=== PATIENT | female | born 1950 | race Caucasian/White ===

== ENCOUNTER 2017-03-27 18:02 | Inpatient (IN) | payer MEDICARE, MEDICAID ==
[~2017-03-27] VITALS: Ht 167.6 cm; Wt 123.9 kg
[2017-03-27] VITALS (7 sets, daily range): BP systolic 123–165; BP diastolic 65–103
[~2017-03-27 18:02] MED LIST: AC500T PO; ALPR.25T PO; AMLO10TA82 PO; AMLO5TAB2 PO; AMOX-355 PO; ASP81CT PO; ATR20T PO; AZTH250C PO; BACL10TA PO; BSC10SU PR; BTH10T PO; BUDE10.2 IH; CALC-250 PO; CHOL10003 PO; CINN500C2 PO; CITA10TA12 PO; CITA40TA19 PO; CLOP75TA PO; CRAN500T2 PO; HYDR-3812 PO; HYDR118S10 PO; INSU100I29 SQ; INSU100V16 SQ; LIRA0.6P SQ; LISI40TA PO; LUBI24CA7 PO; MAGN-47 PO; MELA1TAB10 PO; METF500T PO; METO-395 PO; NA P133E35 PR; NEBI20TA2 PO; NFNEB10T PO; NIAC500T29 PO; OMEG-109 PO; OMEG1CAP58 PO; ONDN4T PO; PANT40SU PO; PANT40TA3 PO; POLY17PO23 GT; SAXA2.5T PO; VALE530C PO; VITA150T PO; ZINC56CR2 TP; ZLP10T PO; [UNRECOGNIZED DRUG - CODE] PO; [UNRECOGNIZED DRUG - CODE] PO; [UNRECOGNIZED DRUG - OTHER] PO
[2017-03-27] MEDS ORDERED: RT-ALBUTEROL/IPRATROPIUM 3 ML (DUONEB) VIAL ONE (18:29)
[2017-03-27] MEDS ORDERED: ONDANSETRON 4 MG/2 ML (SDV) Z0FRAN IVP ONE (18:30)
[2017-03-27 18:34] LABS: BASOPHILS # (AUTO) 0.1 10^3/uL (0.0-0.1); BASOPHILS % (AUTO) 1 % (0-10); EOSINOPHILS # (AUTO) 0.3 10^3/uL (0.0-0.3); EOSINOPHILS % (AUTO) 2 % (0-10); LYMPHOCYTES # (AUTO) 6.7 X 10^3 (1.0-4.0); LYMPHOCYTES % (AUTO) 35 % (12-44); MEAN CORPUSCULAR HEMOGLOBIN 23 PG (25-34); MEAN CORPUSCULAR HGB CONC 31 G/DL (32-36); MEAN CORPUSCULAR VOLUME 76 FL (80-99); MEAN PLATELET VOLUME 9.5 FL (7.4-10.4); MONOCYTES # (AUTO) 1.6 X 10^3 (0.0-1.0); MONOCYTES % (AUTO) 9 % (0-12); NEUTROPHILS # (AUTO) 10.2 X 10^3 (1.8-7.8); NEUTROPHILS % (AUTO) 54 % (42-75); PLATELET COUNT 313 10^3/uL (130-400)
[2017-03-27 18:45] LABS: ABG HCO3 20 MMOL/L (23-27); ABG OXYGEN SATURATION 99 % (94-100); ABG PCO2 53 MMHG (35-45); ABG PO2 195 MMHG (79-93); ABG TCO2 21.5 MMOL/L (21.0-31.0)
[2017-03-27] MEDS ORDERED: RT-ALBUTEROL/IPRATROPIUM 3 ML (DUONEB) VIAL INH ONE (18:45)
[2017-03-27 18:46] LABS: ALANINE AMINOTRANSFERASE 155 U/L (0-55); ALBUMIN 3.8 GM/DL (3.2-4.5); ANION GAP 17 MMOL/L (5-14); ASPARTATE AMINO TRANSFERASE 218 U/L (5-34); BILIRUBIN,TOTAL 0.4 MG/DL (0.1-1.0); BLOOD UREA NITROGEN 18 MG/DL (7-18); BUN/CREATININE RATIO 11; CARBON DIOXIDE 16 MMOL/L (21-32); CHLORIDE 99 MMOL/L (98-107); CREATININE SERUM 1.58 MG/DL (0.60-1.30); GFR ESTIMATED 33; GLUCOSE 327 MG/DL (70-105); MAGNESIUM 2.1 MG/DL (1.8-2.4); POTASSIUM 4.5 MMOL/L (3.6-5.0); SODIUM 132 MMOL/L (135-145); TOTAL PROTEIN 8.3 GM/DL (6.4-8.2)
--- NOTE | 2017-03-27 18:46 | Diagnostic Imaging Report ---
EXAM: Chest 1 view, AP/PA only. INDICATION: CODE BLUE. COMPARISON: Chest radiograph from 04/09/2016. FINDINGS: Low lung volumes. Cardiomegaly. Normal central pulmonary vascularity. Mild atelectasis or infiltrate in the medial right lung base. No definite pleural effusion. No pneumothorax. No acute osseous findings. IMPRESSION: 1. Cardiomegaly, similar to the prior exam. Normal pulmonary vascularity. 2. Mild atelectasis or infiltrate in the medial right lung base. Dictated by: Dictated on workstation # [id number]
[2017-03-27 18:47] LABS: BAND NEUTROPHILS 0 %; BASOPHILS % (MANUAL) 0 %; EOSINOPHILS % (MANUAL) 1 %; LYMPHOCYTES % (MANUAL) 52 %; NEUTROPHILS % (MANUAL) 47 %
[2017-03-27 18:47] LABS: ALLENS TEST YES-POS; PATIENT TEMP 98
[2017-03-27 18:52] LABS: TROPONIN I < 0.30 NG/ML (<0.30)
[2017-03-27] MEDS ORDERED: NS IV 1000 ML 1,000 ML IV ONE (19:07)
[2017-03-27 19:57] LABS: ABG BASE EXCESS -2.9 MMOL/L (-2.5-2.5); ABG HCO3 22 MMOL/L (23-27); ABG OXYGEN SATURATION 99 % (94-100); ABG PCO2 44 MMHG (35-45); ABG PO2 121 MMHG (79-93); ABG TCO2 23.6 MMOL/L (21.0-31.0)
[2017-03-27 19:59] LABS: ABG PH 7.33 (7.37-7.43); ALLENS TEST YES-POS
[2017-03-27 20:07] LABS: BILIRUBIN,URINE NEGATIVE (NEGATIVE); KETONES,URINE NEGATIVE (NEGATIVE); LEUKOCYTE ESTERASE ,URINE NEGATIVE (NEGATIVE); NITRITE,URINE NEGATIVE (NEGATIVE); PH,URINE 5 (5-9); PROTEIN,URINE 3+ (NEGATIVE); UROBILINOGEN,URINE NORMAL (NORMAL)
--- NOTE | 2017-03-27 20:14 | ED General ---
General Chief Complaint: Unresponsive Stated Complaint: CODE BLUE Nursing Triage Note: PT BROUGHT TO ED FROM [facility] WITH C/O CHOKING AND UNRESPONSIVE WHILE EATING. UPON ARRIVAL TO ED, PT IS RESPONSIVE TO PAINFUL STIMULI AND IS BREATHING WITH ASSISTANCE PER BVM. Nursing Sepsis Screen: No Definite Risk Source of Information: Patient Exam Limitations: No Limitations History of Present Illness Time Seen by Provider: 18:03 Initial Comments This 66-year-old woman presents to the emergency room via EMS after having an [facility]responsive episode at the [facility]. She was at the supper table when she suddenly became unresponsive. When EMS arrived the patient had a pulse but was not breathing. BVM assistance with ventilation was started as they did not yet know patient's CODE STATUS. Patient was later found to have a DO NOT RESUSCITATE order. Upon arrival she was still requiring BVM ventilation and was minimally responsive. Patient gradually became more alert and eventually was able to talk. Initial cause of her unresponsive episode was uncertain. Fingerstick blood sugar was elevated. Allergies and Home Medications Allergies Coded Allergies: sulfamethoxazole (Verified Allergy, Unknown, 04/09/16) trimethoprim (Verified Allergy, Unknown, 04/09/16) Home Medications Acetaminophen 500 Mg Tablet, 1,000 MG PO Q6H PRN for headache/fever, (Reported) take 2 (500mg) tabs Amlodipine Besylate 5 Mg Tablet, 5 MG PO DAILY, (Reported) Amoxicillin/Potassium Clav 1 Each Tablet, 1 TAB PO BID for 7 Days, Ref 1 Prescribed by: SULMA HICKMAN on 04/16/16 1141 Atorvastatin 20 Mg Tablet, 20 MG PO HS, (Reported) Bethanechol Chloride 10 Mg Tablet, 10 MG PO BID, (Reported) Bisacodyl 10 Mg Supp, 10 MG [place] DAILY PRN for CONSTIPATION, (Reported) PRN Budesonide/Formoterol Fumarate 10.2 Gm Hfa.aer.ad, 2 PUFF IH BID, (Reported) Cholecalciferol 5,000 Unit Capsule, 5,000 UNIT PO HS, (Reported) Cinnamon Bark 500 Mg Capsule, 500 MG PO DAILY, (Reported) Citalopram Hydrobromide 10 Mg Tablet, 10 MG PO DAILY, (Reported) Cranberry Extract 500 Mg Tablet, 1,000 MG PO DAILY, (Reported) take 2 (500mg) tabs Hydrocodone/Acetaminophen 1 Each Tablet, 1-2 TAB PO Q4H PRN for PAIN, #40 Ref 0 Prescribed by: SULMA HICKMAN on 04/16/16 1141 Insulin Aspart 100 Unit/1 Ml Susp, 0 SQ TIDAC, (Reported) sliding scale A Insulin Detemir 100 Unit/1 Ml Insuln.pen, 65 UNIT SQ HS, (Reported) Liraglutide 0.6 Mg/0.1 Ml Pen.injctr, 1.8 MG SQ DAILY, (Reported) Magnesium Hydroxide 400 Mg/5 Ml Oral.susp, 400 MG PO DAILY PRN for CONSTIPATION, (Reported) PRN Melatonin/Pyridoxine 1 Each Tablet, 3 MG PO HS, (Reported) Methylsulfonylmethane 1,000 Mg Tablet, 2,000 MG PO HS, (Reported) take 2 (1,000mg) tab Metoprolol Succinate 100 Mg Tab.er.24h, 100 MG PO DAILY, (Reported) Multivits W-Fe,Other Min/Lut 1 Each Tablet, 1 EACH PO TID, (Reported) Niacin 500 Mg Tablet.er, 500 MG PO HS, (Reported) Shiro-3 Fatty Acids/Fish Oil 1 Each Capsule, 1,200 MG PO DAILY, (Reported) Pantoprazole Sodium 40 Mg Tablet.dr, 40 MG PO DAILY, (Reported) Saxagliptin HCl 2.5 Mg Tablet, 2.5 MG PO DAILY, (Reported) Valerian Root 450 Mg Capsule, 450 MG PO DAILY PRN for ANXIETY, (Reported) Vitamin B Complex & Vit C No.4 150 Mg Tablet, 150 MG PO DAILY, (Reported) Zinc Oxide 60 Gm Cream..g., 2 GM TP PRN PRN for RASH, (Reported) apply to buttocks for gaulding/redness [comfortone] , 3 TAB PO HS, (Reported) Constitutional: see HPI EENTM: no symptoms reported Respiratory: see HPI Cardiovascular: see HPI Gastrointestinal: no symptoms reported Genitourinary: no symptoms reported Musculoskeletal: no symptoms reported Skin: no symptoms reported Psychiatric/Neurological: See HPI, Other (left-sided paralysis from prior stroke) Hematologic/Lymphatic: No Symptoms Reported Immunological/Allergic: no symptoms reported Past Shkztxr-Hmfhxc-Fxfhta Hx Patient Social History Alcohol Use: Denies Use Recreational Drug Use: No Smoking Status: Former Smoker 2nd Hand Smoke Exposure: No Recent Foreign Travel: No Contact w/Someone Who Travel: No Recent Infectious Disease Expo: No Recent Hopitalizations: No Surgeries HX Surgeries: Yes (NASAL SX, RT TKR, FOOT SX) Respiratory Hx Respiratory Disorders: Yes Respiratory Disorders: Sleep Apnea, COPD Cardiovascular Hx Cardiac Disorders: Yes Cardiac Disorders: Coronary Artery Disease (nonobstructive disease per prior catheter), High Cholesterol Neurological Hx Neurological Disorders: Yes Neurological Disorders: Stroke (with left-sided paralysis) 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 System : No Hx 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 Disorders: No Genitourinary Hx Genitourinary Disorders: No (HX OF KIDNEY FAILURE IN 2012) Genitourinary Disorders: Kidney Stones Gastrointestinal Hx Gastrointestinal Disorders: Yes Gastrointestinal Disorders: Hemorrhoids Musculoskeletal Hx Musculoskeletal Disorders: Yes (LT SIDE WEAKNESS FROM STROKE) Endocrine Hx Endocrine Disorders: Yes Endocrine Disorders: Diabetes, Insulin dep HEENT HX ENT Disorders: No (FULL SET OF DENTURES) Cancer Hx Cancer: No Psychosocial Hx Psychiatric Problems: No Integumentary HX Skin/Integumentary Disorder: No Blood Transfusions Hx Blood Disorders: No Physical Exam Vital Signs Vital Sign - Last 12Hours 03/27/17 03/27/17 18:02 18:44 Temp 98.0 Pulse 90 Resp 22 B/P (MAP) 154/92 Pulse Ox 94 O2 Delivery Ambu Bag O2 Flow Rate 10.00 Capillary Refill : Less Than 3 Seconds General Appearance: No Apparent Distress, WD/WN HEENT: PERRL/EOMI, Normal ENT Inspection, Pharynx Normal, Other (difficulty with speech, dysarthria) Neck: Normal Inspection Respiratory: Lungs Clear, Normal Breath Sounds, No Accessory Muscle Use, No Respiratory Distress Cardiovascular: Regular Rate, Rhythm, No Edema, No Murmur Gastrointestinal: Normal Bowel Sounds, Non Tender, Soft Extremity: Normal Inspection, No Pedal Edema Neurologic/Psychiatric: Alert, Oriented x3, is/it 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 manager II-XII Norm as Tested Skin: Normal Color, Warm/Dry Focused Exam Lactic Acid Level Progress/Results/Core Measures Results/Orders Lab Results Laboratory Tests Test 03/27/17 18:04 03/27/17 18:08 03/27/17 18:20 03/27/17 19:47 Range/Units White Blood Count 19.0 H 4.3-11.0 10^3/uL Red Blood Count 4.90 4.35-5.85 10^6/uL Hemoglobin 11.4 L 11.5-16.0 G/DL Hematocrit 37 35-52 % Mean Corpuscular Volume 76 L 80-99 FL Mean Corpuscular Hemoglobin 23 L 25-34 PG Mean Corpuscular Hemoglobin Concent 31 L 32-36 G/DL Red Cell Distribution Width 16.0 H 10.0-14.5 % Platelet Count 313 130-400 10^3/uL Mean Platelet Volume 9.5 7.4-10.4 FL Neutrophils (%) (Auto) 54 42-75 % Lymphocytes (%) (Auto) 35 12-44 % Monocytes (%) (Auto) 9 0-12 % Eosinophils (%) (Auto) 2 0-10 % Basophils (%) (Auto) 1 0-10 % Neutrophils # (Auto) 10.2 H 1.8-7.8 X 10^3 Lymphocytes # (Auto) 6.7 H 1.0-4.0 X 10^3 Monocytes # (Auto) 1.6 H 0.0-1.0 X 10^3 Eosinophils # (Auto) 0.3 0.0-0.3 10^3/uL Basophils # (Auto) 0.1 0.0-0.1 10^3/uL Neutrophils % (Manual) 47 % Lymphocytes % (Manual) 52 % Monocytes % (Manual) 0 % Eosinophils % (Manual) 1 % Basophils % (Manual) 0 % Band Neutrophils 0 % Blood Morphology Comment NORMAL Sodium Level 132 L 135-145 MMOL/L Potassium Level 4.5 3.6-5.0 MMOL/L Chloride Level 99 98-107 MMOL/L Carbon Dioxide Level 16 L 21-32 MMOL/L Anion Gap 17 H 5-14 MMOL/L Blood Urea Nitrogen 18 7-18 MG/DL Creatinine 1.58 H 0.60-1.30 MG/DL Estimat Glomerular Filtration Rate 33 BUN/Creatinine Ratio 11 Glucose Level 327 H 70-105 MG/DL Calcium Level 9.0 8.5-10.1 MG/DL Magnesium Level 2.1 1.8-2.4 MG/DL Total Bilirubin 0.4 0.1-1.0 MG/DL Aspartate Amino Transf (AST/SGOT) 218 H 5-34 U/L Alanine Aminotransferase (ALT/SGPT) 155 H 0-55 U/L Alkaline Phosphatase 159 H 40-136 U/L Troponin I < 0.30 <0.30 NG/ML Total Protein 8.3 H 6.4-8.2 GM/DL Albumin 3.8 3.2-4.5 GM/DL Glucometer 326 H 70-110 MG/DL Blood Gas Puncture Site right radial RT RAD Blood Gas Patient Temperature 98 98.0 Arterial Blood pH 7.20 *L 7.33 *L 7.37-7.43 Arterial Blood Partial Pressure CO2 53 H 44 35-45 MMHG Arterial Blood Partial Pressure O2 195 H 121 H 79-93 MMHG Arterial Blood HCO3 20 L 22 L 23-27 MMOL/L Arterial Blood Total CO2 21.5 23.6 21.0-31.0 MMOL/L Arterial Blood Oxygen Saturation 99 99 94-100 % Arterial Blood Base Excess -7.0 L -2.9 L -2.5-2.5 MMOL/L Jai Test YES-POS YES-POS Blood Gas Ventilator Setting NO NO Blood Gas Inspired Oxygen 100% 60% Test 03/27/17 20:00 03/27/17 20:25 03/27/17 22:17 03/27/17 23:18 Range/Units Urine Color YELLOW Urine Clarity SLIGHTLY CLOUDY Urine pH 5 5-9 Urine Specific [place] 1.020 1.016-1.022 Urine Protein 3+ H NEGATIVE Urine Glucose (UA) 3+ H NEGATIVE Urine Ketones NEGATIVE NEGATIVE Urine Nitrite NEGATIVE NEGATIVE Urine Bilirubin NEGATIVE NEGATIVE Urine Urobilinogen NORMAL NORMAL MG/DL Urine Leukocyte Esterase NEGATIVE NEGATIVE Urine RBC (Auto) 2+ H NEGATIVE Urine RBC 5-10 H /HPF Urine WBC 0-2 /HPF Urine Crystals PRESENT H /LPF Urine Amorphous Sediment FEW ELISHA URATES H /LPF Urine Bacteria TRACE /HPF Urine Casts NONE /LPF Urine Mucus NEGATIVE /LPF Urine Culture Indicated NO Lactic Acid Level 1.96 0.50-2.00 MMOL/L Glucometer 271 H 262 H 70-110 MG/DL My Orders Orders - SAMINA HOWARD MD Ondansetron Injection (Zofran Injectio (03/27/17 18:30) Cbc With Automated Diff (03/27/17 18:27) Comprehensive Metabolic Panel (03/27/17 18:27) Magnesium (03/27/17 18:27) Troponin I (03/27/17 18:27) Ua Culture If Indicated (03/27/17 18:) Accucheck Stat ONCE (03/27/17 18:) Saline Lock/Iv-Start (03/27/17 18:27) Ekg Tracing (03/27/17 18:27) O2 (03/27/17 18:27) Monitor-Rhythm Ecg Trace Only (03/27/17 18:27) Chest 1 View, Ap/Pa Only (03/27/17 18:27) Manual Differential (03/27/17 18:04) Albuterol/Ipra Inhalation Soln (Duoneb I (03/27/17 18:29) Arterial Blood Gas (03/27/17 18:39) Albuterol/Ipra Inhalation Soln (Duoneb I (03/27/17 18:45) Aguiar Cath Insertion (03/27/17 18:52) Ns Iv 1000 Ml (Sodium Chloride 0.9%) (03/27/17 19:07) Arterial Blood Gas (03/27/17 19:33) Arterial Blood Gas (03/27/17 19:48) Blood Culture (03/27/17 20:14) Lactic Acid Analyzer (03/27/17 20:14) Piperacillin Sodium/Tazobactam (Zosyn Vi (03/27/17 20:45) Ketorolac Injection (Toradol Injection) (03/27/17 20:45) Medications Given in ED Current Medications Medications Dose Ordered Sig/Helen Route Start Time Stop Time Status Last Admin Dose Admin Albuterol/ Ipratropium 3 ml ONCE ONCE INH 03/27/17 18:45 03/27/17 20:48 DC 03/27/17 18:43 3 ML Ketorolac Tromethamine 15 mg ONCE ONCE IVP 03/27/17 20:45 03/27/17 20:46 DC 03/27/17 21:08 15 MG Piperacillin Sod/ Tazobactam Sod 4.5 gm/Sodium Chloride 100 ml @ 200 mls/hr ONCE ONCE IV 03/27/17 20:45 03/27/17 21:14 DC 03/27/17 21:07 200 MLS/HR Sodium Chloride 1,000 ml @ 0 mls/hr Q0M ONCE IV 03/27/17 19:07 03/27/17 19:08 DC 03/27/17 19:12 0 MLS/HR Vital Signs/I&O Vital Sign - Last 12Hours 03/27/17 03/27/17 03/27/17 03/27/17 18:02 18:02 18:44 18:49 Temp 98.0 Pulse 90 93 Resp 23 B/P (MAP) 154/92 Pulse Ox 94 66 100 100 O2 Delivery Ambu Bag Room Air Non Rebreather O2 Flow Rate 10.00 03/27/17 03/27/17 03/27/17 03/27/17 18:55 21:02 21:03 21:08 Temp 98.7 98.7 Pulse 87 84 83 Resp 22 20 20 Pulse Ox 60 60 100 O2 Delivery NIV Bilevel 03/27/17 03/27/17 03/27/17 03/27/17 21:19 21:23 21:23 21:38 Temp 98.1 Pulse 85 85 85 Resp 16 B/P (MAP) 147/89 132/76 Pulse Ox 95 92 93 O2 Delivery Nasal Cannula Nasal Cannula Nasal Cannula O2 Flow Rate 4.00 3.50 3.50 03/27/17 03/27/17 03/27/17 03/27/17 21:45 22:00 22:00 22:08 Pulse 86 86 Resp 16 B/P (MAP) 145/65 151/68 Pulse Ox 93 95 93 93 O2 Delivery Nasal Cannula Nasal Cannula Nasal Cannula Nasal Cannula O2 Flow Rate 3.50 3.50 3.50 3.50 03/27/17 03/27/17 03/27/17 03/27/17 22:30 22:50 23:00 23:30 Pulse 87 87 95 Resp 22 B/P (MAP) 123/103 150/83 165/75 Pulse Ox 93 95 97 94 O2 Delivery Nasal Cannula Nasal Cannula Nasal Cannula Nasal Cannula O2 Flow Rate 3.50 4.00 3.50 3.50 03/28/17 03/28/17 03/28/17 03/28/17 00:00 00:00 00:30 01:00 Pulse 96 99 101 Resp 22 23 19 B/P (MAP) 170/90 149/78 150/76 Pulse Ox 95 95 95 95 O2 Delivery Nasal Cannula Nasal Cannula Nasal Cannula Nasal Cannula O2 Flow Rate 3.50 3.50 3.50 3.50 03/28/17 03/28/17 03/28/17 01:00 02:00 02:06 Pulse 88 98 Resp 21 B/P (MAP) 147/72 Pulse Ox 94 94 O2 Delivery Nasal Cannula Nasal Cannula O2 Flow Rate 3.50 3.00 Blood Pressure Mean: 112 Point of Care Testing Finger Stick Blood Glucose: 326 ECG Initial ECG Impression Date: Mar 27, 2017 Initial ECG Impression Time: 18:23 Initial ECG Rate: 87 Initial ECG Rhythm: Normal Sinus Initial ECG Intervals: Normal Initial ECG Impression: Normal Comment Normal sinus rhythm with no ST elevation or depression. No abnormal intervals or axis deviation. Diagnostic Imaging Diagonstic Imaging: Xray Plain Films/CT/US/NM/MRI: chest Comments Chest x-ray viewed by me and report reviewed. See report below: NAME: MIRIAM R[facility]RIGUES [facility] REC#: [id number] PT STATUS: REG ER : 1950 PHYSICIAN: SAMINA HOWARD MD ADMIT DATE: 03/27/17/ER Draft Date of Exam:03/27/17 CHEST 1 VIEW, AP/PA ONLY EXAM: Chest 1 view, AP/PA only. INDICATION: CODE BLUE. COMPARISON: Chest radiograph from 04/09/2016. FINDINGS: Low lung volumes. Cardiomegaly. Normal central pulmonary vascularity. Mild atelectasis or infiltrate in the medial right lung base. No definite pleural effusion. No pneumothorax. No acute osseous findings. IMPRESSION: 1. Cardiomegaly, similar to the prior exam. Normal pulmonary vascularity. 2. Mild atelectasis or infiltrate in the medial right lung base. Dictated on workstation # [id number] Dict: 03/27/17 1843 Trans: 03/27/17 1846 [facility] [id number] Interpreted by: DELICIA PUENTES MD Critical Care Note Critical Care Start Time: 18:03 Stop Time: 21:03 Progress Patient gradually became more alert and was eventually alert and oriented 3. She was eventually able to state that she did choke at the time of the episode. Patient received a liter of IV fluids. Blood cultures and lactic acid are being drawn due to leukocytosis. A dose of Zosyn will be administered as aspiration cannot be ruled out. Patient seems to believe she choked at the [facility] and family reports Heimlich maneuver and chest compressions were performed either by [facility] staff for law-enforcement/fire on scene. A DuoNeb treatment was administered and patient was placed on BiPAP. Patient was trialed off of BiPAP but eventually desaturated. BiPAP was continued. Repeat ABG showed improvement in blood gases. I had a lengthy conversation about her DO NOT RESUSCITATE order with the patient and DURABLE POWER OF INFORMATION SECURITY RISK ANALYST which is her son. Patient wishes to retract the DO NOT RESUSCITATE. Departure Communication Time/Spoke to Admitting Phy: 20:53 Communication Case reviewed with Dr. Mendiola. She requested admission to the ICU with continuation of Zosyn and scheduled nebulizer treatments. She also requested inhaled budesonide. Systemic steroids will be avoided for the time being due to diabetes. BiPAP will be continued with adjustment to response. Blood sugars will be monitored and sliding scale insulin ordered. Patient is requesting something for pain due to chest wall pain from the compressions. A 15 mg dose of Toradol will be given initially for initial therapy. Narcotics will be avoided to hopefully prevent respiratory suppression. Diet will be kept nothing by mouth except for ice chips. Patient has retracted her DO NOT RESUSCITATE and wishes to be full code. Bridging orders have been written per this discussion. Impression Impression: Primary Impression: Respiratory arrest Additional Impressions: Unresponsive episode Elevated transaminase level Acute renal failure Qualified Codes: N17.9 - Acute kidney failure, unspecified Leukocytosis Qualified Codes: D72.829 - Elevated white blood cell count, unspecified Aspiration into airway Qualified Codes: T17.908A - Unspecified foreign body in respiratory tract, part unspecified causing other injury, initial encounter Chest wall pain Disposition: ADMITTED INPATIENT Condition: Improved Departure-Patient Inst. Referrals: MARIAN BRANDT MD (PCP/Family) Primary Care Physician SAMINA HOWARD MD Mar 27, 2017 20:14
[2017-03-27 20:16] LABS: WBC,URINE 0-2 /HPF
[2017-03-27] MEDS ORDERED: KETOROLAC 30 MG/ML VIAL IVP ONE (20:45)
[2017-03-27] MEDS ORDERED: PIPERACILLIN SODIUM/TAZOBACTAM 4.5 GM in NS (IVPB) 100 ML IV ONE (20:45)
[2017-03-27] MEDS ORDERED: RT-ALBUTEROL/IPRATROPIUM 3 ML (DUONEB) VIAL INH PRN ×2 (22:00→23:59)
[2017-03-27] MEDS ORDERED: NS IV 1000 ML 1,000 ML IV SCH (22:00)
[2017-03-27] MEDS ORDERED: inSUlin (REGULAR) HUMAN 1 UNIT/0.01 ML (CHARGE PER UNIT) SC SCH (22:00)
[2017-03-27] MEDS ORDERED: PANTOPRAZOLE 40 MG/10 ML (PROTONIX) VIAL IV ONE (22:00)
[2017-03-27] MEDS: RT-ALBUTEROL/IPRATROPIUM 3 ML (DUONEB) VIAL INH SCH (22:08)
[2017-03-27] MEDS ORDERED: PANTOPRAZOLE 40 MG/10 ML (PROTONIX) VIAL ONE (22:08)
[2017-03-27] MEDS ORDERED: ONDANSETRON 4 MG/2 ML (SDV) Z0FRAN IV PRN (22:15)
[2017-03-27] MEDS ORDERED: PIPERACILLIN/TAZOBACTAM 4.5 GM/NS100 ML IVPB IV ONE ×2 (22:15)
[2017-03-27] MEDS: PANTOPRAZOLE 40 MG/10 ML (PROTONIX) VIAL IV SCH (22:20)
[2017-03-27] MEDS: NS IV 1000 ML 1,000 ML IV SCH (22:22)
[2017-03-27] MEDS ORDERED: RT-BUDESONIDE NEBS 0.5 MG/2ML (PULMICORT) AMP ONE (22:42)
[2017-03-28] VITALS (23 sets, daily range): BP systolic 100–170; BP diastolic 42–92
[2017-03-28] MEDS: KETOROLAC 15 MG/ML VIAL IVP PRN ×4 (00:18→22:06)
[2017-03-28] MEDS: inSUlin (REGULAR) HUMAN 1 UNIT/0.01 ML (CHARGE PER UNIT) SC SCH ×3 (01:02→08:18)
[2017-03-28] MEDS: RT-ALBUTEROL/IPRATROPIUM 3 ML (DUONEB) VIAL INH SCH ×6 (02:06→22:13)
[2017-03-28 03:55] LABS: BASOPHILS % (AUTO) 0 % (0-10); EOSINOPHILS % (AUTO) 0 % (0-10); LYMPHOCYTES # (AUTO) 1.3 X 10^3 (1.0-4.0); LYMPHOCYTES % (AUTO) 11 % (12-44); MEAN CORPUSCULAR HEMOGLOBIN 23 PG (25-34); MEAN CORPUSCULAR HGB CONC 31 G/DL (32-36); MEAN CORPUSCULAR VOLUME 75 FL (80-99); MEAN PLATELET VOLUME 9.9 FL (7.4-10.4); MONOCYTES # (AUTO) 0.9 X 10^3 (0.0-1.0); MONOCYTES % (AUTO) 7 % (0-12); NEUTROPHILS # (AUTO) 10.2 X 10^3 (1.8-7.8); NEUTROPHILS % (AUTO) 82 % (42-75); PLATELET COUNT 207 10^3/uL (130-400); RED BLOOD COUNT 3.96 10^6/uL (4.35-5.85); RED CELL DISTRIBUTION WIDTH 15.8 % (10.0-14.5); WHITE BLOOD COUNT 12.4 10^3/uL (4.3-11.0)
[2017-03-28 04:21] LABS: ALBUMIN 3.1 GM/DL (3.2-4.5); BILIRUBIN,TOTAL 0.4 MG/DL (0.1-1.0); CALCIUM 8.3 MG/DL (8.5-10.1); CREATININE SERUM 1.46 MG/DL (0.60-1.30); MAGNESIUM 1.6 MG/DL (1.8-2.4); PHOSPHORUS 3.3 MG/DL (2.3-4.7); POTASSIUM 4.3 MMOL/L (3.6-5.0); TOTAL PROTEIN 6.4 GM/DL (6.4-8.2)
[2017-03-28] MEDS: PIPERACILLIN/TAZOBACTAM 4.5 GM/NS100 ML IVPB IV SCH ×6 (04:29→22:06)
[2017-03-28] MEDS ORDERED: inSUlin (REGULAR) HUMAN 1 UNIT/0.01 ML (CHARGE PER UNIT) SC SCH (06:00)
[2017-03-28] MEDS: KCL 20 MEQ TAB (K-DUR) PO SCH (06:07)
[2017-03-28] MEDS: POTASSIUM CL 10MEQ/50ML IVPB 50 ML IV SCH (06:07)
[2017-03-28] MEDS: MAGNESIUM 1 GM/100 ML IVPB 100 ML IV SCH ×3 (06:47→07:51)
[2017-03-28] MEDS: NS IV 1000 ML 1,000 ML IV SCH ×2 (06:48→14:43)
[2017-03-28] MEDS: RT-BUDESONIDE NEBS 0.5 MG/2ML (PULMICORT) AMP INH SCH ×4 (07:02→19:54)
[2017-03-28] MEDS: PANTOPRAZOLE 40 MG/10 ML (PROTONIX) VIAL IV SCH (08:18)
[2017-03-28] MEDS ORDERED: PANTOPRAZOLE 40 MG/10 ML (PROTONIX) VIAL IV SCH (09:00)
--- NOTE | 2017-03-28 09:17 | Diagnostic Imaging Report ---
INDICATION: Respiratory distress and leukocytosis. COMPARISON: Comparison made with prior examination 03/27/2017. FINDINGS: There is cardiomegaly. There is some venous congestion. There is patchy right basilar infiltrate. There is no pleural effusion or pneumothorax. Mediastinum is unremarkable. IMPRESSION: 1. Patchy right base infiltrate suspect for pneumonia. 2. Cardiomegaly and mild central pulmonary venous congestion. Dictated by: Dictated on workstation # [id number]
[2017-03-28] MEDS ORDERED: ASPI-999 PO (09:29)
[2017-03-28] MEDS ORDERED: HYDR28OI2 TP ×2 (09:29)
[2017-03-28] MEDS ORDERED: CLOP75TA69 PO (09:29)
[2017-03-28] MEDS ORDERED: [UNRECOGNIZED DRUG - OTHER] PO (09:29)
[2017-03-28] MEDS ORDERED: CINN500C2 PO (09:29)
[2017-03-28] MEDS ORDERED: PETR5OIN3 TP (09:29)
[2017-03-28] MEDS ORDERED: Valerian PO (09:29)
[2017-03-28] MEDS ORDERED: HYDR-700 PO (09:29)
[2017-03-28] MEDS ORDERED: SODI104S3 NSEACH (09:29)
[2017-03-28] MEDS ORDERED: [UNRECOGNIZED DRUG - OTHER] TOP (09:29)
[2017-03-28] MEDS ORDERED: [UNRECOGNIZED DRUG - OTHER] PR (09:29)
[2017-03-28] MEDS ORDERED: PANT20TA2 PO (09:29)
[2017-03-28] MEDS ORDERED: BISACODYL 10 MG SUPP (DULCOLAX) PR PRN (09:45)
[2017-03-28] MEDS ORDERED: SALINE NASAL SPRAY (OCEAN) 45 ML BTL PRN (09:45)
[2017-03-28] MEDS ORDERED: ENOXAPARIN 30 MG/0.3 ML (LOVENOX) SYR SC SCH ×2 (09:45→10:00)
[2017-03-28] MEDS: PANTOPRAZOLE 20 MG TABLET (PROTONIX) PO SCH (09:49)
--- NOTE | 2017-03-28 09:58 | History & Physical-Hospitalist ---
HPI History of Present Illness: HPI/Chief Complaint this is a 66-year-old white female with a past medical history of a right sided shanice infarct in 2011. She had been in near her usual state of health when eating a hamburger she choked on it requiring CPR and resuscitative measures. The patient doesn't remember certain segments of this but does remember choking on the hamburger. She denies having had trouble swallowing since her stroke but thinks she just may have bitten off too big of a piece of hamburger. She was transported to the emergency room by ambulance and is a resident of [facility]. At the time of my interview this morning the patient is alert and oriented and taking ice chips easily. She does not appear to be in respiratory distress but does complain of chest pain with deep inspiration. Source: patient, old records Exam Limitations: no limitations Date Seen 03/28/17 Time Seen by Provider: 08:15 Attending Physician Angie Cabrera MD PCP Vikash Hudson MD Referring Physician Date of Admission Mar 27, 2017 at 20:53 Home Medications & Allergies Home Medications Reviewed patient Home Medication Reconciliation Form Allergies Allergies Coded Allergies sulfamethoxazole (Verified Allergy, Unknown, 04/09/16) trimethoprim (Verified Allergy, Unknown, 04/09/16) Past Rfzxbeg-Vkzmdx-Ksokun Hx Patient Social History Marrital Status: Employed/Student: retired Alcohol Use: Denies Use Recreational Drug Use: No Smoking Status: Former Smoker Type Used: Cigarettes 2nd Hand Smoke Exposure: No Physical Abuse Screen: No Sexual Abuse: No Recent Foreign Travel: No Contact w/other who traveled: No Recent Hopitalizations: No Recent Infectious Disease Expo: No Seasonal Allergies Seasonal Allergies: No Surgeries HX Surgeries: Yes (NASAL SX, RT TKR, FOOT SX) Surgeries: Joint Replacement (right knee) Respiratory Hx Respiratory Disorders: Yes Respiratory Disorders: COPD Cardiovascular Hx Cardiovascular Disorders: Yes Cardiac Disorders: Coronary Artery Disease (nonobstructive disease per prior catheter), High Cholesterol Neurological Hx Neurological Disorders: Yes Neurological Disorders: Stroke (with left-sided paralysis) 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 System : No Hx 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 Disorders: No Genitourinary Hx Genitourinary Disorders: No (HX OF KIDNEY FAILURE IN 2013) Genitourinary Disorders: Kidney Stones, Renal Failure Gastrointestinal Hx Gastrointestinal Disorders: Yes Gastrointestinal Disorders: Hemorrhoids, Ulcer Musculoskeletal Hx Musculoskeletal Disorders: Yes (LT SIDE WEAKNESS FROM STROKE) Endocrine Hx Endocrine Disorders: Yes Endocrine Disorders: Diabetes, Insulin dep HEENT HX ENT Disorders: No (FULL SET OF DENTURES) Loss of Vision: Denies Hearing Impairment: Denies Cancer Hx Cancer: No Psychosocial Hx Psychiatric Problems: No Integumentary HX Skin/Integumentary Disorder: No Blood Transfusions Hx Blood Disorders: No Adverse Reaction to a Blood Tr: No (No bllod transfusions d/t JW) Family Medical History Significant Family History: CVA, Diabetes Family Hx: Completed stroke 19 FATHER G8 BROTHER Diabetes mellitus G8 BROTHER Hypertension 19 FATHER 19 MOTHER Review of Systems Constitutional: see HPI EENTM: no symptoms reported Respiratory: cough, other (pleuritic chest pain) Cardiovascular: no symptoms reported Gastrointestinal: no symptoms reported Genitourinary: no symptoms reported Musculoskeletal: other (left flaccid paralysis) Skin: no symptoms reported Psychiatric/Neurological: No Symptoms Reported Physical Exam Physical Exam Vital Signs Vital Sign - Last 12Hours 03/27/17 03/27/17 18:02 18:44 Temp 98.0 Pulse 90 Resp 22 B/P (MAP) 154/92 Pulse Ox 94 O2 Delivery Ambu Bag O2 Flow Rate 10.00 Capillary Refill : Less Than 3 Seconds General Appearance: No Apparent Distress, WD/WN, Obese Eyes: Bilateral Eye Normal Inspection HEENT: Normal ENT Inspection, Other (dentures upper and lower) Neck: Limited Range of Motion Respiratory: Crackles, Rhonci Cardiovascular: Regular Rate, Rhythm, No Gallop, No Murmur Gastrointestinal: Normal Bowel Sounds, Non Tender, Soft Rectal: Deferred Back: Normal Inspection Extremity: No Calf Tenderness, Pedal Edema, Other (flaccid left upper extremity and lower extremity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: Alert, Oriented x3, Normal Mood/Affect, Motor Weakness Skin: Normal Color, Warm/Dry Lymphatic: No Adenopathy Results Results/Procedures Lab Laboratory Tests 03/27/17 18:04 03/28/17 03:38 Assessment/Plan Admission Diagnosis 1. Aspiration with resultant respiratory arrest troponin was negative and doubt cardiac etiology although the patient did receive CPR chest x-ray shows right lung infiltrate. 2. Previous right sided shanice infarct with left-sided hemiparesis 3. type II diabetes on insulin [id number] 4. Elevated liver function tests most likely secondary to passive congestion although it cannot be ruled out that she has nonalcoholic steatosis 5. Renal insufficiency with a creatinine clearance of 33 that it's calculated. 6. Hypertension 7. Hyperlipidemia At this point will treat with IV antibiotics and pulmonary toilet. This was discussed with surgery and there is at this time no indication to proceed with bronchoscopy. We'll proceed with a dysphagia screen and advance diet as tolerated. Clinical Quality Measures DVT/VTE Risk/Contraindication: Risk Factor Score Per Nursin RFS Level Per Nursing on Admit: 4+=Very High ANGIE CABRERA MD Mar 28, 2017 09:58
[2017-03-28] MEDS ORDERED: ENOXAPARIN 40 MG/0.4 ML (LOVENOX) SYR SC SCH (10:00)
[2017-03-28] MEDS: ASPIRIN 81 MG CHEW (CHILDREN'S ASA) PO SCH (10:50)
[2017-03-28] MEDS: meTOprolol SUCCINATE 100 MG (TOPROL XL) TAB PO SCH (10:50)
[2017-03-28] MEDS: amLODIPine 5 MG (NORVASC) TAB PO SCH (10:50)
[2017-03-28] MEDS: CLOPIDOGREL 75 MG (PLAVIX) TABLET PO SCH (10:50)
[2017-03-28] MEDS: inSUlin DETERMIR 1 UNIT/0.01 ML (LEVEMIR) CHARGE PER UNIT SQ SCH ×2 (10:51→22:06)
[2017-03-28] MEDS: BETHANECHOL 10 MG (URECHOLINE) TAB PO SCH ×2 (10:51→22:05)
[2017-03-28] MEDS: inSUlin ASPART (NovoLOG) 1 UNIT/0.01 ML (CHARGE PER UNIT) SQ SCH ×3 (11:26→22:06)
[2017-03-28] MEDS ORDERED: RT-ADVAIR HFA 115/21 MCG PER PUFF IH SCH ×2 (11:41→21:00)
[2017-03-28] MEDS: ACETAMINOPHEN 500 MG TAB (TYLENOL) PO PRN (14:14)
[2017-03-28] MEDS: ATORVASTATIN 20 MG (LIPITOR) TABLET PO SCH (22:05)
[2017-03-28] MEDS ORDERED: MELATONIN 3 MG TABLET PO ONE (23:45)
[2017-03-29] VITALS (13 sets, daily range): BP systolic 132–164; BP diastolic 67–104
[2017-03-29] MEDS: RT-ALBUTEROL/IPRATROPIUM 3 ML (DUONEB) VIAL INH SCH ×6 (02:11→22:21)
[2017-03-29] MEDS: RT-BUDESONIDE NEBS 0.5 MG/2ML (PULMICORT) AMP INH SCH ×4 (02:11→22:21)
[2017-03-29 04:16] LABS: BASOPHILS # (AUTO) 0.1 10^3/uL (0.0-0.1); BASOPHILS % (AUTO) 1 % (0-10); EOSINOPHILS # (AUTO) 0.2 10^3/uL (0.0-0.3); EOSINOPHILS % (AUTO) 3 % (0-10); LYMPHOCYTES # (AUTO) 1.9 X 10^3 (1.0-4.0); LYMPHOCYTES % (AUTO) 25 % (12-44); MEAN CORPUSCULAR HEMOGLOBIN 23 PG (25-34); MEAN CORPUSCULAR HGB CONC 30 G/DL (32-36); MEAN CORPUSCULAR VOLUME 76 FL (80-99); MEAN PLATELET VOLUME 9.9 FL (7.4-10.4); MONOCYTES # (AUTO) 0.8 X 10^3 (0.0-1.0); MONOCYTES % (AUTO) 10 % (0-12); NEUTROPHILS # (AUTO) 4.6 X 10^3 (1.8-7.8); NEUTROPHILS % (AUTO) 61 % (42-75); PLATELET COUNT 174 10^3/uL (130-400); RED BLOOD COUNT 3.67 10^6/uL (4.35-5.85); RED CELL DISTRIBUTION WIDTH 16.2 % (10.0-14.5); WHITE BLOOD COUNT 7.6 10^3/uL (4.3-11.0)
[2017-03-29 04:31] LABS: CALCIUM 8.2 MG/DL (8.5-10.1); CREATININE SERUM 1.47 MG/DL (0.60-1.30); MAGNESIUM 2.1 MG/DL (1.8-2.4); PHOSPHORUS 3.6 MG/DL (2.3-4.7)
[2017-03-29] MEDS: KETOROLAC 15 MG/ML VIAL IVP PRN (04:38)
[2017-03-29] MEDS: PIPERACILLIN/TAZOBACTAM 4.5 GM/NS100 ML IVPB IV SCH ×6 (04:39→20:19)
[2017-03-29] MEDS: POTASSIUM CL 10MEQ/50ML IVPB 50 ML IV SCH (04:41)
[2017-03-29] MEDS: MAGNESIUM 1 GM/100 ML IVPB 100 ML IV SCH (04:41)
[2017-03-29] MEDS: KCL 20 MEQ TAB (K-DUR) PO SCH (04:41)
--- NOTE | 2017-03-29 06:21 | Pulmonary Consultation ---
History of Present Illness History of Present Illness Date of Consultation 03/29/17 06:17 Time Seen by Provider: 06:17 Date of Admission History of Present Illness 66yo With hx of right sided shanice infarct 2011 presented from [facility] after choking on a hamburger. Pt is s/p CODE BLUE requiring ACLS with chest compressions. No prior hx like this. She complains of pleuritic CP and improving SOB. Allergies and Home Medications Allergies Coded Allergies: sulfamethoxazole (Verified Allergy, Unknown, 04/09/16) trimethoprim (Verified Allergy, Unknown, 04/09/16) Home Medications Acetaminophen 500 Mg Tablet, 1,000 MG PO Q6H PRN for headache/fever, (Reported) take 2 (500mg) tabs Amlodipine Besylate 5 Mg Tablet, 5 MG PO DAILY, (Reported) Aspirin 81 Mg Tab.chew, 81 MG PO DAILY, (Reported) Atorvastatin 20 Mg Tablet, 20 MG PO HS, (Reported) Bethanechol Chloride 10 Mg Tablet, 10 MG PO BID, (Reported) Bisacodyl 10 Mg Supp, 10 MG OH DAILY PRN for CONSTIPATION, (Reported) Budesonide/Formoterol Fumarate 10.2 Gm Hfa.aer.ad, 2 PUFF IH BID, (Reported) Cholecalciferol 5,000 Unit Capsule, 5,000 UNIT PO HS, (Reported) Cinnamon Bark 500 Mg Capsule, 1,000 MG PO DAILY, (Reported) Citalopram Hydrobromide 10 Mg Tablet, 10 MG PO DAILY, (Reported) Clopidogrel Bisulfate 75 Mg Tablet, 75 MG PO DAILY, (Reported) Cranberry Extract 500 Mg Tablet, 1,000 MG PO DAILY, (Reported) take 2 (500mg) tabs Hydrocortisone Acetate 28 Gm Oint...g., 1 GM TP Q8H PRN for Gaulding/Redness, ( Reported) Apply to buttocks topically every 8 Hours prn for gaulding/redness Hydrocortisone Acetate 28 Gm Oint...g., 1 GM TP DAILY PRN for RASH, (Reported) Apply to rash to buttocks topically one time a day for rash/itching Hydroxyzine HCl 25 Mg Tablet, 25 MG PO Q8H PRN for ITCHING, (Reported) Insulin Aspart 100 Unit/1 Ml Susp, 0 SQ ACHS, (Reported) sliding scale 60-150 give 0 Units 151-200 give 0 Units 201-250 give 3 Units 251-300 give 5 Units 301-350 give 7 Units 351-400 give 9 Units above 400 call the physician Insulin Detemir 100 Unit/1 Ml Insuln.pen, 40 UNIT SQ BID, (Reported) Liraglutide 0.6 Mg/0.1 Ml Pen.injctr, 1.8 MG SQ DAILY, (Reported) Magnesium Hydroxide 400 Mg/5 Ml Oral.susp, 400 MG PO DAILY PRN for CONSTIPATION, (Reported) Melatonin/Pyridoxine 1 Each Tablet, 3 MG PO HS, (Reported) Methylsulfonylmethane 1,000 Mg Tablet, 2,000 MG PO HS, (Reported) take 2 (1,000mg) tab Metoprolol Succinate 100 Mg Tab.er.24h, 100 MG PO DAILY, (Reported) Multivits W-Fe,Other Min/Lut 1 Each Tablet, 1 EACH PO TID, (Reported) Niacin 500 Mg Tablet.er, 500 MG PO HS, (Reported) [place]-3 Fatty Acids/Fish Oil 1 Each Capsule, 1,200 MG PO DAILY, (Reported) Pantoprazole Sodium 20 Mg Tablet.dr, 20 MG PO DAILY, (Reported) Petrolatum,White 5 Gm Oint.pack, 1 GM TP BID, (Reported) Apply to buttocks topically every shift for skin condition Saxagliptin HCl 2.5 Mg Tablet, 2.5 MG PO DAILY, (Reported) Sodium Chloride 104 Ml [place], 2 SPRAYS NSEACH Q4H PRN for Nasal Moisture, ( Reported) Vitamin B Complex & Vit C No.4 150 Mg Tablet, 150 MG PO DAILY, (Reported) Zinc Oxide 60 Gm Cream..g., 2 GM TP PRN PRN for RASH, (Reported) apply to buttocks for gaulding/redness [Good Sense] , 1 APPLIC OH Q12H PRN for constipation, (Reported) GoodSense Hemorrhoidal ointment 0.25-14-79.9% insert 1 application rectally every 12 hours prn for constipation with bleeding use BID after each bleeding BM until healed. [Valerian] , 530 MG PO DAILY PRN PRN for ANXIETY, (Reported) [comforTone] , 3 TAB PO HS, (Reported) [digize oil] , 1 DROP TOP UD, (Reported) Apply topically to skin as needed for supplement related functional disorders of the stomach as needed for upset stomach, there is no dosage for this oil, may be used topically or dabbed inside the mouth on check, may keep at the bedside and self administer for digestive difficulties Past Wbmtsue-Eobwks-Zrsaxc Hx Patient Social History Alcohol Use: Denies Use Recreational Drug Use: No Smoking Status: Former Smoker Type Used: Cigarettes 2nd Hand Smoke Exposure: No Recent Foreign Travel: No Contact w/Someone Who Travel: No Recent Infectious Disease Expo: No Recent Hopitalizations: No Physical Abuse Screen: No Sexual Abuse: No Seasonal Allergies Seasonal Allergies: No Surgeries HX Surgeries: Yes (NASAL SX, RT TKR, FOOT SX) Surgeries: Joint Replacement (right knee) Respiratory Hx Respiratory Disorders: Yes Respiratory Disorders: Sleep Apnea, COPD Cardiovascular Hx Cardiac Disorders: Yes Cardiac Disorders: Coronary Artery Disease (nonobstructive disease per prior catheter), High Cholesterol Neurological Hx Neurological Disorders: Yes Neurological Disorders: Stroke (with left-sided paralysis) 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 System : No Hx 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 Disorders: No Genitourinary Hx Genitourinary Disorders: No (HX OF KIDNEY FAILURE IN 2012) Genitourinary Disorders: Kidney Stones, Renal Failure Gastrointestinal Hx Gastrointestinal Disorders: Yes Gastrointestinal Disorders: Hemorrhoids, Ulcer Musculoskeletal Hx Musculoskeletal Disorders: Yes (LT SIDE WEAKNESS FROM STROKE) Endocrine Hx Endocrine Disorders: Yes Endocrine Disorders: Diabetes, Insulin dep HEENT HX ENT Disorders: No (FULL SET OF DENTURES) Loss of Vision: Denies Hearing Impairment: Denies Cancer Hx Cancer: No Psychosocial Hx Psychiatric Problems: No Integumentary HX Skin/Integumentary Disorder: No Blood Transfusions Hx Blood Disorders: No Adverse Reaction to a Blood Tr: No (No bllod transfusions d/t JW) Family Medical History Significant Family History: CVA, Diabetes Family Medial History: Completed stroke 19 FATHER G8 BROTHER Diabetes mellitus G8 BROTHER Hypertension 19 FATHER 19 MOTHER Review of Systems Time Seen by Provider: 07:15 Constitutional: Malaise, Weakness, No: Chills, Fever, Other, Sweats Eyes: No: Conjunctivae inflammation, Eyelid inflammation, Other, Pain, Redness , Vision change ENT: No: Ear discharge, Ear pain, Mouth pain, Mouth swelling, Nose congestion, Nose discharge, Nose pain, Other, Throat pain, Throat swelling Respiratory: Cough, SOB with excertion, Shortness of breath, Sputum Cardiovascular: Chest Pain, Orthopnea, Palpitations Gastrointestinal: No: Abdominal Pain, Constipation, Diarrhea, Hematochezia, Melena, Nausea, Other, Vomiting Neurological: Change in speech, Confusion, Incoordination, Weakness Exam Exam Vital Signs Date Time Temp Pulse Resp B/P (MAP) Pulse Ox O2 Delivery O2 Flow Rate FiO2 03/29/17 06:00 72 19 141/79 91 Nasal Cannula 2.00 03/29/17 05:00 72 20 136/67 92 Nasal Cannula 2.00 03/29/17 04:00 73 18 132/74 93 Nasal Cannula 2.00 03/29/17 04:00 Nasal Cannula 2.00 03/29/17 03:00 70 20 132/75 94 Nasal Cannula 2.00 03/29/17 02:17 98 Nasal Cannula 2.00 03/29/17 02:11 94 Nasal Cannula 2.00 03/29/17 02:00 75 17 134/78 93 Nasal Cannula 2.00 03/29/17 01:00 72 03/29/17 01:00 74 19 136/75 93 Nasal Cannula 2.00 03/29/17 00:00 Nasal Cannula 2.00 03/29/17 00:00 98.6 03/29/17 00:00 77 21 144/70 93 Nasal Cannula 2.00 03/28/17 23:00 79 17 159/85 94 Nasal Cannula 2.00 03/28/17 22:18 86 32 97 Nasal Cannula 2.00 03/28/17 22:13 95 Nasal Cannula 3.00 03/28/17 22:00 78 22 163/87 95 Nasal Cannula 3.00 03/28/17 21:00 85 22 153/73 94 Nasal Cannula 3.00 03/28/17 20:08 98 Nasal Cannula 3.00 03/28/17 20:00 75 20 142/75 98 Nasal Cannula 3.00 03/28/17 20:00 98 Nasal Cannula 3.00 03/28/17 20:00 Nasal Cannula 3.00 03/28/17 19:55 94 Nasal Cannula 3.00 03/28/17 19:00 82 03/28/17 19:00 80 22 133/71 95 Nasal Cannula 3.00 03/28/17 18:00 82 18 112/87 94 Nasal Cannula 3.00 03/28/17 16:04 97.6 76 12 133/42 95 Nasal Cannula 3.00 03/28/17 16:00 Nasal Cannula 3.00 03/28/17 15:00 79 22 160/67 96 Nasal Cannula 3.00 03/28/17 14:37 95 Nasal Cannula 3.00 03/28/17 14:00 79 11 134/85 95 Nasal Cannula 3.00 03/28/17 13:00 81 03/28/17 13:00 81 17 100/77 96 Nasal Cannula 3.50 03/28/17 12:00 81 13 149/78 95 Nasal Cannula 3.50 03/28/17 11:30 97.8 Nasal Cannula 3.50 03/28/17 11:30 Nasal Cannula 3.50 03/28/17 11:00 82 8 153/84 95 Nasal Cannula 3.50 03/28/17 10:28 95 Nasal Cannula 3.00 03/28/17 10:00 85 23 159/90 95 Nasal Cannula 3.50 03/28/17 09:00 91 18 163/92 95 Nasal Cannula 3.50 03/28/17 08:00 87 23 135/89 96 Nasal Cannula 3.50 03/28/17 07:54 97.7 Nasal Cannula 3.50 03/28/17 07:54 Nasal Cannula 3.50 03/28/17 07:02 98 Nasal Cannula 3.00 03/28/17 07:00 88 12 122/63 98 Nasal Cannula 3.50 03/28/17 07:00 88 03/28/17 06:55 95 Nasal Cannula 3.00 I & O 03/29/17 07:00 Intake Total 4130 ml Output Total 2500 ml Balance 1630 ml General Appearance: No Apparent Distress, WD/WN, Obese HEENT: Normal ENT Inspection, Other (dentures upper and lower) Neck: Limited Range of Motion Respiratory: Crackles, Rhonci Cardiovascular: Regular Rate, Rhythm, No Gallop, No Murmur Capillary Refill: Less Than 3 Seconds Extremity: No Calf Tenderness, Pedal Edema, Other (flaccid left upper extremity and lower extremity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: Alert, Oriented x3, Normal Mood/Affect, Motor Weakness Skin: Normal Color, Warm/Dry Lymphatic: No Adenopathy Results Lab Laboratory Tests 03/27/17 18:04 03/28/17 03:38 03/29/17 03:34 Assessment/Plan Assessment/Plan aspiration s/p CODE Blue/respiratory arrest -Continue zosyn Hypoxia with dyspnea and atelectasis -Monitor CXR -Check BNP Anemia -Monitor -Check occult stool DM II BRAYDEN PT is doing better will transfer to 4th floor with tele. 255 Clinical Quality Measures DVT/VTE Risk/Contraindication: Risk Factor Score Per Nursin RFS Level Per Nursing on Admit: 4+=Very High AMNA WRIGHT DO Mar 29, 2017 06:21
[2017-03-29] MEDS: NS IV 1000 ML 1,000 ML IV SCH ×2 (06:31→23:08)
--- NOTE | 2017-03-29 08:39 | Diagnostic Imaging Report ---
INDICATION: Hypertensive encephalopathy and cerebral infarct. TECHNIQUE: A frontal chest was obtained at 4:35 AM. COMPARISON: 03/28/2017. FINDINGS: There is cardiomegaly. There is mild central vascular prominence. There is no focal consolidation, pneumothorax, or pleural fluid. IMPRESSION: Cardiomegaly and mild central vascular prominence. No focal consolidation, pneumothorax, or pleural fluid. Dictated by: Dictated on workstation # [id number]
[2017-03-29] MEDS: PANTOPRAZOLE 40 MG/10 ML (PROTONIX) VIAL IV SCH (10:10)
[2017-03-29] MEDS: inSUlin ASPART (NovoLOG) 1 UNIT/0.01 ML (CHARGE PER UNIT) SQ SCH ×3 (10:10→22:00)
[2017-03-29] MEDS: inSUlin DETERMIR 1 UNIT/0.01 ML (LEVEMIR) CHARGE PER UNIT SQ SCH ×2 (10:10→22:00)
[2017-03-29] MEDS: BETHANECHOL 10 MG (URECHOLINE) TAB PO SCH ×2 (10:11→20:20)
[2017-03-29] MEDS: ASPIRIN 81 MG CHEW (CHILDREN'S ASA) PO SCH (10:11)
[2017-03-29] MEDS: PANTOPRAZOLE 20 MG TABLET (PROTONIX) PO SCH (10:11)
[2017-03-29] MEDS: meTOprolol SUCCINATE 100 MG (TOPROL XL) TAB PO SCH (10:11)
[2017-03-29] MEDS: CLOPIDOGREL 75 MG (PLAVIX) TABLET PO SCH (10:11)
[2017-03-29] MEDS: amLODIPine 5 MG (NORVASC) TAB PO SCH (10:11)
[2017-03-29] MEDS: ACETAMINOPHEN 500 MG TAB (TYLENOL) PO PRN ×2 (11:27→17:06)
--- NOTE | 2017-03-29 17:21 | Progress Note-Hospitalist ---
Standard Progress Note Progress Notes/Assess & Plan Date Seen 03/29/17 Time Seen by Provider: 15:05 Diagnosis 1. Aspiration with resultant respiratory arrest troponin was negative and doubt cardiac etiology although the patient did receive CPR chest x-ray shows right lung infiltrate. 2. Previous right sided shanice infarct with left-sided hemiparesis 3. type II diabetes on insulin [id number] 4. Elevated liver function tests most likely secondary to passive congestion although it cannot be ruled out that she has nonalcoholic steatosis 5. Renal insufficiency with a creatinine clearance of 33 that it's calculated. 6. Hypertension 7. Hyperlipidemia At this point will treat with IV antibiotics and pulmonary toilet. This was discussed with surgery and there is at this time no indication to proceed with bronchoscopy. We'll proceed with a dysphagia screen and advance diet as tolerated. Assess & Plan/Chief Complaint The patient is a 66-year-old white female who resides at [facility]. Immediately prior to her admission she apparently choked on a bolus of hamburger and bone. She subsequently suffered a cardiac arrest and was resuscitated and brought to the emergency room. This despite the fact that she was a filed DO NOT RESUSCITATE. She was placed in the ICU and the has rebounded nicely. She was transferred to the floor today and is feeling very much in her usual state of affairs. Chest x-ray shows no evidence of pneumonia. She is afebrile. White blood count is normal range. Physical exam: We have had a rather obese white female who is alert and JOLLY. There is a mild speech abnormality. Lungs are clear to auscultation. CV is regular without murmur. Impression: Apparent respiratory arrest prior to presentation in the emergency room. This is stated to have been triggered by choking on a hamburger. 2.previous shanice stroke with left-sided residua. Plan: Consider discharge and return to [facility] tomorrow Labs Laboratory Tests 03/27/17 18:04 03/28/17 03:38 03/29/17 03:34 SHARLENE POSEY MD Mar 29, 2017 17:21
[2017-03-29] MEDS: ATORVASTATIN 20 MG (LIPITOR) TABLET PO SCH (20:20)
[2017-03-30 00:40] VITALS: BP 164/86
[2017-03-30] MEDS: ACETAMINOPHEN 500 MG TAB (TYLENOL) PO PRN (02:05)
[2017-03-30] MEDS: RT-ALBUTEROL/IPRATROPIUM 3 ML (DUONEB) VIAL INH SCH ×4 (02:48→10:54)
[2017-03-30 03:26] VITALS: BP 160/79
[2017-03-30] MEDS: PIPERACILLIN/TAZOBACTAM 4.5 GM/NS100 ML IVPB IV SCH ×4 (04:15→12:03)
[2017-03-30] MEDS: RT-BUDESONIDE NEBS 0.5 MG/2ML (PULMICORT) AMP INH SCH ×2 (04:38→06:32)
[2017-03-30 04:53] LABS: BASOPHILS # (AUTO) 0.1 10^3/uL (0.0-0.1); BASOPHILS % (AUTO) 1 % (0-10); EOSINOPHILS # (AUTO) 0.3 10^3/uL (0.0-0.3); EOSINOPHILS % (AUTO) 3 % (0-10); LYMPHOCYTES # (AUTO) 1.5 X 10^3 (1.0-4.0); LYMPHOCYTES % (AUTO) 15 % (12-44); MEAN CORPUSCULAR HEMOGLOBIN 23 PG (25-34); MEAN CORPUSCULAR HGB CONC 30 G/DL (32-36); MEAN CORPUSCULAR VOLUME 76 FL (80-99); MEAN PLATELET VOLUME 9.8 FL (7.4-10.4); MONOCYTES # (AUTO) 0.9 X 10^3 (0.0-1.0); MONOCYTES % (AUTO) 9 % (0-12); NEUTROPHILS # (AUTO) 7.4 X 10^3 (1.8-7.8); NEUTROPHILS % (AUTO) 73 % (42-75); PLATELET COUNT 196 10^3/uL (130-400); RED BLOOD COUNT 3.87 10^6/uL (4.35-5.85); WHITE BLOOD COUNT 10.1 10^3/uL (4.3-11.0)
[2017-03-30 05:13] LABS: CALCIUM 8.8 MG/DL (8.5-10.1); CREATININE SERUM 1.36 MG/DL (0.60-1.30); POTASSIUM 4.6 MMOL/L (3.6-5.0)
[2017-03-30] MEDS: inSUlin ASPART (NovoLOG) 1 UNIT/0.01 ML (CHARGE PER UNIT) SQ SCH ×2 (06:09→12:04)
[2017-03-30 08:00] VITALS: BP 167/82
[2017-03-30] MEDS: meTOprolol SUCCINATE 100 MG (TOPROL XL) TAB PO SCH (08:52)
[2017-03-30] MEDS: CLOPIDOGREL 75 MG (PLAVIX) TABLET PO SCH (08:52)
[2017-03-30] MEDS: amLODIPine 5 MG (NORVASC) TAB PO SCH (08:52)
[2017-03-30] MEDS: ASPIRIN 81 MG CHEW (CHILDREN'S ASA) PO SCH (08:52)
[2017-03-30] MEDS: inSUlin DETERMIR 1 UNIT/0.01 ML (LEVEMIR) CHARGE PER UNIT SQ SCH (08:53)
[2017-03-30] MEDS: PANTOPRAZOLE 20 MG TABLET (PROTONIX) PO SCH (08:56)
[2017-03-30] MEDS: BETHANECHOL 10 MG (URECHOLINE) TAB PO SCH (08:56)
--- NOTE | 2017-03-30 09:37 | Pulmonary Progress Note ---
Subjective Time Seen by Provider: 09:15 Subjective/Events-last exam No complications noted. Exam Exam Vital Signs Date Time Temp Pulse Resp B/P (MAP) Pulse Ox O2 Delivery O2 Flow Rate FiO2 03/30/17 08:00 97 Nasal Cannula 2.00 03/30/17 06:39 97 Nasal Cannula 2.00 03/30/17 06:33 92 Nasal Cannula 2.00 03/30/17 03:26 98.7 73 22 160/79 94 Nasal Cannula 2.00 03/30/17 02:48 92 Nasal Cannula 2.00 03/30/17 01:00 72 03/30/17 00:40 99.2 71 20 164/86 95 Nasal Cannula 2.00 03/29/17 22:29 92 Nasal Cannula 2.00 03/29/17 22:24 92 Nasal Cannula 2.00 03/29/17 20:20 99.4 79 20 145/75 94 Nasal Cannula 2.00 03/29/17 20:00 Nasal Cannula 2.00 03/29/17 19:02 93 Nasal Cannula 2.00 03/29/17 19:00 72 03/29/17 16:00 98.6 85 18 133/75 95 Nasal Cannula 2.00 03/29/17 14:29 100 Nasal Cannula 2.00 03/29/17 14:29 92 Nasal Cannula 2.00 03/29/17 13:21 77 03/29/17 12:00 98.4 84 16 155/78 94 Nasal Cannula 2.00 03/29/17 10:25 94 Nasal Cannula 2.00 03/29/17 10:00 81 24 93 Nasal Cannula 2.00 I & O 03/30/17 07:00 Intake Total 1740 ml Output Total 400 ml Balance 1340 ml General Appearance: No Apparent Distress, WD/WN, Obese HEENT: Normal ENT Inspection, Other (dentures upper and lower) Neck: Limited Range of Motion Respiratory: Crackles, Rhonci Cardiovascular: Regular Rate, Rhythm, No Gallop, No Murmur Capillary Refill: Less Than 3 Seconds Extremity: No Calf Tenderness, Pedal Edema, Other (flaccid left upper extremity and lower extremity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: Alert, Oriented x3, Normal Mood/Affect, Motor Weakness Skin: Normal Color, Warm/Dry Lymphatic: No Adenopathy Results Lab Laboratory Tests 03/29/17 03:34 03/30/17 04:33 Assessment/Plan Assessment/Plan aspiration s/p CODE Blue/respiratory arrest -Continue zosyn Hypoxia with dyspnea and atelectasis -Monitor CXR -Check BNP Anemia -Monitor -Check occult stool DM II BRAYDEN PT is doing better will transfer to 4th floor with tele. Clinical Quality Measures DVT/VTE Risk/Contraindication: Risk Factor Score Per Nursin RFS Level Per Nursing on Admit: 4+=Very High AMNA WRIGHT DO Mar 30, 2017 09:37
[2017-03-30] MEDS ORDERED: FUROSEMIDE 40 MG/4 ML INJ (LASIX) IVP NR (09:49)
--- NOTE | 2017-03-30 10:11 | Diagnostic Imaging Report ---
INDICATION: Respiratory arrest, aspiration, leukocytosis. TECHNIQUE: Single-view chest 4:30 AM. CORRELATION STUDY: 03/29/2017. FINDINGS: Heart size remains enlarged. The presence of pulmonary vascular congestion which appears changed from prior study. Likely minimal areas of atelectasis about the lung bases, possibility of superimposed infiltrate particularly in the right lower lobe not excluded. IMPRESSION: 1. Cardiac enlargement with vasculature slightly increased from prior study. 2. Areas of atelectasis versus less likely infiltrate, lung bases right greater than left. Dictated by: Dictated on workstation # [id number]
--- NOTE | 2017-03-30 10:36 | Progress Note-Hospitalist ---
Standard Progress Note Progress Notes/Assess & Plan Date Seen 03/30/17 Time Seen by Provider: 10:31 Diagnosis 1. Aspiration with resultant respiratory arrest troponin was negative and doubt cardiac etiology although the patient did receive CPR chest x-ray shows right lung infiltrate. 2. Previous right sided shanice infarct with left-sided hemiparesis 3. type II diabetes on insulin [id number] 4. Elevated liver function tests most likely secondary to passive congestion although it cannot be ruled out that she has nonalcoholic steatosis 5. Renal insufficiency with a creatinine clearance of 33 that it's calculated. 6. Hypertension 7. Hyperlipidemia At this point will treat with IV antibiotics and pulmonary toilet. This was discussed with surgery and there is at this time no indication to proceed with bronchoscopy. We'll proceed with a dysphagia screen and advance diet as tolerated. Assess & Plan/Chief Complaint The patient is alert and cheerful today. She is afebrile and vital signs are stable. She is ready and eager for plan transfer back to [facility]. Physical exam: The patient is alert and oriented. Lungs show distant breath sounds without rhonchi or rales. CV is regular without murmur. Abdomen is obese without tenderness. Extremities show the lower legs to be tanned with white feet, a product of sitting on the patio with [id number] on Impression: Respiratory arrest secondary to apparent aspiration of food bolus. 2.previous CVA with left-sided hemiparesis Plan: Return to [facility]. See discharge sequence for details Labs Laboratory Tests 03/29/17 03:34 03/30/17 04:33 SHARLENE POSEY MD Mar 30, 2017 10:36
--- NOTE | 2017-03-30 10:54 | Discharge Inst-Skilled Nursing ---
Discharge Inst-Skilled NF Chief Complaint this is a 66-year-old white female with a past medical history of a right sided shanice infarct in 2011. She had been in near her usual state of health when eating a hamburger she choked on it requiring CPR and resuscitative measures. The patient doesn't remember certain segments of this but does remember choking on the hamburger. She denies having had trouble swallowing since her stroke but thinks she just may have bitten off too big of a piece of hamburger. She was transported to the emergency room by ambulance and is a resident of [facility]. At the time of my interview this morning the patient is alert and oriented and taking ice chips easily. She does not appear to be in respiratory distress but does complain of chest pain with deep inspiration. Patient Instructions Patient Problems: Transient respiratory failure after apparent aspiration of food bolus 2.previous CVA with left-sided residua 3.diabetes mellitus type II insulin requiring Goal: Sikhism to previous state Consult/Follow Up/Orders Skilled NF Admit to: [facility] Certification (SNF) I certify that SNF services are required to be given on an inpatient basis because of the above named patient's need for nursing home care on a continuing basis for the conditions(s) for which he/she was receiving inpatient hospital services prior to his/her transfer to the SNF[facility] Order: Nursing Services, Time Lock Expert-Evaluate & Treat, Physical Therapy-Evaluate & Treat, Speech Language-Evaluate & Treat Discharge Diet: ADA Diet Daily Activity as Tolerated: Yes New & Resume Previous Orders Sharlene Posey Mar 30, 2017 10:50 Pneu Vac Indicated: Yes SHARLENE POSEY MD Mar 30, 2017 10:54
--- OUTSIDE RECORDS SUMMARY | 2017-04-04 04:04 | XMS REPORT | Continuity of Care Document ---
Author Author [facility] Organization [facility] Address Unknown Phone Unavailable Allergies Active Description Code Type Severity Reaction Onset Reported/Identified Relationship to Patient Clinical Status Yes NKANo Known Allergies NKA Miscellaneous Allergy Unknown N/ A 06/16/2008 Yes sulfamethoxazole [id number] Drug Allergy Unknown N/A 04/09/2016 Yes trimethoprim [id number] Drug Allergy Unknown N/A 04/09/2016 Medications Problems Date Dx Coded Attending Type Code Diagnosis Diagnosed By 01/11/2011 Ot 078.3 CAT-SCRATCH DISEASE 01/11/2011 Ot 891.0 OPEN WND KNEE/LEG/ANKLE 01/11/2011 Ot E000.8 OTHER EXTERNAL CAUSE STATUS 01/11/2011 Ot E849.0 ACCIDENT IN HOME 01/11/2011 Ot E906.3 ANIMAL BITE NEC 01/11/2011 Ot V06.1 [id number], COMBINED [ 11/03/2011 Ot 041.11 METHICILLIN SUSCEPTIBLE STAPHYLOCOCCUS A 11/03/2011 Ot 250.02 DIAB LATRELL WO COMPL, TYPE II OR UNSPEC TY 11/03/2011 Ot 272.4 HYPERLIPIDEMIA NEC/NOS 11/03/2011 Ot 342.90 UNSPEC HEMIPLEGIA HEMIPARESIS UNSPEC S 11/03/2011 Ot 401.9 HYPERTENSION NOS 11/03/2011 Ot 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 11/03/2011 Ot 564.00 UNSPEC CONSTIPATION 11/03/2011 Ot 599.0 URIN TRACT INFECTION NOS 11/03/2011 Ot 784.42 DYSPHONIA 11/03/2011 Ot V12.54 PERSONAL HX OF TIA, CEREBRAL INFARCTION 11/03/2011 Ot V58.69 OTH MED,LT,CURRENT USE 12/14/2011 Ot 250.00 DIAB LATRELL WO COMPL, TYPE II OR UNSPEC TY 12/14/2011 Ot 272.1 PURE HYPERGLYCERIDEMIA 12/14/2011 Ot 272.4 HYPERLIPIDEMIA NEC/NOS 12/14/2011 Ot 276.1 HYPOSMOLALITY 12/14/2011 Ot 278.00 OBESITY, NOS 12/14/2011 Ot 300.4 DYSTHYMIC DISORDER 12/14/2011 Ot 401.9 HYPERTENSION NOS 12/14/2011 Ot 433.10 CAROTID ARTERY OCCLUSION W O CEREBRAL IN 12/14/2011 Ot 438.20 LATE EFF-CEREBR DIS,HEMIPLEGIA AFFECTING 12/14/2011 Ot 438.82 OTH LATE EFF-CEREB DIS, DYSPHAGIA 12/14/2011 Ot 518.0 PULMONARY COLLAPSE 12/14/2011 Ot 584.9 ACUTE RENAL FAILURE, UNSPECIFIED 12/14/2011 Ot 596.54 NEUROGENIC BLADDER, NOT OTHERWISE SPECIF 12/14/2011 Ot 599.0 URIN TRACT INFECTION NOS 12/14/2011 Ot 787.21 DYSPHAGIA, ORAL PHASE 12/14/2011 Ot 788.20 RETENTION OF URINE NOS 12/14/2011 Ot V57.1 PHYSICAL THERAPY NEC 12/14/2011 Ot V57.21 ENCOUNTER FOR OCCUPATIONAL THERAPY 12/14/2011 Ot V57.3 CARE INVOLVING SPEECH-LANGUAGE THERAPY 12/14/2011 Ot V58.67 LONG-TERM (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 12/14/2011 Ot V85.39 BODY MASS INDEX 39.0-39.9, ADULT 02/04/2012 Ot 250.00 DIAB LATRELL WO COMPL, TYPE II OR UNSPEC TY 02/04/2012 Ot 272.4 HYPERLIPIDEMIA NEC/NOS 02/04/2012 Ot 278.01 MORBID OBESITY 02/04/2012 Ot 401.9 HYPERTENSION NOS 02/04/2012 Ot 794.30 ABN CARDIOVASC STUDY NOS 02/04/2012 Ot V12.54 PERSONAL HX OF TIA, CEREBRAL INFARCTION 02/04/2012 Ot V58.63 LONG-TERM(CURRENT)USE OF ANTIPLATELET/AN 02/04/2012 Ot V58.66 LONG-TERM (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 ASPIRIN 02/04/2012 Ot V58.67 LONG-TERM (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 02/04/2012 Ot V58.69 OTH MED,LT,CURRENT USE 02/04/2012 Ot V85.38 BODY MASS INDEX 38.0-38.9, ADULT 10/02/2014 MARIAN BRANDT MD Ot 599.0 10/03/2014 SWATHI RAMIREZ Ot 397.0 10/03/2014 SWATHI RAMIREZ Ot 401.9 10/03/2014 SWATHI RAMIREZ Ot 424.0 10/03/2014 KYLE PA, SWATHI Victor Ot 429.9 10/03/2014 KYLE PA, SWATHI Victor Ot V12.54 12/24/2014 Ot 401.9 12/24/2014 Ot 434.91 12/24/2014 Ot 786.09 12/24/2014 KYLE PA, SWATHI K Ot 397.0 12/24/2014 KYLE PA, SWATHI K Ot 401.9 12/24/2014 KYLE PA, SWATHI K Ot 424.0 12/24/2014 KYLE PA, SWATHI K Ot 429.9 12/24/2014 KYLE PA, SWATHI Victor Ot V12.54 12/24/2014 KARLY CHOWDHURY, MARIAN Victor Ot 599.0 12/24/2014 Ot 401.9 12/24/2014 Ot 434.91 12/24/2014 Ot 786.09 12/24/2014 KYLE PA, SWATHI Victor Ot 397.0 12/24/2014 KYLE PA, SWATHI Victor Ot 401.9 12/24/2014 KYLE PA, SWATHI Victor Ot 424.0 12/24/2014 KYLE PA, SWATHI Victor Ot 429.9 12/24/2014 KYLE PA, SWATHI Victor Ot V12.54 12/24/2014 KARLY CHOWDHURY, MARIAN Victor Ot 599.0 12/24/2014 KARLY CHOWDHURY, MARIAN Victor Ot 599.0 12/24/2014 KARLY CHOWDHURY, MARIAN Victor Ot 599.0 01/11/2015 KARLY CHOWDHURY, MARIAN Victor Ot 599.0 03/13/2016 Ot 401.9 HYPERTENSION NOS 03/13/2016 Ot 434.91 CEREBRAL ART OCCLUSION NOS W CEREBRAL IN 03/13/2016 Ot 786.09 RESPIRATORY ABNORM NEC 03/13/2016 KYLE FISHMAN, SWATHI Victor Ot 397.0 TRICUSPID VALVE DISEASE 03/13/2016 KYLE FISHMAN, SWATHI K Ot 401.9 HYPERTENSION NOS 03/13/2016 KYLE FISHMAN, SWATHI Victor Ot 424.0 MITRAL VALVE DISORDER 03/13/2016 KYLE FISHMAN, SWATHI Victor Ot 429.9 HEART DISEASE NOS 03/13/2016 SWATHI RAMIREZ Ot V12.54 PERSONAL HX OF TIA, CEREBRAL INFARCTION 03/13/2016 MARIAN BRANDT MD Ot 599.0 URIN TRACT INFECTION NOS 03/13/2016 LEONIDAS, MARKO J HUNTING SALES ASSOCIATE Ot R22.0 LOCALIZED SWELLING, MASS AND LUMP, HEAD 03/13/2016 Ot 401.9 HYPERTENSION NOS 03/13/2016 Ot 434.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 ART OCCLUSION NOS W CEREBRAL IN 03/13/2016 Ot 786.09 RESPIRATORY ABNORM NEC 03/13/2016 SWATHI RAMIREZ Ot 397.0 TRICUSPID VALVE DISEASE 03/13/2016 SWATHI RAMIREZ Ot 401.9 HYPERTENSION NOS 03/13/2016 SWATHI RAMIREZ Ot 424.0 MITRAL VALVE DISORDER 03/13/2016 SWATHI RAMIREZ Ot 429.9 HEART DISEASE NOS 03/13/2016 SWATHI RAMIREZ Ot V12.54 PERSONAL HX OF TIA, CEREBRAL INFARCTION 03/13/2016 MARIAN BRANDT MD Ot 599.0 URIN TRACT INFECTION NOS 03/13/2016 LEONIDAS, MARKO J HUNTING SALES ASSOCIATE Ot R22.0 LOCALIZED SWELLING, MASS AND LUMP, HEAD 03/18/2016 LEONIDAS, MARKO J HUNTING SALES ASSOCIATE Ot R22.0 LOCALIZED SWELLING, MASS AND LUMP, HEAD 04/06/2016 LEONIDAS, MARKO J HUNTING SALES ASSOCIATE Ot R22.0 LOCALIZED SWELLING, MASS AND LUMP, HEAD 04/09/2016 ESTEPHANIE STANFORD MD Ot J32.9 CHRONIC SINUSITIS, UNSPECIFIED 04/09/2016 ESTEPHANIE STANFORD MD Ot J33.9 NASAL POLYP, UNSPECIFIED 04/09/2016 ESTEPHANIE STANFORD MD Ot Z01.818 ENCOUNTER FOR OTHER PREPROCEDURAL EXAMIN 04/09/2016 ESTEPHANIE STANFORD MD Ot Z11.2 ENCOUNTER FOR SCREENING FOR OTHER BACTER 04/10/2016 ESTEPHANIE STANFORD MD Ot J32.9 CHRONIC SINUSITIS, UNSPECIFIED 04/10/2016 ESTEPHANIE STANFORD MD Ot J33.9 NASAL POLYP, UNSPECIFIED 04/10/2016 ESTEPHANIE STANFORD MD Ot Z01.818 ENCOUNTER FOR OTHER PREPROCEDURAL EXAMIN 04/10/2016 ESTEPHANIE STANFORD MD Ot Z11.2 ENCOUNTER FOR SCREENING FOR OTHER BACTER 04/10/2016 MARKO LAUREN HUNTING SALES ASSOCIATE Ot R22.0 LOCALIZED SWELLING, MASS AND LUMP, HEAD 04/16/2016 ESTEPHANIE STANFORD MD Ot E11.9 TYPE 2 DIABETES MELLITUS WITHOUT COMPLIC 04/16/2016 ESTEPHANIE STANFORD MD Ot J32.0 CHRONIC MAXILLARY SINUSITIS 04/16/2016 ESTEPHANIE STANFORD MD Ot J32.1 CHRONIC FRONTAL SINUSITIS 04/16/2016 ESTEPHANIE STANFORD MD Ot J32.2 CHRONIC ETHMOIDAL SINUSITIS 04/16/2016 ESTEPHANIE STANFORD MD Ot 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 CLERK (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 03/29/2017 BOBBI CABRERA MD Ot D64.9 ANEMIA, UNSPECIFIED 03/29/2017 BOBBI CABRERA MD Ot D72.829 ELEVATED WHITE BLOOD CELL COUNT, UNSPECI 03/29/2017 BOBBI CABRERA MD Ot E11.9 TYPE 2 DIABETES MELLITUS WITHOUT COMPLIC 03/29/2017 BOBBI CABRERA MD Ot E66.9 OBESITY, UNSPECIFIED 03/29/2017 BOBBI CABRERA MD Ot E78.00 PURE HYPERCHOLESTEROLEMIA, UNSPECIFIED 03/29/2017 BOBBI CABRERA MD Ot G47.30 SLEEP APNEA, UNSPECIFIED 03/29/2017 BOBBI CABRERA MD Ot I10 ESSENTIAL (PRIMARY) HYPERTENSION 03/29/2017 BOBBI CABRERA MD, Ot I25.10 ATHSCL HEART DISEASE OF [place] CORONARY 03/29/2017 BOBBI CABRERA MD Ot I69.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 03/29/2017 BOBBI CABRERA MD Ot J44.9 CHRONIC OBSTRUCTIVE PULMONARY DISEASE , U 03/29/2017 BOBBI CABRERA MD Ot J98.11 ATELECTASIS 03/29/2017 BOBBI CABRERA MD Ot N28.9 DISORDER OF KIDNEY AND URETER, UNSPECIFI 03/29/2017 BOBBI CABRERA MD Ot R07.89 OTHER CHEST PAIN 03/29/2017 BOBBI CABRERA MD Ot R09.2 RESPIRATORY ARREST 03/29/2017 BOBBI CABRERA MD Ot R47.1 DYSARTHRIA AND ANARTHRIA 03/29/2017 BOBBI CABRERA MD, Ot T17.920A FOOD IN RESP TRACT, PART UNSP CAUSING 03/29/2017 BOBBI CABRERA MD Ot Z68.42 BODY MASS INDEX (BMI) 45.0-49.9, ADULT 03/29/2017 BOBBI CABRERA MD Ot 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 HOTEL CLERK (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 03/29/2017 BOBBI CABRERA MD Ot Z87.11 PERSONAL HISTORY OF PEPTIC ULCER DISEASE 03/29/2017 BOBBI CABRERA MD, Ot Z87.19 PERSONAL HISTORY OF OTHER DISEASES OF TH 03/29/2017 BOBBI CABRERA MD, Ot Z87.891 PERSONAL HISTORY OF NICOTINE DEPENDENCE 03/29/2017 BOBBI CABRERA MD, Ot Z96.651 PRESENCE OF RIGHT ARTIFICIAL KNEE JOINT 03/30/2017 BOBBI CABRERA MD, Ot D64.9 ANEMIA, UNSPECIFIED 03/30/2017 BOBBI ACBRERA MD, Ot D72.829 ELEVATED WHITE BLOOD CELL COUNT, UNSPECI 03/30/2017 BOBBI CABRERA MD Ot E11.9 TYPE 2 DIABETES MELLITUS WITHOUT COMPLIC 03/30/2017 BOBBI CABRERA MD Ot E66.9 OBESITY, UNSPECIFIED 03/30/2017 BOBBI CABRERA MD Ot E78.00 PURE HYPERCHOLESTEROLEMIA, UNSPECIFIED 03/30/2017 BOBBI CABRERA MD Ot G47.30 SLEEP APNEA, UNSPECIFIED 03/30/2017 BOBBI CABRERA MD Ot I10 ESSENTIAL (PRIMARY) HYPERTENSION 03/30/2017 BOBBI CABRERA MD, Ot I25.10 ATHSCL HEART DISEASE OF [place] CORONARY 03/30/2017 BOBBI CABRERA MD Ot I69.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 03/30/2017 BOBBI CABRERA MD Ot J44.9 CHRONIC OBSTRUCTIVE PULMONARY DISEASE , U 03/30/2017 BOBBI CABRERA MD Ot J98.11 ATELECTASIS 03/30/2017 BOBBI CABRERA MD Ot N28.9 DISORDER OF KIDNEY AND URETER, UNSPECIFI 03/30/2017 BOBBI CABRERA MD Ot R07.89 OTHER CHEST PAIN 03/30/2017 BOBBI CABRERA MD Ot R09.2 RESPIRATORY ARREST 03/30/2017 BOBBI CABRERA MD, Ot R47.1 DYSARTHRIA AND ANARTHRIA 03/30/2017 BOBBI CABRERA MD Ot T17.920A FOOD IN RESP TRACT, PART UNSP CAUSING 03/30/2017 BOBBI CABRERA MD Ot Z68.42 BODY MASS INDEX (BMI) 45.0-49.9, ADULT 03/30/2017 BOBBI CABRERA MD Ot Z79.4 CORRECTION (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 03/30/2017 BOBBI CABRERA MD, Ot Z87.11 PERSONAL HISTORY OF PEPTIC ULCER DISEASE 03/30/2017 BOBBI CABRERA MD, Ot Z87.19 PERSONAL HISTORY OF OTHER DISEASES OF TH 03/30/2017 BOBBI CABRERA MD, Ot Z87.891 PERSONAL HISTORY OF NICOTINE DEPENDENCE 03/30/2017 BOBBI CABRERA MD Ot Z96.651 PRESENCE OF RIGHT ARTIFICIAL KNEE JOINT 03/30/2017 BOBBI CABRERA MD Ot D64.9 ANEMIA, UNSPECIFIED 03/30/2017 BOBBI CABRERA MD Ot D72.829 ELEVATED WHITE BLOOD CELL COUNT, UNSPECI 03/30/2017 BOBBI CABRERA MD Ot E11.9 TYPE 2 DIABETES MELLITUS WITHOUT COMPLIC 03/30/2017 BOBBI CABRERA MD Ot E66.9 OBESITY, UNSPECIFIED 03/30/2017 BOBBI CABRERA MD Ot E78.00 PURE HYPERCHOLESTEROLEMIA, UNSPECIFIED 03/30/2017 BOBBI CABRERA MD Ot G47.30 SLEEP APNEA, UNSPECIFIED 03/30/2017 BOBBI CABRERA MD Ot I10 ESSENTIAL (PRIMARY) HYPERTENSION 03/30/2017 BOBBI CABRERA MD Ot I25.10 ATHSCL HEART DISEASE OF [place] CORONARY 03/30/2017 BOBBI CABRERA MD Ot I69.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 03/30/2017 BOBBI CABRERA MD Ot J44.9 CHRONIC OBSTRUCTIVE PULMONARY DISEASE , U 03/30/2017 BOBBI CABRERA MD Ot J98.11 ATELECTASIS 03/30/2017 BOBBI CABRERA MD Ot N28.9 DISORDER OF KIDNEY AND URETER, UNSPECIFI 03/30/2017 BOBBI CABRERA MD Ot R07.89 OTHER CHEST PAIN 03/30/2017 BOBBI CABRERA MD Ot R09.2 RESPIRATORY ARREST 03/30/2017 BOBBI CABRERA MD Ot R47.1 DYSARTHRIA AND ANARTHRIA 03/30/2017 BOBBI CABRERA MD Ot R79.89 OTHER SPECIFIED ABNORMAL FINDINGS OF BLO 03/30/2017 BOBBI CABRERA MD Ot T17.920A FOOD IN RESP TRACT, PART UNSP CAUSING 03/30/2017 BOBBI CABRERA MD Ot Y92.[address] IN [facility] PLACE 03/30/2017 BOBBI CABRERA MD Ot Z66 DO NOT RESUSCITATE 03/30/2017 BOBBI CABRERA MD Ot Z68.42 BODY MASS INDEX (BMI) 45.0-49.9, ADULT 03/30/2017 BOBBI CABRERA MD Ot Z79.4 HOTEL CLERK (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 03/30/2017 OBBBI CABRERA MD Ot Z87.11 PERSONAL HISTORY OF PEPTIC ULCER DISEASE 03/30/2017 BOBBI CABRERA MD Ot Z87.19 PERSONAL HISTORY OF OTHER DISEASES OF TH 03/30/2017 BOBBI CABRERA MD Ot Z87.891 PERSONAL HISTORY OF NICOTINE DEPENDENCE 03/30/2017 BOBBI CABRERA MD Ot Z96.651 PRESENCE OF RIGHT ARTIFICIAL KNEE JOINT Procedures Results Test Result Range Methicillin resistant Staphylococcus aureus (MRSA) screening culture - 13:35 Methicillin resistant Staphylococcus aureus (MRSA) screening culture NEG NRG Capillary blood glucose measurement by glucometer (mass/volume) - 04/16/16 07: 55 Capillary blood glucose measurement by glucometer (mass/volume) 213 mg/dL 70-110 Bacteria identification in isolate by anaerobe culture - 04/16/16 09:40 QUANTITY OF GROWTH Scant Growth NRG Bacteria identification in isolate by anaerobe culture [id number] NRG Gram stain microscopy - 04/16/16 09:40 GRAM STAIN RESULT FEW WBC'S, NO BACTERIA OBSERVED NRG Bacteria identification in wound by culture - 04/16/16 09:40 Bacteria identification in wound by culture [id number] NRG FREE TEXT EXTERNAL SENSITIVITY REPORTED 04/18/16 11:20 NRG QUANTITY OF GROWTH Scant Growth NRG Bacterial susceptibility panel - 04/16/16 09:40 Gentamicin susceptibility test by minimum inhibitory concentration <= NRG Tobramycin susceptibility test by minimum inhibitory concentration <= NRG Piperacillin/tazobactam susceptibility test by minimum inhibitory concentration 16 NRG Ciprofloxacin susceptibility test by minimum inhibitory concentration <= NRG Meropenem susceptibility test by minimum inhibitory concentration 1 NRG Cefepime susceptibility test by minimum inhibitory concentration <= NRG Bacterial susceptibility panel - 04/16/16 09:40 Oxacillin susceptibility test by minimum inhibitory concentration <= NRG Gentamicin susceptibility test by minimum inhibitory concentration <= NRG Clindamycin susceptibility test by minimum inhibitory concentration R NRG Erythromycin susceptibility test by minimum inhibitory concentration R NRG Trimethoprim/sulfamethoxazole susceptibility test by minimum inhibitoryconcentration <= NRG Vancomycin susceptibility test by minimum inhibitory concentration <= NRG Levofloxacin susceptibility test by minimum inhibitory concentration 4 NRG Rifampin susceptibility test by minimum inhibitory concentration <= NRG Tetracycline susceptibility test by minimum inhibitory concentration >= NRG Ciprofloxacin susceptibility test by minimum inhibitory concentration R NRG Capillary blood glucose measurement by glucometer (mass/volume) - 04/16/16 10: 24 Capillary blood glucose measurement by glucometer (mass/volume) 179 mg/dL 70-110 Complete blood count (CBC) with automated white blood cell (WBC) differential - 03/27/17 18:04 Blood leukocytes automated count (number/volume) 19.0 10*3/ uL 4.3-11.0 Blood erythrocytes automated count (number/volume) 4.90 10*6 /uL 4.35-5.85 Venous blood hemoglobin measurement (mass/volume) 11.4 g/dL 11.5-16.0 Blood hematocrit (volume fraction) 37 % 35-52 Automated erythrocyte mean corpuscular volume 76 [foz_us] 80-99 Automated erythrocyte mean corpuscular hemoglobin (mass per erythrocyte) 23 pg 25-34 Automated erythrocyte mean corpuscular hemoglobin concentration measurement ( mass/volume) 31 g/dL 32-36 Automated erythrocyte distribution width ratio 16.0 % 10.0-14.5 Automated blood platelet count (count/volume) 313 10*3/uL 130-400 Automated blood platelet mean volume measurement 9.5 [foz_us ] 7.4-10.4 Automated blood neutrophils/100 leukocytes 54 % 42-75 Automated blood lymphocytes/100 leukocytes 35 % 12-44 Blood monocytes/100 leukocytes 9 % 0-12 Automated blood eosinophils/100 leukocytes 2 % 0-10 Automated blood basophils/100 leukocytes 1 % 0-10 Blood neutrophils automated count (number/volume) 10.2 10*3 1.8-7.8 Blood lymphocytes automated count (number/volume) 6.7 10*3 1.0-4.0 Blood monocytes automated count (number/volume) 1.6 10*3 0.0-1.0 Automated eosinophil count 0.3 10*3/uL 0.0-0.3 Automated blood basophil count (count/volume) 0.1 10*3/uL 0.0-0.1 Comprehensive metabolic panel - 03/27/17 18:04 Serum or plasma sodium measurement (moles/volume) 132 mmol/ L 135-145 Serum or plasma potassium measurement (moles/volume) 4.5 mmol/L 3.6-5.0 Serum or plasma chloride measurement (moles/volume) 99 mmol/ L 98-107 Carbon dioxide 16 mmol/L 21-32 Serum or plasma anion gap determination (moles/volume) 17 mmol/L 5-14 Serum or plasma urea nitrogen measurement (mass/volume) 18 mg/dL 7-18 Serum or plasma creatinine measurement (mass/volume) 1.58 mg /dL 0.60-1.30 Serum or plasma urea nitrogen/creatinine mass ratio 11 NRG Serum or plasma creatinine measurement with calculation of estimated glomerular filtration rate 33 NRG Serum or plasma glucose measurement (mass/volume) 327 mg/dL 70-105 Serum or plasma calcium measurement (mass/volume) 9.0 mg/dL 8.5-10.1 Serum or plasma total bilirubin measurement (mass/volume) 0.4 mg/dL 0.1-1.0 Serum or plasma alkaline phosphatase measurement (enzymatic activity/volume) 159 U/L 40-136 Serum or plasma aspartate aminotransferase measurement (enzymatic activity/ volume) 218 U/L 5-34 Serum or plasma alanine aminotransferase measurement (enzymatic activity/volume ) 155 U/L 0-55 Serum or plasma protein measurement (mass/volume) 8.3 g/dL 6.4-8.2 Serum or plasma albumin measurement (mass/volume) 3.8 g/dL 3.2-4.5 Magnesium - 03/27/17 18:04 Magnesium 2.1 mg/dL 1.8-2.4 Blood manual differential performed detection - 03/27/17 18:04 Blood monocytes/100 leukocytes 0 % NRG Manual blood segmented neutrophils/100 leukocytes 47 % NRG Blood band neutrophils/100 leukocytes 0 % NRG Manual blood lymphocytes/100 leukocytes 52 % NRG Manual eosinophils/100 leukocytes in nose 1 % NRG Manual blood basophils/100 leukocytes 0 % NRG Blood erythrocyte morphology finding identification NORMAL NRG Serum or plasma troponin i.cardiac measurement (mass/volume) - 03/27/17 18:04 Serum or plasma troponin i.cardiac measurement (mass/volume) < ng/mL <0.30 Capillary blood glucose measurement by glucometer (mass/volume) - 03/27/17 18: 08 Capillary blood glucose measurement by glucometer (mass/volume) 326 mg/dL 70-110 Arterial blood gas measurement - 03/27/17 18:20 Blood pCO2 53 mm[Hg] 35-45 Blood pO2 195 mm[Hg] 79-93 Arterial blood bicarbonate measurement (moles/volume) 20 mmol/L 23-27 Arterial blood base excess by calculation -7.0 mmol/L -2.5-2.5 Arterial blood oxygen saturation measurement 99 % 94-100 * Inhaled oxygen flow rate 100% NRG Arterial blood pH measurement with patient temperature correction 7.20 7.37-7.43 Arterial blood carbon dioxide, total measurement (moles/volume) 21.5 mmol/L 21.0-31.0 Body site right radial NRG Assessment of wrist artery patency prior to arterial puncture YES-POS NRG Setting of ventilation mode NO NRG Measurement of body temperature 98 NRG Arterial blood gas measurement - 03/27/17 19:47 Blood pCO2 44 mm[Hg] 35-45 Blood pO2 121 mm[Hg] 79-93 Arterial blood bicarbonate measurement (moles/volume) 22 mmol/L 23-27 Arterial blood base excess by calculation -2.9 mmol/L -2.5-2.5 Arterial blood oxygen saturation measurement 99 % 94-100 * Inhaled oxygen flow rate 60% NRG Arterial blood pH measurement with patient temperature correction 7.33 7.37-7.43 Arterial blood carbon dioxide, total measurement (moles/volume) 23.6 mmol/L 21.0-31.0 Body site RT RAD NRG Assessment of wrist artery patency prior to arterial puncture YES-POS NRG Setting of ventilation mode NO NRG Measurement of body temperature 98.0 NRG Complete urinalysis with reflex to culture - 03/27/17 20:00 Urine color determination YELLOW NRG Urine clarity determination SLIGHTLY CLOUDY NRG Urine pH measurement by test strip 5 5- 9 Specific gravity of urine by test strip 1.020 1.016-1.022 Urine protein assay by test strip, semi-quantitative 3+ NEGATIVE Urine glucose detection by automated test strip 3+ NEGATIVE Erythrocytes detection in urine sediment by light microscopy 2+ NEGATIVE Urine ketones detection by automated test strip NEGATIVE NEGATIVE Urine nitrite detection by test strip NEGATIVE NEGATIVE Urine total bilirubin detection by test strip NEGATIVE NEGATIVE Urine urobilinogen measurement by automated test strip (mass/volume) NORMAL NORMAL Urine leukocyte esterase detection by dipstick NEGATIVE NEGATIVE Automated urine sediment erythrocyte count by microscopy (number/high power field) [HPF] NRG Automated urine sediment leukocyte count by microscopy (number/high power field ) [HPF] NRG Bacteria detection in urine sediment by light microscopy TRACE NRG Crystals detection in urine sediment by light microscopy PRESENT NRG Casts detection in urine sediment by light microscopy NONE NRG Mucus detection in urine sediment by light microscopy NEGATIVE NRG Complete urinalysis with reflex to culture NO NRG Amorphous sediment detection in urine sediment by light microscopy FEW ELISHA URATES NRG Blood lactic acid measurement (moles/volume) - 03/27/17 20:25 Blood lactic acid measurement (moles/volume) 1.96 mmol/L 0.50-2.00 Bacterial blood culture - 03/27/17 20:25 QUANTITY OF GROWTH . NRG Bacterial blood culture SEE COMMEN NRG Bacterial blood culture - 03/27/17 20:40 Bacterial blood culture NG NRG Methicillin resistant Staphylococcus aureus (MRSA) screening culture - 21:35 Methicillin resistant Staphylococcus aureus (MRSA) screening culture NEG NRG Capillary blood glucose measurement by glucometer (mass/volume) - 03/27/17 22: 17 Capillary blood glucose measurement by glucometer (mass/volume) 271 mg/dL 70-110 Capillary blood glucose measurement by glucometer (mass/volume) - 03/27/17 23: 18 Capillary blood glucose measurement by glucometer (mass/volume) 262 mg/dL 70-110 Capillary blood glucose measurement by glucometer (mass/volume) - 03/28/17 00: 18 Capillary blood glucose measurement by glucometer (mass/volume) 265 mg/dL 70-110 Complete blood count (CBC) with automated white blood cell (WBC) differential - 03/28/17 03:38 Blood leukocytes automated count (number/volume) 12.4 10*3/ uL 4.3-11.0 Blood erythrocytes automated count (number/volume) 3.96 10*6 /uL 4.35-5.85 Venous blood hemoglobin measurement (mass/volume) 9.2 g/dL 11.5-16.0 Blood hematocrit (volume fraction) 30 % 35-52 Automated erythrocyte mean corpuscular volume 75 [foz_us] 80-99 Automated erythrocyte mean corpuscular hemoglobin (mass per erythrocyte) 23 pg 25-34 Automated erythrocyte mean corpuscular hemoglobin concentration measurement ( mass/volume) 31 g/dL 32-36 Automated erythrocyte distribution width ratio 15.8 % 10.0-14.5 Automated blood platelet count (count/volume) 207 10*3/uL 130-400 Automated blood platelet mean volume measurement 9.9 [foz_us ] 7.4-10.4 Automated blood neutrophils/100 leukocytes 82 % 42-75 Automated blood lymphocytes/100 leukocytes 11 % 12-44 Blood monocytes/100 leukocytes 7 % 0-12 Automated blood eosinophils/100 leukocytes 0 % 0-10 Automated blood basophils/100 leukocytes 0 % 0-10 Blood neutrophils automated count (number/volume) 10.2 10*3 1.8-7.8 Blood lymphocytes automated count (number/volume) 1.3 10*3 1.0-4.0 Blood monocytes automated count (number/volume) 0.9 10*3 0.0-1.0 Automated eosinophil count 0.0 10*3/uL 0.0-0.3 Automated blood basophil count (count/volume) 0.0 10*3/uL 0.0-0.1 Comprehensive metabolic panel - 03/28/17 03:38 Serum or plasma sodium measurement (moles/volume) 135 mmol/ L 135-145 Serum or plasma potassium measurement (moles/volume) 4.3 mmol/L 3.6-5.0 Serum or plasma chloride measurement (moles/volume) 105 mmol /L 98-107 Carbon dioxide 20 mmol/L 21-32 Serum or plasma anion gap determination (moles/volume) 10 mmol/L 5-14 Serum or plasma urea nitrogen measurement (mass/volume) 21 mg/dL 7-18 Serum or plasma creatinine measurement (mass/volume) 1.46 mg /dL 0.60-1.30 Serum or plasma urea nitrogen/creatinine mass ratio 14 NRG Serum or plasma creatinine measurement with calculation of estimated glomerular filtration rate 36 NRG Serum or plasma glucose measurement (mass/volume) 219 mg/dL 70-105 Serum or plasma calcium measurement (mass/volume) 8.3 mg/dL 8.5-10.1 Serum or plasma total bilirubin measurement (mass/volume) 0.4 mg/dL 0.1-1.0 Serum or plasma alkaline phosphatase measurement (enzymatic activity/volume) 104 U/L 40-136 Serum or plasma aspartate aminotransferase measurement (enzymatic activity/ volume) 141 U/L 5-34 Serum or plasma alanine aminotransferase measurement (enzymatic activity/volume ) 135 U/L 0-55 Serum or plasma protein measurement (mass/volume) 6.4 g/dL 6.4-8.2 Serum or plasma albumin measurement (mass/volume) 3.1 g/dL 3.2-4.5 Serum or plasma phosphate measurement (mass/volume) - 03/28/17 03:38 Serum or plasma phosphate measurement (mass/volume) 3.3 mg/ dL 2.3-4.7 Magnesium - 03/28/17 03:38 Magnesium 1.6 mg/dL 1.8-2.4 Capillary blood glucose measurement by glucometer (mass/volume) - 03/28/17 07: 56 Capillary blood glucose measurement by glucometer (mass/volume) 225 mg/dL 70-110 Capillary blood glucose measurement by glucometer (mass/volume) - 03/28/17 11: 15 Capillary blood glucose measurement by glucometer (mass/volume) 175 mg/dL 70-110 Capillary blood glucose measurement by glucometer (mass/volume) - 03/28/17 16: 03 Capillary blood glucose measurement by glucometer (mass/volume) 128 mg/dL 70-110 Capillary blood glucose measurement by glucometer (mass/volume) - 03/28/17 21: 05 Capillary blood glucose measurement by glucometer (mass/volume) 227 mg/dL 70-110 Complete blood count (CBC) with automated white blood cell (WBC) differential - 03/29/17 03:34 Blood leukocytes automated count (number/volume) 7.6 10*3/ uL 4.3-11.0 Blood erythrocytes automated count (number/volume) 3.67 10*6 /uL 4.35-5.85 Venous blood hemoglobin measurement (mass/volume) 8.5 g/dL 11.5-16.0 Blood hematocrit (volume fraction) 28 % 35-52 Automated erythrocyte mean corpuscular volume 76 [foz_us] 80-99 Automated erythrocyte mean corpuscular hemoglobin (mass per erythrocyte) 23 pg 25-34 Automated erythrocyte mean corpuscular hemoglobin concentration measurement ( mass/volume) 30 g/dL 32-36 Automated erythrocyte distribution width ratio 16.2 % 10.0-14.5 Automated blood platelet count (count/volume) 174 10*3/uL 130-400 Automated blood platelet mean volume measurement 9.9 [foz_us ] 7.4-10.4 Automated blood neutrophils/100 leukocytes 61 % 42-75 Automated blood lymphocytes/100 leukocytes 25 % 12-44 Blood monocytes/100 leukocytes 10 % 0-12 Automated blood eosinophils/100 leukocytes 3 % 0-10 Automated blood basophils/100 leukocytes 1 % 0-10 Blood neutrophils automated count (number/volume) 4.6 10*3 1.8-7.8 Blood lymphocytes automated count (number/volume) 1.9 10*3 1.0-4.0 Blood monocytes automated count (number/volume) 0.8 10*3 0.0-1.0 Automated eosinophil count 0.2 10*3/uL 0.0-0.3 Automated blood basophil count (count/volume) 0.1 10*3/uL 0.0-0.1 Whole blood basic metabolic panel - 03/29/17 03:34 Serum or plasma sodium measurement (moles/volume) 137 mmol/ L 135-145 Serum or plasma potassium measurement (moles/volume) 4.0 mmol/L 3.6-5.0 Serum or plasma chloride measurement (moles/volume) 108 mmol /L 98-107 Carbon dioxide 19 mmol/L 21-32 Serum or plasma anion gap determination (moles/volume) 10 mmol/L 5-14 Serum or plasma urea nitrogen measurement (mass/volume) 18 mg/dL 7-18 Serum or plasma creatinine measurement (mass/volume) 1.47 mg /dL 0.60-1.30 Serum or plasma urea nitrogen/creatinine mass ratio 12 NRG Serum or plasma creatinine measurement with calculation of estimated glomerular filtration rate 35 NRG Serum or plasma glucose measurement (mass/volume) 174 mg/dL 70-105 Serum or plasma calcium measurement (mass/volume) 8.2 mg/dL 8.5-10.1 Serum or plasma phosphate measurement (mass/volume) - 03/29/17 03:34 Serum or plasma phosphate measurement (mass/volume) 3.6 mg/ dL 2.3-4.7 Magnesium - 03/29/17 03:34 Magnesium 2.1 mg/dL 1.8-2.4 Serum or plasma lithium measurement (moles/volume) - 03/29/17 03:34 BNP level 145.5 pg/mL <100.0 Capillary blood glucose measurement by glucometer (mass/volume) - 03/29/17 15: 59 Capillary blood glucose measurement by glucometer (mass/volume) 215 mg/dL 70-110 Capillary blood glucose measurement by glucometer (mass/volume) - 03/29/17 20: 36 Capillary blood glucose measurement by glucometer (mass/volume) 194 mg/dL 70-110 Complete blood count (CBC) with automated white blood cell (WBC) differential - 03/30/17 04:33 Blood leukocytes automated count (number/volume) 10.1 10*3/ uL 4.3-11.0 Blood erythrocytes automated count (number/volume) 3.87 10*6 /uL 4.35-5.85 Venous blood hemoglobin measurement (mass/volume) 8.9 g/dL 11.5-16.0 Blood hematocrit (volume fraction) 29 % 35-52 Automated erythrocyte mean corpuscular volume 76 [foz_us] 80-99 Automated erythrocyte mean corpuscular hemoglobin (mass per erythrocyte) 23 pg 25-34 Automated erythrocyte mean corpuscular hemoglobin concentration measurement ( mass/volume) 30 g/dL 32-36 Automated erythrocyte distribution width ratio 16.0 % 10.0-14.5 Automated blood platelet count (count/volume) 196 10*3/uL 130-400 Automated blood platelet mean volume measurement 9.8 [foz_us ] 7.4-10.4 Automated blood neutrophils/100 leukocytes 73 % 42-75 Automated blood lymphocytes/100 leukocytes 15 % 12-44 Blood monocytes/100 leukocytes 9 % 0-12 Automated blood eosinophils/100 leukocytes 3 % 0-10 Automated blood basophils/100 leukocytes 1 % 0-10 Blood neutrophils automated count (number/volume) 7.4 10*3 1.8-7.8 Blood lymphocytes automated count (number/volume) 1.5 10*3 1.0-4.0 Blood monocytes automated count (number/volume) 0.9 10*3 0.0-1.0 Automated eosinophil count 0.3 10*3/uL 0.0-0.3 Automated blood basophil count (count/volume) 0.1 10*3/uL 0.0-0.1 Whole blood basic metabolic panel - 03/30/17 04:33 Serum or plasma sodium measurement (moles/volume) 136 mmol/ L 135-145 Serum or plasma potassium measurement (moles/volume) 4.6 mmol/L 3.6-5.0 Serum or plasma chloride measurement (moles/volume) 107 mmol /L 98-107 Carbon dioxide 21 mmol/L 21-32 Serum or plasma anion gap determination (moles/volume) 8 mmol/L 5-14 Serum or plasma urea nitrogen measurement (mass/volume) 17 mg/dL 7-18 Serum or plasma creatinine measurement (mass/volume) 1.36 mg /dL 0.60-1.30 Serum or plasma urea nitrogen/creatinine mass ratio 13 NRG Serum or plasma creatinine measurement with calculation of estimated glomerular filtration rate 39 NRG Serum or plasma glucose measurement (mass/volume) 184 mg/dL 70-105 Serum or plasma calcium measurement (mass/volume) 8.8 mg/dL 8.5-10.1 Capillary blood glucose measurement by glucometer (mass/volume) - 03/30/17 11: 26 Capillary blood glucose measurement by glucometer (mass/volume) 245 mg/dL 70-110 Encounters ACCT No. Visit Date/Time Discharge Status Pt. Type Provider Facility Loc./Unit Complaint [id number] 03/27/2017 20:53:00 2016 13:20:00 DIS Outpatient DEBORAH CHOWDHURY, BOBBI Chaparro [facility] 4TH RESPIRATORY ARREST, ASPIRATION, LEUKOCYTOSIS, ARF [id number] 04/16/2016 07:40:00 2015 12:50:00 DIS Outpatient ESTEPHANIE STANFORD MD [facility] SINUSITIS [id number] 04/09/2016 13:09:00 2015 14:00:00 DIS Outpatient ESTEPHANIE STANFORD MD [facility] PREOP SINUSITIS [id number] 09/10/2014 18:28:00 2013 23:59:59 CLS Outpatient MARIAN BRANDT MD [facility] MSL [id number] 11/06/2013 09:46:00 2013 23:59:59 CLS Outpatient SWATHI RAMIREZ [facility] CARD [id number] 03/13/2016 10:23:00 ACT Outpatient MARKO LAUREN [facility] RAD [id number] 12/24/2014 12:50:00 Document Registration [id number] 12/24/2014 12:50:00 Document Registration [id number] 11/03/2011 10:50:00 Document Registration [id number] 10/27/2011 10:30:00 Document Registration [id number] 01/11/2011 10:52:00 Document Registration
--- OUTSIDE RECORDS SUMMARY | 2017-04-04 05:03 | XMS REPORT | Continuity of Care Document ---
Author Author [facility] Organization [facility] Address Unknown Phone Unavailable Allergies Active Description Code Type Severity Reaction Onset Reported/Identified Relationship to Patient Clinical Status Yes NKANo Known Allergies NKA Miscellaneous Allergy Unknown N/ A 06/16/2008 Yes sulfamethoxazole [id number] Drug Allergy Unknown N/A 04/09/2016 Yes trimethoprim [id number] Drug Allergy Unknown N/A 04/09/2016 Medications Problems Date Dx Coded Attending Type Code Diagnosis Diagnosed By 01/11/2011 Ot 078.3 CAT-SCRATCH DISEASE 01/11/2011 Ot 891.0 OPEN WND KNEE/LEG/ANKLE 01/11/2011 Ot E000.8 OTHER EXTERNAL CAUSE STATUS 01/11/2011 Ot E849.0 ACCIDENT IN HOME 01/11/2011 Ot E906.3 ANIMAL BITE NEC 01/11/2011 Ot V06.1 [id number], COMBINED [ 11/03/2011 Ot 041.11 METHICILLIN SUSCEPTIBLE [...] RAMIREZ Ot 424.0 10/03/2014 KYLE PA, SWATHI Victro Ot 429.9 10/03/2014 KYLE PA, SWATHI Victor [...] Ot 397.0 TRICUSPID VALVE DISEASE 03/13/2016 KYLE FIHSMAN, SWATHI K Ot 401.9 HYPERTENSION NOS 03/13/2016 KYLE FISHMAN, SWATHI Victor Ot 424.0 MITRAL VALVE DISORDER 03/13/2016 KYLE FISHMAN, SWATHI Victor Ot 429.9 HEART DISEASE NOS 03/13/2016 SWATHI RAMIREZ Ot V12.54 PERSONAL HX OF TIA, CEREBRAL INFARCTION 03/13/2016 MARIAN BRANDT MD Ot 599.0 URIN TRACT INFECTION NOS 03/13/2016 LEONIDAS, MARKO J [employer] Ot R22.0 LOCALIZED SWELLING, MASS AND LUMP, [...] TRACT INFECTION NOS 03/13/2016 LEONIDAS, MARKO J [employer] Ot R22.0 LOCALIZED SWELLING, MASS AND LUMP, HEAD 03/18/2016 LEONIDAS, MARKO J [employer] Ot R22.0 LOCALIZED SWELLING, MASS AND LUMP, HEAD 04/06/2016 LEONIDAS, MARKO J [employer] Ot R22.0 LOCALIZED SWELLING, MASS AND LUMP, [...] SCREENING FOR OTHER BACTER 04/10/2016 MARKO LAUREN [employer] Ot R22.0 LOCALIZED SWELLING, MASS AND LUMP, HEAD 04/16/2016 ESTEPHANIE STANFORD MD Ot E11.9 TYPE 2 DIABETES MELLITUS WITHOUT COMPLIC 04/16/2016 ESTEPHANIE STANFORD MD Ot J32.0 CHRONIC MAXILLARY SINUSITIS 04/16/2016 ESTEPHANIE STANFORD MD Ot J32.1 CHRONIC FRONTAL SINUSITIS 04/16/2016 ESTEPHANIE STANFORD MD Ot J32.2 CHRONIC ETHMOIDAL SINUSITIS 04/16/2016 ESTEPHANIE STANFORD MD Ot Z79.4 ECHOCARDIOGRAPHER (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 03/29/2017 BOBBI CABRERA [...] MD, Ot I25.10 ATHSCL HEART DISEASE OF [place] CORONARY 03/29/2017 BOBBI CABRERA MD Ot I69.354 [...] ADULT 03/29/2017 BOBBI CABRERA MD Ot Z79.4 ECHOCARDIOGRAPHER (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 03/29/2017 BOBBI CABRERA MD Ot Z87.11 PERSONAL HISTORY OF PEPTIC ULCER DISEASE 03/29/2017 BOBBI CABRERA MD, Ot Z87.19 PERSONAL HISTORY OF OTHER DISEASES OF TH 03/29/2017 BOBBI CABRERA MD, Ot Z87.891 PERSONAL HISTORY OF NICOTINE DEPENDENCE 03/29/2017 BOBBI CABRERA MD, Ot Z96.651 PRESENCE OF RIGHT ARTIFICIAL KNEE JOINT 03/30/2017 BOBBI CABRERA MD, Ot D64.9 ANEMIA, UNSPECIFIED 03/30/2017 BOBBI CABRERA MD, Ot D72.829 ELEVATED WHITE BLOOD CELL [...] MD, Ot I25.10 ATHSCL HEART DISEASE OF [place] CORONARY 03/30/2017 BOBBI CABRERA MD Ot I69.354 [...] ADULT 03/30/2017 BOBBI CABRERA MD Ot Z79.4 DETENTION (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 03/30/2017 BOBBI CABRERA [...] MD Ot I25.10 ATHSCL HEART DISEASE OF [place] CORONARY 03/30/2017 BOBBI CABRERA MD Ot I69.354 [...] CABRERA MD Ot Y92.[address] IN HALFWAY PLACE 03/30/2017 BOBBI CABRERA MD Ot Z66 DO NOT RESUSCITATE 03/30/2017 BOBBI CABRERA MD Ot Z68.42 BODY MASS INDEX (BMI) 45.0-49.9, ADULT 03/30/2017 BOBBI CABRERA MD Ot Z79.4 ECHOCARDIOGRAPHER (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 03/30/2017 BOBBI CABRERA MD Ot Z87.11 PERSONAL HISTORY [...] Bacteria identification in isolate by anaerobe culture [id number] NRG Gram stain microscopy - 04/16/16 09:40 GRAM STAIN RESULT FEW WBC'S, NO BACTERIA OBSERVED NRG Bacteria identification in wound by culture - 04/16/16 09:40 Bacteria identification in wound by culture [id number] NRG FREE TEXT EXTERNAL SENSITIVITY REPORTED 04/18/16 [...] Status Pt. Type Provider Facility Loc./Unit Complaint [id number] 03/27/2017 20:53:00 2016 13:20:00 DIS Outpatient DEBORAH CHOWDHURY, BOBBI Chaparro [facility] 4TH RESPIRATORY ARREST, ASPIRATION, LEUKOCYTOSIS, ARF [id number] 04/16/2016 07:40:00 2015 12:50:00 DIS Outpatient ESTEPHANIE STANFORD MD [facility] SINUSITIS [id number] 04/09/2016 13:09:00 2015 14:00:00 DIS Outpatient ESTEPHANIE STANFORD MD [facility] PREOP SINUSITIS [id number] 09/10/2014 18:28:00 2013 23:59:59 CLS Outpatient MARIAN BRANDT MD [facility] MSL [id number] 11/06/2013 09:46:00 2013 23:59:59 CLS Outpatient SWATHI RAMIREZ [facility] CARD [id number] 03/13/2016 10:23:00 ACT Outpatient MARKO LAUREN [facility] RAD [id number] 12/24/2014 12:50:00 Document Registration [id number] 12/24/2014 12:50:00 Document Registration [id number] 11/03/2011 10:50:00 Document Registration [id number] 10/27/2011 10:30:00 Document Registration [id number] 01/11/2011 10:52:00 Document Registration
== END 2017-03-30 13:20 | DRG 205 ==
LOC: EDUNIT# 18:02 → ER 18:03 → ICU 20:53 → 4TH 03-29 11:09
PROVIDERS: ADMIT Internal Medicine; ATTEND Internal Medicine
DX: T17.920A Food in respiratory tract, part unspecified causing asphyxiation, initial encounter (principal); R09.2 Respiratory arrest; J98.11 Atelectasis; I69.354 Hemiplegia and hemiparesis following cerebral infarction affecting left non-dominant side; E66.9 Obesity, unspecified; Z68.42 Body mass index [BMI] 45.0-49.9, adult; N28.9 Disorder of kidney and ureter, unspecified; D72.829 Elevated white blood cell count, unspecified; Z66 Do not resuscitate; R07.89 Other chest pain; R47.1 Dysarthria and anarthria; J44.9 Chronic obstructive pulmonary disease, unspecified; G47.30 Sleep apnea, unspecified; I10 Essential (primary) hypertension; I25.10 Atherosclerotic heart disease of native coronary artery without angina pectoris; E78.00 Pure hypercholesterolemia, unspecified; E11.9 Type 2 diabetes mellitus without complications; D64.9 Anemia, unspecified; R79.89 Other specified abnormal findings of blood chemistry; Z79.4 Long term (current) use of insulin; Z87.891 Personal history of nicotine dependence; Z96.651 Presence of right artificial knee joint; Z87.11 Personal history of peptic ulcer disease; Z87.19 Personal history of other diseases of the digestive system; Y92.128 Other place in nursing home as the place of occurrence of the external cause
CPT/HCPCS: 36415; 51702; 71010; 80048; 80053; 81000; 82805; 82962; 83605; 83735; 83880; 84100; 84484; 85007; 85025; 85027; 87040; 87077; 87081; 93005; 93041; 94640; 94660; 94664; 94760; 96361; 96374; 96375

== ENCOUNTER 2017-08-28 21:30 | Inpatient (IN) | payer MEDICARE, MEDICAID ==
[~2017-08-28] VITALS: Ht 165.1 cm; Wt 121.9 kg
[~2017-08-28 21:30] MED LIST changes: +ASPI-999 PO; +CLOP75TA69 PO; +HYDR-700 PO; +HYDR28OI2 TP; +PANT20TA2 PO; +PETR5OIN3 TP; +SODI104S3 NSEACH; +Valerian PO; +[UNRECOGNIZED DRUG - OTHER] PO; +[UNRECOGNIZED DRUG - OTHER] PR; +[UNRECOGNIZED DRUG - OTHER] TOP
[2017-08-28] MEDS ORDERED: NS IV 1000 ML 1,000 ML IV ONE (22:31)
[2017-08-28] MEDS ORDERED: ONDANSETRON 4 MG/2 ML (SDV) Z0FRAN IVP ONE (22:45)
[2017-08-28] MEDS ORDERED: IBUPROFEN 800 MG (MOTRIN) TAB PO ONE (22:45)
[2017-08-28 23:06] LABS: BASOPHILS % (AUTO) 0 % (0-10); EOSINOPHILS % (AUTO) 0 % (0-10); LYMPHOCYTES # (AUTO) 1.1 X 10^3 (1.0-4.0); LYMPHOCYTES % (AUTO) 6 % (12-44); MEAN CORPUSCULAR HEMOGLOBIN 24 PG (25-34); MEAN CORPUSCULAR HGB CONC 32 G/DL (32-36); MEAN CORPUSCULAR VOLUME 75 FL (80-99); MEAN PLATELET VOLUME 9.5 FL (7.4-10.4); MONOCYTES # (AUTO) 0.8 X 10^3 (0.0-1.0); MONOCYTES % (AUTO) 4 % (0-12); NEUTROPHILS # (AUTO) 16.9 X 10^3 (1.8-7.8); NEUTROPHILS % (AUTO) 90 % (42-75); PLATELET COUNT 255 10^3/uL (130-400); RED BLOOD COUNT 4.46 10^6/uL (4.35-5.85); RED CELL DISTRIBUTION WIDTH 15.1 % (10.0-14.5); WHITE BLOOD COUNT 18.8 10^3/uL (4.3-11.0)
[2017-08-28 23:16] LABS: INR 1.2 (0.8-1.4)
[2017-08-28 23:23] LABS: BAND NEUTROPHILS 11 %; BASOPHILS % (MANUAL) 0 %; EOSINOPHILS % (MANUAL) 0 %; LYMPHOCYTES % (MANUAL) 8 %; NEUTROPHILS % (MANUAL) 79 %
[2017-08-28 23:30] LABS: ALANINE AMINOTRANSFERASE 36 U/L (0-55); ALBUMIN 3.6 GM/DL (3.2-4.5); AMYLASE 34 U/L (25-125); ANION GAP 13 MMOL/L (5-14); ASPARTATE AMINO TRANSFERASE 46 U/L (5-34); BILIRUBIN,TOTAL 0.6 MG/DL (0.1-1.0); BLOOD UREA NITROGEN 17 MG/DL (7-18); BUN/CREATININE RATIO 11; CALCIUM 9.1 MG/DL (8.5-10.1); CARBON DIOXIDE 20 MMOL/L (21-32); CHLORIDE 98 MMOL/L (98-107); CREATININE SERUM 1.59 MG/DL (0.60-1.30); GFR ESTIMATED 32; GLUCOSE 202 MG/DL (70-105); LIPASE 23 U/L (8-78); MAGNESIUM 1.8 MG/DL (1.8-2.4); POTASSIUM 4.8 MMOL/L (3.6-5.0); SODIUM 131 MMOL/L (135-145); TOTAL PROTEIN 8.4 GM/DL (6.4-8.2)
[2017-08-28 23:36] LABS: TROPONIN I < 0.30 NG/ML (<0.30)
[2017-08-29] VITALS (9 sets, daily range): BP systolic 92–138; BP diastolic 52–70
[2017-08-29 00:40] LABS: BILIRUBIN,URINE NEGATIVE (NEGATIVE); KETONES,URINE NEGATIVE (NEGATIVE); LEUKOCYTE ESTERASE ,URINE 2+ (NEGATIVE); NITRITE,URINE NEGATIVE (NEGATIVE); PH,URINE 6 (5-9); PROTEIN,URINE 4+ (NEGATIVE); UROBILINOGEN,URINE NORMAL (NORMAL)
[2017-08-29 00:52] LABS: SQUAMOUS EPITHELIAL CELL,UR 0-2 /HPF
[2017-08-29] MEDS ORDERED: NS (IVPB) 250 ML ONE (01:17)
[2017-08-29] MEDS ORDERED: VANCOMYCIN 1000 MG/VIAL ONE (01:17)
[2017-08-29] MEDS ORDERED: VANCOMYCIN INJECTION 1,000 MG in NS (IVPB) 250 ML IV ONE (01:30)
[2017-08-29] MEDS ORDERED: 1/2 NS IV SOLUTION 1,000 ML IV ONE (02:37)
[2017-08-29] MEDS ORDERED: VANCOMYCIN 750 MG/NS 250 ML IVPB IV ONE ×2 (03:00)
[2017-08-29] MEDS: 1/2 NS IV SOLUTION 1,000 ML IV SCH ×3 (03:51→20:32)
--- NOTE | 2017-08-29 04:53 | ED General ---
General Chief Complaint: Fever-Adult/Adol Stated Complaint: SEPSIS; L LEG CELLULITIS; UTI; BRONCHITIS Nursing Triage Note: PT TO ED 6 PER W/C FROM [facility] FOR C/O SOB, FEVER, LEG PAIN ONSET 203 PER [facility] PAPER REPORT. PT AWAKE, ALERT, ANSWERS ALL QUESTION S APPROPRIATELY. NO DISTRESS NOTED AT THIS TIME. 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 PT ALSO HAD C/O FEVER OF 103, AND SHORTNESS OF BREATH, WITH MILD COUGH TO NURSE NO CHEST PAIN O2 SATS 89% ON ROOM AIR AT HALFWAY. PT DOES NOT NEED/WEAR HOME O2 TYLENOL WAS GIVEN AT HALFWAY AT 2115 FOR FEVER PCP: DR. YAO Allergies and Home Medications Allergies Coded Allergies: sulfamethoxazole (Verified Allergy, Unknown, 04/09/16) trimethoprim (Verified Allergy, Unknown, 04/09/16) Home Medications Acetaminophen 500 Mg Tablet, 1,000 MG PO Q6H PRN for headache/fever, (Reported) take 2 (500mg) tabs Amlodipine Besylate 5 Mg Tablet, 5 MG PO DAILY, (Reported) Aspirin 81 Mg Tab.chew, 81 MG PO DAILY, (Reported) Atorvastatin 20 Mg Tablet, 20 MG PO HS, (Reported) Bethanechol Chloride 10 Mg Tablet, 10 MG PO BID, (Reported) Bisacodyl 10 Mg Supp, 10 MG MT DAILY PRN for CONSTIPATION, (Reported) Budesonide/Formoterol Fumarate 10.2 Gm Hfa.aer.ad, 2 PUFF IH BID, (Reported) Cholecalciferol 5,000 Unit Capsule, 5,000 UNIT PO HS, (Reported) Cinnamon Bark 500 Mg Capsule, 1,000 MG PO DAILY, (Reported) Citalopram Hydrobromide 10 Mg Tablet, 10 MG PO DAILY, (Reported) Clopidogrel Bisulfate 75 Mg Tablet, 75 MG PO DAILY, (Reported) Cranberry Extract 500 Mg Tablet, 500 MG PO DAILY, (Reported) Hydrocortisone Acetate 28 Gm Oint...g., 1 GM TP Q8H PRN for Gaulding/Redness, ( Reported) Apply to buttocks topically every 8 Hours prn for gaulding/redness Hydrocortisone Acetate 28 Gm Oint...g., 1 GM TP DAILY PRN for RASH, (Reported) Apply to rash to buttocks topically one time a day for rash/itching Hydroxyzine HCl 25 Mg Tablet, 25 MG PO Q8H PRN for ITCHING, (Reported) Insulin Aspart 100 Unit/1 Ml Susp, SQ SLIDING/SCALE, (Reported) SLIDING SCALES / BEFORE MEALS AND AT BEDTIME 60-150 give 0 Units 151-200 give 0 Units 201-250 give 3 Units 251-300 give 5 Units 301-350 give 7 Units 351- 400 give 9 Units above 400 call the physician Insulin Detemir 100 Unit/1 Ml Insuln.pen, 40 UNIT SQ BID, (Reported) Liraglutide 0.6 Mg/0.1 Ml Pen.injctr, 1.8 MG SQ DAILY, (Reported) Magnesium Hydroxide 400 Mg/5 Ml Oral.susp, 1,600 MG PO DAILY PRN for CONSTIPATION, (Reported) TAKES 30 ML OF A (400MG/5ML) SUSPENSION Melatonin/Pyridoxine 1 Each Tablet, 3 MG PO HS, (Reported) Methylsulfonylmethane 1,000 Mg Tablet, 2,000 MG PO HS, (Reported) take 2 (1,000mg) tab Metoprolol Succinate 100 Mg Tab.er.24h, 100 MG PO DAILY, (Reported) Multivits W-Fe,Other Min/Lut 1 Each Tablet, 1 TAB PO TID, (Reported) Niacin 500 Mg Tablet.er, 500 MG PO HS, (Reported) [place]-3 Fatty Acids/Fish Oil 1 Each Capsule, 1,200 MG PO DAILY, (Reported) Pantoprazole Sodium 20 Mg Tablet.dr, 20 MG PO DAILY, (Reported) Petrolatum,White 5 Gm Oint.pack, 1 GM TP BID, (Reported) Apply to buttocks topically every shift for skin condition Saxagliptin HCl 2.5 Mg Tablet, 2.5 MG PO DAILY, (Reported) Sodium Chloride 104 Ml [place], 2 SPRAYS NSEACH Q4H PRN for Nasal Moisture, ( Reported) Vitamin B Complex & Vit C No.4 150 Mg Tablet, 150 MG PO DAILY, (Reported) Zinc Oxide 60 Gm Cream..g., 2 GM TP PRN PRN for RASH, (Reported) apply to buttocks for gaulding/redness [Good Sense] , 1 APPLIC MT Q12H PRN for constipation, (Reported) GoodSense Hemorrhoidal ointment 0.25-14-79.9% insert 1 application rectally every 12 hours prn for constipation with bleeding use BID after each bleeding BM until healed. [Valerian] , 530 MG PO DAILY PRN PRN for ANXIETY, (Reported) [comforTone] , 3 TAB PO HS, (Reported) [digize oil] , 1 DROP TOP UD, (Reported) Apply topically to skin as needed for supplement related functional disorders of the stomach as needed for upset stomach, there is no dosage for this oil, may be used topically or dabbed inside the mouth on check, may keep at the bedside and self administer for digestive difficulties Constitutional: see HPI, fever, malaise Respiratory: see HPI, short of breath Cardiovascular: No chest pain, edema, No palpitations Gastrointestinal: No abdominal pain, nausea, vomiting Genitourinary: no symptoms reported Musculoskeletal: see HPI Skin: see HPI Psychiatric/Neurological: See HPI, Pre-Existing Deficit Hematologic/Lymphatic: No Symptoms Reported Immunological/Allergic: no symptoms reported Past Tvelbio-Pzgdzw-Ieyogc Hx Patient Social History Alcohol Use: Denies Use Recreational Drug Use: No Smoking Status: Former Smoker Type Used: Cigarettes Former Smoker, Quit: Sep 13, 1999 2nd Hand Smoke Exposure: No Recent Foreign Travel: No Contact w/Someone Who Travel: No Recent Infectious Disease Expo: No Recent Hopitalizations: No Physical Abuse: No Sexual Abuse: No Mistreated: No Fear: No Seasonal Allergies Seasonal Allergies: Yes Surgeries History of Surgeries: Yes (NASAL SX--NASAL POLYPS; RT TKR; FOOT SX; CARDIAC CATH 2011--NO INTERVENTION) Surgeries: Cardiac, Joint Replacement, Nose, Orthopedic Respiratory History of Respiratory Disorde: Yes (03/2017-REPSIRATORY ARREST DUE TO ASPIRATION WITH ASPIRATION PNEUMONIA) Respiratory Disorders: Pneumonia, Sleep Apnea, COPD Currently Using CPAP: No Currently Using BIPAP: No Cardiovascular History of Cardiac Disorders: Yes (CHRONIC LEFT LEG EDEMA POST CVA; CARDIAC CATH 2011--NO INTERVENTION/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% ) Cardiac Disorders: Chronic Edema/Swelling, Coronary Artery Disease, High Cholesterol Neurological History of Neurological Disord: Yes (CVA WITH LEFT SIDE FLACCID PARALYSIS, DYSPHAGIA AND DYSPHASIA) Neurological Disorders: Stroke 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 System Hx 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 Disorders: No Genitourinary History of Genitourinary Disor: Yes (OVERACTIVE BLADDER) Genitourinary Disorders: Kidney Stones, Renal Failure Gastrointestinal History of Gastrointestinal Di: Yes (DYSPHAGIA) Gastrointestinal Disorders: Gastroesophageal Reflux, Chronic Constipation, Hemorrhoids, Ulcer Musculoskeletal History of Musculoskeletal Dis: Yes (LT SIDE WEAKNESS FROM STROKE; GAIT DISTURBANCE; CHRONIC GENERALIZED PAIN AND GENERALIZED WEAKNESS ) Endocrine History of Endocrine Disorders: Yes Endocrine Disorders: Diabetes, Insulin dep HEENT History of HEENT Disorders: Yes (Nasal SX; DYSPHAGIA; CHRONIC RHINITIS) Loss of Vision: Denies Hearing Impairment: Denies Cancer History of Cancer: No Psychosocial History of Psychiatric Problem: Yes Behavioral Health Disorders: Sleep Difficulties, Anxiety, Depression Suicide Risk Score: 0 Integumentary History of Skin or Integumenta: Yes (CANDIDIASIS) Blood Transfusions History of Blood Disorders: No Adverse Reaction to a Blood Tr: No (No bllod transfusions d/t TAYE) Family Medical History Significant Family History: CVA, Diabetes Family Medial History: Completed stroke 19 FATHER G8 BROTHER Diabetes mellitus G8 BROTHER Hypertension 19 FATHER 19 MOTHER Physical Exam Vital Signs Vital Sign - Last 12Hours 08/28/17 08/29/17 22:21 01:44 Temp 102.6 Pulse 95 Resp 20 B/P (MAP) 146/53 (84) Pulse Ox 92 O2 Delivery Room Air O2 Flow Rate 2.00 Capillary Refill : Less Than 3 Seconds General Appearance: Obese (MORBIDLY), Other (MILDLY DYSPNEIC, SOMEWHAT LETHARGIC. ) HEENT: PERRL/EOMI, Other (ORAL MUCOSA SLIGHTLY DRY) Neck: Full Range of Motion Respiratory: No Accessory Muscle Use, Accessory Muscle Use, Decreased Breath Sounds, Rales (FAINT RALES BILATERALLY), Other (MILDLY DYSPNEIC/TACHYPNEICA) Cardiovascular: No Murmur, Tachycardia (MILD) Gastrointestinal: Non Tender, Soft Extremity: Normal Capillary Refill, Other (1+ SWELLING AND FAINT ERYTHEMA TO RIGHT LOWER LEG. 4+ EDEMA TO LEFT LEG, WITH SIGNFICANT ERYTHEMA/INDURATION, WARMTH AND TENDERNESS TO ENTIRE LEFT LOWER LEG, WITH ERYTHEMA/WARMTH/ TENDERNESS EXTENDING ALL THE WAY UP LEFT LATERAL THIGHT TO TH LEFT HIP. DOES NOT APPEAR TO EXTEND TO ABDOMEN. UNABLE TO VISUALIZE BUTTOCK AREA DUE TO OBESITY. DISTAL VASCULAR INTACT. LEFT ARM AND LEG WITH FLACCID PARALYSIS AND DECREASED SENSATION. RIGHT ARM AND LEG WITH MOTOR/SENSORY/VASCULAR INTACT. 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: Alert, Oriented x3, Other (FLACCID PARALYIS ON LEFT) Skin: Normal Color, Warm/Dry, Other (LEGS NOTED ABOVE) Focused Exam Evaluation Lactate Level Laboratory Tests 08/28/17 22:50: Lactic Acid Level 2.50*H 08/29/17 00:59: Lactic Acid Level 0.45L Progress/Results/Core Measures Suspected Sepsis Recent Fever Within 48 Hours: No Infection Criteria Present: Documented Infection New/Unexplained Altered Menta: No Sepsis Screen: Severe Sepsis Risk Sepsis Diagnosis: SIRS Temperature:100.2 Pulse: 99 Respiratory Rate: 16 Laboratory Tests 08/28/17 22:50: White Blood Count 18.8H 08/29/17 05:25: White Blood Count 16.6H Blood Pressure 106 /65 Mean: 79 Laboratory Tests 08/28/17 22:50: Lactic Acid Level 2.50*H 08/29/17 00:59: Lactic Acid Level 0.45L Laboratory Tests 08/28/17 22:50: Creatinine 1.59H, INR Comment 1.2, Platelet Count 255, Total Bilirubin 0.6 08/29/17 05:25: Creatinine 1.95H, Platelet Count 213, Total Bilirubin 0.7 Results/Orders Lab Results Laboratory Tests Test 08/28/17 00:34 08/28/17 22:50 08/29/17 00:59 08/29/17 04:19 Range/Units Urine Color YELLOW Urine Clarity SLIGHTLY CLOUDY Urine pH 6 5-9 Urine Specific [place] 1.015 L 1.016-1.022 Urine Protein 4+ NEGATIVE Urine Glucose (UA) 2+ H NEGATIVE Urine Ketones NEGATIVE NEGATIVE Urine Nitrite NEGATIVE NEGATIVE Urine Bilirubin NEGATIVE NEGATIVE Urine Urobilinogen NORMAL NORMAL MG/DL Urine Leukocyte Esterase 2+ H NEGATIVE Urine RBC (Auto) 2+ H NEGATIVE Urine RBC 5-10 H /HPF Urine WBC 10-25 H /HPF Urine Squamous Epithelial Cells 0-2 /HPF Urine Crystals NONE /LPF Urine Bacteria LARGE H /HPF Urine Casts NONE /LPF Urine Mucus NEGATIVE /LPF Urine Culture Indicated YES White Blood Count 18.8 H 4.3-11.0 10^3/uL Red Blood Count 4.46 4.35-5.85 10^6/uL Hemoglobin 10.6 L 11.5-16.0 G/DL Hematocrit 34 L 35-52 % Mean Corpuscular Volume 75 L 80-99 FL Mean Corpuscular Hemoglobin 24 L 25-34 PG Mean Corpuscular Hemoglobin Concent 32 32-36 G/DL Red Cell Distribution Width 15.1 H 10.0-14.5 % Platelet Count 255 130-400 10^3/uL Mean Platelet Volume 9.5 7.4-10.4 FL Neutrophils (%) (Auto) 90 H 42-75 % Lymphocytes (%) (Auto) 6 L 12-44 % Monocytes (%) (Auto) 4 0-12 % Eosinophils (%) (Auto) 0 0-10 % Basophils (%) (Auto) 0 0-10 % Neutrophils # (Auto) 16.9 H 1.8-7.8 X 10^3 Lymphocytes # (Auto) 1.1 1.0-4.0 X 10^3 Monocytes # (Auto) 0.8 0.0-1.0 X 10^3 Eosinophils # (Auto) 0.0 0.0-0.3 10^3/uL Basophils # (Auto) 0.0 0.0-0.1 10^3/uL Neutrophils % (Manual) 79 % Lymphocytes % (Manual) 8 % Monocytes % (Manual) 2 % Eosinophils % (Manual) 0 % Basophils % (Manual) 0 % Band Neutrophils 11 % Blood Morphology Comment NORMAL Prothrombin Time 15.0 H 12.2-14.7 SEC INR Comment 1.2 0.8-1.4 Activated Partial Thromboplast Time 29 24-35 SEC Sodium Level 131 L 135-145 MMOL/L Potassium Level 4.8 3.6-5.0 MMOL/L Chloride Level 98 98-107 MMOL/L Carbon Dioxide Level 20 L 21-32 MMOL/L Anion Gap 13 5-14 MMOL/L Blood Urea Nitrogen 17 7-18 MG/DL Creatinine 1.59 H 0.60-1.30 MG/DL Estimat Glomerular Filtration Rate 32 BUN/Creatinine Ratio 11 Glucose Level 202 H 70-105 MG/DL Lactic Acid Level 2.50 *H 0.45 L 0.50-2.00 MMOL/L Calcium Level 9.1 8.5-10.1 MG/DL Magnesium Level 1.8 1.8-2.4 MG/DL Total Bilirubin 0.6 0.1-1.0 MG/DL Aspartate Amino Transf (AST/SGOT) 46 H 5-34 U/L Alanine Aminotransferase (ALT/SGPT) 36 0-55 U/L Alkaline Phosphatase 103 40-136 U/L Troponin I < 0.30 <0.30 NG/ML B-Type Natriuretic Peptide 115.6 H <100.0 PG/ML Total Protein 8.4 H 6.4-8.2 GM/DL Albumin 3.6 3.2-4.5 GM/DL Amylase Level 34 25-125 U/L Lipase 23 8-78 U/L Glucometer 231 H 70-110 MG/DL Test 08/29/17 05:25 Range/Units White Blood Count 16.6 H 4.3-11.0 10^3/uL Red Blood Count 3.64 L 4.35-5.85 10^6/uL Hemoglobin 8.7 L 11.5-16.0 G/DL Hematocrit 28 L 35-52 % Mean Corpuscular Volume 76 L 80-99 FL Mean Corpuscular Hemoglobin 24 L 25-34 PG Mean Corpuscular Hemoglobin Concent 31 L 32-36 G/DL Red Cell Distribution Width 14.8 H 10.0-14.5 % Platelet Count 213 130-400 10^3/uL Mean Platelet Volume 9.4 7.4-10.4 FL Neutrophils (%) (Auto) 89 H 42-75 % Lymphocytes (%) (Auto) 6 L 12-44 % Monocytes (%) (Auto) 5 0-12 % Eosinophils (%) (Auto) 0 0-10 % Basophils (%) (Auto) 0 0-10 % Neutrophils # (Auto) 14.8 H 1.8-7.8 X 10^3 Lymphocytes # (Auto) 1.1 1.0-4.0 X 10^3 Monocytes # (Auto) 0.8 0.0-1.0 X 10^3 Eosinophils # (Auto) 0.0 0.0-0.3 10^3/uL Basophils # (Auto) 0.0 0.0-0.1 10^3/uL Sodium Level 131 L 135-145 MMOL/L Potassium Level 4.2 3.6-5.0 MMOL/L Chloride Level 100 98-107 MMOL/L Carbon Dioxide Level 21 21-32 MMOL/L Anion Gap 10 5-14 MMOL/L Blood Urea Nitrogen 20 H 7-18 MG/DL Creatinine 1.95 H 0.60-1.30 MG/DL Estimat Glomerular Filtration Rate 26 BUN/Creatinine Ratio 10 Glucose Level 244 H 70-105 MG/DL Calcium Level 7.9 L 8.5-10.1 MG/DL Total Bilirubin 0.7 0.1-1.0 MG/DL Aspartate Amino Transf (AST/SGOT) 18 5-34 U/L Alanine Aminotransferase (ALT/SGPT) 24 0-55 U/L Alkaline Phosphatase 73 40-136 U/L Total Protein 6.1 L 6.4-8.2 GM/DL Albumin 2.8 L 3.2-4.5 GM/DL Micro Results Microbiology 08/28/17 Influenza Types A,B Antigen ([place]) - Final, Complete My Orders Orders - NOELLE CLARK DO Saline Lock/Iv-Start (08/28/17 22:31) O2 (08/28/17 22:31) Monitor-Rhythm Ecg Trace Only (08/28/17 22:31) Amylase (08/28/17 22:31) BNP (08/28/17 22:31) Cbc With Automated Diff (08/28/17 22:31) Comprehensive Metabolic Panel (08/28/17 22:31) Lactic Acid Analyzer (08/28/17 22:31) Lipase (08/28/17 22:31) Magnesium (08/28/17 22:31) Protime With Inr (08/28/17 22:31) Partial Thromboplastin Time (08/28/17 22:31) Troponin I (08/28/17 22:31) Ua Culture If Indicated (08/28/17 22:31) Blood Culture (08/28/17 22:31) Influenza A And B Antigens (08/28/17 22:31) Ibuprofen Tablet (Motrin Tablet) (08/28/17 22:45) Saline Lock/Iv-Start (08/28/17 22:31) Ns Iv 1000 Ml (Sodium Chloride 0.9%) (08/28/17 22:31) Ondansetron Injection (Zofran Injectio (08/28/17 22:45) Chest 1 View, Ap/Pa Only (08/28/17 22:43) Manual Differential (08/28/17 22:50) Catheter(Urinary) Insert & Ass 03,15 (08/28/17 23:43) Us Venous Lower Ext Lt (08/29/17 ) Urine Culture (08/28/17 00:34) Vancomycin Injection (Vancomycin Injecti (08/29/17 01:30) Ns (Ivpb) (Sodium Chloride 0.9%) (08/29/17 01:17) Vancomycin Injection (Vancomycin Injecti (08/29/17 01:17) Medications Given in ED Current Medications Medications Dose Ordered Sig/Helen Route Start Time Stop Time Status Last Admin Dose Admin Ibuprofen 800 mg ONCE ONCE PO 08/28/17 22:45 08/28/17 22:46 DC 08/28/17 23:38 800 MG Ondansetron HCl 4 mg ONCE ONCE IVP 08/28/17 22:45 08/28/17 22:46 DC 08/28/17 23:38 4 MG Sodium Chloride 1,000 ml @ 0 mls/hr Q0M ONCE IV 08/28/17 22:31 08/28/17 22:35 DC 08/28/17 23:38 1,000 MLS/HR Vital Signs/I&O Vital Sign - Last 12Hours 08/28/17 08/29/17 08/29/17 08/29/17 22:21 01:44 01:50 02:00 Temp 102.6 99.4 100.2 Pulse 95 86 99 Resp 20 20 18 B/P (MAP) 146/53 (84) 92/52 (65) Pulse Ox 92 96 91 O2 Delivery Room Air Nasal Cannula Nasal Cannula Room Air O2 Flow Rate 2.00 2.00 08/29/17 08/29/17 08/29/17 02:41 04:32 05:32 Temp 99.3 97.6 Pulse 99 94 87 Resp 16 B/P (MAP) 106/65 (79) 101/64 (76) 97/63 (74) Pulse Ox 95 95 95 O2 Delivery Room Air Nasal Cannula Nasal Cannula O2 Flow Rate 2.00 2.00 Intake and Output 08/29/17 00:00 Intake Total 1000 ml Balance 1000 ml Capillary Refill : Less Than 3 Seconds Blood Pressure Mean: 79 Progress Note : Progress Note NO DETERIORATION IN PT'S CONDITION DURING ER STAY VITALS STABLE, O2 SATS IN MID 90'S ON O2 AT 2L/NC Diagnostic Imaging Comments CXR--QUESTIONABLE PATCHY INFILTRATES ON RIGHT ?, PENDING RADIOLOGIST REVIEW ULTRASOUND LEFT LEG--NO DVT, CALF VEINS NOT VISUALIZED DUE TO EDEMA--PER [facility] VIA FAX @ 2552 Reviewed: Reviewed by Me Departure Communication (Admissions) Progress Notes 0100--SPOKE WITH DR. FREEDMAN, TOUR CONDUCTOR FOR [facility] [place]. ACCEPTS PT FOR ADMIT Impression Impression: Primary Impression: Sepsis Additional Impressions: Cellulitis of left leg UTI (urinary tract infection) Dehydration Renal insufficiency Electrolyte imbalance POSSIBLE PNEUMONIA WITH HYPOXIA S/P CVA WITH LEFT SIDE PARALYSIS CHRONIC LEFT LEG EDEMA Disposition: ADMITTED INPATIENT Condition: Stable Admissions Decision to Admit Reason: Admit from ER (General) Decision to Admit/Date: Aug 29, 2017 Time/Decision to Admit Time: 01:00 Departure-Patient Inst. Referrals: HERMINIA YAO MD (PCP/Family) Primary Care Physician NOELLE CLARK DO Aug 29, 2017 04:52
[2017-08-29 05:51] LABS: BASOPHILS % (AUTO) 0 % (0-10); EOSINOPHILS % (AUTO) 0 % (0-10); LYMPHOCYTES # (AUTO) 1.1 X 10^3 (1.0-4.0); LYMPHOCYTES % (AUTO) 6 % (12-44); MEAN CORPUSCULAR HEMOGLOBIN 24 PG (25-34); MEAN CORPUSCULAR HGB CONC 31 G/DL (32-36); MEAN CORPUSCULAR VOLUME 76 FL (80-99); MEAN PLATELET VOLUME 9.4 FL (7.4-10.4); MONOCYTES # (AUTO) 0.8 X 10^3 (0.0-1.0); MONOCYTES % (AUTO) 5 % (0-12); NEUTROPHILS # (AUTO) 14.8 X 10^3 (1.8-7.8); NEUTROPHILS % (AUTO) 89 % (42-75); PLATELET COUNT 213 10^3/uL (130-400); RED BLOOD COUNT 3.64 10^6/uL (4.35-5.85); RED CELL DISTRIBUTION WIDTH 14.8 % (10.0-14.5); WHITE BLOOD COUNT 16.6 10^3/uL (4.3-11.0)
[2017-08-29 06:09] LABS: ALBUMIN 2.8 GM/DL (3.2-4.5); BILIRUBIN,TOTAL 0.7 MG/DL (0.1-1.0); CALCIUM 7.9 MG/DL (8.5-10.1); CREATININE SERUM 1.95 MG/DL (0.60-1.30); POTASSIUM 4.2 MMOL/L (3.6-5.0); TOTAL PROTEIN 6.1 GM/DL (6.4-8.2)
--- NOTE | 2017-08-29 06:30 | History & Physicial (CHS) ---
HPI History of Present Illness: 66-year-old female presents to [facility] emergency department during the edge plugger of August 29, 2017 from the senior living after apparently noticing fever as well as redness on her lower extremity. Apparently she does also have pain to the left lower extremity as well. She is a resident of senior living and I was informed of a temperature while patient was at the senior living of it being 103. She was also noted to have oxygen saturations of 89 percent on room air at the senior living. She did receive Tylenol at the senior living. She does also admit to a mild cough. Source: patient, other (FCI) Exam Limitations: clinical condition Date seen by provider: Aug 29, 2017 Time Seen by Provider: 08:00 Attending Physician Roberto Ramírez MD PCP Roberto Ramírez MD Consult Date of Admission Aug 29, 2017 at 01:00 Home Medications Home Medications Reviewed patient Home Medication Reconciliation Form Allergies Coded Allergies: sulfamethoxazole (Verified Allergy, Unknown, 04/09/16) trimethoprim (Verified Allergy, Unknown, 04/09/16) NHP-Zxjreq-Rjyqde Hx Patient Social History Alcohol Use: Denies Use Recreational Drug Use: No Smoking Status: Former Smoker Type Used: Cigarettes 2nd Hand Smoke Exposure: No Recent Foreign Travel: No Contact w/other who traveled: No Recent Hopitalizations: No Recent Infectious Disease Expo: No Physical Abuse Screen: No Sexual Abuse: No Family Medical History Significant Family History: CVA, Diabetes Family History: Completed stroke 19 FATHER G8 BROTHER Diabetes mellitus G8 BROTHER Hypertension 19 FATHER 19 MOTHER Review of Systems (CHC) Constitutional: see HPI Reviewed Test Results Reviewed Test Results Lab Laboratory Tests Test 08/28/17 22:50 08/29/17 00:59 08/29/17 04:19 08/29/17 05:25 Range/Units White Blood Count 18.8 H 16.6 H 4.3-11.0 10^3/uL Red Blood Count 4.46 3.64 L 4.35-5.85 10^6/uL Hemoglobin 10.6 L 8.7 L 11.5-16.0 G/DL Hematocrit 34 L 28 L 35-52 % Mean Corpuscular Volume 75 L 76 L 80-99 FL Mean Corpuscular Hemoglobin 24 L 24 L 25-34 PG Mean Corpuscular Hemoglobin Concent 32 31 L 32-36 G/DL Red Cell Distribution Width 15.1 H 14.8 H 10.0-14.5 % Platelet Count 255 213 130-400 10^3/uL Mean Platelet Volume 9.5 9.4 7.4-10.4 FL Neutrophils (%) (Auto) 90 H 89 H 42-75 % Lymphocytes (%) (Auto) 6 L 6 L 12-44 % Monocytes (%) (Auto) 4 5 0-12 % Eosinophils (%) (Auto) 0 0 0-10 % Basophils (%) (Auto) 0 0 0-10 % Neutrophils # (Auto) 16.9 H 14.8 H 1.8-7.8 X 10^3 Lymphocytes # (Auto) 1.1 1.1 1.0-4.0 X 10^3 Monocytes # (Auto) 0.8 0.8 0.0-1.0 X 10^3 Eosinophils # (Auto) 0.0 0.0 0.0-0.3 10^3/uL Basophils # (Auto) 0.0 0.0 0.0-0.1 10^3/uL Neutrophils % (Manual) 79 % Lymphocytes % (Manual) 8 % Monocytes % (Manual) 2 % Eosinophils % (Manual) 0 % Basophils % (Manual) 0 % Band Neutrophils 11 % Blood Morphology Comment NORMAL Prothrombin Time 15.0 H 12.2-14.7 SEC INR Comment 1.2 0.8-1.4 Activated Partial Thromboplast Time 29 24-35 SEC Sodium Level 131 L 131 L 135-145 MMOL/L Potassium Level 4.8 4.2 3.6-5.0 MMOL/L Chloride Level 98 100 98-107 MMOL/L Carbon Dioxide Level 20 L 21 21-32 MMOL/L Anion Gap 13 10 5-14 MMOL/L Blood Urea Nitrogen 17 20 H 7-18 MG/DL Creatinine 1.59 H 1.95 H 0.60-1.30 MG/DL Estimat Glomerular Filtration Rate 32 26 BUN/Creatinine Ratio 11 10 Glucose Level 202 H 244 H 70-105 MG/DL Lactic Acid Level 2.50 *H 0.45 L 0.50-2.00 MMOL/L Calcium Level 9.1 7.9 L 8.5-10.1 MG/DL Magnesium Level 1.8 1.8-2.4 MG/DL Total Bilirubin 0.6 0.7 0.1-1.0 MG/DL Aspartate Amino Transf (AST/SGOT) 46 H 18 5-34 U/L Alanine Aminotransferase (ALT/SGPT) 36 24 0-55 U/L Alkaline Phosphatase 103 73 40-136 U/L Troponin I < 0.30 <0.30 NG/ML B-Type Natriuretic Peptide 115.6 H <100.0 PG/ML Total Protein 8.4 H 6.1 L 6.4-8.2 GM/DL Albumin 3.6 2.8 L 3.2-4.5 GM/DL Amylase Level 34 25-125 U/L Lipase 23 8-78 U/L Glucometer 231 H 70-110 MG/DL Physical Exam-(CHC) Physical Exam Vital Signs VS - Last 72 Hours, by Label 08/28/17 08/29/17 08/29/17 08/29/17 22:21 01:44 01:50 02:00 Temp 102.6 99.4 100.2 Pulse 95 86 99 Resp 20 20 18 B/P (MAP) 146/53 (84) 92/52 (65) Pulse Ox 92 96 91 O2 Delivery Room Air Nasal Cannula Nasal Cannula Room Air O2 Flow Rate 2.00 2.00 08/29/17 08/29/17 08/29/17 08/29/17 02:41 04:32 05:32 07:08 Temp 99.3 97.6 Pulse 99 94 87 Resp 16 B/P (MAP) 106/65 (79) 101/64 (76) 97/63 (74) Pulse Ox 95 95 95 O2 Delivery Room Air Nasal Cannula Nasal Cannula Nasal Cannula O2 Flow Rate 2.00 2.00 2.00 08/29/17 08:00 Temp 97.5 Pulse 92 B/P (MAP) 108/70 (83) Pulse Ox 92 O2 Delivery Nasal Cannula O2 Flow Rate 2.00 Capillary Refill : Less Than 3 Seconds General Appearance: no apparent distress Eyes: Bilateral Eye Normal Inspection HEENT: normal ENT inspection, pharynx normal Neck: supple Respiratory: lungs clear Cardiovascular: regular rate, rhythm Gastrointestinal: soft Extremities: inflammation (Noted of the left lower extremity and obvious discrepancy in size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: oriented x 3 Skin: normal color Clinical Quality Measures DVT/VTE Risk/Contraindication: Risk Factor Score Per Nursin RFS Level Per Nursing on Admit: 4+=Very High Assessment/Plan Assessment/Plan Admission Dx 1. Sepsis as evident by lactic acid, fever, tachycardia 2. Left leg cellulitis 3. Urinary tract infection 4. Dehydration 5. Renal insufficiency 6. Hypoxia due to bronchitis or early pneumonia 7. Status post CVA with left-sided paralysis 8. Chronic left leg edema Plan 1. Sepsis as evident by lactic acid, fever, tachycardia -Patient admitted for IV vancomycin -Follow CBC and recheck lactic acid 2. Left leg cellulitis -Vancomycin 3. Urinary tract infection -Vancomycin 4. Dehydration -IV fluid rehydration at 120 mL per hour 5. Renal insufficiency -Recheck creatinine in the morning 6. Hypoxia due to bronchitis or early pneumonia -Pending official radiology evaluation 7. Status post CVA with left-sided paralysis 8. Chronic left leg edema SHIRA FREEDMAN MD Aug 29, 2017 06:29
[2017-08-29] MEDS: inSUlin (REGULAR) HUMAN 1 UNIT/0.01 ML (CHARGE PER UNIT) SC SCH ×4 (06:32→20:36)
--- NOTE | 2017-08-29 07:07 | Diagnostic Imaging Report ---
PROCEDURE: US left lower extremity venous. TECHNIQUE: Multiple real-time grayscale images were obtained over the left lower extremity in various projections. Additional duplex Doppler and color Doppler images were also obtained. INDICATION: Left lower extremity swelling and redness. Findings: The left common femoral, femoral and popliteal veins are patent by color doppler imaging and without DVT. Visualized proximal aspects of the greater saphenous and deep femoral veins are also patent. All of the evaluated deep venous structures demonstrate normal compressibility and waveform augmentation where applicable. The calf veins are not visualized due to lower leg swelling. Impression: No left lower extremity deep venous thrombosis (DVT). Findings are in agreement with the preliminary report. Dictated by: Dictated on workstation # [id number]
--- NOTE | 2017-08-29 07:25 | Diagnostic Imaging Report ---
CHEST 1 VIEW, AP/PA ONLY INDICATION: Shortness of air and fever. COMPARISON: 03/30/17. FINDINGS: Examination is limited by portable technique and patient's body habitus. Hazy opacities over the right lung base are similar to prior examination. No definitive pleural effusion or pneumothorax. Stable cardiomegaly without atherosclerotic aorta. IMPRESSION: 1. Limited examination due to portable technique and patient body habitus. 2. Right basilar ill-defined opacities could be due to summation artifact as they have not significantly changed since prior exam. However, an infectious process could have this same appearance. If it will alter patient management, PA and lateral chest radiographs would be much better to assess the lungs. Dictated by: Dictated on workstation # [id number]
[2017-08-29] MEDS ORDERED: INFLUENZA TRIvalent 2017-2018 0.5 ML/45 MCG SYR IM ONE (08:30)
--- NOTE | 2017-08-29 09:36 | Diagnostic Imaging Report ---
INDICATION: Pneumonia, left-sided paralysis. TECHNIQUE: Two view chest 9:25 AM CORRELATION STUDY: 08/28/2017 FINDINGS: Heart size remains enlarged and mediastinum is prominent. Vasculature overall within normal limits. Density in the right lung base do appear to be somewhat more prominent, may reflect underlying atelectasis or developing infiltrate. Somewhat accentuated kyphotic curvature. IMPRESSION: 1. Suspect increasing atelectasis or infiltrate at the right lung base. Dictated by: Dictated on workstation # [id number]
[2017-08-29] MEDS ORDERED: ATOR20TA66 PO (12:02)
[2017-08-29] MEDS ORDERED: INSU100I14 SQ (12:02)
[2017-08-29] MEDS ORDERED: MELA1TAB27 PO (12:02)
[2017-08-29] MEDS ORDERED: BETH10TA PO (12:02)
[2017-08-29] MEDS ORDERED: ACET-93 PO (12:02)
[2017-08-29] MEDS ORDERED: GLUC1CAP37 PO (12:02)
[2017-08-29] MEDS ORDERED: BISA10SU6 RC (12:02)
[2017-08-29] MEDS ORDERED: CITA10TA7 PO (12:02)
[2017-08-29] MEDS ORDERED: MAGN400O7 PO (12:02)
[2017-08-29] MEDS ORDERED: PHEN57OI3 RC (12:02)
[2017-08-29] MEDS ORDERED: CLOP75TA28 PO (12:02)
[2017-08-29] MEDS ORDERED: BLOOD SUGAR PO (12:02)
[2017-08-29] MEDS ORDERED: PANT20TA3 PO (12:02)
[2017-08-29] MEDS ORDERED: CRAN1TAB5 PO (12:02)
[2017-08-29] MEDS ORDERED: VALE500C PO (12:02)
[2017-08-29] MEDS ORDERED: COD28PAS TP ×2 (12:02)
[2017-08-29] MEDS: ACETAMINOPHEN 500 MG TAB (TYLENOL) PO PRN (15:37)
[2017-08-29] MEDS ORDERED: BISACODYL 10 MG SUPP (DULCOLAX) RC PRN (16:45)
[2017-08-29] MEDS ORDERED: ACETAMINOPHEN 500 MG TAB (TYLENOL) PO PRN (16:45)
[2017-08-29] MEDS ORDERED: MILK OF MAGNESIA 400 MG/5 ML 30 ML UDC PO PRN (16:45)
[2017-08-29] MEDS ORDERED: SALINE NASAL SPRAY (OCEAN) 45 ML BTL NS PRN (16:45)
[2017-08-29] MEDS: ATORVASTATIN 20 MG (LIPITOR) TABLET PO SCH (20:32)
[2017-08-29] MEDS: MELATONIN 3 MG TABLET PO SCH (20:32)
[2017-08-29] MEDS: ASPIRIN 81 MG CHEW (CHILDREN'S ASA) PO SCH (20:32)
[2017-08-29] MEDS: BETHANECHOL 10 MG (URECHOLINE) TAB PO SCH (20:32)
[2017-08-29] MEDS: VITAMIN D3 5,000 UNITS (CHOLECALCIFEROL ) CAPSULE PO SCH (20:32)
[2017-08-29] MEDS: inSUlin DETERMIR 1 UNIT/0.01 ML (LEVEMIR) CHARGE PER UNIT SQ SCH (20:36)
[2017-08-29] MEDS ORDERED: RT-SYMBICORT 160/4.5 MCG INHALER PER PUFF IH SCH (21:00)
[2017-08-29] MEDS ORDERED: INSULIN DETEMIR 40 UNIT SQ SCH (21:00)
[2017-08-29] MEDS: RT-ADVAIR HFA 115/21 MCG PER PUFF IH SCH (21:27)
[2017-08-29] MEDS ORDERED: meTOprolol SUCCINATE 100 MG (TOPROL XL) TAB PO ONE (23:23)
[2017-08-29] MEDS: meTOprolol SUCCINATE 100 MG (TOPROL XL) TAB PO SCH (23:26)
[2017-08-30] MEDS: VANCOMYCIN 1250 MG/NS 250 ML IVPB IV SCH ×2 (02:36)
[2017-08-30] MEDS: ACETAMINOPHEN 500 MG TAB (TYLENOL) PO PRN ×2 (03:42→10:27)
[2017-08-30 04:02] VITALS: BP 128/58
[2017-08-30] MEDS: 1/2 NS IV SOLUTION 1,000 ML IV SCH (05:28)
[2017-08-30 05:54] LABS: BASOPHILS % (AUTO) 0 % (0-10); EOSINOPHILS # (AUTO) 0.1 10^3/uL (0.0-0.3); EOSINOPHILS % (AUTO) 0 % (0-10); LYMPHOCYTES # (AUTO) 1.2 X 10^3 (1.0-4.0); LYMPHOCYTES % (AUTO) 8 % (12-44); MEAN CORPUSCULAR HEMOGLOBIN 23 PG (25-34); MEAN CORPUSCULAR HGB CONC 31 G/DL (32-36); MEAN CORPUSCULAR VOLUME 76 FL (80-99); MEAN PLATELET VOLUME 9.6 FL (7.4-10.4); MONOCYTES # (AUTO) 0.5 X 10^3 (0.0-1.0); MONOCYTES % (AUTO) 3 % (0-12); NEUTROPHILS # (AUTO) 13.4 X 10^3 (1.8-7.8); NEUTROPHILS % (AUTO) 89 % (42-75); PLATELET COUNT 189 10^3/uL (130-400); RED BLOOD COUNT 3.43 10^6/uL (4.35-5.85); RED CELL DISTRIBUTION WIDTH 14.9 % (10.0-14.5); WHITE BLOOD COUNT 15.2 10^3/uL (4.3-11.0)
[2017-08-30 06:16] LABS: ALBUMIN 2.7 GM/DL (3.2-4.5); BILIRUBIN,TOTAL 0.6 MG/DL (0.1-1.0); CALCIUM 7.8 MG/DL (8.5-10.1); CREATININE SERUM 1.36 MG/DL (0.60-1.30); POTASSIUM 3.9 MMOL/L (3.6-5.0); TOTAL PROTEIN 6.2 GM/DL (6.4-8.2)
[2017-08-30] MEDS: PANTOPRAZOLE 20 MG TABLET (PROTONIX) PO SCH (06:40)
[2017-08-30] MEDS: MULTIVIT W/MINERALS TAB (THERAGRAN M) PO SCH (06:40)
[2017-08-30] MEDS: inSUlin (REGULAR) HUMAN 1 UNIT/0.01 ML (CHARGE PER UNIT) SC SCH ×4 (06:40→21:07)
[2017-08-30] MEDS: RT-ADVAIR HFA 115/21 MCG PER PUFF IH SCH ×2 (07:35→20:03)
[2017-08-30 08:00] VITALS: BP 119/60
[2017-08-30] MEDS: meTOprolol SUCCINATE 100 MG (TOPROL XL) TAB PO SCH (08:59)
[2017-08-30] MEDS: CLOPIDOGREL 75 MG (PLAVIX) TABLET PO SCH (08:59)
[2017-08-30] MEDS: amLODIPine 5 MG (NORVASC) TAB PO SCH (08:59)
[2017-08-30] MEDS: inSUlin DETERMIR 1 UNIT/0.01 ML (LEVEMIR) CHARGE PER UNIT SQ SCH ×2 (09:00→21:09)
[2017-08-30] MEDS ORDERED: NS IV 1000 ML 1,000 ML IV SCH (09:00)
[2017-08-30] MEDS: BETHANECHOL 10 MG (URECHOLINE) TAB PO SCH ×2 (09:00→20:21)
[2017-08-30] MEDS: cefTRIAXone INJECTION 1,000 MG in NS (IVPB) 50 ML IV SCH (09:14)
--- NOTE | 2017-08-30 09:56 | Progress Note-Hospitalist ---
Progress Note Progress Notes/Assess & Plan Date Seen 08/30/17 Time Seen by Provider: 09:30 Diagonsis/Assessment & Plan Pt doing about the same. Left sided HP precludes any real activity Uses wheelchair at [place] Added Rocephin for UTI after reviewing UCx Left leg cellulitis is much improved Max fever 101.6 AF presently, pleasant, flat affect, tracks slowly RRR, CTAB minimal breath sounds in bases due to lack of excursion Left leg improved erythema and edema Laboratory Tests 08/30/17 05:43 Assessment: Acute left lower leg cellulitis w/fever and sepsis Remote CVA w/left sided HP HTN Acute on chronic RI Anemia likely of renal disease Acute UTI Hyponatremia Plan: IVF but change to NS and fluid restriction ordered Add Rocephin Continue meds Check labs in am OOB in chair ALEJANDRA RUSH DO Aug 30, 2017 09:56
[2017-08-30 12:00] VITALS: BP 124/60
[2017-08-30] MEDS: NS IV 1000 ML 1,000 ML IV SCH ×2 (13:03→20:21)
[2017-08-30 16:00] VITALS: BP 124/78
[2017-08-30 19:43] VITALS: BP 140/81
[2017-08-30] MEDS: VITAMIN D3 5,000 UNITS (CHOLECALCIFEROL ) CAPSULE PO SCH (20:21)
[2017-08-30] MEDS: ASPIRIN 81 MG CHEW (CHILDREN'S ASA) PO SCH (20:21)
[2017-08-30] MEDS: MELATONIN 3 MG TABLET PO SCH (20:21)
[2017-08-30] MEDS: ATORVASTATIN 20 MG (LIPITOR) TABLET PO SCH (20:21)
[2017-08-31] VITALS: BP 148/65
[2017-08-31] MEDS: ACETAMINOPHEN 500 MG TAB (TYLENOL) PO PRN (00:08)
[2017-08-31] MEDS ORDERED: TROUGH ORDER-PHARMACY XX NR (02:00)
[2017-08-31] MEDS: VANCOMYCIN 1250 MG/NS 250 ML IVPB IV SCH ×4 (02:56→02:59)
[2017-08-31 04:00] VITALS: BP 122/59
[2017-08-31 05:37] LABS: ALBUMIN 2.5 GM/DL (3.2-4.5); BILIRUBIN,TOTAL 0.2 MG/DL (0.1-1.0); CREATININE SERUM 1.25 MG/DL (0.60-1.30)
[2017-08-31] MEDS: PANTOPRAZOLE 20 MG TABLET (PROTONIX) PO SCH (05:46)
[2017-08-31] MEDS: MULTIVIT W/MINERALS TAB (THERAGRAN M) PO SCH (05:46)
[2017-08-31] MEDS: inSUlin (REGULAR) HUMAN 1 UNIT/0.01 ML (CHARGE PER UNIT) SC SCH ×2 (05:47→11:31)
[2017-08-31 05:59] LABS: BASOPHILS % (AUTO) 0 % (0-10); EOSINOPHILS # (AUTO) 0.2 10^3/uL (0.0-0.3); EOSINOPHILS % (AUTO) 1 % (0-10); LYMPHOCYTES # (AUTO) 1.3 X 10^3 (1.0-4.0); LYMPHOCYTES % (AUTO) 10 % (12-44); MEAN CORPUSCULAR HEMOGLOBIN 24 PG (25-34); MEAN CORPUSCULAR HGB CONC 32 G/DL (32-36); MEAN CORPUSCULAR VOLUME 75 FL (80-99); MEAN PLATELET VOLUME 9.9 FL (7.4-10.4); MONOCYTES # (AUTO) 0.9 X 10^3 (0.0-1.0); MONOCYTES % (AUTO) 6 % (0-12); NEUTROPHILS # (AUTO) 11.4 X 10^3 (1.8-7.8); NEUTROPHILS % (AUTO) 83 % (42-75); PLATELET COUNT 208 10^3/uL (130-400); RED BLOOD COUNT 3.38 10^6/uL (4.35-5.85); RED CELL DISTRIBUTION WIDTH 14.9 % (10.0-14.5); WHITE BLOOD COUNT 13.8 10^3/uL (4.3-11.0)
[2017-08-31] MEDS: RT-ADVAIR HFA 115/21 MCG PER PUFF IH SCH (06:40)
[2017-08-31 08:00] VITALS: BP 132/63
[2017-08-31] MEDS: cefTRIAXone INJECTION 1,000 MG in NS (IVPB) 50 ML IV SCH (08:07)
[2017-08-31] MEDS: NS IV 1000 ML 1,000 ML IV SCH (08:07)
[2017-08-31] MEDS: CLOPIDOGREL 75 MG (PLAVIX) TABLET PO SCH (08:09)
[2017-08-31] MEDS: BETHANECHOL 10 MG (URECHOLINE) TAB PO SCH (08:09)
[2017-08-31] MEDS: meTOprolol SUCCINATE 100 MG (TOPROL XL) TAB PO SCH (08:09)
[2017-08-31] MEDS: amLODIPine 5 MG (NORVASC) TAB PO SCH (08:09)
[2017-08-31] MEDS: inSUlin DETERMIR 1 UNIT/0.01 ML (LEVEMIR) CHARGE PER UNIT SQ SCH (08:10)
[2017-08-31] MEDS ORDERED: IRON SUCROSE INJECTION 200 MG in NS (IVPB) 100 ML IV NR (09:21)
[2017-08-31] MEDS ORDERED: IRON150C3 PO (09:37)
[2017-08-31] MEDS ORDERED: CEPH-507 PO (09:37)
--- NOTE | 2017-08-31 09:38 | Discharge Summary-Hospitalist ---
Diagnosis/Chief Complaint Date of Admission Aug 29, 2017 at 01:00 Date of Discharge Discharge Date: Aug 31, 2017 Discharge Diagnosis Pt improved and ready for catheter DC and to go back to [place] Left sided HP precludes any real activity so can't skill her Uses wheelchair at [place] Left leg cellulitis is much improved Very difficult to motivate AF presently, pleasant, flat affect improved RRR, CTAB minimal breath sounds in bases due to lack of excursion Left leg much improved erythema and edema Laboratory Tests 08/31/17 05:05 08/31/17 05:41 Assessment: Acute left lower leg cellulitis w/fever and sepsis now much improved and DC back to CT Remote CVA w/left sided HP HTN Acute on chronic RI Anemia likely of renal disease Acute UTI placed on Keflex at DC Hyponatremia improved DC Discharge Summary Discharge Physical Examination Allergies: Coded Allergies: sulfamethoxazole (Verified Allergy, Unknown, 04/09/16) trimethoprim (Verified Allergy, Unknown, 04/09/16) Vitals & I&Os Vital Signs Date Time Temp Pulse Resp B/P (MAP) Pulse Ox O2 Delivery O2 Flow Rate FiO2 08/31/17 08:00 100.2 102 22 132/63 (86) 90 Room Air 08/30/17 20:30 2.00 Hospital Course Hospital course: Patient had an uneventful hospital course due to the fact of her chronic debility from left-sided paralysis due to remote stroke it was difficult to improve upon any of her chronic morbidities but the left leg cellulitis was much improved at time of discharge UTI was fully treated per sensitivity profile and IV iron was given for severe low iron level and placed on Ferrex at discharge. Very difficult to motivate this patient and long-term prognosis remains guarded and poor considering the paralysis on the left side and now recurrent infections placing her at risk for continued decline. Labs (last 24 hrs) Laboratory Tests 08/30/17 10:55: Glucometer 202H 08/30/17 12:07: Iron Level <10L 08/30/17 15:40: Glucometer 173H 08/30/17 20:43: Glucometer 316H 08/31/17 02:10: Vancomycin Level Trough 10.7 08/31/17 05:05: Sodium Level 134L, Potassium Level 4.0, Chloride Level 106, Carbon Dioxide Level 20L, Anion Gap 8, Blood Urea Nitrogen 17, Creatinine 1.25, Estimat Glomerular Filtration Rate 43, BUN/Creatinine Ratio 14, Glucose Level 135H, Calcium Level 8.0L, Total Bilirubin 0.2, Aspartate Amino Transf (AST/SGOT) 26, Alanine Aminotransferase (ALT/SGPT) 20, Alkaline Phosphatase 94, Total Protein 6.0L, Albumin 2.5L 08/31/17 05:41: White Blood Count 13.8H, Red Blood Count 3.38L, Hemoglobin 8.1L, Hematocrit 26L , Mean Corpuscular Volume 75L, Mean Corpuscular Hemoglobin 24L, Mean Corpuscular Hemoglobin Concent 32, Red Cell Distribution Width 14.9H, Platelet Count 208, Mean Platelet Volume 9.9, Neutrophils (%) (Auto) 83H, Lymphocytes (% ) (Auto) 10L, Monocytes (%) (Auto) 6, Eosinophils (%) (Auto) 1, Basophils (%) ( Auto) 0, Neutrophils # (Auto) 11.4H, Lymphocytes # (Auto) 1.3, Monocytes # (Auto ) 0.9, Eosinophils # (Auto) 0.2, Basophils # (Auto) 0.0 Microbiology 08/28/17 Blood Culture - Preliminary, Resulted No growth 08/28/17 Influenza Types A,B Antigen ([place]) - Final, Complete 08/28/17 Urine Culture - Final, Complete Escherichia Coli See Comments Pending Labs Laboratory Tests 08/31/17 02:10: Vancomycin Level Trough 10.7 08/31/17 05:05: Sodium Level 134, Potassium Level 4.0, Chloride Level 106, Carbon Dioxide Level 20, Anion Gap 8, Blood Urea Nitrogen 17, Creatinine 1.25, Estimat Glomerular Filtration Rate 43, BUN/Creatinine Ratio 14, Glucose Level 135, Calcium Level 8.0, Total Bilirubin 0.2, Aspartate Amino Transf (AST/SGOT) 26, Alanine Aminotransferase (ALT/SGPT) 20, Alkaline Phosphatase 94, Total Protein 6.0, Albumin 2.5 08/31/17 05:41: White Blood Count 13.8, Red Blood Count 3.38, Hemoglobin 8.1, Hematocrit 26, Mean Corpuscular Volume 75, Mean Corpuscular Hemoglobin 24, Mean Corpuscular Hemoglobin Concent 32, Red Cell Distribution Width 14.9, Platelet Count 208, Mean Platelet Volume 9.9, Neutrophils (%) (Auto) 83, Lymphocytes (%) (Auto) 10, Monocytes (%) (Auto) 6, Eosinophils (%) (Auto) 1, Basophils (%) (Auto) 0, Neutrophils # (Auto) 11.4, Lymphocytes # (Auto) 1.3, Monocytes # (Auto) 0.9, Eosinophils # (Auto) 0.2, Basophils # (Auto) 0.0 Discharge Home Medications: Active Scripts Active Ferrex 150 (Iron Polysaccharide Complex) 150 Mg Capsule 150 Mg PO DAILY Keflex (Cephalexin) 500 Mg Capsule 500 Mg PO QID Reported Bethanechol Chloride 10 Mg Tablet 10 Mg PO BID Pantoprazole Sodium 20 Mg Tablet.dr 20 Mg PO DAILY Clopidogrel (Clopidogrel Bisulfate) 75 Mg Tablet 75 Mg PO DAILY Novolog Flexpen (Insulin Aspart) 300 Units/3 Ml Solution SQ SLIDING/SCALE 60-150 0 UNITS 151-200 4 UNITS 201-250 6 UNITS 251-300 8 UNITS 301-350 10 UNITS 351-400 12 UNITS ABOVE 400 CALL PHYSICIAN Atorvastatin Calcium 20 Mg Tablet 20 Mg PO HS Glucosamine & Chondroitin Cap (Glucosa Angulo 2Kcl/Chondroitin Angulo) 1 Each Capsule 2 Cap PO DAILY Desitin Diaper Rash 40% Paste (Cod Liver Oil/Zinc Oxide) 28 Gm Paste..g. TP EVERY SHIFT Desitin Diaper Rash 40% Paste (Cod Liver Oil/Zinc Oxide) 28 Gm Paste..g. TP EVERY HOUR PRN Citalopram HBr (Citalopram Hydrobromide) 10 Mg Tablet 10 Mg PO DAILY [Blood Sugar 360] 1 Cap PO PRN PRN Valerian Root 500 Mg Capsule 500 Mg PO DAILY PRN Hemorrhoidal Ointment (Phenylephrine/Shk Lv/Mo/Pet,Wh) 57 Gm Oint...g. 1 Applic RC Q12H PRN Melatonin 3 mg Tablet (Melatonin/Pyridoxine HCl (B6)) 1 Each Tablet 3 Mg PO HS Cranberry Tablet (Cranberry Conc/C/Bacill Coag) 1 Each Tablet 1 Tab PO DAILY Milk of Magnesia (Magnesium Hydroxide) 400 Mg/5 Ml Oral.susp 30 Ml PO DAILY PRN Bisacodyl 10 Mg Supp.rect 10 Mg RC DAILY PRN Acetaminophen 500 Mg Tablet 1,000 Mg PO Q6H PRN MAY ALSO BE GIVEN FOR HEADACHE / ELEVATED TEMPERATURE Vaseline White Petroleum (Petrolatum,White) 5 Gm Oint.pack TP BID Apply to buttocks topically every shift for skin condition [place] (Sodium Chloride) 104 Ml [place] 2 Sprays NSEACH Q4H PRN Hydroxyzine HCl 25 Mg Tablet 25 Mg PO Q8H PRN Hydrocortisone (Hydrocortisone Acetate) 28 Gm Oint...g. 1 Gm TP DAILY PRN Apply to rash to buttocks topically one time a day for rash/itching Hydrocortisone (Hydrocortisone Acetate) 28 Gm Oint...g. 1 Gm TP Q8H PRN Apply to buttocks topically every 8 Hours prn for gaulding/redness [digize oil] 1 Drop TOP UD Apply topically to skin as needed for supplement related functional disorders of the stomach as needed for upset stomach, there is no dosage for this oil, may be used topically or dabbed inside the mouth on check, may keep at the bedside and self administer for digestive difficulties [comforTone] 3 Tab PO HS Cinnamon (Cinnamon Bark) 500 Mg Capsule 1,000 Mg PO DAILY TAKES 2 (500 MG) CAPSULES Aspirin 81 Mg Tab.chew 81 Mg PO HS GIVE 30 MINUTES PRIOR TO ADMINISTRATION OF ENDUR-ACIN (NIASPAN) ER 500MG Victoza 2-Checo (Liraglutide) 0.6 Mg/0.1 Ml Pen.injctr 1.8 Mg SQ DAILY Symbicort 160-4.5 Mcg Inhaler (Budesonide/Formoterol Fumarate) 10.2 Gm Hfa.aer.ad 2 Puff IH BID Super B Complex (Vitamin B Complex & Vit C No.4) 150 Mg Tablet 150 Mg PO DAILY Onglyza (Saxagliptin HCl) 2.5 Mg Tablet 2.5 Mg PO DAILY Levemir Flextouch (Insulin Detemir) 100 Unit/1 Ml Insuln.pen 40 Unit SQ BID Essential Balance Tablet (Multivits W-Fe,Other Min/Lut) 1 Each Tablet 1 Tab PO TID Endur-Acin (Niacin) 500 Mg Tablet.er 500 Mg PO HS Fish Oil 1,200 mg Softgel ([place]-3 Fatty Acids/Fish Oil) 1 Each Capsule 1,200 Mg PO DAILY Metoprolol Succinate 100 Mg Tab.er.24h 100 Mg PO DAILY Vitamin D (Cholecalciferol) 5,000 Unit Capsule 5,000 Unit PO HS Amlodipine Besylate 5 Mg Tablet 5 Mg PO DAILY Instructions to patient/family Please see electronic discharge instructions given to patient. Clinical Quality Measures DVT/VTE Risk/Contraindication: Risk Factor Score Per Nursin RFS Level Per Nursing on Admit: 4+=Very High ALEJANDRA RUSH DO Aug 31, 2017 09:38
[2017-08-31 12:00] VITALS: BP 132/63
== END 2017-08-31 12:00 | DRG 872 ==
LOC: EDUNIT# 21:30 → ER 21:32 → 4TH 08-29 01:00
PROVIDERS: ADMIT Family Medicine; ATTEND Internal Medicine
DX: A41.9 Sepsis, unspecified organism (principal); L03.116 Cellulitis of left lower limb; N39.0 Urinary tract infection, site not specified; I69.354 Hemiplegia and hemiparesis following cerebral infarction affecting left non-dominant side; E87.1 Hypo-osmolality and hyponatremia; E86.0 Dehydration; R09.02 Hypoxemia; R60.0 Localized edema; D63.1 Anemia in chronic kidney disease; N18.9 Chronic kidney disease, unspecified; E11.9 Type 2 diabetes mellitus without complications; I25.10 Atherosclerotic heart disease of native coronary artery without angina pectoris; E78.00 Pure hypercholesterolemia, unspecified; J44.9 Chronic obstructive pulmonary disease, unspecified; F41.9 Anxiety disorder, unspecified; Z88.2 Allergy status to sulfonamides; Z79.4 Long term (current) use of insulin; Z87.891 Personal history of nicotine dependence; Z96.651 Presence of right artificial knee joint
CPT/HCPCS: 36415; 51702; 71010; 71020; 80053; 80202; 81000; 82150; 82962; 83540; 83605; 83690; 83735; 83880; 84484; 85007; 85025; 85027; 85610; 85730; 87040; 87088; 87186; 87804; 94640; 94760; 96361; 96365; 96375

== ENCOUNTER → 2017-09-03 | Outpatient (CLI) | payer MEDICARE, MEDICAID ==
[~2017-09-03] VITALS: Ht 165.1 cm; Wt 121.9 kg
[~2017-09-03] MED LIST changes: +ACET-93 PO; +ATOR20TA66 PO; +BETH10TA PO; +BISA10SU6 RC; +BLOOD SUGAR PO; +CEPH-507 PO; +CITA10TA7 PO; +CLOP75TA28 PO; +COD28PAS TP; +CRAN1TAB5 PO; +GLUC1CAP37 PO; +INSU100I14 SQ; +IRON150C3 PO; +MAGN400O7 PO; +MELA1TAB27 PO; +PANT20TA3 PO; +PHEN57OI3 RC; +VALE500C PO
[2017-09-03 14:32] VITALS: BP 148/82
== END ==
LOC: SDC 13:34
PROVIDERS: ATTEND Internal Medicine
DX: Z45.2 Encounter for adjustment and management of vascular access device (principal)
CPT/HCPCS: 76937

== ENCOUNTER → 2017-09-10 | Outpatient (CLI) | payer MEDICARE, MEDICAID ==
[~2017-09-10] MED LIST changes: +ACHD5005 PO; -HYDR-3812 PO
== END ==
LOC: SDC 09:12
PROVIDERS: ATTEND Nurse Practitioner Community Health
DX: L03.116 Cellulitis of left lower limb (principal)

== ENCOUNTER 2017-10-12 23:28 | Inpatient (IN) | payer MEDICARE, MEDICAID ==
[~2017-10-12] VITALS: Ht 165.1 cm; Wt 113.5 kg
[~2017-10-12 23:28] MED LIST changes: +SODI104S3 NS; -SODI104S3 NSEACH
--- OUTSIDE RECORDS SUMMARY | 2017-10-12 23:38 | XMS REPORT | Continuity of Care Document ---
Author Author [facility] Organization [facility] Address Unknown Phone Unavailable Allergies Active Description Code Type Severity Reaction Onset Reported/Identified Relationship to Patient Clinical Status Yes NKANo Known Allergies NKA Miscellaneous Allergy Unknown N/A 06/16/2008 Yes sulfamethoxazole [id number] Drug Allergy Unknown N/A 04/09/2016 Yes trimethoprim [id number] Drug Allergy Unknown N/A 04/09/2016 Medications There is no data. Problems Date Dx Coded Attending Type Code Diagnosis Diagnosed By 01/11/2011 Ot 078.3 CAT-SCRATCH DISEASE 01/11/2011 Ot 891.0 OPEN WND KNEE /LEG/ANKLE 01/11/2011 Ot E000.8 OTHER EXTERNAL CAUSE STATUS 01/11/2011 Ot E849.0 ACCIDENT IN HOME 01/11/2011 Ot E906.3 ANIMAL BITE NEC 01/11/2011 Ot V06.1 DIPHTHERIA- TETANUS-PERTUSSIS, COMBINED [ 11/03/2011 Ot 041.11 METHICILLIN SUSCEPTIBLE [...] TIA, CEREBRAL INFARCTION 11/03/2011 Ot V58.69 OTH MED,LT, CURRENT USE 12/14/2011 Ot 250.00 DIAB LATRELL WO COMPL, TYPE II OR UNSPEC TY 12/14/2011 Ot 272.1 PURE HYPERGLYCERIDEMIA 12/14/2011 Ot 272.4 HYPERLIPIDEMIA NEC/NOS 12/14/2011 Ot 276.1 HYPOSMOLALITY 12/14/2011 Ot 278.00 OBESITY, NOS 12/14/2011 Ot 300.4 DYSTHYMIC DISORDER 12/14/2011 Ot 401.9 HYPERTENSION NOS 12/14/2011 Ot 433.10 CAROTID ARTERY OCCLUSION W O CEREBRAL IN 12/14/2011 Ot 438.20 LATE EFF- CEREBR DIS,HEMIPLEGIA AFFECTING 12/14/2011 Ot 438.82 OTH LATE EFF -CEREB DIS, DYSPHAGIA 12/14/2011 Ot 518.0 PULMONARY COLLAPSE [...] INVOLVING SPEECH-LANGUAGE THERAPY 12/14/2011 Ot V58.67 LONG-TERM ( 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 12/14/2011 Ot V85.39 BODY MASS INDEX 39.0-39.9, ADULT 02/04/2012 Ot 250.00 DIAB LATRELL WO COMPL, TYPE II OR UNSPEC TY 02/04/2012 Ot 272.4 HYPERLIPIDEMIA NEC/NOS 02/04/2012 Ot 278.01 MORBID OBESITY 02/04/2012 Ot 401.9 HYPERTENSION NOS 02/04/2012 Ot 794.30 ABN CARDIOVASC STUDY NOS 02/04/2012 Ot V12.54 PERSONAL HX OF TIA, CEREBRAL INFARCTION 02/04/2012 Ot V58.63 LONG-TERM( CURRENT)USE OF ANTIPLATELET/AN 02/04/2012 Ot V58.66 LONG-TERM ( 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 ASPIRIN 02/04/2012 Ot V58.67 LONG-TERM ( 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 02/04/2012 Ot V58.69 OTH MED,LT, CURRENT USE 02/04/2012 Ot V85.38 BODY MASS INDEX 38.0-38.9, ADULT 10/02/2014 MARIAN BRANDT MD Ot 599.0 10/03/2014 SWATHI RAMIREZ Ot 397.0 10/03/2014 SWATHI RAMIREZ Ot 401.9 10/03/2014 SERJIO RAMIREZDITH K Ot 424.0 10/03/2014 KYLE PA, SWATHI K Ot 429.9 10/03/2014 KYLE PA, SWATHI K Ot V12.54 12/24/2014 Ot 401.9 12/24/2014 Ot 434.91 12/24/2014 Ot 786.09 12/24/2014 KYLE PA, SWATHI K Ot 397.0 12/24/2014 KYLE PA, SWATHI K Ot 401.9 12/24/2014 KYLE PA, SWATHI K Ot 424.0 12/24/2014 KYLE PA, SWATHI K Ot 429.9 12/24/2014 KYLE PA, SWATHI K Ot V12.54 12/24/2014 KARLY CHOWDHURY, MARIAN Victor Ot 599.0 12/24/2014 Ot 401.9 12/24/2014 Ot 434.91 12/24/2014 Ot 786.09 12/24/2014 KYLE PA, SWATHI K Ot 397.0 12/24/2014 KYLE PA, SWATHI K Ot 401.9 12/24/2014 KYLE PA, SWATHI K Ot 424.0 12/24/2014 KYLE PA, SWATHI K Ot 429.9 12/24/2014 KYLE PA, SWATHI K Ot V12.54 12/24/2014 KARLY CHOWDHURY, MARIAN Victor Ot 599.0 12/24/2014 KARLY CHOWDHURY, MARIAN Victor Ot 599.0 12/24/2014 KARLY CHOWDHURY, MARIAN Victor Ot 599.0 01/11/2015 KARLY CHOWDHURY, MARIAN Victor Ot 599.0 03/13/2016 Ot 401.9 HYPERTENSION NOS 03/13/2016 Ot 434.91 CEREBRAL ART OCCLUSION NOS W CEREBRAL IN 03/13/2016 Ot 786.09 RESPIRATORY ABNORM NEC 03/13/2016 KYLE PA, SWATHI K Ot 397.0 TRICUSPID VALVE DISEASE 03/13/2016 KYLE PA, SWATHI K Ot 401.9 HYPERTENSION NOS 03/13/2016 KYLE PA, SWATHI K Ot 424.0 MITRAL VALVE DISORDER 03/13/2016 KYLE PA, SWATHI K Ot 429.9 HEART DISEASE NOS 03/13/2016 SWATHI RAMIREZ Ot V12.54 PERSONAL HX OF TIA, CEREBRAL INFARCTION 03/13/2016 MARIAN BRANDT MD Ot 599.0 URIN TRACT INFECTION NOS 03/13/2016 LEONIDAS, MARKO J ELECTROMEDICAL SERVICE ENGINEER Ot R22.0 LOCALIZED SWELLING, MASS AND LUMP, [...] TRACT INFECTION NOS 03/13/2016 LEONIDAS, MARKO J ELECTROMEDICAL SERVICE ENGINEER Ot R22.0 LOCALIZED SWELLING, MASS AND LUMP, HEAD 03/18/2016 LEONIDAS, MARKO J ELECTROMEDICAL SERVICE ENGINEER Ot R22.0 LOCALIZED SWELLING, MASS AND LUMP, HEAD 04/06/2016 LEONIDAS, MARKO J ELECTROMEDICAL SERVICE ENGINEER Ot R22.0 LOCALIZED SWELLING, MASS AND LUMP, [...] SCREENING FOR OTHER BACTER 04/10/2016 MARKO LAUREN Willi ELECTROMEDICAL SERVICE ENGINEER Ot R22.0 LOCALIZED SWELLING, MASS AND LUMP, HEAD 04/16/2016 ESTEPHANIE STANFORD MD Ot E11.9 TYPE 2 DIABETES MELLITUS WITHOUT COMPLIC 04/16/2016 ESTEPHANIE STANFORD MD, Ot J32.0 CHRONIC MAXILLARY SINUSITIS 04/16/2016 ESTEPHANIE STANFORD MD, Ot J32.1 CHRONIC FRONTAL SINUSITIS 04/16/2016 ESTEPHANIE STANFORD MD Ot J32.2 CHRONIC ETHMOIDAL SINUSITIS 04/16/2016 ESTEPHANIE STANFORD MD, Ot Z79.4 [facility] (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 03/29/2017 BOBBI CABRERA [...] I10 ESSENTIAL (PRIMARY) HYPERTENSION 03/29/2017 BOBBI CABRERA MD Ot I25.10 ATHSCL HEART DISEASE OF [place] CORONARY 03/29/2017 BOBBI CABRERA MD Ot I69.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 03/29/2017 BOBBI CABRERA MD Ot J44.9 CHRONIC OBSTRUCTIVE PULMONARY DISEASE, U 03/29/2017 BOBBI CABRERA MD Ot J98.11 [...] ADULT 03/29/2017 BOBBI CABRERA MD Ot 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 03/29/2017 BOBBI CABRERA MD, Ot Z87.11 PERSONAL HISTORY OF PEPTIC ULCER DISEASE 03/29/2017 BOBBI CABRERA MD, Ot Z87.19 PERSONAL HISTORY OF OTHER DISEASES OF TH 03/29/2017 BOBBI CABRERA MD, Ot Z87.891 PERSONAL HISTORY OF NICOTINE DEPENDENCE 03/29/2017 BOBBI CABRERA MD Ot Z96.651 PRESENCE OF [...] MD Ot I25.10 ATHSCL HEART DISEASE OF [place] CORONARY 03/30/2017 BOBBI CABRERA MD Ot I69.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 03/30/2017 BOBBI CABRERA MD Ot J44.9 CHRONIC OBSTRUCTIVE PULMONARY DISEASE, U 03/30/2017 BOBBI CABRERA MD, Ot J98.11 ATELECTASIS 03/30/2017 BOBBI CABRERA MD [...] ADULT 03/30/2017 BOBBI CABRERA MD Ot 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 03/30/2017 BOBBI CABRERA [...] MD Ot I25.10 ATHSCL HEART DISEASE OF [place] CORONARY 03/30/2017 BOBBI CABRERA MD Ot I69.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 03/30/2017 BOBBI CABRERA MD Ot J44.9 CHRONIC OBSTRUCTIVE PULMONARY DISEASE, U 03/30/2017 BOBBI CABRERA MD Ot J98.11 ATELECTASIS 03/30/2017 BOBBI CABRERA MD Ot N28.9 DISORDER OF KIDNEY AND URETER, UNSPECIFI 03/30/2017 BOBBI CABRERA MD Ot R07.89 OTHER CHEST PAIN 03/30/2017 BOBBI CABREAR MD, Ot R09.2 RESPIRATORY ARREST 03/30/2017 BOBBI CABRERA MD, Ot R47.1 DYSARTHRIA AND ANARTHRIA 03/30/2017 BOBBI CABRERA MD, Ot R79.89 OTHER SPECIFIED ABNORMAL FINDINGS OF BLO 03/30/2017 BOBBI CABRERA MD, Ot T17.920A FOOD IN RESP TRACT, PART UNSP CAUSING 03/30/2017 BOBBI CABRERA MD Ot Y92.[address] IN SKILLED NURSING PLACE 03/30/2017 BOBBI CABRERA MD Ot Z66 DO NOT RESUSCITATE 03/30/2017 BOBBI CABRERA MD, Ot Z68.42 BODY MASS INDEX (BMI) 45.0-49.9, ADULT 03/30/2017 BOBBI CABRERA MD, Ot Z79.4 [facility] (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 03/30/2017 BOBBI CABRERA MD, Ot Z87.11 PERSONAL HISTORY OF PEPTIC ULCER DISEASE 03/30/2017 BOBBI CABRERA MD Ot Z87.19 PERSONAL HISTORY OF OTHER DISEASES OF TH 03/30/2017 BOBBI CABRERA MD Ot Z87.891 PERSONAL HISTORY OF NICOTINE DEPENDENCE 03/30/2017 BOBBI CABRERA MD Ot Z96.651 PRESENCE OF RIGHT ARTIFICIAL KNEE JOINT 08/31/2017 HERMINIA YAO MD Ot A41.9 SEPSIS, UNSPECIFIED ORGANISM 08/31/2017 HERMINIA YAO MD, Ot D63.1 ANEMIA IN CHRONIC KIDNEY DISEASE 08/31/2017 HERMINIA YAO MD Ot E11.9 TYPE 2 DIABETES MELLITUS WITHOUT COMPLIC 08/31/2017 HERMINIA YAO MD Ot E78.00 PURE HYPERCHOLESTEROLEMIA, UNSPECIFIED 08/31/2017 HERMINIA YAO MD Ot E86.0 DEHYDRATION 08/31/2017 HERMINIA YAO MD, Ot E87.1 HYPO-OSMOLALITY AND HYPONATREMIA 08/31/2017 HERMINIA YAO MD, Ot F41.9 ANXIETY DISORDER, UNSPECIFIED 08/31/2017 HERMINIA YAO MD, Ot I25.10 ATHSCL HEART DISEASE OF [place] CORONARY 08/31/2017 HERMINIA YAO MD, Ot I69.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 08/31/2017 HERMINIA YAO MD, Ot J18.9 PNEUMONIA, UNSPECIFIED ORGANISM 08/31/2017 HERMINIA YAO MD, Ot J40 BRONCHITIS, NOT SPECIFIED ACUTE OR CH 08/31/2017 HERMINIA YAO MD, Ot J44.9 CHRONIC OBSTRUCTIVE PULMONARY DISEASE, U 08/31/2017 HERMINIA YAO MD, Ot L03.116 CELLULITIS OF LEFT LOWER LIMB 08/31/2017 HERMINIA YAO MD, Ot N18.9 CHRONIC KIDNEY DISEASE, UNSPECIFIED 08/31/2017 HERMINIA YAO MD, Ot N39.0 URINARY TRACT INFECTION, SITE NOT SPECIF 08/31/2017 HERMINIA YAO MD Ot R09.02 HYPOXEMIA 08/31/2017 HERMINIA YAO MD, Ot R60.0 LOCALIZED EDEMA 08/31/2017 HERMINIA YAO MD Ot Z79.4 [facility] (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 08/31/2017 HERMINIA YAO MD, Ot Z87.891 PERSONAL HISTORY OF NICOTINE DEPENDENCE 08/31/2017 HERMINIA YAO MD, Ot Z88.2 ALLERGY STATUS TO SULFONAMIDES STATUS 08/31/2017 HERMINIA YAO MD, Ot Z96.651 PRESENCE OF RIGHT ARTIFICIAL KNEE JOINT 09/10/2017 SWATHI RAMIREZ Ot 397.0 TRICUSPID VALVE DISEASE 09/10/2017 SWATHI RAMIREZ Ot 401.9 HYPERTENSION NOS 09/10/2017 SWATHI RAMIREZ Ot 424.0 MITRAL VALVE DISORDER 09/10/2017 SWATHI RAMIREZ Ot 429.9 HEART DISEASE NOS 09/10/2017 SWATHI RAMIREZ Ot V12.54 PERSONAL HX OF TIA, CEREBRAL INFARCTION 09/10/2017 MARIAN BRANDT MD Ot 599.0 URIN TRACT INFECTION NOS 09/10/2017 MARKO LAUREN Ot R22.0 LOCALIZED SWELLING, MASS AND LUMP, HEAD 09/10/2017 HERMINIA YAO MD, Ot Z45.2 ENCOUNTER FOR ADJUSTMENT AND MANAGEMENT 09/10/2017 HERMINIA YAO MD Ot Z45.2 ENCOUNTER FOR ADJUSTMENT AND MANAGEMENT 09/20/2017 HERMINIA YAO MD Ot Z45.2 ENCOUNTER FOR ADJUSTMENT AND MANAGEMENT 09/20/2017 HERMINIA YAO MD Ot Z45.2 ENCOUNTER FOR ADJUSTMENT AND MANAGEMENT 09/28/2017 HERMINIA YAO MD Ot Z45.2 ENCOUNTER FOR ADJUSTMENT AND MANAGEMENT 09/30/2017 HERMINIA YAO MD Ot Z45.2 ENCOUNTER FOR ADJUSTMENT AND MANAGEMENT Procedures There is no data. Results Test Result Range Methicillin resistant Staphylococcus [...] Bacteria identification in isolate by anaerobe culture [id number] NRG Gram stain microscopy - 04/16/16 09:40 GRAM STAIN RESULT FEW WBC'S, NO BACTERIA OBSERVED NRG Bacteria identification in wound by culture - 04/16/16 09:40 Bacteria identification in wound by culture [id number] NRG FREE TEXT EXTERNAL SENSITIVITY REPORTED 04/18/16 11:20 NRG QUANTITY OF GROWTH Scant Growth NRG Bacterial susceptibility panel - 04/16/16 09:40 Gentamicin susceptibility test by minimum inhibitory concentration < = NRG Tobramycin susceptibility test by minimum inhibitory concentration < = NRG Piperacillin/tazobactam susceptibility test by minimum inhibitory concentration 16 NRG Ciprofloxacin susceptibility test by minimum inhibitory concentration <= NRG Meropenem susceptibility test by minimum inhibitory concentration 1 NRG Cefepime susceptibility test by minimum inhibitory concentration <= NRG Bacterial susceptibility panel - 04/16/16 09:40 Oxacillin susceptibility test by minimum inhibitory concentration < = NRG Gentamicin susceptibility test by minimum inhibitory concentration < = NRG Clindamycin susceptibility test by minimum inhibitory concentration R NRG Erythromycin susceptibility test by minimum inhibitory concentration R NRG Trimethoprim/sulfamethoxazole susceptibility test by minimum inhibitoryconcentration <= NRG Vancomycin susceptibility test by minimum inhibitory concentration < = NRG Levofloxacin susceptibility test by minimum inhibitory [...] 18:04 Blood leukocytes automated count (number/volume) 19.0 10*3/uL 4.3-11.0 Blood erythrocytes automated count (number/volume) 4.90 10*6/uL 4.35-5.85 Venous blood hemoglobin measurement (mass/volume) 11.4 [...] Automated blood platelet mean volume measurement 9.5 [foz_us] 7.4-10.4 Automated blood neutrophils/100 leukocytes 54 % [...] Serum or plasma sodium measurement (moles/volume) 132 mmol/L 135-145 Serum or plasma potassium measurement (moles/volume) 4.5 mmol/L 3.6-5.0 Serum or plasma chloride measurement (moles/volume) 99 mmol/L 98-107 Carbon dioxide 16 mmol/L 21-32 Serum or plasma anion gap determination (moles/volume) 17 mmol/L 5-14 Serum or plasma urea nitrogen measurement (mass/volume) 18 mg/dL 7-18 Serum or plasma creatinine measurement (mass/volume) 1.58 mg/dL 0.60-1.30 Serum or plasma urea nitrogen/creatinine mass [...] or plasma troponin i.cardiac measurement (mass/volume) < ng/ mL <0.30 Capillary blood glucose measurement by glucometer (mass/volume) - 03/27/17 18: 08 Capillary blood glucose measurement by glucometer (mass/volume) 326 mg/dL 70-110 Arterial blood gas measurement - 03/27/17 18:20 Blood pCO2 53 mm[Hg] 35-45 Blood pO2 195 mm[Hg] 79-93 Arterial blood bicarbonate measurement (moles/volume) 20 mmol/L 23-27 Arterial blood base excess by calculation -7.0 mmol/L - 2.5-2.5 Arterial blood oxygen saturation measurement 99 % 94-100 * Inhaled oxygen flow rate 100% NRG Arterial blood pH measurement with patient temperature correction 7.20 7.37-7.43 Arterial blood carbon dioxide, total measurement (moles/volume) 21.5 mmol/L 21.0-31.0 Body site right radial NRG Assessment of wrist artery patency prior to arterial puncture YES- POS NRG Setting of ventilation mode NO NRG Measurement of body temperature 98 NRG Arterial blood gas measurement - 03/27/17 19:47 Blood pCO2 44 mm[Hg] 35-45 Blood pO2 121 mm[Hg] 79-93 Arterial blood bicarbonate measurement (moles/volume) 22 mmol/L 23-27 Arterial blood base excess by calculation -2.9 mmol/L - 2.5-2.5 Arterial blood oxygen saturation measurement 99 % 94-100 * Inhaled oxygen flow rate 60% NRG Arterial blood pH measurement with patient temperature correction 7.33 7.37-7.43 Arterial blood carbon dioxide, total measurement (moles/volume) 23.6 mmol/L 21.0-31.0 Body site RT RAD NRG Assessment of wrist artery patency prior to arterial puncture YES- POS NRG Setting of ventilation mode NO NRG Measurement of body temperature 98.0 NRG Complete urinalysis with reflex to culture - 03/27/17 20:00 Urine color determination YELLOW NRG Urine clarity determination SLIGHTLY CLOUDY NRG Urine pH measurement by test strip 5 5-9 Specific gravity of urine by test strip 1.020 1.016- 1.022 Urine protein assay by test strip, semi-quantitative [...] 03:38 Blood leukocytes automated count (number/volume) 12.4 10*3/uL 4.3-11.0 Blood erythrocytes automated count (number/volume) 3.96 10*6/uL 4.35-5.85 Venous blood hemoglobin measurement (mass/volume) 9.2 [...] Automated blood platelet mean volume measurement 9.9 [foz_us] 7.4-10.4 Automated blood neutrophils/100 leukocytes 82 % [...] Serum or plasma sodium measurement (moles/volume) 135 mmol/L 135-145 Serum or plasma potassium measurement (moles/volume) 4.3 mmol/L 3.6-5.0 Serum or plasma chloride measurement (moles/volume) 105 mmol/L 98-107 Carbon dioxide 20 mmol/L 21-32 Serum or plasma anion gap determination (moles/volume) 10 mmol/L 5-14 Serum or plasma urea nitrogen measurement (mass/volume) 21 mg/dL 7-18 Serum or plasma creatinine measurement (mass/volume) 1.46 mg/dL 0.60-1.30 Serum or plasma urea nitrogen/creatinine mass [...] Serum or plasma phosphate measurement (mass/volume) 3.3 mg/dL 2.3-4.7 Magnesium - 03/28/17 03:38 Magnesium 1.6 [...] 03:34 Blood leukocytes automated count (number/volume) 7.6 10*3/uL 4.3-11.0 Blood erythrocytes automated count (number/volume) 3.67 10*6/uL 4.35-5.85 Venous blood hemoglobin measurement (mass/volume) 8.5 [...] Automated blood platelet mean volume measurement 9.9 [foz_us] 7.4-10.4 Automated blood neutrophils/100 leukocytes 61 % [...] Serum or plasma sodium measurement (moles/volume) 137 mmol/L 135-145 Serum or plasma potassium measurement (moles/volume) 4.0 mmol/L 3.6-5.0 Serum or plasma chloride measurement (moles/volume) 108 mmol/L 98-107 Carbon dioxide 19 mmol/L 21-32 Serum or plasma anion gap determination (moles/volume) 10 mmol/L 5-14 Serum or plasma urea nitrogen measurement (mass/volume) 18 mg/dL 7-18 Serum or plasma creatinine measurement (mass/volume) 1.47 mg/dL 0.60-1.30 Serum or plasma urea nitrogen/creatinine mass ratio 12 NRG Serum or plasma creatinine measurement with calculation of estimated glomerular filtration rate 35 NRG Serum or plasma glucose measurement (mass/volume) 174 mg/dL 70-105 Serum or plasma calcium measurement (mass/volume) 8.2 mg/dL 8.5-10.1 Serum or plasma phosphate measurement (mass/volume) - 03/29/17 03:34 Serum or plasma phosphate measurement (mass/volume) 3.6 mg/dL 2.3-4.7 Magnesium - 03/29/17 03:34 Magnesium 2.1 [...] 04:33 Blood leukocytes automated count (number/volume) 10.1 10*3/uL 4.3-11.0 Blood erythrocytes automated count (number/volume) 3.87 10*6/uL 4.35-5.85 Venous blood hemoglobin measurement (mass/volume) 8.9 [...] Automated blood platelet mean volume measurement 9.8 [foz_us] 7.4-10.4 Automated blood neutrophils/100 leukocytes 73 % [...] Serum or plasma sodium measurement (moles/volume) 136 mmol/L 135-145 Serum or plasma potassium measurement (moles/volume) 4.6 mmol/L 3.6-5.0 Serum or plasma chloride measurement (moles/volume) 107 mmol/L 98-107 Carbon dioxide 21 mmol/L 21-32 Serum or plasma anion gap determination (moles/volume) 8 mmol/L 5-14 Serum or plasma urea nitrogen measurement (mass/volume) 17 mg/dL 7-18 Serum or plasma creatinine measurement (mass/volume) 1.36 mg/dL 0.60-1.30 Serum or plasma urea nitrogen/creatinine mass ratio 13 NRG Serum or plasma creatinine measurement with calculation of estimated glomerular filtration rate 39 NRG Serum or plasma glucose measurement (mass/volume) 184 mg/dL 70-105 Serum or plasma calcium measurement (mass/volume) 8.8 mg/dL 8.5-10.1 Capillary blood glucose measurement by glucometer (mass/volume) - 03/30/17 11: 26 Capillary blood glucose measurement by glucometer (mass/volume) 245 mg/dL 70-110 Complete urinalysis with reflex to culture - 08/28/17 00:34 Urine color determination YELLOW NRG Urine clarity determination SLIGHTLY CLOUDY NRG Urine pH measurement by test strip 6 5-9 Specific gravity of urine by test strip 1.015 1.016- 1.022 Urine protein assay by test strip, semi-quantitative 4+ NEGATIVE Urine glucose detection by automated test strip 2+ NEGATIVE Erythrocytes detection in urine sediment by light microscopy 2+ NEGATIVE Urine ketones detection by automated test strip NEGATIVE NEGATIVE Urine nitrite detection by test strip NEGATIVE NEGATIVE Urine total bilirubin detection by test strip NEGATIVE NEGATIVE Urine urobilinogen measurement by automated test strip (mass/volume) NORMAL NORMAL Urine leukocyte esterase detection by dipstick 2+ NEGATIVE Automated urine sediment erythrocyte count by microscopy (number/high power field) [HPF] NRG Automated urine sediment leukocyte count by microscopy (number/high power field ) [HPF] NRG Bacteria detection in urine sediment by light microscopy LARGE NRG Squamous epithelial cells detection in urine sediment by light microscopy 0-2 NRG Crystals detection in urine sediment by light microscopy NONE NRG Casts detection in urine sediment by light microscopy NONE NRG Mucus detection in urine sediment by light microscopy NEGATIVE NRG Complete urinalysis with reflex to culture YES NRG Bacterial urine culture - 08/28/17 00:34 Bacterial urine culture SEE COMMEN NRG COLONY COUNT . NRG FTX;REPORTABLE SENSITIVITY REPORTED 08/30 06:45 NRG Bacterial susceptibility panel - 08/28/17 00:34 Gentamicin susceptibility test by minimum inhibitory concentration < = NRG Trimethoprim/sulfamethoxazole susceptibility test by minimum inhibitoryconcentration S NRG Ampicillin susceptibility test by minimum inhibitory concentration > = NRG Tobramycin susceptibility test by minimum inhibitory concentration < = NRG Cefazolin susceptibility test by minimum inhibitory concentration < = NRG Ceftriaxone susceptibility test by minimum inhibitory concentration <= NRG Ampicillin/sulbactam susceptibility test by minimum inhibitory concentration I NRG Piperacillin/tazobactam susceptibility test by minimum inhibitory concentration S NRG Ciprofloxacin susceptibility test by minimum inhibitory concentration >= NRG Meropenem susceptibility test by minimum inhibitory concentration < = NRG Nitrofurantoin susceptibility test by minimum inhibitory concentration <= NRG Aztreonam susceptibility test by minimum inhibitory concentration < = NRG Extended spectrum beta lactamase (ESBL) producing bacteria susceptibility test by minimum inhibitory concentration - NRG Serum or plasma lactate measurement (moles/volume) - 08/28/17 00:59 Serum or plasma lactate measurement (moles/volume) 0.50 -2.00 Influenza virus A and B antigen detection - 08/28/17 22:48 FLU RESULT NEGATIVE FOR INFLUENZA A AND B ANTIGENS BY IA NRG Complete blood count (CBC) with automated white blood cell (WBC) differential - 08/28/17 22:50 Blood leukocytes automated count (number/volume) 18.8 10*3/uL 4.3-11.0 Blood erythrocytes automated count (number/volume) 4.46 10*6/uL 4.35-5.85 Venous blood hemoglobin measurement (mass/volume) 10.6 g/dL 11.5-16.0 Blood hematocrit (volume fraction) 34 % 35-52 Automated erythrocyte mean corpuscular volume 75 [foz_us] 80-99 Automated erythrocyte mean corpuscular hemoglobin (mass per erythrocyte) 24 pg 25-34 Automated erythrocyte mean corpuscular hemoglobin concentration measurement ( mass/volume) 32 g/dL 32-36 Automated erythrocyte distribution width ratio 15.1 % 10.0-14.5 Automated blood platelet count (count/volume) 255 10*3/uL 130-400 Automated blood platelet mean volume measurement 9.5 [foz_us] 7.4-10.4 Automated blood neutrophils/100 leukocytes 90 % 42-75 Automated blood lymphocytes/100 leukocytes 6 % 12-44 Blood monocytes/100 leukocytes 4 % 0-12 Automated blood eosinophils/100 leukocytes 0 % 0-10 Automated blood basophils/100 leukocytes 0 % 0-10 Blood neutrophils automated count (number/volume) 16.9 10*3 1.8-7.8 Blood lymphocytes automated count (number/volume) 1.1 10*3 1.0-4.0 Blood monocytes automated count (number/volume) 0.8 10*3 0.0-1.0 Automated eosinophil count 0.0 10*3/uL 0.0-0.3 Automated blood basophil count (count/volume) 0.0 10*3/uL 0.0-0.1 Blood manual differential performed detection - 08/28/17 22:50 Blood monocytes/100 leukocytes 2 % NRG Manual blood segmented neutrophils/100 leukocytes 79 % NRG Blood band neutrophils/100 leukocytes 11 % NRG Manual blood lymphocytes/100 leukocytes 8 % NRG Manual eosinophils/100 leukocytes in nose 0 % NRG Manual blood basophils/100 leukocytes 0 % NRG Blood erythrocyte morphology finding identification NORMAL NRG PT panel in platelet poor plasma by coagulation assay - 08/28/17 22:50 Prothrombin time (PT) in platelet poor plasma by coagulation assay 15.0 s 12.2-14.7 INR in platelet poor plasma or blood by coagulation assay 1.2 0.8-1.4 Activated partial thromboplastin time (aPTT) in platelet poor plasma bycoagulation assay - 08/28/17 22:50 Activated partial thromboplastin time (aPTT) in platelet poor plasma bycoagulation assay 29 s 24-35 Blood lactic acid measurement (moles/volume) - 08/28/17 22:50 Blood lactic acid measurement (moles/volume) 2.50 mmol/L 0.50-2.00 Comprehensive metabolic panel - 08/28/17 22:50 Serum or plasma sodium measurement (moles/volume) 131 mmol/L 135-145 Serum or plasma potassium measurement (moles/volume) 4.8 mmol/L 3.6-5.0 Serum or plasma chloride measurement (moles/volume) 98 mmol/L 98-107 Carbon dioxide 20 mmol/L 21-32 Serum or plasma anion gap determination (moles/volume) 13 mmol/L 5-14 Serum or plasma urea nitrogen measurement (mass/volume) 17 mg/dL 7-18 Serum or plasma creatinine measurement (mass/volume) 1.59 mg/dL 0.60-1.30 Serum or plasma urea nitrogen/creatinine mass ratio 11 NRG Serum or plasma creatinine measurement with calculation of estimated glomerular filtration rate 32 NRG Serum or plasma glucose measurement (mass/volume) 202 mg/dL 70-105 Serum or plasma calcium measurement (mass/volume) 9.1 mg/dL 8.5-10.1 Serum or plasma total bilirubin measurement (mass/volume) 0.6 mg/dL 0.1-1.0 Serum or plasma alkaline phosphatase measurement (enzymatic activity/volume) 103 U/L 40-136 Serum or plasma aspartate aminotransferase measurement (enzymatic activity/ volume) 46 U/L 5-34 Serum or plasma alanine aminotransferase measurement (enzymatic activity/volume ) 36 U/L 0-55 Serum or plasma protein measurement (mass/volume) 8.4 g/dL 6.4-8.2 Serum or plasma albumin measurement (mass/volume) 3.6 g/dL 3.2-4.5 Magnesium - 08/28/17 22:50 Magnesium 1.8 mg/dL 1.8-2.4 Serum or plasma troponin i.cardiac measurement (mass/volume) - 08/28/17 22:50 Serum or plasma troponin i.cardiac measurement (mass/volume) < ng/ mL <0.30 Serum or plasma amylase measurement (enzymatic activity/volume) - 08/28/17 22: 50 Serum or plasma amylase measurement (enzymatic activity/volume) 34 U /L 25-125 Serum or plasma lithium measurement (moles/volume) - 08/28/17 22:50 BNP level 115.6 pg/mL <100.0 Lipase - 08/28/17 22:50 Lipase 23 U/L 8-78 Bacterial blood culture - 08/28/17 22:50 Bacterial blood culture NG NRG Bacterial blood culture - 08/28/17 22:56 Bacterial blood culture NG NRG Serum or plasma lactate measurement (moles/volume) - 08/29/17 00:59 Serum or plasma lactate measurement (moles/volume) 0.45 mmol/L 0.50-2.00 Capillary blood glucose measurement by glucometer (mass/volume) - 08/29/17 04: 19 Capillary blood glucose measurement by glucometer (mass/volume) 231 mg/dL 70-110 Complete blood count (CBC) with automated white blood cell (WBC) differential - 08/29/17 05:25 Blood leukocytes automated count (number/volume) 16.6 10*3/uL 4.3-11.0 Blood erythrocytes automated count (number/volume) 3.64 10*6/uL 4.35-5.85 Venous blood hemoglobin measurement (mass/volume) 8.7 g/dL 11.5-16.0 Blood hematocrit (volume fraction) 28 % 35-52 Automated erythrocyte mean corpuscular volume 76 [foz_us] 80-99 Automated erythrocyte mean corpuscular hemoglobin (mass per erythrocyte) 24 pg 25-34 Automated erythrocyte mean corpuscular hemoglobin concentration measurement ( mass/volume) 31 g/dL 32-36 Automated erythrocyte distribution width ratio 14.8 % 10.0-14.5 Automated blood platelet count (count/volume) 213 10*3/uL 130-400 Automated blood platelet mean volume measurement 9.4 [foz_us] 7.4-10.4 Automated blood neutrophils/100 leukocytes 89 % 42-75 Automated blood lymphocytes/100 leukocytes 6 % 12-44 Blood monocytes/100 leukocytes 5 % 0-12 Automated blood eosinophils/100 leukocytes 0 % 0-10 Automated blood basophils/100 leukocytes 0 % 0-10 Blood neutrophils automated count (number/volume) 14.8 10*3 1.8-7.8 Blood lymphocytes automated count (number/volume) 1.1 10*3 1.0-4.0 Blood monocytes automated count (number/volume) 0.8 10*3 0.0-1.0 Automated eosinophil count 0.0 10*3/uL 0.0-0.3 Automated blood basophil count (count/volume) 0.0 10*3/uL 0.0-0.1 Comprehensive metabolic panel - 08/29/17 05:25 Serum or plasma sodium measurement (moles/volume) 131 mmol/L 135-145 Serum or plasma potassium measurement (moles/volume) 4.2 mmol/L 3.6-5.0 Serum or plasma chloride measurement (moles/volume) 100 mmol/L 98-107 Carbon dioxide 21 mmol/L 21-32 Serum or plasma anion gap determination (moles/volume) 10 mmol/L 5-14 Serum or plasma urea nitrogen measurement (mass/volume) 20 mg/dL 7-18 Serum or plasma creatinine measurement (mass/volume) 1.95 mg/dL 0.60-1.30 Serum or plasma urea nitrogen/creatinine mass ratio 10 NRG Serum or plasma creatinine measurement with calculation of estimated glomerular filtration rate 26 NRG Serum or plasma glucose measurement (mass/volume) 244 mg/dL 70-105 Serum or plasma calcium measurement (mass/volume) 7.9 mg/dL 8.5-10.1 Serum or plasma total bilirubin measurement (mass/volume) 0.7 mg/dL 0.1-1.0 Serum or plasma alkaline phosphatase measurement (enzymatic activity/volume) 73 U/L 40-136 Serum or plasma aspartate aminotransferase measurement (enzymatic activity/ volume) 18 U/L 5-34 Serum or plasma alanine aminotransferase measurement (enzymatic activity/volume ) 24 U/L 0-55 Serum or plasma protein measurement (mass/volume) 6.1 g/dL 6.4-8.2 Serum or plasma albumin measurement (mass/volume) 2.8 g/dL 3.2-4.5 Capillary blood glucose measurement by glucometer (mass/volume) - 08/29/17 11: 15 Capillary blood glucose measurement by glucometer (mass/volume) 187 mg/dL 70-110 Capillary blood glucose measurement by glucometer (mass/volume) - 08/29/17 15: 48 Capillary blood glucose measurement by glucometer (mass/volume) 300 mg/dL 70-110 Capillary blood glucose measurement by glucometer (mass/volume) - 08/29/17 20: 30 Capillary blood glucose measurement by glucometer (mass/volume) 253 mg/dL 70-110 Complete blood count (CBC) with automated white blood cell (WBC) differential - 08/30/17 05:43 Blood leukocytes automated count (number/volume) 15.2 10*3/uL 4.3-11.0 Blood erythrocytes automated count (number/volume) 3.43 10*6/uL 4.35-5.85 Venous blood hemoglobin measurement (mass/volume) 8.0 g/dL 11.5-16.0 Blood hematocrit (volume fraction) 26 % 35-52 Automated erythrocyte mean corpuscular volume 76 [foz_us] 80-99 Automated erythrocyte mean corpuscular hemoglobin (mass per erythrocyte) 23 pg 25-34 Automated erythrocyte mean corpuscular hemoglobin concentration measurement ( mass/volume) 31 g/dL 32-36 Automated erythrocyte distribution width ratio 14.9 % 10.0-14.5 Automated blood platelet count (count/volume) 189 10*3/uL 130-400 Automated blood platelet mean volume measurement 9.6 [foz_us] 7.4-10.4 Automated blood neutrophils/100 leukocytes 89 % 42-75 Automated blood lymphocytes/100 leukocytes 8 % 12-44 Blood monocytes/100 leukocytes 3 % 0-12 Automated blood eosinophils/100 leukocytes 0 % 0-10 Automated blood basophils/100 leukocytes 0 % 0-10 Blood neutrophils automated count (number/volume) 13.4 10*3 1.8-7.8 Blood lymphocytes automated count (number/volume) 1.2 10*3 1.0-4.0 Blood monocytes automated count (number/volume) 0.5 10*3 0.0-1.0 Automated eosinophil count 0.1 10*3/uL 0.0-0.3 Automated blood basophil count (count/volume) 0.0 10*3/uL 0.0-0.1 Comprehensive metabolic panel - 08/30/17 05:43 Serum or plasma sodium measurement (moles/volume) 130 mmol/L 135-145 Serum or plasma potassium measurement (moles/volume) 3.9 mmol/L 3.6-5.0 Serum or plasma chloride measurement (moles/volume) 102 mmol/L 98-107 Carbon dioxide 21 mmol/L 21-32 Serum or plasma anion gap determination (moles/volume) 7 mmol/L 5-14 Serum or plasma urea nitrogen measurement (mass/volume) 18 mg/dL 7-18 Serum or plasma creatinine measurement (mass/volume) 1.36 mg/dL 0.60-1.30 Serum or plasma urea nitrogen/creatinine mass ratio 13 NRG Serum or plasma creatinine measurement with calculation of estimated glomerular filtration rate 39 NRG Serum or plasma glucose measurement (mass/volume) 226 mg/dL 70-105 Serum or plasma calcium measurement (mass/volume) 7.8 mg/dL 8.5-10.1 Serum or plasma total bilirubin measurement (mass/volume) 0.6 mg/dL 0.1-1.0 Serum or plasma alkaline phosphatase measurement (enzymatic activity/volume) 75 U/L 40-136 Serum or plasma aspartate aminotransferase measurement (enzymatic activity/ volume) 18 U/L 5-34 Serum or plasma alanine aminotransferase measurement (enzymatic activity/volume ) 22 U/L 0-55 Serum or plasma protein measurement (mass/volume) 6.2 g/dL 6.4-8.2 Serum or plasma albumin measurement (mass/volume) 2.7 g/dL 3.2-4.5 Capillary blood glucose measurement by glucometer (mass/volume) - 08/30/17 10: 55 Capillary blood glucose measurement by glucometer (mass/volume) 202 mg/dL 70-110 IRON TEST - 08/30/17 12:07 Serum or plasma iron measurement (mass/volume) < % 35- 180 Capillary blood glucose measurement by glucometer (mass/volume) - 08/30/17 15: 40 Capillary blood glucose measurement by glucometer (mass/volume) 173 mg/dL 70-110 Capillary blood glucose measurement by glucometer (mass/volume) - 08/30/17 20: 43 Capillary blood glucose measurement by glucometer (mass/volume) 316 mg/dL 70-110 Vancomycin trough - 08/31/17 02:10 Vancomycin trough 10.7 ug/mL 10.0-20.0 Comprehensive metabolic panel - 08/31/17 05:05 Serum or plasma sodium measurement (moles/volume) 134 mmol/L 135-145 Serum or plasma potassium measurement (moles/volume) 4.0 mmol/L 3.6-5.0 Serum or plasma chloride measurement (moles/volume) 106 mmol/L 98-107 Carbon dioxide 20 mmol/L 21-32 Serum or plasma anion gap determination (moles/volume) 8 mmol/L 5-14 Serum or plasma urea nitrogen measurement (mass/volume) 17 mg/dL 7-18 Serum or plasma creatinine measurement (mass/volume) 1.25 mg/dL 0.60-1.30 Serum or plasma urea nitrogen/creatinine mass ratio 14 NRG Serum or plasma creatinine measurement with calculation of estimated glomerular filtration rate 43 NRG Serum or plasma glucose measurement (mass/volume) 135 mg/dL 70-105 Serum or plasma calcium measurement (mass/volume) 8.0 mg/dL 8.5-10.1 Serum or plasma total bilirubin measurement (mass/volume) 0.2 mg/dL 0.1-1.0 Serum or plasma alkaline phosphatase measurement (enzymatic activity/volume) 94 U/L 40-136 Serum or plasma aspartate aminotransferase measurement (enzymatic activity/ volume) 26 U/L 5-34 Serum or plasma alanine aminotransferase measurement (enzymatic activity/volume ) 20 U/L 0-55 Serum or plasma protein measurement (mass/volume) 6.0 g/dL 6.4-8.2 Serum or plasma albumin measurement (mass/volume) 2.5 g/dL 3.2-4.5 Complete blood count (CBC) with automated white blood cell (WBC) differential - 08/31/17 05:41 Blood leukocytes automated count (number/volume) 13.8 10*3/uL 4.3-11.0 Blood erythrocytes automated count (number/volume) 3.38 10*6/uL 4.35-5.85 Venous blood hemoglobin measurement (mass/volume) 8.1 g/dL 11.5-16.0 Blood hematocrit (volume fraction) 26 % 35-52 Automated erythrocyte mean corpuscular volume 75 [foz_us] 80-99 Automated erythrocyte mean corpuscular hemoglobin (mass per erythrocyte) 24 pg 25-34 Automated erythrocyte mean corpuscular hemoglobin concentration measurement ( mass/volume) 32 g/dL 32-36 Automated erythrocyte distribution width ratio 14.9 % 10.0-14.5 Automated blood platelet count (count/volume) 208 10*3/uL 130-400 Automated blood platelet mean volume measurement 9.9 [foz_us] 7.4-10.4 Automated blood neutrophils/100 leukocytes 83 % 42-75 Automated blood lymphocytes/100 leukocytes 10 % 12-44 Blood monocytes/100 leukocytes 6 % 0-12 Automated blood eosinophils/100 leukocytes 1 % 0-10 Automated blood basophils/100 leukocytes 0 % 0-10 Blood neutrophils automated count (number/volume) 11.4 10*3 1.8-7.8 Blood lymphocytes automated count (number/volume) 1.3 10*3 1.0-4.0 Blood monocytes automated count (number/volume) 0.9 10*3 0.0-1.0 Automated eosinophil count 0.2 10*3/uL 0.0-0.3 Automated blood basophil count (count/volume) 0.0 10*3/uL 0.0-0.1 Capillary blood glucose measurement by glucometer (mass/volume) - 08/31/17 11: 27 Capillary blood glucose measurement by glucometer (mass/volume) 300 mg/dL 70-110 Encounters ACCT No. Visit Date/Time Discharge Status Pt. Type Provider Facility Loc./Unit Complaint [id number] 09/10/2017 09:12:00 09/10/2017 23:59:59 CLS Outpatient JOSH THAYER [facility] CELLULITIS [id number] 09/03/2017 13:34:00 09/03/2017 23:59:59 CLS Outpatient HERMINIA YAO MD [facility] SEE ORDER [id number] 08/29/2017 01:00:00 08/31/2017 12:00:00 DIS Inpatient NAJMA CHOWDHURY, HERMINIA Vigil [facility] 4TH SEPSIS; L LEG CELLULITIS ; UTI; BRONCHITIS [id number] 03/27/2017 20:53:00 03/30/2017 13:20:00 DIS Inpatient DEBORAH CHOWDHURY, BOBBI Chaparro [facility] 4TH RESPIRATORY ARREST, ASPIRATION, LEUKOCYTOSIS, ARF [id number] 04/16/2016 07:40:00 04/16/2016 12:50:00 DIS Outpatient ESTEPHANIE STANFORD MD [facility] SINUSITIS [id number] 04/09/2016 13:09:00 04/09/2016 14:00:00 DIS Outpatient ESTEPHANIE STANFORD MD [facility] PREOP SINUSITIS [id number] 03/13/2016 10:23:00 03/13/2016 23:59:59 CLS Outpatient MARKO LAUREN [employer]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
[2017-10-13] MEDS ORDERED: VANCOMYCIN INJECTION 1,000 MG in NS (IVPB) 250 ML IV ONE ×2
[2017-10-13 00:20] LABS: BASOPHILS % (AUTO) 0 % (0-10); EOSINOPHILS # (AUTO) 0.1 10^3/uL (0.0-0.3); EOSINOPHILS % (AUTO) 1 % (0-10); HEMATOCRIT 35 % (35-52); HEMOGLOBIN 11.3 G/DL (11.5-16.0); LYMPHOCYTES # (AUTO) 1.7 X 10^3 (1.0-4.0); LYMPHOCYTES % (AUTO) 12 % (12-44); MEAN CORPUSCULAR HEMOGLOBIN 26 PG (25-34); MEAN CORPUSCULAR HGB CONC 33 G/DL (32-36); MEAN CORPUSCULAR VOLUME 79 FL (80-99); MEAN PLATELET VOLUME 9.4 FL (7.4-10.4); MONOCYTES # (AUTO) 1.2 X 10^3 (0.0-1.0); MONOCYTES % (AUTO) 9 % (0-12); NEUTROPHILS # (AUTO) 10.9 X 10^3 (1.8-7.8); NEUTROPHILS % (AUTO) 78 % (42-75); PLATELET COUNT 208 10^3/uL (130-400); RED BLOOD COUNT 4.37 10^6/uL (4.35-5.85); RED CELL DISTRIBUTION WIDTH 18.2 % (10.0-14.5)
--- NOTE | 2017-10-13 00:35 | ED Lower Extremity ---
General Chief Complaint: Skin/Wound Problems Stated Complaint: RT FOOT CELLULITIS Nursing Triage Note: RIGHT LOWER LEG WARMTH/REDNESS Nursing Sepsis Screen: No Definite Risk Source: patient, old records History of Present Illness Date Seen by Provider: Oct 12, 2017 Time Seen by Provider: 23:50 Initial Comments PT ARRIVES IN WHEELCHAIR, VIA POV WITH PROGRAM AIDE FROM [facility] PT C/O RIGHT LOWER LEG REDNESS AND WARMTH SINCE EARLY THIS MORNING--WORSE SINCE 1900 TONIGHT, AND IS BECOMING PAINFUL HAD FEVER OF 101 TONIGHT--TEMPERATURE WAS NOT CHECKED EARLIER IN THE DAY PT WAS ADMITTED 08/29/17-08/31/17 FOR CELLULITIS OF LEFT LEG. PT STATES SHE HAS NOT BEEN ON ANTIBIOTICS FOR OVER A MONTH. STATES SHE STILL HAS REDNESS AND WARMTH TO LEFT LOWER LEG HAS NOT SEEN DR YAO SINCE 3RD WEEK OF AUGUST, BUT [employer] PAVING SUPERINTENDENT CAME TO [facility] TODAY TO LOOK AT HER RIGHT LEG, AND NO TREATMENT WAS STARTED. PT HAS HAD PRIOR CVA WITH LEFT SIDED PARALYSIS AND HAS CHRONIC LEFT LEG EDEMA AND HAS HAD CELLULITIS IN THIS LEG BEFORE. PT IS WHEELCHAIR BOUND. PT HAS PERIPHERAL NEUROPATHY, BUT STATES SHE STILL HAS SOME FEELING IN HER FEET. PCP: DR. YAO AT [facility] Allergies and Home Medications Allergies Coded Allergies: sulfamethoxazole (Verified Allergy, Unknown, 04/09/16) trimethoprim (Verified Allergy, Unknown, 04/09/16) Home Medications Acetaminophen 500 Mg Tablet, 1,000 MG PO Q6H PRN for PAIN-MILD, (Reported) MAY ALSO BE GIVEN FOR HEADACHE / ELEVATED TEMPERATURE Amlodipine Besylate 5 Mg Tablet, 5 MG PO DAILY, (Reported) Aspirin 81 Mg Tab.chew, 81 MG PO HS, (Reported) GIVE 30 MINUTES PRIOR TO ADMINISTRATION OF ENDUR-ACIN (NIASPAN) ER 500MG Atorvastatin Calcium 20 Mg Tablet, 20 MG PO HS, (Reported) Bethanechol Chloride 10 Mg Tablet, 10 MG PO BID, (Reported) Bisacodyl 10 Mg Supp.rect, 10 MG RC DAILY PRN for CONSTIPATION-4TH LINE, ( Reported) Budesonide/Formoterol Fumarate 10.2 Gm Hfa.aer.ad, 2 PUFF IH BID, (Reported) Cephalexin 500 Mg Capsule, 500 MG PO QID, #28 Prescribed by: ALEJANDRA RUSH on 08/31/17 0937 Cholecalciferol 5,000 Unit Capsule, 5,000 UNIT PO HS, (Reported) Cinnamon Bark 500 Mg Capsule, 1,000 MG PO DAILY, (Reported) TAKES 2 (500 MG) CAPSULES Citalopram Hydrobromide 10 Mg Tablet, 10 MG PO DAILY, (Reported) Clopidogrel Bisulfate 75 Mg Tablet, 75 MG PO DAILY, (Reported) Cod Liver Oil/Zinc Oxide 28 Gm Paste..g., TP EVERY HOUR PRN for GAULDING/REDNESS , (Reported) Cod Liver Oil/Zinc Oxide 28 Gm Paste..g., TP EVERY SHIFT, (Reported) Cranberry Conc/C/Bacill Coag 1 Each Tablet, 1 TAB PO DAILY, (Reported) Glucosa Angulo 2Kcl/Chondroitin Angulo 1 Each Capsule, 2 CAP PO DAILY, (Reported) Hydrocortisone Acetate 28 Gm Oint...g., 1 GM TP Q8H PRN for Gaulding/Redness, ( Reported) Apply to buttocks topically every 8 Hours prn for gaulding/redness Hydrocortisone Acetate 28 Gm Oint...g., 1 GM TP DAILY PRN for RASH, (Reported) Apply to rash to buttocks topically one time a day for rash/itching Hydroxyzine HCl 25 Mg Tablet, 25 MG PO Q8H PRN for ITCHING, (Reported) Insulin Aspart 300 Units/3 Ml Solution, SQ SLIDING/SCALE, (Reported) 60-150 0 UNITS 151-200 4 UNITS 201-250 6 UNITS 251-300 8 UNITS 301-350 10 UNITS 351-400 12 UNITS ABOVE 400 CALL PHYSICIAN Insulin Detemir 100 Unit/1 Ml Insuln.pen, 40 UNIT SQ BID, (Reported) Iron Polysaccharide Complex 150 Mg Capsule, 150 MG PO DAILY, #30 Prescribed by: ALEJANDRA RUSH on 08/31/17 0937 Liraglutide 0.6 Mg/0.1 Ml Pen.injctr, 1.8 MG SQ DAILY, (Reported) Magnesium Hydroxide 400 Mg/5 Ml Oral.susp, 30 ML PO DAILY PRN for CONSTIPATION- 7TH LINE, (Reported) Melatonin/Pyridoxine HCl (B6) 1 Each Tablet, 3 MG PO HS, (Reported) Metoprolol Succinate 100 Mg Tab.er.24h, 100 MG PO DAILY, (Reported) Multivits W-Fe,Other Min/Lut 1 Each Tablet, 1 TAB PO TID, (Reported) Niacin 500 Mg Tablet.er, 500 MG PO HS, (Reported) [place]-3 Fatty Acids/Fish Oil 1 Each Capsule, 1,200 MG PO DAILY, (Reported) Pantoprazole Sodium 20 Mg Tablet.dr, 20 MG PO DAILY, (Reported) Petrolatum,White 5 Gm Oint.pack, TP BID, (Reported) Apply to buttocks topically every shift for skin condition Phenylephrine/Shk Lv/Mo/Pet,Wh 57 Gm Oint...g., 1 APPLIC RC Q12H PRN for HEMORRHOIDS, (Reported) Saxagliptin HCl 2.5 Mg Tablet, 2.5 MG PO DAILY, (Reported) Sodium Chloride 104 Ml [place], 2 SPRAYS NSEACH Q4H PRN for Nasal Moisture, ( Reported) Valerian Root 500 Mg Capsule, 500 MG PO DAILY PRN for ANXIETY, (Reported) Vitamin B Complex & Vit C No.4 150 Mg Tablet, 150 MG PO DAILY, (Reported) [Blood Sugar 360] , 1 CAP PO PRN PRN for BLOOD SUGAR MAINTENANCE, (Reported) [comforTone] , 3 TAB PO HS, (Reported) [digize oil] , 1 DROP TOP UD, (Reported) Apply topically to skin as needed for supplement related functional disorders of the stomach as needed for upset stomach, there is no dosage for this oil, may be used topically or dabbed inside the mouth on check, may keep at the bedside and self administer for digestive difficulties Constitutional: see HPI, fever Respiratory: no symptoms reported Cardiovascular: no symptoms reported Gastrointestinal: no symptoms reported Genitourinary: no symptoms reported Musculoskeletal: see HPI Skin: see HPI Psychiatric/Neurological: See HPI, Pre-Existing Deficit Past Johqgzu-Mpmcam-Tfpqpl Hx Patient Social History Alcohol Use: Denies Use Recreational Drug Use: No Smoking Status: Former Smoker Type Used: Cigarettes Former Smoker, Quit: Sep 13, 1999 2nd Hand Smoke Exposure: No Recent Foreign Travel: No Contact w/Someone Who Travel: No Recent Infectious Disease Expo: No Recent Hopitalizations: No Immunizations Up To Date Tetanus Booster (TDap): Unknown Seasonal Allergies Seasonal Allergies: Yes Surgeries History of Surgeries: Yes (NASAL SURGERY-NASAL POLYPS; RIGHT TKR; FOOT SX; CARDIAC CATH 2011--NO INTERVENTION) Surgeries: Cardiac, Joint Replacement, Nose, Orthopedic Respiratory History of Respiratory Disorde: Yes (03/2017-REPSIRATORY ARREST DUE TO ASPIRATION WITH ASPIRATION PNEUMONIA) Respiratory Disorders: Pneumonia, Sleep Apnea, COPD Currently Using CPAP: No Currently Using BIPAP: No Cardiovascular History of Cardiac Disorders: Yes (CHRONIC LEFT LEG EDEMA POST CVA WITH LEFT SIDE PARALYSIS; CARDIAC CATH 2011--NO INTERVENTION. 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 Genitourinary History of Genitourinary Disor: Yes (OVERACTIVE BLADDER) Genitourinary Disorders: Kidney Stones, Renal Failure Gastrointestinal History of Gastrointestinal Di: Yes (DYSPHAGIA) Gastrointestinal Disorders: Gastroesophageal Reflux, Chronic Constipation, Hemorrhoids, Ulcer Musculoskeletal History of Musculoskeletal Dis: Yes (LT SIDE WEAKNESS FROM STROKE; GAIT DISTURBANCE-WHEELCHAIR BOUND; CHRONIC GENERALIZED PAIN AND WEAKNESS) Endocrine History of Endocrine Disorders: Yes Endocrine Disorders: Diabetes, Insulin dep HEENT History of HEENT Disorders: Yes (Nasal SX; DYSPHAGIA; CHRONIC RHINITIS) HEENT Disorders: Dysphagia Loss of Vision: Denies Hearing Impairment: Denies Cancer History of Cancer: No Psychosocial History of Psychiatric Problem: Yes Behavioral Health Disorders: Sleep Difficulties, Anxiety, Depression Integumentary History of Skin or Integumenta: Yes (CANDIDIASIS) Blood Transfusions History of Blood Disorders: No Adverse Reaction to a Blood Tr: No (No bllod transfusions d/t TAYE) Family Medical History Significant Family History: CVA, Diabetes Family Medial History: Completed stroke 19 FATHER G8 BROTHER Diabetes mellitus G8 BROTHER Hypertension 19 FATHER 19 MOTHER Physical Exam Vital Signs Vital Sign - Last 12Hours 10/12/17 23:39 Temp 98.8 Pulse 94 Resp 18 B/P (MAP) 129/60 (83) Pulse Ox 94 O2 Delivery Room Air Capillary Refill : Less Than 3 Seconds General Appearance: no apparent distress, obese Cardiovascular: regular rate, rhythm, no murmur Respiratory: normal breath sounds, no respiratory distress, no accessory muscle use Legs: bilateral leg other (RIGHT LOWER LEG WITH 2+ EDEMA, ERYTHEMA, WARMTH AND TENDERNESS FROM PROXIMAL 1/3 OF LOWER LEG DOWN TO ANKLE. LEFT LEG WITH 3-4+ EDEMA. CHRONIC VENOUS STASIS CHAGES, BUT ALSO DIFFUSE DARK ERYTHEMA, WARMTH AND SLIGHT TENDERNESS FROM KNEE DOWN TO AND INCLUDING ALL TOES. HAS MULTIPLE SCABBED SUPERFICAL SCRATCHES TO ANTERIOR ASPECT OF LOWER LEFT LEG, OTHERWISE NO OBVIOUS WOUNDS. DISTAL PULSES +3/4 BILATERALLY. LEFT LEG IS FLACCID FROM PRIOR CVA. RIGHT LEG WITH MOTOR/SENSORY INTACT. 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4-10.4 FL Neutrophils (%) (Auto) 78 H 42-75 % Lymphocytes (%) (Auto) 12 12-44 % Monocytes (%) (Auto) 9 0-12 % Eosinophils (%) (Auto) 1 0-10 % Basophils (%) (Auto) 0 0-10 % Neutrophils # (Auto) 10.9 H 1.8-7.8 X 10^3 Lymphocytes # (Auto) 1.7 1.0-4.0 X 10^3 Monocytes # (Auto) 1.2 H 0.0-1.0 X 10^3 Eosinophils # (Auto) 0.1 0.0-0.3 10^3/uL Basophils # (Auto) 0.0 0.0-0.1 10^3/uL Sodium Level 134 L 135-145 MMOL/L Potassium Level 4.1 3.6-5.0 MMOL/L Chloride Level 103 98-107 MMOL/L Carbon Dioxide Level 21 21-32 MMOL/L Anion Gap 10 5-14 MMOL/L Blood Urea Nitrogen 19 H 7-18 MG/DL Creatinine 1.29 0.60-1.30 MG/DL Estimat Glomerular Filtration Rate 41 BUN/Creatinine Ratio 15 Glucose Level 214 H 70-105 MG/DL Lactic Acid Level 1.42 0.50-2.00 MMOL/L Calcium Level 8.9 8.5-10.1 MG/DL Total Bilirubin 0.9 0.1-1.0 MG/DL Aspartate Amino Transf (AST/SGOT) 16 5-34 U/L Alanine Aminotransferase (ALT/SGPT) 21 0-55 U/L Alkaline Phosphatase 110 40-136 U/L Total Protein 7.5 6.4-8.2 GM/DL Albumin 3.5 3.2-4.5 GM/DL My Orders Orders - NOELLE CLARK DO Saline Lock/Iv-Start (10/12/17 23:50) Cbc With Automated Diff (10/12/17 23:50) Comprehensive Metabolic Panel (10/12/17 23:50) Lactic Acid Analyzer (10/12/17 23:50) Ua Culture If Indicated (10/12/17 23:50) Blood Culture (10/12/17 23:50) Vancomycin Injection (Vancomycin Injecti (10/13/17 00:00) Medications Given in ED Current Medications Medications Dose Ordered Sig/Helen Route Start Time Stop Time Status Last Admin Dose Admin Vancomycin HCl 1000 mg/Sodium Chloride 250 ml @ 250 mls/hr ONCE ONCE IV 10/13/17 00:00 10/13/17 00:59 DC 10/13/17 00:19 250 MLS/HR Vital Signs/I&O Vital Sign - Last 12Hours 10/12/17 23:39 Temp 98.8 Pulse 94 Resp 18 B/P (MAP) 129/60 (83) Pulse Ox 94 O2 Delivery Room Air Blood Pressure Mean: 83 Progress Note : Progress Note NO DETERIORATION IN PT'S CONDITION DURING ER STAY Departure Communication (Admissions) Time/Spoke to Admitting Phy: 00:[address] WARD. ACCEPTS PT FOR ADMIT. ADVISES VANCOMYCIN + ROCEPHIN Impression Impression: Primary Impression: LEFT LOWER LEG AND FOOT CELLULITIS Additional Impressions: RIGHT LOWER LEG CELLULITIS WITHOUT FOOT IDDM (insulin dependent diabetes mellitus) S/P CVA WITH LEFT SIDED PARALYSIS Morbid obesity Disposition: ADMITTED INPATIENT Condition: Stable Admissions Decision to Admit Reason: Admit from ER (General) Decision to Admit/Date: Oct 13, 2017 Time/Decision to Admit Time: 00:40 Departure-Patient Inst. Referrals: HERMINIA YAO MD (PCP/Family) Primary Care Physician NOELLE CLARK DO Oct 13, 2017 00:35
[2017-10-13 00:43] LABS: ALBUMIN 3.5 GM/DL (3.2-4.5); BILIRUBIN,TOTAL 0.9 MG/DL (0.1-1.0); CALCIUM 8.9 MG/DL (8.5-10.1); CREATININE SERUM 1.29 MG/DL (0.60-1.30); POTASSIUM 4.1 MMOL/L (3.6-5.0); TOTAL PROTEIN 7.5 GM/DL (6.4-8.2)
--- OUTSIDE RECORDS SUMMARY | 2017-10-13 01:04 | XMS REPORT | Continuity of Care Document ---
Author Author [facility] Organization [facility] Address Unknown Phone Unavailable Allergies Active Description Code Type Severity Reaction Onset Reported/Identified Relationship to Patient Clinical Status Yes NKANo Known Allergies NKA Miscellaneous Allergy Unknown N/A 06/16/2008 Yes sulfamethoxazole [id number] Drug Allergy Unknown N/A 04/09/2016 Yes trimethoprim [id number] Drug Allergy Unknown N/A 04/09/2016 Medications There [...] TRACT INFECTION NOS 03/13/2016 LEONIDAS, MARKO J CHECKER Ot R22.0 LOCALIZED SWELLING, MASS AND LUMP, [...] TRACT INFECTION NOS 03/13/2016 LEONIDAS, MARKO J CHECKER Ot R22.0 LOCALIZED SWELLING, MASS AND LUMP, HEAD 03/18/2016 LEONIDAS, MARKO J CHECKER Ot R22.0 LOCALIZED SWELLING, MASS AND LUMP, HEAD 04/06/2016 LEONIDAS, MARKO J CHECKER Ot R22.0 LOCALIZED SWELLING, MASS AND LUMP, [...] FOR OTHER BACTER 04/10/2016 MARKO LAUREN Willi CHECKER Ot R22.0 LOCALIZED SWELLING, MASS AND LUMP, HEAD 04/16/2016 ESTEPHANIE STANFORD MD Ot E11.9 TYPE 2 DIABETES MELLITUS WITHOUT COMPLIC 04/16/2016 ESTEPHANIE STANFORD MD, Ot J32.0 CHRONIC MAXILLARY SINUSITIS 04/16/2016 ESTEPHANIE STANFORD MD, Ot J32.1 CHRONIC FRONTAL SINUSITIS 04/16/2016 ESTEPHANIE STANFORD MD Ot J32.2 CHRONIC ETHMOIDAL SINUSITIS 04/16/2016 ESTEPHANIE STANFORD MD, Ot Z79.4 SNF (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 03/29/2017 BOBBI CABRERA [...] MD Ot I25.10 ATHSCL HEART DISEASE OF [place] CORONARY 03/29/2017 BOBBI CABRERA MD Ot I69.354 [...] ADULT 03/29/2017 BOBBI CABRERA MD Ot 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 03/29/2017 BOBBI CABRERA MD, Ot Z87.11 PERSONAL HISTORY OF PEPTIC ULCER DISEASE 03/29/2017 BOBBI CABRERA MD, Ot Z87.19 PERSONAL HISTORY OF OTHER DISEASES OF TH 03/29/2017 BBOBI CABRERA MD, Ot Z87.891 PERSONAL HISTORY OF [...] MD Ot I25.10 ATHSCL HEART DISEASE OF [place] CORONARY 03/30/2017 BOBBI CABRERA MD Ot I69.354 [...] ADULT 03/30/2017 BOBBI CABRERA MD Ot 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 03/30/2017 BOBBI CABRERA [...] MD Ot I25.10 ATHSCL HEART DISEASE OF [place] CORONARY 03/30/2017 BOBBI CABRERA MD Ot I69.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 03/30/2017 BOBBI CABRERA MD Ot J44.9 CHRONIC OBSTRUCTIVE PULMONARY DISEASE, U 03/30/2017 BOBBI CABRERA MD Ot J98.11 ATELECTASIS 03/30/2017 BOBBI CABRERA MD Ot N28.9 DISORDER OF KIDNEY AND URETER, UNSPECIFI 03/30/2017 BOBBI CABRERA MD Ot R07.89 OTHER CHEST PAIN 03/30/2017 BOBBI CABRERA MD, Ot R09.2 RESPIRATORY ARREST 03/30/2017 BOBBI CABRERA MD, Ot R47.1 DYSARTHRIA AND ANARTHRIA 03/30/2017 BOBBI CABRERA MD, Ot R79.89 OTHER SPECIFIED ABNORMAL FINDINGS OF BLO 03/30/2017 BOBBI CABRERA MD, Ot T17.920A FOOD IN RESP TRACT, PART UNSP CAUSING 03/30/2017 BOBBI CABRERA MD Ot Y92.[address] IN LONG TERM PLACE 03/30/2017 BOBBI CABRERA MD Ot Z66 DO NOT RESUSCITATE 03/30/2017 BOBBI CABRERA MD, Ot Z68.42 BODY MASS INDEX (BMI) 45.0-49.9, ADULT 03/30/2017 BOBBI CABRERA MD, Ot Z79.4 SNF (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 03/30/2017 BOBBI CABRERA [...] TYPE 2 DIABETES MELLITUS WITHOUT COMPLIC 08/31/2017 HREMINIA YAO MD Ot E78.00 PURE HYPERCHOLESTEROLEMIA, UNSPECIFIED 08/31/2017 HERMINIA YAO MD Ot E86.0 DEHYDRATION 08/31/2017 HERMINIA YAO MD, Ot E87.1 HYPO-OSMOLALITY AND HYPONATREMIA 08/31/2017 HERMINIA YAO MD, Ot F41.9 ANXIETY DISORDER, UNSPECIFIED 08/31/2017 HERMINIA YAO MD, Ot I25.10 ATHSCL HEART DISEASE OF [place] CORONARY 08/31/2017 HERMINIA YAO MD, Ot I69.354 [...] EDEMA 08/31/2017 HERMINIA YAO MD Ot Z79.4 SNF (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 08/31/2017 HERMINIA YAO [...] Bacteria identification in isolate by anaerobe culture [id number] NRG Gram stain microscopy - 04/16/16 09:40 GRAM STAIN RESULT FEW WBC'S, NO BACTERIA OBSERVED NRG Bacteria identification in wound by culture - 04/16/16 09:40 Bacteria identification in wound by culture [id number] NRG FREE TEXT EXTERNAL SENSITIVITY REPORTED 04/18/16 [...] measurement by glucometer (mass/volume) 300 mg/dL 70-110 Complete blood count (CBC) with automated white blood cell (WBC) differential - 10/13/17 00:10 Blood leukocytes automated count (number/volume) 14.0 10*3/uL 4.3-11.0 Blood erythrocytes automated count (number/volume) 4.37 10*6/uL 4.35-5.85 Venous blood hemoglobin measurement (mass/volume) 11.3 g/dL 11.5-16.0 Blood hematocrit (volume fraction) 35 % 35-52 Automated erythrocyte mean corpuscular volume 79 [foz_us] 80-99 Automated erythrocyte mean corpuscular hemoglobin (mass per erythrocyte) 26 pg 25-34 Automated erythrocyte mean corpuscular hemoglobin concentration measurement ( mass/volume) 33 g/dL 32-36 Automated erythrocyte distribution width ratio 18.2 % 10.0-14.5 Automated blood platelet count (count/volume) 208 10*3/uL 130-400 Automated blood platelet mean volume measurement 9.4 [foz_us] 7.4-10.4 Automated blood neutrophils/100 leukocytes 78 % 42-75 Automated blood lymphocytes/100 leukocytes 12 % 12-44 Blood monocytes/100 leukocytes 9 % 0-12 Automated blood eosinophils/100 leukocytes 1 % 0-10 Automated blood basophils/100 leukocytes 0 % 0-10 Blood neutrophils automated count (number/volume) 10.9 10*3 1.8-7.8 Blood lymphocytes automated count (number/volume) 1.7 10*3 1.0-4.0 Blood monocytes automated count (number/volume) 1.2 10*3 0.0-1.0 Automated eosinophil count 0.1 10*3/uL 0.0-0.3 Automated blood basophil count (count/volume) 0.0 10*3/uL 0.0-0.1 Blood lactic acid measurement (moles/volume) - 10/13/17 00:10 Blood lactic acid measurement (moles/volume) 1.42 mmol/L 0.50-2.00 Comprehensive metabolic panel - 10/13/17 00:10 Serum or plasma sodium measurement (moles/volume) 134 mmol/L 135-145 Serum or plasma potassium measurement (moles/volume) 4.1 mmol/L 3.6-5.0 Serum or plasma chloride measurement (moles/volume) 103 mmol/L 98-107 Carbon dioxide 21 mmol/L 21-32 Serum or plasma anion gap determination (moles/volume) 10 mmol/L 5-14 Serum or plasma urea nitrogen measurement (mass/volume) 19 mg/dL 7-18 Serum or plasma creatinine measurement (mass/volume) 1.29 mg/dL 0.60-1.30 Serum or plasma urea nitrogen/creatinine mass ratio 15 NRG Serum or plasma creatinine measurement with calculation of estimated glomerular filtration rate 41 NRG Serum or plasma glucose measurement (mass/volume) 214 mg/dL 70-105 Serum or plasma calcium measurement (mass/volume) 8.9 mg/dL 8.5-10.1 Serum or plasma total bilirubin measurement (mass/volume) 0.9 mg/dL 0.1-1.0 Serum or plasma alkaline phosphatase measurement (enzymatic activity/volume) 110 U/L 40-136 Serum or plasma aspartate aminotransferase measurement (enzymatic activity/ volume) 16 U/L 5-34 Serum or plasma alanine aminotransferase measurement (enzymatic activity/volume ) 21 U/L 0-55 Serum or plasma protein measurement (mass/volume) 7.5 g/dL 6.4-8.2 Serum or plasma albumin measurement (mass/volume) 3.5 g/dL 3.2-4.5 Encounters ACCT No. Visit Date/Time Discharge Status Pt. Type Provider Facility Loc./Unit Complaint [id number] 09/10/2017 09:12:00 09/10/2017 23:59:59 CLS Outpatient JOSH THAYER [facility] CELLULITIS [id number] 09/03/2017 13:34:00 09/03/2017 23:59:59 CLS Outpatient HERMINIA YAO MD [facility] SEE ORDER [id number] 08/29/2017 01:00:00 08/31/2017 12:00:00 DIS Inpatient HERMINIA YAO MD [facility] 4TH SEPSIS; L LEG CELLULITIS ; UTI; BRONCHITIS [id number] 03/27/2017 20:53:00 03/30/2017 13:20:00 DIS Inpatient DEBORAH CHOWDHURY, BOBBI Chaparro [facility] 4TH RESPIRATORY ARREST, ASPIRATION, LEUKOCYTOSIS, ARF [id number] 04/16/2016 07:40:00 04/16/2016 12:50:00 DIS Outpatient ESTEPHANIE STANFORD MD [facility] SINUSITIS [id number] 04/09/2016 13:09:00 04/09/2016 14:00:00 DIS Outpatient ESTEPHANIE STANFORD MD [facility] PREOP SINUSITIS [id number] 03/13/2016 10:23:00 03/13/2016 23:59:59 CLS Outpatient MARKO LAUREN CHECKER [facility] RAD RT NASAL MASS [id number] 09/10/2014 18:28:00 09/10/2014 23:59:59 CLS Outpatient KARLY CHOWDHURY, MARIAN Victor [facility] MSL UTI [id number] 11/06/2013 09:46:00 11/06/2013 23:59:59 CLS Outpatient SWATHI RAMIREZ [facility] CARD IDDM, HYPERLIPIDEMIA,HTN [id number] 10/13/2017 00:28:00 Document Registration [id number] 12/24/2014 12:50:00 Document Registration [id number] 12/24/2014 12:50:00 Document Registration [id number] 11/03/2011 10:50:00 Document Registration [id number] 10/27/2011 10:30:00 Document Registration [id number] 01/11/2011 10:52:00 Document Registration
[2017-10-13 01:16] VITALS: BP 119/55
[2017-10-13] MEDS ORDERED: ACETAMINOPHEN 500 MG TAB (TYLENOL) PO PRN (01:45)
[2017-10-13] MEDS: cefTRIAXone 1,000 MG/NS 50 ML IVPB IV SCH ×2 (02:07)
[2017-10-13 02:21] LABS: BILIRUBIN,URINE NEGATIVE (NEGATIVE); CLARITY,URINE CLEAR; COLOR,URINE YELLOW; GLUCOSE, URINE (UA) 3+ (NEGATIVE); KETONES,URINE NEGATIVE (NEGATIVE); LEUKOCYTE ESTERASE ,URINE NEGATIVE (NEGATIVE); NITRITE,URINE POSITIVE (NEGATIVE); PH,URINE 5 (5-9); PROTEIN,URINE 2+ (NEGATIVE); UROBILINOGEN,URINE NORMAL (NORMAL)
[2017-10-13 02:43] LABS: BACTERIA,URINE NEGATIVE /HPF; SQUAMOUS EPITHELIAL CELL,UR RARE /HPF
[2017-10-13 03:58] VITALS: BP_SYST 125; BP_SYST 130; BP_DIAS 71; BP_DIAS 77
[2017-10-13] MEDS: inSUlin (REGULAR) HUMAN 1 UNIT/0.01 ML (CHARGE PER UNIT) SC SCH ×4 (05:17→21:20)
[2017-10-13 05:46] LABS: BASOPHILS % (AUTO) 0 % (0-10); EOSINOPHILS # (AUTO) 0.1 10^3/uL (0.0-0.3); EOSINOPHILS % (AUTO) 1 % (0-10); HEMATOCRIT 32 % (35-52); LYMPHOCYTES # (AUTO) 1.8 X 10^3 (1.0-4.0); LYMPHOCYTES % (AUTO) 16 % (12-44); MEAN CORPUSCULAR HEMOGLOBIN 25 PG (25-34); MEAN CORPUSCULAR HGB CONC 32 G/DL (32-36); MEAN CORPUSCULAR VOLUME 80 FL (80-99); MEAN PLATELET VOLUME 9.9 FL (7.4-10.4); MONOCYTES # (AUTO) 1.1 X 10^3 (0.0-1.0); MONOCYTES % (AUTO) 10 % (0-12); NEUTROPHILS % (AUTO) 72 % (42-75); PLATELET COUNT 177 10^3/uL (130-400); RED BLOOD COUNT 3.96 10^6/uL (4.35-5.85); RED CELL DISTRIBUTION WIDTH 18.2 % (10.0-14.5)
[2017-10-13 06:10] LABS: ALBUMIN 3.2 GM/DL (3.2-4.5); BILIRUBIN,TOTAL 0.4 MG/DL (0.1-1.0); CALCIUM 8.4 MG/DL (8.5-10.1); CREATININE SERUM 1.23 MG/DL (0.60-1.30); POTASSIUM 3.9 MMOL/L (3.6-5.0); TOTAL PROTEIN 6.7 GM/DL (6.4-8.2)
[2017-10-13] MEDS ORDERED: INFLUENZA TRIvalent 2017-2018 0.5 ML/45 MCG SYR IM ONE (07:00)
[2017-10-13] MEDS ORDERED: CATHETER FLUSH 10 ML SYR IV PRN (07:00)
[2017-10-13 08:00] VITALS: BP 157/87
[2017-10-13] MEDS ORDERED: AMIN887L16 PO (10:23)
[2017-10-13] MEDS ORDERED: MELA3TAB PO (10:23)
[2017-10-13] MEDS ORDERED: CRAN500T2 PO (10:23)
[2017-10-13] MEDS ORDERED: ZINC56.7 TP ×2 (10:23)
[2017-10-13] MEDS ORDERED: HYDR-757 PO (10:23)
[2017-10-13] MEDS ORDERED: FLUT16SP22 NS (10:23)
[2017-10-13] MEDS ORDERED: [UNRECOGNIZED DRUG - OTHER] PO (10:23)
[2017-10-13] MEDS ORDERED: VITA1TAB33 PO (10:23)
[2017-10-13] MEDS ORDERED: HYDR28.428 TP ×2 (10:23)
[2017-10-13] MEDS ORDERED: RANI150T90 PO (10:23)
[2017-10-13] MEDS ORDERED: [UNRECOGNIZED DRUG - OTHER] RC (10:23)
[2017-10-13] MEDS ORDERED: MENT396L TP (10:23)
[2017-10-13] MEDS ORDERED: [UNRECOGNIZED DRUG - OTHER] TOP (10:23)
[2017-10-13] MEDS ORDERED: FERR-84 PO (10:23)
[2017-10-13] MEDS ORDERED: GLUC1TAB20 PO (10:23)
[2017-10-13] MEDS: CATHETER FLUSH 10 ML SYR IV SCH ×2 (11:41→22:30)
[2017-10-13] MEDS: ENOXAPARIN 40 MG/0.4 ML (LOVENOX) SYR SC SCH (11:41)
[2017-10-13 12:00] VITALS: BP 157/87
[2017-10-13] MEDS ORDERED: VANCOMYCIN INJECTION 1,500 MG in NS IV 500 ML 500 ML IV SCH (12:00)
--- NOTE | 2017-10-13 13:54 | History & Physicial (CHS) ---
HPI History of Present Illness: 67 yo female resident at [facility] brought to ER with worsening redness, blistering, pain in her right lower leg and fever. Found to have leukocytosis in addition to fever documented at nursing facility. She denies any other symptoms of illness and did not feel poorly when she had the fever. She does continue to have marked tenderness in her right leg. She has had cellulitis in her left leg previously. Date seen by provider: Oct 13, 2017 Time Seen by Provider: 11:05 Attending Physician Eusebio Potter MD PCP Roberto Ramírez MD Consult Date of Admission Oct 13, 2017 at 12:30 am Home Medications Home Medications Reviewed patient Home Medication Reconciliation Form Allergies Coded Allergies: sulfamethoxazole (Verified Allergy, Unknown, 10/13/17) trimethoprim (Verified Allergy, Unknown, 10/13/17) [id number]-[id number]-Bonllu Hx Patient Social History Alcohol Use: Denies Use Recreational Drug Use: No Smoking Status: Former Smoker (13 pack years, [id number]) Former smoker/When Quit: Sep 13, 1999 Type Used: Cigarettes 2nd Hand Smoke Exposure: No Recent Foreign Travel: No Contact w/other who traveled: No Recent Hopitalizations: No Recent Infectious Disease Expo: No Physical Abuse Screen: No Sexual Abuse: No Immunizations Up To Date Tetanus Booster (TDap): Unknown Past Medical History PMHx: HTN HLD DMII PSurgHx: Right knee replacement Right eye surgery Family Medical History Significant Family History: CVA, Diabetes Review of Systems (CHC) Constitutional: fever, No malaise EENTM: No nose congestion, No nose pain, No throat pain Respiratory: No cough, No short of breath Cardiovascular: No chest pain Gastrointestinal: No abdominal pain, No constipation, No diarrhea, No nausea, No vomiting Genitourinary: no symptoms reported Musculoskeletal: No joint pain, No muscle pain Skin: see HPI Psychiatric/Neurological: No Symptoms Reported Reviewed Test Results Reviewed Test Results Lab Laboratory Tests Test 10/13/17 00:10 10/13/17 02:00 10/13/17 04:59 10/13/17 05:14 Range/Units White Blood Count 14.0 H 11.0 4.3-11.0 10^3/uL Red Blood Count 4.37 3.96 L 4.35-5.85 10^6/uL Hemoglobin 11.3 L 10.0 L 11.5-16.0 G/DL Hematocrit 35 32 L 35-52 % Mean Corpuscular Volume 79 L 80 80-99 FL Mean Corpuscular Hemoglobin 26 25 25-34 PG Mean Corpuscular Hemoglobin Concent 33 32 32-36 G/DL Red Cell Distribution Width 18.2 H 18.2 H 10.0-14.5 % Platelet Count 208 177 130-400 10^3/uL Mean Platelet Volume 9.4 9.9 7.4-10.4 FL Neutrophils (%) (Auto) 78 H 72 42-75 % Lymphocytes (%) (Auto) 12 16 12-44 % Monocytes (%) (Auto) 9 10 0-12 % Eosinophils (%) (Auto) 1 1 0-10 % Basophils (%) (Auto) 0 0 0-10 % Neutrophils # (Auto) 10.9 H 8.0 H 1.8-7.8 X 10^3 Lymphocytes # (Auto) 1.7 1.8 1.0-4.0 X 10^3 Monocytes # (Auto) 1.2 H 1.1 H 0.0-1.0 X 10^3 Eosinophils # (Auto) 0.1 0.1 0.0-0.3 10^3/uL Basophils # (Auto) 0.0 0.0 0.0-0.1 10^3/uL Sodium Level 134 L 137 135-145 MMOL/L Potassium Level 4.1 3.9 3.6-5.0 MMOL/L Chloride Level 103 105 98-107 MMOL/L Carbon Dioxide Level 21 22 21-32 MMOL/L Anion Gap 10 10 5-14 MMOL/L Blood Urea Nitrogen 19 H 19 H 7-18 MG/DL Creatinine 1.29 1.23 0.60-1.30 MG/DL Estimat Glomerular Filtration Rate 41 43 BUN/Creatinine Ratio 15 15 Glucose Level 214 H 200 H 70-105 MG/DL Lactic Acid Level 1.42 0.50-2.00 MMOL/L Calcium Level 8.9 8.4 L 8.5-10.1 MG/DL Total Bilirubin 0.9 0.4 0.1-1.0 MG/DL Aspartate Amino Transf (AST/SGOT) 16 14 5-34 U/L Alanine Aminotransferase (ALT/SGPT) 21 19 0-55 U/L Alkaline Phosphatase 110 97 40-136 U/L Total Protein 7.5 6.7 6.4-8.2 GM/DL Albumin 3.5 3.2 3.2-4.5 GM/DL Urine Color YELLOW Urine Clarity CLEAR Urine pH 5 5-9 Urine Specific [place] 1.020 1.016-1.022 Urine Protein 2+ H NEGATIVE Urine Glucose (UA) 3+ H NEGATIVE Urine Ketones NEGATIVE NEGATIVE Urine Nitrite POSITIVE H NEGATIVE Urine Bilirubin NEGATIVE NEGATIVE Urine Urobilinogen NORMAL NORMAL MG/DL Urine Leukocyte Esterase NEGATIVE NEGATIVE Urine RBC (Auto) 1+ H NEGATIVE Urine RBC NONE /HPF Urine WBC NONE /HPF Urine Squamous Epithelial Cells RARE /HPF Urine Crystals NONE /LPF Urine Bacteria NEGATIVE /HPF Urine Casts NONE /LPF Urine Mucus NEGATIVE /LPF Urine Culture Indicated YES Glucometer 199 H 70-110 MG/DL Test 10/13/17 11:33 Range/Units Glucometer 242 H 70-110 MG/DL Physical Exam-(CHC) Physical Exam Vital Signs VS - Last 72 Hours, by Label 10/12/17 10/13/17 10/13/17 10/13/17 23:39 00:48 01:16 01:20 Temp 98.8 97.8 98.5 Pulse 94 97 87 Resp 18 B/P (MAP) 129/60 (83) 119/55 (76) Pulse Ox 94 96 92 92 O2 Delivery Room Air Room Air Room Air Room Air 10/13/17 10/13/17 10/13/17 10/13/17 03:58 08:00 09:00 12:00 Temp 97.9 98.5 98.5 Pulse 84 111 111 Resp 18 B/P (MAP) 130/77 (94) 157/87 (110) 157/87 (110) Pulse Ox 91 90 O2 Delivery Room Air Room Air Room Air Room Air Capillary Refill : Less Than 3 SecondsLess Than 3 Seconds General Appearance: WD/WN, no apparent distress Respiratory: lungs clear, normal breath sounds, no respiratory distress Cardiovascular: regular rate, rhythm, no murmur Gastrointestinal: normal bowel sounds, non tender, soft Extremities: other (right lower leg with erythema and edema, warm and tender to touch, left lower leg with erythema more chronic appearing in nature and non- tender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: alert, normal mood/affect Clinical Quality Measures DVT/VTE Risk/Contraindication: Risk Factor Score Per Nursin RFS Level Per Nursing on Admit: 4+=Very High Assessment/Plan Assessment/Plan (1) Cellulitis of leg without foot, right Status: Acute Assessment & Plan: With sepsis on admission- febrile and leukocytosis, WBC improved this am and no fever since admission. No signs of severe sepsis Started on ceftriaxone and vancomycin, monitor for continued improvement (2) Urinary tract infection Status: Acute Assessment & Plan: On ceftriaxone, awaiting culture Qualifiers: Qualified Codes: N30.00 - Acute cystitis without hematuria (3) IDDM (insulin dependent diabetes mellitus) Status: Chronic Assessment & Plan: Resume home medications, diabetic diet, sliding scale insulin (4) At risk for deep venous thrombosis Status: Acute Assessment & Plan: Enoxaparin EUSEBIO POTTER MD Oct 13, 2017 1:54 pm
[2017-10-13] MEDS ORDERED: MILK OF MAGNESIA 400 MG/5 ML 30 ML UDC PO PRN (14:00)
[2017-10-13] MEDS ORDERED: BISACODYL 10 MG SUPP (DULCOLAX) RC PRN (14:00)
[2017-10-13] MEDS ORDERED: HYDROcodone/APAP 5 MG/325 MG (LORTAB) TAB PO PRN (14:30)
[2017-10-13 15:30] VITALS: BP 182/79
[2017-10-13] MEDS: BETHANECHOL 10 MG (URECHOLINE) TAB PO SCH (17:03)
[2017-10-13] MEDS: RT-ADVAIR HFA 115/21 MCG PER PUFF IH SCH (19:57)
[2017-10-13 20:53] VITALS: BP 158/70
[2017-10-13] MEDS ORDERED: ASPIRIN 81 MG CHEW (CHILDREN'S ASA) PO SCH (21:00)
[2017-10-13] MEDS ORDERED: MELATONIN 3 MG TABLET PO SCH (21:00)
[2017-10-13] MEDS ORDERED: ATORVASTATIN 20 MG (LIPITOR) TABLET PO SCH (21:00)
[2017-10-13] MEDS: FAMOTIDINE 20 MG (PEPCID) TABLET PO SCH (21:19)
[2017-10-13] MEDS: ZINC OXIDE 20% OINT 30 GM TUBE TP SCH (21:20)
[2017-10-13] MEDS: inSUlin DETERMIR 1 UNIT/0.01 ML (LEVEMIR) CHARGE PER UNIT SQ SCH (21:21)
[2017-10-14 00:20] VITALS: BP 128/62
[2017-10-14] MEDS ORDERED: VANCOMYCIN 1250 MG/NS 250 ML IVPB IV SCH ×2 (01:45)
[2017-10-14] MEDS: cefTRIAXone 1,000 MG/NS 50 ML IVPB IV SCH ×2 (02:13)
[2017-10-14 03:50] VITALS: BP 144/82
[2017-10-14] MEDS: inSUlin (REGULAR) HUMAN 1 UNIT/0.01 ML (CHARGE PER UNIT) SC SCH ×2 (06:14→11:02)
[2017-10-14] MEDS: BETHANECHOL 10 MG (URECHOLINE) TAB PO SCH (06:18)
[2017-10-14 06:21] LABS: HEMOGLOBIN 10.3 G/DL (11.5-16.0); RED BLOOD COUNT 4.01 10^6/uL (4.35-5.85); RED CELL DISTRIBUTION WIDTH 18.3 % (10.0-14.5); WHITE BLOOD COUNT 7.8 10^3/uL (4.3-11.0)
[2017-10-14] MEDS: CATHETER FLUSH 10 ML SYR IV SCH ×2 (06:22→13:15)
[2017-10-14 06:52] LABS: CALCIUM 8.8 MG/DL (8.5-10.1); CREATININE SERUM 1.05 MG/DL (0.60-1.30); POTASSIUM 3.8 MMOL/L (3.6-5.0)
[2017-10-14] MEDS ORDERED: FERROUS SULF 325 MG (IRON) TAB PO SCH (07:00)
[2017-10-14] MEDS: RT-ADVAIR HFA 115/21 MCG PER PUFF IH SCH (08:19)
[2017-10-14 08:39] VITALS: BP 148/65
[2017-10-14] MEDS ORDERED: meTOprolol SUCCINATE 100 MG (TOPROL XL) TAB PO SCH (09:00)
[2017-10-14] MEDS ORDERED: FLUTICASONE NASAL SPRAY (FLONASE) 16 GM BTL NS SCH (09:00)
[2017-10-14] MEDS ORDERED: amLODIPine 5 MG (NORVASC) TAB PO SCH (09:00)
[2017-10-14] MEDS ORDERED: CLOPIDOGREL 75 MG (PLAVIX) TABLET PO SCH (09:00)
[2017-10-14] MEDS ORDERED: NON-FORMULARY MEDICATION 1 EA EA (Liraglutide (Victoza 2-Pak) 1.8 MG) SQ SCH (09:00)
[2017-10-14] MEDS ORDERED: LINAGLIPTIN (TRADJENTA) 5 MG TABLET PO SCH (09:00)
[2017-10-14] MEDS: inSUlin DETERMIR 1 UNIT/0.01 ML (LEVEMIR) CHARGE PER UNIT SQ SCH (10:02)
[2017-10-14] MEDS: FAMOTIDINE 20 MG (PEPCID) TABLET PO SCH (10:02)
[2017-10-14] MEDS: ZINC OXIDE 20% OINT 30 GM TUBE TP SCH (10:57)
[2017-10-14] MEDS ORDERED: TROUGH ORDER-PHARMACY XX NR (11:00)
[2017-10-14] MEDS: ENOXAPARIN 40 MG/0.4 ML (LOVENOX) SYR SC SCH (11:02)
[2017-10-14] MEDS ORDERED: CEPH500T PO (11:13)
--- NOTE | 2017-10-14 11:15 | Discharge Instructions ---
Discharge [facility], [facility] Discharge Medications New, Converted or Re-Newed RX: Transmitted to Pharmacy New Medications: Cephalexin (Cephalexin) 500 Mg Tablet 500 MG PO BID for 10 Days, #20 TAB 0 Refills Continued Medications: Acetaminophen (Acetaminophen) 500 Mg Tablet 1000 MG PO Q6H PRN for MILD PAIN/FEVER, TAB Amino Acids/Protein Hydrolys (Pro-Stat Sugar Free Liquid) 887 Ml Liquid 30 ML PO BID, EA Amlodipine Besylate (Amlodipine Besylate) 5 Mg Tablet 5 MG PO DAILY, TAB HOLD IF SYSTOLIC <110 Aspirin (Aspirin) 81 Mg Tab.chew 81 MG PO HS, TAB GIVE 30 MINUTES PRIOR TO ADMINISTRATION OF ENDUR-ACIN (NIASPAN) ER 500MG Atorvastatin Calcium (Atorvastatin Calcium) 20 Mg Tablet 20 MG PO HS, TAB B Complex with Vitamin C (Super B Complex-Vitamin C) 1 Each Tablet 1 TAB PO DAILY, TAB Bethanechol Chloride (Bethanechol Chloride) 10 Mg Tablet 10 MG PO BID, TAB Bisacodyl (Bisacodyl) 10 Mg Supp.rect 10 MG RC DAILY PRN for CONSTIPATION-4TH LINE, SUPP.RECT Budesonide/Formoterol Fumarate (Symbicort 160-4.5 Mcg Inhaler) 10.2 Gm Hfa.aer.ad 2 PUFF IH BID, INHALER Cholecalciferol (Vitamin D) 5,000 Unit Capsule 5000 UNIT PO HS, CAP Cinnamon Bark (Cinnamon) 500 Mg Capsule 1000 MG PO DAILY, CAP TAKES 2 (500 MG) CAPSULES Citalopram Hydrobromide (Citalopram HBr) 10 Mg Tablet 10 MG PO DAILY, TAB Clopidogrel Bisulfate (Clopidogrel) 75 Mg Tablet 75 MG PO DAILY, TAB Cranberry Extract (Cranberry) 500 Mg Tablet 1000 MG PO DAILY, TAB Ferrous Sulfate (Iron) 325 Mg Tablet 325 MG PO DAILY, TAB Fluticasone Propionate (Fluticasone Propionate) 16 Gm [place].susp 2 SPRAYS NS DAILY, EA Gluc Angulo/Chondro Angulo A/Vit C/Mn (Glucosamine Chondroitin Tab) 1 Each Tablet 2 TAB PO DAILY, TAB Hydrocodone/Acetaminophen ([place] 5-325 Tablet) 1 Each Tablet 1 TAB PO Q6H PRN for PAIN-MODERATE, TAB Hydrocortisone Acetate (Hydrocortisone Acetate) 28.4 Gm Cream..g. TP Q8H PRN for GAULDING/REDNESS, TUBE APPLY 1% CREAM TO BUTTOCK Hydrocortisone Acetate (Hydrocortisone Acetate) 28.4 Gm Cream..g. TP DAILY, TUBE APPLY 1% CREAM TO RASH TO BUTTOCKS FOR RASH/ITCHING Hydroxyzine HCl (Hydroxyzine HCl) 25 Mg Tablet 25 MG PO Q8H PRN for ITCHING, TAB Insulin Aspart (Novolog Flexpen) 300 Units/3 Ml Solution SQ ACHS for SLIDING SCALE, EA 60-150 0 UNITS 151-200 4 UNITS 201-250 6 UNITS 251-300 8 UNITS 301-350 10 UNITS 351-400 12 UNITS ABOVE 400 CALL PHYSICIAN Insulin Detemir (Levemir Flextouch) 100 Unit/1 Ml Insuln.pen 40 UNIT SQ BID, EA Liraglutide (Victoza 2-Checo) 0.6 Mg/0.1 Ml Pen.injctr 1.8 MG SQ DAILY, EA Magnesium Hydroxide (Milk of Magnesia) 400 Mg/5 Ml Oral.susp 30 ML PO DAILY PRN for CONSTIPATION-7TH LINE, ML Melatonin (Melatonin) 3 Mg Tablet 3 MG PO HS, TAB Menthol/Dimeth/Aloe Vera/Vit E (Gold Goyal Body Lotion) 396 Gm Lotion TP HS, ML APPLY TO LEFT LOWER LEG Metoprolol Succinate (Metoprolol Succinate) 100 Mg Tab.er.24h 100 MG PO DAILY, TAB HOLD FOR SYSTOLIC BP <100 AND HEART RATE <60 Multivits W-Fe,Other Min/Lut (Essential Balance Tablet) 1 Each Tablet 1 TAB PO TID, TAB Niacin (Endur-Acin) 500 Mg Tablet.er 500 MG PO HS, TAB [place]-3 Fatty Acids/Fish Oil (Fish Oil 1,200 mg Softgel) 1 Each Capsule 1200 MG PO DAILY, CAP Petrolatum,White (Vaseline White Petroleum) 5 Gm Oint.pack TP BID, TUBE Apply to buttocks topically every shift for skin condition Ranitidine HCl (Acid Dog Sitter (RANITIDINE)) 150 Mg Tablet 150 MG PO BID, TAB Saxagliptin HCl (Onglyza) 2.5 Mg Tablet 2.5 MG PO DAILY, TAB Sodium Chloride ([place]) 104 Ml [place] 2 SPRAYS NS Q4H PRN for DRY NOSE, SPRAY Valerian Root (Valerian Root) 500 Mg Capsule 530 MG PO DAILY PRN for ANXIETY, CAP Zinc Oxide (Zinc Oxide) 56.7 Gm Oint...g. TP BID, TUBE APPLY TO BUTTOCK Zinc Oxide (Zinc Oxide) 56.7 Gm Oint...g. TP Q1H PRN for GAULDING/REDNESS, TUBE APPLY TO BUTTOCK [Blood Sugar 360] () 1 CAP PO UD PRN for BLOOD SUGAR MAINTENANCE, CAP [Comfortone Cap] () 3 CAP PO HS [digize oil] () TOP UD PRN for DIGESTIVE DIFFICULTIES, EA MAY BE USED TOPICALLY OR DABBED INSIDE MOUTH ON CHEEK, KEEP AT BEDSIDE AND SELF ADMINISTER FOR DIGESTIVE DIFFICULTIES. [Goodsense Hemorrhoid] () RC Q12H PRN for BLEEDING BM [Prenalone Cream] () TOP Q12H PRN for DRY SKIN Patient Instructions Goal/Follow Up Appt: Judy Mcguire APRN will see you at [facility] on Wednesday. Return to The Hospital For: Fever, worsening pain and swelling or redness in leg Activity & Diet Discharge Diet: ADA Diet Activity as Tolerated: Yes Orders-Post D/C & Referrals Pneu Vac Indicated: Yes Copy Copies To 1: ALESHIA Koch BETHANY N MD Oct 14, 2017 11:15 am
--- NOTE | 2017-10-14 11:16 | Discharge Summary ---
Diagnosis/Chief Complaint Date of Admission Oct 13, 2017 at 12:30 am Date of Discharge Oct 14, 2017 Admission Diagnosis Admission Diagnosis (1) Cellulitis of leg without foot, right (2) Urinary tract infection (3) IDDM (insulin dependent diabetes mellitus) Discharge Diagnosis (1) Cellulitis of leg without foot, right Status: Acute Assessment & Plan: With sepsis on admission- febrile and leukocytosis, WBC improved this am and no fever since admission. No signs of severe sepsis Started on ceftriaxone and vancomycin, monitor for continued improvement 2/ much improved, resolution of leukocytosis, given UTI will treat with cephalexin, but may need addition of doxycycline or clindamycin if worsening to cover for MRSA (could not use Bactrim to cover both due to allergy) (2) Urinary tract infection Status: Acute Assessment & Plan: On ceftriaxone, awaiting culture Qualifiers: Qualified Codes: N30.00 - Acute cystitis without hematuria 2/ E coli resistant to amp and cipro, sensitive to amp/sulb (3) IDDM (insulin dependent diabetes mellitus) Status: Chronic Assessment & Plan: Resume home medications, diabetic diet, sliding scale insulin Chief Complaint/HPI Chief Complaint/HPI 67 yo female resident at [facility] brought to ER with worsening redness, blistering, pain in her right lower leg and fever. Found to have leukocytosis in addition to fever documented at nursing facility. She denies any other symptoms of illness and did not feel poorly when she had the fever. She does continue to have marked tenderness in her right leg. She has had cellulitis in her left leg previously. Discharge Summary-Simple/Stand Consultations Discharge Physical Examination Allergies: Coded Allergies: sulfamethoxazole (Verified Allergy, Unknown, 10/13/17) trimethoprim (Verified Allergy, Unknown, 10/13/17) Vitals & I&Os Vital Sign - Last 12Hours Date Time Temp Pulse Resp B/P (MAP) Pulse Ox O2 Delivery O2 Flow Rate FiO2 10/14/17 09:00 Room Air 10/14/17 08:39 97.9 89 22 148/65 (92) 95 Intake and Output 10/14/17 00:00 Intake Total 1645 ml Output Total 600 ml Balance 1045 ml General Appearance: Alert, No Acute Distress Respiratory: Clear to Auscultation, Normal Air Movement Cardiovascular: Regular Rate, No Murmurs, Other (pedal pulse 2+ bilaterally) Skin: Other (right lower leg with slight erythema and decreased edema from previous day) Psych/Mental Status: Mood NL Hospital Course See final discharge diagnosis. Labs Laboratory Tests Test 10/13/17 00:10 10/13/17 02:00 10/13/17 04:59 10/13/17 05:14 Range/Units White Blood Count 14.0 H 11.0 4.3-11.0 10^3/uL Red Blood Count 4.37 3.96 L 4.35-5.85 10^6/uL Hemoglobin 11.3 L 10.0 L 11.5-16.0 G/DL Hematocrit 35 32 L 35-52 % Mean Corpuscular Volume 79 L 80 80-99 FL Mean Corpuscular Hemoglobin 26 25 25-34 PG Mean Corpuscular Hemoglobin Concent 33 32 32-36 G/DL Red Cell Distribution Width 18.2 H 18.2 H 10.0-14.5 % Platelet Count 208 177 130-400 10^3/uL Mean Platelet Volume 9.4 9.9 7.4-10.4 FL Neutrophils (%) (Auto) 78 H 72 42-75 % Lymphocytes (%) (Auto) 12 16 12-44 % Monocytes (%) (Auto) 9 10 0-12 % Eosinophils (%) (Auto) 1 1 0-10 % Basophils (%) (Auto) 0 0 0-10 % Neutrophils # (Auto) 10.9 H 8.0 H 1.8-7.8 X 10^3 Lymphocytes # (Auto) 1.7 1.8 1.0-4.0 X 10^3 Monocytes # (Auto) 1.2 H 1.1 H 0.0-1.0 X 10^3 Eosinophils # (Auto) 0.1 0.1 0.0-0.3 10^3/uL Basophils # (Auto) 0.0 0.0 0.0-0.1 10^3/uL Sodium Level 134 L 137 135-145 MMOL/L Potassium Level 4.1 3.9 3.6-5.0 MMOL/L Chloride Level 103 105 98-107 MMOL/L Carbon Dioxide Level 21 22 21-32 MMOL/L Anion Gap 10 10 5-14 MMOL/L Blood Urea Nitrogen 19 H 19 H 7-18 MG/DL Creatinine 1.29 1.23 0.60-1.30 MG/DL Estimat Glomerular Filtration Rate 41 43 BUN/Creatinine Ratio 15 15 Glucose Level 214 H 200 H 70-105 MG/DL Lactic Acid Level 1.42 0.50-2.00 MMOL/L Calcium Level 8.9 8.4 L 8.5-10.1 MG/DL Total Bilirubin 0.9 0.4 0.1-1.0 MG/DL Aspartate Amino Transf (AST/SGOT) 16 14 5-34 U/L Alanine Aminotransferase (ALT/SGPT) 21 19 0-55 U/L Alkaline Phosphatase 110 97 40-136 U/L Total Protein 7.5 6.7 6.4-8.2 GM/DL Albumin 3.5 3.2 3.2-4.5 GM/DL Urine Color YELLOW Urine Clarity CLEAR Urine pH 5 5-9 Urine Specific [place] 1.020 1.016-1.022 Urine Protein 2+ H NEGATIVE Urine Glucose (UA) 3+ H NEGATIVE Urine Ketones NEGATIVE NEGATIVE Urine Nitrite POSITIVE H NEGATIVE Urine Bilirubin NEGATIVE NEGATIVE Urine Urobilinogen NORMAL NORMAL MG/DL Urine Leukocyte Esterase NEGATIVE NEGATIVE Urine RBC (Auto) 1+ H NEGATIVE Urine RBC NONE /HPF Urine WBC NONE /HPF Urine Squamous Epithelial Cells RARE /HPF Urine Crystals NONE /LPF Urine Bacteria NEGATIVE /HPF Urine Casts NONE /LPF Urine Mucus NEGATIVE /LPF Urine Culture Indicated YES Glucometer 199 H 70-110 MG/DL Test 10/13/17 11:33 10/13/17 16:58 10/13/17 20:59 10/14/17 05:35 Range/Units Glucometer 242 H 192 H 246 H 187 H 70-110 MG/DL Test 10/14/17 05:45 10/14/17 10:44 10/14/17 11:14 Range/Units White Blood Count 7.8 4.3-11.0 10^3/uL Red Blood Count 4.01 L 4.35-5.85 10^6/uL Hemoglobin 10.3 L 11.5-16.0 G/DL Hematocrit 32 L 35-52 % Mean Corpuscular Volume 80 80-99 FL Mean Corpuscular Hemoglobin 26 25-34 PG Mean Corpuscular Hemoglobin Concent 32 32-36 G/DL Red Cell Distribution Width 18.3 H 10.0-14.5 % Platelet Count 178 130-400 10^3/uL Mean Platelet Volume 10.0 7.4-10.4 FL Sodium Level 137 135-145 MMOL/L Potassium Level 3.8 3.6-5.0 MMOL/L Chloride Level 106 98-107 MMOL/L Carbon Dioxide Level 20 L 21-32 MMOL/L Anion Gap 11 5-14 MMOL/L Blood Urea Nitrogen 12 7-18 MG/DL Creatinine 1.05 0.60-1.30 MG/DL Estimat Glomerular Filtration Rate 52 BUN/Creatinine Ratio 11 Glucose Level 170 H 70-105 MG/DL Calcium Level 8.8 8.5-10.1 MG/DL Glucometer 302 H 70-110 MG/DL Vancomycin Level Trough 9.2 L 10.0-20.0 UG/ML Discharge Instructions to patient/family Please see electronic discharge instructions given to patient. Discharge Medications Reviewed and agree with Discharge Medication list on patient's Discharge Instruction sheet Clinical Quality Measures DVT/VTE Risk/Contraindication: Risk Factor Score Per Nursin RFS Level Per Nursing on Admit: 4+=Very High Copy Copies To 1: ALESHIA Koch BETHANY N MD Oct 14, 2017 11:16 am
[2017-10-14 12:00] VITALS: BP 140/63
[2017-10-14] MEDS ORDERED: VANCOMYCIN INJECTION 1,000 MG in NS (IVPB) 250 ML IV SCH (12:30)
== END 2017-10-14 14:35 | DRG 872 ==
LOC: EDUNIT# 23:28 → ER 23:30 → 4TH 10-13 00:30
PROVIDERS: ADMIT Family Medicine; ATTEND Family Medicine
DX: A41.9 Sepsis, unspecified organism (principal); L03.115 Cellulitis of right lower limb; N30.00 Acute cystitis without hematuria; B96.20 Unspecified Escherichia coli [E. coli] as the cause of diseases classified elsewhere; I69.354 Hemiplegia and hemiparesis following cerebral infarction affecting left non-dominant side; I69.391 Dysphagia following cerebral infarction; Z68.41 Body mass index [BMI] 40.0-44.9, adult; E11.42 Type 2 diabetes mellitus with diabetic polyneuropathy; J44.9 Chronic obstructive pulmonary disease, unspecified; I25.10 Atherosclerotic heart disease of native coronary artery without angina pectoris; G47.30 Sleep apnea, unspecified; E66.01 Morbid (severe) obesity due to excess calories; E78.00 Pure hypercholesterolemia, unspecified; K21.9 Gastro-esophageal reflux disease without esophagitis; N32.81 Overactive bladder; F41.9 Anxiety disorder, unspecified; F32.9 Major depressive disorder, single episode, unspecified; R26.89 Other abnormalities of gait and mobility; I87.8 Other specified disorders of veins; J30.2 Other seasonal allergic rhinitis; G89.29 Other chronic pain; R53.1 Weakness; K59.09 Other constipation; K64.9 Unspecified hemorrhoids; Z99.3 Dependence on wheelchair; Z79.4 Long term (current) use of insulin; Z87.891 Personal history of nicotine dependence; Z96.651 Presence of right artificial knee joint; Z87.11 Personal history of peptic ulcer disease; Z87.01 Personal history of pneumonia (recurrent)
CPT/HCPCS: 36415; 80048; 80053; 80202; 81000; 82962; 83605; 85025; 85027; 87040; 87077; 87088; 87186; 94640; 94760; 96365

== ENCOUNTER 2018-09-14 05:41 | Outpatient (CLI) | payer MEDICARE, MEDICAID ==
[~2018-09-14] VITALS: Ht 165.1 cm; Wt 111.1 kg
[~2018-09-14 05:41] MED LIST changes: +AMIN887L16 PO; -AMLO5TAB2 PO; +AMLO5TAB7 PO; +CEPH500T PO; +FERR-84 PO; +FLUT16SP22 NS; +GLUC1TAB20 PO; +HYDR-4226 PO; +HYDR28.428 TP; +MELA3TAB PO; +MENT396L TP; +RANI150T90 PO; +VITA1TAB33 PO; +ZINC56.7 TP; +[UNRECOGNIZED DRUG - OTHER] PO; +[UNRECOGNIZED DRUG - OTHER] RC; +[UNRECOGNIZED DRUG - OTHER] TOP
[2018-09-15] MEDS ORDERED: DOCU-143 PO (09:28)
[2018-09-15] MEDS ORDERED: MICO14CR TP (09:28)
[2018-09-15] MEDS ORDERED: [UNRECOGNIZED DRUG - CODE] PO (09:28)
[2018-09-15] MEDS ORDERED: GABA-488 PO (09:28)
[2018-09-15] MEDS ORDERED: DULA1.5P2 SQ (09:28)
[2018-09-15] MEDS ORDERED: OMEG1CAP57 PO (09:28)
[2018-09-15] MEDS ORDERED: INSU100V16 SQ (09:28)
[2018-09-15] MEDS ORDERED: MAGN30OR PO (09:28)
== END 2018-09-14 09:37 | disposition home or self-care (01) ==
LOC: PREOP 05:41
PROVIDERS: ATTEND Surgery
DX: Z01.818 Encounter for other preprocedural examination (principal)

== ENCOUNTER 2018-10-11 07:07 | Day surgery (SDC) | payer MEDICARE, MEDICAID ==
--- OUTSIDE RECORDS SUMMARY | 2018-09-20 10:57 | XMS REPORT ---
Author Author JOSH THAYER Organization [facility] Address [address] [place] [address] Care Team Providers Care Crossing Gateman Name Role Phone JOSH THAYER Unavailable PROBLEMS Type Condition ICD9-CM Code [id number] Code Onset Dates Condition Status SNOMED Code Problem Type 2 diabetes mellitus with unspecified complications E11.8 Active 94745093 Problem penitentiary current use of insulin Z79.4 Active 583093026 Problem Type 2 diabetes mellitus with hyperglycemia E11.65 Active 44536435 Problem Gastroesophageal reflux disease without esophagitis K21.9 Active 117965006 Problem Lymphedema of left lower extremity I89.0 Active 55462832646969700 Problem Left hemiplegia G81.94 Active 136603778 Problem Cellulitis of left lower extremity L03.116 Active 890174067 Problem Stage III chronic kidney disease N18.3 Active 602177485 ALLERGIES No Information ENCOUNTERS Encounter Location Date Diagnosis [place] [address] [place] [address] [phone]- [phone] Jul, [place] [address] [place] [address] [phone]- [phone] Jul, [facility] [address] [place] [address] [phone]- 2630 Jul, [facility] [address] [place] [id number] Jul, Welcome to Medicare preventive visit Z00.00 ; Type 2 diabetes mellitus with unspecified complications E11.8 ; Stage III chronic kidney disease N18.3 ; Left hemiplegia G81.94 and Gastroesophageal reflux disease without esophagitis K21.9 [facility] [address] [place] [address] 36114- [phone] Jun, Type 2 diabetes mellitus with unspecified complications E11.8 [facility] [address] [address] 16 Jun, 2018 Type 2 diabetes mellitus with hyperglycemia E11.65 and penitentiary current use of insulin Z79.4 [place] [address] [place] [id number] [place] [address] [phone]- [phone] Jun, Type 2 diabetes mellitus with hyperglycemia E11.65 and 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 [facility] [address] [place] [id number] Jun, Type 2 diabetes mellitus with unspecified complications E11.8 and History of cellulitis Z87.2 [facility] [address] [place] [id number] Mar, Lymphedema of left lower extremity I89.0 and Left hemiplegia G81.94 [place] [address] [place] [id number] [place] [address] 96083- 0916 Mar, [place] [address] [place] [id number] [place] [address] 28024- 3276 Feb, [place] [address] [place] [id number] [place] [address] [phone]- [phone] Feb, [place] [address] [place] [id number] [place] [address] 86874- [phone] Feb, [facility] [address] [place] [id number] Feb, Acute non-recurrent maxillary sinusitis J01.00 and Gastroesophageal reflux disease without esophagitis K21.9 [place] [address] [place] [id number] [place] [address] [phone] Feb, [place] [address] [place] [id number] [place] [address] [phone]- [phone] Feb, [facility] [address] [place] [id number] January, Cellulitis of right lower limb L03.115 and Cellulitis of left lower leg L03.116 [place] [address] [place] [id number] [place] [address] [phone]- [phone] January, [place] [address] [place] [address] 2546 January, [facility] [address] [place] [id number] January, Acute superficial gastritis without hemorrhage K29.00 [facility] [address] [place] [id number] [place] [address] 92457- 3326 Dec, [facility] [address] [place] [id number] Nov, Acute superficial gastritis without hemorrhage K29.00 and Acute left-sided low back pain without sciatica M54.5 [facility] [address] [place] [id number] Nov, Chronic pruritus L29.9 ; Scratching T14.8XXA and Left hemiplegia G81.94 [facility] [address] [place] [id number] [place] [address] 16149- 0186 Oct, Scratching T14.8XXA [facility] [address] [place] [id number] [place] [address] 86697- 6086 Oct, Scratching T14.8XXA [facility] [address] [place] [id number] [place] [phone] Oct, [facility] [address] [place] [id number] [place] [address] [phone] Sep, [facility] [address] [place] [address] [phone]- [phone] Sep, [facility] [address] [place] [id number] Sep, Cellulitis of left lower extremity L03.116 [facility] [address] [place] [address] 83944 2546 Sep, [facility] [address] [place] [id number] [place] [address] 30085- [phone] Sep, [facility] [address] [place] [id number] Aug, Cellulitis of left lower extremity L03.116 [facility] [address] [place] [id number] Aug, Cellulitis of left lower extremity L03.116 and Lymphedema of left lower extremity I89.0 [facility] [address] [id number] [id number] Aug, [facility] [address] [place] [address] [phone]- [phone] Aug, Cellulitis of left lower extremity L03.116 ; Wheezing R06.2 and Sinus congestion R09.81 [facility] [address] [place] [id number] [place] [phone] Aug, [facility] [address] [place] [id number] [place] [address] [phone]- [phone] Aug, [place] [address] [place] [address] 41715- [phone] Aug, [place] [address] [place] [address] [phone]- [phone] Aug, [employer] [address] [place] [id number] Aug, Establishing care with new doctor, encounter for Z76.89 ; Type 2 diabetes mellitus with unspecified complications E11.8 ; penitentiary current use of insulin Z79.4 ; Left hemiplegia G81.94 ; Status post CVA Z86.73 ; Stage III chronic kidney disease N18.3 and Lymphedema of left lower extremity I89.0 IMMUNIZATIONS No Known Immunizations SOCIAL HISTORY Never Assessed REASON FOR VISIT abdominal pain PLAN OF CARE Activity Details Follow Up prn Reason: VITAL SIGNS MEDICATIONS Medication Instructions Dosage Frequency Start Date End Date Duration Status Ferrous Sulfate 325 (65 Fe) MG Orally Once a day 1 tablet 24h Active Plavix 75 MG Orally Once a day 1 tablet 24h Active Tylenol Extra Strength 500 MG Orally every 6 hrs 2 tablets as needed 6h Active Norvasc 5 MG Orally Once a day 1 tablet 24h Active Cholecalciferol 5000 UNIT Orally Once a day 1 capsule 24h Active Celexa 10 MG Orally Once a day 1 tablet 24h Active Urecholine 10 mg Orally 2 times a day 1 tablet after meals 12h Active HydrOXYzine HCl 25 MG Orally every 8 hrs 1 tablet as needed 8h Active GoodSense Hemorrhoidal 0.25-14-74.9 % Active Mobic 7.5 MG Orally twice a day 1 tablet 12h Nov, 6 Dec, 2017 10 days Active Essential Balance - Orally 3 times a day 1 tablet 8h Active Hydrocortisone 1 % Rectal Once a day 1 application to affected area 24h Active Fluticasone Propionate 50 MCG/ACT Nasally Once a day 2 sprays in each nostril 24h Active Cwobunicqqi-Llxdklifa-Oqh C-Mn - Active Cinnamon 500 mg Orally Once a day 2 tablets 24h Active Symbicort 160-4.5 MCG/ACT Inhalation Twice a day 2 puffs 12h Active Dulcolax 10 MG Rectal Once a day 1 suppository as needed 24h Active Lipitor 20 MG Orally Once a day 1 tablet 24h Active Magnesium Hydroxide 400 MG/5ML Orally daily 30 ml as needed 24h Active Levemir 100 UNIT/ML Subcutaneous 2 times a day 40 units 12h Active Hydrocodone-Acetaminophen 5-325 MG Orally every 6 hrs 1 tablet as needed 6h Aug, Active Omeprazole 20 mg Orally twice a day 1 capsule 12h Nov, 30 day(s ) Active Onglyza 2.5 MG Orally Once a day 1 tablet 24h Active Cranberry 1000 MG Orally Once a day 1 tablet with meals 24h Active [place] 3 1200 MG Orally Once a day 1 capsule 24h Active Aspirin Adult Low Dose 81 MG Orally Once a day 1 tablet 24h Active Metoprolol Succinate ER 100 MG Orally Once a day 1 tablet 24h Active [place] Nasal Counselor 0.65 % Nasally every 2 hrs 2 sprays in each nostril as needed Active Victoza 18 MG/3ML Subcutaneous Once a day 1.8mg 24h Active Valerian 530 MG Orally Once a day 1 capsule before bedtime as needed 24h Active Melatonin 3 MG Orally Once a day 1 tablet at bedtime 24h Active Neurontin 300 MG Orally 2 times a day 1 capsule at bdtime for 7 days then 1 tab 12h Oct, Active Amino Acids-Protein Hydrolys - Orally 2 times a day 30ml 12h Active NovoLog 100 UNIT/ML Subcutaneous 4 times a day sliding scale 6h Active Gold Goyal Ultimate Healing - Active Super B Complex/Vitamin C - Orally Once a day 1 tablet 24h Active Desitin 13 % Externally every shift 1 application to affected area Active Blood Sugar 360 - Orally as needed 1 capsule Active Endur-Acin 500 MG Orally Once a day 1 tablet with food 24h Active RESULTS No Results PROCEDURES Procedure Date Ordered Result Body Site Minor complication (15 mins) December 07, 2017 INSTRUCTIONS MEDICATIONS ADMINISTERED No Known Medications MEDICAL (GENERAL) HISTORY Type Description Date Medical History CVA with Left hemiplegia 2011 Medical History Acute renal failure due to Bactrim. Not to take Bactrim again Surgical History Foot surgery Surgical History right knee surgery 2004 Surgical History nasal polyps 2014 Hospitalization History cellulitis-left leg 08/2017 Hospitalization History right leg cellulitis 10/13/17
--- OUTSIDE RECORDS SUMMARY | 2018-09-20 10:57 | XMS REPORT ---
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 Active 397874639 Problem Type 2 diabetes mellitus with hyperglycemia E11.65 Active 80014668 Problem Gastroesophageal reflux disease without esophagitis K21.9 Active 216477060 Problem Lymphedema of left lower extremity I89.0 Active 45870757536650197 Problem Left hemiplegia G81.94 Active 485459614 Problem Cellulitis of left lower extremity L03.116 Active 823370894 Problem Stage III chronic kidney disease N18.3 Active 856010752 ALLERGIES No Information ENCOUNTERS Encounter Location Date Diagnosis [place] [address] [place] [address] 10646- [phone] Jul, [facility] [address] [place] [address] 85113- [phone] Jul, [facility] [address] [place] [id number] [place] [address] 80634- 3043 Jul, [employer] [address] [place] [id number] Jul, Welcome to Medicare preventive visit Z00.00 ; Type 2 diabetes mellitus with unspecified complications E11.8 ; Stage III chronic kidney disease N18.3 ; Left hemiplegia G81.94 and Gastroesophageal reflux disease without esophagitis K21.9 [facility] [address] [place] [address] [phone]- [phone] Jun, Type 2 diabetes mellitus with unspecified complications E11.8 [facility] [address] [place] [id number] [place] [address] [phone]- 7576 16 Jun, 2018 Type 2 diabetes mellitus with hyperglycemia E11.65 and 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 [facility] [address] [place] [id number] [place] [address] 59363- 8836 16 Jun, 2018 Type 2 diabetes mellitus with hyperglycemia E11.65 and custodial current use of insulin Z79.4 [facility] [address] [place] [id number] Jun, Type 2 diabetes mellitus with unspecified complications E11.8 and History of cellulitis Z87.2 [facility] [address] [place] [id number] Mar, Lymphedema of left lower extremity I89.0 and Left hemiplegia G81.94 [place] [address] [place] [id number] [place] [address] [phone]- [phone] Mar, [place] [address] [place] [id number] [place] [address] [phone]- [phone] Feb, [place] [address] [place] [id number] [place] [address] [phone] Feb, [place] [address] [place] [id number] [place] [address] [phone]- [phone] Feb, [facility] [place] [id number] Feb, Acute non-recurrent maxillary sinusitis J01.00 and Gastroesophageal reflux disease without esophagitis K21.9 [place] [address] [place] [id number] [place] [address] 51444- 5116 Feb, [place] [address] [place] [id number] [place] [address] [phone]- [phone] Feb, [facility] [address] [place] [id number] January, Cellulitis of right lower limb L03.115 and Cellulitis of left lower leg L03.116 [place] [address] [place] [id number] [place] [address] 29359- 5716 January, [place] [address] [address] 2546 January, [facility] [address] [place] [id number] January, Acute superficial gastritis without hemorrhage K29.00 [facility] [address] [place] [id number] [place] [address] 19070 2546 Dec, [facility] [address] [place] [id number] Nov, Acute superficial gastritis without hemorrhage K29.00 and Acute left-sided low back pain without sciatica M54.5 [facility] [address] [place] [id number] Nov, Chronic pruritus L29.9 ; Scratching T14.8XXA and Left hemiplegia G81.94 [facility] [address] [place] [id number] [place] [address] 06906 2546 Oct, Scratching T14.8XXA [facility] [address] [place] [id number] [place] [address] 10630 2546 Oct, Scratching T14.8XXA [facility] [address] [place] [id number] [place] [address] [id number] Oct, [facility] [address] [place] [id number] [place] [address] [id number] Sep, [facility] [address] [place] [address] 15697 2546 Sep, [facility] [address] [place] [id number] Sep, Cellulitis of left lower extremity L03.116 [facility] [address] [place] [id number] [place] [address] 63439 2546 Sep, [facility] [address] [place] [id number] [place] [address] 64839 2546 Sep, [facility] [address] [place] [id number] Aug, Cellulitis of left lower extremity L03.116 [facility] [address] [place] [id number] Aug, Cellulitis of left lower extremity L03.116 and Lymphedema of left lower extremity I89.0 [facility] [address] [id number] [id number] Aug, [facility] [address] [place] [id number] [address] Aug, Cellulitis of left lower extremity L03.116 ; Wheezing R06.2 and Sinus congestion R09.81 [facility] [address] [id number] [id number] Aug, [facility] [address] [facility] [id number] [phone] [phone] Aug, [facility] [address] [place] [id number] [address] 6108 Aug, [facility] [address] [place] [id number] [phone] 8527 Aug, [facility] [address] [place] [id number] Aug, Establishing care with new doctor, encounter for Z76.89 ; Type 2 diabetes mellitus with unspecified complications E11.8 ; 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 VISIT IPPE/AWV Jul 14, 2018 INIT PREV PE LTD DUR 12 MOS MCR Jul 14, 2018 INSTRUCTIONS MEDICATIONS ADMINISTERED No Known Medications MEDICAL [...]
--- OUTSIDE RECORDS SUMMARY | 2018-09-20 10:57 | XMS REPORT ---
Author Author JOSH THAYER Organization [facility] Address [address] [place] [address] Care Team Providers Care Forest Ecologist Name Role Phone JOSH THAYER Unavailable PROBLEMS Type Condition ICD9-CM Code SFQ05-GN Code Onset Dates Condition Status SNOMED Code Problem Type 2 diabetes mellitus with unspecified complications E11.8 Active 72327412 Problem [facility] current use of insulin Z79.4 Active 221912644 Problem Type 2 diabetes mellitus with hyperglycemia E11.65 Active 59233429 Problem Gastroesophageal reflux disease without esophagitis K21.9 Active 322280727 Problem Lymphedema of left lower extremity I89.0 Active 89408781111296076 Problem Left hemiplegia G81.94 Active 354489146 Problem Cellulitis of left lower extremity L03.116 Active 346875173 Problem Stage III chronic kidney disease N18.3 Active 157859029 ALLERGIES No Information ENCOUNTERS Encounter Location Date Diagnosis [place] [id number] [place] [address] 98804- 3350 Jul, [place] [id number] [place] [address] 02247- 6846 Jul, [facility] [id number] [place] [address] 38798- 7040 Jul, [facility] [address] [place] [id number] Jul, Welcome to Medicare preventive visit Z00.00 ; Type 2 diabetes mellitus with unspecified complications E11.8 ; Stage III chronic kidney disease N18.3 ; Left hemiplegia G81.94 and Gastroesophageal reflux disease without esophagitis K21.9 [facility] [address] [place] [address] 95106- 3699 Jun, Type 2 diabetes mellitus with unspecified complications E11.8 [facility] [address] [address]- [address]76 16 Jun, 2018 Type 2 diabetes mellitus with hyperglycemia E11.65 and [facility] current use of insulin Z79.4 [place] [address] [place] [id number] [place] [address] 55989- 6966 Jun, Type 2 diabetes mellitus with hyperglycemia E11.65 and 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.4 [facility] [address] [place] [id number] Jun, Type 2 diabetes mellitus with unspecified complications E11.8 and History of cellulitis Z87.2 [facility] [address] [place] [id number] Mar, Lymphedema of left lower extremity I89.0 and Left hemiplegia G81.94 [place] [address] [place] [id number] [place] [address] 56266- 8396 Mar, [place] [address] [place] [address] [id number] [place] [address] 05075- 0766 Feb, [place] [address] [place] [address] [id number] [place] [address] 04822- 7641 Feb, [place] [address] [place] [address] [id number] [place] [address] 59062- 9773 Feb, [facility] [employer] [facility] [address] [place] [id number] Feb, Acute non-recurrent maxillary sinusitis J01.00 and Gastroesophageal reflux disease without esophagitis K21.9 [place] [address] [place] [id number] [place] [address] [phone] Feb, [place] [address] [place] [address] [id number] [place] [address] 22683- 2297 Feb, [facility] [address] [place] [id number] January, Cellulitis of right lower limb L03.115 and Cellulitis of left lower leg L03.116 [place] [address] [place] [id number] [place] [address] 36846- 0586 January, [place] [address] [place] [address] 2546 January, [facility] [address] [place] [id number] January, Acute superficial gastritis without hemorrhage K29.00 [facility] [id number] [place] [address] 77607- 2396 Dec, [facility] [address] [place] [id number] Nov, Acute superficial gastritis without hemorrhage K29.00 and Acute left-sided low back pain without sciatica M54.5 [facility] [address] [place] [id number] Nov, Chronic pruritus L29.9 ; Scratching T14.8XXA and Left hemiplegia G81.94 [facility] [id number] [place] [address] 71135- 2776 Oct, Scratching T14.8XXA [facility] [id number] [place] [address] 00332- 6446 Oct, Scratching T14.8XXA [facility] [id number] [place] [address] [phone] Oct, [facility] [id number] [place] [address] [phone] Sep, [facility] [address] [place] [address] 08535- 2036 Sep, [facility] [address] [place] [id number] Sep, Cellulitis of left lower extremity L03.116 [facility] [address] [place] [address] 74033 2546 Sep, [facility] [id number] [place] [address] 71009- 5216 Sep, [facility] [address] [place] [id number] Aug, Cellulitis of left lower extremity L03.116 [facility] [address] [place] [id number] Aug, Cellulitis of left lower extremity L03.116 and Lymphedema of left lower extremity I89.0 [facility] [address] [id number] [id number] Aug, [facility] [address] [id number] [address]- 3406 Aug, Cellulitis of left lower extremity L03.116 ; Wheezing R06.2 and Sinus congestion R09.81 [facility] [address] [id number] [id number] Aug, [facility] [id number] [id number] 5598 Aug, [facility] [address] [place] [address] [phone]- 3153 Aug, [facility] [address] [place] [id number] [id number]- 3541 Aug, [facility] [address] [place] [id number] Aug, Establishing care with new doctor, encounter for Z76.89 ; Type 2 diabetes mellitus with unspecified complications E11.8 ; 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
--- OUTSIDE RECORDS SUMMARY | 2018-09-20 10:58 | XMS REPORT ---
Author Author JOSH THAYER [facility] Address [address] [place] [address] Care Team Providers Care Nurse Practical Name Role Phone JOSH THAYER Unavailable PROBLEMS Type Condition ICD9-CM Code ROI61-DB Code Onset Dates Condition Status SNOMED Code Problem assisted current use of insulin Z79.4 Active 137131952 Problem Gastroesophageal reflux disease without esophagitis K21.9 Active 181896880 Problem Cellulitis of left lower extremity L03.116 Active 789963503 Problem Left hemiplegia G81.94 Active 749358141 Problem Type 2 diabetes mellitus with unspecified complications E11.8 Active 71972307 Problem Stage III chronic kidney disease N18.3 Active 676359586 Problem Lymphedema of left lower extremity I89.0 Active [id number] ALLERGIES No Information ENCOUNTERS Encounter Location Date Diagnosis [employer] [address] [place] [id number] Mar, Lymphedema of left lower extremity I89.0 and Left hemiplegia G81.94 [place] [address] [place] [id number] [place] [address] 63866- 7372 Mar, [place] [address] [place] [id number] [place] [address] 96568- 6678 Feb, [place] [address] [place] [id number] [place] [address] 46373- 2955 Feb, [place] [address] [place] [id number] [place] [address] 47572- 6595 Feb, [facility] [address] [place] [address] [id number] Feb, Acute non-recurrent maxillary sinusitis J01.00 and Gastroesophageal reflux disease without esophagitis K21.9 [facility] [place] [address] 65868- 1030 Feb, [facility] [place] [id number] [address] 2546 Feb, [facility] [address] [place] [id number] January, Cellulitis of right lower limb L03.115 and Cellulitis of left lower leg L03.116 [facility] [place] [address] [place] [address] 51996- 2546 January, [facility] [place] [address] [place] [id number] [place] [address] 24492- 2546 January, [facility] [address] [place] [id number] January, Acute superficial gastritis without hemorrhage K29.00 [place] [address] [place] [address] 07318 2546 Dec, [facility] [address] [place] [id number] Nov, Acute superficial gastritis without hemorrhage K29.00 and Acute left-sided low back pain without sciatica M54.5 [facility] [address] [place] [id number] Nov, Chronic pruritus L29.9 ; Scratching T14.8XXA and Left hemiplegia G81.94 [place] [address] [place] [address] 47488 2546 Oct, Scratching T14.8XXA [place] [address] [place] [address] 55756 2546 Oct, Scratching T14.8XXA [facility] [address] [place] [id number] [place] [address] [phone] Oct, [facility] [address] [place] [address] [id number] [place] [address] [id number] Sep, [facility] [place] [address] [place] [address] 95818- 2546 Sep, [facility] [address] [place] [id number] Sep, Cellulitis of left lower extremity L03.116 [facility] [place] [address], [place] [address]- 8056 Sep, [facility] [place] [address] [place] [id number] [place] [address] 06021- 5016 Sep, [facility] [address] [place] [id number] Aug, Cellulitis of left lower extremity L03.116 [employer] [facility] [place] [id number] Aug, Cellulitis of left lower extremity L03.116 and Lymphedema of left lower extremity I89.0 [place] [address] [place] [id number] [place] [address] [id number] Aug, [place] [address] [place] [id number] [place] [address] [phone]- 7536 Aug, Cellulitis of left lower extremity L03.116 ; Wheezing R06.2 and Sinus congestion R09.81 [facility] [address] [place] [id number] [place] [address] [id number] Aug, [place] [address] [place] [id number] [place] [address] 83001- 8562 Aug, [place] [address] [place] [id number] [place] [address] 75696- 6721 Aug, [place] [address] [place] [address] [phone]- 8997 Aug, [employer] [facility] [place] [id number] Aug, Establishing care with new doctor, encounter for Z76.89 ; Type 2 diabetes mellitus with unspecified complications E11.8 ; assisted current use of insulin Z79.4 ; Left hemiplegia G81.94 ; Status post CVA Z86.73 ; Stage III chronic kidney disease N18.3 and Lymphedema of left lower extremity I89.0 IMMUNIZATIONS No Known Immunizations SOCIAL HISTORY Never Assessed REASON FOR VISIT Routine visit PLAN OF CARE Activity Details Follow Up prn Reason: VITAL SIGNS MEDICATIONS Medication Instructions Dosage Frequency Start Date End Date Duration Status Cholecalciferol 5000 UNIT Orally Once a day at bedtime 1 capsule Active NovoLog 100 UNIT/ML Subcutaneous 4 times a day sliding scale 6h Active Super B Complex/Vitamin C - Orally Once a day 1 tablet 24h Active Levemir 100 UNIT/ML Subcutaneous 2 times a day 40 units 12h Active Guaifenesin-DM 100-10 MG/5ML Orally every 4 hrs 10 ml as needed 4h 13 Feb, 2018 Active Onglyza 2.5 MG Orally Once a day 1 tablet 24h Active Endur-Acin 500 mg Orally Once a day at bedtime 1 tablet with food Active Fluticasone Propionate 50 MCG/ACT Nasally Once a day 2 sprays in each nostril 24h Active Neurontin 300 MG Orally Twice a day 1 capsule at bdtime for 7 days then 1 tab 12h Oct, Active Rxofkupivcu-Qjrjquelg-Okb C-Mn - Active Essential Balance - Orally 3 times a day 1 tablet 8h Active Celexa 10 MG Orally Once a day 1 tablet 24h Active Cranberry 1000 MG Orally Once a day 1 tablet with meals 24h Active Aspirin Adult Low Dose 81 MG Orally Once a day 1 tablet 24h Active Symbicort 160-4.5 MCG/ACT Inhalation Twice a day 2 puffs 12h Active Accu-Chek Active - In Vitro before meals test blood sugars Active Metoprolol Succinate ER 100 MG Orally Once a day 1 tablet 24h Active Melatonin 3 MG Orally Once a day at bedtime 1 tablet at bedtime Active GoodSense Hemorrhoidal 0.25-14-74.9 % Active Ferrous Sulfate 325 (65 Fe) MG Orally Once a day 1 tablet 24h Active Valerian 530 MG Orally Once a day 1 capsule before bedtime as needed 24h Active [place] 3 1200 MG Orally Once a day 1 capsule 24h Active Blood Sugar 360 - Orally as needed 1 capsule Active Norvasc 5 MG Orally Once a day 1 tablet 24h Active Magnesium Hydroxide 400 MG/5ML Orally daily 30 ml as needed 24h Active Plavix 75 MG Orally Once a day 1 tablet 24h Active Victoza 18 MG/3ML Subcutaneous Once a day 1.8 mg 24h Active Tylenol Extra Strength 500 MG Orally every 6 hrs 2 tablets as needed 6h Active Lipitor 20 MG Orally Once a day 1 tablet 24h Active Urecholine 10 mg Orally 2 times a day 1 tablet after meals 12h Active [place] Nasal Gove 0.65 % Nasally every 4 hrs 2 sprays in each nostril as needed 4h Active Cinnamon 500 mg Orally Once a day 2 tablets 24h Active Hydrocodone-Acetaminophen 5-325 MG Orally every 6 hrs 1 tablet as needed 6h January, Active Trulicity 0.75 MG/0.5ML Subcutaneous weekly on wednesday 0.75 mg Active Omeprazole 20 MG Orally Once a day 1 capsule 24h Active Dulcolax 10 MG Rectal Once a day 1 suppository as needed 24h Active RESULTS No Results PROCEDURES Procedure Date Ordered Result Body Site Minor complication (15 mins) April 12, 2018 INSTRUCTIONS MEDICATIONS ADMINISTERED No Known Medications [...]
--- OUTSIDE RECORDS SUMMARY | 2018-09-20 10:58 | XMS REPORT ---
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 Active 556699625 Problem Gastroesophageal reflux disease without esophagitis K21.9 Active 367730970 Problem Cellulitis of left lower extremity L03.116 Active 513640222 Problem Left hemiplegia G81.94 Active 625796189 Problem Type 2 diabetes mellitus with unspecified complications E11.8 Active 71246021 Problem Stage III chronic kidney disease N18.3 Active 404511225 Problem Lymphedema of left lower extremity I89.0 Active 37782481671191210 ALLERGIES No Information ENCOUNTERS Encounter Location Date Diagnosis [employer] [address] [place] [address] [id number] Mar, Lymphedema of left lower extremity I89.0 and Left hemiplegia G81.94 [facility] [address] [place] [address] 51287- 5120 Mar, [facility] [address] [place] [address] 00278- 6346 Feb, [facility] [address] [place] [id number] [place] [address] 23496- 1183 Feb, [place] [address] [place] [address] [id number] [place] [address] 44418- 2351 Feb, [facility] [address] [place] [id number] Feb, Acute non-recurrent maxillary sinusitis J01.00 and Gastroesophageal reflux disease without esophagitis K21.9 [facility] [id number] [place] [address] 85155- 4912 Feb, [facility] [address] [place] [address] 72758 2546 Feb, [facility] [address] [place] [id number] January, Cellulitis of right lower limb L03.115 and Cellulitis of left lower leg L03.116 [place] [address] [place] [address] [id number] [place] [address] 83155 2546 January, [facility] [address] [place] [id number] [place] [address] 66873 2546 January, [facility] [address] [place] [id number] January, Acute superficial gastritis without hemorrhage K29.00 [place] [address] [place] [id number] [place] [address] 16051 2546 Dec, [facility] [address] [place] [id number] Nov, Acute superficial gastritis without hemorrhage K29.00 and Acute left-sided low back pain without sciatica M54.5 [facility] [address] [place] [id number] Nov, Chronic pruritus L29.9 ; Scratching T14.8XXA and Left hemiplegia G81.94 [place] [address] [place] [id number] [place] [address] 62707 2546 Oct, Scratching T14.8XXA [place] [address] [place] [id number] [place] [address] 59315- 4096 Oct, Scratching T14.8XXA [facility] [id number] [place] [address] [id number] Oct, [place] [address] [place] [address] [id number] [place] [address] [id number] Sep, [facility] [address] [place] [id number] [place] [address] 01558- 2546 Sep, [facility] [address] [place] [id number] Sep, Cellulitis of left lower extremity L03.116 [facility] [address] [address]- 5376 Sep, [facility] [address] [place] [address] 25193- 8716 Sep, [facility] [address] [place] [id number] Aug, Cellulitis of left lower extremity L03.116 [facility] [address] [place] [id number] Aug, Cellulitis of left lower extremity L03.116 and Lymphedema of left lower extremity I89.0 [facility] [id number] [place] [address] [id number] Aug, [place] [address] [place] [id number] [place] [address] [phone]- 9026 Aug, Cellulitis of left lower extremity L03.116 ; Wheezing R06.2 and Sinus congestion R09.81 [facility] [id number] [place] [address] [id number] Aug, [facility] [address] [place] [address] 99976- 0048 Aug, [place] [address] [place] [id number] [place] [address] 75775- 0075 Aug, [facility] [address] [place] [address] [phone] Aug, [employer] [employer] [facility] [place] [id number] Aug, Establishing care with new doctor, encounter for Z76.89 ; Type 2 diabetes mellitus with unspecified complications E11.8 ; 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
--- OUTSIDE RECORDS SUMMARY | 2018-09-20 10:58 | XMS REPORT ---
Author Author JOSH THAYER [facility] Address [address] [place] [address] Care Team Providers Care Communication Electronic Technician Name Role Phone JOSH THAYER Unavailable PROBLEMS Type Condition ICD9-CM Code [id number] Code Onset Dates Condition Status SNOMED Code Problem MCC current use of insulin Z79.4 Active 791903929 Problem Gastroesophageal reflux disease without esophagitis K21.9 Active 897039571 Problem Cellulitis of left lower extremity L03.116 Active 010948707 Problem Left hemiplegia G81.94 Active 672619367 Problem Type 2 diabetes mellitus with unspecified complications E11.8 Active 60996684 Problem Stage III chronic kidney disease N18.3 Active 904078436 Problem Lymphedema of left lower extremity I89.0 Active [id number] ALLERGIES No Information ENCOUNTERS Encounter Location Date Diagnosis [employer] [address] [place] [address] [id number] Mar, Lymphedema of left lower extremity I89.0 and Left hemiplegia G81.94 [place] [id number] [place] [address] 91130- 8963 Mar, [place] [facility] [id number] [place] [address] 30420- 1663 Feb, [place] [id number] [place] [address] 33280- 0689 Feb, [place] [id number] [place] [address] 90585- 5080 Feb, [facility] [address] [place] [address] [phone] Feb, Acute non-recurrent maxillary sinusitis J01.00 and Gastroesophageal reflux disease without esophagitis K21.9 [facility] [address] [address]- [address] Feb, [facility] [id number] [address] 2546 Feb, [facility] [address] [place] [id number] January, Cellulitis of right lower limb L03.115 and Cellulitis of left lower leg L03.116 [facility] [address] [place] [address] 10018- 2546 January, [facility] [id number] [place] [address] 30489- 2546 January, [facility] [address] [place] [id number] January, Acute superficial gastritis without hemorrhage K29.00 [place] [address] [place] [address] 76552 2546 Dec, [facility] [address] [place] [id number] Nov, Acute superficial gastritis without hemorrhage K29.00 and Acute left-sided low back pain without sciatica M54.5 [facility] [address] [place] [id number] Nov, Chronic pruritus L29.9 ; Scratching T14.8XXA and Left hemiplegia G81.94 [place] [address] [place] [address] 81498 2546 Oct, Scratching T14.8XXA [place] [address] [place] [address] 48145 2546 Oct, Scratching T14.8XXA [facility] [id number] [place] [address] [phone] Oct, [facility] [id number] [place] [address] [id number] Sep, [facility] [address] [place] [address] 41781- 2546 Sep, [facility] [address] [place] [id number] Sep, Cellulitis of left lower extremity L03.116 [facility] [address] [address] 0956 Sep, [facility] [id number] [place] [address] 62229- 8266 Sep, [facility] [address] [place] [id number] Aug, Cellulitis of left lower extremity L03.116 [facility] [place] [phone] Aug, Cellulitis of left lower extremity L03.116 and Lymphedema of left lower extremity I89.0 [place] [id number] [place] [address] [id number] Aug, [place] [id number] [place] [address] [phone]- 6496 Aug, Cellulitis of left lower extremity L03.116 ; Wheezing R06.2 and Sinus congestion R09.81 [facility] [id number] [place] [address] [id number] Aug, [place] [id number] [place] [address] 41076- 8770 Aug, [place] [id number] [place] [address] [phone] Aug, [place] [address] [place] [address] [phone] Aug, [facility] [place] [phone] Aug, Establishing care with new doctor, encounter for Z76.89 ; Type 2 diabetes mellitus with unspecified complications E11.8 ; MCC current use of insulin Z79.4 ; Left hemiplegia G81.94 ; Status post CVA Z86.73 ; Stage III chronic kidney disease N18.3 and Lymphedema of left lower extremity I89.0 IMMUNIZATIONS No Known Immunizations SOCIAL HISTORY Never Assessed REASON FOR VISIT [facility] PLAN OF CARE Activity Details Follow Up prn Reason: VITAL SIGNS MEDICATIONS Medication Instructions Dosage Frequency Start Date End Date Duration Status Lipitor 20 MG Orally Once a day 1 tablet 24h Unknown Victoza 18 MG/3ML Subcutaneous Once a day 1.8mg 24h Unknown Amino Acids-Protein Hydrolys - Orally 2 times a day 30ml 12h Unknown Plavix 75 MG Orally Once a day 1 tablet 24h Unknown Fluticasone Propionate 50 MCG/ACT Nasally Once a day 2 sprays in each nostril 24h Unknown Endur-Acin 500 MG Orally Once a day 1 tablet with food 24h Unknown Aspirin Adult Low Dose 81 MG Orally Once a day 1 tablet 24h Unknown [place] 3 1200 MG Orally Once a day 1 capsule 24h Unknown NovoLog 100 UNIT/ML Subcutaneous 4 times a day sliding scale 6h Unknown Cranberry 1000 MG Orally Once a day 1 tablet with meals 24h Unknown Melatonin 3 MG Orally Once a day 1 tablet at bedtime 24h Unknown [place] Nasal [place] 0.65 % Nasally every 2 hrs 2 sprays in each nostril as needed Unknown Magnesium Hydroxide 400 MG/5ML Orally daily 30 ml as needed 24h Unknown Metoprolol Succinate ER 100 MG Orally Once a day 1 tablet 24h Unknown Hydrocortisone 1 % Rectal Once a day 1 application to affected area 24h Unknown Blood Sugar 360 - Orally as needed 1 capsule Unknown GoodSense Hemorrhoidal 0.25-14-74.9 % Unknown Symbicort 160-4.5 MCG/ACT Inhalation Twice a day 2 puffs 12h Unknown Super B Complex/Vitamin C - Orally Once a day 1 tablet 24h Unknown Norvasc 5 MG Orally Once a day 1 tablet 24h Unknown Onglyza 2.5 MG Orally Once a day 1 tablet 24h Unknown Desitin 13 % Externally every shift 1 application to affected area Unknown Hydrocodone-Acetaminophen 5-325 MG Orally every 6 hrs 1 tablet as needed 6h January, Unknown HydrOXYzine HCl 25 MG Orally every 8 hrs 1 tablet as needed 8h Unknown Neurontin 300 MG Orally 2 times a day 1 capsule at bdtime for 7 days then 1 tab 12h 20 Oct, 2017 Unknown Tylenol Extra Strength 500 MG Orally every 6 hrs 2 tablets as needed 6h Unknown Valerian 530 MG Orally Once a day 1 capsule before bedtime as needed 24h Unknown Cholecalciferol 5000 UNIT Orally Once a day 1 capsule 24h Unknown Celexa 10 MG Orally Once a day 1 tablet 24h Unknown Urecholine 10 mg Orally 2 times a day 1 tablet after meals 12h Unknown Dulcolax 10 MG Rectal Once a day 1 suppository as needed 24h Unknown Ferrous Sulfate 325 (65 Fe) MG Orally Once a day 1 tablet 24h Unknown Levaquin 500 mg Orally Once a day 1 tablet 24h 12 Feb, 2018 Feb, 10 day(s) Active Levemir 100 UNIT/ML Subcutaneous 2 times a day 40 units 12h Unknown Cinnamon 500 mg Orally Once a day 2 tablets 24h Unknown [employer] - Unknown Essential Balance - Orally 3 times a day 1 tablet 8h Unknown Ttapuflkewf-Okjwossny-Xlq C-Mn - Unknown RESULTS No Results PROCEDURES Procedure Date Ordered Result Body Site Minor complication (15 mins) February 22, 2018 INSTRUCTIONS MEDICATIONS ADMINISTERED No Known Medications [...]
--- OUTSIDE RECORDS SUMMARY | 2018-09-20 10:58 | XMS REPORT ---
Author Author JOSH THAYER [facility] Address [address] [place] [address] Care Team Providers Care Blasting Contract Miner Name Role Phone JOSH THAYER Unavailable PROBLEMS Type Condition ICD9-CM Code [id number] Code Onset Dates Condition Status SNOMED Code Problem care home current use of insulin Z79.4 Active 547278812 Problem Gastroesophageal reflux disease without esophagitis K21.9 Active 521769296 Problem Cellulitis of left lower extremity L03.116 Active 058717127 Problem Left hemiplegia G81.94 Active 208606401 Problem Type 2 diabetes mellitus with unspecified complications E11.8 Active 08997158 Problem Stage III chronic kidney disease N18.3 Active 166860398 Problem Lymphedema of left lower extremity I89.0 Active 29263511546391993 ALLERGIES No Information ENCOUNTERS Encounter Location Date Diagnosis [employer] [address] [place] [address] [phone] Mar, Lymphedema of left lower extremity I89.0 and Left hemiplegia G81.94 [place] [id number] [place] [address] 15707- 9761 Mar, [place] [id number] [place] [address] 20127- 5222 Feb, [place] [id number] [place] [address] 85042- 9382 Feb, [place] [id number] [place] [address] 48151- 5059 Feb, [facility] [address] [place] [address] [phone] Feb, Acute non-recurrent maxillary sinusitis J01.00 and Gastroesophageal reflux disease without esophagitis K21.9 [facility] [address] 51668- 2607 Feb, [facility] [id number] [address] 2546 Feb, [facility] [address] [place] [id number] January, Cellulitis of right lower limb L03.115 and Cellulitis of left lower leg L03.116 [facility] [address] [place] [address] 61291- 2546 January, [facility] [id number] [place] [address] 71118- 2546 January, [facility] [address] [place] [id number] January, Acute superficial gastritis without hemorrhage K29.00 [place] [address] [place] [address] 07147 2546 Dec, [facility] [address] [place] [id number] Nov, Acute superficial gastritis without hemorrhage K29.00 and Acute left-sided low back pain without sciatica M54.5 [facility] [address] [place] [id number] Nov, Chronic pruritus L29.9 ; Scratching T14.8XXA and Left hemiplegia G81.94 [place] [address] [place] [address] 86869 2546 Oct, Scratching T14.8XXA [place] [address] [place] [address] 12191 2546 Oct, Scratching T14.8XXA [facility] [id number] [place] [address] [phone] Oct, [facility] [id number] [place] [address] [id number] Sep, [facility] [address] [place] [address] 85525- 2546 Sep, [facility] [address] [place] [id number] Sep, Cellulitis of left lower extremity L03.116 [facility] [address] [address]- 6006 Sep, [place] [id number] [place] [address] 05095- 6766 Sep, [facility] [address] [place] [id number] Aug, Cellulitis of left lower extremity L03.116 [facility] [place] [id number] Aug, Cellulitis of left lower extremity L03.116 and Lymphedema of left lower extremity I89.0 [place] [id number] [place] [address] [phone] Aug, [place] [id number] [place] [address] [phone] 7266 Aug, Cellulitis of left lower extremity L03.116 ; Wheezing R06.2 and Sinus congestion R09.81 [place] [id number] [place] [address] [phone] Aug, [place] [id number] [place] [address] 83254- 9058 Aug, [place] [id number] [place] [address] [phone] Aug, [place] [address] [place] [address] [phone]- [phone] Aug, [facility] [place] [phone] Aug, Establishing care with new doctor, encounter for Z76.89 ; Type 2 diabetes mellitus with unspecified complications E11.8 ; care home current use of insulin Z79.4 ; Left hemiplegia G81.94 ; Status post CVA Z86.73 ; Stage III chronic kidney disease N18.3 and Lymphedema of left lower extremity I89.0 IMMUNIZATIONS No Known Immunizations SOCIAL HISTORY Never Assessed REASON FOR VISIT Medication List Updated PLAN OF CARE VITAL SIGNS MEDICATIONS Medication Instructions Dosage Frequency Start Date End Date Duration Status Cranberry 1000 MG Orally Once a day 1 tablet with meals 24h Active Metoprolol Succinate ER 100 MG Orally Once a day 1 tablet 24h Active Tylenol Extra Strength 500 MG Orally every 6 hrs 2 tablets as needed 6h Active Levemir 100 UNIT/ML Subcutaneous 2 times a day 40 units 12h Active Guaifenesin-DM 100-10 MG/5ML Orally every 4 hrs 10 ml as needed 4h 13 Feb, 2018 Active Levaquin 500 mg Orally Once a day 1 tablet 24h Feb, Feb, 10 day(s) Active Plavix 75 MG Orally Once a day 1 tablet 24h Active Ofxplaiezbk-Wdbwqltoi-Cnk C-Mn - Active Fluticasone Propionate 50 MCG/ACT Nasally Once a day 2 sprays in each nostril 24h Active Urecholine 10 mg Orally 2 times a day 1 tablet after meals 12h Active Endur-Acin 500 mg Orally Once a day at bedtime 1 tablet with food Active Essential Balance - Orally 3 times a day 1 tablet 8h Active Cinnamon 500 mg Orally Once a day 2 tablets 24h Active Cholecalciferol 5000 UNIT Orally Once a day at bedtime 1 capsule Active Accu-Chek Active - In Vitro before meals test blood sugars Active Symbicort 160-4.5 MCG/ACT Inhalation Twice a day 2 puffs 12h Active Blood Sugar 360 - Orally as needed 1 capsule Active [place] 3 1200 MG Orally Once a day 1 capsule 24h Active Melatonin 3 MG Orally Once a day at bedtime 1 tablet at bedtime Active GoodSense Hemorrhoidal 0.25-14-74.9 % Active Ferrous Sulfate 325 (65 Fe) MG Orally Once a day 1 tablet 24h Active Valerian 530 MG Orally Once a day 1 capsule before bedtime as needed 24h Active NovoLog 100 UNIT/ML Subcutaneous 4 times a day sliding scale 6h Active Aspirin Adult Low Dose 81 MG Orally Once a day 1 tablet 24h Active Norvasc 5 MG Orally Once a day 1 tablet 24h Active Lipitor 20 MG Orally Once a day 1 tablet 24h Active Onglyza 2.5 MG Orally Once a day 1 tablet 24h Active Neurontin 300 MG Orally Twice a day 1 capsule at bdtime for 7 days then 1 tab 12h Oct, Active Super B Complex/Vitamin C - Orally Once a day 1 tablet 24h Active Magnesium Hydroxide 400 MG/5ML Orally daily 30 ml as needed 24h Active Victoza 18 MG/3ML Subcutaneous Once a day 1.8 mg 24h Active [place] Nasal [place] 0.65 % Nasally every 4 hrs 2 sprays in each nostril as needed 4h Active Celexa 10 MG Orally Once a day 1 tablet 24h Active Hydrocodone-Acetaminophen 5-325 MG Orally every 6 hrs 1 tablet as needed 6h January, Active Omeprazole 20 MG Orally Once a day 1 capsule 24h Active Trulicity 0.75 MG/0.5ML Subcutaneous weekly on wednesday 0.75 mg Active Dulcolax 10 MG Rectal Once a day 1 suppository as needed 24h Active RESULTS No Results PROCEDURES No Known procedures [...]
--- OUTSIDE RECORDS SUMMARY | 2018-09-20 10:58 | XMS REPORT ---
Author Author JOSH THAYER [facility] Address [address] [place] [address] Care Team Providers Care Liability Analyst Name Role Phone JOSH THAYER Unavailable PROBLEMS Type Condition ICD9-CM Code [id number] Code Onset Dates Condition Status SNOMED Code Problem Type 2 diabetes mellitus with unspecified complications E11.8 Active 45491547 Problem intermission coordinator current use of insulin Z79.4 Active 375364962 Problem Type 2 diabetes mellitus with hyperglycemia E11.65 Active 03808425 Problem Gastroesophageal reflux disease without esophagitis K21.9 Active 695129554 Problem Lymphedema of left lower extremity I89.0 Active 08453751814990220 Problem Left hemiplegia G81.94 Active 200202201 Problem Cellulitis of left lower extremity L03.116 Active 453117367 Problem Stage III chronic kidney disease N18.3 Active 925279894 ALLERGIES No Information ENCOUNTERS Encounter Location Date Diagnosis [place] [id number] [place] [address] 77733- [phone] Jul, [employer] [address] [place] [phone] Jul, Welcome to Medicare preventive visit Z00.00 ; Type 2 diabetes mellitus with unspecified complications E11.8 ; Stage III chronic kidney disease N18.3 ; Left hemiplegia G81.94 and Gastroesophageal reflux disease without esophagitis K21.9 [place] [id number], [place] [address] Jun, Type 2 diabetes mellitus with unspecified complications E11.8 [place] [id number], [place] [address]- 2776 Jun, Type 2 diabetes mellitus with hyperglycemia E11.65 and intermission coordinator current use of insulin Z79.4 [place] [id number] [place] [address] 50086- [phone] 16 Jun, 2018 Type 2 diabetes mellitus with hyperglycemia E11.65 and intermission coordinator current use of insulin Z79.4 [facility] [address] [place] [id number] Jun, Type 2 diabetes mellitus with unspecified complications E11.8 and History of cellulitis Z87.2 [facility] [address] [place] [id number] Mar, Lymphedema of left lower extremity I89.0 and Left hemiplegia G81.94 [facility] [id number] [place] [address] 86417- 8396 Mar, [facility] [id number] [place] [address] 84242- 5236 Feb, [place] [id number] [place] [address] 34313- 4506 Feb, [place] [id number] [place] [address] 53735- 1716 Feb, [facility] [address] [place] [id number] Feb, Acute non-recurrent maxillary sinusitis J01.00 and Gastroesophageal reflux disease without esophagitis K21.9 [place] [id number] [place] [address] 99543- 6406 Feb, [facility] [id number] [place] [address] 08743 2546 Feb, [facility] [address] [place], [place] [id number] January, Cellulitis of right lower limb L03.115 and Cellulitis of left lower leg L03.116 [facility] [id number] [place] [address] 62526 2546 January, [place] [address] [address] 2546 January, [facility] [address] [place] [id number] January, Acute superficial gastritis without hemorrhage K29.00 [place] [address] [place] [address] 2546 Dec, [facility] [address] [place] [id number] Nov, Acute superficial gastritis without hemorrhage K29.00 and Acute left-sided low back pain without sciatica M54.5 [facility] [address] [place], [place] [id number] Nov, Chronic pruritus L29.9 ; Scratching T14.8XXA and Left hemiplegia G81.94 [facility] [id number] [place] [address] 444616- 6312 Oct, Scratching T14.8XXA [facility] [address] 02005- 0536 Oct, Scratching T14.8XXA [facility] [id number] [place] [address] [phone] Oct, [facility] [address] [id number] Sep, [facility] [address] [place] [address] 19443- 0189 Sep, [facility] [address] [place] [id number] Sep, Cellulitis of left lower extremity L03.116 [facility] [address] [place] [address] 24826 2546 Sep, [facility] [id number] [place] [address] 35195 2546 Sep, [facility] [address] [place] [id number] Aug, Cellulitis of left lower extremity L03.116 [facility] [address] [place] [id number] Aug, Cellulitis of left lower extremity L03.116 and Lymphedema of left lower extremity I89.0 [facility] [id number] [place] [address] [id number] Aug, [facility] [address] [place] [address]- 4586 Aug, Cellulitis of left lower extremity L03.116 ; Wheezing R06.2 and Sinus congestion R09.81 [facility] [address] [id number] [id number] Aug, [facility] [address] [facility] [id number] [address] 8739 Aug, [facility] [id number], [place] [address]- 3609 Aug, [facility] [address] [facility] [id number] [address] Aug, [facility] [facility] [place] [phone] Aug, Establishing care with new doctor, encounter for Z76.89 ; Type 2 diabetes mellitus with unspecified complications E11.8 ; correction current use of insulin Z79.4 ; Left hemiplegia G81.94 ; Status post CVA Z86.73 ; Stage III chronic kidney disease N18.3 and Lymphedema of left lower extremity I89.0 IMMUNIZATIONS No Known Immunizations SOCIAL HISTORY Never Assessed REASON FOR VISIT 1 mo f/u DM Ed PLAN OF CARE VITAL SIGNS MEDICATIONS Unknown [...]
--- OUTSIDE RECORDS SUMMARY | 2018-09-20 10:58 | XMS REPORT ---
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.4 Active 264863795 Problem Type 2 diabetes mellitus with hyperglycemia E11.65 Active 85277343 Problem Gastroesophageal reflux disease without esophagitis K21.9 Active 014344304 Problem Lymphedema of left lower extremity I89.0 Active 32297598456587796 Problem Left hemiplegia G81.94 Active 581022215 Problem Cellulitis of left lower extremity L03.116 Active 221589532 Problem Stage III chronic kidney disease N18.3 Active 651082025 ALLERGIES No Information ENCOUNTERS Encounter Location Date Diagnosis [place] [id number] [place] [address] 07890- 6459 Jul, [place] [address] [place] [address] 16537- 8426 Jul, [employer] [address] [place] [id number] Jul, Welcome to Medicare preventive visit Z00.00 ; Type 2 diabetes mellitus with unspecified complications E11.8 ; Stage III chronic kidney disease N18.3 ; Left hemiplegia G81.94 and Gastroesophageal reflux disease without esophagitis K21.9 [place] [id number] [place] [address] 51360- 0162 Jun, Type 2 diabetes mellitus with unspecified complications E11.8 [place] [id number] [place] [address] 03915- 8410 Jun, Type 2 diabetes mellitus with hyperglycemia E11.65 and terminal operator current use of insulin Z79.4 [facility] [id number] [place] [address] 95328- 6086 16 Jun, 2018 Type 2 diabetes mellitus with hyperglycemia E11.65 and senior care current use of insulin Z79.4 [facility] [employer] [address] [place] [id number] Jun, Type 2 diabetes mellitus with unspecified complications E11.8 and History of cellulitis Z87.2 [facility] [address] [place] [id number] Mar, Lymphedema of left lower extremity I89.0 and Left hemiplegia G81.94 [place] [id number] [place] [address] 15740- 8046 Mar, [place] [id number] [place] [address] 28653- 4726 Feb, [place] [id number] [place] [address] 15233- 9256 Feb, [place] [id number] [place] [address] 71035- 9846 Feb, [facility] [address] [place] [id number] Feb, Acute non-recurrent maxillary sinusitis J01.00 and Gastroesophageal reflux disease without esophagitis K21.9 [place] [id number] [place] [address] 34082- 5396 Feb, [place] [id number] [place] [address] 43034 2546 Feb, [facility] [employer] [address] [place] [id number] January, Cellulitis of right lower limb L03.115 and Cellulitis of left lower leg L03.116 [place] [id number] [place] [address] 19633 2546 January, [place] [id number] [place] [address] 67760 2546 January, [facility] [address] [place] [id number] January, Acute superficial gastritis without hemorrhage K29.00 [facility] [address] [place] [address] 11134 2546 Dec, [facility] [employer] [address] [place] [id number] Nov, Acute superficial gastritis without hemorrhage K29.00 and Acute left-sided low back pain without sciatica M54.5 [facility] [address] [place] [id number] Nov, Chronic pruritus L29.9 ; Scratching T14.8XXA and Left hemiplegia G81.94 [facility] [id number] [place] [address] 45376 2546 Oct, Scratching T14.8XXA [facility] [id number] [place] [address] 96282 2546 Oct, Scratching T14.8XXA [facility] [id number] [place] [address] [phone] Oct, [facility] [id number] [place] [address] [phone] Sep, [facility] [address] [place] [address] 61876 2546 Sep, [facility] [employer] [address] [place] [id number] Sep, Cellulitis of left lower extremity L03.116 [facility] [address] [place] [address] 08920 2546 Sep, [facility] [id number] [place] [address] 54884- 2546 Sep, [facility] [address] [place] [id number] Aug, Cellulitis of left lower extremity L03.116 [facility] [address] [place] [id number] Aug, Cellulitis of left lower extremity L03.116 and Lymphedema of left lower extremity I89.0 [facility] [address] [id number] Aug, [facility] [address] [facility] [id number] [phone]30 Aug, Cellulitis of left lower extremity L03.116 ; Wheezing R06.2 and Sinus congestion R09.81 [facility] [address] [id number] [id number] Aug, [facility] [address] [place] [id number] [address]- 8175 Aug, [facility] [address] [facility] [id number] [address]- 3151 Aug, [facility] [id number] [address] 0291 Aug, [employer] [facility] [place] [id number] Aug, Establishing care with new doctor, encounter for Z76.89 ; Type 2 diabetes mellitus with unspecified complications E11.8 ; senior care current use of insulin Z79.4 ; Left hemiplegia G81.94 ; Status post CVA Z86.73 ; Stage III chronic kidney disease N18.3 and Lymphedema of left lower extremity I89.0 IMMUNIZATIONS No Known Immunizations SOCIAL HISTORY Never Assessed REASON FOR VISIT constipation PLAN OF CARE VITAL SIGNS MEDICATIONS Unknown [...]
--- OUTSIDE RECORDS SUMMARY | 2018-09-20 10:58 | XMS REPORT ---
Author Author JOSH THAYER Organization [facility] Address [address] [place] [address] Care Team Providers Care Beam Press Operator Name Role Phone JOSH THAYER Unavailable PROBLEMS Type Condition ICD9-CM Code FWL15-KL Code Onset Dates Condition Status SNOMED Code Problem Type 2 diabetes mellitus with unspecified complications E11.8 Active 07768404 Problem terminal carman current use of insulin Z79.4 Active 636327473 Problem Type 2 diabetes mellitus with hyperglycemia E11.65 Active 82503440 Problem Gastroesophageal reflux disease without esophagitis K21.9 Active 839048566 Problem Lymphedema of left lower extremity I89.0 Active 08942914989639863 Problem Left hemiplegia G81.94 Active 182910707 Problem Cellulitis of left lower extremity L03.116 Active 229331267 Problem Stage III chronic kidney disease N18.3 Active 954780844 ALLERGIES No Information ENCOUNTERS Encounter Location Date Diagnosis [place] [address] 62229- 8842 Jun, Type 2 diabetes mellitus with unspecified complications E11.8 [place] [id number] [place] [address] 75304- 3715 Jun, Type 2 diabetes mellitus with hyperglycemia E11.65 and shelter current use of insulin Z79.4 [facility] [id number] [place] [address] 78060- 2064 Jun, Type 2 diabetes mellitus with hyperglycemia E11.65 and shelter current use of insulin Z79.[address] [facility] [address] [place] [address] [phone] Jun, Type 2 diabetes mellitus with unspecified complications E11.8 and History of cellulitis Z87.2 [employer] [address] [place] [address] [id number] Mar, Lymphedema of left lower extremity I89.0 and Left hemiplegia G81.94 [facility] [address] [place] [address] 86453- 2464 Mar, [facility] [id number] [place] [address] 11686- 9791 Feb, [facility] [address] [id number] [place] [address] 67084- 0348 Feb, [place] [address] 20657- 9489 Feb, [facility] [address] [place] [id number] Feb, Acute non-recurrent maxillary sinusitis J01.00 and Gastroesophageal reflux disease without esophagitis K21.9 [place] [id number] [place] [address] 78275- 0884 Feb, [place] [address] 08111- 6888 Feb, [facility] [address] [place] [id number] January, Cellulitis of right lower limb L03.115 and Cellulitis of left lower leg L03.116 [place] [id number] [place] [address] 08184- 0725 January, [place] [id number] [place] [address] 17620- 6579 January, [facility] [address] [place] [id number] January, Acute superficial gastritis without hemorrhage K29.00 [place] [address] [id number] [place] [address] 57920 2546 Dec, [facility] [address] [place] [id number] Nov, Acute superficial gastritis without hemorrhage K29.00 and Acute left-sided low back pain without sciatica M54.5 [facility] [employer] [address] [place] [id number] Nov, Chronic pruritus L29.9 ; Scratching T14.8XXA and Left hemiplegia G81.94 [facility] [address] [address] 3696 Oct, Scratching T14.8XXA [facility] [address] [place] [address] 82726 2546 Oct, Scratching T14.8XXA [facility] [id number] [place] [address] [phone] Oct, [facility] [id number] [place] [address] [phone] Sep, [place] [address] [id number] [place] [address] 68512- 6246 Sep, [employer] [address] [place] [id number] Sep, Cellulitis of left lower extremity L03.116 [place] [address] [id number] [place] [address] 35414 2546 Sep, [facility] [address] [place] [address] 67079 2546 Sep, [employer] [address] [place] [id number] Aug, Cellulitis of left lower extremity L03.116 [employer] [facility] [place] [id number] Aug, Cellulitis of left lower extremity L03.116 and Lymphedema of left lower extremity I89.0 [place] [id number] [place] [address] [id number] Aug, [place] [address] [place] [address] 84435- 7716 Aug, Cellulitis of left lower extremity L03.116 ; Wheezing R06.2 and Sinus congestion R09.81 [facility] [id number] [place] [address] [phone] Aug, [place] [address] [place] [address] 71314- 1836 Aug, [place] [address] [facility] [id number] [address]- 7367 Aug, [facility] [address] [facility] [id number] [address]- 7159 Aug, [employer] [address] [place] [id number] Aug, Establishing care with new doctor, encounter for Z76.89 ; Type 2 diabetes mellitus with unspecified complications E11.8 ; shelter current use of insulin Z79.4 ; Left hemiplegia G81.94 ; Status post CVA Z86.73 ; Stage III chronic kidney disease N18.3 and Lymphedema of left lower extremity I89.0 IMMUNIZATIONS No Known Immunizations SOCIAL HISTORY Never Assessed REASON FOR VISIT medication changes PLAN OF CARE VITAL SIGNS MEDICATIONS Medication Instructions Dosage Frequency Start Date End Date Duration Status NovoLog 100 UNIT/ML Subcutaneous before meals 15u 30 days Active RESULTS No Results PROCEDURES No Known [...]
--- OUTSIDE RECORDS SUMMARY | 2018-09-20 10:59 | XMS REPORT ---
Author Author JOSH THAYER [facility] Address [address] [place] [address] Care Team Providers Care Machine Operator Packaging Name Role Phone JOSH THAYER Unavailable PROBLEMS Type Condition ICD9-CM Code FEP14-KX Code Onset Dates Condition Status SNOMED Code Problem group home current use of insulin Z79.4 Active 143108027 Problem Gastroesophageal reflux disease without esophagitis K21.9 Active 785833191 Problem Cellulitis of left lower extremity L03.116 Active 880025415 Problem Left hemiplegia G81.94 Active 087259541 Problem Type 2 diabetes mellitus with unspecified complications E11.8 Active 82365008 Problem Stage III chronic kidney disease N18.3 Active 863947864 Problem Lymphedema of left lower extremity I89.0 Active 29514226825832886 ALLERGIES No Information ENCOUNTERS Encounter Location Date Diagnosis [employer] [address] [place] [id number] Mar, Lymphedema of left lower extremity I89.0 and Left hemiplegia G81.94 [place] [address] [place] [address] [id number] [place] [address] 50940- 8771 Mar, [place] [address] [address] [id number] [place] [address] 54569- 5813 Feb, [place] [address] [place] [id number] [place] [address] 02108- 7054 Feb, [place] [address] [place] [address] [id number] [place] [address] 14671- 6530 Feb, [employer] [facility] [address] [place] [address] [id number] Feb, Acute non-recurrent maxillary sinusitis J01.00 and Gastroesophageal reflux disease without esophagitis K21.9 [facility] [address] 83213- 1807 Feb, [facility] [address] [place] [id number] [address] 2546 Feb, [facility] [address] [place] [id number] January, Cellulitis of right lower limb L03.115 and Cellulitis of left lower leg L03.116 [facility] [address] [place] [address] 19302- 2546 January, [facility] [address] [place] [address] [id number] [place] [address] 25027- 2546 January, [facility] [address] [place] [id number] January, Acute superficial gastritis without hemorrhage K29.00 [place] [address] [place] [address] 37605 2546 Dec, [facility] [address] [place] [id number] Nov, Acute superficial gastritis without hemorrhage K29.00 and Acute left-sided low back pain without sciatica M54.5 [facility] [address] [place] [id number] Nov, Chronic pruritus L29.9 ; Scratching T14.8XXA and Left hemiplegia G81.94 [place] [address] [place] [address] 80834 2546 Oct, Scratching T14.8XXA [place] [address] [place] [address] 23967 2546 Oct, Scratching T14.8XXA [facility] [id number] [place] [address] [id number] Oct, [facility] [address] [id number] [place] [address] [phone] Sep, [facility] [address] [place] [address] 18549- 2546 Sep, [facility] [address] [place] [id number] Sep, Cellulitis of left lower extremity L03.116 [facility] [address] [address]- 2086 Sep, [facility] [id number] [place] [address] 76585- 3856 Sep, [facility] [address] [place] [id number] Aug, Cellulitis of left lower extremity L03.116 [facility] [place] [id number] Aug, Cellulitis of left lower extremity L03.116 and Lymphedema of left lower extremity I89.0 [place] [id number] [place] [address] [id number] Aug, [place] [address] [place] [address] [id number] [place] [address] [phone] 5786 Aug, Cellulitis of left lower extremity L03.116 ; Wheezing R06.2 and Sinus congestion R09.81 [facility] [address] [id number] [place] [address] [phone] Aug, [place] [address] [place] [address] [id number] [place] [address] 20244- 3320 Aug, [place] [address] [place] [id number] [place] [address] [phone]- 6415 Aug, [place] [address] [place] [address] [phone]- 7730 Aug, [facility] [address] [place] [phone] Aug, Establishing care with new doctor, encounter for Z76.89 ; Type 2 diabetes mellitus with unspecified complications E11.8 ; group home current use of insulin Z79.4 ; Left hemiplegia G81.94 ; Status post CVA Z86.73 ; Stage III chronic kidney disease N18.3 and Lymphedema of left lower extremity I89.0 IMMUNIZATIONS No Known Immunizations SOCIAL HISTORY Never Assessed REASON FOR VISIT abdomninal pain PLAN OF CARE Activity Details Follow Up prn Reason: VITAL SIGNS MEDICATIONS No Known Medications RESULTS No Results PROCEDURES Procedure Date Ordered Result Body Site Minor complication (15 mins) January 18, 2018 INSTRUCTIONS MEDICATIONS ADMINISTERED No Known Medications [...]
--- OUTSIDE RECORDS SUMMARY | 2018-09-20 10:59 | XMS REPORT ---
Author Author JOSH THAYER [facility] Address [address] [place] [address] Care Team Providers Care Cna Pct Name Role Phone JOSH THAYER Unavailable PROBLEMS Type Condition ICD9-CM Code [id number] Code Onset Dates Condition Status SNOMED Code Problem prison current use of insulin Z79.4 Active 335378650 Problem Gastroesophageal reflux disease without esophagitis K21.9 Active 842458219 Problem Cellulitis of left lower extremity L03.116 Active 176976207 Problem Left hemiplegia G81.94 Active 413222028 Problem Type 2 diabetes mellitus with unspecified complications E11.8 Active 11741089 Problem Stage III chronic kidney disease N18.3 Active 125067117 Problem Lymphedema of left lower extremity I89.0 Active [id number] ALLERGIES No Information ENCOUNTERS Encounter Location Date Diagnosis [employer] [address] [place] [address] [id number] Mar, Lymphedema of left lower extremity I89.0 and Left hemiplegia G81.94 [place] [id number] [place] [address] 26766- 0283 Mar, [place] [id number] [place] [address] 01994- 9491 Feb, [place] [id number] [place] [address] 71433- 5947 Feb, [place] [id number] [place] [address] 59309- 1846 Feb, [facility] [address] [place] [address] [id number] Feb, Acute non-recurrent maxillary sinusitis J01.00 and Gastroesophageal reflux disease without esophagitis K21.9 [facility] [address] [address]- [address] Feb, [facility] [id number] [address] 2546 Feb, [facility] [address] [place] [id number] January, Cellulitis of right lower limb L03.115 and Cellulitis of left lower leg L03.116 [facility] [address] [place] [address] 90290- 2546 January, [facility] [id number] [place] [address] 77194- 2546 January, [facility] [address] [place] [id number] January, Acute superficial gastritis without hemorrhage K29.00 [place] [address] [place] [address] 19631 2546 Dec, [facility] [address] [place] [id number] Nov, Acute superficial gastritis without hemorrhage K29.00 and Acute left-sided low back pain without sciatica M54.5 [facility] [address] [place] [id number] Nov, Chronic pruritus L29.9 ; Scratching T14.8XXA and Left hemiplegia G81.94 [place] [address] [place] [address] 05722 2546 Oct, Scratching T14.8XXA [place] [address] [place] [address] 08998 2546 Oct, Scratching T14.8XXA [facility] [id number] [place] [address] [phone] Oct, [facility] [id number] [place] [address] [phone] Sep, [facility] [address] [place] [address] 17857- 2546 Sep, [facility] [address] [place] [id number] Sep, Cellulitis of left lower extremity L03.116 [facility] [address] [address]- 8382 Sep, [facility] [id number] [place] [address] 12477- 4696 Sep, [facility] [address] [place] [id number] Aug, Cellulitis of left lower extremity L03.116 [facility] [place] [phone] Aug, Cellulitis of left lower extremity L03.116 and Lymphedema of left lower extremity I89.0 [place] [id number] [place] [address] [phone] Aug, [place] [id number] [place] [address] [phone]- 3226 Aug, Cellulitis of left lower extremity L03.116 ; Wheezing R06.2 and Sinus congestion R09.81 [facility] [id number] [place] [address] [phone] Aug, [place] [id number] [place] [address] 40944- 1816 Aug, [place] [id number] [place] [address] 13966- 6485 Aug, [place] [address] [place] [address] [phone]- [phone] Aug, [facility] [place] [phone] Aug, Establishing care with new doctor, encounter for Z76.89 ; Type 2 diabetes mellitus with unspecified complications E11.8 ; prison current use of insulin Z79.4 ; Left hemiplegia G81.94 ; Status post CVA Z86.73 ; Stage III chronic kidney disease N18.3 and Lymphedema of left lower extremity I89.0 IMMUNIZATIONS No Known Immunizations SOCIAL HISTORY Never Assessed REASON FOR VISIT Cellulitis follow up PLAN OF CARE Activity Details Follow Up prn Reason: VITAL SIGNS MEDICATIONS Medication Instructions Dosage Frequency Start Date End Date Duration Status Super B Complex/Vitamin C - Orally Once a day 1 tablet 24h Active Celexa 10 MG Orally Once a day 1 tablet 24h Active Endur-Acin 500 MG Orally Once a day 1 tablet with food 24h Active Hydrocodone-Acetaminophen 5-325 MG Orally every 6 hrs 1 tablet as needed 6h January, Active Magnesium Hydroxide 400 MG/5ML Orally daily 30 ml as needed 24h Active Lipitor 20 MG Orally Once a day 1 tablet 24h Active Essential Balance - Orally 3 times a day 1 tablet 8h Active Urecholine 10 mg Orally 2 times a day 1 tablet after meals 12h Active Neurontin 300 MG Orally 2 times a day 1 capsule at bdtime for 7 days then 1 tab 12h Oct, Active Gold Goyal Ultimate Healing - Active Tylenol Extra Strength 500 MG Orally every 6 hrs 2 tablets as needed 6h Active Valerian 530 MG Orally Once a day 1 capsule before bedtime as needed 24h Active Plavix 75 MG Orally Once a day 1 tablet 24h Active Centenary 3 1200 MG Orally Once a day 1 capsule 24h Active NovoLog 100 UNIT/ML Subcutaneous 4 times a day sliding scale 6h Active Desitin 13 % Externally every shift 1 application to affected area Active Melatonin 3 MG Orally Once a day 1 tablet at bedtime 24h Active Blood Sugar 360 - Orally as needed 1 capsule Active Aspirin Adult Low Dose 81 MG Orally Once a day 1 tablet 24h Active Omeprazole 20 mg Orally twice a day 1 capsule 12h Nov, 30 day(s ) Active Victoza 18 MG/3ML Subcutaneous Once a day 1.8mg 24h Active Pbylqrcuqlp-Zlbjpqarm-Tos C-Mn - Active Cinnamon 500 mg Orally Once a day 2 tablets 24h Active Norvasc 5 MG Orally Once a day 1 tablet 24h Active Cranberry 1000 MG Orally Once a day 1 tablet with meals 24h Active Levemir 100 UNIT/ML Subcutaneous 2 times a day 40 units 12h Active Amino Acids-Protein Hydrolys - Orally 2 times a day 30ml 12h Active Ferrous Sulfate 325 (65 Fe) MG Orally Once a day 1 tablet 24h Active GoodSense Hemorrhoidal 0.25-14-74.9 % Active Dulcolax 10 MG Rectal Once a day 1 suppository as needed 24h Active Augmentin 875-125 MG Orally every 12 hrs 1 tablet 12h January, Feb, 07 days Active Fluticasone Propionate 50 MCG/ACT Nasally Once a day 2 sprays in each nostril 24h Active HydrOXYzine HCl 25 MG Orally every 8 hrs 1 tablet as needed 8h Active Cholecalciferol 5000 UNIT Orally Once a day 1 capsule 24h Active Symbicort 160-4.5 MCG/ACT Inhalation Twice a day 2 puffs 12h Active Hydrocortisone 1 % Rectal Once a day 1 application to affected area 24h Active Metoprolol Succinate ER 100 MG Orally Once a day 1 tablet 24h Active Clarion Nasal [place] 0.65 % Nasally every 2 hrs 2 sprays in each nostril as needed Active Onglyza 2.5 MG Orally Once a day 1 tablet 24h Active RESULTS No Results PROCEDURES Procedure Date Ordered Result Body Site Minor complication (15 mins) February 08, 2018 INSTRUCTIONS MEDICATIONS ADMINISTERED No Known Medications [...]
--- OUTSIDE RECORDS SUMMARY | 2018-09-20 10:59 | XMS REPORT ---
Author Author JOSH THAYER [facility] Address [address] [place] [address] Care Team Providers Care Bowl Attendant Name Role Phone JOSH THAYER Unavailable PROBLEMS Type Condition ICD9-CM Code [id number] Code Onset Dates Condition Status SNOMED Code Problem [facility] current use of insulin Z79.4 Active 833544020 Problem Gastroesophageal reflux disease without esophagitis K21.9 Active 313645856 Problem Cellulitis of left lower extremity L03.116 Active 030655248 Problem Left hemiplegia G81.94 Active 179442594 Problem Type 2 diabetes mellitus with unspecified complications E11.8 Active 41203740 Problem Stage III chronic kidney disease N18.3 Active 117922295 Problem Lymphedema of left lower extremity I89.0 Active 13824463185362721 ALLERGIES No Information ENCOUNTERS Encounter Location Date Diagnosis [employer] [address] [place] [address] [id number] Mar, Lymphedema of left lower extremity I89.0 and Left hemiplegia G81.94 [place] [id number] [place] [address] 67669- 8416 Mar, [place] [id number] [place] [address] 08476- 5478 Feb, [place] [id number] [place] [address] 20236- 8445 Feb, [place] [id number] [place] [address] 52876- 4696 Feb, [employer] [address] [place] [address] [id number] Feb, Acute non-recurrent maxillary sinusitis J01.00 and Gastroesophageal reflux disease without esophagitis K21.9 [facility] [address] 03941- 9731 Feb, [facility] [id number] [address] 2546 Feb, [facility] [address] [place] [id number] January, Cellulitis of right lower limb L03.115 and Cellulitis of left lower leg L03.116 [facility] [address] [place] [address] 32304- 2546 January, [facility] [id number] [place] [address] 72599- 2546 January, [facility] [address] [place] [id number] January, Acute superficial gastritis without hemorrhage K29.00 [place] [address] [place] [address] 66082 2546 Dec, [facility] [address] [place] [id number] Nov, Acute superficial gastritis without hemorrhage K29.00 and Acute left-sided low back pain without sciatica M54.5 [facility] [address] [place] [id number] Nov, Chronic pruritus L29.9 ; Scratching T14.8XXA and Left hemiplegia G81.94 [place] [address] [place] [address] 21500 2546 Oct, Scratching T14.8XXA [place] [address] [place] [address] 88326 2546 Oct, Scratching T14.8XXA [facility] [id number] [place] [address] [phone] Oct, [facility] [id number] [place] [address] [id number] Sep, [facility] [address] [place] [address] 44034- 2546 Sep, [facility] [address] [place] [id number] Sep, Cellulitis of left lower extremity L03.116 [facility] [address], [place] [address]- 2666 Sep, [facility] [id number] [place] [address] 10762- 9426 Sep, [facility] [address] [place] [id number] Aug, Cellulitis of left lower extremity L03.116 [facility] [place] [id number] Aug, Cellulitis of left lower extremity L03.116 and Lymphedema of left lower extremity I89.0 [place] [id number] [place] [address] [phone] Aug, [place] [id number] [place] [address] 60050- 0426 Aug, Cellulitis of left lower extremity L03.116 ; Wheezing R06.2 and Sinus congestion R09.81 [facility] [id number] [place] [address] [id number] Aug, [place] [address] [place] [address] 89956- 3404 Aug, [place] [id number] [place] [address] [phone] Aug, [place] [address] [place] [address] 70032- 7946 Aug, [facility] [place] [id number] Aug, Establishing care with new doctor, encounter for Z76.89 ; Type 2 diabetes mellitus with unspecified complications E11.8 ; [facility] current use of insulin Z79.4 ; Left hemiplegia G81.94 ; Status post CVA Z86.73 ; Stage III chronic kidney disease N18.3 and Lymphedema of left lower extremity I89.0 IMMUNIZATIONS No Known Immunizations SOCIAL HISTORY Never Assessed REASON FOR VISIT Requests return call PLAN OF CARE VITAL SIGNS MEDICATIONS Medication Instructions Dosage Frequency Start Date End Date Duration Status Augmentin 875-125 MG Orally every 12 hrs 1 tablet 12h January, Feb, 07 days Active RESULTS No Results PROCEDURES No [...]
--- OUTSIDE RECORDS SUMMARY | 2018-09-20 10:59 | XMS REPORT ---
Author Author JOSH THAYER [facility] Address [address] [place] [address] Care Team Providers Care Rn Transition Name Role Phone JOSH THAYER Unavailable PROBLEMS Type Condition ICD9-CM Code [id number] Code Onset Dates Condition Status SNOMED Code Problem senior care current use of insulin Z79.4 Active 342246457 Problem Gastroesophageal reflux disease without esophagitis K21.9 Active 889228596 Problem Cellulitis of left lower extremity L03.116 Active 476220416 Problem Left hemiplegia G81.94 Active 569379985 Problem Type 2 diabetes mellitus with unspecified complications E11.8 Active 14654096 Problem Stage III chronic kidney disease N18.3 Active 337756292 Problem Lymphedema of left lower extremity I89.0 Active 83531757042401585 ALLERGIES No Information ENCOUNTERS Encounter Location Date Diagnosis [employer] [address] [place] [address] [id number] Mar, Lymphedema of left lower extremity I89.0 and Left hemiplegia G81.94 [place] [id number] [place] [address] 33612- 8471 Mar, [place] [id number] [place] [address] 76006- 1454 Feb, [place] [id number] [place] [address] 48753- 2992 Feb, [place] [id number] [place] [address] 22268- 5512 Feb, [facility] [address] [place] [address] [id number] Feb, Acute non-recurrent maxillary sinusitis J01.00 and Gastroesophageal reflux disease without esophagitis K21.9 [facility] [address] 49165- 7563 Feb, [facility] [address] [id number], [place] [address] 2546 Feb, [facility] [address] [place] [id number] January, Cellulitis of right lower limb L03.115 and Cellulitis of left lower leg L03.116 [facility] [address] [place] [address] 65296- 2546 January, [facility] [id number] [place] [address] 82040- 2546 January, [facility] [address] [place] [id number] January, Acute superficial gastritis without hemorrhage K29.00 [place] [address] [place] [address] 47129 2546 Dec, [facility] [address] [place] [id number] Nov, Acute superficial gastritis without hemorrhage K29.00 and Acute left-sided low back pain without sciatica M54.5 [facility] [address] [place] [id number] Nov, Chronic pruritus L29.9 ; Scratching T14.8XXA and Left hemiplegia G81.94 [place] [address] [place] [address] 33808 2546 Oct, Scratching T14.8XXA [place] [address] [place] [address] 19375 2546 Oct, Scratching T14.8XXA [facility] [id number] [place] [address] [id number] Oct, [facility] [id number] [place] [address] [id number] Sep, [facility] [address] [place] [address] 21140- 2546 Sep, [facility] [address] [place] [id number] Sep, Cellulitis of left lower extremity L03.116 [facility] [address], [place] [address]- 6506 Sep, [facility] [id number] [place] [address] 08225- 0196 Sep, [facility] [address] [place] [id number] Aug, Cellulitis of left lower extremity L03.116 [facility] [address] [place] [id number] Aug, Cellulitis of left lower extremity L03.116 and Lymphedema of left lower extremity I89.0 [place] [id number] [place] [address] [id number] Aug, [place] [id number] [place] [address] [phone] 3416 Aug, Cellulitis of left lower extremity L03.116 ; Wheezing R06.2 and Sinus congestion R09.81 [facility] [id number] [place] [address] [id number] Aug, [place] [address] [place] [address] 36604- 4934 Aug, [place] [id number] [place] [address] 22009- 8670 Aug, [place] [address] [place] [address] 10992- 0244 Aug, [facility] [address] [place] [id number] Aug, Establishing care with new doctor, encounter for Z76.89 ; Type 2 diabetes mellitus with unspecified complications E11.8 ; senior care current use of insulin Z79.4 ; Left hemiplegia G81.94 ; Status post CVA Z86.73 ; Stage III chronic kidney disease N18.3 and Lymphedema of left lower extremity I89.0 IMMUNIZATIONS No Known Immunizations SOCIAL HISTORY Never Assessed REASON FOR VISIT sinus trouble PLAN OF CARE VITAL SIGNS MEDICATIONS No [...]
--- OUTSIDE RECORDS SUMMARY | 2018-09-20 10:59 | XMS REPORT ---
Author Author JOSH THAYER [facility] Address [address] [place] [address] Care Team Providers Care Health Program Manager Name Role Phone JOSH THAYER Unavailable PROBLEMS Type Condition ICD9-CM Code FUN85-AN Code Onset Dates Condition Status SNOMED Code Problem custodial current use of insulin Z79.4 Active 992904502 Problem Gastroesophageal reflux disease without esophagitis K21.9 Active 989451308 Problem Cellulitis of left lower extremity L03.116 Active 953288373 Problem Left hemiplegia G81.94 Active 890486441 Problem Type 2 diabetes mellitus with unspecified complications E11.8 Active 74219338 Problem Stage III chronic kidney disease N18.3 Active 315689282 Problem Lymphedema of left lower extremity I89.0 Active [id number] ALLERGIES No Information ENCOUNTERS Encounter Location Date Diagnosis [employer] [facility] [address] [place] [address] [id number] Mar, Lymphedema of left lower extremity I89.0 and Left hemiplegia G81.94 [place] [id number] [place] [address] 28008- 8397 Mar, [place] [id number] [place] [address] 35573- 8099 Feb, [place] [id number] [place] [address] 48089- 1960 Feb, [place] [id number] [place] [address] 58994- 8127 Feb, [facility] [address] [place] [address] [id number] Feb, Acute non-recurrent maxillary sinusitis J01.00 and Gastroesophageal reflux disease without esophagitis K21.9 [facility] [address] 63078- 3191 Feb, [facility] [id number], [place] [address] 2546 Feb, [facility] [address] [place] [id number] January, Cellulitis of right lower limb L03.115 and Cellulitis of left lower leg L03.116 [facility] [address] [place] [address] 52978- 2546 January, [facility] [place] [id number] [place] [address] 96967- 2546 January, [facility] [address] [place] [id number] January, Acute superficial gastritis without hemorrhage K29.00 [place] [address] [place] [address] 79770 2546 Dec, [facility] [address] [place] [id number] Nov, Acute superficial gastritis without hemorrhage K29.00 and Acute left-sided low back pain without sciatica M54.5 [facility] [address] [place] [id number] Nov, Chronic pruritus L29.9 ; Scratching T14.8XXA and Left hemiplegia G81.94 [place] [address] [place] [address] 97008 2546 Oct, Scratching T14.8XXA [place] [address] [place] [address] 34735 2546 Oct, Scratching T14.8XXA [facility] [id number] [place] [address] [phone] Oct, [facility] [id number] [place] [address] [id number] Sep, [facility] [address] [place] [address] 06461- 2546 Sep, [facility] [address] [place] [id number] Sep, Cellulitis of left lower extremity L03.116 [facility] [place] [address], [place] [address]- 4538 Sep, [facility] [place] [id number] [place] [address] 52825- 5566 Sep, [employer] [facility] [address] [place] [id number] Aug, Cellulitis of left lower extremity L03.116 [facility] [address] [place] [id number] Aug, Cellulitis of left lower extremity L03.116 and Lymphedema of left lower extremity I89.0 [place] [id number] [place] [address] [id number] Aug, [place] [id number] [place] [address] [phone]- 2596 Aug, Cellulitis of left lower extremity L03.116 ; Wheezing R06.2 and Sinus congestion R09.81 [facility] [id number] [place] [address] [id number] Aug, [place] [address] [place] [address] 96891- 7211 Aug, [place] [id number] [place] [address] 18953- 7702 Aug, [place] [address] [place] [address] 80851- 7524 Aug, [employer] [address] [place] [id number] Aug, Establishing care with new doctor, encounter for Z76.89 ; Type 2 diabetes mellitus with unspecified complications E11.8 ; custodial current use of insulin Z79.4 ; Left hemiplegia G81.94 ; Status post CVA Z86.73 ; Stage III chronic kidney disease N18.3 and Lymphedema of left lower extremity I89.0 IMMUNIZATIONS No Known Immunizations SOCIAL HISTORY Never Assessed REASON FOR VISIT Requests return call PLAN OF CARE VITAL SIGNS MEDICATIONS No [...]
--- OUTSIDE RECORDS SUMMARY | 2018-09-20 10:59 | XMS REPORT ---
Author Author JOSH THAYER [facility] Address [address] [place] [address] Care Team Providers Care State Comptroller Name Role Phone JOSH THAYER Unavailable PROBLEMS Type Condition ICD9-CM Code UWP58-[id number] Code Onset Dates Condition Status SNOMED Code Problem MCC current use of insulin Z79.4 Active 630998946 Problem Gastroesophageal reflux disease without esophagitis K21.9 Active 753296115 Problem Cellulitis of left lower extremity L03.116 Active 981493431 Problem Left hemiplegia G81.94 Active 638793147 Problem Type 2 diabetes mellitus with unspecified complications E11.8 Active 95229214 Problem Stage III chronic kidney disease N18.3 Active 728832123 Problem Lymphedema of left lower extremity I89.0 Active [id number] ALLERGIES No Information ENCOUNTERS Encounter Location Date Diagnosis [employer] [address] [place] [address] [phone] Mar, Lymphedema of left lower extremity I89.0 and Left hemiplegia G81.94 [place] [id number] [place] [address] 63810- 6763 Mar, [place] [address] [id number] [place] [address] 01306- 6582 Feb, [place] [address] [id number] [place] [address] 13437- 9010 Feb, [place] [id number] [place] [address] 94356- 2226 Feb, [employer] [address] [place] [address] [phone] Feb, Acute non-recurrent maxillary sinusitis J01.00 and Gastroesophageal reflux disease without esophagitis K21.9 [facility] [address] [address]- [address] Feb, [facility] [id number] [address] 2546 Feb, [facility] [employer] [address] [place] [id number] January, Cellulitis of right lower limb L03.115 and Cellulitis of left lower leg L03.116 [facility] [address] [place] [address] 42090- 2546 January, [facility] [id number] [place] [address] 88749- 2546 January, [facility] [employer] [address] [place] [id number] January, Acute superficial gastritis without hemorrhage K29.00 [place] [address] [place] [address] 35110 2546 Dec, [facility] [address] [place] [id number] Nov, Acute superficial gastritis without hemorrhage K29.00 and Acute left-sided low back pain without sciatica M54.5 [facility] [employer] [address] [place] [phone] Nov, Chronic pruritus L29.9 ; Scratching T14.8XXA and Left hemiplegia G81.94 [place] [address] [place] [address] 72051 2546 Oct, Scratching T14.8XXA [place] [address] [place] [address] 64813 2546 Oct, Scratching T14.8XXA [facility] [id number] [place] [address] [phone] Oct, [facility] [place] [id number] [place] [address] [phone] Sep, [facility] [address] [place] [address] 36107- 2546 Sep, [facility] [employer] [address] [place] [id number] Sep, Cellulitis of left lower extremity L03.116 [facility] [address] [address] Sep, [facility] [id number] [place] [address] 13400- 1436 Sep, [employer] [address] [place] [id number] Aug, Cellulitis of left lower extremity L03.116 [employer] [address] [place] [id number] Aug, Cellulitis of left lower extremity L03.116 and Lymphedema of left lower extremity I89.0 [place] [id number] [place] [address] [phone] Aug, [place] [id number] [place] [address] [phone]- 3966 Aug, Cellulitis of left lower extremity L03.116 ; Wheezing R06.2 and Sinus congestion R09.81 [facility] [place] [id number] [place] [address] [phone] Aug, [place] [id number] [place] [address] 63566- 6527 Aug, [place] [id number] [place] [address] 13518- 8081 Aug, [place] [address] [place] [address] [phone] Aug, [employer] [address] [place] [id number] Aug, Establishing care with new doctor, encounter [...] Frequency Start Date End Date Duration Status Guaifenesin-DM 100-10 MG/5ML Orally every 4 hrs 10 ml as needed 4h 13 Feb, 2018 Active RESULTS No Results PROCEDURES No Known [...]
--- OUTSIDE RECORDS SUMMARY | 2018-09-20 10:59 | XMS REPORT ---
Author Author HERMINIA YAO [facility] Address [address] [place] [address] Care Team Providers Care Kiln Mechanic Name Role Phone HERMINIA YAO Unavailable PROBLEMS Type Condition ICD9-CM Code WOM50-TE Code Onset Dates Condition Status SNOMED Code Problem alf current use of insulin Z79.4 Active 910253383 Problem Gastroesophageal reflux disease without esophagitis K21.9 Active 233970609 Problem Cellulitis of left lower extremity L03.116 Active 641606308 Problem Left hemiplegia G81.94 Active 871045396 Problem Type 2 diabetes mellitus with unspecified complications E11.8 Active 30206448 Problem Stage III chronic kidney disease N18.3 Active 673643668 Problem Lymphedema of left lower extremity I89.0 Active 87864067744701527 ALLERGIES No Information ENCOUNTERS Encounter Location Date Diagnosis [employer] [address] [place] [address] [phone] Mar, Lymphedema of left lower extremity I89.0 and Left hemiplegia G81.94 [place] [address] [place] [address] 06791- 0293 Mar, [facility] [address] [place] [address] 71394- 5155 Feb, [facility] [id number] [place] [address] 03407- 6732 13 Feb, 2018 [place] [id number] [place] [address] 37040- 1438 Feb, [employer] [address] [place] [id number] Feb, Acute non-recurrent maxillary sinusitis J01.00 and Gastroesophageal reflux disease without esophagitis K21.9 [facility] [id number] [place] [address] 47811- 9812 Feb, [facility] [address] [place] [address] 19599 2546 Feb, [employer] [address] [place] [id number] January, Cellulitis of right lower limb L03.115 and Cellulitis of left lower leg L03.116 [place] [address] [place] [address] 69000 2546 January, [facility] [id number] [place] [address] 90189 2546 January, [employer] [address] [place] [id number] January, Acute superficial gastritis without hemorrhage K29.00 [place] [address] [place] [address] 80804 2546 Dec, [employer] [address] [place] [id number] Nov, Acute superficial gastritis without hemorrhage K29.00 and Acute left-sided low back pain without sciatica M54.5 [facility] [address] [place] [id number] Nov, Chronic pruritus L29.9 ; Scratching T14.8XXA and Left hemiplegia G81.94 [place] [address] [place] [address] 19578 2546 Oct, Scratching T14.8XXA [place] [address] [place] [address] 47046- 0576 Oct, Scratching T14.8XXA [facility] [id number] [place] [address] [phone] Oct, [place] [id number] [place] [address] [id number] Sep, [facility] [id number] [place] [address] 71617- 2546 Sep, [employer] [address] [place] [id number] Sep, Cellulitis of left lower extremity L03.116 [facility] [address], [place] [address]- 3896 Sep, [facility] [address] [place] [address] 64956- 2886 Sep, [employer] [address] [place] [phone] Aug, Cellulitis of left lower extremity L03.116 [employer] [facility] [place] [phone] Aug, Cellulitis of left lower extremity L03.116 and Lymphedema of left lower extremity I89.0 [facility] [id number] [place] [address] [id number] Aug, [place] [address] [place] [address] 28872- 5856 Aug, Cellulitis of left lower extremity L03.116 ; Wheezing R06.2 and Sinus congestion R09.81 [facility] [id number] [place] [address] [phone] Aug, [place] [address] [place] [address] [phone] Aug, [place] [id number] [place] [address] [phone] Aug, [place] [address] [place] [address] 09941- 3826 Aug, [employer] 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
--- OUTSIDE RECORDS SUMMARY | 2018-09-20 11:00 | XMS REPORT ---
Author Author JOSH THAYER Organization [facility] Address [address] [place] [address] Care Team Providers Care Stack Clerk Name Role Phone JOSH THAYER Unavailable PROBLEMS Type Condition ICD9-CM Code UXB76-HP Code Onset Dates Condition Status SNOMED Code Problem jail current use of insulin Z79.4 Active 871705979 Problem Gastroesophageal reflux disease without esophagitis K21.9 Active 524802783 Problem Cellulitis of left lower extremity L03.116 Active 271411926 Problem Left hemiplegia G81.94 Active 007886919 Problem Type 2 diabetes mellitus with unspecified complications E11.8 Active 71275397 Problem Stage III chronic kidney disease N18.3 Active 110777560 Problem Lymphedema of left lower extremity I89.0 Active 86392767754451251 ALLERGIES Substance Reaction Event Type Date Status Bactrim DS renal failure Drug Allergy Aug, Active ENCOUNTERS Encounter Location Date Diagnosis [place] [address] 95182- 7541 Feb, [place] [address] [id number] [place] [address] 14416- 0130 Feb, [place] [address] 45135- 1455 Feb, [employer] [address] [place] [id number] Feb, Acute non-recurrent maxillary sinusitis J01.00 and Gastroesophageal reflux disease without esophagitis K21.9 [place] [address] 55563- 6778 Feb, [place] [address] 44043- 6695 Feb, [employer] [address] [place] [id number] January, Cellulitis of right lower limb L03.115 and Cellulitis of left lower leg L03.116 [facility] [address] [place] [address] 35021- 2876 January, [facility] [address] [place] [address] 73327- 3346 January, [facility] [employer] [address] [place] [id number] January, Acute superficial gastritis without hemorrhage K29.00 [facility] [address] [place] [address] 67804- 9926 Dec, [employer] [address] [place] [id number] Nov, Acute superficial gastritis without hemorrhage K29.00 and Acute left-sided low back pain without sciatica M54.5 [facility] [address] [place] [id number] Nov, Chronic pruritus L29.9 ; Scratching T14.8XXA and Left hemiplegia G81.94 [facility] [address] [id number] [place] [address] 18960- 8756 Oct, Scratching T14.8XXA [facility] [id number] [place] [address] 29807- 7646 Oct, Scratching T14.8XXA [facility] [id number] [place] [address] [phone] Oct, [facility] [id number] [place] [address] [id number] Sep, [facility] [address] [place] [address] 53974 2546 Sep, [employer] [address] [place] [id number] Sep, Cellulitis of left lower extremity L03.116 [facility] [address] [place] [address] 62920 2546 Sep, [facility] [address] [id number] [place] [address] 69561 2546 Sep, [facility] [address] [place] [id number] Aug, Cellulitis of left lower extremity L03.116 [employer] [address] [place] [id number] Aug, Cellulitis of left lower extremity L03.116 and Lymphedema of left lower extremity I89.0 [facility] [id number] [place] [address] [phone] Aug, [facility] [id number] [place] [address] 00868 2546 Aug, Cellulitis of left lower extremity L03.116 ; Wheezing R06.2 and Sinus congestion R09.81 [facility] [id number] [place] [address] [id number] Aug, [place] [id number] [place] [address] 03559- 4926 Aug, [place] [address] [place] [address] [id number] [place] [address] 52136 2546 Aug, [place] [id number] [place] [address] 20267- 9521 Aug, [employer] [facility] [place] [phone] Aug, Establishing care with new doctor, encounter for Z76.89 ; Type 2 diabetes mellitus with unspecified complications E11.8 ; 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 ; Left hemiplegia G81.94 ; Status post CVA Z86.73 ; Stage III chronic kidney disease N18.3 and Lymphedema of left lower extremity I89.0 IMMUNIZATIONS No Known Immunizations SOCIAL HISTORY Never Assessed REASON FOR VISIT New patient PLAN OF CARE Activity Details Follow Up prn Reason: VITAL SIGNS MEDICATIONS Medication Instructions Dosage Frequency Start Date End Date Duration Status Metoprolol Succinate ER 100 MG Orally Once a day 1 tablet 24h Active Cranberry 1000 MG Orally Once a day 1 tablet with meals 24h Active GoodSense Hemorrhoidal 0.25-14-74.9 % Active Victoza 18 MG/3ML Subcutaneous Once a day 1.8mg 24h Active Dulcolax 10 MG Rectal Once a day 1 suppository as needed 24h Active Symbicort 160-4.5 MCG/ACT Inhalation Twice a day 2 puffs 12h Active Plavix 75 MG Orally Once a day 1 tablet 24h Active Hydrocortisone 1 % Rectal Once a day 1 application to affected area 24h Active Super B Complex Active Onglyza 2.5 MG Orally Once a day 1 tablet 24h Active Norvasc 5 MG Orally Once a day 1 tablet 24h Active NovoLog 100 UNIT/ML Subcutaneous 4 times a day sliding scale 6h Active Melatonin 3 MG Orally Once a day 1 tablet at bedtime 24h Active Desitin 13 % Externally every shift 1 application to affected area Active Blood Sugar 360 - Orally as needed 1 capsule Active Valerian 530 MG Orally Once a day 1 capsule before bedtime as needed 24h Active Aspirin Adult Low Dose 81 MG Orally Once a day 1 tablet 24h Active Protonix 20 MG Orally Once a day 1 tablet 24h Active Levemir 100 UNIT/ML Subcutaneous 2 times a day 40 units 12h Active Cholecalciferol 5000 UNIT Orally Once a day 1 capsule 24h Active Methylsulfonylmethane 1000 MG Orally Once a day 2 tablets 24h Active Cinnamon 500 mg Orally Once a day 2 tablets 24h Active Tylenol Extra Strength 500 MG Orally every 6 hrs 2 tablets as needed 6h Active Endur-Acin 500 MG Orally Once a day 1 tablet with food 24h Active Lipitor 20 MG Orally Once a day 1 tablet 24h Active Essential Balance - Orally 3 times a day 1 tablet 8h Active Urecholine 10 mg Orally 2 times a day 1 tablet after meals 12h Active Magnesium Hydroxide 400 MG/5ML Orally daily 30 ml as needed 24h Active Celexa 10 MG Orally Once a day 1 tablet 24h Active Boundary Nasal Jessup 0.65 % Nasally every 2 hrs 2 sprays in each nostril as needed Active HydrOXYzine HCl 25 MG Orally every 8 hrs 1 tablet as needed 8h Active Abernathy 3 1200 MG Orally Once a day 1 capsule 24h Active RESULTS No Results PROCEDURES Procedure Date Ordered Result Body Site [facility] VISIT ESTABLISHED PATIENT Aug 19, 2017 INSTRUCTIONS MEDICATIONS ADMINISTERED No Known Medications [...]
--- OUTSIDE RECORDS SUMMARY | 2018-09-20 11:00 | XMS REPORT ---
Author Author JOSH THAYER Organization [facility] Address [address] [place] [address] Care Team Providers Care Forestry Patrolman Name Role Phone JOSH THAYER Unavailable PROBLEMS Type Condition ICD9-CM Code IXK57-TZ Code Onset Dates Condition Status SNOMED Code Problem senior care current use of insulin Z79.4 Active 229766638 Problem Gastroesophageal reflux disease without esophagitis K21.9 Active 819926167 Problem Cellulitis of left lower extremity L03.116 Active 899707550 Problem Left hemiplegia G81.94 Active 002592093 Problem Type 2 diabetes mellitus with unspecified complications E11.8 Active 86395743 Problem Stage III chronic kidney disease N18.3 Active 699648932 Problem Lymphedema of left lower extremity I89.0 Active 35698137227878760 ALLERGIES No Information ENCOUNTERS Encounter Location Date Diagnosis [place] [id number] [place] [address] 66109- 0805 Feb, [place] [address] 84457- 8316 Feb, [place] [id number] [place] [address] 76588- 3940 Feb, [employer] [address] [place] [id number] Feb, Acute non-recurrent maxillary sinusitis J01.00 and Gastroesophageal reflux disease without esophagitis K21.9 [place] [address] 03974- 1582 Feb, [place] [address] 41193- 8048 Feb, [employer] [address] [place] [id number] January, Cellulitis of right lower limb L03.115 and Cellulitis of left lower leg L03.116 [facility] [address] [place] [address] 67031- 1871 January, [facility] [id number] [place] [address] 49594- 6186 January, [facility] [address] [place] [id number] January, Acute superficial gastritis without hemorrhage K29.00 [facility] [id number] [place] [address] 72242- 9257 Dec, [facility] [employer] [address] [place] [id number] Nov, Acute superficial gastritis without hemorrhage K29.00 and Acute left-sided low back pain without sciatica M54.5 [facility] [address] [place] [id number] Nov, Chronic pruritus L29.9 ; Scratching T14.8XXA and Left hemiplegia G81.94 [facility] [id number] [place] [address] 22851- 5746 Oct, Scratching T14.8XXA [facility] [id number] [place] [address] 01461- 2805 Oct, Scratching T14.8XXA [facility] [id number] [place] [address] [id number] Oct, [facility] [id number] [place] [address] [id number] Sep, [facility] [address] [place] [address] 68505- 7316 Sep, [facility] [employer] [address] [place] [id number] Sep, Cellulitis of left lower extremity L03.116 [facility] [address] [place] [address] 41326- 4566 Sep, [facility] [address] [place] [address] 61999- 2161 Sep, [facility] [employer] [address] [place] [id number] Aug, Cellulitis of left lower extremity L03.116 [employer] [address] [place] [id number] Aug, Cellulitis of left lower extremity L03.116 and Lymphedema of left lower extremity I89.0 [facility] [id number] [place] [address] [id number] Aug, [facility] [id number] [place] [address] 30966- 8486 Aug, Cellulitis of left lower extremity L03.116 ; Wheezing R06.2 and Sinus congestion R09.81 [facility] [address] [id number] Aug, [facility] [address] [place] [address] 01034- 0456 Aug, [facility] [id number] [place] [address] 54454- 7436 Aug, [facility] [address] [place] [address] 02854- 6286 Aug, [employer] 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 ; Left hemiplegia G81.94 ; Status post CVA Z86.73 ; Stage III chronic kidney disease N18.3 and Lymphedema of left lower extremity I89.0 IMMUNIZATIONS No Known Immunizations SOCIAL HISTORY Never Assessed REASON FOR VISIT Routine visit PLAN OF CARE Activity Details Follow Up prn Reason: VITAL SIGNS MEDICATIONS Medication Instructions Dosage Frequency Start Date End Date Duration Status Neurontin 300 MG Orally 2 times a day 1 capsule at bdtime for 7 days then 1 tab 12h Oct, Active RESULTS No Results PROCEDURES Procedure Date Ordered Result Body Site Minor complication (15 mins) November 23, 2017 INSTRUCTIONS MEDICATIONS ADMINISTERED No Known Medications [...]
--- OUTSIDE RECORDS SUMMARY | 2018-09-20 11:00 | XMS REPORT ---
Author Author JOSH THAYER Organization [facility] Address [address] [place] [address] Care Team Providers Care Design Engineer Products Name Role Phone JOSH THAYER Unavailable PROBLEMS Type Condition ICD9-CM Code [id number] Code Onset Dates Condition Status SNOMED Code Problem senior living current use of insulin Z79.4 Active 162766423 Problem Gastroesophageal reflux disease without esophagitis K21.9 Active 318189555 Problem Cellulitis of left lower extremity L03.116 Active 004076212 Problem Left hemiplegia G81.94 Active 819750500 Problem Type 2 diabetes mellitus with unspecified complications E11.8 Active 73919113 Problem Stage III chronic kidney disease N18.3 Active 102496470 Problem Lymphedema of left lower extremity I89.0 Active [id number] ALLERGIES No Information ENCOUNTERS Encounter Location Date Diagnosis [place] [id number] [place] [address] 98644- 3871 Feb, [place] [address] 57586- 8389 Feb, [place] [id number] [place] [address] 77199- 7586 Feb, [facility] [address] [place] [id number] Feb, Acute non-recurrent maxillary sinusitis J01.00 and Gastroesophageal reflux disease without esophagitis K21.9 [place] [address] 82485- 3828 Feb, [place] [address] 87545- 7583 Feb, [employer] [facility] [address] [place] [id number] January, Cellulitis of right lower limb L03.115 and Cellulitis of left lower leg L03.116 [facility] [address] [place] [address] 87353- 7444 January, [facility] [id number] [place] [address] 47110- 4876 January, [facility] [address] [place] [id number] January, Acute superficial gastritis without hemorrhage K29.00 [facility] [id number] [place] [address] 73435- 2108 Dec, [facility] [address] [place] [id number] Nov, Acute superficial gastritis without hemorrhage K29.00 and Acute left-sided low back pain without sciatica M54.5 [facility] [address] [place] [id number] Nov, Chronic pruritus L29.9 ; Scratching T14.8XXA and Left hemiplegia G81.94 [facility] [id number] [place] [address] 46850- 4686 Oct, Scratching T14.8XXA [facility] [id number] [place] [address] 27127- 8693 Oct, Scratching T14.8XXA [facility] [id number] [place] [address] [phone] Oct, [facility] [id number] [place] [address] [id number] Sep, [facility] [address] [place] [address] 54288- 1906 Sep, [facility] [address] [place] [id number] Sep, Cellulitis of left lower extremity L03.116 [facility] [address] [place] [address] 03474- 6436 Sep, [facility] [address] [place] [address] 09494- 3323 Sep, [facility] [address] [place] [id number] Aug, Cellulitis of left lower extremity L03.116 [facility] [address] [place] [id number] Aug, Cellulitis of left lower extremity L03.116 and Lymphedema of left lower extremity I89.0 [facility] [id number] [place] [address] [id number] Aug, [facility] [id number] [place] [address] 34036- 8136 Aug, Cellulitis of left lower extremity L03.116 ; Wheezing R06.2 and Sinus congestion R09.81 [facility] [id number] [place] [address] [id number] Aug, [facility] [address] [place] [address] 89349- 2332 Aug, [place] [id number] [place] [address] 44246- 1606 Aug, [facility] [id number] [place] [address] 53291- 7357 Aug, [facility] [place] [id number] Aug, Establishing care with new doctor, encounter for Z76.89 ; Type 2 diabetes mellitus with unspecified complications E11.8 ; 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 ; Left hemiplegia G81.94 ; Status post CVA Z86.73 ; Stage III chronic kidney disease N18.3 and Lymphedema of left lower extremity I89.0 IMMUNIZATIONS No Known Immunizations SOCIAL HISTORY Never Assessed REASON FOR VISIT Antibiotic follow up PLAN OF CARE Activity Details Follow Up 2 - 3 Days Reason: VITAL SIGNS MEDICATIONS Medication Instructions Dosage Frequency Start Date End Date Duration Status Cranberry 1000 MG Orally Once a day 1 tablet with meals 24h Active NovoLog 100 UNIT/ML Subcutaneous 4 times a day sliding scale 6h Active Super B Complex Active Lipitor 20 MG Orally Once a day 1 tablet 24h Active Protonix 20 MG Orally Once a day 1 tablet 24h Active Levemir 100 UNIT/ML Subcutaneous 2 times a day 40 units 12h Active Essential Balance - Orally 3 times a day 1 tablet 8h Active Hydrocodone-Acetaminophen 5-325 MG Orally every 6 hrs 1-2 tablet as needed 6h 19 Aug, 2017 Active GoodSense Hemorrhoidal 0.25-14-74.9 % Active Hydrocortisone 1 % Rectal Once a day 1 application to affected area 24h Active Desitin 13 % Externally every shift 1 application to affected area Active Dulcolax 10 MG Rectal Once a day 1 suppository as needed 24h Active Blood Sugar 360 - Orally as needed 1 capsule Active Tylenol Extra Strength 500 MG Orally every 6 hrs 2 tablets as needed 6h Active Celexa 10 MG Orally Once a day 1 tablet 24h Active Norvasc 5 MG Orally Once a day 1 tablet 24h Active Methylsulfonylmethane 1000 MG Orally Once a day 2 tablets 24h Active Metoprolol Succinate ER 100 MG Orally Once a day 1 tablet 24h Active HydrOXYzine HCl 25 MG Orally every 8 hrs 1 tablet as needed 8h Active Valerian 530 MG Orally Once a day 1 capsule before bedtime as needed 24h Active [place] 3 1200 MG Orally Once a day 1 capsule 24h Active Aspirin Adult Low Dose 81 MG Orally Once a day 1 tablet 24h Active Kennan Nasal [place] 0.65 % Nasally every 2 hrs 2 sprays in each nostril as needed Active Melatonin 3 MG Orally Once a day 1 tablet at bedtime 24h Active Plavix 75 MG Orally Once a day 1 tablet 24h Active Urecholine 10 mg Orally 2 times a day 1 tablet after meals 12h Active Symbicort 160-4.5 MCG/ACT Inhalation Twice a day 2 puffs 12h Active Magnesium Hydroxide 400 MG/5ML Orally daily 30 ml as needed 24h Active Ferrex 150 150 MG Orally Once a day 1 capsule 24h Active Onglyza 2.5 MG Orally Once a day 1 tablet 24h Active Cinnamon 500 mg Orally Once a day 2 tablets 24h Active Victoza 18 MG/3ML Subcutaneous Once a day 1.8mg 24h Active Cholecalciferol 5000 UNIT Orally Once a day 1 capsule 24h Active Endur-Acin 500 MG Orally Once a day 1 tablet with food 24h Active RESULTS No Results PROCEDURES Procedure Date Ordered Result Body Site Minor complication (15 mins) Sep 07, 2017 INSTRUCTIONS MEDICATIONS ADMINISTERED No Known [...]
--- OUTSIDE RECORDS SUMMARY | 2018-09-20 11:00 | XMS REPORT ---
Author Author JOSH THAYER [facility] Address [address] [place] [address] Care Team Providers Care Children'S Lunchroom Supervisor Name Role Phone JOSH THAYER Unavailable PROBLEMS Type Condition ICD9-CM Code [id number] Code Onset Dates Condition Status SNOMED Code Problem shelter current use of insulin Z79.4 Active 618302100 Problem Gastroesophageal reflux disease without esophagitis K21.9 Active 917255454 Problem Cellulitis of left lower extremity L03.116 Active 793789123 Problem Left hemiplegia G81.94 Active 498466183 Problem Type 2 diabetes mellitus with unspecified complications E11.8 Active 78049550 Problem Stage III chronic kidney disease N18.3 Active 945145136 Problem Lymphedema of left lower extremity I89.0 Active [id number] ALLERGIES No Information ENCOUNTERS Encounter Location Date Diagnosis [facility] [address] [place] [id number] Mar, Lymphedema of left lower extremity I89.0 and Left hemiplegia G81.94 [place] [id number] [place] [address] 47887- 9329 Mar, [place] [id number] [place] [address] 89723- 8284 Feb, [place] [id number] [place] [address] 87418- 1265 Feb, [place] [id number] [place] [address] 98307- 6581 Feb, [facility] [address] [place] [address] [id number] Feb, Acute non-recurrent maxillary sinusitis J01.00 and Gastroesophageal reflux disease without esophagitis K21.9 [facility] [address] 6[address]40- 8112 Feb, [facility] [id number] [address] 2546 Feb, [facility] [address] [place] [id number] January, Cellulitis of right lower limb L03.115 and Cellulitis of left lower leg L03.116 [facility] [address] [place] [address] 85340- 2546 January, [facility] [id number] [place] [address] 61447- 2546 January, [facility] [address] [place] [id number] January, Acute superficial gastritis without hemorrhage K29.00 [place] [address] [place] [address] 91815 2546 Dec, [facility] [address] [place] [id number] Nov, Acute superficial gastritis without hemorrhage K29.00 and Acute left-sided low back pain without sciatica M54.5 [facility] [address] [place] [id number] Nov, Chronic pruritus L29.9 ; Scratching T14.8XXA and Left hemiplegia G81.94 [place] [address] [place] [address] 06192 2546 Oct, Scratching T14.8XXA [place] [address] [place] [address] 47506 2546 Oct, [address] T14.8[address] [facility] [id number] [place] [id number] Oct, [facility] [id number] [place] [address] [id number] Sep, [facility] [address] [place] [address] 60877- 2546 Sep, [facility] [address] [place] [id number] Sep, Cellulitis of left lower extremity L03.116 [facility] [address] [address]- 4046 Sep, [facility] [id number] [place] [address] 16361- 9676 Sep, [facility] [address] [place] [id number] Aug, Cellulitis of left lower extremity L03.116 [facility] [place] [id number] Aug, Cellulitis of left lower extremity L03.116 and Lymphedema of left lower extremity I89.0 [place] [id number] [place] [address] [id number] Aug, [place] [id number] [place] [address] [phone]- 1136 Aug, Cellulitis of left lower extremity L03.116 ; Wheezing R06.[address] [facility] [id number] [place] [address] [id number] Aug, [place] [address] [place] [address] 73196- 2334 Aug, [place] [id number] [place] [address] [phone]- 3755 Aug, [place] [address] [place] [address] [phone]- 9567 Aug, [facility] [place] [id number] Aug, Establishing care with new doctor, encounter for Z76.89 ; Type 2 diabetes mellitus with unspecified complications E11.8 ; shelter current use of insulin Z79.4 ; Left hemiplegia G81.94 ; Status post CVA Z86.73 ; Stage III chronic kidney disease N18.3 and Lymphedema of left lower extremity I89.0 IMMUNIZATIONS No Known Immunizations SOCIAL HISTORY Never Assessed REASON FOR VISIT Controlled Med Refill PLAN OF CARE VITAL SIGNS MEDICATIONS Medication Instructions Dosage Frequency Start Date End Date Duration Status Hydrocodone-Acetaminophen 5-325 MG Orally every 6 hrs 1 tablet as needed 6h January, Active RESULTS No Results PROCEDURES No Known [...]
--- OUTSIDE RECORDS SUMMARY | 2018-09-20 11:00 | XMS REPORT ---
Author Author JOSH THAYER [facility] Address [address] [place] [address] Care Team Providers Care Vending Machine Assembler Name Role Phone JOSH THAYER Unavailable PROBLEMS Type Condition ICD9-CM Code [id number] Code Onset Dates Condition Status SNOMED Code Problem snf current use of insulin Z79.4 Active 901381993 Problem Gastroesophageal reflux disease without esophagitis K21.9 Active 649791395 Problem Cellulitis of left lower extremity L03.116 Active 600433799 Problem Left hemiplegia G81.94 Active 850547289 Problem Type 2 diabetes mellitus with unspecified complications E11.8 Active 77869188 Problem Stage III chronic kidney disease N18.3 Active 824034863 Problem Lymphedema of left lower extremity I89.0 Active 19245444752922630 ALLERGIES No Information ENCOUNTERS Encounter Location Date Diagnosis [facility] [address] [place] [id number] Mar, Lymphedema of left lower extremity I89.0 and Left hemiplegia G81.94 [place] [id number] [place] [address] 36475- 7773 Mar, [place] [id number] [place] [address] 25476- 8448 Feb, [place] [id number] [place] [address] 78677- 7881 Feb, [place] [id number] [place] [address] 29502- 9267 Feb, [facility] [address] [place] [address] [phone] Feb, Acute non-recurrent maxillary sinusitis J01.00 and Gastroesophageal reflux disease without esophagitis K21.9 [facility] [address] 81690- 3457 Feb, [facility] [id number], [place] [address] 2546 Feb, [facility] [address] [place] [id number] January, Cellulitis of right lower limb L03.115 and Cellulitis of left lower leg L03.116 [facility] [address] [place] [address] 68848- 2546 January, [facility] [id number] [place] [address] 80852- 2546 January, [facility] [address] [place] [id number] January, Acute superficial gastritis without hemorrhage K29.00 [place] [address] [place] [address] 17991 2546 Dec, [facility] [address] [place] [id number] Nov, Acute superficial gastritis without hemorrhage K29.00 and Acute left-sided low back pain without sciatica M54.5 [facility] [address] [place] [id number] Nov, Chronic pruritus L29.9 ; Scratching T14.8XXA and Left hemiplegia G81.94 [place] [address] [place] [address] 34390 2546 Oct, Scratching T14.8XXA [place] [address] [place] [address] 88056 2546 Oct, Scratching T14.8XXA [facility] [id number] [place] [address] [id number] Oct, [facility] [id number] [place] [address] [id number] Sep, [facility] [address] [place] [address] 98145- 2546 Sep, [facility] [address] [place] [id number] Sep, Cellulitis of left lower extremity L03.116 [facility] [address], [place] [address]- 9676 Sep, [facility] [id number] [place] [address] 67104- 9666 Sep, [facility] [address] [place] [id number] Aug, Cellulitis of left lower extremity L03.116 [facility] [place] [id number] Aug, Cellulitis of left lower extremity L03.116 and Lymphedema of left lower extremity I89.0 [place] [id number] [place] [address] [id number] Aug, [place] [id number] [place] [address] [phone]- 9826 Aug, Cellulitis of left lower extremity L03.116 ; Wheezing R06.2 and Sinus congestion R09.81 [facility] [id number] [place] [address] [id number] Aug, [place] [address] [place] [address] 14971- 6071 Aug, [place] [id number] [place] [address] 66404- 2227 Aug, [place] [address] [place] [address] [phone]- [phone] Aug, [facility] [address] [place] [id number] Aug, Establishing care with new doctor, encounter for Z76.89 ; Type 2 diabetes mellitus with unspecified complications E11.8 ; snf current use of insulin Z79.4 ; Left hemiplegia G81.94 ; Status post CVA Z86.73 ; Stage III chronic kidney disease N18.3 and Lymphedema of left lower extremity I89.0 IMMUNIZATIONS No Known Immunizations SOCIAL HISTORY Never Assessed REASON FOR VISIT Omeprazole PLAN OF CARE VITAL SIGNS MEDICATIONS No [...]
--- OUTSIDE RECORDS SUMMARY | 2018-09-20 11:00 | XMS REPORT ---
Author Author JOSH THAYER Organization [facility] Address [address] [place] [address] Care Team Providers Care Sales Support Engineer Name Role Phone JOSH THAYER Unavailable PROBLEMS Type Condition ICD9-CM Code [id number] Code Onset Dates Condition Status SNOMED Code Problem detention current use of insulin Z79.4 Active 557130332 Problem Gastroesophageal reflux disease without esophagitis K21.9 Active 397794864 Problem Cellulitis of left lower extremity L03.116 Active 223498975 Problem Left hemiplegia G81.94 Active 661738626 Problem Type 2 diabetes mellitus with unspecified complications E11.8 Active 31464825 Problem Stage III chronic kidney disease N18.3 Active 163411971 Problem Lymphedema of left lower extremity I89.0 Active 88410619992413812 ALLERGIES No Information ENCOUNTERS Encounter Location Date Diagnosis [place] [id number] [place] [address] [phone]- [phone] Feb, [place] [address] 7[address]56- 6706 Feb, [place] [id number] [place] [address] 78247- 2314 Feb, [employer] [address] [place] [id number] Feb, Acute non-recurrent maxillary sinusitis J01.00 and Gastroesophageal reflux disease without esophagitis K21.9 [place] [address] 92589- 9471 Feb, [place] [address] 25884- 3273 Feb, [employer] [address] [place] [id number] January, Cellulitis of right lower limb L03.115 and Cellulitis of left lower leg L03.116 [facility] [address] [place] [address] 85101- 0706 January, [facility] [id number] [place] [address] 31667- [phone] January, [employer] [address] [place], [place] [id number] January, Acute superficial gastritis without hemorrhage K29.00 [facility] [id number] [place] [address] 53201- 1066 Dec, [employer] [address] [place] [id number] Nov, Acute superficial gastritis without hemorrhage K29.00 and Acute left-sided low back pain without sciatica M54.5 [employer] [address] [place] [id number] Nov, Chronic pruritus L29.9 ; Scratching T14.8XXA and Left hemiplegia G81.94 [facility] [id number] [place] [address] 74071- 2246 Oct, Scratching T14.8XXA [facility] [id number] [place] [address] 03679- 6583 Oct, Scratching T14.8XXA [facility] [id number] [place] [phone] Oct, [facility] [id number] [place] [address] [phone] Sep, [facility] [address] [place] [address] 49544- 5106 Sep, [employer] [address] [place] [id number] Sep, Cellulitis of left lower extremity L03.116 [facility] [address] [place] [address] 26574- 5346 Sep, [facility] [address] [place] [address] 17127- [phone] Sep, [employer] [address] [place] [id number] Aug, Cellulitis of left lower extremity L03.116 [employer] [address] [place] [id number] Aug, Cellulitis of left lower extremity L03.116 and Lymphedema of left lower extremity I89.0 [facility] [id number] [place] [address] [phone] Aug, [place] [id number] [place] [address] 81062- 8326 Aug, Cellulitis of left lower extremity L03.116 ; Wheezing R06.2 and Sinus congestion R09.81 [facility] [id number] [place] [address] [phone] Aug, [facility] [address] [place] [address] 80868- [phone] Aug, [place] [id number] [place] [address] 79751- [phone] Aug, [place] [address] [place] [address] [phone]- [phone] Aug, [employer] [facility] [place] [phone] Aug, Establishing care with new doctor, encounter for Z76.89 ; Type 2 diabetes mellitus with unspecified complications E11.8 ; 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 ; Left hemiplegia G81.94 ; Status post CVA Z86.73 ; Stage III chronic kidney disease N18.3 and Lymphedema of left lower extremity I89.0 IMMUNIZATIONS No Known Immunizations SOCIAL HISTORY Never Assessed REASON FOR VISIT Cellulitis f/u PLAN OF CARE Activity Details Follow Up prn Reason: VITAL SIGNS MEDICATIONS Medication Instructions Dosage Frequency Start Date End Date Duration Status Cholecalciferol 5000 UNIT Orally Once a day 1 capsule 24h Active NovoLog 100 UNIT/ML Subcutaneous 4 times a day sliding scale 6h Active Protonix 20 MG Orally Once a day 1 tablet 24h Active Magnesium Hydroxide 400 MG/5ML Orally daily 30 ml as needed 24h Active Plavix 75 MG Orally Once a day 1 tablet 24h Active Essential Balance - Orally 3 times a day 1 tablet 8h Active Endur-Acin 500 MG Orally Once a day 1 tablet with food 24h Active Victoza 18 MG/3ML Subcutaneous Once a day 1.8mg 24h Active HydrOXYzine HCl 25 MG Orally every 8 hrs 1 tablet as needed 8h Active GoodSense Hemorrhoidal 0.25-14-74.9 % Active Cinnamon 500 mg Orally Once a day 2 tablets 24h Active Desitin 13 % Externally every shift 1 application to affected area Active Aspirin Adult Low Dose 81 MG Orally Once a day 1 tablet 24h Active Symbicort 160-4.5 MCG/ACT Inhalation Twice a day 2 puffs 12h Active Celexa 10 MG Orally Once a day 1 tablet 24h Active Metoprolol Succinate ER 100 MG Orally Once a day 1 tablet 24h Active Methylsulfonylmethane 1000 MG Orally Once a day 2 tablets 24h Active Lipitor 20 MG Orally Once a day 1 tablet 24h Active Hydrocortisone 1 % Rectal Once a day 1 application to affected area 24h Active Tylenol Extra Strength 500 MG Orally every 6 hrs 2 tablets as needed 6h Active Rye 3 1200 MG Orally Once a day 1 capsule 24h Active Ferrous Gluconate 240 (27 Fe) MG Orally Once a day 1 tab 24h Aug, Active Norvasc 5 MG Orally Once a day 1 tablet 24h Active Levemir 100 UNIT/ML Subcutaneous 2 times a day 40 units 12h Active Onglyza 2.5 MG Orally Once a day 1 tablet 24h Active Hydrocodone-Acetaminophen 5-325 MG Orally every 6 hrs 1-2 tablet as needed 6h Aug, Active Super B Complex Active Melatonin 3 MG Orally Once a day 1 tablet at bedtime 24h Active Urecholine 10 mg Orally 2 times a day 1 tablet after meals 12h Active Aline Nasal [place] 0.65 % Nasally every 2 hrs 2 sprays in each nostril as needed Active Dulcolax 10 MG Rectal Once a day 1 suppository as needed 24h Active Valerian 530 MG Orally Once a day 1 capsule before bedtime as needed 24h Active Blood Sugar 360 - Orally as needed 1 capsule Active Cranberry 1000 MG Orally Once a day 1 tablet with meals 24h Active RESULTS No Results PROCEDURES Procedure Date Ordered Result Body Site Stable Visit (10 minutes) Sep 21, 2017 INSTRUCTIONS MEDICATIONS ADMINISTERED No Known Medications [...]
--- OUTSIDE RECORDS SUMMARY | 2018-09-20 11:01 | XMS REPORT ---
Author Author JOSH THAYER Organization [facility] Address [address] [place] [address] Care Team Providers Care Media Intern Name Role Phone JOSH THAYER Unavailable PROBLEMS Type Condition ICD9-CM Code ANM44-JA Code Onset Dates Condition Status SNOMED Code Problem Cellulitis of left lower extremity L03.116 Active 092339920 Problem Stage III chronic kidney disease N18.3 Active 592184570 Problem Type 2 diabetes mellitus with unspecified complications E11.8 Active 64361269 Problem intermediate current use of insulin Z79.4 Active 434300455 Problem Lymphedema of left lower extremity I89.0 Active 73999521140770025 Problem Left hemiplegia G81.94 Active 441426939 ALLERGIES No Information ENCOUNTERS Encounter Location Date Diagnosis [place] [id number] [place] [address] [phone]- [phone] Feb, [place] [id number] [place] [address] [phone] 1556 Feb, [employer] [facility] [address] [place] [id number] January, Cellulitis of right lower limb L03.115 and Cellulitis of left lower leg L03.116 [facility] [address] [place] [address] 07708- [phone] January, [place] [address] [place] [address] [phone] January, [employer] [address] [place] [id number] January, Acute superficial gastritis without hemorrhage K29.00 [place] [address] [place] [address] 83188- 8135 Dec, [employer] [address] [place] [id number] Nov, Acute superficial gastritis without hemorrhage K29.00 and Acute left-sided low back pain without sciatica M54.5 [facility] [employer] [address] [place] [phone] Nov, Chronic pruritus L29.9 ; Scratching T14.8XXA and Left hemiplegia G81.94 [facility] [address] [place] [address] 93302- 3613 Oct, Scratching T14.8XXA [facility] [id number] [place] [address] [phone] Oct, Scratching T14.8XXA [facility] [address] [id number] Oct, [facility] [id number] [place] [address] [phone] Sep, [facility] [id number] [place] [address] [phone] Sep, [facility] [employer] [address] [place] [id number] Sep, Cellulitis of left lower extremity L03.116 [facility] [id number] [place] [address] 42549- 6456 Sep, [facility] [id number] [place] [address] 99864- 0760 Sep, [facility] [employer] [address] [place] [id number] Aug, Cellulitis of left lower extremity L03.116 [facility] [employer] [address] [place] [id number] Aug, Cellulitis of left lower extremity L03.116 and Lymphedema of left lower extremity I89.0 [facility] [id number] [place] [phone] Aug, [facility] [id number] [place] [address] 53600- 8096 Aug, Cellulitis of left lower extremity L03.116 ; Wheezing R06.2 and Sinus congestion R09.81 [facility] [address] [id number] [id number] Aug, [facility] [address] [facility] [id number] [phone] [phone] Aug, [facility] [address] [facility] [id number] [phone]268 Aug, [facility] [address] [facility] [id number] [phone] Aug, [employer] 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
--- OUTSIDE RECORDS SUMMARY | 2018-09-20 11:01 | XMS REPORT ---
Author Author JOSH THAYER Organization [facility] Address [address] [place] [address] Care Team Providers Care Stock Driver Name Role Phone JOSH THAYER Unavailable PROBLEMS Type Condition ICD9-CM Code PVM28-TY Code Onset Dates Condition Status SNOMED Code Problem detention current use of insulin Z79.4 Active 524737783 Problem Gastroesophageal reflux disease without esophagitis K21.9 Active 194709550 Problem Cellulitis of left lower extremity L03.116 Active 741356527 Problem Left hemiplegia G81.94 Active 596545045 Problem Type 2 diabetes mellitus with unspecified complications E11.8 Active 24340371 Problem Stage III chronic kidney disease N18.3 Active 665794098 Problem Lymphedema of left lower extremity I89.0 Active [id number] ALLERGIES No Information ENCOUNTERS Encounter Location Date Diagnosis [place] [id number] [place] [address] 28814- 2819 Feb, [employer] [address] [place] [address] [phone] Feb, Acute non-recurrent maxillary sinusitis J01.00 and Gastroesophageal reflux disease without esophagitis K21.9 [place] [address] [place] [address] 23237- 3699 Feb, [place] [address] [place] [address] 72191- 1349 Feb, [employer] [address] [place] [id number] January, Cellulitis of right lower limb L03.115 and Cellulitis of left lower leg L03.116 [place] [id number] [place] [address] 05895- 5630 January, [place] [id number] [place] [address] 74866- 2546 January, [facility] [employer] [address] [place] [id number] January, Acute superficial gastritis without hemorrhage K29.00 [facility] [id number] [place] [address] 39022 2546 Dec, [employer] [address] [place] [id number] Nov, Acute superficial gastritis without hemorrhage K29.00 and Acute left-sided low back pain without sciatica M54.5 [facility] [employer] [address] [place] [id number] Nov, Chronic pruritus L29.9 ; Scratching T14.8XXA and Left hemiplegia G81.94 [facility] [id number] [place] [address] 15811 2546 Oct, Scratching T14.8XXA [facility] [id number] [place] [address] 38597 2546 Oct, [address] T14.8XX[address] [facility] [id number] [place] [address] [phone] Oct, [facility] [address] [phone] Sep, [facility] [address] [place] [address] 99793 2546 Sep, [facility] [employer] [address] [place] [id number] Sep, Cellulitis of left lower extremity L03.116 [facility] [address] [place] [address] 71428 2546 Sep, [facility] [id number] [place] [address] 30398 2546 Sep, [facility] [employer] [address] [place] [id number] Aug, Cellulitis of left lower extremity L03.116 [facility] [address] [place] [id number] Aug, Cellulitis of left lower extremity L03.116 and Lymphedema of left lower extremity I89.0 [facility] [id number] [id number] Aug, [facility] [address] [place] [address] [phone] Aug, Cellulitis of left lower extremity L03.116 ; Wheezing R06.[address] 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 ; Left hemiplegia G81.94 ; Status post CVA Z86.73 ; Stage III chronic kidney disease N18.3 and Lymphedema of left lower extremity I89.0 IMMUNIZATIONS No Known Immunizations SOCIAL HISTORY Never Assessed REASON FOR VISIT Hospital admit/DC PLAN OF CARE VITAL SIGNS MEDICATIONS Medication Instructions Dosage Frequency Start Date End Date Duration Status Roy 3 1200 MG Orally Once a day 1 capsule 24h Active Aspirin Adult Low Dose 81 MG Orally Once a day 1 tablet 24h Active Cinnamon 500 mg Orally Once a day 2 tablets 24h Active Hydrocodone-Acetaminophen 5-325 MG Orally every 6 hrs 1-2 tablet as needed 6h Aug, Active Cranberry 1000 MG Orally Once a day 1 tablet with meals 24h Active Symbicort 160-4.5 MCG/ACT Inhalation Twice a day 2 puffs 12h Active Super B Complex Active GoodSense Hemorrhoidal 0.25-14-74.9 % Active Protonix 20 MG Orally Once a day 1 tablet 24h Active Tylenol Extra Strength 500 MG Orally every 6 hrs 2 tablets as needed 6h Active Norvasc 5 MG Orally Once a day 1 tablet 24h Active [place] Nasal [place] 0.65 % Nasally every 2 hrs 2 sprays in each nostril as needed Active Lipitor 20 MG Orally Once a day 1 tablet 24h Active Desitin 13 % Externally every shift 1 application to affected area Active Methylsulfonylmethane 1000 MG Orally Once a day 2 tablets 24h Active Blood Sugar 360 - Orally as needed 1 capsule Active Urecholine 10 mg Orally 2 times a day 1 tablet after meals 12h Active Keflex 500 mg Orally 4 times a day 1 capsule 6h Aug, Aug, Active Plavix 75 MG Orally Once a day 1 tablet 24h Active Hydrocortisone 1 % Rectal Once a day 1 application to affected area 24h Active Celexa 10 MG Orally Once a day 1 tablet 24h Active Metoprolol Succinate ER 100 MG Orally Once a day 1 tablet 24h Active Cholecalciferol 5000 UNIT Orally Once a day 1 capsule 24h Active Victoza 18 MG/3ML Subcutaneous Once a day 1.8mg 24h Active Endur-Acin 500 MG Orally Once a day 1 tablet with food 24h Active HydrOXYzine HCl 25 MG Orally every 8 hrs 1 tablet as needed 8h Active Dulcolax 10 MG Rectal Once a day 1 suppository as needed 24h Active Valerian 530 MG Orally Once a day 1 capsule before bedtime as needed 24h Active Levemir 100 UNIT/ML Subcutaneous 2 times a day 40 units 12h Active Ferrex 150 150 MG Orally Once a day 1 capsule 24h Active NovoLog 100 UNIT/ML Subcutaneous 4 times a day sliding scale 6h Active Essential Balance - Orally 3 times a day 1 tablet 8h Active Melatonin 3 MG Orally Once a day 1 tablet at bedtime 24h Active Magnesium Hydroxide 400 MG/5ML Orally daily 30 ml as needed 24h Active Onglyza 2.5 MG Orally Once a day 1 tablet 24h Active RESULTS No Results PROCEDURES No [...]
--- OUTSIDE RECORDS SUMMARY | 2018-09-20 11:01 | XMS REPORT ---
Author Author JOSH THAYER Organization [facility] Address [address] [place] [address] Care Team Providers Care Navigating Officer Name Role Phone JOSH THAYER Unavailable PROBLEMS Type Condition ICD9-CM Code MQF69-ID Code Onset Dates Condition Status SNOMED Code Problem correction current use of insulin Z79.4 Active 036639655 Problem Gastroesophageal reflux disease without esophagitis K21.9 Active 067470225 Problem Cellulitis of left lower extremity L03.116 Active 135468652 Problem Left hemiplegia G81.94 Active 974231527 Problem Type 2 diabetes mellitus with unspecified complications E11.8 Active 81714549 Problem Stage III chronic kidney disease N18.3 Active 914422158 Problem Lymphedema of left lower extremity I89.0 Active [id number] ALLERGIES No Information ENCOUNTERS Encounter Location Date Diagnosis [place] [id number] [place] [address] 71962- 1511 Feb, [place] [address] 76843- 4389 Feb, [place] [id number] [place] [address] 36812- 8628 Feb, [employer] [address] [place] [id number] Feb, Acute non-recurrent maxillary sinusitis J01.00 and Gastroesophageal reflux disease without esophagitis K21.9 [place] [address] 69544- 2197 Feb, [place] [address] 99981- 8470 Feb, [employer] [address] [place] [id number] January, Cellulitis of right lower limb L03.115 and Cellulitis of left lower leg L03.116 [facility] [address] [place] [address] 53292- 2269 January, [facility] [id number] [place] [address] 39818- 2676 January, [employer] [address] [place] [id number] January, Acute superficial gastritis without hemorrhage K29.00 [facility] [id number] [place] [address] 57301- 6122 Dec, [employer] [facility] [address] [place] [id number] Nov, Acute superficial gastritis without hemorrhage K29.00 and Acute left-sided low back pain without sciatica M54.5 [facility] [address] [place] [id number] Nov, Chronic pruritus L29.9 ; Scratching T14.8XXA and Left hemiplegia G81.94 [facility] [id number] [place] [address] 39256- 4156 Oct, Scratching T14.8XXA [facility] [id number] [place] [address] 48869- 8140 Oct, Scratching T14.8XXA [facility] [id number] [place] [id number] Oct, [facility] [id number] [place] [id number] Sep, [facility] [address] [place] [address] 57803- 8896 Sep, [employer] [address] [place] [id number] Sep, Cellulitis of left lower extremity L03.116 [facility] [address] [place] [address] 80983- 3426 Sep, [facility] [address] [place] [address] 60743- 6836 Sep, [employer] [address] [place] [id number] Aug, Cellulitis of left lower extremity L03.116 [employer] [address] [place] [id number] Aug, Cellulitis of left lower extremity L03.116 and Lymphedema of left lower extremity I89.0 [facility] [id number] [place] [id number] Aug, [facility] [id number] [place] [address] 48453- 4786 Aug, Cellulitis of left lower extremity L03.116 ; Wheezing R06.2 and Sinus congestion R09.81 [facility] [id number] [place] [address] [phone], [facility] [address] [place] [address] 30124- 5367 Aug, [facility] [id number] [place] [address] 55254- 7446 Aug, 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 ; Left hemiplegia G81.94 ; Status post CVA Z86.73 ; Stage III chronic kidney disease N18.3 and Lymphedema of left lower extremity I89.0 IMMUNIZATIONS No Known Immunizations SOCIAL HISTORY Never Assessed REASON FOR VISIT cellulitis of leg PLAN OF CARE Activity Details Follow Up prn Reason: VITAL SIGNS MEDICATIONS Medication Instructions Dosage Frequency Start Date End Date Duration Status HydrOXYzine HCl 25 MG Orally every 8 hrs 1 tablet as needed 8h Active Symbicort 160-4.5 MCG/ACT Inhalation Twice a day 2 puffs 12h Active Valerian 530 MG Orally Once a day 1 capsule before bedtime as needed 24h Active NovoLog 100 UNIT/ML Subcutaneous 4 times a day sliding scale 6h Active Victoza 18 MG/3ML Subcutaneous Once a day 1.8mg 24h Active Magnesium Hydroxide 400 MG/5ML Orally daily 30 ml as needed 24h Active Metoprolol Succinate ER 100 MG Orally Once a day 1 tablet 24h Active Blood Sugar 360 - Orally as needed 1 capsule Active Lipitor 20 MG Orally Once a day 1 tablet 24h Active Norvasc 5 MG Orally Once a day 1 tablet 24h Active Levemir 100 UNIT/ML Subcutaneous 2 times a day 40 units 12h Active GoodSense Hemorrhoidal 0.25-14-74.9 % Active Endur-Acin 500 MG Orally Once a day 1 tablet with food 24h Active Hydrocodone-Acetaminophen 5-325 MG Orally every 6 hrs 1-2 tablet as needed 6h Aug, Active Cranberry 1000 MG Orally Once a day 1 tablet with meals 24h Active Plavix 75 MG Orally Once a day 1 tablet 24h Active Onglyza 2.5 MG Orally Once a day 1 tablet 24h Active Melatonin 3 MG Orally Once a day 1 tablet at bedtime 24h Active Methylsulfonylmethane 1000 MG Orally Once a day 2 tablets 24h Active Cholecalciferol 5000 UNIT Orally Once a day 1 capsule 24h Active Protonix 20 MG Orally Once a day 1 tablet 24h Active Dulcolax 10 MG Rectal Once a day 1 suppository as needed 24h Active Tylenol Extra Strength 500 MG Orally every 6 hrs 2 tablets as needed 6h Active Lassen Nasal [place] 0.65 % Nasally every 2 hrs 2 sprays in each nostril as needed Active Super B Complex Active Cinnamon 500 mg Orally Once a day 2 tablets 24h Active Ferrous Gluconate 240 (27 Fe) MG Orally Once a day 1 tab 24h Aug, Active Bimble 3 1200 MG Orally Once a day 1 capsule 24h Active Aspirin Adult Low Dose 81 MG Orally Once a day 1 tablet 24h Active Urecholine 10 mg Orally 2 times a day 1 tablet after meals 12h Active Hydrocortisone 1 % Rectal Once a day 1 application to affected area 24h Active Celexa 10 MG Orally Once a day 1 tablet 24h Active Desitin 13 % Externally every shift 1 application to affected area Active Essential Balance - Orally 3 times a day 1 tablet 8h Active RESULTS No Results PROCEDURES Procedure Date Ordered Result Body Site Stable Visit (10 minutes) Sep 09, 2017 INSTRUCTIONS MEDICATIONS ADMINISTERED No Known Medications [...]
--- OUTSIDE RECORDS SUMMARY | 2018-09-20 11:01 | XMS REPORT ---
Author Author JOSH THAYER Organization [facility] Address [address] [place] [address] Care Team Providers Care Ic Designer Custom Name Role Phone JOSH THAYER Unavailable PROBLEMS Type Condition ICD9-CM Code TFX03-HU Code Onset Dates Condition Status SNOMED Code Problem [facility] current use of insulin Z79.4 Active 822904037 Problem Gastroesophageal reflux disease without esophagitis K21.9 Active 972244215 Problem Cellulitis of left lower extremity L03.116 Active 595791858 Problem Left hemiplegia G81.94 Active 622017368 Problem Type 2 diabetes mellitus with unspecified complications E11.8 Active 76068400 Problem Stage III chronic kidney disease N18.3 Active 959639413 Problem Lymphedema of left lower extremity I89.0 Active [id number] ALLERGIES No Information ENCOUNTERS Encounter Location Date Diagnosis [place] [id number] [place] [address] 64297- 7834 Feb, [place] [address] 52090- 2324 Feb, [place] [id number] [place] [address] 04773- 8641 Feb, [email or web address] [address] [place] [id number] Feb, Acute non-recurrent maxillary sinusitis J01.00 and Gastroesophageal reflux disease without esophagitis K21.9 [place] [address] 61264- 0329 Feb, [place] [address] 51395- 0536 Feb, [email or web address] [address] [place] [id number] January, Cellulitis of right lower limb L03.115 and Cellulitis of left lower leg L03.116 [facility] [address] [place] [address] 63899- 6384 January, [facility] [id number] [place] [address] 78803- 9926 January, [facility] [address] [place] [id number] January, Acute superficial gastritis without hemorrhage K29.00 [facility] [id number] [place] [address] 30283- 8373 Dec, [facility] [address] [place] [id number] Nov, Acute superficial gastritis without hemorrhage K29.00 and Acute left-sided low back pain without sciatica M54.5 [facility] [address] [place] [id number] Nov, Chronic pruritus L29.9 ; Scratching T14.8XXA and Left hemiplegia G81.94 [facility] [id number] [place] [address] 23216- 5846 Oct, Scratching T14.8XXA [facility] [id number] [place] [address] 66340- 2933 Oct, Scratching T14.8XXA [facility] [id number] [place] [address] [id number] Oct, [facility] [id number] [place] [address] [phone] Sep, [facility] [address] [place] [address] 54735- 8006 Sep, [facility] [address] [place] [id number] Sep, Cellulitis of left lower extremity L03.116 [facility] [address] [place] [address] 44794- 6976 Sep, [facility] [address] [place] [address] 84489- 9528 Sep, [facility] [address] [place] [id number] Aug, Cellulitis of left lower extremity L03.116 [employer] [address] [place] [id number] Aug, Cellulitis of left lower extremity L03.116 and Lymphedema of left lower extremity I89.0 [facility] [id number] [place] [address] [id number] Aug, [facility] [id number] [place] [address] 55642- 1666 Aug, Cellulitis of left lower extremity L03.116 ; Wheezing R06.2 and Sinus congestion R09.81 [facility] [id number] [place] [address] [id number] Aug, [facility] [address] [place] [address] 07792- 4256 Aug, [facility] [id number] [place] [address] 95886- 4396 Aug, [facility] [address] [place] [address] 51137- 7686 Aug, [facility] [place] [id number] Aug, Establishing care with new doctor, encounter for Z76.89 ; Type 2 diabetes mellitus with unspecified complications E11.8 ; 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
--- OUTSIDE RECORDS SUMMARY | 2018-09-20 11:01 | XMS REPORT ---
Author Author HERMINIA YAO Organization [facility] Address [address] [place] [address] Care Team Providers Care Rolling Machine Operator Automatic Name Role Phone HERMINIA YAO Unavailable PROBLEMS Type Condition ICD9-CM Code NCC37-WL Code Onset Dates Condition Status SNOMED Code Problem Cellulitis of left lower extremity L03.116 Active 975853028 Problem Stage III chronic kidney disease N18.3 Active 031403089 Problem Type 2 diabetes mellitus with unspecified complications E11.8 Active 43786589 Problem [facility] current use of insulin Z79.4 Active 288332748 Problem Lymphedema of left lower extremity I89.0 Active 87643744255846712 Problem Left hemiplegia G81.94 Active 054463153 ALLERGIES No Information ENCOUNTERS Encounter Location Date Diagnosis [place] [id number] [place] [address] 49365- 7970 Feb, [place] [id number] [place] [address] 71641- 2549 Feb, [facility] [address] [place] [id number] January, Cellulitis of right lower limb L03.115 and Cellulitis of left lower leg L03.116 [place] [address] [place] [address] 07103- 9649 January, [place] [address] [place] [address] 20990- 2542 January, [facility] [address] [place] [id number] January, Acute superficial gastritis without hemorrhage K29.00 [place] [address] [place] [address] 26283 2540 Dec, [facility] [address] [place] [id number] Nov, Acute superficial gastritis without hemorrhage K29.00 and Acute left-sided low back pain without sciatica M54.5 [facility] [address] [place] [id number] Nov, Chronic pruritus L29.9 ; Scratching T14.8XXA and Left hemiplegia G81.94 [facility] [id number] [place] [address] 58400- 6194 Oct, Scratching T14.8XXA [facility] [id number] [place] [address] 10619- 5648 Oct, Scratching T14.8XXA [facility] [address] [id number] Oct, [facility] [address] [id number] Sep, [facility] [address] [id number]- 2420 Sep, [facility] [address] [place] [id number] Sep, Cellulitis of left lower extremity L03.116 [facility] [id number] [place] [address] 77601- 3655 Sep, [facility] [id number] [place] [address] [phone]- 6089 Sep, [facility] [address] [place] [id number] Aug, Cellulitis of left lower extremity L03.116 [facility] [address] [place] [id number] Aug, Cellulitis of left lower extremity L03.116 and Lymphedema of left lower extremity I89.0 [facility] [id number] [place] [address] [id number] Aug, [facility] [id number] [place] [address] 27756 2546 Aug, Cellulitis of left lower extremity L03.116 ; Wheezing R06.2 and Sinus congestion R09.81 [facility] [address] [id number] [id number] Aug, [facility] [address] [facility] [id number] [address]- 6497 Aug, [facility] [address] [facility] [id number] [address]- 6046 Aug, [facility] [address] [facility] [id number] [address]- 2632 Aug, [facility] [place] [id number] Aug, Establishing care with new doctor, encounter for Z76.89 ; Type 2 diabetes mellitus with unspecified complications E11.8 ; 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
--- OUTSIDE RECORDS SUMMARY | 2018-09-20 11:01 | XMS REPORT ---
Author Author JOSH THAYER Organization [facility] Address [address] [place] [address] Care Team Providers Care Video Production Engineer Name Role Phone JOSH THAYER Unavailable PROBLEMS Type Condition ICD9-CM Code OBS63-CN Code Onset Dates Condition Status SNOMED Code Problem snf current use of insulin Z79.4 Active 159033464 Problem Gastroesophageal reflux disease without esophagitis K21.9 Active 747270514 Problem Cellulitis of left lower extremity L03.116 Active 628089884 Problem Left hemiplegia G81.94 Active 492669246 Problem Type 2 diabetes mellitus with unspecified complications E11.8 Active 39505158 Problem Stage III chronic kidney disease N18.3 Active 248672002 Problem Lymphedema of left lower extremity I89.0 Active 07932031276861389 ALLERGIES No Information ENCOUNTERS Encounter Location Date Diagnosis [place] [id number] [place] [address] 82749- 3933 Feb, [place] [address] 46892- 5132 Feb, [place] [id number] [place] [address] 41593- 0572 Feb, [employer] [facility] [address] [place] [id number] Feb, Acute non-recurrent maxillary sinusitis J01.00 and Gastroesophageal reflux disease without esophagitis K21.9 [place] [address] 51560- 8395 Feb, [place] [address] 27657- 7696 Feb, [employer] [facility] [address] [place] [id number] January, Cellulitis of right lower limb L03.115 and Cellulitis of left lower leg L03.116 [facility] [address] [place] [address] 90824- 7675 January, [facility] [id number] [place] [address] 42561- 6566 January, [facility] [address] [place] [id number] January, Acute superficial gastritis without hemorrhage K29.00 [facility] [id number] [place] [address] 70082- 7249 Dec, [facility] [address] [place] [id number] Nov, Acute superficial gastritis without hemorrhage K29.00 and Acute left-sided low back pain without sciatica M54.5 [facility] [address] [place] [id number] Nov, Chronic pruritus L29.9 ; Scratching T14.8XXA and Left hemiplegia G81.94 [facility] [id number] [place] [address] 22397- 5746 Oct, Scratching T14.8XXA [facility] [id number] [place] [address] 56957- 6211 Oct, Scratching T14.8XXA [facility] [id number] [place] [address] [id number] Oct, [facility] [id number] [place] [address] [id number] Sep, [facility] [address] [place] [address] 45626- 3286 Sep, [facility] [address] [place] [id number] Sep, Cellulitis of left lower extremity L03.116 [facility] [address] [place] [address] 41411- 6016 Sep, [facility] [address] [place] [address] 97649- 2798 Sep, [facility] [address] [place] [id number] Aug, Cellulitis of left lower extremity L03.116 [employer] [address] [place] [id number] Aug, Cellulitis of left lower extremity L03.116 and Lymphedema of left lower extremity I89.0 [facility] [address] [id number] [id number] Aug, [facility] [address] [place] [address] 49802- 9906 Aug, Cellulitis of left lower extremity L03.116 ; Wheezing R06.2 and Sinus congestion R09.81 [facility] [id number] [place] [address] [id number] Aug, [facility] [address] [address]- 4786 Aug, [facility] [address] [place] [address] 69137- 6526 Aug, [facility] [id number] [place] [address] 05580- 5956 Aug, [facility] [facility] [place] [id number] Aug, Establishing care with new doctor, encounter for Z76.89 ; Type 2 diabetes mellitus with unspecified complications E11.8 ; 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
--- OUTSIDE RECORDS SUMMARY | 2018-09-20 11:01 | XMS REPORT ---
Author Author JOSH THAYER Organization [facility] [place] Address [address] [place] [address] Care Team Providers Care Cut Tobacco Bulker Name Role Phone JOSH THAYER Unavailable PROBLEMS Type Condition ICD9-CM Code [id number] Code Onset Dates Condition Status SNOMED Code Problem MCC current use of insulin Z79.4 Active 663666568 Problem Gastroesophageal reflux disease without esophagitis K21.9 Active 001774871 Problem Cellulitis of left lower extremity L03.116 Active 529060735 Problem Left hemiplegia G81.94 Active 305747600 Problem Type 2 diabetes mellitus with unspecified complications E11.8 Active 07721290 Problem Stage III chronic kidney disease N18.3 Active 977407790 Problem Lymphedema of left lower extremity I89.0 Active [id number] ALLERGIES No Information ENCOUNTERS Encounter Location Date Diagnosis [place] [address] [id number] [place] [address] 36546- 8016 Feb, [place] [address] 20740- 8093 Feb, [place] [id number] [place] [address] 35263- 3388 Feb, [employer] [address] [place] [id number] Feb, Acute non-recurrent maxillary sinusitis J01.00 and Gastroesophageal reflux disease without esophagitis K21.9 [place] [address] 39049- 8469 Feb, [place] [address] 76400- 2760 Feb, [employer] [address] [place] [id number] January, Cellulitis of right lower limb L03.115 and Cellulitis of left lower leg L03.116 [facility] [place] [address] [place] [address] 71247- 5872 January, [facility] [place] [id number] [place] [address] 93309- 3496 January, [facility] [address] [place] [id number] January, Acute superficial gastritis without hemorrhage K29.00 [facility] [place] [id number] [place] [address] 33539- 7541 Dec, [facility] [address] [place] [id number] Nov, Acute superficial gastritis without hemorrhage K29.00 and Acute left-sided low back pain without sciatica M54.5 [facility] [address] [place] [id number] Nov, Chronic pruritus L29.9 ; Scratching T14.8XXA and Left hemiplegia G81.94 [facility] [place] [id number] [place] [address] 40390- 8746 Oct, Scratching T14.8XXA [facility] [place] [id number] [place] [address] 56014- 9777 Oct, Scratching T14.8XXA [facility] [id number] [place] [address] [id number] Oct, [facility] [id number] [place] [address] [id number] Sep, [facility] [place] [address] [place] [address] 41630- 4346 Sep, [facility] [address] [place] [id number] Sep, Cellulitis of left lower extremity L03.116 [facility] [place] [address] [place] [address] 01714- 2606 Sep, [facility] [place] [address] [place] [address] 78036- 3052 Sep, [facility] [address] [place] [id number] Aug, Cellulitis of left lower extremity L03.116 [employer] [address] [place] [id number] Aug, Cellulitis of left lower extremity L03.116 and Lymphedema of left lower extremity I89.0 [facility] [id number] [place] [address] [id number] Aug, [facility] [place] [id number] [place] [address] 31455- 1546 Aug, Cellulitis of left lower extremity L03.116 ; Wheezing R06.2 and Sinus congestion R09.81 [facility] [id number] [place] [address] [id number] Aug, [facility] [place] [address] [place] [address] 51254- 4806 Aug, [facility] [place] [id number] [place] [address] 38041- 6476 Aug, [facility] [place] [address] [place] [address] 77089- 0676 Aug, [facility] [place] [id number] Aug, Establishing care with new doctor, encounter for Z76.89 ; Type 2 diabetes mellitus with unspecified complications E11.8 ; 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
--- OUTSIDE RECORDS SUMMARY | 2018-09-20 11:02 | XMS REPORT ---
Author Author HERMINIA YAO Organization [facility] Address [address] [place] [address] Care Team Providers Care Social Worker Delinquency Prevention Name Role Phone HERMINIA YAO Unavailable PROBLEMS Type Condition ICD9-CM Code [id number] Code Onset Dates Condition Status SNOMED Code Problem [facility] current use of insulin Z79.4 Active 675052678 Problem Gastroesophageal reflux disease without esophagitis K21.9 Active 194699887 Problem Cellulitis of left lower extremity L03.116 Active 483906538 Problem Left hemiplegia G81.94 Active 262603390 Problem Type 2 diabetes mellitus with unspecified complications E11.8 Active 08460480 Problem Stage III chronic kidney disease N18.3 Active 958578190 Problem Lymphedema of left lower extremity I89.0 Active [id number] ALLERGIES No Information ENCOUNTERS Encounter Location Date Diagnosis [place] [address] 46566- 3987 14 Feb, 2018 [place] [address] 64170- 8432 13 Feb, 2018 [place] [address] [id number] [place] [address] 00521- 6282 Feb, [facility] [place] [id number] Feb, Acute non-recurrent maxillary sinusitis J01.00 and Gastroesophageal reflux disease without esophagitis K21.9 [place] [id number] [place] [address] 75775- 6155 Feb, [place] [address] 56146- 8824 Feb, [facility] [address] [place] [id number] January, Cellulitis of right lower limb L03.115 and Cellulitis of left lower leg L03.116 [facility] [address] [place] [address] [phone] January, [facility] [id number] [place] [address] [phone]- 8776 January, [facility] [address] [place] [id number] January, Acute superficial gastritis without hemorrhage K29.00 [facility] [id number] [place] [address] 83753- 9013 Dec, [facility] [address] [place] [id number] Nov, Acute superficial gastritis without hemorrhage K29.00 and Acute left-sided low back pain without sciatica M54.5 [facility] [address] [place] [id number] Nov, Chronic pruritus L29.9 ; Scratching T14.8XXA and Left hemiplegia G81.94 [place] [id number] [place] [address] 05687- 3286 Oct, Scratching T14.8XXA [place] [id number] [place] [address] 66420- 9896 Oct, Scratching T14.8XXA [facility] [address] [id number] [place] [address] [phone] Oct, [facility] [id number] [place] [address] [phone] Sep, [facility] [address] [place] [address] 34463 2546 Sep, [facility] [address] [place] [id number] Sep, Cellulitis of left lower extremity L03.116 [facility] [id number] [place] [address] 74456 2546 Sep, [facility] [address] [place] [address] 10262- 0225 Sep, [facility] [address] [place] [id number] Aug, Cellulitis of left lower extremity L03.116 [facility] [address] [place] [id number] Aug, Cellulitis of left lower extremity L03.116 and Lymphedema of left lower extremity I89.0 [facility] [id number] [id number] Aug, [facility] [address] [place] [address] 76258- 3676 Aug, Cellulitis of left lower extremity L03.116 ; Wheezing R06.2 and Sinus congestion R09.81 [facility] [id number] [place] [address] [id number] Aug, [facility] [address] [place] [address] 10683- 7438 Aug, [facility] [address] [place] [address] 80521- 9502 Aug, [facility] [address] [place] [address] 46948- 2223 Aug, [facility] [address] [place] [id number] Aug, Establishing care with new doctor, encounter for Z76.89 ; Type 2 diabetes mellitus with unspecified complications E11.8 ; [employer]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
--- OUTSIDE RECORDS SUMMARY | 2018-09-20 11:02 | XMS REPORT ---
Author Author HERMINIA YAO Organization [facility] Address [address] [place] [address] Care Team Providers Care Machine Bander And Cellophaner Helper Name Role Phone HERMINIA YAO Unavailable PROBLEMS Type Condition ICD9-CM Code [id number] Code Onset Dates Condition Status SNOMED Code Problem Cellulitis of left lower extremity L03.116 Active 346160885 Problem Stage III chronic kidney disease N18.3 Active 921047769 Problem Type 2 diabetes mellitus with unspecified complications E11.8 Active 04152478 Problem half-way current use of insulin Z79.4 Active 631979645 Problem Lymphedema of left lower extremity I89.0 Active 66837659543826756 Problem Left hemiplegia G81.94 Active 077871198 ALLERGIES No Information ENCOUNTERS Encounter Location Date Diagnosis [place] [address] [place] [address] 82729- 3915 Feb, [place] [id number] [place] [address] 51782- 5887 Feb, [facility] [address] [place] [id number] January, Cellulitis of right lower limb L03.115 and Cellulitis of left lower leg L03.116 [place] [address] [place] [address] 25309- 9640 January, [place] [address] [place] [address] 74350- 8277 January, [facility] [address] [place] [id number] January, Acute superficial gastritis without hemorrhage K29.00 [place] [address] [place] [address] 73717 2541 Dec, [facility] [address] [place] [id number] Nov, Acute superficial gastritis without hemorrhage K29.00 and Acute left-sided low back pain without sciatica M54.5 [facility] [address] [place] [id number] Nov, Chronic pruritus L29.9 ; Scratching T14.8XXA and Left hemiplegia G81.94 [facility] [id number] [place] [address] 26620- 4787 Oct, Scratching T14.8XXA [facility] [id number] [place] [address] 31242- 6419 Oct, Scratching T14.8XXA [facility] [address] [id number] Oct, [facility] [address] [id number] Sep, [facility] [address] 00042286- 0337 Sep, [facility] [address] [place] [id number] Sep, Cellulitis of left lower extremity L03.116 [facility] [id number] [place] [address] 30039- 8399 Sep, [facility] [id number] [place] [address] [phone]- 7745 Sep, [facility] [address] [place] [id number] Aug, Cellulitis of left lower extremity L03.116 [facility] [address] [place] [id number] Aug, Cellulitis of left lower extremity L03.116 and Lymphedema of left lower extremity I89.0 [facility] [id number] [place] [address] [id number] Aug, [facility] [id number] [place] [address] 75977 2546 Aug, Cellulitis of left lower extremity L03.116 ; Wheezing R06.2 and Sinus congestion R09.81 [facility] [address] [id number] [id number] Aug, [facility] [address] [facility] [id number] [address]- 7174 Aug, [facility] [address] [facility] [id number] [place] [address]- 6129 Aug, [facility] [address] [facility] [id number] [place] [phone]- 0486 Aug, [facility] [place] [id number] Aug, Establishing care with new doctor, encounter for Z76.89 ; Type 2 diabetes mellitus with unspecified complications E11.8 ; 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
--- OUTSIDE RECORDS SUMMARY | 2018-09-20 11:02 | XMS REPORT ---
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 Active 136084703 Problem Gastroesophageal reflux disease without esophagitis K21.9 Active 655223989 Problem Cellulitis of left lower extremity L03.116 Active 869651937 Problem Left hemiplegia G81.94 Active 300563614 Problem Type 2 diabetes mellitus with unspecified complications E11.8 Active 09036411 Problem Stage III chronic kidney disease N18.3 Active 165475014 Problem Lymphedema of left lower extremity I89.0 Active 74220784081049239 ALLERGIES No Information ENCOUNTERS Encounter Location Date Diagnosis [place] [id number] [place] [address] 59219- 5423 Feb, [place] [address] 54999- 2190 Feb, [place] [id number] [place] [address] 64245- 1119 Feb, [employer] [facility] [address] [place] [id number] Feb, Acute non-recurrent maxillary sinusitis J01.00 and Gastroesophageal reflux disease without esophagitis K21.9 [place] [address] 69720- 7437 Feb, [place] [address] 28821- 2848 Feb, [employer] [facility] [address] [place] [id number] January, Cellulitis of right lower limb L03.115 and Cellulitis of left lower leg L03.116 [facility] [address] [place] [address] 06341- 5845 January, [facility] [id number] [place] [address] 27623- 4776 January, [facility] [address] [place] [id number] January, Acute superficial gastritis without hemorrhage K29.00 [facility] [id number] [place] [address] 86045- 4808 Dec, [facility] [address] [place] [id number] Nov, Acute superficial gastritis without hemorrhage K29.00 and Acute left-sided low back pain without sciatica M54.5 [facility] [address] [place] [id number] Nov, Chronic pruritus L29.9 ; Scratching T14.8XXA and Left hemiplegia G81.94 [facility] [address] [id number] [place] [address] 54443- 5656 Oct, Scratching T14.8XXA [facility] [id number] [place] [address] 91168- 9855 Oct, Scratching T14.8XXA [facility] [id number] [place] [address] [id number] Oct, [facility] [id number] [place] [address] [phone] Sep, [facility] [address] [place] [address] 06083- 1196 Sep, [facility] [address] [place] [id number] Sep, Cellulitis of left lower extremity L03.116 [facility] [address] [place] [address] 19276- 6286 Sep, [facility] [address] [place] [address] 52539- 0100 Sep, [facility] [address] [place] [id number] Aug, Cellulitis of left lower extremity L03.116 [employer] [address] [place] [id number] Aug, Cellulitis of left lower extremity L03.116 and Lymphedema of left lower extremity I89.0 [facility] [address] [place] [address] [id number] [id number] Aug, [facility] [address] [place] [address] 48135- 1396 Aug, Cellulitis of left lower extremity L03.116 ; Wheezing R06.2 and Sinus congestion R09.81 [facility] [id number] [place] [address] [id number] Aug, [facility] [address] [address]- 0326 Aug, [facility] [address] [place] [address] 35234- 9286 Aug, [facility] [address] [place] [id number] [place] [address] 09831- 2196 Aug, [facility] [place] [id number] Aug, Establishing care with new doctor, encounter for Z76.89 ; Type 2 diabetes mellitus with unspecified complications E11.8 ; 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
--- OUTSIDE RECORDS SUMMARY | 2018-09-20 11:02 | XMS REPORT ---
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.4 Active 683506835 Problem Gastroesophageal reflux disease without esophagitis K21.9 Active 704153988 Problem Cellulitis of left lower extremity L03.116 Active 075629084 Problem Left hemiplegia G81.94 Active 223476308 Problem Type 2 diabetes mellitus with unspecified complications E11.8 Active 77960412 Problem Stage III chronic kidney disease N18.3 Active 335424334 Problem Lymphedema of left lower extremity I89.0 Active 65096165257977639 ALLERGIES Substance Reaction Event Type Date Status Bactrim DS renal failure Drug Allergy Aug, Active ENCOUNTERS Encounter Location Date Diagnosis [place] [address] [place] [address] 45176- 2869 Feb, [facility] [address] [place] [id number] Feb, Acute non-recurrent maxillary sinusitis J01.00 and Gastroesophageal reflux disease without esophagitis K21.9 [place] [address] [place] [address] 60633- 3890 Feb, [place] [address] [place] [id number] [place] [address] 26187- 0680 Feb, [facility] [address] [place] [id number] January, Cellulitis of right lower limb L03.115 and Cellulitis of left lower leg L03.116 [place] [address] [place] [address] 68994- 0995 January, [place] [id number] [address] January, [facility] [address] [place] [id number] January, Acute superficial gastritis without hemorrhage K29.00 [facility] [address] [place] [address] 92911 2546 Dec, [facility] [address] [place] [id number] Nov, Acute superficial gastritis without hemorrhage K29.00 and Acute left-sided low back pain without sciatica M54.5 [facility] [address] [place] [id number] Nov, Chronic pruritus L29.9 ; Scratching T14.8XXA and Left hemiplegia G81.94 [facility] [address] [place] [address] 02734 2546 Oct, Scratching T14.8XXA [facility] [address] [place] [id number] [place] [address] 51056 2546 Oct, Scratching T14.8XXA [facility] [address] [id number] [place] [address] [id number] Oct, [facility] [address] [place] [id number] [place] [address] [id number] Sep, [facility] [address] [place] [id number] [address] 2546 Sep, [facility] [address] [place] [id number] Sep, Cellulitis of left lower extremity L03.116 [facility] [address] [place] [address] [id number] [address] 2546 Sep, [facility] [address] [place] [address] 13641- 2546 Sep, [facility] [address] [place] [id number] Aug, Cellulitis of left lower extremity L03.116 [facility] [address] [place] [id number] Aug, Cellulitis of left lower extremity L03.116 and Lymphedema of left lower extremity I89.0 [facility] [address] [id number] [id number] Aug, [facility] [address] [place] [address] [id number]- [phone] Aug, Cellulitis of left lower extremity L03.116 ; Wheezing R06.2 and Sinus congestion R09.81 [facility] [id number] [place] [address] [id number] Aug, [facility] [address] [place] [id number] [place] [address] 76816- 6552 Aug, [facility] [address] [place] [address] [id number]- [phone] Aug, [facility] [address] [place] [address] 42604- 0874 Aug, [facility] [address] [place] [id number] Aug, Establishing care with new doctor, encounter for Z76.89 ; Type 2 diabetes mellitus with unspecified complications E11.8 ; 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 PLAN OF CARE Activity Details Follow Up Judy will see next week Reason: VITAL SIGNS Temperature 99.3 degrees Fahrenheit 2017-09-02 Heart Rate 100 bpm 2017-09-02 Respiratory Rate 20 2017-09-02 Blood pressure systolic 144 mmHg 2017-09-02 Blood pressure diastolic 60 mmHg 2017-09-02 MEDICATIONS Medication Instructions Dosage Frequency Start Date End Date Duration Status Endur-Acin 500 MG Orally Once a day 1 tablet with food 24h Active Protonix 20 MG Orally Once a day 1 tablet 24h Active Hydrocodone-Acetaminophen 5-325 MG Orally every 6 hrs 1-2 tablet as needed 6h Aug, Active NovoLog 100 UNIT/ML Subcutaneous 4 times a day sliding scale 6h Active Tylenol Extra Strength 500 MG Orally every 6 hrs 2 tablets as needed 6h Active Methylsulfonylmethane 1000 MG Orally Once a day 2 tablets 24h Active Lipitor 20 MG Orally Once a day 1 tablet 24h Active Keflex 500 mg Orally 4 times a day 1 capsule 6h Aug, Aug, Active Levemir 100 UNIT/ML Subcutaneous 2 times a day 40 units 12h Active Melatonin 3 MG Orally Once a day 1 tablet at bedtime 24h Active GoodSense Hemorrhoidal 0.25-14-74.9 % Active HydrOXYzine HCl 25 MG Orally every 8 hrs 1 tablet as needed 8h Active Cinnamon 500 mg Orally Once a day 2 tablets 24h Active Valerian 530 MG Orally Once a day 1 capsule before bedtime as needed 24h Active Cranberry 1000 MG Orally Once a day 1 tablet with meals 24h Active Plavix 75 MG Orally Once a day 1 tablet 24h Active Metoprolol Succinate ER 100 MG Orally Once a day 1 tablet 24h Active [place] 3 1200 MG Orally Once a day 1 capsule 24h Active Magnesium Hydroxide 400 MG/5ML Orally daily 30 ml as needed 24h Active Blood Sugar 360 - Orally as needed 1 capsule Active Super B Complex Active Cholecalciferol 5000 UNIT Orally Once a day 1 capsule 24h Active Onglyza 2.5 MG Orally Once a day 1 tablet 24h Active Harper Nasal [place] 0.65 % Nasally every 2 hrs 2 sprays in each nostril as needed Active Urecholine 10 mg Orally 2 times a day 1 tablet after meals 12h Active Celexa 10 MG Orally Once a day 1 tablet 24h Active Victoza 18 MG/3ML Subcutaneous Once a day 1.8mg 24h Active Norvasc 5 MG Orally Once a day 1 tablet 24h Active Aspirin Adult Low Dose 81 MG Orally Once a day 1 tablet 24h Active Symbicort 160-4.5 MCG/ACT Inhalation Twice a day 2 puffs 12h Active Essential Balance - Orally 3 times a day 1 tablet 8h Active Ferrex 150 150 MG Orally Once a day 1 capsule 24h Active Desitin 13 % Externally every shift 1 application to affected area Active Dulcolax 10 MG Rectal Once a day 1 suppository as needed 24h Active Hydrocortisone 1 % Rectal Once a day 1 application to affected area 24h Active RESULTS No Results PROCEDURES Procedure Date Ordered Result Body Site [facility] VISIT ESTABLISHED PATIENT Sep 02, 2017 INSTRUCTIONS MEDICATIONS ADMINISTERED No Known Medications [...]
--- OUTSIDE RECORDS SUMMARY | 2018-09-20 11:02 | XMS REPORT ---
Author Author HERMINIA YAO Organization [facility] Address [address] [place] [address] Care Team Providers Care Slice Cutting Machine Operator Name Role Phone HERMINIA YAO Unavailable PROBLEMS Type Condition ICD9-CM Code XSV72-AZ Code Onset Dates Condition Status SNOMED Code Problem half-way current use of insulin Z79.4 Active 586421633 Problem Gastroesophageal reflux disease without esophagitis K21.9 Active 445679545 Problem Cellulitis of left lower extremity L03.116 Active 611214007 Problem Left hemiplegia G81.94 Active 771686784 Problem Type 2 diabetes mellitus with unspecified complications E11.8 Active 35281020 Problem Stage III chronic kidney disease N18.3 Active 702986692 Problem Lymphedema of left lower extremity I89.0 Active 25636619290169300 ALLERGIES No Information ENCOUNTERS Encounter Location Date Diagnosis [place] [address] [address]- [address] 14 Feb, 2018 [place] [address] 97676- 0143 13 Feb, 2018 [place] [address] [place] [id number] [place] [address] 94772- 9063 Feb, [facility] [place] [id number] Feb, Acute non-recurrent maxillary sinusitis J01.00 and Gastroesophageal reflux disease without esophagitis K21.9 [place] [address] [place] [id number] [place] [address] 17660- 8710 Feb, [place] [address] 85114- 6172 Feb, [facility] [address] [place] [id number] January, Cellulitis of right lower limb L03.115 and Cellulitis of left lower leg L03.116 [facility] [address] [place] [address] [phone] January, [facility] [address] [place] [id number] [place] [address] [phone]- 3466 January, [facility] [address] [place] [id number] January, Acute superficial gastritis without hemorrhage K29.00 [facility] [address] [place] [id number] [place] [address] 60007- 9704 Dec, [facility] [address] [place] [id number] Nov, Acute superficial gastritis without hemorrhage K29.00 and Acute left-sided low back pain without sciatica M54.5 [facility] [address] [place] [id number] Nov, Chronic pruritus L29.9 ; Scratching T14.8XXA and Left hemiplegia G81.94 [place] [address] [place] [id number] [place] [address] 65303- 6276 Oct, Scratching T14.8XXA [place] [address] [place] [id number] [place] [address] 78236- 1116 Oct, Scratching T14.8XXA [facility] [address] [place] [id number] [place] [address] [id number] Oct, [facility] [address] [place] [id number] [place] [address] [id number] Sep, [facility] [address] [place] [address] 43264 2546 Sep, [facility] [address] [place] [id number] Sep, Cellulitis of left lower extremity L03.116 [facility] [address] [place] [id number] [place] [address] 61592 2546 Sep, [facility] [address] [place] [address] 32085- 6455 Sep, [facility] [address] [place] [id number] Aug, Cellulitis of left lower extremity L03.116 [facility] [address] [place] [id number] Aug, Cellulitis of left lower extremity L03.116 and Lymphedema of left lower extremity I89.0 [facility] [id number] [id number] Aug, [facility] [address] [place] [address] 01262- 1926 Aug, Cellulitis of left lower extremity L03.116 ; Wheezing R06.2 and Sinus congestion R09.81 [facility] [address] [place] [id number] [place] [address] [id number] Aug, [facility] [address] [place] [address] 83742- 3787 Aug, [facility] [address] [place] [address] 79361- 4192 Aug, [facility] [address] [place] [address] 65464- 8033 Aug, [facility] [address] [place] [phone] Aug, Establishing care with new doctor, encounter [...]
--- OUTSIDE RECORDS SUMMARY | 2018-09-20 11:02 | XMS REPORT ---
Author Author JOSH THAYER [facility] Address [address] [place] [address] Care Team Providers Care Meat Processor Name Role Phone JOSH THAYER Unavailable PROBLEMS Type Condition ICD9-CM Code OAY10-RT Code Onset Dates Condition Status SNOMED Code Problem USP current use of insulin Z79.4 Active 237510753 Problem Gastroesophageal reflux disease without esophagitis K21.9 Active 973953423 Problem Cellulitis of left lower extremity L03.116 Active 797090290 Problem Left hemiplegia G81.94 Active 888355833 Problem Type 2 diabetes mellitus with unspecified complications E11.8 Active 48395275 Problem Stage III chronic kidney disease N18.3 Active 189264789 Problem Lymphedema of left lower extremity I89.0 Active 66671687207943245 ALLERGIES No Information ENCOUNTERS Encounter Location Date Diagnosis [place] [address] [place] [id number] [place] [address] 91980- 0165 Feb, [place] [address] 39984- 1710 Feb, [facility] [address] [place] [address] [id number] Feb, Acute non-recurrent maxillary sinusitis J01.00 and Gastroesophageal reflux disease without esophagitis K21.9 [place] [address] [place] [id number] [place] [address] 05915- 9996 Feb, [address] [address]- 5196 Feb, [facility] [address] [place] [address] [id number] January, Cellulitis of right lower limb L03.115 and Cellulitis of left lower leg L03.116 [place] [address] 09772- 2546 January, [facility] [address] [place] [address] 64773 2546 January, [facility] [address] [place] [id number] January, Acute superficial gastritis without hemorrhage K29.00 [facility] [address] [place] [address] 96449 2546 Dec, [facility] [address] [place] [id number] Nov, Acute superficial gastritis without hemorrhage K29.00 and Acute left-sided low back pain without sciatica M54.5 [facility] [address] [place] [id number] Nov, Chronic pruritus L29.9 ; Scratching T14.8XXA and Left hemiplegia G81.94 [facility] [address] [place] [id number] [place] [address] 89627 2546 Oct, Scratching T14.8XXA [facility] [address] [place] [id number] [place] [address] 20656 2546 Oct, Scratching T14.8XXA [facility] [address] [place] [id number] [place] [address] [id number] Oct, [facility] [address] [place] [id number] [place] [address] [id number] Sep, [facility] [address] [place] [address] 38509 2546 Sep, [facility] [address] [place] [id number] Sep, Cellulitis of left lower extremity L03.116 [facility] [address] [place] [address] 96061 2546 Sep, [facility] [address] [place] [address] 52530- 2546 Sep, [facility] [address] [place] [id number] Aug, Cellulitis of left lower extremity L03.116 [facility] [address] [place] [id number] Aug, Cellulitis of left lower extremity L03.116 and Lymphedema of left lower extremity I89.0 [facility] [id number] [id number] Aug, [facility] [address] [id number], [place] [address]16 Aug, Cellulitis of left lower extremity L03.116 ; Wheezing R06.2 and Sinus congestion R09.81 [facility] [address] [id number] [id number] Aug, [facility] [address] [place] [address] 73433- 3356 Aug, [facility] [address] [id number] [address] Aug, [facility] [address] [place] [id number] [address]- 5376 Aug, [facility] [address] [place] [id number] Aug, Establishing care with new doctor, encounter for Z76.89 ; Type 2 diabetes mellitus with unspecified complications E11.8 ; USP current use of insulin Z79.4 ; Left hemiplegia G81.94 ; Status post CVA Z86.73 ; Stage III chronic kidney disease N18.3 and Lymphedema of left lower extremity I89.0 IMMUNIZATIONS No Known Immunizations SOCIAL HISTORY Never Assessed REASON FOR VISIT Medication question PLAN OF CARE VITAL SIGNS MEDICATIONS Unknown [...]
[~2018-10-11] VITALS: Ht 165.1 cm; Wt 111.1 kg
[~2018-10-11 07:07] MED LIST changes: -AMLO5TAB7 PO; +AMLO5TAB9 PO; +DOCU-143 PO; +DULA1.5P2 SQ; +GABA-488 PO; +MAGN30OR PO; +MICO14CR TP; +OMEG1CAP57 PO; +[UNRECOGNIZED DRUG - CODE] PO
[2018-10-11] MEDS ORDERED: LACTATED RINGERS 1,000 ML IV ONE (07:18)
[2018-10-11 07:20] VITALS: BP 168/76
[2018-10-11] MEDS ORDERED: HURRICAINE EXT TUBE (BENZOCAINE) XX PRN (07:30)
[2018-10-11] MEDS ORDERED: LACTATED RINGERS 1,000 ML IV PRN (07:30)
[2018-10-11] MEDS ORDERED: proPOfol 200 MG/20 ML (DIPRIVAN) VIAL IV ONE ×2 (07:47→08:26)
[2018-10-11] MEDS ORDERED: LIDOCAINE PF 2% 5 ML (XYLOCAINE) VIAL ONE (07:48)
[2018-10-11] MEDS ORDERED: ceFAZolin 2 GM IV Premixed 50 ML ONE (07:50)
[2018-10-11] MEDS ORDERED: meTOprolol 5 MG/5 ML (LOPRESSOR) VIAL ONE (08:00)
[2018-10-11] MEDS ORDERED: ceFAZolin 2 GM IV Premixed 50 ML IV ONE (08:00)
[2018-10-11] MEDS ORDERED: GLYCOPYRROLATE 0.2 MG/ML (ROBINUL) 2 ML VIAL ONE (08:38)
[2018-10-11] MEDS ORDERED: OMEP20TA7 PO (09:04)
--- NOTE | 2018-10-11 09:08 | Progress Note-Post Operative ---
Post-Operative Progess Note Surgeon (s)/Admitting Office Escort (s) Surgeon LOU HARDIN DO Admitting Office Escort: na Pre-Operative Diagnosis gerd, screening colon Post-Operative Diagnosis hiatal hernia, gastritis, gastric polyps, colon polyps. Procedure & Operative Findings Date of Procedure 10/11/18 Procedure Performed/Findings egd c biopsies, colonoscopy with hot bx polypectomy x 6 Anesthesia Type per champion of sustainable design Estimated Blood Loss Estimated blood loss (mL): scant Specimens/Packing Specimens Removed antrum, body, ge, colon polyps x 6 LOU HARDNI DO Oct 11, 2018 09:08
--- NOTE | 2018-10-11 09:12 | Discharge Inst-Simple/Standard ---
Discharge Inst-Standard Discharge Medications New, Converted or Re-Newed RX: Transmitted to Pharmacy Patient Instructions/Follow Up Plan of Care/Instructions/FU: Sharon 2-3 weeks. Restart plavix and aspirin in 5 days. Activity as Tolerated: Yes Discharge Diet: Regular Diet LOU HARDIN DO Oct 11, 2018 09:12
[2018-10-11 09:30] VITALS: BP 174/81
[2018-10-11 09:55] VITALS: BP 146/80
[2018-10-11 09:58] VITALS: BP 146/80
--- NOTE | 2018-10-11 10:41 | OPERATIVE REPORT ---
DATE OF SERVICE: 10/11/2018 PREOPERATIVE DIAGNOSES: Gastroesophageal reflux disease and screening colonoscopy. POSTOPERATIVE DIAGNOSES: Hiatal hernia, gastritis, gastric polyps and colon polyps. PROCEDURES PERFORMED: EGD with biopsies, colonoscopy with hot biopsy polypectomy x 6. SURGEON: Lou Herrera DO. ANESTHESIA: Per FREIGHT SEPARATOR. ESTIMATED BLOOD LOSS: Scant. COMPLICATIONS: None. INDICATIONS: The patient is a 68-year-old female with reflux symptoms and needing screening colonoscopy. She has never had one. She understands risks and benefits of the procedure and wished to proceed with procedure. Consent was signed in the chart. PROCEDURE: The patient was taken to the endoscopy suite and placed in the left lateral recumbent position. Timeout was performed. Scope was inserted in the mouth, down the esophagus, stomach and into the duodenum without difficulty. There were no polyps, masses or ulcerations within the duodenum. Scope was slowly retracted back into the stomach, which was insufflated. Gastritis appearance was present. There were also some gastric polyps present. Biopsy of the antrum and body were obtained. Scope was retroflexed noting a small hiatal hernia and no other pathology noted. Scope was returned to its normal position, slowly withdrawn to the distal esophagus. Some slight erythematous changes were present in the distal esophagus, which biopsy of GE junction was obtained. The scope was then slowly retracted back noting no other pathology. Scope was slowly retracted until completely removed, noting no other pathology. Digital rectal exam was performed noting some hemorrhoidal disease. No palpable polyps, masses or ulcerations on rectal exam. Scope was inserted in the rectum and advanced all the way to the cecum with minimal difficulty. Prep was adequate. Scope was then slowly retracted back. There were no polyps, masses or ulcerations within the cecum. In the ascending colon, there were three polyps present, which hot biopsy polypectomy was performed on these 3 polyps. Scope was continued to be slowly retracted back through the transverse colon where another polyp was present, which hot biopsy polypectomy was performed. In the descending colon, there was another polyp present, which hot biopsy polypectomy was performed and the scope was continued to be slowly retracted back through the sigmoid, which had minimal diverticulosis. Also a polyp, which hot biopsy polypectomy was performed. No other pathology. Once in the rectum, the scope was retroflexed noting no other pathology. Scope was returned to its normal position, slowly withdrawn until completely removed. The patient tolerated the procedure well without any complications. She was taken to the recovery room in stable condition. RECOMMENDATIONS: The patient will follow up in the office in 2 weeks to discuss pathology. She will be started on omeprazole. We will see how her symptoms are doing at that time. Due to the number of polyps, I would recommend repeat colonoscopy in one year. If she has any issues before that, she should be seen at that time. I will hold her Plavix and aspirin for five more days. Job ID: [id number] DocumentID: [id number] Dictated Date: 10/11/2018 09:10:59 Carpet Binder Date: 10/11/2018 10:40:33 Dictated By: LOU HERRERA DO
== END 2018-10-11 10:00 ==
LOC: ENDO 07:07
PROVIDERS: ATTEND Surgery
DX: Z12.11 Encounter for screening for malignant neoplasm of colon (principal); D12.2 Benign neoplasm of ascending colon; D12.3 Benign neoplasm of transverse colon; D12.4 Benign neoplasm of descending colon; D12.5 Benign neoplasm of sigmoid colon; K21.9 Gastro-esophageal reflux disease without esophagitis; K44.9 Diaphragmatic hernia without obstruction or gangrene; K29.50 Unspecified chronic gastritis without bleeding; K31.7 Polyp of stomach and duodenum; E11.9 Type 2 diabetes mellitus without complications; I25.10 Atherosclerotic heart disease of native coronary artery without angina pectoris; J44.9 Chronic obstructive pulmonary disease, unspecified; G47.33 Obstructive sleep apnea (adult) (pediatric); I69.354 Hemiplegia and hemiparesis following cerebral infarction affecting left non-dominant side; I69.391 Dysphagia following cerebral infarction; I69.321 Dysphasia following cerebral infarction; E66.01 Morbid (severe) obesity due to excess calories; Z68.41 Body mass index [BMI] 40.0-44.9, adult; Z79.02 Long term (current) use of antithrombotics/antiplatelets; Z79.4 Long term (current) use of insulin; Z79.82 Long term (current) use of aspirin; Z79.899 Other long term (current) drug therapy
CPT/HCPCS: 82962

== ENCOUNTER 2019-02-19 08:03 | Emergency (ER) | payer MEDICARE, MEDICAID ==
[~2019-02-19] VITALS: Ht 167.6 cm; Wt 127.0 kg
[~2019-02-19 08:03] MED LIST changes: +OMEP20TA7 PO
[2019-02-19] MEDS ORDERED: ASPIRIN 81 MG CHEW (CHILDREN'S ASA) PO ONE (08:15)
[2019-02-19] MEDS ORDERED: RT-ALBUTEROL/IPRATROPIUM 3 ML (DUONEB) VIAL INH ONE (08:15)
[2019-02-19 08:46] LABS: BASOPHILS % (AUTO) 0 % (0-10); EOSINOPHILS # (AUTO) 0.1 10^3/uL (0.0-0.3); EOSINOPHILS % (AUTO) 1 % (0-10); HEMATOCRIT 41 % (35-52); HEMOGLOBIN 13.4 G/DL (11.5-16.0); LYMPHOCYTES # (AUTO) 1.3 X 10^3 (1.0-4.0); LYMPHOCYTES % (AUTO) 11 % (12-44); MEAN CORPUSCULAR HEMOGLOBIN 27 PG (25-34); MEAN CORPUSCULAR HGB CONC 33 G/DL (32-36); MEAN CORPUSCULAR VOLUME 84 FL (80-99); MEAN PLATELET VOLUME 10.4 FL (7.4-10.4); MONOCYTES % (AUTO) 9 % (0-12); NEUTROPHILS # (AUTO) 9.4 X 10^3 (1.8-7.8); NEUTROPHILS % (AUTO) 80 % (42-75); PLATELET COUNT 202 10^3/uL (130-400); RED CELL DISTRIBUTION WIDTH 14.7 % (10.0-14.5); WHITE BLOOD COUNT 11.7 10^3/uL (4.3-11.0)
[2019-02-19 08:53] LABS: PROTHROMBIN TIME PATIENT 13.8 SEC (12.2-14.7)
--- NOTE | 2019-02-19 08:58 | ED Chest Pain ---
General Chief Complaint: Respiratory Problems Stated Complaint: CHEST PAIN Nursing Triage Note: PT TO RM 6 BY WHEELCHAIR FROM [facility] WITH COMPLAINT OF SOA, CP, AND BACK PAIN. PT STATES SYMPTOMS STARTED LAST NIGHT. STATES THE NH PUT ON 2L NC DUE TO O2 SATS IN THE 80s. Nursing Sepsis Screen: No Definite Risk Source: patient, [facility] records Exam Limitations: no limitations History of Present Illness Date Seen by Provider: Feb 19, 2019 Time Seen by Provider: 08:10 Initial Comments This 68-year-old female resident of [facility] presents to the emergency room with complaints of chest pain with inspiration and shortness of breath that started around 20:00 last night. The chest pain has since resolved but she has some pain in her "lymph nodes" on the lateral aspects of the neck with inspiration. She reports last night her ears hurt as well. She has had some cough and reports a temperature of 100.6 at the [facility]. Review of chart notes a cardiac angiography showing no obstructive disease in 2011. Patient denies any history of COPD or other respiratory problems, but she is tight and wheezy on exam. Patient's chart notes a history of COPD. She complains of some pain in the back at this time that appears positional. 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 Allergies and Home Medications Allergies Coded Allergies: sulfamethoxazole (Verified Allergy, Unknown, 10/13/17) trimethoprim (Verified Allergy, Unknown, 10/13/17) Home Medications Acetaminophen 500 Mg Tablet, 1,000 MG PO Q6H PRN for MILD PAIN/FEVER, (Reported) Albuterol Sulfate 2.5 Mg/3 Ml Vial.neb, 2.5 MG INH Q4H PRN for WHEEZING Prescribed by: SAMINA CARABALLO on 02/19/19 1404 Amlodipine Besylate 5 Mg Tablet, 5 MG PO DAILY, (Reported) HOLD IF SYSTOLIC <110 Apixaban 5 Mg Tablet, 5 MG PO BID TAKE 2 TABLETS BID X 7 DAYS, THEN 1 TABLET BID Prescribed by: SAMINA CARABALLO on 02/19/19 1404 Aspirin 81 Mg Tab.chew, 81 MG PO HS, (Reported) GIVE 30 MINUTES PRIOR TO ADMINISTRATION OF ENDUR-ACIN (NIASPAN) ER 500MG Atorvastatin Calcium 20 Mg Tablet, 20 MG PO HS, (Reported) B Complex with Vitamin C 1 Each Tablet, 1 TAB PO DAILY, (Reported) Bethanechol Chloride 10 Mg Tablet, 10 MG PO BID, (Reported) Bisacodyl 10 Mg Supp.rect, 10 MG RC DAILY PRN for CONSTIPATION-4TH LINE, (Reported) Budesonide/Formoterol Fumarate 10.2 Gm Hfa.aer.ad, 2 PUFF IH BID, (Reported) Cholecalciferol 5,000 Unit Capsule, 5,000 UNIT PO HS, (Reported) Cinnamon Bark 500 Mg Capsule, 1,000 MG PO DAILY, (Reported) TAKES 2 (500 MG) CAPSULES Citalopram Hydrobromide 10 Mg Tablet, 10 MG PO DAILY, (Reported) Clopidogrel Bisulfate 75 Mg Tablet, 75 MG PO DAILY, (Reported) Cranberry Extract 500 Mg Tablet, 1,000 MG PO DAILY, (Reported) Docusate Sodium 100 Mg Capsule, 100 MG PO BID, (Reported) Dulaglutide 1.5 Mg/0.5 Ml Pen.injctr, 1.5 MG SQ WEEK, (Reported) Ferrous Sulfate 325 Mg Tablet, 325 MG PO DAILY, (Reported) Fluticasone Propionate 16 Gm [place].susp, 2 SPRAYS NS DAILY, (Reported) Gabapentin 300 Mg Capsule, 300 MG PO BID, (Reported) Gluc Angulo/Chondro Angulo A/Vit C/Mn 1 Each Tablet, 2 TAB PO DAILY, (Reported) Guaifenesin/Dextromethorphan 473 Ml Syrup, 10 ML PO Q4H PRN for COUGH, (Reported) Hydrocodone/Acetaminophen 1 Each Tablet, 1 TAB PO Q6H PRN for PAIN-MODERATE, (Reported) Insulin Aspart 100 Unit/1 Ml Susp, 15 UNIT SQ AC, (Reported) Insulin Detemir 100 Unit/1 Ml Insuln.pen, 45 UNIT SQ BID, (Reported) Magnesium Hydroxide/Al Hydrox 30 Ml Oral.susp, 30 ML PO DAILY PRN for CONSTIP ATION-1ST LINE, (Reported) Melatonin 3 Mg Tablet, 3 MG PO HS, (Reported) Metoprolol Succinate 100 Mg Tab.er.24h, 100 MG PO DAILY, (Reported) HOLD FOR SYSTOLIC BP <100 AND HEART RATE <60 Miconazole Nitrate 14 Gm Cream..g., 1 GM TP BID, (Reported) APPLY UNDER RIGHT BREAST Multivits W-Fe,Other Min/Lut 1 Each Tablet, 1 TAB PO TID, (Reported) Niacin 500 Mg Tablet.er, 500 MG PO HS, (Reported) [place]-3 Fatty Acids/Fish Oil 1 Each Capsule, 1,000 MG PO DAILY, (Reported) Omeprazole 20 Mg Tablet.dr, 20 MG PO DAILY Prescribed by: LOU HARDIN on 10/11/18 0904 Saxagliptin HCl 2.5 Mg Tablet, 2.5 MG PO DAILY, (Reported) Sodium Chloride 104 Ml [place], 2 SPRAYS NS Q4H PRN for DRY NOSE, (Reported) Valerian Root 500 Mg Capsule, 530 MG PO DAILY PRN for ANXIETY, (Reported) Zinc Oxide 56.7 Gm Oint...g., TP Q1H PRN for GAULDING/REDNESS, (Reported) APPLY TO BUTTOCK [Blood Sugar 360] , 1 CAP PO UD PRN for BLOOD SUGAR MAINTENANCE, (Reported) [Goodsense Hemorrhoid] , RC Q12H PRN for BLEEDING BM, (Reported) [digize oil] , TOP UD PRN for DIGESTIVE DIFFICULTIES, (Reported) MAY BE USED TOPICALLY OR DABBED INSIDE MOUTH ON CHEEK, KEEP AT BEDSIDE AND SELF ADMINISTER FOR DIGESTIVE DIFFICULTIES. Patient Home Medication List Home Medication List Reviewed: Yes Review of Systems Review of Systems Constitutional: see HPI EENTM: See HPI Respiratory: See HPI Cardiovascular: No Symptoms Reported Gastrointestinal: No Symptoms Reported Genitourinary: No Symptoms Reported Musculoskeletal: no symptoms reported Skin: no symptoms reported Psychiatric/Neurological: No Symptoms Reported Endocrine: No Symptoms Reported Hematologic/Lymphatic: No Symptoms Reported Past Ohaaqpz-Pgeoul-Akbsod Hx Past Med/Social Hx: Reviewed and Corrections made Patient Social History Alcohol Use: Denies Use Recreational Drug Use: No Smoking Status: Former Smoker Type Used: Cigarettes Former Smoker, Quit: Sep 13, 1999 2nd Hand Smoke Exposure: No Recent Foreign Travel: No Contact w/Someone Who Travel: No Recent Infectious Disease Expo: No Recent Hopitalizations: No Immunizations Up To Date Tetanus Booster (TDap): Unknown Seasonal Allergies Seasonal Allergies: Yes Past Medical History Surgeries: Yes Cardiac (coronary angiography 2011 showing no obstructive disease), Joint Replacement, Nose, Orthopedic Respiratory: Yes (03/2017-REPSIRATORY ARREST DUE TO ASPIRATION WITH ASPIRATION PNEUMONIA) Pneumonia, Sleep Apnea, COPD Currently Using CPAP: No Currently Using BIPAP: No Cardiac: Yes Chronic Edema/Swelling, Coronary Artery Disease, High Cholesterol Neurological: Yes (CVA WITH LEFT SIDE FLACCID PARALYSIS, DYSPHAGIA AND DYSPHASIA) Stroke 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 Disorders: No 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 Genitourinary: Yes (OVERACTIVE BLADDER) Kidney Stones, Renal Failure Gastrointestinal: Yes (DYSPHAGIA) Gastroesophageal Reflux, Chronic Constipation, Hemorrhoids, Ulcer Musculoskeletal: Yes Arthritis Endocrine: Yes Diabetes, Insulin dep HEENT: Yes (Nasal SX; DYSPHAGIA; CHRONIC RHINITIS) Dysphagia Loss of Vision: Denies Hearing Impairment: Denies Cancer: No Psychosocial: Yes Sleep Difficulties, Anxiety, Depression Integumentary: No Blood Disorders: No Adverse Reaction/Blood Tranf: No (No bllod transfusions d/t JW) Family Medical History Completed stroke 19 FATHER G8 BROTHER Diabetes mellitus G8 BROTHER Hypertension 19 FATHER 19 MOTHER CVA, Diabetes Physical Exam Vital Signs Vital Signs - First Documented 02/19/19 08:04 Temp 99.9 Pulse 86 Resp 17 B/P (MAP) 155/91 (112) Pulse Ox 92 O2 Delivery Room Air O2 Flow Rate 2.00 Capillary Refill : Less Than 3 Seconds Height, Weight, BMI Height: 5'6.00" Weight: 280lbs. 0.0oz. 127.943360co; 40.8 BMI Method:Stated General Appearance: No Apparent Distress, WD/WN HEENT: PERRL/EOMI, TMs Normal, Normal ENT Inspection, Pharynx Normal Neck: Normal Inspection Respiratory: Lungs Clear, No Respiratory Distress, Accessory Muscle Use; No Crackles, No Wheezing; Other (Increased work of breathing without distress) Cardiovascular: Regular Rate, Rhythm, No Edema, No Murmur Gastrointestinal: Normal Bowel Sounds, Non Tender Extremity: Other (Chronic edema, erythema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: Alert, Oriented x3, Normal Mood/Affect, multisensor intelligence officer II-XII Norm as Tested, Motor Weakness (Or loss of the left extremities from prior stroke) Skin: Normal Color, Warm/Dry, Erythema (Chronic on the lower extremities) Focused Exam Lactate Level 02/19/19 08:20: Lactic Acid Level 1.66 Lactic Acid Level Laboratory Tests Test 02/19/19 08:20 Lactic Acid Level 1.66 MMOL/L (0.50-2.00) Progress/Results/Core Measures Results/Orders Lab Results Laboratory Tests Test 02/19/19 08:20 Range/Units White Blood Count 11.7 H 4.3-11.0 10^3/uL Red Blood Count 4.89 4.35-5.85 10^6/uL Hemoglobin 13.4 11.5-16.0 G/DL Hematocrit 41 35-52 % Mean Corpuscular Volume 84 80-99 FL Mean Corpuscular Hemoglobin 27 25-34 PG Mean Corpuscular Hemoglobin Concent 33 32-36 G/DL Red Cell Distribution Width 14.7 H 10.0-14.5 % Platelet Count 202 130-400 10^3/uL Mean Platelet Volume 10.4 7.4-10.4 FL Neutrophils (%) (Auto) 80 H 42-75 % Lymphocytes (%) (Auto) 11 L 12-44 % Monocytes (%) (Auto) 9 0-12 % Eosinophils (%) (Auto) 1 0-10 % Basophils (%) (Auto) 0 0-10 % Neutrophils # (Auto) 9.4 H 1.8-7.8 X 10^3 Lymphocytes # (Auto) 1.3 1.0-4.0 X 10^3 Monocytes # (Auto) 1.0 0.0-1.0 X 10^3 Eosinophils # (Auto) 0.1 0.0-0.3 10^3/uL Basophils # (Auto) 0.0 0.0-0.1 10^3/uL Prothrombin Time 13.8 12.2-14.7 SEC INR Comment 1.0 0.8-1.4 Activated Partial Thromboplast Time 28 24-35 SEC D-Dimer 1.04 H 0.00-0.49 UG/ML Sodium Level 136 135-145 MMOL/L Potassium Level 4.7 3.6-5.0 MMOL/L Chloride Level 105 98-107 MMOL/L Carbon Dioxide Level 18 L 21-32 MMOL/L Anion Gap 13 5-14 MMOL/L Blood Urea Nitrogen 15 7-18 MG/DL Creatinine 1.53 H 0.60-1.30 MG/DL Estimat Glomerular Filtration Rate 34 BUN/Creatinine Ratio 10 Glucose Level 152 H 70-105 MG/DL Lactic Acid Level 1.66 0.50-2.00 MMOL/L Calcium Level 9.7 8.5-10.1 MG/DL Corrected Calcium 9.9 8.5-10.1 MG/DL Magnesium Level 1.8 1.8-2.4 MG/DL Total Bilirubin 0.6 0.1-1.0 MG/DL Aspartate Amino Transf (AST/SGOT) 20 5-34 U/L Alanine Aminotransferase (ALT/SGPT) 18 0-55 U/L Alkaline Phosphatase 96 40-136 U/L Myoglobin 67.0 10.0-92.0 NG/ML Troponin I < 0.028 <0.028 NG/ML C-Reactive Protein High Sensitivity 4.77 H 0.00-0.50 MG/DL B-Type Natriuretic Peptide 322.2 H <100.0 PG/ML Total Protein 7.8 6.4-8.2 GM/DL Albumin 3.8 3.2-4.5 GM/DL My Orders Orders - SAMINA HOWARD MD Cbc With Automated Diff (02/19/19 08:15) Magnesium (02/19/19 08:15) Chest 1 View, Ap/Pa Only (02/19/19 08:15) Ekg Tracing (02/19/19 08:15) Cardiac Profile 1 (02/19/19 08:15) Comprehensive Metabolic Panel (02/19/19 08:15) Myoglobin Serum (02/19/19 08:15) Protime With Inr (02/19/19 08:15) Partial Thromboplastin Time (02/19/19 08:15) O2 (02/19/19 08:15) Monitor-Rhythm Ecg Trace Only (02/19/19 08:15) Ed Iv/Invasive Line Start (02/19/19 08:15) BNP (02/19/19 08:15) Albuterol/Ipra Inhalation Soln (Duoneb I (02/19/19 08:15) Svn Small Volume Nebulizer (02/19/19 08:15) Hs C Reactive Protein (02/19/19 08:15) Blood Culture (02/19/19 08:15) Sputum Culture (02/19/19 08:15) Urinalysis (02/19/19 08:15) Urine Culture (02/19/19 08:15) Vital Signs Adult Sepsis Patie Q15M (02/19/19 08:15) Remove Rings In Anticipation O (02/19/19 08:15) Lactic Acid Analyzer (02/19/19 08:15) Aspirin Chewable Tablet (Baby Aspirin Ch (02/19/19 08:15) Fibrin Degradation Products (02/19/19 09:46) Echo W Doppler/Color Flow (02/19/19 10:46) Us Venous Lower Ext [place] (02/19/19 10:46) Apixaban Tablet (Eliquis Tablet) (02/19/19 14:00) Medications Given in ED Current Medications Medications Dose Ordered Sig/Helen Route Start Time Stop Time Status Last Admin Dose Admin Albuterol/ Ipratropium 3 ml ONCE ONCE INH 02/19/19 08:15 02/19/19 08:17 DC 02/19/19 08:20 3 ML Apixaban 10 mg ONCE ONCE PO 02/19/19 14:00 02/19/19 14:01 DC 02/19/19 14:25 10 MG Aspirin 324 mg ONCE ONCE PO 02/19/19 08:15 02/19/19 08:17 DC 02/19/19 08:37 324 MG Vital Signs/I&O 02/19/19 02/19/19 02/19/19 02/19/19 08:04 08:04 08:20 16:28 Temp 99.9 97.0 Pulse 86 86 Resp 17 17 B/P (MAP) 155/91 (112) 144/88 (106) Pulse Ox 92 94 98 94 O2 Delivery Room Air Nasal Cannula Room Air Room Air O2 Flow Rate 2.00 Blood Pressure Mean: 112 Progress Progress Note : Progress Note Patient received a DuoNeb treatment because of increased work of breathing. Septic workup was pursued. Chest x-ray did not reveal any pneumonia. CRP was not significantly elevated. BNP was mildly elevated. D-dimer was obtained and was elevated. Patient's creatinine elevation did not make her a good candidate for CT angiogram. I discussed the case with Dr. Calderon who suggested echocardiogram and lower extremity Dopplers. Lower extremity Doppler demonstrated a partial nonocclusive thrombus of the left leg. Patient remained stable on room air oxygen. Because of DVT and possible pulmonary embolus, patient was started on Eliquis. She will discontinue Plavix while on Eliquis. Echocardiogram demonstrated pulmonary hypertension without failure or right heart strain. Patient was afebrile while in the emergency room. Initial ECG Impression Date: Feb 19, 2019 Initial ECG Impression Time: 08:20 Initial ECG Rate: 85 Initial ECG Rhythm: Normal Sinus Comment Sinus rhythm with no ST elevation or depression. No abnormal intervals or axis deviation. Diagnostic Imaging Diagonstic Imaging: Xray Plain Films/CT/US/NM/MRI: chest Comments Chest x-ray viewed by me and report reviewed. See report below: NAME: MIRIAM RODRIGUES [facility] REC#: [id number] PT STATUS: REG ER : 1950 PHYSICIAN: SAMINA HOWARD MD ADMIT DATE: 02/19/19/ER Signed Date of Exam: 02/19/19 CHEST 1 VIEW, AP/PA ONLY INDICATION: Shortness of breath. Comparison is made with prior examination from 08/29/2017. FINDINGS: There is cardiomegaly. There is some minimal venous congestion. There is no pleural effusion, pneumothorax or pneumonia. Mediastinum is unremarkable. IMPRESSION: Cardiomegaly and minimal central pulmonary venous congestion. Dictated by: Dictated on workstation # [id number] Dict: 02/19/19901 Trans: 02/19/19939 Interpreted by: NAY AARON MD Electronically signed by: NAY AARON MD 02/19/19939 Diagonstic Imaging: Ultrasound Plain Films/CT/US/NM/MRI: leg Comments Venous Doppler of the lower extremities discussed with the medical records technician and report reviewed. See report below: NAME: MIRIAM RODRIGUES [facility] REC#: [id number] PT STATUS: REG ER : 1950 PHYSICIAN: SAMINA HOWARD MD ADMIT DATE: 02/19/19/ER Draft Date of Exam:02/19/19 US VENOUS LOWER EXT [place] PROCEDURE: US Venous Lower Ext [place]. TECHNIQUE: Multiple real-time grayscale images were obtained over the lower extremities in various projections, bilaterally. Additional duplex Doppler and color Doppler images were also obtained. INDICATION: Pain and swelling. FINDINGS: There is some questionable non-occlusive thrombus in the left popliteal vein. The remaining lower extremity venous system is widely patent. All of the remaining veins demonstrate normal response to compression, augmentation, and Valsalva. There are no abnormal fluid collections or masses. IMPRESSION: Findings suspect for some focal non-occlusive deep venous thrombosis in the left popliteal vein. The remainder of the lower extremity venous system is patent. Dictated on workstation # [id number] Dict: 02/19/19 1242 Trans: 02/19/19 1246 [id number] Interpreted by: NAY AARON MD Departure Impression Primary Impression: Left leg DVT Qualified Codes: I82.432 - Acute embolism and thrombosis of left popliteal vein Additional Impressions: Atypical chest pain COPD exacerbation Disposition: HOME, SELF-CARE Condition: Improved Departure-Patient Inst. Decision time for Depature: 14:00 Referrals: HERMINIA YAO MD (PCP/Family) Primary Care Physician Patient Instructions: Deep Vein Thrombosis (Blood Clots in the Legs) Add. Discharge Instructions: STOP Plavix (clopidogrel). Continue aspirin. START Eliquis. Follow-up with Dr. Calderon as soon as possible. Call Wednesday for appoin tment. Follow-up with primary care provider soon as possible. Call Wednesday for appointment. Use albuterol nebulizer treatments as directed for shortness of breath or wheezing. Return to care if symptoms worsen. Stop Eliquis and notify physician or seek care immediately if any bleeding occurs. All discharge instructions reviewed with patient and/or family. Voiced understa nding. Scripts Apixaban (Eliquis) 5 Mg Tablet 5 MG PO BID for 30 Days, #72 TAB TAKE 2 TABLETS BID X 7 DAYS, THEN 1 TABLET BID Prov: SAMINA HOWARD MD 02/19/19 Albuterol Sulfate (Albuterol Sulfate) 2.5 Mg/3 Ml Vial.neb 2.5 MG INH Q4H PRN for WHEEZING, #50 EA 1 Refill Prov: SAMINA HOWARD MD 02/19/19 Copy Copies To 1: HERMINIA YAO MD, JOSHUA T MD Feb 19, 2019 08:58
[2019-02-19 09:00] LABS: ALKALINE PHOSPHATASE 96 U/L (40-136); BILIRUBIN,TOTAL 0.6 MG/DL (0.1-1.0); BUN/CREATININE RATIO 10; CALCIUM 9.7 MG/DL (8.5-10.1); CARBON DIOXIDE 18 MMOL/L (21-32); CHLORIDE 105 MMOL/L (98-107); CREATININE SERUM 1.53 MG/DL (0.60-1.30); GFR ESTIMATED 34; GLUCOSE 152 MG/DL (70-105); MAGNESIUM 1.8 MG/DL (1.8-2.4); POTASSIUM 4.7 MMOL/L (3.6-5.0); SODIUM 136 MMOL/L (135-145)
[2019-02-19 09:01] LABS: ALANINE AMINOTRANSFERASE 18 U/L (0-55); ALBUMIN 3.8 GM/DL (3.2-4.5); TOTAL PROTEIN 7.8 GM/DL (6.4-8.2)
--- NOTE | 2019-02-19 09:22 | Diagnostic Imaging Report ---
INDICATION: Shortness of breath. Comparison is made with prior examination from 08/29/2017. FINDINGS: There is cardiomegaly. There is some minimal venous congestion. There is no pleural effusion, pneumothorax or pneumonia. Mediastinum is unremarkable. IMPRESSION: Cardiomegaly and minimal central pulmonary venous congestion. Dictated by: Dictated on workstation # [id number]
--- NOTE | 2019-02-19 12:46 | Diagnostic Imaging Report ---
PROCEDURE: US Venous Lower Ext [place]. TECHNIQUE: Multiple real-time grayscale images were obtained over the lower extremities in various projections, bilaterally. Additional duplex Doppler and color Doppler images were also obtained. INDICATION: Pain and swelling. FINDINGS: There is some questionable non-occlusive thrombus in the left popliteal vein. The remaining lower extremity venous system is widely patent. All of the remaining veins demonstrate normal response to compression, augmentation, and Valsalva. There are no abnormal fluid collections or masses. IMPRESSION: Findings suspect for some focal non-occlusive deep venous thrombosis in the left popliteal vein. The remainder of the lower extremity venous system is patent. Dictated by: Dictated on workstation # [id number]
[2019-02-19] MEDS ORDERED: APIXABAN 5 MG (ELIQUIS) TABLET PO ONE (14:00)
[2019-02-19] MEDS ORDERED: ALBU2.5V4 INH (14:04)
[2019-02-19] MEDS ORDERED: APIX5TAB PO (14:04)
[2019-02-19 16:28] VITALS: BP 144/88
== END 2019-02-19 14:26 | disposition home or self-care (01) ==
LOC: EDUNIT# 08:03 → ER 08:04
DX: I82.402 Acute embolism and thrombosis of unspecified deep veins of left lower extremity (principal); R07.89 Other chest pain; J44.1 Chronic obstructive pulmonary disease with (acute) exacerbation; G47.30 Sleep apnea, unspecified; I25.10 Atherosclerotic heart disease of native coronary artery without angina pectoris; E78.00 Pure hypercholesterolemia, unspecified; K21.9 Gastro-esophageal reflux disease without esophagitis; F41.9 Anxiety disorder, unspecified; F32.9 Major depressive disorder, single episode, unspecified; Z87.19 Personal history of other diseases of the digestive system; Z87.448 Personal history of other diseases of urinary system; Z87.442 Personal history of urinary calculi; Z88.2 Allergy status to sulfonamides; Z82.49 Family history of ischemic heart disease and other diseases of the circulatory system; Z88.8 Allergy status to other drugs, medicaments and biological substances; Z86.73 Personal history of transient ischemic attack (TIA), and cerebral infarction without residual deficits; Z79.01 Long term (current) use of anticoagulants; Z79.82 Long term (current) use of aspirin; Z79.02 Long term (current) use of antithrombotics/antiplatelets; Z79.51 Long term (current) use of inhaled steroids; Z79.4 Long term (current) use of insulin; Z87.891 Personal history of nicotine dependence; Z87.09 Personal history of other diseases of the respiratory system; Z87.01 Personal history of pneumonia (recurrent)
CPT/HCPCS: 36415; 71045; 80053; 83605; 83735; 83874; 83880; 84484; 85025; 85379; 85610; 85730; 86141; 87040; 93005; 93041; 93306; 93970; 94640

== ENCOUNTER 2019-04-19 10:14 | Inpatient (IN) | payer MEDICARE, MEDICAID ==
[2019-04-19] VITALS (9 sets, daily range): BP systolic 92–196; BP diastolic 48–86
[~2019-04-19] VITALS: Ht 167.6 cm; Wt 117.0 kg
[~2019-04-19 10:14] MED LIST changes: +ALBU2.5V4 INH; +APIX5TAB PO; -BISA10SU6 RC; +BISA10SU8 RC
[2019-04-19] MEDS ORDERED: RT-ALBUTEROL/IPRATROPIUM 3 ML (DUONEB) VIAL ONE (10:32)
[2019-04-19] MEDS ORDERED: NS IV 1000 ML 1,000 ML IV SCH ×2 (10:34→14:30)
--- NOTE | 2019-04-19 10:38 | ED General ---
General Chief Complaint: General Problems/Pain Stated Complaint: GENERAL WEAKNESS Source of Information: Patient, Group Home Records Exam Limitations: Physical Impairments History of Present Illness Date Seen by Provider: Apr 19, 2019 Time Seen by Provider: 10:36 Initial Comments This 68-year-old female presents with a history of fever and generalized weakness from the half-way. The patient has had recent cellulitis of lower extremities. Her temperature was reported to be 105 when she was transferred to the emergency department. Allergies and Home Medications Allergies Coded Allergies: sulfamethoxazole (Verified Allergy, Unknown, 10/13/17) trimethoprim (Verified Allergy, Unknown, 10/13/17) Home Medications Acetaminophen 500 Mg Tablet, 1,000 MG PO Q6H PRN for MILD PAIN/FEVER, (Reported) Albuterol Sulfate 2.5 Mg/3 Ml Vial.neb, 2.5 MG INH Q4H PRN for WHEEZING Prescribed by: SAMINA CARABALLO on 02/19/19 1404 Amlodipine Besylate 5 Mg Tablet, 5 MG PO DAILY, (Reported) HOLD IF SYSTOLIC <110 Apixaban 5 Mg Tablet, 5 MG PO BID TAKE 2 TABLETS BID X 7 DAYS, THEN 1 TABLET BID Prescribed by: SAMINA CARABALLO on 02/19/19 1404 Aspirin 81 Mg Tab.chew, 81 MG PO HS, (Reported) GIVE 30 MINUTES PRIOR TO ADMINISTRATION OF ENDUR-ACIN (NIASPAN) ER 500MG Atorvastatin Calcium 20 Mg Tablet, 20 MG PO HS, (Reported) B Complex with Vitamin C 1 Each Tablet, 1 TAB PO DAILY, (Reported) Bethanechol Chloride 10 Mg Tablet, 10 MG PO BID, (Reported) Bisacodyl 10 Mg Supp.rect, 10 MG RC DAILY PRN for CONSTIPATION-4TH LINE, (Reported) Budesonide/Formoterol Fumarate 10.2 Gm Hfa.aer.ad, 2 PUFF IH BID, (Reported) Cholecalciferol 5,000 Unit Capsule, 5,000 UNIT PO HS, (Reported) Cinnamon Bark 500 Mg Capsule, 1,000 MG PO DAILY, (Reported) TAKES 2 (500 MG) CAPSULES Citalopram Hydrobromide 10 Mg Tablet, 10 MG PO DAILY, (Reported) Clopidogrel Bisulfate 75 Mg Tablet, 75 MG PO DAILY, (Reported) Cranberry Extract 500 Mg Tablet, 1,000 MG PO DAILY, (Reported) Docusate Sodium 100 Mg Capsule, 100 MG PO BID, (Reported) Dulaglutide 1.5 Mg/0.5 Ml Pen.injctr, 1.5 MG SQ WEEK, (Reported) Ferrous Sulfate 325 Mg Tablet, 325 MG PO DAILY, (Reported) Fluticasone Propionate 16 Gm [place].susp, 2 SPRAYS NS DAILY, (Reported) Gabapentin 300 Mg Capsule, 300 MG PO BID, (Reported) Gluc Angulo/Chondro Angulo A/Vit C/Mn 1 Each Tablet, 2 TAB PO DAILY, (Reported) Guaifenesin/Dextromethorphan 473 Ml Syrup, 10 ML PO Q4H PRN for COUGH, (Reported) Hydrocodone/Acetaminophen 1 Each Tablet, 1 TAB PO Q6H PRN for PAIN-MODERATE, (Reported) Insulin Aspart 100 Unit/1 Ml Susp, 15 UNIT SQ AC, (Reported) Insulin Detemir 100 Unit/1 Ml Insuln.pen, 45 UNIT SQ BID, (Reported) Magnesium Hydroxide/Al Hydrox 30 Ml Oral.susp, 30 ML PO DAILY PRN for CONSTIPATION-1ST LINE, (Reported) Melatonin 3 Mg Tablet, 3 MG PO HS, (Reported) Metoprolol Succinate 100 Mg Tab.er.24h, 100 MG PO DAILY, (Reported) HOLD FOR SYSTOLIC BP <100 AND HEART RATE <60 Miconazole Nitrate 14 Gm Cream..g., 1 GM TP BID, (Reported) APPLY UNDER RIGHT BREAST Multivits W-Fe,Other Min/Lut 1 Each Tablet, 1 TAB PO TID, (Reported) Niacin 500 Mg Tablet.er, 500 MG PO HS, (Reported) [place]-3 Fatty Acids/Fish Oil 1 Each Capsule, 1,000 MG PO DAILY, (Reported) Omeprazole 20 Mg Tablet.dr, 20 MG PO DAILY Prescribed by: LOU HARDIN on 10/11/18 0904 Saxagliptin HCl 2.5 Mg Tablet, 2.5 MG PO DAILY, (Reported) Sodium Chloride 104 Ml [place], 2 SPRAYS NS Q4H PRN for DRY NOSE, (Reported) Valerian Root 500 Mg Capsule, 530 MG PO DAILY PRN for ANXIETY, (Reported) Zinc Oxide 56.7 Gm Oint...g., TP Q1H PRN for GAULDING/REDNESS, (Reported) APPLY TO BUTTOCK [Blood Sugar 360] , 1 CAP PO UD PRN for BLOOD SUGAR MAINTENANCE, (Reported) [Goodsense Hemorrhoid] , RC Q12H PRN for BLEEDING BM, (Reported) [digize oil] , TOP UD PRN for DIGESTIVE DIFFICULTIES, (Reported) MAY BE USED TOPICALLY OR DABBED INSIDE MOUTH ON CHEEK, KEEP AT BEDSIDE AND SELF ADMINISTER FOR DIGESTIVE DIFFICULTIES. Patient Home Medication List Home Medication List Reviewed: Yes Review of Systems Review of Systems Constitutional: fever EENTM: no symptoms reported Respiratory: dyspnea on exertion, short of breath Cardiovascular: No chest pain Gastrointestinal: no symptoms reported Genitourinary: no symptoms reported Musculoskeletal: no symptoms reported Skin: no symptoms reported Psychiatric/Neurological: No Symptoms Reported Hematologic/Lymphatic: No Symptoms Reported Immunological/Allergic: no symptoms reported Past Ttjwvaa-Salsxi-Hwrtyg Hx Past Med/Social Hx: Reviewed Nursing Past Med/Soc Hx Patient Social History Type Used: Cigarettes Former Smoker, Quit: Sep 13, 1999 2nd Hand Smoke Exposure: No Recent Foreign Travel: No Contact w/Someone Who Travel: No Recent Hopitalizations: No Immunizations Up To Date Tetanus Booster (TDap): Unknown Seasonal Allergies Seasonal Allergies: Yes Past Medical History Surgeries: Yes Cardiac, Joint Replacement, Nose, Orthopedic Respiratory: Yes (03/2017-REPSIRATORY ARREST DUE TO ASPIRATION WITH ASPIRATION PNEUMONIA) Pneumonia, Sleep Apnea, COPD Currently Using CPAP: No Currently Using BIPAP: No Cardiac: Yes Chronic Edema/Swelling, Coronary Artery Disease, High Cholesterol Neurological: Yes (CVA WITH LEFT SIDE FLACCID PARALYSIS, DYSPHAGIA AND DYSP HASIA) Stroke 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 Disorders: 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 Genitourinary: Yes (OVERACTIVE BLADDER) Kidney Stones, Renal Failure Gastrointestinal: Yes (DYSPHAGIA) Gastroesophageal Reflux, Chronic Constipation, Hemorrhoids, Ulcer Musculoskeletal: Yes Arthritis Endocrine: Yes Diabetes, Insulin dep HEENT: Yes (Nasal SX; DYSPHAGIA; CHRONIC RHINITIS) Dysphagia Loss of Vision: Denies Hearing Impairment: Denies Cancer: No Psychosocial: Yes Sleep Difficulties, Anxiety, Depression Integumentary: No Blood Disorders: No Adverse Reaction/Blood Tranf: No (No bllod transfusions d/t TAYE) Family Medical History Completed stroke 19 FATHER G8 BROTHER Diabetes mellitus G8 BROTHER Hypertension 19 FATHER 19 MOTHER CVA, Diabetes Physical Exam-Suspected Sepsis Physical Exam Vital Signs Vital Signs - First Documented 04/19/19 04/19/19 10:26 10:31 Temp 105.0 Pulse 123 Resp 22 B/P (MAP) 196/82 (120) Pulse Ox 94 O2 Delivery Nasal Cannula O2 Flow Rate 15.00 FiO2 60 Capillary Refill : Height, Weight, BMI Height: 5'6.00" Weight: 280lbs. 0.0oz. 127.349971dz; 40.8 BMI Method:Stated General Appearance: Moderate Distress, Obese Eyes: Bilateral Eye Normal Inspection HEENT: Normal ENT Inspection Neck: Normal Inspection Respiratory: Decreased Breath Sounds Cardiovascular: Tachycardia Gastrointestinal: Normal Bowel Sounds, Soft Extremity: Pedal Edema Neurologic/Psychiatric: No Motor/Sensory Deficits Skin: normal color, warm/dry Focused Exam Lactate Level 04/19/19 10:35: Lactic Acid Level 1.52 Lactic Acid Level Laboratory Tests Test 04/19/19 10:35 Lactic Acid Level 1.52 MMOL/L (0.50-2.00) Progress/Results/Core Measures Suspected Sepsis SIRS Temperature: Pulse: Respiratory Rate: Laboratory Tests 04/19/19 10:35: White Blood Count 15.9H Blood Pressure / Mean: 04/19/19 10:35: Lactic Acid Level 1.52 Laboratory Tests 04/19/19 10:35: Creatinine 1.82H, INR Comment 1.5H, Platelet Count 291, Total Bilirubin 0.5 Results/Orders Lab Results Laboratory Tests Test 04/19/19 10:35 04/19/19 11:45 Range/Units White Blood Count 15.9 H 4.3-11.0 10^3/uL Red Blood Count 3.48 L 4.35-5.85 10^6/uL Hemoglobin 9.2 L 11.5-16.0 G/DL Hematocrit 29 L 35-52 % Mean Corpuscular Volume 84 80-99 FL Mean Corpuscular Hemoglobin 26 25-34 PG Mean Corpuscular Hemoglobin Concent 32 32-36 G/DL Red Cell Distribution Width 15.7 H 10.0-14.5 % Platelet Count 291 130-400 10^3/uL Mean Platelet Volume 9.2 7.4-10.4 FL Neutrophils (%) (Auto) 89 H 42-75 % Lymphocytes (%) (Auto) 7 L 12-44 % Monocytes (%) (Auto) 5 0-12 % Eosinophils (%) (Auto) 0 0-10 % Basophils (%) (Auto) 0 0-10 % Neutrophils # (Auto) 14.1 H 1.8-7.8 X 10^3 Lymphocytes # (Auto) 1.0 1.0-4.0 X 10^3 Monocytes # (Auto) 0.8 0.0-1.0 X 10^3 Eosinophils # (Auto) 0.0 0.0-0.3 10^3/uL Basophils # (Auto) 0.0 0.0-0.1 10^3/uL Neutrophils % (Manual) 82 % Lymphocytes % (Manual) 9 % Monocytes % (Manual) 2 % Eosinophils % (Manual) 0 % Basophils % (Manual) 0 % Band Neutrophils 7 % Polychromasia SLIGHT Anisocytosis SLIGHT Prothrombin Time 18.8 H 12.2-14.7 SEC INR Comment 1.5 H 0.8-1.4 Activated Partial Thromboplast Time 37 H 24-35 SEC Sodium Level 133 L 135-145 MMOL/L Potassium Level 4.4 3.6-5.0 MMOL/L Chloride Level 100 98-107 MMOL/L Carbon Dioxide Level 22 21-32 MMOL/L Anion Gap 11 5-14 MMOL/L Blood Urea Nitrogen 18 7-18 MG/DL Creatinine 1.82 H 0.60-1.30 MG/DL Estimat Glomerular Filtration Rate 28 BUN/Creatinine Ratio 10 Glucose Level 170 H 70-105 MG/DL Lactic Acid Level 1.52 0.50-2.00 MMOL/L Calcium Level 9.6 8.5-10.1 MG/DL Corrected Calcium 9.9 8.5-10.1 MG/DL Total Bilirubin 0.5 0.1-1.0 MG/DL Aspartate Amino Transf (AST/SGOT) 21 5-34 U/L Alanine Aminotransferase (ALT/SGPT) 13 0-55 U/L Alkaline Phosphatase 131 40-136 U/L Total Protein 7.8 6.4-8.2 GM/DL Albumin 3.6 3.2-4.5 GM/DL Urine Color YELLOW Urine Clarity CLEAR Urine pH 7 5-9 Urine Specific [place] 1.010 L 1.016-1.022 Urine Protein 3+ H NEGATIVE Urine Glucose (UA) 4+ H NEGATIVE Urine Ketones NEGATIVE NEGATIVE Urine Nitrite NEGATIVE NEGATIVE Urine Bilirubin NEGATIVE NEGATIVE Urine Urobilinogen NORMAL NORMAL MG/DL Urine Leukocyte Esterase 3+ H NEGATIVE Urine RBC (Auto) 2+ H NEGATIVE Urine RBC 0-2 /HPF Urine WBC >100 H /HPF Urine Crystals NONE /LPF Urine Bacteria TRACE /HPF Urine Casts NONE /LPF Urine Mucus NEGATIVE /LPF Urine Culture Indicated YES My Orders Orders - ABDULLAHI ANNE MD Cbc With Automated Diff (04/19/19 10:34) Comprehensive Metabolic Panel (04/19/19 10:34) Blood Culture (04/19/19 10:34) Sputum Culture (04/19/19 10:34) Urinalysis (04/19/19 10:34) Urine Culture (04/19/19 10:34) Protime With Inr (04/19/19 10:34) Partial Thromboplastin Time (04/19/19 10:34) Chest 1 View, Ap/Pa Only (04/19/19 10:34) Acetaminophen Tablet (Tylenol Tablet) (04/19/19 10:45) Ed Iv/Invasive Line Start (04/19/19 10:34) Ed Iv/Invasive Line Start (04/19/19 10:34) Vital Signs Adult Sepsis Patie Q15M (04/19/19 10:34) Ondansetron Injection (Zofran Injectio (04/19/19 10:45) O2 (04/19/19 10:34) Remove Rings In Anticipation O (04/19/19 10:34) Lactic Acid Analyzer (04/19/19 10:34) Ns Iv 1000 Ml (Sodium Chloride 0.9%) (04/19/19 10:34) Piperacillin Sodium/Tazobactam (Zosyn Vi (04/19/19 10:45) Albuterol/Ipra Inhalation Soln (Duoneb I (04/19/19 10:32) Manual Differential (04/19/19 10:35) Catheter(Uri) To Dependent Janie (04/19/19 11:34) Medications Given in ED Current Medications Medications Dose Ordered Sig/Helen Route Start Time Stop Time Status Last Admin Dose Admin Acetaminophen 1,000 mg ONCE PRN PO 04/19/19 10:45 04/19/19 11:08 DC 04/19/19 11:04 1,000 MG Ondansetron HCl 4 mg PRN PRN IV 04/19/19 10:45 04/19/19 11:08 DC 04/19/19 11:04 4 MG Piperacillin Sod/ Tazobactam Sod 4.5 gm/Sodium Chloride 100 ml @ 200 mls/hr ONCE ONCE IV 04/19/19 10:45 04/19/19 11:14 DC 04/19/19 11:07 200 MLS/HR Vital Signs/I&O 04/19/19 04/19/19 04/19/19 04/19/19 10:26 10:31 10:31 10:39 Temp 105.0 105.0 Pulse 123 123 Resp 22 22 B/P (MAP) 196/82 (120) 196/82 (120) Pulse Ox 94 98 98 O2 Delivery Nasal Cannula NIV Bilevel NIV Bilevel O2 Flow Rate 15.00 15.00 2.00 15.00 FiO2 60 04/19/19 04/19/19 04/19/19 10:47 11:04 11:29 Temp 105.0 104.3 Pulse 111 80 Resp 41 22 B/P (MAP) 137/78 Pulse Ox 99 98 O2 Delivery NIV/Bilevel O2 Flow Rate 60.00 15.00 Capillary Refill : Progress Note : Time: 12:50 Progress Note The patient's laboratory evaluation demonstrated no evidence of an acute infiltrate on her 1 view chest x-ray. There was a leukocytosis. There was evidence supportive of urinary tract infection. I placed a call to Dr. Singh for her assistance in further care and treatment of the patient. The patient received Zosyn 4.5 g IV. 120 p.m. The patient's respiratory distress was significantly improved with BiPAP. Elocon sedation was undertaken with Dr. Singh. Patient was admitted to the ICU. I placed a consult to Dr. Patel for his assistance in the patient's BiPAP. Patient was doing well at time of transfer to the ICU. She received 4.5 g of Zosyn IV Departure Communication (Admissions) Time/Spoke to Admitting Phy: 13:22 Dr. Singh Time/Spoke to Consulting Phy: 13:22 Dr. Patel Impression Primary Impression: Respiratory failure Qualified Codes: J96.00 - Acute respiratory failure, unspecified whether with hypoxia or hypercapnia Additional Impressions: Acute sepsis UTI (urinary tract infection) Qualified Codes: N30.00 - Acute cystitis without hematuria Disposition: ADMITTED INPATIENT Condition: Improved Admissions Decision to Admit Reason: Admit from ER (General) Decision to Admit/Date: Apr 19, 2019 Time/Decision to Admit Time: 13:23 Departure-Patient Inst. Referrals: HERMINIA YAO MD (PCP/Family) Primary Care Physician ABDULLAHI ANNE MD Apr 19, 2019 10:38
[2019-04-19] MEDS ORDERED: ACETAMINOPHEN 500 MG TAB (TYLENOL) PO PRN (10:45)
[2019-04-19] MEDS ORDERED: PIPERACILLIN SODIUM/TAZOBACTAM 4.5 GM in NS (IVPB) 100 ML IV ONE (10:45)
[2019-04-19] MEDS ORDERED: ONDANSETRON 4 MG/2 ML (SDV) Z0FRAN IV PRN (10:45)
[2019-04-19 10:47] LABS: BASOPHILS % (AUTO) 0 % (0-10); EOSINOPHILS % (AUTO) 0 % (0-10); HEMATOCRIT 29 % (35-52); HEMOGLOBIN 9.2 G/DL (11.5-16.0); LYMPHOCYTES % (AUTO) 7 % (12-44); MEAN CORPUSCULAR HEMOGLOBIN 26 PG (25-34); MEAN CORPUSCULAR HGB CONC 32 G/DL (32-36); MEAN CORPUSCULAR VOLUME 84 FL (80-99); MEAN PLATELET VOLUME 9.2 FL (7.4-10.4); MONOCYTES # (AUTO) 0.8 X 10^3 (0.0-1.0); MONOCYTES % (AUTO) 5 % (0-12); NEUTROPHILS # (AUTO) 14.1 X 10^3 (1.8-7.8); NEUTROPHILS % (AUTO) 89 % (42-75); PLATELET COUNT 291 10^3/uL (130-400); RED CELL DISTRIBUTION WIDTH 15.7 % (10.0-14.5); WHITE BLOOD COUNT 15.9 10^3/uL (4.3-11.0)
[2019-04-19 11:16] LABS: INR 1.5 (0.8-1.4); PROTHROMBIN TIME PATIENT 18.8 SEC (12.2-14.7)
[2019-04-19 11:21] LABS: BAND NEUTROPHILS 7 %; BASOPHILS % (MANUAL) 0 %; EOSINOPHILS % (MANUAL) 0 %; LYMPHOCYTES % (MANUAL) 9 %; MONOCYTES % (MANUAL) 2 %; NEUTROPHILS % (MANUAL) 82 %
[2019-04-19 11:25] LABS: ANISOCYTOSIS SLIGHT; POLYCHROMASIA SLIGHT
[2019-04-19 11:27] LABS: ALBUMIN 3.6 GM/DL (3.2-4.5); BILIRUBIN,TOTAL 0.5 MG/DL (0.1-1.0); CALCIUM 9.6 MG/DL (8.5-10.1); CREATININE SERUM 1.82 MG/DL (0.60-1.30); POTASSIUM 4.4 MMOL/L (3.6-5.0); TOTAL PROTEIN 7.8 GM/DL (6.4-8.2)
--- NOTE | 2019-04-19 11:33 | NUR ---
re-checked temp at this time - 104.3
[2019-04-19 12:06] LABS: BILIRUBIN,URINE NEGATIVE (NEGATIVE); CLARITY,URINE CLEAR; COLOR,URINE YELLOW; GLUCOSE, URINE (UA) 4+ (NEGATIVE); KETONES,URINE NEGATIVE (NEGATIVE); LEUKOCYTE ESTERASE ,URINE 3+ (NEGATIVE); NITRITE,URINE NEGATIVE (NEGATIVE); PH,URINE 7 (5-9); PROTEIN,URINE 3+ (NEGATIVE); UROBILINOGEN,URINE NORMAL (NORMAL)
[2019-04-19 12:17] LABS: BACTERIA,URINE TRACE /HPF; RBC,URINE 0-2 /HPF; WBC,URINE >100 /HPF
--- NOTE | 2019-04-19 12:46 | Diagnostic Imaging Report ---
Indication: Shortness of breath and wheezing. Time of exam 12:27 PM Correlation is made with prior study from 02/19/2019. The heart is enlarged but stable. Lungs appear to be clear. No infiltrate or failure is seen. No effusion or pneumothorax is identified. Impression: Stable chest. No acute features detected. Dictated by: Dictated on workstation # [id number]
[2019-04-19] MEDS ORDERED: NS IV 1000 ML 1,000 ML ONE (14:03)
[2019-04-19] MEDS ORDERED: ONDANSETRON 4 MG/2 ML (SDV) Z0FRAN IVP PRN (15:15)
--- NOTE | 2019-04-19 15:18 | Pulmonary Consultation ---
History of Present Illness History of Present Illness Date of Consultation 04/19/19 15:13 Time Seen by Provider: 15:13 Date of Admission History of Present Illness 68yo presented to ED secondary to worsening fever, weakness. She was found to have acute respiratory failure and fever of 105 in the ED. She was placed on IV ABX and admitted to ICU. Allergies and Home Medications Allergies Coded Allergies: sulfamethoxazole (Verified Allergy, Unknown, 10/13/17) trimethoprim (Verified Allergy, Unknown, 10/13/17) Home Medications Acetaminophen 500 Mg Tablet, 1,000 MG PO Q6H PRN for MILD PAIN/FEVER, (Reported) Albuterol Sulfate 2.5 Mg/3 Ml Vial.neb, 2.5 MG INH Q4H PRN for WHEEZING Prescribed by: SAMINA CARABALLO on 02/19/19 1404 Amlodipine Besylate 5 Mg Tablet, 5 MG PO DAILY, (Reported) HOLD IF SYSTOLIC <110 Apixaban 5 Mg Tablet, 5 MG PO BID TAKE 2 TABLETS BID X 7 DAYS, THEN 1 TABLET BID Prescribed by: SAMINA CARABALLO on 02/19/19 1404 Aspirin 81 Mg Tab.chew, 81 MG PO HS, (Reported) GIVE 30 MINUTES PRIOR TO ADMINISTRATION OF ENDUR-ACIN (NIASPAN) ER 500MG Atorvastatin Calcium 20 Mg Tablet, 20 MG PO HS, (Reported) B Complex with Vitamin C 1 Each Tablet, 1 TAB PO DAILY, (Reported) Bethanechol Chloride 10 Mg Tablet, 10 MG PO BID, (Reported) Bisacodyl 10 Mg Supp.rect, 10 MG RC DAILY PRN for CONSTIPATION-4TH LINE, (Reported) Budesonide/Formoterol Fumarate 10.2 Gm Hfa.aer.ad, 2 PUFF IH BID, (Reported) Cholecalciferol 5,000 Unit Capsule, 5,000 UNIT PO HS, (Reported) Cinnamon Bark 500 Mg Capsule, 1,000 MG PO DAILY, (Reported) TAKES 2 (500 MG) CAPSULES Citalopram Hydrobromide 10 Mg Tablet, 10 MG PO DAILY, (Reported) Clopidogrel Bisulfate 75 Mg Tablet, 75 MG PO DAILY, (Reported) Cranberry Extract 500 Mg Tablet, 1,000 MG PO DAILY, (Reported) Docusate Sodium 100 Mg Capsule, 100 MG PO BID, (Reported) Dulaglutide 1.5 Mg/0.5 Ml Pen.injctr, 1.5 MG SQ WEEK, (Reported) Ferrous Sulfate 325 Mg Tablet, 325 MG PO DAILY, (Reported) Fluticasone Propionate 16 Gm [place].susp, 2 SPRAYS NS DAILY, (Reported) Gabapentin 300 Mg Capsule, 300 MG PO BID, (Reported) Gluc Angulo/Chondro Angulo A/Vit C/Mn 1 Each Tablet, 2 TAB PO DAILY, (Reported) Guaifenesin/Dextromethorphan 473 Ml Syrup, 10 ML PO Q4H PRN for COUGH, (Reported) Hydrocodone/Acetaminophen 1 Each Tablet, 1 TAB PO Q6H PRN for PAIN-MODERATE, (Reported) Insulin Aspart 100 Unit/1 Ml Susp, 15 UNIT SQ AC, (Reported) Insulin Detemir 100 Unit/1 Ml Insuln.pen, 45 UNIT SQ BID, (Reported) Magnesium Hydroxide/Al Hydrox 30 Ml Oral.susp, 30 ML PO DAILY PRN for CONSTIPATION-1ST LINE, (Reported) Melatonin 3 Mg Tablet, 3 MG PO HS, (Reported) Metoprolol Succinate 100 Mg Tab.er.24h, 100 MG PO DAILY, (Reported) HOLD FOR SYSTOLIC BP <100 AND HEART RATE <60 Miconazole Nitrate 14 Gm Cream..g., 1 GM TP BID, (Reported) APPLY UNDER RIGHT BREAST Multivits W-Fe,Other Min/Lut 1 Each Tablet, 1 TAB PO TID, (Reported) Niacin 500 Mg Tablet.er, 500 MG PO HS, (Reported) [place]-3 Fatty Acids/Fish Oil 1 Each Capsule, 1,000 MG PO DAILY, (Reported) Omeprazole 20 Mg Tablet.dr, 20 MG PO DAILY Prescribed by: LOU HARDIN on 10/11/18 0904 Saxagliptin HCl 2.5 Mg Tablet, 2.5 MG PO DAILY, (Reported) Sodium Chloride 104 Ml [place], 2 SPRAYS NS Q4H PRN for DRY NOSE, (Reported) Valerian Root 500 Mg Capsule, 530 MG PO DAILY PRN for ANXIETY, (Reported) Zinc Oxide 56.7 Gm Oint...g., TP Q1H PRN for GAULDING/REDNESS, (Reported) APPLY TO BUTTOCK [Blood Sugar 360] , 1 CAP PO UD PRN for BLOOD SUGAR MAINTENANCE, (Reported) [Goodsense Hemorrhoid] , RC Q12H PRN for BLEEDING BM, (Reported) [digize oil] , TOP UD PRN for DIGESTIVE DIFFICULTIES, (Reported) MAY BE USED TOPICALLY OR DABBED INSIDE MOUTH ON CHEEK, KEEP AT BEDSIDE AND SELF ADMINISTER FOR DIGESTIVE DIFFICULTIES. Past Fieldtp-Tjertm-Nrjexp Hx Past Med/Social Hx: Reviewed Nursing Past Med/Soc Hx Patient Social History Alcohol Use: Denies Use Recreational Drug Use: No Smoking Status: Never a Smoker Type Used: Cigarettes Former Smoker, Quit: Sep 13, 1999 2nd Hand Smoke Exposure: No Recent Foreign Travel: No Contact w/Someone Who Travel: No Recent Infectious Disease Expo: No Recent Hopitalizations: No Physical Abuse: No Sexual Abuse: No Mistreated: No Fear: No Immunizations Up To Date Tetanus Booster (TDap): Unknown Seasonal Allergies Seasonal Allergies: Yes Past Medical History Surgeries: Yes Cardiac, Joint Replacement, Nose, Orthopedic Respiratory: Yes (03/2017-REPSIRATORY ARREST DUE TO ASPIRATION WITH ASPIRATION PNEUMONIA) Pneumonia, Sleep Apnea, COPD Currently Using CPAP: No Currently Using BIPAP: No Cardiac: Yes Chronic Edema/Swelling, Coronary Artery Disease, High Cholesterol Neurological: Yes (CVA WITH LEFT SIDE FLACCID PARALYSIS, DYSPHAGIA AND DYSPHASIA) Stroke 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 Disorders: No 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 History: Menopausal Genitourinary: Yes (OVERACTIVE BLADDER) Kidney Stones, Renal Failure Gastrointestinal: Yes (DYSPHAGIA) Gastroesophageal Reflux, Chronic Constipation, Hemorrhoids, Ulcer Musculoskeletal: Yes Arthritis Endocrine: Yes Diabetes, Insulin dep HEENT: Yes (Nasal SX; DYSPHAGIA; CHRONIC RHINITIS) Dysphagia Loss of Vision: Denies Hearing Impairment: Denies Cancer: No Psychosocial: Yes Sleep Difficulties, Anxiety, Depression Integumentary: No Blood Disorders: No Adverse Reaction/Blood Tranf: No (No bllod transfusions d/t JW) Family Medical History Completed stroke 19 FATHER G8 BROTHER Diabetes mellitus G8 BROTHER Hypertension 19 FATHER 19 MOTHER CVA, Diabetes Review of Systems Time Seen by Provider: 15:30 Constitutional: Fever, Chills, Sweats, Weakness, Malaise, Other Eyes: No: Pain, Vision change, Conjunctivae inflammation, Eyelid inflammation, Other, Redness ENT: Nose congestion; No: Ear pain, Ear discharge, Nose pain, Nose discharge, Mouth pain, Mouth swelling, Throat pain, Throat swelling, Other Respiratory: Cough, Dry, Shortness of breath, SOB with excertion Sepsis Event Evaluation Height, Weight, BMI Height: 5'9.00" Weight: 265lbs. 0.0oz. 120.435084gg; 40.8 BMI Method:Stated Exam Exam Vital Signs Date Time Temp Pulse Resp B/P (MAP) Pulse Ox O2 Delivery O2 Flow Rate FiO2 04/19/19 14:40 103.6 80 22 113/60 (77) 98 NIV Bilevel 15.00 04/19/19 11:29 104.3 80 22 137/78 98 NIV/Bilevel 15.00 04/19/19 11:04 105.0 04/19/19 10:47 111 41 99 60.00 04/19/19 10:39 2.00 04/19/19 10:31 105.0 123 22 196/82 (120) 98 NIV Bilevel 15.00 15.00 04/19/19 10:31 98 NIV Bilevel 15.00 60 04/19/19 10:26 105.0 123 22 196/82 (120) 94 Nasal Cannula Height & Weight Height: 5'9.00" Weight: 265lbs. 0.0oz. 120.031390hc; 40.8 BMI Method:Stated General Appearance: Moderate Distress, Obese HEENT: Normal ENT Inspection Neck: Normal Inspection Respiratory: Decreased Breath Sounds Cardiovascular: Tachycardia Capillary Refill: Less Than 3 Seconds Extremity: Pedal Edema Neurologic/Psychiatric: No Motor/Sensory Deficits Results Lab Laboratory Tests 04/19/19 10:35 Assessment/Plan Assessment/Plan Acute respiratory failure -Currently on BiPAP Pneumonia -Zosyn. vanco -repeat labs -Hawkins culture -MRSA nasal swab Anemia -Monitor Acute sepsis with UTI morbid obesity AMNA WRIGHT DO Apr 19, 2019 15:18
[2019-04-19] MEDS ORDERED: PHARMACY TO DOSE IV SCH (15:30)
[2019-04-19] MEDS ORDERED: RT-ALBUTEROL/IPRATROPIUM 3 ML (DUONEB) VIAL INH SCH (15:30)
[2019-04-19] MEDS ORDERED: PIPERACILLIN/TAZOBACTAM (BULK) 4.5 GM in NS (IVPB) 100 ML IV SCH (15:30)
[2019-04-19] MEDS ORDERED: IBUPROFEN TABLET 200 MG TAB PO PRN (15:30)
[2019-04-19 15:58] LABS: BASOPHILS % (AUTO) 0 % (0-10); EOSINOPHILS % (AUTO) 0 % (0-10); HEMATOCRIT 28 % (35-52); HEMOGLOBIN 8.7 G/DL (11.5-16.0); LYMPHOCYTES # (AUTO) 0.8 X 10^3 (1.0-4.0); LYMPHOCYTES % (AUTO) 4 % (12-44); MEAN CORPUSCULAR HEMOGLOBIN 26 PG (25-34); MEAN CORPUSCULAR HGB CONC 31 G/DL (32-36); MEAN CORPUSCULAR VOLUME 86 FL (80-99); MEAN PLATELET VOLUME 9.2 FL (7.4-10.4); MONOCYTES # (AUTO) 1.3 X 10^3 (0.0-1.0); MONOCYTES % (AUTO) 7 % (0-12); NEUTROPHILS # (AUTO) 17.5 X 10^3 (1.8-7.8); NEUTROPHILS % (AUTO) 89 % (42-75); PLATELET COUNT 234 10^3/uL (130-400); RED CELL DISTRIBUTION WIDTH 15.9 % (10.0-14.5); WHITE BLOOD COUNT 19.7 10^3/uL (4.3-11.0)
[2019-04-19] MEDS ORDERED: RT-ALBUTEROL/IPRATROPIUM 3 ML (DUONEB) VIAL INH PRN (16:00)
[2019-04-19] MEDS ORDERED: VANCOMYCIN 2000 MG/NS 500 ML IVPB IV NR ×2 (16:04)
[2019-04-19 16:09] LABS: CALCIUM 8.6 MG/DL (8.5-10.1); CREATININE SERUM 1.81 MG/DL (0.60-1.30); MAGNESIUM 1.5 MG/DL (1.8-2.4); PHOSPHORUS 3.4 MG/DL (2.3-4.7); POTASSIUM 4.5 MMOL/L (3.6-5.0)
[2019-04-19 16:53] LABS: ABG BASE EXCESS -2.8 MMOL/L (-2.5-2.5); ABG OXYGEN SATURATION 93 % (94-100); ABG PCO2 36 MMHG (35-45); ABG PH 7.39 (7.37-7.43); ABG PO2 70 MMHG (79-93); ABG TCO2 22.2 MMOL/L (21.0-31.0)
[2019-04-19 16:55] LABS: ALLENS TEST POSITIVE; INSPIRED O2 2 L; PATIENT TEMP 100.4; VENTILATOR NO
[2019-04-19] MEDS: LACTATED RINGERS 1,000 ML IV SCH ×2 (16:58→23:45)
--- NOTE | 2019-04-19 17:47 | NUR ---
Transferred to [facility] per cart, STEFANY Flowers at bedside.
--- NOTE | 2019-04-19 17:50 | NUR ---
PATIENT TO FLOOR AT THIS TIME FROM ICU 11 ACCOMPANIED BY PACKAGE REINSPECTOR AND STAFF, DR. PICHARDO ALSO HERE AT THIS TIME FOR WOUND CONSULT. THIS RN WILL CONT TO MONITOR THIS PATIENT THROUGHOUT THE REMAINDER OF THIS SHIFT.
[2019-04-19] MEDS: ENOXAPARIN 40 MG/0.4 ML (LOVENOX) SYR SC SCH (18:10)
[2019-04-19] MEDS: PIPERACILLIN/TAZO 4.5 GM/NS 100 ML IV SCH ×2 (18:12)
[2019-04-19] MEDS: RT-ALBUTEROL/IPRATROPIUM 3 ML (DUONEB) VIAL INH SCH (22:00)
[2019-04-20 01:08] VITALS: BP 103/56
[2019-04-20] MEDS: PIPERACILLIN/TAZO 4.5 GM/NS 100 ML IV SCH ×6 (01:08→16:46)
[2019-04-20] MEDS: RT-ALBUTEROL/IPRATROPIUM 3 ML (DUONEB) VIAL INH SCH ×6 (02:45→21:58)
[2019-04-20 03:12] LABS: BASOPHILS % (AUTO) 0 % (0-10); EOSINOPHILS % (AUTO) 0 % (0-10); HEMATOCRIT 23 % (35-52); HEMOGLOBIN 7.1 G/DL (11.5-16.0); LYMPHOCYTES # (AUTO) 1.5 X 10^3 (1.0-4.0); LYMPHOCYTES % (AUTO) 12 % (12-44); MEAN CORPUSCULAR HEMOGLOBIN 26 PG (25-34); MEAN CORPUSCULAR HGB CONC 31 G/DL (32-36); MEAN CORPUSCULAR VOLUME 86 FL (80-99); MEAN PLATELET VOLUME 8.7 FL (7.4-10.4); MONOCYTES # (AUTO) 0.9 X 10^3 (0.0-1.0); MONOCYTES % (AUTO) 7 % (0-12); NEUTROPHILS % (AUTO) 81 % (42-75); PLATELET COUNT 200 10^3/uL (130-400); RED CELL DISTRIBUTION WIDTH 15.7 % (10.0-14.5); WHITE BLOOD COUNT 12.4 10^3/uL (4.3-11.0)
[2019-04-20 03:31] LABS: ALBUMIN 2.7 GM/DL (3.2-4.5); BILIRUBIN,TOTAL 0.6 MG/DL (0.1-1.0); CALCIUM 8.1 MG/DL (8.5-10.1); CREATININE SERUM 1.94 MG/DL (0.60-1.30); MAGNESIUM 1.5 MG/DL (1.8-2.4); PHOSPHORUS 4.7 MG/DL (2.3-4.7); POTASSIUM 3.8 MMOL/L (3.6-5.0); TOTAL PROTEIN 5.9 GM/DL (6.4-8.2)
[2019-04-20 03:49] LABS: BILIRUBIN,URINE NEGATIVE (NEGATIVE); COLOR,URINE YELLOW; GLUCOSE, URINE (UA) 3+ (NEGATIVE); KETONES,URINE NEGATIVE (NEGATIVE); LEUKOCYTE ESTERASE ,URINE 3+ (NEGATIVE); NITRITE,URINE NEGATIVE (NEGATIVE); PH,URINE 5 (5-9); PROTEIN,URINE 2+ (NEGATIVE); UROBILINOGEN,URINE NORMAL (NORMAL)
[2019-04-20 03:57] LABS: BACTERIA,URINE FEW /HPF; CLARITY,URINE SL CLOUDY; SQUAMOUS EPITHELIAL CELL,UR RARE /HPF; WBC,URINE 25-50 /HPF; YEAST,URINE MODERATE /HPF
[2019-04-20 04:03] VITALS: BP 126/77
[2019-04-20] MEDS: ENOXAPARIN 40 MG/0.4 ML (LOVENOX) SYR SC SCH ×2 (04:49→17:37)
[2019-04-20] MEDS: ACETAMINOPHEN 325 MG TABLET PO PRN ×3 (04:50→20:08)
[2019-04-20] MEDS: LACTATED RINGERS 1,000 ML IV SCH ×3 (04:52→16:52)
--- NOTE | 2019-04-20 06:22 | Diagnostic Imaging Report ---
INDICATION: Shortness of breath. Portable chest 4:35 AM FINDINGS: Heart size and pulmonary vascularity are upper limits of normal. Lungs are clear. There are no effusions or pneumothoraces. IMPRESSION: No acute abnormalities in the chest. Dictated by: Dictated on workstation # [id number]
[2019-04-20 08:24] VITALS: BP 121/70
--- NOTE | 2019-04-20 08:55 | Pulmonary Progress Note ---
Subjective Time Seen by a Provider: 08:54 Subjective/Events-last exam No complications noted. Sepsis Event Evaluation Height, Weight, BMI Height: 5'6.00" Weight: 275lbs. 5.0oz. 124.499352ze; 43.6 BMI Method:Stated Focused Exam Lactate Level 04/19/19 10:35: Lactic Acid Level 1.52 04/19/19 15:48: Lactic Acid Level 1.86 Exam Exam Vital Signs Date Time Temp Pulse Resp B/P (MAP) Pulse Ox O2 Delivery O2 Flow Rate FiO2 04/20/19 08:24 83 121/70 (87) 04/20/19 07:00 80 04/20/19 06:24 97 Nasal Cannula 4.00 04/20/19 04:03 98.0 80 24 126/77 (93) 92 Nasal Cannula 4.00 04/20/19 02:44 92 Nasal Cannula 4.00 04/20/19 01:08 77 103/56 (72) 04/20/19 01:00 77 04/19/19 23:34 97.6 86 26 92/58 (69) 92 Nasal Cannula 4.00 04/19/19 22:00 86 Nasal Cannula 4.00 04/19/19 20:46 99.2 04/19/19 20:16 102.6 04/19/19 20:05 102.6 109 31 143/61 (88) 93 Nasal Cannula 4.00 04/19/19 20:00 Nasal Cannula 2.00 04/19/19 19:11 116 04/19/19 18:52 86 Nasal Cannula 4.00 04/19/19 18:07 102.0 111 30 119/48 (71) 93 Nasal Cannula 2.00 04/19/19 17:00 108 31 168/77 (107) 93 NIV Bilevel 21.00 04/19/19 16:00 95 Nasal Cannula 2.00 60 04/19/19 16:00 104 28 140/86 (104) 97 NIV Bilevel 21.00 04/19/19 15:46 101 04/19/19 15:25 95 Nasal Cannula 2.00 04/19/19 15:14 NIV Bilevel 21 04/19/19 15:00 NIV Bilevel 21.00 04/19/19 15:00 95 123/83 (96) 95 NIV Bilevel 21.00 04/19/19 14:45 96 15 133/63 (86) 93 NIV Bilevel 40.00 04/19/19 14:40 103.6 80 22 113/60 (77) 98 NIV Bilevel 15.00 04/19/19 14:30 94 27 99 40.00 04/19/19 11:29 104.3 80 22 137/78 98 NIV/Bilevel 15.00 04/19/19 11:04 105.0 04/19/19 10:47 111 41 99 60.00 04/19/19 10:39 2.00 04/19/19 10:31 105.0 123 22 196/82 (120) 98 NIV Bilevel 15.00 15.00 04/19/19 10:31 98 NIV Bilevel 15.00 60 04/19/19 10:26 105.0 123 22 196/82 (120) 94 Nasal Cannula I & O 04/20/19 07:00 Intake Total 4560 ml Output Total 1625 ml Balance 2935 ml Height & Weight Height: 5'6.00" Weight: 275lbs. 5.0oz. 124.068455ja; 43.6 BMI Method:Stated General Appearance: No Apparent Distress, Obese HEENT: Normal ENT Inspection Neck: Normal Inspection Respiratory: Decreased Breath Sounds Cardiovascular: Regular Rate, Rhythm, No JVD, No Murmur, Tachycardia Capillary Refill: Less Than 3 Seconds Gastrointestinal: normal bowel sounds, non tender, soft Extremity: Normal Capillary Refill, Pedal Edema Neurologic/Psychiatric: No Motor/Sensory Deficits Skin: Normal Color, Warm/Dry Lymphatic: No Adenopathy Results Lab Laboratory Tests 04/19/19 10:35 04/19/19 15:48 04/20/19 03:05 Assessment/Plan Assessment/Plan Acute respiratory failure -Currently on BiPAP -Decrease IVF to 75cc/hr Pneumonia -Zosyn. vanco -repeat labs -Hawkins culture -MRSA nasal swab Anemia -Monitor Acute sepsis with UTI morbid obesity AMNA WRIGHT DO Apr 20, 2019 08:54
[2019-04-20] MEDS ORDERED: PANTOPRAZOLE 40 MG (PROTONIX) VIAL IV SCH (09:00)
[2019-04-20 09:41] LABS: RETICULOCYTE % 2.13 % (0.50-2.40)
--- NOTE | 2019-04-20 10:32 | Wound Care Assessment ---
Wound Care Assessment Date Seen by Provider: Apr 20, 2019 Time Seen by Provider: 10:15 Chief Complaint Swelling and redness of R calf. HPI The patient is a 68 year old female with a 5 day history of swelling and progressive redness of R calf. No open wound. Multiple co-morbidities. Improved with elevation and IV antibiotics. Will follow. Past Medical History: Admits Diabetes Type II, Admits Heart Disease (COPD, ANKIT,Obesity, Chronic renal failure.) Smoking Status: Never a Smoker Recreational Drug Use: No Alcohol Use: Denies Use Review of Systems General: No Chills Pulmonary: Dyspnea Cardiovascular: No: Chest Pain Exam Vital Signs Date Time Temp Pulse Resp B/P (MAP) Pulse Ox O2 Delivery O2 Flow Rate FiO2 04/20/19 08:24 83 121/70 (87) 04/20/19 06:24 97 Nasal Cannula 4.00 04/20/19 04:03 98.0 24 04/19/19 16:00 60 Capillary Refill : Less Than 3 Seconds General Appearance: mild distress HEENT: normal ENT inspection Respiratory: no respiratory distress Extremities: other (Erythema and edema, improved from yesterday evening(unable to document visit due to consult not being entered appropriately)) Results Laboratory Tests 04/19/19 10:35: White Blood Count 15.9H, Red Blood Count 3.48L, Hemoglobin 9.2L, Hematocrit 29L, Mean Corpuscular Volume 84, Mean Corpuscular Hemoglobin 26, Mean Corpuscular Hemoglobin Concent 32, Red Cell Distribution Width 15.7H, Platelet Count 291, Mean Platelet Volume 9.2, Neutrophils (%) (Auto) 89H, Lymphocytes (%) (Auto) 7L, Monocytes (%) (Auto) 5, Eosinophils (%) (Auto) 0, Basophils (%) (Auto) 0, Neutrophils # (Auto) 14.1H, Lymphocytes # (Auto) 1.0, Monocytes # (Auto) 0.8, Eosinophils # (Auto) 0.0, Basophils # (Auto) 0.0, Neutrophils % (Manual) 82, Lymphocytes % (Manual) 9, Monocytes % (Manual) 2, Eosinophils % (Manual) 0, Basophils % (Manual) 0, Band Neutrophils 7, Polychromasia SLIGHT, Anisocytosis SLIGHT, Prothrombin Time 18.8H, INR Comment 1.5H, Activated Partial Thromboplast Time 37H, Sodium Level 133L, Potassium Level 4.4, Chloride Level 100, Carbon Dioxide Level 22, Anion Gap 11, Blood Urea Nitrogen 18, Creatinine 1.82H, Estimat Glomerular Filtration Rate 28, BUN/Creatinine Ratio 10, Glucose Level 170H, Lactic Acid Level 1.52, Calcium Level 9.6, Corrected Calcium 9.9, Total Bilirubin 0.5, Aspartate Amino Transf (AST/SGOT) 21, Alanine Aminotransferase (ALT/SGPT) 13, Alkaline Phosphatase 131, Total Protein 7.8, Albumin 3.6 04/19/19 11:45: Urine Color YELLOW, Urine Clarity CLEAR, Urine pH 7, Urine Specific [place] 1.010L, Urine Protein 3+H, Urine Glucose (UA) 4+H, Urine Ketones NEGATIVE, Urine Nitrite NEGATIVE, Urine Bilirubin NEGATIVE, Urine Urobilinogen NORMAL, Urine Leukocyte Esterase 3+H, Urine RBC (Auto) 2+H, Urine RBC 0-2, Urine WBC >100H, Urine Crystals NONE, Urine Bacteria TRACE, Urine Casts NONE, Urine Mucus NEGATIVE, Urine Culture Indicated YES 04/19/19 15:48: White Blood Count 19.7H, Red Blood Count 3.31L, Hemoglobin 8.7L, Hematocrit 28L, Mean Corpuscular Volume 86, Mean Corpuscular Hemoglobin 26, Mean Corpuscular Hemoglobin Concent 31L, Red Cell Distribution Width 15.9H, Platelet Count 234, Mean Platelet Volume 9.2, Neutrophils (%) (Auto) 89H, Lymphocytes (%) (Auto) 4L, Monocytes (%) (Auto) 7, Eosinophils (%) (Auto) 0, Basophils (%) (Auto) 0, Neutrophils # (Auto) 17.5H, Lymphocytes # (Auto) 0.8L, Monocytes # (Auto) 1.3H, Eosinophils # (Auto) 0.0, Basophils # (Auto) 0.0, Sodium Level 136, Potassium Level 4.5, Chloride Level 103, Carbon Dioxide Level 23, Anion Gap 10, Blood Urea Nitrogen 18, Creatinine 1.81H, Estimat Glomerular Filtration Rate 28, BUN/Creatinine Ratio 10, Glucose Level 109H, Lactic Acid Level 1.86, Calcium Level 8.6, Phosphorus Level 3.4, Magnesium Level 1.5L 04/19/19 16:43: Blood Gas Puncture Site RIGHT RADIAL, Blood Gas Patient Temperature 100.4, Arterial Blood pH 7.39, Arterial Blood Partial Pressure CO2 36, Arterial Blood Partial Pressure O2 70L, Arterial Blood HCO3 21L, Arterial Blood Total CO2 22.2, Arterial Blood Oxygen Saturation 93L, Arterial Blood Base Excess -2.8L, Jai Test POSITIVE, Blood Gas Ventilator Setting NO, Blood Gas Inspired Oxygen 2 L 04/20/19 01:14: Glucometer 158H 04/20/19 03:05: White Blood Count 12.4H, Red Blood Count 2.71L, Hemoglobin 7.1L, Hematocrit 23L, Mean Corpuscular Volume 86, Mean Corpuscular Hemoglobin 26, Mean Corpuscular Hemoglobin Concent 31L, Red Cell Distribution Width 15.7H, Platelet Count 200, Mean Platelet Volume 8.7, Neutrophils (%) (Auto) 81H, Lymphocytes (%) (Auto) 12, Monocytes (%) (Auto) 7, Eosinophils (%) (Auto) 0, Basophils (%) (Auto) 0, Neutrophils # (Auto) 10.0H, Lymphocytes # (Auto) 1.5, Monocytes # (Auto) 0.9, Eosinophils # (Auto) 0.0, Basophils # (Auto) 0.0, Absolute Reticulocyte Count 58, Percent Reticulocyte Count 2.13, Sodium Level 135, Potassium Level 3.8, Chloride Level 104, Carbon Dioxide Level 19L, Anion Gap 12, Blood Urea Nitrogen 18, Creatinine 1.94H, Estimat Glomerular Filtration Rate 26, BUN/Creatinine Ratio 9, Glucose Level 132H, Calcium Level 8.1L, Corrected Calcium 9.1, Phosphorus Level 4.7, Magnesium Level 1.5L, Total Bilirubin 0.6, Aspartate Amino Transf (AST/SGOT) 19, Alanine Aminotransferase (ALT/SGPT) 14, Alkaline Phosphatase 83, Total Protein 5.9L, Albumin 2.7L 04/20/19 03:45: Urine Color YELLOW, Urine Clarity SL CLOUDY, Urine pH 5, Urine Specific [place] 1.015L, Urine Protein 2+H, Urine Glucose (UA) 3+H, Urine Ketones NEGATIVE, Urine Nitrite NEGATIVE, Urine Bilirubin NEGATIVE, Urine Urobilinogen NORMAL, Urine Leukocyte Esterase 3+H, Urine RBC (Auto) 2+H, Urine RBC NONE, Urine WBC 25-50H, Urine Squamous Epithelial Cells RARE, Urine Crystals NONE, Urine Bacteria FEWH, Urine Casts PRESENT, Urine Granular Casts 2-5H, Urine Mucus SMALLH, Urine Yeast MODERATEH, Urine Culture Indicated YES Assessment/Plan/Dx 1. Cellulitis of R calf. 2. Lymphedema. 3. Functional paraplegia. Plan: The patient is improving with antibiotics. She is encouraged to elevate. Will follow. ESTEPHANIE PICHARDO MD Apr 20, 2019 10:31
[2019-04-20] MEDS ORDERED: PANT40TA3 PO (11:51)
[2019-04-20] MEDS ORDERED: BTH10T PO (11:51)
[2019-04-20] MEDS ORDERED: APIX5TAB PO (11:51)
[2019-04-20] MEDS ORDERED: MICO10PO TOP (11:51)
[2019-04-20] MEDS ORDERED: ASPI-983 PO (11:51)
[2019-04-20] MEDS ORDERED: OMEG-141 PO (11:51)
[2019-04-20] MEDS ORDERED: EMPA10TA PO (11:51)
[2019-04-20 12:00] VITALS: BP 142/75
[2019-04-20] MEDS ORDERED: ALBU2.5V4 NEB (12:02)
[2019-04-20] MEDS ORDERED: MAGN400O7 PO (12:13)
[2019-04-20] MEDS ORDERED: PHEN57OI RC (12:13)
--- NOTE | 2019-04-20 13:18 | History & Physical ---
SAMINA MCCLAIN MED STUDENT 04/20/19 1318: HPI History of Present Illness: The patient is a morbidly obese, 68 y/o woman who presented to the [facility] with a chief complaint of high fever. She is a resident at a residential care facility and she states that she has been having mild intermittent fevers for the past four days. When her fever spiked yesterday morning her caretakers called for EMS. She has been treated with several rounds of oral antibiotics for cellulitis which she reports has not been effective and has not reduced the inflammation and pain in her right leg. The patient reports minimal pain currently but pain at 7/10 with movement of the right lower extremity. The patient has a history of CVA with left sided flaccid paralysis. The right leg is swollen and erythematous with a large red plaque on the lateral upper thigh. The rest of the review of systems was negative and the patient has no other complaints at this time. Source: patient Time Seen by Provider: 08:45 Attending Physician Lary Whitmore MD PCP Roberto Ramírez MD Consult Date of Admission Apr 19, 2019 at 13:38 Home Medications Home Medications Reviewed patient Home Medication Reconciliation performed by pharmacy medication reconciliations gis mapping technician and/or nursing. Patients Allergies have been reviewed. Allergies Coded Allergies: sulfamethoxazole (Verified Allergy, Unknown, 10/13/17) trimethoprim (Verified Allergy, Unknown, 10/13/17) MJD-Sjujcn-Kacerg Hx Patient Social History Alcohol Use: Denies Use Recreational Drug Use: No Smoking Status: Never a Smoker Former smoker/When Quit: Sep 13, 1999 Type Used: Cigarettes 2nd Hand Smoke Exposure: No Recent Foreign Travel: No Contact w/other who traveled: No Recent Hopitalizations: No Recent Infectious Disease Expo: No Immunizations Up To Date Tetanus Booster (TDap): Unknown Past Medical History PMHx: HTN HLD DMII PSurgHx: Right knee replacement Right eye surgery Family Medical History Significant Family History: CVA, Diabetes Family History: Completed stroke 19 FATHER G8 BROTHER Diabetes mellitus G8 BROTHER Hypertension 19 FATHER 19 MOTHER Review of Systems ([facility]C) Constitutional: no symptoms reported EENTM: no symptoms reported Respiratory: no symptoms reported Cardiovascular: no symptoms reported Gastrointestinal: constipation Genitourinary: no symptoms reported Skin: change in color (swelling and redness of right leg), other Physical Exam-([facility]) Physical Exam Vital Signs VS - Last 72 Hours, by Label 04/19/19 04/19/19 04/19/19 04/19/19 10:26 10:31 10:31 10:39 Temp 105.0 105.0 Pulse 123 123 Resp 22 22 B/P (MAP) 196/82 (120) 196/82 (120) Pulse Ox 94 98 98 O2 Delivery Nasal Cannula NIV Bilevel NIV Bilevel O2 Flow Rate 15.00 15.00 2.00 15.00 FiO2 60 04/19/19 04/19/19 04/19/19 04/19/19 10:47 11:04 11:29 14:30 Temp 105.0 104.3 Pulse 111 80 94 Resp 41 22 27 B/P (MAP) 137/78 Pulse Ox 99 98 99 O2 Delivery NIV/Bilevel O2 Flow Rate 60.00 15.00 40.00 04/19/19 04/19/19 04/19/19 04/19/19 14:40 14:45 15:00 15:00 Temp 103.6 Pulse 80 96 95 Resp 22 15 B/P (MAP) 113/60 (77) 133/63 (86) 123/83 (96) Pulse Ox 98 93 95 O2 Delivery NIV Bilevel NIV Bilevel NIV Bilevel NIV Bilevel O2 Flow Rate 15.00 40.00 21.00 21.00 04/19/19 04/19/19 04/19/19 04/19/19 15:14 15:25 15:46 16:00 Pulse 101 104 Resp 28 B/P (MAP) 140/86 (104) Pulse Ox 95 97 O2 Delivery NIV Bilevel Nasal Cannula NIV Bilevel O2 Flow Rate 2.00 21.00 FiO2 21 04/19/19 04/19/19 04/19/19 04/19/19 16:00 17:00 18:07 18:52 Temp 102.0 Pulse 108 111 Resp 31 30 B/P (MAP) 168/77 (107) 119/48 (71) Pulse Ox 95 93 93 86 O2 Delivery Nasal Cannula NIV Bilevel Nasal Cannula Nasal Cannula O2 Flow Rate 2.00 21.00 2.00 4.00 FiO2 60 04/19/19 04/19/19 04/19/19 04/19/19 19:11 20:00 20:05 20:16 Temp 102.6 102.6 Pulse 116 109 Resp 31 B/P (MAP) 143/61 (88) Pulse Ox 93 O2 Delivery Nasal Cannula Nasal Cannula O2 Flow Rate 2.00 4.00 04/19/19 04/19/19 04/19/19 04/20/19 20:46 22:00 23:34 01:00 Temp 99.2 97.6 Pulse 86 77 Resp 26 B/P (MAP) 92/58 (69) Pulse Ox 86 92 O2 Delivery Nasal Cannula Nasal Cannula O2 Flow Rate 4.00 4.00 04/20/19 04/20/19 04/20/19 04/20/19 01:08 02:44 04:03 06:24 Temp 98.0 Pulse 77 80 Resp 24 B/P (MAP) 103/56 (72) 126/77 (93) Pulse Ox 92 92 97 O2 Delivery Nasal Cannula Nasal Cannula Nasal Cannula O2 Flow Rate 4.00 4.00 4.00 04/20/19 04/20/19 04/20/19 04/20/19 07:00 08:00 08:24 10:31 Pulse 80 83 B/P (MAP) 121/70 (87) Pulse Ox 90 O2 Delivery Nasal Cannula Nasal Cannula O2 Flow Rate 2.00 2.00 Capillary Refill : Less Than 3 Seconds General Appearance: WD/WN, no apparent distress, obese HEENT: PERRL/EOMI Respiratory: chest non-tender, lungs clear, normal breath sounds, no respiratory distress Cardiovascular: regular rate, rhythm, no murmur Gastrointestinal: normal bowel sounds, non tender, soft Extremities: inflammation, pedal edema, swelling Neurologic/Psychiatric: alert, normal mood/affect, oriented x 3 Skin: warm/dry Assessment/Plan Assessment/Plan Admission Status: Inpatient Order (span 2 midnights) Reason for Inpatient Admission: Cellulitis Assessment & Plan 1) Sepsis -empiric IV antibiotics -blood culture 2) Cellulitis -empiric IV antibiotics -wound care consultation 3) UTI -empiric IV antibiotics -urine culture 4) Diabetes Melitis -IV insulin 5) Morbid obesity - Clinical Quality Measures DVT/VTE Risk/Contraindication: Risk Factor Score Per Nursin RFS Level Per Nursing on Admit: 4+=Very High Copy Copies To 1: Judy ABRAMS APRN GAULT, HOLLY R MD 8/8/19 1925: HPI History of Present Illness: Agree with Above HPI by Antonio Mcclain, MS4, In addition Right redness and pain that started about 2 weeks ago that has been getting worse. Started on the thigh and now had redness and pain down into her leg and foot. Denies any fever or chills until yesterday. Source: patient Exam Limitations: no limitations Date seen by provider: Apr 20, 2019 Home Medications Allergies Coded Allergies: sulfamethoxazole (Verified Allergy, Unknown, 10/13/17) trimethoprim (Verified Allergy, Unknown, 10/13/17) OSX-Rqwlji-Ytlxzd Hx Patient Social History Living Status: Lives at [place] Past Medical History IDDM Anemia HTN Depression Chronic Atrial Fibrillation 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 Family Medical History Family History: Completed stroke 19 FATHER G8 BROTHER Diabetes mellitus G8 BROTHER Hypertension 19 FATHER 19 MOTHER Review of Systems (CHC) Constitutional: chills, malaise EENTM: no symptoms reported; No mouth pain, No nose pain Respiratory: no symptoms reported; No cough, No dyspnea on exertion, No short of breath Cardiovascular: no symptoms reported; No chest pain, No palpitations Gastrointestinal: constipation Genitourinary: frequency, hematuria : No Musculoskeletal: back pain Skin: change in color (swelling and redness of right leg), other Psychiatric/Neurological: Paresthesia, Weakness Reviewed Test Results Reviewed Test Results Lab Laboratory Tests Test 04/20/19 01:14 04/20/19 03:05 04/20/19 03:45 04/20/19 13:04 Range/Units Glucometer 158 H 70-110 MG/DL White Blood Count 12.4 H 4.3-11.0 10^3/uL Red Blood Count 2.71 L 4.35-5.85 10^6/uL Hemoglobin 7.1 L 11.5-16.0 G/DL Hematocrit 23 L 35-52 % Mean Corpuscular Volume 86 80-99 FL Mean Corpuscular Hemoglobin 26 25-34 PG Mean Corpuscular Hemoglobin Concent 31 L 32-36 G/DL Red Cell Distribution Width 15.7 H 10.0-14.5 % Platelet Count 200 130-400 10^3/uL Mean Platelet Volume 8.7 7.4-10.4 FL Neutrophils (%) (Auto) 81 H 42-75 % Lymphocytes (%) (Auto) 12 12-44 % Monocytes (%) (Auto) 7 0-12 % Eosinophils (%) (Auto) 0 0-10 % Basophils (%) (Auto) 0 0-10 % Neutrophils # (Auto) 10.0 H 1.8-7.8 X 10^3 Lymphocytes # (Auto) 1.5 1.0-4.0 X 10^3 Monocytes # (Auto) 0.9 0.0-1.0 X 10^3 Eosinophils # (Auto) 0.0 0.0-0.3 10^3/uL Basophils # (Auto) 0.0 0.0-0.1 10^3/uL Absolute Reticulocyte Count 58 24-90 10e9/L Percent Reticulocyte Count 2.13 0.50-2.40 % Sodium Level 135 135-145 MMOL/L Potassium Level 3.8 3.6-5.0 MMOL/L Chloride Level 104 98-107 MMOL/L Carbon Dioxide Level 19 L 21-32 MMOL/L Anion Gap 12 5-14 MMOL/L Blood Urea Nitrogen 18 7-18 MG/DL Creatinine 1.94 H 0.60-1.30 MG/DL Estimat Glomerular Filtration Rate 26 BUN/Creatinine Ratio 9 Glucose Level 132 H 70-105 MG/DL Calcium Level 8.1 L 8.5-10.1 MG/DL Corrected Calcium 9.1 8.5-10.1 MG/DL Phosphorus Level 4.7 2.3-4.7 MG/DL Magnesium Level 1.5 L 1.8-2.4 MG/DL Total Bilirubin 0.6 0.1-1.0 MG/DL Aspartate Amino Transf (AST/SGOT) 19 5-34 U/L Alanine Aminotransferase (ALT/SGPT) 14 0-55 U/L Alkaline Phosphatase 83 40-136 U/L Total Protein 5.9 L 6.4-8.2 GM/DL Albumin 2.7 L 3.2-4.5 GM/DL Urine Color YELLOW Urine Clarity SL CLOUDY Urine pH 5 5-9 Urine Specific [place] 1.015 L 1.016-1.022 Urine Protein 2+ H NEGATIVE Urine Glucose (UA) 3+ H NEGATIVE Urine Ketones NEGATIVE NEGATIVE Urine Nitrite NEGATIVE NEGATIVE Urine Bilirubin NEGATIVE NEGATIVE Urine Urobilinogen NORMAL NORMAL MG/DL Urine Leukocyte Esterase 3+ H NEGATIVE Urine RBC (Auto) 2+ H NEGATIVE Urine RBC NONE /HPF Urine WBC 25-50 H /HPF Urine Squamous Epithelial Cells RARE /HPF Urine Crystals NONE /LPF Urine Bacteria FEW H /HPF Urine Casts PRESENT /LPF Urine Granular Casts 2-5 H /LPF Urine Mucus SMALL H /LPF Urine Yeast MODERATE H /HPF Urine Culture Indicated YES Iron Level <10 L 35-180 ug/dL Total Iron Binding Capacity See Est TIBC H 280-380 ug/dL Total Iron Binding Capacity (Send O 215 L 280-380 ug/dL Unsaturated Iron Binding Capacity 205 55-450 ug/dL Transferrin Saturation 5 L 15-50 % Transferrin % Saturation See Est %Sat H 15-50 % Physical Exam-([facility]) Physical Exam General Appearance: WD/WN, no apparent distress, obese, other (Bed Bound) HEENT: PERRL/EOMI Neck: non-tender, full range of motion, supple Respiratory: chest non-tender, lungs clear, normal breath sounds, no respiratory distress Cardiovascular: normal peripheral pulses, regular rate, rhythm, no murmur Gastrointestinal: normal bowel sounds, non tender, soft Back: no CVA tenderness, no vertebral tenderness Extremities: inflammation, pedal edema, swelling Neurologic/Psychiatric: filler shredder machine II-XII nml as tested, alert, normal mood/affect, oriented x 3 Skin: rash (Upper Thigh with clear vesicles and erythema) Lymphatic: no adenopathy Assessment/Plan Assessment/Plan Admission Status: Inpatient Order (span 2 midnights) Reason for Inpatient Admission: Requiring IV antibiotics (1) Sepsis Status: Acute Assessment & Plan: - IVF hydration completed, VS stable, Antibiotics started to cover cellulitis and UTI, cultures pending Qualifiers: Qualified Codes: A41.9 - Sepsis, unspecified organism (2) Cellulitis of leg without foot, right Status: Acute Assessment & Plan: - Vesicular rash DDX includes shingles vs lymphedema, covering with antibiotics at this time, elevation (3) Urinary tract infection Status: Acute Assessment & Plan: - Rocephin D1 Qualifiers: Qualified Codes: N30.01 - Acute cystitis with hematuria (4) Insulin dependent diabetes mellitus with complications Status: Chronic Assessment & Plan: - Decrease levemir due to decreased appetite, A1c pending (5) Normocytic anemia Status: Chronic Assessment & Plan: - Iron studies pending, will start venofer (6) Depression Status: Chronic Assessment & Plan: - Continue home meds Qualifiers: Qualified Codes: F32.9 - Major depressive disorder, single episode, unspecified (7) ANKIT (obstructive sleep apnea) Status: Chronic Assessment & Plan: - Noncompliant with CPAP, states that she can not sleep, continue oxygen at night (8) History of CVA (cerebrovascular accident) (9) Bedbound Status: Chronic (10) BMI 40.0-44.9, adult Status: Chronic (11) DVT prophylaxis Status: Acute Assessment & Plan: - Will continue SAMINA Erazo STUDENT Apr 20, 2019 13:18 LARY WHITMORE MD Apr 20, 2019 19:25
[2019-04-20] MEDS ORDERED: ATOR40TA70 PO (13:33)
--- NOTE | 2019-04-20 13:44 | NUR ---
UPDATED MED REC WITH MAR FROM [facility]
--- NOTE | 2019-04-20 14:07 | NUR ---
CM/SS. Patient has established placement with [facility] and will return there when medically stable. Veterinary X Ray Operator confirmed she has not been under Medicare skilled status there for an extended period of time. Return skilled status if appropriate to care plan.
--- NOTE | 2019-04-20 14:15 | NUR ---
Pastoral care visit.
--- NOTE | 2019-04-20 15:40 | NUR ---
this RN notified dr Singh of patient temp of 102 and HR of 120-144. orders received to restart metoprolol, give 500 bolus, and give Motrin PRN
[2019-04-20] MEDS ORDERED: IBUPROFEN 600 MG (MOTRIN) TAB PO PRN (15:45)
[2019-04-20] MEDS ORDERED: NS IV 500 ML 500 ML IV ONE (15:45)
[2019-04-20 16:00] VITALS: BP 162/72
[2019-04-20] MEDS ORDERED: VANCOMYCIN 1500 MG/NS 500 ML IVPB IV SCH ×2 (16:00)
[2019-04-20] MEDS ORDERED: meTOprolol SUCCINATE 100 MG (TOPROL XL) TAB PO ONE (16:15)
[2019-04-20 19:20] VITALS: BP 126/60
[2019-04-20] MEDS: APIXABAN 5 MG (ELIQUIS) TABLET PO SCH (20:09)
[2019-04-20] MEDS: ASPIRIN E.C. 81 MG (ECOTRIN) TAB PO SCH (20:09)
[2019-04-20] MEDS: GABAPENTIN 300 MG (NEURONTIN) CAP PO SCH (20:09)
[2019-04-20] MEDS: IRON SUCROSE 200 MG/10 ML (VENOFER) VIAL IV SCH (20:09)
[2019-04-20] MEDS: RT-ADVAIR HFA 115/21 MCG PER PUFF IH SCH (20:10)
[2019-04-21] VITALS: BP 102/66
[2019-04-21] MEDS: PIPERACILLIN/TAZO 4.5 GM/NS 100 ML IV SCH ×6 (00:19→16:27)
[2019-04-21 03:55] VITALS: BP 100/54
[2019-04-21] MEDS: RT-ALBUTEROL/IPRATROPIUM 3 ML (DUONEB) VIAL INH SCH ×6 (04:44→20:31)
[2019-04-21 05:32] LABS: BASOPHILS % (AUTO) 0 % (0-10); EOSINOPHILS # (AUTO) 0.2 10^3/uL (0.0-0.3); EOSINOPHILS % (AUTO) 1 % (0-10); HEMATOCRIT 25 % (35-52); HEMOGLOBIN 7.6 G/DL (11.5-16.0); LYMPHOCYTES # (AUTO) 0.7 X 10^3 (1.0-4.0); LYMPHOCYTES % (AUTO) 5 % (12-44); MEAN CORPUSCULAR HEMOGLOBIN 26 PG (25-34); MEAN CORPUSCULAR HGB CONC 30 G/DL (32-36); MEAN CORPUSCULAR VOLUME 87 FL (80-99); MEAN PLATELET VOLUME 9.5 FL (7.4-10.4); MONOCYTES # (AUTO) 0.8 X 10^3 (0.0-1.0); MONOCYTES % (AUTO) 6 % (0-12); NEUTROPHILS # (AUTO) 11.4 X 10^3 (1.8-7.8); NEUTROPHILS % (AUTO) 87 % (42-75); PLATELET COUNT 253 10^3/uL (130-400); RED CELL DISTRIBUTION WIDTH 16.3 % (10.0-14.5); WHITE BLOOD COUNT 13.1 10^3/uL (4.3-11.0)
[2019-04-21 05:52] LABS: CALCIUM 8.9 MG/DL (8.5-10.1); CREATININE SERUM 2.01 MG/DL (0.60-1.30); MAGNESIUM 1.7 MG/DL (1.8-2.4); PHOSPHORUS 4.1 MG/DL (2.3-4.7); POTASSIUM 3.9 MMOL/L (3.6-5.0)
--- NOTE | 2019-04-21 06:04 | Pulmonary Progress Note ---
Subjective Time Seen by a Provider: 06:06 Subjective/Events-last exam No complications noted. Sepsis Event Evaluation Height, Weight, BMI Height: 5'6.00" Weight: 279lbs. 6.0oz. 126.608282ml; 43.6 BMI Method:Stated Focused Exam Lactate Level 04/19/19 10:35: Lactic Acid Level 1.52 04/19/19 15:48: Lactic Acid Level 1.86 Exam Exam Vital Signs Date Time Temp Pulse Resp B/P (MAP) Pulse Ox O2 Delivery O2 Flow Rate FiO2 04/21/19 03:55 97.5 79 24 100/54 (69) 94 Nasal Cannula 3.00 04/21/19 01:00 71 04/21/19 00:00 97.2 78 20 102/66 (78) 95 Nasal Cannula 3.00 04/20/19 21:58 92 Nasal Cannula 2.00 04/20/19 20:31 Nasal Cannula 2.00 04/20/19 19:20 98.8 95 16 126/60 (82) 94 Nasal Cannula 4.00 04/20/19 19:00 110 04/20/19 18:30 Nasal Cannula 2.00 04/20/19 18:30 99.2 04/20/19 16:01 100.2 04/20/19 16:00 101.2 139 24 162/72 (102) 90 Nasal Cannula 2.00 04/20/19 16:00 102.2 04/20/19 15:41 102.0 04/20/19 15:19 100.0 04/20/19 13:00 99 04/20/19 12:00 98.4 94 20 142/75 (97) 90 Room Air 4.00 04/20/19 10:31 90 Nasal Cannula 2.00 04/20/19 08:24 83 121/70 (87) 04/20/19 08:00 Nasal Cannula 2.00 04/20/19 07:00 80 04/20/19 06:24 97 Nasal Cannula 4.00 I & O 04/21/19 07:00 Intake Total 3567 ml Output Total 2250 ml Balance 1317 ml Height & Weight Height: 5'6.00" Weight: 279lbs. 6.0oz. 126.109325qj; 43.6 BMI Method:Stated General Appearance: No Apparent Distress, Obese HEENT: Normal ENT Inspection Neck: Normal Inspection Respiratory: Decreased Breath Sounds Cardiovascular: Regular Rate, Rhythm, No JVD, No Murmur, Tachycardia Capillary Refill: Less Than 3 Seconds Gastrointestinal: normal bowel sounds, non tender, soft Extremity: Normal Capillary Refill, Pedal Edema Neurologic/Psychiatric: No Motor/Sensory Deficits Skin: Normal Color, Warm/Dry Lymphatic: No Adenopathy Results Lab Laboratory Tests 04/19/19 10:35 04/19/19 15:48 04/20/19 03:05 04/21/19 04:55 Assessment/Plan Assessment/Plan Acute respiratory failure -Currently on BiPAP - IVF 75cc/hr Pneumonia -Zosyn. D/C vanco -Hawkins culture -MRSA nasal swab - is negative Acute renal failure -Worsening Cr -D/C NSAIDS -Will give a liter bolus over 4hrs Anemia -Monitor Acute sepsis with UTI morbid obesity AMNA WRIGHT DO Apr 21, 2019 06:04
[2019-04-21] MEDS ORDERED: NS IV 1000 ML 1,000 ML IV SCH (06:15)
[2019-04-21] MEDS ORDERED: NS IV 1000 ML 1,000 ML ONE (06:23)
[2019-04-21] MEDS: LACTATED RINGERS 1,000 ML IV SCH (06:28)
[2019-04-21] MEDS: MAGNESIUM 1 GM/100 ML IVPB 100 ML IV SCH ×2 (06:37→08:32)
[2019-04-21] MEDS: RT-ADVAIR HFA 115/21 MCG PER PUFF IH SCH ×2 (06:41→20:31)
[2019-04-21 08:00] VITALS: BP 134/60
--- NOTE | 2019-04-21 08:03 | Diagnostic Imaging Report ---
Indication: Dyspnea. Comparison: 04/20/2019. Findings: Unchanged enlargement of cardiac silhouette. Central vascular redistribution and indistinctness is unchanged. No appreciable pleural effusion or pneumothorax. Impression: Unchanged cardiomegaly without features of pulmonary edema. Dictated by: Dictated on workstation # [id number]
--- NOTE | 2019-04-21 08:23 | Wound Care Assessment ---
Wound Care Assessment Date Seen by Provider: Apr 21, 2019 Time Seen by Provider: 08:15 Chief Complaint Swelling and redness of R calf. HPI The patient is a 68 year old female with a 5 day history of swelling and progressive redness of R calf. No open wound. Multiple co-morbidities. Improved with elevation and IV antibiotics. Will follow. 04/21/19 Interval Note: The patient has no complaint referable to R leg. The leg shows more edema, but reduced erythema. The patient was in bed with her legs dependent. She is counselled that to the degree that she is able to elevate, her legs will improve. No open wounds. Arterial studies ordered. Past Medical History: Admits Diabetes Type II, Admits Heart Disease Smoking Status: Never a Smoker Recreational Drug Use: No Alcohol Use: Denies Use Exam Vital Signs Date Time Temp Pulse Resp B/P (MAP) Pulse Ox O2 Delivery O2 Flow Rate FiO2 04/21/19 07:00 77 04/21/19 06:43 93 Nasal Cannula 3.00 04/21/19 03:55 97.5 24 100/54 (69) 04/19/19 16:00 60 Capillary Refill : Less Than 3 Seconds General Appearance: no apparent distress HEENT: normal ENT inspection Respiratory: no respiratory distress Extremities: other (Worse R calf edema.) Results Laboratory Tests 04/20/19 13:04: Iron Level <10L, Total Iron Binding Capacity See Est TIBCH, Total Iron Binding Capacity (Send O 215L, Unsaturated Iron Binding Capacity 205, Transferrin Saturation 5L, Transferrin % Saturation See Est %SatH, Ferritin 195.5H 04/21/19 04:55: White Blood Count 13.1H, Red Blood Count 2.90L, Hemoglobin 7.6L, Hematocrit 25L, Mean Corpuscular Volume 87, Mean Corpuscular Hemoglobin 26, Mean Corpuscular Hemoglobin Concent 30L, Red Cell Distribution Width 16.3H, Platelet Count 253, Mean Platelet Volume 9.5, Neutrophils (%) (Auto) 87H, Lymphocytes (%) (Auto) 5L, Monocytes (%) (Auto) 6, Eosinophils (%) (Auto) 1, Basophils (%) (Auto) 0, Neutrophils # (Auto) 11.4H, Lymphocytes # (Auto) 0.7L, Monocytes # (Auto) 0.8, Eosinophils # (Auto) 0.2, Basophils # (Auto) 0.0, Sodium Level 138, Potassium Level 3.9, Chloride Level 105, Carbon Dioxide Level 22, Anion Gap 11, Blood Urea Nitrogen 21H, Creatinine 2.01H, Estimat Glomerular Filtration Rate 25, BUN/Creatinine Ratio 10, Glucose Level 101, Calcium Level 8.9, Phosphorus Level 4.1, Magnesium Level 1.7L Microbiology 04/19/19 Blood Culture - Preliminary, Resulted Positive; See Report 04/19/19 MRSA Screen - Final, Complete MRSA not isolated 04/19/19 Urine Culture - Final, Complete NO GROWTH Microbiology 04/19/19 Blood Culture - Preliminary, Resulted Positive; See Report 04/19/19 Blood Culture - Preliminary, Resulted No growth 04/19/19 MRSA Screen - Final, Complete MRSA not isolated 04/19/19 Urine Culture - Final, Complete NO GROWTH Assessment/Plan/Dx 1. Cellulitis of R calf, improved. 2. Lymphedema. 3. Functional paraplegia. Plan: The patient has improved with antibiotics. Elevation will be an ongoing problem, both due to respiratory status and compliance. Will check arterial status. ESTEPHANIE PICHARDO MD Apr 21, 2019 08:23
[2019-04-21] MEDS: GABAPENTIN 300 MG (NEURONTIN) CAP PO SCH ×2 (08:32→20:23)
[2019-04-21] MEDS: meTOprolol SUCCINATE 100 MG (TOPROL XL) TAB PO SCH (08:32)
[2019-04-21] MEDS: APIXABAN 5 MG (ELIQUIS) TABLET PO SCH ×2 (08:32→20:23)
[2019-04-21] MEDS: ASPIRIN E.C. 81 MG (ECOTRIN) TAB PO SCH ×2 (08:33→20:23)
[2019-04-21] MEDS ORDERED: amLODIPine 5 MG (NORVASC) TAB PO SCH (09:00)
--- NOTE | 2019-04-21 11:36 | Progress Note ---
Subjective Subjective/Events-last exam States that her right leg is still painful. Tolerating PO diet. Bed bound patient Review of Systems Pulmonary: No Dyspnea, No Cough Cardiovascular: No: Chest Pain, Palpitations Gastrointestinal: No: Nausea, Vomiting, Abdominal Pain Neurological: Weakness LE pain Focused Exam Lactate Level 04/19/19 10:35: Lactic Acid Level 1.52 04/19/19 15:48: Lactic Acid Level 1.86 Objective Exam Last Set of Vital Signs Vital Signs Date Time Temp Pulse Resp B/P (MAP) Pulse Ox O2 Delivery O2 Flow Rate FiO2 04/21/19 10:45 90 Nasal Cannula 3.00 04/21/19 08:00 97.5 89 32 134/60 (84) 04/19/19 16:00 60 Capillary Refill : Less Than 3 Seconds I&O Intake and Output 04/21/19 00:00 Intake Total 4517 ml Output Total 2550 ml Balance 1967 ml Intake Oral 1262 ml IV Total 3255 ml Output Urine Total 2550 ml General: Alert, Oriented X3, Cooperative, No Acute Distress Lungs: Clear to Auscultation, Normal Air Movement Heart: Regular Rate, No Murmurs Abdomen: Normal Bowel Sounds, Soft, No Tenderness, No Masses Extremities: Other (3+ pitting edema R>L) Neuro: Normal Speech Results/Procedures Lab Laboratory Tests 04/20/19 13:04: Iron Level <10L, Total Iron Binding Capacity See Est TIBCH, Total Iron Binding Capacity (Send O 215L, Unsaturated Iron Binding Capacity 205, Transferrin Saturation 5L, Transferrin % Saturation See Est %SatH, Ferritin 195.5H 04/21/19 04:55: White Blood Count 13.1H, Red Blood Count 2.90L, Hemoglobin 7.6L, Hematocrit 25L, Mean Corpuscular Volume 87, Mean Corpuscular Hemoglobin 26, Mean Corpuscular Hemoglobin Concent 30L, Red Cell Distribution Width 16.3H, Platelet Count 253, Mean Platelet Volume 9.5, Neutrophils (%) (Auto) 87H, Lymphocytes (%) (Auto) 5L, Monocytes (%) (Auto) 6, Eosinophils (%) (Auto) 1, Basophils (%) (Auto) 0, Neutrophils # (Auto) 11.4H, Lymphocytes # (Auto) 0.7L, Monocytes # (Auto) 0.8, Eosinophils # (Auto) 0.2, Basophils # (Auto) 0.0, Sodium Level 138, Potassium Level 3.9, Chloride Level 105, Carbon Dioxide Level 22, Anion Gap 11, Blood Urea Nitrogen 21H, Creatinine 2.01H, Estimat Glomerular Filtration Rate 25, BUN/Creatinine Ratio 10, Glucose Level 101, Calcium Level 8.9, Phosphorus Level 4.1, Magnesium Level 1.7L Microbiology 04/19/19 Blood Culture - Preliminary, Resulted Positive; See Report 04/19/19 MRSA Screen - Final, Complete MRSA not isolated 04/20/19 Urine Culture - Final, Complete YEAST Assessment/Plan Assessment/Plan Assessment & Plan 1) Sepsis -empiric IV antibiotics -blood culture 2) Cellulitis -empiric IV antibiotics -wound care consultation 3) UTI -empiric IV antibiotics -urine culture 4) Diabetes Melitis -IV insulin 5) Morbid obesity - (1) Sepsis Status: Acute Assessment & Plan: - IVF hydration completed, VS stable, Antibiotics started to cover cellulitis and UTI, cultures pending 04/21: Urine culture with Yeast, will add diflucan, 1 blood culture +, Continue Rocephin Qualifiers: Qualified Codes: A41.9 - Sepsis, unspecified organism (2) Cellulitis of leg without foot, right Status: Acute Assessment & Plan: - Vesicular rash DDX includes shingles vs lymphedema, covering with antibiotics at this time, elevation (3) Urinary tract infection Status: Acute Assessment & Plan: - Rocephin D1 Qualifiers: Qualified Codes: N30.01 - Acute cystitis with hematuria (4) Insulin dependent diabetes mellitus with complications Status: Chronic Assessment & Plan: - Decrease levemir due to decreased appetite, A1c pending (5) Normocytic anemia Status: Chronic Assessment & Plan: - Iron studies pending, will start venofer 04/21: Iron Deficiency, Continue IV replacement (6) Depression Status: Chronic Assessment & Plan: - Continue home meds Qualifiers: Qualified Codes: F32.9 - Major depressive disorder, single episode, unspecified (7) ANKIT (obstructive sleep apnea) Status: Chronic Assessment & Plan: - Noncompliant with CPAP, states that she can not sleep, continue oxygen at night (8) History of CVA (cerebrovascular accident) (9) Bedbound Status: Chronic (10) BMI 40.0-44.9, adult Status: Chronic (11) DVT prophylaxis Status: Acute Assessment & Plan: - Will continue Eliquis Clinical Quality Measures DVT/VTE Risk/Contraindication: Risk Factor Score Per Nursin RFS Level Per Nursing on Admit: 4+=Very High LARY WHITMORE MD Apr 21, 2019 11:36
[2019-04-21 12:00] VITALS: BP 130/58
[2019-04-21] MEDS: fluCOnazole (DIFLUCAN) 100 MG TAB PO SCH (12:26)
[2019-04-21] MEDS: PANTOPRAZOLE 40 MG (PROTONIX) TAB PO SCH (14:09)
[2019-04-21] MEDS ORDERED: TROUGH ORDER-PHARMACY XX NR (15:00)
[2019-04-21 16:00] VITALS: BP 124/63
--- NOTE | 2019-04-21 16:10 | Diagnostic Imaging Report ---
INDICATION: Peripheral arterial disease. FINDINGS: Segmental pressures were performed. Ankle brachial indices are abnormally low bilaterally measuring 0.75 on the right and 0.6 on the left. IMPRESSION: Ankle brachial indices are abnormally low bilaterally. Dictated by: Dictated on workstation # [id number]
[2019-04-21] MEDS: ACETAMINOPHEN 500 MG TAB (TYLENOL) PO PRN (16:26)
--- NOTE | 2019-04-21 17:50 | Diagnostic Imaging Report ---
PROCEDURE: US Bilateral lower extremity arterial. TECHNIQUE: Multiple real-time grayscale images are obtained through both lower extremity arterial systems with color Doppler imaging and color Doppler spectral analysis. INDICATION: Leg pain FINDINGS: In the right leg, the patient has triphasic wave patterns from the groin to the knee. There is monophasic wave pattern in the posterior tibial and biphasic in the dorsalis pedis with velocities within normal limits. There focal narrowing of the origin of the profunda femoris. In the left leg, the patient has triphasic waveforms or biphasic waveforms throughout the entire leg. There is normal velocity transition down the leg. IMPRESSION: Moderate narrowing of the profunda femoris on the right. There is no occlusion or hemodynamically significant stenosis seen in either leg otherwise. Dictated by: Dictated on workstation # [id number]
[2019-04-21] MEDS: ATORVASTATIN 40 MG (LIPITOR) TABLET PO SCH (18:04)
[2019-04-21 20:00] VITALS: BP 114/72
[2019-04-22] VITALS (20 sets, daily range): BP systolic 109–140; BP diastolic 63–106
[2019-04-22] MEDS: PIPERACILLIN/TAZO 4.5 GM/NS 100 ML IV SCH ×6 (01:17→17:13)
[2019-04-22] MEDS: RT-ALBUTEROL/IPRATROPIUM 3 ML (DUONEB) VIAL INH SCH ×6 (02:06→22:50)
[2019-04-22] MEDS: meTOprolol SUCCINATE 100 MG (TOPROL XL) TAB PO SCH (04:59)
--- NOTE | 2019-04-22 05:01 | NUR ---
THIS NURSE WAS CONTACTED BY [facility] THAT PATIENT HEART RATE WAS INCREASING TO 140s-160s WITH MULTIPLE PVCS. VS 141/65-98.8-94 2L/NC. EKG OBTAINED. DR CABRERA NOTIFIED. ORDER RECEIVED TO CONSULT CARDIOLOGY AND GIVE AM DOSE OF METOPROLOL XL 100MG NOW. WILL CONTINUE TO MONITOR.
[2019-04-22 05:50] LABS: BASOPHILS % (AUTO) 0 % (0-10); EOSINOPHILS # (AUTO) 0.1 10^3/uL (0.0-0.3); EOSINOPHILS % (AUTO) 1 % (0-10); HEMATOCRIT 23 % (35-52); HEMOGLOBIN 7.1 G/DL (11.5-16.0); LYMPHOCYTES # (AUTO) 1.1 X 10^3 (1.0-4.0); LYMPHOCYTES % (AUTO) 11 % (12-44); MEAN CORPUSCULAR HEMOGLOBIN 26 PG (25-34); MEAN CORPUSCULAR HGB CONC 30 G/DL (32-36); MEAN CORPUSCULAR VOLUME 86 FL (80-99); MEAN PLATELET VOLUME 9.5 FL (7.4-10.4); MONOCYTES # (AUTO) 0.7 X 10^3 (0.0-1.0); MONOCYTES % (AUTO) 7 % (0-12); NEUTROPHILS # (AUTO) 7.7 X 10^3 (1.8-7.8); NEUTROPHILS % (AUTO) 80 % (42-75); PLATELET COUNT 247 10^3/uL (130-400); WHITE BLOOD COUNT 9.6 10^3/uL (4.3-11.0)
[2019-04-22 06:20] LABS: CALCIUM 8.9 MG/DL (8.5-10.1); CREATININE SERUM 2.19 MG/DL (0.60-1.30); MAGNESIUM 2.1 MG/DL (1.8-2.4); PHOSPHORUS 3.1 MG/DL (2.3-4.7); POTASSIUM 3.9 MMOL/L (3.6-5.0)
--- NOTE | 2019-04-22 06:33 | NUR ---
DR ALCALA CONSULTED. UPDATED ON PATIENT CONDITION AND RELAYED THAT PATIENT HEART RATE HAS BEEN SUSTAINED IN 140s SINCE APPROXIMATELY 0500. ORDER RECEIVED TO SEND TO ICU AND START ON VI DONNELLY.
[2019-04-22] MEDS ORDERED: NS (IVPB) 100 ML ONE (06:45)
[2019-04-22] MEDS ORDERED: DILTIAZEM 125 MG/25 ML IV (CARDIZEM) IV ONE (06:45)
[2019-04-22] MEDS: DILTIAZEM IV FOR DRIP 125 MG in NS (IVPB) 100 ML IV SCH ×3 (07:00→22:52)
[2019-04-22] MEDS: RT-ADVAIR HFA 115/21 MCG PER PUFF IH SCH ×2 (07:03→19:18)
--- NOTE | 2019-04-22 07:50 | Pulmonary Progress Note ---
Subjective Time Seen by a Provider: 07:49 Subjective/Events-last exam Complains of SOB no productive cough. Sepsis Event Evaluation Height, Weight, BMI Height: 5'6.00" Weight: 291lbs. 0.0oz. 131.972414bf; 43.6 BMI Method:Stated Focused Exam Lactate Level 04/19/19 10:35: Lactic Acid Level 1.52 04/19/19 15:48: Lactic Acid Level 1.86 Exam Exam Vital Signs Date Time Temp Pulse Resp B/P (MAP) Pulse Ox O2 Delivery O2 Flow Rate FiO2 04/22/19 07:01 93 Nasal Cannula 3.00 04/22/19 07:00 99.2 146 22 125/101 (109) 92 Nasal Cannula 3.00 04/22/19 07:00 129 04/22/19 07:00 99.2 129 22 125/101 93 Nasal Cannula 3.00 04/22/19 04:37 99.8 96 22 140/64 (89) 92 Nasal Cannula 3.00 04/22/19 02:06 94 Nasal Cannula 3.00 04/22/19 01:00 93 04/22/19 00:00 100.4 90 24 139/63 (88) 90 Nasal Cannula 3.00 04/21/19 20:45 Nasal Cannula 2.00 04/21/19 20:40 94 Nasal Cannula 3.00 04/21/19 20:31 93 Nasal Cannula 3.00 04/21/19 20:00 100.5 90 20 114/72 (86) 94 Nasal Cannula 3.00 04/21/19 19:00 90 04/21/19 16:57 100.8 04/21/19 16:26 101.0 04/21/19 16:00 101.0 96 20 124/63 (83) 95 Nasal Cannula 3.00 04/21/19 13:00 89 04/21/19 12:00 98.5 86 24 130/58 (82) 97 Nasal Cannula 3.00 04/21/19 10:45 90 Nasal Cannula 3.00 04/21/19 08:00 97.5 89 32 134/60 (84) 92 Nasal Cannula 3.00 04/21/19 08:00 Nasal Cannula 3.00 I & O 04/22/19 07:00 Intake Total 3720 ml Output Total 1150 ml Balance 2570 ml Height & Weight Height: 5'6.00" Weight: 291lbs. 0.0oz. 131.039468ch; 43.6 BMI Method:Stated General Appearance: No Apparent Distress, Obese HEENT: Normal ENT Inspection Neck: Normal Inspection Respiratory: Decreased Breath Sounds Cardiovascular: Regular Rate, Rhythm, No JVD, No Murmur, Tachycardia Capillary Refill: Less Than 3 Seconds Gastrointestinal: normal bowel sounds, non tender, soft Extremity: Normal Capillary Refill, Pedal Edema Neurologic/Psychiatric: No Motor/Sensory Deficits Skin: Normal Color, Warm/Dry Lymphatic: No Adenopathy Results Lab Laboratory Tests 04/21/19 04:55 04/22/19 05:10 Assessment/Plan Assessment/Plan Acute respiratory failure -Currently on BiPAP - IVF - increase to 125cc/hr secondary to renal function Anemia -Transfuse 1 unit of PRBC Pneumonia -Zosyn. -Hawkins culture -MRSA nasal swab - is negative Acute renal failure -Worsening Cr -D/C NSAIDS Anemia -Monitor Acute sepsis with UTI -Zosyn and diflucan morbid obesity AMNA WRIGHT DO Apr 22, 2019 07:50
--- NOTE | 2019-04-22 08:13 | Diagnostic Imaging Report ---
Portable chest. Compared to prior study from the previous day. INDICATION: Shortness of breath. FINDINGS: Lung volumes are diminished. There is enlargement of the cardiac silhouette with continued central pulmonary vascular prominence. There is no dense alveolar consolidation. Small effusions are not excluded. There is no pneumothorax. IMPRESSION: 1. Low lung volumes with cardiomegaly and prominent pulmonary vascularity. There are possible small effusions. Overall findings not significantly changed and again suggest ongoing congestive failure and pulmonary edema. Dictated by: Dictated on workstation # [id number]
[2019-04-22] MEDS ORDERED: DILTIAZEM 25 MG/5 ML INJ (CARDIZEM) VIAL ONE (08:17)
[2019-04-22] MEDS ORDERED: DILTIAZEM 25 MG/5 ML INJ (CARDIZEM) VIAL IVP ONE (08:30)
--- NOTE | 2019-04-22 08:30 | Consultation-Cardiology ---
HPI-Cardiology Cardiology Consultation Date of Consultation 04/22/19 Date of Admission Time Seen by Provider: 08:25 Indication: tachycardia HPI 68 years old lady with history of CVA, left hemiparesis. [facility] for fever and sepsis and respiratory failure. Has been treated aggressively. Became tachycardic early this morning, had heart rate between 130 and 150, appear to be regular, atrial waves were not well visualized on her EKG, she has been anemic, having shortness of breath, having cellulitis. Receiving antibiotic. On evaluation patient is short of breath at this time, having mild wheezing. No chest pain. No palpitation. Home Medications & Allergies Allergies: Coded Allergies: sulfamethoxazole (Verified Allergy, Unknown, 10/13/17) trimethoprim (Verified Allergy, Unknown, 10/13/17) Home Medication List Reviewed: Yes UDL-Buqjsz-Uarpop Hx Patient Social History Living Status: [place] Employed/Student: retired Alcohol Use: Denies Use Recreational Drug Use: No Smoking Status: Never a Smoker Former smoker/When Quit: Sep 13, 1999 Type Used: Cigarettes 2nd Hand Smoke Exposure: No Recent Foreign Travel: No Recent Infectious Disease Expo: No Recent Hopitalizations: No Immunizations Up To Date Tetanus Booster (TDap): Unknown Past Medical History discussed below Family Medical History Significant Family History: CVA, Diabetes Family History: Completed stroke 19 FATHER G8 BROTHER Diabetes mellitus G8 BROTHER Hypertension 19 FATHER 19 MOTHER Review of Systems-General Review of Systems Constitutional: chills, fever, malaise, weakness EENTM: no symptoms reported; No mouth pain, No nose pain Respiratory: no symptoms reported; No cough, No dyspnea on exertion; orthopnea, short of breath, wheezing Cardiovascular: no symptoms reported; No chest pain; edema, palpitations Gastrointestinal: see HPI, constipation Genitourinary: frequency, hematuria : No Musculoskeletal: back pain, joint swelling, muscle weakness Skin: change in color (swelling and redness of right leg), other (cellulitis on the right calf) Psychiatric/Neurological: See HPI, Paresthesia, Weakness Reviewed Test Results Reviewed Test Results Lab Laboratory Tests Test 04/21/19 20:32 04/22/19 05:10 Range/Units Glucometer 166 H 70-110 MG/DL White Blood Count 9.6 4.3-11.0 10^3/uL Red Blood Count 2.73 L 4.35-5.85 10^6/uL Hemoglobin 7.1 L 11.5-16.0 G/DL Hematocrit 23 L 35-52 % Mean Corpuscular Volume 86 80-99 FL Mean Corpuscular Hemoglobin 26 25-34 PG Mean Corpuscular Hemoglobin Concent 30 L 32-36 G/DL Red Cell Distribution Width 16.0 H 10.0-14.5 % Platelet Count 247 130-400 10^3/uL Mean Platelet Volume 9.5 7.4-10.4 FL Neutrophils (%) (Auto) 80 H 42-75 % Lymphocytes (%) (Auto) 11 L 12-44 % Monocytes (%) (Auto) 7 0-12 % Eosinophils (%) (Auto) 1 0-10 % Basophils (%) (Auto) 0 0-10 % Neutrophils # (Auto) 7.7 1.8-7.8 X 10^3 Lymphocytes # (Auto) 1.1 1.0-4.0 X 10^3 Monocytes # (Auto) 0.7 0.0-1.0 X 10^3 Eosinophils # (Auto) 0.1 0.0-0.3 10^3/uL Basophils # (Auto) 0.0 0.0-0.1 10^3/uL Sodium Level 136 135-145 MMOL/L Potassium Level 3.9 3.6-5.0 MMOL/L Chloride Level 105 98-107 MMOL/L Carbon Dioxide Level 19 L 21-32 MMOL/L Anion Gap 12 5-14 MMOL/L Blood Urea Nitrogen 21 H 7-18 MG/DL Creatinine 2.19 H 0.60-1.30 MG/DL Estimat Glomerular Filtration Rate 22 BUN/Creatinine Ratio 10 Glucose Level 109 H 70-105 MG/DL Calcium Level 8.9 8.5-10.1 MG/DL Phosphorus Level 3.1 2.3-4.7 MG/DL Magnesium Level 2.1 1.8-2.4 MG/DL Physical Exam Physical Exam Vital Signs Vital Signs - First Documented 04/19/19 04/19/19 10:26 10:31 Temp 105.0 Pulse 123 Resp 22 B/P (MAP) 196/82 (120) Pulse Ox 94 O2 Delivery Nasal Cannula O2 Flow Rate 15.00 FiO2 60 Capillary Refill : Less Than 3 Seconds Height, Weight, BMI Height: 5'6.00" Weight: 291lbs. 0.0oz. 131.075595xh; 43.6 BMI Method:Stated General Appearance: Moderate Distress, Obese Eyes: Bilateral Eye Normal Inspection HEENT: TMs Normal, Normal ENT Inspection Neck: Normal Inspection Respiratory: Decreased Breath Sounds, Rhonci, Wheezing Cardiovascular: No JVD, No Murmur, Irregularly Irregular, Tachycardia Gastrointestinal: Normal Bowel Sounds, Soft Extremity: Normal Capillary Refill, Pedal Edema Neurologic/Psychiatric: Alert, Oriented x3, Abnormal Gait, Other (left hemiplegia) Skin: Other (cellulitis on the right calf with blister) Lymphatic: No Adenopathy A/P-Cardiology Admission Diagnosis Acute atrial fibrillation/flutter Acute respiratory failure Sepsis Hypertension Assessment/Plan New onset atrial fibrillation/flutter, rapid ventricular response, patient was started on Cardizem drip, I will continue to titrate the drip until achieving adequate heart rate and blood pressure control, continue on metoprolol and monitor. Chronic anticoagulation for history of DVT, maintained on Eliquis 5 mg twice daily. Sepsis, probably secondary to cellulitis, there is a blister on the right leg with extensive cellulitis, does not appear to be ischemic in nature, had abnormal TIANNA, arterial ultrasound did not show significant obstructive disease. I will continue monitoring for now. Acute respiratory failure, history of COPD, obesity hypoventilation syndrome. Has been managed by Dr. Patel. I will start on Lasix and monitor Anemia, slow drop in H&H, receiving one unit of packed RBCs today. Continue to monitor H&H. History of Deep venous thrombosis, noted on February 19, 2019 after emergency room visit for chest pain and shortness of breath, continue on Eliquis History of CVA, left-sided paralysis, continue on aspirin with Eliquis. Continue to monitor History of renal failure, chronic kidney disease stage 3-4, seen Dr. Branham in the past.. Continue to monitor Nonobstructive coronary artery disease per cardiac catheterization January 2012, continue to monitor Echocardiogram done on February 19, 2019 showing normal left ventricular size and systolic function, ejection fraction 55-65 percent, left atrial dilatation, PA pressure of 20 mmHg. Continue to monitor Hypertension-controlled. Continue monitor blood pressure/heart rate Hyperlipidemia, continue to monitor lipids Mild bilateral carotid artery stenosis. No recent carotid ultrasound, I will evaluate carotid ultrasound Obesity Depression Clinical Quality Measures DVT/VTE Risk/Contraindication: Risk Factor Score Per Nursin RFS Level Per Nursing on Admit: 4+=Very High FARAZ ALCALA MD Apr 22, 2019 08:30
[2019-04-22] MEDS: IRON SUCROSE 200 MG/10 ML (VENOFER) VIAL IV SCH (08:35)
[2019-04-22] MEDS: fluCOnazole (DIFLUCAN) 100 MG TAB PO SCH (08:36)
[2019-04-22] MEDS: APIXABAN 5 MG (ELIQUIS) TABLET PO SCH ×2 (08:36→20:25)
[2019-04-22] MEDS: ASPIRIN E.C. 81 MG (ECOTRIN) TAB PO SCH ×2 (08:36→20:25)
[2019-04-22] MEDS: GABAPENTIN 300 MG (NEURONTIN) CAP PO SCH ×2 (08:36→20:25)
[2019-04-22] MEDS: FUROSEMIDE 40 MG/4 ML INJ (LASIX) IVP SCH ×2 (08:43→17:13)
[2019-04-22] MEDS: LACTATED RINGERS 1,000 ML IV SCH (08:51)
--- NOTE | 2019-04-22 09:50 | Progress Note - Hospitalist ---
Subjective HPI/CC On Admission Date Seen by Provider: Apr 22, 2019 Time Seen by Provider: 08:45 Subjective/Events-last exam patient was transferred overnight from fourth floor secondary to tachycardia and increased respiratory distress. The patient at the time of my interv is concerned that her breathing is becoming worse. And indeed she has audible wheezing. Her case was discussed with Dr. Plaza and Dr. Galindo. Echocardiogram has been ordered. The patient has significant anemia but is a [employer] and declines blood transfusion. Creatinine is increasing slowly. Review of Systems Pulmonary: Dyspnea Neurological: Weakness Focused Exam Lactate Level 04/19/19 10:35: Lactic Acid Level 1.52 04/19/19 15:48: Lactic Acid Level 1.86 Objective Exam Vital Signs Vital Signs Date Time Temp Pulse Resp B/P (MAP) Pulse Ox O2 Delivery O2 Flow Rate FiO2 04/22/19 09:00 138 19 110/71 (84) 92 Nasal Cannula 3.00 04/22/19 08:20 97.6 04/19/19 16:00 60 Capillary Refill : Less Than 3 Seconds General Appearance: Chronically ill, Obese Neck: Limited Range of Motion Respiratory: Crackles, Decreased Breath Sounds, Wheezing Cardiovascular: Irregularly Irregular, Tachycardia Gastrointestinal: Non Tender, Soft Extremity: Pedal Edema Neurologic/Psychiatric: Alert, Normal Mood/Affect Results/Procedures Lab Laboratory Tests 04/22/19 05:10 Patient resulted labs reviewed. Assessment/Plan Assessment and Plan Assess & Plan/Chief Complaint 1. Congestive heart failure secondary to A. fib with RVR, echocardiogram pending-on Cardizem 2. Acute respiratory insufficiency secondary to number 1 3. Acute on chronic renal failure possibly secondary to intravascular volume depletion versus from diabetes 4. Iron deficient anemia on replacement-will Hemoccult stools as well as the patient is on a a blood thinner 5. History of previous CVA with left sided hemiparesis 6. type II diabetes on insulin 7. Sepsis on Zosyn-resolving Clinical Quality Measures DVT/VTE Risk/Contraindication: Risk Factor Score Per Nursin RFS Level Per Nursing on Admit: 4+=Very High BOBBI CABRERA MD Apr 22, 2019 09:50
[2019-04-22] MEDS: NS IV 1000 ML 1,000 ML IV SCH (12:26)
[2019-04-22] MEDS: PANTOPRAZOLE 40 MG (PROTONIX) TAB PO SCH (14:25)
[2019-04-22] MEDS: ATORVASTATIN 40 MG (LIPITOR) TABLET PO SCH (17:57)
[2019-04-23] VITALS (24 sets, daily range): BP systolic 104–157; BP diastolic 67–95
[2019-04-23] MEDS: PIPERACILLIN/TAZO 4.5 GM/NS 100 ML IV SCH ×6 (00:47→16:43)
[2019-04-23] MEDS: RT-ALBUTEROL/IPRATROPIUM 3 ML (DUONEB) VIAL INH SCH ×5 (02:45→22:59)
[2019-04-23 04:11] LABS: BASOPHILS % (AUTO) 0 % (0-10); EOSINOPHILS # (AUTO) 0.2 10^3/uL (0.0-0.3); EOSINOPHILS % (AUTO) 2 % (0-10); HEMATOCRIT 26 % (35-52); HEMOGLOBIN 7.7 G/DL (11.5-16.0); LYMPHOCYTES # (AUTO) 1.1 X 10^3 (1.0-4.0); LYMPHOCYTES % (AUTO) 10 % (12-44); MEAN CORPUSCULAR HEMOGLOBIN 26 PG (25-34); MEAN CORPUSCULAR HGB CONC 30 G/DL (32-36); MEAN CORPUSCULAR VOLUME 86 FL (80-99); MEAN PLATELET VOLUME 9.6 FL (7.4-10.4); MONOCYTES # (AUTO) 0.9 X 10^3 (0.0-1.0); MONOCYTES % (AUTO) 8 % (0-12); NEUTROPHILS # (AUTO) 8.2 X 10^3 (1.8-7.8); NEUTROPHILS % (AUTO) 79 % (42-75); PLATELET COUNT 285 10^3/uL (130-400); RED CELL DISTRIBUTION WIDTH 16.5 % (10.0-14.5); WHITE BLOOD COUNT 10.4 10^3/uL (4.3-11.0)
[2019-04-23 04:31] LABS: CALCIUM 8.9 MG/DL (8.5-10.1); CREATININE SERUM 2.58 MG/DL (0.60-1.30); PHOSPHORUS 4.3 MG/DL (2.3-4.7)
[2019-04-23] MEDS: POTASSIUM CL 10MEQ/50ML IVPB 50 ML IV SCH (05:37)
[2019-04-23] MEDS: KCL 20 MEQ TAB (K-DUR) PO SCH (05:38)
[2019-04-23] MEDS: MAGNESIUM 1 GM/100 ML IVPB 100 ML IV SCH (05:38)
--- NOTE | 2019-04-23 06:43 | Pulmonary Progress Note ---
Subjective Time Seen by a Provider: 06:48 Subjective/Events-last exam Currently using NC. Denies SOB however does have accessory muscle use. Sepsis Event Evaluation Height, Weight, BMI Height: 5'6.00" Weight: 291lbs. 0.0oz. 131.085261ai; 43.6 BMI Method:Stated Exam Exam Vital Signs Date Time Temp Pulse Resp B/P (MAP) Pulse Ox O2 Delivery O2 Flow Rate FiO2 04/23/19 06:00 101 23 144/78 (100) 96 NIV Bilevel 35.00 04/23/19 05:00 117 20 143/85 (104) 94 NIV Bilevel 35.00 04/23/19 04:00 Nasal Cannula 3.00 04/23/19 04:00 98.0 107 23 119/84 (96) 92 NIV Bilevel 35.00 04/23/19 03:00 114 22 115/70 (85) 94 NIV Bilevel 35.00 04/23/19 02:45 92 Nasal Cannula 3.00 04/23/19 02:00 122 20 124/69 (87) 93 NIV Bilevel 35.00 04/23/19 01:00 99 20 134/85 (101) 92 NIV Bilevel 35.00 04/23/19 01:00 120 04/23/19 00:00 95 23 104/75 (85) 91 NIV Bilevel 35.00 04/23/19 00:00 Nasal Cannula 3.00 04/22/19 23:00 112 22 124/79 (94) 99 NIV Bilevel 35.00 04/22/19 22:52 Nasal Cannula 3.00 04/22/19 22:50 92 Nasal Cannula 3.00 04/22/19 22:00 126 21 120/106 (111) 94 NIV Bilevel 35.00 04/22/19 21:00 117 27 122/74 (90) 91 NIV Bilevel 35.00 04/22/19 20:00 117 24 126/83 (97) 93 NIV Bilevel 35.00 04/22/19 20:00 96.6 04/22/19 20:00 Nasal Cannula 3.00 04/22/19 19:18 93 Nasal Cannula 3.00 04/22/19 19:00 106 24 125/69 (87) 93 NIV Bilevel 35.00 04/22/19 19:00 115 04/22/19 18:00 120 25 120/102 (108) 93 NIV Bilevel 35.00 04/22/19 17:18 96.8 04/22/19 17:00 110 22 127/86 (100) 96 NIV Bilevel 35.00 04/22/19 16:19 NIV Bilevel 35.00 04/22/19 16:17 112 22 95 35.00 04/22/19 16:00 Nasal Cannula 3.00 04/22/19 16:00 122 22 133/90 (104) 89 Nasal Cannula 3.00 04/22/19 15:00 112 21 109/90 (96) 89 Nasal Cannula 3.00 04/22/19 14:25 111/66 04/22/19 14:17 92 Nasal Cannula 3.00 04/22/19 14:00 115 21 115/92 (100) 93 Nasal Cannula 3.00 04/22/19 13:00 101 22 135/74 (94) 92 Nasal Cannula 3.00 04/22/19 12:38 92 04/22/19 12:20 97.4 04/22/19 12:00 116 23 124/77 (93) 92 Nasal Cannula 3.00 04/22/19 12:00 Nasal Cannula 3.00 04/22/19 11:00 128 22 121/81 (94) 92 Nasal Cannula 3.00 04/22/19 10:30 92 Nasal Cannula 3.00 04/22/19 10:00 105 23 112/65 (81) 93 Nasal Cannula 3.00 04/22/19 09:00 138 19 110/71 (84) 92 Nasal Cannula 3.00 04/22/19 08:20 97.6 04/22/19 08:00 Nasal Cannula 3.00 04/22/19 08:00 120 20 126/80 (95) 93 Nasal Cannula 3.00 04/22/19 07:01 93 Nasal Cannula 3.00 04/22/19 07:00 99.2 146 22 125/101 (109) 92 Nasal Cannula 3.00 04/22/19 07:00 129 04/22/19 07:00 99.2 129 22 125/101 93 Nasal Cannula 3.00 I & O 04/23/19 07:00 Intake Total 1845 ml Output Total 3025 ml Balance -1180 ml Height & Weight Height: 5'6.00" Weight: 291lbs. 0.0oz. 131.664002yj; 43.6 BMI Method:Stated General Appearance: Chronically ill, Mild Distress, Obese HEENT: TMs Normal, Normal ENT Inspection Neck: Limited Range of Motion Respiratory: Crackles, Decreased Breath Sounds, Wheezing Cardiovascular: Irregularly Irregular, Tachycardia Capillary Refill: Less Than 3 Seconds Gastrointestinal: normal bowel sounds, non tender, soft Extremity: Pedal Edema Neurologic/Psychiatric: Alert, Normal Mood/Affect Skin: Other (cellulitis on the right calf with blister) Lymphatic: No Adenopathy Results Lab Laboratory Tests 04/22/19 05:10 04/23/19 03:35 Assessment/Plan Assessment/Plan Acute respiratory failure -BiPAP PRN -Oxygen Anemia -Monitor Pneumonia -Zosyn. -Hawkins culture -MRSA nasal swab - is negative Acute renal failure -Worsening Cr -D/C NSAIDS Anemia -Monitor Acute sepsis with UTI -Zosyn and diflucan morbid obesity Critical Care: Critically Ill Patient AMNA WRIGHT DO Apr 23, 2019 06:42
[2019-04-23] MEDS: DILTIAZEM IV FOR DRIP 125 MG in NS (IVPB) 100 ML IV SCH ×2 (07:14→15:35)
[2019-04-23] MEDS: FUROSEMIDE 40 MG/4 ML INJ (LASIX) IVP SCH (07:14)
[2019-04-23] MEDS: RT-ADVAIR HFA 115/21 MCG PER PUFF IH SCH ×2 (07:20→20:09)
[2019-04-23] MEDS: GABAPENTIN 300 MG (NEURONTIN) CAP PO SCH ×2 (08:27→20:30)
[2019-04-23] MEDS: meTOprolol SUCCINATE 100 MG (TOPROL XL) TAB PO SCH (08:28)
[2019-04-23] MEDS: fluCOnazole (DIFLUCAN) 100 MG TAB PO SCH (08:28)
[2019-04-23] MEDS: APIXABAN 5 MG (ELIQUIS) TABLET PO SCH ×2 (08:28→20:30)
[2019-04-23] MEDS: ASPIRIN E.C. 81 MG (ECOTRIN) TAB PO SCH ×2 (08:28→20:30)
--- NOTE | 2019-04-23 09:36 | Progress Note - Hospitalist ---
Subjective HPI/CC On Admission Date Seen by Provider: Apr 23, 2019 Time Seen by Provider: 09:10 Subjective/Events-last exam patient has no complaints other than decreased appetite and her tong Heart rate is currently running 130 to 140s. Chest x-ray has poor penetration but seems to have a little bit more failure- BNP is in the 300s. She's been on Lasix twice a day. she complains of her right leg pain painful but denies having any shortness of breath. Her case is discussed with Dr. Sandy. Review of Systems Musculoskeletal: leg pain Neurological: Weakness Objective Exam Vital Signs Vital Signs Date Time Temp Pulse Resp B/P (MAP) Pulse Ox O2 Delivery O2 Flow Rate FiO2 04/23/19 09:00 118 21 110/67 (81) 94 Nasal Cannula 3.00 04/23/19 08:05 97.7 04/19/19 16:00 60 Capillary Refill : Less Than 3 Seconds General Appearance: Chronically ill HEENT: Normal ENT Inspection Neck: Limited Range of Motion Respiratory: Lungs Clear, Normal Breath Sounds, No Respiratory Distress Cardiovascular: Irregularly Irregular, Tachycardia Gastrointestinal: Normal Bowel Sounds, Non Tender, Soft, Distended Extremity: Calf Tenderness, Inflammation, Pedal Edema, Other ( large blister on the medial side of the malleolus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: Alert, Oriented x3, Normal Mood/Affect Skin: Pallor Lymphatic: No Adenopathy Results/Procedures Lab Laboratory Tests 04/23/19 03:35 Patient resulted labs reviewed. Imaging: Reviewed Imaging Films Assessment/Plan Assessment and Plan Assess & Plan/Chief Complaint 1. Congestive heart failure secondary to A. fib with RVR, echocardiogram pending-on Cardizem drip with poor rate control- discussed with Dr. Galindo 2. Acute respiratory insufficiency secondary to number 1 3. Acute on chronic renal failure possibly secondary to intravascular volume depletion versus from diabetes- worsening creatinine, will try and decrease Lasix 4. Iron deficient anemia on replacement-will Hemoccult stools as well as the patient is on a a blood thinner 5. History of previous CVA with left sided hemiparesis 6. type II diabetes on insulin 7. Sepsis on Zosyn-resolving 8. cellulitis right lower leg with blister formation will need wound care consult 9. possible oral thrush on Diflucan Critical Care Critically Ill Patient Clinical Quality Measures DVT/VTE Risk/Contraindication: Risk Factor Score Per Nursin RFS Level Per Nursing on Admit: 4+=Very High BOBBI CABRERA MD Apr 23, 2019 09:36
--- NOTE | 2019-04-23 09:43 | Cardiology Progress Note ---
Subjective Date Seen by Provider: Apr 23, 2019 Time Seen by Provider: 09:41 Subjective/Events-last exam patient is laying down in bed, having more shortness of breath, more tachycardic today. Review of Systems General: No Chills, No Night Sweats; Fatigue, Malaise; No Appetite, No Other HEENT: No Head Aches, No Visual Changes, No Eye Pain, No Ear Pain, No Dysphasia, No Sinus Congestion, No Post Nasal Drip, No Sore Throat, No Other Pulmonary: Dyspnea; No Cough, No Pleuritic Chest Pain, No Other Cardiovascular: Palpitations, Edema; No: Chest Pain, Orthopnea, Paroxysmal Noc. Dyspnea, Lt Headedness, Other Objective-Cardiology Exam Last Set of Vital Signs Vital Signs 04/19/19 04/23/19 04/23/19 16:00 08:05 09:00 Temp 97.7 Pulse 118 Resp 21 B/P (MAP) 110/67 (81) Pulse Ox 94 O2 Delivery Nasal Cannula O2 Flow Rate 3.00 FiO2 60 Capillary Refill : Less Than 3 Seconds I&O Intake and Output 04/23/19 00:00 Intake Total 2705 ml Output Total 3025 ml Balance -320 ml Intake Oral 1640 ml IV Total 1065 ml Output Urine Total 3025 ml # Bowel Movements 2 General: Alert, Oriented X3, Cooperative, Mild Distress HEENT: Atraumatic, PERRLA Neck: Supple Lungs: Clear to Auscultation, Normal Air Movement, Other (bilateral rhonchi) Heart: Normal S1, Normal S2, No Murmurs, Other (atrial fibrillation was rapid ventricular response) Abdomen: Normal Bowel Sounds, Soft, No Tenderness, No Masses Extremities: Other (3+ pitting edema R>L) Skin: Other (cellulitis on the right leg with blister) Neuro: Normal Speech, Sensation Intact Results Lab Laboratory Tests 04/23/19 03:35 A/P-Cardiology Admission Diagnosis Acute atrial fibrillation/flutter Acute respiratory failure Sepsis Hypertension Assessment/Plan New onset atrial fibrillation/flutter, rapid ventricular response, still tachycardic on 20 mg/h Cardizem drip, I will add digoxin, maintained on oral anticoagulation, planning to do LIZETH with electrical cardioversion in the morning, keep nothing by mouth after midnight Chronic anticoagulation for history of DVT, maintained on Eliquis 5 mg twice daily. Sepsis, probably secondary to cellulitis, there is a blister on the right leg with extensive cellulitis, does not appear to be ischemic in nature, had abnormal TIANNA, arterial ultrasound did not show significant obstructive disease. I will continue monitoring for now. Acute respiratory failure, history of COPD, obesity hypoventilation syndrome. Has been managed by Dr. Patel, continue on Lasix and monitor Anemia, slow drop in H&H, was given another unit of packed RBCs, monitor H&H History of Deep venous thrombosis, noted on February 19, 2019 after emergency room visit for chest pain and shortness of breath, continue on Eliquis History of CVA, left-sided paralysis, continue on aspirin with Eliquis. Continue to monitor History of renal failure, chronic kidney disease stage 3-4, seen Dr. Branham in the past.. Continue to monitor Nonobstructive coronary artery disease per cardiac catheterization January 2012, continue to monitor Echocardiogram done on February 19, 2019 showing normal left ventricular size and systolic function, ejection fraction 55-65 percent, left atrial dilatation, PA pressure of 20 mmHg. Continue to monitor Hypertension-controlled. Continue monitor blood pressure/heart rate Hyperlipidemia, continue to monitor lipids Mild bilateral carotid artery stenosis. No recent carotid ultrasound, I will evaluate carotid ultrasound Obesity Depression Clinical Quality Measures DVT/VTE Risk/Contraindication: Risk Factor Score Per Nursin RFS Level Per Nursing on Admit: 4+=Very High FARAZ ALCALA MD Apr 23, 2019 09:43
[2019-04-23] MEDS ORDERED: DIGOXIN 0.25 MG/ML (LANOXIN) 2 ML AMP IV ONE (09:45)
--- NOTE | 2019-04-23 09:56 | Diagnostic Imaging Report ---
EXAMINATION: Portable erect AP chest 344h. INDICATION: Dyspnea This exam is less than optimal as the patient is rotated. Allowing for this technical factor the cardiomegaly that was noted on the prior exam of 04/22/2019 is again evident and not significantly changed. The right heart border is somewhat indistinct and there could be an element mild pneumonia/atelectasis in this area. The lungs are otherwise generally clear. The mediastinum is prominent but no different than on the prior exam. The osseous structures are intact. IMPRESSION: 1. The slightly indistinct appearance to the right heart border does raise the question of mild pneumonia/atelectasis in this area. Clinical followup is recommended. 2. The overall appearance of the chest is otherwise stable. Dictated by: Dictated on workstation # [id number]
[2019-04-23] MEDS: NS IV 1000 ML 1,000 ML IV SCH (11:25)
--- NOTE | 2019-04-23 12:47 | CONSULTATION REPORT ---
DATE OF SERVICE: 04/23/2019 The patient is admitted to ICU Bed 1. PHYSICIAN REQUESTING CONSULTATION: Amy Calderon MD IMPRESSION: 1. A 68-year-old female admitted with right lower extremity cellulitis. 2. Found to have anemia of chronic disease. 3. Acute on chronic renal disease, stage III to IV. 4. Atrial fibrillation with rapid ventricular response noted during current admission. 5. Oral thrush as well as UTI due to yeast. 6. Previous history of CVA and left hemiplegia. 7. Chronic anticoagulation with Eliquis since the last few months and prior to that with Plavix. RECOMMENDATIONS: 1. As the patient is Mandaen and refuses blood products, I would recommend starting her on erythropoietin therapy to maintain hemoglobin at an acceptable level. 2. Agree with current course of parenteral iron therapy as the patient is being started on MARTÍNEZ therapy. 3. Agree with holding diuretics as her renal function is worsening. 4. Consider holding or decreasing anticoagulation if there is evidence of bleeding. 5. We will follow the patient with you. BRIEF HISTORY: The patient is a 68-year-old female, who is a resident of a longterm following a CVA and left hemiplegia in 2011. She was admitted to the hospital with right lower extremity cellulitis and noted to have significant anemia. Iron studies were consistent with anemia of chronic disease and she has chronic kidney disease stage III with acute renal failure during the current hospitalization. The patient also developed atrial fibrillation with rapid ventricular response during this current hospitalization. A hematology consultation was requested for the management of anemia. PAST MEDICAL HISTORY: Significant for diabetes mellitus type 2 diagnosed seven to eight years ago and has been on treatment. She has hypertension for at least the past 10 years. She denied any coronary artery disease or myocardial infraction in the past. She has had chronic kidney disease for the last several years. PRIOR SURGERIES: Include right knee replacement, left knee arthroscopic surgery and right eye surgery in the distant past. SOCIAL HISTORY: The patient is a Mandaen. She is living at a local longterm since 2011 following a CVA with residual left hemiplegia. She is and has four children, three sons and a daughter. Three of her children live in [place]. One son lives in [place], [place]. 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 No history of tobacco, alcohol or other recreational drug use. FAMILY HISTORY: Significant for her father, who had a CVA while in his 70s and at mid 80s. Her brother had diabetes mellitus and suffered from a CVA while in his 70s. Another brother has diabetes mellitus. No malignancies or hematologic problems in the family that the patient knows of. PHYSICAL EXAMINATION: GENERAL: Today, showed an elderly female, morbidly obese, awake and answering questions appropriately in mild respiratory distress. HEENT: Normocephalic, extraocular muscles intact, conjunctivae pale, oral mucosa slightly dry with few whitish lesions suspicious for yeast. NECK: Supple, with no JVD. No cervical, supraclavicular or axillary lymphadenopathy palpable. CHEST: Symmetrical. LUNGS: Had slightly diminished breath sounds bilaterally without wheezes or rales. CARDIOVASCULAR: Irregularly irregular, tachycardic with no murmurs. ABDOMEN: Obese, soft, nontender with no hepatosplenomegaly or other masses palpable. EXTREMITIES: Showed erythema with an ulcer in the lower extremity. NEUROLOGIC: Significant for left hemiplegia. LABORATORY DATA: CBC done today showed white count of 10.4, hemoglobin 7.7, MCV 86, RDW of 16.5, platelet count 285,000 with neutrophil count 8.2, lymphocyte count 1.1 and monocyte count 0.9. Hemoglobin at the time of admission on 04/19/2019 was 9.2 with MCV of 84. Chemistry panel done today showed relatively normal electrolytes except CO2 level of 17. BUN was 22 and creatinine 2.58 with GFR of 18 mL per minute. At the time of admission, the BUN was 18 with creatinine of 1.82 and GFR of 28 mL per minute. Liver function studies were within normal limits. Serum iron studies done on 04/20/2019 showed serum iron low at 10, TIBC low at 215 and serum ferritin above normal at 195.5 with a pattern consistent with anemia of chronic disease. Urinalysis showed 3+ leukocyte esterase, 25 to 50 WBCs per high power field, few bacteria and moderate yeast. Urine culture from 04/19/2019 and 04/20/2019 is growing 60,000 to 70,000 colonies of yeast. Thank you for allowing me to participate in this patient's care. I will follow the patient with you and make appropriate recommendations. Job ID: [id number] DocumentID: [id number] Dictated Date: 04/23/2019 12:23:29 [employer] Date: 04/23/2019 12:46:11 Dictated By: POLO SAVAGE MD MTDD
[2019-04-23] MEDS: PANTOPRAZOLE 40 MG (PROTONIX) TAB PO SCH (14:07)
[2019-04-23] MEDS: DARBEPOETIN 25 MCG/ML (ARANESP) 1 ML HOSPITAL SC SCH (14:08)
--- NOTE | 2019-04-23 15:37 | Wound Care Assessment ---
Wound Care Assessment Date Seen by Provider: Apr 23, 2019 Time Seen by Provider: 15:15 Chief Complaint Swelling and redness of R calf. HPI The patient is a 68 year old female with a 5 day history of swelling and progressive redness of R calf. No open wound. Multiple co-morbidities. Improved with elevation and IV antibiotics. Will follow. 04/21/19 Interval Note: The patient has no complaint referable to R leg. The leg shows more edema, but reduced erythema. The patient was in bed with her legs dependent. She is counselled that to the degree that she is able to elevate, her legs will improve. No open wounds. Arterial studies ordered. 04/23/10 Interval Note: the patient has been transferred to ICU for atrial fibrillation with RVR. She has worsening CHF and edema, with blister formation of the R calf and thigh. Segmental pressures not available, but the patient is not a candidate for compression, even if her arterial perfusion were to be shown to be good. No specific dressing orders. Will not unroof the blisters at this time. Will follow. Past Medical History: Admits Diabetes Type II, Admits Heart Disease Smoking Status: Never a Smoker Recreational Drug Use: No Alcohol Use: Denies Use Review of Systems Pulmonary: Dyspnea Cardiovascular: Palpitations, Edema; No: Chest Pain Musculoskeletal: leg pain Exam Vital Signs Date Time Temp Pulse Resp B/P (MAP) Pulse Ox O2 Delivery O2 Flow Rate FiO2 04/23/19 14:00 84 24 134/77 (96) 94 Nasal Cannula 3.00 04/23/19 12:00 97.5 04/19/19 16:00 60 Capillary Refill : Less Than 3 Seconds General Appearance: mild distress Respiratory: respiratory distress (Mild) Extremities: other (Worsened edema and erythema, R calf. Blisters in R lateral thigh, that were erythematous 72 hours ago.) Results Laboratory Tests 04/23/19 03:35: White Blood Count 10.4, Red Blood Count 2.97L, Hemoglobin 7.7L, Hematocrit 26L, Mean Corpuscular Volume 86, Mean Corpuscular Hemoglobin 26, Mean Corpuscular Hemoglobin Concent 30L, Red Cell Distribution Width 16.5H, Platelet Count 285, Mean Platelet Volume 9.6, Neutrophils (%) (Auto) 79H, Lymphocytes (%) (Auto) 10L , Monocytes (%) (Auto) 8, Eosinophils (%) (Auto) 2, Basophils (%) (Auto) 0, Neutrophils # (Auto) 8.2H, Lymphocytes # (Auto) 1.1, Monocytes # (Auto) 0.9, Eosinophils # (Auto) 0.2, Basophils # (Auto) 0.0, Sodium Level 139, Potassium Level 4.0, Chloride Level 107, Carbon Dioxide Level 17L, Anion Gap 15H, Blood Urea Nitrogen 22H, Creatinine 2.58H, Estimat Glomerular Filtration Rate 18, BUN/Creatinine Ratio 9, Glucose Level 116H, Calcium Level 8.9, Phosphorus Level 4.3, Magnesium Level 2.0 Microbiology 04/19/19 Blood Culture - Final, Complete Staphylococcus epidermidis Bacillus sp not B. anthracis 04/19/19 MRSA Screen - Final, Complete MRSA not isolated 04/20/19 Urine Culture - Final, Complete YEAST Assessment/Plan/Dx 1. Cellulitis of R calf. 2. Lymphedema, worse due to CHF. 3. Functional paraplegia. Plan: The patient has worsening edema and congestive failure. Suspect blisters will open and be at risk of secondary infection. Elevation remains problematical due to respiratory status. Will follow. ESTEPHANIE PICHARDO MD Apr 23, 2019 15:37
[2019-04-23] MEDS ORDERED: DIGOXIN 0.125 MG (LANOXIN) TAB PO ONE (16:00)
[2019-04-23] MEDS: ATORVASTATIN 40 MG (LIPITOR) TABLET PO SCH (17:48)
--- NOTE | 2019-04-23 19:09 | NUR ---
OB STOOL RESULTS CALLED TO DR CABRERA.
[2019-04-23] MEDS: SUCRALFATE 1 GM (CARAFATE) TAB PO SCH (20:30)
[2019-04-23] MEDS ORDERED: inSUlin ASPART (NovoLOG) 1 UNIT/0.01 ML (CHARGE PER UNIT) SQ SCH (21:00)
--- NOTE | 2019-04-23 22:33 | NUR ---
Pt refusing BiPAP, she did wear from 2099 to 2232. Educated pt on the importance of wearing the BiPAP for her respiratory status, Pt tachypneic with abdominal breathing. Pt states, "I understand I need it but I do not want to wear it tonight".
--- NOTE | 2019-04-23 23:15 | NUR ---
RT Coker came and educated patient on importance of wearing BiPAP. Pt agreed to wear BiPAP at this time.
[2019-04-24] VITALS (24 sets, daily range): BP systolic 98–153; BP diastolic 47–85
[2019-04-24] MEDS: PIPERACILLIN/TAZO 4.5 GM/NS 100 ML IV SCH ×6 (01:51→16:15)
[2019-04-24] MEDS ORDERED: NS (IVPB) 100 ML ONE (02:18)
[2019-04-24] MEDS ORDERED: DILTIAZEM 125 MG/25 ML IV (CARDIZEM) IV ONE (02:18)
[2019-04-24] MEDS: RT-ALBUTEROL/IPRATROPIUM 3 ML (DUONEB) VIAL INH SCH ×6 (02:49→22:41)
[2019-04-24] MEDS: DILTIAZEM IV FOR DRIP 125 MG in NS (IVPB) 100 ML IV SCH (03:20)
[2019-04-24 03:27] LABS: ABG BASE EXCESS -1.2 MMOL/L (-2.5-2.5); ABG OXYGEN SATURATION 98 % (94-100); ABG PCO2 42 MMHG (35-45); ABG PH 7.36 (7.37-7.43); ABG PO2 87 MMHG (79-93); ABG TCO2 24.9 MMOL/L (21.0-31.0)
[2019-04-24 03:30] LABS: ALLENS TEST YES-POS; INSPIRED O2 35%; VENTILATOR NO
[2019-04-24 03:31] LABS: PATIENT TEMP 96.9
--- NOTE | 2019-04-24 04:00 | NUR ---
NOTIFIED EICU OF HR SUSTAINING IN 140-150'S. NEW ORDERS RECEIVED AT THIS TIME.
[2019-04-24 04:22] LABS: ABSOLUTE RETIC # 77 10e9/L (24-90); BASOPHILS % (AUTO) 0 % (0-10); EOSINOPHILS # (AUTO) 0.2 10^3/uL (0.0-0.3); EOSINOPHILS % (AUTO) 2 % (0-10); HEMATOCRIT 25 % (35-52); HEMOGLOBIN 7.3 G/DL (11.5-16.0); LYMPHOCYTES # (AUTO) 1.3 X 10^3 (1.0-4.0); LYMPHOCYTES % (AUTO) 13 % (12-44); MEAN CORPUSCULAR HEMOGLOBIN 26 PG (25-34); MEAN CORPUSCULAR HGB CONC 30 G/DL (32-36); MEAN CORPUSCULAR VOLUME 87 FL (80-99); MEAN PLATELET VOLUME 9.6 FL (7.4-10.4); MONOCYTES # (AUTO) 0.8 X 10^3 (0.0-1.0); MONOCYTES % (AUTO) 8 % (0-12); NEUTROPHILS % (AUTO) 78 % (42-75); PLATELET COUNT 283 10^3/uL (130-400); RED CELL DISTRIBUTION WIDTH 16.2 % (10.0-14.5); RETICULOCYTE % 2.73 % (0.50-2.40); WHITE BLOOD COUNT 10.3 10^3/uL (4.3-11.0)
[2019-04-24 04:33] LABS: ALBUMIN 2.7 GM/DL (3.2-4.5); BILIRUBIN,TOTAL 0.2 MG/DL (0.1-1.0); CALCIUM 8.6 MG/DL (8.5-10.1); CREATININE SERUM 2.38 MG/DL (0.60-1.30); MAGNESIUM 1.6 MG/DL (1.8-2.4); PHOSPHORUS 3.5 MG/DL (2.3-4.7); POTASSIUM 3.9 MMOL/L (3.6-5.0); TOTAL PROTEIN 6.3 GM/DL (6.4-8.2)
[2019-04-24] MEDS ORDERED: meTOprolol 5 MG/5 ML (LOPRESSOR) VIAL ONE (04:34)
[2019-04-24] MEDS ORDERED: NS IV 500 ML 500 ML ONE (04:34)
--- NOTE | 2019-04-24 04:45 | NUR ---
PT WANTING BIPAP OFF, EDUCATED PATIENT ON IMPORTANCE OF WEARING BIPAP DUE TO RESPIRATORY STATUS AND AFIB WITH RVR. JEANE RT ALSO AT BEDSIDE AND EDUCATED PATIENT ON IMPORTANCE OF BIPAP.
--- NOTE | 2019-04-24 04:59 | NUR ---
CALLED EICU TO NOTIFY OF AM LAB RESULTS- MAGNESIUM 1.6, CANNOT REPLACE PER PROTOCOL DUE TO ELEVATED CREATININE.
[2019-04-24] MEDS ORDERED: NS IV 500 ML 500 ML IV SCH (05:00)
[2019-04-24] MEDS: KCL 20 MEQ TAB (K-DUR) PO SCH (05:22)
[2019-04-24] MEDS: SUCRALFATE 1 GM (CARAFATE) TAB PO SCH ×4 (05:22→21:38)
[2019-04-24] MEDS: MAGNESIUM 1 GM/100 ML IVPB 100 ML IV SCH ×3 (05:23→08:45)
[2019-04-24] MEDS: POTASSIUM CL 10MEQ/50ML IVPB 50 ML IV SCH (05:23)
[2019-04-24] MEDS ORDERED: meTOprolol 5 MG/5 ML (LOPRESSOR) VIAL IV ONE (06:00)
[2019-04-24] MEDS ORDERED: MIDAZOLAM 5 MG/5 ML (VERSED) VIAL ONE (07:28)
[2019-04-24] MEDS ORDERED: proPOfol 200 MG/20 ML (DIPRIVAN) VIAL IV ONE (07:29)
[2019-04-24] MEDS ORDERED: LIDOCAINE 2% VISCOUS 15 ML UDC ONE (07:30)
--- NOTE | 2019-04-24 07:38 | Pulmonary Progress Note ---
Subjective Time Seen by a Provider: 07:33 Subjective/Events-last exam Currently on BiPAP. Complains of SOB. Sepsis Event Evaluation Height, Weight, BMI Height: 5'6.00" Weight: 280lbs. 3.0oz. 127.579658wt; 43.6 BMI Method:Stated Exam Exam Vital Signs Date Time Temp Pulse Resp B/P (MAP) Pulse Ox O2 Delivery O2 Flow Rate FiO2 04/24/19 07:09 96 Vapotherm 30.00 40 04/24/19 06:00 101 21 114/60 (78) 96 NIV Bilevel 35.00 04/24/19 05:00 141 24 120/47 (71) 98 NIV Bilevel 35.00 04/24/19 04:50 146 24 97 35.00 04/24/19 04:48 98.0 04/24/19 04:00 96.9 04/24/19 04:00 NIV Bilevel 35 04/24/19 04:00 124 22 104/53 (70) 97 NIV Bilevel 35.00 04/24/19 03:20 137/69 04/24/19 03:00 106 21 141/63 (89) 98 NIV Bilevel 35.00 04/24/19 02:49 96 21 98 35.00 04/24/19 02:00 98 20 143/85 (104) 97 NIV Bilevel 35.00 04/24/19 01:00 112 04/24/19 01:00 112 19 143/80 (101) 98 NIV Bilevel 35.00 04/24/19 00:00 97.0 04/24/19 00:00 NIV Bilevel 35 04/24/19 00:00 96 24 130/72 (91) 98 NIV Bilevel 35.00 04/23/19 23:15 NIV Bilevel 35.00 04/23/19 23:00 96 23 152/73 (99) 95 Nasal Cannula 3.00 04/23/19 22:59 90 26 95 35.00 04/23/19 22:32 Nasal Cannula 3.00 04/23/19 22:00 93 21 147/69 (95) 98 Nasal Cannula 3.00 04/23/19 21:00 94 23 149/72 (97) 98 Nasal Cannula 3.00 04/23/19 21:00 NIV Bilevel 35.00 04/23/19 20:30 98.0 04/23/19 20:17 95 Nasal Cannula 3.00 04/23/19 20:09 96 Nasal Cannula 3.00 04/23/19 20:09 92 24 94 35.00 04/23/19 20:00 98.0 93 26 141/77 (98) 95 Nasal Cannula 3.00 04/23/19 20:00 Nasal Cannula 3.00 04/23/19 19:00 100 04/23/19 19:00 103 25 157/95 (115) 95 Nasal Cannula 3.00 04/23/19 18:00 96 26 126/82 (97) 94 Nasal Cannula 3.00 04/23/19 17:00 92 23 147/85 (105) 94 Nasal Cannula 3.00 04/23/19 16:00 96 28 139/84 (102) 93 Nasal Cannula 3.00 04/23/19 16:00 Nasal Cannula 3.00 04/23/19 15:35 154/68 04/23/19 15:00 99 24 149/69 (95) 94 Nasal Cannula 3.00 04/23/19 14:00 84 24 134/77 (96) 94 Nasal Cannula 3.00 04/23/19 13:00 82 23 141/79 (99) 94 Nasal Cannula 3.00 04/23/19 12:40 90 04/23/19 12:00 97.5 102 21 141/83 (102) 95 Nasal Cannula 3.00 04/23/19 12:00 Nasal Cannula 3.00 04/23/19 11:00 102 21 133/68 (89) 95 Nasal Cannula 3.00 04/23/19 10:21 95 Nasal Cannula 3.00 04/23/19 10:00 107 22 116/92 (100) 95 Nasal Cannula 3.00 04/23/19 09:00 118 21 110/67 (81) 94 Nasal Cannula 3.00 04/23/19 08:05 97.7 Nasal Cannula 3.00 04/23/19 08:00 Nasal Cannula 3.00 04/23/19 08:00 130 18 147/78 (101) 95 NIV Bilevel 35.00 I & O 04/24/19 07:00 Intake Total 2180 ml Output Total 2925 ml Balance -745 ml Height & Weight Height: 5'6.00" Weight: 280lbs. 3.0oz. 127.658697pw; 43.6 BMI Method:Stated General Appearance: No Apparent Distress, Obese HEENT: Normal ENT Inspection Neck: Normal Inspection Respiratory: Accessory Muscle Use, Decreased Breath Sounds Cardiovascular: Regular Rate, Rhythm, No JVD, No Murmur, Tachycardia Capillary Refill: Less Than 3 Seconds Gastrointestinal: normal bowel sounds, non tender, soft Extremity: Normal Capillary Refill, Pedal Edema Neurologic/Psychiatric: Alert, No Motor/Sensory Deficits Skin: Normal Color, Warm/Dry Lymphatic: No Adenopathy Results Lab Laboratory Tests 04/23/19 03:35 04/24/19 03:25 Assessment/Plan Assessment/Plan Acute respiratory failure -BiPAP QHS and PRN -Will trial on Vapotherm during the day -Oxygen -SVNs Afib/flutter -Cardiology following -Plan is for LIZETH and cardioversion today Anemia -Monitor Pneumonia -Zosyn. -Hawkins culture -MRSA nasal swab - is negative Cellulitis with sepsis -Wound care is following Acute renal failure -Worsening Cr -D/C NSAIDS Anemia -Monitor Acute sepsis with UTI -Zosyn and diflucan morbid obesity Hx of DVT -Chronic anticoagulation HX of CVA with residule left sided paralysis AMNA WRIGHT DO Apr 24, 2019 07:38
--- NOTE | 2019-04-24 08:10 | NUR ---
TIMELINE NOTE: 0810-pt is set up on monitors and dr. calderon notified. 0815-Anesthesia at bedside along with LIZETH tech. 0820-Total of 1mg Versed and 80 mg of Diprivan given during total procedure time by lexy Zavala. 4 of Versed and 120mg of Diprivan wasted by this RN with STEFANY Eden. 0825-LIZETH performed 0830- pt shocked x 1 with [address] Calderon order. Pt converted, EKG obtained. 0835-Vitals stable, pt sleeping. Will continue to monitor 0900-Pt awaking some, able to talk, vitals stable. 0915-pt able to take small sips 0930- pt able to drink normal size drinks, oral meds given 0959-cardizem drip turned off. Pt awake, vitals stable
--- NOTE | 2019-04-24 08:19 | Cardiac Procedure Note-CS/ASA ---
Pre-Procedure Note Pre-Op Procedure Note H&P Reviewed The H&P was reviewed, patient examined and no changes noted. Date H&P Reviewed: Apr 24, 2019 Time H&P Reviewed: 08:18 Conscious Sedation Pre-Proced Time 08:18 ASA Score 3 For ASA 3 and 4: Consider anesthesia and medical clearance. Also, for patients with a history of failed moderate sedation consider anesthesia. Airway Lungs Heart ASA score ASA 1: a normal healthy patient ASA 2: a patient with a mild systemic disease (mid diabetes, controlled hypertension, obesity x ASA 3: a patient with a severe systemic disease that limits activity (angina, COPD, prior Myocardial infarction) ASA 4: a patient with an incapacitating disease that is a constant threat to life (CHF, renal failure) ASA 5: a moribund patient not expected to survive 24 hrs. (ruptured aneurysm) ASA 6: a declared brain- patient whose organs are being harvested. For emergent operations, add the letter E after the classification Mallampati Classification Grade 3 Sedation Plan Analgesia, Amnesia, Plan communicated to team members, Discussed options with patient/fam, Discussed risks with patient/fam The patient is an appropriate candidate to undergo the planned procedure, sedation, and anesthesia. The patient immediately re-assessed prior to indication. FARAZ ALCALA MD Apr 24, 2019 08:19
--- NOTE | 2019-04-24 08:43 | Cardioversion ---
Cardioversion PROCEDURE PHYSICIAN: Faraz Calderon DATE OF PROCEDURE: 04/24/19 DIRECT EXTERNAL ELECTRICAL CARDIOVERSION: Indications: Atrial Fibrillation with rapid ventricular rate Preoperative diagnoses: Atrial Fibrillation with rapid ventricular rate Postoperative diagnosis: Sinus rhythm, Successful Electrical Cardioversion Anesthesia: By Anesthesia services Complications: None Specimen: None Contrast: 0 Flouroscopy: none Procedure Details: The patient was brought the quality lab assoc after informed consent was taken, all the risks and complications were explained including the risk of stroke. Electrical cardioversion was carried out with anesthesia support with propofol. 200 joules of synchronized shock was delivered through external patches which promptly restored sinus rhythm. The patient tolerated the procedure well. Conclusions: Successful LIZETH with electrical cardioversion with no complication Final Diagnosis: Paroxysmal atrial fibrillation Coronary artery disease Acute respiratory failure Hypertension FARAZ CALDERON MD Apr 24, 2019 08:43
--- NOTE | 2019-04-24 08:50 | Cardiology Progress Note ---
Subjective Date Seen by Provider: Apr 24, 2019 Time Seen by Provider: 08:44 Subjective/Events-last exam patient is laying down in bed, awake, converted to sinus rhythm after LIZETH and cardioversion Review of Systems General: No Chills, No Night Sweats, No Fatigue, No Malaise, No Appetite, No Other HEENT: No Head Aches, No Visual Changes, No Eye Pain, No Ear Pain, No D ysphasia, No Sinus Congestion, No Post Nasal Drip, No Sore Throat, No Other Pulmonary: No Dyspnea, No Cough, No Pleuritic Chest Pain, No Other Cardiovascular: No: Chest Pain, Palpitations, Orthopnea, Paroxysmal Noc. Dyspnea, Edema, Lt Headedness, Other Objective-Cardiology Exam Last Set of Vital Signs Vital Signs 04/24/19 04/24/19 04/24/19 04:48 07:09 08:00 Temp 98.0 Pulse 96 Resp 23 B/P (MAP) 124/72 (89) Pulse Ox 95 O2 Delivery Vapotherm O2 Flow Rate 40.00 30.00 FiO2 40 Capillary Refill : Less Than 3 Seconds I&O Intake and Output 04/24/19 00:00 Intake Total 2180 ml Output Total 2900 ml Balance -720 ml Intake Oral 1230 ml IV Total 950 ml Output Urine Total 2900 ml # Bowel Movements 2 General: Alert, Oriented X3, Cooperative, Mild Distress HEENT: Atraumatic, PERRLA Neck: Supple Lungs: Clear to Auscultation, Normal Air Movement, Other (bilateral rhonchi) Heart: Normal S1, Normal S2, No Murmurs, Other (atrial fibrillation was rapid ventricular response) Abdomen: Normal Bowel Sounds, Soft, No Tenderness, No Masses Extremities: Other (3+ pitting edema R>L) Skin: Other (cellulitis on the right leg with blister) Neuro: Normal Speech, Sensation Intact Results Lab Laboratory Tests 04/24/19 03:25 A/P-Cardiology Admission Diagnosis Acute atrial fibrillation/flutter Acute respiratory failure Sepsis Hypertension Assessment/Plan New onset atrial fibrillation/flutter, rapid ventricular response, underwent LIZETH and cardioversion, currently in sinus rhythm, I will change Cardizem to oral and continue on digoxin and monitor Chronic anticoagulation for history of DVT, maintained on Eliquis 5 mg twice daily. Sepsis, probably secondary to cellulitis, there is a blister on the right leg with extensive cellulitis, does not appear to be ischemic in nature, had abnormal TIANNA, arterial ultrasound did not show significant obstructive disease. I will continue monitoring for now. Acute respiratory failure, history of COPD, obesity hypoventilation syndrome. Has been managed by Dr. Patel, continue on Lasix and monitor Anemia, slow drop in H&H, was given another unit of packed RBCs, monitor H&H History of Deep venous thrombosis, noted on February 19, 2019 after emergency room visit for chest pain and shortness of breath, continue on Eliquis History of CVA, left-sided paralysis, continue on aspirin with Eliquis. Continue to monitor History of renal failure, chronic kidney disease stage 3-4, seen Dr. Branham in the past.. Continue to monitor Nonobstructive coronary artery disease per cardiac catheterization January 2012, continue to monitor Echocardiogram done on February 19, 2019 showing normal left ventricular size and systolic function, ejection fraction 55-65 percent, left atrial dilatation, PA pressure of 20 mmHg. Continue to monitor Hypertension-controlled. Continue monitor blood pressure/heart rate Hyperlipidemia, continue to monitor lipids Mild bilateral carotid artery stenosis. No recent carotid ultrasound, I will evaluate carotid ultrasound Obesity Depression Clinical Quality Measures DVT/VTE Risk/Contraindication: Risk Factor Score Per Nursin RFS Level Per Nursing on Admit: 4+=Very High FARAZ ALCALA MD Apr 24, 2019 08:50
--- NOTE | 2019-04-24 08:56 | Diagnostic Imaging Report ---
INDICATION: Dyspnea. Comparison made with prior examination from 04/23/19. FINDINGS: There is cardiomegaly. There is venous congestion. There is patchy right basilar infiltrate. There is no pleural effusion or pneumothorax. The mediastinum is unremarkable. IMPRESSION: Patchy right base infiltrate. Cardiomegaly with central pulmonary venous congestion. Dictated by: Dictated on workstation # [id number]
[2019-04-24] MEDS: meTOprolol SUCCINATE 100 MG (TOPROL XL) TAB PO SCH (09:18)
[2019-04-24] MEDS: IRON SUCROSE 200 MG/10 ML (VENOFER) VIAL IV SCH (09:18)
[2019-04-24] MEDS: APIXABAN 5 MG (ELIQUIS) TABLET PO SCH ×2 (09:18→21:38)
[2019-04-24] MEDS: FUROSEMIDE 40 MG/4 ML INJ (LASIX) IVP SCH ×2 (09:18→16:15)
[2019-04-24] MEDS: DILTIAZEM 180 MG (CARDIZEM CD) CAP PO SCH (09:19)
[2019-04-24] MEDS: DIGOXIN 0.25 MG (LANOXIN) TAB PO SCH (09:19)
[2019-04-24] MEDS: GABAPENTIN 300 MG (NEURONTIN) CAP PO SCH ×2 (09:19→21:38)
[2019-04-24] MEDS: fluCOnazole (DIFLUCAN) 100 MG TAB PO SCH (09:43)
[2019-04-24] MEDS: NS IV 1000 ML 1,000 ML IV SCH (09:45)
--- NOTE | 2019-04-24 10:30 | Anesthesia-Procedure Note ---
Procedures/Interventions Procedure Start/Stop/Diagnosis Date of Procedure: Apr 24, 2019 Start Time: 08:15 Referring Physician: Yumiko Preprocedural Diagnosis: AFIB Brief History Called to ICU to provide sedation for LIZETH/Cardioversion. Monitors on and fu nctional. Pt currently on high flow NC/vapotherm at 30% FiO2. Report recieved from ICU nursing staff. Pt awake, eyes open but somewhat lethargic and unable to answer questions promptly. Dr. Calderon at bedside to perform procedure. RT Jerrica at bedside for respiratory support, if needed. Sedation completed with no event and vital signs remained stable throughout. See nurses notes for values. Pt remains spontaneously breathing with regular respiratory rate. FiO2 increased to 60% prophylactically to avoid desaturation and will be titrated back down as tolerated by RT. Stop Time: 08:30 LIZETH/Cardioversion Anesthesia Type: mac ASA Class: 3 Medications Versed 1 mg given. Propofol titrated to effect to a total of 80mg IV. Monitors and Equipment: BP Cuff - Right, Continuous EKG, End Tidal CO2, IV, Pulse Oximeter NEISHA HARKINS CRNA Apr 24, 2019 10:30
--- NOTE | 2019-04-24 10:55 | Anesthesia-General Post-Op ---
MAC Patient Condition Mental Status/LOC: Same as Preop Cardiovascular: Satisfactory Nausea/Vomiting: Absent Respiratory: Satisfactory Pain: Controlled Complications: Absent Post Op Complications Complications None Follow Up Care/Instructions Patient Instructions None needed. Anesthesiology Discharge Order Discharge Order Patient is doing well, no complaints, stable vital signs, no apparent adverse anesthesia problems. No complications reported per nursing. NEISHA HARKINS CRNA Apr 24, 2019 10:55
[2019-04-24] MEDS: RT-ADVAIR HFA 115/21 MCG PER PUFF IH SCH ×2 (10:56→18:28)
--- NOTE | 2019-04-24 11:20 | Progress Note - Hospitalist ---
NOEMY TARIQ, 04/24/19 1119: Subjective HPI/CC On Admission Date Seen by Provider: Apr 24, 2019 Time Seen by Provider: 07:45 Subjective/Events-last exam Cardioversion at 8am and was asked to come back On rounds with Dr. Rush saw bullous pemphigoid RLE Zosyn 4.5g Q8H IV Fluconazole 100mg PO ABG: pH 7.36 BUN/Cr 22/2.38 Mg 1.6 ALK 147 CXR: maybe pneumonia or atelectasis from scan 04/23 Objective Exam Vital Signs Vital Signs Date Time Temp Pulse Resp B/P (MAP) Pulse Ox O2 Delivery O2 Flow Rate FiO2 04/24/19 10:58 95 Vapotherm 30.00 40 04/24/19 10:00 82 25 127/51 (76) 04/24/19 04:48 98.0 Capillary Refill : Less Than 3 Seconds Results/Procedures Lab Laboratory Tests 04/24/19 03:25 Patient resulted labs reviewed. Imaging: Reviewed Imaging Films Assessment/Plan Assessment and Plan Assess & Plan/Chief Complaint Assessment: 1. Congestive heart failure secondary to A. fib with RVR 2. Acute respiratory insufficiency secondary to number 1 3. Acute on chronic renal failure possibly secondary to intravascular volume depletion versus from diabetes 4. Iron deficient anemia on replacement 5. History of previous CVA with left sided hemiparesis 6. Type II diabetes on insulin 7. Sepsis on Zosyn-resolving 8. Cellulitis right lower leg with blister formation will need wound care consult 9. Possible oral thrush on Diflucan 10. Bullous pemphigoid RLE Plan 1. Cardioversion and continuing care with Dr. Calderon 2. Continue antibiotic 3. Wound care if needed Diagnosis/Problems Diagnosis/Problems (1) UTI (urinary tract infection) Status: Acute Qualifiers: Qualified Codes: N30.00 - Acute cystitis without hematuria (2) Acute sepsis Status: Acute (3) History of CVA (cerebrovascular accident) Status: Chronic (4) Cellulitis of leg without foot, right Status: Acute (5) Urinary tract infection Status: Acute Qualifiers: Qualified Codes: N30.01 - Acute cystitis with hematuria (6) Depression Status: Chronic Qualifiers: Qualified Codes: F32.9 - Major depressive disorder, single episode, unspecified (7) Normocytic anemia Status: Chronic (8) Sepsis Status: Acute Qualifiers: Qualified Codes: A41.9 - Sepsis, unspecified organism (9) ANKIT (obstructive sleep apnea) Status: Chronic (10) BMI 40.0-44.9, adult Status: Chronic (11) DVT prophylaxis Status: Acute (12) Insulin dependent diabetes mellitus with complications Status: Chronic (13) Respiratory failure Status: Acute Qualifiers: Qualified Codes: J96.00 - Acute respiratory failure, unspecified whether with hypoxia or hypercapnia (14) REFLUX (15) Encounter for screening colonoscopy (16) At risk for deep venous thrombosis Status: Acute (17) Bedbound Status: Chronic Clinical Quality Measures DVT/VTE Risk/Contraindication: Risk Factor Score Per Nursin RFS Level Per Nursing on Admit: 4+=Very High FADUMO RUSH DO 04/24/192044: Subjective Subjective/Events-last exam Pt remains a full code She is a halfway pt Noncompliant with BiPAP Bullous pemphigoid of her right leg which is acute on chronic and Dr. Hidalgo will be consulted May transfer to 4th floor She is a [employer] her Hgb remains low at 7.4 but declines blood products Zosyn and Diflucan maintained ABG is okay Chest x-ray shows atelectasis Creatinine remains abnormal at 2.38 Cardio version was successful today Eliquis maintained for the last three months Left plural effusion noted Vapotherm at 30 liters but refused BiPAP again this morning Review of Systems General: Fatigue Pulmonary: Dyspnea Neurological: Confusion Objective Exam General Appearance: No Apparent Distress, WD/WN, Chronically ill, Obese Respiratory: Chest Non Tender, Lungs Clear, No Accessory Muscle Use, No Respiratory Distress, Decreased Breath Sounds Cardiovascular: Regular Rate, Rhythm, No Edema, No Gallop, No JVD, No Murmur, Normal Peripheral Pulses Neurologic/Psychiatric: Alert, Disoriented Assessment/Plan Assessment and Plan Assess & Plan/Chief Complaint Monitor closely due to acute on chronic resp failure High risk for further decompensation Diagnosis/Problems Diagnosis/Problems (1) UTI (urinary tract infection) Status: Acute Qualifiers: Qualified Codes: N30.00 - Acute cystitis without hematuria (2) Acute sepsis Status: Acute (3) History of CVA (cerebrovascular accident) Status: Chronic (4) Cellulitis of leg without foot, right Status: Acute (5) Urinary tract infection Status: Acute Qualifiers: Qualified Codes: N30.01 - Acute cystitis with hematuria (6) Depression Status: Chronic Qualifiers: Qualified Codes: F32.9 - Major depressive disorder, single episode, unspecified (7) Normocytic anemia Status: Chronic (8) Sepsis Status: Acute Qualifiers: Qualified Codes: A41.9 - Sepsis, unspecified organism (9) ANKIT (obstructive sleep apnea) Status: Chronic (10) BMI 40.0-44.9, adult Status: Chronic (11) DVT prophylaxis Status: Acute (12) Insulin dependent diabetes mellitus with complications Status: Chronic (13) Respiratory failure Status: Acute Qualifiers: Qualified Codes: J96.00 - Acute respiratory failure, unspecified whether with hypoxia or hypercapnia (14) REFLUX (15) Encounter for screening colonoscopy (16) At risk for deep venous thrombosis Status: Acute (17) Bedbound Status: Chronic Supervisory-Addendum Brief Verification & Attestation Time: Verification & Attestat.: 09:00 Participated in pt care: history, MDM, physical Personally performed: exam, history, MDM, supervision of care Care discussed with: Medical Student Procedures: n/a Results interpretation: Verified all documentation Verification and Attestation of Medical Student E/M Service A medical student performed and documented this service in my presence. I reviewed and verified all information documented by the medical student and made modifications to such information, when appropriate. I personally performed the physical exam and medical decision making. Fadumo Rush, Apr 24, 2019,20:45 NOEMY TARIQ, Apr 24, 2019 11:19 FADUMO RUSH DO Apr 24, 2019 20:45
[2019-04-24] MEDS: DARBEPOETIN 25 MCG/ML (ARANESP) 1 ML HOSPITAL SC SCH (11:26)
--- NOTE | 2019-04-24 16:12 | Progress Note ---
Standard Progress Note Progress Notes/Assess & Plan Date Seen by a Provider: Apr 24, 2019 Time Seen by a Provider: 16:08 Progress/Assessment & Plan 68-year-old female with right lower extremity cellulitis and on IV antibiotics. Developed atrial fibrillation with rapid ventricular response and on chronic anticoagulation. Has acute on chronic renal failure and anemia of chronic disease. Fecal occult blood test positive indicating some GI blood loss. Status post cardioversion today morning and in sinus rhythm now. Patient was started on Aranesp 20 g daily because of anemia of chronic disease secondary to chronic kidney disease stage IV. Renal function stable with GFR 20 mL per minute. Hemoglobin 7.3 with the reticulocyte count 87,000 today. 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 Continue parenteral iron therapy and Aranesp. Consider discontinuing anticoagulation if bleeding worsens. Will follow patient with you. POLO SAVAGE Apr 24, 2019 16:12
[2019-04-24] MEDS: PANTOPRAZOLE 40 MG (PROTONIX) TAB PO SCH (16:15)
--- NOTE | 2019-04-24 17:20 | Wound Care Assessment ---
Wound Care Assessment Date Seen by Provider: Apr 24, 2019 Time Seen by Provider: 17:00 Chief Complaint Swelling and redness of R calf. HPI The patient is a 68 year old female with a 5 day history of swelling and progressive redness of R calf. No open wound. Multiple co-morbidities. Improved with elevation and IV antibiotics. Will follow. 04/21/19 Interval Note: The patient has no complaint referable to R leg. The leg shows more edema, but reduced erythema. The patient was in bed with her legs dependent. She is counselled that to the degree that she is able to elevate, her legs will improve. No open wounds. Arterial studies ordered. 04/23/10 Interval Note: the patient has been transferred to ICU for atrial fibrillation with RVR. She has worsening CHF and edema, with blister formation of the R calf and thigh. Segmental pressures not available, but the patient is not a candidate for compression, even if her arterial perfusion were to be shown to be good. No specific dressing orders. Will not unroof the blisters at this time. Will follow. 04/24/19 Interval Note: Less trouble with breathing this afternoon. The leg is less taut. No erythema. Arterial studies consistent with significant atherosclerotic disease. If circumstances will allow, I would hold off evaluation/intervention in regards to arterial status of R leg until clinical outcome from current problems is more clear. Will follow. Past Medical History: Admits Diabetes Type II, Admits Heart Disease Smoking Status: Never a Smoker Recreational Drug Use: No Alcohol Use: Denies Use Review of Systems HEENT: No Head Aches Pulmonary: Dyspnea Cardiovascular: No: Chest Pain Exam Vital Signs Date Time Temp Pulse Resp B/P (MAP) Pulse Ox O2 Delivery O2 Flow Rate FiO2 04/24/19 16:00 83 24 134/57 (82) 92 Vapotherm 30.00 30.00 04/24/19 15:12 30 04/24/19 04:48 98.0 Capillary Refill : Less Than 3 Seconds General Appearance: no apparent distress HEENT: normal ENT inspection Cardiovascular: other (Tense lower extremity edema.) Results Laboratory Tests 04/23/19 18:30: Stool Occult Blood Immunoassay POSITIVEH 04/23/19 20:37: Glucometer 186H 04/24/19 03:16: Blood Gas Puncture Site RIGHT RADIAL, Blood Gas Patient Temperature 96.9, Arter ial Blood pH 7.36L, Arterial Blood Partial Pressure CO2 42, Arterial Blood Partial Pressure O2 87, Arterial Blood HCO3 24, Arterial Blood Total CO2 24.9, Arterial Blood Oxygen Saturation 98, Arterial Blood Base Excess -1.2, Jai Test YES-POS, Blood Gas Ventilator Setting NO, Blood Gas Inspired Oxygen 35% 04/24/19 03:25: White Blood Count 10.3, Red Blood Count 2.83L, Hemoglobin 7.3L, Hematocrit 25L, Mean Corpuscular Volume 87, Mean Corpuscular Hemoglobin 26, Mean Corpuscular Hemoglobin Concent 30L, Red Cell Distribution Width 16.2H, Platelet Count 283, Mean Platelet Volume 9.6, Neutrophils (%) (Auto) 78H, Lymphocytes (%) (Auto) 13, Monocytes (%) (Auto) 8, Eosinophils (%) (Auto) 2, Basophils (%) (Auto) 0, Neutrophils # (Auto) 8.0H, Lymphocytes # (Auto) 1.3, Monocytes # (Auto) 0.8, Eosinophils # (Auto) 0.2, Basophils # (Auto) 0.0, Absolute Reticulocyte Count 77, Percent Reticulocyte Count 2.73H, Sodium Level 140, Potassium Level 3.9, Chloride Level 109H, Carbon Dioxide Level 19L, Anion Gap 12, Blood Urea Nitrogen 22H, Creatinine 2.38H, Estimat Glomerular Filtration Rate 20, BUN/Creatinine Ratio 9, Glucose Level 120H, Calcium Level 8.6, Corrected Calcium 9.6, Phosphorus Level 3.5, Magnesium Level 1.6L, Total Bilirubin 0.2, Aspartate Amino Transf (AST/SGOT) 14, Alanine Aminotransferase (ALT/SGPT) 12, Alkaline P hosphatase 147H, Total Protein 6.3L, Albumin 2.7L, Digoxin Level 0.79L 04/24/19 11:19: Glucometer 150H 04/24/19 16:27: Glucometer 115H Microbiology 04/19/19 Blood Culture - Final, Complete Staphylococcus epidermidis Bacillus sp not B. anthracis 04/19/19 MRSA Screen - Final, Complete MRSA not isolated 04/20/19 Urine Culture - Final, Complete YEAST Assessment/Plan/Dx 1. Cellulitis of R calf. 2. Lymphedema, worse due to CHF. 3. Functional paraplegia. Plan: The patient has persistent edema and congestive failure. Suspect blisters will open and be at risk of secondary infection. Elevation remains difficult due to respiratory status. Will follow. ESTEPHANIE PICHARDO MD Apr 24, 2019 17:20
[2019-04-24] MEDS: inSUlin ASPART (NovoLOG) 1 UNIT/0.01 ML (CHARGE PER UNIT) SQ SCH (21:39)
[2019-04-24] MEDS: ATORVASTATIN 40 MG (LIPITOR) TABLET PO SCH (21:39)
[2019-04-25] VITALS (13 sets, daily range): BP systolic 127–181; BP diastolic 54–74
[2019-04-25] MEDS: PIPERACILLIN/TAZO 4.5 GM/NS 100 ML IV SCH ×6 (01:27→16:26)
[2019-04-25] MEDS: RT-ALBUTEROL/IPRATROPIUM 3 ML (DUONEB) VIAL INH SCH ×6 (02:32→22:26)
[2019-04-25 03:50] LABS: BASOPHILS % (AUTO) 0 % (0-10); EOSINOPHILS # (AUTO) 0.1 10^3/uL (0.0-0.3); EOSINOPHILS % (AUTO) 1 % (0-10); HEMATOCRIT 26 % (35-52); HEMOGLOBIN 7.4 G/DL (11.5-16.0); LYMPHOCYTES % (AUTO) 9 % (12-44); MEAN CORPUSCULAR HEMOGLOBIN 26 PG (25-34); MEAN CORPUSCULAR HGB CONC 29 G/DL (32-36); MEAN CORPUSCULAR VOLUME 88 FL (80-99); MEAN PLATELET VOLUME 9.4 FL (7.4-10.4); MONOCYTES # (AUTO) 0.9 X 10^3 (0.0-1.0); MONOCYTES % (AUTO) 8 % (0-12); NEUTROPHILS # (AUTO) 9.1 X 10^3 (1.8-7.8); NEUTROPHILS % (AUTO) 81 % (42-75); PLATELET COUNT 346 10^3/uL (130-400); RED CELL DISTRIBUTION WIDTH 17.2 % (10.0-14.5); WHITE BLOOD COUNT 11.2 10^3/uL (4.3-11.0)
[2019-04-25 04:08] LABS: CALCIUM 8.7 MG/DL (8.5-10.1); CREATININE SERUM 2.27 MG/DL (0.60-1.30); MAGNESIUM 1.8 MG/DL (1.8-2.4); POTASSIUM 3.8 MMOL/L (3.6-5.0)
[2019-04-25] MEDS: POTASSIUM CL 10MEQ/50ML IVPB 50 ML IV SCH (04:17)
[2019-04-25] MEDS: KCL 20 MEQ TAB (K-DUR) PO SCH (04:17)
[2019-04-25] MEDS: MAGNESIUM 1 GM/100 ML IVPB 100 ML IV SCH (04:17)
[2019-04-25] MEDS: RT-ADVAIR HFA 115/21 MCG PER PUFF IH SCH (06:00)
[2019-04-25] MEDS: inSUlin ASPART (NovoLOG) 1 UNIT/0.01 ML (CHARGE PER UNIT) SQ SCH ×4 (06:28→21:04)
[2019-04-25] MEDS: FUROSEMIDE 40 MG/4 ML INJ (LASIX) IVP SCH ×2 (06:28→16:26)
[2019-04-25] MEDS: SUCRALFATE 1 GM (CARAFATE) TAB PO SCH ×4 (06:28→19:53)
[2019-04-25] MEDS ORDERED: KCL 20 MEQ TAB (K-DUR) PO NR (06:45)
[2019-04-25] MEDS: DILTIAZEM 180 MG (CARDIZEM CD) CAP PO SCH (08:05)
[2019-04-25] MEDS: meTOprolol SUCCINATE 100 MG (TOPROL XL) TAB PO SCH (08:05)
[2019-04-25] MEDS: DIGOXIN 0.25 MG (LANOXIN) TAB PO SCH (08:05)
[2019-04-25] MEDS: fluCOnazole (DIFLUCAN) 100 MG TAB PO SCH (08:05)
[2019-04-25] MEDS: APIXABAN 5 MG (ELIQUIS) TABLET PO SCH ×2 (08:05→19:53)
[2019-04-25] MEDS: GABAPENTIN 300 MG (NEURONTIN) CAP PO SCH ×2 (08:05→19:53)
--- NOTE | 2019-04-25 09:08 | NUR ---
PATIENT TRANSFERRED TO ROOM 415 AT THIS TIME. PERSONAL BELONGINGS SENT WITH PATIENT. REPORT GIVEN TO RAJESH MCCALL TO ASSUME CARE OF PATIENT
--- NOTE | 2019-04-25 09:10 | NUR ---
TRANSFERRED FROM ICU TO ROOM 415. ALERT AND COOPERATIVE. SKIN PALE. RESP. SL. LABORED. O2 ON AT 3 L PER MIN PER N/C. LARGE BLISTER TO RIGHT LOWER LEG NOT OPENED, BUT FILLED WITH LARGE AMT. FLUID. RIGHT INNER UPPER LEG WITH ABRASION LIKE AREA NOTED. ALLEVYN APPLIED TO RIGHT OUTER LEG WOUND AND ALLEVYN APPLIED TO RIGHT BUTTOCKS AREA WOUND. BLEEDING NOTED FROM PRESSURE AREA TO RIGHT BUTTOCKS/COCCYX AREA. IV INFUSING WELL PER LEFT UPPER ARM/CHEST AREA. LEFT EXT. BEVERLY. FLACCID. SWELLING NOTED IN BOTH LOWER LEGS WITH DISCOLORATION.
--- NOTE | 2019-04-25 09:58 | Diagnostic Imaging Report ---
EXAMINATION: Portable AP chest at 0342 hours. INDICATION: Dyspnea. FINDINGS: This exam is less than optimal as the patient is rotated. When compared to the prior exam of 04/24/2019, there does not appear to have been any significant change. The heart is enlarged and there is still a vague area of increased density involving the right lung. Most likely, this is due to pneumonia/atelectasis and fluid. The left retrocardiac region is not well penetrated. The left upper lung is clear. The central pulmonary vascularity does not seem to be engorged but there may be an element of mild pulmonary congestion present. The mediastinum is not widened. The osseous structures are intact. IMPRESSION: Stable chest. There has been no adverse change since the prior exam. A followup study would be recommended for continued evaluation. Dictated by: Dictated on workstation # [id number]
--- NOTE | 2019-04-25 10:00 | NUR ---
DR. RUSH NOTIFIED OF LARGE AMT. FOUL SMELLING YELLOW MUCUS-LIKE SUBSTANCE COMING FROM VAGINAL AREA. NEW ORDER NOTED. 500 CC TAP WATER DOUCHE PER VAGINA. KILO. WELL. HAD MOD. AMT. BROWN FORMED BM IN BEDPAN.
--- NOTE | 2019-04-25 11:17 | Progress Note - Hospitalist ---
NOEMY TARIQ, 04/25/19 1117: Subjective HPI/CC On Admission Date Seen by Provider: Apr 25, 2019 Time Seen by Provider: 07:20 Subjective/Events-last exam Pt felt cardioversion procedure went well yesterday Denies n/v, SOB, chest pain No BM since before procedure Denies pain Is not ambulating Vitals stable Cr 2.27 WBC 11.2 CXR demonstrates cardiomegaly with pulmonary venous congestion Zosyn DC 04/26/19 Fluconazole DC 04/28/[address] Ramírez Expiratory wheezing bilaterally Cardiovascular: RRR Objective Exam Vital Signs Vital Signs Date Time Temp Pulse Resp B/P (MAP) Pulse Ox O2 Delivery O2 Flow Rate FiO2 04/25/19 08:28 97.6 04/25/19 08:00 92 24 148/65 (92) 100 Vapotherm 30.00 30.00 04/25/19 07:53 30 Capillary Refill : Less Than 3 Seconds Results/Procedures Lab Laboratory Tests 04/25/19 03:01 Patient resulted labs reviewed. Imaging: Reviewed Imaging Films Assessment/Plan Assessment and Plan Assess & Plan/Chief Complaint Assessment: 1. Congestive heart failure secondary to A. fib with RVR 2. Acute respiratory insufficiency secondary to number 1 3. Acute on chronic renal failure possibly secondary to intravascular volume depletion versus from diabetes 4. Iron deficient anemia on replacement 5. History of previous CVA with left sided hemiparesis 6. Type II diabetes on insulin 7. Sepsis on Zosyn-resolving 8. Cellulitis right lower leg with blister formation will need wound care co nsult 9. Possible oral thrush on Diflucan 10. Bullous pemphigoid RLE Plan 1. Cardioversion and continuing care with Dr. Calderon 2. Continue antibiotic 3. Wound care if needed 4. Order PT/OT treatments to get pt moving Diagnosis/Problems Diagnosis/Problems (1) UTI (urinary tract infection) Status: Acute Qualifiers: Qualified Codes: N30.00 - Acute cystitis without hematuria (2) Acute sepsis Status: Acute (3) History of CVA (cerebrovascular accident) Status: Chronic (4) Cellulitis of leg without foot, right Status: Acute (5) Urinary tract infection Status: Acute Qualifiers: Qualified Codes: N30.01 - Acute cystitis with hematuria (6) Depression Status: Chronic Qualifiers: Qualified Codes: F32.9 - Major depressive disorder, single episode, unspecified (7) Normocytic anemia Status: Chronic (8) Sepsis Status: Acute Qualifiers: Qualified Codes: A41.9 - Sepsis, unspecified organism (9) ANKIT (obstructive sleep apnea) Status: Chronic (10) BMI 40.0-44.9, adult Status: Chronic (11) DVT prophylaxis Status: Acute (12) Insulin dependent diabetes mellitus with complications Status: Chronic (13) Respiratory failure Status: Acute Qualifiers: Qualified Codes: J96.00 - Acute respiratory failure, unspecified whether with hypoxia or hypercapnia (14) REFLUX (15) Encounter for screening colonoscopy (16) At risk for deep venous thrombosis Status: Acute (17) Bedbound Status: Chronic Clinical Quality Measures DVT/VTE Risk/Contraindication: Risk Factor Score Per Nursin RFS Level Per Nursing on Admit: 4+=Very High FADUMO RUSH DO 04/25/192031: Subjective Subjective/Events-last exam Pt transferred to [facility] from ICU. Chest X-ray reveals cardiomegaly with congestion. Cardioversion maintain normal sinus rhythm. No BM so will initiate a treatment. No pain is reported. Home meds will be evaluated and restarted. Will order PT and OT. Creatinine remains at 2.27. Vaginal douche will be initiated due to vaginal secretions. Pt maintained on Diflucan. Review of Systems General: Fatigue Pulmonary: Dyspnea Objective Exam General Appearance: No Apparent Distress, WD/WN, Chronically ill, Obese Respiratory: No Accessory Muscle Use, No Respiratory Distress, Crackles, Decreased Breath Sounds, Wheezing Cardiovascular: No Edema, No Gallop, No JVD, No Murmur, Normal Peripheral Pulses, Tachycardia Neurologic/Psychiatric: Alert, Oriented x3, No Motor/Sensory Deficits, Normal Mood/Affect Assessment/Plan Assessment and Plan Assess & Plan/Chief Complaint Thrush treatment Monitor closely Prognosis poor skilled nursing Diagnosis/Problems Diagnosis/Problems (1) Respiratory failure Status: Acute Qualifiers: Qualified Codes: J96.00 - Acute respiratory failure, unspecified whether with hypoxia or hypercapnia (2) ANKIT (obstructive sleep apnea) Status: Chronic (3) BMI 40.0-44.9, adult Status: Chronic (4) Insulin dependent diabetes mellitus with complications Status: Chronic (5) Bedbound Status: Chronic (6) History of CVA (cerebrovascular accident) Status: Chronic (7) REFLUX Supervisory-Addendum Brief Verification & Attestation Time: Verification & Attestat.: 09:00 Participated in pt care: history, MDM, physical Personally performed: exam, history, MDM, supervision of care Care discussed with: Medical Student Procedures: n/a Results interpretation: Verified all documentation Verification and Attestation of Medical Student E/M Service A medical student performed and documented this service in my presence. I reviewed and verified all information documented by the medical student and made modifications to such information, when appropriate. I personally performed the physical exam and medical decision making. Fadumo Rush, Apr 25, 2019,20:32 NOEMY TARIQ, Apr 25, 2019 11:17 FADUMO RUSH DO Apr 25, 2019 20:32
--- NOTE | 2019-04-25 11:20 | Physician Query Clarification ---
PQ-Link Manifestation-Etiology Admission/Discharge Admission Date: Apr 19, 2019 at 13:38 Discharge Date: The medical record reflects the following clinical scenario: History/Risk Factors: Sepsis Acute Respiratory Failure Pneumonia COPD Clinical Findings: T105.0, Pulse 123, Resp 22, WBC 13.1. Acute Respiratory Failure and fever of 105.[address] Patel consult. Treatment: IV Zosyn and BiPAP Question: Can you specify if the Acute Respiratory Failure is due to/associated with Sepsis? Please document a response in the Progress Note or Discharge Summary. 1. Yes - [Manifestation] is due to/associated with [etiology]. 2. No - [Manifestation] is not due to/associated with [etiology]. 3. Other, with explanation of the clinical findings. 4. Clinically undetermined, no explanation for the clinical findings. PHYSICIAN RESPONSE Manifestation due to/assoic: Other,explanation/clinical finding Explanation of clincal finding Likely 2/2 to fluid given for sepsis given patient's ANKIT and morbid obesity Please remember a lack of response to the above will prompt a phone page by CDI/Coding staff. In responding to this query, please exercise your independent professional judgment. The purpose of this communication is to more accurately reflect the complexity of your patients condition. The fact that a question is asked does not imply that any particular answer is desired or expected. Thank you for your timely response to this clarification. Requestors name: Chayito Glasgow [facility] Phone # ext [phone] or [phone] THIS PHYSICIAN QUERY FORM IS A PERMANENT PART OF THE MEDICAL RECORD CHAYITO GLASGOW Apr 25, 2019 11:20 LARY WHITMORE MD May 03, 2019 20:28
--- NOTE | 2019-04-25 11:28 | Physician Query Clarification ---
PQ-Further Specificity Admission/Discharge Admission Date: Apr 19, 2019 at 13:38 Discharge Date: The medical record reflects the following clinical scenario: History/Risk Factors: Sepsis Cellulitis of right calf UTI Clinical Findings: Blood culture- positive for Staphylococcus Epidermidis and Bacillus. Urine Culture- positive for yeast. Treatment: IV Zosyn and Diflucan. Question: Can you further specify (organism responsible for patient's sepsis) per the clinical indicators above? Please document a response in the Progress Notes or Discharge Summary. 1. Staphylococcus Epidermidis sepsis due to cellulitis right calf. 2. Yeast sepsis due to yeast UTI. 3. Other, with explanation of the clinical findings. 4. Clinically undetermined, no explanation for the clinical findings. PHYSICIAN RESPONSE Can you specify per above: Clinically undetermined (Blood culture is a contaminate) Please remember a lack of response to the above will prompt a phone page by CDI/Coding staff. In responding to this query, please exercise your independent professional judgment. The purpose of this communication is to more accurately reflect the complexity of your patients condition. The fact that a question is asked does not imply that any particular answer is desired or expected. Thank you for your timely response to this clarification. Requestors name: Chayito Glasgow [facility] Phone # ext [phone] or [phone] THIS PHYSICIAN QUERY FORM IS A PERMANENT PART OF THE MEDICAL RECORD CHAYITO GLASGOW Apr 25, 2019 11:28 LARY WHITMORE MD May 03, 2019 20:27
--- NOTE | 2019-04-25 11:47 | Physical Therapy Evaluation ---
PT Evaluation-General Medical Diagnosis Admission Date Apr 19, 2019 at 13:38 Medical Diagnosis: urosepsis/respiratory failure Onset Date: Apr 19, 2019 Therapy Diagnosis Therapy Diagnosis: weakness/debility Height/Weight Height (Feet): 5 Height (Inches): 6.00 Weight (Pounds): 282 Weight (Ounces): 0.0 Precautions Precautions/Isolations: Fall Prevention, Standard Precautions Referral Physician: Chelsea Reason for Referral: Evaluation/Treatment Medical History Pertinent Medical History: Atrial Fib, CAD, COPD, CVA (left side flaccid) Additional Medical History aspiration pneumonia/morbid obesity Current History ER secondary to fever and weakness Reviewed History: Yes Social History Home: Intermediate Prior/Core FIM Prior Level of Function Therapy Code Descriptions/Definitions Functional [place] Measure: 0=Not Assessed/NA 4=Minimal Assistance 1=Total Assistance 5=Supervision or Setup 2=Maximal Assistance 6=Modified [place] 3=Moderate Assistance 7=Complete [place] Therapy Quality Codes: 6 Independent with activity with or without an assistive device 5 Patient requires set up or clean up by helper. Patient completes activity by themselves 4 Supervision or touching assist (CGA). [place] provide cues , steadying assist 3 The helper provides less than half the effort to complete the activity 2 The helper provides more than half the effort to complete the activity 1 Dependent. The helper does all the effort to complete an activity 7 Patient refused to complete or attempt activity 9 The patient did not perform the activity before the current illness or injury 88 Not attempted due to Medical conditions or safety concerns Functional Abilities and Goals: Independent: Patient completed the activities by him/herself, with or without an assistive device, with no assistance from a helper. Needed Some Help: Patient needed partial assistance from another person to complete activities. Dependent: A helper completed the activities for the patient. Unknown: Not Applicable: Bed Mobility: 2 Transfers (B,C,W/C) (FIM): 2 (patient and staff utiliza a pole at [place] with sit to stand and SPT) Indoor Mobility (Ambulation): Not [place] Stairs: Not [place] Prior Devices Use: Manual wheelchair, Other-see list below Prior Device Use: pole at [place] for transfers PT Evaluation-Current Subjective Patient agrees to PT. Pain Numeric Pain Scale: 0-No Pain Location: No Pain Reported Objective Patient Orientation: Normal For Age Problem Solving: Poor Attachments: Oxygen (HF), IV ROM/Strength ROM Lower Extremities right LE WFL/left LE rigid with increase tone with PROM and noted clonus left foot Strength Lower Extremities right LE 2+/5 grossly/left LE flaccid Integumentary/Posture Integumentary refer to nursing notes Bowel Incontinence: Yes Bladder Incontinence: Yes Posture unable to assess due to patient inability to sit EOB Neuromuscular (Tone, Coordination, Reflexes) severely diminished coordination, tone and reflexes left LE due to old CVA and weakness Transfers Therapy Code Descriptions/Definitions Functional [place] Measure: 0=Not Assessed/NA 4=Minimal Assistance 1=Total Assistance 5=Supervision or Setup 2=Maximal Assistance 6=Modified [place] 3=Moderate Assistance 7=Complete [place] Transfers (B, C, W/C) (FIM): 1 Scootin Rollin Supine to/from Sit: 1 attempted to perform supine to sit EOB, however, patient unable to attain with severely diminished core strength to attain sitting EOB. Dependent assist x 2 and placement of the bed in Trendelenburg for reposition in bed due to weakness and morbid obesity. Gait Mode of Locomotion: Wheelchair Anticipated Mode of Locomotion: Wheelchair Assessment/Needs 68 y.o. female, will be seen short term by skilled PT to address functional bed mobility to EOB and strength. Patient is morbidly obese and has minimal to no core strength to assist with mobility. Left side is flaccid. Rehab Potential: Poor PT Department Store Salesperson Goals [facility]ci Goals PT [facility] Goals Time Frame: May 06, 2019 Transfers (B,C,W/C) (FIM): 2 PT Plan Problem List Problem List: Activity Tolerance, Functional Strength, Safety, Balance, Transfer, Bed Mobility, ROM Treatment/Plan Treatment Plan: Continue Plan of Care Treatment Plan: Bed Mobility, Education, Functional Activity Vick, Functional Strength, Safety, Therapeutic Exercise, Transfers Treatment Duration: May 06, 2019 Frequency: 5 times per week Estimated Hrs Per Day: .25 hour per day Patient and/or Family Agrees t: Yes Discharge Recommendations Therapy D/C Recommendations: Intermediate Placement, Nursing Home (TCU/NH) Time/GCodes Time In: 1105 Time Out: 1124 Total Billed Treatment Time: 19 Total Billed Treatment 1 visit EVModC 19 min MICHAEL ADAN PT Apr 25, 2019 11:47
--- NOTE | 2019-04-25 11:55 | Occupational Therapy Eval ---
OT Evaluation-General/PLF Medical Diagnosis Admission Date Apr 19, 2019 at 13:38 Medical Diagnosis: urosepsis/respiratory failure Onset Date: Apr 19, 2019 Therapy Diagnosis Therapy Diagnosis: impaired ADLs and mobility Height/Weight Height (Feet): 5 Height (Inches): 6.00 Weight (Pounds): 282 Weight (Ounces): 0.0 Precautions Precautions/Isolations: Fall Prevention, Standard Precautions Safety Interventions: None Referral Physician: Chelsea Medical History Pertinent Medical History: Atrial Fib, CAD, COPD, CVA (left side flaccid) Additional Medical History per H&P: "The patient is a morbidly obese, 68 y/o woman who presented to the [facility] with a chief complaint of high fever. She is a resident at a halfway care facility and she states that she has been having mild intermittent fevers for the past four days. When her fever spiked yesterday morning her caretakers called for EMS. She has been treated with several rounds of oral antibiotics for cellulitis which she reports has not been effective and has not reduced the inflammation and pain in her right leg. The patient reports minimal pain currently but pain at 7/10 with movement of the right lower extremity. The patient has a history of CVA with left sided flaccid paralysis. The right leg is swollen and erythematous with a large red plaque on the lateral upper thigh. The rest of the review of systems was negative and the patient has no other complaints at this time." Reviewed History: Yes Social History Home: Senior Living Entry Into Home: Ramp ADL-Prior Level of Function Therapy Code Descriptions/Definitions Functional [place] Measure: 0=Not Assessed/NA 4=Minimal Assistance 1=Total Assistance 5=Supervision or Setup 2=Maximal Assistance 6=Modified [place] 3=Moderate Assistance 7=Complete [place] Therapy Quality Codes: 6 Independent with activity with or without an assistive device 5 Patient requires set up or clean up by helper. Patient completes activity by themselves 4 Supervision or touching assist (CGA). [place] provide cues , steadying assist 3 The helper provides less than half the effort to complete the activity 2 The helper provides more than half the effort to complete the activity 1 Dependent. The helper does all the effort to complete an activity 7 Patient refused to complete or attempt activity 9 The patient did not perform the activity before the current illness or injury 88 Not attempted due to Medical conditions or safety concerns Functional Abilities and Goals: Independent: Patient completed the activities by him/herself, with or without an assistive device, with no assistance from a helper. Needed Some Help: Patient needed partial assistance from another person to complete activities. Dependent: A helper completed the activities for the patient. Unknown: Not Applicable: ADL PLOF Comments pt stated she was dep with dressing, bathing, toileting, set up for grooming, an d eating. pty stated she perform stand pivot transfers using bar. pt stated she used w/c MOD I Self Care: Dependent Functional Cognition: Independent DME/Equipment: Shower Drive Self: No OT Current Status Subjective pt laying in be dupon OT arrival.pt agreed to OT eval session. pt reports no pain. Appearance right leg red, with blisters Mental Status/Objective Patient Orientation: Normal For Age Attachments: Aguiar Catheter, IV, Oxygen Current Glasses/Contacts: Yes Hearing Aids: No Dentures/Partials: Yes Hand Dominance: Right Upper Extremity ROM left UE flaccid. noted slight tone in elbow. rught UE WNL Upper Extremity Coordination L UE deficits Right UE WNL Upper Extremity Sensation L UE light touch intact Right UE WNL Upper Extremity Strength rUE 3+/5 MMT LUE 0 Edema: ruth UE. ADL-Treatment Therapy Code Descriptions/Definitions Functional [place] Measure: 0=Not Assessed/NA 4=Minimal Assistance 1=Total Assistance 5=Supervision or Setup 2=Maximal Assistance 6=Modified [place] 3=Moderate Assistance 7=Complete [place] Therapy Quality Codes: 6 Independent with activity with or without an assistive device 5 Patient requires set up or clean up by helper. Patient completes activity by themselves 4 Supervision or touching assist (CGA). [place] provide cues , steadying assist 3 The helper provides less than half the effort to complete the activity 2 The helper provides more than half the effort to complete the activity 1 Dependent. The helper does all the effort to complete an activity 7 Patient refused to complete or attempt activity 9 The patient did not perform the activity before the current illness or injury 88 Not attempted due to Medical conditions or safety concerns Eating (FIM): 5 (set up ) Grooming (FIM): 3 (required assist with Lef hand ) Transfers (B, C, W/C) (FIM): 1 pt currently dep for dressing, bed mobility. pt unsafe to perform functional transfers would recommend Griselda at this time. pt education on supine to sit to left side of bed. pt required TA . full sit not complete Education OT Patient Education: Progress toward Goal/Update tx plan, Purpose of tx/functional activities Teaching Recipient: Patient Teaching Methods: Demonstration, Discussion Response to Teaching: Verbalize Understanding, Return Demonstration OT Short Term Goals Short Term Goals Grooming(FIM): 4 1=Demonstrate adherence to instructed precautions during ADL tasks. 2=Patient will verbalize/demonstrate understanding of assistive devices/modifications for ADL. 3=Patient will improve strength/tolerance for activity to enable patient to perform ADL's. OT Singeing Torch Operator Goals Fpc Goals Grooming(FIM): 5 Additional Goals: 1-Demonstrate ADL Tasks, 2-Verbalize Understanding, 3- ImproveStrength/Vick 1=Demonstrate adherence to instructed precautions during ADL tasks. 2=Patient will verbalize/demonstrate understanding of assistive d evices/modifications for ADL. 3=Patient will improve strength/tolerance for activity to enable patient to perform ADL's. OT Education/Plan Problem List/Assessment Assessment: Decreased Activ Tolerance, Decreased Safety Aware, Decreased UE Strength, Dependent Transfers, Edema, Impaired Bed Mobility, Impaired Cognition, Impaired Coordination, Impaired Funct Balance, Impaired I ADL's, Impaired Self- Care Skills, Restricted Funct UE ROM Discharge Recommendations Plan/Recommendations: Continue POC Therapy D/C Recommendations: 24 hr Supervision, Longterm (TCU/NH) Treatment Plan/Plan of Care Treatment,Training & Education: Yes Patient would benefit from OT for education, treatment and training to promote independence in ADL's, mobility, safety and/or upper extremity function for ADL's. Plan of Care: ADL Retraining, Functional Mobility, Group Exercise/Act as Ind, UE Funct Exercise/Act Treatment Duration: May 02, 2019 Frequency: 5 times per week Estimated Hrs Per Day: .25 hour per day Agreement: Yes Rehab Potential: Guarded Time/GCodes Start Time: 11:45 Stop Time: 12:05 Billed Treatment Time EVM 20 minutes MATTHEW COLON OT Apr 25, 2019 11:55
[2019-04-25] MEDS: NYSTATIN ORAL SUSP 5 ML UDC PO SCH ×2 (12:20→16:25)
[2019-04-25] MEDS: POLYETHYLENE GLYCOL 17 GM (MIRALAX) PACK PO SCH ×2 (12:27→19:53)
[2019-04-25] MEDS: SENNA W/DOCUSATE (SENOKOT S) TABLET PO SCH ×2 (12:27→19:53)
[2019-04-25] MEDS: DARBEPOETIN 25 MCG/ML (ARANESP) 1 ML HOSPITAL SC SCH (12:32)
--- NOTE | 2019-04-25 13:24 | NUR ---
HAD LARGE AMT. SEMI-FORMED BROWN BM IN BEDPAN.
--- NOTE | 2019-04-25 16:05 | Progress Note ---
Standard Progress Note Progress Notes/Assess & Plan Date Seen by a Provider: Apr 25, 2019 Time Seen by a Provider: 16:00 Progress/Assessment & Plan 68-year-old female with right lower extremity cellulitis and on IV antibiotics. Developed atrial fibrillation with rapid ventricular response and on chronic anticoagulation. Has acute on chronic renal failure and anemia of chronic disease. Fecal occult blood test positive indicating some GI blood loss. Status post cardioversion and in sinus rhythm now. Patient was started on Aranesp 20 g daily because of anemia of chronic disease secondary to chronic ki dney disease stage IV. She is tolerating this well. Laboratory Tests 04/25/19 03:01 Hemoglobin stable today. Continue to monitor. Chronic kidney disease stage IV. Stable and continue to monitor. A. fib with RVR, status post cardioversion and in sinus rhythm now. On anticoagulation with Eliquis. DC at the earliest safe opportunity. Continue Aranesp for ACD due to chronic kidney disease stage IV. Patient is [employer] and refuses blood or blood products. Will follow patient with you. POLO SAVAGE Apr 25, 2019 16:04
--- NOTE | 2019-04-25 16:13 | Cardiology Progress Note ---
Subjective Date Seen by Provider: Apr 25, 2019 Time Seen by Provider: 16:11 Subjective/Events-last exam Patient is laying down in bed, still having significant dyspnea. Heart rate is regular. Rate is controlled Review of Systems General: No Chills, No Night Sweats; Fatigue, Malaise; No Appetite, No Other HEENT: No Head Aches, No Visual Changes, No Eye Pain, No Ear Pain, No Dysphasia, No Sinus Congestion, No Post Nasal Drip, No Sore Throat, No Other Pulmonary: Dyspnea; No Cough, No Pleuritic Chest Pain, No Other Cardiovascular: Orthopnea, Edema; No: Chest Pain, Palpitations, Paroxysmal Noc. Dyspnea, Lt Headedness, Other Objective-Cardiology Exam Last Set of Vital Signs Vital Signs 04/25/19 04/25/19 04/25/19 04/25/19 07:53 12:00 13:00 14:00 Temp 98.0 Pulse 79 Resp 18 B/P (MAP) 136/61 (86) Pulse Ox 93 O2 Delivery Nasal Cannula O2 Flow Rate 4.00 FiO2 30 Capillary Refill : Less Than 3 Seconds I&O Intake and Output 04/25/19 00:00 Intake Total 1710 ml Output Total 5350 ml Balance -3640 ml Intake Oral 845 ml IV Total 865 ml Output Urine Total 5350 ml General: Alert, Oriented X3, Cooperative, Mild Distress HEENT: Atraumatic, PERRLA Neck: Supple Lungs: Normal Air Movement, Other (bilateral rhonchi) Heart: Regular Rate, Normal S1, Normal S2, No Murmurs Abdomen: Normal Bowel Sounds, Soft, No Tenderness, No Masses Extremities: Other (3+ pitting edema R>L) Skin: Other (cellulitis on the right leg with blister) Neuro: Normal Speech, Sensation Intact Results Lab Laboratory Tests 04/25/19 03:01 A/P-Cardiology Admission Diagnosis Acute atrial fibrillation/flutter Acute respiratory failure Sepsis Hypertension Assessment/Plan Paroxysmal atrial fibrillation, underwent LIZETH with cardioversion on May 02, 2019, currently in sinus rhythm, rate is controlled. Continue current medication and continue to monitor Chronic anticoagulation for history of DVT, maintained on Eliquis 5 mg twice daily. Sepsis, probably secondary to cellulitis, there is a blister on the right leg with extensive cellulitis, does not appear to be ischemic in nature, had abnormal TIANNA, arterial ultrasound did not show significant obstructive disease. Dr. Field was consulted. Acute respiratory failure, history of COPD, obesity hypoventilation syndrome. H as been managed by Dr. Patel, continue on Lasix and monitor Anemia, slow drop in H&H, patient refused blood transfusion, started on Arinesp, managed by Dr. Almazan History of Deep venous thrombosis, noted on February 19, 2019 after emergency room visit for chest pain and shortness of breath, continue on Eliquis History of CVA, left-sided paralysis, continue on aspirin with Eliquis. Continue to monitor History of renal failure, chronic kidney disease stage 3-4, seen Dr. Branham in the past.. Continue to monitor Nonobstructive coronary artery disease per cardiac catheterization January 2012, continue to monitor Echocardiogram done on February 19, 2019 showing normal left ventricular size and systolic function, ejection fraction 55-65 percent, left atrial dilatation, PA pressure of 20 mmHg. Continue to monitor Hypertension-controlled. Continue monitor blood pressure/heart rate Hyperlipidemia, continue to monitor lipids Mild bilateral carotid artery stenosis. No recent carotid ultrasound, I will evaluate carotid ultrasound Obesity Depression Clinical Quality Measures DVT/VTE Risk/Contraindication: Risk Factor Score Per Nursin RFS Level Per Nursing on Admit: 4+=Very High FARAZ ALCALA MD Apr 25, 2019 16:13
[2019-04-25] MEDS: NS IV 1000 ML 1,000 ML IV SCH (16:28)
[2019-04-25] MEDS: PANTOPRAZOLE 40 MG (PROTONIX) TAB PO SCH (16:32)
--- NOTE | 2019-04-25 16:43 | Pulmonary Progress Note ---
Subjective Time Seen by a Provider: 09:50 Subjective/Events-last exam Still complains of SOB. Sepsis Event Evaluation Height, Weight, BMI Height: 5'6.00" Weight: 282lbs. 0.0oz. 127.069507xg; 43.6 BMI Method:Stated Exam Exam Vital Signs Date Time Temp Pulse Resp B/P (MAP) Pulse Ox O2 Delivery O2 Flow Rate FiO2 04/25/19 14:00 93 Nasal Cannula 4.00 04/25/19 13:00 79 04/25/19 12:00 98.0 82 18 136/61 (86) 93 Nasal Cannula 3.00 04/25/19 08:28 97.6 04/25/19 08:00 92 24 148/65 (92) 100 Vapotherm 30.00 30.00 04/25/19 07:53 100 Vapotherm 30.00 30 04/25/19 07:50 97.8 04/25/19 07:00 89 04/25/19 07:00 97 26 150/71 (97) 87 Vapotherm 30.00 30.00 04/25/19 06:00 90 24 145/67 (93) 93 Vapotherm 30.00 30.00 04/25/19 05:00 90 23 140/65 (90) 92 Vapotherm 30.00 30.00 04/25/19 04:00 Vapotherm 30.00 30 04/25/19 04:00 92 25 146/65 (92) 94 Vapotherm 30.00 30.00 04/25/19 03:33 98.2 04/25/19 03:00 93 27 132/64 (86) 95 Vapotherm 30.00 30.00 04/25/19 02:33 94 Vapotherm 30.00 30 04/25/19 02:00 90 26 127/69 (88) 95 Vapotherm 30.00 30.00 04/25/19 01:00 86 04/25/19 01:00 86 23 136/62 (86) 94 Vapotherm 30.00 30.00 04/25/19 00:00 86 24 139/54 (82) 94 Vapotherm 30.00 30.00 04/25/19 00:00 Vapotherm 30.00 30 04/25/19 00:00 98.5 04/24/19 23:00 89 26 153/52 (85) 95 Vapotherm 30.00 30.00 04/24/19 22:42 94 Vapotherm 30.00 30 04/24/19 22:00 90 27 141/59 (86) 94 Vapotherm 30.00 30.00 04/24/19 21:00 93 26 144/62 (89) 92 Vapotherm 30.00 30.00 04/24/19 20:00 Vapotherm 30.00 30 04/24/19 20:00 86 27 140/66 (90) 92 Vapotherm 30.00 30.00 04/24/19 19:30 99.4 04/24/19 19:00 96 26 135/68 (90) 92 Vapotherm 30.00 30.00 04/24/19 19:00 96 04/24/19 18:30 94 Vapotherm 30.00 30 04/24/19 18:29 94 Vapotherm 30.00 30 04/24/19 18:00 84 23 143/54 (83) 92 Vapotherm 30.00 30.00 04/24/19 17:00 85 23 143/65 (91) 91 Vapotherm 30.00 30.00 I & O 04/25/19 07:00 Intake Total 1235 ml Output Total 5800 ml Balance -4565 ml Height & Weight Height: 5'6.00" Weight: 282lbs. 0.0oz. 127.872916kx; 43.6 BMI Method:Stated General Appearance: WD/WN, Chronically ill, Mild Distress, Obese HEENT: Normal ENT Inspection Neck: Normal Inspection Respiratory: Chest Non Tender, Lungs Clear, No Accessory Muscle Use, No Respiratory Distress, Decreased Breath Sounds Cardiovascular: Regular Rate, Rhythm, No Edema, No Gallop, No JVD, No Murmur, Normal Peripheral Pulses Capillary Refill: Less Than 3 Seconds Gastrointestinal: normal bowel sounds, non tender, soft Extremity: Normal Capillary Refill, Pedal Edema Neurologic/Psychiatric: Alert, Disoriented Skin: Normal Color, Warm/Dry Lymphatic: No Adenopathy Results Lab Laboratory Tests 04/24/19 03:25 04/25/19 03:01 Assessment/Plan Assessment/Plan Acute respiratory failure - improving -BiPAP QHS and PRN - Vapotherm -Oxygen -SVNs Afib/flutter -Cardiology following Anemia -Monitor Pneumonia -Zosyn. -Hawkins culture -MRSA nasal swab - is negative Cellulitis with sepsis -Wound care is following Acute renal failure -Worsening Cr -D/C NSAIDS Anemia -Monitor Acute sepsis with UTI -Zosyn and diflucan morbid obesity Hx of DVT -Chronic anticoagulation HX of CVA with residule left sided paralysis AMNA WRIGHT DO Apr 25, 2019 16:43
--- NOTE | 2019-04-25 17:52 | Wound Care Assessment ---
Wound Care Assessment Date Seen by Provider: Apr 25, 2019 Time Seen by Provider: 17:45 Chief Complaint Swelling and redness of R calf. HPI The patient is a 68 year old female with a 5 day history of swelling and progressive redness of R calf. No open wound. Multiple co-morbidities. Improved with elevation and IV antibiotics. Will follow. 04/21/19 Interval Note: The patient has no complaint referable to R leg. The leg shows more edema, but reduced erythema. The patient was in bed with her legs dependent. She is counselled that to the degree that she is able to elevate, her legs will improve. No open wounds. Arterial studies ordered. 04/23/10 Interval Note: the patient has been transferred to ICU for atrial fibrillation with RVR. She has worsening CHF and edema, with blister formation of the R calf and thigh. Segmental pressures not available, but the patient is not a candidate for compression, even if her arterial perfusion were to be shown to be good. No specific dressing orders. Will not unroof the blisters at this time. Will follow. 04/24/19 Interval Note: Less trouble with breathing this afternoon. The leg is less taut. No erythema. Arterial studies consistent with significant atherosclerotic disease. If circumstances will allow, I would hold off evaluation/intervention in regards to arterial status of R leg until clinical outcome from current problems is more clear. Will follow. 04/25/19 Interval Note: Called to see in regards to rupture of R lower medial calf blister. This is unroofed and noted to be filled with thickened spongy fluid which is removed. Intact skin underlies. Xeroform dressings ordered. Past Medical History: Admits Diabetes Type II, Admits Heart Disease Smoking Status: Never a Smoker Recreational Drug Use: No Alcohol Use: Denies Use Review of Systems Pulmonary: Dyspnea Cardiovascular: No: Chest Pain Musculoskeletal: leg pain Exam Vital Signs Date Time Temp Pulse Resp B/P (MAP) Pulse Ox O2 Delivery O2 Flow Rate FiO2 04/25/19 16:00 98.2 87 22 142/70 (94) 97 High Flow N/C 3.00 04/25/19 07:53 30 Capillary Refill : Less Than 3 Seconds General Appearance: no apparent distress Respiratory: no respiratory distress Extremities: other (R calf remains edematous and inflamed.) Results Laboratory Tests 04/24/19 21:21: Glucometer 244H 04/25/19 03:01: White Blood Count 11.2H, Red Blood Count 2.89L, Hemoglobin 7.4L, Hematocrit 26L, Mean Corpuscular Volume 88, Mean Corpuscular Hemoglobin 26, Mean Corpuscular Hemoglobin Concent 29L, Red Cell Distribution Width 17.2H, Platelet Count 346, Mean Platelet Volume 9.4, Neutrophils (%) (Auto) 81H, Lymphocytes (%) (Auto) 9L, Monocytes (%) (Auto) 8, Eosinophils (%) (Auto) 1, Basophils (%) (Auto) 0, Neutrophils # (Auto) 9.1H, Lymphocytes # (Auto) 1.0, Monocytes # (Auto) 0.9, Eosinophils # (Auto) 0.1, Basophils # (Auto) 0.0, Sodium Level 143, Potassium Level 3.8, Chloride Level 109H, Carbon Dioxide Level 20L, Anion Gap 14, Blood Urea Nitrogen 20H, Creatinine 2.27H, Estimat Glomerular Filtration Rate 21, BUN/Creatinine Ratio 9, Glucose Level 126H, Calcium Level 8.7, Phosphorus Level 3.0, Magnesium Level 1.8 04/25/19 11:19: Glucometer 188H 04/25/19 16:43: Glucometer 117H Microbiology 04/19/19 Blood Culture - Final, Complete Staphylococcus epidermidis Bacillus sp not B. anthracis 04/19/19 MRSA Screen - Final, Complete MRSA not isolated 04/20/19 Urine Culture - Final, Complete YEAST Assessment/Plan/Dx 1. Cellulitis of R calf. 2. Lymphedema, worse due to CHF. 3. Functional paraplegia. 4. Morbid obesity. Plan: The patient seems to be about the same as far as the edema and inflammation of the R calf. The ruptured blister was removed. Elevation remains problematical due to respiratory status. Will follow. ESTEPHANIE PICHARDO MD Apr 25, 2019 17:52
[2019-04-25] MEDS: ATORVASTATIN 40 MG (LIPITOR) TABLET PO SCH (19:53)
[2019-04-26] MEDS: PIPERACILLIN/TAZO 4.5 GM/NS 100 ML IV SCH ×4 (00:32→09:18)
[2019-04-26] MEDS: RT-ALBUTEROL/IPRATROPIUM 3 ML (DUONEB) VIAL INH SCH ×6 (02:30→21:32)
[2019-04-26 04:34] VITALS: BP 144/75
[2019-04-26 05:45] LABS: BASOPHILS % (AUTO) 0 % (0-10); EOSINOPHILS # (AUTO) 0.2 10^3/uL (0.0-0.3); EOSINOPHILS % (AUTO) 2 % (0-10); HEMATOCRIT 25 % (35-52); HEMOGLOBIN 7.3 G/DL (11.5-16.0); LYMPHOCYTES # (AUTO) 1.1 X 10^3 (1.0-4.0); LYMPHOCYTES % (AUTO) 10 % (12-44); MEAN CORPUSCULAR HEMOGLOBIN 26 PG (25-34); MEAN CORPUSCULAR HGB CONC 29 G/DL (32-36); MEAN CORPUSCULAR VOLUME 89 FL (80-99); MONOCYTES # (AUTO) 0.8 X 10^3 (0.0-1.0); MONOCYTES % (AUTO) 8 % (0-12); NEUTROPHILS # (AUTO) 8.8 X 10^3 (1.8-7.8); NEUTROPHILS % (AUTO) 80 % (42-75); PLATELET COUNT 355 10^3/uL (130-400); RED CELL DISTRIBUTION WIDTH 17.1 % (10.0-14.5)
[2019-04-26 06:13] LABS: CALCIUM 8.6 MG/DL (8.5-10.1); CREATININE SERUM 2.16 MG/DL (0.60-1.30); MAGNESIUM 1.8 MG/DL (1.6-2.4); PHOSPHORUS 3.3 MG/DL (2.3-4.7); POTASSIUM 3.8 MMOL/L (3.6-5.0)
[2019-04-26] MEDS: RT-ADVAIR HFA 115/21 MCG PER PUFF IH SCH ×2 (06:14→18:54)
[2019-04-26] MEDS: NYSTATIN ORAL SUSP 5 ML UDC PO SCH ×4 (06:23→18:49)
--- NOTE | 2019-04-26 06:23 | NUR ---
PT IN BED ON 3 L AND WAS GIVEN A DUONEB SVN BT VIA MASK AT THIS TIME
[2019-04-26] MEDS: SUCRALFATE 1 GM (CARAFATE) TAB PO SCH ×4 (06:24→21:35)
[2019-04-26] MEDS: FUROSEMIDE 40 MG/4 ML INJ (LASIX) IVP SCH ×2 (06:24→16:18)
[2019-04-26] MEDS: inSUlin ASPART (NovoLOG) 1 UNIT/0.01 ML (CHARGE PER UNIT) SQ SCH ×4 (06:28→21:38)
[2019-04-26 08:00] VITALS: BP 128/72
--- NOTE | 2019-04-26 08:54 | Diagnostic Imaging Report ---
INDICATION: Dyspnea. TIME OF EXAMINATION: 4:10 AM. COMPARISON: 04/25/2019. FINDINGS: The heart is enlarged but stable. There has been some improved aeration to the right base since yesterday. There continues to be some mild central congestion but no overt failure. No effusion or pneumothorax is seen. IMPRESSION: Cardiomegaly and central congestion. There has been improved aeration when compared with yesterday's exam. Dictated by: Dictated on workstation # [id number]
[2019-04-26] MEDS: IRON SUCROSE 200 MG/10 ML (VENOFER) VIAL IV SCH (09:19)
[2019-04-26] MEDS: SENNA W/DOCUSATE (SENOKOT S) TABLET PO SCH ×2 (09:23→21:35)
[2019-04-26] MEDS: meTOprolol SUCCINATE 100 MG (TOPROL XL) TAB PO SCH (09:23)
[2019-04-26] MEDS: DIGOXIN 0.25 MG (LANOXIN) TAB PO SCH (09:23)
[2019-04-26] MEDS: GABAPENTIN 300 MG (NEURONTIN) CAP PO SCH ×2 (09:23→21:35)
[2019-04-26] MEDS: DILTIAZEM 180 MG (CARDIZEM CD) CAP PO SCH (09:23)
[2019-04-26] MEDS: APIXABAN 5 MG (ELIQUIS) TABLET PO SCH ×2 (09:23→21:35)
[2019-04-26] MEDS: fluCOnazole (DIFLUCAN) 100 MG TAB PO SCH (09:23)
[2019-04-26] MEDS: POLYETHYLENE GLYCOL 17 GM (MIRALAX) PACK PO SCH ×2 (09:25→21:37)
--- NOTE | 2019-04-26 09:34 | Cardiology Progress Note ---
Subjective Date Seen by Provider: Apr 26, 2019 Time Seen by Provider: 09:00 Subjective/Events-last exam Patient sitting up in bed, complaining of some mouth pain, denies any chest pain or dyspnea. Review of Systems General: No Chills, No Night Sweats; Fatigue, Malaise; No Appetite, No Other HEENT: No Head Aches, No Visual Changes, No Eye Pain, No Ear Pain, No Dyspha angel, No Sinus Congestion, No Post Nasal Drip, No Sore Throat, No Other Pulmonary: Dyspnea; No Cough, No Pleuritic Chest Pain, No Other Cardiovascular: Edema; No: Chest Pain, Palpitations, Orthopnea, Paroxysmal Noc. Dyspnea, Lt Headedness, Other Objective-Cardiology Exam Last Set of Vital Signs Vital Signs 04/26/19 04/26/19 08:00 10:11 Temp 98.4 Pulse 93 Resp 18 B/P (MAP) 128/72 (90) Pulse Ox 92 O2 Delivery Nasal Cannula O2 Flow Rate 3.00 FiO2 30 Capillary Refill : Less Than 3 Seconds I&O Intake and Output 04/25/19 23:59 Intake Total 1730 ml Output Total 4950 ml Balance -3220 ml Intake Oral 1610 ml IV Total 120 ml Output Urine Total 4950 ml # Bowel Movements 3 General: Alert, Oriented X3, Cooperative, Mild Distress HEENT: Atraumatic, PERRLA Neck: Supple Lungs: Normal Air Movement, Other (bilateral rhonchi) Heart: Regular Rate, Normal S1, Normal S2, No Murmurs Abdomen: Normal Bowel Sounds, Soft, No Tenderness, No Masses Extremities: Other (2+ pitting edema R>L) Skin: Other (cellulitis on the right leg with blister) Neuro: Normal Speech, Sensation Intact Results Lab Laboratory Tests 04/26/19 05:15 A/P-Cardiology Admission Diagnosis Acute atrial fibrillation/flutter Acute respiratory failure Sepsis Hypertension Assessment/Plan Paroxysmal atrial fibrillation, underwent LIZETH with cardioversion on May 02, 2019, currently in sinus rhythm, rate is controlled. Continue current medication and continue to monitor Chronic anticoagulation for history of DVT, maintained on Eliquis 5 mg twice daily. Sepsis, probably secondary to cellulitis, there is a blister on the right leg with extensive cellulitis, does not appear to be ischemic in nature, had abnormal TIANNA, arterial ultrasound did not show significant obstructive disease. Dr. Field was consulted. Acute respiratory failure, history of COPD, obesity hypoventilation syndrome. Improving. Has been managed by Dr. Patel, continue on Lasix and monitor Anemia, slow drop in H&H, patient refused blood transfusion, started on Arinesp, managed by Dr. Almazan History of Deep venous thrombosis, noted on February 19, 2019 after emergency room visit for chest pain and shortness of breath, continue on Eliquis History of CVA, left-sided paralysis, continue on aspirin with Eliquis. Continue to monitor History of renal failure, chronic kidney disease stage 3-4, seen Dr. Branham in the past.. Continue to monitor Nonobstructive coronary artery disease per cardiac catheterization January 2012, continue to monitor Echocardiogram done on February 19, 2019 showing normal left ventricular size and systolic function, ejection fraction 55-65 percent, left atrial dilatation, PA pressure of 20 mmHg. Continue to monitor Hypertension-controlled. Continue monitor blood pressure/heart rate Hyperlipidemia, continue to monitor lipids Obesity Depression Clinical Quality Measures DVT/VTE Risk/Contraindication: Risk Factor Score Per Nursin RFS Level Per Nursing on Admit: 4+=Very High Supervisory-Addendum Brief Supervisory Addendum Participated in pt care: history, MDM, physical Personally performed: exam, history, MDM Care discussed with: SRAVANTHI Notes: patient was seen and evaluated with Gris, she is feeling better. Sitting up, receiving therapy. He'll in sinus rhythm on examination heart is regular, had bilateral rhonchi. Receiving antibiotics. I will continue with current treatment, monitor H&H, monitor blood pressure. Continue with physical therapy GRIS WRIGHT Apr 26, 2019 09:34 FARAZ ALCALA MD Apr 26, 2019 10:56
--- NOTE | 2019-04-26 09:56 | Pulmonary Progress Note ---
Subjective Time Seen by a Provider: 09:56 Sepsis Event Evaluation Height, Weight, BMI Height: 5'6.00" Weight: 263lbs. 0.0oz. 119.633095bs; 43.6 BMI Method:Stated Exam Exam Vital Signs Date Time Temp Pulse Resp B/P (MAP) Pulse Ox O2 Delivery O2 Flow Rate FiO2 04/26/19 07:00 90 04/26/19 06:24 93 Nasal Cannula 3.00 04/26/19 06:14 91 Nasal Cannula 3.00 04/26/19 04:34 99.3 94 20 144/75 (98) 93 High Flow N/C 3.00 04/26/19 02:30 90 Nasal Cannula 3.00 04/26/19 01:00 86 04/25/19 23:33 99.4 94 20 181/74 (109) 94 High Flow N/C 3.00 04/25/19 22:26 90 Nasal Cannula 3.00 04/25/19 20:10 92 Nasal Cannula 4.00 04/25/19 20:00 92 Nasal Cannula 3.00 60 04/25/19 19:47 98.8 94 22 151/71 (97) 95 High Flow N/C 3.00 04/25/19 19:00 91 04/25/19 16:00 98.2 87 22 142/70 (94) 97 High Flow N/C 3.00 04/25/19 14:00 93 Nasal Cannula 4.00 04/25/19 13:00 79 04/25/19 12:00 98.0 82 18 136/61 (86) 93 Nasal Cannula 3.00 I & O 04/26/19 06:59 Intake Total 1560 ml Output Total 5150 ml Balance -3590 ml Height & Weight Height: 5'6.00" Weight: 263lbs. 0.0oz. 119.191565sw; 43.6 BMI Method:Stated General Appearance: No Apparent Distress, WD/WN, Chronically ill, Obese HEENT: Normal ENT Inspection Neck: Normal Inspection Respiratory: Chest Non Tender, Lungs Clear, No Accessory Muscle Use, No Respiratory Distress, Decreased Breath Sounds Cardiovascular: Regular Rate, Rhythm, No Edema, No Gallop, No JVD, No Murmur, Normal Peripheral Pulses Capillary Refill: Less Than 3 Seconds Gastrointestinal: normal bowel sounds, non tender, soft Extremity: Normal Capillary Refill, Pedal Edema Neurologic/Psychiatric: Alert, Disoriented Skin: Normal Color, Warm/Dry Lymphatic: No Adenopathy Results Lab Laboratory Tests 04/25/19 03:01 04/26/19 05:15 Assessment/Plan Assessment/Plan Acute respiratory failure - improving -BiPAP QHS and PRN - Pt is now on 3 liter NC -Oxygen -SVNs Pneumonia -Zosyn started 04/19 -Hawkins culture -MRSA nasal swab - is negative Afib/flutter -Cardiology following Anemia -Monitor Cellulitis with sepsis -Wound care is following Acute renal failure -Worsening Cr -D/C NSAIDS Anemia -Monitor Acute sepsis with UTI -Zosyn and diflucan morbid obesity Hx of DVT -Chronic anticoagulation HX of CVA with residual left sided paralysis AMNA WRIGHT DO Apr 26, 2019 09:56
[2019-04-26] MEDS: NS IV 1000 ML 1,000 ML IV SCH (10:39)
--- NOTE | 2019-04-26 11:08 | Occupational Ther Daily Note ---
OT Current Status-Daily Note Subjective pt laying in bed upon OT/ PT arrival. pt c/o no pain. session with focus on bed mobility, ADLs and seated balance Mental Status/Objective Therapy Code Descriptions/Definitions Functional [place] Measure: 0=Not Assessed/NA 4=Minimal Assistance 1=Total Assistance 5=Supervision or Setup 2=Maximal Assistance 6=Modified [place] 3=Moderate Assistance 7=Complete [place] ADL-Treatment Grooming (FIM): 4 (pt required MAX A - TA to maintain static seated balance EOB while washing face) Transfers (B, C, W/C) (FIM): 1 (X2 person asssit. supine to sit only. ) PT/ OT co treatment secondary of complexity of pt deficits requiring skilled of both disciplines that a regional rehabilitation director could not complete. OT with focus on ADL task, sequencing, UE positioning, and cuing while PT focus on gross movement, LE positioning, and seated balance. pt perform supine to sit with TA X 2 person assist. pt sat EOB for approx 10 minutes ranging from MAX A to TA to maintain seated balance. pt perform grooming while seated along with LE ex. pt required TA to perform sit to supine. pt laying in bed. noted decrease activity tolerance and SOB with task. post OT Session, call light, phone, and tray within reach, all needs met. NSG aware of pt position. would recommend Griselda lift for functional transfers. Education OT Patient Education: Progress toward Goal/Update tx plan, Purpose of tx/functional activities, Safety issues, Transfer techniques Teaching Recipient: Patient Teaching Methods: Demonstration, Discussion Response to Teaching: Verbalize Understanding, Return Demonstration OT Short Term Goals Short Term Goals Grooming(FIM): 4 1=Demonstrate adherence to instructed precautions during ADL tasks. 2=Patient will verbalize/demonstrate understanding of assistive devices/modifications for ADL. 3=Patient will improve strength/tolerance for activity to enable patient to perform ADL's. OT Steel Plate Printer Goals Residential Goals Grooming(FIM): 5 Additional Goals: 1-Demonstrate ADL Tasks, 2-Verbalize Understanding, 3- ImproveStrength/Vick 1=Demonstrate adherence to instructed precautions during ADL tasks. 2=Patient will verbalize/demonstrate understanding of assistive devices/modifications for ADL. 3=Patient will improve strength/tolerance for activity to enable patient to perform ADL's. OT Education/Plan Problem List/Assessment Assessment: Decreased Activ Tolerance, Decreased Safety Aware, Decreased UE Strength, Dependent Transfers, Edema, Impaired Bed Mobility, Impaired Cognition, Impaired Coordination, Impaired Funct Balance, Impaired I ADL's, Impaired Self- Care Skills, Restricted Funct UE ROM Discharge Recommendations Plan/Recommendations: Continue POC Therapy D/C Recommendations: 24 hr Supervision, Prison (TCU/[facility]) Treatment Plan/Plan of Care Treatment,Training & Education: Yes Patient would benefit from OT for education, treatment and training to promote independence in ADL's, mobility, safety and/or upper extremity function for ADL's. Plan of Care: ADL Retraining, Functional Mobility, Group Exercise/Act as Ind, UE Funct Exercise/Act Treatment Duration: May 02, 2019 Frequency: 5 times per week Estimated Hrs Per Day: .25 hour per day Agreement: Yes Rehab Potential: Guarded Time/GCodes Start Time: 10:35 Stop Time: 11:00 Billed Treatment Time co treatment with PT 25 minutes FA 25 minutes, 2 units MATTHEW COLON OT Apr 26, 2019 11:08
--- NOTE | 2019-04-26 11:18 | Physical Therapy Daily Note ---
PT Daily Note-Current Subjective Patient in bed pre tx, agrees to PT, has mouth pain, will be co-treating with OT due to poor patient mobility, strength, endurance, balance, trunk control, the need to coordinate UE and LE during activity. Appearance Patient in bed post tx with nurse call, phone, tray, all needs met. Mental Status Patient Orientation: Person, Place, Situation Attachments: Oxygen, Aguiar Catheter, IV Transfers Therapy Code Descriptions/Definitions Functional [place] Measure: 0=Not Assessed/NA 4=Minimal Assistance 1=Total Assistance 5=Supervision or Setup 2=Maximal Assistance 6=Modified [place] 3=Moderate Assistance 7=Complete [place] Therapy Quality Codes: 6 Independent with activity with or without an assistive device 5 Patient requires set up or clean up by helper. Patient completes activity by themselves 4 Supervision or touching assist (CGA). [place] provide cues , steadying assist 3 The helper provides less than half the effort to complete the activity 2 The helper provides more than half the effort to complete the activity 1 Dependent. The helper does all the effort to complete an activity 7 Patient refused to complete or attempt activity 9 The patient did not perform the activity before the current illness or injury 88 Not attempted due to Medical conditions or safety concerns Transfers (B, C, W/C) (FIM): 1 Scootin Rollin Supine to/from Sit: 1 Dependent with assist of 2 therapists, she sat at the edge of the bed for about 10', performed LE exercise. Patient needs max assist most of the time to maintain sitting balance but occasionally is able to assist for a short time and it is only about min assist. Exercises Seated Therapy Exercises: Ankle pumps, Long arc quads Seated Reps: 15 Treatments bed mobility, supine <-> sit, LE exercise Assessment Current Status: Poor Progress dependent for bed mobility and transfers PT Occupational Health Technician Goals Occupational Health Technician Goals PT Longterm Goals Time Frame: May 06, 2019 Transfers (B,C,W/C) (FIM): 2 PT Plan Problem List Problem List: Activity Tolerance, Functional Strength, Safety, Balance, Gait, Transfer, Bed Mobility, ROM Treatment/Plan Treatment Plan: Continue Plan of Care Treatment Plan: Bed Mobility, Education, Functional Activity Vick, Functional Strength, Safety, Therapeutic Exercise, Transfers Treatment Duration: May 06, 2019 Frequency: 5 times per week Estimated Hrs Per Day: .25 hour per day Patient and/or Family Agrees t: Yes Safety Risks/Education Patient Education: Correct Positioning, Safety Issues Teaching Recipient: Patient Teaching Methods: Demonstration, Discussion Response to Teaching: Reinforcement Needed Time/GCodes Time In: 1035 Time Out: 1100 Total Billed Treatment Time: 25 Total Billed Treatment 1 visit FA 25' Co-treated for the whole '. PT worked on bed mobility and supine <-> sit, LE exercise, sitting balance, OT worked on bed mobility, supine <-> sit, UE positioning and assist with sitting balance. PARK OCASIO PT Apr 26, 2019 11:18
--- NOTE | 2019-04-26 11:21 | Progress Note - Hospitalist ---
NOEMY TARIQ, 04/26/19 1121: Subjective HPI/CC On Admission Date Seen by Provider: Apr 26, 2019 Time Seen by Provider: 08:20 Subjective/Events-last exam Pt is alert and responsive to questions Bowels are moving fine Not ambulating at all and is on bedrest Failed PT/OT activities 04/25 Pain right leg /10 On apixaban so decreased suspicion for DVT Swelling bilateral lower extremities but not more than unusual Ruptured blister right lower extremity with wound care Vitals stable Hg 7.3 Cr 2.16 Clear bilaterally on auscultation RRR, no murmurs Discharge to [facility] planned for 04/27 Objective Exam Vital Signs Vital Signs Date Time Temp Pulse Resp B/P (MAP) Pulse Ox O2 Delivery O2 Flow Rate FiO2 04/26/19 12:31 90 04/26/19 10:11 92 Nasal Cannula 3.00 04/26/19 08:00 30 04/26/19 08:00 98.4 18 128/72 (90) Capillary Refill : Less Than 3 Seconds General Appearance: Chronically ill, Mild Distress Respiratory: Lungs Clear Cardiovascular: Regular Rate, Rhythm Extremity: Pedal Edema, Swelling Neurologic/Psychiatric: Alert, Oriented x3 Results/Procedures Lab Laboratory Tests 04/26/19 05:15 Patient resulted labs reviewed. Imaging: Reviewed Imaging Films Assessment/Plan Assessment and Plan Assess & Plan/Chief Complaint Assessment: 1. Congestive heart failure secondary to A. fib with RVR 2. Acute respiratory insufficiency secondary to number 1 3. Acute on chronic renal failure possibly secondary to intravascular volume depletion versus from diabetes 4. Iron deficient anemia on replacement 5. History of previous CVA with left sided hemiparesis 6. Type II diabetes on insulin 7. Sepsis on Zosyn-resolving 8. Cellulitis right lower leg with blister formation will need wound care consult 9. Possible oral thrush on Diflucan Plan 1. Cardioversion and continuing care with Dr. Calderon 2. Continue antibiotic 3. Wound care for ruptured blister 4. Order PT/OT treatments to get pt moving 5. Return to [facility] 04/27 Diagnosis/Problems Diagnosis/Problems (1) UTI (urinary tract infection) Status: Acute Qualifiers: Qualified Codes: N30.00 - Acute cystitis without hematuria (2) Acute sepsis Status: Acute (3) History of CVA (cerebrovascular accident) Status: Chronic (4) Cellulitis of leg without foot, right Status: Acute (5) Urinary tract infection Status: Acute Qualifiers: Qualified Codes: N30.01 - Acute cystitis with hematuria (6) Depression Status: Chronic Qualifiers: Qualified Codes: F32.9 - Major depressive disorder, single episode, unspecified (7) Normocytic anemia Status: Chronic (8) Sepsis Status: Acute Qualifiers: Qualified Codes: A41.9 - Sepsis, unspecified organism (9) ANKIT (obstructive sleep apnea) Status: Chronic (10) BMI 40.0-44.9, adult Status: Chronic (11) DVT prophylaxis Status: Acute (12) Insulin dependent diabetes mellitus with complications Status: Chronic (13) Respiratory failure Status: Acute Qualifiers: Qualified Codes: J96.00 - Acute respiratory failure, unspecified whether with hypoxia or hypercapnia (14) REFLUX (15) Encounter for screening colonoscopy (16) At risk for deep venous thrombosis Status: Acute (17) Bedbound Status: Chronic Clinical Quality Measures DVT/VTE Risk/Contraindication: Risk Factor Score Per Nursin RFS Level Per Nursing on Admit: 4+=Very High FADUMO RUSH DO 04/26/192030: Subjective Subjective/Events-last exam Pt would like some pain medication for the right leg. Bollus pemphigoid blister spontaneously burst, no erythema. Likely will go back to the senior living tomorrow. Does not wear home oxygen usually. Hgb 7.3. Creatinine 2.1 today. Bowels are moving. PT and OT working with Pt but she is bed-ridden. Improved SOB. Spoke with Dr. Patel. Review of Systems General: Fatigue Pulmonary: Dyspnea Musculoskeletal: leg pain Objective Exam General Appearance: No Apparent Distress, WD/WN, Chronically ill, Obese Respiratory: Chest Non Tender, Lungs Clear, No Accessory Muscle Use, No Respiratory Distress, Decreased Breath Sounds Cardiovascular: Regular Rate, Rhythm Extremity: Pedal Edema Neurologic/Psychiatric: Alert, Oriented x3 Assessment/Plan Assessment and Plan Assess & Plan/Chief Complaint Poor manager long term care prognosis [facility] at [facility] Diagnosis/Problems Diagnosis/Problems (1) Respiratory failure Status: Acute Qualifiers: Qualified Codes: J96.00 - Acute respiratory failure, unspecified whether with hypoxia or hypercapnia (2) Normocytic anemia Status: Chronic (3) ANKIT (obstructive sleep apnea) Status: Chronic (4) BMI 40.0-44.9, adult Status: Chronic (5) Insulin dependent diabetes mellitus with complications Status: Chronic (6) Bedbound Status: Chronic (7) REFLUX (8) History of CVA (cerebrovascular accident) Status: Chronic Supervisory-Addendum Brief Verification & Attestation Participated in pt care: history, MDM, physical Personally performed: exam, history, MDM, supervision of care Care discussed with: Medical Student Procedures: n/a Results interpretation: Verified all documentation Verification and Attestation of Medical Student E/M Service A medical student performed and documented this service in my presence. I reviewed and verified all information documented by the medical student and made modifications to such information, when appropriate. I personally performed the physical exam and medical decision making. Fadumo Rush, Apr 26, 2019,20:30 NOEMY TARIQ, Apr 26, 2019 11:21 FADUMO RUSH DO Apr 26, 2019 20:31
[2019-04-26 12:00] VITALS: BP 126/67
[2019-04-26] MEDS: DARBEPOETIN 25 MCG/ML (ARANESP) 1 ML HOSPITAL SC SCH (13:03)
--- NOTE | 2019-04-26 13:41 | NUR ---
CM/SS. Physician plans patient's discharge tomorrow, return to [facility] skilled services. Updated SS/Maricruz of plan.
[2019-04-26 15:45] VITALS: BP 149/75
--- NOTE | 2019-04-26 16:08 | Progress Note ---
Standard Progress Note Progress Notes/Assess & Plan Date Seen by a Provider: Apr 26, 2019 Time Seen by a Provider: 16:00 Progress/Assessment & Plan 68-year-old female with right lower extremity cellulitis and on IV antibiotics. Developed atrial fibrillation with rapid ventricular response and on chronic anticoagulation. Has acute on chronic renal failure and anemia of chronic disease. Fecal occult blood test positive indicating some GI blood loss. Status post cardioversion and in sinus rhythm now. Patient was started on Aranesp 20 g daily because of anemia of chronic disease secondary to chronic kidney disease stage IV. She is a Bahai and refuses blood products. She is fatigued and denied any new problems. Hemoglobin stable at 7.3 today and GFR 23. Continue Aranesp. Stop anticoagulation when okay with cardiology as soon as possible. Continue management of right lower extremity cellulitis as per wound care. If patient is being discharged, she needs to continue all Aranesp at least weekly on an outpatient basis with the weekly lab work monitored. POLO SAVAGE Apr 26, 2019 16:08
[2019-04-26] MEDS: PANTOPRAZOLE 40 MG (PROTONIX) TAB PO SCH (16:17)
[2019-04-26 20:00] VITALS: BP 150/76
[2019-04-26] MEDS: ATORVASTATIN 40 MG (LIPITOR) TABLET PO SCH (21:35)
[2019-04-27] VITALS: BP 162/77
[2019-04-27] MEDS: NYSTATIN ORAL SUSP 5 ML UDC PO SCH ×4 (00:17→16:42)
[2019-04-27] MEDS: RT-ALBUTEROL/IPRATROPIUM 3 ML (DUONEB) VIAL INH SCH ×5 (01:28→22:04)
[2019-04-27 04:36] VITALS: BP 131/71
--- NOTE | 2019-04-27 05:08 | NUR ---
ICU CALLED AND INFORMED PT CONVERTED TO AFIB. HR 110-130'S. EKG DONE. PT IN AFIB CONFIRMED BY EKG. DR ALCALA NOTIFIED AND NEW ORDER RECEIVED.
[2019-04-27] MEDS ORDERED: meTOprolol 5 MG/5 ML (LOPRESSOR) VIAL IV ONE (05:15)
[2019-04-27 05:16] LABS: BASOPHILS % (AUTO) 0 % (0-10); EOSINOPHILS # (AUTO) 0.3 10^3/uL (0.0-0.3); EOSINOPHILS % (AUTO) 3 % (0-10); HEMATOCRIT 27 % (35-52); HEMOGLOBIN 7.9 G/DL (11.5-16.0); LYMPHOCYTES # (AUTO) 1.3 X 10^3 (1.0-4.0); LYMPHOCYTES % (AUTO) 11 % (12-44); MEAN CORPUSCULAR HEMOGLOBIN 26 PG (25-34); MEAN CORPUSCULAR HGB CONC 29 G/DL (32-36); MEAN CORPUSCULAR VOLUME 88 FL (80-99); MEAN PLATELET VOLUME 9.3 FL (7.4-10.4); MONOCYTES # (AUTO) 0.8 X 10^3 (0.0-1.0); MONOCYTES % (AUTO) 7 % (0-12); NEUTROPHILS % (AUTO) 79 % (42-75); PLATELET COUNT 412 10^3/uL (130-400); RED CELL DISTRIBUTION WIDTH 17.4 % (10.0-14.5); WHITE BLOOD COUNT 11.4 10^3/uL (4.3-11.0)
[2019-04-27 05:46] LABS: CALCIUM 8.9 MG/DL (8.5-10.1); CREATININE SERUM 2.04 MG/DL (0.60-1.30); MAGNESIUM 1.7 MG/DL (1.6-2.4); PHOSPHORUS 3.8 MG/DL (2.3-4.7); POTASSIUM 3.7 MMOL/L (3.6-5.0)
[2019-04-27] MEDS: inSUlin ASPART (NovoLOG) 1 UNIT/0.01 ML (CHARGE PER UNIT) SQ SCH ×4 (06:08→21:40)
[2019-04-27] MEDS: FUROSEMIDE 40 MG/4 ML INJ (LASIX) IVP SCH ×2 (06:08→16:41)
[2019-04-27] MEDS: SUCRALFATE 1 GM (CARAFATE) TAB PO SCH ×4 (06:08→20:38)
--- NOTE | 2019-04-27 07:00 | Diagnostic Imaging Report ---
INDICATION: Shortness of breath Portable chest 3:34 AM There is cardiomegaly. Pulmonary vascularity is normal. Lungs are clear. IMPRESSION: Cardiomegaly without evidence of pulmonary venous hypertension Dictated by: Dictated on workstation # [id number]
--- NOTE | 2019-04-27 07:13 | Cardiology Progress Note ---
Subjective Date Seen by Provider: Apr 27, 2019 Time Seen by Provider: 07:11 Subjective/Events-last exam patient is laying down in bed, still having shortness of breath, went back to atrial fibrillation early this morning. Review of Systems General: No Chills, No Night Sweats; Fatigue, Malaise; No Appetite, No Other HEENT: No Head Aches, No Visual Changes, No Eye Pain, No Ear Pain, No Dysphasia, No Sinus Congestion, No Post Nasal Drip, No Sore Throat, No Other Pulmonary: Dyspnea; No Cough, No Pleuritic Chest Pain, No Other Cardiovascular: Edema; No: Chest Pain, Palpitations, Orthopnea, Paroxysmal Noc. Dyspnea, Lt Headedness, Other Objective-Cardiology Exam Last Set of Vital Signs Vital Signs 04/26/19 04/27/19 08:00 06:22 Pulse Ox 91 O2 Delivery High Flow N/C O2 Flow Rate 3.00 FiO2 30 Capillary Refill : Less Than 3 Seconds I&O Intake and Output 04/27/19 00:00 Intake Total 1620 ml Output Total 3650 ml Balance -2030 ml Intake Oral 1620 ml Output Urine Total 3650 ml # Bowel Movements 2 General: Alert, Oriented X3, Cooperative, Mild Distress HEENT: Atraumatic, PERRLA Neck: Supple Lungs: Normal Air Movement, Other (bilateral rhonchi) Heart: Normal S1, Normal S2, No Murmurs, Other (atrial fibrillation was rapid ventricular response) Abdomen: Normal Bowel Sounds, Soft, No Tenderness, No Masses Extremities: Other (2+ pitting edema R>L) Skin: Other (cellulitis on the right leg with blister) Neuro: Normal Speech, Sensation Intact Results Lab Laboratory Tests 04/27/19 04:21 A/P-Cardiology Admission Diagnosis Acute atrial fibrillation/flutter Acute respiratory failure Sepsis Hypertension Assessment/Plan Paroxysmal atrial fibrillation, underwent LIZETH with cardioversion on April 24, 2019, went back to atrial fibrillation was rapid ventricular response this morning, I will start on Multaq and Cardizem and monitor heart rate, planning for cardioversion tomorrow morning if she did not convert on her own. Chronic anticoagulation for history of DVT, maintained on Eliquis 5 mg twice daily. Sepsis, probably secondary to cellulitis, there is a blister on the right leg with extensive cellulitis, does not appear to be ischemic in nature, had abnormal TIANNA, arterial ultrasound did not show significant obstructive disease. Dr. Field was consulted. Status post respiratory failure, history of COPD, obesity hypoventilation syndrome. Improving. Has been managed by Dr. Patel, continue on Lasix and monitor Anemia, slow drop in H&H, patient refused blood transfusion, started on Arinesp, managed by Dr. Almazan History of Deep venous thrombosis, noted on February 19, 2019 after emergency room visit for chest pain and shortness of breath, continue on Eliquis History of CVA, left-sided paralysis, continue on aspirin with Eliquis. Continue to monitor History of renal failure, chronic kidney disease stage 3-4, seen Dr. Branham in the past.. Continue to monitor Nonobstructive coronary artery disease per cardiac catheterization January 2012, continue to monitor Echocardiogram done on February 19, 2019 showing normal left ventricular size and systolic function, ejection fraction 55-65 percent, left atrial dilatation, PA pressure of 20 mmHg. Continue to monitor Hypertension-controlled. Continue monitor blood pressure/heart rate Hyperlipidemia, continue to monitor lipids Obesity Depression Clinical Quality Measures DVT/VTE Risk/Contraindication: Risk Factor Score Per Nursin RFS Level Per Nursing on Admit: 4+=Very High FARAZ ALCALA MD Apr 27, 2019 07:13
[2019-04-27 07:36] VITALS: BP 137/65
[2019-04-27] MEDS: APIXABAN 5 MG (ELIQUIS) TABLET PO SCH ×2 (07:58→20:38)
[2019-04-27] MEDS: DILTIAZEM 30 MG (CARDIZEM) TAB PO SCH ×3 (07:58→18:56)
[2019-04-27] MEDS: fluCOnazole (DIFLUCAN) 100 MG TAB PO SCH (07:58)
[2019-04-27] MEDS: DILTIAZEM 180 MG (CARDIZEM CD) CAP PO SCH (07:58)
[2019-04-27] MEDS: GABAPENTIN 300 MG (NEURONTIN) CAP PO SCH ×2 (07:59→20:38)
[2019-04-27] MEDS: meTOprolol SUCCINATE 100 MG (TOPROL XL) TAB PO SCH (07:59)
[2019-04-27] MEDS: SENNA W/DOCUSATE (SENOKOT S) TABLET PO SCH ×2 (07:59→21:09)
[2019-04-27] MEDS: DRONEDARONE TABLET 400 MG TABLET PO SCH ×2 (07:59→20:38)
[2019-04-27] MEDS: POLYETHYLENE GLYCOL 17 GM (MIRALAX) PACK PO SCH ×2 (08:00→21:08)
[2019-04-27] MEDS: DIGOXIN 0.25 MG (LANOXIN) TAB PO SCH (08:01)
[2019-04-27] MEDS: NS IV 1000 ML 1,000 ML IV SCH (08:07)
--- NOTE | 2019-04-27 10:17 | NUR ---
CM/SS, updated [facility] that patient will not discharge today, continuing intermittent review of patient status for medical stability.
--- NOTE | 2019-04-27 10:26 | Progress Note - Hospitalist ---
JESSYJohnNOEMY JOLLEY, 04/27/19 1026: Subjective HPI/CC On Admission Date Seen by Provider: Apr 27, 2019 Time Seen by Provider: 07:25 Subjective/Events-last exam Short answers and not very interactive BM yesterday Denies pain Denies n/v Reverted to a fib early 04/27 Heart: tachycardic on exam Lungs: clear on auscultation bilaterally Vitals are stable Started on Dronedarone 400mg BID and Diltiazem 30mg Q6H Will cardiovert 04/28 if meds do not work Hg stable 7.9 Glucometer 125 No home O2 eval done yesterday Objective Exam Vital Signs Vital Signs Date Time Temp Pulse Resp B/P (MAP) Pulse Ox O2 Delivery O2 Flow Rate FiO2 04/27/19 10:00 92 High Flow N/C 3.00 04/27/19 07:36 98.5 110 18 137/65 (89) 04/26/19 08:00 30 Capillary Refill : Less Than 3 Seconds General Appearance: No Apparent Distress Respiratory: Lungs Clear Cardiovascular: Tachycardia Results/Procedures Lab Laboratory Tests 04/27/19 04:21 Patient resulted labs reviewed. Imaging: Reviewed Imaging Films Assessment/Plan Assessment and Plan Assess & Plan/Chief Complaint Assessment: 1. Congestive heart failure secondary to A. fib with RVR 2. Acute respiratory insufficiency secondary to number 1 3. Acute on chronic renal failure possibly secondary to intravascular volume depletion versus from diabetes 4. Iron deficient anemia on replacement 5. History of previous CVA with left sided hemiparesis 6. Type II diabetes on insulin 7. Sepsis on Zosyn-resolving 8. Cellulitis right lower leg with blister formation will need wound care consult 9. Possible oral thrush on Diflucan Plan 1. Repeat cardioversion and continuing care with Dr. Calderon 2. Continue antibiotic 3. Wound care for ruptured blister 4. Order PT/OT treatments to get pt moving 5. Discharge to [facility] once heart rhythm is stable Diagnosis/Problems Diagnosis/Problems (1) UTI (urinary tract infection) Status: Acute Qualifiers: Qualified Codes: N30.00 - Acute cystitis without hematuria (2) Acute sepsis Status: Acute (3) History of CVA (cerebrovascular accident) Status: Chronic (4) Cellulitis of leg without foot, right Status: Acute (5) Urinary tract infection Status: Acute Qualifiers: Qualified Codes: N30.01 - Acute cystitis with hematuria (6) Depression Status: Chronic Qualifiers: Qualified Codes: F32.9 - Major depressive disorder, single episode, unspe cified (7) Normocytic anemia Status: Chronic (8) Sepsis Status: Acute Qualifiers: Qualified Codes: A41.9 - Sepsis, unspecified organism (9) ANKIT (obstructive sleep apnea) Status: Chronic (10) BMI 40.0-44.9, adult Status: Chronic (11) DVT prophylaxis Status: Acute (12) Insulin dependent diabetes mellitus with complications Status: Chronic (13) Respiratory failure Status: Acute Qualifiers: Qualified Codes: J96.00 - Acute respiratory failure, unspecified whether with hypoxia or hypercapnia (14) REFLUX (15) Encounter for screening colonoscopy (16) At risk for deep venous thrombosis Status: Acute (17) Bedbound Status: Chronic Clinical Quality Measures DVT/VTE Risk/Contraindication: Risk Factor Score Per Nursin RFS Level Per Nursing on Admit: 4+=Very High FADUMO RUSH DO 04/27/192058: Subjective Subjective/Events-last exam Pt was to be discharge today but will require another cardioversion due to atrial fibrillation with rapid ventricular response Creatinine has improved at 2.[address] Young hematology consult due to jehovah witness status and refuses blood products hemoglobin stable in the 7 range Bowels are moving Review of Systems General: Fatigue Objective Exam General Appearance: No Apparent Distress, WD/WN, Chronically ill, Obese Respiratory: Chest Non Tender, Lungs Clear, No Accessory Muscle Use, No Respiratory Distress, Decreased Breath Sounds Cardiovascular: Irregularly Irregular, Tachycardia Neurologic/Psychiatric: Alert, Oriented x3, No Motor/Sensory Deficits, Normal Mood/Affect Assessment/Plan Assessment and Plan Assess & Plan/Chief Complaint Cardioversion Monitor labs Prognosis guarded Bedridden state 7 years Diagnosis/Problems Diagnosis/Problems (1) Atrial fibrillation with rapid ventricular response (2) Refusal of blood transfusions as patient is [place] (3) ANKIT (obstructive sleep apnea) Status: Chronic (4) Insulin dependent diabetes mellitus with complications Status: Chronic (5) Bedbound Status: Chronic (6) History of CVA (cerebrovascular accident) Status: Chronic (7) Normocytic anemia Status: Chronic Supervisory-Addendum Brief Verification & Attestation Participated in pt care: history, MDM, physical Personally performed: exam, history, MDM, supervision of care Care discussed with: Medical Student Procedures: n/a Results interpretation: Verified all documentation Verification and Attestation of Medical Student E/M Service A medical student performed and documented this service in my presence. I reviewed and verified all information documented by the medical student and made modifications to such information, when appropriate. I personally performed the physical exam and medical decision making. Fadumo Rush, Apr 27, 2019,20:58 NOEMY TARIQ, Apr 27, 2019 10:26 FADUMO RUSH DO Apr 27, 2019 20:59
[2019-04-27 11:23] VITALS: BP 138/91
--- NOTE | 2019-04-27 11:27 | Pulmonary Progress Note ---
Sepsis Event Evaluation Height, Weight, BMI Height: 5'6.00" Weight: 270lbs. 0.9oz. 122.373040yq; 43.6 BMI Method:Stated Exam Exam Vital Signs Date Time Temp Pulse Resp B/P (MAP) Pulse Ox O2 Delivery O2 Flow Rate FiO2 04/27/19 10:00 92 High Flow N/C 3.00 04/27/19 08:45 Nasal Cannula 3.00 04/27/19 07:36 98.5 110 18 137/65 (89) 92 High Flow N/C 3.00 04/27/19 07:00 123 04/27/19 06:22 91 High Flow N/C 3.00 04/27/19 04:36 98.9 86 18 131/71 (91) 95 High Flow N/C 3.00 04/27/19 04:36 131 04/27/19 01:28 92 High Flow N/C 3.00 04/27/19 01:00 85 04/27/19 00:00 99.4 88 20 162/77 (105) 95 High Flow N/C 3.00 04/26/19 21:32 90 High Flow N/C 3.00 04/26/19 20:00 Nasal Cannula 3.00 04/26/19 20:00 99.0 81 22 150/76 (100) 95 High Flow N/C 3.00 04/26/19 19:00 79 04/26/19 18:54 Nasal Cannula 3.00 04/26/19 18:54 90 Nasal Cannula 2.00 04/26/19 15:45 98.8 80 20 149/75 (99) 93 High Flow N/C 3.00 04/26/19 14:29 94 Nasal Cannula 3.00 04/26/19 12:31 90 04/26/19 12:00 98.7 89 18 126/67 (86) 95 High Flow N/C 3.00 I & O 04/27/19 07:00 Intake Total 1620 ml Output Total 3450 ml Balance -1830 ml Height & Weight Height: 5'6.00" Weight: 270lbs. 0.9oz. 122.141629ea; 43.6 BMI Method:Stated General Appearance: No Apparent Distress HEENT: Normal ENT Inspection Neck: Normal Inspection Respiratory: Lungs Clear Cardiovascular: Tachycardia Capillary Refill: Less Than 3 Seconds Gastrointestinal: normal bowel sounds, non tender, soft Extremity: Pedal Edema Neurologic/Psychiatric: Alert, Oriented x3 Skin: Normal Color, Warm/Dry Lymphatic: No Adenopathy Results Lab Laboratory Tests 04/26/19 05:15 04/27/19 04:21 Assessment/Plan Assessment/Plan Acute respiratory failure - improving -BiPAP QHS and PRN - Pt is now on 3 liter NC -Oxygen -SVNs Pneumonia -Zosyn started 04/19 -Hawkins culture -MRSA nasal swab - is negative Afib/flutter -Cardiology following Anemia -Monitor Cellulitis with sepsis -Wound care is following Acute renal failure -Worsening Cr -D/C NSAIDS Anemia -Monitor Acute sepsis with UTI -Zosyn and diflucan morbid obesity Hx of DVT -Chronic anticoagulation HX of CVA with residual left sided paralysis AMNA WRIGHT DO Apr 27, 2019 11:27
--- NOTE | 2019-04-27 11:27 | Physical Therapy Daily Note ---
PT Daily Note-Current Subjective Patient agrees to exercises. Mental Status Patient Orientation: Person, Time, Situation Attachments: Oxygen, IV Transfers Therapy Code Descriptions/Definitions Functional [place] Measure: 0=Not Assessed/NA 4=Minimal Assistance 1=Total Assistance 5=Supervision or Setup 2=Maximal Assistance 6=Modified [place] 3=Moderate Assistance 7=Complete [place] Therapy Quality Codes: 6 Independent with activity with or without an assistive device 5 Patient requires set up or clean up by helper. Patient completes activity by themselves 4 Supervision or touching assist (CGA). [place] provide cues , steadying assist 3 The helper provides less than half the effort to complete the activity 2 The helper provides more than half the effort to complete the activity 1 Dependent. The helper does all the effort to complete an activity 7 Patient refused to complete or attempt activity 9 The patient did not perform the activity before the current illness or injury 88 Not attempted due to Medical conditions or safety concerns Exercises Supine Ex: Ankle pumps, Heel Slides, Straight leg raise, Hip abd/add Supine Reps: 12 (2 sets right LE AROM; left LE PROM) Assessment Patient is in A-fib per report. Patient had increase SOA with minimal activity. OT in for treatment. PT Ammunition Components Inspector Goals Chcf Goals PT Ammunition Components Inspector Goals Time Frame: May 06, 2019 Transfers (B,C,W/C) (FIM): 2 PT Plan Treatment/Plan Treatment Plan: Continue Plan of Care Treatment Plan: Bed Mobility, Education, Functional Activity Vick, Functional Strength, Safety, Therapeutic Exercise, Transfers Treatment Duration: May 06, 2019 Frequency: 5 times per week Estimated Hrs Per Day: .25 hour per day Patient and/or Family Agrees t: Yes Time/GCodes Time In: 1111 Time Out: 1120 Total Billed Treatment Time: 9 Total Billed Treatment 1 visit EX 9 min MICHAEL ADAN PT Apr 27, 2019 11:27
--- NOTE | 2019-04-27 11:50 | Occupational Ther Daily Note ---
OT Current Status-Daily Note Subjective Pt alert, lying in bed. Pt agrees to therapy. Pt in Afib, discussed with nrsg, nrsg okay with bed exercises. Mental Status/Objective Patient Orientation: Person, Place, Time, Situation Therapy Code Descriptions/Definitions Functional [place] Measure: 0=Not Assessed/NA 4=Minimal Assistance 1=Total Assistance 5=Supervision or Setup 2=Maximal Assistance 6=Modified [place] 3=Moderate Assistance 7=Complete [place] ADL-Treatment Pt was able to cut meat with spoon and scoop then bring to mouth. Pt only has use of R UE due to previous CVA leaving L UE flaccid. Pt c/o mouth pain and was not going to eat anymore just drink, but asked if she could have a chocolate milk shake, CARRASCO reported to nrsg. PROM to L UE completed, tone noted throughout arm. After therapy, pt lying in bed with call light/phone in reach. All needs met in room. Eating (FIM): 5 OT Short Term Goals Short Term Goals Grooming(FIM): 4 1=Demonstrate adherence to instructed precautions during ADL tasks. 2=Patient will verbalize/demonstrate understanding of assistive devices/modifications for ADL. 3=Patient will improve strength/tolerance for activity to enable patient to perform ADL's. OT Fdc Goals Cryptologic Technician Goals Grooming(FIM): 5 Additional Goals: 1-Demonstrate ADL Tasks, 2-Verbalize Understanding, 3-ImproveStrength/Vick 1=Demonstrate adherence to instructed precautions during ADL tasks. 2=Patient will verbalize/demonstrate understanding of assistive devices/modifications for ADL. 3=Patient will improve strength/tolerance for activity to enable patient to perform ADL's. OT Education/Plan Problem List/Assessment Assessment: Impaired Self-Care Skills, Restricted Funct UE ROM Discharge Recommendations Plan/Recommendations: Continue POC Treatment Plan/Plan of Care Patient would benefit from OT for education, treatment and training to promote independence in ADL's, mobility, safety and/or upper extremity function for ADL's. Plan of Care: ADL Retraining, Functional Mobility, Group Exercise/Act as Ind, UE Funct Exercise/Act Treatment Duration: May 02, 2019 Frequency: 5 times per week Estimated Hrs Per Day: .25 hour per day Agreement: Yes Rehab Potential: Guarded Time/GCodes Start Time: 11:30 Stop Time: 11:40 Total Time Billed (hr/min): 10 Billed Treatment Time 1 visit-FA 1 (10 min) JARROD OLIVARES Apr 27, 2019 11:50
[2019-04-27] MEDS: DARBEPOETIN 25 MCG/ML (ARANESP) 1 ML HOSPITAL SC SCH (13:20)
[2019-04-27 16:15] VITALS: BP 120/55
[2019-04-27] MEDS: PANTOPRAZOLE 40 MG (PROTONIX) TAB PO SCH (16:43)
[2019-04-27 19:42] VITALS: BP 140/72
[2019-04-27] MEDS: ACETAMINOPHEN 500 MG TAB (TYLENOL) PO PRN (20:38)
[2019-04-27] MEDS: ATORVASTATIN 40 MG (LIPITOR) TABLET PO SCH (20:38)
[2019-04-27] MEDS: RT-ADVAIR HFA 115/21 MCG PER PUFF IH SCH (22:04)
[2019-04-28] VITALS (8 sets, daily range): BP systolic 119–166; BP diastolic 65–87
[2019-04-28] MEDS: NYSTATIN ORAL SUSP 5 ML UDC PO SCH ×4 (00:52→16:27)
[2019-04-28] MEDS: DILTIAZEM 30 MG (CARDIZEM) TAB PO SCH ×4 (00:52→17:53)
[2019-04-28] MEDS: RT-ALBUTEROL/IPRATROPIUM 3 ML (DUONEB) VIAL INH SCH ×6 (02:22→21:45)
[2019-04-28] MEDS: SUCRALFATE 1 GM (CARAFATE) TAB PO SCH ×4 (06:42→21:06)
[2019-04-28] MEDS: FUROSEMIDE 40 MG/4 ML INJ (LASIX) IVP SCH ×2 (06:53→16:27)
[2019-04-28] MEDS: inSUlin ASPART (NovoLOG) 1 UNIT/0.01 ML (CHARGE PER UNIT) SQ SCH ×4 (06:55→21:00)
[2019-04-28] MEDS: RT-ADVAIR HFA 115/21 MCG PER PUFF IH SCH ×2 (08:04→19:13)
--- NOTE | 2019-04-28 09:21 | Cardiology Progress Note ---
Subjective Date Seen by Provider: Apr 28, 2019 Time Seen by Provider: 09:16 Subjective/Events-last exam Patient is laying down in bed, feeling better, no new complaint. Heart rate is better controlled Review of Systems General: No Chills, No Night Sweats, No Fatigue; Malaise; No Appetite, No Other HEENT: No Head Aches, No Visual Changes, No Eye Pain, No Ear Pain, No Dysphasia, No Sinus Congestion, No Post Nasal Drip, No Sore Throat, No Other Pulmonary: Dyspnea; No Cough, No Pleuritic Chest Pain, No Other Cardiovascular: No: Chest Pain, Palpitations, Orthopnea, Paroxysmal Noc. Dyspnea, Edema, Lt Headedness, Other Objective-Cardiology Exam Last Set of Vital Signs Vital Signs 04/26/19 04/28/19 04/28/19 08:00 07:30 08:03 Temp 96.9 Pulse 91 Resp 16 B/P (MAP) 135/75 (95) Pulse Ox 91 O2 Delivery Nasal Cannula O2 Flow Rate 3.00 FiO2 30 Capillary Refill : Less Than 3 Seconds I&O Intake and Output 04/28/19 00:00 Intake Total 1340 ml Output Total 3325 ml Balance -1985 ml Intake Oral 1100 ml IV Total 240 ml Output Urine Total 3325 ml # Bowel Movements 4 General: Alert, Oriented X3, Cooperative, Mild Distress HEENT: Atraumatic, PERRLA Neck: Supple Lungs: Normal Air Movement, Other (bilateral rhonchi) Heart: Normal S1, Normal S2, No Murmurs, Other (atrial fibrillation) Abdomen: Normal Bowel Sounds, Soft, No Tenderness, No Masses Extremities: Other (2+ pitting edema R>L) Skin: Other (cellulitis on the right leg with blister) Neuro: Normal Speech, Sensation Intact Results Lab Laboratory Tests Test 04/27/19 11:25 04/27/19 15:47 04/27/19 20:56 04/28/19 06:51 Range/Units Glucometer 191 H 189 H 199 H 150 H 70-110 MG/DL A/P-Cardiology Admission Diagnosis Acute atrial fibrillation/flutter Acute respiratory failure Sepsis Hypertension Assessment/Plan Paroxysmal atrial fibrillation, underwent LIZETH with cardioversion on April 24, 2019, went back to atrial fibrillation was rapid ventricular response this morning, started on Multaq and Cardizem and monitor heart rate, planning for cardioversion today Chronic anticoagulation for history of DVT, maintained on Eliquis 5 mg twice daily. Sepsis, probably secondary to cellulitis, there is a blister on the right leg with extensive cellulitis, does not appear to be ischemic in nature, had abnormal TIANNA, arterial ultrasound did not show significant obstructive disease. Dr. Field was consulted. Status post respiratory failure, history of COPD, obesity hypoventilation syndrome. Improving. Has been managed by Dr. Patel, continue on Lasix and monitor Anemia, slow drop in H&H, patient refused blood transfusion, started on Arinesp, managed by Dr. Almazan History of Deep venous thrombosis, noted on February 19, 2019 after emergency room visit for chest pain and shortness of breath, continue on Eliquis History of CVA, left-sided paralysis, continue on aspirin with Eliquis. Continue to monitor History of renal failure, chronic kidney disease stage 3-4, seen Dr. Branham in the past.. Continue to monitor Nonobstructive coronary artery disease per cardiac catheterization January 2012, continue to monitor Echocardiogram done on February 19, 2019 showing normal left ventricular size and systolic function, ejection fraction 55-65 percent, left atrial dilatation, PA pressure of 20 mmHg. Continue to monitor Hypertension-controlled. Continue monitor blood pressure/heart rate Hyperlipidemia, continue to monitor lipids Obesity Depression Clinical Quality Measures DVT/VTE Risk/Contraindication: Risk Factor Score Per Nursin RFS Level Per Nursing on Admit: 4+=Very High FARAZ ALCALA MD Apr 28, 2019 09:21
--- NOTE | 2019-04-28 09:22 | Cardiac Procedure Note-CS/ASA ---
Pre-Procedure Note Pre-Op Procedure Note H&P Reviewed The H&P was reviewed, patient examined and no changes noted. Date H&P Reviewed: Apr 28, 2019 Time H&P Reviewed: 09:22 Conscious Sedation Pre-Proced Time 09:22 ASA Score 3 For ASA 3 and 4: Consider anesthesia and medical clearance. Also, for patients with a history of failed moderate sedation consider anesthesia. Airway Lungs Heart ASA score ASA 1: a normal healthy patient ASA 2: a patient with a mild systemic disease (mid diabetes, controlled hypertension, obesity x ASA 3: a patient with a severe systemic disease that limits activity (angina, COPD, prior Myocardial infarction) ASA 4: a patient with an incapacitating disease that is a constant threat to life (CHF, renal failure) ASA 5: a moribund patient not expected to survive 24 hrs. (ruptured aneurysm) ASA 6: a declared brain- patient whose organs are being harvested. For emergent operations, add the letter E after the classification Mallampati Classification Grade 3 Sedation Plan Analgesia, Amnesia, Plan communicated to team members, Discussed options with patient/fam, Discussed risks with patient/fam The patient is an appropriate candidate to undergo the planned procedure, sedation, and anesthesia. The patient immediately re-assessed prior to indication. FARAZ ALCALA MD Apr 28, 2019 09:22
[2019-04-28] MEDS: meTOprolol SUCCINATE 100 MG (TOPROL XL) TAB PO SCH (09:30)
[2019-04-28] MEDS: DRONEDARONE TABLET 400 MG TABLET PO SCH ×2 (09:30→21:06)
[2019-04-28] MEDS: DILTIAZEM 180 MG (CARDIZEM CD) CAP PO SCH (09:30)
[2019-04-28] MEDS: APIXABAN 5 MG (ELIQUIS) TABLET PO SCH ×2 (09:30→21:07)
[2019-04-28] MEDS: POLYETHYLENE GLYCOL 17 GM (MIRALAX) PACK PO SCH ×2 (09:34→21:00)
[2019-04-28] MEDS: SENNA W/DOCUSATE (SENOKOT S) TABLET PO SCH ×2 (09:34→21:00)
[2019-04-28] MEDS ORDERED: proPOfol 200 MG/20 ML (DIPRIVAN) VIAL IV ONE (09:41)
--- NOTE | 2019-04-28 09:46 | Pulmonary Progress Note ---
Sepsis Event Evaluation Height, Weight, BMI Height: 5'6.00" Weight: 270lbs. 4.0oz. 122.964943xt; 43.6 BMI Method:Stated Exam Exam Vital Signs Date Time Temp Pulse Resp B/P (MAP) Pulse Ox O2 Delivery O2 Flow Rate FiO2 04/28/19 08:03 91 Nasal Cannula 3.00 04/28/19 07:30 96.9 91 16 135/75 (95) 95 High Flow N/C 3.00 04/28/19 07:00 91 04/28/19 04:00 96.8 61 20 119/65 (83) 90 High Flow N/C 3.00 04/28/19 02:22 94 High Flow N/C 3.00 04/28/19 01:00 100 04/28/19 00:30 97.2 61 20 141/70 (93) 92 High Flow N/C 3.00 04/27/19 22:15 92 Nasal Cannula 3.00 04/27/19 22:04 91 High Flow N/C 3.00 04/27/19 20:00 Nasal Cannula 3.00 04/27/19 19:42 99.1 82 18 140/72 (94) 94 High Flow N/C 3.00 04/27/19 19:00 70 04/27/19 16:15 98.4 79 18 120/55 (76) 92 High Flow N/C 3.00 04/27/19 15:52 90 High Flow N/C 3.00 04/27/19 12:49 111 04/27/19 11:23 98.7 93 18 138/91 (107) 94 High Flow N/C 3.00 04/27/19 10:00 92 High Flow N/C 3.00 I & O 04/28/19 07:00 Intake Total 1490 ml Output Total 2700 ml Balance -1210 ml Height & Weight Height: 5'6.00" Weight: 270lbs. 4.0oz. 122.174859kw; 43.6 BMI Method:Stated General Appearance: No Apparent Distress, WD/WN, Chronically ill, Obese HEENT: Normal ENT Inspection Neck: Normal Inspection Respiratory: Chest Non Tender, Lungs Clear, No Accessory Muscle Use, No Respiratory Distress, Decreased Breath Sounds Cardiovascular: Irregularly Irregular, Tachycardia Capillary Refill: Less Than 3 Seconds Gastrointestinal: normal bowel sounds, non tender, soft Extremity: Pedal Edema Neurologic/Psychiatric: Alert, Oriented x3, No Motor/Sensory Deficits, Normal Mood/Affect Skin: Normal Color, Warm/Dry Lymphatic: No Adenopathy Results Lab Laboratory Tests 04/27/19 04:21 Assessment/Plan Assessment/Plan Acute respiratory failure - improving -BiPAP QHS and PRN - Pt is now on 3 liter NC -Oxygen -SVNs Pneumonia -Zosyn started 04/19 -Hawkins culture -MRSA nasal swab - is negative Afib/flutter -Cardiology following Anemia -Monitor Cellulitis with sepsis -Wound care is following Acute renal failure -Worsening Cr -D/C NSAIDS Anemia -Monitor Acute sepsis with UTI -Zosyn and diflucan morbid obesity Hx of DVT -Chronic anticoagulation HX of CVA with residual left sided paralysis AMNA WRIGHT DO Apr 28, 2019 09:46
--- NOTE | 2019-04-28 10:17 | NUR ---
Pt awake and alert post cardioversion. Pt v/s remain stable and neuro checks are intact. Pt has previous stoke with left sided defecates noted. Pt denied any pain at this time. Will continue to monitor patient
--- NOTE | 2019-04-28 10:23 | Cardioversion ---
Cardioversion PROCEDURE PHYSICIAN: Faraz Calderon DATE OF PROCEDURE: 04/28/19 DIRECT EXTERNAL ELECTRICAL CARDIOVERSION: Indications: Atrial Fibrillation with rapid ventricular rate Preoperative diagnoses: Atrial Fibrillation with rapid ventricular rate Postoperative diagnosis: Sinus rhythm, Successful Electrical Cardioversion History: 68-year-old lady with paroxysmal atrial fibrillation, underwent cardioversion earlier this week, went back to atrial fibrillation, she was loaded with Multaq and brought for repeat cardioversion. Anesthesia: By Anesthesia services Complications: None Specimen: None Contrast: 0 Flouroscopy: none Procedure Details: The patient was brought the microbiology lab technician after informed consent was taken, all the risks and complications were explained including the risk of stroke. Electrical cardioversion was carried out with anesthesia support with propofol. 200 joules of synchronized shock was delivered through external patches which promptly restored sinus rhythm. The patient tolerated the procedure well. Conclusions: Successful cardioversion with no complication terminating atrial fibrillation FARAZ CALDERON MD Apr 28, 2019 10:23
--- NOTE | 2019-04-28 10:46 | Progress Note - Hospitalist ---
NOEMY TARIQ, 04/28/19 1046: Subjective HPI/CC On Admission Date Seen by Provider: Apr 28, 2019 Time Seen by Provider: 07:20 Subjective/Events-last exam Pt had 3 BM this morning in her bed Denies pain except for R leg Wound care is examining leg Cardioversion 04/28 in the morning with Dr. Calderon Vitals: temp 96.8, 91% on 3L, 91 HR Labs: WBC 11.4 Heart: RRR Lungs: expiratory wheezing Objective Exam Vital Signs Vital Signs Date Time Temp Pulse Resp B/P (MAP) Pulse Ox O2 Delivery O2 Flow Rate FiO2 04/28/19 10:31 87 18 166/79 (108) 97 Nasal Cannula 3.00 04/28/19 07:30 96.9 04/26/19 08:00 30 Capillary Refill : Less Than 3 Seconds Respiratory: Wheezing Cardiovascular: Regular Rate, Rhythm Results/Procedures Lab Patient resulted labs reviewed. Imaging: Reviewed Imaging Films Assessment/Plan Assessment and Plan Assess & Plan/Chief Complaint Assessment: 1. Congestive heart failure secondary to A. fib with RVR 2. Acute respiratory insufficiency secondary to number 1 3. Acute on chronic renal failure possibly secondary to intravascular volume depletion versus from diabetes 4. Iron deficient anemia on replacement 5. History of previous CVA with left sided hemiparesis 6. Type II diabetes on insulin 7. Sepsis on Zosyn-resolving 8. Cellulitis right lower leg with blister formation will need wound care consult 9. Possible oral thrush on Diflucan Plan 1. Repeat cardioversion and continuing care with Dr. Calderon 2. Continue antibiotic 3. Wound care for ruptured blister 4. Order PT/OT treatments to get pt moving 5. Discharge to [facility] once heart rhythm is stable Diagnosis/Problems Diagnosis/Problems (1) UTI (urinary tract infection) Status: Acute Qualifiers: Qualified Codes: N30.00 - Acute cystitis without hematuria (2) Acute sepsis Status: Acute (3) History of CVA (cerebrovascular accident) Status: Chronic (4) Cellulitis of leg without foot, right Status: Acute (5) Urinary tract infection Status: Acute Qualifiers: Qualified Codes: N30.01 - Acute cystitis with hematuria (6) Depression Status: Chronic Qualifiers: Qualified Codes: F32.9 - Major depressive disorder, single episode, unspecified (7) Normocytic anemia Status: Chronic (8) Sepsis Status: Acute Qualifiers: Qualified Codes: A41.9 - Sepsis, unspecified organism (9) ANKIT (obstructive sleep apnea) Status: Chronic (10) BMI 40.0-44.9, adult Status: Chronic (11) DVT prophylaxis Status: Acute (12) Insulin dependent diabetes mellitus with complications Status: Chronic (13) Respiratory failure Status: Acute Qualifiers: Qualified Codes: J96.00 - Acute respiratory failure, unspecified whether with hypoxia or hypercapnia (14) REFLUX (15) Encounter for screening colonoscopy (16) At risk for deep venous thrombosis Status: Acute (17) Bedbound Status: Chronic Clinical Quality Measures DVT/VTE Risk/Contraindication: Risk Factor Score Per Nursin RFS Level Per Nursing on Admit: 4+=Very High FADUMO RUSH DO 04/28/192046: Subjective Subjective/Events-last exam Had incontinent bowel today so holding bowel regimen Cardioversion will be performed in the [employer] today Right leg with bullous pemphigoid wound but no erythema We will monitor closely and change antiarrhythmics and monitor through the weekend before discharge back to the care home on Wednesday Review of Systems General: Fatigue Musculoskeletal: leg pain Objective Exam General Appearance: No Apparent Distress, WD/WN, Chronically ill Respiratory: Chest Non Tender, Lungs Clear, Normal Breath Sounds, No Accessory Muscle Use, No Respiratory Distress Cardiovascular: No Gallop, No JVD, No Murmur, Normal Peripheral Pulses, Irregularly Irregular, Tachycardia Extremity: Pedal Edema Neurologic/Psychiatric: Alert, Oriented x3, No Motor/Sensory Deficits, Normal Mood/Affect Assessment/Plan Assessment and Plan Assess & Plan/Chief Complaint Cardioversion planned for today Keep until Wednesday then discharged back to the care home Poor prognosis long-term given morbid obesity Diagnosis/Problems Diagnosis/Problems (1) Atrial fibrillation with rapid ventricular response Status: Acute (2) Bedbound Status: Chronic (3) Insulin dependent diabetes mellitus with complications Status: Chronic (4) BMI 40.0-44.9, adult Status: Chronic (5) ANKIT (obstructive sleep apnea) Status: Chronic (6) Depression Status: Chronic Qualifiers: Qualified Codes: F32.9 - Major depressive disorder, single episode, unspecified (7) Respiratory failure Status: Acute Qualifiers: Qualified Codes: J96.00 - Acute respiratory failure, unspecified whether with hypoxia or hypercapnia Supervisory-Addendum Brief Verification & Attestation Participated in pt care: history, MDM, physical Personally performed: exam, history, MDM, supervision of care Care discussed with: Medical Student Procedures: n/a Results interpretation: Verified all documentation Verification and Attestation of Medical Student E/M Service A medical student performed and documented this service in my presence. I reviewed and verified all information documented by the medical student and made modifications to such information, when appropriate. I personally performed the physical exam and medical decision making. Fadumo Rush, Apr 28, 2019,20:47 NOEMY TARIQ, Apr 28, 2019 10:46 FADUMO RUSH DO Apr 28, 2019 20:47
--- NOTE | 2019-04-28 10:58 | Anesthesia-Procedure Note ---
Procedures/Interventions Procedure Start/Stop/Diagnosis Date of Procedure: Apr 28, 2019 Start Time: 10:05 Referring Physician: Sharon Stop Time: 10:10 LIZETH/Cardioversion Anesthesia Type: MAC ASA Class: 3 Monitors and Equipment: BP Cuff - Right, Continuous EKG, End Tidal CO2, IV, Pulse Oximeter READING,EULALIA Medina CRNA Apr 28, 2019 10:58
[2019-04-28] MEDS: fluCOnazole (DIFLUCAN) 100 MG TAB PO SCH (11:23)
[2019-04-28] MEDS: GABAPENTIN 300 MG (NEURONTIN) CAP PO SCH ×2 (11:24→21:06)
[2019-04-28] MEDS: IRON SUCROSE 200 MG/10 ML (VENOFER) VIAL IV SCH (11:25)
[2019-04-28] MEDS: DIGOXIN 0.25 MG (LANOXIN) TAB PO SCH (11:29)
[2019-04-28] MEDS: NS IV 1000 ML 1,000 ML IV SCH (11:30)
--- NOTE | 2019-04-28 11:57 | Occupational Ther Daily Note ---
OT Current Status-Daily Note Subjective Pt alert, lying in bed. Nrsg in room. Pt agrees to therapy. Pt c/o mouth pain. Mental Status/Objective Patient Orientation: Person, Place, Time, Situation Therapy Code Descriptions/Definitions Functional [place] Measure: 0=Not Assessed/NA 4=Minimal Assistance 1=Total Assistance 5=Supervision or Setup 2=Maximal Assistance 6=Modified [place] 3=Moderate Assistance 7=Complete [place] Attachments: Aguiar Catheter, IV ADL-Treatment Pt declined grooming today. Completing all tasks with R hand. After giving pt dentures, pt able to place dentures in mouth. Pt requested to have her cherries and grapes. After set up, pt was able to use spoon to eat and fingers to bring cherries and grapes to mouth. Pt required assist x2 for bed mobility. After therapy, pt lying in bed with call light/phone in reach. Nrsg in room. All needs met in room. Eating (FIM): 5 OT Short Term Goals Short Term Goals Grooming(FIM): 4 1=Demonstrate adherence to instructed precautions during ADL tasks. 2=Patient will verbalize/demonstrate understanding of assistive devices/modifications for ADL. 3=Patient will improve strength/tolerance for activity to enable patient to perform ADL's. OT Alf Goals Dovetailer Goals Grooming(FIM): 5 Additional Goals: 1-Demonstrate ADL Tasks, 2-Verbalize Understanding, 3- ImproveStrength/Vick 1=Demonstrate adherence to instructed precautions during ADL tasks. 2=Patient will verbalize/demonstrate understanding of assistive devices/modifications for ADL. 3=Patient will improve strength/tolerance for activity to enable patient to perform ADL's. OT Education/Plan Problem List/Assessment Assessment: Decreased Activ Tolerance, Decreased UE Strength, Impaired Bed Mobility, Impaired Self-Care Skills, Restricted Funct UE ROM Discharge Recommendations Plan/Recommendations: Continue POC Treatment Plan/Plan of Care Patient would benefit from OT for education, treatment and training to promote independence in ADL's, mobility, safety and/or upper extremity function for ADL's. Plan of Care: ADL Retraining, Functional Mobility, Group Exercise/Act as Ind, UE Funct Exercise/Act Treatment Duration: May 02, 2019 Frequency: 5 times per week Estimated Hrs Per Day: .25 hour per day Agreement: Yes Rehab Potential: Guarded Time/GCodes Start Time: 11:30 Stop Time: 11:40 Total Time Billed (hr/min): 10 Billed Treatment Time 1 visit-FA 1 (10 min) JARROD OLIVARES Apr 28, 2019 11:57
[2019-04-28] MEDS: DARBEPOETIN 25 MCG/ML (ARANESP) 1 ML HOSPITAL SC SCH (13:57)
[2019-04-28] MEDS: ACETAMINOPHEN 500 MG TAB (TYLENOL) PO PRN (14:00)
--- NOTE | 2019-04-28 14:30 | Physical Therapy Daily Note ---
PT Daily Note-Current Subjective Patient agrees to PT. Mental Status Patient Orientation: Normal For Age Attachments: Oxygen, Aguiar Catheter Transfers Therapy Code Descriptions/Definitions Functional [place] Measure: 0=Not Assessed/NA 4=Minimal Assistance 1=Total Assistance 5=Supervision or Setup 2=Maximal Assistance 6=Modified [place] 3=Moderate Assistance 7=Complete [place] Therapy Quality Codes: 6 Independent with activity with or without an assistive device 5 Patient requires set up or clean up by helper. Patient completes activity by themselves 4 Supervision or touching assist (CGA). Rake provide cues , steadying assist 3 The helper provides less than half the effort to complete the activity 2 The helper provides more than half the effort to complete the activity 1 Dependent. The helper does all the effort to complete an activity 7 Patient refused to complete or attempt activity 9 The patient did not perform the activity before the current illness or injury 88 Not attempted due to Medical conditions or safety concerns Exercises Supine Ex: Ankle pumps, Quad Set, Heel Slides, Straight leg raise, Hip abd/add Supine Reps: 15 (AAROM right LE/PROM left LE) Assessment Patient has increase SOA with exercises. PT to continue with POC. PT Residential Goals Staff Assistant Goals PT Residential Goals Time Frame: May 06, 2019 Transfers (B,C,W/C) (FIM): 2 PT Plan Treatment/Plan Treatment Plan: Continue Plan of Care Treatment Plan: Bed Mobility, Education, Functional Activity Vick, Functional Strength, Safety, Therapeutic Exercise, Transfers Treatment Duration: May 06, 2019 Frequency: 5 times per week Estimated Hrs Per Day: .25 hour per day Patient and/or Family Agrees t: Yes Time/GCodes Time In: 1340 Time Out: 1350 Total Billed Treatment Time: 10 Total Billed Treatment 1 visit EX 10 min MICHAEL ADAN PT Apr 28, 2019 14:30
[2019-04-28] MEDS: PANTOPRAZOLE 40 MG (PROTONIX) TAB PO SCH (16:27)
[2019-04-28] MEDS: ATORVASTATIN 40 MG (LIPITOR) TABLET PO SCH (21:06)
[2019-04-29] VITALS: BP 102/65
[2019-04-29] MEDS: DILTIAZEM 30 MG (CARDIZEM) TAB PO SCH ×4 (00:38→17:21)
[2019-04-29] MEDS: NYSTATIN ORAL SUSP 5 ML UDC PO SCH ×4 (00:38→17:21)
[2019-04-29] MEDS: NS IV 1000 ML 1,000 ML IV SCH (01:02)
[2019-04-29] MEDS: RT-ALBUTEROL/IPRATROPIUM 3 ML (DUONEB) VIAL INH SCH ×6 (02:40→22:38)
[2019-04-29] MEDS: ACETAMINOPHEN 500 MG TAB (TYLENOL) PO PRN (03:43)
[2019-04-29 04:00] VITALS: BP 142/77
[2019-04-29] MEDS: inSUlin ASPART (NovoLOG) 1 UNIT/0.01 ML (CHARGE PER UNIT) SQ SCH ×4 (05:52→21:39)
[2019-04-29 06:18] LABS: BASOPHILS % (AUTO) 0 % (0-10); EOSINOPHILS # (AUTO) 0.2 10^3/uL (0.0-0.3); EOSINOPHILS % (AUTO) 2 % (0-10); HEMATOCRIT 26 % (35-52); HEMOGLOBIN 7.6 G/DL (11.5-16.0); LYMPHOCYTES # (AUTO) 1.1 X 10^3 (1.0-4.0); LYMPHOCYTES % (AUTO) 10 % (12-44); MEAN CORPUSCULAR HEMOGLOBIN 26 PG (25-34); MEAN CORPUSCULAR HGB CONC 30 G/DL (32-36); MEAN CORPUSCULAR VOLUME 89 FL (80-99); MEAN PLATELET VOLUME 8.8 FL (7.4-10.4); MONOCYTES # (AUTO) 0.7 X 10^3 (0.0-1.0); MONOCYTES % (AUTO) 6 % (0-12); NEUTROPHILS # (AUTO) 9.2 X 10^3 (1.8-7.8); NEUTROPHILS % (AUTO) 82 % (42-75); PLATELET COUNT 394 10^3/uL (130-400); RED CELL DISTRIBUTION WIDTH 17.6 % (10.0-14.5); WHITE BLOOD COUNT 11.2 10^3/uL (4.3-11.0)
[2019-04-29] MEDS: SUCRALFATE 1 GM (CARAFATE) TAB PO SCH ×4 (06:35→20:29)
[2019-04-29] MEDS: FUROSEMIDE 40 MG/4 ML INJ (LASIX) IVP SCH ×2 (06:35→16:58)
[2019-04-29 06:40] LABS: ALBUMIN 2.9 GM/DL (3.2-4.5); BILIRUBIN,TOTAL 0.4 MG/DL (0.1-1.0); CREATININE SERUM 2.21 MG/DL (0.60-1.30); POTASSIUM 3.7 MMOL/L (3.6-5.0); TOTAL PROTEIN 6.9 GM/DL (6.4-8.2)
--- NOTE | 2019-04-29 07:20 | NUR ---
ICU called and said that patient converted to SR at 0715
[2019-04-29] MEDS: RT-ADVAIR HFA 115/21 MCG PER PUFF IH SCH ×2 (07:27→19:01)
--- NOTE | 2019-04-29 07:36 | NUR ---
Patient is on O2 at 3 L; she is doing good and has no complaints at this time
[2019-04-29 08:00] VITALS: BP 136/71
[2019-04-29] MEDS: DRONEDARONE TABLET 400 MG TABLET PO SCH ×2 (08:03→20:29)
[2019-04-29] MEDS: DILTIAZEM 180 MG (CARDIZEM CD) CAP PO SCH ×2 (08:03→11:12)
[2019-04-29] MEDS: meTOprolol SUCCINATE 100 MG (TOPROL XL) TAB PO SCH (08:03)
[2019-04-29] MEDS: APIXABAN 5 MG (ELIQUIS) TABLET PO SCH ×2 (08:03→20:29)
[2019-04-29] MEDS: GABAPENTIN 300 MG (NEURONTIN) CAP PO SCH ×2 (08:03→20:29)
[2019-04-29] MEDS: SENNA W/DOCUSATE (SENOKOT S) TABLET PO SCH ×2 (08:05→20:29)
[2019-04-29] MEDS: POLYETHYLENE GLYCOL 17 GM (MIRALAX) PACK PO SCH ×2 (08:06→20:30)
[2019-04-29] MEDS: DIGOXIN 0.25 MG (LANOXIN) TAB PO SCH (08:09)
--- NOTE | 2019-04-29 09:31 | Pulmonary Progress Note ---
Subjective Time Seen by a Provider: 09:31 Subjective/Events-last exam No complications noted. Sepsis Event Evaluation Height, Weight, BMI Height: 5'6.00" Weight: 261lbs. 0.0oz. 118.651372iu; 43.6 BMI Method:Stated Exam Exam Vital Signs Date Time Temp Pulse Resp B/P (MAP) Pulse Ox O2 Delivery O2 Flow Rate FiO2 04/29/19 07:46 66 04/29/19 07:36 Nasal Cannula 3.00 04/29/19 07:27 93 Nasal Cannula 3.00 04/29/19 04:00 97.9 71 24 142/77 (98) 94 High Flow N/C 3.00 04/29/19 02:40 90 Nasal Cannula 3.00 04/29/19 01:00 71 04/29/19 00:00 98.2 71 24 102/65 (77) 95 High Flow N/C 3.00 04/28/19 21:45 92 Nasal Cannula 3.00 04/28/19 20:00 98.0 72 18 143/77 (99) 96 High Flow N/C 3.00 04/28/19 20:00 Nasal Cannula 3.00 04/28/19 19:18 94 Nasal Cannula 3.00 04/28/19 19:13 93 Nasal Cannula 3.00 04/28/19 19:00 70 04/28/19 16:00 98.4 77 18 137/69 (91) 97 High Flow N/C 3.00 04/28/19 14:54 92 Nasal Cannula 3.00 04/28/19 13:00 80 04/28/19 12:00 98.2 82 16 131/72 (91) 94 Nasal Cannula 3.00 04/28/19 11:04 93 Nasal Cannula 3.00 04/28/19 10:31 87 18 166/79 (108) 97 Nasal Cannula 3.00 04/28/19 10:13 88 18 144/87 (106) 98 Nasal Cannula 04/28/19 10:07 98 Room Air I & O 04/29/19 07:00 Intake Total 2010 ml Output Total 2475 ml Balance -465 ml Height & Weight Height: 5'6.00" Weight: 261lbs. 0.0oz. 118.076851kc; 43.6 BMI Method:Stated General Appearance: No Apparent Distress, WD/WN, Chronically ill HEENT: Normal ENT Inspection Neck: Normal Inspection Respiratory: Chest Non Tender, Lungs Clear, Normal Breath Sounds, No Accessory Muscle Use, No Respiratory Distress Cardiovascular: No Gallop, No JVD, No Murmur, Normal Peripheral Pulses Capillary Refill: Less Than 3 Seconds Gastrointestinal: normal bowel sounds, non tender, soft Extremity: Pedal Edema Neurologic/Psychiatric: Alert, Oriented x3, No Motor/Sensory Deficits, Normal Mood/Affect Skin: Normal Color, Warm/Dry Lymphatic: No Adenopathy Results Lab Laboratory Tests 04/29/19 05:52 Assessment/Plan Assessment/Plan Acute respiratory failure - improving - Pt is now on 3 liter NC -Oxygen -SVNs Pneumonia -Hawkins culture -MRSA nasal swab - is negative Afib/flutter -Cardiology following Anemia -Monitor Cellulitis with sepsis -Wound care is following Acute renal failure -Worsening Cr -D/C NSAIDS Anemia -Monitor morbid obesity Hx of DVT -Chronic anticoagulation HX of CVA with residual left sided paralysis AMNA WRIGHT DO Apr 29, 2019 09:31
--- NOTE | 2019-04-29 11:29 | Progress Note ---
Standard Progress Note Progress Notes/Assess & Plan Date Seen by a Provider: Apr 29, 2019 Time Seen by a Provider: 11:24 Progress/Assessment & Plan 68-year-old female Bahai admitted with right lower extremity cellulitis and acute on chronic renal failure. She developed atrial fibril lation with rapid ventricular response during her admission and has recurred after cardioversion. Hematology was consulted for management of anemia, mostly from chronic disease and renal failure. Fecal occult blood test positive indicating some GI blood loss. Patient had cardioversion yesterday and is in sinus rhythm this morning. Patient was started on Aranesp 20 g daily for anemia of chronic disease and stage IV renal failure. She is also on iron infusions. Patient does not feel any better this morning than yesterday. She has burning pain in right her foot and lower leg. Hemoglobin stable at 7.6 with no overt signs of active or acute blood loss. Continue Aranesp. Stop anticoagulation when okay with cardiology as soon as possible. After patient is discharged, arrange for Aranesp at least weekly on an outpatient basis with the weekly labs. No new recommendations today. I am covering for Dr. Young this weekend. DIANA MAYORGA MD Apr 29, 2019 11:29
--- NOTE | 2019-04-29 11:30 | Progress Note - Hospitalist ---
Subjective HPI/CC On Admission Date Seen by Provider: Apr 29, 2019 Time Seen by Provider: 11:30 Subjective/Events-last exam Hgb 7.6 today Creat 2.2 Patient appears much better and edema much improved Dr Hidalgo at the bedside and the right lower leg bullous pemphigoid wound looks good without erythema of concerning drainage Checked meds and labs AF still recurs at times per Tely but rate controlled No BM today but had loose stools and incontinence yesterday Conferred with Dr Hidalgo Review of Systems General: Fatigue Cardiovascular: Edema Objective Exam Vital Signs Vital Signs Date Time Temp Pulse Resp B/P (MAP) Pulse Ox O2 Delivery O2 Flow Rate FiO2 04/29/19 14:26 92 Nasal Cannula 3.00 04/29/19 13:10 70 04/29/19 12:00 97.8 20 161/76 (104) 04/26/19 08:00 30 Capillary Refill : Less Than 3 Seconds General Appearance: No Apparent Distress, WD/WN, Chronically ill, Obese Respiratory: Chest Non Tender, Lungs Clear, Normal Breath Sounds, No Accessory Muscle Use, No Respiratory Distress Cardiovascular: Regular Rate, Rhythm, No Edema, No Gallop, No JVD, No Murmur, Normal Peripheral Pulses Extremity: Pedal Edema (much improved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: Alert, Oriented x3, No Motor/Sensory Deficits, Normal Mood/Affect Results/Procedures Lab Laboratory Tests 04/29/19 05:52 Patient resulted labs reviewed. Imaging: Reviewed Imaging Films Assessment/Plan Assessment and Plan Assess & Plan/Chief Complaint Assessment: AF w/RVR s/p cardioversion x 2 Morbid obesity CRI JW so refuses blood transfusions DM Right lower leg wound bullous pemphigoid Plan: Cardioversion yesterday for the second time Keep until Wednesday [facility] Poor prognosis long-term given morbid obesity Critical Care Critically Ill Patient Diagnosis/Problems Diagnosis/Problems (1) Atrial fibrillation with rapid ventricular response Status: Acute (2) Bedbound Status: Chronic (3) Insulin dependent diabetes mellitus with complications Status: Chronic (4) BMI 40.0-44.9, adult Status: Chronic (5) ANKIT (obstructive sleep apnea) Status: Chronic (6) Depression Status: Chronic Qualifiers: Depression Type: major depressive disorder Major depression recurrence: unspecified whether recurrent Active/Remission status: remission status unspecified Qualified Codes: F32.9 - Major depressive disorder, single episode, unspecified (7) Respiratory failure Status: Acute Qualifiers: Chronicity: acute Respiratory failure complication: unspecified whether with hypoxia or hypercapnia Qualified Codes: J96.00 - Acute respiratory failure, unspecified whether with hypoxia or hypercapnia (8) Bullous pemphigoid Status: Chronic (9) Ulcer of right leg Status: Acute Clinical Quality Measures DVT/VTE Risk/Contraindication: Risk Factor Score Per Nursin RFS Level Per Nursing on Admit: 4+=Very High ALEJANDRA RUSH DO Apr 29, 2019 11:30
[2019-04-29 12:00] VITALS: BP 161/76
--- NOTE | 2019-04-29 12:28 | Wound Care Assessment ---
Wound Care Assessment Date Seen by Provider: Apr 29, 2019 Time Seen by Provider: 12:00 Chief Complaint Swelling and redness of R calf. HPI The patient is a 68 year old female with a 5 day history of swelling and progressive redness of R calf. No open wound. Multiple co-morbidities. Improved with elevation and IV antibiotics. Will follow. 04/21/19 Interval Note: The patient has no complaint referable to R leg. The leg shows more edema, but reduced erythema. The patient was in bed with her legs dependent. She is counselled that to the degree that she is able to elevate, her legs will improve. No open wounds. Arterial studies ordered. 04/23/10 Interval Note: the patient has been transferred to ICU for atrial fibrillation with RVR. She has worsening CHF and edema, with blister formation of the R calf and thigh. Segmental pressures not available, but the patient is not a candidate for compression, even if her arterial perfusion were to be shown to be good. No specific dressing orders. Will not unroof the blisters at this time. Will follow. 04/24/19 Interval Note: Less trouble with breathing this afternoon. The leg is less taut. No erythema. Arterial studies consistent with significant atherosclerotic disease. If circumstances will allow, I would hold off evaluation/intervention in regards to arterial status of R leg until clinical outcome from current problems is more clear. Will follow. 04/25/19 Interval Note: Called to see in regards to rupture of R lower medial calf blister. This is unroofed and noted to be filled with thickened spongy fluid which is removed. Intact skin underlies. Xeroform dressings ordered. 04/29/19 Interval Note: R calf much smaller post cardioversion. Clean partial thickness ulcer of R medial calf. There remains some residual erythema, though slight. Past Medical History: Admits Diabetes Type II, Admits Heart Disease Smoking Status: Never a Smoker Recreational Drug Use: No Alcohol Use: Denies Use Review of Systems General: No Chills Pulmonary: No Dyspnea Cardiovascular: No: Chest Pain Exam Vital Signs Date Time Temp Pulse Resp B/P (MAP) Pulse Ox O2 Delivery O2 Flow Rate FiO2 04/29/19 10:53 92 Nasal Cannula 3.00 04/29/19 08:00 97.4 72 20 136/71 (92) 04/26/19 08:00 30 Capillary Refill : Less Than 3 Seconds General Appearance: no apparent distress HEENT: normal ENT inspection Neck: normal inspection Cardiovascular: regular rate, rhythm Respiratory: lungs clear Gastrointestinal: normal bowel sounds, non tender Extremities: swelling (Much reduced with wrinkling of skin. Partial thickness ulcer 4.5 x 3.5 cm of R medial calf, healing blister.) Results Laboratory Tests 04/28/19 16:09: Glucometer 212H 04/28/19 21:02: Glucometer 132H 04/29/19 05:44: Glucometer 135H 04/29/19 05:52: White Blood Count 11.2H, Red Blood Count 2.89L, Hemoglobin 7.6L, Hematocrit 26L, Mean Corpuscular Volume 89, Mean Corpuscular Hemoglobin 26, Mean Corpuscular Hemoglobin Concent 30L, Red Cell Distribution Width 17.6H, Platelet Count 394, Mean Platelet Volume 8.8, Neutrophils (%) (Auto) 82H, Lymphocytes (%) (Auto) 10L , Monocytes (%) (Auto) 6, Eosinophils (%) (Auto) 2, Basophils (%) (Auto) 0, Neutrophils # (Auto) 9.2H, Lymphocytes # (Auto) 1.1, Monocytes # (Auto) 0.7, Eosinophils # (Auto) 0.2, Basophils # (Auto) 0.0, Sodium Level 141, Potassium Level 3.7, Chloride Level 102, Carbon Dioxide Level 27, Anion Gap 12, Blood Urea Nitrogen 22H, Creatinine 2.21H, Estimat Glomerular Filtration Rate 22, BUN/Creatinine Ratio 10, Glucose Level 121H, Calcium Level 9.0, Corrected Calcium 9.9, Total Bilirubin 0.4, Aspartate Amino Transf (AST/SGOT) 15, Alanine Aminotransferase (ALT/SGPT) 14, Alkaline Phosphatase 143H, Total Protein 6.9, Albumin 2.9L 04/29/19 11:04: Glucometer 204H Microbiology 04/19/19 Blood Culture - Final, Complete Staphylococcus epidermidis Bacillus sp not B. anthracis 04/19/19 MRSA Screen - Final, Complete MRSA not isolated 04/20/19 Urine Culture - Final, Complete YEAST Assessment/Plan/Dx 1. Cellulitis of R calf., improved. 2. Lymphedema, better post cardioversion. 3. Functional paraplegia. Plan: The patient has reduced edema. Elevation seems less difficult, due to respiratory status. Will follow. ESTEPHANIE PICHARDO MD Apr 29, 2019 12:28
[2019-04-29] MEDS: DARBEPOETIN 25 MCG/ML (ARANESP) 1 ML HOSPITAL SC SCH (12:45)
--- NOTE | 2019-04-29 13:15 | NUR ---
Dr. Hidalgo in to see patient, changed dressing to R) lower leg medial aspect with xeroform, 4x4s and secured with Kerlex and tape
--- NOTE | 2019-04-29 13:39 | Cardiology Progress Note ---
Cardiology SOAP Progress Note Subjective: No cardiac complaints. Continues to be in sinus rhythm. Objective: I&O/Vital Signs 04/29/19 04/29/19 04/29/19 04/29/19 02:40 04:00 07:27 07:36 Temp 97.9 Pulse 71 Resp 24 B/P (MAP) 142/77 (98) Pulse Ox 90 94 93 O2 Delivery Nasal Cannula High Flow N/C Nasal Cannula Nasal Cannula O2 Flow Rate 3.00 3.00 3.00 3.00 04/29/19 04/29/19 04/29/19 04/29/19 07:46 08:00 08:00 10:53 Temp 97.4 Pulse 66 72 Resp 20 B/P (MAP) 136/71 (92) Pulse Ox 97 92 O2 Delivery High Flow N/C Nasal Cannula Nasal Cannula O2 Flow Rate 3.00 3.00 3.00 04/29/19 13:10 Pulse 70 04/29/19 00:00 Intake Total 1760 ml Output Total 2150 ml Balance -390 ml Weight (Pounds): 261 Weight (Ounces): 0.0 Weight (Calculated Kilograms): 118.052231 Constitutional: AAO x 3 Respiratory: No accessory muscle use, No respiratory distress, No chest tender, No chest expansion is symmetric; chest is bilaterally symmetric; No lungs clear to percussion; lungs clear to auscultation; No crackles, No rhonchi, No rales, No stridor, No wheezing, No pleural rub, No other Cardiovascular: regular rate-rhythm; No irregularly irregular, No extra beats, No parasternal heave is noted, No JVD, No edema, No bradycardia, No tachycardia, No point of maximal impulse, No cardiac thrills are palpable; S1 and S2; No gallop/S3, No gallop/S4, No diastolic murmur, No systolic murmur, No friction rub, No click, No other Gastrointestional: No tender, No soft, No round, No distended, No pulsatile m ass, No organomegaly, No guarding, No rebound, No tenderness, No hernia, No mass, No audible bowel sounds, No abnormal bowel sounds, No abdominal bruits, No spleenomegaly, No other Extremities: No normal range of motion, No non-tender, No normal inspection, No pedal edema, No calf tenderness, No normal capillary refill, No pelvis stable, No calf tenderness, No inflammation, No pedal edema, No slow capillary refill, No swelling, No other, No abrasion, No clubbing, No cyanosis, No ecchymosis, No laceration, No no lower extremity edema bilateral, No significant edema, No tenderness, No wound Neurologic/Psychiatric: no motor/sensory deficits, alert, normal mood/affect, oriented x 3 Skin: normal color, warm/dry; No cyanosis, No cool, No diaphoresis, No damp, No ecchymosis, No jaundice, No mottled, No pallor, No rash, No tattoos/piercings, No ulcerations, No rash on exposed areas, No ulcerations on exposed areas, No other Results/Procedures: Labs Laboratory Tests 04/28/19 16:09: Glucometer 212H 04/28/19 21:02: Glucometer 132H 04/29/19 05:44: Glucometer 135H 04/29/19 05:52: White Blood Count 11.2H, Red Blood Count 2.89L, Hemoglobin 7.6L, Hematocrit 26L, Mean Corpuscular Volume 89, Mean Corpuscular Hemoglobin 26, Mean Corpuscular Hemoglobin Concent 30L, Red Cell Distribution Width 17.6H, Platelet Count 394, Mean Platelet Volume 8.8, Neutrophils (%) (Auto) 82H, Lymphocytes (%) (Auto) 10L , Monocytes (%) (Auto) 6, Eosinophils (%) (Auto) 2, Basophils (%) (Auto) 0, Neutrophils # (Auto) 9.2H, Lymphocytes # (Auto) 1.1, Monocytes # (Auto) 0.7, Eosinophils # (Auto) 0.2, Basophils # (Auto) 0.0, Sodium Level 141, Potassium Level 3.7, Chloride Level 102, Carbon Dioxide Level 27, Anion Gap 12, Blood Urea Nitrogen 22H, Creatinine 2.21H, Estimat Glomerular Filtration Rate 22, BUN/Creatinine Ratio 10, Glucose Level 121H, Calcium Level 9.0, Corrected Calcium 9.9, Total Bilirubin 0.4, Aspartate Amino Transf (AST/SGOT) 15, Alanine Aminotransferase (ALT/SGPT) 14, Alkaline Phosphatase 143H, Total Protein 6.9, Albumin 2.9L 04/29/19 11:04: Glucometer 204H Microbiology 04/19/19 Blood Culture - Final, Complete Staphylococcus epidermidis Bacillus sp not B. anthracis 04/19/19 MRSA Screen - Final, Complete MRSA not isolated 04/20/19 Urine Culture - Final, Complete YEAST A/P: Assessment/Dx: Acute atrial fibrillation/flutter Acute respiratory failure Sepsis Hypertension Plan: Paroxysmal atrial fibrillation, underwent LIZETH with cardioversion on April 24, 019, went back to atrial fibrillation was rapid ventricular response this morning, started on Multaq and Cardizem and monitor heart rate, successful cardioversion yesterday. Chronic anticoagulation for history of DVT, maintained on Eliquis 5 mg twice daily. Sepsis, probably secondary to cellulitis, there is a blister on the right leg with extensive cellulitis, does not appear to be ischemic in nature, had abnormal TIANNA, arterial ultrasound did not show significant obstructive disease. Dr. Field was consulted. Status post respiratory failure, history of COPD, obesity hypoventilation syndrome. Improving. Has been managed by Dr. Patel, continue on Lasix and monitor Anemia, slow drop in H&H, patient refused blood transfusion, started on Arinesp, managed by Dr. Almazan History of Deep venous thrombosis, noted on February 19, 2019 after emergency room visit for chest pain and shortness of breath, continue on Eliquis History of CVA, left-sided paralysis, continue on aspirin with Eliquis. Continue to monitor History of renal failure, chronic kidney disease stage 3-4, seen Dr. Branham in the past.. Continue to monitor Nonobstructive coronary artery disease per cardiac catheterization January 2012, continue to monitor Echocardiogram done on February 19, 2019 showing normal left ventricular size and systolic function, ejection fraction 55-65 percent, left atrial dilatation, PA pressure of 20 mmHg. Continue to monitor Hypertension-controlled. Continue monitor blood pressure/heart rate Hyperlipidemia, continue to monitor lipids Obesity Depression Thank you for your consultation. Please call me if you have any questions. Mag Chen MD, FACP, FACC, FSCAI, FHRS, CCDS Interventional Cardiology Cardiac Electrophysiology Vascular Medicine and Endovascular Interventions Shankar CHEN MD Apr 29, 2019 1:39 pm
[2019-04-29 15:50] VITALS: BP 145/78
[2019-04-29] MEDS: PANTOPRAZOLE 40 MG (PROTONIX) TAB PO SCH (16:06)
[2019-04-29 19:47] VITALS: BP 141/70
[2019-04-29] MEDS: ATORVASTATIN 40 MG (LIPITOR) TABLET PO SCH (20:29)
[2019-04-30] MEDS: NYSTATIN ORAL SUSP 5 ML UDC PO SCH ×4 (01:07→17:04)
[2019-04-30] MEDS: DILTIAZEM 30 MG (CARDIZEM) TAB PO SCH ×4 (01:07→17:05)
[2019-04-30 01:12] VITALS: BP_SYST 132; BP_DIAS 59; BP_DIAS 69
[2019-04-30] MEDS: RT-ALBUTEROL/IPRATROPIUM 3 ML (DUONEB) VIAL INH SCH ×6 (02:12→22:07)
[2019-04-30 04:00] VITALS: BP 129/61
[2019-04-30 05:47] LABS: BASOPHILS % (AUTO) 0 % (0-10); EOSINOPHILS # (AUTO) 0.2 10^3/uL (0.0-0.3); EOSINOPHILS % (AUTO) 1 % (0-10); HEMATOCRIT 25 % (35-52); HEMOGLOBIN 7.3 G/DL (11.5-16.0); LYMPHOCYTES # (AUTO) 1.1 X 10^3 (1.0-4.0); LYMPHOCYTES % (AUTO) 8 % (12-44); MEAN CORPUSCULAR HEMOGLOBIN 26 PG (25-34); MEAN CORPUSCULAR HGB CONC 29 G/DL (32-36); MEAN CORPUSCULAR VOLUME 90 FL (80-99); MEAN PLATELET VOLUME 9.1 FL (7.4-10.4); MONOCYTES # (AUTO) 0.8 X 10^3 (0.0-1.0); MONOCYTES % (AUTO) 6 % (0-12); NEUTROPHILS # (AUTO) 10.8 X 10^3 (1.8-7.8); NEUTROPHILS % (AUTO) 84 % (42-75); PLATELET COUNT 363 10^3/uL (130-400); RED CELL DISTRIBUTION WIDTH 17.6 % (10.0-14.5); WHITE BLOOD COUNT 12.9 10^3/uL (4.3-11.0)
[2019-04-30] MEDS: inSUlin ASPART (NovoLOG) 1 UNIT/0.01 ML (CHARGE PER UNIT) SQ SCH ×4 (05:50→23:23)
[2019-04-30 06:14] LABS: ALBUMIN 2.9 GM/DL (3.2-4.5); BILIRUBIN,TOTAL 0.5 MG/DL (0.1-1.0); CALCIUM 8.9 MG/DL (8.5-10.1); CREATININE SERUM 2.19 MG/DL (0.60-1.30); POTASSIUM 4.1 MMOL/L (3.6-5.0); TOTAL PROTEIN 6.9 GM/DL (6.4-8.2)
--- NOTE | 2019-04-30 06:39 | Pulmonary Progress Note ---
Sepsis Event Evaluation Height, Weight, BMI Height: 5'6.00" Weight: 261lbs. 0.0oz. 118.432062so; 43.6 BMI Method:Stated Exam Exam Vital Signs Date Time Temp Pulse Resp B/P (MAP) Pulse Ox O2 Delivery O2 Flow Rate FiO2 04/30/19 02:13 91 Nasal Cannula 3.00 04/30/19 01:12 68 20 132/69 (90) 96 04/30/19 01:00 64 04/30/19 00:00 97.4 04/29/19 22:43 91 Nasal Cannula 3.00 04/29/19 20:00 High Flow N/C 3.00 04/29/19 19:47 99.2 69 20 141/70 (93) 92 High Flow N/C 3.00 04/29/19 19:04 Nasal Cannula 3.00 04/29/19 19:03 90 Nasal Cannula 3.00 04/29/19 19:00 69 04/29/19 15:50 98.5 70 22 145/78 (100) 95 High Flow N/C 3.00 04/29/19 14:26 92 Nasal Cannula 3.00 04/29/19 13:10 70 04/29/19 12:00 97.8 72 20 161/76 (104) 95 High Flow N/C 3.00 04/29/19 10:53 92 Nasal Cannula 3.00 04/29/19 08:00 Nasal Cannula 3.00 04/29/19 08:00 97.4 72 20 136/71 (92) 97 High Flow N/C 3.00 04/29/19 07:46 66 04/29/19 07:36 Nasal Cannula 3.00 04/29/19 07:27 93 Nasal Cannula 3.00 I & O 04/30/19 07:00 Intake Total 1560 ml Output Total 1750 ml Balance -190 ml Height & Weight Height: 5'6.00" Weight: 261lbs. 0.0oz. 118.717295aj; 43.6 BMI Method:Stated General Appearance: No Apparent Distress, WD/WN, Chronically ill, Obese HEENT: Normal ENT Inspection Neck: Normal Inspection Respiratory: Chest Non Tender, Lungs Clear, Normal Breath Sounds, No Accessory Muscle Use, No Respiratory Distress Cardiovascular: Regular Rate, Rhythm, No Edema, No Gallop, No JVD, No Murmur, Normal Peripheral Pulses Capillary Refill: Less Than 3 Seconds Gastrointestinal: normal bowel sounds, non tender, soft Extremity: Pedal Edema (much improved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: Alert, Oriented x3, No Motor/Sensory Deficits, Normal Mood/Affect Skin: Normal Color, Warm/Dry Lymphatic: No Adenopathy Results Lab Laboratory Tests 04/29/19 05:52 04/30/19 05:20 Assessment/Plan Assessment/Plan Acute respiratory failure - improving - Pt is now on 3 liter NC -Oxygen -SVNs Pneumonia -Hawkins culture -MRSA nasal swab - is negative Afib/flutter -Cardiology following Anemia -Monitor Cellulitis with sepsis -Wound care is following Acute renal failure -Worsening Cr -D/C NSAIDS Anemia -Monitor morbid obesity Hx of DVT -Chronic anticoagulation HX of CVA with residual left sided paralysis AMNA WRIGHT DO Apr 30, 2019 06:39
[2019-04-30] MEDS: NS IV 1000 ML 1,000 ML IV SCH (06:49)
[2019-04-30] MEDS: SUCRALFATE 1 GM (CARAFATE) TAB PO SCH ×4 (06:49→20:22)
[2019-04-30] MEDS: FUROSEMIDE 40 MG/4 ML INJ (LASIX) IVP SCH ×2 (06:49→17:05)
[2019-04-30 08:00] VITALS: BP 142/69
[2019-04-30] MEDS: RT-ADVAIR HFA 115/21 MCG PER PUFF IH SCH ×2 (08:24→18:53)
[2019-04-30] MEDS: APIXABAN 5 MG (ELIQUIS) TABLET PO SCH ×2 (09:41→20:22)
[2019-04-30] MEDS: DRONEDARONE TABLET 400 MG TABLET PO SCH ×2 (09:41→20:22)
[2019-04-30] MEDS: meTOprolol SUCCINATE 100 MG (TOPROL XL) TAB PO SCH (09:41)
[2019-04-30] MEDS: IRON SUCROSE 200 MG/10 ML (VENOFER) VIAL IV SCH (09:41)
[2019-04-30] MEDS: DIGOXIN 0.25 MG (LANOXIN) TAB PO SCH (09:41)
[2019-04-30] MEDS: GABAPENTIN 300 MG (NEURONTIN) CAP PO SCH ×2 (09:41→20:22)
[2019-04-30] MEDS: SENNA W/DOCUSATE (SENOKOT S) TABLET PO SCH ×2 (09:42→20:21)
[2019-04-30] MEDS: POLYETHYLENE GLYCOL 17 GM (MIRALAX) PACK PO SCH ×2 (09:42→21:00)
[2019-04-30] MEDS: DARBEPOETIN 25 MCG/ML (ARANESP) 1 ML HOSPITAL SC SCH (10:59)
[2019-04-30 12:00] VITALS: BP 144/70
--- NOTE | 2019-04-30 12:03 | Progress Note - Hospitalist ---
Subjective HPI/CC On Admission Date Seen by Provider: Apr 30, 2019 Time Seen by Provider: 11:30 Subjective/Events-last exam Patient doing pretty well today No major events overnight Maintain on telemetry to monitor for atrial fibrillation recurrence Seems to be rate controlled Appreciate cardiology Right leg is improving with the wound care per Dr. Hidalgo Check meds and labs Creatinine noted Review of Systems General: Fatigue Musculoskeletal: leg pain Objective Exam Vital Signs Vital Signs Date Time Temp Pulse Resp B/P (MAP) Pulse Ox O2 Delivery O2 Flow Rate FiO2 04/30/19 15:15 90 Nasal Cannula 3.00 04/30/19 13:00 71 04/30/19 12:00 98.0 22 144/70 (94) 04/26/19 08:00 30 Capillary Refill : Less Than 3 Seconds General Appearance: No Apparent Distress, WD/WN, Chronically ill Respiratory: Chest Non Tender, Lungs Clear, Normal Breath Sounds, No Accessory Muscle Use, No Respiratory Distress Cardiovascular: Regular Rate, Rhythm, No Edema, No Gallop, No JVD, No Murmur, Normal Peripheral Pulses Neurologic/Psychiatric: Alert, Oriented x3, No Motor/Sensory Deficits, Normal Mood/Affect Results/Procedures Lab Laboratory Tests 04/30/19 05:20 Patient resulted labs reviewed. Imaging: Reviewed Imaging Films Assessment/Plan Assessment and Plan Assess & Plan/Chief Complaint Assessment: AF w/RVR s/p cardioversion x 2 Morbid obesity CRI JW so refuses blood transfusions DM Right lower leg wound bullous pemphigoid Plan: Cardioversion yesterday for the second time Keep until Wednesday then [facility] back [facility] Poor prognosis long-term given morbid obesity Critical Care Critically Ill Patient Diagnosis/Problems Diagnosis/Problems (1) Atrial fibrillation with rapid ventricular response Status: Acute (2) Bedbound Status: Chronic (3) Insulin dependent diabetes mellitus with complications Status: Chronic (4) BMI 40.0-44.9, adult Status: Chronic (5) ANKIT (obstructive sleep apnea) Status: Chronic (6) Depression Status: Chronic Qualifiers: Depression Type: major depressive disorder Major depression recurrence: unspecified whether recurrent Active/Remission status: remission status unspecified Qualified Codes: F32.9 - Major depressive disorder, single episode, unspecified (7) Respiratory failure Status: Acute Qualifiers: Chronicity: acute Respiratory failure complication: unspecified whether with hypoxia or hypercapnia Qualified Codes: J96.00 - Acute respiratory failure, unspecified whether with hypoxia or hypercapnia (8) Bullous pemphigoid Status: Chronic (9) Ulcer of right leg Status: Acute Clinical Quality Measures DVT/VTE Risk/Contraindication: Risk Factor Score Per Nursin RFS Level Per Nursing on Admit: 4+=Very High ALEJANDRA RUSH DO Apr 30, 2019 12:02
--- NOTE | 2019-04-30 12:38 | Cardiology Progress Note ---
Cardiology SOAP Progress Note Subjective: in sinus rhythm. Objective: I&O/Vital Signs 04/30/19 04/30/19 04/30/19 04/30/19 02:13 04:00 07:00 08:00 Temp 98.3 Pulse 71 71 Resp 20 B/P (MAP) 129/61 (83) Pulse Ox 91 95 O2 Delivery Nasal Cannula High Flow N/C High Flow N/C O2 Flow Rate 3.00 3.00 3.00 04/30/19 04/30/19 04/30/19 04/30/19 08:00 08:23 10:47 12:00 Temp 98.4 98.0 Pulse 72 75 Resp 22 22 B/P (MAP) 142/69 (93) 144/70 (94) Pulse Ox 93 93 90 96 O2 Delivery High Flow N/C Nasal Cannula Nasal Cannula High Flow N/C O2 Flow Rate 3.00 3.00 3.00 3.00 04/30/19 00:00 Intake Total 1560 ml Output Total 1750 ml Balance -190 ml Weight (Pounds): 261 Weight (Ounces): 2.0 Weight (Calculated Kilograms): 118.337200 Constitutional: AAO x 3 Respiratory: No accessory muscle use, No respiratory distress, No chest tender, No chest expansion is symmetric; chest is bilaterally symmetric; No lungs clear to percussion; lungs clear to auscultation; No crackles, No rhonchi, No rales, No stridor, No wheezing, No pleural rub, No other Cardiovascular: regular rate-rhythm; No irregularly irregular, No extra beats, No parasternal heave is noted, No JVD, No edema, No bradycardia, No tachycardia, No point of maximal impulse, No cardiac thrills are palpable; S1 and S2; No gallop/S3, No gallop/S4, No diastolic murmur, No systolic murmur, No friction rub, No click, No other Gastrointestional: No tender, No soft, No round, No distended, No pulsatile mass, No organomegaly, No guarding, No rebound, No tenderness, No hernia, No mass, No audible bowel sounds, No abnormal bowel sounds, No abdominal bruits, No spleenomegaly, No other Extremities: No normal range of motion, No non-tender, No normal inspection, No pedal edema, No calf tenderness, No normal capillary refill, No pelvis stable, No calf tenderness, No inflammation, No pedal edema, No slow capillary refill, No swelling, No other, No abrasion, No clubbing, No cyanosis, No ecchymosis, No laceration, No no lower extremity edema bilateral, No significant edema, No tenderness, No wound Neurologic/Psychiatric: no motor/sensory deficits, alert, normal mood/affect, oriented x 3 Skin: normal color, warm/dry; No cyanosis, No cool, No diaphoresis, No damp, No ecchymosis, No jaundice, No mottled, No pallor, No rash, No tattoos/piercings, No ulcerations, No rash on exposed areas, No ulcerations on exposed areas, No other Results/Procedures: Labs Laboratory Tests 04/29/19 15:49: Glucometer 149H 04/29/19 20:57: Glucometer 274H 04/30/19 05:20: White Blood Count 12.9H, Red Blood Count 2.78L, Hemoglobin 7.3L, Hematocrit 25L, Mean Corpuscular Volume 90, Mean Corpuscular Hemoglobin 26, Mean Corpuscular Hemoglobin Concent 29L, Red Cell Distribution Width 17.6H, Platelet Count 363, Mean Platelet Volume 9.1, Neutrophils (%) (Auto) 84H, Lymphocytes (%) (Auto) 8L, Monocytes (%) (Auto) 6, Eosinophils (%) (Auto) 1, Basophils (%) (Auto) 0, Neutrophils # (Auto) 10.8H, Lymphocytes # (Auto) 1.1, Monocytes # (Auto) 0.8, Eosinophils # (Auto) 0.2, Basophils # (Auto) 0.0, Sodium Level 138, Potassium Level 4.1, Chloride Level 100, Carbon Dioxide Level 27, Anion Gap 11, Blood Urea Nitrogen 25H, Creatinine 2.19H, Estimat Glomerular Filtration Rate 22, BUN/Creatinine Ratio 11, Glucose Level 144H, Calcium Level 8.9, Corrected Calcium 9.8, Total Bilirubin 0.5, Aspartate Amino Transf (AST/SGOT) 28, Alanine Aminotransferase (ALT/SGPT) 21, Alkaline Phosphatase 189H, Total Protein 6.9, Albumin 2.9L 04/30/19 05:42: Glucometer 169H 04/30/19 10:49: Glucometer 230H Microbiology 04/19/19 Blood Culture - Final, Complete Staphylococcus epidermidis Bacillus sp not B. anthracis 04/19/19 MRSA Screen - Final, Complete MRSA not isolated 04/20/19 Urine Culture - Final, Complete YEAST A/P: Assessment/Dx: Acute atrial fibrillation/flutter Acute respiratory failure Sepsis Hypertension Plan: Paroxysmal atrial fibrillation, underwent LIZETH with cardioversion on April 24, 2019, went back to atrial fibrillation was rapid ventricular response, started on Multaq and Cardizem and monitor heart rate, successful cardioversion 04/28/[address] Calderon. Continues to be in sinus rhythm. Chronic anticoagulation for history of DVT, maintained on Eliquis 5 mg twice daily. Sepsis, probably secondary to cellulitis, there is a blister on the right leg with extensive cellulitis, does not appear to be ischemic in nature, had abn ormal TIANNA, arterial ultrasound did not show significant obstructive disease. Dr. Field was consulted. Status post respiratory failure, history of COPD, obesity hypoventilation syndrome. Improving. Has been managed by Dr. Patel, continue on Lasix and mo nitor Anemia, slow drop in H&H, patient refused blood transfusion, started on Arinesp, managed by Dr. Almazan History of Deep venous thrombosis, noted on February 19, 2019 after emergency room visit for chest pain and shortness of breath, continue on Eliquis History of CVA, left-sided paralysis, continue on aspirin with Eliquis. Continue to monitor History of renal failure, chronic kidney disease stage 3-4, seen Dr. Branham in the past.. Continue to monitor Nonobstructive coronary artery disease per cardiac catheterization January 2012, continue to monitor Echocardiogram done on February 19, 2019 showing normal left ventricular size and sy stolic function, ejection fraction 55-65 percent, left atrial dilatation, PA pressure of 20 mmHg. Continue to monitor Hypertension-controlled. Continue monitor blood pressure/heart rate Hyperlipidemia, continue to monitor lipids Obesity Depression Thank you for your consultation. Please call me if you have any questions. Mag Chen MD, FACP, FACC, FSCAI, FHRS, CCDS Interventional Cardiology Cardiac Electrophysiology Vascular Medicine and Endovascular Interventions Shankar CHEN MD Apr 30, 2019 12:38
[2019-04-30 16:01] VITALS: BP 130/77
[2019-04-30] MEDS: PANTOPRAZOLE 40 MG (PROTONIX) TAB PO SCH (17:05)
[2019-04-30] MEDS: ATORVASTATIN 40 MG (LIPITOR) TABLET PO SCH (20:21)
[2019-04-30 21:00] VITALS: BP 131/81
[2019-05-01] VITALS (7 sets, daily range): BP systolic 127–146; BP diastolic 58–78
[2019-05-01] MEDS: NYSTATIN ORAL SUSP 5 ML UDC PO SCH ×4 (00:13→16:34)
[2019-05-01] MEDS: DILTIAZEM 30 MG (CARDIZEM) TAB PO SCH ×2 (00:13→05:25)
[2019-05-01] MEDS: RT-ALBUTEROL/IPRATROPIUM 3 ML (DUONEB) VIAL INH SCH ×6 (02:30→21:41)
[2019-05-01] MEDS: SUCRALFATE 1 GM (CARAFATE) TAB PO SCH ×4 (05:28→21:13)
[2019-05-01 05:31] LABS: BASOPHILS % (AUTO) 0 % (0-10); EOSINOPHILS # (AUTO) 0.1 10^3/uL (0.0-0.3); EOSINOPHILS % (AUTO) 1 % (0-10); HEMATOCRIT 26 % (35-52); HEMOGLOBIN 7.5 G/DL (11.5-16.0); LYMPHOCYTES % (AUTO) 8 % (12-44); MEAN CORPUSCULAR HEMOGLOBIN 26 PG (25-34); MEAN CORPUSCULAR HGB CONC 29 G/DL (32-36); MEAN CORPUSCULAR VOLUME 90 FL (80-99); MONOCYTES # (AUTO) 0.8 X 10^3 (0.0-1.0); MONOCYTES % (AUTO) 6 % (0-12); NEUTROPHILS # (AUTO) 10.4 X 10^3 (1.8-7.8); NEUTROPHILS % (AUTO) 84 % (42-75); PLATELET COUNT 374 10^3/uL (130-400); RED CELL DISTRIBUTION WIDTH 18.5 % (10.0-14.5); WHITE BLOOD COUNT 12.3 10^3/uL (4.3-11.0)
[2019-05-01 06:02] LABS: BILIRUBIN,TOTAL 0.5 MG/DL (0.1-1.0); CALCIUM 8.9 MG/DL (8.5-10.1); CREATININE SERUM 2.17 MG/DL (0.60-1.30); POTASSIUM 4.1 MMOL/L (3.6-5.0); TOTAL PROTEIN 7.1 GM/DL (6.4-8.2)
[2019-05-01] MEDS: inSUlin ASPART (NovoLOG) 1 UNIT/0.01 ML (CHARGE PER UNIT) SQ SCH ×4 (06:28→21:14)
[2019-05-01] MEDS: FUROSEMIDE 40 MG/4 ML INJ (LASIX) IVP SCH ×2 (06:28→16:34)
[2019-05-01] MEDS: RT-ADVAIR HFA 115/21 MCG PER PUFF IH SCH ×2 (07:00→20:32)
[2019-05-01] MEDS: DILTIAZEM 180 MG (CARDIZEM CD) CAP PO SCH (09:00)
[2019-05-01] MEDS: GABAPENTIN 300 MG (NEURONTIN) CAP PO SCH ×2 (09:00→21:17)
[2019-05-01] MEDS: meTOprolol SUCCINATE 100 MG (TOPROL XL) TAB PO SCH (09:00)
[2019-05-01] MEDS: DRONEDARONE TABLET 400 MG TABLET PO SCH ×2 (09:00→21:13)
[2019-05-01] MEDS: NS IV 1000 ML 1,000 ML IV SCH (09:00)
[2019-05-01] MEDS: APIXABAN 5 MG (ELIQUIS) TABLET PO SCH ×2 (09:00→21:13)
[2019-05-01] MEDS: SENNA W/DOCUSATE (SENOKOT S) TABLET PO SCH ×2 (09:01→21:22)
[2019-05-01] MEDS: POLYETHYLENE GLYCOL 17 GM (MIRALAX) PACK PO SCH ×2 (09:01→21:22)
[2019-05-01] MEDS: DIGOXIN 0.25 MG (LANOXIN) TAB PO SCH (09:03)
--- NOTE | 2019-05-01 09:10 | Cardiology Progress Note ---
Subjective Date Seen by Provider: May 01, 2019 Time Seen by Provider: 09:08 Subjective/Events-last exam Patient is laying down in bed, still having some shortness of breath. No chest pain. Review of Systems General: No Chills, No Night Sweats, No Fatigue, No Malaise, No Appetite, No Other HEENT: No Head Aches, No Visual Changes, No Eye Pain, No Ear Pain, No Dysphas ia, No Sinus Congestion, No Post Nasal Drip, No Sore Throat, No Other Pulmonary: Dyspnea; No Cough, No Pleuritic Chest Pain, No Other Cardiovascular: Edema; No: Chest Pain, Palpitations, Orthopnea, Paroxysmal Noc. Dyspnea, Lt Headedness, Other Objective-Cardiology Exam Last Set of Vital Signs Vital Signs 04/30/19 05/01/19 05/01/19 05/01/19 20:00 05:23 07:00 07:01 Temp 98.2 Pulse 73 Resp 18 B/P (MAP) 138/78 (98) Pulse Ox 90 O2 Delivery High Flow N/C O2 Flow Rate 3.00 FiO2 60 Capillary Refill : Less Than 3 SecondsLess Than 3 Seconds I&O Intake and Output 05/01/19 00:00 Intake Total 1630 ml Output Total 2150 ml Balance -520 ml Intake Oral 1630 ml Output Urine Total 2150 ml # Bowel Movements 4 General: Alert, Oriented X3, Cooperative, Mild Distress HEENT: Atraumatic, PERRLA Neck: Supple Lungs: Clear to Auscultation, Normal Air Movement Heart: Regular Rate, Normal S1, Normal S2, No Murmurs Abdomen: Normal Bowel Sounds, Soft, No Tenderness, No Masses Extremities: Other (2+ pitting edema R>L) Skin: Other (cellulitis on the right leg with blister) Neuro: Normal Speech, Sensation Intact Results Lab Laboratory Tests 05/01/19 05:18 A/P-Cardiology Admission Diagnosis Acute atrial fibrillation/flutter Acute respiratory failure Sepsis Hypertension Assessment/Plan Paroxysmal atrial fibrillation, underwent LIZETH with cardioversion on April 24, 2019, went back to atrial fibrillation was rapid ventricular response this morning, on Multaq and Cardizem, continue to monitor Chronic anticoagulation for history of DVT, maintained on Eliquis 5 mg twice daily. Sepsis, probably secondary to cellulitis, there is a blister on the right leg with extensive cellulitis, does not appear to be ischemic in nature, had abnormal TIANNA, arterial ultrasound did not show significant obstructive disease. Dr. Field was consulted. Status post respiratory failure, history of COPD, obesity hypoventilation syndrome. Improving. Has been managed by Dr. Patel, continue on Lasix and monitor Anemia, slow drop in H&H, patient refused blood transfusion, started on Arinesp, managed by Dr. Almazan History of Deep venous thrombosis, noted on February 19, 2019 after emergency room visit for chest pain and shortness of breath, continue on Eliquis History of CVA, left-sided paralysis, continue on aspirin with Eliquis. Continue to monitor History of renal failure, chronic kidney disease stage 3-4, seen Dr. Branham in the past.. Continue to monitor Nonobstructive coronary artery disease per cardiac catheterization January 2012, continue to monitor Echocardiogram done on February 19, 2019 showing normal left ventricular size and systolic function, ejection fraction 55-65 percent, left atrial dilatation, PA pressure of 20 mmHg. Continue to monitor Hypertension-controlled. Continue monitor blood pressure/heart rate Hyperlipidemia, continue to monitor lipids Obesity Depression Clinical Quality Measures DVT/VTE Risk/Contraindication: Risk Factor Score Per Nursin RFS Level Per Nursing on Admit: 4+=Very High FARAZ ALCALA MD May 01, 2019 09:10
--- NOTE | 2019-05-01 09:37 | Physical Therapy Daily Note ---
PT Daily Note-Current Subjective Patient agrees to PT. She states she wants to go home. Pain Numeric Pain Scale: 0-No Pain Location: No Pain Reported Mental Status Patient Orientation: Normal For Age Attachments: Oxygen, Aguiar Catheter Transfers Therapy Code Descriptions/Definitions Functional [place] Measure: 0=Not Assessed/NA 4=Minimal Assistance 1=Total Assistance 5=Supervision or Setup 2=Maximal Assistance 6=Modified [place] 3=Moderate Assistance 7=Complete [place] Therapy Quality Codes: 6 Independent with activity with or without an assistive device 5 Patient requires set up or clean up by helper. Patient completes activity by themselves 4 Supervision or touching assist (CGA). Alden provide cues , steadying assist 3 The helper provides less than half the effort to complete the activity 2 The helper provides more than half the effort to complete the activity 1 Dependent. The helper does all the effort to complete an activity 7 Patient refused to complete or attempt activity 9 The patient did not perform the activity before the current illness or injury 88 Not attempted due to Medical conditions or safety concerns Exercises Supine Ex: Ankle pumps, Quad Set, Heel Slides, Straight leg raise, Hip abd/add Supine Reps: 10 (2 sets (AROM right LE/PROM left LE)) Assessment Patient tolerated treatment and is repositioned with pillows under bilateral LE to relieve heel pressure. PT Foundry Manager Goals Prison Goals PT Prison Goals Time Frame: May 06, 2019 Transfers (B,C,W/C) (FIM): 2 PT Plan Treatment/Plan Treatment Plan: Continue Plan of Care Treatment Plan: Bed Mobility, Education, Functional Activity Vick, Functional Strength, Safety, Therapeutic Exercise, Transfers Treatment Duration: May 06, 2019 Frequency: 5 times per week Estimated Hrs Per Day: .25 hour per day Patient and/or Family Agrees t: Yes Time/GCodes Time In: 905 Time Out: 915 Total Billed Treatment Time: 10 Total Billed Treatment 1 visit EX 10 min MICHAEL ADAN PT May 01, 2019 09:37
[2019-05-01] MEDS: DARBEPOETIN 25 MCG/ML (ARANESP) 1 ML HOSPITAL SC SCH (12:59)
--- NOTE | 2019-05-01 13:32 | NUR ---
PATIENT WAS PLACED ON ROOM AIR FOE 30 MIN. SAT DROPPED TO 82% PATIENT WAS UNABLE TO EXERCISE SO WAS PLACED BACK ON 3L/M CANNULA Addendum: 05/01/19 at 1333 by MAX BARNETT RT Amended: Links added.
--- NOTE | 2019-05-01 14:37 | Occupational Ther Daily Note ---
OT Current Status-Daily Note Subjective Pt alert, lying in bed. Pt is anxious about going home, but does not want to go home with oxygen. No c/o pain at this time. Mental Status/Objective Patient Orientation: Person, Place, Time, Situation Therapy Code Descriptions/Definitions Functional [place] Measure: 0=Not Assessed/NA 4=Minimal Assistance 1=Total Assistance 5=Supervision or Setup 2=Maximal Assistance 6=Modified [place] 3=Moderate Assistance 7=Complete [place] Other Treatment UE medium resistance theraband exercises for R UE due to L UE flaccid from previous CVA. Pt able to complete 3 exercises with R UE, SOA noted throughout exercises. Theraband given to pt. After therapy, pt lying in bed with call light/phone in reach. All needs met in room. Education OT Patient Education: Exercise program Teaching Recipient: Patient Teaching Methods: Demonstration, Discussion Response to Teaching: Verbalize Understanding, Return Demonstration, Reinforcement Needed OT Short Term Goals Short Term Goals Grooming(FIM): 4 1=Demonstrate adherence to instructed precautions during ADL tasks. 2=Patient will verbalize/demonstrate understanding of assistive devices/modifications for ADL. 3=Patient will improve strength/tolerance for activity to enable patient to perform ADL's. OT Carousel Attendant Goals Chcf Goals Grooming(FIM): 5 Additional Goals: 1-Demonstrate ADL Tasks, 2-Verbalize Understanding, 3- ImproveStrength/Vick 1=Demonstrate adherence to instructed precautions during ADL tasks. 2=Patient will verbalize/demonstrate understanding of assistive devices/modifications for ADL. 3=Patient will improve strength/tolerance for activity to enable patient to perform ADL's. OT Education/Plan Problem List/Assessment Assessment: Decreased Activ Tolerance, Decreased UE Strength, Restricted Funct UE ROM Discharge Recommendations Plan/Recommendations: Continue POC Treatment Plan/Plan of Care Patient would benefit from OT for education, treatment and training to promote independence in ADL's, mobility, safety and/or upper extremity function for ADL's. Plan of Care: ADL Retraining, Functional Mobility, Group Exercise/Act as Ind, UE Funct Exercise/Act Treatment Duration: May 02, 2019 Frequency: 5 times per week Estimated Hrs Per Day: .25 hour per day Agreement: Yes Rehab Potential: Guarded Time/GCodes Start Time: 14:25 Stop Time: 14:35 Total Time Billed (hr/min): 10 Billed Treatment Time 1 visit-EX 1 (10 min) JARROD OLIVARES May 01, 2019 14:37
[2019-05-01] MEDS ORDERED: DILT180C90 PO (14:48)
[2019-05-01] MEDS ORDERED: DARB25VI SC (14:48)
[2019-05-01] MEDS ORDERED: DIGO250T15 PO (14:48)
[2019-05-01] MEDS ORDERED: FURO40TA4 PO (14:48)
[2019-05-01] MEDS ORDERED: SUCR1TAB PO (14:48)
[2019-05-01] MEDS ORDERED: DRON400T2 PO (14:48)
--- NOTE | 2019-05-01 14:51 | Pulmonary Progress Note ---
Sepsis Event Evaluation Height, Weight, BMI Height: 5'6.00" Weight: 260lbs. 0.0oz. 117.241141ux; 43.6 BMI Method:Stated Exam Exam Vital Signs Date Time Temp Pulse Resp B/P (MAP) Pulse Ox O2 Delivery O2 Flow Rate FiO2 05/01/19 14:44 90 High Flow N/C 3.00 05/01/19 13:29 90 3.00 05/01/19 12:28 80 05/01/19 12:00 97.9 75 22 135/61 (85) 94 High Flow N/C 3.00 05/01/19 11:26 90 High Flow N/C 3.00 05/01/19 08:00 High Flow N/C 3.00 05/01/19 08:00 98.1 92 22 146/58 (87) 93 High Flow N/C 3.00 05/01/19 07:01 90 High Flow N/C 3.00 05/01/19 07:00 73 05/01/19 05:23 98.2 77 18 138/78 (98) 93 05/01/19 04:00 98.2 05/01/19 02:29 High Flow N/C 3.00 05/01/19 01:00 72 05/01/19 00:00 98.2 72 20 128/78 (95) High Flow N/C 3.00 04/30/19 22:07 90 High Flow N/C 3.00 04/30/19 21:00 98.1 72 20 131/81 (98) 95 High Flow N/C 3.00 04/30/19 20:00 90 High Flow N/C 3.00 60 04/30/19 19:01 93 High Flow N/C 3.00 04/30/19 19:00 68 04/30/19 18:53 93 High Flow N/C 3.00 04/30/19 16:01 99.0 71 22 130/77 (94) 93 High Flow N/C 3.00 04/30/19 15:15 90 Nasal Cannula 3.00 I & O 05/01/19 07:00 Intake Total 1330 ml Output Total 2550 ml Balance -1220 ml Height & Weight Height: 5'6.00" Weight: 260lbs. 0.0oz. 117.684416sn; 43.6 BMI Method:Stated General Appearance: No Apparent Distress, WD/WN, Chronically ill HEENT: Normal ENT Inspection Neck: Normal Inspection Respiratory: Chest Non Tender, Lungs Clear, Normal Breath Sounds, No Accessory Muscle Use, No Respiratory Distress Cardiovascular: Regular Rate, Rhythm, No Edema, No Gallop, No JVD, No Murmur, Normal Peripheral Pulses Capillary Refill: Less Than 3 Seconds Gastrointestinal: normal bowel sounds, non tender Extremity: Pedal Edema (much improved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: Alert, Oriented x3, No Motor/Sensory Deficits, Normal Mood/Affect Skin: Normal Color, Warm/Dry Lymphatic: No Adenopathy Results Lab Laboratory Tests 04/30/19 05:20 05/01/19 05:18 Assessment/Plan Assessment/Plan Acute respiratory failure - improving - Pt is now on 3 liter NC -Oxygen -SVNs Pneumonia -Hawkins culture -MRSA nasal swab - is negative Afib/flutter -Cardiology following Anemia -Monitor Cellulitis with sepsis -Wound care is following Acute renal failure Anemia -Monitor morbid obesity Hx of DVT -Chronic anticoagulation HX of CVA with residual left sided paralysis AMNA WRIGHT DO May 01, 2019 14:51
--- NOTE | 2019-05-01 15:03 | Discharge Inst-Skilled Nursing ---
Discharge Inst-Skilled NF Patient Instructions Patient Problems: Atrial fibrillation Congestive heart failure Hypoxia Cellulitis/Leg wound Anemia Chronic kidney disease Diabetes mellitus type II Consult/Follow Up/Orders Follow up appt.: Follow up with Cardiology as directed. Skilled NF Admit to: [facility] Certifications SNF I certify that SNF services are required to be given on an inpatient basis because of the above named patient's need for senior care care on a continuing basis for the conditions(s) for which he/she was receiving inpatient hospital services prior to his/her transfer to the SNF. Assisted Facility Order: Nursing Services, Train Inspector-Evaluate & Treat, Physical Therapy-Evaluate & Treat, Speech Language-Evaluate & Treat, Wound Care-Eval/Treat Oxygen Delivery Method: High Flow N/C Discharge Diet: ADA Diet Daily Activity as Tolerated: Yes New & Resume Previous Orders Other Instructions Weekly CBC with Aranesp injection, results to Hematology. Discharge Medications New, Converted or Re-Newed RX: Transmitted to Pharmacy New Medications: Furosemide (Furosemide) 40 Mg Tablet 40 MG PO DAILY, #30 TAB 0 Refills Darbepoetin He in Polysorbat (Aranesp) 25 Mcg/1 Ml Vial 20 MCG SC WEEK, #4 VIAL 0 Refills Digoxin (Digox) 250 Mcg Tablet 0.25 MG PO DAILY, #30 TAB 0 Refills Diltiazem HCl (Diltiazem 24Hr Cd) 180 Mg Cap.er.24h 180 MG PO DAILY, #30 CAP 0 Refills Dronedarone HCl (Multaq) 400 Mg Tablet 400 MG PO BID, #60 TAB 0 Refills Sucralfate (Sucralfate) 1 Gm Tablet 1 GM PO ACHS, #120 TAB 0 Refills Continued Medications: Acetaminophen (Acetaminophen) 500 Mg Tablet 1000 MG PO Q6H PRN for PAIN-MILD OR TEMPATURE, TAB Albuterol Sulfate (Albuterol Sulfate) 2.5 Mg/3 Ml Vial.neb 2.5 MG NEB Q4H PRN for WHEEZING, EA Apixaban (Eliquis) 5 Mg Tablet 5 MG PO BID, TAB Aspirin (Aspirin EC) 81 Mg Tablet.dr 81 MG PO BID, TAB Atorvastatin Calcium (Atorvastatin Calcium) 40 Mg Tablet 40 MG PO 1800, TAB B Complex with Vitamin C (Super B Complex-Vitamin C) 1 Each Tablet 1 TAB PO DAILY, TAB Bethanechol Chloride (Urecholine) 10 Mg Tablet 10 MG PO BID, TAB Bisacodyl (Bisacodyl) 10 Mg Supp.rect 10 MG RC DAILY PRN for CONSTIPATION-4TH LINE, SUPP.RECT [Blood Sugar 360] () 1 CAP PO UD PRN for BLOOD SUGAR MAINTENANCE, CAP Budesonide/Formoterol Fumarate (Symbicort 160-4.5 Mcg Inhaler) 10.2 Gm Hfa.aer.ad 2 PUFF IH BID, INHALER Cholecalciferol (Vitamin D) 5,000 Unit Capsule 5000 UNIT PO HS, CAP Cinnamon Bark (Cinnamon) 500 Mg Capsule 1000 MG PO DAILY, CAP TAKES 2 (500 MG) CAPSULES Citalopram Hydrobromide (Citalopram HBr) 10 Mg Tablet 10 MG PO DAILY, TAB Cranberry Extract (Cranberry) 500 Mg Tablet 1000 MG PO DAILY, TAB [digize oil] () TOP UD PRN for DIGESTIVE DIFFICULTIES, EA MAY BE USED TOPICALLY OR DABBED INSIDE MOUTH ON CHEEK, KEEP AT BEDSIDE AND SELF ADMINISTER FOR DIGESTIVE DIFFICULTIES. Docusate Sodium (Colace) 100 Mg Capsule 100 MG PO BID, CAP Dulaglutide (Trulicity) 1.5 Mg/0.5 Ml Pen.injctr 1.5 MG SQ We, EA Empagliflozin (Jardiance) 10 Mg Tablet 10 MG PO DAILY, TAB Ferrous Sulfate (Iron) 325 Mg Tablet 325 MG PO DAILY, TAB Fluticasone Propionate (Fluticasone Propionate) 16 Gm Farson.susp 2 SPRAYS NS DAILY, EA Gabapentin (Gabapentin) 300 Mg Capsule 300 MG PO BID, CAP Gluc Angulo/Chondro Angulo A/Vit C/Mn (Glucosamine Chondroitin Tab) 1 Each Tablet 2 TAB PO DAILY, TAB Guaifenesin/Dextromethorphan (Lorraine-Tussin Dm Syrup) 473 Ml Syrup 10 ML PO Q4H PRN for COUGH, ML Insulin Detemir (Levemir Flextouch) 100 Unit/1 Ml Insuln.pen 45 UNIT SQ BID, EA Magnesium Hydroxide (Milk of Magnesia) 400 Mg/5 Ml Oral.susp 30 ML PO DAILY PRN for CONSTIPATION-7TH LINE, ML Melatonin (Melatonin) 3 Mg Tablet 3 MG PO HS, TAB Metoprolol Succinate (Metoprolol Succinate) 100 Mg Tab.er.24h 100 MG PO DAILY, TAB HOLD FOR SYSTOLIC BP <100 AND HEART RATE <60 Miconazole Nitrate (Miconazole Nitrate) 10 Gm Powder TOP BID, EA APPLY TO GROIN AND UNDER BREASTS Multivits W-Fe,Other Min/Lut (Essential Balance Tablet) 1 Each Tablet 1 TAB PO TID, TAB Mark-3/Dha/Epa/Fish Oil (Mark 3 500 Softgel) 1 Each Capsule 2 CAP PO DAILY, CAP Pantoprazole Sodium (Pantoprazole Sodium) 40 Mg Tablet.dr 40 MG PO 1400, TAB Phenyleph/Mineral Oil/Petrolat (Gs Hemorrhoidal Ointment) 57 Gm Oint.appl RC Q12H PRN for HEMORRHOIDS, TUBE Sodium Chloride (Elmore) 104 Ml Farson 2 SPRAYS NS Q4H PRN for DRY NOSE, SPRAY Valerian Root (Valerian Root) 500 Mg Capsule 530 MG PO DAILY PRN for ANXIETY, CAP Discontinued Medications: Amlodipine Besylate (Amlodipine Besylate) 5 Mg Tablet 5 MG PO DAILY, TAB HOLD IF SYSTOLIC <110 Eusebio Potter May 01, 2019 14:51 EUSEBIO POTTER MD May 01, 2019 14:56
--- NOTE | 2019-05-01 16:19 | NUR ---
CM/SS. Final discharge planning for patient to return [facility]. Aranesp was recommended by Dr Min for patient sub-q injection once weekly. Explored with SNF who reported cost to be $816 for 4 doses which they indicated they could not provide. Explored Epogen, Procrit, and Retacrit with P RN/Marybeth Azar and Synthetic Resin Operator who then indicated they could provide Epogen or Retacrit as part of patient skilled care plan. Updated PCP that Drs. Stpaleton and Hector are on for Dr. Min for consult as needed. [facility] could not accept patient today due to late p.m. discharge relative to Rx ordering and preparation for patient. PCP and Unit RN aware. Faxed tentative discharge orders, new home O2 RT study, and wound care notes to [facility] as a courtesy, followup tomorrow with final orders.
[2019-05-01] MEDS: PANTOPRAZOLE 40 MG (PROTONIX) TAB PO SCH (16:34)
[2019-05-01] MEDS: ATORVASTATIN 40 MG (LIPITOR) TABLET PO SCH (21:13)
--- NOTE | 2019-05-01 21:34 | Progress Note ---
Subjective Subjective/Events-last exam Afebrile, hoping to go home. Objective Exam Last Set of Vital Signs Vital Signs Date Time Temp Pulse Resp B/P (MAP) Pulse Ox O2 Delivery O2 Flow Rate FiO2 05/01/19 20:02 98.4 74 22 127/75 (92) 94 High Flow N/C 3.00 04/30/19 20:00 60 Capillary Refill : Less Than 3 SecondsLess Than 3 Seconds I&O Intake and Output 05/01/19 00:00 Intake Total 1630 ml Output Total 2150 ml Balance -520 ml Intake Oral 1630 ml Output Urine Total 2150 ml # Bowel Movements 4 General: Alert, No Acute Distress Lungs: Clear to Auscultation, Normal Air Movement Heart: Regular Rate, No Murmurs Extremities: Other (right lower leg with mild erythema with no swelling remaining, dressing in place) Neuro: Normal Speech Psych/Mental Status: Mental Status NL Results/Procedures Lab Laboratory Tests 04/30/19 21:34: Glucometer 166H 05/01/19 05:18: White Blood Count 12.3H, Red Blood Count 2.88L, Hemoglobin 7.5L, Hematocrit 26L, Mean Corpuscular Volume 90, Mean Corpuscular Hemoglobin 26, Mean Corpuscular Hemoglobin Concent 29L, Red Cell Distribution Width 18.5H, Platelet Count 374, Mean Platelet Volume 9.0, Neutrophils (%) (Auto) 84H, Lymphocytes (%) (Auto) 8L, Monocytes (%) (Auto) 6, Eosinophils (%) (Auto) 1, Basophils (%) (Auto) 0, Neutrophils # (Auto) 10.4H, Lymphocytes # (Auto) 1.0, Monocytes # (Auto) 0.8, Eosinophils # (Auto) 0.1, Basophils # (Auto) 0.0, Sodium Level 139, Potassium Level 4.1, Chloride Level 101, Carbon Dioxide Level 27, Anion Gap 11, Blood Urea Nitrogen 24H, Creatinine 2.17H, Estimat Glomerular Filtration Rate 22, BUN/Creatinine Ratio 11, Glucose Level 138H, Calcium Level 8.9, Corrected Calcium 9.7, Total Bilirubin 0.5, Aspartate Amino Transf (AST/SGOT) 37H, Alanine Aminotransferase (ALT/SGPT) 29, Alkaline Phosphatase 243H, Total Protein 7.1, Albumin 3.0L 05/01/19 11:26: Glucometer 283H 05/01/19 16:25: Glucometer 184H 05/01/19 20:39: Glucometer 184H Microbiology 04/19/19 Blood Culture - Final, Complete Staphylococcus epidermidis Bacillus sp not B. anthracis 04/19/19 MRSA Screen - Final, Complete MRSA not isolated 04/20/19 Urine Culture - Final, Complete YEAST Assessment/Plan Assessment/Plan (1) Cellulitis of leg without foot, right Status: Acute Assessment & Plan: -Markedly improved, swelling down. Xeroform dressings to ulceration after blister unroofed per Dr. Hidalgo. Arterial US wtih moderate narrowing of right profunda femoris. (2) Insulin dependent diabetes mellitus with complications Status: Chronic (3) Normocytic anemia Status: Chronic Assessment & Plan: - Iron studies pending, will start venofer 04/21: Iron Deficiency, Continue IV replacement 05/01- persistent anemia, does not want transfusions, was started on Aranesp per Hematology. (4) Paroxysmal atrial fibrillation Status: Acute Assessment & Plan: s/p cardioversion x 2. Management per Cardiology. On Multaq, Cardizem, digoxin. Was already on Eliquis due to history of DVT. (5) Depression Status: Chronic Assessment & Plan: - Continue home meds Qualifiers: Qualified Codes: F32.9 - Major depressive disorder, single episode, unspec ified (6) ANKIT (obstructive sleep apnea) Status: Chronic Assessment & Plan: - Noncompliant with CPAP, states that she can not sleep, continue oxygen at night (7) History of CVA (cerebrovascular accident) Status: Chronic (8) Bedbound Status: Chronic (9) BMI 40.0-44.9, adult Status: Chronic (10) Chronic kidney disease Status: Chronic (11) DVT prophylaxis Status: Acute Assessment & Plan: - Will continue Eliquis Clinical Quality Measures DVT/VTE Risk/Contraindication: Risk Factor Score Per Nursin RFS Level Per Nursing on Admit: 4+=Very High EUSEBIO WARD MD May 01, 2019 21:34
[2019-05-02] MEDS: NYSTATIN ORAL SUSP 5 ML UDC PO SCH ×2 (00:12→05:25)
[2019-05-02] MEDS: RT-ALBUTEROL/IPRATROPIUM 3 ML (DUONEB) VIAL INH SCH ×3 (02:40→11:05)
[2019-05-02 04:00] VITALS: BP 120/73
[2019-05-02] MEDS: SUCRALFATE 1 GM (CARAFATE) TAB PO SCH ×2 (05:25→11:41)
[2019-05-02] MEDS: FUROSEMIDE 40 MG/4 ML INJ (LASIX) IVP SCH (05:26)
[2019-05-02] MEDS: inSUlin ASPART (NovoLOG) 1 UNIT/0.01 ML (CHARGE PER UNIT) SQ SCH ×2 (05:26→11:41)
[2019-05-02 06:14] LABS: BASOPHILS # (AUTO) 0.1 10^3/uL (0.0-0.1); BASOPHILS % (AUTO) 0 % (0-10); EOSINOPHILS # (AUTO) 0.1 10^3/uL (0.0-0.3); EOSINOPHILS % (AUTO) 1 % (0-10); HEMATOCRIT 25 % (35-52); HEMOGLOBIN 7.2 G/DL (11.5-16.0); LYMPHOCYTES # (AUTO) 1.1 X 10^3 (1.0-4.0); LYMPHOCYTES % (AUTO) 9 % (12-44); MEAN CORPUSCULAR HEMOGLOBIN 26 PG (25-34); MEAN CORPUSCULAR HGB CONC 29 G/DL (32-36); MEAN CORPUSCULAR VOLUME 91 FL (80-99); MEAN PLATELET VOLUME 9.3 FL (7.4-10.4); MONOCYTES % (AUTO) 8 % (0-12); NEUTROPHILS # (AUTO) 10.1 X 10^3 (1.8-7.8); NEUTROPHILS % (AUTO) 82 % (42-75); PLATELET COUNT 382 10^3/uL (130-400); RED CELL DISTRIBUTION WIDTH 18.1 % (10.0-14.5); WHITE BLOOD COUNT 12.3 10^3/uL (4.3-11.0)
[2019-05-02 06:42] LABS: BILIRUBIN,TOTAL 0.5 MG/DL (0.1-1.0); CALCIUM 9.1 MG/DL (8.5-10.1); CREATININE SERUM 2.46 MG/DL (0.60-1.30); POTASSIUM 4.2 MMOL/L (3.6-5.0); TOTAL PROTEIN 7.3 GM/DL (6.4-8.2)
[2019-05-02] MEDS: RT-ADVAIR HFA 115/21 MCG PER PUFF IH SCH (07:08)
[2019-05-02 08:00] VITALS: BP 140/65
--- NOTE | 2019-05-02 08:13 | Cardiology Progress Note ---
Subjective Date Seen by Provider: May 02, 2019 Time Seen by Provider: 08:11 Subjective/Events-last exam Patient is in bed, still having some dyspnea, no chest pain Review of Systems General: No Chills, No Night Sweats, No Fatigue; Malaise; No Appetite, No Other HEENT: No Head Aches, No Visual Changes, No Eye Pain, No Ear Pain, No Dysphasia, No Sinus Congestion, No Post Nasal Drip, No Sore Throat, No Other Pulmonary: Dyspnea; No Cough, No Pleuritic Chest Pain, No Other Cardiovascular: No: Chest Pain, Palpitations, Orthopnea, Paroxysmal Noc. Dyspnea, Edema, Lt Headedness, Other Objective-Cardiology Exam Last Set of Vital Signs Vital Signs 04/30/19 05/02/19 05/02/19 05/02/19 20:00 04:00 07:00 07:06 Temp 98.0 Pulse 78 Resp 20 B/P (MAP) 120/73 (89) Pulse Ox 90 O2 Delivery Nasal Cannula O2 Flow Rate 3.00 FiO2 60 Capillary Refill : Less Than 3 SecondsLess Than 3 Seconds I&O Intake and Output 05/02/19 00:00 Intake Total 1800 ml Output Total 2150 ml Balance -350 ml Intake Oral 1800 ml Output Urine Total 2150 ml # Bowel Movements 3 General: Alert, Oriented X3, Cooperative, No Acute Distress HEENT: Atraumatic, PERRLA Neck: Supple Lungs: Clear to Auscultation, Normal Air Movement Heart: Regular Rate, Normal S1, Normal S2, No Murmurs Abdomen: Normal Bowel Sounds, Soft, No Tenderness, No Masses Extremities: No Clubbing, Other (right lower leg with mild erythema with no swelling remaining, dressing in place) Skin: Other (cellulitis on the right leg with blister) Neuro: Normal Speech Psych/Mental Status: Mental Status NL Results Lab Laboratory Tests 05/02/19 05:51 A/P-Cardiology Admission Diagnosis Acute atrial fibrillation/flutter Acute respiratory failure Sepsis Hypertension Assessment/Plan Paroxysmal atrial fibrillation, underwent LIZETH with cardioversion on April 24, 2019, went back to atrial fibrillation was rapid ventricular response this morning, on Multaq and Cardizem, continue to monitor Chronic anticoagulation for history of DVT, maintained on Eliquis 5 mg twice daily. Sepsis, probably secondary to cellulitis, there is a blister on the right leg with extensive cellulitis, does not appear to be ischemic in nature, had abnormal TIANNA, arterial ultrasound did not show significant obstructive disease. Dr. Field was consulted. Status post respiratory failure, history of COPD, obesity hypoventilation syndrome. Improving. Has been managed by Dr. Patel, continue on Lasix and monitor Anemia, slow drop in H&H, patient refused blood transfusion, started on Arinesp, managed by Dr. Almazan History of Deep venous thrombosis, noted on February 19, 2019 after emergency room visit for chest pain and shortness of breath, continue on Eliquis History of CVA, left-sided paralysis, continue on aspirin with Eliquis. Continue to monitor History of renal failure, chronic kidney disease stage 3-4, seen Dr. Branham in the past.. Continue to monitor Nonobstructive coronary artery disease per cardiac catheterization January 2012, continue to monitor Echocardiogram done on February 19, 2019 showing normal left ventricular size and systolic function, ejection fraction 55-65 percent, left atrial dilatation, PA pressure of 20 mmHg. Continue to monitor Hypertension, good control, continue to monitor Hyperlipidemia, continue to monitor lipids Obesity Depression Clinical Quality Measures DVT/VTE Risk/Contraindication: Risk Factor Score Per Nursin RFS Level Per Nursing on Admit: 4+=Very High FARAZ ALCALA MD May 02, 2019 08:13
[2019-05-02] MEDS: APIXABAN 5 MG (ELIQUIS) TABLET PO SCH (09:20)
[2019-05-02] MEDS: DIGOXIN 0.25 MG (LANOXIN) TAB PO SCH (09:20)
[2019-05-02] MEDS: GABAPENTIN 300 MG (NEURONTIN) CAP PO SCH (09:20)
[2019-05-02] MEDS: meTOprolol SUCCINATE 100 MG (TOPROL XL) TAB PO SCH (09:20)
[2019-05-02] MEDS: DILTIAZEM 180 MG (CARDIZEM CD) CAP PO SCH (09:20)
[2019-05-02] MEDS: DRONEDARONE TABLET 400 MG TABLET PO SCH (09:20)
[2019-05-02] MEDS: POLYETHYLENE GLYCOL 17 GM (MIRALAX) PACK PO SCH (10:22)
[2019-05-02] MEDS: SENNA W/DOCUSATE (SENOKOT S) TABLET PO SCH (10:22)
[2019-05-02] MEDS ORDERED: [UNRECOGNIZED DRUG - CODE] IJ (10:26)
[2019-05-02] MEDS: NS IV 1000 ML 1,000 ML IV SCH (10:36)
[2019-05-02 11:43] VITALS: BP 143/61
--- NOTE | 2019-05-02 15:35 | NUR ---
CM/SS. Patient was returned to established placement with [facility] Medicare skilled status via their transport this p.m. Facility brought wheelchair, O2, and clothing as requested. Faxed orders to SNF, prepared packet to accompany patient. Unit RN fully updated about arrangements.
--- NOTE | 2019-05-02 21:02 | Discharge Summary ---
Diagnosis/Chief Complaint Date of Admission Apr 19, 2019 at 13:38 Date of Discharge May 02, 2019 at 13:25 Admission Diagnosis Admission Diagnosis (1) Sepsis (2) Cellulitis of leg without foot, right (3) Urinary tract infection (4) Insulin dependent diabetes mellitus with complications (5) Normocytic anemia (6) Depression (7) ANKIT (obstructive sleep apnea) (8) History of CVA (cerebrovascular accident) (9) Bedbound (10) BMI 40.0-44.9, adult Discharge Diagnosis See problem list Problems/Diagnosis: (1) Cellulitis of leg without foot, right Assessment & Plan: -Markedly improved, swelling down. Xeroform dressings to ulceration after blister unroofed per Dr. Hidalgo. Arterial US with moderate narrowing of right profunda femoris. Completed 7 days of zosyn. Status: Acute (2) Insulin dependent diabetes mellitus with complications Status: Chronic (3) Normocytic anemia Assessment & Plan: - Iron studies pending, will start venofer 04/21: Iron Deficiency, Continue IV replacement 05/02- persistent anemia, does not want transfusions, was started on Aranesp per Hematology. Discharged on Retacrit per payer needs. Weekly CBC ordered to be sent to Hematology. Status: Chronic (4) Paroxysmal atrial fibrillation Assessment & Plan: s/p cardioversion x 2. Management per Cardiology. On Multaq, Cardizem, digoxin. Was already on Eliquis due to history of DVT. Status: Acute (5) Depression Assessment & Plan: - Continue home meds Qualifiers: Qualified Codes: F32.9 - Major depressive disorder, single episode, unspecified Status: Chronic (6) ANKIT (obstructive sleep apnea) Assessment & Plan: - Noncompliant with CPAP, states that she can not sleep, continue oxygen at night Status: Chronic (7) History of CVA (cerebrovascular accident) Status: Chronic (8) Bedbound Status: Chronic (9) BMI 40.0-44.9, adult Status: Chronic (10) Chronic kidney disease Status: Chronic Chief Complaint/HPI Chief Complaint/HPI Right redness and pain that started about 2 weeks ago that has been getting worse. Started on the thigh and now had redness and pain down into her leg and foot. Denies any fever or chills until yesterday. Discharge Summary-Simple/Stand Consultations Discharge Physical Examination Allergies: Coded Allergies: sulfamethoxazole (Verified Allergy, Unknown, 10/13/17) trimethoprim (Verified Allergy, Unknown, 10/13/17) Vitals & I&Os Vital Sign - Last 12Hours Date Time Temp Pulse Resp B/P (MAP) Pulse Ox O2 Delivery O2 Flow Rate FiO2 05/02/19 12:35 05/02/19 12:26 77 05/02/19 11:43 97.6 19 93 Nasal Cannula 3.00 04/30/19 20:00 60 Intake and Output 05/02/19 00:00 Intake Total 1400 ml Output Total 1250 ml Balance 150 ml General Appearance: Alert, No Acute Distress Respiratory: Clear to Auscultation, Normal Air Movement Hospital Course See final discharge diagnosis. Discharge Instructions to patient/family Please see electronic discharge instructions given to patient. Discharge Medications Reviewed and agree with Discharge Medication list on patient's Discharge Instruction sheet Clinical Quality Measures DVT/VTE Risk/Contraindication: Risk Factor Score Per Nursin RFS Level Per Nursing on Admit: 4+=Very High EUSEBIO WARD MD May 02, 2019 21:02
== END 2019-05-02 13:25 | DRG 871 ==
LOC: EDUNIT# 10:14 → ER 10:16 → ICU 13:38 → 4TH 17:47 → ICU 04-22 06:50 → 4TH 04-25 09:08
PROVIDERS: ADMIT Family Medicine; ATTEND Family Medicine
PROC: 5A2204Z Restoration of Cardiac Rhythm, Single (ICD-10-PCS; principal; 2019-04-24)
DX: A41.9 Sepsis, unspecified organism (principal); L03.115 Cellulitis of right lower limb; N30.01 Acute cystitis with hematuria; J96.00 Acute respiratory failure, unspecified whether with hypoxia or hypercapnia; J18.9 Pneumonia, unspecified organism; J44.0 Chronic obstructive pulmonary disease with (acute) lower respiratory infection; Z68.41 Body mass index [BMI] 40.0-44.9, adult; I69.354 Hemiplegia and hemiparesis following cerebral infarction affecting left non-dominant side; N17.9 Acute kidney failure, unspecified; I48.0 Paroxysmal atrial fibrillation; I50.9 Heart failure, unspecified; I13.0 Hypertensive heart and chronic kidney disease with heart failure and stage 1 through stage 4 chronic kidney disease, or unspecified chronic kidney disease; N18.4 Chronic kidney disease, stage 4 (severe); B37.41 Candidal cystitis and urethritis; B37.0 Candidal stomatitis; L12.0 Bullous pemphigoid; L97.219 Non-pressure chronic ulcer of right calf with unspecified severity; D63.1 Anemia in chronic kidney disease; I69.391 Dysphagia following cerebral infarction; I69.321 Dysphasia following cerebral infarction; E66.01 Morbid (severe) obesity due to excess calories; D50.9 Iron deficiency anemia, unspecified; I25.10 Atherosclerotic heart disease of native coronary artery without angina pectoris; E11.9 Type 2 diabetes mellitus without complications; E78.00 Pure hypercholesterolemia, unspecified; K21.9 Gastro-esophageal reflux disease without esophagitis; F44.4 Conversion disorder with motor symptom or deficit; F41.9 Anxiety disorder, unspecified; F32.9 Major depressive disorder, single episode, unspecified; I89.0 Lymphedema, not elsewhere classified
CPT/HCPCS: 36415; 36600; 71045; 80048; 80053; 80162; 81000; 82274; 82728; 82805; 82962; 83540; 83605; 83735; 83880; 84100; 85007; 85025; 85027; 85045; 85610; 85730; 86850; 86900; 86901; 87040; 87077; 87081; 87088; 92960; 93005; 93306; 93312; 93320; 93325; 93922; 93925; 94640; 94660; 94760; 94761; 96361; 96365; 96375

== ENCOUNTER 2019-05-04 04:42 | Emergency (ER) | payer MEDICARE, MEDICAID ==
[~2019-05-04] VITALS: Ht 167.6 cm; Wt 117.0 kg
[~2019-05-04 04:42] MED LIST changes: +ALBU2.5V4 NEB; +ASPI-983 PO; +ATOR40TA70 PO; +DARB25VI SC; +DIGO250T15 PO; +DILT180C90 PO; +DRON400T2 PO; +EMPA10TA PO; +FURO40TA4 PO; +MICO10PO TOP; +OMEG-141 PO; +PHEN57OI RC; +RT-ALBUTEROL/IPRATROPIUM 3 ML (DUONEB) VIAL ONE; +SUCR1TAB PO; +[UNRECOGNIZED DRUG - CODE] IJ
[2019-05-04] MEDS ORDERED: ETOMIDATE IV SOLN 20 MG/10 ML VIAL IV ONE (04:45)
[2019-05-04] MEDS ORDERED: MIDAZOLAM 5 MG/5 ML (VERSED) VIAL INJ ONE (04:45)
[2019-05-04] MEDS ORDERED: ROCURONIUM 10 MG/ML 5 ML SYRINGE IV ONE (04:45)
[2019-05-04] MEDS ORDERED: NS IV 500 ML 500 ML IV ONE (04:50)
[2019-05-04] MEDS ORDERED: NS IV 1000 ML 1,000 ML IV SCH ×2 (04:50→07:37)
--- NOTE | 2019-05-04 04:58 | ED Respiratory ---
General Chief Complaint: Respiratory Problems Stated Complaint: SOA Source: patient Exam Limitations: no limitations (JUDITH TOBAR) History of Present Illness Date Seen by Provider: May 04, 2019 Time Seen by Provider: 04:45 Initial Comments Patient presents to ER by private conveyance with a complaint of shortness of breath. She is on 2 L by nasal cannula at baseline and the prison increased her to 4 liters and her oxygen sats did not get above 84%. She said she felt like she was going to because she was very short of breath. No cough or fever. She was recently in the hospital has a history of atrial fibrillation on Eliquis, digoxin and diltiazem. She is not having any chest pain but she is having nausea. She is having no increase swelling in her hands or feet. She has orthopnea. (JUDITH TOBAR) Allergies and Home Medications Allergies Coded Allergies: sulfamethoxazole (Verified Allergy, Unknown, 10/13/17) trimethoprim (Verified Allergy, Unknown, 10/13/17) Home Medications Acetaminophen 500 Mg Tablet, 1,000 MG PO Q6H PRN for PAIN-MILD OR TEMPATURE, (Reported) Albuterol Sulfate 2.5 Mg/3 Ml Vial.neb, 2.5 MG NEB Q4H PRN for WHEEZING, (Reported) Apixaban 5 Mg Tablet, 5 MG PO BID, (Reported) Aspirin 81 Mg Tablet.dr, 81 MG PO BID, (Reported) Atorvastatin Calcium 40 Mg Tablet, 40 MG PO 1800, (Reported) B Complex with Vitamin C 1 Each Tablet, 1 TAB PO DAILY, (Reported) Bethanechol Chloride 10 Mg Tablet, 10 MG PO BID, (Reported) Bisacodyl 10 Mg Supp.rect, 10 MG RC DAILY PRN for CONSTIPATION-4TH LINE, (Reported) Budesonide/Formoterol Fumarate 10.2 Gm Hfa.aer.ad, 2 PUFF IH BID, (Reported) Cholecalciferol 5,000 Unit Capsule, 5,000 UNIT PO HS, (Reported) Cinnamon Bark 500 Mg Capsule, 1,000 MG PO DAILY, (Reported) TAKES 2 (500 MG) CAPSULES Citalopram Hydrobromide 10 Mg Tablet, 10 MG PO DAILY, (Reported) Cranberry Extract 500 Mg Tablet, 1,000 MG PO DAILY, (Reported) Digoxin 250 Mcg Tablet, 0.25 MG PO DAILY Prescribed by: EUSEBIO WARD on 05/01/19 1448 Diltiazem HCl 180 Mg Cap.er.24h, 180 MG PO DAILY Prescribed by: EUSEBIO WARD on 05/01/19 144 Docusate Sodium 100 Mg Capsule, 100 MG PO BID, (Reported) Dronedarone HCl 400 Mg Tablet, 400 MG PO BID Prescribed by: EUSEBIO WARD on 05/01/19 1448 Dulaglutide 1.5 Mg/0.5 Ml Pen.injctr, 1.5 MG SQ We, (Reported) Empagliflozin 10 Mg Tablet, 10 MG PO DAILY, (Reported) Epoetin He-Epbx 2,000 Unit/1 Ml Vial, 2,000 UNIT IJ three times per week Prescribed by: EUSEBIO WARD on 05/02/19 1026 Ferrous Sulfate 325 Mg Tablet, 325 MG PO DAILY, (Reported) Fluticasone Propionate 16 Gm Swatara.susp, 2 SPRAYS NS DAILY, (Reported) Furosemide 40 Mg Tablet, 40 MG PO DAILY Prescribed by: EUSEBIO WARD on 05/01/19 144 Gabapentin 300 Mg Capsule, 300 MG PO BID, (Reported) Gluc Angulo/Chondro Angulo A/Vit C/Mn 1 Each Tablet, 2 TAB PO DAILY, (Reported) Guaifenesin/Dextromethorphan 473 Ml Syrup, 10 ML PO Q4H PRN for COUGH, (Reported) Insulin Detemir 100 Unit/1 Ml Insuln.pen, 45 UNIT SQ BID, (Reported) Magnesium Hydroxide 400 Mg/5 Ml Oral.susp, 30 ML PO DAILY PRN for CONSTIPATION- 7TH LINE, (Reported) Melatonin 3 Mg Tablet, 3 MG PO HS, (Reported) Metoprolol Succinate 100 Mg Tab.er.24h, 100 MG PO DAILY, (Reported) HOLD FOR SYSTOLIC BP <100 AND HEART RATE <60 Miconazole Nitrate 10 Gm Powder, TOP BID, (Reported) APPLY TO GROIN AND UNDER BREASTS Multivits W-Fe,Other Min/Lut 1 Each Tablet, 1 TAB PO TID, (Reported) [place]-3/Dha/Epa/Fish Oil 1 Each Capsule, 2 CAP PO DAILY, (Reported) Pantoprazole Sodium 40 Mg Tablet.dr, 40 MG PO 1400, (Reported) Phenyleph/Mineral Oil/Petrolat 57 Gm Oint.appl, RC Q12H PRN for HEMORRHOIDS, (Reported) Sodium Chloride 104 Ml Swatara, 2 SPRAYS NS Q4H PRN for DRY NOSE, (Reported) Sucralfate 1 Gm Tablet, 1 GM PO ACHS Prescribed by: EUSEBIO WARD on 05/01/19 1448 Valerian Root 500 Mg Capsule, 530 MG PO DAILY PRN for ANXIETY, (Reported) [Blood Sugar 360] , 1 CAP PO UD PRN for BLOOD SUGAR MAINTENANCE, (Reported) [digize oil] , TOP UD PRN for DIGESTIVE DIFFICULTIES, (Reported) MAY BE USED TOPICALLY OR DABBED INSIDE MOUTH ON CHEEK, KEEP AT BEDSIDE AND SE LF ADMINISTER FOR DIGESTIVE DIFFICULTIES. Patient Home Medication List Home Medication List Reviewed: Yes (JUDITH TOBAR) Review of Systems Review of Systems Constitutional: No chills, No fever; malaise EENTM: No ear discharge, No ear pain Respiratory: No cough; orthopnea, short of breath; No wheezing Cardiovascular: No chest pain; edema; No Hx of Intervention, No palpitations, No syncope, No vascular heart diseas Gastrointestinal: No abdominal pain, No constipation, No diarrhea Genitourinary: No discharge, No dysuria Musculoskeletal: No back pain, No joint pain (JUDITH TOBAR) Past Ztrisbk-Vkhsum-Ughqkm Hx Patient Social History Alcohol Use: Denies Use Recreational Drug Use: No Smoking Status: Former Smoker Type Used: Cigarettes Former Smoker, Quit: Sep 13, 1999 2nd Hand Smoke Exposure: No Recent Foreign Travel: No Contact w/Someone Who Travel: No Recent Hopitalizations: No (JUDITH TOBAR) Immunizations Up To Date Tetanus Booster (TDap): Unknown (JUDITH TOBAR) Seasonal Allergies Seasonal Allergies: Yes (JUDITH TOBAR) Past Medical History Surgeries: Yes Cardiac, Joint Replacement, Nose, Orthopedic Respiratory: Yes (03/2017-REPSIRATORY ARREST DUE TO ASPIRATION WITH ASPIRATION PNEUMONIA) Pneumonia, Sleep Apnea, COPD Currently Using CPAP: No Currently Using BIPAP: No Cardiac: Yes Chronic Edema/Swelling, Coronary Artery Disease, High Cholesterol Neurological: Yes (CVA WITH LEFT SIDE FLACCID PARALYSIS, DYSPHAGIA AND DYSPHASIA) Stroke 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 Disorders: No [employer] History: Menopausal Genitourinary: Yes (OVERACTIVE BLADDER) Kidney Stones, Renal Failure Gastrointestinal: Yes (DYSPHAGIA) Gastroesophageal Reflux, Chronic Constipation, Hemorrhoids, Ulcer Musculoskeletal: Yes Arthritis Endocrine: Yes Diabetes, Insulin dep HEENT: Yes (Nasal SX; DYSPHAGIA; CHRONIC RHINITIS) Dysphagia Loss of Vision: Denies Hearing Impairment: Denies Cancer: No Psychosocial: Yes Sleep Difficulties, Anxiety, Depression Integumentary: No Blood Disorders: No Adverse Reaction/Blood Tranf: No (No bllod transfusions d/t JW) (JUDITH TOBAR) Family Medical History Completed stroke 19 FATHER G8 BROTHER Diabetes mellitus G8 BROTHER Hypertension 19 FATHER 19 MOTHER CVA, Diabetes (JUDITH TOBAR) Physical Exam Vital Signs - First Documented 05/04/19 05/04/19 05/04/19 04:42 04:44 05:25 Temp 97.0 Pulse 71 Resp 22 B/P (MAP) 150/79 (102) Pulse Ox 76 O2 Delivery Room Air O2 Flow Rate 8.00 FiO2 40 (SAMINA HOWARD MD) Capillary Refill : (JUDITH TOBAR) Height: 5'6.00" Weight: 258lbs. 0.0oz. [id number]; 43.6 BMI Method:Stated General Appearance: moderate distress, obese Eyes: Bilateral Eye Normal Inspection, Bilateral Eye PERRL, Bilateral Eye EOMI HEENT: normal ENT inspection, pharynx normal Respiratory: lungs clear, respiratory distress (moderate), decreased breath sounds, accessory muscle use (moderate) Cardiovascular: normal peripheral pulses, regular rate, rhythm, other (chronic bipedal edema) Gastrointestinal: non tender, soft Extremities: other (right lower extremity tender to palpation, wrapped both legs with woody edema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: alert, normal mood/affect, oriented x 3 Skin: normal color, warm/dry (JUDITH TOBAR) Focused Exam Lactate Level 05/04/19 05:00: Lactic Acid Level 1.46 (SAMINA HOWARD MD) Lactic Acid Level Laboratory Tests Test 05/04/19 05:00 Lactic Acid Level 1.46 MMOL/L (0.50-2.00) (SAMINA HOWARD MD) Procedures/Interventions Lumen: triple Central Line Procedure: betadine prep (chlorhexidine prep), sterile drapes applied, sterile dressing applied Position: internal jugular (R) Anesthesia: Lidocaine Volume Anesthetic (ccs): 2 Complications: none Post Position: sutured, good blood return, position confirmed w/ CXR Because of the anatomy we had to go high in her neck to access the internal jugular that would not overlie the carotid. Wanted to avoid puncturing the carotid since she is on Eliquis. Unfortunately he had pierced the belly of the sternocleidomastoid muscle and put it in spasm which is causing some swelling on the right side of her neck. It is not causing tracheal deviation. No evidence of blood pooled up behind the SCM on bedside ultrasound. (JUDITH TOBAR) Reason for Intubation: respiratory failure and hypoxemia Date of ETT Placement: May 04, 2019 Time of ETT Placement: 06:11 Intubation Method: orotracheal Tube Size: 8.0 Medications: Etomidate, Rocuronium Positive End Tide CO2: Yes Breath Sounds after Intubation: bilateral-equal Intubation Complications: no complications Post Intubation Xray: Yes 2-3 cm above the christi good position. No pneumothorax The potassium was 5.3 so we elected not to use succinylcholine. Rocuronium weight-based was used. 0.6 mg/kg. Etomidate 30 mg for sedation. Position the patient had a busy at the bedside alternate size ET tube and a mirta vision kaleidoscope. Unfortunately mirta vision did not cooperate so we used a 3 Mac and got very good view of the full vocal cords. Patient was hyperoxygenated prior to intubation and was at 100% S02. Sats got down to 98% at the lowest. 23 at the lips. We had color change on capnography paper as well as end-tidal CO2 was 37 and the tube fogged the patient had good chest rise equally and good symmetric equal breath sounds as well as no gas sounds over the epigastric region. (JUDITH TOBAR) Progress/Results/Core Measures Suspected Sepsis SIRS Temperature: Pulse: Respiratory Rate: Laboratory Tests 05/04/19 04:55: White Blood Count 13.2H Blood Pressure / Mean: 05/04/19 05:00: Lactic Acid Level 1.46 Laboratory Tests 05/04/19 04:55: Creatinine 2.71H, INR Comment 1.9H, Platelet Count 448H, Total Bilirubin 0.5 (JUDITH TOBAR) Results/Orders Lab Results Laboratory Tests Test 05/04/19 04:51 05/04/19 04:52 05/04/19 04:55 05/04/19 05:00 Range/Units Glucometer 208 H 70-110 MG/DL Blood Gas Puncture Site NA Blood Gas Patient Temperature 97.0 Arterial Blood pH 7.41 7.37-7.43 Arterial Blood Partial Pressure CO2 43 35-45 MMHG Arterial Blood Partial Pressure O2 62 L 79-93 MMHG Arterial Blood HCO3 27 23-27 MMOL/L Arterial Blood Total CO2 28.3 21.0-31.0 MMOL/L Arterial Blood Oxygen Saturation 93 L 94-100 % Arterial Blood Base Excess 2.4 -2.5-2.5 MMOL/L Jai Test NA Blood Gas Ventilator Setting NO Blood Gas Inspired Oxygen 8L White Blood Count 13.2 H 4.3-11.0 10^3/uL Red Blood Count 3.26 L 4.35-5.85 10^6/uL Hemoglobin 8.7 #L 11.5-16.0 G/DL Hematocrit 29 L 35-52 % Mean Corpuscular Volume 90 80-99 FL Mean Corpuscular Hemoglobin 27 25-34 PG Mean Corpuscular Hemoglobin Concent 30 L 32-36 G/DL Red Cell Distribution Width 18.7 H 10.0-14.5 % Platelet Count 448 H 130-400 10^3/uL Mean Platelet Volume 9.5 7.4-10.4 FL Neutrophils (%) (Auto) 82 H 42-75 % Lymphocytes (%) (Auto) 9 L 12-44 % Monocytes (%) (Auto) 7 0-12 % Eosinophils (%) (Auto) 1 0-10 % Basophils (%) (Auto) 1 0-10 % Neutrophils # (Auto) 10.9 H 1.8-7.8 X 10^3 Lymphocytes # (Auto) 1.2 1.0-4.0 X 10^3 Monocytes # (Auto) 1.0 0.0-1.0 X 10^3 Eosinophils # (Auto) 0.1 0.0-0.3 10^3/uL Basophils # (Auto) 0.1 0.0-0.1 10^3/uL Prothrombin Time 22.4 H 12.2-14.7 SEC INR Comment 1.9 H 0.8-1.4 Activated Partial Thromboplast Time 25 24-35 SEC Sodium Level 135 135-145 MMOL/L Potassium Level 5.3 H 3.6-5.0 MMOL/L Chloride Level 96 L 98-107 MMOL/L Carbon Dioxide Level 23 21-32 MMOL/L Anion Gap 16 H 5-14 MMOL/L Blood Urea Nitrogen 37 H 7-18 MG/DL Creatinine 2.71 H 0.60-1.30 MG/DL Estimat Glomerular Filtration Rate 17 BUN/Creatinine Ratio 14 Glucose Level 200 H 70-105 MG/DL Calcium Level 9.8 8.5-10.1 MG/DL Corrected Calcium 10.2 H 8.5-10.1 MG/DL Total Bilirubin 0.5 0.1-1.0 MG/DL Aspartate Amino Transf (AST/SGOT) 36 H 5-34 U/L Alanine Aminotransferase (ALT/SGPT) 54 0-55 U/L Alkaline Phosphatase 339 H 40-136 U/L Troponin I < 0.028 <0.028 NG/ML C-Reactive Protein High Sensitivity 11.93 H 0.00-0.50 MG/DL B-Type Natriuretic Peptide 295.9 H <100.0 PG/ML Total Protein 8.5 H 6.4-8.2 GM/DL Albumin 3.5 3.2-4.5 GM/DL Digoxin Level 3.90 *H 0.80-2.00 NG/ML Lactic Acid Level 1.46 0.50-2.00 MMOL/L Test 05/04/19 05:29 05/04/19 06:43 05/04/19 07:40 Range/Units Urine Color YELLOW Urine Clarity VERY CLOUDY H Urine pH 5 5-9 Urine Specific Thayer 1.020 1.016-1.022 Urine Protein 3+ H NEGATIVE Urine Glucose (UA) 4+ H NEGATIVE Urine Ketones NEGATIVE NEGATIVE Urine Nitrite NEGATIVE NEGATIVE Urine Bilirubin NEGATIVE NEGATIVE Urine Urobilinogen NORMAL NORMAL MG/DL Urine Leukocyte Esterase 3+ H NEGATIVE Urine RBC (Auto) 3+ H NEGATIVE Urine RBC 0-2 /HPF Urine WBC 25-50 H /HPF Urine Squamous Epithelial Cells NONE /HPF Urine Crystals NONE /LPF Urine Bacteria MODERATE H /HPF Urine Casts NONE /LPF Urine Mucus NEGATIVE /LPF Urine Yeast MODERATE H /HPF Urine Culture Indicated CULTURE PENDING Blood Gas Puncture Site RIGHT RADIAL RIGHT RADIAL Blood Gas Patient Temperature 97 97 Arterial Blood pH 7.45 H 7.42 7.37-7.43 Arterial Blood Partial Pressure CO2 34 L 34 L 35-45 MMHG Arterial Blood Partial Pressure O2 235 H 93 79-93 MMHG Arterial Blood HCO3 24 22 L 23-27 MMOL/L Arterial Blood Total CO2 25.1 22.5 21.0-31.0 MMOL/L Arterial Blood Oxygen Saturation 100 99 94-100 % Arterial Blood Base Excess 0.4 -2.5 -2.5-2.5 MMOL/L Jai Test POSITIVE POSITIVE Blood Gas Ventilator Setting YES YES Blood Gas Inspired Oxygen 100% 50% (SAMINA HOWARD MD) My Orders Orders - SAMINA HOWARD MD Chest 1 View, Ap/Pa Only (05/04/19 07:04) Norepinephrine (Levophed) (05/04/19 07:30) (SAMINA HOWARD MD) Medications Given in ED Current Medications Medications Dose Ordered Sig/Helen Route Start Time Stop Time Status Last Admin Dose Admin Aspirin 324 mg ONCE ONCE PO 05/04/19 05:00 05/04/19 05:01 DC 05/04/19 05:50 324 MG Cefepime HCl 1000 mg/Sterile Water 10 ml @ 200 mls/hr ONCE ONCE IV 05/04/19 05:00 05/04/19 05:02 DC 05/04/19 05:47 200 MLS/HR Ondansetron HCl 4 mg PRN PRN IV 05/04/19 05:00 05/04/19 05:53 DC 05/04/19 05:52 4 MG Sodium Chloride 500 ml @ 0 mls/hr Q0M ONCE IV 05/04/19 04:50 05/04/19 04:55 DC 05/04/19 06:59 0 MLS/HR Vancomycin HCl 1000 mg/Sodium Chloride 250 ml @ 250 mls/hr ONCE ONCE IV 05/04/19 05:00 05/04/19 05:59 DC 05/04/19 05:53 250 MLS/HR (SAMINA HOWARD MD) Vital Signs/I&O 05/04/19 05/04/19 05/04/19 05/04/19 04:42 04:44 05:12 05:25 Temp 97.0 97.0 Pulse 71 71 Resp 22 22 B/P (MAP) 150/79 (102) 150/79 (102) Pulse Ox 76 92 76 93 O2 Delivery Room Air OxyMask Vapotherm O2 Flow Rate 8.00 30.00 FiO2 40 05/04/19 05/04/19 05/04/19 05/04/19 05:31 06:22 07:52 08:27 Temp 97.0 Pulse 63 Pulse Ox 93 97 O2 Delivery Vapotherm Vapotherm O2 Flow Rate 30.00 FiO2 40 50 100 (SAIMNA HOWARD MD) Vital Signs/I&O Capillary Refill : (JUDITH TOBAR) Progress Note #1: Time: 05:23 Progress Note The patient on 8 L oxygen mask which keeps her in the 96-98% range on pulse oximetry. Gave her a DuoNeb and obtain an ABG. The DuoNeb she says does not make any difference. She demonstrates hypoxemia with normal CO2 of 43. We'll try Vapotherm to improve her oxygenation. With her history of COPD we'll keep her oxygen sats somewhere in the 90-94% range. Consider atypical angina however the patient has no history of coronary disease she has plenty of risk factors. Blood sugar elevated on Accu-Chek. Adjusted body weight of 82 kg we'll give her 1500 cc which is just about 20 cc/kg to a septic workup obtain a troponin, EKG and continue her workup. Pneumonia versus COPD exacerbation versus other? With a negative troponin or heart score would be [address] Calderon 04/24/2019: EF 60%. No clot. A. fib on Cardizem and Multaq. Dig level. Eliquis should protect her from a pulmonary embolism. History of renal failure stage III/[address] Miles in the past. Progress Note #2: Time: 06:01 Progress Note Patient felt like she is doing a little better on the Vapotherm and she does have not as much increased worker breathing now however her oxygen demands continue to march up. She's at 80% to maintain low 90s. Discussed intubation with the patient and she still wants to be full code and she is okay with intubation and I believe it's indicated at this time. She has evidence of a UTI and possibly could be harboring a pneumonia as well. Progress Note #3: Time: 07:36 Progress Note Family has been updated and allowed to return to the room to be with the patient. Questions were answered. (JUDITH TOBAR) Progress Note : Time: 09:41 Progress Note Patient has remained stable on the ventilator. Blood pressures have stabilized on levo fed which has been titrated as needed. Sedation has been maintained on propofol. She received a total of 2500 mL in IV fluids. She received cefepime and vancomycin for initial antibiotic therapy. Patient is now being transferred via [facility]. (SAMINA HOWARD MD) ECG Initial ECG Impression Date: May 04, 2019 Initial ECG Impression Time: 05:08 Initial ECG Rate: 82 Initial ECG Rhythm: Normal Sinus Initial ECG Intervals: Normal Initial ECG Impression: Normal, Nonspecific Changes Initial ECG Comparisson: Unchanged Comment Sinus rhythm with no clinically significant ST elevation or depression. (JUDITH TOBAR) Diagnostic Imaging Diagonstic Imaging: Xray Plain Films/CT/US/NM/MRI: chest (1v) Comments Left pleural effusion, stable. Possible infiltrate could be hidden. Reviewed: Reviewed by Me Diagonstic Imaging: Xray Plain Films/CT/US/NM/MRI: chest (1v) Comments Repeat chest x-ray demonstrates ET tube to be about 2-3 cm above the christi in good position. No pneumothorax. There is a central line on the right side overlying the internal jugular that does not cross the midline and terminates just above the right atrium in the superior vena cava. Reviewed: Reviewed by Me (JUDITH TOBAR) Comments NAME: MIRIAM RODRIGUES MED REC#: [id number] PT STATUS: DEP ER : 1950 PHYSICIAN: JUDITH TOBAR MD ADMIT DATE: 05/04/19/ER Signed Date of Exam: 05/04/19 CHEST 1 VIEW, AP/PA ONLY INDICATION: Shortness of breath, 2 days post hospital discharge. TECHNIQUE: Single view chest 5:13 AM. CORRELATION STUDY: 04/27/2019 FINDINGS: Rather pronounced cardiac enlargement is again demonstrated. The vasculature overall near-normal at followup. Left lung base and diaphragm are largely obscured by the cardiac enlargement. Definitive infiltrates not suggested. Trace effusions not excluded. IMPRESSION: 1. Rather pronounced cardiac enlargement, generally stable. Vasculature appears near normal on followup. Dictated by: Dictated on workstation # [id number] Dict: 08/22/19 0600 Trans: 05/04/19942 Interpreted by: THERESA VALLES DO Electronically signed by: THERESA VALLES DO 05/04/19942 Comments NAME: MIRIAM RODRIGUES [facility] REC#: [id number] PT STATUS: REG ER : 1950 PHYSICIAN: SAMINA HOWARD MD ADMIT DATE: 05/04/19/ER Signed Date of Exam: 05/04/19 CHEST 1 VIEW, AP/PA ONLY INDICATION: Central line placement Portable chest 7:09 AM There is an ET tube projecting over the trachea. Right IJ central line tip projects over the SVC. There is cardiomegaly. There is a small left pleural effusion. Vascularity is normal. Lungs appear clear. IMPRESSION: Cardiomegaly and a left pleural effusion. There's interval placement of a ET tube and central line compared to earlier in the day. Dictated by: Dictated on workstation # [id number] Dict: 05/04/19720 Trans: 05/04/19800 Interpreted by: JORY DOYLE MD Electronically signed by: JORY DOYLE MD 05/04/19800 (SAMINA HOWARD MD) Critical Care Note Critical Care Start Time: 05:50 Stop Time: 07:15 Total Time (minutes) 85 min Progress Discussed with the patient the plan that she was failing Vapotherm as evidenced by ABG and her increasing O2 demand's. She was at 70 FiO2 and 40 L/m. We discussed doing a central line as well as intubation because she had poor IV access. Blood pressure was okay. The patient consented verbally. We then brought the family and allow them to visit with the patient and explained the plan and they consented as well. Patient was properly explained her risks, benefits and alternatives and then positioned and given etomidate 30 mg followed by rocuronium selected because of her elevated potassium at 0.6 mg/kg. After the patient's fasciculations her over the were bagging her with a bag valve mask and got her oxygen sats from the upper 80s although it 100%. She was intubated on first attempt and had good indications that she was in the proper place. We then attempted multiple times but an OG down by nursing and the physician using Mirta Vision as well as Danita forceps, bougie, ice water. We were unsuccessful getting an OG in place. It would go about shelter down her esophagus and then start coiling. Central line was placed per the procedure note. Unfortunately it seems like her sternomastoid belly was pierced causing spasm on the right side but there does not appear to be a collection of blood. We had to choose a higher entry point because of the anatomy where her internal jugular overlays the carotid. Patient was given 5 of Versed and propofol was started to Keep her comfortable. Unfortunately this also caused her blood pressure come down some. We dropped her PEEP to 5 again and increased her tidal volume from 550 to 600. Respiratory rate of 18. Another ABG demonstrated her PaO2 to be above 200 so we continued to titrate her oxygen down aggressively. A small dose of Levophed was added to keep her blood pressure up. She had already received most of the 1500 cc of initial 20 cc/kg bolus. Another liter was added to bring her up to 30 cc/kg. Her adjusted ideal body weight is 82 kg. Patient's mean arterial pressure is staying around 65-70. (JUDITH TOBAR) Departure Impression Primary Impression: Pneumonia Qualified Codes: J18.9 - Pneumonia, unspecified organism Additional Impressions: Acute respiratory failure with hypoxemia Chronic kidney disease, stage 4 (severe) Catheter-associated urinary tract infection Qualified Codes: T83.511A - Infection and inflammatory reaction due to indwelling urethral catheter, initial encounter; N39.0 - Urinary tract infection, site not specified Disposition: 02 XFER T-TRM HOSP Condition: Critical Transfer Transfer Facility: [place], [place] (JUDITH TOBAR) Time Spoke to Accepting Phy: 07:00 Transfer Progress Notes Transfer was accepted by Dr. Huerta at [facility] in [place]. Method of Transfer: EMS (SAMINA HOWARD MD) Departure-Patient Inst. Referrals: HERMINIA YAO MD (PCP/Family) Primary Care Physician Copy Copies To 1: KAEL BARAJAS TITUS J May 04, 2019 04:58 SAMINA HOWARD MD May 04, 2019 07:13
[2019-05-04 04:59] LABS: ABG BASE EXCESS 2.4 MMOL/L (-2.5-2.5); ABG OXYGEN SATURATION 93 % (94-100); ABG PCO2 43 MMHG (35-45); ABG PH 7.41 (7.37-7.43); ABG PO2 62 MMHG (79-93); ABG TCO2 28.3 MMOL/L (21.0-31.0)
[2019-05-04 05:00] LABS: INSPIRED O2 8L; VENTILATOR NO
[2019-05-04] MEDS ORDERED: CEFEPIME INJECTION 1,000 MG in WATER (STERILE) FOR INJECTION 10 ML IV ONE (05:00)
[2019-05-04] MEDS ORDERED: VANCOMYCIN INJECTION 1,000 MG in NS (IVPB) 250 ML IV ONE (05:00)
[2019-05-04] MEDS ORDERED: ASPIRIN 81 MG CHEW (CHILDREN'S ASA) PO ONE (05:00)
[2019-05-04] MEDS ORDERED: ONDANSETRON 4 MG/2 ML (SDV) Z0FRAN IV PRN (05:00)
[2019-05-04 05:05] LABS: BASOPHILS # (AUTO) 0.1 10^3/uL (0.0-0.1); BASOPHILS % (AUTO) 1 % (0-10); EOSINOPHILS # (AUTO) 0.1 10^3/uL (0.0-0.3); EOSINOPHILS % (AUTO) 1 % (0-10); HEMATOCRIT 29 % (35-52); HEMOGLOBIN 8.7 G/DL (11.5-16.0); LYMPHOCYTES # (AUTO) 1.2 X 10^3 (1.0-4.0); LYMPHOCYTES % (AUTO) 9 % (12-44); MEAN CORPUSCULAR HEMOGLOBIN 27 PG (25-34); MEAN CORPUSCULAR HGB CONC 30 G/DL (32-36); MEAN CORPUSCULAR VOLUME 90 FL (80-99); MEAN PLATELET VOLUME 9.5 FL (7.4-10.4); MONOCYTES % (AUTO) 7 % (0-12); NEUTROPHILS # (AUTO) 10.9 X 10^3 (1.8-7.8); NEUTROPHILS % (AUTO) 82 % (42-75); PLATELET COUNT 448 10^3/uL (130-400); RED CELL DISTRIBUTION WIDTH 18.7 % (10.0-14.5); WHITE BLOOD COUNT 13.2 10^3/uL (4.3-11.0)
[2019-05-04 05:12] VITALS: BP 150/79
[2019-05-04 05:23] LABS: INR 1.9 (0.8-1.4); PROTHROMBIN TIME PATIENT 22.4 SEC (12.2-14.7)
[2019-05-04 05:38] LABS: ALANINE AMINOTRANSFERASE 54 U/L (0-55); ALBUMIN 3.5 GM/DL (3.2-4.5); ALKALINE PHOSPHATASE 339 U/L (40-136); BILIRUBIN,TOTAL 0.5 MG/DL (0.1-1.0); BUN/CREATININE RATIO 14; CALCIUM 9.8 MG/DL (8.5-10.1); CARBON DIOXIDE 23 MMOL/L (21-32); CHLORIDE 96 MMOL/L (98-107); CREATININE SERUM 2.71 MG/DL (0.60-1.30); GFR ESTIMATED 17; GLUCOSE 200 MG/DL (70-105); POTASSIUM 5.3 MMOL/L (3.6-5.0); SODIUM 135 MMOL/L (135-145); TOTAL PROTEIN 8.5 GM/DL (6.4-8.2)
[2019-05-04 05:43] LABS: BILIRUBIN,URINE NEGATIVE (NEGATIVE); CLARITY,URINE VERY CLOUDY; COLOR,URINE YELLOW; GLUCOSE, URINE (UA) 4+ (NEGATIVE); KETONES,URINE NEGATIVE (NEGATIVE); LEUKOCYTE ESTERASE ,URINE 3+ (NEGATIVE); NITRITE,URINE NEGATIVE (NEGATIVE); PH,URINE 5 (5-9); PROTEIN,URINE 3+ (NEGATIVE); UROBILINOGEN,URINE NORMAL (NORMAL)
[2019-05-04 05:46] LABS: BACTERIA,URINE MODERATE /HPF; RBC,URINE 0-2 /HPF; WBC,URINE 25-50 /HPF; YEAST,URINE MODERATE /HPF
--- NOTE | 2019-05-04 05:52 | NUR ---
Dr. Schroeder consulting with pt at this time for verbal consent to intubate. Pt verbalizes consent of procedure and voices no other questions/concerns at this time. Family present during this time.
--- NOTE | 2019-05-04 06:06 | NUR ---
0606- 20mg etomidate 0607- 10mg etomidate 0607- 70mg Rocuronium 0611- intubation - 23" at lips 0612- + color change and equal lung sounds bilat 0622- profolol started at 40mcg/hr 0626- 5 mg Versed
--- NOTE | 2019-05-04 06:11 | Diagnostic Imaging Report ---
INDICATION: Shortness of breath, 2 days post hospital discharge. TECHNIQUE: Single view chest 5:13 AM. CORRELATION STUDY: 04/27/2019 FINDINGS: Rather pronounced cardiac enlargement is again demonstrated. The vasculature overall near-normal at followup. Left lung base and diaphragm are largely obscured by the cardiac enlargement. Definitive infiltrates not suggested. Trace effusions not excluded. IMPRESSION: 1. Rather pronounced cardiac enlargement, generally stable. Vasculature appears near normal on followup. Dictated by: Dictated on workstation # [id number]
[2019-05-04] MEDS ORDERED: PROPOFOL DRIP (ICU) 100 ML IV ONE (06:15)
[2019-05-04] MEDS ORDERED: PROPOFOL DRIP (ICU) 100 ML IV SCH (06:30)
[2019-05-04 06:46] LABS: ABG BASE EXCESS 0.4 MMOL/L (-2.5-2.5); ABG OXYGEN SATURATION 100 % (94-100); ABG PCO2 34 MMHG (35-45); ABG PH 7.45 (7.37-7.43); ABG PO2 235 MMHG (79-93); ABG TCO2 25.1 MMOL/L (21.0-31.0)
[2019-05-04 06:49] LABS: ALLENS TEST POSITIVE; INSPIRED O2 100%; PATIENT TEMP 97; VENTILATOR YES
--- NOTE | 2019-05-04 06:49 | NUR ---
STEFANY Montez updating family at this time
--- NOTE | 2019-05-04 07:05 | NUR ---
Report given to STEFANY Weber to assume care at this time.
--- NOTE | 2019-05-04 07:09 | NUR ---
Vancomycin restarted at 0709
--- NOTE | 2019-05-04 07:23 | Diagnostic Imaging Report ---
INDICATION: Central line placement Portable chest 7:09 AM There is an ET tube projecting over the trachea. Right IJ central line tip projects over the SVC. There is cardiomegaly. There is a small left pleural effusion. Vascularity is normal. Lungs appear clear. IMPRESSION: Cardiomegaly and a left pleural effusion. There's interval placement of a ET tube and central line compared to earlier in the day. Dictated by: Dictated on workstation # [id number]
[2019-05-04] MEDS ORDERED: NOREPINEPHRINE 4 MG in NS (IVPB) 250 ML IV SCH (07:30)
[2019-05-04 07:46] LABS: ABG BASE EXCESS -2.5 MMOL/L (-2.5-2.5); ABG OXYGEN SATURATION 99 % (94-100); ABG PCO2 34 MMHG (35-45); ABG PH 7.42 (7.37-7.43); ABG PO2 93 MMHG (79-93); ABG TCO2 22.5 MMOL/L (21.0-31.0)
[2019-05-04 07:47] LABS: ALLENS TEST POSITIVE; INSPIRED O2 50%; PATIENT TEMP 97; VENTILATOR YES
--- NOTE | 2019-05-04 07:59 | NUR ---
Spoke with Meliton at dispatch re transfer to [place]. Meliton requested this nurse to call dispatch when room number is availbale.
--- NOTE | 2019-05-04 08:14 | NUR ---
This nurse called [facility] to check on bed status. Raúl to call back within 10 minutes.
--- NOTE | 2019-05-04 08:17 | NUR ---
Called dispatch at this time for transport to [place].
[2019-05-04 09:43] VITALS: BP 97/68
== END 2019-05-04 09:46 | disposition short-term general hospital (02) ==
LOC: EDUNIT# 04:42 → ER 04:44
DX: J18.9 Pneumonia, unspecified organism (principal); J96.01 Acute respiratory failure with hypoxia; N18.4 Chronic kidney disease, stage 4 (severe); T83.511A Infection and inflammatory reaction due to indwelling urethral catheter, initial encounter; N39.0 Urinary tract infection, site not specified; I48.91 Unspecified atrial fibrillation; J44.9 Chronic obstructive pulmonary disease, unspecified; G47.30 Sleep apnea, unspecified; K21.9 Gastro-esophageal reflux disease without esophagitis; E11.22 Type 2 diabetes mellitus with diabetic chronic kidney disease; F41.9 Anxiety disorder, unspecified; F32.9 Major depressive disorder, single episode, unspecified; Z86.73 Personal history of transient ischemic attack (TIA), and cerebral infarction without residual deficits; Z99.81 Dependence on supplemental oxygen; Z79.01 Long term (current) use of anticoagulants; Z88.2 Allergy status to sulfonamides; Z88.1 Allergy status to other antibiotic agents; Z79.82 Long term (current) use of aspirin; Z79.4 Long term (current) use of insulin; Z87.891 Personal history of nicotine dependence; Z82.49 Family history of ischemic heart disease and other diseases of the circulatory system
CPT/HCPCS: 31500; 36415; 36600; 71045; 80053; 80162; 81000; 82805; 82962; 83605; 83880; 84484; 85025; 85610; 85730; 86141; 87040; 87088; 87106; 93005; 94640

== ENCOUNTER 2019-05-31 13:07 | Inpatient (IN) | payer MEDICARE, MEDICAID ==
[~2019-05-31] VITALS: Ht 157.4 cm; Wt 118.5 kg
[~2019-05-31 13:07] MED LIST changes: -RT-ALBUTEROL/IPRATROPIUM 3 ML (DUONEB) VIAL ONE
[2019-05-31] MEDS ORDERED: LACTATED RINGERS 1,000 ML IV ONE (13:36)
[2019-05-31] MEDS ORDERED: ACETAMINOPHEN 500 MG TAB (TYLENOL) PO PRN (13:45)
[2019-05-31 13:52] LABS: BASOPHILS % (AUTO) 0 % (0-10); EOSINOPHILS % (AUTO) 0 % (0-10); HEMATOCRIT 37 % (35-52); HEMOGLOBIN 11.4 G/DL (11.5-16.0); LYMPHOCYTES # (AUTO) 0.6 X 10^3 (1.0-4.0); LYMPHOCYTES % (AUTO) 4 % (12-44); MEAN CORPUSCULAR HEMOGLOBIN 27 PG (25-34); MEAN CORPUSCULAR HGB CONC 31 G/DL (32-36); MEAN CORPUSCULAR VOLUME 87 FL (80-99); MEAN PLATELET VOLUME 9.7 FL (7.4-10.4); MONOCYTES # (AUTO) 0.7 X 10^3 (0.0-1.0); MONOCYTES % (AUTO) 4 % (0-12); NEUTROPHILS # (AUTO) 14.2 X 10^3 (1.8-7.8); NEUTROPHILS % (AUTO) 92 % (42-75); PLATELET COUNT 225 10^3/uL (130-400); RED CELL DISTRIBUTION WIDTH 17.8 % (10.0-14.5); WHITE BLOOD COUNT 15.4 10^3/uL (4.3-11.0)
[2019-05-31 13:59] LABS: BILIRUBIN,URINE NEGATIVE (NEGATIVE); CLARITY,URINE CLEAR; COLOR,URINE YELLOW; GLUCOSE, URINE (UA) 4+ (NEGATIVE); KETONES,URINE NEGATIVE (NEGATIVE); LEUKOCYTE ESTERASE ,URINE 1+ (NEGATIVE); NITRITE,URINE NEGATIVE (NEGATIVE); PH,URINE 5 (5-9); PROTEIN,URINE 2+ (NEGATIVE); UROBILINOGEN,URINE NORMAL (NORMAL)
[2019-05-31 14:05] LABS: INR 1.6 (0.8-1.4); PROTHROMBIN TIME PATIENT 19.8 SEC (12.2-14.7)
[2019-05-31 14:12] LABS: ALANINE AMINOTRANSFERASE 18 U/L (0-55); ALBUMIN 3.3 GM/DL (3.2-4.5); ALKALINE PHOSPHATASE 138 U/L (40-136); BILIRUBIN,TOTAL 0.6 MG/DL (0.1-1.0); BUN/CREATININE RATIO 11; CALCIUM 8.5 MG/DL (8.5-10.1); CARBON DIOXIDE 24 MMOL/L (21-32); CHLORIDE 103 MMOL/L (98-107); GFR ESTIMATED 26; GLUCOSE 203 MG/DL (70-105); POTASSIUM 4.2 MMOL/L (3.6-5.0); SODIUM 135 MMOL/L (135-145); TOTAL PROTEIN 7.1 GM/DL (6.4-8.2)
[2019-05-31 14:17] LABS: ANISOCYTOSIS MODERATE; BAND NEUTROPHILS 3 %; LYMPHOCYTES % (MANUAL) 2 %; MONOCYTES % (MANUAL) 8 %; NEUTROPHILS % (MANUAL) 87 %
--- NOTE | 2019-05-31 14:17 | ED General ---
General Chief Complaint: Fever-Adult/Adol Stated Complaint: COLD,SHIVERS,NAUSEA,ELEVATED TEMP Nursing Triage Note: ARRIVED VIA WC TO ROOM 06. FEVER FOR SEVERAL DAYS AND LOW PULSEOX AT SKILLED NURSING. PT INC OF URINE UPON ARRIVAL. Nursing Sepsis Screen: Possible Severe Sepsis Risk Source of Information: Patient Exam Limitations: No Limitations History of Present Illness Date Seen by Provider: May 31, 2019 Time Seen by Provider: 13:28 Initial Comments Here from [facility] with report of altered mental status and fever. They also report that her oxygen saturation was low today. Patient is incontinent of urine and this is not usual for her. She is febrile. She is confused about person, place and people she knows. This seems to be intermittent. She does seem to be somewhat dyspneic. Denies any significant pain, vomiting but does admit to weakness. Timing/Duration: 2-3 Days, Getting Worse Severity: Moderate Modifying Factors: improves with Rest Associated Systoms: No Chest Pain, No Cough; Fever/Chills; No Nausea/Vomiting, No Shortness of Air; Weakness Allergies and Home Medications Allergies Coded Allergies: sulfamethoxazole (Verified Allergy, Unknown, 10/13/17) trimethoprim (Verified Allergy, Unknown, 10/13/17) Home Medications Acetaminophen 500 Mg Tablet, 1,000 MG PO Q6H PRN for PAIN-MILD OR TEMPATURE, (Reported) Albuterol Sulfate 2.5 Mg/3 Ml Vial.neb, 2.5 MG NEB Q4H PRN for WHEEZING, (Reported) Apixaban 5 Mg Tablet, 5 MG PO BID, (Reported) Aspirin 81 Mg Tablet.dr, 81 MG PO BID, (Reported) Atorvastatin Calcium 40 Mg Tablet, 40 MG PO 1800, (Reported) B Complex with Vitamin C 1 Each Tablet, 1 TAB PO DAILY, (Reported) Bethanechol Chloride 10 Mg Tablet, 10 MG PO BID, (Reported) Bisacodyl 10 Mg Supp.rect, 10 MG RC DAILY PRN for CONSTIPATION-4TH LINE, (Reported) Budesonide/Formoterol Fumarate 10.2 Gm Hfa.aer.ad, 2 PUFF IH BID, (Reported) Cholecalciferol 5,000 Unit Capsule, 5,000 UNIT PO HS, (Reported) Cinnamon Bark 500 Mg Capsule, 1,000 MG PO DAILY, (Reported) TAKES 2 (500 MG) CAPSULES Citalopram Hydrobromide 10 Mg Tablet, 10 MG PO DAILY, (Reported) Cranberry Extract 500 Mg Tablet, 1,000 MG PO DAILY, (Reported) Digoxin 250 Mcg Tablet, 0.25 MG PO DAILY Prescribed by: EUSEBIO WARD on 05/01/19 144 Diltiazem HCl 180 Mg Cap.er.24h, 180 MG PO DAILY Prescribed by: EUSEBIO WARD on 05/01/19 144 Docusate Sodium 100 Mg Capsule, 100 MG PO BID, (Reported) Dronedarone HCl 400 Mg Tablet, 400 MG PO BID Prescribed by: EUSEBIO WARD on 05/01/19 144 Dulaglutide 1.5 Mg/0.5 Ml Pen.injctr, 1.5 MG SQ We, (Reported) Empagliflozin 10 Mg Tablet, 10 MG PO DAILY, (Reported) Epoetin He-Epbx 2,000 Unit/1 Ml Vial, 2,000 UNIT IJ three times per week Prescribed by: EUSEBIO WARD on 05/02/19 102 Ferrous Sulfate 325 Mg Tablet, 325 MG PO DAILY, (Reported) Fluticasone Propionate 16 Gm [place].susp, 2 SPRAYS NS DAILY, (Reported) Furosemide 40 Mg Tablet, 40 MG PO DAILY Prescribed by: EUSEBIO WARD on 05/01/19 144 Gabapentin 300 Mg Capsule, 300 MG PO BID, (Reported) Gluc Angulo/Chondro Angulo A/Vit C/Mn 1 Each Tablet, 2 TAB PO DAILY, (Reported) Guaifenesin/Dextromethorphan 473 Ml Syrup, 10 ML PO Q4H PRN for COUGH, (Reported) Insulin Detemir 100 Unit/1 Ml Insuln.pen, 45 UNIT SQ BID, (Reported) Magnesium Hydroxide 400 Mg/5 Ml Oral.susp, 30 ML PO DAILY PRN for CONSTIPATION- 7TH LINE, (Reported) Melatonin 3 Mg Tablet, 3 MG PO HS, (Reported) Metoprolol Succinate 100 Mg Tab.er.24h, 100 MG PO DAILY, (Reported) HOLD FOR SYSTOLIC BP <100 AND HEART RATE <60 Miconazole Nitrate 10 Gm Powder, TOP BID, (Reported) APPLY TO GROIN AND UNDER BREASTS Multivits W-Fe,Other Min/Lut 1 Each Tablet, 1 TAB PO TID, (Reported) [place]-3/Dha/Epa/Fish Oil 1 Each Capsule, 2 CAP PO DAILY, (Reported) Pantoprazole Sodium 40 Mg Tablet.dr, 40 MG PO 1400, (Reported) Phenyleph/Mineral Oil/Petrolat 57 Gm Oint.appl, RC Q12H PRN for HEMORRHOIDS, (Reported) Sodium Chloride 104 Ml [place], 2 SPRAYS NS Q4H PRN for DRY NOSE, (Reported) Sucralfate 1 Gm Tablet, 1 GM PO ACHS Prescribed by: EUSEBIO WARD on 05/01/19 1448 Valerian Root 500 Mg Capsule, 530 MG PO DAILY PRN for ANXIETY, (Reported) [Blood Sugar 360] , 1 CAP PO UD PRN for BLOOD SUGAR MAINTENANCE, (Reported) [digize oil] , TOP UD PRN for DIGESTIVE DIFFICULTIES, (Reported) MAY BE USED TOPICALLY OR DABBED INSIDE MOUTH ON CHEEK, KEEP AT BEDSIDE AND SELF ADMINISTER FOR DIGESTIVE DIFFICULTIES. Patient Home Medication List Home Medication List Reviewed: Yes Review of Systems Review of Systems Constitutional: see HPI, chills, fever, weakness EENTM: no symptoms reported Respiratory: short of breath; No wheezing Cardiovascular: No chest pain; edema Gastrointestinal: No abdominal pain, No nausea, No vomiting Genitourinary: incontinence; No pain Musculoskeletal: No back pain; muscle weakness Skin: change in color (groin and bilateral lower extremities) Psychiatric/Neurological: See HPI All Other Systems Reviewed Negative Unless Noted: Yes Past Loxafqr-Jtatzb-Qewfee Hx Past Med/Social Hx: Reviewed Nursing Past Med/Soc Hx Patient Social History Alcohol Use: Denies Use Recreational Drug Use: No Smoking Status: Former Smoker Type Used: Cigarettes Former Smoker, Quit: Sep 13, 1999 2nd Hand Smoke Exposure: No Recent Foreign Travel: No Contact w/Someone Who Travel: No Recent Infectious Disease Expo: No Recent Hopitalizations: No Immunizations Up To Date Tetanus Booster (TDap): Unknown Seasonal Allergies Seasonal Allergies: Yes Past Medical History Surgeries: Yes Cardiac, Joint Replacement, Nose, Orthopedic Respiratory: Yes (03/2017-REPSIRATORY ARREST DUE TO ASPIRATION WITH ASPIRATION PNEUMONIA) Pneumonia, Sleep Apnea, COPD Currently Using CPAP: No Currently Using BIPAP: No Cardiac: Yes Chronic Edema/Swelling, Coronary Artery Disease, High Cholesterol Neurological: Yes (CVA WITH LEFT SIDE FLACCID PARALYSIS, DYSPHAGIA AND DYSPHASIA) Stroke 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 Disorders: No 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 Genitourinary: Yes (OVERACTIVE BLADDER) Kidney Stones, Renal Failure Gastrointestinal: Yes (DYSPHAGIA) Gastroesophageal Reflux, Chronic Constipation, Hemorrhoids, Ulcer Musculoskeletal: Yes Arthritis Endocrine: Yes Diabetes, Insulin dep HEENT: Yes (Nasal SX; DYSPHAGIA; CHRONIC RHINITIS) Dysphagia Loss of Vision: Denies Hearing Impairment: Denies Cancer: No Psychosocial: Yes Sleep Difficulties, Anxiety, Depression Integumentary: No Blood Disorders: No Adverse Reaction/Blood Tranf: No (No bllod transfusions d/t JW) Family Medical History Reviewed Nursing Family Hx Completed stroke 19 FATHER G8 BROTHER Diabetes mellitus G8 BROTHER Hypertension 19 FATHER 19 MOTHER CVA, Diabetes Physical Exam-Suspected Sepsis Physical Exam Vital Signs Vital Signs - First Documented 05/31/19 13:15 Temp 40.0 Pulse 89 Resp 22 B/P (MAP) 135/74 (94) Pulse Ox 93 O2 Delivery Nasal Cannula O2 Flow Rate 2.00 Capillary Refill : Less Than 3 Seconds Blood Pressure Mean: 94 Height, Weight, BMI Height: 5'6.00" Weight: 258lbs. 0.0oz. 117.358795yh; 39.00 BMI Method:Estimated General Appearance: No Apparent Distress, WD/WN HEENT: PERRL/EOMI, Pharynx Normal Neck: Non Tender, Supple Respiratory: Lungs Clear, Normal Breath Sounds Cardiovascular: Regular Rate, Rhythm, No Murmur Gastrointestinal: Non Tender, Soft Back: Normal Inspection, No CVA Tenderness, No Vertebral Tenderness Extremity: Normal Capillary Refill, Normal Range of Motion, Non Tender Neurologic/Psychiatric: Alert, Disoriented Skin: normal color, warm/dry Focused Exam Lactate Level 05/31/19 13:40: Lactic Acid Level 2.22*H 05/31/19 16:00: Lactic Acid Level 1.74 Lactic Acid Level Laboratory Tests Test 05/31/19 13:40 05/31/19 16:00 Lactic Acid Level 2.22 MMOL/L (0.50-2.00) *H 1.74 MMOL/L (0.50-2.00) Procedures/Interventions Date of ETT Placement: May 04, 2019 Time of ETT Placement: 06 Progress/Results/Core Measures Suspected Sepsis Recent Fever Within 48 Hours: Yes Infection Criteria Present: Suspected New Infection New/Unexplained Altered Menta: Yes Sepsis Screen: Possible Severe Sepsis Risk SIRS Temperature: Pulse: 89 Respiratory Rate: 22 Laboratory Tests 9/18/19 13:40: White Blood Count 15.4H Blood Pressure 135 /74 Mean: 94 05/31/19 13:40: Lactic Acid Level 2.22*H 05/31/19 16:00: Lactic Acid Level 1.74 Laboratory Tests 05/31/19 13:40: Creatinine 1.90H, INR Comment 1.6H, Platelet Count 225, Total Bilirubin 0.6 Results/Orders Lab Results Laboratory Tests Test 05/31/19 13:40 05/31/19 13:51 05/31/19 16:00 Range/Units White Blood Count 15.4 H 4.3-11.0 10^3/uL Red Blood Count 4.28 L 4.35-5.85 10^6/uL Hemoglobin 11.4 L 11.5-16.0 G/DL Hematocrit 37 35-52 % Mean Corpuscular Volume 87 80-99 FL Mean Corpuscular Hemoglobin 27 25-34 PG Mean Corpuscular Hemoglobin Concent 31 L 32-36 G/DL Red Cell Distribution Width 17.8 H 10.0-14.5 % Platelet Count 225 130-400 10^3/uL Mean Platelet Volume 9.7 7.4-10.4 FL Neutrophils (%) (Auto) 92 H 42-75 % Lymphocytes (%) (Auto) 4 L 12-44 % Monocytes (%) (Auto) 4 0-12 % Eosinophils (%) (Auto) 0 0-10 % Basophils (%) (Auto) 0 0-10 % Neutrophils # (Auto) 14.2 H 1.8-7.8 X 10^3 Lymphocytes # (Auto) 0.6 L 1.0-4.0 X 10^3 Monocytes # (Auto) 0.7 0.0-1.0 X 10^3 Eosinophils # (Auto) 0.0 0.0-0.3 10^3/uL Basophils # (Auto) 0.0 0.0-0.1 10^3/uL Neutrophils % (Manual) 87 % Lymphocytes % (Manual) 2 % Monocytes % (Manual) 8 % Band Neutrophils 3 % Anisocytosis MODERATE Prothrombin Time 19.8 H 12.2-14.7 SEC INR Comment 1.6 H 0.8-1.4 Activated Partial Thromboplast Time 38 H 24-35 SEC Sodium Level 135 135-145 MMOL/L Potassium Level 4.2 3.6-5.0 MMOL/L Chloride Level 103 98-107 MMOL/L Carbon Dioxide Level 24 21-32 MMOL/L Anion Gap 8 5-14 MMOL/L Blood Urea Nitrogen 20 H 7-18 MG/DL Creatinine 1.90 H 0.60-1.30 MG/DL Estimat Glomerular Filtration Rate 26 BUN/Creatinine Ratio 11 Glucose Level 203 H 70-105 MG/DL Lactic Acid Level 2.22 *H 1.74 0.50-2.00 MMOL/L Calcium Level 8.5 8.5-10.1 MG/DL Corrected Calcium 9.1 8.5-10.1 MG/DL Total Bilirubin 0.6 0.1-1.0 MG/DL Aspartate Amino Transf (AST/SGOT) 25 5-34 U/L Alanine Aminotransferase (ALT/SGPT) 18 0-55 U/L Alkaline Phosphatase 138 H 40-136 U/L Troponin I < 0.028 <0.028 NG/ML Total Protein 7.1 6.4-8.2 GM/DL Albumin 3.3 3.2-4.5 GM/DL Digoxin Level 2.80 *H 0.80-2.00 NG/ML Urine Color YELLOW Urine Clarity CLEAR Urine pH 5 5-9 Urine Specific [place] 1.020 1.016-1.022 Urine Protein 2+ H NEGATIVE Urine Glucose (UA) 4+ H NEGATIVE Urine Ketones NEGATIVE NEGATIVE Urine Nitrite NEGATIVE NEGATIVE Urine Bilirubin NEGATIVE NEGATIVE Urine Urobilinogen NORMAL NORMAL MG/DL Urine Leukocyte Esterase 1+ H NEGATIVE Urine RBC (Auto) 1+ H NEGATIVE Urine RBC 0-2 /HPF Urine WBC 0-2 /HPF Urine Crystals PRESENT H /LPF Urine Amorphous Sediment MOD ELISHA URATES H /LPF Urine Bacteria TRACE /HPF Urine Casts NONE /LPF Urine Mucus NEGATIVE /LPF Urine Culture Indicated NO Micro Results Microbiology 05/31/19 Influenza Types A,B Antigen ([place]) - Final, Complete My Orders Orders - JORY PLASENCIA MD Cbc With Automated Diff (05/31/19 13:36) Comprehensive Metabolic Panel (05/31/19 13:36) Blood Culture (05/31/19 13:36) Sputum Culture (05/31/19 13:36) Urinalysis (05/31/19 13:36) Urine Culture (05/31/19 13:36) Protime With Inr (05/31/19 13:36) Partial Thromboplastin Time (05/31/19 13:36) Chest 1 View, Ap/Pa Only (05/31/19 13:36) Acetaminophen Tablet (Tylenol Tablet) (05/31/19 13:45) Ed Iv/Invasive Line Start (05/31/19 13:36) Ed Iv/Invasive Line Start (05/31/19 13:36) Troponin I (05/31/19 13:36) Vital Signs Adult Sepsis Patie Q15M (05/31/19 13:36) O2 (05/31/19 13:36) Remove Rings In Anticipation O (05/31/19 13:36) Lactic Acid Analyzer (05/31/19 13:36) Influenza A And B Antigens (05/31/19 13:36) Lactated Ringers (Lr 1000 Ml Iv Solution (05/31/19 13:36) Digoxin (05/31/19 13:36) Manual Differential (05/31/19 13:40) Ekg Tracing (05/31/19 14:29) Fentanyl Injection (Sublimaze Injection (05/31/19 15:26) Albuterol/Ipra Inhalation Soln (Duoneb I (05/31/19 15:30) Svn Small Volume Nebulizer (05/31/19 15:26) Piperacillin Sodium/Tazobactam (Zosyn Vi (05/31/19 16:00) Medications Given in ED Current Medications Medications Dose Ordered Sig/Helen Route Start Time Stop Time Status Last Admin Dose Admin Acetaminophen 1,000 mg ONCE PRN PO 05/31/19 13:45 05/31/19 13:56 DC 05/31/19 13:55 1,000 MG Albuterol/ Ipratropium 3 ml ONCE ONCE INH 05/31/19 15:30 05/31/19 15:31 DC 05/31/19 15:35 3 ML Lactated Ringer's 1,000 ml @ 0 mls/hr Q0M ONCE IV 05/31/19 13:36 05/31/19 13:38 DC 05/31/19 13:55 1,000 MLS/HR Vital Signs/I&O 05/31/19 05/31/19 13:15 15:36 Temp 40.0 Pulse 89 Resp 22 B/P (MAP) 135/74 (94) Pulse Ox 93 90 O2 Delivery Nasal Cannula Nasal Cannula O2 Flow Rate 2.00 3.00 Capillary Refill : Less Than 3 Seconds Blood Pressure Mean: 94 Progress Note : Progress Note Seen and evaluated. The assisted from wheelchair to bed which required four- person lift. IV, labs, blood cultures, lactic acid, chest x-ray and urine studies ordered. LR 1 L bolus ordered. Monitor patient. Duo neb ordered. Fentanyl 50 g IV ordered. Monitor patient. 1555: Zosyn 4.5 g IV. Patient does have left lower lobe pneumonia. I did discuss the case with Dr. Tran and she accepts patient for admission, inpatient status. Request consult with Dr. Patel. 1605: Consult Dr. Patel placed. I did discuss the case with Dr. Calderon at 1513 and he is not concerned about digoxin at this point but requests that we hold that which was ordered. We will recheck digoxin in the morning. ECG Initial ECG Impression Date: May 31, 2019 Initial ECG Impression Time: 16:14 Initial ECG Rate: 83 Initial ECG Rhythm: Normal Sinus Initial ECG Comparisson: Unchanged Comment Sinus rhythm with a dance of ST segment consistent with digoxin effect. More pronounced than previous of 05/04/19 although does have similar appearance. No evidence of ST elevation MO. Interpreted by me. Diagnostic Imaging Diagonstic Imaging: Xray Plain Films/CT/US/NM/MRI: chest Comments NAME: MIRIAM RODRIGUES MED REC#: [id number] PT STATUS: REG ER : 1950 PHYSICIAN: JORY PLASENCIA MD ADMIT DATE: 05/31/19/ER Signed Date of Exam: 05/31/19 CHEST 1 VIEW, AP/PA ONLY INDICATION: Fever. TIME OF EXAM: 02:09 p.m. Correlation is made with prior chest from 05/04/2019. FINDINGS: The heart is enlarged. There is central congestion but no overt failure. There is some mild infiltrate or atelectasis in the left base, partially obscuring the left hemidiaphragm. No significant effusion or pneumothorax is seen. IMPRESSION: Cardiomegaly and central congestion with mild left basilar infiltrate or atelectasis. Dictated by: Dictated on workstation # [id number] Dict: 05/31/19 1420 Trans: 05/31/19 1546 Interpreted by: SALLY FUENTES MD Electronically signed by: SALLY FUENTES MD 05/31/19 1546 Departure Communication (Admissions) Time/Spoke to Admitting Phy: 15:55 Time/Spoke to Consulting Phy: 16:05 Impression Primary Impression: Left lower lobe pneumonia Qualified Codes: J18.1 - Lobar pneumonia, unspecified organism Additional Impression: Elevated digoxin level Disposition: ADMITTED INPATIENT Condition: Stable Admissions Decision to Admit Reason: Admit from ER (General) Decision to Admit/Date: May 31, 2019 Time/Decision to Admit Time: 15:55 Departure-Patient Inst. Referrals: HERMINIA YAO MD (PCP/Family) Primary Care Physician JORY PLASENCIA MD May 31, 2019 14:17
[2019-05-31 14:21] LABS: RBC,URINE 0-2 /HPF; WBC,URINE 0-2 /HPF
[2019-05-31 14:22] LABS: AMORPHOUS SEDIMENT,UR MOD AMOR URATES /LPF; BACTERIA,URINE TRACE /HPF
--- NOTE | 2019-05-31 14:26 | Diagnostic Imaging Report ---
INDICATION: Fever. TIME OF EXAM: 02:09 p.m. Correlation is made with prior chest from 05/04/2019. FINDINGS: The heart is enlarged. There is central congestion but no overt failure. There is some mild infiltrate or atelectasis in the left base, partially obscuring the left hemidiaphragm. No significant effusion or pneumothorax is seen. IMPRESSION: Cardiomegaly and central congestion with mild left basilar infiltrate or atelectasis. Dictated by: Dictated on workstation # [id number]
[2019-05-31] MEDS ORDERED: fentaNYL INJECTION 100 MCG/2 ML AMP IVP STA (15:26)
[2019-05-31] MEDS ORDERED: RT-ALBUTEROL/IPRATROPIUM 3 ML (DUONEB) VIAL INH ONE (15:30)
[2019-05-31] MEDS ORDERED: PIPERACILLIN SODIUM/TAZOBACTAM 4.5 GM in NS (IVPB) 100 ML IV ONE (16:00)
[2019-05-31] MEDS ORDERED: RT-ALBUTEROL SULF 2.5 MG/3 ML PRE-MIX VIAL INH STA (16:46)
--- NOTE | 2019-05-31 16:58 | NUR ---
REPORT TAKEN FROM STEFANY CAR AT THIS TIME. THIS RN WILL ASSUME CARE OF THIS PATIENT WHEN SHE ARRIVES BACK TO THIS FLOOR.
[2019-05-31] MEDS ORDERED: CATHETER FLUSH 10 ML SYR IV PRN (17:30)
--- NOTE | 2019-05-31 17:32 | NUR ---
PATIENT TEMPERATURE NOW DOWN TO 101.6. THIS RN WILL CONT TO MONITOR THIS PATIENT .
[2019-05-31] MEDS: NS IV 1000 ML 1,000 ML IV SCH (18:09)
[2019-05-31 18:44] VITALS: BP 110/66
[2019-05-31 20:00] VITALS: BP 119/67
[2019-05-31] MEDS ORDERED: RT-ALBUTEROL/IPRATROPIUM 3 ML (DUONEB) VIAL INH PRN (20:00)
--- NOTE | 2019-05-31 20:53 | History & Physical-Hospitalist ---
History of Present Illness HPI/Chief Complaint Chief complaint: Fever of 104 with presumed pneumonia History of present illness: This is a 68-year-old white female clinic patient of [facility] who resides at [facility] for the past 7 years who is had multiple hospital stays in the last several months most recently a couple weeks ago who presented to the ER with 104.4 fever influenza was negative but appears to have bilateral basilar pneumonia. She was also found to have decubitus ulcers that are new since the last time seen at the hospital per nursing staff 2 weeks ago. At this current time patient is stable but very fatigued and hurts everywhere. Labs were reviewed along with imaging. Source: patient, RN/MD, old records Exam Limitations: no limitations Date Seen 05/31/19 Time Seen by a Provider: 17:00 Attending Physician Fadumo Tran David F MD Referring Physician Date of Admission May 31, 2019 at 16:07 Home Medications & Allergies Home Medications Reviewed patient Home Medication Reconciliation performed by pharmacy medication reconciliations general technician and/or nursing. Patients Allergies have been reviewed. Allergies Allergies Coded Allergies sulfamethoxazole (Verified Allergy, Unknown, 10/13/17) trimethoprim (Verified Allergy, Unknown, 10/13/17) Past Ttsejbf-Tfpxeg-Lxtgyd Hx Past Med/Social Hx: Reviewed Nursing Past Med/Soc Hx, Reviewed and Corrections made Patient Social History Marrital Status: single Employed/Student: retired Alcohol Use: Denies Use Recreational Drug Use: No Smoking Status: Former Smoker Former Smoker, Quit: Sep 13, 1999 Type Used: Cigarettes 2nd Hand Smoke Exposure: No Recent Foreign Travel: No Contact w/other who traveled: No Recent Hopitalizations: No Recent Infectious Disease Expo: No Immunizations Up To Date Tetanus Booster (TDap): Unknown Seasonal Allergies Seasonal Allergies: Yes Past Medical History Surgeries: Cardiac, Joint Replacement, Nose, Orthopedic Respiratory: COPD Currently Using CPAP: No Currently Using BIPAP: No Cardiac: Chronic Edema/Swelling, Coronary Artery Disease, High Cholesterol Neurological: Stroke : No 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: No Menopausal Genitourinary: Kidney Stones, Renal Failure Gastrointestinal: Gastroesophageal Reflux, Chronic Constipation, Hemorrhoids, Ulcer Musculoskeletal: Arthritis Endocrine: Diabetes, Insulin dep HEENT: Dysphagia Loss of Vision: Denies Hearing Impairment: Denies Psychosocial: Sleep Difficulties, Anxiety, Depression History of Blood Disorders: No Adverse Reaction to Blood Shoemaker: No (No bllod transfusions d/t JW) Family History Reviewed Nursing Family Hx Completed stroke 19 FATHER G8 BROTHER Diabetes mellitus G8 BROTHER Hypertension 19 FATHER 19 MOTHER CVA, Diabetes Review of Systems Constitutional: see HPI, fever, weakness EENTM: no symptoms reported Respiratory: cough Cardiovascular: no symptoms reported Gastrointestinal: no symptoms reported Genitourinary: no symptoms reported Musculoskeletal: no symptoms reported Skin: see HPI Psychiatric/Neurological: No Symptoms Reported Physical Exam Physical Exam Vital Signs Vital Signs - First Documented 05/31/19 13:15 Temp 40.0 Pulse 89 Resp 22 B/P (MAP) 135/74 (94) Pulse Ox 93 O2 Delivery Nasal Cannula O2 Flow Rate 2.00 Capillary Refill : Less Than 3 SecondsLess Than 3 Seconds Height, Weight, BMI Height: 5'6.00" Weight: 118lbs. 0.5oz. 53.307967uk; 47.83 BMI Method:Estimated General Appearance: WD/WN, Chronically ill, Mild Distress, Obese Eyes: Right Eye Normal Inspection, Right Eye PERRL HEENT: PERRL/EOMI, Normal ENT Inspection, Pharynx Normal, Moist Mucous Membranes Neck: Full Range of Motion, Normal Inspection, Non Tender Respiratory: Chest Non Tender, Lungs Clear, Normal Breath Sounds, No Accessory Muscle Use, No Respiratory Distress, Decreased Breath Sounds (bases) Cardiovascular: Regular Rate, Rhythm, No Edema, No Gallop, No JVD, No Murmur, Normal Peripheral Pulses Gastrointestinal: Normal Bowel Sounds, No Organomegaly, No Pulsatile Mass, Non Tender, Soft Back: Normal Inspection, No CVA Tenderness, No Vertebral Tenderness Extremity: Normal Capillary Refill, Normal Inspection, Normal Range of Motion, Non Tender, No Calf Tenderness, No Pedal Edema Neurologic/Psychiatric: Alert, Oriented x3, No Motor/Sensory Deficits, Normal 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 Assessment/Plan Admission Diagnosis Assessment: Fever Sepsis Pneumonia Decubitus ulcers senior living resident Frail status Plan: Antibiotics IV fluids Antipyretics Home meds Admission Status: Inpatient Order (span 2 midnights) Reason for Inpatient Admission: High fever and pneumonia in NH patient will require 3 days Diagnosis/Problems Diagnosis/Problems (1) Left lower lobe pneumonia Status: Acute Qualifiers: Pneumonia type: due to unspecified organism Qualified Codes: J18.1 - Lobar pneumonia, unspecified organism (2) Sepsis Status: Acute Qualifiers: Sepsis type: sepsis due to unspecified organism Sepsis acute organ dysfunction status: unspecified Qualified Codes: A41.9 - Sepsis, unspecified organism (3) Renal insufficiency Status: Chronic (4) Morbid obesity Status: Chronic (5) Leukocytosis Status: Acute Qualifiers: Leukocytosis type: leukemoid reaction Qualified Codes: D72.823 - Leukemoid reaction (6) IDDM (insulin dependent diabetes mellitus) Status: Chronic (7) Dehydration Status: Acute (8) Chronic kidney disease, stage 4 (severe) Status: Chronic Clinical Quality Measures DVT/VTE Risk/Contraindication: Risk Factor Score Per Nursin RFS Level Per Nursing on Admit: 4+=Very High FADUMO TRAN DO May 31, 2019 20:53
[2019-05-31] MEDS: ENOXAPARIN 40 MG/0.4 ML (LOVENOX) SYR SQ SCH (21:25)
[2019-05-31] MEDS: inSUlin ASPART (NovoLOG) 1 UNIT/0.01 ML (CHARGE PER UNIT) SC SCH (21:26)
--- NOTE | 2019-05-31 21:40 | NUR ---
PTS TEMP IS CURRENTLY 100.8. SPOKE WITH DR. RUSH AND INFORMED HER OF PTS CONDITION. TELEPHONE ORDERS RECEIVED FOR TYLENOL 650MG PO Q6HRS PRN, FENTANYL 25MCG IV Q4HRS PRN, ZOFRAN 8MG IV Q6HRS PRN.
[2019-05-31] MEDS ORDERED: fentaNYL INJECTION 100 MCG/2 ML AMP IVP PRN (22:00)
[2019-05-31] MEDS ORDERED: ACETAMINOPHEN 325 MG TABLET PO PRN (22:00)
[2019-05-31] MEDS ORDERED: ONDANSETRON 4 MG/2 ML (SDV) Z0FRAN IVP PRN (22:00)
[2019-05-31] MEDS: PIPERACILLIN/TAZO 4.5 GM/NS 100 ML IV SCH ×2 (22:35)
[2019-05-31 23:50] VITALS: BP 125/60
[2019-06-01 04:41] VITALS: BP 142/66
[2019-06-01 06:26] LABS: BASOPHILS % (AUTO) 0 % (0-10); EOSINOPHILS % (AUTO) 0 % (0-10); HEMATOCRIT 30 % (35-52); HEMOGLOBIN 9.3 G/DL (11.5-16.0); LYMPHOCYTES # (AUTO) 0.8 X 10^3 (1.0-4.0); LYMPHOCYTES % (AUTO) 8 % (12-44); MEAN CORPUSCULAR HEMOGLOBIN 27 PG (25-34); MEAN CORPUSCULAR HGB CONC 31 G/DL (32-36); MEAN CORPUSCULAR VOLUME 88 FL (80-99); MEAN PLATELET VOLUME 10.4 FL (7.4-10.4); MONOCYTES # (AUTO) 0.7 X 10^3 (0.0-1.0); MONOCYTES % (AUTO) 7 % (0-12); NEUTROPHILS # (AUTO) 8.9 X 10^3 (1.8-7.8); NEUTROPHILS % (AUTO) 85 % (42-75); PLATELET COUNT 165 10^3/uL (130-400); RED CELL DISTRIBUTION WIDTH 17.3 % (10.0-14.5); WHITE BLOOD COUNT 10.5 10^3/uL (4.3-11.0)
[2019-06-01] MEDS: NS IV 1000 ML 1,000 ML IV SCH ×2 (06:26→20:37)
[2019-06-01] MEDS: PIPERACILLIN/TAZO 4.5 GM/NS 100 ML IV SCH ×6 (06:26→23:47)
[2019-06-01] MEDS: inSUlin ASPART (NovoLOG) 1 UNIT/0.01 ML (CHARGE PER UNIT) SC SCH ×4 (06:27→20:01)
[2019-06-01 06:59] LABS: ALBUMIN 2.7 GM/DL (3.2-4.5); BILIRUBIN,TOTAL 0.7 MG/DL (0.1-1.0); CALCIUM 7.9 MG/DL (8.5-10.1); CREATININE SERUM 1.95 MG/DL (0.60-1.30); POTASSIUM 3.6 MMOL/L (3.6-5.0); TOTAL PROTEIN 5.5 GM/DL (6.4-8.2)
--- NOTE | 2019-06-01 07:06 | Pulmonary Consultation ---
History of Present Illness History of Present Illness Date of Consultation 06/01/19 07:01 Time Seen by Provider: 07:01 Date of Admission History of Present Illness 68yo from [facility] admitted from ED secondary to fever 104.4 and found to have LLL PNA. Pt was also found to have a decubitus ulcer. Pt has hx of multiple hospitalizations. She has had similar episodes. I am consulted for pulmonary management. Allergies and Home Medications Allergies Coded Allergies: sulfamethoxazole (Verified Allergy, Unknown, 10/13/17) trimethoprim (Verified Allergy, Unknown, 10/13/17) Home Medications Acetaminophen 500 Mg Tablet, 1,000 MG PO Q6H PRN for PAIN-MILD OR TEMPATURE, (Reported) Albuterol Sulfate 2.5 Mg/3 Ml Vial.neb, 2.5 MG NEB Q4H PRN for WHEEZING, (Reported) Apixaban 5 Mg Tablet, 5 MG PO BID, (Reported) Aspirin 81 Mg Tablet.dr, 81 MG PO BID, (Reported) Atorvastatin Calcium 40 Mg Tablet, 40 MG PO 1800, (Reported) B Complex with Vitamin C 1 Each Tablet, 1 TAB PO DAILY, (Reported) Bethanechol Chloride 10 Mg Tablet, 10 MG PO BID, (Reported) Bisacodyl 10 Mg Supp.rect, 10 MG RC DAILY PRN for CONSTIPATION-4TH LINE, (Reported) Budesonide/Formoterol Fumarate 10.2 Gm Hfa.aer.ad, 2 PUFF IH BID, (Reported) Cholecalciferol 5,000 Unit Capsule, 5,000 UNIT PO HS, (Reported) Cinnamon Bark 500 Mg Capsule, 1,000 MG PO DAILY, (Reported) TAKES 2 (500 MG) CAPSULES Citalopram Hydrobromide 10 Mg Tablet, 10 MG PO DAILY, (Reported) Cranberry Extract 500 Mg Tablet, 1,000 MG PO DAILY, (Reported) Digoxin 250 Mcg Tablet, 0.25 MG PO DAILY Prescribed by: EUSEBIO WARD on 05/01/19 144 Diltiazem HCl 180 Mg Cap.er.24h, 180 MG PO DAILY Prescribed by: EUSEBIO WARD on 05/01/19 144 Docusate Sodium 100 Mg Capsule, 100 MG PO BID, (Reported) Dronedarone HCl 400 Mg Tablet, 400 MG PO BID Prescribed by: EUSEBIO WARD on 05/01/19 1448 Dulaglutide 1.5 Mg/0.5 Ml Pen.injctr, 1.5 MG SQ We, (Reported) Empagliflozin 10 Mg Tablet, 10 MG PO DAILY, (Reported) Epoetin He-Epbx 2,000 Unit/1 Ml Vial, 2,000 UNIT IJ three times per week Prescribed by: EUSEBIO WARD on 05/02/19 1026 Ferrous Sulfate 325 Mg Tablet, 325 MG PO DAILY, (Reported) Fluticasone Propionate 16 Gm [place].susp, 2 SPRAYS NS DAILY, (Reported) Furosemide 40 Mg Tablet, 40 MG PO DAILY Prescribed by: EUSEBIO WARD on 05/01/19 1448 Gabapentin 300 Mg Capsule, 300 MG PO BID, (Reported) Gluc Angulo/Chondro Angulo A/Vit C/Mn 1 Each Tablet, 2 TAB PO DAILY, (Reported) Guaifenesin/Dextromethorphan 473 Ml Syrup, 10 ML PO Q4H PRN for COUGH, (R eported) Insulin Detemir 100 Unit/1 Ml Insuln.pen, 45 UNIT SQ BID, (Reported) Magnesium Hydroxide 400 Mg/5 Ml Oral.susp, 30 ML PO DAILY PRN for CONSTIPATION- 7TH LINE, (Reported) Melatonin 3 Mg Tablet, 3 MG PO HS, (Reported) Metoprolol Succinate 100 Mg Tab.er.24h, 100 MG PO DAILY, (Reported) HOLD FOR SYSTOLIC BP <100 AND HEART RATE <60 Miconazole Nitrate 10 Gm Powder, TOP BID, (Reported) APPLY TO GROIN AND UNDER BREASTS Multivits W-Fe,Other Min/Lut 1 Each Tablet, 1 TAB PO TID, (Reported) [place]-3/Dha/Epa/Fish Oil 1 Each Capsule, 2 CAP PO DAILY, (Reported) Pantoprazole Sodium 40 Mg Tablet.dr, 40 MG PO 1400, (Reported) Phenyleph/Mineral Oil/Petrolat 57 Gm Oint.appl, RC Q12H PRN for HEMORRHOIDS, (Reported) Sodium Chloride 104 Ml [place], 2 SPRAYS NS Q4H PRN for DRY NOSE, (Reported) Sucralfate 1 Gm Tablet, 1 GM PO ACHS Prescribed by: EUSEBIO WARD on 05/01/19 1448 Valerian Root 500 Mg Capsule, 530 MG PO DAILY PRN for ANXIETY, (Reported) [Blood Sugar 360] , 1 CAP PO UD PRN for BLOOD SUGAR MAINTENANCE, (Reported) [digize oil] , TOP UD PRN for DIGESTIVE DIFFICULTIES, (Reported) MAY BE USED TOPICALLY OR DABBED INSIDE MOUTH ON CHEEK, KEEP AT BEDSIDE AND SELF ADMINISTER FOR DIGESTIVE DIFFICULTIES. Past Mgewggb-Ungngr-Tygheh Hx Past Med/Social Hx: Reviewed Nursing Past Med/Soc Hx, Reviewed and Corrections made Patient Social History Alcohol Use: Denies Use Recreational Drug Use: No Smoking Status: Former Smoker Type Used: Cigarettes Former Smoker, Quit: Sep 13, 1999 2nd Hand Smoke Exposure: No Recent Foreign Travel: No Contact w/Someone Who Travel: No Recent Infectious Disease Expo: No Recent Hopitalizations: No Physical Abuse: No Sexual Abuse: No Mistreated: No Fear: No Immunizations Up To Date Tetanus Booster (TDap): Unknown Seasonal Allergies Seasonal Allergies: Yes Past Medical History Surgeries: Yes Cardiac, Joint Replacement, Nose, Orthopedic Respiratory: Yes (03/2017-REPSIRATORY ARREST DUE TO ASPIRATION WITH ASPIRATION PNEUMONIA) Pneumonia, Sleep Apnea, COPD Currently Using CPAP: No Currently Using BIPAP: No Cardiac: Yes Chronic Edema/Swelling, Coronary Artery Disease, High Cholesterol Neurological: Yes (CVA WITH LEFT SIDE FLACCID PARALYSIS, DYSPHAGIA AND DYSPHASIA) Stroke : No 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 Genitourinary: Yes (OVERACTIVE BLADDER) Kidney Stones, Renal Failure Gastrointestinal: Yes (DYSPHAGIA) Gastroesophageal Reflux, Chronic Constipation, Hemorrhoids, Ulcer Musculoskeletal: Yes Arthritis Endocrine: Yes Diabetes, Insulin dep HEENT: Yes (Nasal SX; DYSPHAGIA; CHRONIC RHINITIS) Dysphagia Loss of Vision: Denies Hearing Impairment: Denies Cancer: No Psychosocial: Yes Sleep Difficulties, Anxiety, Depression Integumentary: No Blood Disorders: No Adverse Reaction/Blood Tranf: No (No bllod transfusions d/t JW) Family Medical History Reviewed Nursing Family Hx Completed stroke 19 FATHER G8 BROTHER Diabetes mellitus G8 BROTHER Hypertension 19 FATHER 19 MOTHER CVA, Diabetes Review of Systems Time Seen by Provider: 07:06 Constitutional: Fever, Chills, Sweats, Weakness, Malaise, Other Eyes: No: Pain, Vision change, Conjunctivae inflammation, Eyelid inflammation, Other, Redness ENT: Nose congestion; No: Ear pain, Ear discharge, Nose pain, Nose discharge, Mouth pain, Mouth swelling, Throat pain, Throat swelling, Other Respiratory: Cough, Shortness of breath, SOB with excertion, Wheezing; No: Wheezing, Hemoptysis Genitourinary: No Dysuria, No Frequency, No Incontinence, No Hematuria, No Retention, No Other Skin: No: Rash, Lesions, Jaundice, Bruising, Other Neurological: Weakness; No: Numbness, Incoordination, Change in speech, Confusion, Seizures, Other Sepsis Event Evaluation Height, Weight, BMI Height: 5'6.00" Weight: 118lbs. 0.5oz. 53.975258uw; 47.83 BMI Method:Estimated Exam Exam Vital Signs Date Time Temp Pulse Resp B/P (MAP) Pulse Ox O2 Delivery O2 Flow Rate FiO2 06/01/19 04:41 37.4 76 20 142/66 (91) 95 Nasal Cannula 2.00 06/01/19 01:00 74 05/31/19 23:50 38.5 76 20 125/60 (81) 94 Nasal Cannula 2.00 05/31/19 20:00 Nasal Cannula 4.00 05/31/19 20:00 38.2 83 22 119/67 (84) 94 Nasal Cannula 2.00 05/31/19 19:48 91 4.00 05/31/19 19:43 91 05/31/19 18:50 74 05/31/19 18:44 38.7 80 24 110/66 94 Nasal Cannula 2.00 05/31/19 17:44 93 Nasal Cannula 2.00 05/31/19 17:38 38.7 81 16 Nasal Cannula 2.00 05/31/19 17:03 82 20 102/54 93 Nasal Cannula 2.00 05/31/19 16:58 92 Nasal Cannula 3.00 05/31/19 15:36 90 Nasal Cannula 3.00 05/31/19 13:15 40.0 89 22 135/74 (94) 93 Nasal Cannula 2.00 I & O 06/01/19 07:00 Intake Total 3760 ml Output Total 1075 ml Balance 2685 ml Height & Weight Height: 5'6.00" Weight: 118lbs. 0.5oz. 53.724709kq; 47.83 BMI Method:Estimated General Appearance: WD/WN, Chronically ill, Mild Distress, Obese HEENT: PERRL/EOMI, Normal ENT Inspection, Pharynx Normal, Moist Mucous Membranes Neck: Full Range of Motion, Normal Inspection, Non Tender Respiratory: Chest Non Tender, Lungs Clear, Normal Breath Sounds, No Accessory Muscle Use, No Respiratory Distress, Decreased Breath Sounds (bases) Cardiovascular: Regular Rate, Rhythm, No Edema, No Gallop, No JVD, No Murmur, Normal Peripheral Pulses Capillary Refill: Less Than 3 Seconds Extremity: Normal Capillary Refill, Normal Inspection, Normal Range of Motion, Non Tender, No Calf Tenderness, No Pedal Edema Neurologic/Psychiatric: Alert, Oriented x3, No Motor/Sensory Deficits, Normal 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
[2019-06-01 07:52] LABS: CALCIUM 7.8 MG/DL (8.5-10.1); CREATININE SERUM 1.9 MG/DL (0.60-1.30); POTASSIUM 3.6 MMOL/L (3.6-5.0)
[2019-06-01 08:00] VITALS: BP 124/57
[2019-06-01] MEDS: RT-ALBUTEROL/IPRATROPIUM 3 ML (DUONEB) VIAL INH SCH ×4 (08:07→20:31)
--- NOTE | 2019-06-01 08:46 | NUR ---
CALLED [employer] TO REQUEST THEM TO FAX A COPY OF THE MAR, THEY STATE THEY SENT ONE WITH HER YESTERDAY HOWEVER IT IS NOT ON HER CHART. THEY ARE FAXING IT SOON THEY CAN. Addendum: 06/01/19 at 1110 by JORGE ASH [facility] CALLED DOWN TO ED, THEY REPORT THEY SENT THE LIST UP WITH THE PATIENT LAST NIGHT. IT IS NOT ON THE CHART OR SCANNED IN AT THIS TIME. I CALLED BACK TO [employer], SHE FORGOT TO SEND ME THIS MAR BUT IS SENDING IT NOW.
--- NOTE | 2019-06-01 08:49 | Consultation-Cardiology ---
HPI-Cardiology Cardiology Consultation Date of Consultation 06/01/19 Date of Admission Time Seen by Provider: 08:10 Indication: PAF HPI Patient is a 68 y/o female with history of PAF, HTN, DVT, COPD, multiple admissions over the past several months. Brought in from [facility] with complaints of AMS and increased shortness of breath over the past week. Had fever of 104 on admission. Workup done in ER revealed pneumonia. Currently on IV antibiotics. Appears alert this morning. Continues to complain of dyspnea. Denies any chest pain or palpitations. Denies dizziness or lightheadedness. Home Medications & Allergies Allergies: Coded Allergies: sulfamethoxazole (Verified Allergy, Unknown, 10/13/17) trimethoprim (Verified Allergy, Unknown, 10/13/17) Home Medication List Reviewed: Yes [id number] Hx Patient Social History Marital Status: single Employed/Student: retired Alcohol Use: Denies Use Recreational Drug Use: No Smoking Status: Former Smoker Former smoker/When Quit: Sep 13, 1999 Type Used: Cigarettes 2nd Hand Smoke Exposure: No Recent Foreign Travel: No Recent Infectious Disease Expo: No Recent Hopitalizations: No Immunizations Up To Date Tetanus Booster (TDap): Unknown Past Medical History Discussed below Family Medical History Significant Family History: CVA, Diabetes Family History: Completed stroke 19 FATHER G8 BROTHER Diabetes mellitus G8 BROTHER Hypertension 19 FATHER 19 MOTHER Review of Systems-General Review of Systems Constitutional: see HPI, fever, weakness EENTM: no symptoms reported Respiratory: cough Cardiovascular: no symptoms reported Gastrointestinal: no symptoms reported Genitourinary: no symptoms reported Musculoskeletal: no symptoms reported Skin: see HPI Psychiatric/Neurological: No Symptoms Reported All Other Systems Reviewed Negative Unless Noted: Yes Reviewed Test Results Reviewed Test Results Lab Laboratory Tests Test 05/31/19 13:40 05/31/19 13:51 05/31/19 16:00 05/31/19 18:06 Range/Units White Blood Count 15.4 H 4.3-11.0 10^3/uL Red Blood Count 4.28 L 4.35-5.85 10^6/uL Hemoglobin 11.4 L 11.5-16.0 G/DL Hematocrit 37 35-52 % Mean Corpuscular Volume 87 80-99 FL Mean Corpuscular Hemoglobin 27 25-34 PG Mean Corpuscular Hemoglobin Concent 31 L 32-36 G/DL Red Cell Distribution Width 17.8 H 10.0-14.5 % Platelet Count 225 130-400 10^3/uL Mean Platelet Volume 9.7 7.4-10.4 FL Neutrophils (%) (Auto) 92 H 42-75 % Lymphocytes (%) (Auto) 4 L 12-44 % Monocytes (%) (Auto) 4 0-12 % Eosinophils (%) (Auto) 0 0-10 % Basophils (%) (Auto) 0 0-10 % Neutrophils # (Auto) 14.2 H 1.8-7.8 X 10^3 Lymphocytes # (Auto) 0.6 L 1.0-4.0 X 10^3 Monocytes # (Auto) 0.7 0.0-1.0 X 10^3 Eosinophils # (Auto) 0.0 0.0-0.3 10^3/uL Basophils # (Auto) 0.0 0.0-0.1 10^3/uL Neutrophils % (Manual) 87 % Lymphocytes % (Manual) 2 % Monocytes % (Manual) 8 % Band Neutrophils 3 % Anisocytosis MODERATE Prothrombin Time 19.8 H 12.2-14.7 SEC INR Comment 1.6 H 0.8-1.4 Activated Partial Thromboplast Time 38 H 24-35 SEC Sodium Level 135 135-145 MMOL/L Potassium Level 4.2 3.6-5.0 MMOL/L Chloride Level 103 98-107 MMOL/L Carbon Dioxide Level 24 21-32 MMOL/L Anion Gap 8 5-14 MMOL/L Blood Urea Nitrogen 20 H 7-18 MG/DL Creatinine 1.90 H 0.60-1.30 MG/DL Estimat Glomerular Filtration Rate 26 BUN/Creatinine Ratio 11 Glucose Level 203 H 70-105 MG/DL Lactic Acid Level 2.22 *H 1.74 0.50-2.00 MMOL/L Calcium Level 8.5 8.5-10.1 MG/DL Corrected Calcium 9.1 8.5-10.1 MG/DL Total Bilirubin 0.6 0.1-1.0 MG/DL Aspartate Amino Transf (AST/SGOT) 25 5-34 U/L Alanine Aminotransferase (ALT/SGPT) 18 0-55 U/L Alkaline Phosphatase 138 H 40-136 U/L Troponin I < 0.028 <0.028 NG/ML Total Protein 7.1 6.4-8.2 GM/DL Albumin 3.3 3.2-4.5 GM/DL Digoxin Level 2.80 *H 0.80-2.00 NG/ML Urine Color YELLOW Urine Clarity CLEAR Urine pH 5 5-9 Urine Specific [place] 1.020 1.016-1.022 Urine Protein 2+ H NEGATIVE Urine Glucose (UA) 4+ H NEGATIVE Urine Ketones NEGATIVE NEGATIVE Urine Nitrite NEGATIVE NEGATIVE Urine Bilirubin NEGATIVE NEGATIVE Urine Urobilinogen NORMAL NORMAL MG/DL Urine Leukocyte Esterase 1+ H NEGATIVE Urine RBC (Auto) 1+ H NEGATIVE Urine RBC 0-2 /HPF Urine WBC 0-2 /HPF Urine Crystals PRESENT H /LPF Urine Amorphous Sediment MOD ELISHA URATES H /LPF Urine Bacteria TRACE /HPF Urine Casts NONE /LPF Urine Mucus NEGATIVE /LPF Urine Culture Indicated NO Glucometer 138 H 70-110 MG/DL Test 05/31/19 19:40 06/01/19 05:32 06/01/19 06:04 06/01/19 07:25 Range/Units Glucometer 191 H 148 H 70-110 MG/DL White Blood Count 10.5 4.3-11.0 10^3/uL Red Blood Count 3.45 L 4.35-5.85 10^6/uL Hemoglobin 9.3 L 11.5-16.0 G/DL Hematocrit 30 L 35-52 % Mean Corpuscular Volume 88 80-99 FL Mean Corpuscular Hemoglobin 27 25-34 PG Mean Corpuscular Hemoglobin Concent 31 L 32-36 G/DL Red Cell Distribution Width 17.3 H 10.0-14.5 % Platelet Count 165 130-400 10^3/uL Mean Platelet Volume 10.4 7.4-10.4 FL Neutrophils (%) (Auto) 85 H 42-75 % Lymphocytes (%) (Auto) 8 L 12-44 % Monocytes (%) (Auto) 7 0-12 % Eosinophils (%) (Auto) 0 0-10 % Basophils (%) (Auto) 0 0-10 % Neutrophils # (Auto) 8.9 H 1.8-7.8 X 10^3 Lymphocytes # (Auto) 0.8 L 1.0-4.0 X 10^3 Monocytes # (Auto) 0.7 0.0-1.0 X 10^3 Eosinophils # (Auto) 0.0 0.0-0.3 10^3/uL Basophils # (Auto) 0.0 0.0-0.1 10^3/uL Sodium Level 137 136 135-145 MMOL/L Potassium Level 3.6 3.6 3.6-5.0 MMOL/L Chloride Level 104 103 98-107 MMOL/L Carbon Dioxide Level 23 24 21-32 MMOL/L Anion Gap 10 9 5-14 MMOL/L Blood Urea Nitrogen 21 H 21 H 7-18 MG/DL Creatinine 1.95 H 1.90 H 0.60-1.30 MG/DL Estimat Glomerular Filtration Rate 25 26 BUN/Creatinine Ratio 11 11 Glucose Level 140 H 130 H 70-105 MG/DL Calcium Level 7.9 L 7.8 L 8.5-10.1 MG/DL Corrected Calcium 8.9 8.5-10.1 MG/DL Total Bilirubin 0.7 0.1-1.0 MG/DL Aspartate Amino Transf (AST/SGOT) 29 5-34 U/L Alanine Aminotransferase (ALT/SGPT) 16 0-55 U/L Alkaline Phosphatase 92 40-136 U/L Total Protein 5.5 L 6.4-8.2 GM/DL Albumin 2.7 L 3.2-4.5 GM/DL Digoxin Level 2.55 *H 0.80-2.00 NG/ML Lactic Acid Level 0.77 0.50-2.00 MMOL/L B-Type Natriuretic Peptide 615.8 H <100.0 PG/ML Physical Exam Physical Exam Vital Signs Vital Signs - First Documented 05/31/19 13:15 Temp 40.0 Pulse 89 Resp 22 B/P (MAP) 135/74 (94) Pulse Ox 93 O2 Delivery Nasal Cannula O2 Flow Rate 2.00 Capillary Refill : Less Than 3 SecondsLess Than 3 Seconds Height, Weight, BMI Height: 5'6.00" Weight: 118lbs. 0.5oz. 53.051557eu; 47.83 BMI Method:Estimated General Appearance: WD/WN, Chronically ill, Mild Distress, Obese Eyes: Right Eye Normal Inspection, Right Eye PERRL HEENT: PERRL/EOMI, Normal ENT Inspection, Pharynx Normal, Moist Mucous Membranes Neck: Full Range of Motion, Normal Inspection, Non Tender Respiratory: Chest Non Tender, Lungs Clear, Normal Breath Sounds, No Accessory Muscle Use, No Respiratory Distress, Decreased Breath Sounds (bases) Cardiovascular: Regular Rate, Rhythm, No Edema, No Gallop, No JVD, No Murmur, Normal Peripheral Pulses Gastrointestinal: Normal Bowel Sounds, No Organomegaly, No Pulsatile Mass, Non Tender, Soft Back: Normal Inspection, No CVA Tenderness, No Vertebral Tenderness Extremity: Normal Capillary Refill, Normal Inspection, Normal Range of Motion, Non Tender, No Calf Tenderness, No Pedal Edema Neurologic/Psychiatric: Alert, Oriented x3, No Motor/Sensory Deficits, Normal Mood/Affect, 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 Patel and Dr. Tran. Paroxysmal atrial fibrillation, underwent LIZETH with cardioversion on April 24, 2019, went back to atrial fibrillation, currently on Multaq, digoxin, Cardizem, Toprol XL, Eliquis. Dig level elevated, I will discontinue digoxin at this time. Chronic anticoagulation for history of DVT, maintained on Eliquis 5 mg twice daily. History of recent RLE cellulitis and nonhealing wound, had abnormal TIANNA, arterial ultrasound did not show significant obstructive disease. Status post respiratory failure, history of COPD, obesity hypoventilation syndrome. Has been managed by Dr. Patel. History of Anemia,has refused blood transfusion in the past, managed by Dr. Almazan History of Deep venous thrombosis, noted on February 19, 2019 after emergency room visit for chest pain and shortness of breath, continue on Eliquis History of CVA, left-sided paralysis, continue on aspirin with Eliquis. Continue to monitor History of renal failure, chronic kidney disease stage 3-4, seen Dr. Branham in the past.. Continue to monitor renal function Nonobstructive coronary artery disease per cardiac catheterization January 2012, continue to monitor Echocardiogram done on February 19, 2019 showing normal left ventricular size and systolic function, ejection fraction 55-65 percent, left atrial dilatation, PA pressure of 20 mmHg. Continue to monitor Hypertension, restart home blood pressure medications and continue to monitor. Hyperlipidemia, continue to monitor lipids Obesity Depression DM Thank you for allowing us to participate in the management of Ms. Harris. This is Gris Omalley PA-C, as a scribe for Dr. Calderon. Patient was seen and evaluated with Gris, laying down in bed, complaining of generalized fatigue and loss of energy. Denied any chest pain. Discussed the management plan, continue on current medication, continue on Eliquis, monitor heart rate, currently in sinus rhythm. I will stop digoxin and continue all other medication. On examination lungs were clear to auscultation, heart is regular. Clinical Quality Measures DVT/VTE Risk/Contraindication: Risk Factor Score Per Nursin RFS Level Per Nursing on Admit: 4+=Very High GRIS WRIGHT Jun 01, 2019 08:49 FARAZ CALDERON MD Jun 01, 2019 09:54
--- NOTE | 2019-06-01 09:38 | NUR ---
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
[2019-06-01] MEDS: POTASSIUM CL 10MEQ/50ML IVPB 50 ML IV SCH ×3 (09:39→14:33)
[2019-06-01] MEDS: ENOXAPARIN 40 MG/0.4 ML (LOVENOX) SYR SQ SCH ×2 (09:39→20:01)
[2019-06-01 09:44] LABS: ABG BASE EXCESS -0.5 MMOL/L (-2.5-2.5); ABG OXYGEN SATURATION 99 % (94-100); ABG PCO2 39 MMHG (35-45); ABG PO2 122 MMHG (79-93); ABG TCO2 24.6 MMOL/L (21.0-31.0)
[2019-06-01 09:46] LABS: ALLENS TEST POS
[2019-06-01 09:47] LABS: INSPIRED O2 4 LITERS; VENTILATOR NO
[2019-06-01 09:48] LABS: PATIENT TEMP 37.6C
--- NOTE | 2019-06-01 11:31 | NUR ---
patient is getting moved to air mattress
[2019-06-01 12:00] VITALS: BP 120/56
--- NOTE | 2019-06-01 12:26 | Diagnostic Imaging Report ---
INDICATION: Shortness of breath. Comparison made with prior examination 05/31/2019. FINDINGS: There is cardiomegaly. There is venous congestion. There are bibasilar infiltrates. There is no pneumothorax. Mediastinum is unremarkable. IMPRESSION: Bibasilar infiltrates left greater than right with a left pleural effusion. Cardiomegaly and some central pulmonary venous congestion. Dictated by: Dictated on workstation # [id number]
--- NOTE | 2019-06-01 12:46 | Progress Note - Hospitalist ---
Subjective HPI/CC On Admission Date Seen by Provider: Jun 01, 2019 Time Seen by Provider: 09:00 Chief complaint: Fever of 104 with presumed pneumonia History of present illness: This is a 68-year-old white female clinic patient of [facility] who resides at [facility] for the past 7 years who is had multiple hospital stays in the last several months most recently a couple weeks ago who presented to the ER with 104.4 fever influenza was negative but appears to have bilateral basilar pneumonia. She was also found to have decubitus ulcers that are new since the last time seen at the hospital per nursing staff 2 weeks ago. At this current time patient is stable but very fatigued and hurts everywhere. Labs were reviewed along with imaging. Subjective/Events-last exam Dr. Patel was consulted, he feels like she is volume overloaded. Dr. Hidalgo will be consulted for decubitus ulcers. Stool will be hemocculted. Digoxin level from 2.8 to 2.5. Air mattress will be provided. Will restart most home medications if able. Creatinine down to 1.9. Review of Systems General: Fatigue Pulmonary: Cough Focused Exam Lactate Level 05/31/19 13:40: Lactic Acid Level 2.22*H 05/31/19 16:00: Lactic Acid Level 1.74 06/01/19 07:25: Lactic Acid Level 0.77 Objective Exam Vital Signs Vital Signs Date Time Temp Pulse Resp B/P (MAP) Pulse Ox O2 Delivery O2 Flow Rate FiO2 06/01/19 20:31 90 Nasal Cannula 3.00 06/01/19 20:00 37.2 77 20 113/65 (81) Capillary Refill : Less Than 3 SecondsLess Than 3 Seconds General Appearance: No Apparent Distress, WD/WN, Anxious, Chronically ill, Obese Respiratory: Chest Non Tender, Lungs Clear, Normal Breath Sounds, No Accessory Muscle Use, No Respiratory Distress, Crackles, Wheezing Cardiovascular: Regular Rate, Rhythm, No Edema, No Gallop, No JVD, No Murmur, Normal Peripheral Pulses Neurologic/Psychiatric: Alert, Oriented x3, No Motor/Sensory Deficits, 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 Assessment/Plan Assessment and Plan Assess & Plan/Chief Complaint Assessment: Sepsis PNA Fever Decubitus ulcers Debility NH patient Plan: Abx Nebs O2 Monitor closely Diagnosis/Problems Diagnosis/Problems (1) Left lower lobe pneumonia Status: Acute Qualifiers: Pneumonia type: due to unspecified organism Qualified Codes: J18.1 - Lobar pneumonia, unspecified organism (2) Sepsis Status: Acute Qualifiers: Sepsis type: sepsis due to unspecified organism Sepsis acute organ dysfunction status: unspecified Qualified Codes: A41.9 - Sepsis, unspecified organism (3) Renal insufficiency Status: Chronic (4) Morbid obesity Status: Chronic (5) Leukocytosis Status: Acute Qualifiers: Leukocytosis type: leukemoid reaction Qualified Codes: D72.823 - Leukemoid reaction (6) IDDM (insulin dependent diabetes mellitus) Status: Chronic (7) Dehydration Status: Acute (8) Chronic kidney disease, stage 4 (severe) Status: Chronic Clinical Quality Measures DVT/VTE Risk/Contraindication: Risk Factor Score Per Nursin RFS Level Per Nursing on Admit: 4+=Very High ALEJANDRA RUSH DO Jun 01, 2019 12:46
[2019-06-01] MEDS ORDERED: SUCR1TAB36 PO (13:15)
[2019-06-01] MEDS ORDERED: AMLO5TAB9 PO (13:15)
[2019-06-01] MEDS ORDERED: DRON400T2 PO (13:15)
[2019-06-01] MEDS ORDERED: LIDO1ADH54 TOP (13:15)
[2019-06-01] MEDS ORDERED: FURO40TA4 PO (13:15)
[2019-06-01] MEDS ORDERED: DIGO250T PO (13:15)
[2019-06-01] MEDS ORDERED: DILT180T9 PO (13:15)
[2019-06-01] MEDS ORDERED: INSU100I29 SQ (13:15)
--- NOTE | 2019-06-01 13:15 | NUR ---
REVIEWED MED REC WITH MAR FROM [facility]
--- NOTE | 2019-06-01 15:36 | NUR ---
RT decreased patients O2 from 4 L to 3 L NC due to patients ABG PO2 being 122
[2019-06-01 16:00] VITALS: BP 122/65
[2019-06-01 20:00] VITALS: BP 113/65
[2019-06-01] MEDS ORDERED: MENTHOL TOP PRN (21:15)
[2019-06-01] MEDS ORDERED: RT-ALBUTEROL SULF 2.5 MG/3 ML PRE-MIX VIAL IH PRN (21:15)
[2019-06-01] MEDS ORDERED: LIDOCAINE TOP PRN (21:15)
[2019-06-01] MEDS ORDERED: PREPARATION H OINTMENT 57 GR TUBE RC PRN (21:15)
[2019-06-01] MEDS ORDERED: NON-FORMULARY MEDICATION 1 EA EA (Acetaminophen 1,000 MG) PO PRN (21:15)
[2019-06-01] MEDS ORDERED: BISACODYL 10 MG SUPP (DULCOLAX) RC PRN (21:15)
[2019-06-02] VITALS: BP 130/70
[2019-06-02 04:03] VITALS: BP 136/63
[2019-06-02 05:00] LABS: BASOPHILS % (AUTO) 0 % (0-10); EOSINOPHILS # (AUTO) 0.1 10^3/uL (0.0-0.3); EOSINOPHILS % (AUTO) 1 % (0-10); HEMATOCRIT 31 % (35-52); HEMOGLOBIN 9.4 G/DL (11.5-16.0); LYMPHOCYTES # (AUTO) 0.9 X 10^3 (1.0-4.0); LYMPHOCYTES % (AUTO) 11 % (12-44); MEAN CORPUSCULAR HEMOGLOBIN 26 PG (25-34); MEAN CORPUSCULAR HGB CONC 30 G/DL (32-36); MEAN CORPUSCULAR VOLUME 87 FL (80-99); MEAN PLATELET VOLUME 9.7 FL (7.4-10.4); MONOCYTES # (AUTO) 0.8 X 10^3 (0.0-1.0); MONOCYTES % (AUTO) 10 % (0-12); NEUTROPHILS # (AUTO) 6.2 X 10^3 (1.8-7.8); NEUTROPHILS % (AUTO) 78 % (42-75); PLATELET COUNT 174 10^3/uL (130-400); RED CELL DISTRIBUTION WIDTH 17.6 % (10.0-14.5)
[2019-06-02 05:23] LABS: ALBUMIN 2.5 GM/DL (3.2-4.5); BILIRUBIN,TOTAL 0.5 MG/DL (0.1-1.0); CALCIUM 7.8 MG/DL (8.5-10.1); CREATININE SERUM 1.58 MG/DL (0.60-1.30); POTASSIUM 3.8 MMOL/L (3.6-5.0); TOTAL PROTEIN 5.5 GM/DL (6.4-8.2)
[2019-06-02] MEDS: inSUlin ASPART (NovoLOG) 1 UNIT/0.01 ML (CHARGE PER UNIT) SC SCH ×4 (05:28→21:00)
[2019-06-02] MEDS: RT-ALBUTEROL/IPRATROPIUM 3 ML (DUONEB) VIAL INH SCH ×4 (06:45→19:10)
[2019-06-02] MEDS ORDERED: SALINE NASAL SPRAY (OCEAN) 45 ML BTL PRN (07:15)
[2019-06-02] MEDS: PIPERACILLIN/TAZO 4.5 GM/NS 100 ML IV SCH ×6 (07:24→23:23)
[2019-06-02 08:00] VITALS: BP 124/65
--- NOTE | 2019-06-02 08:22 | Pulmonary Progress Note ---
ZOIE BLAS,MED STUDENT 06/02/19 0822: Subjective Date Seen by a Provider: Jun 02, 2019 Time Seen by a Provider: 08:16 Subjective/Events-last exam Patient says that she is feeling slightly better than yesterday. She was somewhat difficult to arouse and feel asleep during interview and had to be re- awoke once. ROS - admits to malaise and swelling - denies fever, chills, headache, nausea, vomiting, stomach pain, chest pain, cough Sepsis Event Evaluation Height, Weight, BMI Height: 5'6.00" Weight: 118lbs. 0.5oz. 53.609642jr; 47.83 BMI Method:Estimated Focused Exam Lactate Level 05/31/19 13:40: Lactic Acid Level 2.22*H 05/31/19 16:00: Lactic Acid Level 1.74 06/01/19 07:25: Lactic Acid Level 0.77 Exam Exam Vital Signs Date Time Temp Pulse Resp B/P (MAP) Pulse Ox O2 Delivery O2 Flow Rate FiO2 06/02/19 06:45 91 Nasal Cannula 3.00 06/02/19 04:03 36.8 84 20 136/63 (87) 95 Nasal Cannula 2.00 06/02/19 01:00 79 06/02/19 00:07 76 06/02/19 00:00 37.4 80 20 130/70 (90) 94 Nasal Cannula 3.00 06/01/19 20:31 90 Nasal Cannula 3.00 06/01/19 20:30 Nasal Cannula 2.00 06/01/19 20:00 37.2 77 20 113/65 (81) 94 Nasal Cannula 3.00 06/01/19 19:00 76 06/01/19 16:00 37.4 73 18 122/65 (84) 95 Nasal Cannula 3.00 06/01/19 15:25 94 Nasal Cannula 4.00 06/01/19 13:00 69 06/01/19 12:00 37.3 71 20 120/56 (77) 95 Nasal Cannula 2.00 I & O 06/02/19 07:00 Intake Total 1100 ml Output Total 1825 ml Balance -725 ml Height & Weight Height: 5'6.00" Weight: 118lbs. 0.5oz. 53.366328me; 47.83 BMI Method:Estimated General Appearance: No Apparent Distress, WD/WN, Anxious, Chronically ill, Obese HEENT: Moist Mucous Membranes Respiratory: Chest Non Tender, No Accessory Muscle Use, No Respiratory Distress, Crackles, Wheezing Cardiovascular: Regular Rate, Rhythm, No Gallop, No JVD, No Murmur, Normal Peripheral Pulses Capillary Refill: Less Than 3 Seconds Peripheral Pulses: 2+ Radial Pulses (R), 2+ Radial Pulses (L) Extremity: Normal Capillary Refill, Normal Inspection, Normal Range of Motion, Calf Tenderness, Pedal Edema Neurologic/Psychiatric: Alert, Oriented x3, No Motor/Sensory Deficits, Normal Mood/Affect, 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 Norm as Tested, Depressed Affect, Other (drowsy ) Skin: Normal Color, Warm/Dry Lymphatic: No Adenopathy Results Lab Laboratory Tests 05/31/19 13:40 06/01/19 05:32 06/01/19 07:25 06/02/19 04:40 Assessment/Plan Assessment/Plan LLL Pneumonia with sepsis -Zosyn started 05/31 -Hawkins cultures pending Metabolic lactic acidosis --> resolved -IVF normocytic Anemia -Monitor -Check occult stool --> was positive B/l lower extremity tenderness - b/l Doppler to check for DVT - possible cellulitis Digoxin toxicity - hold digoxin Dehydration -IVF Renal failure CHF Morbid obesity Depression Malaise consider ANKIT or obesity induce hypoventilation - Follow up as outpatient IDDM AMNA PATEL DO 06/02/19 1134: Subjective Time Seen by a Provider: 11:29 Subjective/Events-last exam SOB is improved. Exam Exam General Appearance: No Apparent Distress, WD/WN, Anxious, Chronically ill, Obese HEENT: Moist Mucous Membranes Respiratory: Chest Non Tender, No Accessory Muscle Use, No Respiratory Distress, Crackles, Wheezing Cardiovascular: Regular Rate, Rhythm, No Gallop, No JVD, No Murmur, Normal Peripheral Pulses Extremity: Normal Capillary Refill, Normal Inspection, Normal Range of Motion, Calf Tenderness, Pedal Edema Neurologic/Psychiatric: Alert, Oriented x3, No Motor/Sensory Deficits, Normal Mood/Affect, 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 Norm as Tested, Depressed Affect Skin: Normal Color, Warm/Dry Lymphatic: No Adenopathy Assessment/Plan Assessment/Plan LLL Pneumonia with sepsis -Zosyn started 05/31 -Hawkins cultures pending Pulmonary edema -Start lasix -Hep lock IVF Metabolic lactic acidosis --> resolved -IVF normocytic Anemia -Monitor -Check occult stool --> was positive B/l lower extremity tenderness - b/l Doppler to check for DVT - possible cellulitis Digoxin toxicity - hold digoxin Dehydration -IVF Renal failure CHF Morbid obesity Depression Malaise consider ANKIT or obesity induce hypoventilation - Follow up as outpatient IDDM Supervisory-Addendum Brief Verification & Attestation Participated in pt care: history Personally performed: exam, history Care discussed with: Medical Student Procedures: n/a Verification and Attestation of Medical Student E/M Service A medical student performed and documented this service in my presence. I reviewed and verified all information documented by the medical student and made modifications to such information, when appropriate. I personally performed the physical exam and medical decision making. Amna Patel, Jun 02, 2019,11:36 ZOIE BLAS,MED STUDENT Jun 02, 2019 08:22 AMNA PATEL DO Jun 02, 2019 11:34
[2019-06-02] MEDS ORDERED: NON-FORMULARY MEDICATION 1 EA EA (Empagliflozin (Jardiance) 10 MG) PO SCH (09:00)
[2019-06-02] MEDS ORDERED: NON-FORMULARY MEDICATION 1 EA EA (Cranberry Extract (Cranberry) 1,000 MG) PO SCH (09:00)
[2019-06-02] MEDS: SUCRALFATE 1 GM (CARAFATE) TAB PO SCH ×4 (09:13→23:22)
[2019-06-02] MEDS: APIXABAN 5 MG (ELIQUIS) TABLET PO SCH ×2 (09:13→23:22)
[2019-06-02] MEDS: meTOprolol SUCCINATE 100 MG (TOPROL XL) TAB PO SCH (09:14)
[2019-06-02] MEDS: BETHANECHOL 10 MG (URECHOLINE) TAB PO SCH ×2 (09:14→23:24)
[2019-06-02] MEDS: DILTIAZEM 180 MG (CARDIZEM CD) CAP PO SCH (09:14)
[2019-06-02] MEDS: amLODIPine 5 MG (NORVASC) TAB PO SCH (09:14)
[2019-06-02] MEDS: FERROUS SULF 325 MG (IRON) TAB PO SCH (09:14)
[2019-06-02] MEDS: GABAPENTIN 300 MG (NEURONTIN) CAP PO SCH ×2 (09:14→23:23)
[2019-06-02] MEDS: ENOXAPARIN 40 MG/0.4 ML (LOVENOX) SYR SQ SCH (09:15)
[2019-06-02] MEDS: ASPIRIN E.C. 81 MG (ECOTRIN) TAB PO SCH ×2 (09:15→23:23)
[2019-06-02] MEDS: FLUTICASONE NASAL SPRAY (FLONASE) 16 GM BTL NS SCH (09:16)
[2019-06-02] MEDS: DOCUSATE SODIUM 100 MG (COLACE) CAP PO SCH ×2 (09:17→23:22)
[2019-06-02] MEDS ORDERED: guaiFENesin/DM (ROBITUSSIN DM) 10 ML UDC PO PRN (10:00)
--- NOTE | 2019-06-02 11:33 | Progress Note - Hospitalist ---
Subjective HPI/CC On Admission Date Seen by Provider: Jun 02, 2019 Time Seen by Provider: 10:30 Chief complaint: Fever of 104 with presumed pneumonia History of present illness: This is a 68-year-old white female clinic patient of [facility] who resides at [facility] for the past 7 years who is had multiple hospital stays in the last several months most recently a couple weeks ago who presented to the ER with 104.4 fever influenza was negative but appears to have bilateral basilar pneumonia. She was also found to have decubitus ulcers that are new since the last time seen at the hospital per nursing staff 2 weeks ago. At this current time patient is stable but very fa tigued and hurts everywhere. Labs were reviewed along with imaging. Subjective/Events-last exam Patient having difficulties with decubitus ulcers Remains very complex Overall prognosis is extremely poor given her already long-standing debility requiring custodial placement just overall multiple comorbidities Denies any pain No shortness of breath Will Hep-Lock IV fluid and discontinue telemetry Review of Systems General: Fatigue Pulmonary: Cough Focused Exam Lactate Level 05/31/19 13:40: Lactic Acid Level 2.22*H 05/31/19 16:00: Lactic Acid Level 1.74 06/01/19 07:25: Lactic Acid Level 0.77 Objective Exam Vital Signs Vital Signs Date Time Temp Pulse Resp B/P (MAP) Pulse Ox O2 Delivery O2 Flow Rate FiO2 06/03/19 10:08 90 Nasal Cannula 3.00 06/03/19 08:00 36.8 69 20 122/67 (85) Capillary Refill : Less Than 3 SecondsLess Than 3 Seconds General Appearance: No Apparent Distress, WD/WN, Anxious, Chronically ill, Obe se Respiratory: No Accessory Muscle Use, Decreased Breath Sounds Cardiovascular: Regular Rate, Rhythm Neurologic/Psychiatric: Alert, Oriented x3, No Motor/Sensory Deficits, Normal Mood/Affect, 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 Assessment/Plan Assessment and Plan Assess & Plan/Chief Complaint Assessment: Sepsis PNA Fever Decubitus ulcers Debility NH patient Plan: Abx Hep-locked IV fluid Nebs O2 Monitor closely Diagnosis/Problems Diagnosis/Problems (1) Left lower lobe pneumonia Status: Acute Qualifiers: Pneumonia type: due to unspecified organism Qualified Codes: J18.1 - Lobar pneumonia, unspecified organism (2) Sepsis Status: Acute Qualifiers: Sepsis type: sepsis due to unspecified organism Sepsis acute organ dysfunction status: unspecified Qualified Codes: A41.9 - Sepsis, unspecified organism (3) Renal insufficiency Status: Chronic (4) Morbid obesity Status: Chronic (5) Leukocytosis Status: Acute Qualifiers: Leukocytosis type: leukemoid reaction Qualified Codes: D72.823 - Leukemoid reaction (6) IDDM (insulin dependent diabetes mellitus) Status: Chronic (7) Dehydration Status: Acute (8) Chronic kidney disease, stage 4 (severe) Status: Chronic Clinical Quality Measures DVT/VTE Risk/Contraindication: Risk Factor Score Per Nursin RFS Level Per Nursing on Admit: 4+=Very High ALEJANDRA RUSH DO Jun 02, 2019 11:33
[2019-06-02 12:00] VITALS: BP 124/67
--- NOTE | 2019-06-02 14:21 | Cardiology Progress Note ---
Subjective Date Seen by Provider: Jun 02, 2019 Time Seen by Provider: 14:16 Subjective/Events-last exam Patient is in bed, no new complaint Review of Systems General: No Chills, No Night Sweats, No Fatigue, No Malaise, No Appetite, No Other HEENT: No Head Aches, No Visual Changes, No Eye Pain, No Ear Pain, No Dysphasia, No Sinus Congestion, No Post Nasal Drip, No Sore Throat, No Other Pulmonary: No Dyspnea, No Cough, No Pleuritic Chest Pain, No Other Cardiovascular: No: Chest Pain, Palpitations, Orthopnea, Paroxysmal Noc. Dyspnea, Edema, Lt Headedness, Other Focused Exam Lactate Level 05/31/19 13:40: Lactic Acid Level 2.22*H 05/31/19 16:00: Lactic Acid Level 1.74 06/01/19 07:25: Lactic Acid Level 0.77 Objective-Cardiology Exam Last Set of Vital Signs Vital Signs 06/02/19 12:00 Temp 36.7 Pulse 78 Resp 20 B/P (MAP) 124/67 (86) Pulse Ox 95 O2 Delivery Nasal Cannula O2 Flow Rate 3.00 Capillary Refill : Less Than 3 SecondsLess Than 3 Seconds I&O Intake and Output 06/02/19 00:00 Intake Total 2420 ml Output Total 1725 ml Balance 695 ml Intake Oral 1100 ml IV Total 1320 ml Output Urine Total 1725 ml # Bowel Movements 3 General: Alert, Oriented X3, Cooperative HEENT: Atraumatic, PERRLA Neck: Supple, No JVD, No Thyromegaly Lungs: Clear to Auscultation, Normal Air Movement Heart: Regular Rate, Normal S1, Normal S2, No Murmurs Abdomen: Normal Bowel Sounds, Soft, No Tenderness, No Hepatosplenomegaly, No Masses Extremities: No Clubbing, No Cyanosis, No Edema, Normal Pulses, No Tenderness/Swelling Skin: No Rashes, No Breakdown, No Significant Lesion Neuro: Normal Gait, Normal Speech, Strength at 5/5 X4 Ext, Normal Tone, Sensation Intact Psych/Mental Status: Mental Status NL, Mood NL Results Lab Laboratory Tests 06/02/19 04:40 A/P-Cardiology Admission Diagnosis Pneumonia Paroxysmal atrial fibrillation Hypertension Hyperlipidemia Assessment/Plan Pneumonia- receiving antibiotics, management per Dr. Patel and Dr. Tran. Paroxysmal atrial fibrillation, underwent LIZETH with cardioversion on April 24, 2019, went back to atrial fibrillation, currently on Multaq, digoxin, Cardizem, Toprol XL, Eliquis. Dig level elevated, I will discontinue digoxin at this time. Chronic anticoagulation for history of DVT, maintained on Eliquis 5 mg twice daily. History of recent RLE cellulitis and nonhealing wound, had abnormal TIANNA, arterial ultrasound did not show significant obstructive disease. Acute respiratory failure, better at this time, bilateral pneumonia, ex acerbation of COPD, improving COPD/obesity hypoventilation syndrome, has been managed by Dr. Patel. History of Anemia,has refused blood transfusion in the past, managed by Dr. Almazan History of Deep venous thrombosis, noted on February 19, 2019 after emergency room visit for chest pain and shortness of breath, continue on Eliquis History of CVA, left-sided paralysis, continue on aspirin with Eliquis. Continue to monitor History of renal failure, chronic kidney disease stage 3-4, seen Dr. Branham in the past.. Continue to monitor renal function Nonobstructive coronary artery disease per cardiac catheterization January 2012, continue to monitor Echocardiogram done on February 19, 2019 showing normal left ventricular size and systolic function, ejection fraction 55-65 percent, left atrial dilatation, PA pressure of 20 mmHg. Continue to monitor Hypertension, restart home blood pressure medications and continue to monitor. Hyperlipidemia, continue to monitor lipids Obesity Depression DM Clinical Quality Measures DVT/VTE Risk/Contraindication: Risk Factor Score Per Nursin RFS Level Per Nursing on Admit: 4+=Very High FARAZ ALCALA MD Jun 02, 2019 14:21
--- NOTE | 2019-06-02 14:50 | NUR ---
Pastoral care visit.
[2019-06-02] MEDS: PANTOPRAZOLE 40 MG (PROTONIX) TAB PO SCH (15:08)
--- NOTE | 2019-06-02 15:34 | NUR ---
CM/SS. Patient has established placement with [facility] and will return there when medically stable. Patient was under Medicare skilled benefits prior to hospital admission.
[2019-06-02 16:00] VITALS: BP 116/69
[2019-06-02] MEDS: RT-ADVAIR HFA 115/21 MCG PER PUFF IH SCH ×2 (16:52→19:10)
[2019-06-02 19:47] VITALS: BP 133/69
[2019-06-02] MEDS: MELATONIN 3 MG TABLET PO SCH (23:23)
[2019-06-02] MEDS: VITAMIN D3 5,000 UNITS (CHOLECALCIFEROL ) CAPSULE PO SCH (23:24)
[2019-06-03] VITALS: BP 120/67
--- NOTE | 2019-06-03 01:56 | NUR ---
received report and assumed pt care from Dinora at [phone]
[2019-06-03 04:53] VITALS: BP 116/66
[2019-06-03] MEDS: inSUlin ASPART (NovoLOG) 1 UNIT/0.01 ML (CHARGE PER UNIT) SC SCH ×4 (05:11→20:44)
[2019-06-03] MEDS: PIPERACILLIN/TAZO 4.5 GM/NS 100 ML IV SCH ×6 (06:23→23:39)
[2019-06-03] MEDS: KCL 20 MEQ TAB (K-DUR) PO SCH (06:23)
[2019-06-03] MEDS: RT-ALBUTEROL/IPRATROPIUM 3 ML (DUONEB) VIAL INH SCH ×4 (06:56→18:51)
[2019-06-03] MEDS: RT-ADVAIR HFA 115/21 MCG PER PUFF IH SCH ×2 (06:57→18:51)
[2019-06-03 08:00] VITALS: BP 122/67
[2019-06-03] MEDS: DILTIAZEM 180 MG (CARDIZEM CD) CAP PO SCH (08:42)
[2019-06-03] MEDS: APIXABAN 5 MG (ELIQUIS) TABLET PO SCH ×2 (08:42→21:37)
[2019-06-03] MEDS: ASPIRIN E.C. 81 MG (ECOTRIN) TAB PO SCH ×2 (08:42→21:37)
[2019-06-03] MEDS: FUROSEMIDE 40 MG/4 ML INJ (LASIX) IVP SCH (08:42)
[2019-06-03] MEDS: FERROUS SULF 325 MG (IRON) TAB PO SCH (08:42)
[2019-06-03] MEDS: SUCRALFATE 1 GM (CARAFATE) TAB PO SCH ×4 (08:42→21:37)
[2019-06-03] MEDS: meTOprolol SUCCINATE 100 MG (TOPROL XL) TAB PO SCH (08:42)
[2019-06-03] MEDS: DOCUSATE SODIUM 100 MG (COLACE) CAP PO SCH ×2 (08:42→21:40)
[2019-06-03] MEDS: BETHANECHOL 10 MG (URECHOLINE) TAB PO SCH ×2 (08:42→21:36)
[2019-06-03] MEDS: amLODIPine 5 MG (NORVASC) TAB PO SCH (08:42)
[2019-06-03] MEDS: GABAPENTIN 300 MG (NEURONTIN) CAP PO SCH ×2 (08:42→21:36)
[2019-06-03] MEDS: FLUTICASONE NASAL SPRAY (FLONASE) 16 GM BTL NS SCH (08:43)
--- NOTE | 2019-06-03 08:47 | Pulmonary Progress Note ---
Subjective Time Seen by a Provider: 07:29 Subjective/Events-last exam PT is doing better. Sepsis Event Evaluation Height, Weight, BMI Height: 5'6.00" Weight: 118lbs. 0.5oz. 53.829779xi; 47.83 BMI Method:Estimated Focused Exam Lactate Level 05/31/19 13:40: Lactic Acid Level 2.22*H 05/31/19 16:00: Lactic Acid Level 1.74 06/01/19 07:25: Lactic Acid Level 0.77 Exam Exam Vital Signs Date Time Temp Pulse Resp B/P (MAP) Pulse Ox O2 Delivery O2 Flow Rate FiO2 06/03/19 07:00 Nasal Cannula 3.00 06/03/19 07:00 64 06/03/19 06:59 90 Nasal Cannula 3.00 06/03/19 04:53 36.8 66 20 116/66 (83) 94 Nasal Cannula 3.00 06/03/19 01:00 70 06/03/19 00:00 36.9 72 18 120/67 (84) 94 Nasal Cannula 3.00 06/02/19 20:00 94 Nasal Cannula 3.00 06/02/19 19:47 36.8 73 20 133/69 (90) 94 Nasal Cannula 3.00 06/02/19 19:10 90 Nasal Cannula 3.00 06/02/19 19:10 93 Nasal Cannula 3.00 06/02/19 19:00 71 06/02/19 16:00 37.3 71 20 116/69 (85) 94 Nasal Cannula 3.00 06/02/19 12:55 76 06/02/19 12:00 36.7 78 20 124/67 (86) 95 Nasal Cannula 3.00 06/02/19 10:32 Nasal Cannula 3.00 I & O 06/03/19 07:00 Intake Total 2670 ml Output Total 1400 ml Balance 1270 ml Height & Weight Height: 5'6.00" Weight: 118lbs. 0.5oz. 53.058444rw; 47.83 BMI Method:Estimated General Appearance: No Apparent Distress, WD/WN, Anxious, Chronically ill, Obese HEENT: Moist Mucous Membranes Respiratory: Chest Non Tender, No Accessory Muscle Use, No Respiratory Distress, Crackles, Wheezing Cardiovascular: Regular Rate, Rhythm, No Gallop, No JVD, No Murmur, Normal Peripheral Pulses Capillary Refill: Less Than 3 Seconds Peripheral Pulses: 2+ Radial Pulses (R), 2+ Radial Pulses (L) Extremity: Normal Capillary Refill, Normal Inspection, Normal Range of Motion, Calf Tenderness, Pedal Edema Neurologic/Psychiatric: Alert, Oriented x3, No Motor/Sensory Deficits, Normal Mood/Affect, 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 rising 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 II-XII Norm as Tested, Depressed Affect Skin: Normal Color, Warm/Dry Lymphatic: No Adenopathy Results Lab Laboratory Tests 06/02/19 04:40 Assessment/Plan Assessment/Plan LLL Pneumonia with sepsis -Zosyn started 05/31 -Hawkins cultures pending Pulmonary edema - lasix -Hep lock IVF Metabolic lactic acidosis --> resolved -IVF normocytic Anemia -Monitor -Check occult stool --> was positive B/l lower extremity tenderness - b/l Doppler to check for DVT - possible cellulitis Digoxin toxicity - hold digoxin Dehydration -IVF Renal failure CHF Morbid obesity Depression Malaise consider ANKIT or obesity induce hypoventilation - Follow up as outpatient IDDM AMNA WRIGHT DO Jun 03, 2019 08:46
--- NOTE | 2019-06-03 09:08 | Cardiology Progress Note ---
Subjective Date Seen by Provider: Jun 03, 2019 Time Seen by Provider: 09:07 Subjective/Events-last exam Patient is laying down in bed, feeling better, still having some shortness of breath Review of Systems General: No Chills, No Night Sweats, No Fatigue, No Malaise, No Appetite, No Other HEENT: No Head Aches, No Visual Changes, No Eye Pain, No Ear Pain, No Dysphasia, No Sinus Congestion, No Post Nasal Drip, No Sore Throat, No Other Pulmonary: Dyspnea, Cough; No Pleuritic Chest Pain, No Other Cardiovascular: Edema; No: Chest Pain, Palpitations, Orthopnea, Paroxysmal Noc. Dyspnea, Lt Headedness, Other Focused Exam Lactate Level 05/31/19 13:40: Lactic Acid Level 2.22*H 05/31/19 16:00: Lactic Acid Level 1.74 06/01/19 07:25: Lactic Acid Level 0.77 Objective-Cardiology Exam Last Set of Vital Signs Vital Signs 06/03/19 06/03/19 06/03/19 04:53 06:59 07:00 Temp 36.8 Pulse 64 Resp 20 B/P (MAP) 116/66 (83) Pulse Ox 90 O2 Delivery Nasal Cannula O2 Flow Rate 3.00 Capillary Refill : Less Than 3 SecondsLess Than 3 Seconds I&O Intake and Output 06/03/19 00:00 Intake Total 2640 ml Output Total 1600 ml Balance 1040 ml Intake Oral 1520 ml IV Total 1120 ml Output Urine Total 1600 ml # Bowel Movements 4 General: Alert, Oriented X3, Cooperative HEENT: Atraumatic, PERRLA Neck: Supple, No JVD, No Thyromegaly Lungs: Normal Air Movement, Other (Bilateral rhonchi) Heart: Regular Rate, Normal S1, Normal S2, No Murmurs Abdomen: Normal Bowel Sounds, Soft, No Tenderness, No Hepatosplenomegaly, No Masses Extremities: No Clubbing, No Cyanosis, Normal Pulses, No Tenderness/Swelling, Other (Peripheral edema) Skin: No Rashes, No Breakdown, No Significant Lesion Neuro: Normal Gait, Normal Speech, Normal Tone, Sensation Intact Psych/Mental Status: Mental Status NL, Mood NL Results Lab Laboratory Tests Test 06/02/19 11:33 06/02/19 14:59 06/02/19 20:46 9/21/19 05:04 Range/Units Glucometer 128 H 125 H 96 72 70-110 MG/DL A/P-Cardiology Admission Diagnosis Pneumonia Paroxysmal atrial fibrillation Hypertension Hyperlipidemia Assessment/Plan Pneumonia- receiving antibiotics, panculture has been negative, managed by primary care team Paroxysmal atrial fibrillation, underwent LIZETH with cardioversion on April 24, 2019, went back to atrial fibrillation, currently on Multaq, digoxin, Cardizem, Toprol XL, Eliquis. Dig level elevated, digoxin was discontinued. Continue to monitor heart rate Chronic anticoagulation for history of DVT, maintained on Eliquis 5 mg twice daily. History of recent RLE cellulitis and nonhealing wound, had abnormal TIANNA, arterial ultrasound did not show significant obstructive disease. Acute respiratory failure, better at this time, bilateral pneumonia, exacerbatio n of COPD, improving COPD/obesity hypoventilation syndrome, has been managed by Dr. Patel. History of Anemia,has refused blood transfusion in the past, managed by Dr. Almazan History of Deep venous thrombosis, noted on February 19, 2019 after emergency room visit for chest pain and shortness of breath, continue on Eliquis History of CVA, left-sided paralysis, continue on aspirin with Eliquis. Continue to monitor History of renal failure, chronic kidney disease stage 3-4, seen Dr. Branham in the past.. Continue to monitor renal function Nonobstructive coronary artery disease per cardiac catheterization January 2012, continue to monitor Echocardiogram done on February 19, 2019 showing normal left ventricular size and systolic function, ejection fraction 55-65 percent, left atrial dilatation, PA pressure of 20 mmHg. Continue to monitor Hypertension, restart home blood pressure medications and continue to monitor. Hyperlipidemia, continue to monitor lipids Obesity Depression DM Clinical Quality Measures DVT/VTE Risk/Contraindication: Risk Factor Score Per Nursin RFS Level Per Nursing on Admit: 4+=Very High FARAZ ALCALA MD Jun 03, 2019 09:08
--- NOTE | 2019-06-03 10:40 | Progress Note - Hospitalist ---
Subjective HPI/CC On Admission Date Seen by Provider: Jun 03, 2019 Time Seen by Provider: 09:45 Chief complaint: Fever of 104 with presumed pneumonia History of present illness: This is a 68-year-old white female clinic patient of [facility] who resides at [facility] for the past 7 years who is had multiple hospital stays in the last several months most recently a couple weeks ago who presented to the ER with 104.4 fever influenza was negative but appears to have bilateral basilar pneumonia. She was also found to have decubitus ulcers that are new since the last time seen at the hospital per nursing staff 2 weeks ago. At this current time patient is stable but very fa tigued and hurts everywhere. Labs were reviewed along with imaging. Subjective/Events-last exam Patient doing better Relative at the bedside We'll discontinue telemetry Patient feels like she is getting a little better Denies any pain Bowels are moving Decubitus ulcers managed Review of Systems General: Fatigue Pulmonary: Cough Focused Exam Lactate Level 05/31/19 13:40: Lactic Acid Level 2.22*H 05/31/19 16:00: Lactic Acid Level 1.74 06/01/19 07:25: Lactic Acid Level 0.77 Objective Exam Vital Signs Vital Signs Date Time Temp Pulse Resp B/P (MAP) Pulse Ox O2 Delivery O2 Flow Rate FiO2 06/03/19 10:08 90 Nasal Cannula 3.00 06/03/19 08:00 36.8 69 20 122/67 (85) Capillary Refill : Less Than 3 SecondsLess Than 3 Seconds General Appearance: No Apparent Distress, WD/WN, Anxious, Chronically ill, Obese Respiratory: No Accessory Muscle Use, No Respiratory Distress, Decreased Breath Sounds Cardiovascular: Regular Rate, Rhythm Neurologic/Psychiatric: Alert, Oriented x3, No Motor/Sensory Deficits, Normal Mood/Affect, vertica architect II-XII Norm as Tested Results/Procedures Lab Patient resulted labs reviewed. Assessment/Plan Assessment and Plan Assess & Plan/Chief Complaint Assessment: Sepsis PNA Fever Decubitus ulcers Debility NH patient Plan: Abx Nebs O2 Monitor closely Prognosis very poor Diagnosis/Problems Diagnosis/Problems (1) Left lower lobe pneumonia Status: Acute Qualifiers: Pneumonia type: due to unspecified organism Qualified Codes: J18.1 - Lobar pneumonia, unspecified organism (2) Sepsis Status: Acute Qualifiers: Sepsis type: sepsis due to unspecified organism Sepsis acute organ dysfunction status: unspecified Qualified Codes: A41.9 - Sepsis, unspecified organism (3) Renal insufficiency Status: Chronic (4) Morbid obesity Status: Chronic (5) Leukocytosis Status: Acute Qualifiers: Leukocytosis type: leukemoid reaction Qualified Codes: D72.823 - Leukemoid reaction (6) IDDM (insulin dependent diabetes mellitus) Status: Chronic (7) Dehydration Status: Acute (8) Chronic kidney disease, stage 4 (severe) Status: Chronic Clinical Quality Measures DVT/VTE Risk/Contraindication: Risk Factor Score Per Nursin RFS Level Per Nursing on Admit: 4+=Very High ALEJANDRA RUSH DO Jun 03, 2019 10:40
[2019-06-03] MEDS: PANTOPRAZOLE 40 MG (PROTONIX) TAB PO SCH (13:00)
--- NOTE | 2019-06-03 14:08 | NUR ---
Report received from Virginia MCCALL. Patient laying in bed at this time, call light within reach. Will assume care of patient at this time.
--- NOTE | 2019-06-03 14:09 | NUR ---
REPORT GIVEN TO STEFANY JUSTICE
[2019-06-03 14:18] VITALS: BP 122/67
[2019-06-03 16:00] VITALS: BP 116/67
[2019-06-03] MEDS: MELATONIN 3 MG TABLET PO SCH (21:36)
[2019-06-03] MEDS: VITAMIN D3 5,000 UNITS (CHOLECALCIFEROL ) CAPSULE PO SCH (21:37)
[2019-06-04 00:28] VITALS: BP 115/64
[2019-06-04 04:53] LABS: BASOPHILS % (AUTO) 0 % (0-10); EOSINOPHILS # (AUTO) 0.2 10^3/uL (0.0-0.3); EOSINOPHILS % (AUTO) 3 % (0-10); HEMATOCRIT 33 % (35-52); HEMOGLOBIN 9.8 G/DL (11.5-16.0); LYMPHOCYTES # (AUTO) 0.9 X 10^3 (1.0-4.0); LYMPHOCYTES % (AUTO) 16 % (12-44); MEAN CORPUSCULAR HGB CONC 30 G/DL (32-36); MEAN CORPUSCULAR VOLUME 89 FL (80-99); MEAN PLATELET VOLUME 9.6 FL (7.4-10.4); MONOCYTES # (AUTO) 0.5 X 10^3 (0.0-1.0); MONOCYTES % (AUTO) 10 % (0-12); NEUTROPHILS # (AUTO) 3.9 X 10^3 (1.8-7.8); NEUTROPHILS % (AUTO) 71 % (42-75); PLATELET COUNT 230 10^3/uL (130-400); RED CELL DISTRIBUTION WIDTH 17.9 % (10.0-14.5); WHITE BLOOD COUNT 5.5 10^3/uL (4.3-11.0)
[2019-06-04 05:01] LABS: MEAN CORPUSCULAR HEMOGLOBIN 26 PG (25-34)
[2019-06-04 05:22] LABS: ALBUMIN 2.5 GM/DL (3.2-4.5); BILIRUBIN,TOTAL 0.2 MG/DL (0.1-1.0); CALCIUM 7.9 MG/DL (8.5-10.1); CREATININE SERUM 1.5 MG/DL (0.60-1.30); POTASSIUM 3.5 MMOL/L (3.6-5.0); TOTAL PROTEIN 5.6 GM/DL (6.4-8.2)
[2019-06-04] MEDS: inSUlin ASPART (NovoLOG) 1 UNIT/0.01 ML (CHARGE PER UNIT) SC SCH ×4 (05:26→20:19)
[2019-06-04] MEDS: PIPERACILLIN/TAZO 4.5 GM/NS 100 ML IV SCH ×6 (06:25→23:16)
[2019-06-04] MEDS: KCL 20 MEQ TAB (K-DUR) PO SCH (06:25)
[2019-06-04] MEDS: RT-ALBUTEROL/IPRATROPIUM 3 ML (DUONEB) VIAL INH SCH ×4 (06:39→19:22)
[2019-06-04] MEDS: RT-ADVAIR HFA 115/21 MCG PER PUFF IH SCH ×2 (06:41→19:23)
--- NOTE | 2019-06-04 07:30 | Pulmonary Progress Note ---
Sepsis Event Evaluation Height, Weight, BMI Height: 5'6.00" Weight: 118lbs. 0.5oz. 53.936999lh; 47.83 BMI Method:Estimated Exam Exam Vital Signs Date Time Temp Pulse Resp B/P (MAP) Pulse Ox O2 Delivery O2 Flow Rate FiO2 06/04/19 06:39 93 Nasal Cannula 3.00 06/04/19 00:28 36.5 58 18 115/64 (81) 96 Nasal Cannula 3.00 06/03/19 20:00 Nasal Cannula 3.00 06/03/19 18:52 Nasal Cannula 06/03/19 16:00 36.4 60 20 116/67 (83) 94 Nasal Cannula 3.00 06/03/19 14:18 36.8 69 90 06/03/19 14:15 90 Nasal Cannula 3.00 06/03/19 10:08 90 Nasal Cannula 3.00 06/03/19 08:00 36.8 69 20 122/67 (85) 93 Nasal Cannula 3.00 06/03/19 08:00 Nasal Cannula 3.00 I & O 06/04/19 07:00 Intake Total 2080 ml Output Total 1825 ml Balance 255 ml Height & Weight Height: 5'6.00" Weight: 118lbs. 0.5oz. 53.091858vd; 47.83 BMI Method:Estimated General Appearance: No Apparent Distress, WD/WN, Anxious, Chronically ill, Obese HEENT: Moist Mucous Membranes Respiratory: Chest Non Tender, No Accessory Muscle Use, No Respiratory Distress, Crackles, Wheezing Cardiovascular: Regular Rate, Rhythm, No Gallop, No JVD, No Murmur, Normal Peripheral Pulses Capillary Refill: Less Than 3 Seconds Peripheral Pulses: 2+ Radial Pulses (R), 2+ Radial Pulses (L) Extremity: Normal Capillary Refill, Normal Inspection, Normal Range of Motion, Calf Tenderness, Pedal Edema Neurologic/Psychiatric: Alert, Oriented x3, No Motor/Sensory Deficits, Normal Mood/Affect, plan rep II-XII Norm as Tested, Depressed Affect Skin: Normal Color, Warm/Dry Lymphatic: No Adenopathy Results Lab Laboratory Tests 06/04/19 04:15 Assessment/Plan Assessment/Plan LLL Pneumonia with sepsis -Zosyn started 05/31 -Hawkins cultures pending Pulmonary edema - lasix -Hep lock IVF Metabolic lactic acidosis --> resolved -IVF normocytic Anemia -Monitor -Check occult stool --> was positive B/l lower extremity tenderness - possible cellulitis Digoxin toxicity - hold digoxin Dehydration -IVF Renal failure CHF Morbid obesity Depression Malaise consider ANKIT or obesity induce hypoventilation - Follow up as outpatient IDDM AMNA WRIGHT DO Jun 04, 2019 07:30
[2019-06-04 08:00] VITALS: BP 120/67
[2019-06-04] MEDS: GABAPENTIN 300 MG (NEURONTIN) CAP PO SCH ×2 (08:57→20:42)
[2019-06-04] MEDS: ASPIRIN E.C. 81 MG (ECOTRIN) TAB PO SCH ×2 (08:57→20:43)
[2019-06-04] MEDS: APIXABAN 5 MG (ELIQUIS) TABLET PO SCH ×2 (08:58→20:42)
[2019-06-04] MEDS: FUROSEMIDE 40 MG/4 ML INJ (LASIX) IVP SCH (08:58)
[2019-06-04] MEDS: FERROUS SULF 325 MG (IRON) TAB PO SCH (08:58)
[2019-06-04] MEDS: meTOprolol SUCCINATE 100 MG (TOPROL XL) TAB PO SCH (08:58)
[2019-06-04] MEDS: DILTIAZEM 180 MG (CARDIZEM CD) CAP PO SCH (08:58)
[2019-06-04] MEDS: SUCRALFATE 1 GM (CARAFATE) TAB PO SCH ×4 (08:58→20:43)
[2019-06-04] MEDS: DOCUSATE SODIUM 100 MG (COLACE) CAP PO SCH ×2 (08:58→20:43)
[2019-06-04] MEDS: BETHANECHOL 10 MG (URECHOLINE) TAB PO SCH ×2 (08:58→21:23)
[2019-06-04] MEDS: amLODIPine 5 MG (NORVASC) TAB PO SCH (08:58)
[2019-06-04] MEDS: FLUTICASONE NASAL SPRAY (FLONASE) 16 GM BTL NS SCH (08:58)
--- NOTE | 2019-06-04 10:25 | Cardiology Progress Note ---
Subjective Date Seen by Provider: Jun 04, 2019 Time Seen by Provider: 10:24 Subjective/Events-last exam Patient is laying down in bed. Denied any chest pain. Feeling better Review of Systems General: No Chills, No Night Sweats, No Fatigue, No Malaise, No Appetite, No Other HEENT: No Head Aches, No Visual Changes, No Eye Pain, No Ear Pain, No Dysphasia, No Sinus Congestion, No Post Nasal Drip, No Sore Throat, No Other Pulmonary: Dyspnea; No Cough, No Pleuritic Chest Pain, No Other Cardiovascular: Edema; No: Chest Pain, Palpitations, Orthopnea, Paroxysmal Noc. Dyspnea, Lt Headedness, Other Objective-Cardiology Exam Last Set of Vital Signs Vital Signs 06/04/19 08:00 Temp 36.5 Pulse 59 Resp 18 B/P (MAP) 120/67 (84) Pulse Ox 94 O2 Delivery Nasal Cannula O2 Flow Rate 3.00 Capillary Refill : Less Than 3 SecondsLess Than 3 Seconds I&O Intake and Output 06/04/19 00:00 Intake Total 1740 ml Output Total 1825 ml Balance -85 ml Intake Oral 1380 ml IV Total 360 ml Output Urine Total 1825 ml General: Alert, Oriented X3, Cooperative HEENT: Atraumatic, PERRLA Neck: Supple, No JVD, No Thyromegaly Lungs: Normal Air Movement, Other (Bilateral rhonchi) Heart: Regular Rate, Normal S1, Normal S2, No Murmurs Abdomen: Normal Bowel Sounds, Soft, No Tenderness, No Hepatosplenomegaly, No Masses Extremities: No Clubbing, No Cyanosis, Normal Pulses, No Tenderness/Swelling, Other (Peripheral edema) Skin: No Rashes, No Breakdown, No Significant Lesion Neuro: Normal Gait, Normal Speech, Normal Tone, Sensation Intact Psych/Mental Status: Mental Status NL, Mood NL Results Lab Laboratory Tests 06/04/19 04:15 A/P-Cardiology Admission Diagnosis Pneumonia Paroxysmal atrial fibrillation Hypertension Hyperlipidemia Assessment/Plan Pneumonia- receiving antibiotics, panculture has been negative, managed by primary care team Paroxysmal atrial fibrillation, underwent LIZETH with cardioversion on April 24, 2019, went back to atrial fibrillation, currently on Multaq, digoxin, Cardizem, Toprol XL, Eliquis. Dig level elevated, digoxin was discontinued. Continue to monitor heart rate Chronic anticoagulation for history of DVT, maintained on Eliquis 5 mg twice daily. History of recent RLE cellulitis and nonhealing wound, had abnormal TIANNA, a rterial ultrasound did not show significant obstructive disease. Acute respiratory failure, better at this time, bilateral pneumonia, exacerbation of COPD, improving COPD/obesity hypoventilation syndrome, has been managed by Dr. Patel. History of Anemia, has refused blood transfusion in the past, managed by Dr. Almazan History of Deep venous thrombosis, noted on February 19, 2019 after emergency room visit for chest pain and shortness of breath, continue on Eliquis History of CVA, left-sided paralysis, continue on aspirin with Eliquis. Continue to monitor History of renal failure, chronic kidney disease stage 3-4, seen Dr. Branham in the past.. Continue to monitor renal function Nonobstructive coronary artery disease per cardiac catheterization January 2012, continue to monitor Echocardiogram done on February 19, 2019 showing normal left ventricular size and systolic function, ejection fraction 55-65 percent, left atrial dilatation, PA pressure of 20 mmHg. Continue to monitor Hypertension, restart home blood pressure medications and continue to monitor. Hyperlipidemia, continue to monitor lipids Obesity Depression DM Clinical Quality Measures DVT/VTE Risk/Contraindication: Risk Factor Score Per Nursin RFS Level Per Nursing on Admit: 4+=Very High FARAZ ALCALA MD Jun 04, 2019 10:25
--- NOTE | 2019-06-04 11:03 | Progress Note - Hospitalist ---
Subjective HPI/CC On Admission Date Seen by Provider: Jun 04, 2019 Time Seen by Provider: 10:00 Chief complaint: Fever of 104 with presumed pneumonia History of present illness: This is a 68-year-old white female clinic patient of [facility] who resides at [facility] for the past 7 years who is had multiple hospital stays in the last several months most recently a couple weeks ago who presented to the ER with 104.4 fever influenza was negative but appears to have bilateral basilar pneumonia. She was also found to have decubitus ulcers that are new since the last time seen at the hospital per nursing staff 2 weeks ago. At this current time patient is stable but very fatigued and hurts everywhere. Labs were reviewed along with imaging. Subjective/Events-last exam Patient doing better Appears better and feels better Creatinine 1.5 Hemoglobin stable at 9.8 Does not use oxygen at the [facility] in [facility] so spoke to RT and they will do the O2 study in preparation for discharge tomorrow Wants to go back to the [facility] Very severe debility noted and her prognosis remains very poor since she is nearly bedridden now Aguiar catheter is still in place Physical therapy and Occupational Therapy will be ordered tomorrow in preparation of discharge back to the [facility] Review of Systems General: Fatigue Pulmonary: Dyspnea Objective Exam Vital Signs Vital Signs Date Time Temp Pulse Resp B/P (MAP) Pulse Ox O2 Delivery O2 Flow Rate FiO2 06/04/19 16:00 36.2 61 20 106/67 (80) 95 Nasal Cannula 3.00 Capillary Refill : Less Than 3 SecondsLess Than 3 Seconds General Appearance: No Apparent Distress, WD/WN, Chronically ill, Obese Respiratory: Chest Non Tender, Lungs Clear, Normal Breath Sounds, No Accessory Muscle Use, No Respiratory Distress, Decreased Breath Sounds Cardiovascular: Regular Rate, Rhythm, No Edema, No Gallop, No JVD, No Murmur, Normal Peripheral Pulses Neurologic/Psychiatric: Alert, Oriented x3, No Motor/Sensory Deficits, Normal Mood/Affect, balance weigher II-XII Norm as Tested, Motor Weakness (lower legs) Results/Procedures Lab Laboratory Tests 06/04/19 04:15 Patient resulted labs reviewed. Assessment/Plan Assessment and Plan Assess & Plan/Chief Complaint Assessment: Sepsis PNA Fever Decubitus ulcers Debility NH patient CRI Plan: Abx Nebs O2 for home study since [facility] tomorrow Monitor closely Prognosis very poor PT/OT Diagnosis/Problems Diagnosis/Problems (1) Left lower lobe pneumonia Status: Acute Qualifiers: Pneumonia type: due to unspecified organism Qualified Codes: J18.1 - Lobar pneumonia, unspecified organism (2) Sepsis Status: Acute Qualifiers: Sepsis type: sepsis due to unspecified organism Sepsis acute organ dysfunction status: unspecified Qualified Codes: A41.9 - Sepsis, unspecified organism (3) Renal insufficiency Status: Chronic (4) Morbid obesity Status: Chronic (5) Leukocytosis Status: Acute Qualifiers: Leukocytosis type: leukemoid reaction Qualified Codes: D72.823 - Leukemoid reaction (6) IDDM (insulin dependent diabetes mellitus) Status: Chronic (7) Dehydration Status: Acute (8) Chronic kidney disease, stage 4 (severe) Status: Chronic Clinical Quality Measures DVT/VTE Risk/Contraindication: Risk Factor Score Per Nursin RFS Level Per Nursing on Admit: 4+=Very High ALEJANDRA RUSH DO Jun 04, 2019 11:03
[2019-06-04] MEDS: PANTOPRAZOLE 40 MG (PROTONIX) TAB PO SCH (13:57)
--- NOTE | 2019-06-04 13:57 | NUR ---
SPO2 DROPPED TO 85% ON ROOM AIR @ REST. REPLACED O2 @ 3 LPM. SPO2 INCREASED TO 90%. Addendum: 06/04/19 at 1406 by CHERYL PICKARD RT Amended: Links added.
[2019-06-04 16:00] VITALS: BP 106/67
[2019-06-04] MEDS: VITAMIN D3 5,000 UNITS (CHOLECALCIFEROL ) CAPSULE PO SCH (20:42)
[2019-06-04] MEDS: MELATONIN 3 MG TABLET PO SCH (21:23)
[2019-06-04 23:58] VITALS: BP 131/61
[2019-06-05] MEDS: inSUlin ASPART (NovoLOG) 1 UNIT/0.01 ML (CHARGE PER UNIT) SC SCH ×2 (06:21→11:03)
[2019-06-05] MEDS: KCL 20 MEQ TAB (K-DUR) PO SCH (06:22)
[2019-06-05] MEDS: PIPERACILLIN/TAZO 4.5 GM/NS 100 ML IV SCH ×2 (06:22)
[2019-06-05 06:28] LABS: BASOPHILS # (AUTO) 0.1 10^3/uL (0.0-0.1); BASOPHILS % (AUTO) 1 % (0-10); EOSINOPHILS # (AUTO) 0.2 10^3/uL (0.0-0.3); EOSINOPHILS % (AUTO) 4 % (0-10); HEMATOCRIT 32 % (35-52); HEMOGLOBIN 9.4 G/DL (11.5-16.0); LYMPHOCYTES # (AUTO) 1.1 X 10^3 (1.0-4.0); LYMPHOCYTES % (AUTO) 18 % (12-44); MEAN CORPUSCULAR HEMOGLOBIN 26 PG (25-34); MEAN CORPUSCULAR HGB CONC 30 G/DL (32-36); MEAN CORPUSCULAR VOLUME 89 FL (80-99); MEAN PLATELET VOLUME 9.9 FL (7.4-10.4); MONOCYTES # (AUTO) 0.5 X 10^3 (0.0-1.0); MONOCYTES % (AUTO) 8 % (0-12); NEUTROPHILS % (AUTO) 69 % (42-75); PLATELET COUNT 222 10^3/uL (130-400); RED CELL DISTRIBUTION WIDTH 17.6 % (10.0-14.5); WHITE BLOOD COUNT 5.9 10^3/uL (4.3-11.0)
[2019-06-05 06:56] LABS: ALBUMIN 2.4 GM/DL (3.2-4.5); BILIRUBIN,TOTAL 0.2 MG/DL (0.1-1.0); CALCIUM 7.9 MG/DL (8.5-10.1); CREATININE SERUM 1.27 MG/DL (0.60-1.30); POTASSIUM 3.5 MMOL/L (3.6-5.0); TOTAL PROTEIN 5.4 GM/DL (6.4-8.2)
[2019-06-05] MEDS: RT-ALBUTEROL/IPRATROPIUM 3 ML (DUONEB) VIAL INH SCH (07:14)
[2019-06-05] MEDS: RT-ADVAIR HFA 115/21 MCG PER PUFF IH SCH (07:15)
--- NOTE | 2019-06-05 07:23 | Pulmonary Progress Note ---
Subjective Date Seen by a Provider: Jun 05, 2019 Time Seen by a Provider: 07:22 Subjective/Events-last exam Patient says that she is feeling better and feels like she can go home. Patient is comfortable at 3L and qualified for home oxygen. ROS admits: cough denies: fever, chills, nausea, vomiting, abdominal pain, chest pain, SOB, headache Sepsis Event Evaluation Height, Weight, BMI Height: 5'6.00" Weight: 118lbs. 0.5oz. 53.860658ce; 47.83 BMI Method:Estimated Exam Exam Vital Signs Date Time Temp Pulse Resp B/P (MAP) Pulse Ox O2 Delivery O2 Flow Rate FiO2 06/04/19 23:58 36.8 62 18 131/61 (84) 95 Nasal Cannula 3.00 06/04/19 20:00 Nasal Cannula 3.00 06/04/19 19:32 Nasal Cannula 3.00 06/04/19 19:23 94 Nasal Cannula 3.00 06/04/19 16:00 36.2 61 20 106/67 (80) 95 Nasal Cannula 3.00 06/04/19 14:01 90 Nasal Cannula 3.00 06/04/19 13:57 90 3.00 06/04/19 08:00 36.5 59 18 120/67 (84) 94 Nasal Cannula 3.00 06/04/19 07:59 Nasal Cannula 3.00 I & O 06/05/19 07:00 Intake Total 1960 ml Output Total 1850 ml Balance 110 ml Height & Weight Height: 5'6.00" Weight: 118lbs. 0.5oz. 53.631608md; 47.83 BMI Method:Estimated General Appearance: No Apparent Distress, WD/WN, Chronically ill, Obese HEENT: Moist Mucous Membranes Respiratory: Chest Non Tender, Lungs Clear, No Accessory Muscle Use, No Respiratory Distress, Decreased Breath Sounds Cardiovascular: Regular Rate, Rhythm, No Edema, No Gallop, No JVD, No Murmur, N ormal Peripheral Pulses Capillary Refill: Less Than 3 Seconds Peripheral Pulses: 2+ Radial Pulses (R), 2+ Radial Pulses (L) Extremity: Normal Capillary Refill, Normal Inspection, Normal Range of Motion, Calf Tenderness, Pedal Edema Neurologic/Psychiatric: Alert, Oriented x3, No Motor/Sensory Deficits, Normal Mood/Affect, Motor Weakness (lower legs) Skin: Normal Color, Warm/Dry Lymphatic: No Adenopathy Results Lab Laboratory Tests 06/04/19 04:15 06/05/19 05:53 Assessment/Plan Assessment/Plan LLL Pneumonia with sepsis -Zosyn started 05/31 -Hawkins cultures pending Pulmonary edema - lasix -Hep lock IVF Metabolic lactic acidosis --> resolved -IVF normocytic Anemia -Monitor -Check occult stool --> was positive B/l lower extremity tenderness - possible cellulitis Digoxin toxicity - hold digoxin Dehydration -IVF Renal failure CHF Morbid obesity Depression Malaise consider ANKIT or obesity induce hypoventilation - Follow up as outpatient IDDM ZOIE BLAS,MED STUDENT Jun 05, 2019 07:23
[2019-06-05 08:00] VITALS: BP 121/68
--- NOTE | 2019-06-05 08:43 | Cardiology Progress Note ---
Subjective Date Seen by Provider: Jun 05, 2019 Time Seen by Provider: 08:41 Subjective/Events-last exam Patient is sitting up in bed, denies any chest pain. Complaining of some dyspnea this morning. Objective-Cardiology Exam Last Set of Vital Signs Vital Signs 06/04/19 06/05/19 23:58 07:14 Temp 36.8 Pulse 62 Resp 18 B/P (MAP) 131/61 (84) Pulse Ox 92 O2 Delivery Nasal Cannula O2 Flow Rate 3.00 Capillary Refill : Less Than 3 SecondsLess Than 3 Seconds I&O Intake and Output 06/05/19 00:00 Intake Total 2270 ml Output Total 1800 ml Balance 470 ml Intake Oral 2270 ml Output Urine Total 1800 ml # Bowel Movements 2 General: Alert, Oriented X3, Cooperative HEENT: Atraumatic, PERRLA Neck: Supple, No JVD, No Thyromegaly Lungs: Normal Air Movement, Other (Bilateral rhonchi) Heart: Regular Rate, Normal S1, Normal S2, No Murmurs Abdomen: Normal Bowel Sounds, Soft, No Tenderness, No Hepatosplenomegaly, No Masses Extremities: No Clubbing, No Cyanosis, Normal Pulses, No Tenderness/Swelling, Other (Peripheral edema) Skin: No Rashes, No Breakdown, No Significant Lesion Neuro: Normal Gait, Normal Speech, Normal Tone, Sensation Intact Psych/Mental Status: Mental Status NL, Mood NL Results Lab Laboratory Tests 06/05/19 05:53 A/P-Cardiology Admission Diagnosis Pneumonia Paroxysmal atrial fibrillation Hypertension Hyperlipidemia Assessment/Plan Pneumonia- receiving antibiotics, panculture has been negative, managed by primary care team Paroxysmal atrial fibrillation, underwent LIZETH with cardioversion on April 24, 2019,currently on Cardizem, Toprol XL, Eliquis. Dig level elevated, digoxin was discontinued. Consider restarting Multaq. Chronic anticoagulation for history of DVT, maintained on Eliquis 5 mg twice daily. History of recent RLE cellulitis and nonhealing wound, had abnormal TIANNA, arterial ultrasound did not show significant obstructive disease. Acute respiratory failure, better at this time, bilateral pneumonia, exacerbation of COPD, improving COPD/obesity hypoventilation syndrome, has been managed by Dr. Patel. History of Anemia, has refused blood transfusion in the past, managed by Dr. Almazan History of Deep venous thrombosis, noted on February 19, 2019 after emergency room visit for chest pain and shortness of breath, continue on Eliquis History of CVA, left-sided paralysis, continue on aspirin with Eliquis. Continue to monitor History of renal failure, chronic kidney disease stage 3-4, seen Dr. Branham in the past.. Continue to monitor renal function Nonobstructive coronary artery disease per cardiac catheterization January 2012, continue to monitor Echocardiogram done on February 19, 2019 showing normal left ventricular size and systolic function, ejection fraction 55-65 percent, left atrial dilatation, PA pressure of 20 mmHg. Continue to monitor Hypertension, controlled, continue to monitor Hyperlipidemia, continue to monitor lipids Obesity Depression DM Clinical Quality Measures DVT/VTE Risk/Contraindication: Risk Factor Score Per Nursin RFS Level Per Nursing on Admit: 4+=Very High SWATHI WRIGHT Jun 05, 2019 08:43
[2019-06-05] MEDS: FLUTICASONE NASAL SPRAY (FLONASE) 16 GM BTL NS SCH (09:16)
[2019-06-05] MEDS: DOCUSATE SODIUM 100 MG (COLACE) CAP PO SCH (09:17)
[2019-06-05] MEDS: ASPIRIN E.C. 81 MG (ECOTRIN) TAB PO SCH (09:17)
[2019-06-05] MEDS: DILTIAZEM 180 MG (CARDIZEM CD) CAP PO SCH (09:17)
[2019-06-05] MEDS: FUROSEMIDE 40 MG/4 ML INJ (LASIX) IVP SCH (09:17)
[2019-06-05] MEDS: FERROUS SULF 325 MG (IRON) TAB PO SCH (09:17)
[2019-06-05] MEDS: amLODIPine 5 MG (NORVASC) TAB PO SCH (09:17)
[2019-06-05] MEDS: APIXABAN 5 MG (ELIQUIS) TABLET PO SCH (09:17)
[2019-06-05] MEDS: meTOprolol SUCCINATE 100 MG (TOPROL XL) TAB PO SCH (09:17)
[2019-06-05] MEDS: GABAPENTIN 300 MG (NEURONTIN) CAP PO SCH (09:17)
[2019-06-05] MEDS: SUCRALFATE 1 GM (CARAFATE) TAB PO SCH (09:17)
[2019-06-05] MEDS: BETHANECHOL 10 MG (URECHOLINE) TAB PO SCH (09:25)
--- NOTE | 2019-06-05 09:26 | Physical Therapy Evaluation ---
PT Evaluation-General Medical Diagnosis Admission Date Jun 04, 2019 at 23:32 Medical Diagnosis: pneumonia Onset Date: Jun 04, 2019 Therapy Diagnosis Therapy Diagnosis: debility/weakness Height/Weight Height (Feet): 5 Height (Inches): 6.00 Weight (Pounds): 118 Weight (Ounces): 0.5 Precautions Precautions/Isolations: Fall Prevention, Standard Precautions, Pressure Ulcer Referral Physician: Chelsea Reason for Referral: Evaluation/Treatment Medical History Pertinent Medical History: Atrial Fib, CAD, COPD, CVA, Renal Insufficiency Current History EMS secondary to AMS and decreased SAO2 Reviewed History: Yes Social History Home: Senior Living Prior/Core FIM Prior Level of Function Therapy Code Descriptions/Definitions Functional Arthur Measure: 0=Not Assessed/NA 4=Minimal Assistance 1=Total Assistance 5=Supervision or Setup 2=Maximal Assistance 6=Modified Arthur 3=Moderate Assistance 7=Complete Arthur Therapy Quality Codes: 6 Independent with activity with or without an assistive device 5 Patient requires set up or clean up by helper. Patient completes activity by themselves 4 Supervision or touching assist (CGA). [place] provide cues , steadying assist 3 The helper provides less than half the effort to complete the activity 2 The helper provides more than half the effort to complete the activity 1 Dependent. The helper does all the effort to complete an activity 7 Patient refused to complete or attempt activity 9 The patient did not perform the activity before the current illness or injury 88 Not attempted due to Medical conditions or safety concerns Functional Abilities and Goals: Independent: Patient completed the activities by him/herself, with or without an assistive device, with no assistance from a helper. Needed Some Help: Patient needed partial assistance from another person to complete activities. Dependent: A helper completed the activities for the patient. Unknown: Not Applicable: Bed Mobility: 1 Transfers (B,C,W/C) (FIM): 1 Indoor Mobility (Ambulation): Not [place]be Stairs: Not Applicalbe Prior Devices Use: Manual wheelchair patient reports they have had to utilize Griselda lift vs sit to stand due to patient reports she does not tolerate sit to stand lift use. PT Evaluation-Current Subjective Patient reluctantly agrees to PT. She states, "I just want to go back to the long-term." Pain Numeric Pain Scale: 0-No Pain Location: No Pain Reported Objective Patient Orientation: Person, Time, Situation Problem Solving: Poor Attachments: Oxygen, Aguiar Catheter ROM/Strength ROM Lower Extremities bilateral LE WFL Strength Lower Extremities 2/5 right LE grossly/1/5 left Le grossly Integumentary/Posture Integumentary refer to nursing notes Bladder Incontinence: Aguiar Cath Posture flexed cervical in seated position EOB due to core weakness Neuromuscular (Tone, Coordination, Reflexes) diminished coordination total body due to weakness and old CVA Sensory Vision: Functional Hearing: Functional Sensation Right Lower Extremit: Impaired Sensation Left Lower Extremity: Impaired Transfers Therapy Code Descriptions/Definitions Functional Arthur Measure: 0=Not Assessed/NA 4=Minimal Assistance 1=Total Assistance 5=Supervision or Setup 2=Maximal Assistance 6=Modified Arthur 3=Moderate Assistance 7=Complete Arthur Transfers (B, C, W/C) (FIM): 1 Scootin Rollin Supine to/from Sit: 1 dependent assist x 2 with all bed mobility. Patient sat EOB x 10 min CGA Balance Sitting Static: Fair Sitting Dynamic: Poor Assessment/Needs 68 y.o. female, will benefit from skilled PT to address functional strength and mobility to improve current LOF. Patient has had multiple hospital admits and has become progressively weaker and unable to perform or assist with performing bed mobility/transfers Rehab Potential: Poor PT Care Home Goals Care Home Goals PT [employer] Goals Time Frame: Jun 17, 2019 Transfers (B,C,W/C) (FIM): 2 PT Plan Problem List Problem List: Activity Tolerance, Functional Strength, Safety, Balance, Transfer, Bed Mobility, ROM Treatment/Plan Treatment Plan: Continue Plan of Care Treatment Plan: Bed Mobility, Education, Functional Activity Vick, Functional Strength, Safety, Therapeutic Exercise, Transfers Treatment Duration: Jun 17, 2019 Frequency: 6 times per week Estimated Hrs Per Day: .25 hour per day Patient and/or Family Agrees t: Yes Time/GCodes Time In: 815 Time Out: 833 Total Billed Treatment Time: 18 Total Billed Treatment 1 visit EVModC 18 min MICHAEL ADAN PT Jun 05, 2019 09:26
--- NOTE | 2019-06-05 09:32 | Cardiology Progress Note ---
Subjective Date Seen by Provider: Jun 05, 2019 Time Seen by Provider: 09:31 Subjective/Events-last exam Patient is laying down in bed. Denied any chest pain, feeling better Review of Systems General: No Chills, No Night Sweats, No Fatigue, No Malaise, No Appetite, No Other HEENT: No Head Aches, No Visual Changes, No Eye Pain, No Ear Pain, No Dysphasia, No Sinus Congestion, No Post Nasal Drip, No Sore Throat, No Other Pulmonary: Dyspnea; No Cough, No Pleuritic Chest Pain, No Other Cardiovascular: No: Chest Pain, Palpitations, Orthopnea, Paroxysmal Noc. Dyspnea, Edema, Lt Headedness, Other Objective-Cardiology Exam Last Set of Vital Signs Vital Signs 06/05/19 08:00 Temp 36.1 Pulse 65 Resp 18 B/P (MAP) 121/68 (85) Pulse Ox 96 O2 Delivery Nasal Cannula O2 Flow Rate 3.00 Capillary Refill : Less Than 3 SecondsLess Than 3 Seconds I&O Intake and Output 06/05/19 00:00 Intake Total 2270 ml Output Total 1800 ml Balance 470 ml Intake Oral 2270 ml Output Urine Total 1800 ml # Bowel Movements 2 General: Alert, Oriented X3, Cooperative HEENT: Atraumatic, PERRLA Neck: Supple, No JVD, No Thyromegaly Lungs: Normal Air Movement, Other (Bilateral rhonchi) Heart: Regular Rate, Normal S1, Normal S2, No Murmurs Abdomen: Normal Bowel Sounds, Soft, No Tenderness, No Hepatosplenomegaly, No Masses Extremities: No Clubbing, No Cyanosis, Normal Pulses, No Tenderness/Swelling, Other (Peripheral edema) Skin: No Rashes, No Breakdown, No Significant Lesion Neuro: Normal Gait, Normal Speech, Normal Tone, Sensation Intact Psych/Mental Status: Mental Status NL, Mood NL Results Lab Laboratory Tests 06/05/19 05:53 A/P-Cardiology Admission Diagnosis Pneumonia Paroxysmal atrial fibrillation Hypertension Hyperlipidemia Assessment/Plan Pneumonia, improving- receiving antibiotics, panculture has been negative, managed by primary care team Paroxysmal atrial fibrillation, underwent LIZETH with cardioversion on April 24, 2019,currently on Cardizem, Toprol XL, Eliquis. Dig level elevated, digoxin was discontinued. I will restart Multaq Chronic anticoagulation for history of DVT, maintained on Eliquis 5 mg twice daily. History of recent RLE cellulitis and nonhealing wound, had abnormal TIANNA, arterial ultrasound did not show significant obstructive disease. Acute respiratory failure, better at this time, bilateral pneumonia, exacerbati on of COPD, improving COPD/obesity hypoventilation syndrome, has been managed by Dr. Patel. History of Anemia, has refused blood transfusion in the past, managed by Dr. Almazan History of Deep venous thrombosis, noted on February 19, 2019 after emergency room visit for chest pain and shortness of breath, continue on Eliquis History of CVA, left-sided paralysis, continue on aspirin with Eliquis. Continue to monitor History of renal failure, chronic kidney disease stage 3-4, seen Dr. Branham in the past.. Continue to monitor renal function Nonobstructive coronary artery disease per cardiac catheterization January 2012, continue to monitor Echocardiogram done on February 19, 2019 showing normal left ventricular size and systolic function, ejection fraction 55-65 percent, left atrial dilatation, PA pressure of 20 mmHg. Continue to monitor Hypertension, controlled, continue to monitor Hyperlipidemia, continue to monitor lipids Obesity Depression DM Clinical Quality Measures DVT/VTE Risk/Contraindication: Risk Factor Score Per Nursin RFS Level Per Nursing on Admit: 4+=Very High FARAZ ALCALA MD Jun 05, 2019 09:32
--- NOTE | 2019-06-05 09:42 | NUR ---
prior to a.m. medications pulse was 65 and b/p was 121/68.
[2019-06-05] MEDS ORDERED: CEFD300C3 PO (09:46)
--- NOTE | 2019-06-05 09:50 | Discharge Summary ---
Discharge Summary Reconcile Patient Problems Problems Reviewed?: Yes Hospital Course Hospital Course Date of Admission: Jun 04, 2019 at 23:32 Admission Diagnosis : Family Physician/Provider: Roberto Ramírez MD Date of Discharge: 06/05/19 Discharge Diagnosis: Pneumonia, Decubitus ulcers, debility, AF, ARF Hospital Course: Hospital course: Patient had an uneventful hospital course although it was lengthy due to pneumonia hypoxia and new onset decubitus ulcers. Patient has had a long journey of debility while remaining at the senior living for the past 7 years resulting in severe debility and overall unable to modify most risk in order to improve her status. Cardiology and pulmonology were consulted IV fluid given for acute renal failure digoxin level that was toxic came down conservatively managed and overall patient remained stable but overall prognosis very poor. Cefdinir will be completed for an additional 2 days for pneumonia treatment. Aguiar catheter will be discontinued and her chronic tachypnea will be monitored only and patient will be on 3 L of oxygen continuously now indicating more and more of and organ failure. Labs and Pending Lab Test: Laboratory Tests 06/04/19 10:30: Glucometer 179H 06/04/19 15:12: Glucometer 152H 06/04/19 20:13: Glucometer 159H 06/05/19 05:29: Glucometer 96 06/05/19 05:53: White Blood Count 5.9, Red Blood Count 3.57L, Hemoglobin 9.4L, Hematocrit 32L, Mean Corpuscular Volume 89, Mean Corpuscular Hemoglobin 26, Mean Corpuscular Hemoglobin Concent 30L, Red Cell Distribution Width 17.6H, Platelet Count 222, Mean Platelet Volume 9.9, Neutrophils (%) (Auto) 69, Lymphocytes (%) (Auto) 18, Monocytes (%) (Auto) 8, Eosinophils (%) (Auto) 4, Basophils (%) (Auto) 1, Neutrophils # (Auto) 4.0, Lymphocytes # (Auto) 1.1, Monocytes # (Auto) 0.5, Eosinophils # (Auto) 0.2, Basophils # (Auto) 0.1, Sodium Level 144, Potassium Level 3.5L, Chloride Level 111H, Carbon Dioxide Level 24, Anion Gap 9, Blood Ur ea Nitrogen 11, Creatinine 1.27, Estimat Glomerular Filtration Rate 42, BUN/Creatinine Ratio 9, Glucose Level 85, Calcium Level 7.9L, Corrected Calcium 9.2, Total Bilirubin 0.2, Aspartate Amino Transf (AST/SGOT) 18, Alanine Aminotransferase (ALT/SGPT) 17, Alkaline Phosphatase 98, Total Protein 5.4L, Albumin 2.4L Microbiology 05/31/19 Blood Culture - Preliminary, Resulted No growth 05/31/19 Influenza Types A,B Antigen ([place]) - Final, Complete 05/31/19 Urine Culture - Final, Complete NO GROWTH Home Meds Active Reported Lenzapro 4%-4% Patch (Lidocaine/Menthol) 1 Each Adh..patch 1 Patch TOP Q12H PRN Levemir Flextouch (Insulin Detemir) 100 Unit/1 Ml Insuln.pen 50 Unit SQ DAILY Carafate (Sucralfate) 1 Gm Tablet 1 Gm PO QID Multaq (Dronedarone HCl) 400 Mg Tablet 400 Mg PO BID Amlodipine Besylate 5 Mg Tablet 5 Mg PO DAILY HOLD IF SBP<110 Furosemide 40 Mg Tablet 40 Mg PO DAILY Diltiazem ER (Diltiazem HCl) 180 Mg Tab.er.24h 180 Mg PO DAILY Digoxin 250 Mcg Tablet 250 Mcg PO DAILY Atorvastatin Calcium 40 Mg Tablet 40 Mg PO 1800 Gs Hemorrhoidal Ointment (Phenyleph/Mineral Oil/Petrolat) 57 Gm Oint.appl RC Q12H PRN Milk of Magnesia (Magnesium Hydroxide) 400 Mg/5 Ml Oral.susp 30 Ml PO DAILY PRN Albuterol Sulfate 2.5 Mg/3 Ml Vial.neb 2.5 Mg NEB Q4H PRN Eliquis (Apixaban) 5 Mg Tablet 5 Mg PO BID Miconazole Nitrate 10 Gm Powder TOP BID APPLY TO GROIN AND UNDER BREASTS Pantoprazole Sodium 40 Mg Tablet.dr 40 Mg PO 1400 Jardiance (Empagliflozin) 10 Mg Tablet 10 Mg PO DAILY [place] 3 500 Softgel ([place]-3/Dha/Epa/Fish Oil) 1 Each Capsule 2 Cap PO DAILY Urecholine (Bethanechol Chloride) 10 Mg Tablet 10 Mg PO BID Aspirin EC (Aspirin) 81 Mg Tablet. 81 Mg PO BID [place]-Tussin Dm Syrup (Guaifenesin/Dextromethorphan) 473 Ml Syrup 10 Ml PO Q4H PRN Trulicity (Dulaglutide) 1.5 Mg/0.5 Ml Pen.injctr 1.5 Mg SQ WE Gabapentin 300 Mg Capsule 300 Mg PO BID Colace (Docusate Sodium) 100 Mg Capsule 100 Mg PO BID Iron (Ferrous Sulfate) 325 Mg Tablet 325 Mg PO DAILY Fluticasone Propionate 16 Gm [place].susp 2 Sprays NS DAILY Glucosamine Chondroitin Tab (Gluc Angulo/Chondro Angulo A/Vit C/Mn) 1 Each Tablet 2 Tab PO DAILY Melatonin 3 Mg Tablet 3 Mg PO HS Cranberry (Cranberry Extract) 500 Mg Tablet 1,000 Mg PO DAILY Super B Complex-Vitamin C (B Complex with Vitamin C) 1 Each Tablet 1 Tab PO DA ISAC Citalopram HBr (Citalopram Hydrobromide) 10 Mg Tablet 10 Mg PO DAILY [Blood Sugar 360] 1 Cap PO UD PRN Valerian Root 500 Mg Capsule 530 Mg PO DAILY PRN Bisacodyl 10 Mg Supp.rect 10 Mg RC DAILY PRN Acetaminophen 500 Mg Tablet 1,000 Mg PO Q6H PRN [place] (Sodium Chloride) 104 Ml [place] 2 Sprays NS Q4H PRN [digize oil] TOP UD PRN MAY BE USED TOPICALLY OR DABBED INSIDE MOUTH ON CHEEK, KEEP AT BEDSIDE AND SELF ADMINISTER FOR DIGESTIVE DIFFICULTIES. Cinnamon (Cinnamon Bark) 500 Mg Capsule 1,000 Mg PO DAILY TAKES 2 (500 MG) CAPSULES Symbicort 160-4.5 Mcg Inhaler (Budesonide/Formoterol Fumarate) 10.2 Gm Hfa.aer.ad 2 Puff IH BID Levemir Flextouch (Insulin Detemir) 100 Unit/1 Ml Insuln.pen 30 Unit SQ HS Essential Balance Tablet (Multivits W-Fe,Other Min/Lut) 1 Each Tablet 1 Tab PO TID Metoprolol Succinate 100 Mg Tab.er.24h 100 Mg PO DAILY HOLD FOR SYSTOLIC BP <100 AND HEART RATE <60 Vitamin D (Cholecalciferol) 5,000 Unit Capsule 5,000 Unit PO HS Instructions to Patient/Family Assessment/Instructions [facility] service at [place] Follow Up Appt.: [facility] rounds Skilled NF Admit to: [facility] Certification (SNF) I certify that SNF services are required to be given on an inpatient basis because of the above named patient's need for custodial care on a continuing basis for the conditions(s) for which he/she was receiving inpatient hospital services prior to his/her transfer to the SNF. [facility] Facility Order: Nursing Services, Chemist Physical-Evaluate & Treat, Physical Therapy-Evaluate & Treat, Speech Language-Evaluate & Treat, Wound Care-Eval/Treat Oxygen Delivery Method: Nasal Cannula (3L/min) Oxygen Flow Rate L/min (Range): 3L/min Discharge Diet: No Restrictions Resuscitation Status: Full Code Fadumo Rush Jun 05, 2019 09:46 Pneu Vac Indicated: Yes Discharge Physical Exam General: Alert, Oriented X3, Cooperative Lungs: Clear to Auscultation Heart: Regular Rate, Other (chronic tachypnea) Psych/Mental Status: Mental Status NL, Mood NL FADUMO RUSH DO Jun 05, 2019 09:50
[2019-06-05] MEDS ORDERED: DRONEDARONE TABLET 400 MG TABLET PO SCH (10:18)
--- NOTE | 2019-06-05 10:39 | NUR ---
report called to STEFANY Durán at [facility] at this time.
--- NOTE | 2019-06-05 10:47 | NUR ---
CM/SS. Patient discharged back to established placement with [facility] under Medicare skilled status via their transport. NH understands to bring patient's wheelchair, clothing, O2. Daughter Shelbi here and aware of arrangements, updated along with patient and Unit RN. Faxed discharge instructions/orders to SNF, prepared packet to accompany patient.
[2019-06-05 11:49] VITALS: BP 121/68
[2019-06-07] MEDS ORDERED: NON-FORMULARY MEDICATION 1 EA EA (Dulaglutide (Trulicity) 1.5 MG) SQ SCH ×4 (21:15)
[2019-06-08] MEDS ORDERED: LIDOCAINE 1% INJ 20 ML 20 ML VIAL ONE (08:00)
== END 2019-06-05 11:50 | DRG 871 ==
LOC: EDUNIT# 13:07 → ER 13:09 → 4TH 16:07 → UNDOADMIN 16:07 → 4TH 06-04 22:00 → UNDOADMIN 06-04 23:32 → 4TH 06-04 23:32 → UNDODISIN 06-05 11:50
PROVIDERS: ADMIT Internal Medicine; ATTEND Internal Medicine
DX: A41.9 Sepsis, unspecified organism (principal); J18.1 Lobar pneumonia, unspecified organism; J96.01 Acute respiratory failure with hypoxia; J44.0 Chronic obstructive pulmonary disease with (acute) lower respiratory infection; J44.1 Chronic obstructive pulmonary disease with (acute) exacerbation; E87.2 Acidosis; N17.9 Acute kidney failure, unspecified; I13.0 Hypertensive heart and chronic kidney disease with heart failure and stage 1 through stage 4 chronic kidney disease, or unspecified chronic kidney disease; N18.4 Chronic kidney disease, stage 4 (severe); I50.9 Heart failure, unspecified; E66.2 Morbid (severe) obesity with alveolar hypoventilation; Z68.42 Body mass index [BMI] 45.0-49.9, adult; I69.354 Hemiplegia and hemiparesis following cerebral infarction affecting left non-dominant side; L89.310 Pressure ulcer of right buttock, unstageable; L89.322 Pressure ulcer of left buttock, stage 2; E86.0 Dehydration; E11.9 Type 2 diabetes mellitus without complications; I48.0 Paroxysmal atrial fibrillation; I25.10 Atherosclerotic heart disease of native coronary artery without angina pectoris; E78.00 Pure hypercholesterolemia, unspecified; J30.2 Other seasonal allergic rhinitis; D64.9 Anemia, unspecified; I69.391 Dysphagia following cerebral infarction; I69.321 Dysphasia following cerebral infarction; N32.81 Overactive bladder; K21.9 Gastro-esophageal reflux disease without esophagitis; F41.9 Anxiety disorder, unspecified; F32.9 Major depressive disorder, single episode, unspecified; Z87.891 Personal history of nicotine dependence; Z79.4 Long term (current) use of insulin
CPT/HCPCS: 36415; 36600; 51702; 71045; 80048; 80053; 80162; 81000; 82274; 82805; 82962; 83605; 83880; 84484; 85007; 85025; 85027; 85610; 85730; 87040; 87088; 87804; 93005; 94640; 94760; 94761; 96361; 96374; 96375

== ENCOUNTER → 2019-06-19 | Outpatient (CLI) | payer MEDICARE, MEDICAID ==
[~2019-06-19] MED LIST changes: +CEFD300C3 PO; +DIGO250T PO; +DILT180T9 PO; +LIDO1ADH54 TOP; +SUCR1TAB36 PO
--- NOTE | 2019-06-19 14:44 | Diagnostic Imaging Report ---
PROCEDURE: US non-OB pelvis comp/trans. TECHNIQUE: Multiple real-time grayscale images were obtained of the pelvis in various projections endovaginally. Transabdominal imaging was also performed. INDICATION: Postmenopausal bleeding and endometrial polyp. FINDINGS: The uterus measures 10.0 x 7.3 x 5.0 cm. The endometrium is abnormally thickened and heterogeneous measuring up to 2.4 cm in thickness. No definite internal vascularity is seen. Heterogeneous mass in the left uterus measures approximately 3.9 x 3.8 x 4.6 cm. Smaller mass on the right measures 1.7 x 0.8 x 0.9 cm. These could represent fibroids. Ovaries were not visualized. There is minimal free fluid in the posterior cul-de-sac. IMPRESSION: 1. Abnormally thickened and heterogeneous endometrium measuring up to 2.4 cm. Endometrial neoplasia cannot be entirely excluded. Endometrial biopsy is likely indicated. 2. Uterine masses, as described. These may represent fibroids. Dictated by: Dictated on workstation # [id number]
== END ==
LOC: RAD 12:06
PROVIDERS: ATTEND Obstetrics & Gynecology
DX: N84.0 Polyp of corpus uteri (principal); N95.0 Postmenopausal bleeding
CPT/HCPCS: 76830; 76856

== ENCOUNTER → 2019-06-26 | Outpatient (CLI) | payer MEDICARE, MEDICAID ==
--- NOTE | 2019-06-26 09:09 | Diagnostic Imaging Report ---
EXAMINATION: US Retroperitoneal Complete. TECHNIQUE: Multiple real-time grayscale images were obtained over the kidneys in various projections bilaterally. HISTORY: Stage III chronic kidney disease FINDINGS: No comparison available The right kidney is normal in size and echogenicity. It measures 11.3 x 5.2 x 5.4 cm. There is no hydronephrosis. No suspicious lesions. No stones are seen. The left kidney is normal in size and echogenicity. It measures 11.5 x 5.6 x 5.2 cm. There is no hydronephrosis. No suspicious lesions. No stones are seen. The urinary bladder is normal. Ureteral jets were not seen. IMPRESSION: 1. Normal kidneys without hydronephrosis. Dictated by: Dictated on workstation # [id number]
== END ==
LOC: RAD 08:10
PROVIDERS: ATTEND Internal Medicine Nephrology
DX: N18.3 Chronic kidney disease, stage 3 (moderate) (principal)
CPT/HCPCS: 76770

== ENCOUNTER 2019-07-05 12:02 | Outpatient (CLI) | payer MEDICARE, MEDICAID ==
[~2019-07-05] VITALS: Ht 167.7 cm; Wt 115.0 kg
[2019-07-05 12:11] VITALS: BP 119/53
[2019-07-05 13:00] LABS: BASOPHILS # (AUTO) 0.1 10^3/uL (0.0-0.1); BASOPHILS % (AUTO) 1 % (0-10); EOSINOPHILS # (AUTO) 0.2 10^3/uL (0.0-0.3); EOSINOPHILS % (AUTO) 3 % (0-10); HEMATOCRIT 31 % (35-52); HEMOGLOBIN 9.1 G/DL (11.5-16.0); LYMPHOCYTES # (AUTO) 1.1 X 10^3 (1.0-4.0); LYMPHOCYTES % (AUTO) 13 % (12-44); MEAN CORPUSCULAR HEMOGLOBIN 26 PG (25-34); MEAN CORPUSCULAR HGB CONC 30 G/DL (32-36); MEAN CORPUSCULAR VOLUME 88 FL (80-99); MONOCYTES # (AUTO) 0.6 X 10^3 (0.0-1.0); MONOCYTES % (AUTO) 8 % (0-12); NEUTROPHILS # (AUTO) 6.1 X 10^3 (1.8-7.8); NEUTROPHILS % (AUTO) 76 % (42-75); PLATELET COUNT 310 10^3/uL (130-400); RED CELL DISTRIBUTION WIDTH 17.1 % (10.0-14.5)
[2019-07-05 13:16] LABS: CALCIUM 8.8 MG/DL (8.5-10.1); CREATININE SERUM 1.79 MG/DL (0.60-1.30); POTASSIUM 3.1 MMOL/L (3.6-5.0)
== END 2019-07-05 12:40 | disposition home or self-care (01) ==
LOC: PREOP 12:02
PROVIDERS: ATTEND Obstetrics & Gynecology
DX: Z01.812 Encounter for preprocedural laboratory examination (principal); N84.0 Polyp of corpus uteri
CPT/HCPCS: 36415; 80048; 85025; 87081

== ENCOUNTER 2019-07-14 10:44 | Day surgery (SDC) | payer MEDICARE, MEDICAID ==
[2019-07-14] VITALS (10 sets, daily range): BP systolic 128–155; BP diastolic 61–84
[~2019-07-14] VITALS: Ht 167.7 cm; Wt 115.0 kg
[2019-07-14] MEDS ORDERED: proPOfol 200 MG/20 ML (DIPRIVAN) VIAL IV ONE (10:53)
[2019-07-14] MEDS ORDERED: MIDAZOLAM 2 MG/2 ML (VERSED) VIAL ONE (10:53)
[2019-07-14] MEDS ORDERED: ONDANSETRON 4 MG/2 ML (SDV) Z0FRAN ONE (10:53)
[2019-07-14] MEDS ORDERED: fentaNYL INJECTION 100 MCG/2 ML AMP ONE (10:53)
[2019-07-14] MEDS ORDERED: SEVOFLURANE (ULTANE) 15 ML INHAL SOLN ONE (10:53)
[2019-07-14] MEDS ORDERED: DEXAMETHASONE 10 MG/ML (DECADRON) 1 ML VIAL ONE (10:53)
[2019-07-14] MEDS ORDERED: LIDOCAINE PF 2% 5 ML (XYLOCAINE) VIAL ONE (10:56)
[2019-07-14] MEDS ORDERED: LACTATED RINGERS 1,000 ML IV PRN (11:24)
[2019-07-14] MEDS ORDERED: ceFAZolin INJECTION 1,000 MG in WATER (STERILE) FOR INJECTION 10 ML IV ONE (11:30)
[2019-07-14] MEDS ORDERED: CATHETER FLUSH 10 ML SYR IV PRN (12:00)
--- NOTE | 2019-07-14 13:10 | Progress Note-Pre Operative ---
Pre-Operative Progress Note H&P Reviewed The H&P was reviewed, patient examined and no changes noted. Date Seen by Provider: Jul 14, 2019 Time Seen by Provider: 12:55 Date H&P Reviewed: Jul 14, 2019 Time H&P Reviewed: 12:55 Pre-Operative Diagnosis: post menopausal bleeding, thickened endometrium endometrial polyp, BERTHA Naqvi DO Jul 14, 2019 13:10 POS
--- NOTE | 2019-07-14 13:46 | Operative Report ---
Operative Report Date of Procedure/Surgery Jul 14, 2019 Surgeon (s) BERTHA CASTELLON DO Narrative Writer (s): NA Post-Operative Diagnosis Abnormal thickened endometrium, endometrial polyp anticoagulated cloudy urine histoyr of UTI Procedure Performed Hysteroscopy, dilation and curettage, Description of Procedure Anesthesia Type: General Estimated blood loss (mL): minimal Specimen(s) collected/removed endometrial curettings Findings of the Procedure Irregular thickened endometrial. Straight cath with cloudy urine hemorrhoids with evidence of bleeding Allergies and Home Medications Allergies Coded Allergies: sulfamethoxazole (Verified Allergy, Unknown, 10/13/17) trimethoprim (Verified Allergy, Unknown, 10/13/17) Home Medications Acetaminophen 500 Mg Tablet, 1,000 MG PO Q6H PRN for PAIN-MILD OR TEMPATURE, (Reported) Albuterol Sulfate 2.5 Mg/3 Ml Vial.neb, 2.5 MG NEB Q4H PRN for WHEEZING, (Reported) Amlodipine Besylate 5 Mg Tablet, 5 MG PO DAILY, (Reported) HOLD IF SBP<110 Apixaban 5 Mg Tablet, 5 MG PO BID, (Reported) Aspirin 81 Mg Tablet.dr, 81 MG PO BID, (Reported) Atorvastatin Calcium 40 Mg Tablet, 40 MG PO 1800, (Reported) B Complex with Vitamin C 1 Each Tablet, 1 TAB PO DAILY, (Reported) Bethanechol Chloride 10 Mg Tablet, 10 MG PO BID, (Reported) Bisacodyl 10 Mg Supp.rect, 10 MG RC DAILY PRN for CONSTIPATION-4TH LINE, (Reported) Budesonide/Formoterol Fumarate 10.2 Gm Hfa.aer.ad, 2 PUFF IH BID, (Reported) Cholecalciferol 5,000 Unit Capsule, 5,000 UNIT PO HS, (Reported) Cinnamon Bark 500 Mg Capsule, 1,000 MG PO DAILY, (Reported) TAKES 2 (500 MG) CAPSULES Citalopram Hydrobromide 10 Mg Tablet, 10 MG PO DAILY, (Reported) Cranberry Extract 500 Mg Tablet, 1,000 MG PO DAILY, (Reported) Diltiazem HCl 180 Mg Tab.er.24h, 180 MG PO DAILY, (Reported) Docusate Sodium 100 Mg Capsule, 100 MG PO BID, (Reported) Dronedarone HCl 400 Mg Tablet, 400 MG PO BID, (Reported) Dulaglutide 1.5 Mg/0.5 Ml Pen.injctr, 1.5 MG SQ We, (Reported) Empagliflozin 10 Mg Tablet, 10 MG PO DAILY, (Reported) Ferrous Sulfate 325 Mg Tablet, 325 MG PO DAILY, (Reported) Fluticasone Propionate 16 Gm [place].susp, 2 SPRAYS NS DAILY, (Reported) Furosemide 40 Mg Tablet, 40 MG PO BID, (Reported) Gabapentin 300 Mg Capsule, 300 MG PO BID, (Reported) Gluc Angulo/Chondro Angulo A/Vit C/Mn 1 Each Tablet, 2 TAB PO DAILY, (Reported) Guaifenesin/Dextromethorphan 473 Ml Syrup, 10 ML PO Q4H PRN for COUGH, (Reported) Insulin Detemir 100 Unit/1 Ml Insuln.pen, 35 UNIT SQ HS, (Reported) Insulin Detemir 100 Unit/1 Ml Insuln.pen, 40 UNIT SQ DAILY, (Reported) Lidocaine/Menthol 1 Each Adh..patch, 1 PATCH TOP DAILY, (Reported) Magnesium Hydroxide 400 Mg/5 Ml Oral.susp, 30 ML PO DAILY PRN for CONSTIPATION- 7TH LINE, (Reported) Melatonin 3 Mg Tablet, 3 MG PO HS, (Reported) Metoprolol Succinate 100 Mg Tab.er.24h, 100 MG PO DAILY, (Reported) HOLD FOR SYSTOLIC BP <100 AND HEART RATE <60 Miconazole Nitrate 10 Gm Powder, TOP BID, (Reported) APPLY TO GROIN AND UNDER BREASTS Multivits W-Fe,Other Min/Lut 1 Each Tablet, 1 TAB PO TID, (Reported) [place]-3/Dha/Epa/Fish Oil 1 Each Capsule, 2 CAP PO DAILY, (Reported) Pantoprazole Sodium 40 Mg Tablet.dr, 40 MG PO 1400, (Reported) Phenyleph/Mineral Oil/Petrolat 57 Gm Oint.appl, RC Q12H PRN for HEMORRHOIDS, (Reported) Sodium Chloride 104 Ml [place], 2 SPRAYS NS Q4H PRN for DRY NOSE, (Reported) Sucralfate 1 Gm Tablet, 1 GM PO QID, (Reported) Valerian Root 500 Mg Capsule, 530 MG PO DAILY PRN for ANXIETY, (Reported) [Blood Sugar 360] , 1 CAP PO UD PRN for BLOOD SUGAR MAINTENANCE, (Reported) [digize oil] , TOP UD PRN for DIGESTIVE DIFFICULTIES, (Reported) MAY BE USED TOPICALLY OR DABBED INSIDE MOUTH ON CHEEK, KEEP AT BEDSIDE AND SELF ADMINISTER FOR DIGESTIVE DIFFICULTIES. Patient Home Medication List Home Medication List Reviewed: Yes BERTHA CASTELLON DO Jul 14, 2019 13:46 POS
--- NOTE | 2019-07-14 13:55 | Discharge Inst-Women's Service ---
Discharge Inst-Women's Serv Depart Medication/Instructions New, Converted or Re-Newed RX: RX on Chart Instructions expect light bleeding Start Eliquis tomorrow Resume all other meds today Start Megace tomorrow (daily for bleeding and hyperplasia) Follow up with me in 10-14 days Final Diagnosis post menopausal bleeding thickened endometrium endometrial polyp uterine mass (fibroid?) anticoagulated cloudy urine hemorrhoids and rectal bleeding Problems Reviewed?: Yes Consults/Follow Up Additional Follow Up: Yes (10-14 days) Activity Activity: Activity as Tolerated Driving Instructions: No Driving for 24 Hours NO SMOKING: NO SMOKING Nothing Inside Vagina: No Douching, No [place], No Tampons Diet Discharge Diet: No Restrictions Symptoms to Report to : Swelling Increased, Bleeding Excessive, Pain Increased, Fever Over 101 Degrees F, Vaginal Bleeding Increase, Cramps in Feet or Legs, Vaginal Discharge Foul For Any Problems or Questions: Contact Your Physician BERTHA CASTELLON DO Jul 14, 2019 13:55 POS
[2019-07-14] MEDS ORDERED: OXC5T PO (13:58)
[2019-07-14] MEDS ORDERED: ACET-77 PO (13:58)
[2019-07-14] MEDS ORDERED: MEGE40TA PO (13:58)
[2019-07-14] MEDS ORDERED: ACETAMINOPHEN 500 MG TAB (TYLENOL) PO PRN (14:00)
[2019-07-14] MEDS ORDERED: MEGESTROL 40 MG (MEGACE) TAB PO SCH (14:00)
[2019-07-14] MEDS ORDERED: HYDROmorphone 2 MG/ML VIAL (DILAUDID) IV ONE (14:00)
[2019-07-14] MEDS ORDERED: ONDANSETRON 4 MG/2 ML (SDV) Z0FRAN IVP PRN (14:00)
--- NOTE | 2019-07-14 14:23 | Anesthesia-General Post-Op ---
General Patient Condition Mental Status/LOC: Same as Preop Cardiovascular: Satisfactory Nausea/Vomiting: Absent Respiratory: Satisfactory Pain: Controlled Complications: Absent Post Op Complications Complications None Follow Up Care/Instructions Patient Instructions None needed. Anesthesia/Patient Condition Patient Condition Patient is doing well, no complaints, stable vital signs, no apparent adverse anesthesia problems. No complications reported per nursing. NEISHA HARKINS CRNA Jul 14, 2019 14:23 POS
[2019-07-28] MEDS ORDERED: NITR100C10 PO (15:15)
== END 2019-07-14 15:50 | disposition home or self-care (01) ==
LOC: SDC 10:44
PROVIDERS: ATTEND Obstetrics & Gynecology
DX: N84.0 Polyp of corpus uteri (principal); E11.9 Type 2 diabetes mellitus without complications; I11.9 Hypertensive heart disease without heart failure; I65.23 Occlusion and stenosis of bilateral carotid arteries; E78.5 Hyperlipidemia, unspecified; R82.998 Other abnormal findings in urine; I48.91 Unspecified atrial fibrillation; I25.10 Atherosclerotic heart disease of native coronary artery without angina pectoris; G47.33 Obstructive sleep apnea (adult) (pediatric); J44.9 Chronic obstructive pulmonary disease, unspecified; F32.9 Major depressive disorder, single episode, unspecified; I69.354 Hemiplegia and hemiparesis following cerebral infarction affecting left non-dominant side; E66.01 Morbid (severe) obesity due to excess calories; Z68.41 Body mass index [BMI] 40.0-44.9, adult; Z87.440 Personal history of urinary (tract) infections; Z79.4 Long term (current) use of insulin; Z79.82 Long term (current) use of aspirin; Z88.2 Allergy status to sulfonamides; Z79.01 Long term (current) use of anticoagulants; Z87.891 Personal history of nicotine dependence
CPT/HCPCS: 82962; 87077; 87088; 87186; 88305; 93005

== ENCOUNTER 2019-07-28 10:06 | Inpatient (IN) | payer MEDICARE, MEDICAID ==
[2019-07-28] VITALS (12 sets, daily range): BP systolic 110–147; BP diastolic 57–95
[~2019-07-28] VITALS: Ht 167.7 cm; Wt 111.5 kg
[~2019-07-28 10:06] MED LIST changes: +ACET-77 PO; +MEGE40TA PO; +OXC5T PO
[2019-07-28] MEDS ORDERED: NS IV 1000 ML 1,000 ML IV SCH (10:17)
[2019-07-28] MEDS ORDERED: ASPIRIN 81 MG CHEW (CHILDREN'S ASA) ONE (10:19)
[2019-07-28 10:27] LABS: BASOPHILS % (AUTO) 0 % (0-10); EOSINOPHILS # (AUTO) 0.2 10^3/uL (0.0-0.3); EOSINOPHILS % (AUTO) 2 % (0-10); HEMATOCRIT 34 % (35-52); HEMOGLOBIN 9.9 G/DL (11.5-16.0); LYMPHOCYTES # (AUTO) 1.1 X 10^3 (1.0-4.0); LYMPHOCYTES % (AUTO) 11 % (12-44); MEAN CORPUSCULAR HEMOGLOBIN 25 PG (25-34); MEAN CORPUSCULAR HGB CONC 29 G/DL (32-36); MEAN CORPUSCULAR VOLUME 84 FL (80-99); MEAN PLATELET VOLUME 9.3 FL (7.4-10.4); MONOCYTES # (AUTO) 0.5 X 10^3 (0.0-1.0); MONOCYTES % (AUTO) 5 % (0-12); NEUTROPHILS # (AUTO) 8.2 X 10^3 (1.8-7.8); NEUTROPHILS % (AUTO) 81 % (42-75); PLATELET COUNT 351 10^3/uL (130-400); RED CELL DISTRIBUTION WIDTH 17.2 % (10.0-14.5); WHITE BLOOD COUNT 10.2 10^3/uL (4.3-11.0)
[2019-07-28] MEDS ORDERED: DILTIAZEM 25 MG/5 ML INJ (CARDIZEM) VIAL IVP ONE (10:30)
[2019-07-28] MEDS ORDERED: ASPIRIN 81 MG CHEW (CHILDREN'S ASA) PO ONE (10:30)
[2019-07-28] MEDS ORDERED: DILTIAZEM IV FOR DRIP 125 MG in NS (IVPB) 100 ML IV SCH (10:30)
--- NOTE | 2019-07-28 10:32 | ED Cardiac General ---
History of Present Illness General Stated Complaint: O2 STATS LOW;LOW PULSE Source: patient Exam Limitations: no limitations History of Present Illness Date Seen by Provider: Jul 28, 2019 Time Seen by Provider: 10:00 Initial Comments Patient presents to ER by private conveyance with chief complaint of feeling lightheaded short of breath and oxygen sats 84% on 4 L by nasal cannula which is her baseline. She was a postop appointment with Dr. Castellon after a D&C for part of her outpatient workup of anemia and postmenopausal endometrial bleeding. She is 2 weeks out. She is on Eliquis for atrial Fibrillation and has a history of atrial fibrillation with rapid ventricular response. She is known to Dr. Calderon. She lives at the [facility] and is accompanied by her caregiver. She has a history of stroke and coronary disease. She denies any chest pain. She also has a history of baseline COPD but denies any wheezing. She is known to Dr. Forman, the [facility]. Allergies and Home Medications Allergies Coded Allergies: sulfamethoxazole (Verified Allergy, Unknown, 10/13/17) trimethoprim (Verified Allergy, Unknown, 10/13/17) Home Medications Acetaminophen 500 Mg Tablet, 1,000 MG PO Q6H PRN for PAIN-MILD OR TEMPATURE, (Reported) Acetaminophen 500 Mg Tablet, 1,000 MG PO Q8H PRN for PAIN-MILD Prescribed by: BERTHA CASTELLON on 07/14/19 1358 Albuterol Sulfate 2.5 Mg/3 Ml Vial.neb, 2.5 MG NEB Q4H PRN for WHEEZING, (Reported) Amlodipine Besylate 5 Mg Tablet, 5 MG PO DAILY, (Reported) HOLD IF SBP<110 Apixaban 5 Mg Tablet, 5 MG PO BID, (Reported) Aspirin 81 Mg Tablet.dr, 81 MG PO BID, (Reported) Atorvastatin Calcium 40 Mg Tablet, 40 MG PO 1800, (Reported) B Complex with Vitamin C 1 Each Tablet, 1 TAB PO DAILY, (Reported) Bethanechol Chloride 10 Mg Tablet, 10 MG PO BID, (Reported) Bisacodyl 10 Mg Supp.rect, 10 MG RC DAILY PRN for CONSTIPATION-4TH LINE, (Reported) Budesonide/Formoterol Fumarate 10.2 Gm Hfa.aer.ad, 2 PUFF IH BID, (Reported) Cholecalciferol 5,000 Unit Capsule, 5,000 UNIT PO HS, (Reported) Cinnamon Bark 500 Mg Capsule, 1,000 MG PO DAILY, (Reported) TAKES 2 (500 MG) CAPSULES Citalopram Hydrobromide 10 Mg Tablet, 10 MG PO DAILY, (Reported) Cranberry Extract 500 Mg Tablet, 1,000 MG PO DAILY, (Reported) Diltiazem HCl 180 Mg Tab.er.24h, 180 MG PO DAILY, (Reported) Docusate Sodium 100 Mg Capsule, 100 MG PO BID, (Reported) Dronedarone HCl 400 Mg Tablet, 400 MG PO BID, (Reported) Dulaglutide 1.5 Mg/0.5 Ml Pen.injctr, 1.5 MG SQ We, (Reported) Empagliflozin 10 Mg Tablet, 10 MG PO DAILY, (Reported) Ferrous Sulfate 325 Mg Tablet, 325 MG PO DAILY, (Reported) Fluticasone Propionate 16 Gm [place].susp, 2 SPRAYS NS DAILY, (Reported) Furosemide 40 Mg Tablet, 40 MG PO BID, (Reported) Gabapentin 300 Mg Capsule, 300 MG PO BID, (Reported) Gluc Angulo/Chondro Angulo A/Vit C/Mn 1 Each Tablet, 2 TAB PO DAILY, (Reported) Guaifenesin/Dextromethorphan 473 Ml Syrup, 10 ML PO Q4H PRN for COUGH, (Reported) Insulin Detemir 100 Unit/1 Ml Insuln.pen, 35 UNIT SQ HS, (Reported) Insulin Detemir 100 Unit/1 Ml Insuln.pen, 40 UNIT SQ DAILY, (Reported) Lidocaine/Menthol 1 Each Adh..patch, 1 PATCH TOP DAILY, (Reported) Magnesium Hydroxide 400 Mg/5 Ml Oral.susp, 30 ML PO DAILY PRN for CONSTIPATION- 7TH LINE, (Reported) Megestrol Acetate 40 Mg Tablet, 80 MG PO DAILY Prescribed by: BERTHA CASTELLON on 07/14/19 1358 Melatonin 3 Mg Tablet, 3 MG PO HS, (Reported) Metoprolol Succinate 100 Mg Tab.er.24h, 100 MG PO DAILY, (Reported) HOLD FOR SYSTOLIC BP <100 AND HEART RATE <60 Miconazole Nitrate 10 Gm Powder, TOP BID, (Reported) APPLY TO GROIN AND UNDER BREASTS Multivits W-Fe,Other Min/Lut 1 Each Tablet, 1 TAB PO TID, (Reported) [place]-3/Dha/Epa/Fish Oil 1 Each Capsule, 2 CAP PO DAILY, (Reported) Oxycodone Hcl 5 Mg Tab, 5 MG PO Q4H PRN for PAIN-SEVERE Prescribed by: BERTHA CASTELLON on 07/14/19 1358 Pantoprazole Sodium 40 Mg Tablet.dr, 40 MG PO 1400, (Reported) Phenyleph/Mineral Oil/Petrolat 57 Gm Oint.appl, RC Q12H PRN for HEMORRHOIDS, (Reported) Sodium Chloride 104 Ml [place], 2 SPRAYS NS Q4H PRN for DRY NOSE, (Reported) Sucralfate 1 Gm Tablet, 1 GM PO QID, (Reported) Valerian Root 500 Mg Capsule, 530 MG PO DAILY PRN for ANXIETY, (Reported) [Blood Sugar 360] , 1 CAP PO UD PRN for BLOOD SUGAR MAINTENANCE, (Reported) [digize oil] , TOP UD PRN for DIGESTIVE DIFFICULTIES, (Reported) MAY BE USED TOPICALLY OR DABBED INSIDE MOUTH ON CHEEK, KEEP AT BEDSIDE AND SELF ADMINISTER FOR DIGESTIVE DIFFICULTIES. Patient Home Medication List Home Medication List Reviewed: Yes Review of Systems Review of Systems Constitutional: No chills, No diaphoresis EENTM: No Blurred Vision, No Double Vision Respiratory: See HPI; Denies Cough; Shortness of Air Cardiovascular: Denies Chest Pain, Denies Edema, Denies Irregular Heart Rate, Denies Lightheadedness Gastrointestinal: See HPI; Denies Abdominal Pain, Denies Constipated, Denies Diarrhea Genitourinary: Denies Burning, Denies Discharge Musculoskeletal: No back pain, No joint swelling Skin: No pruritus, No rash Psychiatric/Neurological: Denies Anxiety, Denies Headache Hematologic/Lymphatic: Anemia; Denies Blood Clots; Easy Bleeding, Easy Bruising All Other Systems Reviewed Negative Unless Noted: Yes Past Zzfqsfs-Vkwptn-Onwxjz Hx Patient Social History Alcohol Use: Denies Use Type Used: Cigarettes Former Smoker, Quit: Sep 13, 1999 2nd Hand Smoke Exposure: No Recent Hopitalizations: No Immunizations Up To Date Tetanus Booster (TDap): Unknown Seasonal Allergies Seasonal Allergies: Yes Past Medical History Surgeries: Yes (SINUS SX, R TKR, FOOT SX, EYE SOCKET RECONSTRUCTION) Joint Replacement, Nose, Orthopedic Respiratory: Yes (03/2017-REPSIRATORY ARREST DUE TO ASPIRATION WITH ASPIRATION PNEUMONIA, O2) Pneumonia, Sleep Apnea, COPD Currently Using CPAP: No Currently Using BIPAP: No Cardiac: Yes Atrial Fibrillation, Chronic Edema/Swelling, Coronary Artery Disease, High Cholesterol, Hypertension Neurological: Yes (CVA WITH LEFT SIDE FLACCID PARALYSIS, DYSPHAGIA AND DYSPHASIA) Stroke 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 Disorders: No [employer] History: Menopausal Genitourinary: Yes (OVERACTIVE BLADDER) Kidney Stones, Renal Failure Gastrointestinal: Yes (DYSPHAGIA) Gastroesophageal Reflux, Chronic Constipation, Hemorrhoids, Ulcer Musculoskeletal: Yes (paralysis left side) Arthritis Endocrine: Yes Diabetes, Insulin dep HEENT: Yes (Nasal SX; DYSPHAGIA; CHRONIC RHINITIS) Dysphagia Loss of Vision: Denies Hearing Impairment: Denies Cancer: No Psychosocial: Yes Sleep Difficulties, Anxiety, Depression Integumentary: No Blood Disorders: Yes (anemia) Adverse Reaction/Blood Tranf: No (No blood transfusions d/t JW) Family Medical History Completed stroke 19 FATHER G8 BROTHER Diabetes mellitus G8 BROTHER Hypertension 19 FATHER 19 MOTHER CVA, Diabetes Physical Exam Vital Signs Vital Signs - First Documented 07/28/19 10:06 Temp 37.4 Pulse 140 Resp 27 B/P (MAP) 165/83 (110) Pulse Ox 93 O2 Delivery OxyMask O2 Flow Rate 8.00 Capillary Refill : Height, Weight, BMI Height: 5'6.00" Weight: 118lbs. 0.5oz. 53.044329vm; 40.89 BMI Method:Estimated General Appearance: Moderate Distress, Obese HEENT: PERRL/EOMI; No Moist Mucous Membranes Neck: Full Range of Motion, Normal Inspection Respiratory: Lungs Clear, Normal Breath Sounds, Accessory Muscle Use, Respiratory Distress (moderate oxygen sats 82% on 4 L by nasal cannula with good pulsatile waveform) Cardiovascular: Irregularly Irregular, Tachycardia Gastrointestinal: Normal Bowel Sounds, Non Tender, Soft Extremity: Normal Capillary Refill, Normal Inspection, Other (lymphedema wraps bilateral lower extremities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: Alert, Oriented x3, Other (residual left-sided motor weakness secondary to old stroke) Procedures/Interventions Date of ETT Placement: May 04, 2019 Time of ETT Placement: 611 Progress/Results/Core Measures Results/Orders Lab Results Laboratory Tests Test 07/28/19 10:10 Range/Units White Blood Count 10.2 4.3-11.0 10^3/uL Red Blood Count 4.00 L 4.35-5.85 10^6/uL Hemoglobin 9.9 L 11.5-16.0 G/DL Hematocrit 34 L 35-52 % Mean Corpuscular Volume 84 80-99 FL Mean Corpuscular Hemoglobin 25 25-34 PG Mean Corpuscular Hemoglobin Concent 29 L 32-36 G/DL Red Cell Distribution Width 17.2 H 10.0-14.5 % Platelet Count 351 130-400 10^3/uL Mean Platelet Volume 9.3 7.4-10.4 FL Neutrophils (%) (Auto) 81 H 42-75 % Lymphocytes (%) (Auto) 11 L 12-44 % Monocytes (%) (Auto) 5 0-12 % Eosinophils (%) (Auto) 2 0-10 % Basophils (%) (Auto) 0 0-10 % Neutrophils # (Auto) 8.2 H 1.8-7.8 X 10^3 Lymphocytes # (Auto) 1.1 1.0-4.0 X 10^3 Monocytes # (Auto) 0.5 0.0-1.0 X 10^3 Eosinophils # (Auto) 0.2 0.0-0.3 10^3/uL Basophils # (Auto) 0.0 0.0-0.1 10^3/uL Prothrombin Time 18.3 H 12.2-14.7 SEC INR Comment 1.5 H 0.8-1.4 Activated Partial Thromboplast Time 35 24-35 SEC Sodium Level 143 135-145 MMOL/L Potassium Level 4.3 3.6-5.0 MMOL/L Chloride Level 109 H 98-107 MMOL/L Carbon Dioxide Level 20 L 21-32 MMOL/L Anion Gap 14 5-14 MMOL/L Blood Urea Nitrogen 25 H 7-18 MG/DL Creatinine 1.70 H 0.60-1.30 MG/DL Estimat Glomerular Filtration Rate 30 BUN/Creatinine Ratio 15 Glucose Level 196 H 70-105 MG/DL Calcium Level 9.9 8.5-10.1 MG/DL Corrected Calcium 10.4 H 8.5-10.1 MG/DL Magnesium Level 2.3 1.6-2.4 MG/DL Total Bilirubin 0.2 0.1-1.0 MG/DL Aspartate Amino Transf (AST/SGOT) 40 H 5-34 U/L Alanine Aminotransferase (ALT/SGPT) 46 0-55 U/L Alkaline Phosphatase 124 40-136 U/L Myoglobin 64.9 10.0-92.0 NG/ML Troponin I < 0.028 <0.028 NG/ML B-Type Natriuretic Peptide 597.0 H <100.0 PG/ML Total Protein 8.2 6.4-8.2 GM/DL Albumin 3.4 3.2-4.5 GM/DL My Orders Orders - JUDITH TOBAR Ed Iv/Invasive Line Start (07/28/19 10:17) Ns Iv 1000 Ml (Sodium Chloride 0.9%) (07/28/19 10:17) Cbc With Automated Diff (07/28/19 10:17) Magnesium (07/28/19 10:17) Chest 1 View, Ap/Pa Only (07/28/19 10:17) Ekg Tracing (07/28/19 10:17) Cardiac Profile 1 (07/28/19 10:17) Comprehensive Metabolic Panel (07/28/19 10:17) Myoglobin Serum (07/28/19 10:17) Protime With Inr (07/28/19 10:17) Partial Thromboplastin Time (07/28/19 10:17) O2 (07/28/19 10:17) Monitor-Rhythm Ecg Trace Only (07/28/19 10:17) Lipid Panel (07/29/19 06:00) Ed Iv/Invasive Line Start (07/28/19 10:17) BNP (07/28/19 10:17) Aspirin Chewable Tablet (Baby Aspirin Ch (07/28/19 10:30) Aspirin Chewable Tablet (Baby Aspirin Ch (07/28/19 10:19) Ns (Ivpb) (Sodium C... W/Diltiazem Iv Fo (07/28/19 10:30) Diltiazem Injection (Cardizem Injection) (07/28/19 10:30) Medications Given in ED Current Medications Medications Dose Ordered Sig/Helen Route Start Time Stop Time Status Last Admin Dose Admin Aspirin 324 mg ONCE ONCE PO 07/28/19 10:30 07/28/19 10:31 DC 07/28/19 10:22 324 MG Diltiazem HCl 20 mg ONCE ONCE IVP 07/28/19 10:30 07/28/19 10:31 DC 07/28/19 10:28 20 MG Vital Signs/I&O 07/28/19 07/28/19 10:06 11:12 Temp 37.4 Pulse 140 118 Resp 27 B/P (MAP) 165/83 (110) 140/83 Pulse Ox 93 O2 Delivery OxyMask O2 Flow Rate 8.00 Progress Progress Note : Time: 10:30 Progress Note She has a good blood pressure and appears to be in atrial fibrillation with rapid ventricular response. Plan to give her a liter of fluids and 20 mg Cardizem. She takes Cardizem 180 mg at baseline. Then we'll put her on a Cardizem drip. She is on Eliquis for anticoagulation. We'll get some labs look for anemia. Put her on a simple O2 mask at 8-10 L and this is brought her oxygen sats up to 95%. Her work of breathing has decreased some. She's not having any wheezing so this does not appear to be related to her reactive airway disease. Plan to give her 324 mg aspirin to chew and swallow and obtain secondary EKG after she's converted or her rate has improved then reexamine her ST segments. Cardiac workup. She will require ICU management for A. fib RVR and Cardizem drip. Initial ECG Impression Date: Jul 28, 2019 Initial ECG Impression Time: 10:14 Initial ECG Rate: 137 Initial ECG Rhythm: A Fib/Flutter Initial ECG Intervals: QT (508) Initial ECG Impression: Atrial Fibrillation w/RVR Initial ECG Comparisson: Changed Comment No clinically relevant ST elevation or depression. There is atrial fibrillation with rapid ventricular response. Diagnostic Imaging Diagonstic Imaging: Xray Plain Films/CT/US/NM/MRI: chest (1v) Reviewed: Reviewed by Me Departure Communication (Admissions) Time/Spoke to Admitting Phy: 11:37 Discussed case lab imaging findings with Dr. Potter she agrees to admit the patient the ICU on a Cardizem drip. Time/Spoke to Consulting Phy: 11:35 Discussed case lab imaging and plan with Dr. Calderon and he agrees to consult on the case. Dr. Calderon came down and examine the patient at bedside in the ER and noted that her lung sounds were wet so he ordered 40 mg IV Lasix times one. Impression Primary Impression: Atrial fibrillation with rapid ventricular response Disposition: ADMITTED INPATIENT Condition: Stable Admissions Decision to Admit Reason: Admit from ER (General) Decision to Admit/Date: Jul 28, 2019 Time/Decision to Admit Time: 11:30 Departure-Patient Inst. Referrals: HERMINIA YAO MD (PCP/Family) Primary Care Physician JUDITH TOBAR Jul 28, 2019 10:31 POS
[2019-07-28 10:36] LABS: INR 1.5 (0.8-1.4); PROTHROMBIN TIME PATIENT 18.3 SEC (12.2-14.7)
[2019-07-28 10:45] LABS: ALANINE AMINOTRANSFERASE 46 U/L (0-55); ALBUMIN 3.4 GM/DL (3.2-4.5); ALKALINE PHOSPHATASE 124 U/L (40-136); BILIRUBIN,TOTAL 0.2 MG/DL (0.1-1.0); BUN/CREATININE RATIO 15; CALCIUM 9.9 MG/DL (8.5-10.1); CARBON DIOXIDE 20 MMOL/L (21-32); CHLORIDE 109 MMOL/L (98-107); GFR ESTIMATED 30; GLUCOSE 196 MG/DL (70-105); MAGNESIUM 2.3 MG/DL (1.6-2.4); POTASSIUM 4.3 MMOL/L (3.6-5.0); SODIUM 143 MMOL/L (135-145); TOTAL PROTEIN 8.2 GM/DL (6.4-8.2)
--- NOTE | 2019-07-28 11:44 | Diagnostic Imaging Report ---
PATIENT HISTORY: Shortness of air, low oxygen saturation. TECHNIQUE: Frontal view of the chest. COMPARISON: 06/01/2019 FINDINGS: There is a large left pleural effusion which is significantly increased since the prior exam. There is associated atelectasis. There is cardiomegaly with central vascular congestion. No pneumothorax is seen. No consolidation is seen in the right lung. IMPRESSION: Large left pleural effusion is significantly increased compared to the prior exam. 2. Cardiomegaly and central vascular congestion. Dictated by: Dictated on workstation # [id number]
[2019-07-28] MEDS ORDERED: FUROSEMIDE 40 MG/4 ML INJ (LASIX) IVP ONE (12:00)
--- NOTE | 2019-07-28 12:22 | Consultation-Cardiology ---
HPI-Cardiology Cardiology Consultation Date of Consultation 07/28/19 Date of Admission Time Seen by Provider: 12:15 Indication: atrial fibrillation HPI 68-year-old lady with history of paroxysmal atrial fibrillation, had D&C recently, was following with Dr. An today where she was noted to be tachycardic, has been having increasing shortness of breath for the past few days. No palpitation. No syncope, has chronic pedal edema. She was sent to the emergency room and noted to be in atrial fibrillation with rapid ventricular response. On my evaluation patient is short of breath, using oxygen mask. Home Medications & Allergies Allergies: Coded Allergies: sulfamethoxazole (Verified Allergy, Unknown, 10/13/17) trimethoprim (Verified Allergy, Unknown, 10/13/17) Home Medication List Reviewed: Yes PAO-Terjkf-Lqegsm Hx Patient Social History Alcohol Use: Denies Use Recreational Drug Use: No Former smoker/When Quit: Sep 13, 1999 Type Used: Cigarettes 2nd Hand Smoke Exposure: No Recent Foreign Travel: No Recent Infectious Disease Expo: No Recent Hopitalizations: No Immunizations Up To Date Tetanus Booster (TDap): Unknown Past Medical History Discussed below Family Medical History Significant Family History: CVA, Diabetes Family History: Completed stroke 19 FATHER G8 BROTHER Diabetes mellitus G8 BROTHER Hypertension 19 FATHER 19 MOTHER Review of Systems-General Review of Systems Constitutional: see HPI; No chills, No diaphoresis; malaise, weakness EENTM: see HPI, no symptoms reported Respiratory: no symptoms reported, see HPI, cough, dyspnea on exertion, short of breath, wheezing Cardiovascular: see HPI; No chest pain; edema; No Hx of Intervention; palpitations; No syncope, No vascular heart diseas, No other Gastrointestinal: no symptoms reported, see HPI Genitourinary: no symptoms reported, see HPI Musculoskeletal: see HPI; No back pain; joint pain; No joint swelling; muscle weakness Skin: see HPI; No pruritus, No rash Psychiatric/Neurological: Denies Anxiety, Denies Headache All Other Systems Reviewed Negative Unless Noted: Yes Reviewed Test Results Reviewed Test Results Lab Laboratory Tests Test 07/28/19 10:10 Range/Units White Blood Count 10.2 4.3-11.0 10^3/uL Red Blood Count 4.00 L 4.35-5.85 10^6/uL Hemoglobin 9.9 L 11.5-16.0 G/DL Hematocrit 34 L 35-52 % Mean Corpuscular Volume 84 80-99 FL Mean Corpuscular Hemoglobin 25 25-34 PG Mean Corpuscular Hemoglobin Concent 29 L 32-36 G/DL Red Cell Distribution Width 17.2 H 10.0-14.5 % Platelet Count 351 130-400 10^3/uL Mean Platelet Volume 9.3 7.4-10.4 FL Neutrophils (%) (Auto) 81 H 42-75 % Lymphocytes (%) (Auto) 11 L 12-44 % Monocytes (%) (Auto) 5 0-12 % Eosinophils (%) (Auto) 2 0-10 % Basophils (%) (Auto) 0 0-10 % Neutrophils # (Auto) 8.2 H 1.8-7.8 X 10^3 Lymphocytes # (Auto) 1.1 1.0-4.0 X 10^3 Monocytes # (Auto) 0.5 0.0-1.0 X 10^3 Eosinophils # (Auto) 0.2 0.0-0.3 10^3/uL Basophils # (Auto) 0.0 0.0-0.1 10^3/uL Prothrombin Time 18.3 H 12.2-14.7 SEC INR Comment 1.5 H 0.8-1.4 Activated Partial Thromboplast Time 35 24-35 SEC Sodium Level 143 135-145 MMOL/L Potassium Level 4.3 3.6-5.0 MMOL/L Chloride Level 109 H 98-107 MMOL/L Carbon Dioxide Level 20 L 21-32 MMOL/L Anion Gap 14 5-14 MMOL/L Blood Urea Nitrogen 25 H 7-18 MG/DL Creatinine 1.70 H 0.60-1.30 MG/DL Estimat Glomerular Filtration Rate 30 BUN/Creatinine Ratio 15 Glucose Level 196 H 70-105 MG/DL Calcium Level 9.9 8.5-10.1 MG/DL Corrected Calcium 10.4 H 8.5-10.1 MG/DL Magnesium Level 2.3 1.6-2.4 MG/DL Total Bilirubin 0.2 0.1-1.0 MG/DL Aspartate Amino Transf (AST/SGOT) 40 H 5-34 U/L Alanine Aminotransferase (ALT/SGPT) 46 0-55 U/L Alkaline Phosphatase 124 40-136 U/L Myoglobin 64.9 10.0-92.0 NG/ML Troponin I < 0.028 <0.028 NG/ML B-Type Natriuretic Peptide 597.0 H <100.0 PG/ML Total Protein 8.2 6.4-8.2 GM/DL Albumin 3.4 3.2-4.5 GM/DL Physical Exam Physical Exam Vital Signs Vital Signs - First Documented 07/28/19 10:06 Temp 37.4 Pulse 140 Resp 27 B/P (MAP) 165/83 (110) Pulse Ox 93 O2 Delivery OxyMask O2 Flow Rate 8.00 Capillary Refill : Less Than 3 Seconds Height, Weight, BMI Height: 5'6.00" Weight: 118lbs. 0.5oz. 53.331652rv; 40.00 BMI Method:Estimated General Appearance: Moderate Distress, Obese Eyes: Bilateral Eye Normal Inspection, Bilateral Eye PERRL, Bilateral Eye EOMI HEENT: PERRL/EOMI; No Moist Mucous Membranes Neck: Full Range of Motion, Normal Inspection Respiratory: Accessory Muscle Use, Crackles, Decreased Breath Sounds, Respiratory Distress (moderate oxygen sats 82% on 4 L by nasal cannula with good pulsatile waveform) Cardiovascular: Systolic Murmur, Irregularly Irregular, Tachycardia Gastrointestinal: Normal Bowel Sounds, Non Tender, Soft Back: Normal Inspection, No CVA Tenderness, No Vertebral Tenderness Extremity: Normal Capillary Refill, Normal Inspection, Pedal Edema, Other (lymphedema wraps bilateral lower extremities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: Alert, Oriented x3, Other (residual left-sided motor weakness secondary to old stroke) Skin: Normal Color, Warm/Dry Lymphatic: No Adenopathy A/P-Cardiology Admission Diagnosis Paroxysmal atrial fibrillation Acute renal failure Acute respiratory failure Hypertension Assessment/Plan Paroxysmal atrial fibrillation, had an episode of atrial fibrillation card ioversion April 2019, currently back in atrial fibrillation with rapid ventricular response. Started on Cardizem drip. I will consider LIZETH with electrical cardioversion tomorrow morning if she did not convert on her own. Continue on Eliquis for now Acute respiratory failure, had history of COPD, obesity hypoventilation syndrome, congestive heart failure. Start on Lasix and monitor closely Anemia, had D&C, has chronic anemia and refused blood transfusion in the past. Managed by Dr. Almazan. History of chronic peripheral edema, recurrent cellulitis with nonhealing wounds, had an abnormal TIANNA but arterial ultrasound did not show significant obstructive disease Chronic kidney disease. Continue to monitor renal function, had stage 3-4 kidney disease followed by Dr. Branham History of CVA with left-sided paralysis, and 10 on aspirin and Eliquis History of DVT, noted on February 19, 2019 after emergency room visit for chest pain and shortness of breath. Maintained on oral anticoagulation. Chronic anticoagulation for history of DVT and atrial fibrillation maintained on Eliquis 5 mg twice daily. Echocardiogram done on February 19, 2019 showing normal left ventricular size and systolic function, ejection fraction 55-65 percent, left atrial dilatation, PA pressure of 20 mmHg. Continue to monitor Hypertension, monitor blood pressure and restart home medication Hyperlipidemia, monitor lipids Diabetes mellitus, followed and managed by primary care physician Obesity, BMI 40. Depression. FARAZ ALCALA MD Jul 28, 2019 12:21 pm POS
[2019-07-28] MEDS ORDERED: meTOprolol SUCCINATE 100 MG (TOPROL XL) TAB PO SCH (13:09)
[2019-07-28] MEDS ORDERED: DILTIAZEM 125 MG/NS 100 ML IV SCH ×2 (13:15)
[2019-07-28] MEDS: 1/2 NS IV SOLUTION 1,000 ML IV SCH ×2 (14:17→22:59)
[2019-07-28] MEDS ORDERED: inSUlin ASPART (NovoLOG) 1 UNIT/0.01 ML (CHARGE PER UNIT) SC SCH (14:30)
[2019-07-28] MEDS ORDERED: MEGE40TA PO (15:15)
[2019-07-28] MEDS ORDERED: NITR100C10 PO ×2 (15:15)
[2019-07-28] MEDS ORDERED: OXC5T PO (15:15)
[2019-07-28] MEDS ORDERED: LIDO1ADH41 TD (15:15)
--- NOTE | 2019-07-28 15:21 | NUR ---
UPDATED MED REC [facility]
[2019-07-28] MEDS ORDERED: RT-ALBUTEROL/IPRATROPIUM 3 ML (DUONEB) VIAL INH PRN (16:45)
[2019-07-28] MEDS ORDERED: FUROSEMIDE 40 MG (LASIX) TAB PO SCH (17:00)
[2019-07-28] MEDS: inSUlin ASPART (NovoLOG) 1 UNIT/0.01 ML (CHARGE PER UNIT) SC SCH ×2 (18:28→20:33)
[2019-07-28] MEDS: RT-ALBUTEROL/IPRATROPIUM 3 ML (DUONEB) VIAL INH SCH ×2 (19:01→21:20)
[2019-07-28] MEDS ORDERED: APIXABAN 5 MG (ELIQUIS) TABLET PO SCH (21:00)
[2019-07-28] MEDS ORDERED: GABAPENTIN 300 MG (NEURONTIN) CAP PO SCH (21:00)
[2019-07-28] MEDS ORDERED: DRONEDARONE TABLET 400 MG TABLET PO SCH (21:00)
[2019-07-29] VITALS (20 sets, daily range): BP systolic 115–145; BP diastolic 54–70
[2019-07-29] MEDS: RT-ALBUTEROL/IPRATROPIUM 3 ML (DUONEB) VIAL INH SCH ×6 (02:21→21:35)
[2019-07-29] MEDS ORDERED: RT-ALBUTEROL SULF 2.5 MG/3 ML PRE-MIX VIAL IH PRN (02:30)
[2019-07-29 03:27] LABS: BASOPHILS % (AUTO) 0 % (0-10); EOSINOPHILS # (AUTO) 0.2 10^3/uL (0.0-0.3); EOSINOPHILS % (AUTO) 3 % (0-10); HEMATOCRIT 27 % (35-52); HEMOGLOBIN 7.9 G/DL (11.5-16.0); LYMPHOCYTES # (AUTO) 1.6 X 10^3 (1.0-4.0); LYMPHOCYTES % (AUTO) 23 % (12-44); MEAN CORPUSCULAR HEMOGLOBIN 25 PG (25-34); MEAN CORPUSCULAR HGB CONC 29 G/DL (32-36); MEAN CORPUSCULAR VOLUME 84 FL (80-99); MEAN PLATELET VOLUME 8.7 FL (7.4-10.4); MONOCYTES # (AUTO) 0.6 X 10^3 (0.0-1.0); MONOCYTES % (AUTO) 9 % (0-12); NEUTROPHILS # (AUTO) 4.5 X 10^3 (1.8-7.8); NEUTROPHILS % (AUTO) 64 % (42-75); PLATELET COUNT 330 10^3/uL (130-400); RED CELL DISTRIBUTION WIDTH 17.5 % (10.0-14.5); WHITE BLOOD COUNT 6.9 10^3/uL (4.3-11.0)
[2019-07-29 03:52] LABS: CALCIUM 8.7 MG/DL (8.5-10.1); CREATININE SERUM 1.45 MG/DL (0.60-1.30); PHOSPHORUS 3.7 MG/DL (2.3-4.7); POTASSIUM 3.8 MMOL/L (3.6-5.0)
--- NOTE | 2019-07-29 04:02 | Cardiology Progress Note ---
Subjective Date Seen by Provider: Jul 29, 2019 Time Seen by Provider: 03:59 Subjective/Events-last exam Patient is in bed, confused, on CPAP, lethargic Review of Systems General: No Chills, No Night Sweats; Fatigue, Malaise; No Appetite, No Other HEENT: No Head Aches, No Visual Changes, No Eye Pain, No Ear Pain, No Dysphasia, No Sinus Congestion, No Post Nasal Drip, No Sore Throat, No Other Pulmonary: Dyspnea; No Cough, No Pleuritic Chest Pain, No Other Cardiovascular: Edema; No: Chest Pain, Palpitations, Orthopnea, Paroxysmal Noc. Dyspnea, Lt Headedness, Other Objective-Cardiology Exam Last Set of Vital Signs Vital Signs 07/28/19 07/29/19 07/29/19 20:00 00:00 03:00 Temp 36.2 Pulse 68 Resp 22 B/P (MAP) 125/57 (79) Pulse Ox 96 O2 Delivery NIV Bilevel O2 Flow Rate 50.00 FiO2 50 Capillary Refill : Less Than 3 Seconds I&O Intake and Output 07/29/19 00:00 Intake Total 1850 ml Output Total 1950 ml Balance -100 ml Intake Oral 850 ml IV Total 1000 ml Output Urine Total 1950 ml General: Alert, Moderate Distress, Other (Lethargic) HEENT: Atraumatic (Lethargic) Neck: Supple Lungs: Normal Air Movement, Other (Bilateral rhonchi) Heart: Regular Rate, Normal S1, Normal S2, Other (Systolic murmur at the left sternal border) Abdomen: Normal Bowel Sounds, Soft Extremities: Normal Pulses, Other (Significant edema) Neuro: Sensation Intact, Other Psych/Mental Status: Mood NL Results Lab Laboratory Tests 07/28/19 10:10 07/29/19 02:53 A/P-Cardiology Admission Diagnosis Paroxysmal atrial fibrillation Acute renal failure Acute respiratory failure Hypertension Assessment/Plan Paroxysmal atrial fibrillation, had an episode of atrial fibrillation cardioversion April 2019, converted back to sinus rhythm on Cardizem drip, I will start oral Cardizem and restart Multaq Anemia, had a recent D&C, significant drop in hemoglobin, patient has been r efusing blood transfusion, I will stop Eliquis and aspirin at this point. Monitor H&H closely. Consider hematology consult Acute respiratory failure, had history of COPD, obesity hypoventilation sy ndrome, congestive heart failure, currently on C Pap. Monitor Change in mental status secondary to hypoxemia History of chronic peripheral edema, recurrent cellulitis with nonhealing wounds, had an abnormal TIANNA but arterial ultrasound did not show significant obstructive disease Chronic kidney disease stage 3-4, slight improvement in renal function, continue to monitor History of CVA with left-sided paralysis, and 10 on aspirin and Eliquis History of DVT, noted on February 19, 2019 after emergency room visit for chest pain and shortness of breath. Maintained on oral anticoagulation, currently on hold Chronic anticoagulation for history of DVT and atrial fibrillation maintained on Eliquis 5 mg twice daily. Echocardiogram done on February 19, 2019 showing normal left ventricular size and systolic function, ejection fraction 55-65 percent, left atrial dilatation, PA pressure of 20 mmHg. Continue to monitor Hypertension, monitor blood pressure and restart home medication Hyperlipidemia, monitor lipids Diabetes mellitus, followed and managed by primary care physician Obesity, BMI 40. Depression. Clinical Quality Measures DVT/VTE Risk/Contraindication: Risk Factor Score Per Nursin RFS Level Per Nursing on Admit: 4+=Very High FARAZ ALCALA MD Jul 29, 2019 04:02 POS
--- NOTE | 2019-07-29 04:28 | NUR ---
RYNE DRIP SHUT OFF AT [address] ALCALA.
[2019-07-29] MEDS: KCL 20 MEQ TAB (K-DUR) PO SCH (04:34)
[2019-07-29] MEDS: POTASSIUM CL 10MEQ/50ML IVPB 50 ML IV SCH (04:34)
[2019-07-29] MEDS: MAGNESIUM 1 GM/100 ML IVPB 100 ML IV SCH (04:34)
[2019-07-29] MEDS: inSUlin ASPART (NovoLOG) 1 UNIT/0.01 ML (CHARGE PER UNIT) SC SCH ×4 (04:44→20:28)
[2019-07-29] MEDS: 1/2 NS IV SOLUTION 1,000 ML IV SCH ×4 (06:55→23:19)
[2019-07-29] MEDS ORDERED: RT-ADVAIR HFA 115/21 MCG PER PUFF IH SCH (08:00)
--- NOTE | 2019-07-29 08:13 | Diagnostic Imaging Report ---
Indication: Shortness of breath Portable chest 3:57 AM There is cardiomegaly. There is consolidation at the left lung base. Right lung is clear. IMPRESSION: Cardiomegaly with left basilar consolidation that could be due to infiltrate, atelectasis or effusion. Appears similar to previous day's comparison exam. Dictated by: Dictated on workstation # [id number]
[2019-07-29] MEDS ORDERED: ASPIRIN 81 MG CHEW (CHILDREN'S ASA) PO SCH (09:00)
[2019-07-29] MEDS: FLUTICASONE NASAL SPRAY (FLONASE) 16 GM BTL NS SCH (10:00)
[2019-07-29] MEDS: PANTOPRAZOLE 40 MG (PROTONIX) TAB PO SCH (10:02)
[2019-07-29] MEDS: DOCUSATE SODIUM 100 MG (COLACE) CAP PO SCH ×2 (10:02→20:29)
[2019-07-29] MEDS: FUROSEMIDE 40 MG (LASIX) TAB PO SCH ×2 (10:02→20:30)
[2019-07-29] MEDS: meTOprolol SUCCINATE 100 MG (TOPROL XL) TAB PO SCH (10:03)
[2019-07-29] MEDS: GABAPENTIN 300 MG (NEURONTIN) CAP PO SCH ×2 (10:03→20:29)
[2019-07-29] MEDS: SUCRALFATE 1 GM (CARAFATE) TAB PO SCH ×4 (10:04→20:30)
[2019-07-29] MEDS: FERROUS SULF 325 MG (IRON) TAB PO SCH (10:04)
[2019-07-29] MEDS: DRONEDARONE TABLET 400 MG TABLET PO SCH ×2 (10:04→20:30)
[2019-07-29] MEDS: ADVAIR HFA 115/21 MCG INHALER 8 GM IH SCH ×2 (10:24→18:40)
--- NOTE | 2019-07-29 10:52 | History & Physical-Hospitalist ---
History of Present Illness HPI/Chief Complaint Patient presents to ER by private conveyance with chief complaint of feeling lightheaded short of breath and oxygen sats 84% on 4 L by nasal cannula which is her baseline. She was a postop appointment with Dr. An after a D&C for part of her outpatient workup of anemia and postmenopausal endometrial bleeding. She is 2 weeks out. She is on Eliquis for atrial Fibrillation and has a history of atrial fibrillation with rapid ventricular response. She is known to Dr. Calderon. She lives at the [facility] and is accompanied by her caregiver. She has a history of stroke and coronary disease. She denies any chest pain. She also has a history of baseline COPD but denies any wheezing. She is known to Dr. Forman, [facility] [place].she has a past history of aspiration pneumonitis secondary to dysphasia from stroke and left sided hemiparesis. This morning she is sleeping comfortably having converted back to sinus rhythm after initiation of Cardizem IV. She is being switched to oral therapy. Date Seen 07/29/19 Time Seen by a Provider: 07:00 Attending Physician Suzette Potter MD PCP Roberto Ramírez MD Referring Physician Date of Admission Jul 28, 2019 at 11:30 Home Medications & Allergies Home Medications Reviewed patient Home Medication Reconciliation performed by pharmacy medication reconciliations loss control technician and/or nursing. Patients Allergies have been reviewed. Allergies Allergies Coded Allergies sulfamethoxazole (Verified Allergy, Unknown, 10/13/17) trimethoprim (Verified Allergy, Unknown, 10/13/17) Past Pywtlxe-Tjtsmu-Nslirg Hx Past Med/Social Hx: Reviewed and Corrections made Patient Social History Alcohol Use: Denies Use Recreational Drug Use: No Former Smoker, Quit: Sep 13, 1999 Type Used: Cigarettes 2nd Hand Smoke Exposure: No Recent Foreign Travel: No Contact w/other who traveled: No Recent Hopitalizations: No Recent Infectious Disease Expo: No Immunizations Up To Date Tetanus Booster (TDap): Unknown Seasonal Allergies Seasonal Allergies: Yes Past Medical History Surgeries: Joint Replacement, Nose, Orthopedic Respiratory: COPD Currently Using CPAP: No Currently Using BIPAP: No Cardiac: Atrial Fibrillation, Chronic Edema/Swelling, Coronary Artery Disease, High Cholesterol, Hypertension Neurological: Stroke : No 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: No Menopausal Genitourinary: Kidney Stones, Renal Failure Gastrointestinal: Gastroesophageal Reflux, Chronic Constipation, Hemorrhoids, Ulcer Musculoskeletal: Arthritis Endocrine: Diabetes, Insulin dep HEENT: Dysphagia Loss of Vision: Denies Hearing Impairment: Denies Psychosocial: Sleep Difficulties, Anxiety, Depression History of Blood Disorders: Yes (anemia) Adverse Reaction to Blood Shoemaker: No (No blood transfusions d/t TAYE) Family History Completed stroke 19 FATHER G8 BROTHER Diabetes mellitus G8 BROTHER Hypertension 19 FATHER 19 MOTHER CVA, Diabetes Review of Systems Constitutional: no symptoms reported Physical Exam Physical Exam Vital Signs Vital Signs - First Documented 07/28/19 07/28/19 10:06 16:21 Temp 37.4 Pulse 140 Resp 27 B/P (MAP) 165/83 (110) Pulse Ox 93 O2 Delivery OxyMask O2 Flow Rate 8.00 FiO2 55 Capillary Refill : Less Than 3 Seconds Height, Weight, BMI Height: 5'6.00" Weight: 118lbs. 0.5oz. [id number]; 40.00 BMI Method:Estimated General Appearance: No Apparent Distress, Obese Neck: Other (no JVD or adenopathy) Respiratory: Other (chest clear anteriorly some decreased breath sounds in the bases) Cardiovascular: Regular Rate, Rhythm, No Edema, No Gallop, No JVD, No Murmur, Normal Peripheral Pulses Gastrointestinal: Normal Bowel Sounds, No Organomegaly, No Pulsatile Mass, Non Tender, Soft Extremity: Normal Inspection, No Pedal Edema Results Results/Procedures Labs Laboratory Tests 07/28/19 10:10 07/29/19 02:53 Patient resulted labs reviewed. Assessment/Plan Admission Diagnosis 1. Atrial fibrillation with rapid ventricular response currently resolved will switch to oral diltiazem. 2. 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 Discussed feeding only when alert sitting upright and monitoring for any evidence for coughing or choking. 3. Congestive heart failure secondary to number 1 improving due to rate control. Admission Status: Inpatient Order (span 2 midnights) Reason for Inpatient Admission: see admission diagnosis Clinical Quality Measures DVT/VTE Risk/Contraindication: Risk Factor Score Per Nursin RFS Level Per Nursing on Admit: 4+=Very High ABDULLAHI WADDELL MD Jul 29, 2019 10:52 POS
--- NOTE | 2019-07-29 11:59 | NUR ---
DR COOK IN AND UPDATING PATIENT. CODE STATUS OPTIONS DISCUSSED. Addendum: 07/29/19 at 1543 by TREVA CHAN RN DISREGARD NOTE FROM 4075 INCORRECT DATA
[2019-07-29] MEDS ORDERED: PANTOPRAZOLE 40 MG (PROTONIX) TAB PO SCH (14:00)
[2019-07-29] MEDS ORDERED: ACETAMINOPHEN 500 MG TAB (TYLENOL) PO PRN (15:00)
[2019-07-29] MEDS ORDERED: DILTIAZEM 180 MG (CARDIZEM CD) CAP PO ONE (19:45)
[2019-07-29] MEDS: MELATONIN 3 MG TABLET PO SCH (20:31)
[2019-07-30] VITALS (27 sets, daily range): BP systolic 109–171; BP diastolic 53–88
[2019-07-30] MEDS: RT-ALBUTEROL/IPRATROPIUM 3 ML (DUONEB) VIAL INH SCH ×6 (02:29→22:44)
[2019-07-30 03:08] LABS: BASOPHILS % (AUTO) 1 % (0-10); EOSINOPHILS # (AUTO) 0.2 10^3/uL (0.0-0.3); EOSINOPHILS % (AUTO) 2 % (0-10); HEMATOCRIT 27 % (35-52); HEMOGLOBIN 8.1 G/DL (11.5-16.0); LYMPHOCYTES # (AUTO) 1.3 X 10^3 (1.0-4.0); LYMPHOCYTES % (AUTO) 20 % (12-44); MEAN CORPUSCULAR HEMOGLOBIN 25 PG (25-34); MEAN CORPUSCULAR HGB CONC 30 G/DL (32-36); MEAN CORPUSCULAR VOLUME 83 FL (80-99); MEAN PLATELET VOLUME 8.8 FL (7.4-10.4); MONOCYTES # (AUTO) 0.5 X 10^3 (0.0-1.0); MONOCYTES % (AUTO) 7 % (0-12); NEUTROPHILS # (AUTO) 4.6 X 10^3 (1.8-7.8); NEUTROPHILS % (AUTO) 70 % (42-75); PLATELET COUNT 323 10^3/uL (130-400); RED CELL DISTRIBUTION WIDTH 17.1 % (10.0-14.5); WHITE BLOOD COUNT 6.6 10^3/uL (4.3-11.0)
[2019-07-30 03:27] LABS: CALCIUM 8.5 MG/DL (8.5-10.1); CREATININE SERUM 1.3 MG/DL (0.60-1.30); MAGNESIUM 1.9 MG/DL (1.6-2.4); PHOSPHORUS 3.4 MG/DL (2.3-4.7); POTASSIUM 3.4 MMOL/L (3.6-5.0)
[2019-07-30] MEDS: inSUlin ASPART (NovoLOG) 1 UNIT/0.01 ML (CHARGE PER UNIT) SC SCH ×4 (05:04→21:15)
[2019-07-30] MEDS: MAGNESIUM 1 GM/100 ML IVPB 100 ML IV SCH (05:04)
[2019-07-30] MEDS: POTASSIUM CL 10MEQ/50ML IVPB 50 ML IV SCH (05:04)
[2019-07-30] MEDS: KCL 20 MEQ TAB (K-DUR) PO SCH (05:04)
[2019-07-30] MEDS: 1/2 NS IV SOLUTION 1,000 ML IV SCH ×2 (05:57→22:03)
[2019-07-30] MEDS: ADVAIR HFA 115/21 MCG INHALER 8 GM IH SCH ×2 (06:08→19:01)
--- NOTE | 2019-07-30 07:12 | Cardiology Progress Note ---
Subjective Date Seen by Provider: Jul 30, 2019 Time Seen by Provider: 07:09 Subjective/Events-last exam Patient is in bed, still having dyspnea, 8L NC, some improvement compared to yesterday Review of Systems General: Fatigue, Malaise HEENT: No Head Aches, No Visual Changes, No Eye Pain, No Ear Pain, No Dysphasia, No Sinus Congestion, No Post Nasal Drip, No Sore Throat, No Other Pulmonary: Dyspnea; No Cough, No Pleuritic Chest Pain, No Other Cardiovascular: Edema; No: Chest Pain, Palpitations, Orthopnea, Paroxysmal Noc. Dyspnea, Lt Headedness, Other Objective-Cardiology Exam Last Set of Vital Signs Vital Signs 07/29/19 07/30/19 07/30/19 23:15 06:00 06:12 Temp 37.0 Pulse 73 Resp 18 B/P (MAP) 146/82 (103) Pulse Ox 93 O2 Delivery High Flow N/C O2 Flow Rate 9.00 Capillary Refill : Less Than 3 Seconds I&O Intake and Output 07/30/19 00:00 Intake Total 2940 ml Output Total 1460 ml Balance 1480 ml Intake Oral 825 ml IV Total 2115 ml Output Urine Total 1460 ml General: Alert, Oriented X3, Cooperative, Moderate Distress, Other (lethargic) HEENT: Atraumatic (Lethargic) Neck: Supple Lungs: Normal Air Movement, Other (Bilateral rhonchi) Heart: Regular Rate, Normal S1, Normal S2, Other (Systolic murmur at the left sternal border) Abdomen: Normal Bowel Sounds, Soft Extremities: Normal Pulses, Other (Significant edema) Neuro: Normal Speech, Sensation Intact, Other Psych/Mental Status: Mood NL Results Lab Laboratory Tests 07/30/19 02:50 A/P-Cardiology Admission Diagnosis Paroxysmal atrial fibrillation Acute renal failure Acute respiratory failure Hypertension Assessment/Plan Paroxysmal atrial fibrillation, had an episode of atrial fibrillation, cardioversion in April 2019, converted back to sinus rhythm on Cardizem drip, back on oral Cardizem and Multaq Anemia, had a recent D&C, significant drop in hemoglobin, patient has been refusing blood transfusion, Monitor H&H closely. Stool ob not done yet. Consider hematology consult Acute respiratory failure, had history of COPD, obesity hypoventilation syndrome, congestive heart failure, slightly better, on Lasix, managed by primary care team Change in mental status secondary to hypoxemia History of chronic peripheral edema, recurrent cellulitis with nonhealing wounds, had an abnormal TIANNA but arterial ultrasound did not show significant obstructive disease Chronic kidney disease stage 3-4, slight improvement in renal function, continue to monitor History of CVA with left-sided paralysis, and 10 on aspirin and Eliquis History of DVT, noted on February 19, 2019 after emergency room visit for chest pain and shortness of breath. Maintained on oral anticoagulation, currently on hold Chronic anticoagulation for history of DVT and atrial fibrillation maintained on Eliquis 5 mg twice daily. Echocardiogram done on February 19, 2019 showing normal left ventricular size and systolic function, ejection fraction 55-65 percent, left atrial dilatation, PA pressure of 20 mmHg. Continue to monitor Hypertension, monitor blood pressure and restart home medication Hyperlipidemia, monitor lipids Diabetes mellitus, followed and managed by primary care physician Obesity, BMI 40. Depression. Clinical Quality Measures DVT/VTE Risk/Contraindication: Risk Factor Score Per Nursin RFS Level Per Nursing on Admit: 4+=Very High FARAZ ALCALA MD Jul 30, 2019 07:12 POS
--- NOTE | 2019-07-30 07:26 | Diagnostic Imaging Report ---
INDICATION: Dyspnea. COMPARISON: 07/29/2019 FINDINGS: Single frontal radiographic view of the chest was obtained and demonstrates interval increase in consolidative opacity of the left mid and lower lung field suggestive of large effusion. Right lung remains relatively clear. There is no large effusion on the right. No pneumothorax is seen on neither side. Cardiac silhouette is obscured. Pulmonary vasculature appears to be within normal limits. Osseous structures are stable. IMPRESSION: 1. Findings suggestive of interval increase in large left-sided pleural effusion. Dictated by: Dictated on workstation # [id number]
[2019-07-30] MEDS ORDERED: KCL 20 MEQ TAB (K-DUR) PO ONE (08:00)
[2019-07-30] MEDS: GABAPENTIN 300 MG (NEURONTIN) CAP PO SCH ×2 (09:00→20:58)
[2019-07-30] MEDS: FUROSEMIDE 40 MG (LASIX) TAB PO SCH ×2 (09:00→20:58)
[2019-07-30] MEDS: FERROUS SULF 325 MG (IRON) TAB PO SCH (09:00)
[2019-07-30] MEDS: FLUTICASONE NASAL SPRAY (FLONASE) 16 GM BTL NS SCH (09:00)
[2019-07-30] MEDS: PANTOPRAZOLE 40 MG (PROTONIX) TAB PO SCH (09:00)
[2019-07-30] MEDS: DRONEDARONE TABLET 400 MG TABLET PO SCH ×2 (09:00→20:58)
[2019-07-30] MEDS: DOCUSATE SODIUM 100 MG (COLACE) CAP PO SCH ×2 (09:00→20:58)
[2019-07-30] MEDS: meTOprolol SUCCINATE 100 MG (TOPROL XL) TAB PO SCH (09:00)
[2019-07-30] MEDS: SUCRALFATE 1 GM (CARAFATE) TAB PO SCH ×4 (09:05→20:58)
[2019-07-30] MEDS: DILTIAZEM 180 MG (CARDIZEM CD) CAP PO SCH (09:05)
--- NOTE | 2019-07-30 12:21 | Progress Note - Hospitalist ---
Subjective HPI/CC On Admission Date Seen by Provider: Jul 30, 2019 Time Seen by Provider: 07:00 Patient presents to ER by private conveyance with chief complaint of feeling lightheaded short of breath and oxygen sats 84% on 4 L by nasal cannula which is her baseline. She was a postop appointment with Dr. An after a D&C for part of her outpatient workup of anemia and postmenopausal endometrial bleeding. She is 2 weeks out. She is on Eliquis for atrial Fibrillation and has a history of atrial fibrillation with rapid ventricular response. She is known to Dr. Calderon. She lives at the [facility] and is accompanied by her caregiver. She has a history of stroke and coronary disease. She denies any chest pain. She also has a history of baseline COPD but denies any wheezing. She is known to Dr. Forman, [facility].she has a past history of aspiration pneumonitis secondary to dysphasia from stroke and left sided hemiparesis. This morning she is sleeping comfortably having converted back to sinus rhythm after initiation of Cardizem IV. She is being switched to oral therapy. Subjective/Events-last exam Patient has remained in sinus rhythm over the past 24 hours with stable vital si gns still requiring high flow oxygen and without BiPAP does desaturate during sleep. She was sleeping comfortably without evidence for obstructive breathing with tachypnea and a respiratory rate around 22 but no accessory muscle respiration and she appeared to be comfortable. Nursing staff report she has been more alert and tolerating liquids and solids without evidence for aspiration. Objective Exam Vital Signs Vital Signs Date Time Temp Pulse Resp B/P (MAP) Pulse Ox O2 Delivery O2 Flow Rate FiO2 07/30/19 11:00 76 24 144/78 (100) 98 Nasal Cannula 8.00 07/30/19 08:00 50 07/29/19 23:15 37.0 Capillary Refill : Less Than 3 Seconds General Appearance: No Apparent Distress, Chronically ill Respiratory: No Accessory Muscle Use, No Respiratory Distress, Accessory Muscle Use, Other (decreased breath sounds on the left except for the apex right side reveals a few scattered rhonchi without wheezing or rales.) Cardiovascular: Regular Rate, Rhythm, No Edema, No Gallop, No JVD, No Murmur, Normal Peripheral Pulses Gastrointestinal: Normal Bowel Sounds, Non Tender, Soft (obese) Results/Procedures Lab Laboratory Tests 07/30/19 02:50 Patient resulted labs reviewed. Assessment/Plan Assessment and Plan Assess & Plan/Chief Complaint 1. Congestive heart failure secondary to atrial fibrillation with rapid ventricular response resolved. Continue current medications for Dr. Galindo. 2. Large left-sided pleural effusion possibly due to number [address] Patel in the morning for consideration for therapeutic and diagnostic tap. Patient does not have any current evidence to suggest an infectious etiology/empyema. 3. There is some baseline alteration of mental status secondary to a large right-sided CVA with past history of aspiration pneumonitis and ongoing left sided hemiparesis. 4. Type II diabetes mellitus under good control on current therapy. Blood sugar this morning was in the low 70s will decrease basal Levemir from 40 units to 30 units. Clinical Quality Measures DVT/VTE Risk/Contraindication: Risk Factor Score Per Nursin RFS Level Per Nursing on Admit: 4+=Very High ABDULLAHI WADDELL MD Jul 30, 2019 12:21 POS
--- NOTE | 2019-07-30 17:09 | NUR ---
DR ALCALA AND DR WADDELL NOTIFIED OF POSITIVE OCCULT STOOL
[2019-07-30] MEDS: MELATONIN 3 MG TABLET PO SCH (20:58)
[2019-07-31] VITALS (14 sets, daily range): BP systolic 122–144; BP diastolic 59–79
[2019-07-31] MEDS: RT-ALBUTEROL/IPRATROPIUM 3 ML (DUONEB) VIAL INH SCH ×6 (02:52→21:39)
[2019-07-31 03:50] LABS: BASOPHILS % (AUTO) 1 % (0-10); EOSINOPHILS # (AUTO) 0.2 10^3/uL (0.0-0.3); EOSINOPHILS % (AUTO) 2 % (0-10); HEMATOCRIT 28 % (35-52); HEMOGLOBIN 8.3 G/DL (11.5-16.0); LYMPHOCYTES # (AUTO) 1.2 X 10^3 (1.0-4.0); LYMPHOCYTES % (AUTO) 17 % (12-44); MEAN CORPUSCULAR HEMOGLOBIN 25 PG (25-34); MEAN CORPUSCULAR HGB CONC 30 G/DL (32-36); MEAN CORPUSCULAR VOLUME 82 FL (80-99); MEAN PLATELET VOLUME 8.7 FL (7.4-10.4); MONOCYTES # (AUTO) 0.6 X 10^3 (0.0-1.0); MONOCYTES % (AUTO) 8 % (0-12); NEUTROPHILS # (AUTO) 5.1 X 10^3 (1.8-7.8); NEUTROPHILS % (AUTO) 72 % (42-75); PLATELET COUNT 340 10^3/uL (130-400); RED CELL DISTRIBUTION WIDTH 17.1 % (10.0-14.5); WHITE BLOOD COUNT 7.1 10^3/uL (4.3-11.0)
[2019-07-31 03:55] LABS: CALCIUM 8.5 MG/DL (8.5-10.1); CREATININE SERUM 1.23 MG/DL (0.60-1.30); MAGNESIUM 1.9 MG/DL (1.6-2.4); PHOSPHORUS 3.1 MG/DL (2.3-4.7); POTASSIUM 3.5 MMOL/L (3.6-5.0)
--- NOTE | 2019-07-31 04:15 | Pulmonary Consultation ---
CALVIN FUENTES MED STUDENT 07/31/19 0414: History of Present Illness History of Present Illness Date of Consultation 07/31/19 04:12 Reason for Visit: atrial fibrillation History of Present Illness Patient is a 68 year old female with a past medical history of Afib on Eliquis, CVA with residual left sided weakness, CAD, COPD recently started on 4L O2 by nursing facility, and anemia s/p D&C 07/14/19. Patient reports that she was feeling short of breath lately and was started on oxygen at her nursing facility. She was found to be tachycardic with low O2 saturation while at a follow up appointment for her D&C. She denied any chest pain, cough, fevers, chills and diaphoresis. Allergies and Home Medications Allergies Coded Allergies: sulfamethoxazole (Verified Allergy, Unknown, 10/13/17) trimethoprim (Verified Allergy, Unknown, 10/13/17) Home Medications Acetaminophen 500 Mg Tablet, 1,000 MG PO Q6H PRN for PAIN-MILD OR TEMPATURE, (Reported) Albuterol Sulfate 2.5 Mg/3 Ml Vial.neb, 2.5 MG NEB Q4H PRN for SHORTNESS OF BREATH, (Reported) Amlodipine Besylate 5 Mg Tablet, 5 MG PO DAILY, (Reported) HOLD IF SBP<110 Aspirin 81 Mg Tablet.dr, 81 MG PO BID, (Reported) Atorvastatin Calcium 40 Mg Tablet, 40 MG PO HS, (Reported) B Complex with Vitamin C 1 Each Tablet, 1 TAB PO DAILY, (Reported) Bethanechol Chloride 10 Mg Tablet, 10 MG PO BID, (Reported) Bisacodyl 10 Mg Supp.rect, 10 MG RC DAILY PRN for CONSTIPATION-4TH LINE, (Reported) Budesonide/Formoterol Fumarate 10.2 Gm Hfa.aer.ad, 2 PUFF IH BID, (Reported) Cefdinir 300 Mg Capsule, 300 MG PO BID Prescribed by: ALEJANDRA RUSH on 08/15/19 1001 Cholecalciferol 5,000 Unit Capsule, 5,000 UNIT PO HS, (Reported) Cinnamon Bark 500 Mg Capsule, 1,000 MG PO DAILY, (Reported) TAKES 2 (500 MG) CAPSULES Citalopram Hydrobromide 10 Mg Tablet, 10 MG PO DAILY, (Reported) Cranberry Extract 500 Mg Tablet, 1,000 MG PO DAILY, (Reported) Diltiazem HCl 180 Mg Tab.er.24h, 180 MG PO DAILY, (Reported) Docusate Sodium 100 Mg Capsule, 100 MG PO BID, (Reported) Dronedarone HCl 400 Mg Tablet, 400 MG PO BID, (Reported) Dulaglutide 1.5 Mg/0.5 Ml Pen.injctr, 1.5 MG SQ We, (Reported) Empagliflozin 10 Mg Tablet, 10 MG PO DAILY, (Reported) Enoxaparin Sodium 40 Mg/0.4 Ml Syringe, 40 MG SC Q12H Prescribed by: ALEJANDRA RUSH on 08/15/19 100 Ferrous Sulfate 325 Mg Tablet, 325 MG PO DAILY, (Reported) Fluticasone Propionate 16 Gm [place].susp, 2 SPRAYS NS DAILY, (Reported) Furosemide 40 Mg Tablet, 40 MG PO BID, (Reported) Gabapentin 300 Mg Capsule, 300 MG PO BID, (Reported) Gluc Angulo/Chondro Angulo A/Vit C/Mn 1 Each Tablet, 2 TAB PO DAILY, (Reported) Guaifenesin/Dextromethorphan 473 Ml Syrup, 10 ML PO Q4H PRN for COUGH, (Reported) Insulin Detemir 100 Unit/1 Ml Insuln.pen, 35 UNIT SQ HS, (Reported) Insulin Detemir 100 Unit/1 Ml Insuln.pen, 40 UNIT SQ DAILY, (Reported) Lidocaine 1 Each Adh..patch, 1 PATCH TD DAILY, (Reported) 4% APPLY TO UPPER RIGHT THIGH Linezolid 600 Mg Tablet, 600 MG PO BID Prescribed by: ALEJANDRA RUSH on 08/15/19 100 Magnesium Hydroxide 400 Mg/5 Ml Oral.susp, 30 ML PO DAILY PRN for CONSTIPATION- 7TH LINE, (Reported) Megestrol Acetate 40 Mg Tablet, 80 MG PO DAILY, (Reported) TAKES 2 (40MG) TABLETS Melatonin 3 Mg Tablet, 3 MG PO HS, (Reported) Metoprolol Succinate 100 Mg Tab.er.24h, 100 MG PO DAILY, (Reported) HOLD FOR SYSTOLIC BP <100 AND HEART RATE <60 Miconazole Nitrate 10 Gm Powder, TOP BID, (Reported) APPLY TO GROIN AND UNDER BREASTS Multivits W-Fe,Other Min/Lut 1 Each Tablet, 1 TAB PO TID, (Reported) [place]-3/Dha/Epa/Fish Oil 1 Each Capsule, 2 CAP PO DAILY, (Reported) Oxycodone HCl 5 Mg Tablet, 5 MG PO Q4H PRN for PAIN-SEVERE (8-10), (Reported) Pantoprazole Sodium 40 Mg Tablet.dr, 40 MG PO 1400, (Reported) Phenyleph/Mineral Oil/Petrolat 57 Gm Oint.appl, RC Q12H PRN for HEMORRHOIDS, (Reported) Potassium Chloride 10 Meq Tablet.er, 10 MEQ PO DAILY@0700 Prescribed by: ALEJANDRA RUSH on 08/15/19 1001 Sodium Chloride 104 Ml [place], 2 SPRAYS NS Q4H PRN for DRY NOSE, (Reported) Sucralfate 1 Gm Tablet, 1 GM PO QID, (Reported) Valerian Root 500 Mg Capsule, 530 MG PO DAILY PRN for ANXIETY, (Reported) [Blood Sugar 360] , 1 CAP PO UD PRN for BLOOD SUGAR MAINTENANCE, (Reported) [digize oil] , TOP UD PRN for DIGESTIVE DIFFICULTIES, (Reported) MAY BE USED TOPICALLY OR DABBED INSIDE MOUTH ON CHEEK, KEEP AT BEDSIDE AND SELF ADMINISTER FOR DIGESTIVE DIFFICULTIES. Past Jqtvxbr-Lqxafa-Inxyry Hx Past Med/Social Hx: Reviewed and Corrections made Patient Social History Alcohol Use: Denies Use Recreational Drug Use: No Type Used: Cigarettes Former Smoker, Quit: Sep 13, 1999 2nd Hand Smoke Exposure: No Recent Foreign Travel: No Contact w/Someone Who Travel: No Recent Infectious Disease Expo: No Recent Hopitalizations: No Immunizations Up To Date Tetanus Booster (TDap): Unknown Seasonal Allergies Seasonal Allergies: Yes Past Medical History Surgeries: Yes (SINUS SX, R TKR, FOOT SX, EYE SOCKET RECONSTRUCTION) Joint Replacement, Nose, Orthopedic Respiratory: Yes (03/2017-REPSIRATORY ARREST DUE TO ASPIRATION WITH ASPIRATION PNEUMONIA, O2) Pneumonia, Sleep Apnea, COPD Currently Using CPAP: No Currently Using BIPAP: No Cardiac: Yes Atrial Fibrillation, Chronic Edema/Swelling, Coronary Artery Disease, High Cholesterol, Hypertension Neurological: Yes (CVA WITH LEFT SIDE FLACCID PARALYSIS, DYSPHAGIA AND DYSPHASIA) Stroke : No 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 Disorders: No 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 History: Menopausal Genitourinary: Yes (OVERACTIVE BLADDER) Kidney Stones, Renal Failure Gastrointestinal: Yes (DYSPHAGIA) Gastroesophageal Reflux, Chronic Constipation, Hemorrhoids, Ulcer Musculoskeletal: Yes (paralysis left side) Arthritis Endocrine: Yes Diabetes, Insulin dep HEENT: Yes (Nasal SX; DYSPHAGIA; CHRONIC RHINITIS) Dysphagia Loss of Vision: Denies Hearing Impairment: Denies Cancer: No Psychosocial: Yes Sleep Difficulties, Anxiety, Depression Integumentary: No Blood Disorders: Yes (anemia) Adverse Reaction/Blood Tranf: No (No blood transfusions d/t TAYE) Family Medical History Completed stroke 19 FATHER G8 BROTHER Diabetes mellitus G8 BROTHER Hypertension 19 FATHER 19 MOTHER CVA, Diabetes Review of Systems Constitutional: No: Fever, Chills Respiratory: Shortness of breath; No: Cough, Pleuritic Pain Cardiovascular: Edema; No: Chest Pain, Palpitations Gastrointestinal: No: Nausea, Vomiting Neurological: Weakness (residual from stroke 8 years ago) Sepsis Event Evaluation Height, Weight, BMI Height: 5'6.00" Weight: 118lbs. 0.5oz. 53.599827af; 40.00 BMI Method:Estimated Exam Exam Vital Signs Date Time Temp Pulse Resp B/P (MAP) Pulse Ox O2 Delivery O2 Flow Rate FiO2 07/31/19 03:00 68 21 131/67 (88) 94 High Flow N/C 8.00 07/31/19 02:52 94 High Flow N/C 7.00 07/31/19 02:36 High Flow N/C 8.00 07/31/19 02:00 66 20 134/59 (84) 96 NIV Bilevel 50.00 07/31/19 01:00 64 19 125/59 (81) 96 NIV Bilevel 50.00 07/31/19 00:00 98 NIV Bilevel 8.00 50 07/31/19 00:00 65 19 133/59 (83) 96 NIV Bilevel 50.00 07/30/19 23:00 68 20 133/60 (84) 95 NIV Bilevel 50.00 07/30/19 22:50 NIV Bilevel 50.00 07/30/19 22:44 71 20 93 50.00 07/30/19 22:00 70 20 133/63 (86) 94 High Flow N/C 8.00 07/30/19 21:00 77 20 148/75 (99) 93 High Flow N/C 8.00 07/30/19 20:00 75 23 139/60 (86) 93 High Flow N/C 8.00 07/30/19 20:00 98 High Flow N/C 8.00 07/30/19 20:00 37.0 07/30/19 19:03 92 High Flow N/C 9.00 07/30/19 19:00 78 28 149/88 (108) 90 Nasal Cannula 8.00 07/30/19 18:50 77 07/30/19 18:00 76 22 135/63 (87) 93 Nasal Cannula 8.00 07/30/19 17:11 82 22 138/63 (88) 91 Nasal Cannula 8.00 07/30/19 17:00 83 21 136/63 (87) 93 Nasal Cannula 8.00 07/30/19 16:00 98 NIV Bilevel 50 07/30/19 16:00 23 22 132/71 (91) 92 Nasal Cannula 8.00 07/30/19 15:00 79 22 143/66 (91) 94 Nasal Cannula 8.00 07/30/19 14:11 94 High Flow N/C 9.00 07/30/19 14:00 79 23 137/65 (89) 94 Nasal Cannula 8.00 07/30/19 13:00 78 07/30/19 13:00 75 24 150/75 (100) 91 Nasal Cannula 8.00 07/30/19 12:00 98 NIV Bilevel 50 07/30/19 12:00 78 20 171/80 (110) 92 Nasal Cannula 8.00 07/30/19 11:00 76 24 144/78 (100) 98 Nasal Cannula 8.00 07/30/19 10:49 93 High Flow N/C 9.00 07/30/19 10:00 66 17 129/58 (81) 98 Nasal Cannula 50.00 07/30/19 10:00 69 21 143/77 (99) 98 NIV Bilevel 50.00 07/30/19 09:00 70 20 143/77 (99) 95 High Flow N/C 8.00 07/30/19 08:00 98 NIV Bilevel 50 07/30/19 08:00 79 17 153/81 (105) 92 High Flow N/C 8.00 07/30/19 07:00 71 07/30/19 07:00 69 19 147/63 (91) 93 High Flow N/C 8.00 07/30/19 06:12 93 High Flow N/C 9.00 07/30/19 06:00 73 18 146/82 (103) 96 High Flow N/C 8.00 07/30/19 05:38 High Flow N/C 8.00 07/30/19 05:00 66 17 129/58 (81) 98 NIV Bilevel 50.00 I & O 07/31/19 07:00 Intake Total 1500 ml Output Total 2475 ml Balance -975 ml Height & Weight Height: 5'6.00" Weight: 118lbs. 0.5oz. 53.385458jq; 40.00 BMI Method:Estimated General Appearance: No Apparent Distress, Chronically ill HEENT: PERRL/EOMI Neck: Other (no JVD or adenopathy) Respiratory: No Accessory Muscle Use, No Respiratory Distress, Decreased Breath Sounds (on the left ), Other (decreased breath sounds on the left except for the apex right side reveals a few scattered rhonchi without wheezing or rales.) Cardiovascular: Regular Rate, Rhythm Capillary Refill: Less Than 3 Seconds Peripheral Pulses: 2+ Radial Pulses (R), 2+ Radial Pulses (L) Gastrointestinal: normal bowel sounds, non tender, soft Extremity: Normal Inspection, Pedal Edema (L>R chronic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: Alert, Oriented x3, Other (residual left-sided motor weakness secondary to past CVA) Skin: Normal Color, Warm/Dry Lymphatic: No Adenopathy Results Lab Laboratory Tests 07/30/19 02:50 07/31/19 03:00 Radiology 07/30/19 Chest Xray IMPRESSION: 1. Findings suggestive of interval increase in large left-sided pleural effusion. Assessment/Plan Assessment/Plan Afib with RVR -Appreciate cardiology recs -Converted to sinus -Diltiazem 180mg daily -Dronedarone 400mg BID DM type II -Jardiance 10mg -Levemir 30U HS -Trulia CHF -Furosemide 40mg BID Left sided pleural effusion -currently on furosemide 40mg BID -Consider thoracentesis CKD HARSHIL PATEL DO 07/31/19 0504: History of Present Illness History of Present Illness Time Seen by Provider: 04:56 History of Present Illness 68yo with hx of oxygen dependent COPD from ECF presented to ED on 07/28 secondary to worsening SOB. Pt was found to have large left pleural effusion. Pt does have a hx of diastolic dysfunction. Pt was placed on Lasix at admission which did not improve pleural effusion. Pt is also currently receiving 1/2 NS at 125 cc/hr. No f/ns/c. No leukocytosis. I am consulted for ICU/Pulmonary management. Allergies and Home Medications Allergies Coded Allergies: sulfamethoxazole (Verified Allergy, Unknown, 10/13/17) trimethoprim (Verified Allergy, Unknown, 10/13/17) Home Medications Acetaminophen 500 Mg Tablet, 1,000 MG PO Q6H PRN for PAIN-MILD OR TEMPATURE, (Reported) Albuterol Sulfate 2.5 Mg/3 Ml Vial.neb, 2.5 MG NEB Q4H PRN for SHORTNESS OF BREATH, (Reported) Amlodipine Besylate 5 Mg Tablet, 5 MG PO DAILY, (Reported) HOLD IF SBP<110 Aspirin 81 Mg Tablet.dr, 81 MG PO BID, (Reported) Atorvastatin Calcium 40 Mg Tablet, 40 MG PO HS, (Reported) B Complex with Vitamin C 1 Each Tablet, 1 TAB PO DAILY, (Reported) Bethanechol Chloride 10 Mg Tablet, 10 MG PO BID, (Reported) Bisacodyl 10 Mg Supp.rect, 10 MG RC DAILY PRN for CONSTIPATION-4TH LINE, (Reported) Budesonide/Formoterol Fumarate 10.2 Gm Hfa.aer.ad, 2 PUFF IH BID, (Reported) Cefdinir 300 Mg Capsule, 300 MG PO BID Prescribed by: ALEJANDRA RUSH on 08/15/19 100 Cholecalciferol 5,000 Unit Capsule, 5,000 UNIT PO HS, (Reported) Cinnamon Bark 500 Mg Capsule, 1,000 MG PO DAILY, (Reported) TAKES 2 (500 MG) CAPSULES Citalopram Hydrobromide 10 Mg Tablet, 10 MG PO DAILY, (Reported) Cranberry Extract 500 Mg Tablet, 1,000 MG PO DAILY, (Reported) Diltiazem HCl 180 Mg Tab.er.24h, 180 MG PO DAILY, (Reported) Docusate Sodium 100 Mg Capsule, 100 MG PO BID, (Reported) Dronedarone HCl 400 Mg Tablet, 400 MG PO BID, (Reported) Dulaglutide 1.5 Mg/0.5 Ml Pen.injctr, 1.5 MG SQ We, (Reported) Empagliflozin 10 Mg Tablet, 10 MG PO DAILY, (Reported) Enoxaparin Sodium 40 Mg/0.4 Ml Syringe, 40 MG SC Q12H Prescribed by: ALEJANDRA RUSH on 12/3/19 1001 Ferrous Sulfate 325 Mg Tablet, 325 MG PO DAILY, (Reported) Fluticasone Propionate 16 Gm [place].susp, 2 SPRAYS NS DAILY, (Reported) Furosemide 40 Mg Tablet, 40 MG PO BID, (Reported) Gabapentin 300 Mg Capsule, 300 MG PO BID, (Reported) Gluc Angulo/Chondro Angulo A/Vit C/Mn 1 Each Tablet, 2 TAB PO DAILY, (Reported) Guaifenesin/Dextromethorphan 473 Ml Syrup, 10 ML PO Q4H PRN for COUGH, (Reported) Insulin Detemir 100 Unit/1 Ml Insuln.pen, 35 UNIT SQ HS, (Reported) Insulin Detemir 100 Unit/1 Ml Insuln.pen, 40 UNIT SQ DAILY, (Reported) Lidocaine 1 Each Adh..patch, 1 PATCH TD DAILY, (Reported) 4% APPLY TO UPPER RIGHT THIGH Linezolid 600 Mg Tablet, 600 MG PO BID Prescribed by: ALEJANDRA RUSH on 08/15/191000 Magnesium Hydroxide 400 Mg/5 Ml Oral.susp, 30 ML PO DAILY PRN for CONSTIPATION- 7TH LINE, (Reported) Megestrol Acetate 40 Mg Tablet, 80 MG PO DAILY, (Reported) TAKES 2 (40MG) TABLETS Melatonin 3 Mg Tablet, 3 MG PO HS, (Reported) Metoprolol Succinate 100 Mg Tab.er.24h, 100 MG PO DAILY, (Reported) HOLD FOR SYSTOLIC BP <100 AND HEART RATE <60 Miconazole Nitrate 10 Gm Powder, TOP BID, (Reported) APPLY TO GROIN AND UNDER BREASTS Multivits W-Fe,Other Min/Lut 1 Each Tablet, 1 TAB PO TID, (Reported) [place]-3/Dha/Epa/Fish Oil 1 Each Capsule, 2 CAP PO DAILY, (Reported) Oxycodone HCl 5 Mg Tablet, 5 MG PO Q4H PRN for PAIN-SEVERE (8-10), (Reported) Pantoprazole Sodium 40 Mg Tablet.dr, 40 MG PO 1400, (Reported) Phenyleph/Mineral Oil/Petrolat 57 Gm Oint.appl, RC Q12H PRN for HEMORRHOIDS, (Reported) Potassium Chloride 10 Meq Tablet.er, 10 MEQ PO DAILY@0700 Prescribed by: ALEJANDRA RUSH on 08/15/191000 Sodium Chloride 104 Ml [place], 2 SPRAYS NS Q4H PRN for DRY NOSE, (Reported) Sucralfate 1 Gm Tablet, 1 GM PO QID, (Reported) Valerian Root 500 Mg Capsule, 530 MG PO DAILY PRN for ANXIETY, (Reported) [Blood Sugar 360] , 1 CAP PO UD PRN for BLOOD SUGAR MAINTENANCE, (Reported) [digize oil] , TOP UD PRN for DIGESTIVE DIFFICULTIES, (Reported) MAY BE USED TOPICALLY OR DABBED INSIDE MOUTH ON CHEEK, KEEP AT BEDSIDE AND SELF ADMINISTER FOR DIGESTIVE DIFFICULTIES. Past Taqesxj-Jadiic-Eztzew Hx Family Medical History Completed stroke 19 FATHER G8 BROTHER Diabetes mellitus G8 BROTHER Hypertension 19 FATHER 19 MOTHER Review of Systems Time Seen by Provider: 13:02 Exam Exam General Appearance: No Apparent Distress, Chronically ill HEENT: PERRL/EOMI Respiratory: No Accessory Muscle Use, No Respiratory Distress, Decreased Breath Sounds (on the left ) Cardiovascular: Regular Rate, Rhythm Capillary Refill: Less Than 3 Seconds Peripheral Pulses: 2+ Radial Pulses (R), 2+ Radial Pulses (L) Gastrointestinal: normal bowel sounds, non tender, soft Extremity: Normal Inspection, Pedal Edema (L>R chronic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: Alert, Oriented x3 Skin: Normal Color, Warm/Dry Lymphatic: No Adenopathy Assessment/Plan Assessment/Plan Left large pleural effusion r/o cancer - Doubt from CHF since it is left sided -Will do dx thoracentesis -Will check CT scan of chest after thoracentesis to r/o mass Oxygen dependent COPD -quit smoking in 1999 -13pk/yr hx of tobacco use Afib with RVR - Now Converted to sinus -Diltiazem 180mg daily -Dronedarone 400mg BID DM type II -Jardiance 10mg -Levemir 30U HS -Trulia CHF -Furosemide 40mg BID -Repeat Echo CKD Supervisory-Addendum Brief Verification & Attestation Participated in pt care: history Personally performed: exam, history Care discussed with: Medical Student Procedures: n/a Verification and Attestation of Medical Student E/M Service A medical student performed and documented this service in my presence. I reviewed and verified all information documented by the medical student and made modifications to such information, when appropriate. I personally performed the physical exam and medical decision making. Harshil Patel, Aug 15, 2019,13:03 CALVIN FUENTES MED STUDENT Jul 31, 2019 04:14 HARSHIL HOLM DO Jul 31, 2019 05:04 POS
[2019-07-31] MEDS: inSUlin ASPART (NovoLOG) 1 UNIT/0.01 ML (CHARGE PER UNIT) SC SCH ×4 (04:33→21:49)
[2019-07-31] MEDS: POTASSIUM CL 10MEQ/50ML IVPB 50 ML IV SCH (04:34)
[2019-07-31] MEDS: KCL 20 MEQ TAB (K-DUR) PO SCH (04:34)
[2019-07-31] MEDS: MAGNESIUM 1 GM/100 ML IVPB 100 ML IV SCH (04:34)
--- NOTE | 2019-07-31 06:31 | Pulmonary Procedures ---
Pulmonary Procedures Date of Procedure Date of Service: Jul 31, 2019 Procedure: US guided complex thoracentesis Preop DX: pleural effusion post op DX: Same 1500cc of dark yellow fluid obtained) Complications: None After informed consent obtained US was used to localize pleural fluid. Pt has [bilateral L>R] pleural effusions. Skin was anesthetized at approximately the 10th ICS posterior axillary line. Thoracentesis needle was advanced through the 10th ICS posterior axillary line. Needle was removed and catheter left in place.1500cc of yellow fluid obtained using vacuum bottles. Catheter was then removed. Pt tolerated procedure well. No complications noted. AMNA WRIGHT DO Jul 31, 2019 06:31 POS
[2019-07-31] MEDS: ADVAIR HFA 115/21 MCG INHALER 8 GM IH SCH ×2 (06:36→18:44)
[2019-07-31 06:54] LABS: ALBUMIN 2.8 GM/DL (3.2-4.5); BILIRUBIN,DIRECT 0.1 MG/DL (0.0-0.3); BILIRUBIN,INDIRECT 0.1 MG/DL; BILIRUBIN,TOTAL 0.2 MG/DL (0.1-1.0); TOTAL PROTEIN 6.4 GM/DL (6.4-8.2)
[2019-07-31] MEDS: 1/2 NS IV SOLUTION 1,000 ML IV SCH (06:58)
[2019-07-31] MEDS ORDERED: KCL 20 MEQ TAB (K-DUR) PO NR (07:00)
--- NOTE | 2019-07-31 07:08 | Diagnostic Imaging Report ---
EXAMINATION: Chest 1 view HISTORY: Thoracentesis FINDINGS: Comparison is 07/31/2019. Previously seen left-sided pneumothorax is now small. No pneumothorax is seen. There is mild edema in the left lung base likely related to reexpansion. Heart size is normal. There is a tiny right pleural effusion which is stable. No consolidation. IMPRESSION: 1. Decreased size of now small left pleural effusion. No pneumothorax. Dictated by: Dictated on workstation # [id number]
[2019-07-31] MEDS ORDERED: CATHETER FLUSH 10 ML SYR IV PRN (07:45)
[2019-07-31] MEDS ORDERED: NS 100 ML (IVPB) BAG IV ONE (07:45)
[2019-07-31] MEDS ORDERED: IOHEXOL 350 MG/ML 100 ML (OMNIPAQUE 350) VIAL IV ONE (07:45)
[2019-07-31] MEDS ORDERED: HOLD METFORMIN - RECEIVED CONTRAST 20 ML VIAL IV SCH (07:45)
[2019-07-31 07:50] LABS: GLUCOSE,BODY FLUID 132 MG/DL; LDH,BODY FLUID 102 U/L; TOTAL PROTEIN,BODY FLUID 3.7 G/DL
--- NOTE | 2019-07-31 08:09 | Diagnostic Imaging Report ---
EXAMINATION: Chest 1 view INDICATION: Shortness of breath. Comparison is 07/30/2019. FINDINGS: Large left pleural effusion is seen with collapse of the left lower lobe. Right lung is clear without pleural effusion. No pneumothorax. Heart borders are obscured by the pleural effusion. Pleural effusion size is stable. IMPRESSION: 1. Stable large left pleural effusion. Dictated by: Dictated on workstation # [id number]
[2019-07-31 08:13] LABS: BODY FLUID APPEARENCE SLT CLDY; BODY FLUID COLOR YELLOW; BODY FLUID RBC COUNT 1950 /uL; BODY FLUID SOURCE THORACENTESIS; BODY FLUID WBC TOTAL COUNT 16 /uL
[2019-07-31 08:33] LABS: LYMPHOCYTES,BODY FLUID 44 %
[2019-07-31] MEDS: NON-FORMULARY MEDICATION 1 EA EA (Empagliflozin (Jardiance) 10 MG) PO SCH (08:37)
--- NOTE | 2019-07-31 08:39 | Diagnostic Imaging Report ---
EXAMINATION: CT Chest with intravenous contrast. TECHNIQUE: Multiple contiguous axial images were obtained through the chest after the uneventful administration of intravenous contrast. All CT scans use one or more of the following dose optimizing techniques: automated exposure control, MA and/or KvP adjustment based on a patient size and exam type, or iterative reconstruction. HISTORY: Pleural effusion COMPARISON: None available. FINDINGS: There are small bilateral pleural effusions. There is groundglass and septal line thickening in the left lower lobe and lingula in keeping with reexpansion pulmonary edema. No pneumothorax is seen. No suspicious nodules. No lung mass or pneumonia. Heart size is normal. No pericardial effusion. Aorta is normal in caliber. There is no axillary or supraclavicular lymphadenopathy. There are enlarged mediastinal lymph nodes including a 17 mm right lower paratracheal lymph node and a 21 mm subcarinal lymph node. Large lymph nodes are also present in the prevascular space, para-aortic space and AP window. The pulmonary artery is enlarged suggestive of pulmonary hypertension. There is a 12 mm right adrenal nodule of intermediate attenuation, indeterminate. There are no suspicious osseus lesions. IMPRESSION: 1. Small bilateral pleural effusions with expansion edema of the left lower lobe and lingula. 2. No pulmonary mass or pleural mass is seen. 3. There is mediastinal lymphadenopathy which is indeterminate. Differential includes reactive lymph nodes versus lymphoma. 4. Enlarged pulmonary artery in keeping with pulmonary hypertension. 5. Indeterminate 12 mm right adrenal nodule. Dictated by: Dictated on workstation # [id number]
[2019-07-31 08:42] LABS: BODY FLUID PH 7.3
[2019-07-31] MEDS: DOCUSATE SODIUM 100 MG (COLACE) CAP PO SCH ×3 (08:55→20:05)
[2019-07-31] MEDS: FLUTICASONE NASAL SPRAY (FLONASE) 16 GM BTL NS SCH (08:55)
[2019-07-31] MEDS: DRONEDARONE TABLET 400 MG TABLET PO SCH ×2 (08:55→20:05)
[2019-07-31] MEDS: PANTOPRAZOLE 40 MG (PROTONIX) TAB PO SCH (08:55)
[2019-07-31] MEDS: DILTIAZEM 180 MG (CARDIZEM CD) CAP PO SCH (08:55)
[2019-07-31] MEDS: GABAPENTIN 300 MG (NEURONTIN) CAP PO SCH ×2 (08:55→20:05)
[2019-07-31] MEDS: FERROUS SULF 325 MG (IRON) TAB PO SCH (08:55)
[2019-07-31] MEDS: FUROSEMIDE 40 MG (LASIX) TAB PO SCH ×2 (08:55→20:05)
[2019-07-31] MEDS: meTOprolol SUCCINATE 100 MG (TOPROL XL) TAB PO SCH (08:55)
[2019-07-31] MEDS: SUCRALFATE 1 GM (CARAFATE) TAB PO SCH ×3 (08:55→20:05)
--- NOTE | 2019-07-31 09:04 | NUR ---
PATIENT TRANSFERRED TO ROOM 415 AT THIS TIME WITH NO INCIDENT, PERSONAL BELONGINGS SENT WITH PATIENT. REPORT GIVEN TO STEFANY BOWLING, TO ASSUME CARE OF PATIENT.
--- NOTE | 2019-07-31 10:01 | Cardiology Progress Note ---
Subjective Date Seen by Provider: Jul 31, 2019 Time Seen by Provider: 09:59 Subjective/Events-last exam patient is laying down in bed, still having some shortness of breath and fatigue. No chest pain Review of Systems General: No Chills, No Night Sweats; Fatigue; No Malaise, No Appetite, No Other HEENT: No Head Aches, No Visual Changes, No Eye Pain, No Ear Pain, No Dysphasia, No Sinus Congestion, No Post Nasal Drip, No Sore Throat, No Other Pulmonary: Dyspnea; No Cough, No Pleuritic Chest Pain, No Other Cardiovascular: Edema; No: Chest Pain, Palpitations, Orthopnea, Paroxysmal Noc. Dyspnea, Lt Headedness, Other Objective-Cardiology Exam Last Set of Vital Signs Vital Signs 07/31/19 07/31/19 07/31/19 00:00 07:43 09:00 Temp 36.2 Pulse Ox 96 O2 Delivery High Flow N/C O2 Flow Rate 8.00 FiO2 50 Capillary Refill : Less Than 3 Seconds I&O Intake and Output 07/31/19 00:00 Intake Total 2500 ml Output Total 2600 ml Balance -100 ml Intake Oral 1500 ml IV Total 1000 ml Output Urine Total 2600 ml General: Alert, Oriented X3, Cooperative, Moderate Distress, Other (lethargic) HEENT: Atraumatic (Lethargic) Neck: Supple Lungs: Normal Air Movement, Other (Bilateral rhonchi) Heart: Regular Rate, Normal S1, Normal S2, Other (Systolic murmur at the left sternal border) Abdomen: Normal Bowel Sounds, Soft Extremities: Normal Pulses, Other (Significant edema) Neuro: Normal Speech, Sensation Intact, Other Psych/Mental Status: Mood NL Results Lab Laboratory Tests 07/31/19 03:00 A/P-Cardiology Admission Diagnosis Paroxysmal atrial fibrillation Acute renal failure Acute respiratory failure Hypertension Assessment/Plan Paroxysmal atrial fibrillation, had an episode of atrial fibrillation, cardioversion in April 2019, converted back to sinus rhythm on Cardizem drip, back on oral Cardizem and Multaq Anemia, had a recent D&C, significant drop in hemoglobin, patient has been refusing blood transfusion, Monitor H&H closely. Stool was positive for occult blood, continue to monitor Acute respiratory failure, had history of COPD, obesity hypoventilation s yndrome, congestive heart failure, slightly better, on Lasix, managed by primary care team Change in mental status secondary to hypoxemia History of chronic peripheral edema, recurrent cellulitis with nonhealing wounds, had an abnormal TIANNA but arterial ultrasound did not show significant obstructive disease Chronic kidney disease stage 3-4, slight improvement in renal function, continue to monitor History of CVA with left-sided paralysis, and 10 on aspirin and Eliquis History of DVT, noted on February 19, 2019 after emergency room visit for chest pain and shortness of breath. Was on oral anticoagulation, currently on hold Chronic anticoagulation for history of DVT and atrial fibrillation maintained on Eliquis 5 mg twice daily. Echocardiogram done on February 19, 2019 showing normal left ventricular size and systolic function, ejection fraction 55-65 percent, left atrial dilatation, PA pressure of 20 mmHg. Continue to monitor Hypertension, monitor blood pressure and restart home medication Hyperlipidemia, monitor lipids Diabetes mellitus, followed and managed by primary care physician Obesity, BMI 40. Depression. Clinical Quality Measures DVT/VTE Risk/Contraindication: Risk Factor Score Per Nursin RFS Level Per Nursing on Admit: 4+=Very High FARAZ ALCALA MD Jul 31, 2019 10:01 POS
--- NOTE | 2019-07-31 10:46 | Progress Note - Hospitalist ---
[facility] 07/31/19 1046: Subjective HPI/CC On Admission Date Seen by Provider: Jul 31, 2019 Time Seen by Provider: 08:17 Patient presents to ER by private conveyance with chief complaint of feeling lightheaded short of breath and oxygen sats 84% on 4 L by nasal cannula which is her baseline. She was a postop appointment with Dr. An after a D&C for part of her outpatient workup of anemia and postmenopausal endometrial bleeding. She is 2 weeks out. She is on Eliquis for atrial Fibrillation and has a history of atrial fibrillation with rapid ventricular response. She is known to Dr. Calderon. She lives at the [facility] home and is accompanied by her caregiver. She has a history of stroke and coronary disease. She denies any chest pain. She also has a history of baseline COPD but denies any wheezing. She is known to Dr. Forman, [facility].she has a past history of aspiration pneumonitis secondary to dysphasia from stroke and left sided hemiparesis. This morning she is sleeping comfortably having converted back to sinus rhythm after initiation of Cardizem IV. She is being switched to oral therapy. Subjective/Events-last exam Pt reports having some pain at the site of the fluid drainage that was performed this morning She thinks it is a little easier to breath after having the fluid removed She states she has not had a BM for 4 days She states she normally wears 3L of O2 at [facility], but the past week had to be on 4L before coming in the hospital She does report being able to eat her breakfast this morning and feeling a little better overall today Review of Systems General: No Chills HEENT: No Head Aches, No Visual Changes Pulmonary: Dyspnea (Minor, close to her baseline); No Cough Cardiovascular: No: Chest Pain, Palpitations Gastrointestinal: Constipation; No: Nausea, Vomiting, Abdominal Pain, Diarrhea Genitourinary: No Dysuria, No Hematuria Musculoskeletal: back pain (At drainage site); No: leg pain, foot pain Neurological: No: Numbness Objective Exam Vital Signs Vital Signs Date Time Temp Pulse Resp B/P (MAP) Pulse Ox O2 Delivery O2 Flow Rate FiO2 07/31/19 09:00 96 High Flow N/C 8.00 07/31/19 07:43 36.2 07/31/19 07:00 73 20 125/67 (86) 07/31/19 00:00 50 Capillary Refill : Less Than 3 Seconds General Appearance: WD/WN, Chronically ill, Mild Distress Respiratory: Chest Non Tender, Normal Breath Sounds Cardiovascular: Regular Rate, Rhythm, No Murmur, Normal Peripheral Pulses Neurologic/Psychiatric: Alert, Oriented x3, No Motor/Sensory Deficits, Normal Mood/Affect Skin: Normal Color, Warm/Dry Results/Procedures Lab Laboratory Tests 07/31/19 03:00 Patient resulted labs reviewed. Assessment/Plan Assessment and Plan Assess & Plan/Chief Complaint Assessment: A Fib w/ RVR, converted back to sinus Anemia, (+) Stool Hemoccult Bilateral Pleural Effusion (L>R) Diabetes HTN Constipation Hx aspiration pneumonia Hx DVT Hx of CVA Plan: Consult Cardiology for A fib, HTN management Consult surgery for possible colonoscopy due to anemia and positive fecal blood Consult pulmonology for pleural effusion and thoracentesis Monitor anemia Diabetes management DVT prophylaxis (hold anti coagulation due to possible GI bleed) Bowel prep/ constipation Clinical Quality Measures DVT/VTE Risk/Contraindication: Risk Factor Score Per Nursin RFS Level Per Nursing on Admit: 4+=Very High FADUMO RUSH DO 07/31/19 1827: Subjective Subjective/Events-last exam CT scan done s/p thoracentesisof 1500 cc Hemoccultpositive stools will be addressed by Dr. Herrera Hgb remains stable at 8.3 Pt with chronic debility essentially bed ridden at a snf since last seen Review of Systems General: Fatigue Pulmonary: Dyspnea (Minor, close to her baseline) Objective Exam General Appearance: No Apparent Distress, WD/WN, Anxious, Chronically ill, O bese Respiratory: Crackles, Decreased Breath Sounds Cardiovascular: Regular Rate, Rhythm Extremity: Pedal Edema Neurologic/Psychiatric: Alert, Oriented x3 Assessment/Plan Assessment and Plan Assess & Plan/Chief Complaint Assessment: Pleural effusion s/p thoracentesis AF w/RVR Hemoccult + stools Anemia Plan: Bedridden status detention Accumulation of additional issues Diagnosis/Problems Diagnosis/Problems (1) Atrial fibrillation with rapid ventricular response Status: Acute (2) Refusal of blood transfusions as patient is [employer]ism (3) Normocytic anemia Status: Chronic (4) Respiratory failure Status: Acute (5) Pneumonia Status: Acute (6) Morbid obesity Status: Chronic (7) Leukocytosis Status: Acute Supervisory-Addendum Brief Verification & Attestation Participated in pt care: history, MDM, physical Personally performed: exam, history, MDM, supervision of care Care discussed with: Medical Student Procedures: n/a Results interpretation: Verified all documentation Verification and Attestation of Medical Student E/M Service A medical student performed and documented this service in my presence. I reviewed and verified all information documented by the medical student and made modifications to such information, when appropriate. I personally performed the physical exam and medical decision making. Fadumo Rush, Jul 31, 2019,18:28 TRAN [facility] Jul 31, 2019 10:46 FADUMO MALLOY DO Jul 31, 2019 18:28 POS
--- NOTE | 2019-07-31 11:44 | Consultation - Surgery ---
[facility] 07/31/19 1144: History of Present Illness History of Present Illness Patient Consulted On(nik/time) 07/31/19 11:38 Date Seen by Provider: Jul 31, 2019 Time Seen by Provider: 11:38 Reason for Visit: Occult blood in stool History of Present Illness Maren nobles is a 68 y/o female that has multiple complicated medical issues. General surgery was consulted due to the finding of occult blood in the stool. The patient has noticed blood in her stool for the last 4 years and says that it is non painful. She stated that she even has it on toilet paper when wiping. She has a hx of hemorrhoids and states she had a colonoscopy this past May. She cannot remember the results of the colonoscopy procedure. She does not know if anything makes it better or worse. She has not had a bowel movement for four days and she states she usually has one everyday or multiple times a day. [facility] and is not sure if she has taken any since being admitted to the hospital. She does have mild RLQ abdominal pain at this moment and no other associated pains at this time. Allergies and Home Medications Allergies Coded Allergies: sulfamethoxazole (Verified Allergy, Unknown, 10/13/17) trimethoprim (Verified Allergy, Unknown, 10/13/17) Home Medications Acetaminophen 500 Mg Tablet, 1,000 MG PO Q6H PRN for PAIN-MILD OR TEMPATURE, (Reported) Albuterol Sulfate 2.5 Mg/3 Ml Vial.neb, 2.5 MG NEB Q4H PRN for SHORTNESS OF BREATH, (Reported) Amlodipine Besylate 5 Mg Tablet, 5 MG PO DAILY, (Reported) HOLD IF SBP<110 Apixaban 5 Mg Tablet, 5 MG PO BID, (Reported) Aspirin 81 Mg Tablet.dr, 81 MG PO BID, (Reported) Atorvastatin Calcium 40 Mg Tablet, 40 MG PO HS, (Reported) B Complex with Vitamin C 1 Each Tablet, 1 TAB PO DAILY, (Reported) Bethanechol Chloride 10 Mg Tablet, 10 MG PO BID, (Reported) Bisacodyl 10 Mg Supp.rect, 10 MG RC DAILY PRN for CONSTIPATION-4TH LINE, (Reported) Budesonide/Formoterol Fumarate 10.2 Gm Hfa.aer.ad, 2 PUFF IH BID, (Reported) Cholecalciferol 5,000 Unit Capsule, 5,000 UNIT PO HS, (Reported) Cinnamon Bark 500 Mg Capsule, 1,000 MG PO DAILY, (Reported) TAKES 2 (500 MG) CAPSULES Citalopram Hydrobromide 10 Mg Tablet, 10 MG PO DAILY, (Reported) Cranberry Extract 500 Mg Tablet, 1,000 MG PO DAILY, (Reported) Diltiazem HCl 180 Mg Tab.er.24h, 180 MG PO DAILY, (Reported) Docusate Sodium 100 Mg Capsule, 100 MG PO BID, (Reported) Dronedarone HCl 400 Mg Tablet, 400 MG PO BID, (Reported) Dulaglutide 1.5 Mg/0.5 Ml Pen.injctr, 1.5 MG SQ We, (Reported) Empagliflozin 10 Mg Tablet, 10 MG PO DAILY, (Reported) Ferrous Sulfate 325 Mg Tablet, 325 MG PO DAILY, (Reported) Fluticasone Propionate 16 Gm [place].susp, 2 SPRAYS NS DAILY, (Reported) Furosemide 40 Mg Tablet, 40 MG PO BID, (Reported) Gabapentin 300 Mg Capsule, 300 MG PO BID, (Reported) Gluc Angulo/Chondro Angulo A/Vit C/Mn 1 Each Tablet, 2 TAB PO DAILY, (Reported) Guaifenesin/Dextromethorphan 473 Ml Syrup, 10 ML PO Q4H PRN for COUGH, (Reported) Insulin Detemir 100 Unit/1 Ml Insuln.pen, 35 UNIT SQ HS, (Reported) Insulin Detemir 100 Unit/1 Ml Insuln.pen, 40 UNIT SQ DAILY, (Reported) Lidocaine 1 Each Adh..patch, 1 PATCH TD DAILY, (Reported) 4% APPLY TO UPPER RIGHT THIGH Magnesium Hydroxide 400 Mg/5 Ml Oral.susp, 30 ML PO DAILY PRN for CONSTIPATION- 7TH LINE, (Reported) Megestrol Acetate 40 Mg Tablet, 80 MG PO DAILY, (Reported) TAKES 2 (40MG) TABLETS Melatonin 3 Mg Tablet, 3 MG PO HS, (Reported) Metoprolol Succinate 100 Mg Tab.er.24h, 100 MG PO DAILY, (Reported) HOLD FOR SYSTOLIC BP <100 AND HEART RATE <60 Miconazole Nitrate 10 Gm Powder, TOP BID, (Reported) APPLY TO GROIN AND UNDER BREASTS Multivits W-Fe,Other Min/Lut 1 Each Tablet, 1 TAB PO TID, (Reported) Nitrofurantoin Monohyd/M-Cryst 100 Mg Capsule, 100 MG PO BID, (Reported) 14 DAY THERAPY END DATE 08-01-19 Motley-3/Dha/Epa/Fish Oil 1 Each Capsule, 2 CAP PO DAILY, (Reported) Oxycodone Hcl 5 Mg Tab, 5 MG PO Q4H PRN for PAIN-SEVERE (8-10), (Reported) Pantoprazole Sodium 40 Mg Tablet.dr, 40 MG PO 1400, (Reported) Phenyleph/Mineral Oil/Petrolat 57 Gm Oint.appl, RC Q12H PRN for HEMORRHOIDS, (Reported) Sodium Chloride 104 Ml [place], 2 SPRAYS NS Q4H PRN for DRY NOSE, (Reported) Sucralfate 1 Gm Tablet, 1 GM PO QID, (Reported) Valerian Root 500 Mg Capsule, 530 MG PO DAILY PRN for ANXIETY, (Reported) [Blood Sugar 360] , 1 CAP PO UD PRN for BLOOD SUGAR MAINTENANCE, (Reported) [digize oil] , TOP UD PRN for DIGESTIVE DIFFICULTIES, (Reported) MAY BE USED TOPICALLY OR DABBED INSIDE MOUTH ON CHEEK, KEEP AT BEDSIDE AND SELF ADMINISTER FOR DIGESTIVE DIFFICULTIES. Past Zeikaos-Bmtvrn-Fmdguf Hx Patient Social History Alcohol Use: Denies Use Recreational Drug Use: No Former Smoker, Quit: Sep 13, 1999 Type Used: Cigarettes 2nd Hand Smoke Exposure: No Recent Foreign Travel: No Contact w/Someone Who Travel: No Recent Infectious Disease Expo: No Recent Hopitalizations: No Immunizations Up To Date Tetanus Booster (TDap): Unknown Seasonal Allergies Seasonal Allergies: Yes Surgeries History of Surgeries: Yes (SINUS SX, R TKR, FOOT SX, EYE SOCKET RECONSTRUCTION) Surgeries: Joint Replacement, Nose, Orthopedic Respiratory History of Respiratory Disorde: Yes (03/2017-REPSIRATORY ARREST DUE TO ASPIRATION WITH ASPIRATION PNEUMONIA, O2) Respiratory Disorders: Pneumonia, Sleep Apnea, COPD Cardiovascular History of Cardiac Disorders: Yes Cardiac Disorders: Atrial Fibrillation, Chronic Edema/Swelling, Coronary Artery Disease, High Cholesterol, Hypertension Neurological History of Neurological Disord: Yes (CVA WITH LEFT SIDE FLACCID PARALYSIS, DYSPHAGIA AND DYSPHASIA) Neurological Disorders: Stroke 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 System : No Hx 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 Disorders: No 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 Genitourinary History of Genitourinary Disor: Yes (OVERACTIVE BLADDER) Genitourinary Disorders: Kidney Stones, Renal Failure Gastrointestinal History of Gastrointestinal Di: Yes (DYSPHAGIA) Gastrointestinal Disorders: Gastroesophageal Reflux, Chronic Constipation, Hemorrhoids, Ulcer Musculoskeletal History of Musculoskeletal Dis: Yes (paralysis left side) Musculoskeletal Disorders: Arthritis Endocrine History of Endocrine Disorders: Yes Endocrine Disorders: Diabetes, Insulin dep HEENT History of HEENT Disorders: Yes (Nasal SX; DYSPHAGIA; CHRONIC RHINITIS) HEENT Disorders: Dysphagia Loss of Vision: Denies Hearing Impairment: Denies Cancer History of Cancer: No Psychosocial History of Psychiatric Problem: Yes Behavioral Health Disorders: Sleep Difficulties, Anxiety, Depression Integumentary History of Skin or Integumenta: No Blood Transfusions History of Blood Disorders: Yes (anemia) Adverse Reaction to a Blood Tr: No (No blood transfusions d/t JW) Family Medical History Significant Family History: CVA, Diabetes Family Medial History: Completed stroke 19 FATHER G8 BROTHER Diabetes mellitus G8 BROTHER Hypertension 19 FATHER 19 MOTHER Review of Systems-General Constitutional: no symptoms reported EENTM: no symptoms reported Respiratory: No hemoptysis, No phlegm; short of breath, other (pain while breathing. Patient had pleural effusions drained. ) Cardiovascular: chest pain Gastrointestinal: abdominal pain (RLQ), constipation Genitourinary: no symptoms reported Musculoskeletal: other (Leg pain ) Skin: no symptoms reported Psychiatric/Neurological: No Symptoms Reported Physical Exam-General Problems Physical Exam Vital Signs Vital Signs - First Documented 07/28/19 07/28/19 10:06 16:21 Temp 37.4 Pulse 140 Resp 27 B/P (MAP) 165/83 (110) Pulse Ox 93 O2 Delivery OxyMask O2 Flow Rate 8.00 FiO2 55 Capillary Refill : Less Than 3 Seconds General Appearance: no apparent distress, obese Eyes: Bilateral Eye PERRL, Bilateral Eye EOMI HEENT: PERRL/EOMI Neck: non-tender, supple Respiratory: chest non-tender, no respiratory distress, no accessory muscle use, other (Short breaths without full inspiration ) Peripheral Pulses: 1+ Dorsalis Pedis (R), 1+ Left Dors-Pedis (L); 2+ Radial Pulses (R), 2+ Radial Pulses (L) Gastrointestinal: normal bowel sounds, distended, tenderness (RLQ) Extremities: calf tenderness, pedal edema Neurologic/Psychiatric: alert, normal mood/affect, oriented x 3 Skin: normal color, warm/dry Lymphatic: no adenopathy Data Review Labs Laboratory Tests 07/30/19 12:57: Glucometer 164H 07/30/19 16:58: Glucometer 170H 07/31/19 03:00: White Blood Count 7.1, Red Blood Count 3.38L, Hemoglobin 8.3L, Hematocrit 28L, Mean Corpuscular Volume 82, Mean Corpuscular Hemoglobin 25, Mean Corpuscular Hemoglobin Concent 30L, Red Cell Distribution Width 17.1H, Platelet Count 340, Mean Platelet Volume 8.7, Neutrophils (%) (Auto) 72, Lymphocytes (%) (Auto) 17, Monocytes (%) (Auto) 8, Eosinophils (%) (Auto) 2, Basophils (%) (Auto) 1, Neutrophils # (Auto) 5.1, Lymphocytes # (Auto) 1.2, Monocytes # (Auto) 0.6, Eosinophils # (Auto) 0.2, Basophils # (Auto) 0.0, Sodium Level 139, Potassium Level 3.5L, Chloride Level 109H, Carbon Dioxide Level 21, Anion Gap 9, Blood Urea Nitrogen 15, Creatinine 1.23, Estimat Glomerular Filtration Rate 43, BUN/Creatinine Ratio 12, Glucose Level 131H, Calcium Level 8.5, Phosphorus Level 3.1, Magnesium Level 1.9, Total Bilirubin 0.2, Direct Bilirubin 0.1, Indirect Bilirubin 0.1, Aspartate Amino Transf (AST/SGOT) 15, Alanine Aminotransferase (ALT/SGPT) 24, Alkaline Phosphatase 90, Total Protein 6.4, Albumin 2.8L 07/31/19 06:10: Body Fluid Source THORACENTESIS, Body Fluid Color YELLOW, Body Fluid Appearance SLT CLDY, Body Fluid pH 7.3, Body Fluid WBC 16, Body Fluid RBC 1950, Body Fluid Polynuclear WBCs 54, Body Fluid Mononuclear WBCs 2, Body Fluid Lymphocytes 44, Body Fluid Other Cells , Body Fluid Glucose 132, Body Fluid Total Protein 3.7, B harsha Fluid Lactate Dehydrogenase 102 07/31/19 11:11: Glucometer 200H Microbiology 07/28/19 MRSA Screen - Final, Complete Assessment/Plan Assessment/Plan Assessment/Plan A Fib w/ RVR, Anemia, (+) Stool Hemoccult Bilateral Pleural Effusion (L>R) Diabetes HTN Constipation Hx aspiration pneumonia Hx DVT Hx of CVA - Consider anoscopy - Consider repeat colonoscopy. - Consider preparation H, bulk laxative and sitz bath - Monitor I/O - Continue to hold DVT medicinal prophylaxis - Continue medical management Clinical Quality Measures DVT/VTE Risk/Contraindication: Risk Factor Score Per Nursin RFS Level Per Nursing on Admit: 4+=Very High ZAID HARDIN DO 07/31/192038: History of Present Illness History of Present Illness History of Present Illness consult from dr yang for occult+ stool possible endoscopy. patient is a 68 year old female with anemia and having blood in the stools on toilet paper when wiping. She has had some breathing issues as well requiring thoracentesis. Typically on anticoagulation. Having rlq abdominal pain. Mild. No radiation. Nothing makes worse or better. has hx of stroke. Allergies and Home Medications Allergies Coded Allergies: sulfamethoxazole (Verified Allergy, Unknown, 10/13/17) trimethoprim (Verified Allergy, Unknown, 10/13/17) Home Medications Acetaminophen 500 Mg Tablet, 1,000 MG PO Q6H PRN for PAIN-MILD OR TEMPATURE, (Reported) Albuterol Sulfate 2.5 Mg/3 Ml Vial.neb, 2.5 MG NEB Q4H PRN for SHORTNESS OF BREATH, (Reported) Amlodipine Besylate 5 Mg Tablet, 5 MG PO DAILY, (Reported) HOLD IF SBP<110 Apixaban 5 Mg Tablet, 5 MG PO BID, (Reported) Aspirin 81 Mg Tablet.dr, 81 MG PO BID, (Reported) Atorvastatin Calcium 40 Mg Tablet, 40 MG PO HS, (Reported) B Complex with Vitamin C 1 Each Tablet, 1 TAB PO DAILY, (Reported) Bethanechol Chloride 10 Mg Tablet, 10 MG PO BID, (Reported) Bisacodyl 10 Mg Supp.rect, 10 MG RC DAILY PRN for CONSTIPATION-4TH LINE, (Reported) Budesonide/Formoterol Fumarate 10.2 Gm Hfa.aer.ad, 2 PUFF IH BID, (Reported) Cholecalciferol 5,000 Unit Capsule, 5,000 UNIT PO HS, (Reported) Cinnamon Bark 500 Mg Capsule, 1,000 MG PO DAILY, (Reported) TAKES 2 (500 MG) CAPSULES Citalopram Hydrobromide 10 Mg Tablet, 10 MG PO DAILY, (Reported) Cranberry Extract 500 Mg Tablet, 1,000 MG PO DAILY, (Reported) Diltiazem HCl 180 Mg Tab.er.24h, 180 MG PO DAILY, (Reported) Docusate Sodium 100 Mg Capsule, 100 MG PO BID, (Reported) Dronedarone HCl 400 Mg Tablet, 400 MG PO BID, (Reported) Dulaglutide 1.5 Mg/0.5 Ml Pen.injctr, 1.5 MG SQ We, (Reported) Empagliflozin 10 Mg Tablet, 10 MG PO DAILY, (Reported) Ferrous Sulfate 325 Mg Tablet, 325 MG PO DAILY, (Reported) Fluticasone Propionate 16 Gm [place].susp, 2 SPRAYS NS DAILY, (Reported) Furosemide 40 Mg Tablet, 40 MG PO BID, (Reported) Gabapentin 300 Mg Capsule, 300 MG PO BID, (Reported) Gluc Angulo/Chondro Angulo A/Vit C/Mn 1 Each Tablet, 2 TAB PO DAILY, (Reported) Guaifenesin/Dextromethorphan 473 Ml Syrup, 10 ML PO Q4H PRN for COUGH, (Reported) Insulin Detemir 100 Unit/1 Ml Insuln.pen, 35 UNIT SQ HS, (Reported) Insulin Detemir 100 Unit/1 Ml Insuln.pen, 40 UNIT SQ DAILY, (Reported) Lidocaine 1 Each Adh..patch, 1 PATCH TD DAILY, (Reported) 4% APPLY TO UPPER RIGHT THIGH Magnesium Hydroxide 400 Mg/5 Ml Oral.susp, 30 ML PO DAILY PRN for CONSTIPATION- 7TH LINE, (Reported) Megestrol Acetate 40 Mg Tablet, 80 MG PO DAILY, (Reported) TAKES 2 (40MG) TABLETS Melatonin 3 Mg Tablet, 3 MG PO HS, (Reported) Metoprolol Succinate 100 Mg Tab.er.24h, 100 MG PO DAILY, (Reported) HOLD FOR SYSTOLIC BP <100 AND HEART RATE <60 Miconazole Nitrate 10 Gm Powder, TOP BID, (Reported) APPLY TO GROIN AND UNDER BREASTS Multivits W-Fe,Other Min/Lut 1 Each Tablet, 1 TAB PO TID, (Reported) Nitrofurantoin Monohyd/M-Cryst 100 Mg Capsule, 100 MG PO BID, (Reported) 14 DAY THERAPY END DATE 08-01-19 Motley-3/Dha/Epa/Fish Oil 1 Each Capsule, 2 CAP PO DAILY, (Reported) Oxycodone Hcl 5 Mg Tab, 5 MG PO Q4H PRN for PAIN-SEVERE (8-10), (Reported) Pantoprazole Sodium 40 Mg Tablet.dr, 40 MG PO 1400, (Reported) Phenyleph/Mineral Oil/Petrolat 57 Gm Oint.appl, RC Q12H PRN for HEMORRHOIDS, (Reported) Sodium Chloride 104 Ml [place], 2 SPRAYS NS Q4H PRN for DRY NOSE, (Reported) Sucralfate 1 Gm Tablet, 1 GM PO QID, (Reported) Valerian Root 500 Mg Capsule, 530 MG PO DAILY PRN for ANXIETY, (Reported) [Blood Sugar 360] , 1 CAP PO UD PRN for BLOOD SUGAR MAINTENANCE, (Reported) [digize oil] , TOP UD PRN for DIGESTIVE DIFFICULTIES, (Reported) MAY BE USED TOPICALLY OR DABBED INSIDE MOUTH ON CHEEK, KEEP AT BEDSIDE AND SELF ADMINISTER FOR DIGESTIVE DIFFICULTIES. 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 Genitourinary Genitourinary Disorders: Kidney Stones, Renal Failure Gastrointestinal Gastrointestinal Disorders: Gastroesophageal Reflux, Chronic Constipation, Hemorrhoids, Ulcer Musculoskeletal Musculoskeletal Disorders: Arthritis Endocrine Endocrine Disorders: Diabetes, Insulin dep HEENT HEENT Disorders: Dysphagia Psychosocial Behavioral Health Disorders: Sleep Difficulties, Anxiety, Depression Family Medical History Significant Family History: CVA, Diabetes Family Medial History: Completed stroke 19 FATHER G8 BROTHER Diabetes mellitus G8 BROTHER Hypertension 19 FATHER 19 MOTHER Review of Systems-General Constitutional: no symptoms reported EENTM: no symptoms reported Respiratory: short of breath, other (pain while breathing. Patient had pleural effusions drained. ) Cardiovascular: chest pain Gastrointestinal: abdominal pain (RLQ), constipation Genitourinary: no symptoms reported Musculoskeletal: other (Leg pain ) Skin: no symptoms reported Psychiatric/Neurological: No Symptoms Reported Physical Exam-General Problems Physical Exam General Appearance: no apparent distress, obese HEENT: PERRL/EOMI Respiratory: chest non-tender, no respiratory distress, no accessory muscle use, other (Short breath min) Cardiovascular: irregularly irregular Gastrointestinal: soft, tenderness (rlq minimal) Rectal: deferred Back: no CVA tenderness Extremities: pedal edema Neurologic/Psychiatric: alert, normal mood/affect, oriented x 3 Skin: normal color Assessment/Plan Assessment/Plan Assessment/Plan A Fib w/ RVR, Anemia, (+) Stool Hemoccult Bilateral Pleural Effusion (L>R) Diabetes HTN Constipation Hx aspiration pneumonia Hx DVT Hx of CVA patient with anemia and occult positive stool we discussed risks and benefits of egd/colonoscopy all other indicated procedures to re-evlalute. she understands and wishes to proceed go lyltely prep clears and npo after midnight consent and plan on endoscopy tomorrow Supervisory-Addendum Brief Verification & Attestation Participated in pt care: history, MDM, physical Personally performed: exam, history, MDM, supervision of care Care discussed with: Medical Student Procedures: n/a Results interpretation: Verified all documentation Verification and Attestation of Medical Student E/M Service A medical student performed and documented this service in my presence. I reviewed and verified all information documented by the medical student and made modifications to such information, when appropriate. I personally performed the physical exam and medical decision making. Zaid Hardin, Jul 31, 2019,20:45 MAXIM [facility] Jul 31, 2019 11:44 ZAID PLASCENCIA DO Jul 31, 2019 20:39 POS
[2019-07-31] MEDS: LACTULOSE SYRUP 10GM/15ML (ENULOSE) 30ML UDC PO SCH ×2 (12:05→21:49)
[2019-07-31] MEDS: SENNA W/DOCUSATE (SENOKOT S) TABLET PO SCH ×2 (12:06→20:05)
[2019-07-31] MEDS: POLYETHYLENE GLYCOL 17 GM (MIRALAX) PACK PO SCH ×2 (12:06→20:05)
[2019-07-31] MEDS ORDERED: GOLYTELY POWDER 4000 ML BTL PO NR (14:15)
[2019-07-31] MEDS ORDERED: RT-ALBUTEROL/IPRATROPIUM 3 ML (DUONEB) VIAL INH PRN (16:00)
[2019-07-31] MEDS: MELATONIN 3 MG TABLET PO SCH (20:05)
[2019-08-01] MEDS: RT-ALBUTEROL/IPRATROPIUM 3 ML (DUONEB) VIAL INH SCH ×6 (02:00→22:41)
[2019-08-01 04:40] VITALS: BP 141/67
[2019-08-01] MEDS: inSUlin ASPART (NovoLOG) 1 UNIT/0.01 ML (CHARGE PER UNIT) SC SCH ×4 (05:59→21:00)
[2019-08-01 06:36] LABS: BASOPHILS % (AUTO) 1 % (0-10); EOSINOPHILS # (AUTO) 0.3 10^3/uL (0.0-0.3); EOSINOPHILS % (AUTO) 4 % (0-10); HEMATOCRIT 28 % (35-52); HEMOGLOBIN 8.4 G/DL (11.5-16.0); LYMPHOCYTES # (AUTO) 1.1 X 10^3 (1.0-4.0); LYMPHOCYTES % (AUTO) 14 % (12-44); MEAN CORPUSCULAR HEMOGLOBIN 25 PG (25-34); MEAN CORPUSCULAR HGB CONC 30 G/DL (32-36); MEAN CORPUSCULAR VOLUME 83 FL (80-99); MEAN PLATELET VOLUME 9.2 FL (7.4-10.4); MONOCYTES # (AUTO) 0.6 X 10^3 (0.0-1.0); MONOCYTES % (AUTO) 7 % (0-12); NEUTROPHILS # (AUTO) 6.1 X 10^3 (1.8-7.8); NEUTROPHILS % (AUTO) 75 % (42-75); PLATELET COUNT 345 10^3/uL (130-400); RED CELL DISTRIBUTION WIDTH 16.9 % (10.0-14.5); WHITE BLOOD COUNT 8.2 10^3/uL (4.3-11.0)
[2019-08-01 06:55] LABS: CALCIUM 8.7 MG/DL (8.5-10.1); CREATININE SERUM 1.14 MG/DL (0.60-1.30); MAGNESIUM 1.8 MG/DL (1.6-2.4); PHOSPHORUS 3.3 MG/DL (2.3-4.7); POTASSIUM 3.3 MMOL/L (3.6-5.0)
--- NOTE | 2019-08-01 07:29 | Pulmonary Progress Note ---
GINACALVIN N MED STUDENT 08/01/19 0729: Subjective Date Seen by a Provider: Aug 01, 2019 Time Seen by a Provider: 08:00 Subjective/Events-last exam Patient reports that she is feeling well. She states that she has some shortness of breath but denies cough, fever, and chills. Sepsis Event Evaluation Height, Weight, BMI Height: 5'6.00" Weight: 118lbs. 0.5oz. 53.719714ox; 40.00 BMI Method:Estimated Exam Exam Vital Signs Date Time Temp Pulse Resp B/P (MAP) Pulse Ox O2 Delivery O2 Flow Rate FiO2 08/01/19 04:40 36.9 79 21 141/67 (91) 94 High Flow N/C 6.00 08/01/19 02:00 70 22 97 50.00 08/01/19 01:00 71 07/31/19 23:45 36.8 78 18 139/66 (90) 95 High Flow N/C 6.00 07/31/19 20:05 High Flow N/C 6.00 07/31/19 20:00 37.4 83 18 142/65 (90) 94 High Flow N/C 8.00 07/31/19 19:00 83 07/31/19 18:44 90 Nasal Cannula 3.00 07/31/19 16:00 37.5 72 18 143/67 (92) 92 High Flow N/C 8.00 07/31/19 14:35 95 Nasal Cannula 5.00 07/31/19 13:15 36.8 81 93 40 07/31/19 13:00 88 07/31/19 12:00 37.0 80 18 137/71 (93) 97 High Flow N/C 8.00 07/31/19 10:41 93 Nasal Cannula 5.00 07/31/19 09:30 36.8 80 20 144/79 (100) 99 High Flow N/C 8.00 07/31/19 09:00 96 High Flow N/C 8.00 07/31/19 07:43 36.2 07/31/19 07:41 96 High Flow N/C 8.00 I & O 08/01/19 07:00 Intake Total 2260 ml Output Total 3000 ml Balance -740 ml Height & Weight Height: 5'6.00" Weight: 118lbs. 0.5oz. 53.301009lf; 40.00 BMI Method:Estimated General Appearance: No Apparent Distress, WD/WN, Chronically ill, Obese HEENT: PERRL/EOMI Neck: Other (no JVD or adenopathy) Respiratory: Crackles, Decreased Breath Sounds Cardiovascular: Regular Rate, Rhythm Capillary Refill: Less Than 3 Seconds Peripheral Pulses: 1+ Dorsalis Pedis (R), 1+ Left Dors-Pedis (L); 2+ Radial Pulses (R), 2+ Radial Pulses (L) Gastrointestinal: soft, tenderness (rlq minimal) Extremity: Pedal Edema (L>R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: Alert, Oriented x3, Motor Weakness (Left upper and lower extremities flacid due to previous CVA) Skin: Normal Color, Warm/Dry Lymphatic: No Adenopathy Results Lab Laboratory Tests 07/31/19 03:00 08/01/19 06:[address] 07/31/19 post thora Impression 1. Small bilateral pleural effusions with expansion edema of the left lower lobe and lingula. 2. No pulmonary mass or pleural mass is seen. 3. There is mediastinal lymphadenopathy which is indeterminate. Differential includes reactive lymph nodes versus lymphoma. 4. Enlarged pulmonary artery in keeping with pulmonary hypertension. 5. Indeterminate 12 mm right adrenal nodule. 07/31/19 Chest Xray post thora 1. Decreased size of now small left pleural effusion. No pneumothorax. Procedures Thoracentesis performed 07/31/19 1500cc fluid WBC: 16 RBC: 1950 LDH: 102 Protein: 3.7 pH 7.3 Assessment/Plan Assessment/Plan Left large pleural effusion r/o cancer - Doubt from CHF since it is left sided -S/P thoracentesis 07/31/19 -exudative: serum total protein 6.4 pleural total protein 3.7 -CT shows mediastinal lymphadenopathy which is indeterminate. -reactive lymph nodes versus lymphoma -Furosemide 40mg BID -Echo 07/31/19 LVEF 55-65% Oxygen dependent COPD -quit smoking in 1999 -13pk/yr hx of tobacco use Afib with RVR - Now Converted to sinus -Diltiazem 180mg daily -Dronedarone 400mg BID DM type II -Jardiance 10mg -Levemir 30U HS -Trulia Anemia -Postmenopausal bleeding -s/p D&C with Dr. An -Positive fecal occult -surgery consulted -considering anoscopy/colonoscopy -Pt. refuses transfusion due to anabaptism beliefs HARSHIL PATEL DO 08/01/19 1527: Subjective Subjective/Events-last exam PT is doing better. SOB is stable Exam Exam General Appearance: No Apparent Distress, WD/WN, Chronically ill, Obese HEENT: PERRL/EOMI Respiratory: Crackles, Decreased Breath Sounds Cardiovascular: Regular Rate, Rhythm Capillary Refill: Less Than 3 Seconds Gastrointestinal: tenderness (rlq minimal) Extremity: Pedal Edema (L>R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: Alert, Oriented x3 Skin: Normal Color, Warm/Dry Lymphatic: No Adenopathy Assessment/Plan Assessment/Plan Left large pleural effusion r/o cancer - Doubt from CHF since it is left sided -S/P thoracentesis 07/31/19. Cytology pending -exudative: serum total protein 6.4 pleural total protein 3.7 -CT shows mediastinal lymphadenopathy which is indeterminate. -reactive lymph nodes versus lymphoma -Furosemide 40mg BID -Echo 07/31/19 LVEF 55-65% Oxygen dependent COPD -quit smoking in 1999 -13pk/yr hx of tobacco use Afib with RVR - Now Converted to sinus -Diltiazem 180mg daily -Dronedarone 400mg BID DM type II -Jardiance 10mg -Levemir 30U HS -Trulia Anemia -Postmenopausal bleeding -s/p D&C with Dr. An -Positive fecal occult -surgery consulted -considering anoscopy/colonoscopy -Pt. refuses transfusion due to anabaptism beliefs Supervisory-Addendum Brief Verification & Attestation Participated in pt care: history Personally performed: exam, history Care discussed with: Medical Student Procedures: n/a Verification and Attestation of Medical Student E/M Service A medical student performed and documented this service in my presence. I reviewed and verified all information documented by the medical student and made modifications to such information, when appropriate. I personally performed the physical exam and medical decision making. Harshil Patel, Aug 01, 2019,15:27 CALVIN FUENTES MED STUDENT Aug 01, 2019 07:29 HARSHIL HOLM DO Aug 01, 2019 15:27 POS
[2019-08-01] MEDS: ADVAIR HFA 115/21 MCG INHALER 8 GM IH SCH ×2 (07:58→20:24)
[2019-08-01 08:00] VITALS: BP 147/75
--- NOTE | 2019-08-01 08:14 | Cardiology Progress Note ---
Subjective Date Seen by Provider: Aug 01, 2019 Time Seen by Provider: 08:11 Subjective/Events-last exam Patient sitting up in bed, denies any chest pain or dyspnea. Review of Systems General: No Chills, No Night Sweats; Fatigue; No Malaise, No Appetite, No Other HEENT: No Head Aches, No Visual Changes, No Eye Pain, No Ear Pain, No Dysphasia, No Sinus Congestion, No Post Nasal Drip, No Sore Throat, No Other Pulmonary: Dyspnea; No Cough, No Pleuritic Chest Pain, No Other Cardiovascular: Edema; No: Chest Pain, Palpitations, Orthopnea, Paroxysmal Noc. Dyspnea, Lt Headedness, Other Objective-Cardiology Exam Last Set of Vital Signs Vital Signs 07/31/19 08/01/19 08/01/19 08/01/19 13:15 12:00 13:00 15:27 Temp 37.4 Pulse 88 Resp 18 B/P (MAP) 138/67 (90) Pulse Ox 94 O2 Delivery Nasal Cannula O2 Flow Rate 3.00 FiO2 40 Capillary Refill : Less Than 3 Seconds I&O Intake and Output 08/01/19 00:00 Intake Total 2260 ml Output Total 3600 ml Balance -1340 ml Intake Oral 2260 ml Output Urine Total 3600 ml # Bowel Movements 2 General: Alert, Oriented X3, Cooperative, No Acute Distress HEENT: Atraumatic Neck: Supple Lungs: Normal Air Movement, Other (Bilateral rhonchi) Heart: Regular Rate, Normal S1, Normal S2, Other (Systolic murmur at the left sternal border) Abdomen: Normal Bowel Sounds, Soft Extremities: No Edema (+1 edema BLE), Normal Pulses Neuro: Normal Speech, Sensation Intact, Other Psych/Mental Status: Mood NL Results Lab Laboratory Tests 08/01/19 06:00 A/P-Cardiology Admission Diagnosis Paroxysmal atrial fibrillation Acute renal failure Acute respiratory failure Hypertension Assessment/Plan Paroxysmal atrial fibrillation, had an episode of atrial fibrillation, s/p cardioversion in April 2019, converted back to sinus rhythm on Cardizem drip, back on oral Cardizem and Multaq. Unable to tolerate OAC at this time secondary to anemia. Anemia, had a recent D&C, significant drop in hemoglobin, patient has been refusing blood transfusion, Monitor H&H closely. Stool was positive for occult blood, continue to monitor Acute respiratory failure, had history of COPD, obesity hypoventilation syndrome, congestive heart failure, slightly better, on Lasix, managed by primary care team Pleural effusion, s/p thoracentesis. Change in mental status secondary to hypoxemia History of chronic peripheral edema, recurrent cellulitis with nonhealing wounds, had an abnormal TIANNA but arterial ultrasound did not show significant obstructive disease Chronic kidney disease stage 3-4, slight improvement in renal function, continue to monitor History of CVA with left-sided paralysis,Eliquis currently on hold. History of DVT, noted on February 19, 2019 after emergency room visit for chest pain and shortness of breath. Was on oral anticoagulation, currently on hold Echocardiogram done on February 19, 2019 showing normal left ventricular size and systolic function, ejection fraction 55-65 percent, left atrial dilatation, PA pressure of 20 mmHg. Continue to monitor Hypertension, controlled, continue to monitor. Hyperlipidemia, monitor lipids Diabetes mellitus, followed and managed by primary care physician Obesity, BMI 40. Depression. Patient was seen and evaluated with Gris, examination performed, management plan was discussed, agree with the current scribed note, I made few changes to the note using Italic font Patient is laying down in bed, no new complaint, still having fatigue and loss of energy Breathing is slightly better Cannot tolerate oral anticoagulation due to to anemia Continue to monitor blood pressure Clinical Quality Measures DVT/VTE Risk/Contraindication: Risk Factor Score Per Nursin RFS Level Per Nursing on Admit: 4+=Very High GRIS WRIGHT Aug 01, 2019 08:14 FARAZ ARELLANO MD Aug 01, 2019 16:01 POS
--- NOTE | 2019-08-01 08:38 | Diagnostic Imaging Report ---
INDICATION: Dyspnea. Compared 07/31/2019 FINDINGS: There is progressive left lower lobe infiltrate now obscuring the left hemidiaphragm. The right lung, however, clear on follow-up. IMPRESSION: Mixed changes of the left upper lobe and right lung have essentially cleared on follow-up, however, left lower lobe consolidation has progressed. Dictated by: Dictated on workstation # [id number]
[2019-08-01] MEDS: LACTULOSE SYRUP 10GM/15ML (ENULOSE) 30ML UDC PO SCH ×2 (09:00→20:33)
[2019-08-01] MEDS: SENNA W/DOCUSATE (SENOKOT S) TABLET PO SCH ×2 (09:00→20:33)
[2019-08-01] MEDS: FERROUS SULF 325 MG (IRON) TAB PO SCH (09:00)
[2019-08-01] MEDS: GABAPENTIN 300 MG (NEURONTIN) CAP PO SCH ×2 (09:00→20:32)
[2019-08-01] MEDS: FUROSEMIDE 40 MG (LASIX) TAB PO SCH ×2 (09:00→20:32)
[2019-08-01] MEDS: DOCUSATE SODIUM 100 MG (COLACE) CAP PO SCH ×2 (09:00→20:33)
[2019-08-01] MEDS: meTOprolol SUCCINATE 100 MG (TOPROL XL) TAB PO SCH (09:00)
[2019-08-01] MEDS: FLUTICASONE NASAL SPRAY (FLONASE) 16 GM BTL NS SCH (09:00)
[2019-08-01] MEDS: SUCRALFATE 1 GM (CARAFATE) TAB PO SCH ×4 (09:00→20:33)
[2019-08-01] MEDS: DILTIAZEM 180 MG (CARDIZEM CD) CAP PO SCH (09:00)
[2019-08-01] MEDS: DRONEDARONE TABLET 400 MG TABLET PO SCH ×2 (09:00→20:33)
[2019-08-01] MEDS: PANTOPRAZOLE 40 MG (PROTONIX) TAB PO SCH (09:00)
[2019-08-01] MEDS: POLYETHYLENE GLYCOL 17 GM (MIRALAX) PACK PO SCH ×2 (09:01→20:33)
--- NOTE | 2019-08-01 09:04 | NUR ---
DISCHARGE PLANNING: This RN visited with patient regarding her discharge plan when the time comes She reports having been at [facility] for the past 8 years following CVA which left her left side weak. She does intend to return to [facility] on discharge. She reports that she will have behaving an endoscopy today. Will continue to follow and offer assist with discharge as needed.
--- NOTE | 2019-08-01 09:52 | NUR ---
NOTE THAT PT IS NPO FOR EGD COLONOSCOPY -- AM MEDS HELD -- PT REFUSED FLONASE
--- NOTE | 2019-08-01 10:24 | Progress Note - Hospitalist ---
TRAN [facility] 08/01/19 1024: Subjective HPI/CC On Admission Date Seen by Provider: Aug 01, 2019 Time Seen by Provider: 07:25 Patient presents to ER by private conveyance with chief complaint of feeling lightheaded short of breath and oxygen sats 84% on 4 L by nasal cannula which is her baseline. She was a postop appointment with Dr. An after a D&C for part of her outpatient workup of anemia and postmenopausal endometrial bleeding. She is 2 weeks out. She is on Eliquis for atrial Fibrillation and has a history of atrial fibrillation with rapid ventricular response. She is known to Dr. Calderon. She lives at the [facility] and is accompanied by her caregiver. She has a history of stroke and coronary disease. She denies any chest pain. She also has a history of baseline COPD but denies any wheezing. She is known to Dr. Forman, [facility].she has a past history of aspiration pneumonitis secondary to dysphasia from stroke and left sided hemiparesis. This morning she is sleeping comfortably having converted back to sinus rhythm after initiation of Cardizem IV. She is being switched to oral therapy. Subjective/Events-last exam Pt reports using a CPAP last night for most of the night, which is a change because she had not been wearing it at the [facility] She reports having BM yesterday after trying to start the prep for her scopes today She did not know if it was bloody, and the nurse denied any gross blood in her stool She denied any trouble breathing and is back at 3L O2 nasal cannula which is her normal She has a EGD and Colonoscopy scheduled for today to evaluate her anemia and positive fecal occult blood She denies feeling generalized fatigue from her anemia She reports low back pain associated with sitting in the bed for too long Review of Systems General: No Fatigue HEENT: No Head Aches, No Visual Changes Pulmonary: No Dyspnea, No Cough Cardiovascular: No: Chest Pain, Palpitations Gastrointestinal: No: Nausea, Vomiting, Abdominal Pain, Constipation Genitourinary: No Dysuria, No Hematuria Musculoskeletal: back pain (Low back pain), leg pain (Bilateral leg pain) Neurological: No: Numbness, Confusion Objective Exam Vital Signs Vital Signs Date Time Temp Pulse Resp B/P (MAP) Pulse Ox O2 Delivery O2 Flow Rate FiO2 08/01/19 08:00 High Flow N/C 6.00 08/01/19 08:00 36.6 79 18 147/75 (99) 96 07/31/19 13:15 40 Capillary Refill : Less Than 3 Seconds General Appearance: Mild Distress, Obese Respiratory: Chest Non Tender, No Accessory Muscle Use, No Respiratory Distress Cardiovascular: Regular Rate, Rhythm; No No Edema; No Murmur, Normal Peripheral Pulses Extremity: Calf Tenderness (Chronic), Pedal Edema (L>R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: Alert, Oriented x3, Normal Mood/Affect Skin: Normal Color, Warm/Dry Results/Procedures Lab Laboratory Tests 08/01/19 06:00 Patient resulted labs reviewed. Assessment/Plan Assessment and Plan Assess & Plan/Chief Complaint Assessment: A Fib w/ RVR, converted back to sinus Anemia, (+) Stool Hemoccult Bilateral Pleural Effusion (L>R) improved\ Left lower lobe consolidation Diabetes HTN Constipation Hx aspiration pneumonia Hx DVT Hx of CVA Plan: Consult Cardiology for A fib, HTN management EGD and Colonoscopy scheduled for today Consult pulmonology for pleural effusion and thoracentesis Monitor lung consolidation Monitor anemia Diabetes management DVT prophylaxis (hold anti coagulation due to possible GI bleed) Clinical Quality Measures DVT/VTE Risk/Contraindication: Risk Factor Score Per Nursin RFS Level Per Nursing on Admit: 4+=Very High FADUMO RUSH DO 08/01/191906: Subjective Subjective/Events-last exam EGD and colonoscopy will be done today. Used her CPAP machine last night and that helped her sleep better. Overall severe debility with bed-ridden status gives poor prognosis long-term. Hgb stable but hemoccult positive, and level of Hgb prompting scopes today. Review of Systems General: Fatigue Pulmonary: Dyspnea Objective Exam General Appearance: No Apparent Distress, WD/WN, Chronically ill, Obese Respiratory: Lungs Clear, Decreased Breath Sounds Cardiovascular: Regular Rate, Rhythm Extremity: Pedal Edema (L>R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: Alert, Oriented x3 Assessment/Plan Assessment and Plan Assess & Plan/Chief Complaint Scopes today Monitor hgb Prognosis poor Diagnosis/Problems Diagnosis/Problems (1) Atrial fibrillation with rapid ventricular response Status: Acute (2) Normocytic anemia Status: Chronic (3) Refusal of blood transfusions as patient is Nondenominational (4) Chronic kidney disease Status: Chronic (5) ANKIT (obstructive sleep apnea) Status: Chronic Supervisory-Addendum Brief Verification & Attestation Participated in pt care: history, MDM, physical Personally performed: exam, history, MDM, supervision of care Care discussed with: Medical Student Procedures: n/a Results interpretation: Verified all documentation Verification and Attestation of Medical Student E/M Service A medical student performed and documented this service in my presence. I reviewed and verified all information documented by the medical student and made modifications to such information, when appropriate. I personally performed the physical exam and medical decision making. Fadumo Rush, Aug 01, 2019,19:07 [facility] Aug 01, 2019 10:24 FADUMO MLALOY DO Aug 01, 2019 19:07 POS
--- NOTE | 2019-08-01 11:02 | Progress Note - Surgery ---
MAXIM SWANSON [facility] 08/01/19 1102: Subjective Date Seen by a Provider: Aug 01, 2019 Time Seen by a Provider: 07:10 Subjective/Events-last exam Pt is alert and oriented and in no acute distress. No family at bedside Pt has been having BM Aguiar catheter in place No abdominal pain Ambulating only to bathroom Pt is ready for EGD/Colonoscpy today Pt has some SOB, denies Chest pain, N/V, F/C Objective Exam Vital Signs Date Time Temp Pulse Resp B/P (MAP) Pulse Ox O2 Delivery O2 Flow Rate FiO2 08/01/19 08:00 High Flow N/C 6.00 08/01/19 08:00 36.6 79 18 147/75 (99) 96 High Flow N/C 8.00 08/01/19 07:58 92 Nasal Cannula 3.00 08/01/19 07:00 77 08/01/19 04:40 36.9 79 21 141/67 (91) 94 High Flow N/C 6.00 08/01/19 02:00 70 22 97 50.00 08/01/19 01:00 71 07/31/19 23:45 36.8 78 18 139/66 (90) 95 High Flow N/C 6.00 07/31/19 20:05 High Flow N/C 6.00 07/31/19 20:00 37.4 83 18 142/65 (90) 94 High Flow N/C 8.00 07/31/19 19:00 83 07/31/19 18:44 90 Nasal Cannula 3.00 07/31/19 16:00 37.5 72 18 143/67 (92) 92 High Flow N/C 8.00 07/31/19 14:35 95 Nasal Cannula 5.00 07/31/19 13:15 36.8 81 93 40 07/31/19 13:00 88 07/31/19 12:00 37.0 80 18 137/71 (93) 97 High Flow N/C 8.00 I & O 08/01/19 07:00 Intake Total 2260 ml Output Total 3000 ml Balance -740 ml Capillary Refill : Less Than 3 Seconds General Appearance: No Apparent Distress, Obese HEENT: PERRL/EOMI Neck: Other Respiratory: Chest Non Tender, No Accessory Muscle Use, No Respiratory Distress Cardiovascular: Regular Rate, Rhythm; No No Edema; No Murmur, Normal Peripheral Pulses Peripheral Pulses: 1+ Dorsalis Pedis (R), 1+ Left Dors-Pedis (L); 2+ Radial Pulses (R), 2+ Radial Pulses (L) Gastrointestinal: soft, tenderness Extremity: Calf Tenderness (Chronic), Pedal Edema (L>R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: Alert, Oriented x3, Normal Mood/Affect Skin: Normal Color, Warm/Dry Lymphatic: No Adenopathy Results Lab Laboratory Tests 07/31/19 11:11: Glucometer 200H 07/31/19 11:31: Glucometer 206H 07/31/19 16:05: Glucometer 165H 07/31/19 21:07: Glucometer 196H 08/01/19 05:58: Glucometer 123H 08/01/19 06:00: White Blood Count 8.2, Red Blood Count 3.43L, Hemoglobin 8.4L, Hematocrit 28L, Mean Corpuscular Volume 83, Mean Corpuscular Hemoglobin 25, Mean Corpuscular Hemoglobin Concent 30L, Red Cell Distribution Width 16.9H, Platelet Count 345, Mean Platelet Volume 9.2, Neutrophils (%) (Auto) 75, Lymphocytes (%) (Auto) 14, Monocytes (%) (Auto) 7, Eosinophils (%) (Auto) 4, Basophils (%) (Auto) 1, Neutrophils # (Auto) 6.1, Lymphocytes # (Auto) 1.1, Monocytes # (Auto) 0.6, Eosinophils # (Auto) 0.3, Basophils # (Auto) 0.0, Sodium Level 143, Potassium Level 3.3L, Chloride Level 109H, Carbon Dioxide Level 22, Anion Gap 12, Blood Urea Nitrogen 11, Creatinine 1.14, Estimat Glomerular Filtration Rate 47, BUN/Creatinine Ratio 10, Glucose Level 112H, Calcium Level 8.7, Phosphorus Level 3.3, Magnesium Level 1.8 Microbiology 07/28/19 MRSA Screen - Final, Complete Assessment/Plan Assessment/Plan Assessment/Plan A Fib w/ RVR, Anemia, (+) Stool Hemoccult Bilateral Pleural Effusion (L>R) Diabetes HTN Constipation Hx aspiration pneumonia Hx DVT Hx of CVA - Pt is having EGD and Colonoscopy today 08/01. Risk and benefits of EGD/Colonoscopy and all other indicated procedures to reevaluate. She understands and wishes to proceed. Clinical Quality Measures DVT/VTE Risk/Contraindication: Risk Factor Score Per Nursin RFS Level Per Nursing on Admit: 4+=Very High LOU HARDIN DO 08/01/19 2329: Subjective Subjective/Events-last exam Did not drink hardly any of her prep and no significant stooling. No new complaints denies abdominal pain, n/v, fever sweats chills shortness of breath at this time or chest pain. Objective Exam General Appearance: No Apparent Distress HEENT: PERRL/EOMI Neck: Non Tender, Supple Respiratory: Chest Non Tender, No Accessory Muscle Use, No Respiratory Distress Cardiovascular: Regular Rate, Rhythm Gastrointestinal: soft, tenderness (min) Extremity: Pedal Edema (L>R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: Alert, Oriented x3 Skin: Normal Color, Warm/Dry Lymphatic: No Adenopathy Assessment/Plan Assessment/Plan Assessment/Plan A Fib w/ RVR, Anemia, (+) Stool Hemoccult Bilateral Pleural Effusion (L>R) Diabetes HTN Constipation Hx aspiration pneumonia Hx DVT Hx of CVA Patient has not had good prep, instructed on need to take prep, she understands and will try more plan on egd/colonoscopy tomorrow now. Supervisory-Addendum Brief Verification & Attestation Participated in pt care: history, MDM, physical Personally performed: exam, history, MDM, supervision of care Care discussed with: Medical Student Procedures: n/a Results interpretation: Verified all documentation Verification and Attestation of Medical Student E/M Service A medical student performed and documented this service in my presence. I reviewed and verified all information documented by the medical student and made modifications to such information, when appropriate. I personally performed the physical exam and medical decision making. Lou Hardin, Aug 01, 2019,23:28 MAXIM SWANSON [facility] Aug 01, 2019 11:02 LOU PLASCENCIA DO Aug 01, 2019 23:29 POS
[2019-08-01 12:00] VITALS: BP 138/67
--- NOTE | 2019-08-01 13:30 | NUR ---
Pastoral care visit.
[2019-08-01 16:00] VITALS: BP 151/85
--- NOTE | 2019-08-01 17:09 | NUR ---
PT WAS NOT CLEAR -- DR HARDIN REQUESTED TO HAVE PT TAKE BOWEL PREP AND HE WILL DO EGD AND COLONOSCOPY IN AM -- PT IS NPO EXCEPT FRO BOWEL PREP
[2019-08-01 20:00] VITALS: BP 171/97
[2019-08-01] MEDS: MELATONIN 3 MG TABLET PO SCH (20:33)
--- NOTE | 2019-08-01 20:58 | NUR ---
PATIENT BLOOD GLUCOSE IS 109. PATIENT HAS ORDER FOR LEVEMIR 30UNITS SQ AT BEDTIME AND WILL BE NPO AT MIDNIGHT. DR RUSH NOTIFIED. ORDER RECEIVED TO HOLD LEVEMIR.
[2019-08-01 23:38] VITALS: BP 134/75
[2019-08-02] VITALS (7 sets, daily range): BP systolic 126–162; BP diastolic 65–83
[2019-08-02] MEDS ORDERED: NON-FORMULARY MEDICATION 1 EA EA (Dulaglutide (Trulicity) 1.5 MG) SQ SCH (02:30)
[2019-08-02] MEDS: RT-ALBUTEROL/IPRATROPIUM 3 ML (DUONEB) VIAL INH SCH ×6 (03:03→22:26)
[2019-08-02 05:12] LABS: BASOPHILS % (AUTO) 0 % (0-10); EOSINOPHILS # (AUTO) 0.3 10^3/uL (0.0-0.3); EOSINOPHILS % (AUTO) 4 % (0-10); HEMATOCRIT 29 % (35-52); HEMOGLOBIN 8.7 G/DL (11.5-16.0); LYMPHOCYTES # (AUTO) 1.3 X 10^3 (1.0-4.0); LYMPHOCYTES % (AUTO) 18 % (12-44); MEAN CORPUSCULAR HEMOGLOBIN 25 PG (25-34); MEAN CORPUSCULAR HGB CONC 30 G/DL (32-36); MEAN CORPUSCULAR VOLUME 81 FL (80-99); MEAN PLATELET VOLUME 9.1 FL (7.4-10.4); MONOCYTES # (AUTO) 0.6 X 10^3 (0.0-1.0); MONOCYTES % (AUTO) 8 % (0-12); NEUTROPHILS # (AUTO) 5.1 X 10^3 (1.8-7.8); NEUTROPHILS % (AUTO) 70 % (42-75); PLATELET COUNT 313 10^3/uL (130-400); RED CELL DISTRIBUTION WIDTH 17.5 % (10.0-14.5); WHITE BLOOD COUNT 7.3 10^3/uL (4.3-11.0)
[2019-08-02 05:40] LABS: CALCIUM 8.8 MG/DL (8.5-10.1); CREATININE SERUM 1.01 MG/DL (0.60-1.30); MAGNESIUM 1.7 MG/DL (1.6-2.4); PHOSPHORUS 3.5 MG/DL (2.3-4.7); POTASSIUM 3.2 MMOL/L (3.6-5.0)
[2019-08-02] MEDS: inSUlin ASPART (NovoLOG) 1 UNIT/0.01 ML (CHARGE PER UNIT) SC SCH ×4 (05:45→21:52)
[2019-08-02] MEDS: ADVAIR HFA 115/21 MCG INHALER 8 GM IH SCH ×2 (07:21→22:26)
--- NOTE | 2019-08-02 07:34 | Diagnostic Imaging Report ---
INDICATION: Dyspnea. Comparison with 08/01/2019. FINDINGS: There has been slight increase in infiltrate in the left lung base with persistent left basilar pleural effusion. Right lung remains clear. Mild cardiomegaly. No evidence of pulmonary edema. IMPRESSION: 1. Slight increase in infiltrate and effusion left lung base when compared with previous exam. Dictated by: Dictated on workstation # [id number]
[2019-08-02] MEDS ORDERED: LACTATED RINGERS 1,000 ML IV ONE (08:29)
[2019-08-02] MEDS ORDERED: MIDAZOLAM 2 MG/2 ML (VERSED) VIAL ONE (08:30)
[2019-08-02] MEDS ORDERED: KETAMINE/NaCl 50 MG/5 ML SYRINGE (ED ONLY) ONE (08:30)
[2019-08-02] MEDS ORDERED: proPOfol 200 MG/20 ML (DIPRIVAN) VIAL IV ONE (08:30)
--- NOTE | 2019-08-02 08:43 | Progress Note - Hospitalist ---
[facility] 08/02/19 0842: Subjective HPI/CC On Admission Date Seen by Provider: Aug 02, 2019 Time Seen by Provider: 07:54 Patient presents to ER by private conveyance with chief complaint of feeling lightheaded short of breath and oxygen sats 84% on 4 L by nasal cannula which is her baseline. She was a postop appointment with Dr. An after a D&C for part of her outpatient workup of anemia and postmenopausal endometrial bleeding. She is 2 weeks out. She is on Eliquis for atrial Fibrillation and has a history of atrial fibrillation with rapid ventricular response. She is known to Dr. Calderon. She lives at the [facility] and is accompanied by her caregiver. She has a history of stroke and coronary disease. She denies any chest pain. She also has a history of baseline COPD but denies any wheezing. She is known to Dr. Forman, [facility].she has a past history of aspiration pneumonitis secondary to dysphasia from stroke and left sided hemiparesis. This morning she is sleeping comfortably having converted back to sinus rhythm after initiation of Cardizem IV. She is being switched to oral therapy. Subjective/Events-last exam Pt reports not getting her EGD/Colonoscopy done yesterday because the doctor told her she did not drink enough of the prep She states she drank the whole gallon after he told her to drink more, but she did not think she had as much bowel movement as she would have expected She reports sleeping most of the night using her CPAP but states it did bother her some last night She denied any trouble breathing or a cough, but her CXR did show increased infiltrate and effusion in the left lung base compared to yesterday She did state she hopes tog et the scopes done today because she is really hungry She reports feeling pretty good overall and back to her normal baseline Review of Systems General: No Chills HEENT: No Head Aches, No Visual Changes Pulmonary: No Dyspnea, No Cough Cardiovascular: No: Chest Pain, Palpitations Gastrointestinal: No: Nausea, Vomiting, Abdominal Pain, Constipation Neurological: No: Numbness, Confusion Objective Exam Vital Signs Vital Signs Date Time Temp Pulse Resp B/P (MAP) Pulse Ox O2 Delivery O2 Flow Rate FiO2 08/02/19 07:22 94 Nasal Cannula 3.00 08/02/19 06:40 96 08/02/19 05:46 36.6 22 133/75 (94) 07/31/19 13:15 40 Capillary Refill : Less Than 3 Seconds General Appearance: No Apparent Distress, Chronically ill, Obese Respiratory: Chest Non Tender, No Accessory Muscle Use, No Respiratory Distress Cardiovascular: Regular Rate, Rhythm, Normal Peripheral Pulses Extremity: Non Tender, No Calf Tenderness Neurologic/Psychiatric: Alert, Oriented x3, Normal Mood/Affect Skin: Normal Color, Warm/Dry Results/Procedures Lab Laboratory Tests 08/02/19 04:35 Patient resulted labs reviewed. Assessment/Plan Assessment and Plan Assess & Plan/Chief Complaint Assessment: A Fib w/ RVR, converted back to sinus Anemia, (+) Stool Hemoccult Left lower lobe consolidation and effusion worsening from yesterday Diabetes HTN Hx Constipation Hx Aspiration pneumonia Hx DVT Hx of CVA Plan: Consult Cardiology for A fib, HTN management EGD and Colonoscopy scheduled for today Consult pulmonology for pleural effusion, infiltrates and thoracentesis follow up Monitor lung consolidation Monitor anemia Diabetes management DVT prophylaxis (hold anti coagulation due to possible GI bleed) Clinical Quality Measures DVT/VTE Risk/Contraindication: Risk Factor Score Per Nursin RFS Level Per Nursing on Admit: 4+=Very High FADUMO RUSH DO 08/02/192031: Subjective Subjective/Events-last exam Pt endoscopy with EGD and colonoscopy today Hgb remains stable at 8.7 Overall poor prognosis due to bed ridden status and usp permanently Review of Systems General: Fatigue Objective Exam General Appearance: No Apparent Distress, WD/WN, Chronically ill, Obese Respiratory: No Accessory Muscle Use, No Respiratory Distress, Decreased Breath Sounds Cardiovascular: Regular Rate, Rhythm Assessment/Plan Assessment and Plan Assess & Plan/Chief Complaint Scopes Monitor closely DC soon? Diagnosis/Problems Diagnosis/Problems (1) Normocytic anemia Status: Chronic (2) Atrial fibrillation with rapid ventricular response Status: Acute Supervisory-Addendum Brief Verification & Attestation Participated in pt care: history, MDM, physical Personally performed: exam, history, MDM, supervision of care Care discussed with: Medical Student Procedures: n/a Results interpretation: Verified all documentation Verification and Attestation of Medical Student E/M Service A medical student performed and documented this service in my presence. I reviewed and verified all information documented by the medical student and made modifications to such information, when appropriate. I personally performed the physical exam and medical decision making. Fadumo Rush, Aug 02, 2019,20:32 [facility] Aug 02, 2019 08:42 FADUMO MALLOY DO Aug 02, 2019 20:32 POS
--- NOTE | 2019-08-02 08:44 | Pulmonary Progress Note ---
GINACALVIN N MED STUDENT 08/02/19 0844: Subjective Date Seen by a Provider: Aug 02, 2019 Time Seen by a Provider: 10:18 Subjective/Events-last exam Patient states that she is feeling well, and she is currently eating her breakfast. She had an EGD and colonoscopy this morning. She denies any shortness of breath, cough, fevers, chills, nausea, vomiting, and diarrhea. Sepsis Event Evaluation Height, Weight, BMI Height: 5'6.00" Weight: 118lbs. 0.5oz. 53.845696nz; 40.00 BMI Method:Estimated Exam Exam Vital Signs Date Time Temp Pulse Resp B/P (MAP) Pulse Ox O2 Delivery O2 Flow Rate FiO2 08/02/19 07:22 94 Nasal Cannula 3.00 08/02/19 06:40 96 08/02/19 05:46 36.6 99 22 133/75 (94) 96 High Flow N/C 5.00 08/02/19 03:08 92 Nasal Cannula 3.00 08/02/19 00:38 88 08/01/19 23:38 37.3 90 22 134/75 (94) 99 High Flow N/C 6.00 08/01/19 22:42 68 24 100 50.00 08/01/19 21:00 High Flow N/C 6.00 08/01/19 20:24 95 Nasal Cannula 3.00 08/01/19 20:00 37.4 88 22 171/97 (121) 97 High Flow N/C 6.00 08/01/19 19:00 91 08/01/19 16:00 37.0 90 20 151/85 (107) 96 High Flow N/C 6.00 08/01/19 15:27 94 Nasal Cannula 3.00 08/01/19 13:00 88 08/01/19 12:00 37.4 81 18 138/67 (90) 96 High Flow N/C 6.00 08/01/19 10:52 94 Nasal Cannula 3.00 I & O 08/02/19 07:00 Intake Total 4800 ml Output Total 2200 ml Balance 2600 ml Height & Weight Height: 5'6.00" Weight: 118lbs. 0.5oz. 53.904285db; 40.00 BMI Method:Estimated General Appearance: No Apparent Distress, Obese HEENT: PERRL/EOMI Neck: Non Tender, Supple Respiratory: Chest Non Tender, No Accessory Muscle Use, No Respiratory Distress, Crackles Cardiovascular: Regular Rate, Rhythm Capillary Refill: Less Than 3 Seconds Peripheral Pulses: 2+ Radial Pulses (R), 2+ Radial Pulses (L) Gastrointestinal: soft, tenderness (min) Extremity: Pedal Edema (L>R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: Alert, Oriented x3 Skin: Normal Color, Warm/Dry Lymphatic: No Adenopathy Results Lab Laboratory Tests 08/01/19 06:00 08/02/19 04:35 Radiology Chest Xray 08/02/19 IMPRESSION: 1. Slight increase in infiltrate and effusion left lung base when compared with previous exam. Procedures Thoracentesis performed 07/31/19 1500cc fluid WBC: 16 RBC: 1950 LDH: 102 Protein: 3.7 pH 7.3 Assessment/Plan Assessment/Plan Left large pleural effusion r/o cancer - Doubt from CHF since it is left sided -S/P thoracentesis 07/31/19 -exudative: serum total protein 6.4 pleural total protein 3.7 -CT shows mediastinal lymphadenopathy which is indeterminate. -reactive lymph nodes versus lymphoma -Furosemide 40mg BID -Echo 07/31/19 LVEF 55-65% Oxygen dependent COPD -quit smoking in 1999 -13pk/yr hx of tobacco use Afib with RVR - Now Converted to sinus -Diltiazem 180mg daily -Dronedarone 400mg BID DM type II -Jardiance 10mg -Levemir 30U HS -Trulia Anemia -Postmenopausal bleeding -s/p D&C with Dr. An -Positive fecal occult -surgery consulted -EGD and colonoscopy today 08/02/19 -Pt. refuses transfusion due to christianity beliefs HARSHIL PATEL DO 08/02/19 1042: Subjective Time Seen by a Provider: 10:39 Subjective/Events-last exam No complications noted. Exam Exam General Appearance: No Apparent Distress, Obese HEENT: PERRL/EOMI Neck: Non Tender, Supple Respiratory: Chest Non Tender, No Accessory Muscle Use, No Respiratory Distress, Crackles Cardiovascular: Regular Rate, Rhythm Capillary Refill: Less Than 3 Seconds Gastrointestinal: soft, tenderness (min) Extremity: Pedal Edema (L>R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: Alert, Oriented x3 Skin: Normal Color, Warm/Dry Lymphatic: No Adenopathy Assessment/Plan Assessment/Plan Left large pleural effusion r/o cancer - Doubt from CHF since it is left sided -S/P thoracentesis 07/31/19 -- Cytology is negative -exudative: serum total protein 6.4 pleural total protein 3.7 -CT shows mediastinal lymphadenopathy which is indeterminate. -reactive lymph nodes versus lymphoma -Furosemide 40mg BID -Echo 07/31/19 LVEF 55-65% Oxygen dependent COPD -quit smoking in 1999 -13pk/yr hx of tobacco use Afib with RVR - Now Converted to sinus DM type II Anemia -Postmenopausal bleeding -s/p D&C with Dr. An -Positive fecal occult -surgery consulted -EGD and colonoscopy today 08/02/19 -Pt. refuses transfusion due to christianity beliefs Supervisory-Addendum Brief Verification & Attestation Participated in pt care: history Personally performed: exam, history Care discussed with: Medical Student Procedures: n/a Verification and Attestation of Medical Student E/M Service A medical student performed and documented this service in my presence. I reviewed and verified all information documented by the medical student and made modifications to such information, when appropriate. I personally performed the physical exam and medical decision making. Harshil Patel, Aug 23, 2019,06:58 CALVIN FUENTES MED STUDENT Aug 02, 2019 08:44 HARSHIL HOLM DO Aug 02, 2019 10:42 POS
--- NOTE | 2019-08-02 09:23 | Progress Note-Post Operative ---
Post-Operative Progess Note Surgeon (s)/Galvanometer Assembler (s) Surgeon LOU HARDIN DO Galvanometer Assembler: NA Pre-Operative Diagnosis Occult + Stool Post-Operative Diagnosis Small hiatal hernia, Gastritis, Colon Polyps Procedure & Operative Findings Date of Procedure 08/02/19 Procedure Performed/Findings EGD with Biopsies Gastric polyp with Minimal inflammation Colonoscopy with hot biopsy polypectomy x 4 Anesthesia Type per MDA Estimated Blood Loss Estimated blood loss (mL): None Specimens/Packing Specimens Removed Biopsy of the antrum and proximal stomach Ascending colon Hot biopsy Polypectomy x 1 Hepatic flexure hot biopsy polypectomy x 1 Transverse colon hot biopsy polypectomy x 1 Sigmoid Colon hot biopsy polypectomy x 1 LOU HARDIN DO Aug 02, 2019 09:23 POS
--- NOTE | 2019-08-02 09:33 | Progress Note-Pre Operative ---
Pre-Operative Progress Note H&P Reviewed The H&P was reviewed, patient examined and no changes noted. Date Seen by Provider: Aug 02, 2019 Time Seen by Provider: 09:33 Date H&P Reviewed: Aug 02, 2019 Time H&P Reviewed: 09:33 Pre-Operative Diagnosis: SYMPTOMATIC CHOLELITHIASIS LOU HARDIN DO Aug 02, 2019 09:33 POS
--- NOTE | 2019-08-02 10:33 | Physician Query Clarification ---
PQ-CHF Specificity Admission Date: Jul 28, 2019 at 11:30 Discharge Date: The medical record reflects the following clinical scenario: History/Risk Factors: Paroxysmal atrial fib Hypertensive cardiorenal disease Chronic kidney disease stage 3-4 Clinical Findings: Large left pleural effusion, BNP 597.0 Treatment: IVP 40 mg lasix. Thoracentesis done for pleural effusion. Question: Can you further specify the acuity &/or type of CHF per the clinical indicators above? Please document a response in the Progress Notes or Discharge Summary. 1. Acuity: Acute, Chronic or Acute on Chronic 2. Type: Systolic, Diastolic or Systolic & Diastolic 3. Unspecified: CHF cannot be further specified regarding type or acuity 4. Other, with explanation of clinical findings 5. Clinically undetermined, no explanation for clinical findings PHYSICIAN RESPONSE Acuity: Acute on Chronic Type: Diastolic Please remember a lack of response to the above will prompt a phone page by CDI/Coding staff. In responding to this query, please exercise your independent professional judgment. The purpose of this communication is to more accurately reflect the complexity of your patients condition. The fact that a question is asked does not imply that any particular answer is desired or expected. Thank you for your timely response to this clarification. Requestors name: Chayito Glasgow [facility] Phone # ext [phone] or [phone] THIS PHYSICIAN QUERY FORM IS A PERMANENT PART OF THE MEDICAL RECORD CHAYITO GLASGOW Aug 02, 2019 10:33 ABUDLLAHI GEORGE MD Aug 15, 2019 09:19 POS
[2019-08-02] MEDS: meTOprolol SUCCINATE 100 MG (TOPROL XL) TAB PO SCH (10:42)
[2019-08-02] MEDS: GABAPENTIN 300 MG (NEURONTIN) CAP PO SCH ×2 (10:42→21:52)
[2019-08-02] MEDS: DRONEDARONE TABLET 400 MG TABLET PO SCH ×2 (10:42→21:52)
[2019-08-02] MEDS: DILTIAZEM 180 MG (CARDIZEM CD) CAP PO SCH (10:42)
[2019-08-02] MEDS: SUCRALFATE 1 GM (CARAFATE) TAB PO SCH ×4 (10:42→21:52)
[2019-08-02] MEDS: FUROSEMIDE 40 MG (LASIX) TAB PO SCH ×2 (10:43→21:52)
[2019-08-02] MEDS: FERROUS SULF 325 MG (IRON) TAB PO SCH (10:43)
[2019-08-02] MEDS: PANTOPRAZOLE 40 MG (PROTONIX) TAB PO SCH (10:43)
[2019-08-02] MEDS: FLUTICASONE NASAL SPRAY (FLONASE) 16 GM BTL NS SCH (10:44)
[2019-08-02] MEDS: NON-FORMULARY MEDICATION 1 EA EA (Empagliflozin (Jardiance) 10 MG) PO SCH (10:44)
[2019-08-02] MEDS: POLYETHYLENE GLYCOL 17 GM (MIRALAX) PACK PO SCH ×2 (10:45→21:36)
[2019-08-02] MEDS: DOCUSATE SODIUM 100 MG (COLACE) CAP PO SCH ×2 (10:45→21:35)
[2019-08-02] MEDS: LACTULOSE SYRUP 10GM/15ML (ENULOSE) 30ML UDC PO SCH ×2 (10:45→21:35)
[2019-08-02] MEDS: SENNA W/DOCUSATE (SENOKOT S) TABLET PO SCH ×2 (10:46→21:36)
--- NOTE | 2019-08-02 14:44 | Anesthesia-General Post-Op ---
MAC Patient Condition Mental Status/LOC: Same as Preop Cardiovascular: Satisfactory Nausea/Vomiting: Absent Respiratory: Satisfactory Pain: Controlled Complications: Absent Post Op Complications Complications None Follow Up Care/Instructions Patient Instructions None needed. Anesthesiology Discharge Order Discharge Order Patient was seen after the procedure this morning and she was doing well, no complaints, stable vital signs, no apparent adverse anesthesia problems. ANDREW GONCALVES DO Aug 02, 2019 14:44 POS
--- NOTE | 2019-08-02 16:42 | Cardiology Progress Note ---
Subjective Date Seen by Provider: Aug 02, 2019 Time Seen by Provider: 16:40 Subjective/Events-last exam patient is laying down in bed. No new complaint. Denied any chest pain, still having dyspnea Review of Systems General: No Chills, No Night Sweats, No Fatigue, No Malaise, No Appetite, No Other HEENT: No Head Aches, No Visual Changes, No Eye Pain, No Ear Pain, No Dysphasia, No Sinus Congestion, No Post Nasal Drip, No Sore Throat, No Other Pulmonary: Dyspnea; No Cough, No Pleuritic Chest Pain, No Other Cardiovascular: No: Chest Pain, Palpitations, Orthopnea, Paroxysmal Noc. Dyspnea, Edema, Lt Headedness, Other Objective-Cardiology Exam Last Set of Vital Signs Vital Signs 07/31/19 08/02/19 13:15 16:00 Temp 37.2 Pulse 93 Resp 24 B/P (MAP) 142/74 (96) Pulse Ox 95 O2 Delivery Nasal Cannula O2 Flow Rate 2.00 FiO2 40 Capillary Refill : Less Than 3 Seconds I&O Intake and Output 08/02/19 00:00 Intake Total 4800 ml Output Total 2150 ml Balance 2650 ml Intake Oral 4800 ml Output Urine Total 2150 ml # Bowel Movements 7 General: Alert, Oriented X3, Cooperative, No Acute Distress HEENT: Atraumatic Neck: Supple Lungs: Normal Air Movement, Other (Bilateral rhonchi) Heart: Regular Rate, Normal S1, Normal S2, Other (Systolic murmur at the left sternal border) Abdomen: Normal Bowel Sounds, Soft Extremities: No Edema (+1 edema BLE), Normal Pulses Neuro: Normal Speech, Sensation Intact, Other Psych/Mental Status: Mood NL Results Lab Laboratory Tests 08/02/19 04:35 A/P-Cardiology Admission Diagnosis Paroxysmal atrial fibrillation Acute renal failure Acute respiratory failure Hypertension Assessment/Plan Paroxysmal atrial fibrillation, had an episode of atrial fibrillation, s/p cardioversion in April 2019, converted back to sinus rhythm on Cardizem drip, back on oral Cardizem and Multaq. Unable to tolerate OAC at this time secondary to anemia. Anemia, underwent endoscopy with Dr. Herrera, still cannot tolerate oral anticoagulation at this time. Status post respiratory failure, feeling better at this time. Continue to monitor Large pleural effusion status post thoracentesis, feeling better at this time. Continue to monitor History of chronic peripheral edema, recurrent cellulitis with nonhealing wounds, had an abnormal TIANNA but arterial ultrasound did not show significant obstructive disease Chronic kidney disease stage 3-4, slight improvement in renal function, continue to monitor History of CVA with left-sided paralysis,Eliquis currently on hold. History of DVT, noted on February 19, 2019 after emergency room visit for chest pain and shortness of breath. Was on oral anticoagulation, currently on hold Echocardiogram done on February 19, 2019 showing normal left ventricular size and systolic function, ejection fraction 55-65 percent, left atrial dilatation, PA pressure of 20 mmHg. Continue to monitor Hypertension, controlled, continue to monitor. Hyperlipidemia, monitor lipids Diabetes mellitus, followed and managed by primary care physician Obesity, BMI 40. Depression. Clinical Quality Measures DVT/VTE Risk/Contraindication: Risk Factor Score Per Nursin RFS Level Per Nursing on Admit: 4+=Very High FARAZ ALCALA MD Aug 02, 2019 16:42 POS
--- NOTE | 2019-08-02 17:53 | Progress Note - Surgery ---
MAXIM [facility] 08/02/19 1753: Subjective Date Seen by a Provider: Aug 02, 2019 Time Seen by a Provider: 07:10 Subjective/Events-last exam Patient is alert and oriented and in no acute distress. No family at bedside Pt has been NPO, prepping for EGD/Colonoscopy Pt states she has been having a lot more BM and feels prepped for the procedures today. Aguiar catheter in place Patient has minimal abdominal pain, and denies N/V, F/C, SOB, Chest pain Objective Exam Vital Signs Date Time Temp Pulse Resp B/P (MAP) Pulse Ox O2 Delivery O2 Flow Rate FiO2 08/02/19 16:00 37.2 93 24 142/74 (96) 95 Nasal Cannula 2.00 08/02/19 14:43 91 Nasal Cannula 2.00 08/02/19 12:53 114 08/02/19 11:28 37.0 98 18 130/65 (86) 94 High Flow N/C 2.00 08/02/19 10:47 88 Nasal Cannula 2.00 08/02/19 09:20 119 18 96 Nasal Cannula 6 08/02/19 09:15 110 18 96 OxyMask 10 08/02/19 09:00 Nasal Cannula 2.00 08/02/19 08:00 36.8 98 18 162/83 (109) 98 High Flow N/C 6.00 08/02/19 07:22 94 Nasal Cannula 3.00 08/02/19 06:40 96 08/02/19 05:46 36.6 99 22 133/75 (94) 96 High Flow N/C 5.00 08/02/19 03:08 92 Nasal Cannula 3.00 08/02/19 00:38 88 08/01/19 23:38 37.3 90 22 134/75 (94) 99 High Flow N/C 6.00 08/01/19 22:42 68 24 100 50.00 08/01/19 21:00 High Flow N/C 6.00 08/01/19 20:24 95 Nasal Cannula 3.00 08/01/19 20:00 37.4 88 22 171/97 (121) 97 High Flow N/C 6.00 08/01/19 19:00 91 I & O 08/02/19 07:00 Intake Total 4800 ml Output Total 2200 ml Balance 2600 ml Capillary Refill : Less Than 3 Seconds General Appearance: No Apparent Distress, Obese HEENT: PERRL/EOMI Neck: Non Tender, Supple Respiratory: Chest Non Tender, No Accessory Muscle Use, No Respiratory Distress, Crackles Cardiovascular: Regular Rate, Rhythm Peripheral Pulses: 2+ Radial Pulses (R), 2+ Radial Pulses (L) Gastrointestinal: soft, tenderness (min) Extremity: Pedal Edema (L>R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: Alert, Oriented x3 Skin: Normal Color, Warm/Dry Lymphatic: No Adenopathy Results Lab Laboratory Tests 08/01/19 20:51: Glucometer 109 08/02/19 04:35: White Blood Count 7.3, Red Blood Count 3.55L, Hemoglobin 8.7L, Hematocrit 29L, Mean Corpuscular Volume 81, Mean Corpuscular Hemoglobin 25, Mean Corpuscular Hemoglobin Concent 30L, Red Cell Distribution Width 17.5H, Platelet Count 313, Mean Platelet Volume 9.1, Neutrophils (%) (Auto) 70, Lymphocytes (%) (Auto) 18, Monocytes (%) (Auto) 8, Eosinophils (%) (Auto) 4, Basophils (%) (Auto) 0, Neutrophils # (Auto) 5.1, Lymphocytes # (Auto) 1.3, Monocytes # (Auto) 0.6, Eosinophils # (Auto) 0.3, Basophils # (Auto) 0.0, Sodium Level 144, Potassium Level 3.2L, Chloride Level 109H, Carbon Dioxide Level 23, Anion Gap 12, Blood Urea Nitrogen 9, Creatinine 1.01, Estimat Glomerular Filtration Rate 54, BUN/Creatinine Ratio 9, Glucose Level 120H, Calcium Level 8.8, Phosphorus Level 3.5, Magnesium Level 1.7 08/02/19 11:20: Glucometer 202H 08/02/19 16:14: Glucometer 143H Microbiology 07/31/19 Gram Stain, Resulted Pending 07/31/19 Body Fluid Culture - Preliminary, Resulted No growth 07/28/19 MRSA Screen - Final, Complete Assessment/Plan Assessment/Plan Assessment/Plan A Fib w/ RVR, Anemia, (+) Stool Hemoccult Bilateral Pleural Effusion (L>R) Diabetes HTN Constipation Hx aspiration pneumonia Hx DVT Hx of CVA - Pt is having EGD/Colonoscopy today. Pt states she drank alot more of the prep and feels better about performing the procedures today. Results will dictate plan from a GI standpoint. - pt HgB is table.Will continue to monitor. - continue medical management Clinical Quality Measures DVT/VTE Risk/Contraindication: Risk Factor Score Per Nursin RFS Level Per Nursing on Admit: 4+=Very High LOU HARDIN DO 08/03/19 2239: Subjective Subjective/Events-last exam Tolerated prep. Minimal abdominal pain. Denies n/v fever sweats chills shortness of breath or chest pain currently NPO. Objective Exam General Appearance: No Apparent Distress, Obese HEENT: PERRL/EOMI Neck: Non Tender, Supple Respiratory: Chest Non Tender, No Accessory Muscle Use, No Respiratory Distress Cardiovascular: Regular Rate, Rhythm Gastrointestinal: tenderness (min lower) Extremity: Pedal Edema (L>R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: Alert, Oriented x3 Skin: Normal Color, Warm/Dry Assessment/Plan Assessment/Plan Assessment/Plan occult + stool, anemia, afib rvr patient plan for egd colonoscopy today understands risks and benefits. follow hgb Supervisory-Addendum Brief Verification & Attestation Participated in pt care: history, MDM, physical Personally performed: exam, history, MDM, supervision of care Care discussed with: Medical Student Procedures: n/a Results interpretation: Verified all documentation Verification and Attestation of Medical Student E/M Service A medical student performed and documented this service in my presence. I reviewed and verified all information documented by the medical student and made modifications to such information, when appropriate. I personally performed the physical exam and medical decision making. Lou Hardin, Aug 02, 2019,22:39 MAXIM SWANSON [facility] Aug 02, 2019 17:53 LOU PLASCENCIA DO Aug 03, 2019 22:39 POS
[2019-08-02] MEDS: MELATONIN 3 MG TABLET PO SCH (22:10)
[2019-08-03] VITALS: BP 117/69
[2019-08-03] MEDS: RT-ALBUTEROL/IPRATROPIUM 3 ML (DUONEB) VIAL INH SCH ×3 (03:16→10:37)
[2019-08-03 03:39] LABS: BASOPHILS % (AUTO) 0 % (0-10); EOSINOPHILS # (AUTO) 0.3 10^3/uL (0.0-0.3); EOSINOPHILS % (AUTO) 4 % (0-10); HEMATOCRIT 30 % (35-52); HEMOGLOBIN 8.8 G/DL (11.5-16.0); LYMPHOCYTES # (AUTO) 1.1 X 10^3 (1.0-4.0); LYMPHOCYTES % (AUTO) 14 % (12-44); MEAN CORPUSCULAR HEMOGLOBIN 24 PG (25-34); MEAN CORPUSCULAR HGB CONC 30 G/DL (32-36); MEAN CORPUSCULAR VOLUME 82 FL (80-99); MONOCYTES # (AUTO) 0.6 X 10^3 (0.0-1.0); MONOCYTES % (AUTO) 8 % (0-12); NEUTROPHILS # (AUTO) 5.6 X 10^3 (1.8-7.8); NEUTROPHILS % (AUTO) 74 % (42-75); PLATELET COUNT 295 10^3/uL (130-400); WHITE BLOOD COUNT 7.5 10^3/uL (4.3-11.0)
[2019-08-03 03:56] LABS: CALCIUM 8.7 MG/DL (8.5-10.1); CREATININE SERUM 1.2 MG/DL (0.60-1.30); MAGNESIUM 1.6 MG/DL (1.6-2.4); PHOSPHORUS 3.9 MG/DL (2.3-4.7); POTASSIUM 3.3 MMOL/L (3.6-5.0)
[2019-08-03 04:00] VITALS: BP 119/65
[2019-08-03] MEDS: inSUlin ASPART (NovoLOG) 1 UNIT/0.01 ML (CHARGE PER UNIT) SC SCH ×2 (05:06→11:27)
[2019-08-03] MEDS: ADVAIR HFA 115/21 MCG INHALER 8 GM IH SCH (06:51)
[2019-08-03 08:00] VITALS: BP 129/72
[2019-08-03] MEDS: FLUTICASONE NASAL SPRAY (FLONASE) 16 GM BTL NS SCH (08:26)
--- NOTE | 2019-08-03 08:26 | Cardiology Progress Note ---
Subjective Date Seen by Provider: Aug 03, 2019 Time Seen by Provider: 08:23 Subjective/Events-last exam Patient is sitting up in bed, no new complaint. Denies any chest pain or dyspnea. Review of Systems General: Fatigue Pulmonary: Dyspnea Objective-Cardiology Exam Last Set of Vital Signs Vital Signs 07/31/19 08/03/19 08/03/19 08/03/19 08/03/19 13:15 04:00 06:51 06:55 07:00 Temp 37.1 Pulse 68 Resp 21 B/P (MAP) 119/65 (83) Pulse Ox 95 O2 Delivery Nasal Cannula O2 Flow Rate 50.00 FiO2 40 Capillary Refill : Less Than 3 Seconds I&O Intake and Output 08/03/19 00:00 Intake Total 1450 ml Output Total 2250 ml Balance -800 ml Intake Oral 1450 ml Output Urine Total 1450 ml Urine/Stool Mix 800 ml # Bowel Movements 6 General: Alert, Oriented X3, Cooperative, No Acute Distress HEENT: Atraumatic Neck: Supple Lungs: Normal Air Movement, Other (Bilateral rhonchi) Heart: Regular Rate, Normal S1, Normal S2, Other (Systolic murmur at the left sternal border) Abdomen: Normal Bowel Sounds, Soft Extremities: No Edema (+1 edema BLE), Normal Pulses Skin: No Rashes Neuro: Normal Speech, Sensation Intact, Other Psych/Mental Status: Mood NL Results Lab Laboratory Tests 08/03/19 03:15 A/P-Cardiology Admission Diagnosis Paroxysmal atrial fibrillation Acute renal failure Acute respiratory failure Hypertension Assessment/Plan Paroxysmal atrial fibrillation, had an episode of atrial fibrillation, s/p cardioversion in April 2019, converted back to sinus rhythm on Cardizem drip, back on oral Cardizem and Multaq. Unable to tolerate OAC at this time secondary to anemia. Anemia, underwent endoscopy with Dr. Herrera yesterday revealing gastritis, still cannot tolerate oral anticoagulation at this time. Status post respiratory failure, feeling better at this time. Continue to monitor Large pleural effusion status post thoracentesis, feeling better at this time. Continue to monitor History of chronic peripheral edema, recurrent cellulitis with nonhealing wounds, had an abnormal TIANNA but arterial ultrasound did not show significant obs tructive disease Chronic kidney disease stage 3-4, slight improvement in renal function, continue to monitor History of CVA with left-sided paralysis,Eliquis currently on hold. History of DVT, noted on February 19, 2019 after emergency room visit for chest pain and shortness of breath. Was on oral anticoagulation, currently on hold Echocardiogram done on February 19, 2019 showing normal left ventricular size and systolic function, ejection fraction 55-65 percent, left atrial dilatation, PA pressure of 20 mmHg. Continue to monitor Hypertension, controlled, continue to monitor. Hyperlipidemia, monitor lipids Diabetes mellitus, followed and managed by primary care physician Obesity, BMI 40. Depression. Patient was seen and evaluated with Gris, examination performed, management plan was discussed, agree with the current scribed note, I made few changes to the note using Italic font No new complaint, continue same meds and monitor monitor H&H Clinical Quality Measures DVT/VTE Risk/Contraindication: Risk Factor Score Per Nursin RFS Level Per Nursing on Admit: 4+=Very High GRIS WRIGHT Aug 03, 2019 08:26 FARAZ AERLLANO MD Aug 03, 2019 08:36 POS
[2019-08-03] MEDS: DRONEDARONE TABLET 400 MG TABLET PO SCH (08:27)
[2019-08-03] MEDS: DILTIAZEM 180 MG (CARDIZEM CD) CAP PO SCH (08:27)
[2019-08-03] MEDS: GABAPENTIN 300 MG (NEURONTIN) CAP PO SCH (08:27)
[2019-08-03] MEDS: FERROUS SULF 325 MG (IRON) TAB PO SCH (08:27)
[2019-08-03] MEDS: FUROSEMIDE 40 MG (LASIX) TAB PO SCH (08:27)
--- NOTE | 2019-08-03 08:27 | Diagnostic Imaging Report ---
INDICATION: Dyspnea. Time of exam 3:10 AM Correlation is made with prior chest from 08/02/2019. Heart is enlarged but stable. There appears to be some persistent mild infiltrate in the left base as well as a small left effusion. Right lung is clear. Pulmonary vascularity is normal. There is no pneumothorax. IMPRESSION: Left basilar infiltrate and pleural fluid persists but does appear to be improved when compared with the examination one day earlier. Dictated by: Dictated on workstation # [id number]
[2019-08-03] MEDS: DOCUSATE SODIUM 100 MG (COLACE) CAP PO SCH (08:28)
[2019-08-03] MEDS: SUCRALFATE 1 GM (CARAFATE) TAB PO SCH (08:28)
[2019-08-03] MEDS: meTOprolol SUCCINATE 100 MG (TOPROL XL) TAB PO SCH (08:28)
[2019-08-03] MEDS: PANTOPRAZOLE 40 MG (PROTONIX) TAB PO SCH (08:28)
[2019-08-03] MEDS: POLYETHYLENE GLYCOL 17 GM (MIRALAX) PACK PO SCH (08:30)
[2019-08-03] MEDS: LACTULOSE SYRUP 10GM/15ML (ENULOSE) 30ML UDC PO SCH (08:31)
[2019-08-03] MEDS: SENNA W/DOCUSATE (SENOKOT S) TABLET PO SCH (08:32)
--- NOTE | 2019-08-03 09:36 | Pulmonary Progress Note ---
CALVIN FUENTES MED STUDENT 08/03/19 0936: Subjective Date Seen by a Provider: Aug 03, 2019 Time Seen by a Provider: 10:38 Subjective/Events-last exam Patient states that she is feeling well. She does not have any complaints. No shortness of breath, cough, chest pain, fevers, chills, nausea, vomiting, or francois rrhea. Sepsis Event Evaluation Height, Weight, BMI Height: 5'6.00" Weight: 118lbs. 0.5oz. 53.701388tv; 40.00 BMI Method:Estimated Exam Exam Vital Signs Date Time Temp Pulse Resp B/P (MAP) Pulse Ox O2 Delivery O2 Flow Rate FiO2 08/03/19 08:00 37.1 72 18 129/72 (91) 99 Nasal Cannula 3.00 08/03/19 07:00 68 08/03/19 06:55 Nasal Cannula 08/03/19 06:51 65 21 95 50.00 08/03/19 04:00 37.1 76 16 119/65 (83) 98 NIV Bilevel 08/03/19 03:17 70 15 97 50.00 08/03/19 01:00 68 08/03/19 00:00 37.0 71 24 117/69 (85) 98 NIV Bilevel 08/02/19 22:26 74 21 96 50.00 08/02/19 21:00 Nasal Cannula 2.00 08/02/19 19:38 37.0 78 24 130/72 (91) 96 Nasal Cannula 2.00 08/02/19 19:00 79 08/02/19 16:00 37.2 93 24 142/74 (96) 95 Nasal Cannula 2.00 08/02/19 14:43 91 Nasal Cannula 2.00 08/02/19 12:53 114 08/02/19 11:28 37.0 98 18 130/65 (86) 94 High Flow N/C 2.00 08/02/19 10:47 88 Nasal Cannula 2.00 I & O 08/03/19 07:00 Intake Total 1650 ml Output Total 1700 ml Balance -50 ml Height & Weight Height: 5'6.00" Weight: 118lbs. 0.5oz. 53.876439dr; 40.00 BMI Method:Estimated General Appearance: No Apparent Distress, WD/WN, Chronically ill, Obese HEENT: PERRL/EOMI Neck: Non Tender, Supple Respiratory: No Accessory Muscle Use, No Respiratory Distress, Decreased Breath Sounds Cardiovascular: Regular Rate, Rhythm Capillary Refill: Less Than 3 Seconds Peripheral Pulses: 2+ Radial Pulses (R), 2+ Radial Pulses (L) Gastrointestinal: non tender, soft Extremity: Pedal Edema (L>R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: Alert, Oriented x3 Skin: Normal Color, Warm/Dry Lymphatic: No Adenopathy Results Lab Laboratory Tests 08/02/19 04:35 08/03/19 03:15 Radiology Chest Xray 08/03/19 IMPRESSION: Left basilar infiltrate and pleural fluid persists but does appear to be improved when compared with the examination one day earlier. Assessment/Plan Assessment/Plan Left large pleural effusion r/o cancer - Doubt from CHF since it is left sided -S/P thoracentesis 07/31/19 -exudative: serum total protein 6.4 pleural total protein 3.7 -Micro: NGTD -Path: Negative for malignancy. Reactive mesothelial cells and inflammatory cells. -CT shows mediastinal lymphadenopathy which is indeterminate. -reactive lymph nodes versus lymphoma -Furosemide 40mg BID -Maint Mechanic bump 08/03, consider holding -Echo 07/31/19 LVEF 55-65% Oxygen dependent COPD -quit smoking in 1999 -13pk/yr hx of tobacco use -Duoneb Q4RT and Q2PRN Afib with RVR - Now Converted to sinus -Diltiazem 180mg daily -Dronedarone 400mg BID DM type II -Jardiance 10mg -Levemir 30U HS -Trulia Anemia -Postmenopausal bleeding -s/p D&C with Dr. An -Positive fecal occult -surgery consulted -EGD and colonoscopy 08/02/19 -Pt. refuses transfusion due to roman catholic beliefs AMNA PATEL DO 08/03/19 1100: Subjective Time Seen by a Provider: 10:59 Subjective/Events-last exam no complications noted. Exam Exam General Appearance: No Apparent Distress, WD/WN, Chronically ill, Obese HEENT: PERRL/EOMI Neck: Non Tender, Supple Respiratory: No Accessory Muscle Use, No Respiratory Distress, Decreased Breath Sounds Cardiovascular: Regular Rate, Rhythm Gastrointestinal: non tender, soft Extremity: Pedal Edema (L>R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: Alert, Oriented x3 Skin: Normal Color, Warm/Dry Lymphatic: No Adenopathy Assessment/Plan Assessment/Plan Left large pleural effusion r/o cancer - Doubt from CHF since it is left sided -S/P thoracentesis 07/31/19 -exudative: serum total protein 6.4 pleural total protein 3.7 -Micro: NGTD -Path: Negative for malignancy. Reactive mesothelial cells and in flammatory cells. -CT shows mediastinal lymphadenopathy which is indeterminate. -reactive lymph nodes versus lymphoma -Furosemide 40mg BID -Maint Mechanic bump 08/03, consider holding -Echo 07/31/19 LVEF 55-65% Oxygen dependent COPD -quit smoking in 1999 -13pk/yr hx of tobacco use -Duoneb Q4RT and Q2PRN Afib with RVR - Now Converted to sinus -Diltiazem 180mg daily -Dronedarone 400mg BID DM type II -Jardiance 10mg -Levemir 30U HS -Trulia Anemia -Postmenopausal bleeding -s/p D&C with Dr. An -Positive fecal occult -surgery consulted -EGD and colonoscopy 08/02/19 -Pt. refuses transfusion due to roman catholic beliefs Supervisory-Addendum Brief Verification & Attestation Participated in pt care: history Personally performed: exam, history Care discussed with: Medical Student Procedures: n/a Verification and Attestation of Medical Student E/M Service A medical student performed and documented this service in my presence. I reviewed and verified all information documented by the medical student and made modifications to such information, when appropriate. I personally performed the physical exam and medical decision making. Amna Patel, Aug 23, 2019,07:02 CALVIN FUENTES MED STUDENT Aug 03, 2019 09:36 AMNA HOLM DO Aug 03, 2019 11:00 POS
[2019-08-03] MEDS ORDERED: OXC5T PO ×2 (10:03)
--- NOTE | 2019-08-03 10:04 | Discharge Inst-Skilled Nursing ---
Discharge Inst-Skilled NF Reconcile Patient Problems Problems Reviewed?: Yes Chief Complaint Patient presents to ER by private conveyance with chief complaint of feeling lightheaded short of breath and oxygen sats 84% on 4 L by nasal cannula which is her baseline. She was a postop appointment with Dr. An after a D&C for part of her outpatient workup of anemia and postmenopausal endometrial bleeding. She is 2 weeks out. She is on Eliquis for atrial Fibrillation and has a history of atrial fibrillation with rapid ventricular response. She is known to Dr. Calderon. She lives at the [facility] and is accompanied by her caregiver. She has a history of stroke and coronary disease. She denies any chest pain. She also has a history of baseline COPD but denies any wheezing. She is known to Dr. Forman, [facility].she has a past history of aspiration pneumonitis secondary to dysphasia from stroke and left sided hemiparesis. This morning she is sleeping comfortably having converted back to sinus rhythm after initiation of Cardizem IV. She is being switched to oral therapy. Patient Instructions Patient Problems: GIB AF ANKIT Goal: Independent living Consult/Follow Up/Orders Follow Up Appt.: [facility] rounds Skilled NF Admit to: [facility] Certification (SNF) I certify that SNF services are required to be given on an inpatient basis because of the above named patient's need for penitentiary care on a continuing basis for the conditions(s) for which he/she was receiving inpatient hospital services prior to his/her transfer to the SNF. Jail Facility Order: Nursing Services, Stereo Compiler-Evaluate & Treat, Physical Therapy-Evaluate & Treat, Speech Language-Evaluate & Treat, Wound Care-Eval/Treat Oxygen Delivery Method: Nasal Cannula Discharge Diet: Cardiac Diet Daily Activity as Tolerated: Yes Resuscitation Status: Full Code New & Resume Previous Orders Continued Medications: Acetaminophen (Acetaminophen) 500 Mg Tablet 1000 MG PO Q6H PRN for PAIN-MILD OR TEMPATURE, TAB Albuterol Sulfate (Albuterol Sulfate) 2.5 Mg/3 Ml Vial.neb 2.5 MG NEB Q4H PRN for SHORTNESS OF BREATH, EA Amlodipine Besylate (Amlodipine Besylate) 5 Mg Tablet 5 MG PO DAILY, TAB HOLD IF SBP<110 Aspirin (Aspirin EC) 81 Mg Tablet.dr 81 MG PO BID, TAB Atorvastatin Calcium (Atorvastatin Calcium) 40 Mg Tablet 40 MG PO HS, TAB B Complex with Vitamin C (Super B Complex-Vitamin C) 1 Each Tablet 1 TAB PO DAILY, TAB Bethanechol Chloride (Urecholine) 10 Mg Tablet 10 MG PO BID, TAB Bisacodyl (Bisacodyl) 10 Mg Supp.rect 10 MG RC DAILY PRN for CONSTIPATION-4TH LINE, SUPP.RECT [Blood Sugar 360] () 1 CAP PO UD PRN for BLOOD SUGAR MAINTENANCE, CAP Budesonide/Formoterol Fumarate (Symbicort 160-4.5 Mcg Inhaler) 10.2 Gm Hfa.aer.ad 2 PUFF IH BID, INHALER Cholecalciferol (Vitamin D) 5,000 Unit Capsule 5000 UNIT PO HS, CAP Cinnamon Bark (Cinnamon) 500 Mg Capsule 1000 MG PO DAILY, CAP TAKES 2 (500 MG) CAPSULES Citalopram Hydrobromide (Citalopram HBr) 10 Mg Tablet 10 MG PO DAILY, TAB Cranberry Extract (Cranberry) 500 Mg Tablet 1000 MG PO DAILY, TAB [digize oil] () TOP UD PRN for DIGESTIVE DIFFICULTIES, EA MAY BE USED TOPICALLY OR DABBED INSIDE MOUTH ON CHEEK, KEEP AT BEDSIDE AND SELF ADMINISTER FOR DIGESTIVE DIFFICULTIES. Diltiazem HCl (Diltiazem ER) 180 Mg Tab.er.24h 180 MG PO DAILY, TAB Docusate Sodium (Colace) 100 Mg Capsule 100 MG PO BID, CAP Dronedarone HCl (Multaq) 400 Mg Tablet 400 MG PO BID, TAB Dulaglutide (Trulicity) 1.5 Mg/0.5 Ml Pen.injctr 1.5 MG SQ We, EA Empagliflozin (Jardiance) 10 Mg Tablet 10 MG PO DAILY, TAB Ferrous Sulfate (Iron) 325 Mg Tablet 325 MG PO DAILY, TAB Fluticasone Propionate (Fluticasone Propionate) 16 Gm [place].susp 2 SPRAYS NS DAILY, EA Furosemide (Furosemide) 40 Mg Tablet 40 MG PO BID, TAB Gabapentin (Gabapentin) 300 Mg Capsule 300 MG PO BID, CAP Gluc Angulo/Chondro Angulo A/Vit C/Mn (Glucosamine Chondroitin Tab) 1 Each Tablet 2 TAB PO DAILY, TAB Guaifenesin/Dextromethorphan (Lorraine-Tussin Dm Syrup) 473 Ml Syrup 10 ML PO Q4H PRN for COUGH, ML Insulin Detemir (Levemir Flextouch) 100 Unit/1 Ml Insuln.pen 35 UNIT SQ HS, EA Insulin Detemir (Levemir Flextouch) 100 Unit/1 Ml Insuln.pen 40 UNIT SQ DAILY, EA Lidocaine (Lidocare) 1 Each Adh..patch 1 PATCH TD DAILY, PATCH 4% APPLY TO UPPER RIGHT THIGH Magnesium Hydroxide (Milk of Magnesia) 400 Mg/5 Ml Oral.susp 30 ML PO DAILY PRN for CONSTIPATION-7TH LINE, ML Megestrol Acetate (Megestrol Acetate) 40 Mg Tablet 80 MG PO DAILY, TAB TAKES 2 (40MG) TABLETS Melatonin (Melatonin) 3 Mg Tablet 3 MG PO HS, TAB Metoprolol Succinate (Metoprolol Succinate) 100 Mg Tab.er.24h 100 MG PO DAILY, TAB HOLD FOR SYSTOLIC BP <100 AND HEART RATE <60 Miconazole Nitrate (Miconazole Nitrate) 10 Gm Powder TOP BID, EA APPLY TO GROIN AND UNDER BREASTS Multivits W-Fe,Other Min/Lut (Essential Balance Tablet) 1 Each Tablet 1 TAB PO TID, TAB [place]mond[place]-3/Dha/Epa/Fish Oil ([place] 3 500 Softgel) 1 Each Capsule 2 CAP PO DAILY, CAP Oxycodone Hcl (Oxycodone IR) 5 Mg Tab 5 MG PO Q4H PRN for PAIN-SEVERE (8-10), #20 TAB (This prescription has been renewed) Pantoprazole Sodium (Pantoprazole Sodium) 40 Mg Tablet.dr 40 MG PO 1400, TAB Phenyleph/Mineral Oil/Petrolat (Gs Hemorrhoidal Ointment) 57 Gm Oint.appl RC Q12H PRN for HEMORRHOIDS, TUBE Sodium Chloride ([place]) 104 Ml [place] 2 SPRAYS NS Q4H PRN for DRY NOSE, SPRAY Sucralfate (Carafate) 1 Gm Tablet 1 GM PO QID, TAB Valerian Root (Valerian Root) 500 Mg Capsule 530 MG PO DAILY PRN for ANXIETY, CAP Discontinued Medications: Apixaban (Eliquis) 5 Mg Tablet 5 MG PO BID, TAB Nitrofurantoin Monohyd/M-Cryst (Nitrofurantoin Baxter-Mcr 100 mg) 100 Mg Capsule 100 MG PO BID for 14 Days, CAP 14 DAY THERAPY END DATE 08-01-19 Fadumo Rush Aug 03, 2019 10:03 FADUMO RUSH DO Aug 03, 2019 10:04 POS
--- NOTE | 2019-08-03 10:35 | NUR ---
DISCHARGE PLANNING: Patient is discharged today to her previous placement at [facility]. I have called and spoken to [place] regarding this and to arrange for transportation. She will be transported around NOON. I have requested they bring a w/c and oxygen. Unfinalized order sent and with the understanding that FINALIZED orders will be sent once complete. Nurse is aware of discharge and time of transport.
--- NOTE | 2019-08-03 10:52 | Discharge Summary ---
[facility] 08/03/19 1052: Diagnosis/Chief Complaint Date of Admission Jul 28, 2019 at 11:30 Date of Discharge Discharge Date: Aug 03, 2019 Admission Diagnosis 1. Atrial fibrillation with rapid ventricular response currently resolved will switch to oral diltiazem. 2. 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 Discussed feeding only when alert sitting upright and monitoring for any evidence for coughing or choking. 3. Congestive heart failure secondary to number 1 improving due to rate control. Primary Care Roberto Ramírez MD Discharge Diagnosis (1) Normocytic anemia Status: Chronic (2) Atrial fibrillation with rapid ventricular response Status: Acute Discharge Summary Discharge Physical Exam Allergies: Coded Allergies: sulfamethoxazole (Verified Allergy, Unknown, 10/13/17) trimethoprim (Verified Allergy, Unknown, 10/13/17) Vitals & I&Os Vital Signs Date Time Temp Pulse Resp B/P (MAP) Pulse Ox O2 Delivery O2 Flow Rate FiO2 08/03/19 08:00 37.1 72 18 129/72 (91) 99 Nasal Cannula 3.00 07/31/19 13:15 40 General Appearance: No Apparent Distress, Chronically ill, Obese Respiratory: Chest Non Tender, No Accessory Muscle Use, No Respiratory Distress Cardiovascular: Regular Rate, Rhythm, No Murmur, Normal Peripheral Pulses Extremity: Non Tender, No Calf Tenderness, No Pedal Edema Skin: Normal Color, Warm/Dry Neurologic/Psychiatric: Alert, Oriented x3, Normal Mood/Affect Hospital Course Patient presented to ER with chief complaint of feeling lightheaded short of breath and oxygen sats 84% on 4 L by nasal cannula which is her baseline.She was admitted to the ICU for A fib with RVR with a history of CHF and COPD. She was found to have a pleural effusion that was tapped and drained. She began to recover and return to her baseline lung function requiring 3L O2 nasal cannula to maintain saturation. She has a history of anemia and was found to have a positive stool occult blood. Surgery was consulted and they performed an EGD/Colonoscopy with removal of 4 polyps. She was then discharged back to [facility] from which she came. Her oral anti-coagulation was reviewed and discontinued due to bleeding risk outweighing the benefits, will defer to PCP to make decision to restart anti-coagulants. Labs (last 24 hrs) Laboratory Tests 08/02/19 11:20: Glucometer 202H 08/02/19 16:14: Glucometer 143H 08/03/19 03:15: White Blood Count 7.5, Red Blood Count 3.62L, Hemoglobin 8.8L, Hematocrit 30L, Mean Corpuscular Volume 82, Mean Corpuscular Hemoglobin 24L, Mean Corpuscular Hemoglobin Concent 30L, Red Cell Distribution Width 17.0H, Platelet Count 295, Mean Platelet Volume 9.0, Neutrophils (%) (Auto) 74, Lymphocytes (%) (Auto) 14, Monocytes (%) (Auto) 8, Eosinophils (%) (Auto) 4, Basophils (%) (Auto) 0, Neutrophils # (Auto) 5.6, Lymphocytes # (Auto) 1.1, Monocytes # (Auto) 0.6, Eosinophils # (Auto) 0.3, Basophils # (Auto) 0.0, Sodium Level 141, Potassium Level 3.3L, Chloride Level 106, Carbon Dioxide Level 24, Anion Gap 11, Blood Urea Nitrogen 11, Creatinine 1.20, Estimat Glomerular Filtration Rate 45, BUN/Creatinine Ratio 9, Glucose Level 115H, Calcium Level 8.7, Phosphorus Level 3.9, Magnesium Level 1.6 08/03/19 05:17: Glucometer 126H Microbiology 07/31/19 Gram Stain, Resulted Pending 07/31/19 Body Fluid Culture - Preliminary, Resulted No growth 07/28/19 MRSA Screen - Final, Complete Patient resulted labs reviewed. Pending Labs Laboratory Tests 08/03/19 03:15: White Blood Count 7.5, Red Blood Count 3.62, Hemoglobin 8.8, Hematocrit 30, Mean Corpuscular Volume 82, Mean Corpuscular Hemoglobin 24, Mean Corpuscular Hemoglobin Concent 30, Red Cell Distribution Width 17.0, Platelet Count 295, Taisha n Platelet Volume 9.0, Neutrophils (%) (Auto) 74, Lymphocytes (%) (Auto) 14, Monocytes (%) (Auto) 8, Eosinophils (%) (Auto) 4, Basophils (%) (Auto) 0, Neutrophils # (Auto) 5.6, Lymphocytes # (Auto) 1.1, Monocytes # (Auto) 0.6, Eosinophils # (Auto) 0.3, Basophils # (Auto) 0.0, Sodium Level 141, Potassium Level 3.3, Chloride Level 106, Carbon Dioxide Level 24, Anion Gap 11, Blood Urea Nitrogen 11, Creatinine 1.20, Estimat Glomerular Filtration Rate 45, BUN/Creatinine Ratio 9, Glucose Level 115, Calcium Level 8.7, Phosphorus Level 3.9, Magnesium Level 1.6 08/03/19 05:17: Glucometer 126 Discharge Home Medications: Active Scripts Active Oxycodone IR (Oxycodone HCl) 5 Mg Tab 5 Mg PO Q4H PRN Reported Megestrol Acetate 40 Mg Tablet 80 Mg PO DAILY TAKES 2 (40MG) TABLETS Nitrofurantoin [place]-Mcr 100 mg (Nitrofurantoin Monohyd/M-Cryst) 100 Mg Capsule 100 Mg PO BID 14 Days 14 DAY THERAPY END DATE 08-01-19 Lidocare (Lidocaine) 1 Each Adh..patch 1 Patch TD DAILY 4% APPLY TO UPPER RIGHT THIGH Levemir Flextouch (Insulin Detemir) 100 Unit/1 Ml Insuln.pen 40 Unit SQ DAILY Carafate (Sucralfate) 1 Gm Tablet 1 Gm PO QID Multaq (Dronedarone HCl) 400 Mg Tablet 400 Mg PO BID Amlodipine Besylate 5 Mg Tablet 5 Mg PO DAILY HOLD IF SBP<110 Furosemide 40 Mg Tablet 40 Mg PO BID Diltiazem ER (Diltiazem HCl) 180 Mg Tab.er.24h 180 Mg PO DAILY Atorvastatin Calcium 40 Mg Tablet 40 Mg PO HS Gs Hemorrhoidal Ointment (Phenyleph/Mineral Oil/Petrolat) 57 Gm Oint.appl RC Q12H PRN Milk of Magnesia (Magnesium Hydroxide) 400 Mg/5 Ml Oral.susp 30 Ml PO DAILY PRN Albuterol Sulfate 2.5 Mg/3 Ml Vial.neb 2.5 Mg NEB Q4H PRN Eliquis (Apixaban) 5 Mg Tablet 5 Mg PO BID Miconazole Nitrate 10 Gm Powder TOP BID APPLY TO GROIN AND UNDER BREASTS Pantoprazole Sodium 40 Mg Tablet. 40 Mg PO 1400 Jardiance (Empagliflozin) 10 Mg Tablet 10 Mg PO DAILY [place] 3 500 Softgel ([place]-3/Dha/Epa/Fish Oil) 1 Each Capsule 2 Cap PO DAILY Urecholine (Bethanechol Chloride) 10 Mg Tablet 10 Mg PO BID Aspirin EC (Aspirin) 81 Mg Tablet. 81 Mg PO BID [place]sin Dm Syrup (Guaifenesin/Dextromethorphan) 473 Ml Syrup 10 Ml PO Q4H PRN Trulicity (Dulaglutide) 1.5 Mg/0.5 Ml Pen.injctr 1.5 Mg SQ WE Gabapentin 300 Mg Capsule 300 Mg PO BID Colace (Docusate Sodium) 100 Mg Capsule 100 Mg PO BID Iron (Ferrous Sulfate) 325 Mg Tablet 325 Mg PO DAILY Fluticasone Propionate 16 Gm [place].susp 2 Sprays NS DAILY Glucosamine Chondroitin Tab (Gluc Angulo/Chondro Angulo A/Vit C/Mn) 1 Each Tablet 2 Tab PO DAILY Melatonin 3 Mg Tablet 3 Mg PO HS Cranberry (Cranberry Extract) 500 Mg Tablet 1,000 Mg PO DAILY Super B Complex-Vitamin C (B Complex with Vitamin C) 1 Each Tablet 1 Tab PO DAILY Citalopram HBr (Citalopram Hydrobromide) 10 Mg Tablet 10 Mg PO DAILY [Blood Sugar 360] 1 Cap PO UD PRN Valerian Root 500 Mg Capsule 530 Mg PO DAILY PRN Bisacodyl 10 Mg Supp.rect 10 Mg RC DAILY PRN Acetaminophen 500 Mg Tablet 1,000 Mg PO Q6H PRN [place] (Sodium Chloride) 104 Ml [place] 2 Sprays NS Q4H PRN [digize oil] TOP UD PRN MAY BE USED TOPICALLY OR DABBED INSIDE MOUTH ON CHEEK, KEEP AT BEDSIDE AND SELF ADMINISTER FOR DIGESTIVE DIFFICULTIES. Cinnamon (Cinnamon Bark) 500 Mg Capsule 1,000 Mg PO DAILY TAKES 2 (500 MG) CAPSULES Symbicort 160-4.5 Mcg Inhaler (Budesonide/Formoterol Fumarate) 10.2 Gm Hfa.aer.ad 2 Puff IH BID Levemir Flextouch (Insulin Detemir) 100 Unit/1 Ml Insuln.pen 35 Unit SQ HS Essential Balance Tablet (Multivits W-Fe,Other Min/Lut) 1 Each Tablet 1 Tab PO TID Metoprolol Succinate 100 Mg Tab.er.24h 100 Mg PO DAILY HOLD FOR SYSTOLIC BP <100 AND HEART RATE <60 Vitamin D (Cholecalciferol) 5,000 Unit Capsule 5,000 Unit PO HS Instructions to patient/family Please see electronic discharge instructions given to patient. Clinical Quality Measures DVT/VTE Risk/Contraindication: Risk Factor Score Per Nursin RFS Level Per Nursing on Admit: 4+=Very High FADUMO RUSH DO 11/21/19 2121: Diagnosis/Chief Complaint Discharge Diagnosis (1) Atrial fibrillation with rapid ventricular response Status: Acute (2) Normocytic anemia Status: Chronic (3) ANKIT (obstructive sleep apnea) Status: Chronic (4) Chronic kidney disease Status: Chronic (5) Refusal of blood transfusions as patient is [employer] Discharge Summary Discharge Physical Exam Allergies: Coded Allergies: sulfamethoxazole (Verified Allergy, Unknown, 10/13/17) trimethoprim (Verified Allergy, Unknown, 10/13/17) General Appearance: No Apparent Distress, WD/WN, Chronically ill, Obese Respiratory: Lungs Clear Cardiovascular: Regular Rate, Rhythm Neurologic/Psychiatric: Alert, Oriented x3 Hospital Course Was the Problem List Reviewed?: Yes Hospital course: Pt had a lengthy hospital course for seven days, she was admitted for severe anemia, and A-FIB with RVR. Pt was managed in the ICU for a few days, became stabilized, she is a [employer] so she does not receive blood product, but Hgb remains stable at 8.4. Hemocult was positive, EGD and colonoscopy was performed, revealing evidence of some colon polyps and some mild gastritis. Pt will have oral anticoagulation held until PCP addresses this because the risk of bleeding to a [employer] Pt without blood product support outweighed the benefits of stroke prophylaxis. Overall bed-bound status and chronic debility gave rise to a very poor prognosis long-term. Discussion & Recommendations Discharge Planning: <30 minutes discharge planning Supervisory-Addendum Brief Verification & Attestation Participated in pt care: history, MDM, physical Personally performed: exam, history, MDM, supervision of care Care discussed with: Medical Student Procedures: n/a Results interpretation: Verified all documentation Verification and Attestation of Medical Student E/M Service A medical student performed and documented this service in my presence. I reviewed and verified all information documented by the medical student and made modifications to such information, when appropriate. I personally performed the physical exam and medical decision making. Fadumo Rush, Aug 03, 2019,21:21 [facility] Aug 03, 2019 10:52 FADUMO MALLOY DO Aug 03, 2019 21:21 POS
--- NOTE | 2019-08-03 19:51 | OPERATIVE REPORT ---
DATE OF SERVICE: 08/02/2019 PREOPERATIVE DIAGNOSIS: Occult positive stool. POSTOPERATIVE DIAGNOSES: Small hiatal hernia, gastritis, colon polyps. PROCEDURE: EGD with biopsies, colonoscopy with hot biopsy polypectomy x4. SURGEON: Lou Herrera DO ANESTHESIA: Per MDA. ESTIMATED BLOOD LOSS: None. COMPLICATIONS: None. INDICATIONS: The patient is a 68-year-old female with occult positive stool. She understands risks and benefits of procedure and wished to proceed with procedure. Consent was signed in the chart. DESCRIPTION OF PROCEDURE: The patient was taken to the endoscopy suite, placed in left lateral recumbent position. Timeout was performed. Scope was inserted in mouth, down the esophagus, stomach and into the duodenum. There were no polyps, masses, or ulcerations within the duodenum. Scope was slowly retracted back into the stomach where there was some inflammation and some gastric polyps present. Biopsy of the antrum was obtained and the scope was retroflexed noting a small hiatal hernia, some inflammation as well. The scope was then slowly retracted back. A biopsy of this area was obtained in the proximal stomach. Scope was then slowly retracted back with minimal inflammation around this area in the proximal stomach. Scope was then slowly retracted back to the distal esophagus, which had a fairly normal appearance. No polyps, masses or ulcerations. Scope was then slowly retracted back noting no other pathology. Digital rectal exam was performed. No palpable polyps, masses or ulcerations. Scope was inserted in the rectum, advanced all the way to the cecum with minimal difficulty. Prep was adequate with irrigation and suction. There are no polyps, mass or ulceration in the cecum. In the ascending colon, a small polyp was present, which hot biopsy polypectomy was performed. Scope was then continuously retracted back noting another polyp in the hepatic flexure, which hot biopsy polypectomy was performed. Scope was then continuously retracted back into the transverse colon, which another polyp was present, which hot biopsy polypectomy was performed. Scope was then continuously retracted back in sigmoid colon, which hot biopsy polypectomy was performed. No polyps, mass or ulceration in the descending colon. Once in the rectum, scope was inserted and withdrawn multiple times and retroflexed noting no other pathology. Scope was returned to its normal position, slowly withdrawn until completely removed. The patient tolerated procedure well without any complications. She was taken to recovery room in stable condition. RECOMMENDATIONS: The patient will follow up on biopsies. Recommend repeat colonoscopy in 3 to 5 years. Any issues before that be seen at that time. We will await biopsies to make any changes at this time. Job ID: [id number] DocumentID: [id number] Dictated Date: 08/03/2019 17:13:10 Software Computer Specialist Date: 08/03/2019 19:51:21 Dictated By: LOU HERRERA DO
--- NOTE | 2019-08-04 08:11 | Physician Query Clarification ---
PQ-Further Specificity Admission/Discharge Admission Date: Jul 28, 2019 at 11:30 Discharge Date: Aug 03, 2019 at 12:25 The medical record reflects the following clinical scenario: History/Risk Factors: HTN, CHF, CKD, Jehovah Witness Clinical Findings: Hgb 7.9, heme + stools Treatment: polypectomy X4 colon, biopsies stomach Question: Can you further specify the etiology of the heme + stools per the clinical indicators above? Please document a response in the Progress Notes or Discharge Summary. 1. Gastritis 2. colon polyps 3. Other, with explanation of the clinical findings. 4. Clinically undetermined, no explanation for the clinical findings. PHYSICIAN RESPONSE Can you specify per above: Clinically undetermined (no active bleeding visualized) Please remember a lack of response to the above will prompt a phone page by CDI/Coding staff. In responding to this query, please exercise your independent professional judgment. The purpose of this communication is to more accurately reflect the complexity of your patients condition. The fact that a question is asked does not imply that any particular answer is desired or expected. Thank you for your timely response to this clarification. Requestors name: Oscar THIS PHYSICIAN QUERY FORM IS A PERMANENT PART OF THE MEDICAL RECORD OSCAR HERNADEZ Aug 04, 2019 08:11 LOU PLASCENCIA DO Aug 15, 2019 19:53 POS
[2019-08-15] MEDS ORDERED: LINE600T5 PO ×2 (10:01)
[2019-08-15] MEDS ORDERED: ENOX40DI8 SC ×2 (10:01)
[2019-08-15] MEDS ORDERED: POTA10TA6 PO ×2 (10:01)
[2019-08-15] MEDS ORDERED: CEFD300C3 PO ×2 (10:01)
== END 2019-08-03 12:25 | DRG 291 ==
LOC: EDUNIT# 10:06 → ER 10:08 → ICU 11:30 → 4TH 07-31 09:27
PROVIDERS: ADMIT Family Medicine; ATTEND Family Medicine
PROC: 0W993ZX Drainage of Right Pleural Cavity, Percutaneous Approach, Diagnostic (ICD-10-PCS; principal; 2019-07-31)
PROC: 0DBL8ZX Excision of Transverse Colon, Via Natural or Artificial Opening Endoscopic, Diagnostic (ICD-10-PCS; 2019-08-02)
PROC: 0DBN8ZX Excision of Sigmoid Colon, Via Natural or Artificial Opening Endoscopic, Diagnostic (ICD-10-PCS; 2019-08-02)
PROC: 0DB68ZX Excision of Stomach, Via Natural or Artificial Opening Endoscopic, Diagnostic (ICD-10-PCS; 2019-08-02)
PROC: 0DB78ZX Excision of Stomach, Pylorus, Via Natural or Artificial Opening Endoscopic, Diagnostic (ICD-10-PCS; 2019-08-02)
PROC: 0DBK8ZX Excision of Ascending Colon, Via Natural or Artificial Opening Endoscopic, Diagnostic (ICD-10-PCS; 2019-08-02 08:30)
DX: I13.0 Hypertensive heart and chronic kidney disease with heart failure and stage 1 through stage 4 chronic kidney disease, or unspecified chronic kidney disease (principal); I50.33 Acute on chronic diastolic (congestive) heart failure; J90 Pleural effusion, not elsewhere classified; N18.4 Chronic kidney disease, stage 4 (severe); I48.0 Paroxysmal atrial fibrillation; J96.00 Acute respiratory failure, unspecified whether with hypoxia or hypercapnia; J18.9 Pneumonia, unspecified organism; N17.9 Acute kidney failure, unspecified; J44.0 Chronic obstructive pulmonary disease with (acute) lower respiratory infection; E66.2 Morbid (severe) obesity with alveolar hypoventilation; Z68.41 Body mass index [BMI] 40.0-44.9, adult; I69.354 Hemiplegia and hemiparesis following cerebral infarction affecting left non-dominant side; D50.0 Iron deficiency anemia secondary to blood loss (chronic); R19.5 Other fecal abnormalities; K64.9 Unspecified hemorrhoids; I25.10 Atherosclerotic heart disease of native coronary artery without angina pectoris; E78.00 Pure hypercholesterolemia, unspecified; E11.9 Type 2 diabetes mellitus without complications; I69.391 Dysphagia following cerebral infarction; I69.321 Dysphasia following cerebral infarction; N32.81 Overactive bladder; K21.9 Gastro-esophageal reflux disease without esophagitis; F41.9 Anxiety disorder, unspecified; F32.9 Major depressive disorder, single episode, unspecified; K59.09 Other constipation; R59.0 Localized enlarged lymph nodes; K29.70 Gastritis, unspecified, without bleeding; K63.5 Polyp of colon; K31.7 Polyp of stomach and duodenum; Z99.81 Dependence on supplemental oxygen
CPT/HCPCS: 36415; 51702; 71045; 71260; 80048; 80053; 80061; 80076; 82274; 82945; 82962; 83615; 83735; 83874; 83880; 83986; 84100; 84157; 84484; 85025; 85610; 85730; 87070; 87081; 87205; 88112; 88305; 89051; 93005; 93041; 93306; 94640; 94660; 94760; 96361; 96374; 96375

== ENCOUNTER 2019-08-12 09:31 | Inpatient (IN) | payer MEDICARE, MEDICAID ==
[~2019-08-12] VITALS: Ht 167.7 cm; Wt 115.0 kg
[~2019-08-12 09:31] MED LIST changes: +LIDO1ADH41 TD; +NITR100C10 PO
[2019-08-12] MEDS ORDERED: NS IV 1000 ML 1,000 ML IV SCH (09:44)
[2019-08-12] MEDS ORDERED: VANCOMYCIN INJECTION 1,000 MG in NS (IVPB) 250 ML IV ONE (09:45)
[2019-08-12] MEDS ORDERED: PIPERACILLIN SODIUM/TAZOBACTAM 4.5 GM in NS (IVPB) 100 ML IV ONE (09:45)
--- NOTE | 2019-08-12 09:52 | ED Fever ---
History of Present Illness General Chief Complaint: General Problems/Pain Stated Complaint: L LEG SWELLING / FEVER Source: patient Exam Limitations: no limitations History of Present Illness Date Seen by Provider: Aug 12, 2019 Time Seen by Provider: 09:30 Initial Comments Patient presents by private conveyance from the [facility] with family and caregiver and chief complaint of fever and lethargy per staff. Patient has 101.7 fever this morning and was given Tylenol. She is also noted to have some increased pain and redness and swelling in her left lower ex tremity. She has a history of recurrent cellulitis. She's not having any shortness of breath or cough. She's not having any dysuria but she says she's having a hard time urinating this morning but was able to easily pass a normal bowel movement. No belly pain. She has a history of CHF and 5.5 pounds weight gain over the past week. She has tenderness erythema. She has a history of s troke with left-sided residual weakness. She has a history of COPD and uses oxygen 2 L by nasal cannula at night to sleep. Allergies and Home Medications Allergies Coded Allergies: sulfamethoxazole (Verified Allergy, Unknown, 10/13/17) trimethoprim (Verified Allergy, Unknown, 10/13/17) Home Medications Acetaminophen 500 Mg Tablet, 1,000 MG PO Q6H PRN for PAIN-MILD OR TEMPATURE, (Reported) Albuterol Sulfate 2.5 Mg/3 Ml Vial.neb, 2.5 MG NEB Q4H PRN for SHORTNESS OF BREATH, (Reported) Amlodipine Besylate 5 Mg Tablet, 5 MG PO DAILY, (Reported) HOLD IF SBP<110 Aspirin 81 Mg Tablet.dr, 81 MG PO BID, (Reported) Atorvastatin Calcium 40 Mg Tablet, 40 MG PO HS, (Reported) B Complex with Vitamin C 1 Each Tablet, 1 TAB PO DAILY, (Reported) Bethanechol Chloride 10 Mg Tablet, 10 MG PO BID, (Reported) Bisacodyl 10 Mg Supp.rect, 10 MG RC DAILY PRN for CONSTIPATION-4TH LINE, (Reported) Budesonide/Formoterol Fumarate 10.2 Gm Hfa.aer.ad, 2 PUFF IH BID, (Reported) Cholecalciferol 5,000 Unit Capsule, 5,000 UNIT PO HS, (Reported) Cinnamon Bark 500 Mg Capsule, 1,000 MG PO DAILY, (Reported) TAKES 2 (500 MG) CAPSULES Citalopram Hydrobromide 10 Mg Tablet, 10 MG PO DAILY, (Reported) Cranberry Extract 500 Mg Tablet, 1,000 MG PO DAILY, (Reported) Diltiazem HCl 180 Mg Tab.er.24h, 180 MG PO DAILY, (Reported) Docusate Sodium 100 Mg Capsule, 100 MG PO BID, (Reported) Dronedarone HCl 400 Mg Tablet, 400 MG PO BID, (Reported) Dulaglutide 1.5 Mg/0.5 Ml Pen.injctr, 1.5 MG SQ We, (Reported) Empagliflozin 10 Mg Tablet, 10 MG PO DAILY, (Reported) Ferrous Sulfate 325 Mg Tablet, 325 MG PO DAILY, (Reported) Fluticasone Propionate 16 Gm [place].susp, 2 SPRAYS NS DAILY, (Reported) Furosemide 40 Mg Tablet, 40 MG PO BID, (Reported) Gabapentin 300 Mg Capsule, 300 MG PO BID, (Reported) Gluc Angulo/Chondro Angulo A/Vit C/Mn 1 Each Tablet, 2 TAB PO DAILY, (Reported) Guaifenesin/Dextromethorphan 473 Ml Syrup, 10 ML PO Q4H PRN for COUGH, (Reported) Insulin Detemir 100 Unit/1 Ml Insuln.pen, 35 UNIT SQ HS, (Reported) Insulin Detemir 100 Unit/1 Ml Insuln.pen, 40 UNIT SQ DAILY, (Reported) Lidocaine 1 Each Adh..patch, 1 PATCH TD DAILY, (Reported) 4% APPLY TO UPPER RIGHT THIGH Magnesium Hydroxide 400 Mg/5 Ml Oral.susp, 30 ML PO DAILY PRN for CONSTIPATION- 7TH LINE, (Reported) Megestrol Acetate 40 Mg Tablet, 80 MG PO DAILY, (Reported) TAKES 2 (40MG) TABLETS Melatonin 3 Mg Tablet, 3 MG PO HS, (Reported) Metoprolol Succinate 100 Mg Tab.er.24h, 100 MG PO DAILY, (Reported) HOLD FOR SYSTOLIC BP <100 AND HEART RATE <60 Miconazole Nitrate 10 Gm Powder, TOP BID, (Reported) APPLY TO GROIN AND UNDER BREASTS Multivits W-Fe,Other Min/Lut 1 Each Tablet, 1 TAB PO TID, (Reported) [place]-3/Dha/Epa/Fish Oil 1 Each Capsule, 2 CAP PO DAILY, (Reported) Oxycodone Hcl 5 Mg Tab, 5 MG PO Q4H PRN for PAIN-SEVERE (8-10) Prescribed by: ALEJANDRA RUSH on 08/03/19 1003 Pantoprazole Sodium 40 Mg Tablet.dr, 40 MG PO 1400, (Reported) Phenyleph/Mineral Oil/Petrolat 57 Gm Oint.appl, RC Q12H PRN for HEMORRHOIDS, (Reported) Sodium Chloride 104 Ml [place], 2 SPRAYS NS Q4H PRN for DRY NOSE, (Reported) Sucralfate 1 Gm Tablet, 1 GM PO QID, (Reported) Valerian Root 500 Mg Capsule, 530 MG PO DAILY PRN for ANXIETY, (Reported) [Blood Sugar 360] , 1 CAP PO UD PRN for BLOOD SUGAR MAINTENANCE, (Reported) [digize oil] , TOP UD PRN for DIGESTIVE DIFFICULTIES, (Reported) MAY BE USED TOPICALLY OR DABBED INSIDE MOUTH ON CHEEK, KEEP AT BEDSIDE AND SELF ADMINISTER FOR DIGESTIVE DIFFICULTIES. Patient Home Medication List Home Medication List Reviewed: Yes Review of Systems Review of Systems Constitutional: chills, fever, malaise EENTM: No ear discharge, No ear pain, No eye pain Respiratory: No cough, No phlegm, No short of breath, No wheezing Cardiovascular: No chest pain, No edema Gastrointestinal: No abdominal pain, No constipation, No diarrhea, No nausea Genitourinary: No discharge, No dysuria; hesitancy Musculoskeletal: see HPI; No back pain, No joint pain Skin: see HPI All Other Systems Reviewed Negative Unless Noted: Yes Past Aexjirf-Kmvngo-Hrneph Hx Patient Social History Alcohol Use: Denies Use Recreational Drug Use: No Smoking Status: Former Smoker Type Used: Cigarettes Former Smoker, Quit: Sep 13, 1999 2nd Hand Smoke Exposure: No Recent Foreign Travel: No Contact w/Someone Who Travel: No Recent Hopitalizations: No Immunizations Up To Date Tetanus Booster (TDap): Unknown Seasonal Allergies Seasonal Allergies: Yes Past Medical History Surgeries: Yes Joint Replacement, Nose, Orthopedic Respiratory: Yes (03/2017-REPSIRATORY ARREST DUE TO ASPIRATION WITH ASPIRATION PNEUMONIA, O2) Pneumonia, Sleep Apnea, COPD Currently Using CPAP: No Currently Using BIPAP: No Cardiac: Yes Atrial Fibrillation, Chronic Edema/Swelling, Coronary Artery Disease, High Cholesterol, Hypertension Neurological: Yes (CVA WITH LEFT SIDE FLACCID PARALYSIS, DYSPHAGIA AND DYSPHASIA) Stroke 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 Disorders: No [employer] History: Menopausal Genitourinary: Yes (OVERACTIVE BLADDER) Kidney Stones, Renal Failure Gastrointestinal: Yes (DYSPHAGIA) Gastroesophageal Reflux, Chronic Constipation, Hemorrhoids, Ulcer Musculoskeletal: Yes (paralysis left side) Arthritis Endocrine: Yes Diabetes, Insulin dep HEENT: Yes (Nasal SX; DYSPHAGIA; CHRONIC RHINITIS) Dysphagia Loss of Vision: Denies Hearing Impairment: Denies Cancer: No Psychosocial: Yes Sleep Difficulties, Anxiety, Depression Integumentary: No Blood Disorders: Yes (anemia) Adverse Reaction/Blood Tranf: No (No blood transfusions d/t TAYE) Family Medical History Completed stroke 19 FATHER G8 BROTHER Diabetes mellitus G8 BROTHER Hypertension 19 FATHER 19 MOTHER CVA, Diabetes Physical Exam Vital Signs - First Documented 08/12/19 08/12/19 09:45 09:58 Temp 36.8 Pulse 82 Resp 20 B/P (MAP) 132/61 (84) Pulse Ox 92 O2 Delivery Room Air O2 Flow Rate 2.00 Capillary Refill : Height: 5'6.00" Weight: 118lbs. 0.5oz. 53.456460wq; 40.00 BMI Method:Estimated General Appearance: mild distress, obese Eyes: Bilateral Eye Normal Inspection, Bilateral Eye PERRL, Bilateral Eye EOMI HEENT: PERRL/EOMI, normal ENT inspection, pharynx normal Respiratory: lungs clear, normal breath sounds, no respiratory distress, no accessory muscle use Cardiovascular: normal peripheral pulses, regular rate, rhythm Gastrointestinal: normal bowel sounds, non tender, soft Extremities: pedal edema, swelling (left lower extremity), other (tender erythema over the posterior medial left lower extremity calf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: no motor/sensory deficits (no new deficits. Chronic left-sided deficits noted), alert, normal mood/affect, oriented x 3, other (GCS 15) Skin: other (erythematous, indurated, tender, warm to touch skin on the posterior medial side of the left lower extremity consistent with cellulitis) Focused Exam Lactate Level 08/12/19 10:14: Lactic Acid Level 1.40 Lactic Acid Level Laboratory Tests Test 08/12/19 10:14 Lactic Acid Level 1.40 MMOL/L (0.50-2.00) Procedures/Interventions Date of ETT Placement: May 04, 2019 Time of ETT Placement: 0612 Progress/Results/Core Measures Suspected Sepsis SIRS Temperature: Pulse: Respiratory Rate: Laboratory Tests 08/12/19 10:14: White Blood Count 16.0H Blood Pressure / Mean: 08/12/19 10:14: Lactic Acid Level 1.40 Laboratory Tests 08/12/19 10:14: Creatinine 1.81H, INR Comment 1.2, Platelet Count 287, Total Bilirubin 0.4 Results/Orders Lab Results Laboratory Tests Test 08/12/19 09:50 08/12/19 10:14 Range/Units Glucometer 253 H 70-110 MG/DL White Blood Count 16.0 H 4.3-11.0 10^3/uL Red Blood Count 3.73 L 4.35-5.85 10^6/uL Hemoglobin 9.2 L 11.5-16.0 G/DL Hematocrit 30 L 35-52 % Mean Corpuscular Volume 79 L 80-99 FL Mean Corpuscular Hemoglobin 25 25-34 PG Mean Corpuscular Hemoglobin Concent 31 L 32-36 G/DL Red Cell Distribution Width 17.6 H 10.0-14.5 % Platelet Count 287 130-400 10^3/uL Mean Platelet Volume 9.2 7.4-10.4 FL Neutrophils (%) (Auto) 84 H 42-75 % Lymphocytes (%) (Auto) 10 L 12-44 % Monocytes (%) (Auto) 6 0-12 % Eosinophils (%) (Auto) 1 0-10 % Basophils (%) (Auto) 0 0-10 % Neutrophils # (Auto) 13.4 H 1.8-7.8 X 10^3 Lymphocytes # (Auto) 1.6 1.0-4.0 X 10^3 Monocytes # (Auto) 0.9 0.0-1.0 X 10^3 Eosinophils # (Auto) 0.1 0.0-0.3 10^3/uL Basophils # (Auto) 0.0 0.0-0.1 10^3/uL Neutrophils % (Manual) 86 % Lymphocytes % (Manual) 10 % Monocytes % (Manual) 2 % Eosinophils % (Manual) 2 % Anisocytosis MODERATE Microcytosis MODERATE Prothrombin Time 15.5 H 12.2-14.7 SEC INR Comment 1.2 0.8-1.4 Activated Partial Thromboplast Time 29 24-35 SEC Sodium Level 137 135-145 MMOL/L Potassium Level 3.6 3.6-5.0 MMOL/L Chloride Level 105 98-107 MMOL/L Carbon Dioxide Level 22 21-32 MMOL/L Anion Gap 10 5-14 MMOL/L Blood Urea Nitrogen 17 7-18 MG/DL Creatinine 1.81 H 0.60-1.30 MG/DL Estimat Glomerular Filtration Rate 28 BUN/Creatinine Ratio 9 Glucose Level 234 H 70-105 MG/DL Lactic Acid Level 1.40 0.50-2.00 MMOL/L Calcium Level 9.1 8.5-10.1 MG/DL Corrected Calcium 9.7 8.5-10.1 MG/DL Total Bilirubin 0.4 0.1-1.0 MG/DL Aspartate Amino Transf (AST/SGOT) 12 5-34 U/L Alanine Aminotransferase (ALT/SGPT) 14 0-55 U/L Alkaline Phosphatase 91 40-136 U/L B-Type Natriuretic Peptide 310.6 H <100.0 PG/ML Total Protein 7.0 6.4-8.2 GM/DL Albumin 3.3 3.2-4.5 GM/DL My Orders Orders - JUDITH TOBAR Cbc With Automated Diff (08/12/19 09:44) Comprehensive Metabolic Panel (08/12/19 09:44) Blood Culture (08/12/19 09:44) Sputum Culture (08/12/19:44) Urinalysis (08/12/19:44) Urine Culture (08/12/19:44) Protime With Inr (08/12/19 09:44) Partial Thromboplastin Time (08/12/19 09:44) Chest 1 View, Ap/Pa Only (08/12/19 09:44) Ed Iv/Invasive Line Start (08/12/19 09:44) Ed Iv/Invasive Line Start (08/12/19 09:44) Vital Signs Adult Sepsis Patie Q15M (08/12/19 09:44) O2 (08/12/19 09:44) Remove Rings In Anticipation O (08/12/19:44) Lactic Acid Analyzer (08/12/19 09:44) Ns Iv 1000 Ml (Sodium Chloride 0.9%) (08/12/19 09:44) Piperacillin Sodium/Tazobactam (Zosyn Vi (08/12/19 09:45) Vancomycin Injection (Vancomycin Injecti (08/12/19 09:45) BNP (11/30/19 09:44) Accucheck Stat ONCE (08/12/19 09:44) Manual Differential (08/12/19 10:14) Medications Given in ED Current Medications Medications Dose Ordered Sig/Helen Route Start Time Stop Time Status Last Admin Dose Admin Piperacillin Sod/ Tazobactam Sod 4.5 gm/Sodium Chloride 100 ml @ 200 mls/hr ONCE ONCE IV 08/12/19 09:45 08/12/19 10:14 DC 08/12/19 11:29 200 MLS/HR Vital Signs/I&O 08/12/19 08/12/19 09:45 09:58 Temp 36.8 Pulse 82 Resp 20 B/P (MAP) 132/61 (84) Pulse Ox 92 95 O2 Delivery Room Air Nasal Cannula O2 Flow Rate 2.00 Capillary Refill : Progress Note : Time: 09:52 Progress Note Tylenol for control her fever. We'll get an Accu-Chek and a septic workup as she is on Multaq and beta blockers so she may not be tachycardic. If she has a white count however she definitely qualifies for sepsis. We'll also get a BNP. She has a noted weight gain and has fairly prominent chronic edema in bilateral lower extremities so we will be very cautious with her IV fluids. She has no respirat ory symptoms at this time although he recently did have a left lower lobe infiltrate and pneumonia she was treated for outpatient. She is not on antibiotics presently. Plan to use Zosyn and vancomycin for what is likely cellulitis. Her oxygen sats were 90-92% on room air so we gave her 2 L by nasal cannula while at work her up. Chest x-ray. Diagnostic Imaging Diagonstic Imaging: Xray Plain Films/CT/US/NM/MRI: chest (1v) Comments NAME: MIRIAM RODRIGUES [facility] REC#: [id number] PT STATUS: REG ER : 1950 PHYSICIAN: JUDITH TOBAR MD ADMIT DATE: 08/12/19/ER Signed POSDate of Exam:08/12/19 CHEST 1 VIEW, AP/PA ONLY EXAMINATION: Chest 1 view. HISTORY: Fever. Urinary retention. COMPARISON: 08/03/2019 FINDINGS: Decreased small left pleural effusion and left basilar opacities. Stable cardiomegaly with central pulmonary vascular congestion. No overt pulmonary edema. No evidence of pneumothorax. No acute osseous abnormalities. IMPRESSION: 1. Decreased small left pleural effusion and left basilar opacities. 2. Stable cardiomegaly with central pulmonary vascular congestion. No overt pulmonary edema. Dictated by: Dictated on workstation # [id number] Dict: 08/12/19 1008 Trans: 08/12/[address] [facility] [id number] Interpreted by: AMANDA FUENTES DO Electronically signed by: AMANDA FUENTES DO 08/12/19 1012 Reviewed: Reviewed by Me Departure Communication (Admissions) Time/Spoke to Admitting Phy: 11:45 Discussed case lab imaging with Dr. Zhou and she agrees to accept the patient the floor. Impression Primary Impression: Cellulitis of left lower extremity without foot Additional Impression: Sepsis Qualified Codes: A41.9 - Sepsis, unspecified organism Disposition: ADMITTED INPATIENT Condition: Stable Admissions Decision to Admit Reason: Admit from ER (General) Decision to Admit/Date: Aug 12, 2019 Time/Decision to Admit Time: 11:30 Departure-Patient Inst. Referrals: HERMINIA YAO MD (PCP/Family) Primary Care Physician JUDITH TOBAR Aug 12, 2019 09:52 POS
--- NOTE | 2019-08-12 10:11 | Diagnostic Imaging Report ---
EXAMINATION: Chest 1 view. HISTORY: Fever. Urinary retention. COMPARISON: 08/03/2019 FINDINGS: Decreased small left pleural effusion and left basilar opacities. Stable cardiomegaly with central pulmonary vascular congestion. No overt pulmonary edema. No evidence of pneumothorax. No acute osseous abnormalities. IMPRESSION: 1. Decreased small left pleural effusion and left basilar opacities. 2. Stable cardiomegaly with central pulmonary vascular congestion. No overt pulmonary edema. Dictated by: Dictated on workstation # [id number]
[2019-08-12 10:24] LABS: BASOPHILS % (AUTO) 0 % (0-10); EOSINOPHILS # (AUTO) 0.1 10^3/uL (0.0-0.3); EOSINOPHILS % (AUTO) 1 % (0-10); HEMATOCRIT 30 % (35-52); HEMOGLOBIN 9.2 G/DL (11.5-16.0); LYMPHOCYTES # (AUTO) 1.6 X 10^3 (1.0-4.0); LYMPHOCYTES % (AUTO) 10 % (12-44); MEAN CORPUSCULAR HEMOGLOBIN 25 PG (25-34); MEAN CORPUSCULAR HGB CONC 31 G/DL (32-36); MEAN CORPUSCULAR VOLUME 79 FL (80-99); MEAN PLATELET VOLUME 9.2 FL (7.4-10.4); MONOCYTES # (AUTO) 0.9 X 10^3 (0.0-1.0); MONOCYTES % (AUTO) 6 % (0-12); NEUTROPHILS # (AUTO) 13.4 X 10^3 (1.8-7.8); NEUTROPHILS % (AUTO) 84 % (42-75); PLATELET COUNT 287 10^3/uL (130-400); RED CELL DISTRIBUTION WIDTH 17.6 % (10.0-14.5)
[2019-08-12 10:36] LABS: INR 1.2 (0.8-1.4); PROTHROMBIN TIME PATIENT 15.5 SEC (12.2-14.7)
[2019-08-12 10:45] LABS: ALBUMIN 3.3 GM/DL (3.2-4.5); BILIRUBIN,TOTAL 0.4 MG/DL (0.1-1.0); CALCIUM 9.1 MG/DL (8.5-10.1); CREATININE SERUM 1.81 MG/DL (0.60-1.30); POTASSIUM 3.6 MMOL/L (3.6-5.0)
[2019-08-12 11:07] LABS: EOSINOPHILS % (MANUAL) 2 %; LYMPHOCYTES % (MANUAL) 10 %; MONOCYTES % (MANUAL) 2 %; NEUTROPHILS % (MANUAL) 86 %
[2019-08-12 11:08] LABS: ANISOCYTOSIS MODERATE; MICROCYTOSIS MODERATE
--- NOTE | 2019-08-12 12:30 | NUR ---
RECIEVED RTEPORT ON PATIENT FROM [facility]
[2019-08-12 12:45] VITALS: BP 137/70
--- NOTE | 2019-08-12 12:45 | NUR ---
MIRIAM RODRIGUES admitted to room 419-1, with an admitting diagnosis of CELLULITIS, on 08/12/19 from ED], accompanied by STAFF AND FAMILY.MIRIAM RODRIGUES introduced to surroundings, call light, bed controls, phone, TV, temperature control, lights, meal times, smoking policy, visitor policy, side rail policy, bathrooms and showers. Patient Rights given to patient in the handbook. MIRIAM RODRIGUES verbalizes understanding that [facility] is not responsible for the loss or damage to any personal effects or valuables that are kept in the patients posession during their hospitalization. The following Patient Care Plans were discussed with the PATIENT: Discharge Planning, MEDICATIONS,POSITIONING FOR COMFORT, and PAIN. MIRIAM RODRIGUES verbalizes understanding of Interdisciplinary Patient Education.
[2019-08-12 12:47] LABS: BILIRUBIN,URINE NEGATIVE (NEGATIVE); CLARITY,URINE SL CLOUDY; COLOR,URINE YELLOW; GLUCOSE, URINE (UA) 3+ (NEGATIVE); KETONES,URINE NEGATIVE (NEGATIVE); LEUKOCYTE ESTERASE ,URINE 2+ (NEGATIVE); NITRITE,URINE POSITIVE (NEGATIVE); PH,URINE 6.5 (5-9); PROTEIN,URINE 1+ (NEGATIVE)
[2019-08-12 12:56] LABS: BACTERIA,URINE MODERATE /HPF; WBC,URINE TNTC /HPF
[2019-08-12] MEDS ORDERED: ACETAMINOPHEN 500 MG TAB (TYLENOL) PO PRN (13:15)
--- NOTE | 2019-08-12 13:25 | NUR ---
Vanco - CrCl = 38ml/min (using Adj. Bodywt). Vancomycin loading dose of 2gm, followed by 750mg every 12 hours. Trough ordered for 08/14 @ 0900.
[2019-08-12] MEDS ORDERED: VANCOMYCIN 1 GM/NS 250 ML IVPB IV ONE ×2 (14:00)
[2019-08-12] MEDS: NS IV 1000 ML 1,000 ML IV SCH (14:15)
--- NOTE | 2019-08-12 14:26 | History & Physical-Hospitalist ---
History of Present Illness HPI/Chief Complaint CC: Left lower leg cellulitis with sepsis HPI: This is a very complex bedridden 68yoWF known to me from multiple hospital stays of [facility] who presented to the ER with fever and left leg pain and found to have sepsis, leukocytosis and cellulitis of the left lower leg. She reports that the left leg began hurting 2 days ago and worsened. She has chronic lymphedema complicating the situation. Patient has been bedridden for many months and last hospital stay she underwent endoscopies which revealed no source of blood loss even though occult blood was positive. Patient reports no other significant issues since she was last seen by tis examiner. Source: patient, RN/MD, old records Exam Limitations: no limitations Date Seen 08/12/19 Time Seen by a Provider: 12:30 Attending Physician Fadumo Tran David F MD Referring Physician Date of Admission Aug 12, 2019 at 11:45 Home Medications & Allergies Home Medications Reviewed patient Home Medication Reconciliation performed by pharmacy medication reconciliations marine propulsion technician and/or nursing. Patients Allergies have been reviewed. Allergies Allergies Coded Allergies sulfamethoxazole (Verified Allergy, Unknown, 10/13/17) trimethoprim (Verified Allergy, Unknown, 10/13/17) Past Swzbtls-Awxwwv-Oinljb Hx Past Med/Social Hx: Reviewed Nursing Past Med/Soc Hx, Reviewed and Corrections made Patient Social History Marrital Status: single Employed/Student: retired Alcohol Use: Denies Use Recreational Drug Use: No Smoking Status: Never a Smoker Former Smoker, Quit: Sep 13, 1999 Type Used: Cigarettes 2nd Hand Smoke Exposure: No Physical Abuse Screen: No Sexual Abuse: No Recent Foreign Travel: No Contact w/other who traveled: No Recent Hopitalizations: Yes Recent Infectious Disease Expo: No Immunizations Up To Date Tetanus Booster (TDap): Unknown Pediatric: No Seasonal Allergies Seasonal Allergies: No Past Medical History Surgeries: Joint Replacement, Nose, Orthopedic Respiratory: COPD Currently Using CPAP: No Currently Using BIPAP: No Cardiac: Atrial Fibrillation, Chronic Edema/Swelling, Coronary Artery Disease, High Cholesterol, Hypertension Neurological: Neuropathy, Stroke 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: No Menopausal Genitourinary: UTI-Chronic Gastrointestinal: Gastroesophageal Reflux, Chronic Constipation, Hemorrhoids, Ulcer Musculoskeletal: Arthritis Endocrine: Diabetes, Insulin dep HEENT: Dysphagia Loss of Vision: Denies Hearing Impairment: Denies Psychosocial: Sleep Difficulties, Anxiety, Depression History of Blood Disorders: No Family History Completed stroke 19 FATHER G8 BROTHER Diabetes mellitus G8 BROTHER Hypertension 19 FATHER 19 MOTHER CVA, Diabetes Review of Systems Constitutional: see HPI, fever, malaise, weakness EENTM: no symptoms reported Respiratory: no symptoms reported Cardiovascular: no symptoms reported Gastrointestinal: no symptoms reported Genitourinary: no symptoms reported Musculoskeletal: no symptoms reported Skin: see HPI Psychiatric/Neurological: No Symptoms Reported All Other Systems Reviewed Negative Unless Noted: Yes Physical Exam Physical Exam Vital Signs Vital Signs - First Documented 08/12/19 08/12/19 09:45 09:58 Temp 36.8 Pulse 82 Resp 20 B/P (MAP) 132/61 (84) Pulse Ox 92 O2 Delivery Room Air O2 Flow Rate 2.00 Capillary Refill : Less Than 3 SecondsLess Than 3 Seconds Height, Weight, BMI Height: 5'6.00" Weight: 118lbs. 0.5oz. 53.347786mx; 40.89 BMI Method:Estimated General Appearance: No Apparent Distress, WD/WN, Chronically ill, Obese Eyes: Right Eye Normal Inspection, Right Eye PERRL HEENT: PERRL/EOMI, Normal ENT Inspection, Pharynx Normal, Moist Mucous Membranes Neck: Full Range of Motion, Normal Inspection, Non Tender Respiratory: Chest Non Tender, Lungs Clear, Normal Breath Sounds, No Accessory Muscle Use, No Respiratory Distress Cardiovascular: No Edema, No Gallop, No JVD, No Murmur, Normal Peripheral Pulses, Irregularly Irregular Gastrointestinal: Normal Bowel Sounds, No Organomegaly, No Pulsatile Mass, Non Tender, Soft Back: Normal Inspection, No CVA Tenderness, No Vertebral Tenderness Extremity: Normal Capillary Refill, Normal Inspection, Normal Range of Motion, Non Tender, No Calf Tenderness (except left leg), Pedal Edema Neurologic/Psychiatric: Alert, Oriented x3, No Motor/Sensory Deficits, Normal Mood/Affect Skin: Normal Color, Warm/Dry, Rash (left lower leg with erythema and ttp) Lymphatic: No Adenopathy Results Results/Procedures Labs Laboratory Tests 08/12/19 10:14 Patient resulted labs reviewed. Assessment/Plan Admission Diagnosis Assessment: Sepsis Left lower leg cellulitis Leukocytosis AF Bedridden NH home status Plan: Lovenox Home meds Zosyn IVF Prognosis remains poor Admission Status: Inpatient Order (span 2 midnights) Reason for Inpatient Admission: Sepsis with cellulitis Diagnosis/Problems Diagnosis/Problems (1) Sepsis Status: Acute Qualifiers: Sepsis type: sepsis due to unspecified organism Sepsis acute organ dysfunction status: without acute organ dysfunction Qualified Codes: A41.9 - Sepsis, unspecified organism (2) Cellulitis of left lower extremity without foot Status: Acute (3) Chronic kidney disease Status: Chronic (4) ANKIT (obstructive sleep apnea) Status: Chronic (5) Normocytic anemia Status: Chronic (6) Paroxysmal atrial fibrillation Status: Acute (7) History of CVA (cerebrovascular accident) Status: Chronic (8) Bullous pemphigoid Status: Chronic (9) At risk for deep venous thrombosis Status: Acute (10) Bedbound Status: Chronic (11) REFLUX (12) Insulin dependent diabetes mellitus with complications Status: Chronic (13) BMI 40.0-44.9, adult Status: Chronic (14) Depression Status: Chronic (15) Refusal of blood transfusions as patient is Worship Clinical Quality Measures DVT/VTE Risk/Contraindication: Risk Factor Score Per Nursin RFS Level Per Nursing on Admit: 4+=Very High FADUMO TRAN DO Aug 12, 2019 14:25 POS
[2019-08-12] MEDS ORDERED: BLOO1STR MC (15:29)
[2019-08-12] MEDS ORDERED: DESENEX (15:32)
[2019-08-12 16:00] VITALS: BP 149/78
[2019-08-12] MEDS: PIPERACILLIN/TAZO 4.5 GM/NS 100 ML IV SCH ×2 (16:15)
[2019-08-12] MEDS ORDERED: SALINE NASAL SPRAY (OCEAN) 45 ML BTL NS PRN (16:30)
[2019-08-12] MEDS ORDERED: MILK OF MAGNESIA 400 MG/5 ML 30 ML UDC PO PRN (16:30)
[2019-08-12] MEDS ORDERED: ONDANSETRON 4 MG/2 ML (SDV) Z0FRAN IVP PRN (16:30)
[2019-08-12] MEDS ORDERED: PREPARATION H OINTMENT 57 GR TUBE RC PRN (16:30)
[2019-08-12] MEDS ORDERED: guaiFENesin/DM (ROBITUSSIN DM) 10 ML UDC PO PRN (16:30)
[2019-08-12] MEDS ORDERED: diphenhydrAMINE 25 MG TAB (BENADRYL) PO PRN (16:30)
[2019-08-12] MEDS ORDERED: BISACODYL 10 MG SUPP (DULCOLAX) RC PRN (16:30)
[2019-08-12] MEDS ORDERED: ONDANSETRON 4 MG (ZOFRAN) ORAL DISSOLVE TAB PO PRN (16:30)
[2019-08-12] MEDS ORDERED: LOPERAMIDE 2 MG (IMODIUM) TABLET PO PRN (16:30)
[2019-08-12] MEDS ORDERED: DOCUSATE SODIUM 100 MG (COLACE) CAP PO PRN (16:30)
[2019-08-12] MEDS ORDERED: RT-ALBUTEROL SULF 2.5 MG/3 ML PRE-MIX VIAL IH PRN (16:30)
[2019-08-12] MEDS ORDERED: CALCIUM CARBONATE 500 MG (TUMS) TAB.CHEW PO PRN (16:30)
[2019-08-12] MEDS ORDERED: HYDROcodone/APAP 5 MG/325 MG (LORTAB) TAB PO PRN (16:30)
[2019-08-12] MEDS ORDERED: ALPRAZolam 0.25 MG (XANAX) TAB PO PRN (16:30)
[2019-08-12] MEDS ORDERED: MELATONIN 3 MG TABLET PO PRN (16:30)
[2019-08-12] MEDS: SUCRALFATE 1 GM (CARAFATE) TAB PO SCH ×2 (16:52→20:41)
[2019-08-12] MEDS: ACETAMINOPHEN 500 MG TAB (TYLENOL) PO PRN (16:53)
[2019-08-12] MEDS: inSUlin ASPART (NovoLOG) 1 UNIT/0.01 ML (CHARGE PER UNIT) SC SCH ×2 (17:02→20:53)
--- NOTE | 2019-08-12 18:34 | NUR ---
PT RESCANNED AT THIS TIME FOR TEMPERATURE. IT WAS 37.9 C.
[2019-08-12 20:00] VITALS: BP 120/67
[2019-08-12] MEDS ORDERED: RT-ADVAIR HFA 115/21 MCG PER PUFF IH SCH (20:00)
[2019-08-12] MEDS: VITAMIN D3 5,000 UNITS (CHOLECALCIFEROL ) CAPSULE PO SCH (20:39)
[2019-08-12] MEDS: ENOXAPARIN 40 MG/0.4 ML (LOVENOX) SYR SC SCH (20:40)
[2019-08-12] MEDS: DRONEDARONE TABLET 400 MG TABLET PO SCH (20:40)
[2019-08-12] MEDS: ASPIRIN E.C. 81 MG (ECOTRIN) TAB PO SCH (20:41)
[2019-08-12] MEDS: SENNA W/DOCUSATE (SENOKOT S) TABLET PO SCH (20:41)
[2019-08-12] MEDS: BETHANECHOL 10 MG (URECHOLINE) TAB PO SCH (20:42)
[2019-08-12] MEDS: FUROSEMIDE 40 MG (LASIX) TAB PO SCH (20:42)
[2019-08-12] MEDS: GABAPENTIN 300 MG (NEURONTIN) CAP PO SCH (20:42)
[2019-08-12] MEDS: MELATONIN 3 MG TABLET PO SCH (20:42)
[2019-08-12] MEDS: PATCH REMOVAL TP SCH (20:44)
[2019-08-12] MEDS ORDERED: inSUlin ASPART (NovoLOG) 1 UNIT/0.01 ML (CHARGE PER UNIT) SC SCH (21:00)
[2019-08-12] MEDS: VANCOMYCIN 750 MG/NS 250 ML IVPB IV SCH ×2 (21:01)
[2019-08-13] VITALS: BP 125/72
[2019-08-13] MEDS: PIPERACILLIN/TAZO 4.5 GM/NS 100 ML IV SCH ×8 (00:11→23:27)
[2019-08-13] MEDS: NS IV 1000 ML 1,000 ML IV SCH ×2 (02:56→06:11)
[2019-08-13 04:00] VITALS: BP 131/66
[2019-08-13] MEDS: inSUlin ASPART (NovoLOG) 1 UNIT/0.01 ML (CHARGE PER UNIT) SC SCH ×4 (05:49→21:09)
[2019-08-13 05:50] LABS: BASOPHILS % (AUTO) 0 % (0-10); EOSINOPHILS # (AUTO) 0.2 10^3/uL (0.0-0.3); EOSINOPHILS % (AUTO) 2 % (0-10); HEMATOCRIT 27 % (35-52); HEMOGLOBIN 8.3 G/DL (11.5-16.0); LYMPHOCYTES # (AUTO) 1.3 X 10^3 (1.0-4.0); LYMPHOCYTES % (AUTO) 9 % (12-44); MEAN CORPUSCULAR HEMOGLOBIN 24 PG (25-34); MEAN CORPUSCULAR HGB CONC 30 G/DL (32-36); MEAN CORPUSCULAR VOLUME 80 FL (80-99); MEAN PLATELET VOLUME 10.1 FL (7.4-10.4); MONOCYTES # (AUTO) 0.9 X 10^3 (0.0-1.0); MONOCYTES % (AUTO) 7 % (0-12); NEUTROPHILS # (AUTO) 11.1 X 10^3 (1.8-7.8); NEUTROPHILS % (AUTO) 82 % (42-75); PLATELET COUNT 240 10^3/uL (130-400); RED CELL DISTRIBUTION WIDTH 17.2 % (10.0-14.5); WHITE BLOOD COUNT 13.5 10^3/uL (4.3-11.0)
[2019-08-13] MEDS: OMEGA 3 (FISH OIL) 1000 MG CAP PO SCH (06:11)
[2019-08-13] MEDS: ACETAMINOPHEN 500 MG TAB (TYLENOL) PO PRN (06:12)
[2019-08-13 06:17] LABS: ALBUMIN 2.9 GM/DL (3.2-4.5); BILIRUBIN,TOTAL 0.5 MG/DL (0.1-1.0); CALCIUM 8.5 MG/DL (8.5-10.1); CREATININE SERUM 1.33 MG/DL (0.60-1.30); POTASSIUM 3.3 MMOL/L (3.6-5.0); TOTAL PROTEIN 6.1 GM/DL (6.4-8.2)
[2019-08-13 08:00] VITALS: BP 132/73
[2019-08-13] MEDS ORDERED: NON-FORMULARY MEDICATION 1 EA EA (Gluc Su/Chondro Su A/Vit C/Mn (Glucosamine Chondroitin T PO SCH (09:00)
[2019-08-13] MEDS ORDERED: NON-FORMULARY MEDICATION 1 EA EA (Cinnamon Bark (Cinnamon) 1,000 MG) PO SCH (09:00)
[2019-08-13] MEDS ORDERED: NON-FORMULARY MEDICATION 1 EA EA (Empagliflozin (Jardiance) 10 MG) PO SCH (09:00)
[2019-08-13] MEDS ORDERED: NON-FORMULARY MEDICATION 1 EA EA (Cranberry Extract (Cranberry) 1,000 MG) PO SCH (09:00)
--- NOTE | 2019-08-13 09:07 | NUR ---
DR. RUSH NOTIFIED OF NEED FOR CLARIFICATION ON MULTIPLE DOSES OF LEVEMIR. ALSO, NOTIFIED THAT WE DO NOT STOCK JARDIANCE OR TRULICITY.
[2019-08-13] MEDS: LIDOCAINE 4% (SALONPAS) PATCH TOP SCH (09:19)
--- NOTE | 2019-08-13 09:20 | NUR ---
OXY IR 5 PO FOR C/O GENERAL DISCOMFORT.
[2019-08-13] MEDS: DRONEDARONE TABLET 400 MG TABLET PO SCH ×2 (09:22→19:31)
[2019-08-13] MEDS: DILTIAZEM 180 MG (CARDIZEM CD) CAP PO SCH (09:22)
[2019-08-13] MEDS: BETHANECHOL 10 MG (URECHOLINE) TAB PO SCH ×2 (09:22→19:52)
[2019-08-13] MEDS: GABAPENTIN 300 MG (NEURONTIN) CAP PO SCH ×2 (09:22→19:31)
[2019-08-13] MEDS: amLODIPine 5 MG (NORVASC) TAB PO SCH (09:22)
[2019-08-13] MEDS: ASPIRIN E.C. 81 MG (ECOTRIN) TAB PO SCH ×2 (09:22→19:31)
[2019-08-13] MEDS: meTOprolol SUCCINATE 100 MG (TOPROL XL) TAB PO SCH (09:22)
[2019-08-13] MEDS: FUROSEMIDE 40 MG (LASIX) TAB PO SCH ×2 (09:23→19:32)
[2019-08-13] MEDS: MULTIVIT W/MINERALS TAB (THERAGRAN M) PO SCH (09:23)
[2019-08-13] MEDS: FERROUS SULF 325 MG (IRON) TAB PO SCH (09:23)
[2019-08-13] MEDS: SUCRALFATE 1 GM (CARAFATE) TAB PO SCH ×4 (09:23→19:31)
[2019-08-13] MEDS: SENNA W/DOCUSATE (SENOKOT S) TABLET PO SCH ×2 (09:23→19:32)
[2019-08-13] MEDS: VANCOMYCIN 750 MG/NS 250 ML IVPB IV SCH ×4 (09:23→21:54)
[2019-08-13] MEDS ORDERED: OXYC-529 PO ×2 (10:58)
--- NOTE | 2019-08-13 10:59 | NUR ---
ENTERED MED REC FROM THE ORDER SUMMARY REPORT FROM [facility]. THE PT WAS RECENTLY DISCHARGED AND I SPOKE WITH [facility] TO MAKE SURE NO NEW ORDERS HAD BEEN STARTED. I ALSO SPOKE WITH THE NURSE AT [facility] ABOUT THE ELIQUIS. IT WAS ON THE ORDER SUMMARY BUT I DID NOT SHOW IT ON HER LAST VISIT. THE NURSE INDICATED THAT DUE TO THE PROCEDURE THE PT HAD ON 07-14-2019 IT HAD BEEN STOPPED AND NOT RESTARTED. ALSO THE THERAPY OF MACROBID HAD BEEN FINISHED.
[2019-08-13 12:00] VITALS: BP 108/57
--- NOTE | 2019-08-13 12:21 | Progress Note - Hospitalist ---
Subjective HPI/CC On Admission Date Seen by Provider: Aug 13, 2019 Time Seen by Provider: 11:30 CC: Left lower leg cellulitis with sepsis HPI: This is a very complex bedridden 68yoWF known to me from multiple hospital stays of [facility] who presented to the ER with fever and left leg pain and found to have sepsis, leukocytosis and cellulitis of the left lower leg. She reports that the left leg began hurting 2 days ago and worsened. She has chronic lymphedema complicating the situation. Patient has been bedridden for many months and last hospital stay she underwent endoscopies which revealed no source of blood loss even though occult blood was positive. Patient reports no other significant issues since she was last seen by tis examiner. Subjective/Events-last exam Patient asleep Organized her insulin regimen Reviewed labs Left leg cellulitis appears to me improved Overall prognosis remains poor Patient denies pain Hgb stable Review of Systems General: Fatigue Musculoskeletal: leg pain Focused Exam Lactate Level 08/12/19 10:14: Lactic Acid Level 1.40 Objective Exam Vital Signs Vital Signs Date Time Temp Pulse Resp B/P (MAP) Pulse Ox O2 Delivery O2 Flow Rate FiO2 08/13/19 12:00 36.5 88 20 108/57 (74) 98 Nasal Cannula 2.00 Capillary Refill : Less Than 3 SecondsLess Than 3 Seconds General Appearance: No Apparent Distress, WD/WN, Chronically ill, Obese Respiratory: Chest Non Tender, Lungs Clear, Normal Breath Sounds, No Accessory Muscle Use, No Respiratory Distress Cardiovascular: Regular Rate, Rhythm, No Edema, No Gallop, No JVD, No Murmur, Normal Peripheral Pulses Neurologic/Psychiatric: Alert, Oriented x3, No Motor/Sensory Deficits, Normal Mood/Affect Skin: Normal Color, Warm/Dry, Rash (improve erythema left leg) Results/Procedures Lab Laboratory Tests 08/13/19 05:15 Patient resulted labs reviewed. Assessment/Plan Assessment and Plan Assess & Plan/Chief Complaint Assessment: Sepsis Left lower leg cellulitis Leukocytosis AF Bedridden NH home status Plan: Lovenox Home meds Zosyn IVF Prognosis remains poor Diagnosis/Problems Diagnosis/Problems (1) Sepsis Status: Acute Qualifiers: Sepsis type: sepsis due to unspecified organism Sepsis acute organ dysfunction status: without acute organ dysfunction Qualified Codes: A41.9 - Sepsis, unspecified organism (2) Cellulitis of left lower extremity without foot Status: Acute (3) Chronic kidney disease Status: Chronic (4) ANKIT (obstructive sleep apnea) Status: Chronic (5) Normocytic anemia Status: Chronic (6) Paroxysmal atrial fibrillation Status: Acute (7) History of CVA (cerebrovascular accident) Status: Chronic (8) Bullous pemphigoid Status: Chronic (9) At risk for deep venous thrombosis Status: Acute (10) Bedbound Status: Chronic (11) REFLUX (12) Insulin dependent diabetes mellitus with complications Status: Chronic (13) BMI 40.0-44.9, adult Status: Chronic (14) Depression Status: Chronic (15) 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
--- NOTE | 2019-08-13 13:47 | Consultation-Cardiology ---
HPI-Cardiology Cardiology Consultation: Date of Consultation 08/13/19 Time Seen by a Provider: 14:10 Date of Admission Attending Physician Fadumo Tran DO Admitting Physician Roberto Ramírez MD Consulting Physician MERA MELENDEZ MD, MA, FACP, FACC, FSCAI, CCDS Primary traffic control flagger: Dr Calderon HPI: Chief Complaint: Reason of consultation: H/o PAF HPI 68 yo woman admitted to Dr Tran on 08/12/19 after she came to the ER for eval of fever, lethargy and increasing redness and swelling of the left leg. Admitted with L leg cellulitis and sepsis. Denies cp. Has chronic shortness of breath with mild activity. No palp or syncope. Has chronic, bilateral leg swelling. Has recently had fever and chills Review of Systems-Cardiology Review of Systems Constitutional: As described under HPI Eyes: No vision change Ears/Nose/Throat: No ear discharge, No nasal drainage, No recent hearing loss Respiratory: As described under HPI Cardiovascular: As described under HPI Gastrointestinal: No constipation, No diarrhea, No nausea, No vomiting Genitourinary: No dysuria, No hematuria, No urine frequency changes Musculoskeletal: back pain (chronic) Skin: No rash; skin related problems (chronic redness of the legs and thickening of the skin of the legs); No ulcerations Psychiatric/Neurological: No seizure, No focal weakness, No syncope Hematologic: No bleeding abnormalities All Other Systems Reviewed Negative Unless Noted: Yes REY-[id number]-Zoquru Hx Patient Social History Marrital Status: single Employed/Student: retired Alcohol Use: Denies Use Recreational Drug Use: No Smoking Status: Never a Smoker Former smoker/When Quit: Sep 13, 1999 Type Used: Cigarettes 2nd Hand Smoke Exposure: No Recent Foreign Travel: No Recent Infectious Disease Expo: No Hospitalization with Isolation: Contact Physical Abuse Screen: No Sexual Abuse: No Immunizations Up To Date Tetanus Booster (TDap): Unknown Past Medical History PMH As described under Assessment. Family Medical History Family History: Completed stroke 19 FATHER G8 BROTHER Diabetes mellitus G8 BROTHER Hypertension 19 FATHER 19 MOTHER Allergies and Home Medications Allergies Coded Allergies: sulfamethoxazole (Verified Allergy, Unknown, 10/13/17) trimethoprim (Verified Allergy, Unknown, 10/13/17) Home Medications Acetaminophen 500 Mg Tablet, 1,000 MG PO Q6H PRN for PAIN-MILD OR TEMPATURE, (Reported) Albuterol Sulfate 2.5 Mg/3 Ml Vial.neb, 2.5 MG NEB Q4H PRN for SHORTNESS OF BREATH, (Reported) Amlodipine Besylate 5 Mg Tablet, 5 MG PO DAILY, (Reported) HOLD IF SBP<110 Aspirin 81 Mg Tablet.dr, 81 MG PO BID, (Reported) Atorvastatin Calcium 40 Mg Tablet, 40 MG PO HS, (Reported) B Complex with Vitamin C 1 Each Tablet, 1 TAB PO DAILY, (Reported) Bethanechol Chloride 10 Mg Tablet, 10 MG PO BID, (Reported) Bisacodyl 10 Mg Supp.rect, 10 MG RC DAILY PRN for CONSTIPATION-4TH LINE, (Reported) Budesonide/Formoterol Fumarate 10.2 Gm Hfa.aer.ad, 2 PUFF IH BID, (Reported) Cholecalciferol 5,000 Unit Capsule, 5,000 UNIT PO HS, (Reported) Cinnamon Bark 500 Mg Capsule, 1,000 MG PO DAILY, (Reported) TAKES 2 (500 MG) CAPSULES Citalopram Hydrobromide 10 Mg Tablet, 10 MG PO DAILY, (Reported) Cranberry Extract 500 Mg Tablet, 1,000 MG PO DAILY, (Reported) Diltiazem HCl 180 Mg Tab.er.24h, 180 MG PO DAILY, (Reported) Docusate Sodium 100 Mg Capsule, 100 MG PO BID, (Reported) Dronedarone HCl 400 Mg Tablet, 400 MG PO BID, (Reported) Dulaglutide 1.5 Mg/0.5 Ml Pen.injctr, 1.5 MG SQ We, (Reported) Empagliflozin 10 Mg Tablet, 10 MG PO DAILY, (Reported) Ferrous Sulfate 325 Mg Tablet, 325 MG PO DAILY, (Reported) Fluticasone Propionate 16 Gm [place].susp, 2 SPRAYS NS DAILY, (Reported) Furosemide 40 Mg Tablet, 40 MG PO BID, (Reported) Gabapentin 300 Mg Capsule, 300 MG PO BID, (Reported) Gluc Angulo/Chondro Angulo A/Vit C/Mn 1 Each Tablet, 2 TAB PO DAILY, (Reported) Guaifenesin/Dextromethorphan 473 Ml Syrup, 10 ML PO Q4H PRN for COUGH, (Reported) Insulin Detemir 100 Unit/1 Ml Insuln.pen, 35 UNIT SQ HS, (Reported) Insulin Detemir 100 Unit/1 Ml Insuln.pen, 40 UNIT SQ DAILY, (Reported) Lidocaine 1 Each Adh..patch, 1 PATCH TD DAILY, (Reported) 4% APPLY TO UPPER RIGHT THIGH Magnesium Hydroxide 400 Mg/5 Ml Oral.susp, 30 ML PO DAILY PRN for CONSTIPATION- 7TH LINE, (Reported) Megestrol Acetate 40 Mg Tablet, 80 MG PO DAILY, (Reported) TAKES 2 (40MG) TABLETS Melatonin 3 Mg Tablet, 3 MG PO HS, (Reported) Metoprolol Succinate 100 Mg Tab.er.24h, 100 MG PO DAILY, (Reported) HOLD FOR SYSTOLIC BP <100 AND HEART RATE <60 Miconazole Nitrate 10 Gm Powder, TOP BID, (Reported) APPLY TO GROIN AND UNDER BREASTS Multivits W-Fe,Other Min/Lut 1 Each Tablet, 1 TAB PO TID, (Reported) [place]-3/Dha/Epa/Fish Oil 1 Each Capsule, 2 CAP PO DAILY, (Reported) Oxycodone HCl 5 Mg Tablet, 5 MG PO Q4H PRN for PAIN-SEVERE (8-10), (Reported) Pantoprazole Sodium 40 Mg Tablet.dr, 40 MG PO 1400, (Reported) Phenyleph/Mineral Oil/Petrolat 57 Gm Oint.appl, RC Q12H PRN for HEMORRHOIDS, (Reported) Sodium Chloride 104 Ml [place], 2 SPRAYS NS Q4H PRN for DRY NOSE, (Reported) Sucralfate 1 Gm Tablet, 1 GM PO QID, (Reported) Valerian Root 500 Mg Capsule, 530 MG PO DAILY PRN for ANXIETY, (Reported) [Blood Sugar 360] , 1 CAP PO UD PRN for BLOOD SUGAR MAINTENANCE, (Reported) [digize oil] , TOP UD PRN for DIGESTIVE DIFFICULTIES, (Reported) MAY BE USED TOPICALLY OR DABBED INSIDE MOUTH ON CHEEK, KEEP AT BEDSIDE AND SELF ADMINISTER FOR DIGESTIVE DIFFICULTIES. Patient Home Medication List Home Medication List Reviewed: Yes Physical Exam-Cardiology Physical Exam Vital Signs/I&O 08/13/19 08/13/19 08/13/19 08/13/19 04:00 08:00 08:00 09:58 Temp 37.5 37.0 Pulse 95 98 Resp 18 22 B/P (MAP) 131/66 (87) 132/73 (92) Pulse Ox 91 95 95 88 O2 Delivery Nasal Cannula Nasal Cannula Nasal Cannula Nasal Cannula O2 Flow Rate 2.00 2.00 2.00 1.00 08/13/19 00:00 Intake Total 3450 ml Output Total 1200 ml Balance 2250 ml Capillary Refill : Less Than 3 SecondsLess Than 3 Seconds Constitutional: AAO x 3, well-developed, well-nourished HEENT: PERRL, EOMI; No xanthelasmas are seen Neck: carotid pulses are 2 + bilaterally, with good upstrokes Respiratory: No accessory muscle use; other (fair bilat air entry, diminished at the bases) Cardiovascular: regular rate-rhythm, S1 and S2, systolic murmur (soft AGATHA at card base) Gastrointestinal: No tender; soft; No guarding, No rebound; audible bowel sounds Extremities: No clubbing; cyanosis, significant edema (marked bilat leg edema, pitting and nonpitting, more on the L; L leg redness and elevated temp; thickening of the skin of the legs) Skin: other (see above under Extremities exam) Data Review Labs Laboratory Tests 08/13/19 05:15: White Blood Count 13.5H, Red Blood Count 3.43L, Hemoglobin 8.3L, Hematocrit 27L, Mean Corpuscular Volume 80, Mean Corpuscular Hemoglobin 24L, Mean Corpuscular Hemoglobin Concent 30L, Red Cell Distribution Width 17.2H, Platelet Count 240, Mean Platelet Volume 10.1, Neutrophils (%) (Auto) 82H, Lymphocytes (%) (Auto) 9L , Monocytes (%) (Auto) 7, Eosinophils (%) (Auto) 2, Basophils (%) (Auto) 0, Neutrophils # (Auto) 11.1H, Lymphocytes # (Auto) 1.3, Monocytes # (Auto) 0.9, Eosinophils # (Auto) 0.2, Basophils # (Auto) 0.0, Sodium Level 140, Potassium Level 3.3L, Chloride Level 107, Carbon Dioxide Level 21, Anion Gap 12, Blood Urea Nitrogen 13, Creatinine 1.33H, Estimat Glomerular Filtration Rate 40, BUN/Creatinine Ratio 10, Glucose Level 83, Calcium Level 8.5, Corrected Calcium 9.4, Total Bilirubin 0.5, Aspartate Amino Transf (AST/SGOT) 12, Alanine Aminotransferase (ALT/SGPT) 11, Alkaline Phosphatase 73, Total Protein 6.1L, Albumin 2.9L 08/13/19 11:10: Glucometer 178H Microbiology 08/12/19 Urine Culture - Preliminary, Resulted Klebsiella pneumoniae Laboratory Tests 08/12/19 10:14 08/13/19 05:15 A/P-Cardiology Assessment/Admission Diagnosis L leg cellulitis and sepsis, in the setting of chronic lymphedema of the legs and h/o recurrent cellulitis Paroxysmal atrial fibrillation, s/p cardioversion in April 2019, on oral Cardizem and Multaq. Unable to tolerate OAC due to occult GI bleed. Occult GI bleed, source undetermined despite endoscopies in the recent past S/p thoracentesis of large L pleural effusion on 07/31/19, exudative, followed and managed by Dr Patel Chronic kidney disease stage 3-4 History of CVA with left-sided paralysis and h/o DVT in February 2019, Eliquis currently on hold for reasons described above Echo of February 19, 2019: normal left ventricular size and systolic function, ejection fraction 55-65 percent, left atrial dilatation, PA pressure of 20 mmHg Hypertension Hyperlipidemia Diabetes mellitus II, managed by pcp Obesity, BMI 40. Hypokalemia, likely due to chronic diuretic therapy Discussion and Recomendations * Complex management due to multiple comorbidities that are outlined above * Not suitable for full-dose OAC. Continue enoxaparin stroke prophylaxis * Replenish K * Monitor labs Clinical Quality Measures DVT/VTE Risk/Contraindication: Risk Factor Score Per Nursin RFS Level Per Nursing on Admit: 4+=Very High Contraindications-Mechi: Other *list below* Other: MERA Calderón MD FACP FAC CCDS Aug 13, 2019 13:47 POS
[2019-08-13] MEDS: PANTOPRAZOLE 40 MG (PROTONIX) TAB PO SCH (13:54)
[2019-08-13] MEDS ORDERED: KCL 20 MEQ TAB (K-DUR) PO ONE (14:45)
[2019-08-13 16:00] VITALS: BP 110/69
[2019-08-13] MEDS ORDERED: KCL 10 MEQ TAB (MICRO K) PO ONE (16:30)
--- NOTE | 2019-08-13 16:30 | NUR ---
DR. RUSH NOTIFIED THAT DR. MELENDEZ HAD ORDERED PO POTASSIUM @ 1500. ORDER REC'D TO NOT ADMINISTER 1X DOSE SHE JUST ORDERED, BUT TO START DAILY IN AM.
[2019-08-13] MEDS: MELATONIN 3 MG TABLET PO SCH (19:32)
[2019-08-13] MEDS: PATCH REMOVAL TP SCH (19:52)
[2019-08-13] MEDS: ENOXAPARIN 40 MG/0.4 ML (LOVENOX) SYR SC SCH (19:52)
[2019-08-13] MEDS: VITAMIN D3 5,000 UNITS (CHOLECALCIFEROL ) CAPSULE PO SCH (19:52)
[2019-08-14] VITALS: BP 134/64
[2019-08-14] MEDS: ADVAIR HFA 115/21 MCG INHALER 8 GM IH SCH ×3 (01:44→20:06)
[2019-08-14 05:22] LABS: BASOPHILS % (AUTO) 0 % (0-10); EOSINOPHILS # (AUTO) 0.3 10^3/uL (0.0-0.3); EOSINOPHILS % (AUTO) 3 % (0-10); HEMATOCRIT 29 % (35-52); HEMOGLOBIN 8.5 G/DL (11.5-16.0); LYMPHOCYTES # (AUTO) 1.1 X 10^3 (1.0-4.0); LYMPHOCYTES % (AUTO) 11 % (12-44); MEAN CORPUSCULAR HEMOGLOBIN 24 PG (25-34); MEAN CORPUSCULAR HGB CONC 30 G/DL (32-36); MEAN CORPUSCULAR VOLUME 80 FL (80-99); MEAN PLATELET VOLUME 9.6 FL (7.4-10.4); MONOCYTES # (AUTO) 0.8 X 10^3 (0.0-1.0); MONOCYTES % (AUTO) 8 % (0-12); NEUTROPHILS # (AUTO) 8.1 X 10^3 (1.8-7.8); NEUTROPHILS % (AUTO) 78 % (42-75); PLATELET COUNT 226 10^3/uL (130-400); RED CELL DISTRIBUTION WIDTH 17.4 % (10.0-14.5); WHITE BLOOD COUNT 10.3 10^3/uL (4.3-11.0)
[2019-08-14 05:47] LABS: ALBUMIN 2.8 GM/DL (3.2-4.5); BILIRUBIN,TOTAL 0.3 MG/DL (0.1-1.0); CALCIUM 8.9 MG/DL (8.5-10.1); CREATININE SERUM 1.57 MG/DL (0.60-1.30); POTASSIUM 3.7 MMOL/L (3.6-5.0); TOTAL PROTEIN 6.4 GM/DL (6.4-8.2)
[2019-08-14] MEDS: inSUlin ASPART (NovoLOG) 1 UNIT/0.01 ML (CHARGE PER UNIT) SC SCH ×4 (05:59→21:57)
[2019-08-14] MEDS: OMEGA 3 (FISH OIL) 1000 MG CAP PO SCH (06:15)
[2019-08-14] MEDS: KCL 10 MEQ TAB (MICRO K) PO SCH (06:15)
[2019-08-14 08:00] VITALS: BP 126/58
[2019-08-14] MEDS: amLODIPine 5 MG (NORVASC) TAB PO SCH (08:34)
[2019-08-14] MEDS: PIPERACILLIN/TAZO 4.5 GM/NS 100 ML IV SCH ×6 (08:34→23:47)
[2019-08-14] MEDS: ASPIRIN E.C. 81 MG (ECOTRIN) TAB PO SCH ×2 (08:35→21:56)
[2019-08-14] MEDS: DRONEDARONE TABLET 400 MG TABLET PO SCH ×2 (08:35→21:55)
[2019-08-14] MEDS: DILTIAZEM 180 MG (CARDIZEM CD) CAP PO SCH (08:35)
[2019-08-14] MEDS: SENNA W/DOCUSATE (SENOKOT S) TABLET PO SCH ×2 (08:35→21:55)
[2019-08-14] MEDS: meTOprolol SUCCINATE 100 MG (TOPROL XL) TAB PO SCH (08:35)
[2019-08-14] MEDS: FERROUS SULF 325 MG (IRON) TAB PO SCH (08:35)
[2019-08-14] MEDS: SUCRALFATE 1 GM (CARAFATE) TAB PO SCH ×4 (08:35→21:56)
[2019-08-14] MEDS: MULTIVIT W/MINERALS TAB (THERAGRAN M) PO SCH (08:35)
[2019-08-14] MEDS: GABAPENTIN 300 MG (NEURONTIN) CAP PO SCH ×2 (08:35→21:55)
[2019-08-14] MEDS: FUROSEMIDE 40 MG (LASIX) TAB PO SCH ×2 (08:36→21:55)
[2019-08-14] MEDS: BETHANECHOL 10 MG (URECHOLINE) TAB PO SCH ×2 (08:41→21:56)
[2019-08-14] MEDS: LIDOCAINE 4% (SALONPAS) PATCH TOP SCH (08:41)
--- NOTE | 2019-08-14 08:56 | Progress Note ---
Subjective Date Seen by a Provider: Aug 14, 2019 Time Seen by a Provider: 08:22 Subjective/Events-last exam Patient was awake and in good mood Only complains of back pain but is normal when she is sitting or laying down for long periods of time. Denies fevers or chills States that she normally only wears oxygen at night. Focused Exam Lactate Level 08/12/19 10:14: Lactic Acid Level 1.40 Objective Exam Last Set of Vital Signs Vital Signs Date Time Temp Pulse Resp B/P (MAP) Pulse Ox O2 Delivery O2 Flow Rate FiO2 08/14/19 00:00 36.9 77 18 134/64 (87) 95 Nasal Cannula 3.00 Capillary Refill : Less Than 3 SecondsLess Than 3 Seconds I&O Intake and Output 08/14/19 00:00 Intake Total 3925.0 ml Output Total 3200 ml Balance 725.0 ml Intake Oral 1210 ml IV Total 2715.0 ml Output Urine Total 3200 ml Results Lab Laboratory Tests 08/13/19 11:10: Glucometer 178H 08/13/19 15:42: Glucometer 219H 08/13/19 21:06: Glucometer 180H 08/14/19 04:45: White Blood Count 10.3, Red Blood Count 3.58L, Hemoglobin 8.5L, Hematocrit 29L, Mean Corpuscular Volume 80, Mean Corpuscular Hemoglobin 24L, Mean Corpuscular Hemoglobin Concent 30L, Red Cell Distribution Width 17.4H, Platelet Count 226, Mean Platelet Volume 9.6, Neutrophils (%) (Auto) 78H, Lymphocytes (%) (Auto) 11L , Monocytes (%) (Auto) 8, Eosinophils (%) (Auto) 3, Basophils (%) (Auto) 0, [place] trophils # (Auto) 8.1H, Lymphocytes # (Auto) 1.1, Monocytes # (Auto) 0.8, Eosinophils # (Auto) 0.3, Basophils # (Auto) 0.0, Sodium Level 138, Potassium Level 3.7, Chloride Level 107, Carbon Dioxide Level 22, Anion Gap 9, Blood Urea Nitrogen 15, Creatinine 1.57H, Estimat Glomerular Filtration Rate 33, BUN/Creatinine Ratio 10, Glucose Level 80, Calcium Level 8.9, Corrected Calcium 9.9, Total Bilirubin 0.3, Aspartate Amino Transf (AST/SGOT) 11, Alanine Aminotransferase (ALT/SGPT) 12, Alkaline Phosphatase 73, Total Protein 6.4, Albumin 2.8L 08/14/19 05:24: Glucometer 84 Microbiology 08/12/19 Blood Culture - Preliminary, Resulted No growth 08/12/19 Urine Culture - Preliminary, Resulted Klebsiella pneumoniae Clinical Quality Measures DVT/VTE Risk/Contraindication: Risk Factor Score Per Nursin RFS Level Per Nursing on Admit: 4+=Very High Contraindications-Mechi: Other *list below* Other: MABLE Hill MED STUDMACY Aug 14, 2019 08:56 POS
[2019-08-14] MEDS ORDERED: TROUGH ORDER-PHARMACY XX NR (09:00)
--- NOTE | 2019-08-14 10:01 | Cardiology Progress Note ---
Subjective Date Seen by Provider: Aug 14, 2019 Time Seen by Provider: 09:58 Subjective/Events-last exam Patient is laying down in bed. Feeling better, still having swelling in her legs Review of Systems General: No Chills, No Night Sweats, No Fatigue, No Malaise, No Appetite, No Other HEENT: No Head Aches, No Visual Changes, No Eye Pain, No Ear Pain, No Dysphasia, No Sinus Congestion, No Post Nasal Drip, No Sore Throat, No Other Pulmonary: Dyspnea; No Cough, No Pleuritic Chest Pain, No Other Cardiovascular: Edema; No: Chest Pain, Palpitations, Orthopnea, Paroxysmal Noc. Dyspnea, Lt Headedness, Other Focused Exam Lactate Level 08/12/19 10:14: Lactic Acid Level 1.40 Objective-Cardiology Exam Last Set of Vital Signs Vital Signs 08/14/19 08/14/19 08:00 09:54 Temp 36.8 Pulse 78 Resp 18 B/P (MAP) 126/58 (80) Pulse Ox 94 O2 Delivery Nasal Cannula O2 Flow Rate 3.00 Capillary Refill : Less Than 3 SecondsLess Than 3 Seconds I&O Intake and Output 08/14/19 00:00 Intake Total 3925.0 ml Output Total 3200 ml Balance 725.0 ml Intake Oral 1210 ml IV Total 2715.0 ml Output Urine Total 3200 ml General: Alert, Oriented X3, Cooperative, No Acute Distress HEENT: Atraumatic, PERRLA Neck: Supple, No JVD Lungs: Clear to Auscultation, Normal Air Movement Heart: Normal S1, Normal S2, No Murmurs Abdomen: Normal Bowel Sounds, Soft Extremities: Other (Edema and erythema on the left leg) Skin: Other (Edema, erythema on the left leg) Neuro: Normal Speech, Strength at 5/5 X4 Ext Psych/Mental Status: Mental Status NL, Mood NL Results Lab Laboratory Tests 08/14/19 04:45 A/P-Cardiology Admission Diagnosis Cellulitis Paroxysmal atrial fibrillation Hypertension Hyperlipidemia Assessment/Plan Cellulitis on the left leg, recurrent, multiple admissions, receiving antibiotic, white counts are better, feeling better. Still having some tenderness at that area. Paroxysmal atrial fibrillation, had cardioversion April 2019, maintained on Cardizem and Multaq, unable to tolerate oral anticoagulation due to recurrent GI bleed Anemia, slightly worse after receiving IV fluids, continue to monitor GI bleed, stool occult blood is positive, endoscopy was unsuccessful in determining source of bleeding, it could be from the small bowel. Managed by primary care physician Chronic kidney disease stage III, continue to monitor renal function History of thoracentesis, had large pleural effusion, followed by Dr. Patel History of CVA with left-sided paralysis and h/o DVT in February 2019, unable to tolerate oral anticoagulation due to recurrent GI bleed Echo of February 19, 2019: normal left ventricular size and systolic function, ejection fraction 55-65 percent, left atrial dilatation, PA pressure of 20 mmHg Hypertension, monitor blood pressure Hyperlipidemia, monitor lipids Diabetes mellitus II, managed by primary care physician Obesity, BMI 40. Clinical Quality Measures DVT/VTE Risk/Contraindication: Risk Factor Score Per Nursin RFS Level Per Nursing on Admit: 4+=Very High Contraindications-Mechi: Other *list below* Other: cellultiis FARAZ ALCALA MD Aug 14, 2019 10:01 POS
--- NOTE | 2019-08-14 10:35 | Progress Note - Hospitalist ---
[facility] 08/14/19 1035: Subjective HPI/CC On Admission Date Seen by Provider: Aug 14, 2019 Time Seen by Provider: 08:[address] Rush CC: Left lower leg cellulitis with sepsis HPI: This is a very complex bedridden 68yoWF known to me from multiple hospital stays of [facility] who presented to the ER with fever and left leg pain and found to have sepsis, leukocytosis and cellulitis of the left lower leg. She reports that the left leg began hurting 2 days ago and worsened. She has chronic lymphedema complicating the situation. Patient has been bedridden for many months and last hospital stay she underwent endoscopies which revealed no source of blood loss even though occult blood was positive. Patient reports no other significant issues since she was last seen by tis examiner. Subjective/Events-last exam Per Jose Zacarias MSIII Patient was awake and in good mood Only complains of back pain but is normal when she is sitting or laying down for long periods of time. Denies fevers or chills States that she normally only wears oxygen at night. Review of Systems General: No Chills, No Other (fevers) HEENT: No Other (no symptoms) Pulmonary: No Dyspnea, No Cough Cardiovascular: No: Chest Pain, Palpitations Gastrointestinal: No: Nausea, Vomiting Musculoskeletal: back pain Focused Exam Lactate Level 08/12/19 10:14: Lactic Acid Level 1.40 Objective Exam Vital Signs Vital Signs Date Time Temp Pulse Resp B/P (MAP) Pulse Ox O2 Delivery O2 Flow Rate FiO2 08/14/19 09:54 94 Nasal Cannula 3.00 08/14/19 08:00 36.8 78 18 126/58 (80) Capillary Refill : Less Than 3 SecondsLess Than 3 Seconds General Appearance: No Apparent Distress, WD/WN Neck: Full Range of Motion, Normal Inspection Respiratory: Chest Non Tender, Normal Breath Sounds, No Accessory Muscle Use, No Respiratory Distress Cardiovascular: Regular Rate, Rhythm, Normal Peripheral Pulses (2/4 radial Bilaterally) Gastrointestinal: Non Tender, Soft Neurologic/Psychiatric: Alert, Oriented x3 Skin: Normal Color, Warm/Dry Comments Left Lower extremity showed redness and warmth. Feet bilaterally were pale. Results/Procedures Lab Laboratory Tests 08/14/19 04:45 Patient resulted labs reviewed. Assessment/Plan Assessment and Plan Assess & Plan/Chief Complaint Left Lower extremity cellulitis UTI Klebsiella Back pain Lovenox Home Meds Zosyn IVF Clinical Quality Measures DVT/VTE Risk/Contraindication: Risk Factor Score Per Nursin RFS Level Per Nursing on Admit: 4+=Very High Contraindications-Mechi: Other *list below* Other: cellultiis FADUMO RUSH DO 08/14/190: Subjective Subjective/Events-last exam Pt reports left leg is still painful Vancomycin and Zosyn maintained Leg looks improved but still hot to touch UTI is klebsiella, sensitivity pending Oxygen 05/04 when she used to use it prn Bowel movement yesterday T-max at 36.9 Review of Systems General: Fatigue Musculoskeletal: leg pain Objective Exam General Appearance: No Apparent Distress, WD/WN Respiratory: Lungs Clear Cardiovascular: Irregularly Irregular Skin: Rash (left leg erythema) Assessment/Plan Assessment and Plan Assess & Plan/Chief Complaint IV abx Monitor closely Prognosis poor Supervisory-Addendum Brief Verification & Attestation Participated in pt care: history, MDM, physical Personally performed: exam, history, MDM, supervision of care Care discussed with: Medical Student Procedures: n/a Results interpretation: Verified all documentation Verification and Attestation of Medical Student E/M Service A medical student performed and documented this service in my presence. I reviewed and verified all information documented by the medical student and made modifications to such information, when appropriate. I personally performed the physical exam and medical decision making. Fadumo Rush, Aug 14, 2019,21:30 MABLE [facility]AC[facility]AS MED STUD Aug 14, 2019 10:35 FADUMO MALLOY DO Aug 14, 2019 21:30 POS
[2019-08-14] MEDS ORDERED: VANCOMYCIN INJECTION 1,500 MG in NS IV 500 ML 500 ML IV SCH (11:00)
[2019-08-14] MEDS: ENOXAPARIN 40 MG/0.4 ML (LOVENOX) SYR SC SCH ×2 (11:49→23:48)
[2019-08-14] MEDS: PANTOPRAZOLE 40 MG (PROTONIX) TAB PO SCH (13:38)
[2019-08-14 15:54] VITALS: BP 113/56
[2019-08-14] MEDS: VITAMIN D3 5,000 UNITS (CHOLECALCIFEROL ) CAPSULE PO SCH (21:55)
[2019-08-14] MEDS: PATCH REMOVAL TP SCH (21:55)
[2019-08-14] MEDS: MELATONIN 3 MG TABLET PO SCH (21:57)
[2019-08-15] VITALS: BP 119/67
[2019-08-15] MEDS: ACETAMINOPHEN 500 MG TAB (TYLENOL) PO PRN (00:28)
[2019-08-15] MEDS: inSUlin ASPART (NovoLOG) 1 UNIT/0.01 ML (CHARGE PER UNIT) SC SCH (06:36)
[2019-08-15] MEDS: OMEGA 3 (FISH OIL) 1000 MG CAP PO SCH (06:50)
[2019-08-15] MEDS: KCL 10 MEQ TAB (MICRO K) PO SCH (06:50)
--- NOTE | 2019-08-15 07:57 | Cardiology Progress Note ---
Subjective Date Seen by Provider: Aug 15, 2019 Time Seen by Provider: 07:56 Subjective/Events-last exam Patient is laying down in bed, feeling better. No chest pain Review of Systems General: No Chills, No Night Sweats, No Fatigue, No Malaise, No Appetite, No Other HEENT: No Head Aches, No Visual Changes, No Eye Pain, No Ear Pain, No Dysphasia, No Sinus Congestion, No Post Nasal Drip, No Sore Throat, No Other Pulmonary: No Dyspnea, No Cough, No Pleuritic Chest Pain, No Other Cardiovascular: Edema; No: Chest Pain, Palpitations, Orthopnea, Paroxysmal Noc. Dyspnea, Lt Headedness, Other Focused Exam Lactate Level 08/12/19 10:14: Lactic Acid Level 1.40 Objective-Cardiology Exam Last Set of Vital Signs Vital Signs 08/15/19 00:00 Temp 37.0 Pulse 71 Resp 20 B/P (MAP) 119/67 (84) Pulse Ox 97 O2 Delivery Nasal Cannula O2 Flow Rate 2.00 Capillary Refill : Less Than 3 SecondsLess Than 3 Seconds I&O Intake and Output 08/15/19 00:00 Intake Total 1700 ml Output Total 3850 ml Balance -2150 ml Intake Oral 1700 ml Output Urine Total 3850 ml # Bowel Movements 2 General: Alert, Oriented X3, Cooperative, No Acute Distress HEENT: Atraumatic, PERRLA Neck: Supple, No JVD Lungs: Clear to Auscultation, Normal Air Movement Heart: Normal S1, Normal S2, No Murmurs Abdomen: Normal Bowel Sounds, Soft Extremities: Other (Edema and erythema on the left leg) Skin: Other (Edema, erythema on the left leg) Neuro: Normal Speech, Strength at 5/5 X4 Ext Psych/Mental Status: Mental Status NL, Mood NL Results Lab Laboratory Tests Test 08/14/19 09:15 08/14/19 11:39 08/14/19 15:34 08/14/19 20:46 Range/Units Vancomycin Level Trough 20.7 H 10.0-20.0 UG/ML Glucometer 230 H 161 H 232 H 70-110 MG/DL Test 08/15/19 06:30 Range/Units Glucometer 68 L 70-110 MG/DL A/P-Cardiology Admission Diagnosis Cellulitis Paroxysmal atrial fibrillation Hypertension Hyperlipidemia Assessment/Plan Cellulitis on the left leg, recurrent, multiple admissions, receiving antibiotic, white counts are better, feeling better. Still having some tenderness and erythema in the left leg Paroxysmal atrial fibrillation, had cardioversion April 2019, maintained on Cardizem and Multaq, unable to tolerate oral anticoagulation due to recurrent GI bleed Anemia, continue to monitor H&H GI bleed, stool occult blood is positive, endoscopy was unsuccessful in determining source of bleeding, it could be from the small bowel. Managed by primary care physician Chronic kidney disease stage III, continue to monitor renal function History of thoracentesis, had large pleural effusion, followed by Dr. Patel History of CVA with left-sided paralysis and h/o DVT in February 2019, unable to tolerate oral anticoagulation due to recurrent GI bleed Echo of February 19, 2019: normal left ventricular size and systolic function, ejection fraction 55-65 percent, left atrial dilatation, PA pressure of 20 mmHg Hypertension, monitor blood pressure Hyperlipidemia, monitor lipids Diabetes mellitus II, managed by primary care physician Obesity, BMI 40. Clinical Quality Measures DVT/VTE Risk/Contraindication: Risk Factor Score Per Nursin RFS Level Per Nursing on Admit: 4+=Very High Contraindications-Mechi: Other *list below* Other: cellultiis FARAZ ALCALA MD Aug 15, 2019 07:57 POS
[2019-08-15 08:00] VITALS: BP 128/75
[2019-08-15] MEDS: ADVAIR HFA 115/21 MCG INHALER 8 GM IH SCH (08:11)
--- NOTE | 2019-08-15 08:24 | Progress Note - Hospitalist ---
Subjective HPI/CC On Admission Date Seen by Provider: Aug 15, 2019 Time Seen by Provider: 07:[address] Tran CC: Left lower leg cellulitis with sepsis HPI: This is a very complex bedridden 68yoWF known to me from multiple hospital stays of [facility] who presented to the ER with fever and left leg pain and found to have sepsis, leukocytosis and cellulitis of the left lower leg. She reports that the left leg began hurting 2 days ago and worsened. She has chronic lymphedema complicating the situation. Patient has been bedridden for many months and last hospital stay she underwent endoscopies which revealed no source of blood loss even though occult blood was positive. Patient reports no other significant issues since she was last seen by tis examiner. Subjective/Events-last exam Patient states that she feels good Has no complaints and is ready to go home Klebsiella culture show resistance to only ampicillin Left extremity showed some improvement from yesterday. Still erythematous and was sensitive to palpation LLE still shows signs of infection Review of Systems General: No Chills, No Other (fevers) Pulmonary: No Dyspnea, No Cough Cardiovascular: No: Chest Pain, Edema Gastrointestinal: No: Nausea, Vomiting, Abdominal Pain Focused Exam Lactate Level Objective Exam Vital Signs Vital Signs Date Time Temp Pulse Resp B/P (MAP) Pulse Ox O2 Delivery O2 Flow Rate FiO2 08/15/19 08:11 94 Nasal Cannula 3.00 08/15/19 08:00 36.8 78 18 128/75 (92) Capillary Refill : Less Than 3 SecondsLess Than 3 Seconds General Appearance: No Apparent Distress, WD/WN, Obese Neck: Non Tender Respiratory: Chest Non Tender, Lungs Clear, No Accessory Muscle Use, No Respiratory Distress Cardiovascular: Regular Rate, Rhythm, No Murmur, Normal Peripheral Pulses (2/4 bilaterally radial) Gastrointestinal: No Distended Extremity: Other (LLE erythematous and sensitive to palpation. Feet bilaterally were pale. 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: Alert, Oriented x3, Normal Mood/Affect Skin: Normal Color, Warm/Dry Results/Procedures Lab Patient resulted labs reviewed. Assessment/Plan Assessment and Plan Assess & Plan/Chief Complaint Left Lower extremity cellulitis UTI Klebsiella resistant to ampicillin Back pain Vanco trough at 20.7 Need GFR and Creatinine to monitor Vancomycin Lovenox Home Meds Zosyn IVF Clinical Quality Measures DVT/VTE Risk/Contraindication: Risk Factor Score Per Nursin RFS Level Per Nursing on Admit: 4+=Very High Contraindications-Mechi: Other *list below* Other: cellultiis Supervisory-Addendum Brief Verification & Attestation Participated in pt care: other (RICHARD Zacarias with Dr. Tran) Personally performed: other (RICHARD Zacarias with Dr. Tran) Care discussed with: other (RICHARD Zacarias with Dr. Tran) Procedures: n/a RICHARD Zacarias with Dr. Chelsea ZACARIAS,MABLE MED STUD Aug 15, 2019 08:24 POS
--- NOTE | 2019-08-15 09:30 | NUR ---
CM FINALIZED DISCHARGE PLANNING: Patient is returning to [facility] skilled for therapies today. She will need clean clothes, oxygen, et possible wheel chair for transport. I have been in communication about this with Maricruz TINEO at [facility]. 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
[2019-08-15] MEDS: amLODIPine 5 MG (NORVASC) TAB PO SCH (09:51)
[2019-08-15] MEDS: FERROUS SULF 325 MG (IRON) TAB PO SCH (09:51)
[2019-08-15] MEDS: GABAPENTIN 300 MG (NEURONTIN) CAP PO SCH (09:51)
[2019-08-15] MEDS: BETHANECHOL 10 MG (URECHOLINE) TAB PO SCH (09:51)
[2019-08-15] MEDS: DILTIAZEM 180 MG (CARDIZEM CD) CAP PO SCH (09:51)
[2019-08-15] MEDS: meTOprolol SUCCINATE 100 MG (TOPROL XL) TAB PO SCH (09:52)
[2019-08-15] MEDS: DRONEDARONE TABLET 400 MG TABLET PO SCH (09:52)
[2019-08-15] MEDS: SUCRALFATE 1 GM (CARAFATE) TAB PO SCH (09:52)
[2019-08-15] MEDS: ASPIRIN E.C. 81 MG (ECOTRIN) TAB PO SCH (09:52)
[2019-08-15] MEDS: FUROSEMIDE 40 MG (LASIX) TAB PO SCH (09:52)
[2019-08-15] MEDS: MULTIVIT W/MINERALS TAB (THERAGRAN M) PO SCH (09:52)
[2019-08-15] MEDS: SENNA W/DOCUSATE (SENOKOT S) TABLET PO SCH (09:52)
[2019-08-15] MEDS: LIDOCAINE 4% (SALONPAS) PATCH TOP SCH (09:53)
[2019-08-15] MEDS: PIPERACILLIN/TAZO 4.5 GM/NS 100 ML IV SCH ×2 (10:00)
[2019-08-15] MEDS ORDERED: ENOX40DI8 SC ×2 (10:01)
[2019-08-15] MEDS ORDERED: CEFD300C3 PO ×2 (10:01)
[2019-08-15] MEDS ORDERED: LINE600T5 PO ×2 (10:01)
[2019-08-15] MEDS ORDERED: POTA10TA6 PO ×2 (10:01)
--- NOTE | 2019-08-15 11:24 | Discharge Inst-Skilled Nursing ---
Discharge Inst-Skilled NF Reconcile Patient Problems Problems Reviewed?: Yes Chief Complaint Per Dr. Tran CC: Left lower leg cellulitis with sepsis HPI: This is a very complex bedridden 68yoWF known to me from multiple hospital stays of [facility] who presented to the ER with fever and left leg pain and found to have sepsis, leukocytosis and cellulitis of the left lower leg. She reports that the left leg began hurting 2 days ago and worsened. She has chronic lymphedema complicating the situation. Patient has been bedridden for many months and last hospital stay she underwent endoscopies which revealed no source of blood loss even though occult blood was positive. Patient reports no other significant issues since she was last seen by tis examiner. Patient Instructions Patient Problems: left leg cellulitis Goal: resolve debility Consult/Follow Up/Orders Follow Up Appt.: [facility] 1 week Skilled NF Admit to: [facility] Certification ([facility]) I certify that SNF services are required to be given on an inpatient basis because of the above named patient's need for long-term care on a continuing basis for the conditions(s) for which he/she was receiving inpatient hospital services prior to his/her transfer to the [facility]. [facility] Facility Order: Nursing Services, Wirer Maintenance-Evaluate & Treat, Physical Therapy-Evaluate & Treat, Speech Language-Evaluate & Treat, Wound Care-Eval/Treat Oxygen Delivery Method: Nasal Cannula Discharge Diet: ADA Diet Daily Activity as Tolerated: Yes Resuscitation Status: Full Code New & Resume Previous Orders New Medications: Cefdinir (Cefdinir) 300 Mg Capsule 300 MG PO BID for 3 Days, CAP Linezolid (Zyvox) 600 Mg Tablet 600 MG PO BID for 10 Days, TAB Enoxaparin Sodium (Enoxaparin Sodium) 40 Mg/0.4 Ml Syringe 40 MG SC Q12H for 14 Days, SYRINGE Potassium Chloride (Klor-Con 10) 10 Meq Tablet.er 10 MEQ PO DAILY@0700 for 14 Days, TAB Continued Medications: Acetaminophen (Acetaminophen) 500 Mg Tablet 1000 MG PO Q6H PRN for PAIN-MILD OR TEMPATURE, TAB Albuterol Sulfate (Albuterol Sulfate) 2.5 Mg/3 Ml Vial.neb 2.5 MG NEB Q4H PRN for SHORTNESS OF BREATH, EA Amlodipine Besylate (Amlodipine Besylate) 5 Mg Tablet 5 MG PO DAILY, TAB (This prescription has been renewed) HOLD IF SBP<110 Aspirin (Aspirin EC) 81 Mg Tablet.dr 81 MG PO BID, TAB (This prescription has been renewed) Atorvastatin Calcium (Atorvastatin Calcium) 40 Mg Tablet 40 MG PO HS, TAB B Complex with Vitamin C (Super B Complex-Vitamin C) 1 Each Tablet 1 TAB PO DAILY, TAB (This prescription has been renewed) Bethanechol Chloride (Urecholine) 10 Mg Tablet 10 MG PO BID, TAB (This prescription has been renewed) Bisacodyl (Bisacodyl) 10 Mg Supp.rect 10 MG RC DAILY PRN for CONSTIPATION-4TH LINE, SUPP.RECT (This prescription has been renewed) [Blood Sugar 360] () 1 CAP PO UD PRN for BLOOD SUGAR MAINTENANCE, CAP Budesonide/Formoterol Fumarate (Symbicort 160-4.5 Mcg Inhaler) 10.2 Gm Hfa.aer.ad 2 PUFF IH BID, INHALER Cholecalciferol (Vitamin D) 5,000 Unit Capsule 5000 UNIT PO HS, CAP Cinnamon Bark (Cinnamon) 500 Mg Capsule 1000 MG PO DAILY, CAP TAKES 2 (500 MG) CAPSULES Citalopram Hydrobromide (Citalopram HBr) 10 Mg Tablet 10 MG PO DAILY, TAB Cranberry Extract (Cranberry) 500 Mg Tablet 1000 MG PO DAILY, TAB (This prescription has been renewed) [digize oil] () TOP UD PRN for DIGESTIVE DIFFICULTIES, EA MAY BE USED TOPICALLY OR DABBED INSIDE MOUTH ON CHEEK, KEEP AT BEDSIDE AND SELF ADMINISTER FOR DIGESTIVE DIFFICULTIES. Diltiazem HCl (Diltiazem ER) 180 Mg Tab.er.24h 180 MG PO DAILY, TAB (This prescription has been renewed) Docusate Sodium (Colace) 100 Mg Capsule 100 MG PO BID, CAP (This prescription has been renewed) Dronedarone HCl (Multaq) 400 Mg Tablet 400 MG PO BID, TAB (This prescription has been renewed) Dulaglutide (Trulicity) 1.5 Mg/0.5 Ml Pen.injctr 1.5 MG SQ We, EA Empagliflozin (Jardiance) 10 Mg Tablet 10 MG PO DAILY, TAB (This prescription has been renewed) Ferrous Sulfate (Iron) 325 Mg Tablet 325 MG PO DAILY, TAB (This prescription has been renewed) Fluticasone Propionate (Fluticasone Propionate) 16 Gm Hersey.susp 2 SPRAYS NS DAILY, EA (This prescription has been renewed) Furosemide (Furosemide) 40 Mg Tablet 40 MG PO BID, TAB Gabapentin (Gabapentin) 300 Mg Capsule 300 MG PO BID, CAP (This prescription has been renewed) Gluc Angulo/Chondro Angulo A/Vit C/Mn (Glucosamine Chondroitin Tab) 1 Each Tablet 2 TAB PO DAILY, TAB (This prescription has been renewed) Guaifenesin/Dextromethorphan (Lorraine-Tussin Dm Syrup) 473 Ml Syrup 10 ML PO Q4H PRN for COUGH, ML (This prescription has been renewed) Insulin Detemir (Levemir Flextouch) 100 Unit/1 Ml Insuln.pen 35 UNIT SQ HS, EA Insulin Detemir (Levemir Flextouch) 100 Unit/1 Ml Insuln.pen 40 UNIT SQ DAILY, EA Lidocaine (Lidocare) 1 Each Adh..patch 1 PATCH TD DAILY, PATCH (This prescription has been renewed) 4% APPLY TO UPPER RIGHT THIGH Magnesium Hydroxide (Milk of Magnesia) 400 Mg/5 Ml Oral.susp 30 ML PO DAILY PRN for CONSTIPATION-7TH LINE, ML (This prescription has been renewed) Megestrol Acetate (Megestrol Acetate) 40 Mg Tablet 80 MG PO DAILY, TAB (This prescription has been renewed) TAKES 2 (40MG) TABLETS Melatonin (Melatonin) 3 Mg Tablet 3 MG PO HS, TAB (This prescription has been renewed) Metoprolol Succinate (Metoprolol Succinate) 100 Mg Tab.er.24h 100 MG PO DAILY, TAB HOLD FOR SYSTOLIC BP <100 AND HEART RATE <60 Miconazole Nitrate (Miconazole Nitrate) 10 Gm Powder TOP BID, EA (This prescription has been renewed) APPLY TO GROIN AND UNDER BREASTS Multivits W-Fe,Other Min/Lut (Essential Balance Tablet) 1 Each Tablet 1 TAB PO TID, TAB [place]-3/Dha/Epa/Fish Oil ([place] 3 500 Softgel) 1 Each Capsule 2 CAP PO DAILY, CAP (This prescription has been renewed) Oxycodone HCl (Oxycodone HCl) 5 Mg Tablet 5 MG PO Q4H PRN for PAIN-SEVERE (8-10) (This prescription has been renewed) Pantoprazole Sodium (Pantoprazole Sodium) 40 Mg Tablet.dr 40 MG PO 1400, TAB (This prescription has been renewed) Phenyleph/Mineral Oil/Petrolat (Gs Hemorrhoidal Ointment) 57 Gm Oint.appl RC Q12H PRN for HEMORRHOIDS, TUBE (This prescription has been renewed) Sodium Chloride (Gregg) 104 Ml Hersey 2 SPRAYS NS Q4H PRN for DRY NOSE, SPRAY Sucralfate (Carafate) 1 Gm Tablet 1 GM PO QID, TAB (This prescription has been renewed) Valerian Root (Valerian Root) 500 Mg Capsule 530 MG PO DAILY PRN for ANXIETY, CAP Fadumo Tran Aug 15, 2019 11:23 Pneu Vac Indicated: Yes FADUMO TRAN DO Aug 15, 2019 11:24 POS
--- NOTE | 2019-08-15 11:32 | Discharge Summary ---
MABLE ZACARIAS [facility] 08/15/19 1132: Diagnosis/Chief Complaint Date of Admission Aug 12, 2019 at 11:45 Date of Discharge 08/15/19 Discharge Date: Aug 15, 2019 Discharge Time: 11:27 Admission Diagnosis Assessment: Sepsis Left lower leg cellulitis AF Bedridden NH home status Renal Insufficiency Plan: Oral antibiotics Lovenox Home meds Primary Care Roberto Ramírez MD Discharge Diagnosis Left Lower leg cellulitis Bed Ridden Hypertension Hyperlipidemia Renal Insufficiency (1) Sepsis Status: Acute (2) Cellulitis of left lower extremity without foot Status: Acute (3) Chronic kidney disease Status: Chronic (4) ANKIT (obstructive sleep apnea) Status: Chronic (5) Normocytic anemia Status: Chronic (6) Paroxysmal atrial fibrillation Status: Acute (7) History of CVA (cerebrovascular accident) Status: Chronic (8) Bullous pemphigoid Status: Chronic (9) At risk for deep venous thrombosis Status: Acute (10) Bedbound Status: Chronic (11) REFLUX (12) Insulin dependent diabetes mellitus with complications Status: Chronic (13) BMI 40.0-44.9, adult Status: Chronic (14) Depression Status: Chronic (15) Refusal of blood transfusions as patient is Yarsani Discharge Summary Procedures/Consulations Cardiology - Dr. Calderon Discharge Physical Exam Allergies: Coded Allergies: sulfamethoxazole (Verified Allergy, Unknown, 10/13/17) trimethoprim (Verified Allergy, Unknown, 10/13/17) Vitals & I&Os Vital Signs Date Time Temp Pulse Resp B/P (MAP) Pulse Ox O2 Delivery O2 Flow Rate FiO2 08/15/19 08:11 94 Nasal Cannula 3.00 08/15/19 08:00 36.8 78 18 128/75 (92) General Appearance: No Apparent Distress, WD/WN Respiratory: Chest Non Tender, Lungs Clear, No Accessory Muscle Use, No Respiratory Distress Cardiovascular: Regular Rate, Rhythm, No Murmur, Normal Peripheral Pulses (Radial 2/4 bilaterally) Gastrointestinal: Non Tender, Soft Extremity: Other (LLE with erythema) Skin: Normal Color, Warm/Dry Neurologic/Psychiatric: Alert, Oriented x3 Hospital Course Was the Problem List Reviewed?: No Patient presented to ER on 09/11/19 by private vehicle for fever of 101.7 and lethargy. Left lower extremity showed redness and swelling and patient has history of recurrent cellulitis. WBC was 16,000 with lactic acid of 1.4. Patient has multiple comorbidities including a UTI at the time positive for Klebsiella. Patient will continue on oral antibiotics and will follow-up with PCP. Labs (last 24 hrs) Laboratory Tests 08/14/19 11:39: Glucometer 230H 08/14/19 15:34: Glucometer 161H 08/14/19 20:46: Glucometer 232H 08/15/19 06:30: Glucometer 68L 08/15/19 09:23: Glucometer 269H Microbiology 08/12/19 Blood Culture - Preliminary, Resulted No growth 08/12/19 Urine Culture - Final, Complete Klebsiella pneumoniae Patient resulted labs reviewed. Pending Labs Laboratory Tests 08/15/19 06:30: Glucometer 68 08/15/19 09:23: Glucometer 269 Discussion & Recommendations Discharge Planning: <30 minutes discharge planning Discharge Home Medications: Active Scripts Active Zyvox (Linezolid) 600 Mg Tablet 600 Mg PO BID 10 Days Cefdinir 300 Mg Capsule 300 Mg PO BID 3 Days Klor-Con 10 (Potassium Chloride) 10 Meq Tablet.er 10 Meq PO DAILY@0700 14 Days Enoxaparin Sodium 40 Mg/0.4 Ml Syringe 40 Mg SC Q12H 14 Days Reported Oxycodone HCl 5 Mg Tablet 5 Mg PO Q4H PRN Megestrol Acetate 40 Mg Tablet 80 Mg PO DAILY TAKES 2 (40MG) TABLETS Lidocare (Lidocaine) 1 Each Adh..patch 1 Patch TD DAILY 4% APPLY TO UPPER RIGHT THIGH Levemir Flextouch (Insulin Detemir) 100 Unit/1 Ml Insuln.pen 40 Unit SQ DAILY Carafate (Sucralfate) 1 Gm Tablet 1 Gm PO QID Multaq (Dronedarone HCl) 400 Mg Tablet 400 Mg PO BID Amlodipine Besylate 5 Mg Tablet 5 Mg PO DAILY HOLD IF SBP<110 Furosemide 40 Mg Tablet 40 Mg PO BID Diltiazem ER (Diltiazem HCl) 180 Mg Tab.er.24h 180 Mg PO DAILY Atorvastatin Calcium 40 Mg Tablet 40 Mg PO HS Gs Hemorrhoidal Ointment (Phenyleph/Mineral Oil/Petrolat) 57 Gm Oint.appl RC Q12H PRN Milk of Magnesia (Magnesium Hydroxide) 400 Mg/5 Ml Oral.susp 30 Ml PO DAILY PRN Albuterol Sulfate 2.5 Mg/3 Ml Vial.neb 2.5 Mg NEB Q4H PRN Miconazole Nitrate 10 Gm Powder TOP BID APPLY TO GROIN AND UNDER BREASTS Pantoprazole Sodium 40 Mg Tablet. 40 Mg PO 1400 Jardiance (Empagliflozin) 10 Mg Tablet 10 Mg PO DAILY [place] 3 500 Softgel ([place]-3/Dha/Epa/Fish Oil) 1 Each Capsule 2 Cap PO DAILY Urecholine (Bethanechol Chloride) 10 Mg Tablet 10 Mg PO BID Aspirin EC (Aspirin) 81 Mg Tablet. 81 Mg PO BID Lorraine-Tussin Dm Syrup (Guaifenesin/Dextromethorphan) 473 Ml Syrup 10 Ml PO Q4H PRN Trulicity (Dulaglutide) 1.5 Mg/0.5 Ml Pen.injctr 1.5 Mg SQ WE Gabapentin 300 Mg Capsule 300 Mg PO BID Colace (Docusate Sodium) 100 Mg Capsule 100 Mg PO BID Iron (Ferrous Sulfate) 325 Mg Tablet 325 Mg PO DAILY Fluticasone Propionate 16 Gm Bradley.susp 2 Sprays NS DAILY Glucosamine Chondroitin Tab (Gluc Angulo/Chondro Angulo A/Vit C/Mn) 1 Each Tablet 2 Tab PO DAILY Melatonin 3 Mg Tablet 3 Mg PO HS Cranberry (Cranberry Extract) 500 Mg Tablet 1,000 Mg PO DAILY Super B Complex-Vitamin C (B Complex with Vitamin C) 1 Each Tablet 1 Tab PO DAILY Citalopram HBr (Citalopram Hydrobromide) 10 Mg Tablet 10 Mg PO DAILY [Blood Sugar 360] 1 Cap PO UD PRN Valerian Root 500 Mg Capsule 530 Mg PO DAILY PRN Bisacodyl 10 Mg Supp.rect 10 Mg RC DAILY PRN Acetaminophen 500 Mg Tablet 1,000 Mg PO Q6H PRN Mono (Sodium Chloride) 104 Ml Bradley 2 Sprays NS Q4H PRN [digize oil] TOP UD PRN MAY BE USED TOPICALLY OR DABBED INSIDE MOUTH ON CHEEK, KEEP AT BEDSIDE AND SELF ADMINISTER FOR DIGESTIVE DIFFICULTIES. Cinnamon (Cinnamon Bark) 500 Mg Capsule 1,000 Mg PO DAILY TAKES 2 (500 MG) CAPSULES Symbicort 160-4.5 Mcg Inhaler (Budesonide/Formoterol Fumarate) 10.2 Gm Hfa.aer.ad 2 Puff IH BID Levemir Flextouch (Insulin Detemir) 100 Unit/1 Ml Insuln.pen 35 Unit SQ HS Essential Balance Tablet (Multivits W-Fe,Other Min/Lut) 1 Each Tablet 1 Tab PO TID Metoprolol Succinate 100 Mg Tab.er.24h 100 Mg PO DAILY HOLD FOR SYSTOLIC BP <100 AND HEART RATE <60 Vitamin D (Cholecalciferol) 5,000 Unit Capsule 5,000 Unit PO HS Instructions to patient/family Please see electronic discharge instructions given to patient. Clinical Quality Measures DVT/VTE Risk/Contraindication: Risk Factor Score Per Nursin RFS Level Per Nursing on Admit: 4+=Very High Contraindications-Mechi: Other *list below* Other: cellultiis Supervisory-Addendum Brief Verification & Attestation Participated in pt care: other (RICHARD Zacarias with Dr. Rush) Personally performed: other (RICHARD Zacarias with Dr. Rush) Care discussed with: other (RICHARD Zacarias with Dr. Rush) Procedures: n/a RICHARD Zacarias with Dr. Chelsea RUSH,FADUMO DO 08/15/19 2184: Diagnosis/Chief Complaint Discharge Diagnosis (1) Cellulitis of left lower extremity without foot Status: Acute (2) Sepsis Status: Acute (3) UTI (urinary tract infection) Status: Acute (4) Morbid obesity Status: Chronic (5) IDDM (insulin dependent diabetes mellitus) Status: Chronic (6) Refusal of blood transfusions as patient is Yarsani (7) Bedbound Status: Chronic Discharge Summary Discharge Physical Exam Allergies: Coded Allergies: sulfamethoxazole (Verified Allergy, Unknown, 10/13/17) trimethoprim (Verified Allergy, Unknown, 10/13/17) General Appearance: No Apparent Distress, WD/WN, Chronically ill, Obese Respiratory: Lungs Clear Cardiovascular: Regular Rate, Rhythm Neurologic/Psychiatric: Alert, Oriented x3 Hospital Course Was the Problem List Reviewed?: Yes Hospital course: Pt had a standard hospital course for four days when she was ad mitted for sepsis of left lower leg cellulitis. Vancomycin and Zosyn empirically placed because of the severity of the cellulitis with the chronic lymphedema Pt. She tolerated treatment, labs returned back to normal and she was ready to go back to [facility] on skilled care and she will maintain Zyvox for ten days twice daily and Cefdinir for UTI treatment. Discussion & Recommendations Discharge Planning: <30 minutes discharge planning Supervisory-Addendum Brief Verification & Attestation Participated in pt care: history, MDM, physical Personally performed: exam, history, MDM, supervision of care Care discussed with: Medical Student Procedures: n/a Results interpretation: Verified all documentation Verification and Attestation of Medical Student E/M Service A medical student performed and documented this service in my presence. I reviewed and verified all information documented by the medical student and made modifications to such information, when appropriate. I personally performed the physical exam and medical decision making. Fadumo Rush, Aug 15, 2019,21:53 Problem Qualifiers (1) Sepsis: Sepsis type: sepsis due to unspecified organism Sepsis acute organ dysfunction status: without acute organ dysfunction Qualified Codes: A41.9 - Sepsis, unspecified organism MABLE ZACARIAS Aug 15, 2019 11:32 FADUMO MALLOY DO Aug 15, 2019 21:53 POS
[2019-08-15 12:30] VITALS: BP 128/75
[2019-08-16] MEDS ORDERED: TROUGH ORDER-PHARMACY XX NR (10:00)
[2019-08-16] MEDS ORDERED: NON-FORMULARY MEDICATION 1 EA EA (Dulaglutide (Trulicity) 1.5 MG) SQ SCH (16:30)
--- OUTSIDE RECORDS SUMMARY | 2019-09-06 21:51 | XMS REPORT | Continuity of Care Document ---
Author Organization Unknown Address Unknown Phone Unavailable Allergies Active Description Code Type Severity Reaction Onset Reported/Identified Relationship to Patient Clinical Status Yes NKANo Known Allergies NKA Miscellaneous Allergy Unknown N/A 06/16/2008 Yes sulfamethoxazole [id number] Drug Allergy Unknown N/A 10/11/2018 Yes trimethoprim [id number] Drug Allergy Unknown N/A 10/11/2018 Medications There is no data. Problems Date Dx Coded Attending Type Code Diagnosis Diagnosed By 01/11/2011 Ot 078.3 CAT- SCRATCH DISEASE 01/11/2011 Ot 891.0 OPEN WND KNEE/LEG/ANKLE 01/11/2011 Ot E000.8 OT ER EXTERNAL CAUSE STATUS 01/11/2011 Ot E849.0 ACC IDENT IN HOME 01/11/2011 Ot E906.3 ANI MAL BITE NEC 01/11/2011 Ot V06.1 [id number], COMBINED [ 11/03/2011 Ot 041.11 MET HICILLIN SUSCEPTIBLE STAPHYLOCOCCUS A 11/03/2011 Ot 250.02 CECIL B LATRELL WO COMPL, TYPE II OR UNSPEC TY 11/03/2011 Ot 272.4 HYPE RLIPIDEMIA NEC/NOS 11/03/2011 Ot 342.90 UNS PEC HEMIPLEGIA HEMIPARESIS UNSPEC S 11/03/2011 Ot 401.9 HYPE RTENSION NOS 11/03/2011 Ot 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 11/03/2011 Ot 564.00 UNS PEC CONSTIPATION 11/03/2011 Ot 599.0 URIN TRACT INFECTION NOS 11/03/2011 Ot 784.42 DYS PHONIA 11/03/2011 Ot 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, CEREBRAL INFARCTION 11/03/2011 Ot V58.69 OTH MED,LT,CURRENT USE 12/14/2011 Ot 250.00 CECIL B LATRELL WO COMPL, TYPE II OR UNSPEC TY 12/14/2011 Ot 272.1 PURE HYPERGLYCERIDEMIA 12/14/2011 Ot 272.4 HYPE RLIPIDEMIA NEC/NOS 12/14/2011 Ot 276.1 HYPO SMOLALITY 12/14/2011 Ot 278.00 OBE SITY, NOS 12/14/2011 Ot 300.4 DYST HYMIC DISORDER 12/14/2011 Ot 401.9 HYPE RTENSION NOS 12/14/2011 Ot 433.10 CAR OTID ARTERY OCCLUSION W O CEREBRAL IN 12/14/2011 Ot 438.20 LAT E EFF-CEREBR DIS,HEMIPLEGIA AFFECTING 12/14/2011 Ot 438.82 OTH LATE EFF- CEREB DIS, DYSPHAGIA 12/14/2011 Ot 518.0 PULM ONARY COLLAPSE 12/14/2011 Ot 584.9 ACUT E RENAL FAILURE, UNSPECIFIED 12/14/2011 Ot 596.54 GREGG ROGENIC BLADDER, NOT OTHERWISE SPECIF 12/14/2011 Ot 599.0 URIN TRACT INFECTION NOS 12/14/2011 Ot 787.21 DYS PHAGIA, ORAL PHASE 12/14/2011 Ot 788.20 RET ENTION OF URINE NOS 12/14/2011 Ot V57.1 PHYS ICAL THERAPY NEC 12/14/2011 Ot V57.21 ENC OUNTER FOR OCCUPATIONAL THERAPY 12/14/2011 Ot V57.3 CARE INVOLVING SPEECH-LANGUAGE THERAPY 12/14/2011 Ot V58.67 NATHAN G-TERM (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 12/14/2011 Ot V85.39 BOD Y MASS INDEX 39.0-39.9, ADULT 02/04/2012 Ot 250.00 CECIL B LATRELL WO COMPL, TYPE II OR UNSPEC TY 02/04/2012 Ot 272.4 HYPE RLIPIDEMIA NEC/NOS 02/04/2012 Ot 278.01 MOR BID OBESITY 02/04/2012 Ot 401.9 HYPE RTENSION NOS 02/04/2012 Ot 794.30 ABN CARDIOVASC STUDY NOS 02/04/2012 Ot 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, CEREBRAL INFARCTION 02/04/2012 Ot V58.63 NATHAN G- TERM(CURRENT)USE OF ANTIPLATELET/AN 02/04/2012 Ot V58.66 NATHAN G-TERM (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 ASPIRIN 02/04/2012 Ot V58.67 NATHAN G-TERM (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 02/04/2012 Ot V58.69 OTH MED,LT,CURRENT USE 02/04/2012 Ot V85.38 BOD Y MASS INDEX 38.0-38.9, ADULT 10/02/2014 KARLY CHOWDHURY, MARIAN Victor Ot 599 .0 10/03/2014 KYLE PA, SWATHI Victor Ot 397.0 10/03/2014 KYLE PA, SWATHI Victor Ot 401.9 10/03/2014 KYLE PA, SWATHI Victor Ot 424.0 10/03/2014 KYLE PA, SWATHI Victor [...] V12.54 12/24/2014 KARLY CHOWDHURY, MARIAN Victor Ot 599 .0 12/24/2014 Ot 401.9 12/24/2014 Ot 434.91 12/24/2014 Ot 786.09 12/24/2014 KYLE PA, SWATHI Victor Ot 397.0 12/24/2014 KYLE PA, SWATHI Victor Ot 401.9 12/24/2014 KYLE PA, SWATHI Victor Ot 424.0 12/24/2014 KYLE PA, SWATHI Victor Ot 429.9 12/24/2014 KYLE PA, SWATHI Victor Ot V12.54 12/24/2014 KARLY CHOWDHURY, MARIAN Victor Ot 599 .0 12/24/2014 KARLY CHOWDHURY, MARIAN Victor Ot 599 .0 12/24/2014 KARLY CHOWDHURY, MARIAN Victor Ot 599 .0 01/11/2015 MARIAN BRANDT MD Ot 599 .0 03/13/2016 Ot 401.9 HYPE RTENSION NOS 03/13/2016 Ot 434.91 CER EBRAL ART OCCLUSION NOS W CEREBRAL IN 03/13/2016 Ot 786.09 RES PIRATORY ABNORM NEC 03/13/2016 KYLE PA, SWATHI Victor Ot 397.0 TRICUSPID VALVE DISEASE 03/13/2016 SWATHI RAMIREZ Ot 401.9 HYPERTENSION NOS 03/13/2016 KYLE FISHMAN SWATHI K Ot 424.0 MITRAL VALVE DISORDER 03/13/2016 KYLE FISHMAN SWATHI K Ot 429.9 HEART DISEASE NOS 03/13/2016 KYLE FISHMAN SWATHI K Ot V12.54 PERSONAL HX OF TIA, CEREBRAL INFARCTION 03/13/2016 MARIAN BRANDT MD Ot 599 .0 URIN TRACT INFECTION NOS 03/13/2016 MAKRO LAUREN BULK TRUCK DRIVER Ot R22.0 LOCALIZED SWELLING, MASS AND LUMP, HEAD 03/13/2016 Ot 401.9 HYPE RTENSION NOS 03/13/2016 Ot 434.91 CER EBRAL ART OCCLUSION NOS W CEREBRAL IN 03/13/2016 Ot 786.09 RES PIRATORY ABNORM NEC 03/13/2016 KYLE FISHMAN SWATHI K Ot 397.0 TRICUSPID VALVE DISEASE 03/13/2016 SWATHI RAMIREZ Ot 401.9 HYPERTENSION NOS 03/13/2016 KYLE FISHMAN SWATHI K Ot 424.0 MITRAL VALVE DISORDER 03/13/2016 KYLE FISHMAN SWATHI K Ot 429.9 HEART DISEASE NOS 03/13/2016 KYLE FISHMAN SWATHI K Ot V12.54 PERSONAL HX OF TIA, CEREBRAL INFARCTION 03/13/2016 MARIAN BRANDT MD Ot 599 .0 URIN TRACT INFECTION NOS 03/13/2016 LEONIDAS MARKO Willi BULK TRUCK DRIVER Ot R22.0 LOCALIZED SWELLING, MASS AND LUMP, HEAD 03/18/2016 LEONIDAS, MARKO J BULK TRUCK DRIVER Ot R22.0 LOCALIZED SWELLING, MASS AND LUMP, HEAD 04/06/2016 LEONIDAS, MARKO Willi BULK TRUCK DRIVER Ot R22.0 LOCALIZED SWELLING, MASS AND LUMP, HEAD 04/09/2016 ESTEPHANIE STANFORD MD Ot J32 .9 CHRONIC SINUSITIS, UNSPECIFIED 04/09/2016 ESTEPHANIE STANFORD MD, Ot J33 .9 NASAL POLYP, UNSPECIFIED 04/09/2016 ESTEPHANIE STANFORD MD Ot Z01.818 ENCOUNTER FOR OTHER PREPROCEDURAL EXAMIN 04/09/2016 ESTEPHANIE STANFORD MD Ot Z11 .2 ENCOUNTER FOR SCREENING FOR OTHER BACTER 04/10/2016 STANFORD MD, ESTEPHANIE P Ot J32 .9 CHRONIC SINUSITIS, UNSPECIFIED 04/10/2016 ESTEPHANIE STANFORD MD Ot J33 .9 NASAL POLYP, UNSPECIFIED 04/10/2016 ESTEPHANIE STANFORD MD Ot Z01.818 ENCOUNTER FOR OTHER PREPROCEDURAL EXAMIN 04/10/2016 ESTEPHANIE STANFORD MD Ot Z11 .2 ENCOUNTER FOR SCREENING FOR OTHER BACTER 04/10/2016 MARKO LAUREN BULK TRUCK DRIVER Ot R22.0 LOCALIZED SWELLING, MASS AND LUMP, HEAD 04/16/2016 ESTEPHANIE STANFORD MD Ot E11 .9 TYPE 2 DIABETES MELLITUS WITHOUT COMPLIC 04/16/2016 ESTEPHANIE STANFORD MD Ot J32 .0 CHRONIC MAXILLARY SINUSITIS 04/16/2016 ESTEPHANIE STANFORD MD Ot J32 .1 CHRONIC FRONTAL SINUSITIS 04/16/2016 ESTEPHANIE STANFORD MD Ot J32 .2 CHRONIC ETHMOIDAL SINUSITIS 04/16/2016 ESTEPHANIE STANFORD MD Ot 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 03/29/2017 BOBBI CABRERA [...] MD Ot I25.10 ATHSCL HEART DISEASE OF [place] CORONARY 03/29/2017 BOBBI CABRERA MD Ot I69.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 03/29/2017 BOBBI CABRERA MD Ot J44.9 CHRONIC OBSTRUCTIVE PULMONARY DISEASE, U 03/29/2017 BOBBI CABRERA MD Ot J98.11 ATELECTASIS 03/29/2017 BOBBI CABRERA MD Ot N28.9 DISORDER OF KIDNEY AND URETER, UNSPECIFI 03/29/2017 BOBBI CABRERA MD Ot R07.89 OTHER CHEST PAIN 03/29/2017 BOBBI CABRERA MD Ot R09.2 RESPIRATORY ARREST 03/29/2017 BOBBI CBARERA MD Ot R47.1 DYSARTHRIA AND ANARTHRIA 03/29/2017 BOBBI CABRERA MD Ot T17.920A FOOD IN RESP TRACT, PART UNSP CAUSING 03/29/2017 BOBBI CABRERA MD Ot Z68.42 BODY MASS INDEX (BMI) 45.0-49.9, ADULT 03/29/2017 BOBBI CABRERA MD Ot 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 03/29/2017 BOBBI CABRERA MD, Ot Z87.11 PERSONAL HISTORY OF PEPTIC ULCER DISEASE 03/29/2017 BOBBI CABRERA MD Ot Z87.19 PERSONAL HISTORY OF OTHER DISEASES OF TH 03/29/2017 BOBBI CABRERA MD Ot Z87.891 PERSONAL HISTORY [...] MD Ot I25.10 ATHSCL HEART DISEASE OF [place] CORONARY 03/30/2017 BOBBI CABRERA MD Ot I69.354 [...] ADULT 03/30/2017 BOBBI CABRERA MD Ot 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 03/30/2017 BOBBI CABRERA [...] MD Ot I25.10 ATHSCL HEART DISEASE OF [place] CORONARY 03/30/2017 BOBBI CABRERA MD Ot I69.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 03/30/2017 BOBBI CABRERA MD, Ot J44.9 CHRONIC OBSTRUCTIVE PULMONARY DISEASE, U 03/30/2017 BOBBI CABRERA MD, Ot J98.11 ATELECTASIS 03/30/2017 BOBBI CABRERA MD, Ot N28.9 DISORDER OF KIDNEY AND URETER, UNSPECIFI 03/30/2017 BOBBI CABRERA MD, Ot R07.89 OTHER CHEST PAIN 03/30/2017 BOBBI CABRERA MD Ot R09.2 RESPIRATORY ARREST 03/30/2017 BOBBI CABRERA MD, Ot R47.1 DYSARTHRIA AND ANARTHRIA 03/30/2017 BOBBI CABRERA MD, Ot R79.89 OTHER SPECIFIED ABNORMAL FINDINGS OF BLO 03/30/2017 BOBBI CABRERA MD, Ot T17.920A FOOD IN RESP TRACT, PART UNSP CAUSING 03/30/2017 BOBBI CABRERA MD Ot Y92.[address] IN CARE HOME PLACE 03/30/2017 BOBBI CABRERA MD Ot Z66 DO NOT RESUSCITATE 03/30/2017 BOBBI CABRERA MD, Ot Z68.42 BODY MASS INDEX (BMI) 45.0-49.9, ADULT 03/30/2017 BOBBI CABRERA MD Ot Z79.4 [facility] (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 03/30/2017 BOBBI CABRERA MD Ot Z87.11 PERSONAL HISTORY OF PEPTIC ULCER DISEASE 03/30/2017 BOBBI CABRERA MD, Ot Z87.19 PERSONAL HISTORY OF OTHER DISEASES OF TH 03/30/2017 BOBBI CABRERA MD, Ot Z87.891 PERSONAL HISTORY OF NICOTINE DEPENDENCE 03/30/2017 BOBBI CABRERA MD Ot Z96.651 PRESENCE OF RIGHT ARTIFICIAL KNEE JOINT 08/31/2017 HERMINIA YAO MD Ot A41 .9 SEPSIS, UNSPECIFIED ORGANISM 08/31/2017 HERMINIA YAO MD Ot D63 .1 ANEMIA IN CHRONIC KIDNEY DISEASE 08/31/2017 HERMINIA YAO MD Ot E11 .9 TYPE 2 DIABETES MELLITUS WITHOUT COMPLIC 08/31/2017 HERMINIA YAO MD Ot E78.00 PURE HYPERCHOLESTEROLEMIA, UNSPECIFIED 08/31/2017 HERMINIA YAO MD, Ot E86 .0 DEHYDRATION 08/31/2017 HERMINIA YAO MD, Ot E87 .1 HYPO-OSMOLALITY AND HYPONATREMIA 08/31/2017 HERMINIA YAO MD, Ot F41 .9 ANXIETY DISORDER, UNSPECIFIED 08/31/2017 HERMINIA YAO MD, Ot I25.10 ATHSCL HEART DISEASE OF [place] CORONARY 08/31/2017 HERMINIA YAO MD, Ot I69.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 08/31/2017 HERMINIA YAO MD, Ot J18 .9 PNEUMONIA, UNSPECIFIED ORGANISM 08/31/2017 HERMINIA YAO MD, Ot J40 BRONCHITIS, NOT SPECIFIED ACUTE OR CH 08/31/2017 HERMINIA YAO MD, Ot J44 .9 CHRONIC OBSTRUCTIVE PULMONARY DISEASE, U 08/31/2017 HERMINIA YAO MD, Ot L03.116 CELLULITIS OF LEFT LOWER LIMB 08/31/2017 HERMINIA YAO MD, Ot N18 .9 CHRONIC KIDNEY DISEASE, UNSPECIFIED 08/31/2017 HERMINIA YAO MD, Ot N39 .0 URINARY TRACT INFECTION, SITE NOT SPECIF 08/31/2017 HERMINIA YAO MD, Ot R09.02 HYPOXEMIA 08/31/2017 HERMINIA YAO MD, Ot R60 .0 LOCALIZED EDEMA 08/31/2017 HERMINIA YAO MD, Ot 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 08/31/2017 HERMINIA YAO MD, Ot Z87.891 PERSONAL HISTORY OF NICOTINE DEPENDENCE 08/31/2017 HERMINIA YAO MD, Ot Z88 .2 ALLERGY STATUS TO SULFONAMIDES STATUS 08/31/2017 HERMINIA [...] CEREBRAL INFARCTION 09/10/2017 MARIAN BRANDT MD Ot 599 .0 URIN TRACT INFECTION NOS 09/10/2017 LEONIDASMARKO JOHNSON Willi BULK TRUCK DRIVER Ot R22.0 LOCALIZED SWELLING, MASS AND LUMP, HEAD 09/10/2017 HERMINIA YAO MD Ot Z45 .2 ENCOUNTER FOR ADJUSTMENT AND MANAGEMENT 09/10/2017 HERMINIA YAO MD, Ot Z45 .2 ENCOUNTER FOR ADJUSTMENT AND MANAGEMENT 09/20/2017 HERMINIA YAO MD, Ot Z45 .2 ENCOUNTER FOR ADJUSTMENT AND MANAGEMENT 09/20/2017 HERMINIA YAO MD, Ot Z45 .2 ENCOUNTER FOR ADJUSTMENT AND MANAGEMENT 09/28/2017 HERMINIA YAO MD, Ot Z45 .2 ENCOUNTER FOR ADJUSTMENT AND MANAGEMENT 09/30/2017 HERMINIA YAO MD, Ot Z45 .2 ENCOUNTER FOR ADJUSTMENT AND MANAGEMENT 10/13/2017 EUSEBIO WARD MD Ot E11.42 TYPE 2 DIABETES MELLITUS WITH DIABETIC P 10/13/2017 EUSEBIO WARD MD Ot E66.01 MORBID (SEVERE) OBESITY DUE TO EXCESS CA 10/13/2017 EUSEBIO WARD MD Ot E78.00 PURE HYPERCHOLESTEROLEMIA, UNSPECIFIED 10/13/2017 EUSEBIO WARD MD, Ot F32 .9 MAJOR DEPRESSIVE DISORDER, SINGLE EPISOD 10/13/2017 EUSEBIO WARD MD, Ot F41 .9 ANXIETY DISORDER, UNSPECIFIED 10/13/2017 EUSEBIO WARD MD, Ot G47.30 SLEEP APNEA, UNSPECIFIED 10/13/2017 EUSEBIO WARD MD Ot I25.10 ATHSCL HEART DISEASE OF [place] CORONARY 10/13/2017 EUSEBIO WARD MD Ot I69.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 10/13/2017 EUSEBIO WARD MD Ot I69.391 DYSPHAGIA FOLLOWING CEREBRAL INFARCTION 10/13/2017 EUSEBIO WARD MD, Ot I87 .8 OTHER SPECIFIED DISORDERS OF VEINS 10/13/2017 EUSBEIO WARD MD Ot J30 .2 OTHER SEASONAL ALLERGIC RHINITIS 10/13/2017 EUSEBIO WARD MD, Ot J44 .9 CHRONIC OBSTRUCTIVE PULMONARY DISEASE, U 10/13/2017 EUSEBIO WARD MD Ot K21 .9 GASTRO-ESOPHAGEAL REFLUX DISEASE WITHOUT 10/13/2017 EUSEBIO WARD MD Ot K59.09 OTHER CONSTIPATION 10/13/2017 EUSEBIO WARD MD, Ot K64 .9 UNSPECIFIED HEMORRHOIDS 10/13/2017 EUSEBIO WARD MD, Ot L03.032 CELLULITIS OF LEFT TOE 10/13/2017 EUSEBIO WARD MD, Ot L03.115 CELLULITIS OF RIGHT LOWER LIMB 10/13/2017 EUSEBIO WARD MD, Ot L03.116 CELLULITIS OF LEFT LOWER LIMB 10/13/2017 EUSEBIO WARD MD, Ot N32.81 OVERACTIVE BLADDER 10/13/2017 EUSEBIO WARD MD, Ot R26.89 OTHER ABNORMALITIES OF GAIT AND MOBILITY 10/13/2017 EUSEBIO WARD MD, Ot R52 PAIN, UNSPECIFIED 10/13/2017 EUSEBIO WARD MD, Ot R60 .0 LOCALIZED EDEMA 10/13/2017 EUSEBIO WARD MD, Ot Z68.41 BODY MASS INDEX (BMI) 40.0-44.9, ADULT 10/13/2017 EUSEBIO WARD MD, Ot 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 10/13/2017 EUSEBIO WARD MD, Ot Z87.01 PERSONAL HISTORY OF PNEUMONIA (RECURRENT 10/13/2017 EUSEBIO WARD MD, Ot Z87.11 PERSONAL HISTORY OF PEPTIC ULCER DISEASE 10/13/2017 EUSEBIO WARD MD, Ot Z87.891 PERSONAL HISTORY OF NICOTINE DEPENDENCE 10/13/2017 EUSEBIO WARD MD, Ot Z96.651 PRESENCE OF RIGHT ARTIFICIAL KNEE JOINT 10/13/2017 EUSEBIO WARD MD, Ot Z99 .3 DEPENDENCE ON WHEELCHAIR 10/14/2017 EUSEBIO WARD MD, Ot A41 .9 SEPSIS, UNSPECIFIED ORGANISM 10/14/2017 EUSEBIO WARD MD, Ot B96.20 UNSP ESCHERICHIA COLI THE CAUSE OF DI 10/14/2017 EUSEBIO WARD MD, Ot E11.42 TYPE 2 DIABETES MELLITUS WITH DIABETIC P 10/14/2017 EUSEBIO WARD MD, Ot E66.01 MORBID (SEVERE) OBESITY DUE TO EXCESS CA 10/14/2017 EUSEBIO WARD MD, Ot E78.00 PURE HYPERCHOLESTEROLEMIA, UNSPECIFIED 10/14/2017 ED MD, EUSEBIO N Ot F32 .9 MAJOR DEPRESSIVE DISORDER, SINGLE EPISOD 10/14/2017 EUSEBIO WARD MD Ot F41 .9 ANXIETY DISORDER, UNSPECIFIED 10/14/2017 EUSEBIO WARD MD Ot G47.30 SLEEP APNEA, UNSPECIFIED 10/14/2017 EUSEBIO WARD MD Ot G89.29 OTHER CHRONIC PAIN 10/14/2017 EUSEBIO WARD MD Ot I25.10 ATHSCL HEART DISEASE OF [place] CORONARY 10/14/2017 EUSEBIO WARD MD Ot I69.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 10/14/2017 EUSEBIO WARD MD Ot I69.391 DYSPHAGIA FOLLOWING CEREBRAL INFARCTION 10/14/2017 EUSEBIO WARD MD Ot I87 .8 OTHER SPECIFIED DISORDERS OF VEINS 10/14/2017 EUSEBIO WARD MD Ot J30 .2 OTHER SEASONAL ALLERGIC RHINITIS 10/14/2017 EUSEBIO WARD MD Ot J44 .9 CHRONIC OBSTRUCTIVE PULMONARY DISEASE, U 10/14/2017 EUSEBIO WARD MD Ot K21 .9 GASTRO-ESOPHAGEAL REFLUX DISEASE WITHOUT 10/14/2017 EUSEBIO WARD MD Ot K59.09 OTHER CONSTIPATION 10/14/2017 EUSEBIO WARD MD Ot K64 .9 UNSPECIFIED HEMORRHOIDS 10/14/2017 EUSEBIO WARD MD Ot L03.115 CELLULITIS OF RIGHT LOWER LIMB 10/14/2017 EUSEBIO WARD MD Ot N30.00 ACUTE CYSTITIS WITHOUT HEMATURIA 10/14/2017 EUSEBIO WARD MD Ot N32.81 OVERACTIVE BLADDER 10/14/2017 EUSEBIO WARD MD Ot N39 .0 URINARY TRACT INFECTION, SITE NOT SPECIF 10/14/2017 EUSEBIO WARD MD Ot R26.89 OTHER ABNORMALITIES OF GAIT AND MOBILITY 10/14/2017 EUSEBIO WARD MD Ot R52 PAIN, UNSPECIFIED 10/14/2017 EUSEBIO WARD MD Ot R53 .1 WEAKNESS 10/14/2017 EUSEBIO WARD MD, Ot Z68.41 BODY MASS INDEX (BMI) 40.0-44.9, ADULT 10/14/2017 EUSEBIO WARD MD, Ot 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 10/14/2017 EUSEBIO WARD MD Ot Z87.01 PERSONAL HISTORY OF PNEUMONIA (RECURRENT 10/14/2017 EUSEBIO WARD MD Ot Z87.11 PERSONAL HISTORY OF PEPTIC ULCER DISEASE 10/14/2017 EUSEBIO WARD MD Ot Z87.891 PERSONAL HISTORY OF NICOTINE DEPENDENCE 10/14/2017 EUSEBIO WARD MD Ot Z96.651 PRESENCE OF RIGHT ARTIFICIAL KNEE JOINT 10/14/2017 EUSEBIO WARD MD Ot Z99 .3 DEPENDENCE ON WHEELCHAIR 09/14/2018 LOU HARDIN DO Ot Z01.818 ENCOUNTER FOR OTHER PREPROCEDURAL EXAMIN 09/15/2018 LOU HARDIN DO Ot Z01.818 ENCOUNTER FOR OTHER PREPROCEDURAL EXAMIN 09/16/2018 SWATHI RAMIREZ Ot 397.0 TRICUSPID VALVE DISEASE 09/16/2018 SWATHI RAMIREZ Ot 401.9 HYPERTENSION NOS 09/16/2018 SWATHI RAMIREZ Ot 424.0 MITRAL VALVE DISORDER 09/16/2018 SWATHI RAMIREZ Ot 429.9 HEART DISEASE NOS 09/16/2018 SWATHI RAMIREZ Ot V12.54 PERSONAL HX OF TIA, CEREBRAL INFARCTION 09/16/2018 MARIAN BRANDT MD Ot 599 .0 URIN TRACT INFECTION NOS 09/16/2018 MARKO LAUREN BULK TRUCK DRIVER Ot R22.0 LOCALIZED SWELLING, MASS AND LUMP, HEAD 09/16/2018 NAJMA CHOWDHURY, HERMINIA Vigil Ot Z45 .2 ENCOUNTER FOR ADJUSTMENT AND MANAGEMENT 09/16/2018 JOSH THAYER Ot L03.116 CELLULITIS OF LEFT LOWER LIMB 09/20/2018 LOU HARDIN DO Ot Z01.818 ENCOUNTER FOR OTHER PREPROCEDURAL EXAMIN 09/20/2018 SWATHI RAMIREZ Ot 397.0 TRICUSPID VALVE DISEASE 09/20/2018 SWATHI RAMIREZ Ot 401.9 HYPERTENSION NOS 09/20/2018 SWATHI RAMIREZ Ot 424.0 MITRAL VALVE DISORDER 09/20/2018 SWATHI RAMIREZ Ot 429.9 HEART DISEASE NOS 09/20/2018 KYLE FISHMAN, SWATHI Victor Ot V12.54 PERSONAL HX OF TIA, CEREBRAL INFARCTION 09/20/2018 KARLY CHOWDHURY, MARIAN Victor Ot 599 .0 URIN TRACT INFECTION NOS 09/20/2018 MARKO LAUREN BULK TRUCK DRIVER Ot R22.0 LOCALIZED SWELLING, MASS AND LUMP, HEAD 09/20/2018 NAJMA CHOWDHURY, HERMINIA Vigil Ot Z45 .2 ENCOUNTER FOR ADJUSTMENT AND MANAGEMENT 09/20/2018 JOSH THAYER Ot L03.116 CELLULITIS OF LEFT LOWER LIMB 10/11/2018 LOU HARDIN DO Ot D12. 2 BENIGN NEOPLASM OF ASCENDING COLON 10/11/2018 LOU HARDIN DO Ot D12. 3 BENIGN NEOPLASM OF TRANSVERSE COLON 10/11/2018 LOU HARDIN DO Ot D12. 4 BENIGN NEOPLASM OF DESCENDING COLON 10/11/2018 LOU HARDIN DO Ot D12. 5 BENIGN NEOPLASM OF SIGMOID COLON 10/11/2018 LOU HARDIN DO Ot E11. 9 TYPE 2 DIABETES MELLITUS WITHOUT COMPLIC 10/11/2018 LOU HARDIN DO Ot E66. 01 MORBID (SEVERE) OBESITY DUE TO EXCESS CA 10/11/2018 LOU HARDIN DO Ot G47. 33 OBSTRUCTIVE SLEEP APNEA (ADULT) (PEDIATR 10/11/2018 LOU HARDIN DO Ot I25. 10 ATHSCL HEART DISEASE OF [place] CORONARY 10/11/2018 LOU HARDIN DO Ot 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 10/11/2018 LOU HARDIN DO Ot I69.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 10/11/2018 LOU HARDIN DO Ot I69.391 DYSPHAGIA FOLLOWING CEREBRAL INFARCTION 10/11/2018 LOU HARDIN DO Ot J44. 9 CHRONIC OBSTRUCTIVE PULMONARY DISEASE, U 10/11/2018 LOU HARDIN DO Ot K21. 9 GASTRO-ESOPHAGEAL REFLUX DISEASE WITHOUT 10/11/2018 LOU HARDIN DO Ot K29. 50 UNSPECIFIED CHRONIC GASTRITIS WITHOUT BL 10/11/2018 LOU HARDIN DO Ot K29. 70 GASTRITIS, UNSPECIFIED, WITHOUT BLEEDING 10/11/2018 LOU HARDIN DO Ot K31. 7 POLYP OF STOMACH AND DUODENUM 10/11/2018 LOU HARDIN DO Ot K44. 9 DIAPHRAGMATIC HERNIA WITHOUT OBSTRUCTION 10/11/2018 LOU HARDIN DO Ot K63. 5 POLYP OF COLON 10/11/2018 LOU HARDIN DO Ot Z12. 11 ENCOUNTER FOR SCREENING FOR MALIGNANT NE 10/11/2018 LOU HARDIN DO Ot Z68. 41 BODY MASS INDEX (BMI) 40.0-44.9, ADULT 10/11/2018 LOU HARDIN DO Ot Z79. 02 TRUCK SALES 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 (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 ANTITHROMBOTI 10/11/2018 LOU HARDIN DO Ot Z79. 4 [facility] (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 10/11/2018 LOU HARDIN DO Ot Z79. 82 [facility] (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 ASPIRIN 10/11/2018 LOU HARDIN DO Ot Z79.899 OTHER [facility] (CURRENT) DRUG THERAPY 10/13/2018 LOU HARDIN DO Ot D12. 2 BENIGN NEOPLASM OF ASCENDING COLON 10/13/2018 LOU HARDIN DO Ot D12. 3 BENIGN NEOPLASM OF TRANSVERSE COLON 10/13/2018 LOU HARDIN DO Ot D12. 4 BENIGN NEOPLASM OF DESCENDING COLON 10/13/2018 LOU HARDIN DO Ot D12. 5 BENIGN NEOPLASM OF SIGMOID COLON 10/13/2018 LOU HARDIN DO Ot E11. 9 TYPE 2 DIABETES MELLITUS WITHOUT COMPLIC 10/13/2018 LOU HARDIN DO Ot E66. 01 MORBID (SEVERE) OBESITY DUE TO EXCESS CA 10/13/2018 LOU HARDIN DO Ot G47. 33 OBSTRUCTIVE SLEEP APNEA (ADULT) (PEDIATR 10/13/2018 LOU HARDIN DO Ot I25. 10 ATHSCL HEART DISEASE OF [place] CORONARY 10/13/2018 LOU HARDIN DO Ot 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 10/13/2018 LOU HARDIN DO Ot I69.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 10/13/2018 LOU HARDIN DO Ot I69.391 DYSPHAGIA FOLLOWING CEREBRAL INFARCTION 10/13/2018 LOU HARDIN DO Ot J44. 9 CHRONIC OBSTRUCTIVE PULMONARY DISEASE, U 10/13/2018 LOU HARDIN DO Ot K21. 9 GASTRO-ESOPHAGEAL REFLUX DISEASE WITHOUT 10/13/2018 LOU HARDIN DO Ot K29. 50 UNSPECIFIED CHRONIC GASTRITIS WITHOUT BL 10/13/2018 LOU HARDIN DO Ot K31. 7 POLYP OF STOMACH AND DUODENUM 10/13/2018 LOU HARDIN DO Ot K44. 9 DIAPHRAGMATIC HERNIA WITHOUT OBSTRUCTION 10/13/2018 LOU HARDIN DO Ot Z12. 11 ENCOUNTER FOR SCREENING FOR MALIGNANT NE 10/13/2018 LOU HARDIN DO Ot Z68. 41 BODY MASS INDEX (BMI) 40.0-44.9, ADULT 10/13/2018 LOU HADRIN DO Ot Z79. 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 82 [facility] (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 ASPIRIN 10/13/2018 LOU HARDIN DO Ot Z79.899 OTHER [employer] SALES 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 (CURRENT) DRUG THERAPY 10/19/2018 LOU HARDIN DO Ot D12. 2 BENIGN NEOPLASM OF ASCENDING COLON 10/19/2018 LOU HARDIN DO Ot D12. 3 BENIGN NEOPLASM OF TRANSVERSE COLON 10/19/2018 LOU HARDIN DO Ot D12. 4 BENIGN NEOPLASM OF DESCENDING COLON 10/19/2018 LOU HARDIN DO Ot D12. 5 BENIGN NEOPLASM OF SIGMOID COLON 10/19/2018 LOU HARDIN DO Ot E11. 9 TYPE 2 DIABETES MELLITUS WITHOUT COMPLIC 10/19/2018 LOU HARDIN DO Ot E66. 01 MORBID (SEVERE) OBESITY DUE TO EXCESS CA 10/19/2018 LOU HARDIN DO Ot G47. 33 OBSTRUCTIVE SLEEP APNEA (ADULT) (PEDIATR 10/19/2018 LOU HARDIN DO Ot I25. 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 9 CHRONIC OBSTRUCTIVE PULMONARY DISEASE, U 10/19/2018 LOU HARDIN DO Ot K21. 9 GASTRO-ESOPHAGEAL REFLUX DISEASE WITHOUT 10/19/2018 LOU HARDIN DO Ot K29. 50 UNSPECIFIED CHRONIC GASTRITIS WITHOUT BL 10/19/2018 LOU HARDIN DO Ot K31. 7 POLYP OF STOMACH AND DUODENUM 10/19/2018 LOU HARDIN DO Ot K44. 9 DIAPHRAGMATIC HERNIA WITHOUT OBSTRUCTION 10/19/2018 LOU HARDIN DO Ot Z12. 11 ENCOUNTER FOR SCREENING FOR MALIGNANT NE 10/19/2018 LOU HARDIN DO Ot Z68. 41 BODY MASS INDEX (BMI) 40.0-44.9, ADULT 10/19/2018 LOU HARDIN DO Ot Z79. 02 [employer] SALES 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 (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 ANTITHROMBOTI 10/19/2018 HARDIN LOU BOND Ot Z79. 4 [employer]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 10/19/2018 LOU HARDIN DO Ot Z79. 82 [facility] (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 ASPIRIN 10/19/2018 LOU HARDIN DO Ot Z79.899 OTHER [employer] SAL[employer] 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 (CURRENT) DRUG THERAPY 02/19/2019 LEE CHOWDHURY, SAMINA May Ot E78.00 PURE HYPERCHOLESTEROLEMIA, UNSPECIFIED 02/19/2019 SAMINA HOWARD MD Ot F32.9 MAJOR DEPRESSIVE DISORDER, SINGLE EPISOD 02/19/2019 SAMINA HOWARD MD, Ot F41.9 ANXIETY DISORDER, UNSPECIFIED 02/19/2019 SAMINA HOWARD MD Ot G47.30 SLEEP APNEA, UNSPECIFIED 02/19/2019 SAMINA HOWARD MD, Ot I25.10 ATHSCL HEART DISEASE OF [place] CORONARY 02/19/2019 SAMINA HOWARD MD Ot I82.402 ACUTE EMBOLISM AND THOMBOS UNSP DEEP VEI 02/19/2019 SAMINA HOWARD MD Ot J44.1 CHRONIC OBSTRUCTIVE PULMONARY DISEASE W 02/19/2019 SAMINA HOWARD MD, Ot K21.9 GASTRO-ESOPHAGEAL REFLUX DISEASE WITHOUT 02/19/2019 SAMINA HOWARD MD Ot R07.89 OTHER CHEST PAIN 02/19/2019 SAMINA HOWARD MD Ot R07.9 CHEST PAIN, UNSPECIFIED 02/19/2019 SAMINA HOWARD MD, Ot Z79.01 [facility] (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 ANTICOAGULANT 02/19/2019 SAMINA HOWARD MD, Ot Z79.02 [facility] (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 ANTITHROMBOTI 02/19/2019 SAMINA HOWARD MD, Ot 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 02/19/2019 SAMINA HOWARD MD, Ot Z79.51 [employer] SALES 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 (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 INHALED STERO 02/19/2019 SAMINA HOWARD MD, Ot Z79.82 [employer] 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 02/19/2019 SAMINA HOWARD MD, Ot Z82.49 FAMILY HX OF ISCHEM HEART DIS AND OTH DI 02/19/2019 SAMINA HOWARD MD, Ot Z86.73 PRSNL HX OF TIA (TIA), AND CEREB INFRC W 02/19/2019 SAMINA HOWARD MD, Ot Z87.01 PERSONAL HISTORY OF PNEUMONIA (RECURRENT 02/19/2019 SAMINA HOWARD MD, Ot Z87.09 PERSONAL HISTORY OF OTHER DISEASES OF TH 02/19/2019 SAMINA HOWARD MD, Ot Z87.19 PERSONAL HISTORY OF OTHER DISEASES OF TH 02/19/2019 SAMINA HOWARD MD, Ot Z87.442 PERSONAL HISTORY OF URINARY CALCULI 02/19/2019 SAMINA HOWARD MD, Ot Z87.448 PERSONAL HISTORY OF OTHER DISEASES OF UR 02/19/2019 SAMINA HOWARD MD, Ot Z87.891 PERSONAL HISTORY OF NICOTINE DEPENDENCE 02/19/2019 SAMINA HOWARD MD, Ot Z88.2 ALLERGY STATUS TO SULFONAMIDES STATUS 02/19/2019 SAMINA HOWARD MD, Ot Z88.8 ALLERGY STATUS TO OTH DRUG/MEDS/BIOL SUB 02/23/2019 SAMINA HOWARD MD, Ot E78.00 PURE HYPERCHOLESTEROLEMIA, UNSPECIFIED 02/23/2019 SAMINA HOWARD MD, Ot F32.9 MAJOR DEPRESSIVE DISORDER, SINGLE EPISOD 02/23/2019 SAMINA HOWARD MD, Ot F41.9 ANXIETY DISORDER, UNSPECIFIED 02/23/2019 SAMINA HOWARD MD, Ot G47.30 SLEEP APNEA, UNSPECIFIED 02/23/2019 SAMINA HOWARD MD, Ot I25.10 ATHSCL HEART DISEASE OF [place] CORONARY 02/23/2019 SAMINA HOWARD MD, Ot I82.402 ACUTE EMBOLISM AND THOMBOS UNSP DEEP VEI 02/23/2019 SAMINA HOWARD MD, Ot J44.1 CHRONIC OBSTRUCTIVE PULMONARY DISEASE W 02/23/2019 SAMINA HOWARD MD, Ot K21.9 GASTRO-ESOPHAGEAL REFLUX DISEASE WITHOUT 02/23/2019 SAMINA HOWARD MD, Ot R07.89 OTHER CHEST PAIN 02/23/2019 SAMINA HOWARD MD, Ot R07.9 CHEST PAIN, UNSPECIFIED 02/23/2019 SAMINA HOWARD MD, Ot 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 02/23/2019 SAMINA HOWARD MD, Ot Z79.02 [facility] (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 ANTITHROMBOTI 02/23/2019 SAMINA HOWARD MD, Ot 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 02/23/2019 SAMINA HOWARD MD, Ot Z79.51 TRUCK SALES 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 (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 INHALED STERO 02/23/2019 SAMINA HOWARD MD, Ot Z79.82 [facility] (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 ASPIRIN 02/23/2019 SAMINA HOWARD MD, Ot Z82.49 FAMILY HX OF ISCHEM HEART DIS AND OTH DI 02/23/2019 SAMINA HOWARD MD, Ot Z86.73 PRSNL HX OF TIA (TIA), AND CEREB INFRC W 02/23/2019 SAMINA HOWARD MD, Ot Z87.01 PERSONAL HISTORY OF PNEUMONIA (RECURRENT 02/23/2019 SAMINA HOWARD MD, Ot Z87.09 PERSONAL HISTORY OF OTHER DISEASES OF TH 02/23/2019 SAMINA HOWARD MD, Ot Z87.19 PERSONAL HISTORY OF OTHER DISEASES OF TH 02/23/2019 SAMINA HOWARD MD, Ot Z87.442 PERSONAL HISTORY OF URINARY CALCULI 02/23/2019 SAMINA HOWARD MD, Ot Z87.448 PERSONAL HISTORY OF OTHER DISEASES OF UR 02/23/2019 SAMINA HOWARD MD, Ot Z87.891 PERSONAL HISTORY OF NICOTINE DEPENDENCE 02/23/2019 SAMINA HOWARD MD, Ot Z88.2 ALLERGY STATUS TO SULFONAMIDES STATUS 02/23/2019 SAMINA HOWARD MD, Ot Z88.8 ALLERGY STATUS TO OTH DRUG/MEDS/BIOL SUB 02/25/2019 SAMINA HOWARD MD Ot E78.00 PURE HYPERCHOLESTEROLEMIA, UNSPECIFIED 02/25/2019 SAMINA HOWARD MD, Ot F32.9 MAJOR DEPRESSIVE DISORDER, SINGLE EPISOD 02/25/2019 SAMINA HOWARD MD, Ot F41.9 ANXIETY DISORDER, UNSPECIFIED 02/25/2019 SAMINA HOWARD MD, Ot G47.30 SLEEP APNEA, UNSPECIFIED 02/25/2019 SAMINA HOWARD MD, Ot I25.10 ATHSCL HEART DISEASE OF [place] CORONARY 02/25/2019 SAMINA HOWARD MD, Ot I82.402 ACUTE EMBOLISM AND THOMBOS UNSP DEEP VEI 02/25/2019 SAMINA HOWARD MD, Ot J44.1 CHRONIC OBSTRUCTIVE PULMONARY DISEASE W 02/25/2019 SAMINA HOWARD MD, Ot K21.9 GASTRO-ESOPHAGEAL REFLUX DISEASE WITHOUT 02/25/2019 SAMINA HOWARD MD Ot R07.89 OTHER CHEST PAIN 02/25/2019 SAMINA HOWARD MD Ot R07.9 CHEST PAIN, UNSPECIFIED 02/25/2019 SAMINA HOWARD MD, Ot Z79.01 [facility] (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 ANTICOAGULANT 02/25/2019 SAMINA HOWARD MD Ot Z79.02 TRUCK SALES 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 (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 ANTITHROMBOTI 02/25/2019 SAMINA HOWARD MD, Ot 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 02/25/2019 SAMINA HOWARD MD Ot Z79.51 [employer]UCK SALES 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 (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 INHALED STERO 02/25/2019 SAMINA HOWARD MD, Ot Z79.82 [facility] (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 ASPIRIN 02/25/2019 SAMINA HOWARD MD, Ot Z82.49 FAMILY HX OF ISCHEM HEART DIS AND OTH DI 02/25/2019 SAMINA HOWARD MD, Ot Z86.73 PRSNL HX OF TIA (TIA), AND CEREB INFRC W 02/25/2019 SAMINA HOWARD MD, Ot Z87.01 PERSONAL HISTORY OF PNEUMONIA (RECURRENT 02/25/2019 SAMINA HOWARD MD, Ot Z87.09 PERSONAL HISTORY OF OTHER DISEASES OF TH 02/25/2019 SAMINA HOWARD MD, Ot Z87.19 PERSONAL HISTORY OF OTHER DISEASES OF TH 02/25/2019 SAMINA HOWARD MD, Ot Z87.442 PERSONAL HISTORY OF URINARY CALCULI 02/25/2019 SAMINA HOWARD MD, Ot Z87.448 PERSONAL HISTORY OF OTHER DISEASES OF UR 02/25/2019 SAMINA HOWARD MD, Ot Z87.891 PERSONAL HISTORY OF NICOTINE DEPENDENCE 02/25/2019 SAMINA HOWARD MD, Ot Z88.2 ALLERGY STATUS TO SULFONAMIDES STATUS 02/25/2019 SAMINA HOWARD MD, Ot Z88.8 ALLERGY STATUS TO OTH DRUG/MEDS/BIOL SUB 04/21/2019 EUSEBIO WARD MD, Ot A41 .9 SEPSIS, UNSPECIFIED ORGANISM 04/21/2019 EUSEBIO WARD MD, Ot D64 .9 ANEMIA, UNSPECIFIED 04/21/2019 EUSEBIO WARD MD, Ot E11 .9 TYPE 2 DIABETES MELLITUS WITHOUT COMPLIC 04/21/2019 EUSEBIO WARD MD, Ot E66.01 MORBID (SEVERE) OBESITY DUE TO EXCESS CA 04/21/2019 EUSEBIO WARD MD, Ot E78.00 PURE HYPERCHOLESTEROLEMIA, UNSPECIFIED 04/21/2019 EUSEBIO WARD MD, Ot F32 .9 MAJOR DEPRESSIVE DISORDER, SINGLE EPISOD 04/21/2019 EUSEBIO WARD MD, Ot F41 .9 ANXIETY DISORDER, UNSPECIFIED 04/21/2019 EUSEBIO WARD MD, Ot G47.30 SLEEP APNEA, UNSPECIFIED 04/21/2019 EUSEBIO WARD MD, Ot I25.10 ATHSCL HEART DISEASE OF [place] CORONARY 04/21/2019 EUSEBIO WARD MD, Ot 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 04/21/2019 EUSEBIO WARD MD, Ot I69.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 04/21/2019 EUSEBIO WARD MD, Ot I69.391 DYSPHAGIA FOLLOWING CEREBRAL INFARCTION 04/21/2019 EUSEBIO WARD MD, Ot J18 .9 PNEUMONIA, UNSPECIFIED ORGANISM 04/21/2019 EUSEBIO WARD MD, Ot J30 .2 OTHER SEASONAL ALLERGIC RHINITIS 04/21/2019 EUSEBIO WARD MD, Ot J44 .0 CHRONIC OBSTRUCTIVE PULMON DISEASE W ACU 04/21/2019 EUSEBIO WARD MD, Ot J96.00 ACUTE RESPIRATORY FAILURE, UNSP W HYPOXI 04/21/2019 EUSEBIO WARD MD, Ot K21 .9 GASTRO-ESOPHAGEAL REFLUX DISEASE WITHOUT 04/21/2019 EUSEBIO WARD MD, Ot K59.09 OTHER CONSTIPATION 04/21/2019 EUSEBIO WARD MD, Ot K64 .9 UNSPECIFIED HEMORRHOIDS 04/21/2019 EUSEBIO WARD MD, Ot M19.91 PRIMARY OSTEOARTHRITIS, UNSPECIFIED SITE 04/21/2019 EUSEBIO WARD MD, Ot N30.00 ACUTE CYSTITIS WITHOUT HEMATURIA 04/21/2019 EUSEBIO WARD MD, Ot N32.81 OVERACTIVE BLADDER 04/21/2019 EUSEBIO WARD MD, Ot R60 .9 EDEMA, UNSPECIFIED 04/21/2019 EUSEBIO WARD MD, Ot Z68.41 BODY MASS INDEX (BMI) 40.0-44.9, ADULT 04/21/2019 EUSEBIO WARD MD, Ot 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 04/21/2019 EUSEBIO WARD MD, Ot Z87.11 PERSONAL HISTORY OF PEPTIC ULCER DISEASE 04/21/2019 EUSEBIO WARD MD, Ot Z87.891 PERSONAL HISTORY OF NICOTINE DEPENDENCE 04/22/2019 EUSEBIO WARD MD, Ot A41 .9 SEPSIS, UNSPECIFIED ORGANISM 04/22/2019 EUSEBIO WARD MD, Ot D64 .9 ANEMIA, UNSPECIFIED 04/22/2019 EUSEBIO WARD MD Ot E11 .9 TYPE 2 DIABETES MELLITUS WITHOUT COMPLIC 04/22/2019 EUSEBIO WARD MD Ot E66.01 MORBID (SEVERE) OBESITY DUE TO EXCESS CA 04/22/2019 EUSEBIO WARD MD Ot E78.00 PURE HYPERCHOLESTEROLEMIA, UNSPECIFIED 04/22/2019 EUSEBIO WARD MD Ot F32 .9 MAJOR DEPRESSIVE DISORDER, SINGLE EPISOD 04/22/2019 EUSEBIO WARD MD Ot F41 .9 ANXIETY DISORDER, UNSPECIFIED 04/22/2019 EUSEBIO WRAD MD Ot G47.30 SLEEP APNEA, UNSPECIFIED 04/22/2019 EUSEBIO WARD MD Ot I25.10 ATHSCL HEART DISEASE OF [place] CORONARY 04/22/2019 EUSEBIO WARD MD Ot 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 04/22/2019 EUSEBIO WARD MD Ot I69.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 04/22/2019 EUSEBIO WARD MD Ot I69.391 DYSPHAGIA FOLLOWING CEREBRAL INFARCTION 04/22/2019 EUSEBIO WARD MD Ot J18 .9 PNEUMONIA, UNSPECIFIED ORGANISM 04/22/2019 EUSEBIO WARD MD Ot J30 .2 OTHER SEASONAL ALLERGIC RHINITIS 04/22/2019 EUSEBIO WARD MD Ot J44 .0 CHRONIC OBSTRUCTIVE PULMON DISEASE W ACU 04/22/2019 EUSEBIO WARD MD Ot J96.00 ACUTE RESPIRATORY FAILURE, UNSP W HYPOXI 04/22/2019 EUSEBIO WARD MD Ot K21 .9 GASTRO-ESOPHAGEAL REFLUX DISEASE WITHOUT 04/22/2019 EUSEBIO WARD MD Ot K59.09 OTHER CONSTIPATION 04/22/2019 EUSEBIO WARD MD Ot K64 .9 UNSPECIFIED HEMORRHOIDS 04/22/2019 EUSEBIO WARD MD Ot M19.91 PRIMARY OSTEOARTHRITIS, UNSPECIFIED SITE 04/22/2019 EUSEBIO WARD MD Ot N30.00 ACUTE CYSTITIS WITHOUT HEMATURIA 04/22/2019 EUSEBIO WARD MD Ot N32.81 OVERACTIVE BLADDER 04/22/2019 EUSEBIO WARD MD Ot R60 .9 EDEMA, UNSPECIFIED 04/22/2019 EUSEBIO WARD MD, Ot Z68.41 BODY MASS INDEX (BMI) 40.0-44.9, ADULT 04/22/2019 EUSEBIO WARD MD, Ot 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 04/22/2019 EUSEBIO WARD MD, Ot Z87.11 PERSONAL HISTORY OF PEPTIC ULCER DISEASE 04/22/2019 EUSEBIO WARD MD, Ot Z87.891 PERSONAL HISTORY OF NICOTINE DEPENDENCE 04/22/2019 EUSEBIO WARD MD Ot A41 .9 SEPSIS, UNSPECIFIED ORGANISM 04/22/2019 EUSEBIO WARD MD, Ot D64 .9 ANEMIA, UNSPECIFIED 04/22/2019 EUSEBIO WARD MD, Ot E11 .9 TYPE 2 DIABETES MELLITUS WITHOUT COMPLIC 04/22/2019 EUSEBIO WARD MD Ot E66.01 MORBID (SEVERE) OBESITY DUE TO EXCESS CA 04/22/2019 EUSEBIO WARD MD Ot E78.00 PURE HYPERCHOLESTEROLEMIA, UNSPECIFIED 04/22/2019 EUSEBIO WARD MD Ot F32 .9 MAJOR DEPRESSIVE DISORDER, SINGLE EPISOD 04/22/2019 EUSEBIO WARD MD Ot F41 .9 ANXIETY DISORDER, UNSPECIFIED 04/22/2019 EUSEBIO WARD MD, Ot G47.30 SLEEP APNEA, UNSPECIFIED 04/22/2019 EUSEBIO WARD MD Ot I25.10 ATHSCL HEART DISEASE OF [place] CORONARY 04/22/2019 EUSEBIO WARD MD Ot 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 04/22/2019 EUSEBIO WARD MD Ot I69.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 04/22/2019 EUSEBIO WARD MD Ot I69.391 DYSPHAGIA FOLLOWING CEREBRAL INFARCTION 04/22/2019 EUSEBIO WARD MD, Ot J18 .9 PNEUMONIA, UNSPECIFIED ORGANISM 04/22/2019 EUSEBIO WARD MD, Ot J30 .2 OTHER SEASONAL ALLERGIC RHINITIS 04/22/2019 EUSEBIO WARD MD, Ot J44 .0 CHRONIC OBSTRUCTIVE PULMON DISEASE W ACU 04/22/2019 EUSEBIO WARD MD, Ot J96.00 ACUTE RESPIRATORY FAILURE, UNSP W HYPOXI 04/22/2019 EUSEBIO WARD MD Ot K21 .9 GASTRO-ESOPHAGEAL REFLUX DISEASE WITHOUT 04/22/2019 EUSEBIO WARD MD, Ot K59.09 OTHER CONSTIPATION 04/22/2019 EUSEBIO WARD MD, Ot K64 .9 UNSPECIFIED HEMORRHOIDS 04/22/2019 EUSEBIO WARD MD, Ot M19.91 PRIMARY OSTEOARTHRITIS, UNSPECIFIED SITE 04/22/2019 EUSEBIO WARD MD, Ot N30.00 ACUTE CYSTITIS WITHOUT HEMATURIA 04/22/2019 EUSEBIO WARD MD, Ot N32.81 OVERACTIVE BLADDER 04/22/2019 EUSEBIO WARD MD, Ot R60 .9 EDEMA, UNSPECIFIED 04/22/2019 EUSEBIO WARD MD, Ot Z68.41 BODY MASS INDEX (BMI) 40.0-44.9, ADULT 04/22/2019 EUSEBIO WARD MD, Ot Z79 .4 [facility] (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 04/22/2019 EUSEBIO WARD MD, Ot Z87.11 PERSONAL HISTORY OF PEPTIC ULCER DISEASE 04/22/2019 EUSEBIO WARD MD, Ot Z87.891 PERSONAL HISTORY OF NICOTINE DEPENDENCE 04/22/2019 EUSEBIO WARD MD, Ot A41 .9 SEPSIS, UNSPECIFIED ORGANISM 04/22/2019 EUSEBIO WARD MD, Ot D64 .9 ANEMIA, UNSPECIFIED 04/22/2019 EUSEBIO WARD MD, Ot E11 .9 TYPE 2 DIABETES MELLITUS WITHOUT COMPLIC 04/22/2019 EUSEBIO WARD MD Ot E66.01 MORBID (SEVERE) OBESITY DUE TO EXCESS CA 04/22/2019 EUSEBIO WARD MD Ot E78.00 PURE HYPERCHOLESTEROLEMIA, UNSPECIFIED 04/22/2019 EUSEBIO WARD MD, Ot F32 .9 MAJOR DEPRESSIVE DISORDER, SINGLE EPISOD 04/22/2019 EUSEBIO WARD MD, Ot F41 .9 ANXIETY DISORDER, UNSPECIFIED 04/22/2019 EUSEBIO WARD MD, Ot G47.30 SLEEP APNEA, UNSPECIFIED 04/22/2019 EUSEBIO WARD MD, Ot I25.10 ATHSCL HEART DISEASE OF [place] CORONARY 04/22/2019 EUSEBIO WARD MD Ot 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 04/22/2019 EDEUSEBIO ALEXANDER MD, Ot I69.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 04/22/2019 EUSEBIO WARD MD, Ot I69.391 DYSPHAGIA FOLLOWING CEREBRAL INFARCTION 04/22/2019 EUSEBIO WARD MD, Ot J18 .9 PNEUMONIA, UNSPECIFIED ORGANISM 04/22/2019 EUSEBIO WARD MD, Ot J30 .2 OTHER SEASONAL ALLERGIC RHINITIS 04/22/2019 EUSEBIO WARD MD, Ot J44 .0 CHRONIC OBSTRUCTIVE PULMON DISEASE W ACU 04/22/2019 EUSEBIO WARD MD, Ot J96.00 ACUTE RESPIRATORY FAILURE, UNSP W HYPOXI 04/22/2019 EUSEBIO WARD MD, Ot K21 .9 GASTRO-ESOPHAGEAL REFLUX DISEASE WITHOUT 04/22/2019 EUSEBIO WARD MD, Ot K59.09 OTHER CONSTIPATION 04/22/2019 EUSEBIO WARD MD, Ot K64 .9 UNSPECIFIED HEMORRHOIDS 04/22/2019 EUSEBIO WARD MD, Ot M19.91 PRIMARY OSTEOARTHRITIS, UNSPECIFIED SITE 04/22/2019 EUSEBIO WARD MD, Ot N30.00 ACUTE CYSTITIS WITHOUT HEMATURIA 04/22/2019 EUSEBIO WARD MD, Ot N32.81 OVERACTIVE BLADDER 04/22/2019 EUSEBIO WARD MD, Ot R60 .9 EDEMA, UNSPECIFIED 04/22/2019 EUSEBIO WARD MD, Ot Z68.41 BODY MASS INDEX (BMI) 40.0-44.9, ADULT 04/22/2019 EUSEBIO WARD MD, Ot Z79 .4 [facility] (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 04/22/2019 EUSEBIO WARD MD, Ot Z87.11 PERSONAL HISTORY OF PEPTIC ULCER DISEASE 04/22/2019 EUSEBIO WARD MD, Ot Z87.891 PERSONAL HISTORY OF NICOTINE DEPENDENCE 04/23/2019 EUSEBIO WARD MD, Ot A41 .9 SEPSIS, UNSPECIFIED ORGANISM 04/23/2019 EUSEBIO WARD MD, Ot D64 .9 ANEMIA, UNSPECIFIED 04/23/2019 EUSEBIO WARD MD, Ot E11 .9 TYPE 2 DIABETES MELLITUS WITHOUT COMPLIC 04/23/2019 EUSEBIO WARD MD, Ot E66.01 MORBID (SEVERE) OBESITY DUE TO EXCESS CA 04/23/2019 EUSEBIO WARD MD Ot E78.00 PURE HYPERCHOLESTEROLEMIA, UNSPECIFIED 04/23/2019 EUSEBIO WARD MD Ot F32 .9 MAJOR DEPRESSIVE DISORDER, SINGLE EPISOD 04/23/2019 EUSEBIO WARD MD, Ot F41 .9 ANXIETY DISORDER, UNSPECIFIED 04/23/2019 EUSEBIO WARD MD Ot G47.30 SLEEP APNEA, UNSPECIFIED 04/23/2019 EUSEBIO WARD MD Ot I25.10 ATHSCL HEART DISEASE OF [place] CORONARY 04/23/2019 EUSEBIO WARD MD Ot 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 04/23/2019 EUSEBIO WARD MD Ot I69.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 04/23/2019 EUSEBIO WARD MD Ot I69.391 DYSPHAGIA FOLLOWING CEREBRAL INFARCTION 04/23/2019 EUSEBIO WARD MD, Ot J18 .9 PNEUMONIA, UNSPECIFIED ORGANISM 04/23/2019 EUSEBIO WARD MD, Ot J30 .2 OTHER SEASONAL ALLERGIC RHINITIS 04/23/2019 EUSEBIO WARD MD, Ot J44 .0 CHRONIC OBSTRUCTIVE PULMON DISEASE W ACU 04/23/2019 EUSEBIO WARD MD Ot J96.00 ACUTE RESPIRATORY FAILURE, UNSP W HYPOXI 04/23/2019 EUSEBIO WARD MD Ot K21 .9 GASTRO-ESOPHAGEAL REFLUX DISEASE WITHOUT 04/23/2019 EUSEBIO WARD MD Ot K59.09 OTHER CONSTIPATION 04/23/2019 EUSEBIO WARD MD Ot K64 .9 UNSPECIFIED HEMORRHOIDS 04/23/2019 EUSEBIO WARD MD Ot M19.91 PRIMARY OSTEOARTHRITIS, UNSPECIFIED SITE 04/23/2019 EUSEBIO WARD MD Ot N30.00 ACUTE CYSTITIS WITHOUT HEMATURIA 04/23/2019 EUSEBIO WARD MD Ot N32.81 OVERACTIVE BLADDER 04/23/2019 EUSEBIO WARD MD Ot R60 .9 EDEMA, UNSPECIFIED 04/23/2019 EUSEBIO WARD MD, Ot Z68.41 BODY MASS INDEX (BMI) 40.0-44.9, ADULT 04/23/2019 EUSEBIO WARD MD, Ot Z79 .4 [facility] (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 04/23/2019 EUSEBIO WARD MD, Ot Z87.11 PERSONAL HISTORY OF PEPTIC ULCER DISEASE 04/23/2019 EUSEBIO WARD MD, Ot Z87.891 PERSONAL HISTORY OF NICOTINE DEPENDENCE 04/23/2019 EUSEBIO WARD MD, Ot A41 .9 SEPSIS, UNSPECIFIED ORGANISM 04/23/2019 EUSEBIO WARD MD, Ot D64 .9 ANEMIA, UNSPECIFIED 04/23/2019 EUSEBIO WARD MD, Ot E11 .9 TYPE 2 DIABETES MELLITUS WITHOUT COMPLIC 04/23/2019 EUSEBIO WARD MD, Ot E66.01 MORBID (SEVERE) OBESITY DUE TO EXCESS CA 04/23/2019 EUSEBIO WARD MD, Ot E78.00 PURE HYPERCHOLESTEROLEMIA, UNSPECIFIED 04/23/2019 EUSEBIO WARD MD, Ot F32 .9 MAJOR DEPRESSIVE DISORDER, SINGLE EPISOD 04/23/2019 EUSEBIO WARD MD, Ot F41 .9 ANXIETY DISORDER, UNSPECIFIED 04/23/2019 EUSEBIO WARD MD, Ot G47.30 SLEEP APNEA, UNSPECIFIED 04/23/2019 EUSEBIO WARD MD, Ot I25.10 ATHSCL HEART DISEASE OF [place] CORONARY 04/23/2019 EUSEBIO WARD MD Ot 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 04/23/2019 EUSEBIO WARD MD, Ot I69.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 04/23/2019 EUSEBIO WARD MD Ot I69.391 DYSPHAGIA FOLLOWING CEREBRAL INFARCTION 04/23/2019 EUSEBIO WARD MD, Ot J18 .9 PNEUMONIA, UNSPECIFIED ORGANISM 04/23/2019 EUSEBIO WARD MD, Ot J30 .2 OTHER SEASONAL ALLERGIC RHINITIS 04/23/2019 EUSEBIO WARD MD, Ot J44 .0 CHRONIC OBSTRUCTIVE PULMON DISEASE W ACU 04/23/2019 EUSEBIO WARD MD Ot J96.00 ACUTE RESPIRATORY FAILURE, UNSP W HYPOXI 04/23/2019 EUSEBIO WARD MD Ot K21 .9 GASTRO-ESOPHAGEAL REFLUX DISEASE WITHOUT 04/23/2019 EUSEBIO WARD MD Ot K59.09 OTHER CONSTIPATION 04/23/2019 EUSEBIO WARD MD Ot K64 .9 UNSPECIFIED HEMORRHOIDS 04/23/2019 EUSEBIO WARD MD, Ot M19.91 PRIMARY OSTEOARTHRITIS, UNSPECIFIED SITE 04/23/2019 EUSEBIO WARD MD, Ot N30.00 ACUTE CYSTITIS WITHOUT HEMATURIA 04/23/2019 EUSEBIO WARD MD, Ot N32.81 OVERACTIVE BLADDER 04/23/2019 EUSEBIO WARD MD, Ot R60 .9 EDEMA, UNSPECIFIED 04/23/2019 EUSEBIO WARD MD, Ot Z68.41 BODY MASS INDEX (BMI) 40.0-44.9, ADULT 04/23/2019 EUSEBIO WARD MD, Ot 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 04/23/2019 EUSEBIO WARD MD, Ot Z87.11 PERSONAL HISTORY OF PEPTIC ULCER DISEASE 04/23/2019 EUSEBIO WARD MD, Ot Z87.891 PERSONAL HISTORY OF NICOTINE DEPENDENCE 04/24/2019 EUSEBIO WARD MD, Ot A41 .9 SEPSIS, UNSPECIFIED ORGANISM 04/24/2019 EUSEBIO WARD MD, Ot D64 .9 ANEMIA, UNSPECIFIED 04/24/2019 EUSEBIO WARD MD Ot E11 .9 TYPE 2 DIABETES MELLITUS WITHOUT COMPLIC 04/24/2019 EUSEBIO WARD MD Ot E66.01 MORBID (SEVERE) OBESITY DUE TO EXCESS CA 04/24/2019 EUSEBIO WARD MD Ot E78.00 PURE HYPERCHOLESTEROLEMIA, UNSPECIFIED 04/24/2019 EUSEBIO WARD MD Ot F32 .9 MAJOR DEPRESSIVE DISORDER, SINGLE EPISOD 04/24/2019 EUSEBIO WARD MD Ot F41 .9 ANXIETY DISORDER, UNSPECIFIED 04/24/2019 EUSEBIO WARD MD Ot G47.30 SLEEP APNEA, UNSPECIFIED 04/24/2019 EUSEBIO WARD MD Ot I25.10 ATHSCL HEART DISEASE OF [place] CORONARY 04/24/2019 EUSEBIO WARD MD Ot 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 04/24/2019 EUSEBIO WARD MD Ot I69.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 04/24/2019 EUSEBIO WARD MD Ot I69.391 DYSPHAGIA FOLLOWING CEREBRAL INFARCTION 04/24/2019 EUSEBIO WARD MD Ot J18 .9 PNEUMONIA, UNSPECIFIED ORGANISM 04/24/2019 EUSEBIO WARD MD Ot J30 .2 OTHER SEASONAL ALLERGIC RHINITIS 04/24/2019 EUSEBIO WARD MD, Ot J44 .0 CHRONIC OBSTRUCTIVE PULMON DISEASE W ACU 04/24/2019 EUSEBIO WARD MD Ot J96.00 ACUTE RESPIRATORY FAILURE, UNSP W HYPOXI 04/24/2019 EUSEBIO WARD MD Ot K21 .9 GASTRO-ESOPHAGEAL REFLUX DISEASE WITHOUT 04/24/2019 EUSEIBO WARD MD Ot K59.09 OTHER CONSTIPATION 04/24/2019 EUSEBIO WARD MD Ot K64 .9 UNSPECIFIED HEMORRHOIDS 04/24/2019 EUSEBIO WARD MD Ot M19.91 PRIMARY OSTEOARTHRITIS, UNSPECIFIED SITE 04/24/2019 EUSEBIO WARD MD Ot N30.00 ACUTE CYSTITIS WITHOUT HEMATURIA 04/24/2019 EUSEBIO WARD MD Ot N32.81 OVERACTIVE BLADDER 04/24/2019 EUSEBIO WARD MD Ot R60 .9 EDEMA, UNSPECIFIED 04/24/2019 EUSEBIO WARD MD Ot Z68.41 BODY MASS INDEX (BMI) 40.0-44.9, ADULT 04/24/2019 EUSEBIO WARD MD, Ot 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 04/24/2019 EUSEBIO WARD MD Ot Z87.11 PERSONAL HISTORY OF PEPTIC ULCER DISEASE 04/24/2019 EUSEBIO WARD MD, Ot Z87.891 PERSONAL HISTORY OF NICOTINE DEPENDENCE 04/25/2019 EUSEBIO WARD MD Ot A41 .9 SEPSIS, UNSPECIFIED ORGANISM 04/25/2019 EUSEBIO WARD MD Ot D64 .9 ANEMIA, UNSPECIFIED 04/25/2019 EUSEBIO WARD MD Ot E11 .9 TYPE 2 DIABETES MELLITUS WITHOUT COMPLIC 04/25/2019 EUSEBIO WARD MD Ot E66.01 MORBID (SEVERE) OBESITY DUE TO EXCESS CA 04/25/2019 EUSEBIO WARD MD Ot E78.00 PURE HYPERCHOLESTEROLEMIA, UNSPECIFIED 04/25/2019 EUSEBIO WARD MD Ot F32 .9 MAJOR DEPRESSIVE DISORDER, SINGLE EPISOD 04/25/2019 EUSEBIO WARD MD Ot F41 .9 ANXIETY DISORDER, UNSPECIFIED 04/25/2019 EUSEBIO WARD MD Ot G47.30 SLEEP APNEA, UNSPECIFIED 04/25/2019 EUSEBIO WARD MD, Ot I25.10 ATHSCL HEART DISEASE OF [place] CORONARY 04/25/2019 EUSEBIO WARD MD Ot 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 04/25/2019 EUSEBIO WARD MD Ot I69.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 04/25/2019 EUSEBIO WARD MD Ot I69.391 DYSPHAGIA FOLLOWING CEREBRAL INFARCTION 04/25/2019 EUSEBIO WARD MD Ot J18 .9 PNEUMONIA, UNSPECIFIED ORGANISM 04/25/2019 EUSEBIO WARD MD, Ot J30 .2 OTHER SEASONAL ALLERGIC RHINITIS 04/25/2019 EUSEBIO WARD MD, Ot J44 .0 CHRONIC OBSTRUCTIVE PULMON DISEASE W ACU 04/25/2019 EUSEBIO WARD MD, Ot J96.00 ACUTE RESPIRATORY FAILURE, UNSP W HYPOXI 04/25/2019 EUSEBIO WARD MD Ot K21 .9 GASTRO-ESOPHAGEAL REFLUX DISEASE WITHOUT 04/25/2019 EUSEBIO WARD MD Ot K59.09 OTHER CONSTIPATION 04/25/2019 EUSEBIO WARD MD Ot K64 .9 UNSPECIFIED HEMORRHOIDS 04/25/2019 EUSEBIO WARD MD, Ot M19.91 PRIMARY OSTEOARTHRITIS, UNSPECIFIED SITE 04/25/2019 EUSEBIO WARD MD Ot N30.00 ACUTE CYSTITIS WITHOUT HEMATURIA 04/25/2019 EUSEBIO WARD MD Ot N32.81 OVERACTIVE BLADDER 04/25/2019 EUSEBIO WARD MD Ot R60 .9 EDEMA, UNSPECIFIED 04/25/2019 EUSEBIO WARD MD, Ot Z68.41 BODY MASS INDEX (BMI) 40.0-44.9, ADULT 04/25/2019 EUSEBIO WARD MD, Ot 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 04/25/2019 EUSEBIO WARD MD, Ot Z87.11 PERSONAL HISTORY OF PEPTIC ULCER DISEASE 04/25/2019 EUSEBIO WARD MD, Ot Z87.891 PERSONAL HISTORY OF NICOTINE DEPENDENCE 04/25/2019 ED MD, EUSEBIO N Ot A41 .9 SEPSIS, UNSPECIFIED ORGANISM 04/25/2019 EUSEBIO WARD MD Ot D64 .9 ANEMIA, UNSPECIFIED 04/25/2019 EUSEBIO WARD MD Ot E11 .9 TYPE 2 DIABETES MELLITUS WITHOUT COMPLIC 04/25/2019 EUSEBIO WARD MD Ot E66.01 MORBID (SEVERE) OBESITY DUE TO EXCESS CA 04/25/2019 EUSEBIO WARD MD Ot E78.00 PURE HYPERCHOLESTEROLEMIA, UNSPECIFIED 04/25/2019 EUSEBIO WARD MD Ot F32 .9 MAJOR DEPRESSIVE DISORDER, SINGLE EPISOD 04/25/2019 EUSEBIO WARD MD Ot F41 .9 ANXIETY DISORDER, UNSPECIFIED 04/25/2019 EUSEBIO WARD MD Ot G47.30 SLEEP APNEA, UNSPECIFIED 04/25/2019 EUSEBIO WARD MD Ot I25.10 ATHSCL HEART DISEASE OF [place] CORONARY 04/25/2019 EUSEBIO WARD MD Ot 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 04/25/2019 EUSEBIO WARD MD Ot I69.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 04/25/2019 EUSEBIO WARD MD Ot I69.391 DYSPHAGIA FOLLOWING CEREBRAL INFARCTION 04/25/2019 EUSEBIO WARD MD Ot J18 .9 PNEUMONIA, UNSPECIFIED ORGANISM 04/25/2019 EUSEBIO WARD MD Ot J30 .2 OTHER SEASONAL ALLERGIC RHINITIS 04/25/2019 EUSEBIO WARD MD Ot J44 .0 CHRONIC OBSTRUCTIVE PULMON DISEASE W ACU 04/25/2019 EUSEBIO WARD MD Ot J96.00 ACUTE RESPIRATORY FAILURE, UNSP W HYPOXI 04/25/2019 EUSEBIO WARD MD Ot K21 .9 GASTRO-ESOPHAGEAL REFLUX DISEASE WITHOUT 04/25/2019 EUSEBIO WARD MD Ot K59.09 OTHER CONSTIPATION 04/25/2019 EUSEBIO WARD MD Ot K64 .9 UNSPECIFIED HEMORRHOIDS 04/25/2019 EUSEBIO WARD MD Ot M19.91 PRIMARY OSTEOARTHRITIS, UNSPECIFIED SITE 04/25/2019 EUSEBIO WARD MD Ot N30.00 ACUTE CYSTITIS WITHOUT HEMATURIA 04/25/2019 EUSEBIO WARD MD Ot N32.81 OVERACTIVE BLADDER 04/25/2019 EUSEBIO WARD MD, Ot R60 .9 EDEMA, UNSPECIFIED 04/25/2019 EUSEBIO WARD MD, Ot Z68.41 BODY MASS INDEX (BMI) 40.0-44.9, ADULT 04/25/2019 EUSEBIO WARD MD, Ot Z79 .4 [facility] (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 04/25/2019 EUSEBIO WARD MD, Ot Z87.11 PERSONAL HISTORY OF PEPTIC ULCER DISEASE 04/25/2019 EUSEBIO WARD MD, Ot Z87.891 PERSONAL HISTORY OF NICOTINE DEPENDENCE 04/26/2019 EUSEBIO WARD MD, Ot A41 .9 SEPSIS, UNSPECIFIED ORGANISM 04/26/2019 EUSEBIO WARD MD, Ot B37 .0 CANDIDAL STOMATITIS 04/26/2019 EUSEBIO WARD MD, Ot B37.41 CANDIDAL CYSTITIS AND URETHRITIS 04/26/2019 EUSEBIO WARD MD, Ot D50 .9 IRON DEFICIENCY ANEMIA, UNSPECIFIED 04/26/2019 EUSEBIO WARD MD, Ot D63 .1 ANEMIA IN CHRONIC KIDNEY DISEASE 04/26/2019 EUSEBIO WARD MD Ot E11 .9 TYPE 2 DIABETES MELLITUS WITHOUT COMPLIC 04/26/2019 EUSEBIO WARD MD Ot E66.01 MORBID (SEVERE) OBESITY DUE TO EXCESS CA 04/26/2019 EUSEBIO WARD MD Ot E78.00 PURE HYPERCHOLESTEROLEMIA, UNSPECIFIED 04/26/2019 EUSEBIO WARD MD, Ot F32 .9 MAJOR DEPRESSIVE DISORDER, SINGLE EPISOD 04/26/2019 EUSEBIO WARD MD, Ot F41 .9 ANXIETY DISORDER, UNSPECIFIED 04/26/2019 EUSEBIO WARD MD, Ot 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 04/26/2019 EUSEBIO WARD MD Ot I12 .9 HYPERTENSIVE CHRONIC KIDNEY DISEASE W ST 04/26/2019 EUSEBIO WARD MD Ot I25.10 ATHSCL HEART DISEASE OF [place] CORONARY 04/26/2019 EUSEBIO AWRD MD, Ot I48 .0 PAROXYSMAL ATRIAL FIBRILLATION 04/26/2019 EUSEBIO WARD MD, Ot I50 .9 HEART FAILURE, UNSPECIFIED 04/26/2019 EUSEBIO WARD MD, Ot 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 04/26/2019 EUSEBIO WARD MD, Ot I69.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 04/26/2019 EUSEBIO WARD MD, Ot I69.391 DYSPHAGIA FOLLOWING CEREBRAL INFARCTION 04/26/2019 EUSEBIO WARD MD, Ot I89 .0 LYMPHEDEMA, NOT ELSEWHERE CLASSIFIED 04/26/2019 EUSEBIO WARD MD, Ot J18 .9 PNEUMONIA, UNSPECIFIED ORGANISM 04/26/2019 EUSEBIO WARD MD, Ot J44 .0 CHRONIC OBSTRUCTIVE PULMON DISEASE W ACU 04/26/2019 EUSEBIO WARD MD, Ot J96.00 ACUTE RESPIRATORY FAILURE, UNSP W HYPOXI 04/26/2019 EUSEBIO WARD MD, Ot K21 .9 GASTRO-ESOPHAGEAL REFLUX DISEASE WITHOUT 04/26/2019 EUSEBIO WARD MD, Ot N17 .9 ACUTE KIDNEY FAILURE, UNSPECIFIED 04/26/2019 EUSEBIO WARD MD, Ot N18 .4 CHRONIC KIDNEY DISEASE, STAGE 4 (SEVERE) 04/26/2019 EUSEBIO WARD MD, Ot N30.01 ACUTE CYSTITIS WITH HEMATURIA 04/26/2019 EUSEBIO WARD MD, Ot Z68.41 BODY MASS INDEX (BMI) 40.0-44.9, ADULT 04/26/2019 EUSEBIO WARD MD, Ot 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 04/26/2019 EUSEBIO WARD MD, Ot Z87.891 PERSONAL HISTORY OF NICOTINE DEPENDENCE 04/26/2019 EUSEBIO WARD MD, Ot Z91.19 PATIENT'S NONCOMPLIANCE W [facility] MEDICAL TR 04/27/2019 EUSEBIO WADR MD, Ot A41 .9 SEPSIS, UNSPECIFIED ORGANISM 04/27/2019 EUSEBIO AWRD MD, Ot B37 .0 CANDIDAL STOMATITIS 04/27/2019 EUSEBIO WARD MD, Ot B37.41 CANDIDAL CYSTITIS AND URETHRITIS 04/27/2019 EUSEBIO WARD MD, Ot D50 .9 IRON DEFICIENCY ANEMIA, UNSPECIFIED 04/27/2019 EUSEBIO WARD MD, Ot D63 .1 ANEMIA IN CHRONIC KIDNEY DISEASE 04/27/2019 EUSEBIO WARD MD Ot E11 .9 TYPE 2 DIABETES MELLITUS WITHOUT COMPLIC 04/27/2019 EUSEBIO WARD MD Ot E66.01 MORBID (SEVERE) OBESITY DUE TO EXCESS CA 04/27/2019 EUSEBIO WARD MD Ot E78.00 PURE HYPERCHOLESTEROLEMIA, UNSPECIFIED 04/27/2019 EUSEBIO WARD MD Ot F32 .9 MAJOR DEPRESSIVE DISORDER, SINGLE EPISOD 04/27/2019 EUSEBIO WARD MD, Ot F41 .9 ANXIETY DISORDER, UNSPECIFIED 04/27/2019 EUSEBIO WARD MD, Ot 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 04/27/2019 EUSEBIO WARD MD Ot I12 .9 HYPERTENSIVE CHRONIC KIDNEY DISEASE W ST 04/27/2019 EUSEBIO WARD MD Ot I25.10 ATHSCL HEART DISEASE OF [place] CORONARY 04/27/2019 EUSEBIO WARD MD Ot I48 .0 PAROXYSMAL ATRIAL FIBRILLATION 04/27/2019 EUSEBIO WARD MD Ot I50 .9 HEART FAILURE, UNSPECIFIED 04/27/2019 EUSEBIO WARD MD Ot 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 04/27/2019 EUSEBIO WARD MD Ot I69.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 04/27/2019 EUSEBIO WARD MD Ot I69.391 DYSPHAGIA FOLLOWING CEREBRAL INFARCTION 04/27/2019 EUSEBIO WARD MD Ot I89 .0 LYMPHEDEMA, NOT ELSEWHERE CLASSIFIED 04/27/2019 EUSEBIO WARD MD Ot J18 .9 PNEUMONIA, UNSPECIFIED ORGANISM 04/27/2019 EUSEBIO WARD MD Ot J44 .0 CHRONIC OBSTRUCTIVE PULMON DISEASE W ACU 04/27/2019 EUSEBIO WARD MD Ot J96.00 ACUTE RESPIRATORY FAILURE, UNSP W HYPOXI 04/27/2019 EUSEBIO WARD MD Ot K21 .9 GASTRO-ESOPHAGEAL REFLUX DISEASE WITHOUT 04/27/2019 EUSEBIO WARD MD Ot N17 .9 ACUTE KIDNEY FAILURE, UNSPECIFIED 04/27/2019 EUSEBIO WARD MD Ot N18 .4 CHRONIC KIDNEY DISEASE, STAGE 4 (SEVERE) 04/27/2019 EUSEBIO WARD MD Ot N30.01 ACUTE CYSTITIS WITH HEMATURIA 04/27/2019 EUSEBIO WARD MD, Ot Z68.41 BODY MASS INDEX (BMI) 40.0-44.9, ADULT 04/27/2019 EUSEBIO WARD MD, Ot 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 04/27/2019 EUSEBIO WARD MD, Ot Z87.891 PERSONAL HISTORY OF NICOTINE DEPENDENCE 04/27/2019 EUSEBIO WARD MD, Ot Z91.19 PATIENT'S NONCOMPLIANCE W [facility] MEDICAL TR 04/28/2019 EUSEBIO WARD MD, Ot A41 .9 SEPSIS, UNSPECIFIED ORGANISM 04/28/2019 EUSEBIO WARD MD, Ot B37 .0 CANDIDAL STOMATITIS 04/28/2019 EUSEBIO WARD MD, Ot B37.41 CANDIDAL CYSTITIS AND URETHRITIS 04/28/2019 EUSEBIO WARD MD, Ot D50 .9 IRON DEFICIENCY ANEMIA, UNSPECIFIED 04/28/2019 EUSEBIO WARD MD, Ot D63 .1 ANEMIA IN CHRONIC KIDNEY DISEASE 04/28/2019 EUSEBIO WARD MD Ot E11 .9 TYPE 2 DIABETES MELLITUS WITHOUT COMPLIC 04/28/2019 EUSEBIO WARD MD Ot E66.01 MORBID (SEVERE) OBESITY DUE TO EXCESS CA 04/28/2019 EUSEBIO WARD MD Ot E78.00 PURE HYPERCHOLESTEROLEMIA, UNSPECIFIED 04/28/2019 EUSEBIO WARD MD, Ot F32 .9 MAJOR DEPRESSIVE DISORDER, SINGLE EPISOD 04/28/2019 EUSEBIO WARD MD, Ot F41 .9 ANXIETY DISORDER, UNSPECIFIED 04/28/2019 EUSEBIO WARD MD, Ot 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 04/28/2019 EUSEBIO WARD MD, Ot I12 .9 HYPERTENSIVE CHRONIC KIDNEY DISEASE W ST 04/28/2019 EUSEBIO WARD MD, Ot I25.10 ATHSCL HEART DISEASE OF [place] CORONARY 04/28/2019 EUSEBIO WARD MD, Ot I48 .0 PAROXYSMAL ATRIAL FIBRILLATION 04/28/2019 EUSEBIO WARD MD, Ot I50 .9 HEART FAILURE, UNSPECIFIED 04/28/2019 EUSEBIO WARD MD Ot 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 04/28/2019 EUSEBIO WARD MD, Ot I69.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 04/28/2019 EUSEBIO WARD MD, Ot I69.391 DYSPHAGIA FOLLOWING CEREBRAL INFARCTION 04/28/2019 EUSEBIO WARD MD, Ot I89 .0 LYMPHEDEMA, NOT ELSEWHERE CLASSIFIED 04/28/2019 EUSEBIO WARD MD, Ot J18 .9 PNEUMONIA, UNSPECIFIED ORGANISM 04/28/2019 EUSEBIO WARD MD, Ot J44 .0 CHRONIC OBSTRUCTIVE PULMON DISEASE W ACU 04/28/2019 EUSEBIO WARD MD, Ot J96.00 ACUTE RESPIRATORY FAILURE, UNSP W HYPOXI 04/28/2019 EUSEBIO WARD MD, Ot K21 .9 GASTRO-ESOPHAGEAL REFLUX DISEASE WITHOUT 04/28/2019 EUSEBIO WARD MD, Ot N17 .9 ACUTE KIDNEY FAILURE, UNSPECIFIED 04/28/2019 EUSEBIO WARD MD, Ot N18 .4 CHRONIC KIDNEY DISEASE, STAGE 4 (SEVERE) 04/28/2019 EUSEBIO WARD MD, Ot N30.01 ACUTE CYSTITIS WITH HEMATURIA 04/28/2019 EUSEBIO WARD MD, Ot Z68.41 BODY MASS INDEX (BMI) 40.0-44.9, ADULT 04/28/2019 EUSEBIO WARD MD, Ot 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 04/28/2019 EUSEBIO WARD MD, Ot Z87.891 PERSONAL HISTORY OF NICOTINE DEPENDENCE 04/28/2019 EUSEBIO WARD MD, Ot Z91.19 PATIENT'S NONCOMPLIANCE W [facility] MEDICAL TR 04/29/2019 EUSEBIO WARD MD, Ot A41 .9 SEPSIS, UNSPECIFIED ORGANISM 04/29/2019 EUSEBIO WARD MD, Ot B37 .0 CANDIDAL STOMATITIS 04/29/2019 EUSEBIO WARD MD, Ot B37.41 CANDIDAL CYSTITIS AND URETHRITIS 04/29/2019 EUSEBIO WARD MD, Ot D50 .9 IRON DEFICIENCY ANEMIA, UNSPECIFIED 04/29/2019 EUSEBIO WARD MD, Ot D63 .1 ANEMIA IN CHRONIC KIDNEY DISEASE 04/29/2019 EUSEBIO WARD MD, Ot E11 .9 TYPE 2 DIABETES MELLITUS WITHOUT COMPLIC 04/29/2019 EUSEBIO WARD MD, Ot E66.01 MORBID (SEVERE) OBESITY DUE TO EXCESS CA 04/29/2019 EUSEBIO WARD MD, Ot E78.00 PURE HYPERCHOLESTEROLEMIA, UNSPECIFIED 04/29/2019 EUSEBIO WARD MD, Ot F32 .9 MAJOR DEPRESSIVE DISORDER, SINGLE EPISOD 04/29/2019 EUSEBIO WARD MD, Ot F41 .9 ANXIETY DISORDER, UNSPECIFIED 04/29/2019 EUSEBIO WARD MD, Ot 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 04/29/2019 EUSEBIO WARD MD, Ot I12 .9 HYPERTENSIVE CHRONIC KIDNEY DISEASE W ST 04/29/2019 EUSEBIO WARD MD, Ot I25.10 ATHSCL HEART DISEASE OF [place] CORONARY 04/29/2019 EUSEBIO WARD MD, Ot I48 .0 PAROXYSMAL ATRIAL FIBRILLATION 04/29/2019 EUSEBIO WARD MD, Ot I50 .9 HEART FAILURE, UNSPECIFIED 04/29/2019 EUSEBIO WARD MD Ot 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 04/29/2019 EUSEBIO WARD MD Ot I69.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 04/29/2019 EUSEBIO WARD MD Ot I69.391 DYSPHAGIA FOLLOWING CEREBRAL INFARCTION 04/29/2019 EUSEBIO WARD MD Ot I89 .0 LYMPHEDEMA, NOT ELSEWHERE CLASSIFIED 04/29/2019 EUSEBIO WARD MD, Ot J18 .9 PNEUMONIA, UNSPECIFIED ORGANISM 04/29/2019 EUSEBIO WARD MD, Ot J44 .0 CHRONIC OBSTRUCTIVE PULMON DISEASE W ACU 04/29/2019 EUSEBIO WARD MD Ot J96.00 ACUTE RESPIRATORY FAILURE, UNSP W HYPOXI 04/29/2019 EUSEBIO WARD MD Ot K21 .9 GASTRO-ESOPHAGEAL REFLUX DISEASE WITHOUT 04/29/2019 EUSEBIO WARD MD, Ot N17 .9 ACUTE KIDNEY FAILURE, UNSPECIFIED 04/29/2019 EUSEBIO WARD MD, Ot N18 .4 CHRONIC KIDNEY DISEASE, STAGE 4 (SEVERE) 04/29/2019 EUSEBIO WARD MD Ot N30.01 ACUTE CYSTITIS WITH HEMATURIA 04/29/2019 EUSEBIO WARD MD Ot Z68.41 BODY MASS INDEX (BMI) 40.0-44.9, ADULT 04/29/2019 EUSEBIO WARD MD, Ot Z79 .4 [facility] (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 04/29/2019 EUSEBIO WARD MD, Ot Z87.891 PERSONAL HISTORY OF NICOTINE DEPENDENCE 04/29/2019 EUSEBIO WARD MD, Ot Z91.19 PATIENT'S NONCOMPLIANCE W [facility] MEDICAL TR 04/30/2019 EUSEBIO WARD MD, Ot A41 .9 SEPSIS, UNSPECIFIED ORGANISM 04/30/2019 EUSEBIO WARD MD, Ot B37 .0 CANDIDAL STOMATITIS 04/30/2019 EUSEBIO WARD MD, Ot B37.41 CANDIDAL CYSTITIS AND URETHRITIS 04/30/2019 EUSEBIO WARD MD, Ot D50 .9 IRON DEFICIENCY ANEMIA, UNSPECIFIED 04/30/2019 EUSEBIO WARD MD, Ot D63 .1 ANEMIA IN CHRONIC KIDNEY DISEASE 04/30/2019 EUSEBIO WARD MD Ot E11 .9 TYPE 2 DIABETES MELLITUS WITHOUT COMPLIC 04/30/2019 EUSEBIO WARD MD Ot E66.01 MORBID (SEVERE) OBESITY DUE TO EXCESS CA 04/30/2019 EUSEBIO WARD MD, Ot E78.00 PURE HYPERCHOLESTEROLEMIA, UNSPECIFIED 04/30/2019 EUSEBIO WARD MD, Ot F32 .9 MAJOR DEPRESSIVE DISORDER, SINGLE EPISOD 04/30/2019 EUSEBIO WARD MD, Ot F41 .9 ANXIETY DISORDER, UNSPECIFIED 04/30/2019 EUSEBIO WARD MD Ot 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 04/30/2019 EUSEBIO WARD MD Ot I12 .9 HYPERTENSIVE CHRONIC KIDNEY DISEASE W ST 04/30/2019 EUSEBIO WARD MD Ot I25.10 ATHSCL HEART DISEASE OF [place] CORONARY 04/30/2019 EUSEBIO WARD MD, Ot I48 .0 PAROXYSMAL ATRIAL FIBRILLATION 04/30/2019 EUSEBIO WARD MD, Ot I50 .9 HEART FAILURE, UNSPECIFIED 04/30/2019 EUSEBIO WARD MD Ot 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 04/30/2019 EUSEBIO WARD MD Ot I69.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 04/30/2019 EUSEBIO WARD MD, Ot I69.391 DYSPHAGIA FOLLOWING CEREBRAL INFARCTION 04/30/2019 EUSEBIO WARD MD, Ot I89 .0 LYMPHEDEMA, NOT ELSEWHERE CLASSIFIED 04/30/2019 EUSEBIO WARD MD, Ot J18 .9 PNEUMONIA, UNSPECIFIED ORGANISM 04/30/2019 EUSEBIO WARD MD, Ot J44 .0 CHRONIC OBSTRUCTIVE PULMON DISEASE W ACU 04/30/2019 EUSEBIO WARD MD, Ot J96.00 ACUTE RESPIRATORY FAILURE, UNSP W HYPOXI 04/30/2019 EUSEBIO WARD MD, Ot K21 .9 GASTRO-ESOPHAGEAL REFLUX DISEASE WITHOUT 04/30/2019 EUSEBIO WARD MD, Ot N17 .9 ACUTE KIDNEY FAILURE, UNSPECIFIED 04/30/2019 EUSEBIO WARD MD, Ot N18 .4 CHRONIC KIDNEY DISEASE, STAGE 4 (SEVERE) 04/30/2019 EUSEBIO WARD MD, Ot N30.01 ACUTE CYSTITIS WITH HEMATURIA 04/30/2019 EUSEBIO WARD MD, Ot Z68.41 BODY MASS INDEX (BMI) 40.0-44.9, ADULT 04/30/2019 EUSEBIO WARD MD, Ot Z79 .4 [facility] (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 04/30/2019 EUSEBIO WARD MD, Ot Z87.891 PERSONAL HISTORY OF NICOTINE DEPENDENCE 04/30/2019 EUSEBIO WARD MD, Ot Z91.19 PATIENT'S NONCOMPLIANCE W [facility] MEDICAL TR 04/30/2019 EUSEBIO WARD MD, Ot A41 .9 SEPSIS, UNSPECIFIED ORGANISM 04/30/2019 EUSEBIO WARD MD, Ot B37 .0 CANDIDAL STOMATITIS 04/30/2019 EUSEBIO WARD MD, Ot B37.41 CANDIDAL CYSTITIS AND URETHRITIS 04/30/2019 EUSEBIO WARD MD, Ot D50 .9 IRON DEFICIENCY ANEMIA, UNSPECIFIED 04/30/2019 EUSEBIO WARD MD, Ot D63 .1 ANEMIA IN CHRONIC KIDNEY DISEASE 04/30/2019 EUSEBIO WARD MD, Ot E11 .9 TYPE 2 DIABETES MELLITUS WITHOUT COMPLIC 04/30/2019 EUSEBIO WARD MD, Ot E66.01 MORBID (SEVERE) OBESITY DUE TO EXCESS CA 04/30/2019 EUSEBIO WARD MD Ot E78.00 PURE HYPERCHOLESTEROLEMIA, UNSPECIFIED 04/30/2019 EUSEBIO WARD MD Ot F32 .9 MAJOR DEPRESSIVE DISORDER, SINGLE EPISOD 04/30/2019 EUSEBIO WARD MD Ot F41 .9 ANXIETY DISORDER, UNSPECIFIED 04/30/2019 EUSEBIO WARD MD Ot 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 04/30/2019 EUSEBIO WARD MD Ot I12 .9 HYPERTENSIVE CHRONIC KIDNEY DISEASE W ST 04/30/2019 EUSEBIO WARD MD Ot I25.10 ATHSCL HEART DISEASE OF [place] CORONARY 04/30/2019 EUSEBIO WARD MD Ot I48 .0 PAROXYSMAL ATRIAL FIBRILLATION 04/30/2019 EUSEBIO WARD MD Ot I50 .9 HEART FAILURE, UNSPECIFIED 04/30/2019 EUSEBIO WARD MD Ot 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 04/30/2019 EUSEBIO WARD MD Ot I69.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 04/30/2019 EUSEBIO WARD MD Ot I69.391 DYSPHAGIA FOLLOWING CEREBRAL INFARCTION 04/30/2019 EUSEBIO WARD MD Ot I89 .0 LYMPHEDEMA, NOT ELSEWHERE CLASSIFIED 04/30/2019 EUSEBIO WARD MD Ot J18 .9 PNEUMONIA, UNSPECIFIED ORGANISM 04/30/2019 EUESBIO WARD MD Ot J44 .0 CHRONIC OBSTRUCTIVE PULMON DISEASE W ACU 04/30/2019 EUSEBIO WARD MD Ot J96.00 ACUTE RESPIRATORY FAILURE, UNSP W HYPOXI 04/30/2019 EUSEBIO WARD MD Ot K21 .9 GASTRO-ESOPHAGEAL REFLUX DISEASE WITHOUT 04/30/2019 EUSEBIO WARD MD Ot N17 .9 ACUTE KIDNEY FAILURE, UNSPECIFIED 04/30/2019 EUSEBIO WARD MD Ot N18 .4 CHRONIC KIDNEY DISEASE, STAGE 4 (SEVERE) 04/30/2019 EUSEBIO WARD MD Ot N30.01 ACUTE CYSTITIS WITH HEMATURIA 04/30/2019 EUSEBIO WARD MD Ot Z68.41 BODY MASS INDEX (BMI) 40.0-44.9, ADULT 04/30/2019 EUSEBIO WARD MD Ot Z79 .4 [facility] (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 04/30/2019 EUSEBIO WARD MD, Ot Z87.891 PERSONAL HISTORY OF NICOTINE DEPENDENCE 04/30/2019 EUSEBIO WARD MD, Ot Z91.19 PATIENT'S NONCOMPLIANCE W [facility] MEDICAL TR 05/01/2019 EUSEBIO WARD MD, Ot A41 .9 SEPSIS, UNSPECIFIED ORGANISM 05/01/2019 EUSEBIO WARD MD, Ot B37 .0 CANDIDAL STOMATITIS 05/01/2019 EUSEBIO WARD MD, Ot B37.41 CANDIDAL CYSTITIS AND URETHRITIS 05/01/2019 EUSEBIO WARD MD, Ot D50 .9 IRON DEFICIENCY ANEMIA, UNSPECIFIED 05/01/2019 EUSEBIO WARD MD, Ot D63 .1 ANEMIA IN CHRONIC KIDNEY DISEASE 05/01/2019 EUSEBIO WARD MD Ot E11 .9 TYPE 2 DIABETES MELLITUS WITHOUT COMPLIC 05/01/2019 EUSEBIO WARD MD Ot E66.01 MORBID (SEVERE) OBESITY DUE TO EXCESS CA 05/01/2019 EUSEBIO WARD MD Ot E78.00 PURE HYPERCHOLESTEROLEMIA, UNSPECIFIED 05/01/2019 EUSEBIO WARD MD, Ot F32 .9 MAJOR DEPRESSIVE DISORDER, SINGLE EPISOD 05/01/2019 EUSEBIO WARD MD, Ot F41 .9 ANXIETY DISORDER, UNSPECIFIED 05/01/2019 EUSEBIO WARD MD, Ot 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 05/01/2019 EUSEBIO WARD MD Ot I12 .9 HYPERTENSIVE CHRONIC KIDNEY DISEASE W ST 05/01/2019 EUSEBIO WARD MD Ot I25.10 ATHSCL HEART DISEASE OF [place] CORONARY 05/01/2019 EUSEBIO WARD MD Ot I48 .0 PAROXYSMAL ATRIAL FIBRILLATION 05/01/2019 EUSEBIO WARD MD Ot I50 .9 HEART FAILURE, UNSPECIFIED 05/01/2019 EUSEBIO WARD MD Ot 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 05/01/2019 EUSEBIO WARD MD Ot I69.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 05/01/2019 EUSEBIO WARD MD Ot I69.391 DYSPHAGIA FOLLOWING CEREBRAL INFARCTION 05/01/2019 EUSEBIO WARD MD, Ot I89 .0 LYMPHEDEMA, NOT ELSEWHERE CLASSIFIED 05/01/2019 EUSEBIO WARD MD, Ot J18 .9 PNEUMONIA, UNSPECIFIED ORGANISM 05/01/2019 EUSEBIO WARD MD, Ot J44 .0 CHRONIC OBSTRUCTIVE PULMON DISEASE W ACU 05/01/2019 EUSEBIO WARD MD, Ot J96.00 ACUTE RESPIRATORY FAILURE, UNSP W HYPOXI 05/01/2019 EUSEBIO WARD MD, Ot K21 .9 GASTRO-ESOPHAGEAL REFLUX DISEASE WITHOUT 05/01/2019 EUSEBIO WARD MD, Ot N17 .9 ACUTE KIDNEY FAILURE, UNSPECIFIED 05/01/2019 EUSEBIO WARD MD, Ot N18 .4 CHRONIC KIDNEY DISEASE, STAGE 4 (SEVERE) 05/01/2019 EUSEBIO WARD MD, Ot N30.01 ACUTE CYSTITIS WITH HEMATURIA 05/01/2019 EUSEBIO WARD MD, Ot Z68.41 BODY MASS INDEX (BMI) 40.0-44.9, ADULT 05/01/2019 EUSEBIO WARD MD, Ot 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 05/01/2019 EUSEBIO WARD MD, Ot Z87.891 PERSONAL HISTORY OF NICOTINE DEPENDENCE 05/01/2019 EUSEBIO WARD MD, Ot Z91.19 PATIENT'S NONCOMPLIANCE W [facility] MEDICAL TR 05/01/2019 EUSEBIO WARD MD, Ot A41 .9 SEPSIS, UNSPECIFIED ORGANISM 05/01/2019 EUSEBIO WARD MD, Ot B37 .0 CANDIDAL STOMATITIS 05/01/2019 EUSEBIO WARD MD, Ot B37.41 CANDIDAL CYSTITIS AND URETHRITIS 05/01/2019 EUSEBIO WARD MD, Ot D50 .9 IRON DEFICIENCY ANEMIA, UNSPECIFIED 05/01/2019 EUSEBIO WARD MD, Ot D63 .1 ANEMIA IN CHRONIC KIDNEY DISEASE 05/01/2019 EUSEBIO WARD MD, Ot E11 .9 TYPE 2 DIABETES MELLITUS WITHOUT COMPLIC 05/01/2019 EUSEBIO WARD MD, Ot E66.01 MORBID (SEVERE) OBESITY DUE TO EXCESS CA 05/01/2019 EUSEBIO WARD MD, Ot E78.00 PURE HYPERCHOLESTEROLEMIA, UNSPECIFIED 05/01/2019 EUSEBIO WARD MD, Ot F32 .9 MAJOR DEPRESSIVE DISORDER, SINGLE EPISOD 05/01/2019 EUSEBIO WARD MD, Ot F41 .9 ANXIETY DISORDER, UNSPECIFIED 05/01/2019 EUSEBIO WARD MD, Ot 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 05/01/2019 EUSEBIO WARD MD, Ot I12 .9 HYPERTENSIVE CHRONIC KIDNEY DISEASE W ST 05/01/2019 EUSEBIO WARD MD, Ot I25.10 ATHSCL HEART DISEASE OF [place] CORONARY 05/01/2019 EUSEBIO WARD MD Ot I48 .0 PAROXYSMAL ATRIAL FIBRILLATION 05/01/2019 EUSEBIO WARD MD, Ot I50 .9 HEART FAILURE, UNSPECIFIED 05/01/2019 EUSEBIO WARD MD Ot 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 05/01/2019 EUSEBIO WARD MD Ot I69.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 05/01/2019 EUSEBIO WARD MD Ot I69.391 DYSPHAGIA FOLLOWING CEREBRAL INFARCTION 05/01/2019 EUSEBIO WARD MD Ot I89 .0 LYMPHEDEMA, NOT ELSEWHERE CLASSIFIED 05/01/2019 EUSEBIO WARD MD, Ot J18 .9 PNEUMONIA, UNSPECIFIED ORGANISM 05/01/2019 EUSEBIO WARD MD, Ot J44 .0 CHRONIC OBSTRUCTIVE PULMON DISEASE W ACU 05/01/2019 EUSEBIO WARD MD, Ot J96.00 ACUTE RESPIRATORY FAILURE, UNSP W HYPOXI 05/01/2019 EUSEBIO WARD MD, Ot K21 .9 GASTRO-ESOPHAGEAL REFLUX DISEASE WITHOUT 05/01/2019 EUSEBIO WARD MD Ot N17 .9 ACUTE KIDNEY FAILURE, UNSPECIFIED 05/01/2019 EUSEBIO WARD MD Ot N18 .4 CHRONIC KIDNEY DISEASE, STAGE 4 (SEVERE) 05/01/2019 EUSEBIO WARD MD Ot N30.01 ACUTE CYSTITIS WITH HEMATURIA 05/01/2019 EUSEBIO WARD MD, Ot Z68.41 BODY MASS INDEX (BMI) 40.0-44.9, ADULT 05/01/2019 EUSEBIO WARD MD, Ot 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 05/01/2019 EUSEBIO WARD MD, Ot Z87.891 PERSONAL HISTORY OF NICOTINE DEPENDENCE 05/01/2019 EUSEBIO WARD MD, Ot Z91.19 PATIENT'S NONCOMPLIANCE W [facility] MEDICAL TR 05/02/2019 EUSEBIO WARD MD, Ot A41 .9 SEPSIS, UNSPECIFIED ORGANISM 05/02/2019 EUSEBIO WARD MD, Ot B37 .0 CANDIDAL STOMATITIS 05/02/2019 EUSEBIO WARD MD, Ot B37.41 CANDIDAL CYSTITIS AND URETHRITIS 05/02/2019 EUSEBIO WARD MD, Ot D50 .9 IRON DEFICIENCY ANEMIA, UNSPECIFIED 05/02/2019 EUSEBIO WARD MD, Ot D63 .1 ANEMIA IN CHRONIC KIDNEY DISEASE 05/02/2019 EUSEBIO WARD MD, Ot E11 .9 TYPE 2 DIABETES MELLITUS WITHOUT COMPLIC 05/02/2019 EUSEBIO WARD MD Ot E66.01 MORBID (SEVERE) OBESITY DUE TO EXCESS CA 05/02/2019 EUSEBIO WARD MD Ot E78.00 PURE HYPERCHOLESTEROLEMIA, UNSPECIFIED 05/02/2019 EUSEBIO WARD MD, Ot F32 .9 MAJOR DEPRESSIVE DISORDER, SINGLE EPISOD 05/02/2019 EUSEBIO WARD MD, Ot F41 .9 ANXIETY DISORDER, UNSPECIFIED 05/02/2019 EUSEBIO WARD MD, Ot 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 05/02/2019 EUSEBIO WARD MD Ot I12 .9 HYPERTENSIVE CHRONIC KIDNEY DISEASE W ST 05/02/2019 EUSEBIO WARD MD Ot I25.10 ATHSCL HEART DISEASE OF [place] CORONARY 05/02/2019 EUSEBIO WARD MD Ot I48 .0 PAROXYSMAL ATRIAL FIBRILLATION 05/02/2019 EUSEBIO WARD MD, Ot I50 .9 HEART FAILURE, UNSPECIFIED 05/02/2019 EUSEBIO WARD MD Ot 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 05/02/2019 EUSEBIO WARD MD Ot I69.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 05/02/2019 EUSEBIO WARD MD Ot I69.391 DYSPHAGIA FOLLOWING CEREBRAL INFARCTION 05/02/2019 EUSEBIO WARD MD Ot I89 .0 LYMPHEDEMA, NOT ELSEWHERE CLASSIFIED 05/02/2019 EUSEBIO WARD MD, Ot J18 .9 PNEUMONIA, UNSPECIFIED ORGANISM 05/02/2019 EUSEBIO WARD MD, Ot J44 .0 CHRONIC OBSTRUCTIVE PULMON DISEASE W ACU 05/02/2019 EUSEBIO WARD MD, Ot J96.00 ACUTE RESPIRATORY FAILURE, UNSP W HYPOXI 05/02/2019 EUSEBIO WARD MD, Ot K21 .9 GASTRO-ESOPHAGEAL REFLUX DISEASE WITHOUT 05/02/2019 EUSEBIO WARD MD, Ot N17 .9 ACUTE KIDNEY FAILURE, UNSPECIFIED 05/02/2019 EUSEBIO WARD MD, Ot N18 .4 CHRONIC KIDNEY DISEASE, STAGE 4 (SEVERE) 05/02/2019 EUSEBIO WARD MD, Ot N30.01 ACUTE CYSTITIS WITH HEMATURIA 05/02/2019 EUSEBIO WARD MD, Ot Z68.41 BODY MASS INDEX (BMI) 40.0-44.9, ADULT 05/02/2019 EUSEBIO WARD MD, Ot 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 05/02/2019 EUSEBIO WARD MD, Ot Z87.891 PERSONAL HISTORY OF NICOTINE DEPENDENCE 05/02/2019 EUSEBIO WARD MD, Ot Z91.19 PATIENT'S NONCOMPLIANCE W [facility] MEDICAL TR 05/02/2019 EUSEBIO WARD MD, Ot A41 .9 SEPSIS, UNSPECIFIED ORGANISM 05/02/2019 EUSEBIO WARD MD, Ot B37 .0 CANDIDAL STOMATITIS 05/02/2019 EUSEBIO WARD MD, Ot B37.41 CANDIDAL CYSTITIS AND URETHRITIS 05/02/2019 ESUEBIO WARD MD, Ot D50 .9 IRON DEFICIENCY ANEMIA, UNSPECIFIED 05/02/2019 EUSEBIO WARD MD, Ot D63 .1 ANEMIA IN CHRONIC KIDNEY DISEASE 05/02/2019 EUSEBIO WARD MD, Ot E11 .9 TYPE 2 DIABETES MELLITUS WITHOUT COMPLIC 05/02/2019 EUSEBIO WARD MD, Ot E66.01 MORBID (SEVERE) OBESITY DUE TO EXCESS CA 05/02/2019 EUSEBIO WARD MD, Ot E78.00 PURE HYPERCHOLESTEROLEMIA, UNSPECIFIED 05/02/2019 EUSEBIO WARD MD, Ot F32 .9 MAJOR DEPRESSIVE DISORDER, SINGLE EPISOD 05/02/2019 EUSEBIO WARD MD Ot F41 .9 ANXIETY DISORDER, UNSPECIFIED 05/02/2019 EUSEBIO WARD MD Ot 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 05/02/2019 EUSEBIO WARD MD Ot I12 .9 HYPERTENSIVE CHRONIC KIDNEY DISEASE W ST 05/02/2019 EUSEBIO WARD MD Ot I13 .0 HYP HRT CHR KDNY DIS W HRT FAIL AND ST 05/02/2019 EUSEBIO WARD MD Ot I25.10 ATHSCL HEART DISEASE OF [place] CORONARY 05/02/2019 EUSEBIO WARD MD Ot I48 .0 PAROXYSMAL ATRIAL FIBRILLATION 05/02/2019 EUSEBIO WARD MD Ot I50 .9 HEART FAILURE, UNSPECIFIED 05/02/2019 EUSEBIO WARD MD Ot 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 05/02/2019 EUSEBIO WARD MD Ot I69.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 05/02/2019 EUSEBIO WARD MD Ot I69.391 DYSPHAGIA FOLLOWING CEREBRAL INFARCTION 05/02/2019 EUSEBIO WARD MD Ot I89 .0 LYMPHEDEMA, NOT ELSEWHERE CLASSIFIED 05/02/2019 EUSEBIO WARD MD Ot J18 .9 PNEUMONIA, UNSPECIFIED ORGANISM 05/02/2019 EUSEBIO WARD MD, Ot J44 .0 CHRONIC OBSTRUCTIVE PULMON DISEASE W ACU 05/02/2019 EUSEBIO WARD MD Ot J96.00 ACUTE RESPIRATORY FAILURE, UNSP W HYPOXI 05/02/2019 EUSEBIO WARD MD Ot K21 .9 GASTRO-ESOPHAGEAL REFLUX DISEASE WITHOUT 05/02/2019 EUSEBIO WARD MD Ot L03.115 CELLULITIS OF RIGHT LOWER LIMB 05/02/2019 EUSEBIO WARD MD Ot L12 .0 BULLOUS PEMPHIGOID 05/02/2019 EUSEBIO WARD MD Ot L97.219 NON-PRESSURE CHRONIC ULCER OF RIGHT CALF 05/02/2019 EUSEBIO WARD MD Ot N17 .9 ACUTE KIDNEY FAILURE, UNSPECIFIED 05/02/2019 EUSEBIO WARD MD Ot N18 .4 CHRONIC KIDNEY DISEASE, STAGE 4 (SEVERE) 05/02/2019 EUSEBIO WARD MD Ot N30.01 ACUTE CYSTITIS WITH HEMATURIA 05/02/2019 EUSEBIO WARD MD, Ot Z68.41 BODY MASS INDEX (BMI) 40.0-44.9, ADULT 05/02/2019 EUSEBIO WARD MD, Ot 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 05/02/2019 EUSEBIO WARD MD, Ot Z87.891 PERSONAL HISTORY OF NICOTINE DEPENDENCE 05/02/2019 EUSEBIO WARD MD, Ot Z91.19 PATIENT'S NONCOMPLIANCE W [facility] MEDICAL TR 05/04/2019 SAMINA HOWARD MD, Ot E11.22 TYPE 2 DIABETES MELLITUS W DIABETIC RN PLASTIC SURGERY 05/04/2019 SAMINA HOWARD MD, Ot F32.9 MAJOR DEPRESSIVE DISORDER, SINGLE EPISOD 05/04/2019 SAMINA HOWARD MD, Ot F41.9 ANXIETY DISORDER, UNSPECIFIED 05/04/2019 SAMINA HOWARD MD, Ot G47.30 SLEEP APNEA, UNSPECIFIED 05/04/2019 SAMINA HOWARD MD, Ot I48.91 UNSPECIFIED ATRIAL FIBRILLATION 05/04/2019 SAMINA HOWARD MD, Ot J18.9 PNEUMONIA, UNSPECIFIED ORGANISM 05/04/2019 SAMINA HOWARD MD, Ot J44.9 CHRONIC OBSTRUCTIVE PULMONARY DISEASE, U 05/04/2019 SAMINA HOWARD MD, Ot J96.01 ACUTE RESPIRATORY FAILURE WITH HYPOXIA 05/04/2019 SAMINA HOWARD MD, Ot K21.9 GASTRO-ESOPHAGEAL REFLUX DISEASE WITHOUT 05/04/2019 SAMINA HOWARD MD, Ot N18.4 CHRONIC KIDNEY DISEASE, STAGE 4 (SEVERE) 05/04/2019 SAMINA HOWARD MD, Ot N39.0 URINARY TRACT INFECTION, SITE NOT SPECIF 05/04/2019 SAMINA HOWARD MD, Ot R06.02 SHORTNESS OF BREATH 05/04/2019 SAMINA HOWARD MD, Ot T83.511A I/I REACT D/T INDWELLING URETHRAL CATHET 05/04/2019 SAMINA HOWARD MD, Ot 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 05/04/2019 SAMINA HOWARD MD, Ot Z79.4 [facility] (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 05/04/2019 SAMINA HOWARD MD, Ot Z79.82 [employer] 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 05/04/2019 SAMINA HOWARD MD, Ot Z82.49 FAMILY HX OF ISCHEM HEART DIS AND OTH DI 05/04/2019 SAMINA HOWARD MD, Ot Z86.73 PRSNL HX OF TIA (TIA), AND CEREB INFRC W 05/04/2019 SAMINA HOWARD MD, Ot Z87.891 PERSONAL HISTORY OF NICOTINE DEPENDENCE 05/04/2019 SAMINA HOWARD MD, Ot Z88.1 ALLERGY STATUS TO OTHER ANTIBIOTIC AGENT 05/04/2019 SAMINA HOWARD MD, Ot Z88.2 ALLERGY STATUS TO SULFONAMIDES STATUS 05/04/2019 SAMINA HOWARD MD, Ot Z99.81 DEPENDENCE ON SUPPLEMENTAL OXYGEN 05/08/2019 SAMINA HOWARD MD Ot E11.22 TYPE 2 DIABETES MELLITUS W DIABETIC RN PLASTIC SURGERY 05/08/2019 SAMINA HOWARD MD, Ot F32.9 MAJOR DEPRESSIVE DISORDER, SINGLE EPISOD 05/08/2019 SAMINA HOWARD MD, Ot F41.9 ANXIETY DISORDER, UNSPECIFIED 05/08/2019 SAMINA HOWARD MD, Ot G47.30 SLEEP APNEA, UNSPECIFIED 05/08/2019 SAMINA HOWARD MD Ot I48.91 UNSPECIFIED ATRIAL FIBRILLATION 05/08/2019 SAMINA HOWARD MD, Ot J18.9 PNEUMONIA, UNSPECIFIED ORGANISM 05/08/2019 SAMINA HOWARD MD, Ot J44.9 CHRONIC OBSTRUCTIVE PULMONARY DISEASE, U 05/08/2019 SAMINA HOWARD MD, Ot J96.01 ACUTE RESPIRATORY FAILURE WITH HYPOXIA 05/08/2019 SAMINA HOWARD MD, Ot K21.9 GASTRO-ESOPHAGEAL REFLUX DISEASE WITHOUT 05/08/2019 SAMINA HOWARD MD, Ot N18.4 CHRONIC KIDNEY DISEASE, STAGE 4 (SEVERE) 05/08/2019 SAMINA HOWARD MD, Ot N39.0 URINARY TRACT INFECTION, SITE NOT SPECIF 05/08/2019 LEE CHOWDHURY, SAMINA May Ot R06.02 SHORTNESS OF BREATH 05/08/2019 SAMINA HOWARD MD, Ot T83.511A I/I REACT D/T INDWELLING URETHRAL CATHET 05/08/2019 SAMINA HOWARD MD, Ot Z79.01 [facility] (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 ANTICOAGULANT 05/08/2019 SAMINA HOWARD MD, Ot 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 05/08/2019 SAMINA HOWARD MD, Ot Z79.82 [employer] 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 05/08/2019 SAMINA HOWARD MD, Ot Z82.49 FAMILY HX OF ISCHEM HEART DIS AND OTH DI 05/08/2019 SAMINA HOWARD MD, Ot Z86.73 PRSNL HX OF TIA (TIA), AND CEREB INFRC W 05/08/2019 SAMINA HOWARD MD, Ot Z87.891 PERSONAL HISTORY OF NICOTINE DEPENDENCE 05/08/2019 SAMINA HOWARD MD, Ot Z88.1 ALLERGY STATUS TO OTHER ANTIBIOTIC AGENT 05/08/2019 SAMINA HOWARD MD, Ot Z88.2 ALLERGY STATUS TO SULFONAMIDES STATUS 05/08/2019 SAMINA HOWARD MD, Ot Z99.81 DEPENDENCE ON SUPPLEMENTAL OXYGEN 06/04/2019 ALEJANDRA RUSH DO Ot A41.9 SEPSIS, UNSPECIFIED ORGANISM 06/04/2019 ALEJANDRA RUSH DO Ot D64.9 ANEMIA, UNSPECIFIED 06/04/2019 ALEJANDRA RUSH DO Ot E11.9 TYPE 2 DIABETES MELLITUS WITHOUT COMPLIC 06/04/2019 ALEJANDRA RUSH DO Ot E66.2 MORBID (SEVERE) OBESITY WITH ALVEOLAR HY 06/04/2019 ALEJANDRA RUSH DO Ot E78.00 PURE HYPERCHOLESTEROLEMIA, UNSPECIFIED 06/04/2019 ALEJANDRA RUSH DO Ot E86.0 DEHYDRATION 06/04/2019 ALEJANDRA RUSH DO Ot E87.2 ACIDOSIS 06/04/2019 ALEJANDRA RUSH DO Ot F32.9 MAJOR DEPRESSIVE DISORDER, SINGLE EPISOD 06/04/2019 ALEJANDRA RUSH DO Ot F41.9 ANXIETY DISORDER, UNSPECIFIED 06/04/2019 ALEJANDRA RUSH DO Ot I12.9 HYPERTENSIVE CHRONIC KIDNEY DISEASE W ST 06/04/2019 ALEJANDRA RUSH DO Ot I25.10 ATHSCL HEART DISEASE OF [place] CORONARY 06/04/2019 ALEJANDRA RUSH DO Ot I48.0 PAROXYSMAL ATRIAL FIBRILLATION 06/04/2019 LORI RUSH DOI Ot I69.32 1 DYSPHASIA FOLLOWING CEREBRAL INFARCTION 06/04/2019 LORI RUSH DOI Ot I69.35 4 HEMIPLGA FOLLOWING CEREBRAL INFRC AFFECT 06/04/2019 ALEJANDRA RUSH DO Ot I69.39 1 DYSPHAGIA FOLLOWING CEREBRAL INFARCTION 06/04/2019 ALEJANDRA RUSH DO Ot J18.1 LOBAR PNEUMONIA, UNSPECIFIED ORGANISM 06/04/2019 ALEJANDRA RUSH DO Ot J30.2 OTHER SEASONAL ALLERGIC RHINITIS 06/04/2019 LORI RUSH DOI Ot J44.0 CHRONIC OBSTRUCTIVE PULMON DISEASE W ACU 06/04/2019 LORI RUSH DOI Ot K21.9 GASTRO-ESOPHAGEAL REFLUX DISEASE WITHOUT 06/04/2019 LORI RUSH DOI Ot L89.31 0 PRESSURE ULCER OF RIGHT BUTTOCK, UNSTAGE 06/04/2019 LORI RUSH DOI Ot L89.32 2 PRESSURE ULCER OF LEFT BUTTOCK, STAGE 2 06/04/2019 ALEJANDRA RUSH DO Ot N18.4 CHRONIC KIDNEY DISEASE, STAGE 4 (SEVERE) 06/04/2019 LORI RUSH DOI Ot N32.81 OVERACTIVE BLADDER 06/04/2019 ALEJANDRA RUSH DO Ot Z68.42 BODY MASS INDEX (BMI) 45.0-49.9, ADULT 06/04/2019 ALEJANDRA RUSH DO Ot Z79.01 [facility] (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 ANTICOAGULANT 06/04/2019 ALEJANDRA RUSH DO Ot 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 06/04/2019 ALEJANDRA RUSH DO Ot Z79.82 [facility] (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 ASPIRIN 06/04/2019 ALEJANDRA RUSH DO Ot Z86.71 8 PERSONAL HISTORY OF OTHER VENOUS THROMBO 06/04/2019 ALEJANDRA RUSH DO Ot Z87.89 1 PERSONAL HISTORY OF NICOTINE DEPENDENCE 06/05/2019 ALEJANDRA RUSH DO Ot A41.9 SEPSIS, UNSPECIFIED ORGANISM 06/05/2019 ALEJANDRA RUSH DO Ot D64.9 ANEMIA, UNSPECIFIED 06/05/2019 LORI RUSH DOI Ot E11.9 TYPE 2 DIABETES MELLITUS WITHOUT COMPLIC 06/05/2019 LORI RUSH DOI Ot E66.2 MORBID (SEVERE) OBESITY WITH ALVEOLAR HY 06/05/2019 LORI RUSH DOI Ot E78.00 PURE HYPERCHOLESTEROLEMIA, UNSPECIFIED 06/05/2019 ADRI BOND ALEJANDRA Ot E86.0 DEHYDRATION 06/05/2019 LORI RUSH DOI Ot E87.2 ACIDOSIS 06/05/2019 LORI RUSH DOI Ot F32.9 MAJOR DEPRESSIVE DISORDER, SINGLE EPISOD 06/05/2019 LORI RUSH DOI Ot F41.9 ANXIETY DISORDER, UNSPECIFIED 06/05/2019 LORI RUSH DOI Ot I12.9 HYPERTENSIVE CHRONIC KIDNEY DISEASE W ST 06/05/2019 LORI RUSH DOI Ot I13.0 HYP HRT CHR [place] DIS W HRT FAIL AND ST 06/05/2019 ADRI BOND ALEJANDRA Ot I25.10 ATHSCL HEART DISEASE OF [place] CORONARY 06/05/2019 ADRI BOND ALEJANDRA Ot I48.0 PAROXYSMAL ATRIAL FIBRILLATION 06/05/2019 ADRI BOND ALEJANDRA Ot I50.9 HEART FAILURE, UNSPECIFIED 06/05/2019 LORI RUSH DOI Ot I69.32 1 DYSPHASIA FOLLOWING CEREBRAL INFARCTION 06/05/2019 LORI RUSH DOI Ot I69.35 4 HEMIPLGA FOLLOWING CEREBRAL INFRC AFFECT 06/05/2019 LORI RUSH DOI Ot I69.39 1 DYSPHAGIA FOLLOWING CEREBRAL INFARCTION 06/05/2019 LORI RUSH DOI Ot J18.1 LOBAR PNEUMONIA, UNSPECIFIED ORGANISM 06/05/2019 LORI RUSH DOI Ot J30.2 OTHER SEASONAL ALLERGIC RHINITIS 06/05/2019 LORI RUSH DOI Ot J44.0 CHRONIC OBSTRUCTIVE PULMON DISEASE W ACU 06/05/2019 LORI RUSH DOI Ot J44.1 CHRONIC OBSTRUCTIVE PULMONARY DISEASE W 06/05/2019 LORI RUSH DOI Ot J96.01 ACUTE RESPIRATORY FAILURE WITH HYPOXIA 06/05/2019 ADRI BOND ALEJANDRA Ot K21.9 GASTRO-ESOPHAGEAL REFLUX DISEASE WITHOUT 06/05/2019 ADRI BOND ALEJANDRA Ot L89.31 0 PRESSURE ULCER OF RIGHT BUTTOCK, UNSTAGE 06/05/2019 LORI RUSH DOI Ot L89.32 2 PRESSURE ULCER OF LEFT BUTTOCK, STAGE 2 06/05/2019 ADRI BOND ALEJANDRA Ot N17.9 ACUTE KIDNEY FAILURE, UNSPECIFIED 06/05/2019 ADRI BOND ALEJANDRA Ot N18.4 CHRONIC KIDNEY DISEASE, STAGE 4 (SEVERE) 06/05/2019 ADRI BOND ALEJANDRA Ot N32.81 OVERACTIVE BLADDER 06/05/2019 ADRI BOND ALEJANDRA Ot Z68.42 BODY MASS INDEX (BMI) 45.0-49.9, ADULT 06/05/2019 ADRI BOND ALEJANDRA Ot Z79.01 [facility] (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 ANTICOAGULANT 06/05/2019 ADRI BOND ALEJANDRA Ot Z79.4 [facility] (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 06/05/2019 ADRI BOND ALEJANDRA Ot Z79.82 [facility] (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 ASPIRIN 06/05/2019 ADRI BOND ALEJANDRA Ot Z86.71 8 PERSONAL HISTORY OF OTHER VENOUS THROMBO 06/05/2019 ADRI BOND ALEJANDRA Ot Z87.89 1 PERSONAL HISTORY OF NICOTINE DEPENDENCE 06/07/2019 ADRI BOND ALEJANDRA Ot A41.9 SEPSIS, UNSPECIFIED ORGANISM 06/07/2019 ADRI BOND ALEJANDRA Ot D64.9 ANEMIA, UNSPECIFIED 06/07/2019 ADRI BOND ALEJANDRA Ot E11.9 TYPE 2 DIABETES MELLITUS WITHOUT COMPLIC 06/07/2019 ADRI BOND ALEJANDRA Ot E66.2 MORBID (SEVERE) OBESITY WITH ALVEOLAR HY 06/07/2019 ADRI BOND ALEJANDRA Ot E78.00 PURE HYPERCHOLESTEROLEMIA, UNSPECIFIED 06/07/2019 ADRI BOND ALEJANDRA Ot E86.0 DEHYDRATION 06/07/2019 DARI BOND ALEJANDRA Ot E87.2 ACIDOSIS 06/07/2019 ADRI BOND ALEJANDRA Ot F32.9 MAJOR DEPRESSIVE DISORDER, SINGLE EPISOD 06/07/2019 ADRI BOND ALEJANDRA Ot F41.9 ANXIETY DISORDER, UNSPECIFIED 06/07/2019 ADRI BOND ALEJANDRA Ot I12.9 HYPERTENSIVE CHRONIC KIDNEY DISEASE W ST 06/07/2019 ADRI BOND ALEJANDRA Ot I25.10 ATHSCL HEART DISEASE OF [place] CORONARY 06/07/2019 ADRI BOND ALEJANDRA Ot I48.0 PAROXYSMAL ATRIAL FIBRILLATION 06/07/2019 ADRI BOND ALEJANDRA Ot I69.32 1 DYSPHASIA FOLLOWING CEREBRAL INFARCTION 06/07/2019 ALEJANDRA RUSH DO Ot I69.35 4 HEMIPLGA FOLLOWING CEREBRAL INFRC AFFECT 06/07/2019 ALEJANDRA RUSH DO Ot I69.39 1 DYSPHAGIA FOLLOWING CEREBRAL INFARCTION 06/07/2019 ALEJANDRA RUSH DO Ot J18.1 LOBAR PNEUMONIA, UNSPECIFIED ORGANISM 06/07/2019 ALEJANDRA RUSH DO Ot J30.2 OTHER SEASONAL ALLERGIC RHINITIS 06/07/2019 ALEJANDRA RUSH DO Ot J44.0 CHRONIC OBSTRUCTIVE PULMON DISEASE W ACU 06/07/2019 ALEJANDRA RUSH DO Ot K21.9 GASTRO-ESOPHAGEAL REFLUX DISEASE WITHOUT 06/07/2019 ALEJANDRA RUSH DO Ot L89.31 0 PRESSURE ULCER OF RIGHT BUTTOCK, UNSTAGE 06/07/2019 ALEJANDRA RUSH DO Ot L89.32 2 PRESSURE ULCER OF LEFT BUTTOCK, STAGE 2 06/07/2019 ALEJANDRA RUSH DO Ot N18.4 CHRONIC KIDNEY DISEASE, STAGE 4 (SEVERE) 06/07/2019 ALEJANDRA RUSH DO Ot N32.81 OVERACTIVE BLADDER 06/07/2019 ALEJANDRA RUSH DO Ot Z68.42 BODY MASS INDEX (BMI) 45.0-49.9, ADULT 06/07/2019 ALEJANDRA RUSH DO Ot 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 06/07/2019 ALEJANDRA RUSH DO Ot 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 06/07/2019 ALEJANDRA RUSH DO Ot Z79.82 [facility] (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 ASPIRIN 06/07/2019 ALEJANDRA RUSH DO Ot Z86.71 8 PERSONAL HISTORY OF OTHER VENOUS THROMBO 06/07/2019 ALEJANDRA RUSH DO Ot Z87.89 1 PERSONAL HISTORY OF NICOTINE DEPENDENCE 06/30/2019 DONYA YUAN DO Ot N18.3 CHRONIC KIDNEY DISEASE, STAGE 3 (MODERAT 07/05/2019 BERTHA CASTELLON DO Ot N84.0 POLYP OF CORPUS UTERI 07/05/2019 BERTHA CASTELLON DO Ot Z01.8 12 ENCOUNTER FOR PREPROCEDURAL LABORATORY E 07/10/2019 BERTHA CASTELLON DO Ot N84.0 POLYP OF CORPUS UTERI 07/10/2019 BERTHA CASTELLON DO Ot Z01.8 12 ENCOUNTER FOR PREPROCEDURAL LABORATORY E 07/11/2019 BERTHA CASTELLON DO Ot N84.0 POLYP OF CORPUS UTERI 07/11/2019 BERTHA CASTELLON DO Ot N95.0 POSTMENOPAUSAL BLEEDING 07/14/2019 BERTHA CASTELLON DO Ot E11.9 TYPE 2 DIABETES MELLITUS WITHOUT COMPLIC 07/14/2019 BERTHA CASTELLON DO Ot E66.0 1 MORBID (SEVERE) OBESITY DUE TO EXCESS CA 07/14/2019 BERTHA CASTELLON DO Ot E78.5 HYPERLIPIDEMIA, UNSPECIFIED 07/14/2019 BERTHA CASTELLON DO Ot F32.9 MAJOR DEPRESSIVE DISORDER, SINGLE EPISOD 07/14/2019 BERTHA CASTELLON DO Ot G47.3 3 OBSTRUCTIVE SLEEP APNEA (ADULT) (PEDIATR 07/14/2019 BERTHA CASTELLON DO Ot I11.9 HYPERTENSIVE HEART DISEASE WITHOUT HEART 07/14/2019 BERTHA CASTELLON DO Ot I25.1 0 ATHSCL HEART DISEASE OF [place] CORONARY 07/14/2019 BERTHA CASTELLON DO Ot I48.9 1 UNSPECIFIED ATRIAL FIBRILLATION 07/14/2019 BERTHA CASTELLON DO Ot I65.2 3 OCCLUSION AND STENOSIS OF [place] 07/14/2019 BERTHA CASTELLON DO Ot I69.3 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 07/14/2019 BERTHA CASTELLON DO Ot J44.9 CHRONIC OBSTRUCTIVE PULMONARY DISEASE, U 07/14/2019 BERTHA CASTELLON DO Ot N84.0 POLYP OF [place]PUS UTERI 07/14/2019 BERTHA CASTELLON DO Ot R82.9 98 OTHER ABNORMAL FINDINGS IN URINE 07/14/2019 BERTHA CASTELLON DO Ot Z68.4 1 BODY MASS INDEX (BMI) 40.0-44.9, ADULT 07/14/2019 BERTHA CASTELLON DO Ot Z79.0 1 [facility] (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 ANTICOAGULANT 07/14/2019 BERTHA CASTELLON DO Ot 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 07/14/2019 BERTHA CASTELLON DO Ot Z79.8 2 [employer]UCK 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 07/14/2019 BERTHA CASTELLON DO Ot Z87.4 40 PERSONAL HISTORY OF URINARY (TRACT) INFE 07/14/2019 BERTHA CASTELLON DO Ot Z87.8 91 PERSONAL HISTORY OF NICOTINE DEPENDENCE 07/14/2019 BERTHA CASTELLON DO Ot Z88.2 ALLERGY STATUS TO SULFONAMIDES STATUS 07/18/2019 LISSY DO DONYA Shankar Ot N18.3 CHRONIC KIDNEY DISEASE, STAGE 3 (MODERAT 08/01/2019 BERTHA CASTELLON DO Ot E11.9 TYPE 2 DIABETES MELLITUS WITHOUT COMPLIC 08/01/2019 BERTHA CASTELLON DO Ot E66.0 1 MORBID (SEVERE) OBESITY DUE TO EXCESS CA 08/01/2019 BERTHA CASTELLON DO Ot E78.5 HYPERLIPIDEMIA, UNSPECIFIED 08/01/2019 BERTHA CASTELLON DO Ot F32.9 MAJOR DEPRESSIVE DISORDER, SINGLE EPISOD 08/01/2019 BERTHA CASTELLON DO Ot G47.3 3 OBSTRUCTIVE SLEEP APNEA (ADULT) (PEDIATR 08/01/2019 BERTHA CASTELLON DO Ot I11.9 HYPERTENSIVE HEART DISEASE WITHOUT HEART 08/01/2019 BERTHA CASTELLON DO Ot I25.1 0 ATHSCL HEART DISEASE OF [place] CORONARY 08/01/2019 BERTHA CASTELLON DO Ot I48.9 1 UNSPECIFIED ATRIAL FIBRILLATION 08/01/2019 BERTHA CASTELLON DO Ot I65.2 3 OCCLUSION AND STENOSIS OF [place] 08/01/2019 BERTHA CASTELLON DO Ot I69.3 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 08/01/2019 BERTHA CASTELLON DO Ot J44.9 CHRONIC OBSTRUCTIVE PULMONARY DISEASE, U 08/01/2019 BERTHA CASTELLON DO Ot N84.0 POLYP OF [place]I 08/01/2019 BERTHA CASTELLON DO Ot R82.9 98 OTHER ABNORMAL FINDINGS IN URINE 08/01/2019 BERTHA CASTELLON DO Ot Z68.4 1 BODY MASS INDEX (BMI) 40.0-44.9, ADULT 08/01/2019 BERTHA CASTELLON DO Ot Z79.0 1 [employer]UCK SALES 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 (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 ANTICOAGULANT 08/01/2019 BERTHA CASTELLON DO Ot Z79.4 [facility] (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 08/01/2019 BERTHA CASTELLON DO Ot Z79.8 2 [employer]UCK 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 08/01/2019 BERTHA CASTELLON DO Ot Z87.4 40 PERSONAL HISTORY OF URINARY (TRACT) INFE 08/01/2019 BERTHA CASTELLON DO Ot Z87.8 91 PERSONAL HISTORY OF NICOTINE DEPENDENCE 08/01/2019 BERTAH CASTELLON DO Ot Z88.2 ALLERGY STATUS TO SULFONAMIDES STATUS 08/02/2019 BERTHA CASTELLON DO Ot E11.9 TYPE 2 DIABETES MELLITUS WITHOUT COMPLIC 08/02/2019 BERTHA CASTELLON DO Ot E66.0 1 MORBID (SEVERE) OBESITY DUE TO EXCESS CA 08/02/2019 BERTHA CASTELLON DO Ot E78.5 HYPERLIPIDEMIA, UNSPECIFIED 08/02/2019 BERTHA CASTELLON DO Ot F32.9 MAJOR DEPRESSIVE DISORDER, SINGLE EPISOD 08/02/2019 BERTHA CASTELLON DO Ot G47.3 3 OBSTRUCTIVE SLEEP APNEA (ADULT) (PEDIATR 08/02/2019 BERTHA CASTELLON DO Ot I11.9 HYPERTENSIVE HEART DISEASE WITHOUT HEART 08/02/2019 BERTHA CASTELLON DO Ot I25.1 0 ATHSCL HEART DISEASE OF [place] CORONARY 08/02/2019 BERTHA CASTELLON DO Ot I48.9 1 UNSPECIFIED ATRIAL FIBRILLATION 08/02/2019 BERTHA CASTELLON DO Ot I65.2 3 OCCLUSION AND STENOSIS OF [place] 08/02/2019 BERTHA CASTELLON DO Ot I69.3 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 08/02/2019 BERTHA CASTELLON DO Ot J44.9 CHRONIC OBSTRUCTIVE PULMONARY DISEASE, U 08/02/2019 BERTHA CASTELLON DO Ot N84.0 POLYP OF [place]PUS [place]TERI 08/02/2019 BERTHA CASTELLON DO Ot R82.9 98 OTHER ABNORMAL FINDINGS IN URINE 08/02/2019 BERTHA CASTELLON DO Ot Z68.4 1 BODY MASS INDEX (BMI) 40.0-44.9, ADULT 08/02/2019 BERTHA CASTELLON DO Ot Z79.0 1 [facility] (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 ANTICOAGULANT 08/02/2019 BERTHA CASTELLON DO Ot Z79.4 [facility] (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 08/02/2019 BERTHA CASTELLON DO Ot Z79.8 2 [employer]UCK 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 08/02/2019 BERTHA CASTELLON DO Ot Z87.4 40 PERSONAL HISTORY OF URINARY (TRACT) INFE 08/02/2019 BERTHA CASTELLON DO Ot Z87.8 91 PERSONAL HISTORY OF NICOTINE DEPENDENCE 08/02/2019 BERTHA CASTELLON DO Ot Z88.2 ALLERGY STATUS TO SULFONAMIDES STATUS 08/02/2019 BERTHA CASTELLON DO Ot E11.9 TYPE 2 DIABETES MELLITUS WITHOUT COMPLIC 08/02/2019 BERTHA CASTELLON DO Ot E66.0 1 MORBID (SEVERE) OBESITY DUE TO EXCESS CA 08/02/2019 BERTHA CASTELLON DO Ot E78.5 HYPERLIPIDEMIA, UNSPECIFIED 08/02/2019 BERTHA CASTELLON DO Ot F32.9 MAJOR DEPRESSIVE DISORDER, SINGLE EPISOD 08/02/2019 BERTHA CASTELLON DO Ot G47.3 3 OBSTRUCTIVE SLEEP APNEA (ADULT) (PEDIATR 08/02/2019 BERTHA CASTELLON DO Ot I11.9 HYPERTENSIVE HEART DISEASE WITHOUT HEART 08/02/2019 BERTHA CASTELLON DO Ot I25.1 0 ATHSCL HEART DISEASE OF [place] CORONARY 08/02/2019 BERTHA CASTELLON DO Ot I48.9 1 UNSPECIFIED ATRIAL FIBRILLATION 08/02/2019 BERTHA CASTELLON DO Ot I65.2 3 OCCLUSION AND STENOSIS OF [place] 08/02/2019 BERTHA CASTELLON DO Ot I69.3 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 08/02/2019 BERTHA CASTELLON DO Ot J44.9 CHRONIC OBSTRUCTIVE PULMONARY DISEASE, U 08/02/2019 BERTHA CASTELLON DO Ot N84.0 POLYP OF CORPUS UTERI 08/02/2019 BERTHA CASTELLON DO Ot R82.9 98 OTHER ABNORMAL FINDINGS IN URINE 08/02/2019 BERTHA CASTELLON DO Ot Z68.4 1 BODY MASS INDEX (BMI) 40.0-44.9, ADULT 08/02/2019 BERTHA CASTELLON DO Ot Z79.0 1 [employer]UCK SALES 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 (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 ANTICOAGULANT 08/02/2019 BERTHA CASTELLON DO Ot Z79.4 [facility] (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 08/02/2019 BERTHA CASTELLON DO Ot Z79.8 2 [facility] (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 ASPIRIN 08/02/2019 BERTHA CASTELLON DO Ot Z87.4 40 PERSONAL HISTORY OF URINARY (TRACT) INFE 08/02/2019 BERTHA CASTELLON DO, Ot Z87.8 91 PERSONAL HISTORY OF NICOTINE DEPENDENCE 08/02/2019 BERTHA CASTELLON DO, Ot Z88.2 ALLERGY STATUS TO SULFONAMIDES STATUS 08/03/2019 EUSEBIO WARD MD, Ot D50 .0 IRON DEFICIENCY ANEMIA SECONDARY TO BLOO 08/03/2019 EUSEBIO WARD MD, Ot E11 .9 TYPE 2 DIABETES MELLITUS WITHOUT COMPLIC 08/03/2019 EUSEBIO WARD MD, Ot E66 .2 MORBID (SEVERE) OBESITY WITH ALVEOLAR HY 08/03/2019 EUSEBIO WARD MD, Ot E78.00 PURE HYPERCHOLESTEROLEMIA, UNSPECIFIED 08/03/2019 EUSEBIO WARD MD, Ot F32 .9 MAJOR DEPRESSIVE DISORDER, SINGLE EPISOD 08/03/2019 EUSEBIO WARD MD, Ot F41 .9 ANXIETY DISORDER, UNSPECIFIED 08/03/2019 EUSEBIO WARD MD, Ot I13 .0 HYP HRT CHR [place] DIS W HRT FAIL AND ST 08/03/2019 EUSEBIO WARD MD, Ot I25.10 ATHSCL HEART DISEASE OF [place] CORONARY 08/03/2019 EUSEBIO WARD MD Ot I48 .0 PAROXYSMAL ATRIAL FIBRILLATION 08/03/2019 EUSEBIO WARD MD, Ot I50 .9 HEART FAILURE, UNSPECIFIED 08/03/2019 EUSEBIO WARD MD Ot 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 08/03/2019 EUSEBIO WARD MD Ot I69.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 08/03/2019 EUSEBIO WARD MD Ot I69.391 DYSPHAGIA FOLLOWING CEREBRAL INFARCTION 08/03/2019 EUSEBIO WARD MD, Ot J18 .9 PNEUMONIA, UNSPECIFIED ORGANISM 08/03/2019 EUSEBIO WARD MD, Ot J44 .0 CHR OBSTRUCTIVE PULMON DISEASE WITH (ACU 08/03/2019 EUSEBIO WARD MD, Ot J90 PLEURAL EFFUSION, NOT ELSEWHERE CLASSIFI 08/03/2019 EUSEBIO WARD MD Ot J96.00 ACUTE RESPIRATORY FAILURE, UNSP W HYPOXI 08/03/2019 EUSEBIO WARD MD Ot K21 .9 GASTRO-ESOPHAGEAL REFLUX DISEASE WITHOUT 08/03/2019 EUSEBIO WARD MD Ot K59.09 OTHER CONSTIPATION 08/03/2019 EUSEBIO WARD MD, Ot K64 .9 UNSPECIFIED HEMORRHOIDS 08/03/2019 EUSEBIO WARD MD, Ot N17 .9 ACUTE KIDNEY FAILURE, UNSPECIFIED 08/03/2019 EUSEBIO WARD MD, Ot N18 .4 CHRONIC KIDNEY DISEASE, STAGE 4 (SEVERE) 08/03/2019 EUSEBIO WARD MD, Ot N32.81 OVERACTIVE BLADDER 08/03/2019 EUSEBIO WARD MD, Ot R19 .5 OTHER FECAL ABNORMALITIES 08/03/2019 EUESBIO WARD MD, Ot Z68.41 BODY MASS INDEX (BMI) 40.0-44.9, ADULT 08/03/2019 EUSEBIO WARD MD, Ot Z79.01 [facility] (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 ANTICOAGULANT 08/03/2019 EUSEBIO WARD MD, Ot Z79 .4 [facility] (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 08/03/2019 EUSEBIO WARD MD, Ot Z79.82 [facility] (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 ASPIRIN 08/03/2019 EUSEBIO WARD MD, Ot Z86.718 PERSONAL HISTORY OF OTHER VENOUS THROMBO 08/03/2019 EUSEBIO WARD MD, Ot Z87.891 PERSONAL HISTORY OF NICOTINE DEPENDENCE 08/03/2019 EUSEBIO WARD MD, Ot D50 .0 IRON DEFICIENCY ANEMIA SECONDARY TO BLOO 08/03/2019 EUSEBIO WARD MD, Ot E11 .9 TYPE 2 DIABETES MELLITUS WITHOUT COMPLIC 08/03/2019 EUSEBIO WARD MD, Ot E66 .2 MORBID (SEVERE) OBESITY WITH ALVEOLAR HY 08/03/2019 EUSEBIO WARD MD, Ot E78.00 PURE HYPERCHOLESTEROLEMIA, UNSPECIFIED 08/03/2019 EUSEBIO WARD MD, Ot F32 .9 MAJOR DEPRESSIVE DISORDER, SINGLE EPISOD 08/03/2019 EUSEBIO WARD MD, Ot F41 .9 ANXIETY DISORDER, UNSPECIFIED 08/03/2019 EUSEBIO WARD MD, Ot I13 .0 HYP HRT CHR [place] DIS W HRT FAIL AND ST 08/03/2019 EUSEBIO WARD MD, Ot I25.10 ATHSCL HEART DISEASE OF [place] CORONARY 08/03/2019 EUSEBIO WARD MD, Ot I48 .0 PAROXYSMAL ATRIAL FIBRILLATION 08/03/2019 EUSEBIO WARD MD, Ot I50.33 ACUTE ON CHRONIC DIASTOLIC (CONGESTIVE) 08/03/2019 EUSEBIO WARD MD, Ot I50 .9 HEART FAILURE, UNSPECIFIED 08/03/2019 EUSEBIO WARD MD, Ot 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 08/03/2019 EUSEBIO WARD MD Ot I69.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 08/03/2019 EUSEBIO WARD MD, Ot I69.391 DYSPHAGIA FOLLOWING CEREBRAL INFARCTION 08/03/2019 EUSEBIO WARD MD, Ot J18 .9 PNEUMONIA, UNSPECIFIED ORGANISM 08/03/2019 EUSEBIO WARD MD, Ot J44 .0 CHR OBSTRUCTIVE PULMON DISEASE WITH (ACU 08/03/2019 EUSEBIO WARD MD, Ot J90 PLEURAL EFFUSION, NOT ELSEWHERE CLASSIFI 08/03/2019 EUSEBIO WARD MD, Ot J96.00 ACUTE RESPIRATORY FAILURE, UNSP W HYPOXI 08/03/2019 EUSEBIO WARD MD Ot K21 .9 GASTRO-ESOPHAGEAL REFLUX DISEASE WITHOUT 08/03/2019 EUSEBIO WARD MD, Ot K29.70 GASTRITIS, UNSPECIFIED, WITHOUT BLEEDING 08/03/2019 EUSEBIO WARD MD Ot K31 .7 POLYP OF STOMACH AND DUODENUM 08/03/2019 EUSEBIO WARD MD, Ot K59.09 OTHER CONSTIPATION 08/03/2019 EUSEBIO WARD MD, Ot K63 .5 POLYP OF COLON 08/03/2019 EUSEBIO WARD MD, Ot K64 .9 UNSPECIFIED HEMORRHOIDS 08/03/2019 EUSEBIO WARD MD, Ot N17 .9 ACUTE KIDNEY FAILURE, UNSPECIFIED 08/03/2019 EUSEBIO WARD MD, Ot N18 .4 CHRONIC KIDNEY DISEASE, STAGE 4 (SEVERE) 08/03/2019 EUSEBIO WARD MD Ot N32.81 OVERACTIVE BLADDER 08/03/2019 EUSEBIO WARD MD Ot R19 .5 OTHER FECAL ABNORMALITIES 08/03/2019 EUSEBIO WARD MD Ot R59 .0 LOCALIZED ENLARGED LYMPH NODES 08/03/2019 EUSEBIO WARD MD Ot Z68.41 BODY MASS INDEX (BMI) 40.0-44.9, ADULT 08/03/2019 EUSEBIO WARD MD, Ot Z79.01 [facility] (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 ANTICOAGULANT 08/03/2019 EUSEBIO WARD MD Ot 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 08/03/2019 EUSEBIO WARD MD Ot Z79.82 [facility] (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 ASPIRIN 08/03/2019 EUSEBIO WARD MD, Ot Z86.718 PERSONAL HISTORY OF OTHER VENOUS THROMBO 08/03/2019 EUSEBIO WARD MD, Ot Z87.891 PERSONAL HISTORY OF NICOTINE DEPENDENCE 08/03/2019 EUSEBIO WARD MD, Ot Z99.81 DEPENDENCE ON SUPPLEMENTAL OXYGEN 08/04/2019 BERTHA CASTELLON DO Ot E11.9 TYPE 2 DIABETES MELLITUS WITHOUT COMPLIC 08/04/2019 BERTHA CASTELLON DO Ot E66.0 1 MORBID (SEVERE) OBESITY DUE TO EXCESS CA 08/04/2019 BERTHA CASTELLON DO Ot E78.5 HYPERLIPIDEMIA, UNSPECIFIED 08/04/2019 BERTHA CASTELLON DO Ot F32.9 MAJOR DEPRESSIVE DISORDER, SINGLE EPISOD 08/04/2019 BERTHA CASTELLON DO Ot G47.3 3 OBSTRUCTIVE SLEEP APNEA (ADULT) (PEDIATR 08/04/2019 BERTHA CASTELLON DO Ot I11.9 HYPERTENSIVE HEART DISEASE WITHOUT HEART 08/04/2019 BERTHA CASTELLON DO Ot I25.1 0 ATHSCL HEART DISEASE OF [place] CORONARY 08/04/2019 BERTHA CASTELLON DO Ot I48.9 1 UNSPECIFIED ATRIAL FIBRILLATION 08/04/2019 BERTHA CASTELLON DO Ot I65.2 3 OCCLUSION AND STENOSIS OF BILATERAL [place] 08/04/2019 BERTHA CASTELLON DO Ot I69.3 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 08/04/2019 BERTHA CASTELLON DO Ot J44.9 CHRONIC OBSTRUCTIVE PULMONARY DISEASE, U 08/04/2019 BERTHA CASTELLON DO Ot N84.0 POLYP OF CORPUS UTERI 08/04/2019 BERTHA CASTELLON DO Ot R82.9 98 OTHER ABNORMAL FINDINGS IN URINE 08/04/2019 BERTHA CASTELLON DO Ot Z68.4 1 BODY MASS INDEX (BMI) 40.0-44.9, ADULT 08/04/2019 BERTHA CASTELLON DO Ot Z79.0 1 [employer] SAL[employer] 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 (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 ANTICOAGULANT 08/04/2019 BERTHA CASTELLON DO Ot Z79.4 [facility] (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 08/04/2019 BERTHA CASTELLON DO Ot Z79.8 2 [facility] (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 ASPIRIN 08/04/2019 CASTELLONBERTHA Varma DO Ot Z87.4 40 PERSONAL HISTORY OF URINARY (TRACT) INFE 08/04/2019 BERTHA CASTELLON DO Ot Z87.8 91 PERSONAL HISTORY OF NICOTINE DEPENDENCE 08/04/2019 BERTHA CASTELLON DO Ot Z88.2 ALLERGY STATUS TO SULFONAMIDES STATUS 08/15/2019 ALEJANDRA RUSH DO Ot A41.9 SEPSIS, UNSPECIFIED ORGANISM 08/15/2019 ALEJANDRA RUSH DO Ot B96.1 KLEBS[place]LLA PNEUMONIAE THE CAUSE OF DI 08/15/2019 ALEJANDRA RUSH DO Ot D64.9 ANEMIA, UNSPECIFIED 08/15/2019 ALEJANDRA RUSH DO Ot E11.40 TYPE 2 DIABETES MELLITUS WITH DIABETIC N 08/15/2019 ALEJANDRA RUSH DO Ot E66.01 MORBID (SEVERE) OBESITY DUE TO EXCESS CA 08/15/2019 ALEJANDRA RUSH DO Ot E78.00 PURE HYPERCHOLESTEROLEMIA, UNSPECIFIED 08/15/2019 ALEJANDRA RUSH DO Ot E78.5 HYPERLIPIDEMIA, UNSPECIFIED 08/15/2019 ALEJANDRA RUSH DO Ot E87.6 HYPOKALEMIA 08/15/2019 ALEJANDRA RUSH DO Ot F32.9 MAJOR DEPRESSIVE DISORDER, SINGLE EPISOD 08/15/2019 ALEJANDRA RUSH DO Ot F41.9 ANXIETY DISORDER, UNSPECIFIED 08/15/2019 ALEJANDRA RUSH DO Ot G47.33 OBSTRUCTIVE SLEEP APNEA (ADULT) (PEDIATR 08/15/2019 ALEJANDRA RUSH DO Ot I13.0 HYP HRT CHR [facility] DIS W HRT FAIL AND ST 08/15/2019 ALEJANDRA RUSH DO Ot I25.10 ATHSCL HEART DISEASE OF [place] CORONARY 08/15/2019 ALEJANDRA RUSH DO Ot I48.0 PAROXYSMAL ATRIAL FIBRILLATION 08/15/2019 ALEJANDRA RUSH DO Ot I50.9 HEART FAILURE, UNSPECIFIED 08/15/2019 ALEJANDRA RUSH DO Ot I69.35 4 HEMIPLGA FOLLOWING CEREBRAL INFRC AFFECT 08/15/2019 RUSH DO, ALEJANDRA Ot I69.39 1 DYSPHAGIA FOLLOWING CEREBRAL INFARCTION 08/15/2019 ADRI BNOD ALEJANDRA Ot I89.0 LYMPHEDEMA, NOT ELSEWHERE CLASSIFIED 08/15/2019 ADRI BOND ALEJANDRA Ot K21.9 GASTRO-ESOPHAGEAL REFLUX DISEASE WITHOUT 08/15/2019 ADRI BOND ALEJANDRA Ot K59.09 OTHER CONSTIPATION 08/15/2019 ADRI BOND ALEJANDRA Ot K92.2 GASTROINTESTINAL HEMORRHAGE, UNSPECIFIED 08/15/2019 ADRI BOND ALEJANDRA Ot L03.11 6 CELLULITIS OF LEFT LOWER LIMB 08/15/2019 ADRI BOND ALEJANDRA Ot L12.0 BULLOUS PEMPHIGOID 08/15/2019 ADRI BOND ALEJANDRA Ot N18.4 CHRONIC KIDNEY DISEASE, STAGE 4 (SEVERE) 08/15/2019 ADRI BOND ALEJADNRA Ot N39.0 URINARY TRACT INFECTION, SITE NOT SPECIF 08/15/2019 ADRI BOND ALEJANDRA Ot Z68.41 BODY MASS INDEX (BMI) 40.0-44.9, ADULT 08/15/2019 ADRI BOND ALEJANDRA Ot Z74.01 BED CONFINEMENT STATUS 08/15/2019 ADRI BOND ALEJANDRA Ot 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 08/15/2019 ADRI BOND ALEJANDRA Ot Z86.71 8 PERSONAL HISTORY OF OTHER VENOUS THROMBO 08/15/2019 ALEJANDRA RUSH DO Ot Z88.2 ALLERGY STATUS TO SULFONAMIDES STATUS Procedures Code Description Performed By Per formed On [id number] RE STORATION OF CARDIAC RHYTHM, SINGLE 04/24/[id number] MICHELE OF RIGHT PLEURAL CAVITY, PERC A 07/31/[id number] MICHELE OF LEFT PLEURAL CAVITY, PERC AP 07/31/2019 [id number] EX CISION OF STOMACH, ENDO, DIAGN 08/02/2019 [id number] EX CISION OF STOMACH, PYLORUS, ENDO, DIAG 08/02/2019 [id number] EX CISION OF ASCENDING COLON, ENDO, DIAGN 08/02/2019 [id number] EX CISION OF TRANSVERSE COLON, ENDO, DIAG 08/02/2019 [id number] EX CISION OF SIGMOID COLON, ENDO, DIAGN 08/02/2019 Results Test Result Range Methicillin resistant Staphylococcus aur eus (MRSA) screening culture - 04/09/16 13:35 Methicillin resistant Staphylococcus aureus (MRSA) scr eening culture NEG NRG Capillary blood glucose measurement by g lucometer (mass/volume) - 04/16/16 07:55 Capillary blood glucose measurement by glucometer (mas s/volume) 213 mg/dL 70-110 Bacteria identification in isolate by an aerobe culture - 04/16/16 09:40 QUANTITY OF GROWTH Scant Growth NRG Bacteria identification in isolate by anaerobe culture [id number] NRG Gram stain microscopy - 04/16/16 09:40 GRAM STAIN RESULT FEW WBC'S, NO BACTERIA OBSERVED NRG Bacteria identification in wound by cult ure - 04/16/16 09:40 Bacteria identification in wound by culture [id number] NRG FREE TEXT EXTERNAL SENSITIVITY REPORTED 04/18/16 11: 20 NRG QUANTITY OF GROWTH Scant Growth NRG Bacterial susceptibility panel - 6 09:40 Gentamicin susceptibility test by minimum inhibitory c oncentration <= NRG Tobramycin susceptibility test by minimum inhibitory c oncentration <= NRG Piperacillin/tazobactam susceptibility t est by minimum inhibitory concentration 16 NRG Ciprofloxacin susceptibility test by minimum inhibitor y concentration <= NRG Meropenem susceptibility test by minimum inhibitory co ncentration 1 NRG Cefepime susceptibility test by minimum inhibitory con centration <= NRG Bacterial susceptibility panel - 6 09:40 Oxacillin susceptibility test by minimum inhibitory co ncentration <= NRG Gentamicin susceptibility test by minimum inhibitory c oncentration <= NRG Clindamycin susceptibility test by minimum inhibitory concentration R NRG Erythromycin susceptibility test by minimum inhibitory concentration R NRG Trimethoprim/sulfamethoxazole susceptibi lity test by minimum inhibitoryconcentration <= NRG Vancomycin susceptibility test by minimum inhibitory c oncentration <= NRG Levofloxacin susceptibility test by minimum inhibitory concentration 4 NRG Rifampin susceptibility test by minimum inhibitory con centration <= NRG Tetracycline susceptibility test by minimum inhibitory concentration >= NRG Ciprofloxacin susceptibility test by minimum inhibitor y concentration R NRG Capillary blood glucose measurement by g lucometer (mass/volume) - 04/16/16 10:24 Capillary blood glucose measurement by glucometer (mas s/volume) 179 mg/dL 70-110 Complete blood count (CBC) with automate d white blood cell (WBC) differential - 03/27/17 18:04 Blood leukocytes automated count (number/volume) 19.0 10*3/uL 4.3-11.0 Blood erythrocytes automated count (number/volume) 4.90 10*6/uL 4.35-5.85 Venous blood hemoglobin measurement (mass/volume) 11.4 g/dL 11.5-16.0 Blood hematocrit (volume fraction) 37 % 35-52 Automated erythrocyte mean corpuscular volume 76 [ foz_us] 80-99 Automated erythrocyte mean corpuscular h emoglobin (mass per erythrocyte) 23 pg 25-34 Automated erythrocyte mean corpuscular h emoglobin concentration measurement (mass/volume) 31 g/dL 32-36 Automated erythrocyte distribution width ratio 16. 0 % 10.0- 14.5 Automated blood platelet count (count/volume) 313 10*3/uL [...] 10*3 1.0-4.0 Blood monocytes automated count (number/volume) 1. 6 10*3 0.0-1.0 Automated eosinophil count 0.3 10*3/uL 0 .0-0.3 Automated blood basophil count (count/volume) 0.1 10*3/uL 0.0-0.1 Comprehensive metabolic panel - 03/27/17 18:04 Serum or plasma sodium measurement (moles/volume) 132 mmol/L 135-145 Serum or plasma potassium measurement (moles/volume) 4.5 mmol/L 3.6-5.0 Serum or plasma chloride measurement (moles/volume) 99 mmol/L 98-107 Carbon dioxide 16 mmol/L 21-32 Serum or plasma anion gap determination (moles/volume) 17 mmol/L 5-14 Serum or plasma urea nitrogen measurement (mass/volume ) 18 mg/dL 7-18 Serum or plasma creatinine measurement (mass/volume) 1.58 mg/dL 0.60-1.30 Serum or plasma urea nitrogen/creatinine mass ratio 11 NRG Serum or plasma creatinine measurement w ith calculation of estimated glomerular filtration rate 33 NRG Serum or plasma glucose measurement (mass/volume) 327 mg/dL 70-105 Serum or plasma calcium measurement (mass/volume) 9.0 mg/dL 8.5-10.1 Serum or plasma total bilirubin measurement (mass/volu me) 0.4 mg/dL 0.1-1.0 Serum or plasma alkaline phosphatase rey surement (enzymatic activity/volume) 159 U/L 40-136 Serum or plasma aspartate aminotransfera se measurement (enzymatic activity/volume) 218 U/L 5-34 Serum or plasma alanine aminotransferase measurement (enzymatic activity/volume) 155 U/L 0-55 Serum or plasma protein measurement (mass/volume) 8.3 g/dL 6.4-8.2 Serum or plasma albumin measurement (mass/volume) 3.8 g/dL 3.2-4.5 Magnesium - 03/27/17 18:04 Magnesium 2.1 mg/dL 1.8-2.4 Blood manual differential performed dete ction - 03/27/17 18:04 Blood monocytes/100 leukocytes 0 % NRG Manual blood segmented neutrophils/100 leukocytes 47 % NRG Blood band neutrophils/100 leukocytes 0 % NRG Manual blood lymphocytes/100 leukocytes 52 % NRG Manual eosinophils/100 leukocytes in nose 1 % NRG Manual blood basophils/100 leukocytes 0 % NRG Blood erythrocyte morphology finding identification NORMAL NRG Serum or plasma troponin i.cardiac measu rement (mass/volume) - 03/27/17 18:04 Serum or plasma troponin i.cardiac measurement (mass/v olume) < ng/mL <0.30 Capillary blood glucose measurement by g lucometer (mass/volume) - 03/27/17 18:08 Capillary blood glucose measurement by glucometer (mas s/volume) 326 mg/dL 70-110 Arterial blood gas measurement - 7 18:20 Blood pCO2 53 mm[Hg] 35-45 Blood pO2 195 mm[Hg] 79-93 Arterial blood bicarbonate measurement (moles/volume) 20 mmol/L 23-27 Arterial blood base excess by calculation -7.0 mmo l/L -2.5-2.5 Arterial blood oxygen saturation measurement 99 % 94-100 * Inhaled oxygen flow rate 100% NRG Arterial blood pH measurement with patient temperature correction 7.20 7.37-7.43 Arterial blood carbon dioxide, total measurement (mole s/volume) 21.5 mmol/L 21.0-31.0 Body site right radial NRG Assessment of wrist artery patency prior to arterial p uncture YES-POS NRG Setting of ventilation mode NO NR G Measurement of body temperature 98 NRG Arterial blood gas measurement - 7 19:47 Blood pCO2 44 mm[Hg] 35-45 Blood pO2 121 mm[Hg] 79-93 Arterial blood bicarbonate measurement (moles/volume) 22 mmol/L 23-27 Arterial blood base excess by calculation -2.9 mmo l/L -2.5-2.5 Arterial blood oxygen saturation measurement 99 % 94-100 * Inhaled oxygen flow rate 60% NRG Arterial blood pH measurement with patient temperature correction 7.33 7.37-7.43 Arterial blood carbon dioxide, total measurement (mole s/volume) 23.6 mmol/L 21.0-31.0 Body site RT RAD NRG Assessment of wrist artery patency prior to arterial p uncture YES-POS NRG Setting of ventilation mode NO NR G Measurement of body temperature 98.0 NRG Complete urinalysis with reflex to cultu re - 03/27/17 20:00 Urine color determination YELLOW NRG Urine clarity determination SLIGHTLY CLOUDY NRG Urine pH measurement by test strip 5 5-9 Specific gravity of urine by test strip 1.020 1.016-1.022 Urine protein assay by test strip, semi-quantitative 3+ NEGATIVE Urine glucose detection by automated test strip 3+ NEGATIVE Erythrocytes detection in urine sediment by light micr oscopy 2+ NEGATIVE Urine ketones detection by automated test strip NE GATIVE NEGATIVE Urine nitrite detection by test strip NEGATIVE NEGATIVE Urine total bilirubin detection by test strip NEGA TIVE NEGATIVE Urine urobilinogen measurement by automated test strip (mass/volume) NORMAL NORMAL Urine leukocyte esterase detection by dipstick NEG ATIVE NEGATIVE Automated urine sediment erythrocyte cou nt by microscopy (number/high power field) [HPF] NRG Automated urine sediment leukocyte count by microscopy (number/high power field) [HPF] NRG Bacteria detection in urine sediment by light microsco py TRACE NRG Crystals detection in urine sediment by light microsco py PRESENT NRG Casts detection in urine sediment by light microscopy NONE NRG Mucus detection in urine sediment by light microscopy NEGATIVE NRG Complete urinalysis with reflex to culture NO NRG Amorphous sediment detection in urine sediment by ligh t microscopy FEW ELISHA URATES NRG Blood lactic acid measurement (moles/vol ume) - 03/27/17 20:25 Blood lactic acid measurement (moles/volume) 1.96 mmol/L 0.50-2.00 Bacterial blood culture - 03/27/17 20:25 QUANTITY OF GROWTH . NRG Bacterial blood culture SEE COMMEN NRG Bacterial blood culture - 03/27/17 20:40 Bacterial blood culture NG NRG Methicillin resistant Staphylococcus aur eus (MRSA) screening culture - 03/27/17 21:35 Methicillin resistant Staphylococcus aureus (MRSA) scr eening culture NEG NRG Capillary blood glucose measurement by g lucometer (mass/volume) - 03/27/17 22:17 Capillary blood glucose measurement by glucometer (mas s/volume) 271 mg/dL 70-110 Capillary blood glucose measurement by g lucometer (mass/volume) - 03/27/17 23:18 Capillary blood glucose measurement by glucometer (mas s/volume) 262 mg/dL 70-110 Capillary blood glucose measurement by g lucometer (mass/volume) - 03/28/17 00:18 Capillary blood glucose measurement by glucometer (mas s/volume) 265 mg/dL 70-110 Complete blood count (CBC) with automate d white blood cell (WBC) differential - 03/28/17 03:38 Blood leukocytes automated count (number/volume) 12.4 10*3/uL 4.3-11.0 Blood erythrocytes automated count (number/volume) 3.96 10*6/uL 4.35-5.85 Venous blood hemoglobin measurement (mass/volume) 9.2 g/dL 11.5-16.0 Blood hematocrit (volume fraction) 30 % 35-52 Automated erythrocyte mean corpuscular volume 75 [ foz_us] 80-99 Automated erythrocyte mean corpuscular h emoglobin (mass per erythrocyte) 23 pg 25-34 Automated erythrocyte mean corpuscular h emoglobin concentration measurement (mass/volume) 31 g/dL 32-36 Automated erythrocyte distribution width ratio 15. 8 % 10.0- 14.5 Automated blood platelet count (count/volume) 207 10*3/uL [...] 10*3 1.0-4.0 Blood monocytes automated count (number/volume) 0. 9 10*3 0.0-1.0 Automated eosinophil count 0.0 10*3/uL 0 .0-0.3 Automated blood basophil count (count/volume) 0.0 10*3/uL 0.0-0.1 Comprehensive metabolic panel - 03/28/17 03:38 Serum or plasma sodium measurement (moles/volume) 135 mmol/L 135-145 Serum or plasma potassium measurement (moles/volume) 4.3 mmol/L 3.6-5.0 Serum or plasma chloride measurement (moles/volume) 105 mmol/L 98-107 Carbon dioxide 20 mmol/L 21-32 Serum or plasma anion gap determination (moles/volume) 10 mmol/L 5-14 Serum or plasma urea nitrogen measurement (mass/volume ) 21 mg/dL 7-18 Serum or plasma creatinine measurement (mass/volume) 1.46 mg/dL 0.60-1.30 Serum or plasma urea nitrogen/creatinine mass ratio 14 NRG Serum or plasma creatinine measurement w ith calculation of estimated glomerular filtration rate 36 NRG Serum or plasma glucose measurement (mass/volume) 219 mg/dL 70-105 Serum or plasma calcium measurement (mass/volume) 8.3 mg/dL 8.5-10.1 Serum or plasma total bilirubin measurement (mass/volu me) 0.4 mg/dL 0.1-1.0 Serum or plasma alkaline phosphatase rey surement (enzymatic activity/volume) 104 U/L 40-136 Serum or plasma aspartate aminotransfera se measurement (enzymatic activity/volume) 141 U/L 5-34 Serum or plasma alanine aminotransferase measurement (enzymatic activity/volume) 135 U/L 0-55 Serum or plasma protein measurement (mass/volume) 6.4 g/dL 6.4-8.2 Serum or plasma albumin measurement (mass/volume) 3.1 g/dL 3.2-4.5 Serum or plasma phosphate measurement (m ass/volume) - 03/28/17 03:38 Serum or plasma phosphate measurement (mass/volume) 3.3 mg/dL 2.3-4.7 Magnesium - 03/28/17 03:38 Magnesium 1.6 mg/dL 1.8-2.4 Capillary blood glucose measurement by g lucometer (mass/volume) - 03/28/17 07:56 Capillary blood glucose measurement by glucometer (mas s/volume) 225 mg/dL 70-110 Capillary blood glucose measurement by g lucometer (mass/volume) - 03/28/17 11:15 Capillary blood glucose measurement by glucometer (mas s/volume) 175 mg/dL 70-110 Capillary blood glucose measurement by g lucometer (mass/volume) - 03/28/17 16:03 Capillary blood glucose measurement by glucometer (mas s/volume) 128 mg/dL 70-110 Capillary blood glucose measurement by g lucometer (mass/volume) - 03/28/17 21:05 Capillary blood glucose measurement by glucometer (mas s/volume) 227 mg/dL 70-110 Complete blood count (CBC) with automate d white blood cell (WBC) differential - 03/29/17 03:34 Blood leukocytes automated count (number/volume) 7.6 10*3/uL 4.3-11.0 Blood erythrocytes automated count (number/volume) 3.67 10*6/uL 4.35-5.85 Venous blood hemoglobin measurement (mass/volume) 8.5 g/dL 11.5-16.0 Blood hematocrit (volume fraction) 28 % 35-52 Automated erythrocyte mean corpuscular volume 76 [ foz_us] 80-99 Automated erythrocyte mean corpuscular h emoglobin (mass per erythrocyte) 23 pg 25-34 Automated erythrocyte mean corpuscular h emoglobin concentration measurement (mass/volume) 30 g/dL 32-36 Automated erythrocyte distribution width ratio 16. 2 % 10.0- 14.5 Automated blood platelet count (count/volume) 174 10*3/uL [...] 10*3 1.0-4.0 Blood monocytes automated count (number/volume) 0. 8 10*3 0.0-1.0 Automated eosinophil count 0.2 10*3/uL 0 .0-0.3 Automated blood basophil count (count/volume) 0.1 10*3/uL 0.0-0.1 Whole blood basic metabolic panel - 03/13 03/29 03:34 Serum or plasma sodium measurement (moles/volume) 137 mmol/L 135-145 Serum or plasma potassium measurement (moles/volume) 4.0 mmol/L 3.6-5.0 Serum or plasma chloride measurement (moles/volume) 108 mmol/L 98-107 Carbon dioxide 19 mmol/L 21-32 Serum or plasma anion gap determination (moles/volume) 10 mmol/L 5-14 Serum or plasma urea nitrogen measurement (mass/volume ) 18 mg/dL 7-18 Serum or plasma creatinine measurement (mass/volume) 1.47 mg/dL 0.60-1.30 Serum or plasma urea nitrogen/creatinine mass ratio 12 NRG Serum or plasma creatinine measurement w ith calculation of estimated glomerular filtration rate 35 NRG Serum or plasma glucose measurement (mass/volume) 174 mg/dL 70-105 Serum or plasma calcium measurement (mass/volume) 8.2 mg/dL 8.5-10.1 Serum or plasma phosphate measurement (m ass/volume) - 03/29/17 03:34 Serum or plasma phosphate measurement (mass/volume) 3.6 mg/dL 2.3-4.7 Magnesium - 03/29/17 03:34 Magnesium 2.1 mg/dL 1.8-2.4 Serum or plasma lithium measurement (mol es/volume) - 03/29/17 03:34 BNP level 145.5 pg/mL <100.0 Capillary blood glucose measurement by g lucometer (mass/volume) - 03/29/17 15:59 Capillary blood glucose measurement by glucometer (mas s/volume) 215 mg/dL 70-110 Capillary blood glucose measurement by g lucometer (mass/volume) - 03/29/17 20:36 Capillary blood glucose measurement by glucometer (mas s/volume) 194 mg/dL 70-110 Complete blood count (CBC) with automate d white blood cell (WBC) differential - 03/30/17 04:33 Blood leukocytes automated count (number/volume) 10.1 10*3/uL 4.3-11.0 Blood erythrocytes automated count (number/volume) 3.87 10*6/uL 4.35-5.85 Venous blood hemoglobin measurement (mass/volume) 8.9 g/dL 11.5-16.0 Blood hematocrit (volume fraction) 29 % 35-52 Automated erythrocyte mean corpuscular volume 76 [ foz_us] 80-99 Automated erythrocyte mean corpuscular h emoglobin (mass per erythrocyte) 23 pg 25-34 Automated erythrocyte mean corpuscular h emoglobin concentration measurement (mass/volume) 30 g/dL 32-36 Automated erythrocyte distribution width ratio 16. 0 % 10.0- 14.5 Automated blood platelet count (count/volume) 196 10*3/uL [...] 10*3 1.0-4.0 Blood monocytes automated count (number/volume) 0. 9 10*3 0.0-1.0 Automated eosinophil count 0.3 10*3/uL 0 .0-0.3 Automated blood basophil count (count/volume) 0.1 10*3/uL 0.0-0.1 Whole blood basic metabolic panel - 03/13 04/29 04:33 Serum or plasma sodium measurement (moles/volume) 136 mmol/L 135-145 Serum or plasma potassium measurement (moles/volume) 4.6 mmol/L 3.6-5.0 Serum or plasma chloride measurement (moles/volume) 107 mmol/L 98-107 Carbon dioxide 21 mmol/L 21-32 Serum or plasma anion gap determination (moles/volume) 8 mmol/L 5-14 Serum or plasma urea nitrogen measurement (mass/volume ) 17 mg/dL 7-18 Serum or plasma creatinine measurement (mass/volume) 1.36 mg/dL 0.60-1.30 Serum or plasma urea nitrogen/creatinine mass ratio 13 NRG Serum or plasma creatinine measurement w ith calculation of estimated glomerular filtration rate 39 NRG Serum or plasma glucose measurement (mass/volume) 184 mg/dL 70-105 Serum or plasma calcium measurement (mass/volume) 8.8 mg/dL 8.5-10.1 Capillary blood glucose measurement by g lucometer (mass/volume) - 03/30/17 11:26 Capillary blood glucose measurement by glucometer (mas s/volume) 245 mg/dL 70-110 Complete urinalysis with reflex to cultu re - 08/28/17 00:34 Urine color determination YELLOW NRG Urine clarity determination SLIGHTLY CLOUDY NRG Urine pH measurement by test strip 6 5-9 Specific gravity of urine by test strip 1.015 1.016-1.022 Urine protein assay by test strip, semi-quantitative 4+ NEGATIVE Urine glucose detection by automated test strip 2+ NEGATIVE Erythrocytes detection in urine sediment by light micr oscopy 2+ NEGATIVE Urine ketones detection by automated test strip NE GATIVE NEGATIVE Urine nitrite detection by test strip NEGATIVE NEGATIVE Urine total bilirubin detection by test strip NEGA TIVE NEGATIVE Urine urobilinogen measurement by automated test strip (mass/volume) NORMAL NORMAL Urine leukocyte esterase detection by dipstick 2+ NEGATIVE Automated urine sediment erythrocyte cou nt by microscopy (number/high power field) [HPF] NRG Automated urine sediment leukocyte count by microscopy (number/high power field) [HPF] NRG Bacteria detection in urine sediment by light microsco py LARGE NRG Squamous epithelial cells detection in u rine sediment by light microscopy 0-2 NRG Crystals detection in urine sediment by light microsco py NONE NRG Casts detection in urine sediment by light microscopy NONE NRG Mucus detection in urine sediment by light microscopy NEGATIVE NRG Complete urinalysis with reflex to culture YES NRG Bacterial urine culture - 08/28/17 00:34 Bacterial urine culture SEE COMMEN NRG COLONY COUNT . NRG FTX;REPORTABLE SENSITIVITY REPORTED 08/30 06:45 NRG Bacterial susceptibility panel - 7 00:34 Gentamicin susceptibility test by minimum inhibitory c oncentration <= NRG Trimethoprim/sulfamethoxazole susceptibi lity test by minimum inhibitoryconcentration S NRG Ampicillin susceptibility test by minimum inhibitory c oncentration >= NRG Tobramycin susceptibility test by minimum inhibitory c oncentration <= NRG Cefazolin susceptibility test by minimum inhibitory co ncentration <= NRG Ceftriaxone susceptibility test by minimum inhibitory concentration <= NRG Ampicillin/sulbactam susceptibility test by minimum inhibitory concentration I NRG Piperacillin/tazobactam susceptibility t est by minimum inhibitory concentration S NRG Ciprofloxacin susceptibility test by minimum inhibitor y concentration >= NRG Meropenem susceptibility test by minimum inhibitory co ncentration <= NRG Nitrofurantoin susceptibility test by mi nimum inhibitory concentration <= NRG Aztreonam susceptibility test by minimum inhibitory co ncentration <= NRG Extended spectrum beta lactamase (ESBL) producing bacteria susceptibility test by minimum inhibitory concentration - NRG Serum or plasma lactate measurement (mol es/volume) - 08/28/17 00:59 Serum or plasma lactate measurement (moles/volume) 0.50- 2.00 Influenza virus A and B antigen detectio n - 08/28/17 22:48 FLU RESULT NEGATIVE FOR INFLUENZA A AND B ANTIGENS BY IA NRG Complete blood count (CBC) with automate d white blood cell (WBC) differential - 08/28/17 22:50 Blood leukocytes automated count (number/volume) 18.8 10*3/uL 4.3-11.0 Blood erythrocytes automated count (number/volume) 4.46 10*6/uL 4.35-5.85 Venous blood hemoglobin measurement (mass/volume) 10.6 g/dL 11.5-16.0 Blood hematocrit (volume fraction) 34 % 35-52 Automated erythrocyte mean corpuscular volume 75 [ foz_us] 80-99 Automated erythrocyte mean corpuscular h emoglobin (mass per erythrocyte) 24 pg 25-34 Automated erythrocyte mean corpuscular h emoglobin concentration measurement (mass/volume) 32 g/dL 32-36 Automated erythrocyte distribution width ratio 15. 1 % 10.0- 14.5 Automated blood platelet count (count/volume) 255 10*3/uL [...] 10*3 1.0-4.0 Blood monocytes automated count (number/volume) 0. 8 10*3 0.0-1.0 Automated eosinophil count 0.0 10*3/uL 0 .0-0.3 Automated blood basophil count (count/volume) 0.0 10*3/uL 0.0-0.1 Blood manual differential performed dete ction - 08/28/17 22:50 Blood monocytes/100 leukocytes 2 % NRG Manual blood segmented neutrophils/100 leukocytes 79 % NRG Blood band neutrophils/100 leukocytes 11 % NRG Manual blood lymphocytes/100 leukocytes 8 % NRG Manual eosinophils/100 leukocytes in nose 0 % NRG Manual blood basophils/100 leukocytes 0 % NRG Blood erythrocyte morphology finding identification NORMAL NRG PT panel in platelet poor plasma by coag ulation assay - 08/28/17 22:50 Prothrombin time (PT) in platelet poor plasma by coagu lation assay 15.0 s 12.2-14.7 INR in platelet poor plasma or blood by coagulation as say 1.2 0.8-1.4 Activated partial thromboplastin time (a PTT) in platelet poor plasma bycoagulation assay - 08/28/17 22:50 Activated partial thromboplastin time (a PTT) in platelet poor plasma bycoagulation assay 29 s 24-35 Blood lactic acid measurement (moles/vol ume) - 08/28/17 22:50 Blood lactic acid measurement [...] 5-14 Serum or plasma urea nitrogen measurement (mass/volume ) 17 mg/dL 7-18 Serum or plasma creatinine measurement (mass/volume) 1.59 mg/dL 0.60-1.30 Serum or plasma urea nitrogen/creatinine mass ratio 11 NRG Serum or plasma creatinine measurement w ith calculation of estimated glomerular filtration rate 32 NRG Serum or plasma glucose measurement (mass/volume) 202 mg/dL 70-105 Serum or plasma calcium measurement (mass/volume) 9.1 mg/dL 8.5-10.1 Serum or plasma total bilirubin measurement (mass/volu me) 0.6 mg/dL 0.1-1.0 Serum or plasma alkaline phosphatase rey surement (enzymatic activity/volume) 103 U/L 40-136 Serum or plasma aspartate aminotransfera se measurement (enzymatic activity/volume) 46 U/L 5-34 Serum or plasma alanine aminotransferase measurement (enzymatic activity/volume) 36 U/L 0-55 Serum or plasma protein measurement (mass/volume) 8.4 g/dL 6.4-8.2 Serum or plasma albumin measurement (mass/volume) 3.6 g/dL 3.2-4.5 Magnesium - 08/28/17 22:50 Magnesium 1.8 mg/dL 1.8-2.4 Serum or plasma troponin i.cardiac measu rement (mass/volume) - 08/28/17 22:50 Serum or plasma troponin i.cardiac measurement (mass/v olume) < ng/mL <0.30 Serum or plasma amylase measurement (enz ymatic activity/volume) - 08/28/17 22:50 Serum or plasma amylase measurement (enzymatic activit y/volume) 34 U/L 25-125 Serum or plasma lithium measurement (mol es/volume) - 08/28/17 22:50 BNP level 115.6 pg/mL <100.0 Lipase - 08/28/17 22:50 Lipase 23 U/L 8-78 Bacterial blood culture - 08/28/17 22:50 Bacterial blood culture NG NRG Bacterial blood culture - 08/28/17 22:56 Bacterial blood culture NG NRG Serum or plasma lactate measurement (mol es/volume) - 08/29/17 00:59 Serum or plasma lactate measurement (moles/volume) 0.45 mmol/L 0.50-2.00 Capillary blood glucose measurement by g lucometer (mass/volume) - 08/29/17 04:19 Capillary blood glucose measurement by glucometer (mas s/volume) 231 mg/dL 70-110 Complete blood count (CBC) with automate d white blood cell (WBC) differential - 08/29/17 05:25 Blood leukocytes automated count (number/volume) 16.6 10*3/uL 4.3-11.0 Blood erythrocytes automated count (number/volume) 3.64 10*6/uL 4.35-5.85 Venous blood hemoglobin measurement (mass/volume) 8.7 g/dL 11.5-16.0 Blood hematocrit (volume fraction) 28 % 35-52 Automated erythrocyte mean corpuscular volume 76 [ foz_us] 80-99 Automated erythrocyte mean corpuscular h emoglobin (mass per erythrocyte) 24 pg 25-34 Automated erythrocyte mean corpuscular h emoglobin concentration measurement (mass/volume) 31 g/dL 32-36 Automated erythrocyte distribution width ratio 14. 8 % 10.0- 14.5 Automated blood platelet count (count/volume) 213 10*3/uL [...] 10*3 1.0-4.0 Blood monocytes automated count (number/volume) 0. 8 10*3 0.0-1.0 Automated eosinophil count 0.0 10*3/uL 0 .0-0.3 Automated blood basophil count (count/volume) 0.0 10*3/uL 0.0-0.1 Comprehensive metabolic panel - 08/29/17 05:25 Serum or plasma sodium measurement (moles/volume) 131 mmol/L 135-145 Serum or plasma potassium measurement (moles/volume) 4.2 mmol/L 3.6-5.0 Serum or plasma chloride measurement (moles/volume) 100 mmol/L 98-107 Carbon dioxide 21 mmol/L 21-32 Serum or plasma anion gap determination (moles/volume) 10 mmol/L 5-14 Serum or plasma urea nitrogen measurement (mass/volume ) 20 mg/dL 7-18 Serum or plasma creatinine measurement (mass/volume) 1.95 mg/dL 0.60-1.30 Serum or plasma urea nitrogen/creatinine mass ratio 10 NRG Serum or plasma creatinine measurement w ith calculation of estimated glomerular filtration rate 26 NRG Serum or plasma glucose measurement (mass/volume) 244 mg/dL 70-105 Serum or plasma calcium measurement (mass/volume) 7.9 mg/dL 8.5-10.1 Serum or plasma total bilirubin measurement (mass/volu me) 0.7 mg/dL 0.1-1.0 Serum or plasma alkaline phosphatase rey surement (enzymatic activity/volume) 73 U/L 40-136 Serum or plasma aspartate aminotransfera se measurement (enzymatic activity/volume) 18 U/L 5-34 Serum or plasma alanine aminotransferase measurement (enzymatic activity/volume) 24 U/L 0-55 Serum or plasma protein measurement (mass/volume) 6.1 g/dL 6.4-8.2 Serum or plasma albumin measurement (mass/volume) 2.8 g/dL 3.2-4.5 Capillary blood glucose measurement by g lucometer (mass/volume) - 08/29/17 11:15 Capillary blood glucose measurement by glucometer (mas s/volume) 187 mg/dL 70-110 Capillary blood glucose measurement by g lucometer (mass/volume) - 08/29/17 15:48 Capillary blood glucose measurement by glucometer (mas s/volume) 300 mg/dL 70-110 Capillary blood glucose measurement by g lucometer (mass/volume) - 08/29/17 20:30 Capillary blood glucose measurement by glucometer (mas s/volume) 253 mg/dL 70-110 Complete blood count (CBC) with automate d white blood cell (WBC) differential - 08/30/17 05:43 Blood leukocytes automated count (number/volume) 15.2 10*3/uL 4.3-11.0 Blood erythrocytes automated count (number/volume) 3.43 10*6/uL 4.35-5.85 Venous blood hemoglobin measurement (mass/volume) 8.0 g/dL 11.5-16.0 Blood hematocrit (volume fraction) 26 % 35-52 Automated erythrocyte mean corpuscular volume 76 [ foz_us] 80-99 Automated erythrocyte mean corpuscular h emoglobin (mass per erythrocyte) 23 pg 25-34 Automated erythrocyte mean corpuscular h emoglobin concentration measurement (mass/volume) 31 g/dL 32-36 Automated erythrocyte distribution width ratio 14. 9 % 10.0- 14.5 Automated blood platelet count (count/volume) 189 10*3/uL [...] 10*3 1.0-4.0 Blood monocytes automated count (number/volume) 0. 5 10*3 0.0-1.0 Automated eosinophil count 0.1 10*3/uL 0 .0-0.3 Automated blood basophil count (count/volume) 0.0 10*3/uL 0.0-0.1 Comprehensive metabolic panel - 08/30/17 05:43 Serum or plasma sodium measurement (moles/volume) 130 mmol/L 135-145 Serum or plasma potassium measurement (moles/volume) 3.9 mmol/L 3.6-5.0 Serum or plasma chloride measurement (moles/volume) 102 mmol/L 98-107 Carbon dioxide 21 mmol/L 21-32 Serum or plasma anion gap determination (moles/volume) 7 mmol/L 5-14 Serum or plasma urea nitrogen measurement (mass/volume ) 18 mg/dL 7-18 Serum or plasma creatinine measurement (mass/volume) 1.36 mg/dL 0.60-1.30 Serum or plasma urea nitrogen/creatinine mass ratio 13 NRG Serum or plasma creatinine measurement w ith calculation of estimated glomerular filtration rate 39 NRG Serum or plasma glucose measurement (mass/volume) 226 mg/dL 70-105 Serum or plasma calcium measurement (mass/volume) 7.8 mg/dL 8.5-10.1 Serum or plasma total bilirubin measurement (mass/volu me) 0.6 mg/dL 0.1-1.0 Serum or plasma alkaline phosphatase rey surement (enzymatic activity/volume) 75 U/L 40-136 Serum or plasma aspartate aminotransfera se measurement (enzymatic activity/volume) 18 U/L 5-34 Serum or plasma alanine aminotransferase measurement (enzymatic activity/volume) 22 U/L 0-55 Serum or plasma protein measurement (mass/volume) 6.2 g/dL 6.4-8.2 Serum or plasma albumin measurement (mass/volume) 2.7 g/dL 3.2-4.5 Capillary blood glucose measurement by g lucometer (mass/volume) - 08/30/17 10:55 Capillary blood glucose measurement by glucometer (mas s/volume) 202 mg/dL 70-110 IRON TEST - 08/30/17 12:07 Serum or plasma iron measurement (mass/volume) < % 35-180 Capillary blood glucose measurement by g lucometer (mass/volume) - 08/30/17 15:40 Capillary blood glucose measurement by glucometer (mas s/volume) 173 mg/dL 70-110 Capillary blood glucose measurement by g lucometer (mass/volume) - 08/30/17 20:43 Capillary blood glucose measurement by glucometer (mas s/volume) 316 mg/dL 70-110 Vancomycin trough - 08/31/17 [...] 5-14 Serum or plasma urea nitrogen measurement (mass/volume ) 17 mg/dL 7-18 Serum or plasma creatinine measurement (mass/volume) 1.25 mg/dL 0.60-1.30 Serum or plasma urea nitrogen/creatinine mass ratio 14 NRG Serum or plasma creatinine measurement w ith calculation of estimated glomerular filtration rate 43 NRG Serum or plasma glucose measurement (mass/volume) 135 mg/dL 70-105 Serum or plasma calcium measurement (mass/volume) 8.0 mg/dL 8.5-10.1 Serum or plasma total bilirubin measurement (mass/volu me) 0.2 mg/dL 0.1-1.0 Serum or plasma alkaline phosphatase rey surement (enzymatic activity/volume) 94 U/L 40-136 Serum or plasma aspartate aminotransfera se measurement (enzymatic activity/volume) 26 U/L 5-34 Serum or plasma alanine aminotransferase measurement (enzymatic activity/volume) 20 U/L 0-55 Serum or plasma protein measurement (mass/volume) 6.0 g/dL 6.4-8.2 Serum or plasma albumin measurement (mass/volume) 2.5 g/dL 3.2-4.5 Complete blood count (CBC) with automate d white blood cell (WBC) differential - 08/31/17 05:41 Blood leukocytes automated count (number/volume) 13.8 10*3/uL 4.3-11.0 Blood erythrocytes automated count (number/volume) 3.38 10*6/uL 4.35-5.85 Venous blood hemoglobin measurement (mass/volume) 8.1 g/dL 11.5-16.0 Blood hematocrit (volume fraction) 26 % 35-52 Automated erythrocyte mean corpuscular volume 75 [ foz_us] 80-99 Automated erythrocyte mean corpuscular h emoglobin (mass per erythrocyte) 24 pg 25-34 Automated erythrocyte mean corpuscular h emoglobin concentration measurement (mass/volume) 32 g/dL 32-36 Automated erythrocyte distribution width ratio 14. 9 % 10.0- 14.5 Automated blood platelet count (count/volume) 208 10*3/uL [...] 10*3 1.0-4.0 Blood monocytes automated count (number/volume) 0. 9 10*3 0.0-1.0 Automated eosinophil count 0.2 10*3/uL 0 .0-0.3 Automated blood basophil count (count/volume) 0.0 10*3/uL 0.0-0.1 Capillary blood glucose measurement by g lucometer (mass/volume) - 08/31/17 11:27 Capillary blood glucose measurement by glucometer (mas s/volume) 300 mg/dL 70-110 Bacterial blood culture - 10/13/17 00:03 Bacterial blood culture NG NRG Complete blood count (CBC) with automate d white blood cell (WBC) differential - 10/13/17 00:10 Blood leukocytes automated count (number/volume) 14.0 10*3/uL 4.3-11.0 Blood erythrocytes automated count (number/volume) 4.37 10*6/uL 4.35-5.85 Venous blood hemoglobin measurement (mass/volume) 11.3 g/dL 11.5-16.0 Blood hematocrit (volume fraction) 35 % 35-52 Automated erythrocyte mean corpuscular volume 79 [ foz_us] 80-99 Automated erythrocyte mean corpuscular h emoglobin (mass per erythrocyte) 26 pg 25-34 Automated erythrocyte mean corpuscular h emoglobin concentration measurement (mass/volume) 33 g/dL 32-36 Automated erythrocyte distribution width ratio 18. 2 % 10.0- 14.5 Automated blood platelet count (count/volume) 208 10*3/uL [...] 10*3 1.0-4.0 Blood monocytes automated count (number/volume) 1. 2 10*3 0.0-1.0 Automated eosinophil count 0.1 10*3/uL 0 .0-0.3 Automated blood basophil count (count/volume) 0.0 10*3/uL 0.0-0.1 Blood lactic acid measurement (moles/vol ume) - 10/13/17 00:10 Blood lactic acid measurement [...] 5-14 Serum or plasma urea nitrogen measurement (mass/volume ) 19 mg/dL 7-18 Serum or plasma creatinine measurement (mass/volume) 1.29 mg/dL 0.60-1.30 Serum or plasma urea nitrogen/creatinine mass ratio 15 NRG Serum or plasma creatinine measurement w ith calculation of estimated glomerular filtration rate 41 NRG Serum or plasma glucose measurement (mass/volume) 214 mg/dL 70-105 Serum or plasma calcium measurement (mass/volume) 8.9 mg/dL 8.5-10.1 Serum or plasma total bilirubin measurement (mass/volu me) 0.9 mg/dL 0.1-1.0 Serum or plasma alkaline phosphatase rey surement (enzymatic activity/volume) 110 U/L 40-136 Serum or plasma aspartate aminotransfera se measurement (enzymatic activity/volume) 16 U/L 5-34 Serum or plasma alanine aminotransferase measurement (enzymatic activity/volume) 21 U/L 0-55 Serum or plasma protein measurement (mass/volume) 7.5 g/dL 6.4-8.2 Serum or plasma albumin measurement (mass/volume) 3.5 g/dL 3.2-4.5 Bacterial blood culture - 10/13/17 00:10 Bacterial blood culture NG NRG Complete urinalysis with reflex to cultu re - 10/13/17 02:00 Urine color determination YELLOW NRG Urine clarity determination CLEAR NR G Urine pH measurement by test strip 5 5-9 Specific gravity of urine by test strip 1.020 1.016-1.022 Urine protein assay by test strip, semi-quantitative 2+ NEGATIVE Urine glucose detection by automated test strip 3+ NEGATIVE Erythrocytes detection in urine sediment by light micr oscopy 1+ NEGATIVE Urine ketones detection by automated test strip NE GATIVE NEGATIVE Urine nitrite detection by test strip POSITIVE NEGATIVE Urine total bilirubin detection by test strip NEGA TIVE NEGATIVE Urine urobilinogen measurement by automated test strip (mass/volume) NORMAL NORMAL Urine leukocyte esterase detection by dipstick NEG ATIVE NEGATIVE Automated urine sediment erythrocyte cou nt by microscopy (number/high power field) NONE NRG Automated urine sediment leukocyte count by microscopy (number/high power field) NONE NRG Bacteria detection in urine sediment by light microsco py NEGATIVE NRG Squamous epithelial cells detection in u rine sediment by light microscopy RARE NRG Crystals detection in urine sediment by light microsco py NONE NRG Casts detection in urine sediment by light microscopy NONE NRG Mucus detection in urine sediment by light microscopy NEGATIVE NRG Complete urinalysis with reflex to culture YES NRG Bacterial urine culture - 10/13/17 02:00 Bacterial urine culture [id number] NRG COLONY COUNT 10,000/ML - 100,000/ML NRG FTX;REPORTABLE SENSITIVTY REPORTED AT 0755, 2-1-18 [facility] Bacterial susceptibility panel - 8 02:00 Gentamicin susceptibility test by minimum inhibitory c oncentration <= NRG Trimethoprim/sulfamethoxazole susceptibi lity test by minimum inhibitoryconcentration S NRG Ampicillin susceptibility test by minimum inhibitory c oncentration >= NRG Tobramycin susceptibility test by minimum inhibitory c oncentration <= NRG Cefazolin susceptibility test by minimum inhibitory co ncentration <= NRG Ceftriaxone susceptibility test by minimum inhibitory concentration <= NRG Ampicillin/sulbactam susceptibility test by minimum inhibitory concentration S NRG Piperacillin/tazobactam susceptibility t est by minimum inhibitory concentration S NRG Ciprofloxacin susceptibility test by minimum inhibitor y concentration >= NRG Meropenem susceptibility test by minimum inhibitory co ncentration <= NRG Nitrofurantoin susceptibility test by mi nimum inhibitory concentration <= NRG Aztreonam susceptibility test by minimum inhibitory co ncentration <= NRG Extended spectrum beta lactamase (ESBL) producing bacteria susceptibility test by minimum inhibitory concentration - NR Complete blood count (CBC) with automate d white blood cell (WBC) differential - 10/13/17 04:59 Blood leukocytes automated count (number/volume) 11.0 10*3/uL 4.3-11.0 Blood erythrocytes automated count (number/volume) 3.96 10*6/uL 4.35-5.85 Venous blood hemoglobin measurement (mass/volume) 10.0 g/dL 11.5-16.0 Blood hematocrit (volume fraction) 32 % 35-52 Automated erythrocyte mean corpuscular volume 80 [ foz_us] 80-99 Automated erythrocyte mean corpuscular h emoglobin (mass per erythrocyte) 25 pg 25-34 Automated erythrocyte mean corpuscular h emoglobin concentration measurement (mass/volume) 32 g/dL 32-36 Automated erythrocyte distribution width ratio 18. 2 % 10.0- 14.5 Automated blood platelet count (count/volume) 177 10*3/uL 130-400 Automated blood platelet mean volume measurement 9.9 [foz_us] 7.4-10.4 Automated blood neutrophils/100 leukocytes 72 % 42-75 Automated blood lymphocytes/100 leukocytes 16 % 12-44 Blood monocytes/100 leukocytes 10 % 0-12 Automated blood eosinophils/100 leukocytes 1 % 0-10 Automated blood basophils/100 leukocytes 0 % 0-10 Blood neutrophils automated count (number/volume) 8.0 10*3 1.8-7.8 Blood lymphocytes automated count (number/volume) 1.8 10*3 1.0-4.0 Blood monocytes automated count (number/volume) 1. 1 10*3 0.0-1.0 Automated eosinophil count 0.1 10*3/uL 0 .0-0.3 Automated blood basophil count (count/volume) 0.0 10*3/uL 0.0-0.1 Comprehensive metabolic panel - 10/13/17 04:59 Serum or plasma sodium measurement (moles/volume) 137 mmol/L 135-145 Serum or plasma potassium measurement (moles/volume) 3.9 mmol/L 3.6-5.0 Serum or plasma chloride measurement (moles/volume) 105 mmol/L 98-107 Carbon dioxide 22 mmol/L 21-32 Serum or plasma anion gap determination (moles/volume) 10 mmol/L 5-14 Serum or plasma urea nitrogen measurement (mass/volume ) 19 mg/dL 7-18 Serum or plasma creatinine measurement (mass/volume) 1.23 mg/dL 0.60-1.30 Serum or plasma urea nitrogen/creatinine mass ratio 15 NRG Serum or plasma creatinine measurement w ith calculation of estimated glomerular filtration rate 43 NRG Serum or plasma glucose measurement (mass/volume) 200 mg/dL 70-105 Serum or plasma calcium measurement (mass/volume) 8.4 mg/dL 8.5-10.1 Serum or plasma total bilirubin measurement (mass/volu me) 0.4 mg/dL 0.1-1.0 Serum or plasma alkaline phosphatase rey surement (enzymatic activity/volume) 97 U/L 40-136 Serum or plasma aspartate aminotransfera se measurement (enzymatic activity/volume) 14 U/L 5-34 Serum or plasma alanine aminotransferase measurement (enzymatic activity/volume) 19 U/L 0-55 Serum or plasma protein measurement (mass/volume) 6.7 g/dL 6.4-8.2 Serum or plasma albumin measurement (mass/volume) 3.2 g/dL 3.2-4.5 Capillary blood glucose measurement by g lucometer (mass/volume) - 10/13/17 05:14 Capillary blood glucose measurement by glucometer (mas s/volume) 199 mg/dL 70-110 Capillary blood glucose measurement by g lucometer (mass/volume) - 10/13/17 11:33 Capillary blood glucose measurement by glucometer (mas s/volume) 242 mg/dL 70-110 Capillary blood glucose measurement by g lucometer (mass/volume) - 10/13/17 16:58 Capillary blood glucose measurement by glucometer (mas s/volume) 192 mg/dL 70-110 Capillary blood glucose measurement by g lucometer (mass/volume) - 10/13/17 20:59 Capillary blood glucose measurement by glucometer (mas s/volume) 246 mg/dL 70-110 Capillary blood glucose measurement by g lucometer (mass/volume) - 10/14/17 05:35 Capillary blood glucose measurement by glucometer (mas s/volume) 187 mg/dL 70-110 Automated blood complete blood count ( mogram) panel - 10/14/17 05:45 Blood leukocytes automated count (number/volume) 7.8 10*3/uL 4.3-11.0 Blood erythrocytes automated count (number/volume) 4.01 10*6/uL 4.35-5.85 Venous blood hemoglobin measurement (mass/volume) 10.3 g/dL 11.5-16.0 Blood hematocrit (volume fraction) 32 % 35-52 Automated erythrocyte mean corpuscular volume 80 [ foz_us] 80-99 Automated erythrocyte mean corpuscular h emoglobin (mass per erythrocyte) 26 pg 25-34 Automated erythrocyte mean corpuscular h emoglobin concentration measurement (mass/volume) 32 g/dL 32-36 Automated erythrocyte distribution width ratio 18. 3 % 10.0- 14.5 Automated blood platelet count (count/volume) 178 10*3/uL 130-400 Automated blood platelet mean volume measurement 10.0 [foz_us] 7.4-10.4 Whole blood basic metabolic panel - 09/30 05:45 Serum or plasma sodium measurement (moles/volume) 137 mmol/L 135-145 Serum or plasma potassium measurement (moles/volume) 3.8 mmol/L 3.6-5.0 Serum or plasma chloride measurement (moles/volume) 106 mmol/L 98-107 Carbon dioxide 20 mmol/L 21-32 Serum or plasma anion gap determination (moles/volume) 11 mmol/L 5-14 Serum or plasma urea nitrogen measurement (mass/volume ) 12 mg/dL 7-18 Serum or plasma creatinine measurement (mass/volume) 1.05 mg/dL 0.60-1.30 Serum or plasma urea nitrogen/creatinine mass ratio 11 NRG Serum or plasma creatinine measurement w ith calculation of estimated glomerular filtration rate 52 NRG Serum or plasma glucose measurement (mass/volume) 170 mg/dL 70-105 Serum or plasma calcium measurement (mass/volume) 8.8 mg/dL 8.5-10.1 Capillary blood glucose measurement by g lucometer (mass/volume) - 10/14/17 10:44 Capillary blood glucose measurement by glucometer (mas s/volume) 302 mg/dL 70-110 Vancomycin trough - 10/14/17 11:14 Vancomycin trough 9.2 ug/mL 10.0-20.0 Capillary blood glucose measurement by g lucometer (mass/volume) - 10/11/18 07:39 Capillary blood glucose measurement by glucometer (mas s/volume) 120 mg/dL 70-110 Complete blood count (CBC) with automate d white blood cell (WBC) differential - 02/19/19 08:20 Blood leukocytes automated count (number/volume) 11.7 10*3/uL 4.3-11.0 Blood erythrocytes automated count (number/volume) 4.89 10*6/uL 4.35-5.85 Venous blood hemoglobin measurement (mass/volume) 13.4 g/dL 11.5-16.0 Blood hematocrit (volume fraction) 41 % 35-52 Automated erythrocyte mean corpuscular volume 84 [ foz_us] 80-99 Automated erythrocyte mean corpuscular h emoglobin (mass per erythrocyte) 27 pg 25-34 Automated erythrocyte mean corpuscular h emoglobin concentration measurement (mass/volume) 33 g/dL 32-36 Automated erythrocyte distribution width ratio 14. 7 % 10.0- 14.5 Automated blood platelet count (count/volume) 202 10*3/uL 130-400 Automated blood platelet mean volume measurement 10.4 [foz_us] 7.4-10.4 Automated blood neutrophils/100 leukocytes 80 % 42-75 Automated blood lymphocytes/100 leukocytes 11 % 12-44 Blood monocytes/100 leukocytes 9 % 0-12 Automated blood eosinophils/100 leukocytes 1 % 0-10 Automated blood basophils/100 leukocytes 0 % 0-10 Blood neutrophils automated count (number/volume) 9.4 10*3 1.8-7.8 Blood lymphocytes automated count (number/volume) 1.3 10*3 1.0-4.0 Blood monocytes automated count (number/volume) 1. 0 10*3 0.0-1.0 Automated eosinophil count 0.1 10*3/uL 0 .0-0.3 Automated blood basophil count (count/volume) 0.0 10*3/uL 0.0-0.1 Blood lactic acid measurement (moles/vol ume) - 02/19/19 08:20 Blood lactic acid measurement (moles/volume) 1.66 mmol/L 0.50-2.00 Serum or plasma C reactive protein measu rement (mass/volume) - 02/19/19 08:20 Serum or plasma C reactive protein measurement (mass/v olume) 4.77 mg/dL 0.00-0.50 Comprehensive metabolic panel - 02/19/19 08:20 Serum or plasma sodium measurement (moles/volume) 136 mmol/L 135-145 Serum or plasma potassium measurement (moles/volume) 4.7 mmol/L 3.6-5.0 Serum or plasma chloride measurement (moles/volume) 105 mmol/L 98-107 Carbon dioxide 18 mmol/L 21-32 Serum or plasma anion gap determination (moles/volume) 13 mmol/L 5-14 Serum or plasma urea nitrogen measurement (mass/volume ) 15 mg/dL 7-18 Serum or plasma creatinine measurement (mass/volume) 1.53 mg/dL 0.60-1.30 Serum or plasma urea nitrogen/creatinine mass ratio 10 NRG Serum or plasma creatinine measurement w ith calculation of estimated glomerular filtration rate 34 NRG Serum or plasma glucose measurement (mass/volume) 152 mg/dL 70-105 Serum or plasma calcium measurement (mass/volume) 9.7 mg/dL 8.5-10.1 Serum or plasma total bilirubin measurement (mass/volu me) 0.6 mg/dL 0.1-1.0 Serum or plasma alkaline phosphatase rey surement (enzymatic activity/volume) 96 U/L 40-136 Serum or plasma aspartate aminotransfera se measurement (enzymatic activity/volume) 20 U/L 5-34 Serum or plasma alanine aminotransferase measurement (enzymatic activity/volume) 18 U/L 0-55 Serum or plasma protein measurement (mass/volume) 7.8 g/dL 6.4-8.2 Serum or plasma albumin measurement (mass/volume) 3.8 g/dL 3.2-4.5 CALCIUM CORRECTED 9.9 mg/dL 8.5-10.1 Magnesium - 02/19/19 08:20 Magnesium 1.8 mg/dL 1.8-2.4 PT panel in platelet poor plasma by coag ulation assay - 02/19/19 08:20 Prothrombin time (PT) in platelet poor plasma by coagu lation assay 13.8 s 12.2-14.7 INR in platelet poor plasma or blood by coagulation as say 1.0 0.8-1.4 Activated partial thromboplastin time (a PTT) in platelet poor plasma bycoagulation assay - 02/19/19 08:20 Activated partial thromboplastin time (a PTT) in platelet poor plasma bycoagulation assay 28 s 24-35 Serum or plasma troponin i.cardiac measu rement (mass/volume) - 02/19/19 08:20 Serum or plasma troponin i.cardiac measurement (mass/v olume) < ng/mL <0.028 Myoglobin, serum - 02/19/19 08:20 Myoglobin, serum 67.0 ng/mL 10.0-92.0 Serum or plasma lithium measurement (mol es/volume) - 02/19/19 08:20 BNP level 322.2 pg/mL <100.0 Fibrin D-dimer FEU measurement in platel et poor plasma (mass/volume) - 02/19/19 08:20 Fibrin D-dimer FEU measurement in platelet poor plasma (mass/volume) 1.04 ug/mL 0.00-0.49 Bacterial blood culture - 02/19/19 08:20 Bacterial blood culture NG NRG Bacterial blood culture - 02/19/19 08:53 Bacterial blood culture NG NRG Complete blood count (CBC) with automate d white blood cell (WBC) differential - 04/19/19 10:35 Blood leukocytes automated count (number/volume) 15.9 10*3/uL 4.3-11.0 Blood erythrocytes automated count (number/volume) 3.48 10*6/uL 4.35-5.85 Venous blood hemoglobin measurement (mass/volume) 9.2 g/dL 11.5-16.0 Blood hematocrit (volume fraction) 29 % 35-52 Automated erythrocyte mean corpuscular volume 84 [ foz_us] 80-99 Automated erythrocyte mean corpuscular h emoglobin (mass per erythrocyte) 26 pg 25-34 Automated erythrocyte mean corpuscular h emoglobin concentration measurement (mass/volume) 32 g/dL 32-36 Automated erythrocyte distribution width ratio 15. 7 % 10.0- 14.5 Automated blood platelet count (count/volume) 291 10*3/uL 130-400 Automated blood platelet mean volume measurement 9.2 [foz_us] 7.4-10.4 Automated blood neutrophils/100 leukocytes 89 % 42-75 Automated blood lymphocytes/100 leukocytes 7 % 12-44 Blood monocytes/100 leukocytes 5 % 0-12 Automated blood eosinophils/100 leukocytes 0 % 0-10 Automated blood basophils/100 leukocytes 0 % 0-10 Blood neutrophils automated count (number/volume) 14.1 10*3 1.8-7.8 Blood lymphocytes automated count (number/volume) 1.0 10*3 1.0-4.0 Blood monocytes automated count (number/volume) 0. 8 10*3 0.0-1.0 Automated eosinophil count 0.0 10*3/uL 0 .0-0.3 Automated blood basophil count (count/volume) 0.0 10*3/uL 0.0-0.1 Blood lactic acid measurement (moles/vol ume) - 04/19/19 10:35 Blood lactic acid measurement (moles/volume) 1.52 mmol/L 0.50-2.00 PT panel in platelet poor plasma by coag ulation assay - 04/19/19 10:35 Prothrombin time (PT) in platelet poor plasma by coagu lation assay 18.8 s 12.2-14.7 INR in platelet poor plasma or blood by coagulation as say 1.5 0.8-1.4 Activated partial thromboplastin time (a PTT) in platelet poor plasma bycoagulation assay - 04/19/19 10:35 Activated partial thromboplastin time (a PTT) in platelet poor plasma bycoagulation assay 37 s 24-35 Manual absolute plasma cell count - 03/31 10:35 Blood monocytes/100 leukocytes 2 % NRG Manual blood segmented neutrophils/100 leukocytes 82 % NRG Blood band neutrophils/100 leukocytes 7 % NRG Manual blood lymphocytes/100 leukocytes 9 % NRG Manual eosinophils/100 leukocytes in nose 0 % NRG Manual blood basophils/100 leukocytes 0 % NRG Blood polychromasia detection by light microscopy SLIGHT NRG Blood anisocytosis detection by light microscopy S LIGHT NRG Comprehensive metabolic panel - 04/19/19 10:35 Serum or plasma sodium measurement (moles/volume) 133 mmol/L 135-145 Serum or plasma potassium measurement (moles/volume) 4.4 mmol/L 3.6-5.0 Serum or plasma chloride measurement (moles/volume) 100 mmol/L 98-107 Carbon dioxide 22 mmol/L 21-32 Serum or plasma anion gap determination (moles/volume) 11 mmol/L 5-14 Serum or plasma urea nitrogen measurement (mass/volume ) 18 mg/dL 7-18 Serum or plasma creatinine measurement (mass/volume) 1.82 mg/dL 0.60-1.30 Serum or plasma urea nitrogen/creatinine mass ratio 10 NRG Serum or plasma creatinine measurement w ith calculation of estimated glomerular filtration rate 28 NRG Serum or plasma glucose measurement (mass/volume) 170 mg/dL 70-105 Serum or plasma calcium measurement (mass/volume) 9.6 mg/dL 8.5-10.1 Serum or plasma total bilirubin measurement (mass/volu me) 0.5 mg/dL 0.1-1.0 Serum or plasma alkaline phosphatase rey surement (enzymatic activity/volume) 131 U/L 40-136 Serum or plasma aspartate aminotransfera se measurement (enzymatic activity/volume) 21 U/L 5-34 Serum or plasma alanine aminotransferase measurement (enzymatic activity/volume) 13 U/L 0-55 Serum or plasma protein measurement (mass/volume) 7.8 g/dL 6.4-8.2 Serum or plasma albumin measurement (mass/volume) 3.6 g/dL 3.2-4.5 CALCIUM CORRECTED 9.9 mg/dL 8.5-10.1 Bacterial blood culture - 04/19/19 10:35 Bacterial blood culture NG NRG Bacterial blood culture - 04/19/19 10:43 FREE TEXT EXTERNAL NO SUSCEPTIBILITY PERFORMED NRG QUANTITY OF GROWTH Isolated NRG Bacterial blood culture [id number] NRG Complete urinalysis with reflex to cultu re - 04/19/19 11:45 Urine color determination YELLOW NRG Urine clarity determination CLEAR NR G Urine pH measurement by test strip 7 5-9 Specific gravity of urine by test strip 1.010 1.016-1.022 Urine protein assay by test strip, semi-quantitative 3+ NEGATIVE Urine glucose detection by automated test strip 4+ NEGATIVE Erythrocytes detection in urine sediment by light micr oscopy 2+ NEGATIVE Urine ketones detection by automated test strip NE GATIVE NEGATIVE Urine nitrite detection by test strip NEGATIVE NEGATIVE Urine total bilirubin detection by test strip NEGA TIVE NEGATIVE Urine urobilinogen measurement by automated test strip (mass/volume) NORMAL NORMAL Urine leukocyte esterase detection by dipstick 3+ NEGATIVE Automated urine sediment erythrocyte cou nt by microscopy (number/high power field) [HPF] NRG Automated urine sediment leukocyte count by microscopy (number/high power field) > [HPF] NRG Bacteria detection in urine sediment by light microsco py TRACE NRG Crystals detection in urine sediment by light microsco py NONE NRG Casts detection in urine sediment by light microscopy NONE NRG Mucus detection in urine sediment by light microscopy NEGATIVE NRG Complete urinalysis with reflex to culture YES NRG Bacterial urine culture - 04/19/19 11:45 Bacterial urine culture [id number] NRG COLONY COUNT 60,000 cfu/ml NRG Methicillin resistant Staphylococcus aur eus (MRSA) screening culture - 04/19/19 15:00 Methicillin resistant Staphylococcus aureus (MRSA) scr eening culture NEG NRG Complete blood count (CBC) with automate d white blood cell (WBC) differential - 04/19/19 15:48 Blood leukocytes automated count (number/volume) 19.7 10*3/uL 4.3-11.0 Blood erythrocytes automated count (number/volume) 3.31 10*6/uL 4.35-5.85 Venous blood hemoglobin measurement (mass/volume) 8.7 g/dL 11.5-16.0 Blood hematocrit (volume fraction) 28 % 35-52 Automated erythrocyte mean corpuscular volume 86 [ foz_us] 80-99 Automated erythrocyte mean corpuscular h emoglobin (mass per erythrocyte) 26 pg 25-34 Automated erythrocyte mean corpuscular h emoglobin concentration measurement (mass/volume) 31 g/dL 32-36 Automated erythrocyte distribution width ratio 15. 9 % 10.0- 14.5 Automated blood platelet count (count/volume) 234 10*3/uL 130-400 Automated blood platelet mean volume measurement 9.2 [foz_us] 7.4-10.4 Automated blood neutrophils/100 leukocytes 89 % 42-75 Automated blood lymphocytes/100 leukocytes 4 % 12-44 Blood monocytes/100 leukocytes 7 % 0-12 Automated blood eosinophils/100 leukocytes 0 % 0-10 Automated blood basophils/100 leukocytes 0 % 0-10 Blood neutrophils automated count (number/volume) 17.5 10*3 1.8-7.8 Blood lymphocytes automated count (number/volume) 0.8 10*3 1.0-4.0 Blood monocytes automated count (number/volume) 1. 3 10*3 0.0-1.0 Automated eosinophil count 0.0 10*3/uL 0 .0-0.3 Automated blood basophil count (count/volume) 0.0 10*3/uL 0.0-0.1 Blood lactic acid measurement (moles/vol ume) - 04/19/19 15:48 Blood lactic acid measurement (moles/volume) 1.86 mmol/L 0.50-2.00 Whole blood basic metabolic panel - 03/31 15:48 Serum or plasma sodium measurement (moles/volume) 136 mmol/L 135-145 Serum or plasma potassium measurement (moles/volume) 4.5 mmol/L 3.6-5.0 Serum or plasma chloride measurement (moles/volume) 103 mmol/L 98-107 Carbon dioxide 23 mmol/L 21-32 Serum or plasma anion gap determination (moles/volume) 10 mmol/L 5-14 Serum or plasma urea nitrogen measurement (mass/volume ) 18 mg/dL 7-18 Serum or plasma creatinine measurement (mass/volume) 1.81 mg/dL 0.60-1.30 Serum or plasma urea nitrogen/creatinine mass ratio 10 NRG Serum or plasma creatinine measurement w ith calculation of estimated glomerular filtration rate 28 NRG Serum or plasma glucose measurement (mass/volume) 109 mg/dL 70-105 Serum or plasma calcium measurement (mass/volume) 8.6 mg/dL 8.5-10.1 Serum or plasma phosphate measurement (m ass/volume) - 04/19/19 15:48 Serum or plasma phosphate measurement (mass/volume) 3.4 mg/dL 2.3-4.7 Magnesium - 04/19/19 15:48 Magnesium 1.5 mg/dL 1.8-2.4 Arterial blood gas measurement - 9 16:43 Blood pCO2 36 mm[Hg] 35-45 Blood pO2 70 mm[Hg] 79-93 Arterial blood bicarbonate measurement (moles/volume) 21 mmol/L 23-27 Arterial blood base excess by calculation -2.8 mmo l/L -2.5-2.5 Arterial blood oxygen saturation measurement 93 % 94-100 * Inhaled oxygen flow rate 2 L NRG Arterial blood pH measurement with patient temperature correction 7.39 7.37-7.43 Arterial blood carbon dioxide, total measurement (mole s/volume) 22.2 mmol/L 21.0-31.0 Body site RIGHT RADIAL NRG Assessment of wrist artery patency prior to arterial p uncture POSITIVE NRG Setting of ventilation mode NO NR G Measurement of body temperature 100.4 NRG Capillary blood glucose measurement by g lucometer (mass/volume) - 04/20/19 01:14 Capillary blood glucose measurement by glucometer (mas s/volume) 158 mg/dL 70-110 Complete blood count (CBC) with automate d white blood cell (WBC) differential - 04/20/19 03:05 Blood leukocytes automated count (number/volume) 12.4 10*3/uL 4.3-11.0 Blood erythrocytes automated count (number/volume) 2.71 10*6/uL 4.35-5.85 Venous blood hemoglobin measurement (mass/volume) 7.1 g/dL 11.5-16.0 Blood hematocrit (volume fraction) 23 % 35-52 Automated erythrocyte mean corpuscular volume 86 [ foz_us] 80-99 Automated erythrocyte mean corpuscular h emoglobin (mass per erythrocyte) 26 pg 25-34 Automated erythrocyte mean corpuscular h emoglobin concentration measurement (mass/volume) 31 g/dL 32-36 Automated erythrocyte distribution width ratio 15. 7 % 10.0- 14.5 Automated blood platelet count (count/volume) 200 10*3/uL 130-400 Automated blood platelet mean volume measurement 8.7 [foz_us] 7.4-10.4 Automated blood neutrophils/100 leukocytes 81 % 42-75 Automated blood lymphocytes/100 leukocytes 12 % 12-44 Blood monocytes/100 leukocytes 7 % 0-12 Automated blood eosinophils/100 leukocytes 0 % 0-10 Automated blood basophils/100 leukocytes 0 % 0-10 Blood neutrophils automated count (number/volume) 10.0 10*3 1.8-7.8 Blood lymphocytes automated count (number/volume) 1.5 10*3 1.0-4.0 Blood monocytes automated count (number/volume) 0. 9 10*3 0.0-1.0 Automated eosinophil count 0.0 10*3/uL 0 .0-0.3 Automated blood basophil count (count/volume) 0.0 10*3/uL 0.0-0.1 Comprehensive metabolic panel - 04/20/19 03:05 Serum or plasma sodium measurement (moles/volume) 135 mmol/L 135-145 Serum or plasma potassium measurement (moles/volume) 3.8 mmol/L 3.6-5.0 Serum or plasma chloride measurement (moles/volume) 104 mmol/L 98-107 Carbon dioxide 19 mmol/L 21-32 Serum or plasma anion gap determination (moles/volume) 12 mmol/L 5-14 Serum or plasma urea nitrogen measurement (mass/volume ) 18 mg/dL 7-18 Serum or plasma creatinine measurement (mass/volume) 1.94 mg/dL 0.60-1.30 Serum or plasma urea nitrogen/creatinine mass ratio 9 NRG Serum or plasma creatinine measurement w ith calculation of estimated glomerular filtration rate 26 NRG Serum or plasma glucose measurement (mass/volume) 132 mg/dL 70-105 Serum or plasma calcium measurement (mass/volume) 8.1 mg/dL 8.5-10.1 Serum or plasma total bilirubin measurement (mass/volu me) 0.6 mg/dL 0.1-1.0 Serum or plasma alkaline phosphatase rey surement (enzymatic activity/volume) 83 U/L 40-136 Serum or plasma aspartate aminotransfera se measurement (enzymatic activity/volume) 19 U/L 5-34 Serum or plasma alanine aminotransferase measurement (enzymatic activity/volume) 14 U/L 0-55 Serum or plasma protein measurement (mass/volume) 5.9 g/dL 6.4-8.2 Serum or plasma albumin measurement (mass/volume) 2.7 g/dL 3.2-4.5 CALCIUM CORRECTED 9.1 mg/dL 8.5-10.1 Serum or plasma phosphate measurement (m ass/volume) - 04/20/19 03:05 Serum or plasma phosphate measurement (mass/volume) 4.7 mg/dL 2.3-4.7 Magnesium - 04/20/19 03:05 Magnesium 1.5 mg/dL 1.8-2.4 Automated reticulocyte percentage - 05/01 03:05 Blood erythrocytes automated count (number/volume) 2.71 10*6/uL 4.35-5.85 Blood reticulocytes count (number/volume) 58 10*9/ L 24-90 Blood reticulocytes/100 erythrocytes 2.13 % 0.50-2.40 Complete urinalysis with reflex to cultu re - 04/20/19 03:45 Urine color determination YELLOW NRG Urine clarity determination SL CLOUDY N RG Urine pH measurement by test strip 5 5-9 Specific gravity of urine by test strip 1.015 1.016-1.022 Urine protein assay by test strip, semi-quantitative 2+ NEGATIVE Urine glucose detection by automated test strip 3+ NEGATIVE Erythrocytes detection in urine sediment by light micr oscopy 2+ NEGATIVE Urine ketones detection by automated test strip NE GATIVE NEGATIVE Urine nitrite detection by test strip NEGATIVE NEGATIVE Urine total bilirubin detection by test strip NEGA TIVE NEGATIVE Urine urobilinogen measurement by automated test strip (mass/volume) NORMAL NORMAL Urine leukocyte esterase detection by dipstick 3+ NEGATIVE Automated urine sediment erythrocyte cou nt by microscopy (number/high power field) NONE NRG Automated urine sediment leukocyte count by microscopy (number/high power field) [HPF] NRG Bacteria detection in urine sediment by light microsco py FEW NRG Squamous epithelial cells detection in u rine sediment by light microscopy RARE NRG Crystals detection in urine sediment by light microsco py NONE NRG Casts detection in urine sediment by light microscopy PRESENT NRG Mucus detection in urine sediment by light microscopy SMALL NRG Complete urinalysis with reflex to culture YES NRG Yeast detection in urine sediment by light microscopy MODERATE NRG Granular casts detection in urine sediment by light mi croscopy 2-5 NRG Bacterial urine culture - 04/20/19 03:45 Bacterial urine culture [id number] NRG COLONY COUNT 70,000 cfu/ml NRG Serum iron and total iron binding capaci ty panel - 04/20/19 13:04 TIBC See Est TIBC 280-380 UIBC 205 % 55-450 Serum or plasma iron measurement (mass/volume) < % 35-180 Total iron binding capacity and transferrin saturation measurement See Est %Sat 15-50 Serum or plasma ferritin measurement (mass/volume) 195.5 % 20.0-177.0 EST TIBC - 04/20/19 13:04 EST TIBC 215 % 280-380 EST %SATURATION - 04/20/19 13:04 EST %SATURATION 5 % 15-50 Complete blood count (CBC) with automate d white blood cell (WBC) differential - 04/21/19 04:55 Blood leukocytes automated count (number/volume) 13.1 10*3/uL 4.3-11.0 Blood erythrocytes automated count (number/volume) 2.90 10*6/uL 4.35-5.85 Venous blood hemoglobin measurement (mass/volume) 7.6 g/dL 11.5-16.0 Blood hematocrit (volume fraction) 25 % 35-52 Automated erythrocyte mean corpuscular volume 87 [ foz_us] 80-99 Automated erythrocyte mean corpuscular h emoglobin (mass per erythrocyte) 26 pg 25-34 Automated erythrocyte mean corpuscular h emoglobin concentration measurement (mass/volume) 30 g/dL 32-36 Automated erythrocyte distribution width ratio 16. 3 % 10.0- 14.5 Automated blood platelet count (count/volume) 253 10*3/uL 130-400 Automated blood platelet mean volume measurement 9.5 [foz_us] 7.4-10.4 Automated blood neutrophils/100 leukocytes 87 % 42-75 Automated blood lymphocytes/100 leukocytes 5 % 12-44 Blood monocytes/100 leukocytes 6 % 0-12 Automated blood eosinophils/100 leukocytes 1 % 0-10 Automated blood basophils/100 leukocytes 0 % 0-10 Blood neutrophils automated count (number/volume) 11.4 10*3 1.8-7.8 Blood lymphocytes automated count (number/volume) 0.7 10*3 1.0-4.0 Blood monocytes automated count (number/volume) 0. 8 10*3 0.0-1.0 Automated eosinophil count 0.2 10*3/uL 0 .0-0.3 Automated blood basophil count (count/volume) 0.0 10*3/uL 0.0-0.1 Whole blood basic metabolic panel - 06/01 04:55 Serum or plasma sodium measurement (moles/volume) 138 mmol/L 135-145 Serum or plasma potassium measurement (moles/volume) 3.9 mmol/L 3.6-5.0 Serum or plasma chloride measurement (moles/volume) 105 mmol/L 98-107 Carbon dioxide 22 mmol/L 21-32 Serum or plasma anion gap determination (moles/volume) 11 mmol/L 5-14 Serum or plasma urea nitrogen measurement (mass/volume ) 21 mg/dL 7-18 Serum or plasma creatinine measurement (mass/volume) 2.01 mg/dL 0.60-1.30 Serum or plasma urea nitrogen/creatinine mass ratio 10 NRG Serum or plasma creatinine measurement w ith calculation of estimated glomerular filtration rate 25 NRG Serum or plasma glucose measurement (mass/volume) 101 mg/dL 70-105 Serum or plasma calcium measurement (mass/volume) 8.9 mg/dL 8.5-10.1 Serum or plasma phosphate measurement (m ass/volume) - 04/21/19 04:55 Serum or plasma phosphate measurement (mass/volume) 4.1 mg/dL 2.3-4.7 Magnesium - 04/21/19 04:55 Magnesium 1.7 mg/dL 1.8-2.4 Capillary blood glucose measurement by g lucometer (mass/volume) - 04/21/19 20:32 Capillary blood glucose measurement by glucometer (mas s/volume) 166 mg/dL 70-110 Complete blood count (CBC) with automate d white blood cell (WBC) differential - 04/22/19 05:10 Blood leukocytes automated count (number/volume) 9.6 10*3/uL 4.3-11.0 Blood erythrocytes automated count (number/volume) 2.73 10*6/uL 4.35-5.85 Venous blood hemoglobin measurement (mass/volume) 7.1 g/dL 11.5-16.0 Blood hematocrit (volume fraction) 23 % 35-52 Automated erythrocyte mean corpuscular volume 86 [ foz_us] 80-99 Automated erythrocyte mean corpuscular h emoglobin (mass per erythrocyte) 26 pg 25-34 Automated erythrocyte mean corpuscular h emoglobin concentration measurement (mass/volume) 30 g/dL 32-36 Automated erythrocyte distribution width ratio 16. 0 % 10.0- 14.5 Automated blood platelet count (count/volume) 247 10*3/uL 130-400 Automated blood platelet mean volume measurement 9.5 [foz_us] 7.4-10.4 Automated blood neutrophils/100 leukocytes 80 % 42-75 Automated blood lymphocytes/100 leukocytes 11 % 12-44 Blood monocytes/100 leukocytes 7 % 0-12 Automated blood eosinophils/100 leukocytes 1 % 0-10 Automated blood basophils/100 leukocytes 0 % 0-10 Blood neutrophils automated count (number/volume) 7.7 10*3 1.8-7.8 Blood lymphocytes automated count (number/volume) 1.1 10*3 1.0-4.0 Blood monocytes automated count (number/volume) 0. 7 10*3 0.0-1.0 Automated eosinophil count 0.1 10*3/uL 0 .0-0.3 Automated blood basophil count (count/volume) 0.0 10*3/uL 0.0-0.1 Whole blood basic metabolic panel - 04/13 05:10 Serum or plasma sodium measurement (moles/volume) 136 mmol/L 135-145 Serum or plasma potassium measurement (moles/volume) 3.9 mmol/L 3.6-5.0 Serum or plasma chloride measurement (moles/volume) 105 mmol/L 98-107 Carbon dioxide 19 mmol/L 21-32 Serum or plasma anion gap determination (moles/volume) 12 mmol/L 5-14 Serum or plasma urea nitrogen measurement (mass/volume ) 21 mg/dL 7-18 Serum or plasma creatinine measurement (mass/volume) 2.19 mg/dL 0.60-1.30 Serum or plasma urea nitrogen/creatinine mass ratio 10 NRG Serum or plasma creatinine measurement w ith calculation of estimated glomerular filtration rate 22 NRG Serum or plasma glucose measurement (mass/volume) 109 mg/dL 70-105 Serum or plasma calcium measurement (mass/volume) 8.9 mg/dL 8.5-10.1 Serum or plasma phosphate measurement (m ass/volume) - 04/22/19 05:10 Serum or plasma phosphate measurement (mass/volume) 3.1 mg/dL 2.3-4.7 Magnesium - 04/22/19 05:10 Magnesium 2.1 mg/dL 1.8-2.4 Serum or plasma lithium measurement (mol es/volume) - 04/22/19 05:10 BNP PT 391.9 pg/mL <100.0 Blood type T Indirect antibody screen pa yris - 04/22/19 08:15 WRISTBAND NUMBER [id number] NRG ABO+Rh group AP NRG Blood group antibody screen NEGATIVE NR G Complete blood count (CBC) with automate d white blood cell (WBC) differential - 04/23/19 03:35 Blood leukocytes automated count (number/volume) 10.4 10*3/uL 4.3-11.0 Blood erythrocytes automated count (number/volume) 2.97 10*6/uL 4.35-5.85 Venous blood hemoglobin measurement (mass/volume) 7.7 g/dL 11.5-16.0 Blood hematocrit (volume fraction) 26 % 35-52 Automated erythrocyte mean corpuscular volume 86 [ foz_us] 80-99 Automated erythrocyte mean corpuscular h emoglobin (mass per erythrocyte) 26 pg 25-34 Automated erythrocyte mean corpuscular h emoglobin concentration measurement (mass/volume) 30 g/dL 32-36 Automated erythrocyte distribution width ratio 16. 5 % 10.0- 14.5 Automated blood platelet count (count/volume) 285 10*3/uL 130-400 Automated blood platelet mean volume measurement 9.6 [foz_us] 7.4-10.4 Automated blood neutrophils/100 leukocytes 79 % 42-75 Automated blood lymphocytes/100 leukocytes 10 % 12-44 Blood monocytes/100 leukocytes 8 % 0-12 Automated blood eosinophils/100 leukocytes 2 % 0-10 Automated blood basophils/100 leukocytes 0 % 0-10 Blood neutrophils automated count (number/volume) 8.2 10*3 1.8-7.8 Blood lymphocytes automated count (number/volume) 1.1 10*3 1.0-4.0 Blood monocytes automated count (number/volume) 0. 9 10*3 0.0-1.0 Automated eosinophil count 0.2 10*3/uL 0 .0-0.3 Automated blood basophil count (count/volume) 0.0 10*3/uL 0.0-0.1 Whole blood basic metabolic panel - 04/13 10/01 03:35 Serum or plasma sodium measurement (moles/volume) 139 mmol/L 135-145 Serum or plasma potassium measurement (moles/volume) 4.0 mmol/L 3.6-5.0 Serum or plasma chloride measurement (moles/volume) 107 mmol/L 98-107 Carbon dioxide 17 mmol/L 21-32 Serum or plasma anion gap determination (moles/volume) 15 mmol/L 5-14 Serum or plasma urea nitrogen measurement (mass/volume ) 22 mg/dL 7-18 Serum or plasma creatinine measurement (mass/volume) 2.58 mg/dL 0.60-1.30 Serum or plasma urea nitrogen/creatinine mass ratio 9 NRG Serum or plasma creatinine measurement w ith calculation of estimated glomerular filtration rate 18 NRG Serum or plasma glucose measurement (mass/volume) 116 mg/dL 70-105 Serum or plasma calcium measurement (mass/volume) 8.9 mg/dL 8.5-10.1 Serum or plasma phosphate measurement (m ass/volume) - 04/23/19 03:35 Serum or plasma phosphate measurement (mass/volume) 4.3 mg/dL 2.3-4.7 Magnesium - 04/23/19 03:35 Magnesium 2.0 mg/dL 1.8-2.4 OCCULT BLOOD STOOL - 04/23/19 18:30 Stool gastrointestinal hemoglobin detection POSITI VE NEGATIVE Capillary blood glucose measurement by g lucometer (mass/volume) - 04/23/19 20:37 Capillary blood glucose measurement by glucometer (mas s/volume) 186 mg/dL 70-110 Arterial blood gas measurement - 9 03:16 Blood pCO2 42 mm[Hg] 35-45 Blood pO2 87 mm[Hg] 79-93 Arterial blood bicarbonate measurement (moles/volume) 24 mmol/L 23-27 Arterial blood base excess by calculation -1.2 mmo l/L -2.5-2.5 Arterial blood oxygen saturation measurement 98 % 94-100 * Inhaled oxygen flow rate 35% NRG Arterial blood pH measurement with patient temperature correction 7.36 7.37-7.43 Arterial blood carbon dioxide, total measurement (mole s/volume) 24.9 mmol/L 21.0-31.0 Body site RIGHT RADIAL NRG Assessment of wrist artery patency prior to arterial p uncture YES-POS NRG Setting of ventilation mode NO NR G Measurement of body temperature 96.9 NRG Complete blood count (CBC) with automate d white blood cell (WBC) differential - 04/24/19 03:25 Blood leukocytes automated count (number/volume) 10.3 10*3/uL 4.3-11.0 Blood erythrocytes automated count (number/volume) 2.83 10*6/uL 4.35-5.85 Venous blood hemoglobin measurement (mass/volume) 7.3 g/dL 11.5-16.0 Blood hematocrit (volume fraction) 25 % 35-52 Automated erythrocyte mean corpuscular volume 87 [ foz_us] 80-99 Automated erythrocyte mean corpuscular h emoglobin (mass per erythrocyte) 26 pg 25-34 Automated erythrocyte mean corpuscular h emoglobin concentration measurement (mass/volume) 30 g/dL 32-36 Automated erythrocyte distribution width ratio 16. 2 % 10.0- 14.5 Automated blood platelet count (count/volume) 283 10*3/uL 130-400 Automated blood platelet mean volume measurement 9.6 [foz_us] 7.4-10.4 Automated blood neutrophils/100 leukocytes 78 % 42-75 Automated blood lymphocytes/100 leukocytes 13 % 12-44 Blood monocytes/100 leukocytes 8 % 0-12 Automated blood eosinophils/100 leukocytes 2 % 0-10 Automated blood basophils/100 leukocytes 0 % 0-10 Blood neutrophils automated count (number/volume) 8.0 10*3 1.8-7.8 Blood lymphocytes automated count (number/volume) 1.3 10*3 1.0-4.0 Blood monocytes automated count (number/volume) 0. 8 10*3 0.0-1.0 Automated eosinophil count 0.2 10*3/uL 0 .0-0.3 Automated blood basophil count (count/volume) 0.0 10*3/uL 0.0-0.1 Automated reticulocyte percentage - 04/13 11/01 03:25 Blood reticulocytes count (number/volume) 77 10*9/ L 24-90 Blood reticulocytes/100 erythrocytes 2.73 % 0.50-2.40 Comprehensive metabolic panel - 04/24/19 03:25 Serum or plasma sodium measurement (moles/volume) 140 mmol/L 135-145 Serum or plasma potassium measurement (moles/volume) 3.9 mmol/L 3.6-5.0 Serum or plasma chloride measurement (moles/volume) 109 mmol/L 98-107 Carbon dioxide 19 mmol/L 21-32 Serum or plasma anion gap determination (moles/volume) 12 mmol/L 5-14 Serum or plasma urea nitrogen measurement (mass/volume ) 22 mg/dL 7-18 Serum or plasma creatinine measurement (mass/volume) 2.38 mg/dL 0.60-1.30 Serum or plasma urea nitrogen/creatinine mass ratio 9 NRG Serum or plasma creatinine measurement w ith calculation of estimated glomerular filtration rate 20 NRG Serum or plasma glucose measurement (mass/volume) 120 mg/dL 70-105 Serum or plasma calcium measurement (mass/volume) 8.6 mg/dL 8.5-10.1 Serum or plasma total bilirubin measurement (mass/volu me) 0.2 mg/dL 0.1-1.0 Serum or plasma alkaline phosphatase rey surement (enzymatic activity/volume) 147 U/L 40-136 Serum or plasma aspartate aminotransfera se measurement (enzymatic activity/volume) 14 U/L 5-34 Serum or plasma alanine aminotransferase measurement (enzymatic activity/volume) 12 U/L 0-55 Serum or plasma protein measurement (mass/volume) 6.3 g/dL 6.4-8.2 Serum or plasma albumin measurement (mass/volume) 2.7 g/dL 3.2-4.5 CALCIUM CORRECTED 9.6 mg/dL 8.5-10.1 Serum or plasma phosphate measurement (m ass/volume) - 04/24/19 03:25 Serum or plasma phosphate measurement (mass/volume) 3.5 mg/dL 2.3-4.7 Magnesium - 04/24/19 03:25 Magnesium 1.6 mg/dL 1.8-2.4 [id number] - 04/24/19 03:25 [id number] 0.79 ng/mL 0.80-2.00 Capillary blood glucose measurement by g lucometer (mass/volume) - 04/24/19 11:19 Capillary blood glucose measurement by glucometer (mas s/volume) 150 mg/dL 70-110 Capillary blood glucose measurement by g lucometer (mass/volume) - 04/24/19 16:27 Capillary blood glucose measurement by glucometer (mas s/volume) 115 mg/dL 70-110 Capillary blood glucose measurement by g lucometer (mass/volume) - 04/24/19 21:21 Capillary blood glucose measurement by glucometer (mas s/volume) 244 mg/dL 70-110 Complete blood count (CBC) with automate d white blood cell (WBC) differential - 04/25/19 03:01 Blood leukocytes automated count (number/volume) 11.2 10*3/uL 4.3-11.0 Blood erythrocytes automated count (number/volume) 2.89 10*6/uL 4.35-5.85 Venous blood hemoglobin measurement (mass/volume) 7.4 g/dL 11.5-16.0 Blood hematocrit (volume fraction) 26 % 35-52 Automated erythrocyte mean corpuscular volume 88 [ foz_us] 80-99 Automated erythrocyte mean corpuscular h emoglobin (mass per erythrocyte) 26 pg 25-34 Automated erythrocyte mean corpuscular h emoglobin concentration measurement (mass/volume) 29 g/dL 32-36 Automated erythrocyte distribution width ratio 17. 2 % 10.0- 14.5 Automated blood platelet count (count/volume) 346 10*3/uL 130-400 Automated blood platelet mean volume measurement 9.4 [foz_us] 7.4-10.4 Automated blood neutrophils/100 leukocytes 81 % 42-75 Automated blood lymphocytes/100 leukocytes 9 % 12-44 Blood monocytes/100 leukocytes 8 % 0-12 Automated blood eosinophils/100 leukocytes 1 % 0-10 Automated blood basophils/100 leukocytes 0 % 0-10 Blood neutrophils automated count (number/volume) 9.1 10*3 1.8-7.8 Blood lymphocytes automated count (number/volume) 1.0 10*3 1.0-4.0 Blood monocytes automated count (number/volume) 0. 9 10*3 0.0-1.0 Automated eosinophil count 0.1 10*3/uL 0 .0-0.3 Automated blood basophil count (count/volume) 0.0 10*3/uL 0.0-0.1 Whole blood basic metabolic panel - 04/13 11/29 03:01 Serum or plasma sodium measurement (moles/volume) 143 mmol/L 135-145 Serum or plasma potassium measurement (moles/volume) 3.8 mmol/L 3.6-5.0 Serum or plasma chloride measurement (moles/volume) 109 mmol/L 98-107 Carbon dioxide 20 mmol/L 21-32 Serum or plasma anion gap determination (moles/volume) 14 mmol/L 5-14 Serum or plasma urea nitrogen measurement (mass/volume ) 20 mg/dL 7-18 Serum or plasma creatinine measurement (mass/volume) 2.27 mg/dL 0.60-1.30 Serum or plasma urea nitrogen/creatinine mass ratio 9 NRG Serum or plasma creatinine measurement w ith calculation of estimated glomerular filtration rate 21 NRG Serum or plasma glucose measurement (mass/volume) 126 mg/dL 70-105 Serum or plasma calcium measurement (mass/volume) 8.7 mg/dL 8.5-10.1 Serum or plasma phosphate measurement (m ass/volume) - 04/25/19 03:01 Serum or plasma phosphate measurement (mass/volume) 3.0 mg/dL 2.3-4.7 Magnesium - 04/25/19 03:01 Magnesium 1.8 mg/dL 1.8-2.4 Capillary blood glucose measurement by g lucometer (mass/volume) - 04/25/19 11:19 Capillary blood glucose measurement by glucometer (mas s/volume) 188 mg/dL 70-110 Capillary blood glucose measurement by g lucometer (mass/volume) - 04/25/19 16:43 Capillary blood glucose measurement by glucometer (mas s/volume) 117 mg/dL 70-110 Capillary blood glucose measurement by g lucometer (mass/volume) - 04/25/19 20:59 Capillary blood glucose measurement by glucometer (mas s/volume) 246 mg/dL 70-110 Complete blood count (CBC) with automate d white blood cell (WBC) differential - 04/26/19 05:15 Blood leukocytes automated count (number/volume) 11.0 10*3/uL 4.3-11.0 Blood erythrocytes automated count (number/volume) 2.81 10*6/uL 4.35-5.85 Venous blood hemoglobin measurement (mass/volume) 7.3 g/dL 11.5-16.0 Blood hematocrit (volume fraction) 25 % 35-52 Automated erythrocyte mean corpuscular volume 89 [ foz_us] 80-99 Automated erythrocyte mean corpuscular h emoglobin (mass per erythrocyte) 26 pg 25-34 Automated erythrocyte mean corpuscular h emoglobin concentration measurement (mass/volume) 29 g/dL 32-36 Automated erythrocyte distribution width ratio 17. 1 % 10.0- 14.5 Automated blood platelet count (count/volume) 355 10*3/uL 130-400 Automated blood platelet mean volume measurement 9.0 [foz_us] 7.4-10.4 Automated blood neutrophils/100 leukocytes 80 % 42-75 Automated blood lymphocytes/100 leukocytes 10 % 12-44 Blood monocytes/100 leukocytes 8 % 0-12 Automated blood eosinophils/100 leukocytes 2 % 0-10 Automated blood basophils/100 leukocytes 0 % 0-10 Blood neutrophils automated count (number/volume) 8.8 10*3 1.8-7.8 Blood lymphocytes automated count (number/volume) 1.1 10*3 1.0-4.0 Blood monocytes automated count (number/volume) 0. 8 10*3 0.0-1.0 Automated eosinophil count 0.2 10*3/uL 0 .0-0.3 Automated blood basophil count (count/volume) 0.0 10*3/uL 0.0-0.1 Whole blood basic metabolic panel - 04/13 12/30 05:15 Serum or plasma sodium measurement (moles/volume) 141 mmol/L 135-145 Serum or plasma potassium measurement (moles/volume) 3.8 mmol/L 3.6-5.0 Serum or plasma chloride measurement (moles/volume) 105 mmol/L 98-107 Carbon dioxide 25 mmol/L 21-32 Serum or plasma anion gap determination (moles/volume) 11 mmol/L 5-14 Serum or plasma urea nitrogen measurement (mass/volume ) 18 mg/dL 7-18 Serum or plasma creatinine measurement (mass/volume) 2.16 mg/dL 0.60-1.30 Serum or plasma urea nitrogen/creatinine mass ratio 8 NRG Serum or plasma creatinine measurement w ith calculation of estimated glomerular filtration rate 23 NRG Serum or plasma glucose measurement (mass/volume) 112 mg/dL 70-105 Serum or plasma calcium measurement (mass/volume) 8.6 mg/dL 8.5-10.1 Serum or plasma phosphate measurement (m ass/volume) - 04/26/19 05:15 Serum or plasma phosphate measurement (mass/volume) 3.3 mg/dL 2.3-4.7 Magnesium - 04/26/19 05:15 Magnesium 1.8 mg/dL 1.6-2.4 Capillary blood glucose measurement by g lucometer (mass/volume) - 04/26/19 11:11 Capillary blood glucose measurement by glucometer (mas s/volume) 201 mg/dL 70-110 Capillary blood glucose measurement by g lucometer (mass/volume) - 04/26/19 15:45 Capillary blood glucose measurement by glucometer (mas s/volume) 161 mg/dL 70-110 Capillary blood glucose measurement by g lucometer (mass/volume) - 04/26/19 19:20 Capillary blood glucose measurement by glucometer (mas s/volume) 158 mg/dL 70-110 Complete blood count (CBC) with automate d white blood cell (WBC) differential - 04/27/19 04:21 Blood leukocytes automated count (number/volume) 11.4 10*3/uL 4.3-11.0 Blood erythrocytes automated count (number/volume) 3.06 10*6/uL 4.35-5.85 Venous blood hemoglobin measurement (mass/volume) 7.9 g/dL 11.5-16.0 Blood hematocrit (volume fraction) 27 % 35-52 Automated erythrocyte mean corpuscular volume 88 [ foz_us] 80-99 Automated erythrocyte mean corpuscular h emoglobin (mass per erythrocyte) 26 pg 25-34 Automated erythrocyte mean corpuscular h emoglobin concentration measurement (mass/volume) 29 g/dL 32-36 Automated erythrocyte distribution width ratio 17. 4 % 10.0- 14.5 Automated blood platelet count (count/volume) 412 10*3/uL 130-400 Automated blood platelet mean volume measurement 9.3 [foz_us] 7.4-10.4 Automated blood neutrophils/100 leukocytes 79 % 42-75 Automated blood lymphocytes/100 leukocytes 11 % 12-44 Blood monocytes/100 leukocytes 7 % 0-12 Automated blood eosinophils/100 leukocytes 3 % 0-10 Automated blood basophils/100 leukocytes 0 % 0-10 Blood neutrophils automated count (number/volume) 9.0 10*3 1.8-7.8 Blood lymphocytes automated count (number/volume) 1.3 10*3 1.0-4.0 Blood monocytes automated count (number/volume) 0. 8 10*3 0.0-1.0 Automated eosinophil count 0.3 10*3/uL 0 .0-0.3 Automated blood basophil count (count/volume) 0.0 10*3/uL 0.0-0.1 Whole blood basic metabolic panel - 04/13 01/29 04:21 Serum or plasma sodium measurement (moles/volume) 139 mmol/L 135-145 Serum or plasma potassium measurement (moles/volume) 3.7 mmol/L 3.6-5.0 Serum or plasma chloride measurement (moles/volume) 101 mmol/L 98-107 Carbon dioxide 25 mmol/L 21-32 Serum or plasma anion gap determination (moles/volume) 13 mmol/L 5-14 Serum or plasma urea nitrogen measurement (mass/volume ) 19 mg/dL 7-18 Serum or plasma creatinine measurement (mass/volume) 2.04 mg/dL 0.60-1.30 Serum or plasma urea nitrogen/creatinine mass ratio 9 NRG Serum or plasma creatinine measurement w ith calculation of estimated glomerular filtration rate 24 NRG Serum or plasma glucose measurement (mass/volume) 114 mg/dL 70-105 Serum or plasma calcium measurement (mass/volume) 8.9 mg/dL 8.5-10.1 Serum or plasma phosphate measurement (m ass/volume) - 04/27/19 04:21 Serum or plasma phosphate measurement (mass/volume) 3.8 mg/dL 2.3-4.7 Magnesium - 04/27/19 04:21 Magnesium 1.7 mg/dL 1.6-2.4 Capillary blood glucose measurement by g lucometer (mass/volume) - 04/27/19 05:12 Capillary blood glucose measurement by glucometer (mas s/volume) 125 mg/dL 70-110 Capillary blood glucose measurement by g lucometer (mass/volume) - 04/27/19 11:25 Capillary blood glucose measurement by glucometer (mas s/volume) 191 mg/dL 70-110 Capillary blood glucose measurement by g lucometer (mass/volume) - 04/27/19 15:47 Capillary blood glucose measurement by glucometer (mas s/volume) 189 mg/dL 70-110 Capillary blood glucose measurement by g lucometer (mass/volume) - 04/27/19 20:56 Capillary blood glucose measurement by glucometer (mas s/volume) 199 mg/dL 70-110 Capillary blood glucose measurement by g lucometer (mass/volume) - 04/28/19 06:51 Capillary blood glucose measurement by glucometer (mas s/volume) 150 mg/dL 70-110 Capillary blood glucose measurement by g lucometer (mass/volume) - 04/28/19 11:01 Capillary blood glucose measurement by glucometer (mas s/volume) 146 mg/dL 70-110 Capillary blood glucose measurement by g lucometer (mass/volume) - 04/28/19 16:09 Capillary blood glucose measurement by glucometer (mas s/volume) 212 mg/dL 70-110 Capillary blood glucose measurement by g lucometer (mass/volume) - 04/28/19 21:02 Capillary blood glucose measurement by glucometer (mas s/volume) 132 mg/dL 70-110 Capillary blood glucose measurement by g lucometer (mass/volume) - 04/29/19 05:44 Capillary blood glucose measurement by glucometer (mas s/volume) 135 mg/dL 70-110 Complete blood count (CBC) with automate d white blood cell (WBC) differential - 04/29/19 05:52 Blood leukocytes automated count (number/volume) 11.2 10*3/uL 4.3-11.0 Blood erythrocytes automated count (number/volume) 2.89 10*6/uL 4.35-5.85 Venous blood hemoglobin measurement (mass/volume) 7.6 g/dL 11.5-16.0 Blood hematocrit (volume fraction) 26 % 35-52 Automated erythrocyte mean corpuscular volume 89 [ foz_us] 80-99 Automated erythrocyte mean corpuscular h emoglobin (mass per erythrocyte) 26 pg 25-34 Automated erythrocyte mean corpuscular h emoglobin concentration measurement (mass/volume) 30 g/dL 32-36 Automated erythrocyte distribution width ratio 17. 6 % 10.0- 14.5 Automated blood platelet count (count/volume) 394 10*3/uL 130-400 Automated blood platelet mean volume measurement 8.8 [foz_us] 7.4-10.4 Automated blood neutrophils/100 leukocytes 82 % 42-75 Automated blood lymphocytes/100 leukocytes 10 % 12-44 Blood monocytes/100 leukocytes 6 % 0-12 Automated blood eosinophils/100 leukocytes 2 % 0-10 Automated blood basophils/100 leukocytes 0 % 0-10 Blood neutrophils automated count (number/volume) 9.2 10*3 1.8-7.8 Blood lymphocytes automated count (number/volume) 1.1 10*3 1.0-4.0 Blood monocytes automated count (number/volume) 0. 7 10*3 0.0-1.0 Automated eosinophil count 0.2 10*3/uL 0 .0-0.3 Automated blood basophil count (count/volume) 0.0 10*3/uL 0.0-0.1 Comprehensive metabolic panel - 04/29/19 05:52 Serum or plasma sodium measurement (moles/volume) 141 mmol/L 135-145 Serum or plasma potassium measurement (moles/volume) 3.7 mmol/L 3.6-5.0 Serum or plasma chloride measurement (moles/volume) 102 mmol/L 98-107 Carbon dioxide 27 mmol/L 21-32 Serum or plasma anion gap determination (moles/volume) 12 mmol/L 5-14 Serum or plasma urea nitrogen measurement (mass/volume ) 22 mg/dL 7-18 Serum or plasma creatinine measurement (mass/volume) 2.21 mg/dL 0.60-1.30 Serum or plasma urea nitrogen/creatinine mass ratio 10 NRG Serum or plasma creatinine measurement w ith calculation of estimated glomerular filtration rate 22 NRG Serum or plasma glucose measurement (mass/volume) 121 mg/dL 70-105 Serum or plasma calcium measurement (mass/volume) 9.0 mg/dL 8.5-10.1 Serum or plasma total bilirubin measurement (mass/volu me) 0.4 mg/dL 0.1-1.0 Serum or plasma alkaline phosphatase rey surement (enzymatic activity/volume) 143 U/L 40-136 Serum or plasma aspartate aminotransfera se measurement (enzymatic activity/volume) 15 U/L 5-34 Serum or plasma alanine aminotransferase measurement (enzymatic activity/volume) 14 U/L 0-55 Serum or plasma protein measurement (mass/volume) 6.9 g/dL 6.4-8.2 Serum or plasma albumin measurement (mass/volume) 2.9 g/dL 3.2-4.5 CALCIUM CORRECTED 9.9 mg/dL 8.5-10.1 Capillary blood glucose measurement by g lucometer (mass/volume) - 04/29/19 11:04 Capillary blood glucose measurement by glucometer (mas s/volume) 204 mg/dL 70-110 Capillary blood glucose measurement by g lucometer (mass/volume) - 04/29/19 15:49 Capillary blood glucose measurement by glucometer (mas s/volume) 149 mg/dL 70-110 Capillary blood glucose measurement by g lucometer (mass/volume) - 04/29/19 20:57 Capillary blood glucose measurement by glucometer (mas s/volume) 274 mg/dL 70-110 Complete blood count (CBC) with automate d white blood cell (WBC) differential - 04/30/19 05:20 Blood leukocytes automated count (number/volume) 12.9 10*3/uL 4.3-11.0 Blood erythrocytes automated count (number/volume) 2.78 10*6/uL 4.35-5.85 Venous blood hemoglobin measurement (mass/volume) 7.3 g/dL 11.5-16.0 Blood hematocrit (volume fraction) 25 % 35-52 Automated erythrocyte mean corpuscular volume 90 [ foz_us] 80-99 Automated erythrocyte mean corpuscular h emoglobin (mass per erythrocyte) 26 pg 25-34 Automated erythrocyte mean corpuscular h emoglobin concentration measurement (mass/volume) 29 g/dL 32-36 Automated erythrocyte distribution width ratio 17. 6 % 10.0- 14.5 Automated blood platelet count (count/volume) 363 10*3/uL 130-400 Automated blood platelet mean volume measurement 9.1 [foz_us] 7.4-10.4 Automated blood neutrophils/100 leukocytes 84 % 42-75 Automated blood lymphocytes/100 leukocytes 8 % 12-44 Blood monocytes/100 leukocytes 6 % 0-12 Automated blood eosinophils/100 leukocytes 1 % 0-10 Automated blood basophils/100 leukocytes 0 % 0-10 Blood neutrophils automated count (number/volume) 10.8 10*3 1.8-7.8 Blood lymphocytes automated count (number/volume) 1.1 10*3 1.0-4.0 Blood monocytes automated count (number/volume) 0. 8 10*3 0.0-1.0 Automated eosinophil count 0.2 10*3/uL 0 .0-0.3 Automated blood basophil count (count/volume) 0.0 10*3/uL 0.0-0.1 Comprehensive metabolic panel - 04/30/19 05:20 Serum or plasma sodium measurement (moles/volume) 138 mmol/L 135-145 Serum or plasma potassium measurement (moles/volume) 4.1 mmol/L 3.6-5.0 Serum or plasma chloride measurement (moles/volume) 100 mmol/L 98-107 Carbon dioxide 27 mmol/L 21-32 Serum or plasma anion gap determination (moles/volume) 11 mmol/L 5-14 Serum or plasma urea nitrogen measurement (mass/volume ) 25 mg/dL 7-18 Serum or plasma creatinine measurement (mass/volume) 2.19 mg/dL 0.60-1.30 Serum or plasma urea nitrogen/creatinine mass ratio 11 NRG Serum or plasma creatinine measurement w ith calculation of estimated glomerular filtration rate 22 NRG Serum or plasma glucose measurement (mass/volume) 144 mg/dL 70-105 Serum or plasma calcium measurement (mass/volume) 8.9 mg/dL 8.5-10.1 Serum or plasma total bilirubin measurement (mass/volu me) 0.5 mg/dL 0.1-1.0 Serum or plasma alkaline phosphatase rey surement (enzymatic activity/volume) 189 U/L 40-136 Serum or plasma aspartate aminotransfera se measurement (enzymatic activity/volume) 28 U/L 5-34 Serum or plasma alanine aminotransferase measurement (enzymatic activity/volume) 21 U/L 0-55 Serum or plasma protein measurement (mass/volume) 6.9 g/dL 6.4-8.2 Serum or plasma albumin measurement (mass/volume) 2.9 g/dL 3.2-4.5 CALCIUM CORRECTED 9.8 mg/dL 8.5-10.1 Capillary blood glucose measurement by g lucometer (mass/volume) - 04/30/19 05:42 Capillary blood glucose measurement by glucometer (mas s/volume) 169 mg/dL 70-110 Capillary blood glucose measurement by g lucometer (mass/volume) - 04/30/19 10:49 Capillary blood glucose measurement by glucometer (mas s/volume) 230 mg/dL 70-110 Capillary blood glucose measurement by g lucometer (mass/volume) - 04/30/19 16:00 Capillary blood glucose measurement by glucometer (mas s/volume) 138 mg/dL 70-110 Capillary blood glucose measurement by g lucometer (mass/volume) - 04/30/19 21:34 Capillary blood glucose measurement by glucometer (mas s/volume) 166 mg/dL 70-110 Complete blood count (CBC) with automate d white blood cell (WBC) differential - 05/01/19 05:18 Blood leukocytes automated count (number/volume) 12.3 10*3/uL 4.3-11.0 Blood erythrocytes automated count (number/volume) 2.88 10*6/uL 4.35-5.85 Venous blood hemoglobin measurement (mass/volume) 7.5 g/dL 11.5-16.0 Blood hematocrit (volume fraction) 26 % 35-52 Automated erythrocyte mean corpuscular volume 90 [ foz_us] 80-99 Automated erythrocyte mean corpuscular h emoglobin (mass per erythrocyte) 26 pg 25-34 Automated erythrocyte mean corpuscular h emoglobin concentration measurement (mass/volume) 29 g/dL 32-36 Automated erythrocyte distribution width ratio 18. 5 % 10.0- 14.5 Automated blood platelet count (count/volume) 374 10*3/uL 130-400 Automated blood platelet mean volume measurement 9.0 [foz_us] 7.4-10.4 Automated blood neutrophils/100 leukocytes 84 % 42-75 Automated blood lymphocytes/100 leukocytes 8 % 12-44 Blood monocytes/100 leukocytes 6 % 0-12 Automated blood eosinophils/100 leukocytes 1 % 0-10 Automated blood basophils/100 leukocytes 0 % 0-10 Blood neutrophils automated count (number/volume) 10.4 10*3 1.8-7.8 Blood lymphocytes automated count (number/volume) 1.0 10*3 1.0-4.0 Blood monocytes automated count (number/volume) 0. 8 10*3 0.0-1.0 Automated eosinophil count 0.1 10*3/uL 0 .0-0.3 Automated blood basophil count (count/volume) 0.0 10*3/uL 0.0-0.1 Comprehensive metabolic panel - 05/01/19 05:18 Serum or plasma sodium measurement (moles/volume) 139 mmol/L 135-145 Serum or plasma potassium measurement (moles/volume) 4.1 mmol/L 3.6-5.0 Serum or plasma chloride measurement (moles/volume) 101 mmol/L 98-107 Carbon dioxide 27 mmol/L 21-32 Serum or plasma anion gap determination (moles/volume) 11 mmol/L 5-14 Serum or plasma urea nitrogen measurement (mass/volume ) 24 mg/dL 7-18 Serum or plasma creatinine measurement (mass/volume) 2.17 mg/dL 0.60-1.30 Serum or plasma urea nitrogen/creatinine mass ratio 11 NRG Serum or plasma creatinine measurement w ith calculation of estimated glomerular filtration rate 22 NRG Serum or plasma glucose measurement (mass/volume) 138 mg/dL 70-105 Serum or plasma calcium measurement (mass/volume) 8.9 mg/dL 8.5-10.1 Serum or plasma total bilirubin measurement (mass/volu me) 0.5 mg/dL 0.1-1.0 Serum or plasma alkaline phosphatase rey surement (enzymatic activity/volume) 243 U/L 40-136 Serum or plasma aspartate aminotransfera se measurement (enzymatic activity/volume) 37 U/L 5-34 Serum or plasma alanine aminotransferase measurement (enzymatic activity/volume) 29 U/L 0-55 Serum or plasma protein measurement (mass/volume) 7.1 g/dL 6.4-8.2 Serum or plasma albumin measurement (mass/volume) 3.0 g/dL 3.2-4.5 CALCIUM CORRECTED 9.7 mg/dL 8.5-10.1 Capillary blood glucose measurement by g lucometer (mass/volume) - 05/01/19 11:26 Capillary blood glucose measurement by glucometer (mas s/volume) 283 mg/dL 70-110 Capillary blood glucose measurement by g lucometer (mass/volume) - 05/01/19 16:25 Capillary blood glucose measurement by glucometer (mas s/volume) 184 mg/dL 70-110 Capillary blood glucose measurement by g lucometer (mass/volume) - 05/01/19 20:39 Capillary blood glucose measurement by glucometer (mas s/volume) 184 mg/dL 70-110 Capillary blood glucose measurement by g lucometer (mass/volume) - 05/02/19 04:35 Capillary blood glucose measurement by glucometer (mas s/volume) 183 mg/dL 70-110 Complete blood count (CBC) with automate d white blood cell (WBC) differential - 05/02/19 05:51 Blood leukocytes automated count (number/volume) 12.3 10*3/uL 4.3-11.0 Blood erythrocytes automated count (number/volume) 2.75 10*6/uL 4.35-5.85 Venous blood hemoglobin measurement (mass/volume) 7.2 g/dL 11.5-16.0 Blood hematocrit (volume fraction) 25 % 35-52 Automated erythrocyte mean corpuscular volume 91 [ foz_us] 80-99 Automated erythrocyte mean corpuscular h emoglobin (mass per erythrocyte) 26 pg 25-34 Automated erythrocyte mean corpuscular h emoglobin concentration measurement (mass/volume) 29 g/dL 32-36 Automated erythrocyte distribution width ratio 18. 1 % 10.0- 14.5 Automated blood platelet count (count/volume) 382 10*3/uL 130-400 Automated blood platelet mean volume measurement 9.3 [foz_us] 7.4-10.4 Automated blood neutrophils/100 leukocytes 82 % 42-75 Automated blood lymphocytes/100 leukocytes 9 % 12-44 Blood monocytes/100 leukocytes 8 % 0-12 Automated blood eosinophils/100 leukocytes 1 % 0-10 Automated blood basophils/100 leukocytes 0 % 0-10 Blood neutrophils automated count (number/volume) 10.1 10*3 1.8-7.8 Blood lymphocytes automated count (number/volume) 1.1 10*3 1.0-4.0 Blood monocytes automated count (number/volume) 1. 0 10*3 0.0-1.0 Automated eosinophil count 0.1 10*3/uL 0 .0-0.3 Automated blood basophil count (count/volume) 0.1 10*3/uL 0.0-0.1 Comprehensive metabolic panel - 05/02/19 05:51 Serum or plasma sodium measurement (moles/volume) 139 mmol/L 135-145 Serum or plasma potassium measurement (moles/volume) 4.2 mmol/L 3.6-5.0 Serum or plasma chloride measurement (moles/volume) 99 mmol/L 98-107 Carbon dioxide 28 mmol/L 21-32 Serum or plasma anion gap determination (moles/volume) 12 mmol/L 5-14 Serum or plasma urea nitrogen measurement (mass/volume ) 28 mg/dL 7-18 Serum or plasma creatinine measurement (mass/volume) 2.46 mg/dL 0.60-1.30 Serum or plasma urea nitrogen/creatinine mass ratio 11 NRG Serum or plasma creatinine measurement w ith calculation of estimated glomerular filtration rate 19 NRG Serum or plasma glucose measurement (mass/volume) 150 mg/dL 70-105 Serum or plasma calcium measurement (mass/volume) 9.1 mg/dL 8.5-10.1 Serum or plasma total bilirubin measurement (mass/volu me) 0.5 mg/dL 0.1-1.0 Serum or plasma alkaline phosphatase rey surement (enzymatic activity/volume) 326 U/L 40-136 Serum or plasma aspartate aminotransfera se measurement (enzymatic activity/volume) 54 U/L 5-34 Serum or plasma alanine aminotransferase measurement (enzymatic activity/volume) 55 U/L 0-55 Serum or plasma protein measurement (mass/volume) 7.3 g/dL 6.4-8.2 Serum or plasma albumin measurement (mass/volume) 3.0 g/dL 3.2-4.5 CALCIUM CORRECTED 9.9 mg/dL 8.5-10.1 Capillary blood glucose measurement by g lucometer (mass/volume) - 05/02/19 11:16 Capillary blood glucose measurement by glucometer (mas s/volume) 205 mg/dL 70-110 Capillary blood glucose measurement by g lucometer (mass/volume) - 05/04/19 04:51 Capillary blood glucose measurement by glucometer (mas s/volume) 208 mg/dL 70-110 Arterial blood gas measurement - 9 04:52 Blood pCO2 43 mm[Hg] 35-45 Blood pO2 62 mm[Hg] 79-93 Arterial blood bicarbonate measurement (moles/volume) 27 mmol/L 23-27 Arterial blood base excess by calculation 2.4 mmol /L -2.5-2.5 Arterial blood oxygen saturation measurement 93 % 94-100 * Inhaled oxygen flow rate 8L NRG Arterial blood pH measurement with patient temperature correction 7.41 7.37-7.43 Arterial blood carbon dioxide, total measurement (mole s/volume) 28.3 mmol/L 21.0-31.0 Body site NA NRG Assessment of wrist artery patency prior to arterial p uncture NA NRG Setting of ventilation mode NO NR G Measurement of body temperature 97.0 NRG Complete blood count (CBC) with automate d white blood cell (WBC) differential - 05/04/19 04:55 Blood leukocytes automated count (number/volume) 13.2 10*3/uL 4.3-11.0 Blood erythrocytes automated count (number/volume) 3.26 10*6/uL 4.35-5.85 Venous blood hemoglobin measurement (mass/volume) 8.7 g/dL 11.5-16.0 Blood hematocrit (volume fraction) 29 % 35-52 Automated erythrocyte mean corpuscular volume 90 [ foz_us] 80-99 Automated erythrocyte mean corpuscular h emoglobin (mass per erythrocyte) 27 pg 25-34 Automated erythrocyte mean corpuscular h emoglobin concentration measurement (mass/volume) 30 g/dL 32-36 Automated erythrocyte distribution width ratio 18. 7 % 10.0- 14.5 Automated blood platelet count (count/volume) 448 10*3/uL 130-400 Automated blood platelet mean volume measurement 9.5 [foz_us] 7.4-10.4 Automated blood neutrophils/100 leukocytes 82 % 42-75 Automated blood lymphocytes/100 leukocytes 9 % 12-44 Blood monocytes/100 leukocytes 7 % 0-12 Automated blood eosinophils/100 leukocytes 1 % 0-10 Automated blood basophils/100 leukocytes 1 % 0-10 Blood neutrophils automated count (number/volume) 10.9 10*3 1.8-7.8 Blood lymphocytes automated count (number/volume) 1.2 10*3 1.0-4.0 Blood monocytes automated count (number/volume) 1. 0 10*3 0.0-1.0 Automated eosinophil count 0.1 10*3/uL 0 .0-0.3 Automated blood basophil count (count/volume) 0.1 10*3/uL 0.0-0.1 PT panel in platelet poor plasma by coag ulation assay - 05/04/19 04:55 Prothrombin time (PT) in platelet poor plasma by coagu lation assay 22.4 s 12.2-14.7 INR in platelet poor plasma or blood by coagulation as say 1.9 0.8-1.4 Activated partial thromboplastin time (a PTT) in platelet poor plasma bycoagulation assay - 05/04/19 04:55 Activated partial thromboplastin time (a PTT) in platelet poor plasma bycoagulation assay 25 s 24-35 Comprehensive metabolic panel - 05/04/19 04:55 Serum or plasma sodium measurement (moles/volume) 135 mmol/L 135-145 Serum or plasma potassium measurement (moles/volume) 5.3 mmol/L 3.6-5.0 Serum or plasma chloride measurement (moles/volume) 96 mmol/L 98-107 Carbon dioxide 23 mmol/L 21-32 Serum or plasma anion gap determination (moles/volume) 16 mmol/L 5-14 Serum or plasma urea nitrogen measurement (mass/volume ) 37 mg/dL 7-18 Serum or plasma creatinine measurement (mass/volume) 2.71 mg/dL 0.60-1.30 Serum or plasma urea nitrogen/creatinine mass ratio 14 NRG Serum or plasma creatinine measurement w ith calculation of estimated glomerular filtration rate 17 NRG Serum or plasma glucose measurement (mass/volume) 200 mg/dL 70-105 Serum or plasma calcium measurement (mass/volume) 9.8 mg/dL 8.5-10.1 Serum or plasma total bilirubin measurement (mass/volu me) 0.5 mg/dL 0.1-1.0 Serum or plasma alkaline phosphatase rey surement (enzymatic activity/volume) 339 U/L 40-136 Serum or plasma aspartate aminotransfera se measurement (enzymatic activity/volume) 36 U/L 5-34 Serum or plasma alanine aminotransferase measurement (enzymatic activity/volume) 54 U/L 0-55 Serum or plasma protein measurement (mass/volume) 8.5 g/dL 6.4-8.2 Serum or plasma albumin measurement (mass/volume) 3.5 g/dL 3.2-4.5 CALCIUM CORRECTED 10.2 mg/dL 8.5-10.1 Serum or plasma troponin i.cardiac measu rement (mass/volume) - 05/04/19 04:55 Serum or plasma troponin i.cardiac measurement (mass/v olume) < ng/mL <0.028 Serum or plasma lithium measurement (mol es/volume) - 05/04/19 04:55 BNP PT 295.9 pg/mL <100.0 Serum or plasma C reactive protein measu rement (mass/volume) - 05/04/19 04:55 Serum or plasma C reactive protein measurement (mass/v olume) 11.93 mg/dL 0.00-0.50 [id number] - 05/04/19 04:55 [id number] 3.90 ng/mL 0.80-2.00 Blood lactic acid measurement (moles/vol ume) - 05/04/19 05:00 Blood lactic acid measurement (moles/volume) 1.46 mmol/L 0.50-2.00 Bacterial blood culture - 05/04/19 05:00 Bacterial blood culture NG NRG Bacterial blood culture - 05/04/19 05:25 FREE TEXT EXTERNAL SEE COMMENTS NRG QUANTITY OF GROWTH Isolated NRG Bacterial blood culture [id number] NRG Complete urinalysis with reflex to cultu re - 05/04/19 05:29 Urine color determination YELLOW NRG Urine clarity determination VERY CLOUDY NRG Urine pH measurement by test strip 5 5-9 Specific gravity of urine by test strip 1.020 1.016-1.022 Urine protein assay by test strip, semi-quantitative 3+ NEGATIVE Urine glucose detection by automated test strip 4+ NEGATIVE Erythrocytes detection in urine sediment by light micr oscopy 3+ NEGATIVE Urine ketones detection by automated test strip NE GATIVE NEGATIVE Urine nitrite detection by test strip NEGATIVE NEGATIVE Urine total bilirubin detection by test strip NEGA TIVE NEGATIVE Urine urobilinogen measurement by automated test strip (mass/volume) NORMAL NORMAL Urine leukocyte esterase detection by dipstick 3+ NEGATIVE Automated urine sediment erythrocyte cou nt by microscopy (number/high power field) [HPF] NRG Automated urine sediment leukocyte count by microscopy (number/high power field) [HPF] NRG Bacteria detection in urine sediment by light microsco py MODERATE NRG Squamous epithelial cells detection in u rine sediment by light microscopy NONE NRG Crystals detection in urine sediment by light microsco py NONE NRG Casts detection in urine sediment by light microscopy NONE NRG Mucus detection in urine sediment by light microscopy NEGATIVE NRG Complete urinalysis with reflex to culture CULTURE PENDING NRG Yeast detection in urine sediment by light microscopy MODERATE NRG Bacterial urine culture - 05/04/19 05:29 Bacterial urine culture [id number] NRG COLONY COUNT >100,000/ML NRG Arterial blood gas measurement - 9 06:43 Blood pCO2 34 mm[Hg] 35-45 Blood pO2 235 mm[Hg] 79-93 Arterial blood bicarbonate measurement (moles/volume) 24 mmol/L 23-27 Arterial blood base excess by calculation 0.4 mmol /L -2.5-2.5 Arterial blood oxygen saturation measurement 100 % 94-100 * Inhaled oxygen flow rate 100% NRG Arterial blood pH measurement with patient temperature correction 7.45 7.37-7.43 Arterial blood carbon dioxide, total measurement (mole s/volume) 25.1 mmol/L 21.0-31.0 Body site RIGHT RADIAL NRG Assessment of wrist artery patency prior to arterial p uncture POSITIVE NRG Setting of ventilation mode YES NR G Measurement of body temperature 97 NRG Arterial blood gas measurement - 9 07:40 Blood pCO2 34 mm[Hg] 35-45 Blood pO2 93 mm[Hg] 79-93 Arterial blood bicarbonate measurement (moles/volume) 22 mmol/L 23-27 Arterial blood base excess by calculation -2.5 mmo l/L -2.5-2.5 Arterial blood oxygen saturation measurement 99 % 94-100 * Inhaled oxygen flow rate 50% NRG Arterial blood pH measurement with patient temperature correction 7.42 7.37-7.43 Arterial blood carbon dioxide, total measurement (mole s/volume) 22.5 mmol/L 21.0-31.0 Body site RIGHT RADIAL NRG Assessment of wrist artery patency prior to arterial p uncture POSITIVE NRG Setting of ventilation mode YES NR G Measurement of body temperature 97 NRG Complete blood count (CBC) with automate d white blood cell (WBC) differential - 05/31/19 13:40 Blood leukocytes automated count (number/volume) 15.4 10*3/uL 4.3-11.0 Blood erythrocytes automated count (number/volume) 4.28 10*6/uL 4.35-5.85 Venous blood hemoglobin measurement (mass/volume) 11.4 g/dL 11.5-16.0 Blood hematocrit (volume fraction) 37 % 35-52 Automated erythrocyte mean corpuscular volume 87 [ foz_us] 80-99 Automated erythrocyte mean corpuscular h emoglobin (mass per erythrocyte) 27 pg 25-34 Automated erythrocyte mean corpuscular h emoglobin concentration measurement (mass/volume) 31 g/dL 32-36 Automated erythrocyte distribution width ratio 17. 8 % 10.0- 14.5 Automated blood platelet count (count/volume) 225 10*3/uL 130-400 Automated blood platelet mean volume measurement 9.7 [foz_us] 7.4-10.4 Automated blood neutrophils/100 leukocytes 92 % 42-75 Automated blood lymphocytes/100 leukocytes 4 % 12-44 Blood monocytes/100 leukocytes 4 % 0-12 Automated blood eosinophils/100 leukocytes 0 % 0-10 Automated blood basophils/100 leukocytes 0 % 0-10 Blood neutrophils automated count (number/volume) 14.2 10*3 1.8-7.8 Blood lymphocytes automated count (number/volume) 0.6 10*3 1.0-4.0 Blood monocytes automated count (number/volume) 0. 7 10*3 0.0-1.0 Automated eosinophil count 0.0 10*3/uL 0 .0-0.3 Automated blood basophil count (count/volume) 0.0 10*3/uL 0.0-0.1 Blood lactic acid measurement (moles/vol ume) - 05/31/19 13:40 Blood lactic acid measurement (moles/volume) 2.22 mmol/L 0.50-2.00 Influenza virus A and B antigen detectio n - 05/31/19 13:40 FLU RESULT NEGATIVE FOR INFLUENZA A AND B ANTIGENS BY [facility] Comprehensive metabolic panel - 05/31/19 13:40 Serum or plasma sodium measurement (moles/volume) 135 mmol/L 135-145 Serum or plasma potassium measurement (moles/volume) 4.2 mmol/L 3.6-5.0 Serum or plasma chloride measurement (moles/volume) 103 mmol/L 98-107 Carbon dioxide 24 mmol/L 21-32 Serum or plasma anion gap determination (moles/volume) 8 mmol/L 5-14 Serum or plasma urea nitrogen measurement (mass/volume ) 20 mg/dL 7-18 Serum or plasma creatinine measurement (mass/volume) 1.90 mg/dL 0.60-1.30 Serum or plasma urea nitrogen/creatinine mass ratio 11 [facility] Serum or plasma creatinine measurement w ith calculation of estimated glomerular filtration rate 26 [facility] Serum or plasma glucose measurement (mass/volume) 203 mg/dL 70-105 Serum or plasma calcium measurement (mass/volume) 8.5 mg/dL 8.5-10.1 Serum or plasma total bilirubin measurement (mass/volu me) 0.6 mg/dL 0.1-1.0 Serum or plasma alkaline phosphatase rey surement (enzymatic activity/volume) 138 U/L 40-136 Serum or plasma aspartate aminotransfera se measurement (enzymatic activity/volume) 25 U/L 5-34 Serum or plasma alanine aminotransferase measurement (enzymatic activity/volume) 18 U/L 0-55 Serum or plasma protein measurement (mass/volume) 7.1 g/dL 6.4-8.2 Serum or plasma albumin measurement (mass/volume) 3.3 g/dL 3.2-4.5 CALCIUM CORRECTED 9.1 mg/dL 8.5-10.1 PT panel in platelet poor plasma by coag ulation assay - 05/31/19 13:40 Prothrombin time (PT) in platelet poor plasma by coagu lation assay 19.8 s 12.2-14.7 INR in platelet poor plasma or blood by coagulation as say 1.6 0.8-1.4 Activated partial thromboplastin time (a PTT) in platelet poor plasma bycoagulation assay - 05/31/19 13:40 Activated partial thromboplastin time (a PTT) in platelet poor plasma bycoagulation assay 38 s 24-35 Manual absolute plasma cell count - 05/14 05/01 13:40 Blood monocytes/100 leukocytes 8 % NRG Manual blood segmented neutrophils/100 leukocytes 87 % NRG Blood band neutrophils/100 leukocytes 3 % NRG Manual blood lymphocytes/100 leukocytes 2 % NRG Blood anisocytosis detection by light microscopy M ODERATE NRG Serum or plasma troponin i.cardiac measu rement (mass/volume) - 05/31/19 13:40 Serum or plasma troponin i.cardiac measurement (mass/v olume) < ng/mL <0.028 [id number] - 05/31/19 13:40 [id number] 2.80 ng/mL 0.80-2.00 Bacterial blood culture - 05/31/19 13:40 Bacterial blood culture NG NRG Complete urinalysis with reflex to cultu re - 05/31/19 13:51 Urine color determination YELLOW NRG Urine clarity determination CLEAR NR G Urine pH measurement by test strip 5 5-9 Specific gravity of urine by test strip 1.020 1.016-1.022 Urine protein assay by test strip, semi-quantitative 2+ NEGATIVE Urine glucose detection by automated test strip 4+ NEGATIVE Erythrocytes detection in urine sediment by light micr oscopy 1+ NEGATIVE Urine ketones detection by automated test strip NE GATIVE NEGATIVE Urine nitrite detection by test strip NEGATIVE NEGATIVE Urine total bilirubin detection by test strip NEGA TIVE NEGATIVE Urine urobilinogen measurement by automated test strip (mass/volume) NORMAL NORMAL Urine leukocyte esterase detection by dipstick 1+ NEGATIVE Automated urine sediment erythrocyte cou nt by microscopy (number/high power field) [HPF] NRG Automated urine sediment leukocyte count by microscopy (number/high power field) [HPF] NRG Bacteria detection in urine sediment by light microsco py TRACE NRG Crystals detection in urine sediment by light microsco py PRESENT NRG Casts detection in urine sediment by light microscopy NONE NRG Mucus detection in urine sediment by light microscopy NEGATIVE NRG Complete urinalysis with reflex to culture NO NRG Amorphous sediment detection in urine sediment by ligh t microscopy MOD ELISHA URATES NRG Bacterial urine culture - 05/31/19 13:51 Bacterial urine culture NG NRG Bacterial blood culture - 05/31/19 14:32 Bacterial blood culture NG NRG Serum or plasma lactate measurement (mol es/volume) - 05/31/19 16:00 Serum or plasma lactate measurement (moles/volume) 1.74 mmol/L 0.50-2.00 Capillary blood glucose measurement by g lucometer (mass/volume) - 05/31/19 18:06 Capillary blood glucose measurement by glucometer (mas s/volume) 138 mg/dL 70-110 Capillary blood glucose measurement by g lucometer (mass/volume) - 05/31/19 19:40 Capillary blood glucose measurement by glucometer (mas s/volume) 191 mg/dL 70-110 Complete blood count (CBC) with automate d white blood cell (WBC) differential - 06/01/19 05:32 Blood leukocytes automated count (number/volume) 10.5 10*3/uL 4.3-11.0 Blood erythrocytes automated count (number/volume) 3.45 10*6/uL 4.35-5.85 Venous blood hemoglobin measurement (mass/volume) 9.3 g/dL 11.5-16.0 Blood hematocrit (volume fraction) 30 % 35-52 Automated erythrocyte mean corpuscular volume 88 [ foz_us] 80-99 Automated erythrocyte mean corpuscular h emoglobin (mass per erythrocyte) 27 pg 25-34 Automated erythrocyte mean corpuscular h emoglobin concentration measurement (mass/volume) 31 g/dL 32-36 Automated erythrocyte distribution width ratio 17. 3 % 10.0- 14.5 Automated blood platelet count (count/volume) 165 10*3/uL 130-400 Automated blood platelet mean volume measurement 10.4 [foz_us] 7.4-10.4 Automated blood neutrophils/100 leukocytes 85 % 42-75 Automated blood lymphocytes/100 leukocytes 8 % 12-44 Blood monocytes/100 leukocytes 7 % 0-12 Automated blood eosinophils/100 leukocytes 0 % 0-10 Automated blood basophils/100 leukocytes 0 % 0-10 Blood neutrophils automated count (number/volume) 8.9 10*3 1.8-7.8 Blood lymphocytes automated count (number/volume) 0.8 10*3 1.0-4.0 Blood monocytes automated count (number/volume) 0. 7 10*3 0.0-1.0 Automated eosinophil count 0.0 10*3/uL 0 .0-0.3 Automated blood basophil count (count/volume) 0.0 10*3/uL 0.0-0.1 Comprehensive metabolic panel - 06/01/19 05:32 Serum or plasma sodium measurement (moles/volume) 137 mmol/L 135-145 Serum or plasma potassium measurement (moles/volume) 3.6 mmol/L 3.6-5.0 Serum or plasma chloride measurement (moles/volume) 104 mmol/L 98-107 Carbon dioxide 23 mmol/L 21-32 Serum or plasma anion gap determination (moles/volume) 10 mmol/L 5-14 Serum or plasma urea nitrogen measurement (mass/volume ) 21 mg/dL 7-18 Serum or plasma creatinine measurement (mass/volume) 1.95 mg/dL 0.60-1.30 Serum or plasma urea nitrogen/creatinine mass ratio 11 NRG Serum or plasma creatinine measurement w ith calculation of estimated glomerular filtration rate 25 NRG Serum or plasma glucose measurement (mass/volume) 140 mg/dL 70-105 Serum or plasma calcium measurement (mass/volume) 7.9 mg/dL 8.5-10.1 Serum or plasma total bilirubin measurement (mass/volu me) 0.7 mg/dL 0.1-1.0 Serum or plasma alkaline phosphatase rey surement (enzymatic activity/volume) 92 U/L 40-136 Serum or plasma aspartate aminotransfera se measurement (enzymatic activity/volume) 29 U/L 5-34 Serum or plasma alanine aminotransferase measurement (enzymatic activity/volume) 16 U/L 0-55 Serum or plasma protein measurement (mass/volume) 5.5 g/dL 6.4-8.2 Serum or plasma albumin measurement (mass/volume) 2.7 g/dL 3.2-4.5 CALCIUM CORRECTED 8.9 mg/dL 8.5-10.1 [id number] - 06/01/19 05:32 [id number] 2.55 ng/mL 0.80-2.00 Capillary blood glucose measurement by g lucometer (mass/volume) - 06/01/19 06:04 Capillary blood glucose measurement by glucometer (mas s/volume) 148 mg/dL 70-110 Blood lactic acid measurement (moles/vol ume) - 06/01/19 07:25 Blood lactic acid measurement (moles/volume) 0.77 mmol/L 0.50-2.00 Whole blood basic metabolic panel - 05/14 06/01 07:25 Serum or plasma sodium measurement (moles/volume) 136 mmol/L 135-145 Serum or plasma potassium measurement (moles/volume) 3.6 mmol/L 3.6-5.0 Serum or plasma chloride measurement (moles/volume) 103 mmol/L 98-107 Carbon dioxide 24 mmol/L 21-32 Serum or plasma anion gap determination (moles/volume) 9 mmol/L 5-14 Serum or plasma urea nitrogen measurement (mass/volume ) 21 mg/dL 7-18 Serum or plasma creatinine measurement (mass/volume) 1.90 mg/dL 0.60-1.30 Serum or plasma urea nitrogen/creatinine mass ratio 11 NRG Serum or plasma creatinine measurement w ith calculation of estimated glomerular filtration rate 26 NRG Serum or plasma glucose measurement (mass/volume) 130 mg/dL 70-105 Serum or plasma calcium measurement (mass/volume) 7.8 mg/dL 8.5-10.1 Serum or plasma lithium measurement (mol es/volume) - 06/01/19 07:25 BNP PT 615.8 pg/mL <100.0 Arterial blood gas measurement - 9 09:36 Blood pCO2 39 mm[Hg] 35-45 Blood pO2 122 mm[Hg] 79-93 Arterial blood bicarbonate measurement (moles/volume) 24 mmol/L 23-27 Arterial blood base excess by calculation -0.5 mmo l/L -2.5-2.5 Arterial blood oxygen saturation measurement 99 % 94-100 * Inhaled oxygen flow rate 4 LITERS NRG Arterial blood pH measurement with patient temperature correction 7.40 7.37-7.43 Arterial blood carbon dioxide, total measurement (mole s/volume) 24.6 mmol/L 21.0-31.0 Body site LT RAD NRG Assessment of wrist artery patency prior to arterial p uncture POS NRG Setting of ventilation mode NO NR G Measurement of body temperature 37.6C NRG OCCULT BLOOD STOOL - 06/01/19 10:46 Stool gastrointestinal hemoglobin detection POSITI VE NEGATIVE Capillary blood glucose measurement by g lucometer (mass/volume) - 06/01/19 12:03 Capillary blood glucose measurement by glucometer (mas s/volume) 160 mg/dL 70-110 Capillary blood glucose measurement by g lucometer (mass/volume) - 06/01/19 15:42 Capillary blood glucose measurement by glucometer (mas s/volume) 117 mg/dL 70-110 Capillary blood glucose measurement by g lucometer (mass/volume) - 06/01/19 19:31 Capillary blood glucose measurement by glucometer (mas s/volume) 162 mg/dL 70-110 Complete blood count (CBC) with automate d white blood cell (WBC) differential - 06/02/19 04:40 Blood leukocytes automated count (number/volume) 8.0 10*3/uL 4.3-11.0 Blood erythrocytes automated count (number/volume) 3.56 10*6/uL 4.35-5.85 Venous blood hemoglobin measurement (mass/volume) 9.4 g/dL 11.5-16.0 Blood hematocrit (volume fraction) 31 % 35-52 Automated erythrocyte mean corpuscular volume 87 [ foz_us] 80-99 Automated erythrocyte mean corpuscular h emoglobin (mass per erythrocyte) 26 pg 25-34 Automated erythrocyte mean corpuscular h emoglobin concentration measurement (mass/volume) 30 g/dL 32-36 Automated erythrocyte distribution width ratio 17. 6 % 10.0- 14.5 Automated blood platelet count (count/volume) 174 10*3/uL 130-400 Automated blood platelet mean volume measurement 9.7 [foz_us] 7.4-10.4 Automated blood neutrophils/100 leukocytes 78 % 42-75 Automated blood lymphocytes/100 leukocytes 11 % 12-44 Blood monocytes/100 leukocytes 10 % 0-12 Automated blood eosinophils/100 leukocytes 1 % 0-10 Automated blood basophils/100 leukocytes 0 % 0-10 Blood neutrophils automated count (number/volume) 6.2 10*3 1.8-7.8 Blood lymphocytes automated count (number/volume) 0.9 10*3 1.0-4.0 Blood monocytes automated count (number/volume) 0. 8 10*3 0.0-1.0 Automated eosinophil count 0.1 10*3/uL 0 .0-0.3 Automated blood basophil count (count/volume) 0.0 10*3/uL 0.0-0.1 Comprehensive metabolic panel - 06/02/19 04:40 Serum or plasma sodium measurement (moles/volume) 137 mmol/L 135-145 Serum or plasma potassium measurement (moles/volume) 3.8 mmol/L 3.6-5.0 Serum or plasma chloride measurement (moles/volume) 108 mmol/L 98-107 Carbon dioxide 22 mmol/L 21-32 Serum or plasma anion gap determination (moles/volume) 7 mmol/L 5-14 Serum or plasma urea nitrogen measurement (mass/volume ) 14 mg/dL 7-18 Serum or plasma creatinine measurement (mass/volume) 1.58 mg/dL 0.60-1.30 Serum or plasma urea nitrogen/creatinine mass ratio 9 NRG Serum or plasma creatinine measurement w ith calculation of estimated glomerular filtration rate 32 NRG Serum or plasma glucose measurement (mass/volume) 117 mg/dL 70-105 Serum or plasma calcium measurement (mass/volume) 7.8 mg/dL 8.5-10.1 Serum or plasma total bilirubin measurement (mass/volu me) 0.5 mg/dL 0.1-1.0 Serum or plasma alkaline phosphatase rey surement (enzymatic activity/volume) 103 U/L 40-136 Serum or plasma aspartate aminotransfera se measurement (enzymatic activity/volume) 30 U/L 5-34 Serum or plasma alanine aminotransferase measurement (enzymatic activity/volume) 19 U/L 0-55 Serum or plasma protein measurement (mass/volume) 5.5 g/dL 6.4-8.2 Serum or plasma albumin measurement (mass/volume) 2.5 g/dL 3.2-4.5 CALCIUM CORRECTED 9.0 mg/dL 8.5-10.1 Serum or plasma lithium measurement (mol es/volume) - 06/02/19 04:40 BNP PT 518.8 pg/mL <100.0 Capillary blood glucose measurement by g lucometer (mass/volume) - 06/02/19 11:33 Capillary blood glucose measurement by glucometer (mas s/volume) 128 mg/dL 70-110 Capillary blood glucose measurement by g lucometer (mass/volume) - 06/02/19 14:59 Capillary blood glucose measurement by glucometer (mas s/volume) 125 mg/dL 70-110 Capillary blood glucose measurement by g lucometer (mass/volume) - 06/02/19 20:46 Capillary blood glucose measurement by glucometer (mas s/volume) 96 mg/dL 70-110 Capillary blood glucose measurement by g lucometer (mass/volume) - 06/03/19 05:04 Capillary blood glucose measurement by glucometer (mas s/volume) 72 mg/dL 70-110 Capillary blood glucose measurement by g lucometer (mass/volume) - 06/03/19 11:25 Capillary blood glucose measurement by glucometer (mas s/volume) 94 mg/dL 70-110 Capillary blood glucose measurement by g lucometer (mass/volume) - 06/03/19 16:21 Capillary blood glucose measurement by glucometer (mas s/volume) 45 mg/dL 70-110 Capillary blood glucose measurement by g lucometer (mass/volume) - 06/03/19 17:11 Capillary blood glucose measurement by glucometer (mas s/volume) 52 mg/dL 70-110 Capillary blood glucose measurement by g lucometer (mass/volume) - 06/03/19 20:42 Capillary blood glucose measurement by glucometer (mas s/volume) 131 mg/dL 70-110 Complete blood count (CBC) with automate d white blood cell (WBC) differential - 06/04/19 04:15 Blood leukocytes automated count (number/volume) 5.5 10*3/uL 4.3-11.0 Blood erythrocytes automated count (number/volume) 3.70 10*6/uL 4.35-5.85 Venous blood hemoglobin measurement (mass/volume) 9.8 g/dL 11.5-16.0 Blood hematocrit (volume fraction) 33 % 35-52 Automated erythrocyte mean corpuscular volume 89 [ foz_us] 80-99 Automated erythrocyte mean corpuscular h emoglobin (mass per erythrocyte) 26 pg 25-34 Automated erythrocyte mean corpuscular h emoglobin concentration measurement (mass/volume) 30 g/dL 32-36 Automated erythrocyte distribution width ratio 17. 9 % 10.0- 14.5 Automated blood platelet count (count/volume) 230 10*3/uL 130-400 Automated blood platelet mean volume measurement 9.6 [foz_us] 7.4-10.4 Automated blood neutrophils/100 leukocytes 71 % 42-75 Automated blood lymphocytes/100 leukocytes 16 % 12-44 Blood monocytes/100 leukocytes 10 % 0-12 Automated blood eosinophils/100 leukocytes 3 % 0-10 Automated blood basophils/100 leukocytes 0 % 0-10 Blood neutrophils automated count (number/volume) 3.9 10*3 1.8-7.8 Blood lymphocytes automated count (number/volume) 0.9 10*3 1.0-4.0 Blood monocytes automated count (number/volume) 0. 5 10*3 0.0-1.0 Automated eosinophil count 0.2 10*3/uL 0 .0-0.3 Automated blood basophil count (count/volume) 0.0 10*3/uL 0.0-0.1 Comprehensive metabolic panel - 06/04/19 04:15 Serum or plasma sodium measurement (moles/volume) 143 mmol/L 135-145 Serum or plasma potassium measurement (moles/volume) 3.5 mmol/L 3.6-5.0 Serum or plasma chloride measurement (moles/volume) 112 mmol/L 98-107 Carbon dioxide 24 mmol/L 21-32 Serum or plasma anion gap determination (moles/volume) 7 mmol/L 5-14 Serum or plasma urea nitrogen measurement (mass/volume ) 12 mg/dL 7-18 Serum or plasma creatinine measurement (mass/volume) 1.50 mg/dL 0.60-1.30 Serum or plasma urea nitrogen/creatinine mass ratio 8 NRG Serum or plasma creatinine measurement w ith calculation of estimated glomerular filtration rate 34 NRG Serum or plasma glucose measurement (mass/volume) 152 mg/dL 70-105 Serum or plasma calcium measurement (mass/volume) 7.9 mg/dL 8.5-10.1 Serum or plasma total bilirubin measurement (mass/volu me) 0.2 mg/dL 0.1-1.0 Serum or plasma alkaline phosphatase rey surement (enzymatic activity/volume) 116 U/L 40-136 Serum or plasma aspartate aminotransfera se measurement (enzymatic activity/volume) 23 U/L 5-34 Serum or plasma alanine aminotransferase measurement (enzymatic activity/volume) 14 U/L 0-55 Serum or plasma protein measurement (mass/volume) 5.6 g/dL 6.4-8.2 Serum or plasma albumin measurement (mass/volume) 2.5 g/dL 3.2-4.5 CALCIUM CORRECTED 9.1 mg/dL 8.5-10.1 Capillary blood glucose measurement by g lucometer (mass/volume) - 06/04/19 10:30 Capillary blood glucose measurement by glucometer (mas s/volume) 179 mg/dL 70-110 Capillary blood glucose measurement by g lucometer (mass/volume) - 06/04/19 15:12 Capillary blood glucose measurement by glucometer (mas s/volume) 152 mg/dL 70-110 Capillary blood glucose measurement by g lucometer (mass/volume) - 06/04/19 20:13 Capillary blood glucose measurement by glucometer (mas s/volume) 159 mg/dL 70-110 Capillary blood glucose measurement by g lucometer (mass/volume) - 06/05/19 05:29 Capillary blood glucose measurement by glucometer (mas s/volume) 96 mg/dL 70-110 Complete blood count (CBC) with automate d white blood cell (WBC) differential - 06/05/19 05:53 Blood leukocytes automated count (number/volume) 5.9 10*3/uL 4.3-11.0 Blood erythrocytes automated count (number/volume) 3.57 10*6/uL 4.35-5.85 Venous blood hemoglobin measurement (mass/volume) 9.4 g/dL 11.5-16.0 Blood hematocrit (volume fraction) 32 % 35-52 Automated erythrocyte mean corpuscular volume 89 [ foz_us] 80-99 Automated erythrocyte mean corpuscular h emoglobin (mass per erythrocyte) 26 pg 25-34 Automated erythrocyte mean corpuscular h emoglobin concentration measurement (mass/volume) 30 g/dL 32-36 Automated erythrocyte distribution width ratio 17. 6 % 10.0- 14.5 Automated blood platelet count (count/volume) 222 10*3/uL 130-400 Automated blood platelet mean volume measurement 9.9 [foz_us] 7.4-10.4 Automated blood neutrophils/100 leukocytes 69 % 42-75 Automated blood lymphocytes/100 leukocytes 18 % 12-44 Blood monocytes/100 leukocytes 8 % 0-12 Automated blood eosinophils/100 leukocytes 4 % 0-10 Automated blood basophils/100 leukocytes 1 % 0-10 Blood neutrophils automated count (number/volume) 4.0 10*3 1.8-7.8 Blood lymphocytes automated count (number/volume) 1.1 10*3 1.0-4.0 Blood monocytes automated count (number/volume) 0. 5 10*3 0.0-1.0 Automated eosinophil count 0.2 10*3/uL 0 .0-0.3 Automated blood basophil count (count/volume) 0.1 10*3/uL 0.0-0.1 Comprehensive metabolic panel - 06/05/19 05:53 Serum or plasma sodium measurement (moles/volume) 144 mmol/L 135-145 Serum or plasma potassium measurement (moles/volume) 3.5 mmol/L 3.6-5.0 Serum or plasma chloride measurement (moles/volume) 111 mmol/L 98-107 Carbon dioxide 24 mmol/L 21-32 Serum or plasma anion gap determination (moles/volume) 9 mmol/L 5-14 Serum or plasma urea nitrogen measurement (mass/volume ) 11 mg/dL 7-18 Serum or plasma creatinine measurement (mass/volume) 1.27 mg/dL 0.60-1.30 Serum or plasma urea nitrogen/creatinine mass ratio 9 NRG Serum or plasma creatinine measurement w ith calculation of estimated glomerular filtration rate 42 NRG Serum or plasma glucose measurement (mass/volume) 85 mg/dL 70-105 Serum or plasma calcium measurement (mass/volume) 7.9 mg/dL 8.5-10.1 Serum or plasma total bilirubin measurement (mass/volu me) 0.2 mg/dL 0.1-1.0 Serum or plasma alkaline phosphatase rey surement (enzymatic activity/volume) 98 U/L 40-136 Serum or plasma aspartate aminotransfera se measurement (enzymatic activity/volume) 18 U/L 5-34 Serum or plasma alanine aminotransferase measurement (enzymatic activity/volume) 17 U/L 0-55 Serum or plasma protein measurement (mass/volume) 5.4 g/dL 6.4-8.2 Serum or plasma albumin measurement (mass/volume) 2.4 g/dL 3.2-4.5 CALCIUM CORRECTED 9.2 mg/dL 8.5-10.1 Capillary blood glucose measurement by g lucometer (mass/volume) - 06/05/19 11:03 Capillary blood glucose measurement by glucometer (mas s/volume) 146 mg/dL 70-110 Complete blood count (CBC) with automate d white blood cell (WBC) differential - 07/05/19 12:30 Blood leukocytes automated count (number/volume) 8.0 10*3/uL 4.3-11.0 Blood erythrocytes automated count (number/volume) 3.48 10*6/uL 4.35-5.85 Venous blood hemoglobin measurement (mass/volume) 9.1 g/dL 11.5-16.0 Blood hematocrit (volume fraction) 31 % 35-52 Automated erythrocyte mean corpuscular volume 88 [ foz_us] 80-99 Automated erythrocyte mean corpuscular h emoglobin (mass per erythrocyte) 26 pg 25-34 Automated erythrocyte mean corpuscular h emoglobin concentration measurement (mass/volume) 30 g/dL 32-36 Automated erythrocyte distribution width ratio 17. 1 % 10.0- 14.5 Automated blood platelet count (count/volume) 310 10*3/uL 130-400 Automated blood platelet mean volume measurement 9.0 [foz_us] 7.4-10.4 Automated blood neutrophils/100 leukocytes 76 % 42-75 Automated blood lymphocytes/100 leukocytes 13 % 12-44 Blood monocytes/100 leukocytes 8 % 0-12 Automated blood eosinophils/100 leukocytes 3 % 0-10 Automated blood basophils/100 leukocytes 1 % 0-10 Blood neutrophils automated count (number/volume) 6.1 10*3 1.8-7.8 Blood lymphocytes automated count (number/volume) 1.1 10*3 1.0-4.0 Blood monocytes automated count (number/volume) 0. 6 10*3 0.0-1.0 Automated eosinophil count 0.2 10*3/uL 0 .0-0.3 Automated blood basophil count (count/volume) 0.1 10*3/uL 0.0-0.1 Whole blood basic metabolic panel - 06/14 11/29 12:30 Serum or plasma sodium measurement (moles/volume) 140 mmol/L 135-145 Serum or plasma potassium measurement (moles/volume) 3.1 mmol/L 3.6-5.0 Serum or plasma chloride measurement (moles/volume) 105 mmol/L 98-107 Carbon dioxide 27 mmol/L 21-32 Serum or plasma anion gap determination (moles/volume) 8 mmol/L 5-14 Serum or plasma urea nitrogen measurement (mass/volume ) 29 mg/dL 7-18 Serum or plasma creatinine measurement (mass/volume) 1.79 mg/dL 0.60-1.30 Serum or plasma urea nitrogen/creatinine mass ratio 16 NRG Serum or plasma creatinine measurement w ith calculation of estimated glomerular filtration rate 28 NRG Serum or plasma glucose measurement (mass/volume) 94 mg/dL 70-105 Serum or plasma calcium measurement (mass/volume) 8.8 mg/dL 8.5-10.1 Capillary blood glucose measurement by g lucometer (mass/volume) - 07/14/19 11:36 Capillary blood glucose measurement by glucometer (mas s/volume) 94 mg/dL 70-110 Bacterial urine culture - 07/14/19 13:29 Bacterial urine culture [id number] NRG COLONY COUNT >100,000/ML NRG FTX;REPORTABLE SUSCEPTIBILITY REPORTED 07-17-19, 10 20 NR FREE TEXT ENTRY 2 RESISTANT ORGANISM/CONTACT PRECA UTIONS NRG FREE TEXT ENTRY 3 EXTENDED-SPECTRUM BETA-LACTAMASE /ESBL NRG Dirithromycin susceptibility test by dis k diffusion - 07/14/19 13:29 Gentamicin susceptibility test by minimum inhibitory c oncentration <= NRG Trimethoprim/sulfamethoxazole susceptibi lity test by minimum inhibitoryconcentration <= NRG Levofloxacin susceptibility test by minimum inhibitory concentration > NRG Ampicillin susceptibility test by minimum inhibitory c oncentration > NRG Cefazolin susceptibility test by minimum inhibitory co ncentration > NRG Ceftriaxone susceptibility test by minimum inhibitory concentration > NRG Ciprofloxacin susceptibility test by minimum inhibitor y concentration > NRG Meropenem susceptibility test by minimum inhibitory co ncentration <= NRG Nitrofurantoin susceptibility test by mi nimum inhibitory concentration <= NRG Amoxicillin and clavulanate potassium susc REGINA R NRG Capillary blood glucose measurement by g lucometer (mass/volume) - 07/14/19 13:56 Capillary blood glucose measurement by glucometer (mas s/volume) 84 mg/dL 70-110 Complete blood count (CBC) with automate d white blood cell (WBC) differential - 07/28/19 10:10 Blood leukocytes automated count (number/volume) 10.2 10*3/uL 4.3-11.0 Blood erythrocytes automated count (number/volume) 4.00 10*6/uL 4.35-5.85 Venous blood hemoglobin measurement (mass/volume) 9.9 g/dL 11.5-16.0 Blood hematocrit (volume fraction) 34 % 35-52 Automated erythrocyte mean corpuscular volume 84 [ foz_us] 80-99 Automated erythrocyte mean corpuscular h emoglobin (mass per erythrocyte) 25 pg 25-34 Automated erythrocyte mean corpuscular h emoglobin concentration measurement (mass/volume) 29 g/dL 32-36 Automated erythrocyte distribution width ratio 17. 2 % 10.0- 14.5 Automated blood platelet count (count/volume) 351 10*3/uL 130-400 Automated blood platelet mean volume measurement 9.3 [foz_us] 7.4-10.4 Automated blood neutrophils/100 leukocytes 81 % 42-75 Automated blood lymphocytes/100 leukocytes 11 % 12-44 Blood monocytes/100 leukocytes 5 % 0-12 Automated blood eosinophils/100 leukocytes 2 % 0-10 Automated blood basophils/100 leukocytes 0 % 0-10 Blood neutrophils automated count (number/volume) 8.2 10*3 1.8-7.8 Blood lymphocytes automated count (number/volume) 1.1 10*3 1.0-4.0 Blood monocytes automated count (number/volume) 0. 5 10*3 0.0-1.0 Automated eosinophil count 0.2 10*3/uL 0 .0-0.3 Automated blood basophil count (count/volume) 0.0 10*3/uL 0.0-0.1 PT panel in platelet poor plasma by coag ulation assay - 07/28/19 10:10 Prothrombin time (PT) in platelet poor plasma by coagu lation assay 18.3 s 12.2-14.7 INR in platelet poor plasma or blood by coagulation as say 1.5 0.8-1.4 Activated partial thromboplastin time (a PTT) in platelet poor plasma bycoagulation assay - 07/28/19 10:10 Activated partial thromboplastin time (a PTT) in platelet poor plasma bycoagulation assay 35 s 24-35 Comprehensive metabolic panel - 07/28/19 10:10 Serum or plasma sodium measurement (moles/volume) 143 mmol/L 135-145 Serum or plasma potassium measurement (moles/volume) 4.3 mmol/L 3.6-5.0 Serum or plasma chloride measurement (moles/volume) 109 mmol/L 98-107 Carbon dioxide 20 mmol/L 21-32 Serum or plasma anion gap determination (moles/volume) 14 mmol/L 5-14 Serum or plasma urea nitrogen measurement (mass/volume ) 25 mg/dL 7-18 Serum or plasma creatinine measurement (mass/volume) 1.70 mg/dL 0.60-1.30 Serum or plasma urea nitrogen/creatinine mass ratio 15 NRG Serum or plasma creatinine measurement w ith calculation of estimated glomerular filtration rate 30 NRG Serum or plasma glucose measurement (mass/volume) 196 mg/dL 70-105 Serum or plasma calcium measurement (mass/volume) 9.9 mg/dL 8.5-10.1 Serum or plasma total bilirubin measurement (mass/volu me) 0.2 mg/dL 0.1-1.0 Serum or plasma alkaline phosphatase rey surement (enzymatic activity/volume) 124 U/L 40-136 Serum or plasma aspartate aminotransfera se measurement (enzymatic activity/volume) 40 U/L 5-34 Serum or plasma alanine aminotransferase measurement (enzymatic activity/volume) 46 U/L 0-55 Serum or plasma protein measurement (mass/volume) 8.2 g/dL 6.4-8.2 Serum or plasma albumin measurement (mass/volume) 3.4 g/dL 3.2-4.5 CALCIUM CORRECTED 10.4 mg/dL 8.5-10.1 Magnesium - 07/28/19 10:10 Magnesium 2.3 mg/dL 1.6-2.4 Serum or plasma troponin i.cardiac measu rement (mass/volume) - 07/28/19 10:10 Serum or plasma troponin i.cardiac measurement (mass/v olume) < ng/mL <0.028 Myoglobin, serum - 07/28/19 10:10 Myoglobin, serum 64.9 ng/mL 10.0-92.0 Serum or plasma lithium measurement (mol es/volume) - 07/28/19 10:10 BNP PT 597.0 pg/mL <100.0 Methicillin resistant Staphylococcus aur eus (MRSA) screening culture - 07/28/19 14:10 MRSA SCREEN RESULT MRSA ISOLATED NRG Capillary blood glucose measurement by g lucometer (mass/volume) - 07/28/19 15:40 Capillary blood glucose measurement by glucometer (mas s/volume) 113 mg/dL 70-110 Serum or plasma troponin i.cardiac measu rement (mass/volume) - 07/28/19 16:53 Serum or plasma troponin i.cardiac measurement (mass/v olume) < ng/mL <0.028 Capillary blood glucose measurement by g lucometer (mass/volume) - 07/28/19 20:04 Capillary blood glucose measurement by glucometer (mas s/volume) 135 mg/dL 70-110 Serum or plasma troponin i.cardiac measu rement (mass/volume) - 07/28/19 22:34 Serum or plasma troponin i.cardiac measurement (mass/v olume) < ng/mL <0.028 Complete blood count (CBC) with automate d white blood cell (WBC) differential - 07/29/19 02:53 Blood leukocytes automated count (number/volume) 6.9 10*3/uL 4.3-11.0 Blood erythrocytes automated count (number/volume) 3.20 10*6/uL 4.35-5.85 Venous blood hemoglobin measurement (mass/volume) 7.9 g/dL 11.5-16.0 Blood hematocrit (volume fraction) 27 % 35-52 Automated erythrocyte mean corpuscular volume 84 [ foz_us] 80-99 Automated erythrocyte mean corpuscular h emoglobin (mass per erythrocyte) 25 pg 25-34 Automated erythrocyte mean corpuscular h emoglobin concentration measurement (mass/volume) 29 g/dL 32-36 Automated erythrocyte distribution width ratio 17. 5 % 10.0- 14.5 Automated blood platelet count (count/volume) 330 10*3/uL 130-400 Automated blood platelet mean volume measurement 8.7 [foz_us] 7.4-10.4 Automated blood neutrophils/100 leukocytes 64 % 42-75 Automated blood lymphocytes/100 leukocytes 23 % 12-44 Blood monocytes/100 leukocytes 9 % 0-12 Automated blood eosinophils/100 leukocytes 3 % 0-10 Automated blood basophils/100 leukocytes 0 % 0-10 Blood neutrophils automated count (number/volume) 4.5 10*3 1.8-7.8 Blood lymphocytes automated count (number/volume) 1.6 10*3 1.0-4.0 Blood monocytes automated count (number/volume) 0. 6 10*3 0.0-1.0 Automated eosinophil count 0.2 10*3/uL 0 .0-0.3 Automated blood basophil count (count/volume) 0.0 10*3/uL 0.0-0.1 Whole blood basic metabolic panel - 07/14 03/01 02:53 Serum or plasma sodium measurement (moles/volume) 140 mmol/L 135-145 Serum or plasma potassium measurement (moles/volume) 3.8 mmol/L 3.6-5.0 Serum or plasma chloride measurement (moles/volume) 111 mmol/L 98-107 Carbon dioxide 20 mmol/L 21-32 Serum or plasma anion gap determination (moles/volume) 9 mmol/L 5-14 Serum or plasma urea nitrogen measurement (mass/volume ) 22 mg/dL 7-18 Serum or plasma creatinine measurement (mass/volume) 1.45 mg/dL 0.60-1.30 Serum or plasma urea nitrogen/creatinine mass ratio 15 NRG Serum or plasma creatinine measurement w ith calculation of estimated glomerular filtration rate 36 NRG Serum or plasma glucose measurement (mass/volume) 100 mg/dL 70-105 Serum or plasma calcium measurement (mass/volume) 8.7 mg/dL 8.5-10.1 Serum or plasma phosphate measurement (m ass/volume) - 07/29/19 02:53 Serum or plasma phosphate measurement (mass/volume) 3.7 mg/dL 2.3-4.7 Magnesium - 07/29/19 02:53 Magnesium 2.0 mg/dL 1.6-2.4 Lipid 1996 panel - 07/29/19 02:53 Serum or plasma triglyceride measurement (mass/volume) 90 mg/dL <150 Serum or plasma cholesterol measurement (mass/volume) 83 mg/dL < 200 Serum or plasma cholesterol in HDL measurement (mass/v olume) 22 mg/dL 40-60 Cholesterol in LDL [mass/volume] in serum or plasma by direct assay 45 mg/dL 1-129 Serum or plasma cholesterol in VLDL measurement (mass/ volume) 18 mg/dL 5-40 Capillary blood glucose measurement by g lucometer (mass/volume) - 07/29/19 11:09 Capillary blood glucose measurement by glucometer (mas s/volume) 86 mg/dL 70-110 Capillary blood glucose measurement by g lucometer (mass/volume) - 07/29/19 20:26 Capillary blood glucose measurement by glucometer (mas s/volume) 153 mg/dL 70-110 Complete blood count (CBC) with automate d white blood cell (WBC) differential - 07/30/19 02:50 Blood leukocytes automated count (number/volume) 6.6 10*3/uL 4.3-11.0 Blood erythrocytes automated count (number/volume) 3.27 10*6/uL 4.35-5.85 Venous blood hemoglobin measurement (mass/volume) 8.1 g/dL 11.5-16.0 Blood hematocrit (volume fraction) 27 % 35-52 Automated erythrocyte mean corpuscular volume 83 [ foz_us] 80-99 Automated erythrocyte mean corpuscular h emoglobin (mass per erythrocyte) 25 pg 25-34 Automated erythrocyte mean corpuscular h emoglobin concentration measurement (mass/volume) 30 g/dL 32-36 Automated erythrocyte distribution width ratio 17. 1 % 10.0- 14.5 Automated blood platelet count (count/volume) 323 10*3/uL 130-400 Automated blood platelet mean volume measurement 8.8 [foz_us] 7.4-10.4 Automated blood neutrophils/100 leukocytes 70 % 42-75 Automated blood lymphocytes/100 leukocytes 20 % 12-44 Blood monocytes/100 leukocytes 7 % 0-12 Automated blood eosinophils/100 leukocytes 2 % 0-10 Automated blood basophils/100 leukocytes 1 % 0-10 Blood neutrophils automated count (number/volume) 4.6 10*3 1.8-7.8 Blood lymphocytes automated count (number/volume) 1.3 10*3 1.0-4.0 Blood monocytes automated count (number/volume) 0. 5 10*3 0.0-1.0 Automated eosinophil count 0.2 10*3/uL 0 .0-0.3 Automated blood basophil count (count/volume) 0.0 10*3/uL 0.0-0.1 Whole blood basic metabolic panel - 07/14 03/31 02:50 Serum or plasma sodium measurement (moles/volume) 139 mmol/L 135-145 Serum or plasma potassium measurement (moles/volume) 3.4 mmol/L 3.6-5.0 Serum or plasma chloride measurement (moles/volume) 108 mmol/L 98-107 Carbon dioxide 20 mmol/L 21-32 Serum or plasma anion gap determination (moles/volume) 11 mmol/L 5-14 Serum or plasma urea nitrogen measurement (mass/volume ) 20 mg/dL 7-18 Serum or plasma creatinine measurement (mass/volume) 1.30 mg/dL 0.60-1.30 Serum or plasma urea nitrogen/creatinine mass ratio 15 NRG Serum or plasma creatinine measurement w ith calculation of estimated glomerular filtration rate 41 NRG Serum or plasma glucose measurement (mass/volume) 76 mg/dL 70-105 Serum or plasma calcium measurement (mass/volume) 8.5 mg/dL 8.5-10.1 Serum or plasma phosphate measurement (m ass/volume) - 07/30/19 02:50 Serum or plasma phosphate measurement (mass/volume) 3.4 mg/dL 2.3-4.7 Magnesium - 07/30/19 02:50 Magnesium 1.9 mg/dL 1.6-2.4 OCCULT BLOOD STOOL - 07/30/19 08:30 Stool gastrointestinal hemoglobin detection POSITI VE NEGATIVE Capillary blood glucose measurement by g lucometer (mass/volume) - 07/30/19 12:57 Capillary blood glucose measurement by glucometer (mas s/volume) 164 mg/dL 70-110 Capillary blood glucose measurement by g lucometer (mass/volume) - 07/30/19 16:58 Capillary blood glucose measurement by glucometer (mas s/volume) 170 mg/dL 70-110 Capillary blood glucose measurement by g lucometer (mass/volume) - 07/30/19 20:56 Capillary blood glucose measurement by glucometer (mas s/volume) 186 mg/dL 70-110 Complete blood count (CBC) with automate d white blood cell (WBC) differential - 07/31/19 03:00 Blood leukocytes automated count (number/volume) 7.1 10*3/uL 4.3-11.0 Blood erythrocytes automated count (number/volume) 3.38 10*6/uL 4.35-5.85 Venous blood hemoglobin measurement (mass/volume) 8.3 g/dL 11.5-16.0 Blood hematocrit (volume fraction) 28 % 35-52 Automated erythrocyte mean corpuscular volume 82 [ foz_us] 80-99 Automated erythrocyte mean corpuscular h emoglobin (mass per erythrocyte) 25 pg 25-34 Automated erythrocyte mean corpuscular h emoglobin concentration measurement (mass/volume) 30 g/dL 32-36 Automated erythrocyte distribution width ratio 17. 1 % 10.0- 14.5 Automated blood platelet count (count/volume) 340 10*3/uL 130-400 Automated blood platelet mean volume measurement 8.7 [foz_us] 7.4-10.4 Automated blood neutrophils/100 leukocytes 72 % 42-75 Automated blood lymphocytes/100 leukocytes 17 % 12-44 Blood monocytes/100 leukocytes 8 % 0-12 Automated blood eosinophils/100 leukocytes 2 % 0-10 Automated blood basophils/100 leukocytes 1 % 0-10 Blood neutrophils automated count (number/volume) 5.1 10*3 1.8-7.8 Blood lymphocytes automated count (number/volume) 1.2 10*3 1.0-4.0 Blood monocytes automated count (number/volume) 0. 6 10*3 0.0-1.0 Automated eosinophil count 0.2 10*3/uL 0 .0-0.3 Automated blood basophil count (count/volume) 0.0 10*3/uL 0.0-0.1 Liver function panel (serum or plasma al k phos, alb, total and direct bili, total protein, ALT, AST) - 07/31/19 03:00 Serum or plasma total bilirubin measurement (mass/volu me) 0.2 mg/dL 0.1-1.0 Serum or plasma alkaline phosphatase rey surement (enzymatic activity/volume) 90 U/L 40-136 Serum or plasma aspartate aminotransfera se measurement (enzymatic activity/volume) 15 U/L 5-34 Serum or plasma alanine aminotransferase measurement (enzymatic activity/volume) 24 U/L 0-55 Serum or plasma protein measurement (mass/volume) 6.4 g/dL 6.4-8.2 Serum or plasma albumin measurement (mass/volume) 2.8 g/dL 3.2-4.5 Bilirubin direct 0.1 mg/dL 0.0-0.3 Serum or plasma indirect bilirubin measurement (mass/v olume) 0.1 mg/dL NRG Whole blood basic metabolic panel - 07/14 05/01 03:00 Serum or plasma sodium measurement (moles/volume) 139 mmol/L 135-145 Serum or plasma potassium measurement (moles/volume) 3.5 mmol/L 3.6-5.0 Serum or plasma chloride measurement (moles/volume) 109 mmol/L 98-107 Carbon dioxide 21 mmol/L 21-32 Serum or plasma anion gap determination (moles/volume) 9 mmol/L 5-14 Serum or plasma urea nitrogen measurement (mass/volume ) 15 mg/dL 7-18 Serum or plasma creatinine measurement (mass/volume) 1.23 mg/dL 0.60-1.30 Serum or plasma urea nitrogen/creatinine mass ratio 12 NRG Serum or plasma creatinine measurement w ith calculation of estimated glomerular filtration rate 43 NRG Serum or plasma glucose measurement (mass/volume) 131 mg/dL 70-105 Serum or plasma calcium measurement (mass/volume) 8.5 mg/dL 8.5-10.1 Serum or plasma phosphate measurement (m ass/volume) - 07/31/19 03:00 Serum or plasma phosphate measurement (mass/volume) 3.1 mg/dL 2.3-4.7 Magnesium - 07/31/19 03:00 Magnesium 1.9 mg/dL 1.6-2.4 Body fluid cell count - 07/31/19 06:10 Specimen source identification of body fluid THORA CENTESIS NRG Evaluation of color of body fluid YELLOW NRG Determination of appearance of body fluid SLT CLDY NR Body fluid leukocytes count (number/volume) 16 /uL NRG Body fluid erythrocytes count (number/volume) 1950 /uL NR Manual body fluid polymorphonuclear cells/100 leukocyt es 54 % NR Manual body fluid mononuclear cells/100 leukocytes 2 % NR Manual body fluid lymphocytes/100 leukocytes 44 % NRG * PH of body fluid - 07/31/19 06:10 * PH of body fluid 7.3 NRG Glucose body fluid - 07/31/19 06:10 Glucose body fluid 132 mg/dL NRG Body fluid total protein measurement - 1 09/30/18 06:10 Body fluid total protein measurement 3.7 g/dL NRG Body fluid/serum or plasma lactate dehyd rogenase (LDH) ratio - 07/31/19 06:10 Body fluid/serum or plasma lactate dehydrogenase (LDH) ratio 102 U/L NRG Gram stain microscopy - 07/31/19 06:10 Gram stain microscopy NO BACTERIA SEEN NRG Bacterial body fluid culture - 07/31/19 06:10 Bacterial body fluid culture NG N RG Capillary blood glucose measurement by g lucometer (mass/volume) - 07/31/19 11:11 Capillary blood glucose measurement by glucometer (mas s/volume) 200 mg/dL 70-110 Capillary blood glucose measurement by g lucometer (mass/volume) - 07/31/19 11:31 Capillary blood glucose measurement by glucometer (mas s/volume) 206 mg/dL 70-110 Capillary blood glucose measurement by g lucometer (mass/volume) - 07/31/19 16:05 Capillary blood glucose measurement by glucometer (mas s/volume) 165 mg/dL 70-110 Capillary blood glucose measurement by g lucometer (mass/volume) - 07/31/19 21:07 Capillary blood glucose measurement by glucometer (mas s/volume) 196 mg/dL 70-110 Capillary blood glucose measurement by g lucometer (mass/volume) - 08/01/19 05:58 Capillary blood glucose measurement by glucometer (mas s/volume) 123 mg/dL 70-110 Complete blood count (CBC) with automate d white blood cell (WBC) differential - 08/01/19 06:00 Blood leukocytes automated count (number/volume) 8.2 10*3/uL 4.3-11.0 Blood erythrocytes automated count (number/volume) 3.43 10*6/uL 4.35-5.85 Venous blood hemoglobin measurement (mass/volume) 8.4 g/dL 11.5-16.0 Blood hematocrit (volume fraction) 28 % 35-52 Automated erythrocyte mean corpuscular volume 83 [ foz_us] 80-99 Automated erythrocyte mean corpuscular h emoglobin (mass per erythrocyte) 25 pg 25-34 Automated erythrocyte mean corpuscular h emoglobin concentration measurement (mass/volume) 30 g/dL 32-36 Automated erythrocyte distribution width ratio 16. 9 % 10.0- 14.5 Automated blood platelet count (count/volume) 345 10*3/uL 130-400 Automated blood platelet mean volume measurement 9.2 [foz_us] 7.4-10.4 Automated blood neutrophils/100 leukocytes 75 % 42-75 Automated blood lymphocytes/100 leukocytes 14 % 12-44 Blood monocytes/100 leukocytes 7 % 0-12 Automated blood eosinophils/100 leukocytes 4 % 0-10 Automated blood basophils/100 leukocytes 1 % 0-10 Blood neutrophils automated count (number/volume) 6.1 10*3 1.8-7.8 Blood lymphocytes automated count (number/volume) 1.1 10*3 1.0-4.0 Blood monocytes automated count (number/volume) 0. 6 10*3 0.0-1.0 Automated eosinophil count 0.3 10*3/uL 0 .0-0.3 Automated blood basophil count (count/volume) 0.0 10*3/uL 0.0-0.1 Whole blood basic metabolic panel - 07/14 06/01 06:00 Serum or plasma sodium measurement (moles/volume) 143 mmol/L 135-145 Serum or plasma potassium measurement (moles/volume) 3.3 mmol/L 3.6-5.0 Serum or plasma chloride measurement (moles/volume) 109 mmol/L 98-107 Carbon dioxide 22 mmol/L 21-32 Serum or plasma anion gap determination (moles/volume) 12 mmol/L 5-14 Serum or plasma urea nitrogen measurement (mass/volume ) 11 mg/dL 7-18 Serum or plasma creatinine measurement (mass/volume) 1.14 mg/dL 0.60-1.30 Serum or plasma urea nitrogen/creatinine mass ratio 10 NRG Serum or plasma creatinine measurement w ith calculation of estimated glomerular filtration rate 47 NRG Serum or plasma glucose measurement (mass/volume) 112 mg/dL 70-105 Serum or plasma calcium measurement (mass/volume) 8.7 mg/dL 8.5-10.1 Serum or plasma phosphate measurement (m ass/volume) - 08/01/19 06:00 Serum or plasma phosphate measurement (mass/volume) 3.3 mg/dL 2.3-4.7 Magnesium - 08/01/19 06:00 Magnesium 1.8 mg/dL 1.6-2.4 Capillary blood glucose measurement by g lucometer (mass/volume) - 08/01/19 10:49 Capillary blood glucose measurement by glucometer (mas s/volume) 116 mg/dL 70-110 Capillary blood glucose measurement by g lucometer (mass/volume) - 08/01/19 16:23 Capillary blood glucose measurement by glucometer (mas s/volume) 106 mg/dL 70-110 Capillary blood glucose measurement by g lucometer (mass/volume) - 08/01/19 20:51 Capillary blood glucose measurement by glucometer (mas s/volume) 109 mg/dL 70-110 Complete blood count (CBC) with automate d white blood cell (WBC) differential - 08/02/19 04:35 Blood leukocytes automated count (number/volume) 7.3 10*3/uL 4.3-11.0 Blood erythrocytes automated count (number/volume) 3.55 10*6/uL 4.35-5.85 Venous blood hemoglobin measurement (mass/volume) 8.7 g/dL 11.5-16.0 Blood hematocrit (volume fraction) 29 % 35-52 Automated erythrocyte mean corpuscular volume 81 [ foz_us] 80-99 Automated erythrocyte mean corpuscular h emoglobin (mass per erythrocyte) 25 pg 25-34 Automated erythrocyte mean corpuscular h emoglobin concentration measurement (mass/volume) 30 g/dL 32-36 Automated erythrocyte distribution width ratio 17. 5 % 10.0- 14.5 Automated blood platelet count (count/volume) 313 10*3/uL 130-400 Automated blood platelet mean volume measurement 9.1 [foz_us] 7.4-10.4 Automated blood neutrophils/100 leukocytes 70 % 42-75 Automated blood lymphocytes/100 leukocytes 18 % 12-44 Blood monocytes/100 leukocytes 8 % 0-12 Automated blood eosinophils/100 leukocytes 4 % 0-10 Automated blood basophils/100 leukocytes 0 % 0-10 Blood neutrophils automated count (number/volume) 5.1 10*3 1.8-7.8 Blood lymphocytes automated count (number/volume) 1.3 10*3 1.0-4.0 Blood monocytes automated count (number/volume) 0. 6 10*3 0.0-1.0 Automated eosinophil count 0.3 10*3/uL 0 .0-0.3 Automated blood basophil count (count/volume) 0.0 10*3/uL 0.0-0.1 Whole blood basic metabolic panel - 07/15 04:35 Serum or plasma sodium measurement (moles/volume) 144 mmol/L 135-145 Serum or plasma potassium measurement (moles/volume) 3.2 mmol/L 3.6-5.0 Serum or plasma chloride measurement (moles/volume) 109 mmol/L 98-107 Carbon dioxide 23 mmol/L 21-32 Serum or plasma anion gap determination (moles/volume) 12 mmol/L 5-14 Serum or plasma urea nitrogen measurement (mass/volume ) 9 mg/dL 7-18 Serum or plasma creatinine measurement (mass/volume) 1.01 mg/dL 0.60-1.30 Serum or plasma urea nitrogen/creatinine mass ratio 9 NRG Serum or plasma creatinine measurement w ith calculation of estimated glomerular filtration rate 54 NRG Serum or plasma glucose measurement (mass/volume) 120 mg/dL 70-105 Serum or plasma calcium measurement (mass/volume) 8.8 mg/dL 8.5-10.1 Serum or plasma phosphate measurement (m ass/volume) - 08/02/19 04:35 Serum or plasma phosphate measurement (mass/volume) 3.5 mg/dL 2.3-4.7 Magnesium - 08/02/19 04:35 Magnesium 1.7 mg/dL 1.6-2.4 Capillary blood glucose measurement by g lucometer (mass/volume) - 08/02/19 11:20 Capillary blood glucose measurement by glucometer (mas s/volume) 202 mg/dL 70-110 Capillary blood glucose measurement by g lucometer (mass/volume) - 08/02/19 16:14 Capillary blood glucose measurement by glucometer (mas s/volume) 143 mg/dL 70-110 Capillary blood glucose measurement by g lucometer (mass/volume) - 08/02/19 20:48 Capillary blood glucose measurement by glucometer (mas s/volume) 207 mg/dL 70-110 Complete blood count (CBC) with automate d white blood cell (WBC) differential - 08/03/19 03:15 Blood leukocytes automated count (number/volume) 7.5 10*3/uL 4.3-11.0 Blood erythrocytes automated count (number/volume) 3.62 10*6/uL 4.35-5.85 Venous blood hemoglobin measurement (mass/volume) 8.8 g/dL 11.5-16.0 Blood hematocrit (volume fraction) 30 % 35-52 Automated erythrocyte mean corpuscular volume 82 [ foz_us] 80-99 Automated erythrocyte mean corpuscular h emoglobin (mass per erythrocyte) 24 pg 25-34 Automated erythrocyte mean corpuscular h emoglobin concentration measurement (mass/volume) 30 g/dL 32-36 Automated erythrocyte distribution width ratio 17. 0 % 10.0- 14.5 Automated blood platelet count (count/volume) 295 10*3/uL 130-400 Automated blood platelet mean volume measurement 9.0 [foz_us] 7.4-10.4 Automated blood neutrophils/100 leukocytes 74 % 42-75 Automated blood lymphocytes/100 leukocytes 14 % 12-44 Blood monocytes/100 leukocytes 8 % 0-12 Automated blood eosinophils/100 leukocytes 4 % 0-10 Automated blood basophils/100 leukocytes 0 % 0-10 Blood neutrophils automated count (number/volume) 5.6 10*3 1.8-7.8 Blood lymphocytes automated count (number/volume) 1.1 10*3 1.0-4.0 Blood monocytes automated count (number/volume) 0. 6 10*3 0.0-1.0 Automated eosinophil count 0.3 10*3/uL 0 .0-0.3 Automated blood basophil count (count/volume) 0.0 10*3/uL 0.0-0.1 Whole blood basic metabolic panel - 07/15 10/01 03:15 Serum or plasma sodium measurement (moles/volume) 141 mmol/L 135-145 Serum or plasma potassium measurement (moles/volume) 3.3 mmol/L 3.6-5.0 Serum or plasma chloride measurement (moles/volume) 106 mmol/L 98-107 Carbon dioxide 24 mmol/L 21-32 Serum or plasma anion gap determination (moles/volume) 11 mmol/L 5-14 Serum or plasma urea nitrogen measurement (mass/volume ) 11 mg/dL 7-18 Serum or plasma creatinine measurement (mass/volume) 1.20 mg/dL 0.60-1.30 Serum or plasma urea nitrogen/creatinine mass ratio 9 NRG Serum or plasma creatinine measurement w ith calculation of estimated glomerular filtration rate 45 NRG Serum or plasma glucose measurement (mass/volume) 115 mg/dL 70-105 Serum or plasma calcium measurement (mass/volume) 8.7 mg/dL 8.5-10.1 Serum or plasma phosphate measurement (m ass/volume) - 08/03/19 03:15 Serum or plasma phosphate measurement (mass/volume) 3.9 mg/dL 2.3-4.7 Magnesium - 08/03/19 03:15 Magnesium 1.6 mg/dL 1.6-2.4 Capillary blood glucose measurement by g lucometer (mass/volume) - 08/03/19 05:17 Capillary blood glucose measurement by glucometer (mas s/volume) 126 mg/dL 70-110 Capillary blood glucose measurement by g lucometer (mass/volume) - 08/03/19 11:08 Capillary blood glucose measurement by glucometer (mas s/volume) 166 mg/dL 70-110 Bacterial blood culture - 08/12/19 09:45 Bacterial blood culture NG NRG Capillary blood glucose measurement by g lucometer (mass/volume) - 08/12/19 09:50 Capillary blood glucose measurement by glucometer (mas s/volume) 253 mg/dL 70-110 Complete blood count (CBC) with automate d white blood cell (WBC) differential - 08/12/19 10:14 Blood leukocytes automated count (number/volume) 16.0 10*3/uL 4.3-11.0 Blood erythrocytes automated count (number/volume) 3.73 10*6/uL 4.35-5.85 Venous blood hemoglobin measurement (mass/volume) 9.2 g/dL 11.5-16.0 Blood hematocrit (volume fraction) 30 % 35-52 Automated erythrocyte mean corpuscular volume 79 [ foz_us] 80-99 Automated erythrocyte mean corpuscular h emoglobin (mass per erythrocyte) 25 pg 25-34 Automated erythrocyte mean corpuscular h emoglobin concentration measurement (mass/volume) 31 g/dL 32-36 Automated erythrocyte distribution width ratio 17. 6 % 10.0- 14.5 Automated blood platelet count (count/volume) 287 10*3/uL 130-400 Automated blood platelet mean volume measurement 9.2 [foz_us] 7.4-10.4 Automated blood neutrophils/100 leukocytes 84 % 42-75 Automated blood lymphocytes/100 leukocytes 10 % 12-44 Blood monocytes/100 leukocytes 6 % 0-12 Automated blood eosinophils/100 leukocytes 1 % 0-10 Automated blood basophils/100 leukocytes 0 % 0-10 Blood neutrophils automated count (number/volume) 13.4 10*3 1.8-7.8 Blood lymphocytes automated count (number/volume) 1.6 10*3 1.0-4.0 Blood monocytes automated count (number/volume) 0. 9 10*3 0.0-1.0 Automated eosinophil count 0.1 10*3/uL 0 .0-0.3 Automated blood basophil count (count/volume) 0.0 10*3/uL 0.0-0.1 Blood lactic acid measurement (moles/vol ume) - 08/12/19 10:14 Blood lactic acid measurement (moles/volume) 1.40 mmol/L 0.50-2.00 PT panel in platelet poor plasma by coag ulation assay - 08/12/19 10:14 Prothrombin time (PT) in platelet poor plasma by coagu lation assay 15.5 s 12.2-14.7 INR in platelet poor plasma or blood by coagulation as say 1.2 0.8-1.4 Activated partial thromboplastin time (a PTT) in platelet poor plasma bycoagulation assay - 08/12/19 10:14 Activated partial thromboplastin time (a PTT) in platelet poor plasma bycoagulation assay 29 s 24-35 Comprehensive metabolic panel - 08/12/19 10:14 Serum or plasma sodium measurement (moles/volume) 137 mmol/L 135-145 Serum or plasma potassium measurement (moles/volume) 3.6 mmol/L 3.6-5.0 Serum or plasma chloride measurement (moles/volume) 105 mmol/L 98-107 Carbon dioxide 22 mmol/L 21-32 Serum or plasma anion gap determination (moles/volume) 10 mmol/L 5-14 Serum or plasma urea nitrogen measurement (mass/volume ) 17 mg/dL 7-18 Serum or plasma creatinine measurement (mass/volume) 1.81 mg/dL 0.60-1.30 Serum or plasma urea nitrogen/creatinine mass ratio 9 NRG Serum or plasma creatinine measurement w ith calculation of estimated glomerular filtration rate 28 NRG Serum or plasma glucose measurement (mass/volume) 234 mg/dL 70-105 Serum or plasma calcium measurement (mass/volume) 9.1 mg/dL 8.5-10.1 Serum or plasma total bilirubin measurement (mass/volu me) 0.4 mg/dL 0.1-1.0 Serum or plasma alkaline phosphatase rey surement (enzymatic activity/volume) 91 U/L 40-136 Serum or plasma aspartate aminotransfera se measurement (enzymatic activity/volume) 12 U/L 5-34 Serum or plasma alanine aminotransferase measurement (enzymatic activity/volume) 14 U/L 0-55 Serum or plasma protein measurement (mass/volume) 7.0 g/dL 6.4-8.2 Serum or plasma albumin measurement (mass/volume) 3.3 g/dL 3.2-4.5 CALCIUM CORRECTED 9.7 mg/dL 8.5-10.1 Serum or plasma lithium measurement (mol es/volume) - 08/12/19 10:14 BNP PT 310.6 pg/mL <100.0 Manual absolute plasma cell count - 07/16 10:14 Blood monocytes/100 leukocytes 2 % NRG Manual blood segmented neutrophils/100 leukocytes 86 % NRG Manual blood lymphocytes/100 leukocytes 10 % NRG Manual eosinophils/100 leukocytes in nose 2 % NRG Blood anisocytosis detection by light microscopy M ODERATE NRG Blood microcytes detection by light microscopy MOD ERATE NRG Bacterial blood culture - 08/12/19 10:14 Bacterial blood culture NG NRG Complete urinalysis with reflex to cultu re - 08/12/19 12:40 Urine color determination YELLOW NRG Urine clarity determination SL CLOUDY N RG Urine pH measurement by test strip 6.5 5-9 Specific gravity of urine by test strip 1.015 1.016-1.022 Urine protein assay by test strip, semi-quantitative 1+ NEGATIVE Urine glucose detection by automated test strip 3+ NEGATIVE Erythrocytes detection in urine sediment by light micr oscopy 1+ NEGATIVE Urine ketones detection by automated test strip NE GATIVE NEGATIVE Urine nitrite detection by test strip POSITIVE NEGATIVE Urine total bilirubin detection by test strip NEGA TIVE NEGATIVE Urine urobilinogen measurement by automated test strip (mass/volume) 0.2 mg/dL < = 1.0 Urine leukocyte esterase detection by dipstick 2+ NEGATIVE Automated urine sediment erythrocyte cou nt by microscopy (number/high power field) [HPF] NRG Automated urine sediment leukocyte count by microscopy (number/high power field) TNTC NRG Bacteria detection in urine sediment by light microsco py MODERATE NRG Crystals detection in urine sediment by light microsco py NONE NRG Casts detection in urine sediment by light microscopy NONE NRG Mucus detection in urine sediment by light microscopy NEGATIVE NRG Complete urinalysis with reflex to culture CULTURE PENDING NRG Bacterial urine culture - 08/12/19 12:40 Bacterial urine culture [id number] NRG COLONY COUNT >100,000/ML NRG FTX;REPORTABLE SUSCEPTIBILITY REPORTED 08-14-19, 13 23 NRG Dirithromycin susceptibility test by dis k diffusion - 08/12/19 12:40 Gentamicin susceptibility test by minimum inhibitory c oncentration <= NRG Trimethoprim/sulfamethoxazole susceptibi lity test by minimum inhibitoryconcentration <= NRG Levofloxacin susceptibility test by minimum inhibitory concentration <= NRG Ampicillin susceptibility test by minimum inhibitory c oncentration R NRG Cefazolin susceptibility test by minimum inhibitory co ncentration <= NRG Ceftriaxone susceptibility test by minimum inhibitory concentration <= NRG Ciprofloxacin susceptibility test by minimum inhibitor y concentration <= NRG Meropenem susceptibility test by minimum inhibitory co ncentration <= NRG Nitrofurantoin susceptibility test by mi nimum inhibitory concentration 32 NRG Amoxicillin and clavulanate potassium susc REGINA <= NRG Capillary blood glucose measurement by g lucometer (mass/volume) - 08/12/19 16:53 Capillary blood glucose measurement by glucometer (mas s/volume) 297 mg/dL 70-110 Capillary blood glucose measurement by g lucometer (mass/volume) - 08/12/19 20:45 Capillary blood glucose measurement by glucometer (mas s/volume) 203 mg/dL 70-110 Complete blood count (CBC) with automate d white blood cell (WBC) differential - 08/13/19 05:15 Blood leukocytes automated count (number/volume) 13.5 10*3/uL 4.3-11.0 Blood erythrocytes automated count (number/volume) 3.43 10*6/uL 4.35-5.85 Venous blood hemoglobin measurement (mass/volume) 8.3 g/dL 11.5-16.0 Blood hematocrit (volume fraction) 27 % 35-52 Automated erythrocyte mean corpuscular volume 80 [ foz_us] 80-99 Automated erythrocyte mean corpuscular h emoglobin (mass per erythrocyte) 24 pg 25-34 Automated erythrocyte mean corpuscular h emoglobin concentration measurement (mass/volume) 30 g/dL 32-36 Automated erythrocyte distribution width ratio 17. 2 % 10.0- 14.5 Automated blood platelet count (count/volume) 240 10*3/uL 130-400 Automated blood platelet mean volume measurement 10.1 [foz_us] 7.4-10.4 Automated blood neutrophils/100 leukocytes 82 % 42-75 Automated blood lymphocytes/100 leukocytes 9 % 12-44 Blood monocytes/100 leukocytes 7 % 0-12 Automated blood eosinophils/100 leukocytes 2 % 0-10 Automated blood basophils/100 leukocytes 0 % 0-10 Blood neutrophils automated count (number/volume) 11.1 10*3 1.8-7.8 Blood lymphocytes automated count (number/volume) 1.3 10*3 1.0-4.0 Blood monocytes automated count (number/volume) 0. 9 10*3 0.0-1.0 Automated eosinophil count 0.2 10*3/uL 0 .0-0.3 Automated blood basophil count (count/volume) 0.0 10*3/uL 0.0-0.1 Comprehensive metabolic panel - 08/13/19 05:15 Serum or plasma sodium measurement (moles/volume) 140 mmol/L 135-145 Serum or plasma potassium measurement (moles/volume) 3.3 mmol/L 3.6-5.0 Serum or plasma chloride measurement (moles/volume) 107 mmol/L 98-107 Carbon dioxide 21 mmol/L 21-32 Serum or plasma anion gap determination (moles/volume) 12 mmol/L 5-14 Serum or plasma urea nitrogen measurement (mass/volume ) 13 mg/dL 7-18 Serum or plasma creatinine measurement (mass/volume) 1.33 mg/dL 0.60-1.30 Serum or plasma urea nitrogen/creatinine mass ratio 10 NRG Serum or plasma creatinine measurement w ith calculation of estimated glomerular filtration rate 40 NRG Serum or plasma glucose measurement (mass/volume) 83 mg/dL 70-105 Serum or plasma calcium measurement (mass/volume) 8.5 mg/dL 8.5-10.1 Serum or plasma total bilirubin measurement (mass/volu me) 0.5 mg/dL 0.1-1.0 Serum or plasma alkaline phosphatase rey surement (enzymatic activity/volume) 73 U/L 40-136 Serum or plasma aspartate aminotransfera se measurement (enzymatic activity/volume) 12 U/L 5-34 Serum or plasma alanine aminotransferase measurement (enzymatic activity/volume) 11 U/L 0-55 Serum or plasma protein measurement (mass/volume) 6.1 g/dL 6.4-8.2 Serum or plasma albumin measurement (mass/volume) 2.9 g/dL 3.2-4.5 CALCIUM CORRECTED 9.4 mg/dL 8.5-10.1 Capillary blood glucose measurement by g lucometer (mass/volume) - 08/13/19 05:16 Capillary blood glucose measurement by glucometer (mas s/volume) 90 mg/dL 70-110 Capillary blood glucose measurement by g lucometer (mass/volume) - 08/13/19 11:10 Capillary blood glucose measurement by glucometer (mas s/volume) 178 mg/dL 70-110 Capillary blood glucose measurement by g lucometer (mass/volume) - 08/13/19 15:42 Capillary blood glucose measurement by glucometer (mas s/volume) 219 mg/dL 70-110 Capillary blood glucose measurement by g lucometer (mass/volume) - 08/13/19 21:06 Capillary blood glucose measurement by glucometer (mas s/volume) 180 mg/dL 70-110 Complete blood count (CBC) with automate d white blood cell (WBC) differential - 08/14/19 04:45 Blood leukocytes automated count (number/volume) 10.3 10*3/uL 4.3-11.0 Blood erythrocytes automated count (number/volume) 3.58 10*6/uL 4.35-5.85 Venous blood hemoglobin measurement (mass/volume) 8.5 g/dL 11.5-16.0 Blood hematocrit (volume fraction) 29 % 35-52 Automated erythrocyte mean corpuscular volume 80 [ foz_us] 80-99 Automated erythrocyte mean corpuscular h emoglobin (mass per erythrocyte) 24 pg 25-34 Automated erythrocyte mean corpuscular h emoglobin concentration measurement (mass/volume) 30 g/dL 32-36 Automated erythrocyte distribution width ratio 17. 4 % 10.0- 14.5 Automated blood platelet count (count/volume) 226 10*3/uL 130-400 Automated blood platelet mean volume measurement 9.6 [foz_us] 7.4-10.4 Automated blood neutrophils/100 leukocytes 78 % 42-75 Automated blood lymphocytes/100 leukocytes 11 % 12-44 Blood monocytes/100 leukocytes 8 % 0-12 Automated blood eosinophils/100 leukocytes 3 % 0-10 Automated blood basophils/100 leukocytes 0 % 0-10 Blood neutrophils automated count (number/volume) 8.1 10*3 1.8-7.8 Blood lymphocytes automated count (number/volume) 1.1 10*3 1.0-4.0 Blood monocytes automated count (number/volume) 0. 8 10*3 0.0-1.0 Automated eosinophil count 0.3 10*3/uL 0 .0-0.3 Automated blood basophil count (count/volume) 0.0 10*3/uL 0.0-0.1 Comprehensive metabolic panel - 08/14/19 04:45 Serum or plasma sodium measurement (moles/volume) 138 mmol/L 135-145 Serum or plasma potassium measurement (moles/volume) 3.7 mmol/L 3.6-5.0 Serum or plasma chloride measurement (moles/volume) 107 mmol/L 98-107 Carbon dioxide 22 mmol/L 21-32 Serum or plasma anion gap determination (moles/volume) 9 mmol/L 5-14 Serum or plasma urea nitrogen measurement (mass/volume ) 15 mg/dL 7-18 Serum or plasma creatinine measurement (mass/volume) 1.57 mg/dL 0.60-1.30 Serum or plasma urea nitrogen/creatinine mass ratio 10 NRG Serum or plasma creatinine measurement w ith calculation of estimated glomerular filtration rate 33 NRG Serum or plasma glucose measurement (mass/volume) 80 mg/dL 70-105 Serum or plasma calcium measurement (mass/volume) 8.9 mg/dL 8.5-10.1 Serum or plasma total bilirubin measurement (mass/volu me) 0.3 mg/dL 0.1-1.0 Serum or plasma alkaline phosphatase rey surement (enzymatic activity/volume) 73 U/L 40-136 Serum or plasma aspartate aminotransfera se measurement (enzymatic activity/volume) 11 U/L 5-34 Serum or plasma alanine aminotransferase measurement (enzymatic activity/volume) 12 U/L 0-55 Serum or plasma protein measurement (mass/volume) 6.4 g/dL 6.4-8.2 Serum or plasma albumin measurement (mass/volume) 2.8 g/dL 3.2-4.5 CALCIUM CORRECTED 9.9 mg/dL 8.5-10.1 Capillary blood glucose measurement by g lucometer (mass/volume) - 08/14/19 05:24 Capillary blood glucose measurement by glucometer (mas s/volume) 84 mg/dL 70-110 Vancomycin trough - 08/14/19 09:15 Vancomycin trough 20.7 ug/mL 10.0-20.0 Capillary blood glucose measurement by g lucometer (mass/volume) - 08/14/19 11:39 Capillary blood glucose measurement by glucometer (mas s/volume) 230 mg/dL 70-110 Capillary blood glucose measurement by g lucometer (mass/volume) - 08/14/19 15:34 Capillary blood glucose measurement by glucometer (mas s/volume) 161 mg/dL 70-110 Capillary blood glucose measurement by g lucometer (mass/volume) - 08/14/19 20:46 Capillary blood glucose measurement by glucometer (mas s/volume) 232 mg/dL 70-110 Capillary blood glucose measurement by g lucometer (mass/volume) - 08/15/19 06:30 Capillary blood glucose measurement by glucometer (mas s/volume) 68 mg/dL 70-110 Capillary blood glucose measurement by g lucometer (mass/volume) - 08/15/19 09:23 Capillary blood glucose measurement by glucometer (mas s/volume) 269 mg/dL 70-110 Encounters ACCT No. Visit Date/Time Discharge Status Pt. Type Provider Facility Loc./Unit Complaint [id number] 08/12/2019 11:45:00 12:30:00 DIS Outpatient ALEJANDRA RUSH DO [facility] 4TH SEPSIS,CELLULITIS LLE [id number] 07/28/2019 11:30:00 12:25:00 DIS Outpatient EUSEBIO WARD MD [facility] 4TH ANEMIA,OCCULT POS STOOL [id number] 07/14/2019 10:44:00 15:50:00 DIS Outpatient BERTHA CASTELLON DO [facility] SDC THICKENED ENDOMETRIUM A ND ENDOMETRIAL POLYP [id number] 07/05/2019 12:02:00 12:40:00 DIS Outpatient BERTHA CASTELLON DO [facility] PREOP HYSTEROSCOPY, D C [id number] 06/26/2019 08:10:00 23:59:59 CLS Outpatient DONYA YUAN DO [facility] RAD CHRONIC KIDNEY DISEASE STAGE 3 [id number] 06/19/2019 12:06:00 23:59:59 CLS Outpatient BERTHA CASTELLON DO [facility] RAD POST-MENOPAUSAL BLEEDING,ENDOMETRIAL POLYP [id number] 05/31/2019 16:07:00 019 11:50:00 DIS Outpatient ALEJANDRA RUSH DO [facility] 4TH LLL PNA [id number] 05/04/2019 04:44:00 019 09:46:00 DIS Emergency LEE CHOWDHURY, SAMINA May [facility] ER SOA [id number] 04/19/2019 13:38:00 019 13:25:00 DIS Inpatient ED CHOWDHURY, EUSEBIO Raymundo [facility] 4TH UROSEPSIS [id number] 02/19/2019 08:04:00 019 14:26:00 DIS Emergency LEE CHOWDHURY, SAMINA May [facility] ER CHEST PAIN [id number] 10/11/2018 07:07:00 019 10:00:00 DIS Outpatient LOU HARDIN DO [facility] ENDO SCREENING/REFLUX [id number] 09/14/2018 05:41:00 019 09:37:00 DIS Outpatient HARDIN LOU BOND [facility] PREOP COLONOSCOPY/EGD [id number] 10/13/2017 00:30:00 018 14:35:00 DIS Inpatient ED CHOWDHURY, EUSEBIO Raymundo [address] R LOWER LEG CELLULITIS; L LOWER LEG FOOT [id number] 09/10/2017 09:12:00 017 23:59:59 CLS Outpatient JOSH THAYER [facility] CELLULITIS [id number] 09/03/2017 13:34:00 017 23:59:59 CLS Outpatient HERMINIA YAO MD [facility] SEE ORDER [id number] 08/29/2017 01:00:00 017 12:00:00 DIS Inpatient HERMINIA YAO MD [facility] 4TH SEPSIS; L LEG CELLULITI S; UTI; BRONCHITIS [id number] 03/27/2017 20:53:00 017 13:20:00 DIS Inpatient DEBORAH CHOWDHURY, BOBBI Chaparro [facility] 4TH RESPIRATORY ARR EST, ASPIRATION, LEUKOCYTOSIS, ARF [id number] 04/16/2016 07:40:00 016 12:50:00 DIS Outpatient ESTEPHANIE STANOFRD MD [facility] SDC SINUSITIS [id number] 04/09/2016 13:09:00 016 14:00:00 DIS Outpatient ESTEPHANIE STANFORD MD [facility] PREOP SINUSITIS [id number] 03/13/2016 10:23:00 016 23:59:59 CLS Outpatient MARKO LAURENP [facility] RAD RT NASAL MASS [id number] 09/10/2014 18:28:00 014 23:59:59 CLS Outpatient MARIAN BRANDT MD [facility] MSL UTI [id number] 11/06/2013 09:46:00 014 23:59:59 CLS Outpatient KYLE FISHMAN, MARIA Victor [facility] CARD IDDM,HYPERLIPIDEMIA,HTN [id number] 12/24/2014 12:50:00 Document Registration [id number] 12/24/2014 12:50:00 Document Registration [id number] 11/03/2011 10:50:00 Document Registration [id number] 10/27/2011 10:30:00 Document Registration [id number] 01/11/2011 10:52:00 Document Registration
== END 2019-08-15 12:30 | DRG 872 ==
LOC: EDUNIT# 09:31 → ER 09:32 → 4TH 11:45
PROVIDERS: ADMIT Internal Medicine; ATTEND Internal Medicine
DX: A41.9 Sepsis, unspecified organism (principal); L03.116 Cellulitis of left lower limb; I13.0 Hypertensive heart and chronic kidney disease with heart failure and stage 1 through stage 4 chronic kidney disease, or unspecified chronic kidney disease; N18.4 Chronic kidney disease, stage 4 (severe); I50.9 Heart failure, unspecified; L12.0 Bullous pemphigoid; N39.0 Urinary tract infection, site not specified; E66.01 Morbid (severe) obesity due to excess calories; Z68.41 Body mass index [BMI] 40.0-44.9, adult; K92.2 Gastrointestinal hemorrhage, unspecified; I69.354 Hemiplegia and hemiparesis following cerebral infarction affecting left non-dominant side; B96.1 Klebsiella pneumoniae [K. pneumoniae] as the cause of diseases classified elsewhere; E78.5 Hyperlipidemia, unspecified; G47.33 Obstructive sleep apnea (adult) (pediatric); D64.9 Anemia, unspecified; I48.0 Paroxysmal atrial fibrillation; K21.9 Gastro-esophageal reflux disease without esophagitis; E11.40 Type 2 diabetes mellitus with diabetic neuropathy, unspecified; F32.9 Major depressive disorder, single episode, unspecified; I89.0 Lymphedema, not elsewhere classified; E87.6 Hypokalemia; K59.09 Other constipation; E78.00 Pure hypercholesterolemia, unspecified; I69.391 Dysphagia following cerebral infarction; I25.10 Atherosclerotic heart disease of native coronary artery without angina pectoris; F41.9 Anxiety disorder, unspecified; Z86.718 Personal history of other venous thrombosis and embolism; Z79.4 Long term (current) use of insulin; Z74.01 Bed confinement status; Z88.2 Allergy status to sulfonamides
CPT/HCPCS: 36415; 51702; 71045; 80053; 80202; 81000; 82962; 83605; 83880; 85007; 85025; 85027; 85610; 85730; 87040; 87077; 87088; 87186; 94640; 94760; 96361; 96365

== ENCOUNTER → 2020-04-29 | Outpatient (CLI) | payer MEDICARE, MEDICAID ==
[~2020-04-29] MED LIST changes: +ACET-2267 PO; -ACET-77 PO; +ACET-78 PO; +BLOO1STR MC; +BLOOD SUGAR; +CHOL500044 PO; +DAPA10TA PO; +DESENEX; -DIGO250T PO; +DIGO250T3 PO; +DILT-28 PO; -DILT180C90 PO; +ENOX40DI8 SC; +FAMO-119 PO; +FLUT1AER IH; +FURO20TA4 PO; +GABA300C PO; +GUAI-790 PO; +Gabapentin PO; +HYDR-3584 PO; +HYDR-3781 PO; +IPRA3AMP31 IH; +LINE600T12 PO; -MEGE40TA PO; +MEGE40TA5 PO; -MELA3TAB PO; +MELA3TAB39 PO; +MERO500P IV; -METO-395 PO; +MTP100TCR PO; +OXYC5TAB96 PO; +POTA10TA6 PO; +SERT50TA9 PO; +SODI30SP2 NS; +VANC1.5V3 IV; -ZINC56.7 TP; +ZINC56.715 TP
== END ==
LOC: LABNPT 12:35
PROVIDERS: ATTEND Internal Medicine
DX: Z01.89 Encounter for other specified special examinations (principal)
CPT/HCPCS: 80202

== ENCOUNTER 2020-04-30 10:24 | Emergency (ER) | payer MEDICARE, MEDICAID ==
[~2020-04-30] VITALS: Ht 167 cm; Wt 119.0 kg
[~2020-04-30 10:24] MED LIST changes: -IPRA3AMP31 IH
[2020-04-30] MEDS ORDERED: LIDOCAINE/EPI 2% 1:100,00 (XYLOCAINE) 20 ML VIAL INJ ONE (10:45)
[2020-04-30] MEDS ORDERED: TETANUS,DIPTH,PERTUSS P/F (BOOSTRIX) 0.5 ML VIAL IM ONE (10:45)
--- NOTE | 2020-04-30 10:54 | NUR ---
Recieved report from STEFANY Huffman to assume pt care at this time.
--- NOTE | 2020-04-30 11:28 | Diagnostic Imaging Report ---
INDICATION: Laceration to lower left leg. IV pole fell on patient. TECHNIQUE: AP and lateral views of the left tibia and fibula CORRELATION STUDY: None FINDINGS: Assessment is limited given overlying artifact. There is what appears to be a soft tissue defect along the lower anterior leg. No significant soft tissue foreign body. There is generalized bony demineralization present. No acute fracture of the tibia and/or fibula. There is rather significantly advanced tricompartment degenerative changes at the left knee. This includes joint space narrowing and osteophyte formation. At the ankle also appears to be degenerative change. IMPRESSION: 1.Negative for acute bony abnormality of the leg. 2. Soft tissue edema and defect over the anterior lower left leg. No evidence for soft tissue foreign body. Dictated by: Dictated on workstation # [id number]
[2020-04-30] MEDS ORDERED: RT-ALBUTEROL/IPRATROPIUM 3 ML (DUONEB) VIAL INH ONE (11:45)
--- NOTE | 2020-04-30 12:08 | ED Lower Extremity ---
General Chief Complaint: Laceration Stated Complaint: LACERATION TO LEFT LEG Nursing Triage Note: PT TO TRIAGE PER W/C FROM [facility] STAFF. PT HAS LAC TO L LOWER LEVY AREA. [facility] STAFF STATES IV POLE FELL ON PT L LEG CAUSING LAC CIRCULAR AREA LAC NOTED APPROX 5X3CM. PT CO OF PAIN /. PT IS GETTING IV VANCOMYCIN FOR LOWER EXT CELLULITIS Nursing Sepsis Screen: No Definite Risk Source: patient, caregiver Exam Limitations: no limitations (SAMINA HOWARD MD) History of Present Illness Date Seen by Provider: Apr 30, 2020 Time Seen by Provider: 10:26 Initial Comments This 69-year-old woman presents to the emergency room with extensive laceration to the right lower leg after an IV pole fell on it. Patient is also noted to have forced expirations indicative of COPD exacerbation. It is noted that she does not have any bronchodilator therapies on her med list. She does take Breo. Patient denies feeling short of breath despite her obvious increased work of breathing. (SAMINA HOWARD MD) Allergies and Home Medications Allergies Coded Allergies: sulfamethoxazole (Verified Allergy, Unknown, 10/13/17) trimethoprim (Verified Allergy, Unknown, 10/13/17) Home Medications Acetaminophen 500 Mg Tablet, 1,000 MG PO Q6H PRN for PAIN-MILD OR TEMPATURE, (Reported) Acetaminophen 500 Mg Tablet, 500 MG PO HS PRN for PAIN-MODERATE (5-7), (Reported) Albuterol Sulfate 2.5 Mg/3 Ml Vial.neb, 2.5 MG NEB Q4H PRN for SHORTNESS OF BREATH, (Reported) Amlodipine Besylate 5 Mg Tablet, 5 MG PO DAILY, (Reported) HOLD IF SBP<110 Aspirin 81 Mg Tablet.dr, 81 MG PO BID, (Reported) Atorvastatin Calcium 40 Mg Tablet, 40 MG PO HS, (Reported) B Complex with Vitamin C 1 Each Tablet, 1 EACH PO DAILY, (Reported) Bethanechol Chloride 10 Mg Tablet, 10 MG PO BID, (Reported) Bisacodyl 10 Mg Supp.rect, 10 MG RC DAILY PRN for CONSTIPATION-4TH LINE, (Reported) Cephalexin 500 Mg Tablet, 500 MG PO TID Prescribed by: MARYBETH DUDLEY on 04/30/20 1214 Cholecalciferol (Vitamin D3) 125 Mcg Tablet, 125 MCG PO HS, (Reported) Cinnamon Bark 500 Mg Capsule, 1,000 MG PO DAILY, (Reported) TAKES 2 (500 MG) CAPSULES Cranberry Extract 500 Mg Tablet, 1,000 MG PO DAILY, (Reported) Dapagliflozin Propanediol 10 Mg Tablet, 10 MG PO DAILY, (Reported) Diltiazem HCl 180 Mg Tab.er.24h, 180 MG PO DAILY, (Reported) Docusate Sodium 100 Mg Capsule, 100 MG PO BID, (Reported) HOLD FOR LOOSE STOOLS Dronedarone HCl 400 Mg Tablet, 400 MG PO BID, (Reported) Dulaglutide 1.5 Mg/0.5 Ml Pen.injctr, 1.5 MG SQ THUR, (Reported) Enoxaparin Sodium 40 Mg/0.4 Ml Syringe, 40 MG SC Q12H Prescribed by: ALEJANDRA RUSH on 04/26/20 1118 Famotidine 20 Mg Tablet, 20 MG PO DAILY, (Reported) Ferrous Sulfate 325 Mg Tablet, 325 MG PO DAILY, (Reported) Fluticasone Propionate 16 Gm [place].susp, 2 SPRAYS NS DAILY, (Reported) Fluticasone/Vilanterol 1 Each Blst.w.dev, 1 EACH IH DAILY, (Reported) Furosemide 40 Mg Tablet, 40 MG PO DAILY, (Reported) Furosemide 20 Mg Tablet, 20 MG PO 1700, (Reported) Gluc Angulo/Chondro Angulo A/Vit C/Mn 1 Each Tablet, 2 TAB PO DAILY, (Reported) Guaifenesin/Dextromethorphan 118 Ml Liquid, 10 ML PO Q4H PRN for COUGH, (Reported) Hydroxyzine HCl 10 Mg Tablet, 10 MG PO BID, (Reported) Hydroxyzine Pamoate 25 Mg Capsule, 25 MG PO HS, (Reported) Insulin Aspart 100 Unit/1 Ml Susp, 30 UNIT SQ TID, (Reported) Insulin Detemir 100 Unit/1 Ml Insuln.pen, 35 UNIT SQ HS, (Reported) Insulin Detemir 100 Unit/1 Ml Insuln.pen, 40 UNIT SQ DAILY, (Reported) Ipratropium/Albuterol Sulfate 3 Ml Ampul.neb, 3 ML IH Q6H PRN for SHORTNESS OF BREATH Prescribed by: MARYBETH DUDLEY on 04/30/20 1214 Lidocaine 1 Each Adh..patch, 1 PATCH TD DAILY, (Reported) 4% APPLY TO UPPER RIGHT THIGH Magnesium Hydroxide 400 Mg/5 Ml Oral.susp, 30 ML PO DAILY PRN for CONSTIPATION- 7TH LINE, (Reported) Megestrol Acetate 40 Mg Tablet, 80 MG PO DAILY, (Reported) TAKES 2 (40MG) TABLETS Melatonin 3 Mg Tablet, 3 MG PO HS, (Reported) Meropenem-0.9% Sodium Chloride 500 Mg/50 Ml Piggyback, 500 MG IV Q8H Prescribed by: ALEJANDRA RUSH on 04/26/201117 Metoprolol Succinate 100 Mg Tab.er.24h, 100 MG PO DAILY, (Reported) HOLD FOR SYSTOLIC BP <100 AND HEART RATE <60 Miconazole Nitrate 10 Gm Powder, TOP BID, (Reported) APPLY TO GROIN AND UNDER BREASTS Multivits W-Fe,Other Min/Lut 1 Each Tablet, 1 TAB PO TID, (Reported) [place]-3/Dha/Epa/Fish Oil 1 Each Capsule, 2 CAP PO DAILY, (Reported) Oxycodone HCl 5 Mg Tablet, 5 MG PO Q4H PRN for PAIN-SEVERE (8-10) Prescribed by: ALEJANDRA RUSH on 04/26/201117 Pantoprazole Sodium 40 Mg Tablet.dr, 40 MG PO 1400 Prescribed by: ALEJANDRA RUSH on 04/26/201117 Phenyleph/Mineral Oil/Petrolat 57 Gm Oint.appl, RC Q12H PRN for HEMORRHOIDS, (Reported) Potassium Chloride 10 Meq Tablet.er, 10 MEQ PO DAILY@0700 Prescribed by: ALEJANDRA RUSH on 04/26/201117 Sertraline HCl 50 Mg Tablet, 50 MG PO HS, (Reported) Sodium Chloride 30 Ml [place], 2 SPRAY NS Q4H PRN for DRY NOSE, (Reported) Sucralfate 1 Gm Tablet, 1 GM PO QID Prescribed by: ALEJANDRA RUSH on 04/26/201117 Valerian Root 500 Mg Capsule, 530 MG PO DAILY PRN for ANXIETY, (Reported) Vancomycin HCl in Water 1.5 Gm/15 Ml Vial, 1.5 GM IV DAILY Prescribed by: ALEJANDRA RUSH on 04/26/201117 [Blood Sugar 360] , 1 CAP PO UD PRN for BLOOD SUGAR MAINTENANCE, (Reported) [Gabapentin] 300 MG CAP, 300 MG PO BID Prescribed by: ALEJANDRA RUSH on 04/26/201117 [digize oil] , TOP UD PRN for DIGESTIVE DIFFICULTIES, (Reported) MAY BE USED TOPICALLY OR DABBED INSIDE MOUTH ON CHEEK, KEEP AT BEDSIDE AND SELF ADMINISTER FOR DIGESTIVE DIFFICULTIES. Patient Home Medication List Home Medication List Reviewed: Yes (SAMINA HOWARD MD) Home Medication List Reviewed: Yes (MARYBETH DUDLEY) Review of Systems Constitutional: no symptoms reported EENTM: no symptoms reported Respiratory: see HPI Cardiovascular: no symptoms reported Gastrointestinal: no symptoms reported Genitourinary: no symptoms reported : No Musculoskeletal: see HPI Skin: see HPI Psychiatric/Neurological: No Symptoms Reported (SAMINA HOWARD MD) Past Pqoouwd-Rvhafh-Kwditr Hx Patient Social History Alcohol Use: Denies Use Recreational Drug Use: No Smoking Status: Former Smoker Type Used: Cigarettes Former Smoker, Quit: Sep 13, 1999 2nd Hand Smoke Exposure: No Recent Foreign Travel: No Contact w/Someone Who Travel: No Recent Infectious Disease Expo: No Recent Hopitalizations: Yes Physical Abuse: No Sexual Abuse: No (SAMINA HOWARD MD) Immunizations Up To Date Tetanus Booster (TDap): Unknown PED Vaccines UTD: No (SAMINA HOWARD MD) Seasonal Allergies Seasonal Allergies: No (SAMINA HOWARD MD) Past Medical History Surgeries: Yes Joint Replacement, Nose, Orthopedic Respiratory: Yes (03/2017-REPSIRATORY ARREST DUE TO ASPIRATION WITH ASPIRATION PNEUMONIA, O2) COPD Currently Using CPAP: No Currently Using BIPAP: No Cardiac: Yes Atrial Fibrillation, Chronic Edema/Swelling, Coronary Artery Disease, High Cholesterol, Hypertension Neurological: Yes (STOKE LEFT SIDE WEAKNESS) Neuropathy, Stroke 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 Genitourinary: Yes UTI-Chronic Gastrointestinal: No Gastroesophageal Reflux, Chronic Constipation, Hemorrhoids, Ulcer Musculoskeletal: Yes (SPASMS IN L ARM FROM STROKE) Arthritis Endocrine: Yes Diabetes, Insulin dep HEENT: No Dysphagia Loss of Vision: Denies Hearing Impairment: Denies Cancer: No Psychosocial: Yes Sleep Difficulties, Anxiety, Depression Integumentary: No Blood Disorders: No (SAMINA HOWARD MD) Family Medical History Completed stroke 19 FATHER G8 BROTHER Diabetes mellitus G8 BROTHER Hypertension 19 FATHER 19 MOTHER CVA, Diabetes (SAMINA HOWARD MD) Physical Exam Vital Signs Vital Signs - First Documented 04/30/20 10:25 Temp 36.5 Pulse 72 Resp 18 B/P (MAP) 133/76 (95) Pulse Ox 99 (MARYBETH DUDLEY) Vital Signs Capillary Refill : Less Than 3 Seconds (SAMINA HOWARD MD) Height, Weight, BMI Height: 5'6.00" Weight: 118lbs. 0.5oz. [id number]; 42.00 BMI Method:Estimated General Appearance: WD/WN, no apparent distress HEENT: normal ENT inspection Neck: normal inspection Cardiovascular: regular rate, rhythm, no murmur, other (Moderate edema of the lower extremities) Respiratory: lungs clear; No wheezing; other (Increased work of breathing with abdominal muscle use during expiration) Gastrointestinal: non tender, soft Legs: left leg other (There is a large flap laceration with mild bleeding over the anterior left lower leg) Knees: left knee non-tender, left knee normal inspection, left knee normal range of motion, left knee no evidence of injury Ankles: left ankle non-tender, left ankle normal inspection, left ankle normal range of motion, left ankle no evidence of injury Feet: left foot non-tender, left foot normal inspection, left foot normal range of motion, left foot no evidence of injury (SAMINA HOWARD MD) Procedures/Interventions Date of ETT Placement: May 04, 2019 Time of ETT Placement: 611 (SAMINA HOWARD MD) Wound Location: Lower Extremities (Left medial ankle) Wound Length (cm): 14 Wound's Depth, Shape: superficial Wound Explored: clean Irrigated w/ Saline (ccs): 1000 Betadine Prep?: Yes Anesthesia: Lidocaine w/ Epi Volume Anesthetic (ccs): 10 Suture: Ethlion Suture Size: 4-0 Number of Sutures: 13 Sterile Dressing Applied?: Yes Progress Wound well approximated, patient tolerated suture without complications. Bulky sterile dressing applied. (MARYBETH DUDLEY) Progress/Results/Core Measures Results/Orders Medications Given in ED Current Medications Medications Dose Ordered Sig/Helen Route Start Time Stop Time Status Last Admin Dose Admin Albuterol/ Ipratropium 3 ml ONCE ONCE INH 04/30/20 11:45 04/30/20 11:46 DC 04/30/20 12:13 3 ML Diphtheria/ Tetanus/Acell Pertussis 0.5 ml ONCE ONCE IM 04/30/20 10:45 04/30/20 10:46 DC 04/30/20 11:07 0.5 ML Lidocaine/ Epinephrine 20 ml ONCE ONCE INJ 04/30/20 10:45 04/30/20 10:46 DC 04/30/20 12:00 20 ML (LUIS ENRIQUEMARYBETH POWERS) Vital Signs/I&O 04/30/20 10:25 Temp 36.5 Pulse 72 Resp 18 B/P (MAP) 133/76 (95) Pulse Ox 99 (MARYBETH DUDLEY GIO) Blood Pressure Mean: 95 Progress Progress Note : Progress Note X-ray was obtained to rule out any bony injury. No bony injury was identified. Patient received a DuoNeb treatment for COPD exacerbation. Wound was cared for and approximated by Marybeth Dudley NP along with Bekah Bermudez, MS 3 (SAMINA HOWARD MD) Diagnostic Imaging Diagonstic Imaging: Xray Plain Films/CT/US/NM/MRI: leg Comments Tib-fib x-ray viewed by me and report reviewed. See report below: NAME: MIRIAM RODRIGUES MED REC#: [id number] PT STATUS: DEP ER : 1950 PHYSICIAN: SAMINA HOWARD MD ADMIT DATE: 04/30/20/ER Signed Date of Exam:04/30/20 TIBIA/FIBULA, LEFT, 2 VIEWS INDICATION: Laceration to lower left leg. IV pole fell on patient. TECHNIQUE: AP and lateral views of the left tibia and fibula CORRELATION STUDY: None FINDINGS: Assessment is limited given overlying artifact. There is what appears to be a soft tissue defect along the lower anterior leg. No significant soft tissue foreign body. There is generalized bony demineralization present. No acute fracture of the tibia and/or fibula. There is rather significantly advanced tricompartment degenerative changes at the left knee. This includes joint space narrowing and osteophyte formation. At the ankle also appears to be degenerative change. IMPRESSION: 1.Negative for acute bony abnormality of the leg. 2. Soft tissue edema and defect over the anterior lower left leg. No evidence for soft tissue foreign body. Dictated by: Dictated on workstation # [id number] Dict: 04/30/20 1123 Trans: 04/30/20 1542 [id number] Interpreted by: THERESA VALLES DO Electronically signed by: THERESA VALLES DO 04/30/20 1542 (SAMINA HOWARD MD) Departure Impression Primary Impression: Laceration of left lower extremity Qualified Codes: S81.812A - Laceration without foreign body, left lower leg, initial encounter Additional Impressions: Type 1 diabetes mellitus Qualified Codes: E10.69 - Type 1 diabetes mellitus with other specified complication Edema of both lower extremities COPD exacerbation Disposition: HOME, SELF-CARE Condition: Improved Departure-Patient Inst. Decision time for Depature: 12:05 (MARYBETH DUDLEY) Referrals: HERMINIA YAO MD (PCP/Family) Primary Care Physician Patient Instructions: Laceration Repair With Stitches (DC) Add. Discharge Instructions: Keep the dressing dry and in place for 24 hours, you may re-inforce if needed. Do not submerge the wound in standing water (tub, pool, sink, pagan, etc). Leave sutures in place, have nurse at [facility] remove in 10 days. You may shower, do not have water hit directly over wound. Clean with peroxide after shower, leave open to air when at home, cover with dressing or band-aid when out of the house. Watch for signs of infection: Redness, increased tenderness, warmth, discolored drainage or foul smelling drainage. Daily skin assessments BID. Take antibiotics as prescribed, consider wound care, if not healing or becomes infected. Use Nebulized breathing treatments every 4-6 hours. Return to the emergency department for new, urgent health care problems. All discharge instructions reviewed with patient and/or family. Voiced underst anding. Scripts Ipratropium/Albuterol Sulfate (Iprat-Albut 0.5-3(2.5) mg/3 ml) 3 Ml Ampul.neb 3 ML IH Q6H PRN for SHORTNESS OF BREATH, #30 2 Refills Prov: MARYBETH DUDLEY 04/30/20 Cephalexin (Cephalexin) 500 Mg Tablet 500 MG PO TID, #15 TAB 0 Refills Prov: MARYBETH DUDLEY 04/30/20 Copy Copies To 1: HERMINIA YAO MD, JOSHUA T MD Apr 30, 2020 12:08 MARYBETH DUDLEY Apr 30, 2020 12:15
[2020-04-30] MEDS ORDERED: CEPH500T PO (12:14)
[2020-04-30] MEDS ORDERED: IPRA3AMP31 IH (12:14)
[2020-04-30 12:29] VITALS: BP 133/70
== END 2020-04-30 12:29 | disposition home or self-care (01) ==
LOC: EDUNIT# 10:24 → ER 10:25
DX: S81.812A Laceration without foreign body, left lower leg, initial encounter (principal); E10.40 Type 1 diabetes mellitus with diabetic neuropathy, unspecified; R60.0 Localized edema; J44.1 Chronic obstructive pulmonary disease with (acute) exacerbation; I48.91 Unspecified atrial fibrillation; E78.00 Pure hypercholesterolemia, unspecified; I10 Essential (primary) hypertension; I25.10 Atherosclerotic heart disease of native coronary artery without angina pectoris; K21.9 Gastro-esophageal reflux disease without esophagitis; F32.9 Major depressive disorder, single episode, unspecified; F41.9 Anxiety disorder, unspecified; K59.09 Other constipation; Z88.2 Allergy status to sulfonamides; Z86.73 Personal history of transient ischemic attack (TIA), and cerebral infarction without residual deficits; Z88.1 Allergy status to other antibiotic agents; Z79.82 Long term (current) use of aspirin; Z79.01 Long term (current) use of anticoagulants; Z79.51 Long term (current) use of inhaled steroids; Z23 Encounter for immunization; Z79.4 Long term (current) use of insulin; Z87.891 Personal history of nicotine dependence; W20.8XXA Other cause of strike by thrown, projected or falling object, initial encounter
CPT/HCPCS: 12032; 73590; 90715

== ENCOUNTER → 2020-09-06 | Outpatient (CLI) | payer MEDICARE, MEDICAID ==
[~2020-09-06] MED LIST changes: +AMLO-250 PO; -AMLO5TAB9 PO; +ASPI-1238 PO; -ASPI-983 PO; +DILT240C90 PO; +FLUC100T PO; +IPRA3AMP31 IH; +OXYC5TAB PO; -OXYC5TAB96 PO; +PANT20TA18 PO; -PANT20TA3 PO; -PANT40TA3 PO; +PANT40TA52 PO; +POTA10CA43 PO
[2020-09-06 18:36] LABS: BILIRUBIN,URINE NEGATIVE (NEGATIVE); CLARITY,URINE CLOUDY; COLOR,URINE YELLOW; GLUCOSE, URINE (UA) 3+ (NEGATIVE); KETONES,URINE NEGATIVE (NEGATIVE); LEUKOCYTE ESTERASE ,URINE 1+ (NEGATIVE); NITRITE,URINE NEGATIVE (NEGATIVE); PROTEIN,URINE TRACE (NEGATIVE)
[2020-09-06 18:37] LABS: BASOPHILS % (AUTO) 1 % (0-10); EOSINOPHILS # (AUTO) 0.3 10^3/uL (0.0-0.3); EOSINOPHILS % (AUTO) 3 % (0-10); HEMATOCRIT 41 % (35-52); HEMOGLOBIN 12.4 g/dL (11.5-16.0); LYMPHOCYTES # (AUTO) 1.7 10^3/uL (1.0-4.0); LYMPHOCYTES % (AUTO) 20 % (12-44); MEAN CORPUSCULAR HEMOGLOBIN 26 pg (25-34); MEAN CORPUSCULAR HGB CONC 30 g/dL (32-36); MEAN CORPUSCULAR VOLUME 86 fL (80-99); MEAN PLATELET VOLUME 10.5 fL (9.0-12.2); MONOCYTES # (AUTO) 0.6 10^3/uL (0.0-1.0); MONOCYTES % (AUTO) 7 % (0-12); NEUTROPHILS % (AUTO) 69 % (42-75); PLATELET COUNT 213 10^3/uL (130-400); WHITE BLOOD COUNT 8.7 10^3/uL (4.3-11.0)
[2020-09-06 18:45] LABS: BACTERIA,URINE TRACE /HPF; RBC,URINE 25-50 /HPF; WBC,URINE 0-2 /HPF
[2020-09-06 18:46] LABS: AMORPHOUS SEDIMENT,UR FEW AMOR URATES /LPF; SQUAMOUS EPITHELIAL CELL,UR 0-2 /HPF
[2020-09-06 18:51] LABS: ALBUMIN 3.9 GM/DL (3.2-4.5); POTASSIUM 4.3 MMOL/L (3.6-5.0)
[2020-09-06 18:52] LABS: CALCIUM 8.6 MG/DL (8.5-10.1)
[2020-09-06 18:53] LABS: TOTAL PROTEIN 7.5 GM/DL (6.4-8.2)
[2020-09-06 18:55] LABS: BILIRUBIN,TOTAL 0.2 MG/DL (0.1-1.0)
[2020-09-06 18:57] LABS: CREATININE SERUM 2.03 MG/DL (0.60-1.30)
== END ==
PROVIDERS: ATTEND Family Medicine
DX: R41.89 Other symptoms and signs involving cognitive functions and awareness (principal); Z73.6 Limitation of activities due to disability
CPT/HCPCS: 80053; 81000; 85025; 87088

== ENCOUNTER 2020-09-08 13:52 | Inpatient (IN) | payer MEDICARE, MEDICAID ==
[~2020-09-08] VITALS: Ht 160 cm; Wt 124.4 kg
[~2020-09-08 13:52] MED LIST changes: -DILT240C90 PO; -FLUC100T PO; -OXYC5TAB PO; -POTA10CA43 PO
[2020-09-08 14:45] LABS: BASOPHILS # (AUTO) 0.1 10^3/uL (0.0-0.1); BASOPHILS % (AUTO) 0 % (0-10); EOSINOPHILS # (AUTO) 0.2 10^3/uL (0.0-0.3); EOSINOPHILS % (AUTO) 1 % (0-10); HEMATOCRIT 42 % (35-52); LYMPHOCYTES # (AUTO) 1.1 10^3/uL (1.0-4.0); LYMPHOCYTES % (AUTO) 6 % (12-44); MEAN CORPUSCULAR HEMOGLOBIN 26 pg (25-34); MEAN CORPUSCULAR HGB CONC 31 g/dL (32-36); MEAN CORPUSCULAR VOLUME 84 fL (80-99); MEAN PLATELET VOLUME 10.3 fL (9.0-12.2); MONOCYTES # (AUTO) 1.1 10^3/uL (0.0-1.0); MONOCYTES % (AUTO) 6 % (0-12); NEUTROPHILS # (AUTO) 16.8 10^3/uL (1.8-7.8); NEUTROPHILS % (AUTO) 87 % (42-75); PLATELET COUNT 197 10^3/uL (130-400); WHITE BLOOD COUNT 19.3 10^3/uL (4.3-11.0)
[2020-09-08 14:52] LABS: ALBUMIN 3.9 GM/DL (3.2-4.5)
[2020-09-08 14:53] LABS: POTASSIUM 4.1 MMOL/L (3.6-5.0)
[2020-09-08 14:54] LABS: CALCIUM 9.1 MG/DL (8.5-10.1)
[2020-09-08 14:55] LABS: TOTAL PROTEIN 8.1 GM/DL (6.4-8.2)
[2020-09-08 14:57] LABS: BILIRUBIN,TOTAL 0.3 MG/DL (0.1-1.0)
[2020-09-08 14:59] LABS: CREATININE SERUM 1.55 MG/DL (0.60-1.30)
[2020-09-08 15:06] LABS: BAND NEUTROPHILS 3 %; BASOPHILS % (MANUAL) 1 %; EOSINOPHILS % (MANUAL) 2 %; LYMPHOCYTES % (MANUAL) 11 %; MONOCYTES % (MANUAL) 5 %; NEUTROPHILS % (MANUAL) 78 %; RBC MORPH NORMAL
--- NOTE | 2020-09-08 15:15 | ED General ---
General Chief Complaint: General Problems/Pain Stated Complaint: SOA Nursing Triage Note: ARRIVED VIA WC FROM [facility]. REPORT FROM THERE IS PT IS LETHARGIC AND SLOW TO RESPOND. PT STATES SHE IS FINE SHE JUST DIDNT FEEL LIKE EATING LUNCH. ALSO STATES SHE WAS JUST CLEARING HER THROAT WHEN THE STAFF THOUGHT SHE WAS GRUNTING. Nursing Sepsis Screen: No Definite Risk Source of Information: Patient Exam Limitations: No Limitations History of Present Illness Date Seen by Provider: Sep 08, 2020 Time Seen by Provider: 14:05 Initial Comments Here with report of not feeling well today with mild fever. [facility] were [facility] because they thought that she was lethargic. Exposed to COVID-19 earlier this week. She has test from the [facility] pending but results will not be available for a few days. Staff reported that she was grunting. Patient states that she was nauseated at lunchtime and did not want to eat but did drink her tea. She states the grunting is her just clearing her throat. Does admit to runny nose and mild cough. States overall she feels all right and is not concerned and actually did not want to come but finally relented. She reports taking her meds as directed. She had UA at the facility but results were not known. Timing/Duration: 2-3 Days, Getting Worse Severity: Moderate Associated Systoms: Cough, Fever/Chills, Nausea/Vomiting, Weakness Allergies and Home Medications Allergies Coded Allergies: sulfamethoxazole (Verified Allergy, Unknown, 10/13/17) trimethoprim (Verified Allergy, Unknown, 10/13/17) Home Medications Acetaminophen 500 Mg Tablet, 1,000 MG PO Q6H PRN for PAIN-MILD OR TEMPATURE, (Reported) Acetaminophen 500 Mg Tablet, 500 MG PO HS PRN for PAIN-MODERATE (5-7), ( Reported) Albuterol Sulfate 2.5 Mg/3 Ml Vial.neb, 2.5 MG NEB Q4H PRN for SHORTNESS OF BREATH, (Reported) Amlodipine Besylate 5 Mg Tablet, 5 MG PO DAILY, (Reported) HOLD IF SBP<110 Aspirin 81 Mg Tablet.dr, 81 MG PO DAILY, (Reported) Atorvastatin Calcium 40 Mg Tablet, 40 MG PO HS, (Reported) B Complex with Vitamin C 1 Each Tablet, 1 EACH PO DAILY, (Reported) Bethanechol Chloride 10 Mg Tablet, 10 MG PO BID, (Reported) Bisacodyl 10 Mg Supp.rect, 10 MG RC DAILY PRN for CONSTIPATION-4TH LINE, (Reported) Cephalexin 500 Mg Tablet, 500 MG PO QID Prescribed by: EUSEBIO WARD on 07/22/20 1144 Cholecalciferol (Vitamin D3) 125 Mcg Tablet, 125 MCG PO HS, (Reported) Cinnamon Bark 500 Mg Capsule, 1,000 MG PO DAILY, (Reported) TAKES 2 (500 MG) CAPSULES Cranberry Extract 500 Mg Tablet, 1,000 MG PO DAILY, (Reported) Dapagliflozin Propanediol 10 Mg Tablet, 10 MG PO DAILY, (Reported) Diltiazem HCl 180 Mg Tab.er.24h, 180 MG PO DAILY, (Reported) Docusate Sodium 100 Mg Capsule, 100 MG PO BID, (Reported) HOLD FOR LOOSE STOOLS Dronedarone HCl 400 Mg Tablet, 400 MG PO BID, (Reported) Dulaglutide 1.5 Mg/0.5 Ml Pen.injctr, 1.5 MG SQ THUR, (Reported) Famotidine 20 Mg Tablet, 20 MG PO DAILY, (Reported) Ferrous Sulfate 325 Mg Tablet, 325 MG PO DAILY, (Reported) Fluticasone Propionate 16 Gm [place].susp, 2 SPRAYS NS DAILY, (Reported) Fluticasone/Vilanterol 1 Each Blst.w.dev, 1 EACH IH DAILY, (Reported) Furosemide 40 Mg Tablet, 40 MG PO DAILY, (Reported) Furosemide 20 Mg Tablet, 20 MG PO 1700, (Reported) Gabapentin 300 Mg Capsule, 300 MG PO BID, (Reported) Gluc Angulo/Chondro Angulo A/Vit C/Mn 1 Each Tablet, 2 TAB PO DAILY, (Reported) Guaifenesin/Dextromethorphan 118 Ml Liquid, 10 ML PO Q4H PRN for COUGH, (Reported) Hydroxyzine HCl 10 Mg Tablet, 10 MG PO BID, (Reported) Hydroxyzine Pamoate 25 Mg Capsule, 25 MG PO HS, (Reported) Insulin Aspart 100 Unit/1 Ml Susp, 30 UNIT SQ TID, (Reported) Insulin Detemir 100 Unit/1 Ml Insuln.pen, 35 UNIT SQ HS, (Reported) Insulin Detemir 100 Unit/1 Ml Insuln.pen, 40 UNIT SQ DAILY, (Reported) Ipratropium/Albuterol Sulfate 3 Ml Ampul.neb, 3 ML IH Q6H PRN for SHORTNESS OF BREATH Prescribed by: HUGO DUDLEY on 04/30/20 1214 Lidocaine 1 Each Adh..patch, 1 PATCH TD DAILY, (Reported) 4% APPLY TO UPPER RIGHT THIGH Magnesium Hydroxide/Al Hydrox 30 Ml Oral.susp, 30 ML PO DAILY PRN for CONSTIPATION-7TH LINE, (Reported) Melatonin 3 Mg Tablet, 3 MG PO HS, (Reported) Metoprolol Succinate 100 Mg Tab.er.24h, 100 MG PO DAILY, (Reported) HOLD FOR SYSTOLIC BP <100 AND HEART RATE <60 Miconazole Nitrate 10 Gm Powder, TOP BID, (Reported) APPLY TO GROIN AND UNDER BREASTS Multivits W-Fe,Other Min/Lut 1 Each Tablet, 1 TAB PO TID, (Reported) [place]-3/Dha/Epa/Fish Oil 1 Each Capsule, 2 CAP PO DAILY, (Reported) Oxycodone Hcl 5 Mg Tablet, 5 MG PO Q4H PRN for PAIN-SEVERE (8-10) Prescribed by: ALEJANDRA RUSH on 04/26/20 111 Pantoprazole Sodium 40 Mg Tablet.dr, 40 MG PO 1400 Prescribed by: ALEJANDRA RUSH on 04/26/20 1118 Phenyleph/Mineral Oil/Petrolat 57 Gm Oint.appl, RC Q12H PRN for HEMORRHOIDS, (Reported) Potassium Chloride 10 Meq Tablet.er, 10 MEQ PO DAILY@0700 Prescribed by: ALEJANDRA RUSH on 04/26/20 111 Sertraline HCl 50 Mg Tablet, 50 MG PO HS, (Reported) Sodium Chloride 30 Ml [place], 2 SPRAY NS Q4H PRN for DRY NOSE, (Reported) Sucralfate 1 Gm Tablet, 1 GM PO QID Prescribed by: ALEJANDRA RUSH on 04/26/20 111 Valerian Root 500 Mg Capsule, 530 MG PO DAILY PRN for ANXIETY, (Reported) [Blood Sugar 360] , 1 CAP PO UD PRN for BLOOD SUGAR MAINTENANCE, (Reported) [digize oil] , TOP UD PRN for DIGESTIVE DIFFICULTIES, (Reported) MAY BE USED TOPICALLY OR DABBED INSIDE MOUTH ON CHEEK, KEEP AT BEDSIDE AND SELF ADMINISTER FOR DIGESTIVE DIFFICULTIES. Patient Home Medication List Home Medication List Reviewed: Yes Review of Systems Review of Systems Constitutional: see HPI, fever, weakness EENTM: see HPI Respiratory: see HPI Cardiovascular: No chest pain; edema Gastrointestinal: No abdominal pain; nausea; No vomiting Genitourinary: No dysuria, No frequency : No Musculoskeletal: joint pain, muscle pain Skin: change in color, lesions Psychiatric/Neurological: See HPI; Denies Headache All Other Systems Reviewed Negative Unless Noted: Yes Past Otviwkv-Wvvuir-Gxpqim Hx Past Med/Social Hx: Reviewed Nursing Past Med/Soc Hx Patient Social History Alcohol Use: Denies Use Recreational Drug Use: No Smoking Status: Former Smoker Type Used: Cigarettes Former Smoker, Quit: Sep 13, 1999 2nd Hand Smoke Exposure: No Recent Foreign Travel: No Contact w/Someone Who Travel: No Recent Infectious Disease Expo: No Recent Hopitalizations: Yes Immunizations Up To Date Tetanus Booster (TDap): Unknown PED Vaccines UTD: No Seasonal Allergies Seasonal Allergies: No Past Medical History Surgeries: Yes Joint Replacement, Nose, Orthopedic Respiratory: Yes (03/2017-REPSIRATORY ARREST DUE TO ASPIRATION WITH ASPIRATION PNEUMONIA, O2) COPD Currently Using CPAP: No Currently Using BIPAP: No Cardiac: Yes (HF) Atrial Fibrillation, Chronic Edema/Swelling, Coronary Artery Disease, High Cholesterol, Hypertension Neurological: Yes (STOKE LEFT SIDE WEAKNESS) Neuropathy, Stroke 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 Genitourinary: Yes (CHRONIC KIDNEY DISEASE STAGE 3) UTI-Chronic Gastrointestinal: No Gastroesophageal Reflux, Chronic Constipation, Hemorrhoids, Ulcer Musculoskeletal: Yes (SPASMS IN L ARM FROM STROKE) Arthritis Endocrine: Yes Diabetes, Insulin dep HEENT: No Dysphagia Loss of Vision: Denies Hearing Impairment: Denies Cancer: No Psychosocial: Yes Sleep Difficulties, Anxiety, Depression Integumentary: No Blood Disorders: No Family Medical History Reviewed Nursing Family Hx Completed stroke 19 FATHER G8 BROTHER Diabetes mellitus G8 BROTHER Hypertension 19 FATHER 19 MOTHER CVA, Diabetes Physical Exam-Suspected Sepsis Physical Exam Vital Signs Vital Signs - First Documented 09/08/20 14:00 Temp 37.2 Pulse 107 Resp 16 B/P (MAP) 165/93 (117) Pulse Ox 96 O2 Delivery Room Air Capillary Refill : Less Than 3 Seconds Blood Pressure Mean: 117 Height, Weight, BMI Height: 5'6.00" Weight: 118lbs. 0.5oz. 53.533962iy; 49.00 BMI Method:Estimated General Appearance: No Apparent Distress, WD/WN HEENT: PERRL/EOMI, Pharynx Normal Neck: Non Tender, Supple Respiratory: Lungs Clear, Normal Breath Sounds Cardiovascular: No Murmur, Tachycardia Gastrointestinal: Non Tender, Soft Back: Normal Inspection, No CVA Tenderness, No Vertebral Tenderness Extremity: Normal Range of Motion, Pedal Edema (Bilateral left greater than right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: Alert, Oriented x3 Skin: warm/dry, other (Venous stasis changes bilateral lower extremities) Focused Exam Lactate Level 09/08/20 14:10: Lactic Acid Level 2.03*H 09/08/20 16:54: Lactic Acid Level Laboratory Tests Test 09/08/20 14:10 09/08/20 16:54 Lactic Acid Level 2.03 MMOL/L (0.50-2.00) *H Procedures/Interventions Date of ETT Placement: May 04, 2019 Time of ETT Placement: 611 Suture Size: 4-0 Progress/Results/Core Measures Suspected Sepsis Recent Fever Within 48 Hours: No Infection Criteria Present: None New/Unexplained Altered Menta: No Sepsis Screen: No Definite Risk SIRS Temperature: Pulse: 107 Respiratory Rate: 16 Laboratory Tests 09/08/20 14:10: White Blood Count 19.3H Blood Pressure 165 /93 Mean: 117 09/08/20 14:10: Lactic Acid Level 2.03*H 09/08/20 16:54: Laboratory Tests 09/08/20 14:10: Creatinine 1.55H, Platelet Count 197, Total Bilirubin 0.3 Results/Orders Lab Results Laboratory Tests Test 09/08/20 14:10 09/08/20 15:40 09/08/20 16:54 Range/Units White Blood Count 19.3 H 4.3-11.0 10^3/uL Red Blood Count 4.96 3.80-5.11 10^6/uL Hemoglobin 13.0 11.5-16.0 g/dL Hematocrit 42 35-52 % Mean Corpuscular Volume 84 80-99 fL Mean Corpuscular Hemoglobin 26 25-34 pg Mean Corpuscular Hemoglobin Concent 31 L 32-36 g/dL Red Cell Distribution Width 16.2 H 10.0-14.5 % Platelet Count 197 130-400 10^3/uL Mean Platelet Volume 10.3 9.0-12.2 fL Immature Granulocyte % (Auto) 1 % Neutrophils (%) (Auto) 87 H 42-75 % Lymphocytes (%) (Auto) 6 L 12-44 % Monocytes (%) (Auto) 6 0-12 % Eosinophils (%) (Auto) 1 0-10 % Basophils (%) (Auto) 0 0-10 % Neutrophils # (Auto) 16.8 H 1.8-7.8 10^3/uL Lymphocytes # (Auto) 1.1 1.0-4.0 10^3/uL Monocytes # (Auto) 1.1 H 0.0-1.0 10^3/uL Eosinophils # (Auto) 0.2 0.0-0.3 10^3/uL Basophils # (Auto) 0.1 0.0-0.1 10^3/uL Immature Granulocyte # (Auto) 0.1 0.0-0.1 10^3/uL Neutrophils % (Manual) 78 % Lymphocytes % (Manual) 11 % Monocytes % (Manual) 5 % Eosinophils % (Manual) 2 % Basophils % (Manual) 1 % Band Neutrophils 3 % Blood Morphology Comment NORMAL D-Dimer 1.79 H 0.00-0.49 UG/ML Sodium Level 133 L 135-145 MMOL/L Potassium Level 4.1 3.6-5.0 MMOL/L Chloride Level 101 98-107 MMOL/L Carbon Dioxide Level 20 L 21-32 MMOL/L Anion Gap 12 5-14 MMOL/L Blood Urea Nitrogen 30 H 7-18 MG/DL Creatinine 1.55 H 0.60-1.30 MG/DL Estimat Glomerular Filtration Rate 33 BUN/Creatinine Ratio 19 Glucose Level 163 H 70-105 MG/DL Lactic Acid Level 2.03 *H 0.50-2.00 MMOL/L Calcium Level 9.1 8.5-10.1 MG/DL Corrected Calcium 9.2 8.5-10.1 MG/DL Total Bilirubin 0.3 0.1-1.0 MG/DL Aspartate Amino Transf (AST/SGOT) 26 5-34 U/L Alanine Aminotransferase (ALT/SGPT) 30 0-55 U/L Alkaline Phosphatase 118 40-136 U/L C-Reactive Protein High Sensitivity 2.20 H 0.00-0.50 MG/DL B-Type Natriuretic Peptide 84.1 <100.0 PG/ML Total Protein 8.1 6.4-8.2 GM/DL Albumin 3.9 3.2-4.5 GM/DL Procalcitonin 0.12 H <0.10 NG/ML Coronavirus 2019 ([place]) Negative Negative Urine Color YELLOW Urine Clarity SL CLOUDY Urine pH 5.5 5-9 Urine Specific [place] 1.015 L 1.016-1.022 Urine Protein 1+ H NEGATIVE Urine Glucose (UA) 3+ H NEGATIVE Urine Ketones NEGATIVE NEGATIVE Urine Nitrite NEGATIVE NEGATIVE Urine Bilirubin NEGATIVE NEGATIVE Urine Urobilinogen 0.2 < = 1.0 MG/DL Urine Leukocyte Esterase 2+ H NEGATIVE Urine RBC (Auto) TRACE-I NEGATIVE Urine RBC 2-5 H /HPF Urine WBC 25-50 H /HPF Urine Crystals NONE /LPF Urine Bacteria MODERATE H /HPF Urine Casts NONE /LPF Urine Mucus NEGATIVE /LPF Urine Yeast LARGE H /HPF Urine Culture Indicated YES My Orders Orders - JORY PLASENCIA MD Ceftriaxone For Iv Use (Rocephin For I (09/08/20 16:14) Fluconazole 200 Mg/100 Ml (Diflucan Iv) (09/08/20 16:14) Fluconazole Tablet (Ed Only) (Diflucan T (09/08/20 16:44) Enoxaparin Injection (Lovenox Injection) (09/08/20 17:00) Medications Given in ED Current Medications Medications Dose Ordered Sig/Helen Route Start Time Stop Time Status Last Admin Dose Admin Fluconazole 150 mg ONCE ONCE PO 09/08/20 17:00 09/08/20 17:01 DC 09/08/20 16:56 150 MG Vital Signs/I&O 09/08/20 14:00 Temp 37.2 Pulse 107 Resp 16 B/P (MAP) 165/93 (117) Pulse Ox 96 O2 Delivery Room Air Capillary Refill : Less Than 3 Seconds Blood Pressure Mean: 117 Progress Note : Progress Note Seen and evaluated. IV, labs, chest x-ray and Covid testing ordered. Sepsis work-up. Monitor patient. 1705: I did discuss the patient with the patient's care team from her insurance. Patient does have elevated lactic acid as well as elevated white count and elevated D-dimer in the setting of a urinary tract infection and swollen left leg. DVT cannot be ruled out currently and she has chronic renal insufficiency making management a little more challenging. She does require antibiotics. Patient would benefit best from hospitalization for antibiotic selection and further imaging of the leg to rule out DVT versus cellulitis. Rapid Covid test negative with confirmatory testing pending. I did discuss the case with Dr. Rush and she accepts patient for admission and requests inpatient status as she meets criteria. Patient agrees with the plan. Rocephin 1 g IV, Diflucan 150 mg p.o. and Lovenox 120 mg subcu ordered. Patient agrees with plan. Departure Communication (Admissions) Time/Spoke to Admitting Phy: 16:55 Impression Primary Impression: Urinary tract infection Qualified Codes: N30.00 - Acute cystitis without hematuria Additional Impressions: Swelling of left lower extremity Elevated d-dimer Person under investigation for COVID-19 Yeast vaginitis Disposition: ADMITTED INPATIENT Condition: Stable Admissions Decision to Admit Reason: Admit from ER (General) Decision to Admit/Date: Sep 08, 2020 Time/Decision to Admit Time: 16:55 Departure-Patient Inst. Referrals: HERMINIA YAO MD (PCP/Family) Primary Care Physician JORY PLASENCIA MD Sep 08, 2020 15:14
--- NOTE | 2020-09-08 15:16 | Diagnostic Imaging Report ---
EXAMINATION: Chest radiograph, portable AP view. DATE: 09/08/2020 3:05 PM INDICATION: 69-year-old female, shortness of breath. COMPARISON: July 19, 2020. FINDINGS: Stable overall appearance of the cardiomediastinal silhouette. There is no identified pneumothorax. There is no large pleural effusion. There are multifocal bilateral interstitial and/or alveolar opacities which appear similar to the comparison study. There are technical limitations of the exam relating to patient body habitus and difficulties with exposure. IMPRESSION: Multifocal bilateral interstitial and/or alveolar opacities appear similar to comparison exam. Considerations would include pulmonary edema or atypical infection. Dictated by: Dictated on workstation # [id number]
[2020-09-08 15:55] LABS: BILIRUBIN,URINE NEGATIVE (NEGATIVE); CLARITY,URINE SL CLOUDY; COLOR,URINE YELLOW; GLUCOSE, URINE (UA) 3+ (NEGATIVE); KETONES,URINE NEGATIVE (NEGATIVE); LEUKOCYTE ESTERASE ,URINE 2+ (NEGATIVE); NITRITE,URINE NEGATIVE (NEGATIVE); PH,URINE 5.5 (5-9); PROTEIN,URINE 1+ (NEGATIVE)
[2020-09-08 16:07] LABS: BACTERIA,URINE MODERATE /HPF; WBC,URINE 25-50 /HPF; YEAST,URINE LARGE /HPF
[2020-09-08] MEDS ORDERED: FLUCONAZOLE 200 MG/100 ML 100 ML IV STA (16:14)
[2020-09-08] MEDS ORDERED: cefTRIAXone FOR IV USE 1,000 MG in WATER (STERILE) FOR INJECTION 10 ML IV STA (16:14)
--- NOTE | 2020-09-08 16:35 | NUR ---
NURSING ME CALLED FOR TRANSPORT ET REPORT GIVEN TO THE NURSE.
[2020-09-08] MEDS ORDERED: FLUCONAZOLE 150 MG TABLET (ED ONLY) ONE (16:44)
[2020-09-08] MEDS ORDERED: FLUCONAZOLE 150 MG TABLET (ED ONLY) PO ONE (17:00)
[2020-09-08] MEDS ORDERED: ENOXAPARIN 60 MG/0.6 ML (LOVENOX) SYR SC ONE (17:00)
--- NOTE | 2020-09-08 17:20 | NUR ---
daughter and [facility] udated on admission.
[2020-09-08] MEDS ORDERED: ALPRAZolam 0.25 MG (XANAX) TAB PO PRN (17:30)
[2020-09-08] MEDS ORDERED: HYDROcodone/APAP 5 MG/325 MG (LORTAB) TAB PO PRN (17:30)
[2020-09-08] MEDS ORDERED: morphine INJ 10 MG/ML 1ML (SYR OR VIAL) IVP PRN (17:30)
[2020-09-08] MEDS ORDERED: MELATONIN 3 MG TABLET PO PRN (17:30)
[2020-09-08] MEDS ORDERED: CALCIUM CARBONATE 500 MG (TUMS) TAB.CHEW PO PRN (17:30)
[2020-09-08] MEDS ORDERED: DOCUSATE SODIUM 100 MG (COLACE) CAP PO PRN (17:30)
[2020-09-08] MEDS ORDERED: diphenhydrAMINE 25 MG TAB (BENADRYL) PO PRN (17:30)
[2020-09-08] MEDS ORDERED: BISACODYL 10 MG SUPP (DULCOLAX) PR PRN (17:30)
[2020-09-08] MEDS ORDERED: ACETAMINOPHEN 500 MG TAB (TYLENOL) PO PRN (17:30)
[2020-09-08] MEDS ORDERED: ONDANSETRON 4 MG/2 ML (SDV) Z0FRAN IVP PRN (17:30)
[2020-09-08] MEDS ORDERED: LOPERAMIDE 2 MG (IMODIUM) TABLET PO PRN (17:30)
--- NOTE | 2020-09-08 17:30 | NUR ---
MIRIAM RODRIGUES admitted to room 419-1, with an admitting diagnosis of UTI,LOWER EXTREMENTY EDEMA, on 09/08/20 from ED via W/C, accompanied by STAFF. MIRIAM RODRIGUES introduced to surroundings, call light, bed controls, phone, TV, temperature control, lights, meal times, smoking policy, visitor policy, side rail policy, bathrooms and showers. Patient Rights given to patient in the handbook. MIRIAM RODRIGUES verbalizes understanding that [facility] is not responsible for the loss or damage to any personal effects or valuables that are kept in the patients posession during their hospitalization. The following Patient Care Plans were discussed with the PATIENT: Discharge Planning, UTI AND KNOWLEDGE. MIRIAM RODRIGUES verbalizes understanding of Interdisciplinary Patient Education. Patient and/or family were informed about the Rapid Response Team and its purpose.
[2020-09-08 17:48] VITALS: BP 131/78
[2020-09-08] MEDS ORDERED: NS IV 1000 ML 1,000 ML ONE (18:57)
[2020-09-08] MEDS: NS IV 1000 ML 1,000 ML IV SCH (19:55)
[2020-09-08 20:27] VITALS: BP 137/81
[2020-09-08] MEDS ORDERED: polyethylene glycoL POWDER 17 GM (MIRALAX) PACK ONE (21:11)
[2020-09-08] MEDS ORDERED: SENNOSIDES 8.6 MG (SENOKOT) TAB ONE (21:11)
[2020-09-08] MEDS: SENNA W/DOCUSATE (SENOKOT S) TABLET PO SCH (21:18)
[2020-09-08] MEDS: polyethylene glycoL POWDER 17 GM (MIRALAX) PACK PO SCH (21:18)
[2020-09-08 22:10] VITALS: BP 137/81
[2020-09-08] MEDS ORDERED: RT-ALBUTEROL INHALER HFA (VENTOLIN HFA) 18 GM IH PRN (22:30)
[2020-09-09] VITALS: BP 146/69
[2020-09-09 03:51] VITALS: BP 148/65
--- NOTE | 2020-09-09 06:16 | History & Physical-Hospitalist ---
History of Present Illness HPI/Chief Complaint CC: UTI with left lower extremity edema high risk for DVT HPI: This is a 69[facility] pt [facility] Dr[facility] Hanson well known to me from prior hospital stays who presents to the ER with not feeling well found to have a UTI and a left lower extremity edema. Ultrasound will be performed. She also had an elevated D-dimer given one dose of Lovenox. Will obtain an ultrasound, restart home medications and continue UTI treatments with Rocephin and creatinine remains stable at 1.72. Source: patient Exam Limitations: no limitations Date Seen 09/09/20 Time Seen by a Provider: 09:00 Attending Physician Fadumo Tran David F MD Referring Physician Date of Admission Sep 08, 2020 at 17:04 Home Medications & Allergies Home Medications Reviewed patient Home Medication Reconciliation performed by pharmacy medication reconciliations digital camera technician and/or nursing. Patients Allergies have been reviewed. Allergies Allergies Coded Allergies sulfamethoxazole (Verified Allergy, Unknown, 10/13/17) trimethoprim (Verified Allergy, Unknown, 10/13/17) Past Ebvpmxp-Mztjyh-Dwyjuq Hx Past Med/Social Hx: Reviewed Nursing Past Med/Soc Hx, Reviewed and Corrections made Patient Social History Marrital Status: single Employed/Student: retired Alcohol Use: Denies Use Recreational Drug Use: No Smoking Status: Former Smoker Former Smoker, Quit: Sep 13, 1999 Type Used: Cigarettes 2nd Hand Smoke Exposure: No Recent Foreign Travel: No Contact w/other who traveled: No Recent Hopitalizations: Yes Recent Infectious Disease Expo: No Immunizations Up To Date Tetanus Booster (TDap): Unknown Pediatric: No Seasonal Allergies Seasonal Allergies: No Past Medical History Surgeries: Joint Replacement, Nose, Orthopedic Respiratory: COPD Currently Using CPAP: No Currently Using BIPAP: No Cardiac: Atrial Fibrillation, Chronic Edema/Swelling, Coronary Artery Disease, High Cholesterol, Hypertension Neurological: Neuropathy, Stroke 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: No Menopausal Genitourinary: UTI-Chronic Gastrointestinal: Gastroesophageal Reflux, Chronic Constipation, Hemorrhoids, Ulcer Musculoskeletal: Arthritis Endocrine: Diabetes, Insulin dep HEENT: Dysphagia Loss of Vision: Denies Hearing Impairment: Denies Psychosocial: Sleep Difficulties, Anxiety, Depression History of Blood Disorders: No Family History Reviewed Nursing Family Hx Completed stroke 19 FATHER G8 BROTHER Diabetes mellitus G8 BROTHER Hypertension 19 FATHER 19 MOTHER CVA, Diabetes Review of Systems Constitutional: see HPI, fever, malaise, weakness Physical Exam Physical Exam Vital Signs Vital Signs - First Documented 09/08/20 09/08/20 14:00 22:10 Temp 37.2 Pulse 107 Resp 16 B/P (MAP) 165/93 (117) Pulse Ox 96 O2 Delivery Room Air FiO2 21 Capillary Refill : Less Than 3 Seconds Height, Weight, BMI Height: 5'6.00" Weight: 118lbs. 0.5oz. 53.237329ll; 48.59 BMI Method:Estimated General Appearance: No Apparent Distress, WD/WN, Chronically ill, Obese Eyes: Right Eye Normal Inspection, Right Eye PERRL HEENT: PERRL/EOMI, Normal ENT Inspection, Pharynx Normal, Moist Mucous Membranes Neck: Full Range of Motion, Normal Inspection, Non Tender Respiratory: Chest Non Tender, Lungs Clear, Normal Breath Sounds, No Accessory Muscle Use, No Respiratory Distress Cardiovascular: No Gallop, No JVD, No Murmur, Normal Peripheral Pulses, Irregularly Irregular Gastrointestinal: Normal Bowel Sounds, No Organomegaly, No Pulsatile Mass, Non Tender, Soft Back: Normal Inspection, No CVA Tenderness, No Vertebral Tenderness Extremity: Normal Capillary Refill, Normal Inspection, Normal Range of Motion (except legs chronic limitations), Non Tender, No Calf Tenderness, Pedal Edema Neurologic/Psychiatric: Alert, Oriented x3, No Motor/Sensory Deficits, Normal Mood/Affect Skin: Normal Color, Warm/Dry Lymphatic: No Adenopathy Results Results/Procedures Labs Laboratory Tests 09/08/20 14:10 09/09/20 06:25 Patient resulted labs reviewed. Assessment/Plan Admission Diagnosis Assessment: UTI Sepsis Left lower extremity edema Elevated d-dimer Obesity DM CAD HTN AF HLP ANKIT CRI Plan: IV abx IVF Home meds Admission Status: Inpatient Order (span 2 midnights) Reason for Inpatient Admission: sepsis Clinical Quality Measures DVT/VTE Risk/Contraindication: Risk Factor Score Per Nursin RFS Level Per Nursing on Admit: 4+=Very High Contraindications-Mechi: Other *list below* Other: leg swelling ultrasound tomorrow FADUMO TRAN DO Sep 09, 2020 06:16
[2020-09-09 06:49] LABS: BASOPHILS % (AUTO) 0 % (0-10); EOSINOPHILS # (AUTO) 0.2 10^3/uL (0.0-0.3); EOSINOPHILS % (AUTO) 2 % (0-10); HEMATOCRIT 37 % (35-52); HEMOGLOBIN 11.8 g/dL (11.5-16.0); LYMPHOCYTES # (AUTO) 1.1 10^3/uL (1.0-4.0); LYMPHOCYTES % (AUTO) 11 % (12-44); MEAN CORPUSCULAR HEMOGLOBIN 27 pg (25-34); MEAN CORPUSCULAR HGB CONC 32 g/dL (32-36); MEAN CORPUSCULAR VOLUME 84 fL (80-99); MEAN PLATELET VOLUME 10.4 fL (9.0-12.2); MONOCYTES # (AUTO) 0.7 10^3/uL (0.0-1.0); MONOCYTES % (AUTO) 8 % (0-12); NEUTROPHILS # (AUTO) 7.4 10^3/uL (1.8-7.8); NEUTROPHILS % (AUTO) 78 % (42-75); PLATELET COUNT 174 10^3/uL (130-400); WHITE BLOOD COUNT 9.4 10^3/uL (4.3-11.0)
[2020-09-09 06:58] LABS: ALBUMIN 3.4 GM/DL (3.2-4.5); BILIRUBIN,TOTAL 0.4 MG/DL (0.1-1.0); CALCIUM 8.8 MG/DL (8.5-10.1); CREATININE SERUM 1.72 MG/DL (0.60-1.30); TOTAL PROTEIN 7.3 GM/DL (6.4-8.2)
[2020-09-09 08:00] VITALS: BP 142/62
--- NOTE | 2020-09-09 10:35 | Diagnostic Imaging Report ---
PROCEDURE: US left lower extremity venous. TECHNIQUE: Multiple Real-time grayscale images were obtained over the left lower extremity in various projections. Additional duplex Doppler and color Doppler images were also obtained. INDICATION: Pain and swelling. FINDINGS: The left common femoral and femoral veins demonstrate normal response to compression, augmentation, and Valsalva. The distal femoral vein, popliteal vein, and calf veins are not well seen due to edema. There are no abnormal fluid collections or masses. IMPRESSION: Technically limited exam as the distal veins could not be evaluated. The visualized veins, however, show no evidence of deep venous thrombosis. Dictated by: Dictated on workstation # [id number]
[2020-09-09] MEDS ORDERED: SUCR1TAB36 PO (10:51)
[2020-09-09] MEDS ORDERED: POTA10CA43 PO (10:51)
[2020-09-09] MEDS ORDERED: [UNRECOGNIZED DRUG - CODE] PO (10:51)
[2020-09-09] MEDS ORDERED: DILT240C90 PO (10:51)
[2020-09-09] MEDS: cefTRIAXone 1,000 MG/SWFI 10 ML IV PUSH IV SCH ×2 (10:54)
[2020-09-09] MEDS: polyethylene glycoL POWDER 17 GM (MIRALAX) PACK PO SCH ×2 (10:54→20:22)
[2020-09-09] MEDS: SENNA W/DOCUSATE (SENOKOT S) TABLET PO SCH ×2 (10:55→20:21)
[2020-09-09] MEDS: ENOXAPARIN 40 MG/0.4 ML (LOVENOX) SYR SC SCH ×2 (10:55→20:21)
[2020-09-09] MEDS ORDERED: IPRA3AMP31 IH (11:10)
--- NOTE | 2020-09-09 11:11 | NUR ---
THE MED REC WAS ENTERED USING THE MAR AND MED REVIEW REPORT FROM [facility] THERE WERE MULTIPLE MEDICATIONS THAT WERE LISTED ON MEDICATION REVIEW THAT ARE NOT ON THE MAR. I CALLED [facility] AND VERIFIED THAT THE PT IS ON THE FOLLOWING MEDICATIONS THAT DO NOT SHOW ON THE MAR: MICONAZOLE POWDER DIGIZE OIL BISACODYL SUPP ROBITUSSIN DM HEMORRHOIDAL SUPP DUONEB FERROUS SULFATE LEVEMIR NOVOLOG TYLENOL 500MG PRN VALERIAN MAGNESIUM HYDROXIDE SALINE NASAL SPRAY OMEGA 3 OXYCODONE TRULICITY
[2020-09-09] MEDS ORDERED: OXYC5TAB PO (11:19)
[2020-09-09] MEDS ORDERED: SODI30SP2 NS (11:19)
[2020-09-09] MEDS: inSUlin ASPART (NovoLOG) 1 UNIT/0.01 ML (CHARGE PER UNIT) SC SCH ×3 (11:51→20:22)
[2020-09-09 11:56] VITALS: BP 135/62
--- NOTE | 2020-09-09 14:55 | NUR ---
"RD ASSESSMENT PMHx: COPD; afib; CAD; hypercholesterolemia; HTN; stroke; chronic UTI; GERD; chronic constipation; DM; dysphagia; PT INTERACTION: Note pt currently in COVID isolation, per chart review. Note all diet information for nutrition assessment is per Yaritza RN, or per chart review. Yaritza states current appetite appears alright. Note PO intake 67% x3meal, per chart review. Note PMH of dysphagia, per chart review. Yaritza states no issues with nausea, vomiting, or diarrhea that she is aware of. Yaritza states pt may have some issues with constipation. Note last BM was 09/09, and pt currently on bowel regimen of senna BID, and miralax BID, per chart review. Note recent 22# wt loss x1mon, per chart review. Note unable to determine current level of DM management, and unable to determine recent HbA1c, per chart review. ABNORMAL NUTRITION-RELATED LAB VALUES LOW: HIGH: BUN 28; cr 1.72; glu 192; Est. kcal needs: 0617-1305 kcal | 15-18 kcal/kg Est. Pro needs: 99-124 g Pro | 0.8-1.0 g Pro/kg PES STATEMENT: Inadequate oral intake (NI-2.1) related to loss of appetite as evidenced by chart review, communication with RN, and avg PO intake 67% x3meal. INTERVENTION: Continue with current diet order of CHO 60g/m 3snack diet. Pt may benefit from nutrition supplementation if PO intake declines. Did not offer diet education on DM management d/t isolation precautions. Will continue to follow and reassess as pt needs, intake, and status change. S AMANDA CAM MS RD LD [phone] cell"
[2020-09-09 16:00] VITALS: BP 170/77
[2020-09-09] MEDS: RT-ALBUTEROL INHALER HFA (VENTOLIN HFA) 18 GM IH SCH (18:28)
[2020-09-09] MEDS: NS IV 1000 ML 1,000 ML IV SCH (19:46)
[2020-09-09 20:00] VITALS: BP 176/84
[2020-09-10] VITALS: BP 152/75
[2020-09-10] MEDS ORDERED: ACETAMINOPHEN 500 MG TAB (TYLENOL) PO PRN ×2 (04:45)
[2020-09-10] MEDS ORDERED: RT-ALBUTEROL SULF 2.5 MG/3 ML PRE-MIX VIAL IH PRN (04:45)
[2020-09-10] MEDS ORDERED: BISACODYL 10 MG SUPP (DULCOLAX) RC PRN (04:45)
[2020-09-10] MEDS ORDERED: SALINE NASAL SPRAY (OCEAN) 45 ML BTL NS PRN ×2 (04:45)
[2020-09-10] MEDS ORDERED: NON-FORMULARY MEDICATION 1 EA EA (Dulaglutide (Trulicity) 1.5 MG) SQ SCH (04:45)
[2020-09-10] MEDS ORDERED: RT-ALBUTEROL/IPRATROPIUM 3 ML (DUONEB) VIAL IH PRN (04:45)
[2020-09-10] MEDS ORDERED: PREPARATION H OINTMENT 57 GR TUBE RC PRN (04:45)
--- NOTE | 2020-09-10 05:51 | Progress Note - Hospitalist ---
Subjective HPI/CC On Admission Date Seen by Provider: Sep 10, 2020 CC: UTI with left lower extremity edema high risk for DVT HPI: [facility] 69[facility] pt [facility] Dr[facility] Hanson well known to me from prior hospital stays who presents to the ER with not feeling well found to have a UTI and a left lower extremity edema. Ultrasound will be performed. She also had an elevated D-dimer given one dose of Lovenox. Will obtain an ultrasound, restart home medications and continue UTI treatments with Rocephin and creatinine remains stable at 1.72. Focused Exam Lactate Level 09/08/20 14:10: Lactic Acid Level 2.03*H 09/08/20 16:54: Lactic Acid Level 1.99 Objective Exam Vital Signs Vital Signs Date Time Temp Pulse Resp B/P (MAP) Pulse Ox O2 Delivery O2 Flow Rate FiO2 09/10/20 12:55 36.3 104 22 178/75 97 Room Air 09/08/20 22:10 21 Capillary Refill : Less Than 3 SecondsLess Than 3 Seconds Results/Procedures Lab Laboratory Tests 09/10/20 06:00 Patient resulted labs reviewed. Clinical Quality Measures DVT/VTE Risk/Contraindication: Risk Factor Score Per Nursin RFS Level Per Nursing on Admit: 4+=Very High Contraindications-Mechi: Other *list below* Other: leg swelling ultrasound tomorrow ALEJANDRA RUSH DO Sep 10, 2020 05:51
[2020-09-10 06:13] LABS: BASOPHILS % (AUTO) 1 % (0-10); EOSINOPHILS # (AUTO) 0.2 10^3/uL (0.0-0.3); EOSINOPHILS % (AUTO) 3 % (0-10); HEMATOCRIT 40 % (35-52); HEMOGLOBIN 12.3 g/dL (11.5-16.0); LYMPHOCYTES # (AUTO) 1.2 10^3/uL (1.0-4.0); LYMPHOCYTES % (AUTO) 19 % (12-44); MEAN CORPUSCULAR HEMOGLOBIN 26 pg (25-34); MEAN CORPUSCULAR HGB CONC 31 g/dL (32-36); MEAN CORPUSCULAR VOLUME 84 fL (80-99); MEAN PLATELET VOLUME 10.1 fL (9.0-12.2); MONOCYTES # (AUTO) 0.7 10^3/uL (0.0-1.0); MONOCYTES % (AUTO) 11 % (0-12); NEUTROPHILS # (AUTO) 4.3 10^3/uL (1.8-7.8); NEUTROPHILS % (AUTO) 66 % (42-75); PLATELET COUNT 179 10^3/uL (130-400); WHITE BLOOD COUNT 6.5 10^3/uL (4.3-11.0)
[2020-09-10] MEDS ORDERED: MILK OF MAGNESIA 400 MG/5 ML 30 ML UDC PO PRN (06:15)
[2020-09-10 06:39] LABS: ALBUMIN 3.5 GM/DL (3.2-4.5); BILIRUBIN,TOTAL 0.3 MG/DL (0.1-1.0); CALCIUM 8.9 MG/DL (8.5-10.1); CREATININE SERUM 1.33 MG/DL (0.60-1.30); MAGNESIUM 2.3 MG/DL (1.6-2.4); TOTAL PROTEIN 7.5 GM/DL (6.4-8.2)
[2020-09-10] MEDS: hydrOXYzine (ATARAX) 10 MG TAB PO SCH ×2 (06:46→11:48)
[2020-09-10] MEDS: inSUlin ASPART (NovoLOG) 1 UNIT/0.01 ML (CHARGE PER UNIT) SC SCH ×2 (06:46→11:03)
[2020-09-10 07:59] VITALS: BP 166/78
[2020-09-10] MEDS ORDERED: inSUlin ASPART (NovoLOG) 1 UNIT/0.01 ML (CHARGE PER UNIT) SQ SCH (08:00)
[2020-09-10] MEDS ORDERED: DRONEDARONE TABLET 400 MG TABLET PO SCH (09:00)
[2020-09-10] MEDS ORDERED: DOCUSATE SODIUM 100 MG (COLACE) CAP PO SCH (09:00)
[2020-09-10] MEDS ORDERED: FERROUS SULF 325 MG (IRON) TAB PO SCH (09:00)
[2020-09-10] MEDS ORDERED: amLODIPine 5 MG (NORVASC) TAB PO SCH (09:00)
[2020-09-10] MEDS ORDERED: NON-FORMULARY MEDICATION 1 EA EA (Dapagliflozin Propanediol (Farxiga) 10 MG) PO SCH (09:00)
[2020-09-10] MEDS ORDERED: FLUTICASONE NASAL SPRAY (FLONASE) 16 GM BTL NS SCH (09:00)
[2020-09-10] MEDS ORDERED: FAMOTIDINE 20 MG (PEPCID) TABLET PO SCH (09:00)
[2020-09-10] MEDS ORDERED: GABAPENTIN 300 MG (NEURONTIN) CAP PO SCH (09:00)
[2020-09-10] MEDS ORDERED: NON-FORMULARY MEDICATION 1 EA EA (Cranberry Extract (Cranberry) 1,000 MG) PO SCH (09:00)
[2020-09-10] MEDS ORDERED: ASPIRIN E.C. 81 MG (ECOTRIN) TAB PO SCH (09:00)
[2020-09-10] MEDS ORDERED: KCL 10 MEQ TAB (MICRO K) PO SCH (09:00)
[2020-09-10] MEDS ORDERED: BETHANECHOL 10 MG (URECHOLINE) TAB PO SCH (09:00)
[2020-09-10] MEDS ORDERED: meTOprolol SUCCINATE 100 MG (TOPROL XL) TAB PO SCH (09:00)
[2020-09-10] MEDS: cefTRIAXone 1,000 MG/SWFI 10 ML IV PUSH IV SCH ×2 (09:21)
[2020-09-10] MEDS: SENNA W/DOCUSATE (SENOKOT S) TABLET PO SCH (09:21)
[2020-09-10] MEDS: ENOXAPARIN 40 MG/0.4 ML (LOVENOX) SYR SC SCH (09:22)
[2020-09-10] MEDS: polyethylene glycoL POWDER 17 GM (MIRALAX) PACK PO SCH (09:22)
[2020-09-10] MEDS: RT-ALBUTEROL INHALER HFA (VENTOLIN HFA) 18 GM IH SCH (09:35)
[2020-09-10] MEDS ORDERED: ADVAIR HFA 115/21 MCG INHALER 8 GM IH SCH (09:37)
[2020-09-10] MEDS ORDERED: guaiFENesin/DM (ROBITUSSIN DM) 10 ML UDC PO PRN (09:45)
[2020-09-10] MEDS ORDERED: FLUC100T PO (10:45)
[2020-09-10] MEDS ORDERED: FLUCONAZOLE 200 MG/100 ML 50 ML, SYRINGE-IVPB 1 SYRINGE IV NR ×2 (10:45)
--- NOTE | 2020-09-10 10:46 | Discharge Summary ---
Discharge Summary Hospital Course Was the Problem List Reviewed?: Yes Problems/Dx: (1) Sepsis Status: Acute (2) Urinary tract infection Status: Acute Qualifiers: Qualified Codes: N30.00 - Acute cystitis without hematuria (3) Swelling of left lower extremity Status: Acute (4) Elevated d-dimer Status: Acute Hospital Course Date of Admission: Sep 08, 2020 at 17:04 Admission Diagnosis : Family Physician/Provider: Roberto Ramírez MD Date of Discharge: 09/10/20 Discharge Diagnosis: sepsis, abnormal UA, yeast UTI Hospital Course: Hospital Course: Pt had a brief hospital course. She was admitted for UTI and left lower extremity edema. Ultrasound revealed no evidence of DVT. She cannot tolerate anticoagulation, we gave her one dose of therapeutic Lovenox. Overall pt felt good enough to to go home and she was deemed stable. Urine culture annita wed staph aureus MSSA only less than 10,000 and yeast so I placed her on a few days of Diflucan after 100mg IV dose before DC. Creatinine was stable at 1.33 Labs and Pending Lab Test: Laboratory Tests 09/09/20 10:58: Glucometer 249H 09/09/20 15:29: Glucometer 166H 09/09/20 19:59: Glucometer 222H 09/10/20 06:00: White Blood Count 6.5, Red Blood Count 4.75, Hemoglobin 12.3, Hematocrit 40, Mean Corpuscular Volume 84, Mean Corpuscular Hemoglobin 26, Mean Corpuscular Hemoglobin Concent 31L, Red Cell Distribution Width 16.3H, Platelet Count 179, M angelita Platelet Volume 10.1, Immature Granulocyte % (Auto) 1, Neutrophils (%) (Auto) 66, Lymphocytes (%) (Auto) 19, Monocytes (%) (Auto) 11, Eosinophils (%) (Auto) 3, Basophils (%) (Auto) 1, Neutrophils # (Auto) 4.3, Lymphocytes # (Auto) 1.2, Monocytes # (Auto) 0.7, Eosinophils # (Auto) 0.2, Basophils # (Auto) 0.0, Immature Granulocyte # (Auto) 0.0, Sodium Level 137, Potassium Level 4.0, Chloride Level 108H, Carbon Dioxide Level 20L, Anion Gap 9, Blood Urea Nitrogen 20H, Creatinine 1.33H, Estimat Glomerular Filtration Rate 39, BUN/Creatinine Ratio 15, Glucose Level 186H, Calcium Level 8.9, Corrected Calcium 9.3, Magnesium Level 2.3, Total Bilirubin 0.3, Aspartate Amino Transf (AST/SGOT) 19, Alanine Aminotransferase (ALT/SGPT) 21, Alkaline Phosphatase 107, Total Protein 7.5, Albumin 3.5 09/10/20 10:45: Glucometer [Pending] Microbiology 09/08/20 Urine Culture - Preliminary, Resulted YEAST Staphylococcus aureus 09/08/20 Blood Culture - Preliminary, Resulted No growth Home Meds Active Diflucan (Fluconazole) 100 Mg Tablet 100 Mg PO DAILY 3 Days Reported Saline Nasal Boykin (Sodium Chloride) 30 Ml Boykin 2 Boykin NS Q4H PRN Oxycodone HCl 5 Mg Tablet 5 Mg PO Q4H PRN Iprat-Albut 0.5-3(2.5) mg/3 ml (Ipratropium/Albuterol Sulfate) 3 Ml Ampul.neb 3 Ml IH Q6H PRN Essential Balance Tablet (Multivits W-Fe,Other Min/Lut) 1 Each Tablet 1 Each PO TID Potassium Chloride 10 Meq Capsule.er 10 Meq PO DAILY Diltiazem 24Hr Cd (Diltiazem HCl) 240 Mg Cap.er.24h 240 Mg PO DAILY HOLD IF PULSE IS LESS THAN 60 Mag-Al Liquid (Magnesium Hydroxide/Al Hydrox) 30 Ml Oral.susp 30 Ml PO DAILY PRN Neurontin (Gabapentin) 300 Mg Capsule 300 Mg PO BID Aspirin EC (Aspirin) 81 Mg Tablet.dr 81 Mg PO BID Hydroxyzine Pamoate 25 Mg Capsule 25 Mg PO HS Tylenol Extra Strength (Acetaminophen) 500 Mg Tablet 500 Mg PO HS PRN Super B Complex-Vitamin C (B Complex with Vitamin C) 1 Each Tablet 1 Each PO DAILY Sertraline HCl 50 Mg Tablet 50 Mg PO HS Pepcid (Famotidine) 20 Mg Tablet 20 Mg PO DAILY Saline Nasal Boykin (Sodium Chloride) 30 Ml Boykin 2 Boykin NS Q4H PRN Novolog (Insulin Aspart) 100 Unit/1 Ml Susp 30 Unit SQ TID Hydroxyzine HCl 10 Mg Tablet 10 Mg PO 0700,1200 Furosemide 20 Mg Tablet 20 Mg PO 1700 Farxiga (Dapagliflozin Propanediol) 10 Mg Tablet 10 Mg PO DAILY Breo Ellipta 100-25 Mcg INH (Fluticasone/Vilanterol) 1 Each Blst.w.dev 1 Each IH DAILY Guaiasorb Dm Liquid (Guaifenesin/Dextromethorphan) 118 Ml Liquid 10 Ml PO Q4H PRN Vitamin D3 (Cholecalciferol (Vitamin D3)) 125 Mcg Tablet 125 Mcg PO HS Lidocare (Lidocaine) 1 Each Adh..patch 1 Patch TD DAILY 4% APPLY TO UPPER RIGHT THIGH Levemir Flextouch (Insulin Detemir) 100 Unit/1 Ml Insuln.pen 40 Unit SQ DAILY Multaq (Dronedarone HCl) 400 Mg Tablet 400 Mg PO BID Amlodipine Besylate 5 Mg Tablet 5 Mg PO DAILY HOLD IF SBP<110 Furosemide 40 Mg Tablet 40 Mg PO DAILY Atorvastatin Calcium 40 Mg Tablet 40 Mg PO HS Gs Hemorrhoidal Ointment (Phenyleph/Mineral Oil/Petrolat) 57 Gm Oint.appl RC Q12H PRN Albuterol Sulfate 2.5 Mg/3 Ml Vial.neb 2.5 Mg NEB Q4H PRN Miconazole Nitrate 10 Gm Powder TOP BID APPLY TO GROIN AND UNDER BREASTS Tipton 3 500 Softgel (Tipton-3/Dha/Epa/Fish Oil) 1 Each Capsule 2 Cap PO DAILY Urecholine (Bethanechol Chloride) 10 Mg Tablet 10 Mg PO BID Trulicity (Dulaglutide) 1.5 Mg/0.5 Ml Pen.injctr 1.5 Mg SQ THUR Colace (Docusate Sodium) 100 Mg Capsule 100 Mg PO BID HOLD FOR LOOSE STOOLS Iron (Ferrous Sulfate) 325 Mg Tablet 325 Mg PO DAILY Fluticasone Propionate 16 Gm Boykin.susp 2 Sprays NS DAILY Glucosamine Chondroitin Tab (Gluc Angulo/Chondro Angulo A/Vit C/Mn) 1 Each Tablet 2 Tab PO DAILY Melatonin 3 Mg Tablet 3 Mg PO HS Cranberry (Cranberry Extract) 500 Mg Tablet 1,000 Mg PO DAILY [Blood Sugar 360] 1 Cap PO UD PRN Valerian Root 500 Mg Capsule 530 Mg PO DAILY PRN Bisacodyl 10 Mg Supp.rect 10 Mg RC DAILY PRN Acetaminophen 500 Mg Tablet 1,000 Mg PO Q6H PRN [digize oil] TOP UD PRN MAY BE USED TOPICALLY OR DABBED INSIDE MOUTH ON CHEEK, KEEP AT BEDSIDE AND SELF ADMINISTER FOR DIGESTIVE DIFFICULTIES. Cinnamon (Cinnamon Bark) 500 Mg Capsule 1,000 Mg PO DAILY TAKES 2 (500 MG) CAPSULES Levemir Flextouch (Insulin Detemir) 100 Unit/1 Ml Insuln.pen 35 Unit SQ HS Metoprolol Succinate 100 Mg Tab.er.24h 100 Mg PO DAILY HOLD FOR SYSTOLIC BP <100 AND HEART RATE <60 Assessment/Pt Instructions PCP 1 week Discharge Planning: <30 minutes discharge planning Discharge Instructions Discharge Diet: No Restrictions Pneumonia Vaccine Order Indica: Yes Discharge Physical Examination Vital Signs Vital Signs Date Time Temp Pulse Resp B/P (MAP) Pulse Ox O2 Delivery O2 Flow Rate FiO2 09/10/20 09:35 92 09/10/20 07:59 35.8 94 19 166/78 (107) Room Air 09/08/20 22:10 21 General Appearance: No Apparent Distress, WD/WN, Chronically ill Respiratory: Lungs Clear Cardiovascular: Regular Rate, Rhythm Neurologic/Psychiatric: Alert, Oriented x3, No Motor/Sensory Deficits, Normal Mood/Affect Allergies: Coded Allergies: sulfamethoxazole (Verified Allergy, Unknown, 10/13/17) trimethoprim (Verified Allergy, Unknown, 10/13/17) Discharge Summary Date of Admission Sep 08, 2020 at 17:04 Date of Discharge Discharge Date: Sep 10, 2020 Admission Diagnosis Assessment: UTI Sepsis Left lower extremity edema Elevated d-dimer Obesity DM CAD HTN AF HLP ANKIT CRI Plan: IV abx IVF Home meds Clinical Quality Measures DVT/VTE Risk/Contraindication: Risk Factor Score Per Nursin RFS Level Per Nursing on Admit: 4+=Very High Contraindications-Mechi: Other *list below* Other: leg swelling ultrasound tomorrow ALEJANDRA RUSH DO Sep 10, 2020 10:46
[2020-09-10] MEDS: NS IV 1000 ML 1,000 ML IV SCH (11:49)
[2020-09-10 12:03] VITALS: BP 178/75
--- NOTE | 2020-09-10 12:45 | NUR ---
ATTEMPTED TO CALL REPORT TO [facility]. THE NURSE WILL CALL ME BACK TO GET REPORT. SHE IS ON THE OTHER LINE.
[2020-09-10 12:55] VITALS: BP 178/75
--- NOTE | 2020-09-10 12:55 | NUR ---
ALEM CORTES, NURSE AT [facility] CALLED [facility]. REPORT GIVEN.
--- NOTE | 2020-09-10 14:28 | NUR ---
CM/SS finalized discharge. Plan: Patient discharged back to [facility] today 09/10. group home supervisor time for 12:30 p.m. [facility]: CM/SS contacted agency to set up meat pickler time. CM/SS faxed finalized discharge orders and clinical. CM/SS visited with patient. She is feeling well today. CM/SS asked if the patient wanted this to call and give update to her daughter. She declined and stated she will call when she gets back over there. No further needs.
[2020-09-10] MEDS ORDERED: SERTRALINE 50 MG (ZOLOFT) TABLET PO SCH (21:00)
[2020-09-10] MEDS ORDERED: LIDOCAINE PATCH REMOVAL TP SCH (21:00)
[2020-09-10] MEDS ORDERED: MELATONIN 3 MG TABLET PO SCH (21:00)
[2020-09-10] MEDS ORDERED: VITAMIN D3 125 MCG (5,000 UNITS) CAPSULE PO SCH (21:00)
[2020-09-10] MEDS ORDERED: hydrOXYzine (VISTARIL/ATARAX) 25 MG capsule/tablet PO SCH (21:00)
[2020-09-11] MEDS ORDERED: LIDOCAINE 4% (SALONPAS) PATCH TOP SCH (09:00)
== END 2020-09-10 12:55 | DRG 872 ==
LOC: EDUNIT# 13:52 → ER 13:55 → 4TH 17:04
PROVIDERS: ADMIT Internal Medicine; ATTEND Internal Medicine
DX: A41.9 Sepsis, unspecified organism (principal); B37.49 Other urogenital candidiasis; B37.3 Candidiasis of vulva and vagina; I12.9 Hypertensive chronic kidney disease with stage 1 through stage 4 chronic kidney disease, or unspecified chronic kidney disease; N18.30 Chronic kidney disease, stage 3 unspecified; E11.22 Type 2 diabetes mellitus with diabetic chronic kidney disease; J44.9 Chronic obstructive pulmonary disease, unspecified; I48.91 Unspecified atrial fibrillation; Z20.828 Contact with and (suspected) exposure to other viral communicable diseases; R79.1 Abnormal coagulation profile; M79.89 Other specified soft tissue disorders; I25.10 Atherosclerotic heart disease of native coronary artery without angina pectoris; E78.00 Pure hypercholesterolemia, unspecified; G47.33 Obstructive sleep apnea (adult) (pediatric); Z79.4 Long term (current) use of insulin; E11.40 Type 2 diabetes mellitus with diabetic neuropathy, unspecified; K21.9 Gastro-esophageal reflux disease without esophagitis; M19.91 Primary osteoarthritis, unspecified site; I69.398 Other sequelae of cerebral infarction; R25.2 Cramp and spasm; R13.10 Dysphagia, unspecified; F41.9 Anxiety disorder, unspecified; F32.9 Major depressive disorder, single episode, unspecified; I87.8 Other specified disorders of veins; Z79.82 Long term (current) use of aspirin; Z79.899 Other long term (current) drug therapy; Z88.2 Allergy status to sulfonamides; Z91.09 Other allergy status, other than to drugs and biological substances; Z82.49 Family history of ischemic heart disease and other diseases of the circulatory system; Z82.3 Family history of stroke; Z83.3 Family history of diabetes mellitus; Z87.891 Personal history of nicotine dependence
CPT/HCPCS: 36415; 51701; 71045; 80053; 81000; 82962; 83605; 83735; 83880; 84145; 85007; 85025; 85027; 85379; 86141; 87040; 87088; 87635; 94640; 94664; 94760

== ENCOUNTER → 2021-01-05 | Outpatient (CLI) | payer MEDICARE, MEDICAID ==
[~2021-01-05] MED LIST changes: +DILT240C90 PO; -DRON400T2 PO; +DRON400T6 PO; +FLUC100T PO; +OXYC5TAB PO; +POTA10CA43 PO; +SERT-413 PO; -SERT50TA9 PO
[2021-01-05 19:31] LABS: BILIRUBIN,URINE NEGATIVE (NEGATIVE); CLARITY,URINE CLEAR; COLOR,URINE YELLOW; GLUCOSE, URINE (UA) 2+ (NEGATIVE); KETONES,URINE NEGATIVE (NEGATIVE); LEUKOCYTE ESTERASE ,URINE 3+ (NEGATIVE); NITRITE,URINE NEGATIVE (NEGATIVE); PH,URINE 5.5 (5-9); PROTEIN,URINE TRACE (NEGATIVE)
[2021-01-05 19:41] LABS: BACTERIA,URINE LARGE /HPF; SQUAMOUS EPITHELIAL CELL,UR 0-2 /HPF; WBC,URINE >100 /HPF
== END ==
LOC: LABNPT 19:17
PROVIDERS: ATTEND Internal Medicine
DX: N39.0 Urinary tract infection, site not specified (principal)
CPT/HCPCS: 81000; 87077; 87088

== ENCOUNTER → 2021-01-09 | Outpatient (CLI) | payer MEDICARE, MEDICAID ==
--- NOTE | 2021-01-09 09:44 | Diagnostic Imaging Report ---
PROCEDURE: CT urinary tract, rule out kidney stone. TECHNIQUE: Multiple contiguous axial images were obtained through the abdomen and pelvis without the use of intravenous contrast. Auto Exposure Controls were utilized during the CT exam to meet ALARA standards for radiation dose reduction. INDICATION: Hematuria with left-sided abdominal pain. FINDINGS: Detail is somewhat limited due to beam hardening from body habitus. The kidneys show no evidence of calculi. Ureters are not dilated. No hydronephrosis. Bladder appears normal. There are multiple phleboliths noted in the pelvis. The renal outlines are smooth. There is mild thickening at Gerota's fascia bilaterally. No perinephric fluid. The gallbladder does show multiple gallstones measuring approximately 1 cm. The gallbladder is not dilated. Bile ducts are not dilated. The liver appears normal. Pancreas is normal. Spleen is normal. There is a 12 mm rounded renal mass on the right with mean Hounsfield unit of 19. The aorta is densely calcified as are the abdominal vessels. No evidence of aneurysm. No intra-abdominal adenopathy of pathologic size. The stomach and small bowel appear normal. Colon shows normal stool and gas pattern throughout to the rectum. The appendix is not specifically identified. No blastic or lytic changes. Advanced degenerative changes of the SI joints. There is noted diastases recti of the lower abdomen without evidence of true ventral hernia. IMPRESSION: 1. Kidneys, ureters and bladder appear normal. 2. Cholelithiasis without evidence of acute cholecystitis. 3. A 12 mm adrenal mass on the right, likely representing adenoma. 4. Dense atherosclerotic disease of the aorta and abdominal vessels. Dictated by: Dictated on workstation # [id number]
== END ==
LOC: RAD 08:45
PROVIDERS: ATTEND Nurse Practitioner Community Health
DX: K80.20 Calculus of gallbladder without cholecystitis without obstruction (principal); E27.9 Disorder of adrenal gland, unspecified; I70.0 Atherosclerosis of aorta; R31.9 Hematuria, unspecified
CPT/HCPCS: 74176

== ENCOUNTER → 2021-02-02 | Outpatient (CLI) | payer MEDICARE, MEDICAID ==
[~2021-02-02] MED LIST changes: -CRAN500T2 PO; +CRAN500T3 PO; +FLUT9.9S NS; +HYDR-3817 PO; +MULT-166 PO
[2021-02-02 19:25] LABS: BILIRUBIN,URINE NEGATIVE (NEGATIVE); CLARITY,URINE CLEAR; COLOR,URINE YELLOW; GLUCOSE, URINE (UA) NEGATIVE (NEGATIVE); KETONES,URINE NEGATIVE (NEGATIVE); LEUKOCYTE ESTERASE ,URINE 3+ (NEGATIVE); NITRITE,URINE POSITIVE (NEGATIVE); PROTEIN,URINE TRACE (NEGATIVE)
[2021-02-02 19:40] LABS: BACTERIA,URINE LARGE /HPF; WBC,URINE TNTC /HPF
[2021-02-02 19:41] LABS: URINE OTHER 1 /HPF
== END ==
LOC: CVS 19:15
PROVIDERS: ATTEND Internal Medicine
DX: N39.0 Urinary tract infection, site not specified (principal)
CPT/HCPCS: 81000; 87077; 87088

== ENCOUNTER 2021-02-03 11:51 | Inpatient (IN) | payer MEDICARE, MEDICAID ==
[~2021-02-03] VITALS: Ht 165 cm; Wt 134.7 kg
[~2021-02-03 11:51] MED LIST changes: -FLUT9.9S NS; -HYDR-3817 PO; -MULT-166 PO
[2021-02-03] MEDS ORDERED: NS IV 1000 ML 1,000 ML ONE (12:01)
[2021-02-03] MEDS ORDERED: NS IV 1000 ML 1,000 ML IV STA (12:09)
[2021-02-03 12:15] LABS: BASOPHILS # (AUTO) 0.1 10^3/uL (0.0-0.1); BASOPHILS % (AUTO) 0 % (0-10); EOSINOPHILS # (AUTO) 0.2 10^3/uL (0.0-0.3); EOSINOPHILS % (AUTO) 1 % (0-10); HEMATOCRIT 43 % (35-52); HEMOGLOBIN 13.2 g/dL (11.5-16.0); LYMPHOCYTES # (AUTO) 1.3 10^3/uL (1.0-4.0); LYMPHOCYTES % (AUTO) 9 % (12-44); MEAN CORPUSCULAR HEMOGLOBIN 28 pg (25-34); MEAN CORPUSCULAR HGB CONC 31 g/dL (32-36); MEAN CORPUSCULAR VOLUME 89 fL (80-99); MEAN PLATELET VOLUME 9.3 fL (9.0-12.2); MONOCYTES # (AUTO) 0.8 10^3/uL (0.0-1.0); MONOCYTES % (AUTO) 6 % (0-12); NEUTROPHILS # (AUTO) 12.3 10^3/uL (1.8-7.8); NEUTROPHILS % (AUTO) 84 % (42-75); PLATELET COUNT 221 10^3/uL (130-400); WHITE BLOOD COUNT 14.7 10^3/uL (4.3-11.0)
[2021-02-03] MEDS ORDERED: ONDANSETRON 4 MG/2 ML (SDV) Z0FRAN IV PRN ×2 (12:15→16:15)
[2021-02-03] MEDS ORDERED: ACETAMINOPHEN 500 MG TAB (TYLENOL) PO PRN (12:15)
[2021-02-03 12:26] LABS: ALBUMIN 3.8 GM/DL (3.2-4.5); POTASSIUM 4.7 MMOL/L (3.6-5.0)
[2021-02-03 12:27] LABS: CALCIUM 9.4 MG/DL (8.5-10.1)
[2021-02-03 12:29] LABS: TOTAL PROTEIN 8.1 GM/DL (6.4-8.2)
[2021-02-03 12:30] LABS: BILIRUBIN,TOTAL 0.4 MG/DL (0.1-1.0)
[2021-02-03 12:32] LABS: CREATININE SERUM 1.64 MG/DL (0.60-1.30)
--- NOTE | 2021-02-03 12:37 | ED General ---
General Chief Complaint: Abdominal/GI Problems Stated Complaint: N/V, CHILLS, FEVER Nursing Triage Note: ARRIVED VIA WC TO ROOM 07. VOMITING X15 MINS WITH A LOW GRADE TEMP. REDNESS TO RIGHT HIP. Nursing Sepsis Screen: Possible Severe Sepsis Risk Source of Information: Patient Exam Limitations: No Limitations History of Present Illness Date Seen by Provider: February 03, 2021 Time Seen by Provider: 12:00 Initial Comments To ER by private vehicle from medical [place] as with report of nausea vomiting chills and fever. She has some redness of the right lateral thigh. This began this morning. She is full CODE STATUS. Timing/Duration: 1-3 Hours Severity: Severe Associated Systoms: Nausea/Vomiting Allergies and Home Medications Allergies Coded Allergies: sulfamethoxazole (Verified Allergy, Unknown, 10/13/17) trimethoprim (Verified Allergy, Unknown, 10/13/17) Home Medications Acetaminophen 500 Mg Tablet, 1,000 MG PO Q6H PRN for PAIN-MILD OR TEMPATURE, (Reported) Acetaminophen 500 Mg Tablet, 500 MG PO HS PRN for PAIN-MODERATE (5-7), (Reported) Albuterol Sulfate 2.5 Mg/3 Ml Vial.neb, 2.5 MG NEB Q4H PRN for SHORTNESS OF BREATH, (Reported) Amlodipine Besylate 5 Mg Tablet, 5 MG PO DAILY, (Reported) HOLD IF SBP<110 Aspirin 81 Mg Tablet.dr, 81 MG PO BID, (Reported) Atorvastatin Calcium 40 Mg Tablet, 40 MG PO HS, (Reported) B Complex with Vitamin C 1 Each Tablet, 1 EACH PO DAILY, (Reported) Bethanechol Chloride 10 Mg Tablet, 10 MG PO BID, (Reported) Bisacodyl 10 Mg Supp.rect, 10 MG RC DAILY PRN for CONSTIPATION-4TH LINE, (Reported) Cholecalciferol (Vitamin D3) 125 Mcg Tablet, 125 MCG PO HS, (Reported) Cinnamon Bark 500 Mg Capsule, 1,000 MG PO DAILY, (Reported) TAKES 2 (500 MG) CAPSULES Cranberry Extract 500 Mg Tablet, 1,000 MG PO DAILY, (Reported) Dapagliflozin Propanediol 10 Mg Tablet, 10 MG PO DAILY, (Reported) Diltiazem HCl 240 Mg Cap.er.24h, 240 MG PO DAILY, (Reported) HOLD IF PULSE IS LESS THAN 60 Docusate Sodium 100 Mg Capsule, 100 MG PO BID, (Reported) HOLD FOR LOOSE STOOLS Dronedarone HCl 400 Mg Tablet, 400 MG PO BID, (Reported) Dulaglutide 1.5 Mg/0.5 Ml Pen.injctr, 1.5 MG SQ THUR, (Reported) Famotidine 20 Mg Tablet, 20 MG PO DAILY, (Reported) Ferrous Sulfate 325 Mg Tablet, 325 MG PO DAILY, (Reported) Fluconazole 100 Mg Tablet, 100 MG PO DAILY Prescribed by: ALEJANDRA RUSH on 09/10/20 1045 Fluticasone Propionate 16 Gm [place].susp, 2 SPRAYS NS DAILY, (Reported) Fluticasone/Vilanterol 1 Each Blst.w.dev, 1 EACH IH DAILY, (Reported) Furosemide 40 Mg Tablet, 40 MG PO DAILY, (Reported) Furosemide 20 Mg Tablet, 20 MG PO 1700, (Reported) Gabapentin 300 Mg Capsule, 300 MG PO BID, (Reported) Gluc Angulo/Chondro Angulo A/Vit C/Mn 1 Each Tablet, 2 TAB PO DAILY, (Reported) Guaifenesin/Dextromethorphan 118 Ml Liquid, 10 ML PO Q4H PRN for COUGH, (Reported) Hydroxyzine HCl 10 Mg Tablet, 10 MG PO 0700,1200, (Reported) Hydroxyzine Pamoate 25 Mg Capsule, 25 MG PO HS, (Reported) Insulin Aspart 100 Unit/1 Ml Susp, 30 UNIT SQ TID, (Reported) Insulin Detemir 100 Unit/1 Ml Insuln.pen, 35 UNIT SQ HS, (Reported) Insulin Detemir 100 Unit/1 Ml Insuln.pen, 40 UNIT SQ DAILY, (Reported) Ipratropium/Albuterol Sulfate 3 Ml Ampul.neb, 3 ML IH Q6H PRN for SHORTNESS OF BREATH, (Reported) Lidocaine 1 Each Adh..patch, 1 PATCH TD DAILY, (Reported) 4% APPLY TO UPPER RIGHT THIGH Magnesium Hydroxide/Al Hydrox 30 Ml Oral.susp, 30 ML PO DAILY PRN for CONSTIPATION-7TH LINE, (Reported) Melatonin 3 Mg Tablet, 3 MG PO HS, (Reported) Metoprolol Succinate 100 Mg Tab.er.24h, 100 MG PO DAILY, (Reported) HOLD FOR SYSTOLIC BP <100 AND HEART RATE <60 Miconazole Nitrate 10 Gm Powder, TOP BID, (Reported) APPLY TO GROIN AND UNDER BREASTS Multivits W-Fe,Other Min/Lut 1 Each Tablet, 1 EACH PO TID, (Reported) [place]-3/Dha/Epa/Fish Oil 1 Each Capsule, 2 CAP PO DAILY, (Reported) Oxycodone HCl 5 Mg Tablet, 5 MG PO Q4H PRN for PAIN-SEVERE (8-10), (Reported) Phenyleph/Mineral Oil/Petrolat 57 Gm Oint.appl, RC Q12H PRN for HEMORRHOIDS, (Reported) Potassium Chloride 10 Meq Capsule.er, 10 MEQ PO DAILY, (Reported) Sertraline HCl 50 Mg Tablet, 50 MG PO HS, (Reported) Sodium Chloride 30 Ml [place], 2 SPRAY NS Q4H PRN for DRY NOSE, (Reported) Sodium Chloride 30 Ml [place], 2 SPRAY NS Q4H PRN for DRY NOSE, (Reported) Valerian Root 500 Mg Capsule, 530 MG PO DAILY PRN for ANXIETY, (Reported) [Blood Sugar 360] , 1 CAP PO UD PRN for BLOOD SUGAR MAINTENANCE, (Reported) [digize oil] , TOP UD PRN for DIGESTIVE DIFFICULTIES, (Reported) MAY BE USED TOPICALLY OR DABBED INSIDE MOUTH ON CHEEK, KEEP AT BEDSIDE AND SELF ADMINISTER FOR DIGESTIVE DIFFICULTIES. Patient Home Medication List Home Medication List Reviewed: Yes Review of Systems Review of Systems Constitutional: see HPI, fever EENTM: see HPI Respiratory: no symptoms reported Cardiovascular: no symptoms reported Genitourinary: no symptoms reported Musculoskeletal: no symptoms reported Skin: see HPI Psychiatric/Neurological: No Symptoms Reported Past Qmnxauj-[id number]-Ycfiwb Hx Patient Social History Type Used: Cigarettes Former Smoker, Quit: Sep 13, 1999 2nd Hand Smoke Exposure: No Recent Infectious Disease Expo: No Recent Hopitalizations: Yes Immunizations Up To Date Tetanus Booster (TDap): Unknown PED Vaccines UTD: No Seasonal Allergies Seasonal Allergies: No Past Medical History Surgeries: Yes Joint Replacement, Nose, Orthopedic Respiratory: Yes (03/2017-REPSIRATORY ARREST DUE TO ASPIRATION WITH ASPIRATION PNEUMONIA, O2) COPD Currently Using CPAP: No Currently Using BIPAP: No Cardiac: Yes (HF) Atrial Fibrillation, Chronic Edema/Swelling, Coronary Artery Disease, High Ch olesterol, Hypertension Neurological: Yes (STOKE LEFT SIDE WEAKNESS) Neuropathy, Stroke 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 Disorders: No 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 Genitourinary: Yes (CHRONIC KIDNEY DISEASE STAGE 3) UTI-Chronic Gastrointestinal: No Gastroesophageal Reflux, Chronic Constipation, Hemorrhoids, Ulcer Musculoskeletal: Yes (SPASMS IN L ARM FROM STROKE) Arthritis Endocrine: Yes Diabetes, Insulin dep HEENT: No Dysphagia Loss of Vision: Denies Hearing Impairment: Denies Cancer: No Psychosocial: Yes Sleep Difficulties, Anxiety, Depression Integumentary: No Blood Disorders: No Family Medical History Completed stroke 19 FATHER G8 BROTHER Diabetes mellitus G8 BROTHER Hypertension 19 FATHER 19 MOTHER CVA, Diabetes Physical Exam Vital Signs Vital Signs - First Documented 02/03/21 02/03/21 11:55 12:08 Temp 38.2 Pulse 96 Resp 24 B/P (MAP) 67/43 (51) Pulse Ox 87 O2 Delivery Room Air O2 Flow Rate 2.00 Capillary Refill : Less Than 3 Seconds Height, Weight, BMI Height: 5'6.00" Weight: 118lbs. 0.5oz. 53.221127dt; 44.00 BMI Method:Estimated General Appearance: Moderate Distress, Obese, Other (Grunting type breathing with accessory muscle use, at least partially obesity hypoventilation related but tachypneic. Initial blood pressure on the right arm was 54 systolic, initial blood pressure on the left arm was 60 systolic. We were able to establish only a 22-gauge in the right shoulder as she has poor IV access. Went ahead and initiated BiPAP at 15/8 50% FiO2 and placed a right internal jugular central venous catheter ultrasound-guided.) Eyes: Bilateral Eye Normal Inspection, Bilateral Eye PERRL, Bilateral Eye EOMI Neck: Full Range of Motion, Normal Inspection Respiratory: Lungs Clear, Accessory Muscle Use, Respiratory Distress Cardiovascular: Normal Peripheral Pulses, Tachycardia Gastrointestinal: Normal Bowel Sounds, Non Tender, Soft Extremity: Normal Capillary Refill, Normal Inspection, Other (Erythema right lateral thigh without crepitus or fluctuance.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: Alert, Oriented x3 Skin: Normal Color, Warm/Dry Focused Exam Lactate Level 02/03/21 12:32: Lactic Acid Level 1.96 Lactic Acid Level Laboratory Tests Test 02/03/21 12:32 Lactic Acid Level 1.96 MMOL/L (0.50-2.00) Procedures/Interventions Lumen: triple Position: internal jugular (R) Anesthesia: Lidocaine Volume Anesthetic (ccs): 4 Post Position: sutured, good blood return, position confirmed w/ CXR Date of ETT Placement: May 04, 2019 Time of ETT Placement: 611 Suture Size: 4-0 Progress/Results/Core Measures Suspected Sepsis Recent Fever Within 48 Hours: Yes Infection Criteria Present: Suspected New Infection New/Unexplained Altered Menta: Yes Sepsis Screen: Possible Severe Sepsis Risk SIRS Temperature: Pulse: 96 Respiratory Rate: 24 Laboratory Tests 02/03/21 12:08: White Blood Count 14.7H Blood Pressure 67 /43 Mean: 51 02/03/21 12:32: Lactic Acid Level 1.96 Laboratory Tests 02/03/21 12:08: Creatinine 1.64H, Platelet Count 221, Total Bilirubin 0.4 02/03/21 12:32: INR Comment 0.9 Results/Orders Lab Results Laboratory Tests Test 02/03/21 12:08 02/03/21 12:32 Range/Units White Blood Count 14.7 H 4.3-11.0 10^3/uL Red Blood Count 4.80 3.80-5.11 10^6/uL Hemoglobin 13.2 11.5-16.0 g/dL Hematocrit 43 35-52 % Mean Corpuscular Volume 89 80-99 fL Mean Corpuscular Hemoglobin 28 25-34 pg Mean Corpuscular Hemoglobin Concent 31 L 32-36 g/dL Red Cell Distribution Width 14.4 10.0-14.5 % Platelet Count 221 130-400 10^3/uL Mean Platelet Volume 9.3 9.0-12.2 fL Immature Granulocyte % (Auto) 1 % Neutrophils (%) (Auto) 84 H 42-75 % Lymphocytes (%) (Auto) 9 L 12-44 % Monocytes (%) (Auto) 6 0-12 % Eosinophils (%) (Auto) 1 0-10 % Basophils (%) (Auto) 0 0-10 % Neutrophils # (Auto) 12.3 H 1.8-7.8 10^3/uL Lymphocytes # (Auto) 1.3 1.0-4.0 10^3/uL Monocytes # (Auto) 0.8 0.0-1.0 10^3/uL Eosinophils # (Auto) 0.2 0.0-0.3 10^3/uL Basophils # (Auto) 0.1 0.0-0.1 10^3/uL Immature Granulocyte # (Auto) 0.1 0.0-0.1 10^3/uL Neutrophils % (Manual) 87 % Lymphocytes % (Manual) 5 % Monocytes % (Manual) 4 % Eosinophils % (Manual) 2 % Basophils % (Manual) 0 % Band Neutrophils 2 % Blood Morphology Comment NORMAL Sodium Level 138 135-145 MMOL/L Potassium Level 4.7 3.6-5.0 MMOL/L Chloride Level 103 98-107 MMOL/L Carbon Dioxide Level 23 21-32 MMOL/L Anion Gap 12 5-14 MMOL/L Blood Urea Nitrogen 24 H 7-18 MG/DL Creatinine 1.64 H 0.60-1.30 MG/DL Estimat Glomerular Filtration Rate 31 BUN/Creatinine Ratio 15 Glucose Level 139 H 70-105 MG/DL Calcium Level 9.4 8.5-10.1 MG/DL Corrected Calcium 9.6 8.5-10.1 MG/DL Total Bilirubin 0.4 0.1-1.0 MG/DL Aspartate Amino Transf (AST/SGOT) 29 5-34 U/L Alanine Aminotransferase (ALT/SGPT) 26 0-55 U/L Alkaline Phosphatase 148 H 40-136 U/L Total Protein 8.1 6.4-8.2 GM/DL Albumin 3.8 3.2-4.5 GM/DL Prothrombin Time 12.8 12.2-14.7 SEC INR Comment 0.9 0.8-1.4 Activated Partial Thromboplast Time 20 L 24-35 SEC Lactic Acid Level 1.96 0.50-2.00 MMOL/L My Orders Orders - GEOFFREY PIERRE APRN Cbc With Automated Diff (02/03/21 12:01) Comprehensive Metabolic Panel (02/03/21 12:01) Blood Culture (02/03/21 12:01) Sputum Culture (02/03/21 12:01) Urinalysis (02/03/21 12:01) Urine Culture (02/03/21 12:01) Protime With Inr (02/03/21 12:01) Partial Thromboplastin Time (02/03/21 12:01) Chest 1 View, Ap/Pa Only (02/03/21 12:01) Acetaminophen Tablet (Tylenol Tablet) (02/03/21 12:15) Ed Iv/Invasive Line Start (02/03/21 12:01) Ed Iv/Invasive Line Start (02/03/21 12:01) Vital Signs Adult Sepsis Patie Q15M (02/03/21 12:01) Ondansetron Injection (Zofran Injectio (02/03/21 12:15) O2 (02/03/21 12:01) Remove Rings In Anticipation O (02/03/21 12:01) Lactic Acid Analyzer (02/03/21 12:01) Ns Iv 1000 Ml (Sodium Chloride 0.9%) (02/03/21 12:01) Ns Iv 1000 Ml (Sodium Chloride 0.9%) (02/03/21 12:09) Manual Differential (02/03/21 12:08) Ns Iv 1000 Ml (Sodium Chloride 0.9%) (02/03/21 13:00) Piperacillin Sodium/Tazobactam (Zosyn Vi (02/03/21 13:00) Medications Given in ED Current Medications Medications Dose Ordered Sig/Helen Route Start Time Stop Time Status Last Admin Dose Admin Acetaminophen 1,000 mg ONCE PRN PO 02/03/21 12:15 02/03/21 12:15 DC 02/03/21 12:14 1,000 MG Ondansetron HCl 8 mg PRN PRN IV 02/03/21 12:15 02/03/21 12:16 DC 02/03/21 12:15 8 MG Vital Signs/I&O 02/03/21 02/03/21 02/03/21 11:55 12:08 12:54 Temp 38.2 Pulse 96 92 Resp 24 32 B/P (MAP) 67/43 (51) Pulse Ox 87 94 O2 Delivery Room Air Nasal Cannula O2 Flow Rate 2.00 50.00 Capillary Refill : Less Than 3 Seconds Blood Pressure Mean: 51 Diagnostic Imaging Diagonstic Imaging: Xray Comments NAME: MIRIAM RODRIGUES MED REC#: [id number] PT STATUS: REG ER : 1950 PHYSICIAN: GEOFFREY PIERRE APRN ADMIT DATE: 02/03/21/ER Draft Date of Exam:02/03/21 CHEST 1 VIEW, AP/PA ONLY Indication: Vomiting and low-grade fever. Time of exam: 12:41 PM Correlation is made with prior chest from 09/08/2020. Heart size is normal. The right IJ line with tip overlying SVC. Lungs are clear. No infiltrate, effusion or pneumothorax is detected. Impression: No acute cardiopulmonary process is detected. Dictated on workstation # [id number] Dict: 02/03/21 1258 Trans: 02/03/21 1304 CV [id number] Interpreted by: SALLY FUENTES MD Electronically signed by: Departure Communication (Admissions) 0757-patient is feeling better after 8 mg of Zofran, 12.5 mg of Phenergan. Her respiratory effort has improved. After reviewing ABG I took her BiPAP off. She is on just oxygen now without accessory muscle use. She is talking appropriately. Impression Primary Impression: Sepsis Additional Impressions: Cellulitis of right lower extremity Urinary tract infection Disposition: ADMITTED INPATIENT Condition: Stable Admissions Decision to Admit Reason: Admit from ER (General) Decision to Admit/Date: February 03, 2021 Time/Decision to Admit Time: 13:04 Departure-Patient Inst. Referrals: HERMINIA YAO MD (PCP/Family) Primary Care Physician Copy Copies To 1: LUIS RUSSELL MD, PETER J APRN February 03, 2021 12:37
[2021-02-03 12:40] LABS: BAND NEUTROPHILS 2 %; BASOPHILS % (MANUAL) 0 %; EOSINOPHILS % (MANUAL) 2 %; LYMPHOCYTES % (MANUAL) 5 %; MONOCYTES % (MANUAL) 4 %; NEUTROPHILS % (MANUAL) 87 %; RBC MORPH NORMAL
[2021-02-03 12:54] VITALS: BP 162/83
[2021-02-03] MEDS ORDERED: PROMETHAZINE INJ 25 MG/ML (PHENERGAN) AMP ONE (12:58)
[2021-02-03 12:59] VITALS: BP 158/74
[2021-02-03] MEDS ORDERED: PIPERACILLIN SODIUM/TAZOBACTAM 4.5 GM in NS (IVPB) 100 ML IV ONE (13:00)
[2021-02-03] MEDS ORDERED: NS IV 1000 ML 1,000 ML IV SCH (13:00)
[2021-02-03 13:06] LABS: INR 0.9 (0.8-1.4); PROTHROMBIN TIME PATIENT 12.8 SEC (12.2-14.7)
--- NOTE | 2021-02-03 13:06 | Diagnostic Imaging Report ---
Indication: Vomiting and low-grade fever. Time of exam: 12:41 PM Correlation is made with prior chest from 09/08/2020. Heart size is normal. The right IJ line with tip overlying SVC. Lungs are clear. No infiltrate, effusion or pneumothorax is detected. Impression: No acute cardiopulmonary process is detected. Dictated by: Dictated on workstation # [id number]
[2021-02-03 13:07] LABS: BILIRUBIN,URINE NEGATIVE (NEGATIVE); CLARITY,URINE CLEAR; COLOR,URINE YELLOW; GLUCOSE, URINE (UA) NEGATIVE (NEGATIVE); KETONES,URINE NEGATIVE (NEGATIVE); LEUKOCYTE ESTERASE ,URINE 2+ (NEGATIVE); NITRITE,URINE POSITIVE (NEGATIVE); PROTEIN,URINE 2+ (NEGATIVE)
[2021-02-03 13:14] LABS: BACTERIA,URINE MODERATE /HPF; RBC,URINE 0-2 /HPF; WBC,URINE >100 /HPF
[2021-02-03] MEDS ORDERED: PROMETHAZINE INJ 25 MG/ML (PHENERGAN) AMP IVP ONE (13:15)
[2021-02-03] MEDS ORDERED: fentaNYL INJ 100 MCG/2 ML AMP IVP ONE (13:15)
[2021-02-03 13:21] LABS: ABG BASE EXCESS -2.5 MMOL/L (-2.5-2.5); ABG PCO2 21 MMHG (35-45); ABG PH 7.57 (7.37-7.43); ABG PO2 135 MMHG (79-93); ABG TCO2 20.3 MMOL/L (21.0-31.0)
[2021-02-03 13:24] LABS: ABG OXYGEN SATURATION 0 % (94-100)
[2021-02-03 13:25] LABS: ALLENS TEST POS; INSPIRED O2 50%; PATIENT TEMP 36.2; VENTILATOR NO
[2021-02-03] MEDS ORDERED: WATER (STERILE) FOR INJECTION 10 ML ONE (13:36)
[2021-02-03] MEDS ORDERED: MEROPENEM 500 MG VIAL (MERREM) IV ONE (13:36)
[2021-02-03] MEDS ORDERED: MEROPENEM 500 MG in WATER (STERILE) FOR INJECTION 10 ML IV ONE (13:45)
--- NOTE | 2021-02-03 15:34 | History & Physical ---
HPI History of Present Illness: 70 yo female sent from shelter with fever and concern for cellulitis with a red patch on her thigh. She states she hasn't really had specific symptoms of illness, but she vomited after getting to the ER and has had some respiratory distress. She denies feeling short of breath or coughing prior to this and denies chest pain. She is disheartened to hear that she has a UTI and sepsis again, and would prefer not to have to stay in the hospital. Source: patient Date seen by provider: February 03, 2021 Time Seen by Provider: 13:25 Attending Physician Suzette Potter MD PCP Roberto Ramírez MD Consult Date of Admission February 03, 2021 at 12:57 Home Medications Home Medications Reviewed patient Home Medication Reconciliation performed by pharmacy medication reconciliations highway traffic control technician and/or nursing. Patients Allergies have been reviewed. 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 Family Medical History Significant Family History: CVA, Diabetes Family History: Completed stroke 19 FATHER G8 BROTHER Diabetes mellitus G8 BROTHER Hypertension 19 FATHER 19 MOTHER Review of Systems ([facility]) Constitutional: fever EENTM: No nose congestion Respiratory: No cough Cardiovascular: No chest pain Gastrointestinal: No constipation, No diarrhea; nausea, vomiting Genitourinary: no symptoms reported Musculoskeletal: no symptoms reported Skin: see HPI Reviewed Test Results Reviewed Test Results Lab Laboratory Tests Test 02/03/21 12:08 02/03/21 12:32 02/03/21 13:00 02/03/21 13:02 Range/Units White Blood Count 14.7 H 4.3-11.0 10^3/uL Red Blood Count 4.80 3.80-5.11 10^6/uL Hemoglobin 13.2 11.5-16.0 g/dL Hematocrit 43 35-52 % Mean Corpuscular Volume 89 80-99 fL Mean Corpuscular Hemoglobin 28 25-34 pg Mean Corpuscular Hemoglobin Concent 31 L 32-36 g/dL Red Cell Distribution Width 14.4 10.0-14.5 % Platelet Count 221 130-400 10^3/uL Mean Platelet Volume 9.3 9.0-12.2 fL Immature Granulocyte % (Auto) 1 % Neutrophils (%) (Auto) 84 H 42-75 % Lymphocytes (%) (Auto) 9 L 12-44 % Monocytes (%) (Auto) 6 0-12 % Eosinophils (%) (Auto) 1 0-10 % Basophils (%) (Auto) 0 0-10 % Neutrophils # (Auto) 12.3 H 1.8-7.8 10^3/uL Lymphocytes # (Auto) 1.3 1.0-4.0 10^3/uL Monocytes # (Auto) 0.8 0.0-1.0 10^3/uL Eosinophils # (Auto) 0.2 0.0-0.3 10^3/uL Basophils # (Auto) 0.1 0.0-0.1 10^3/uL Immature Granulocyte # (Auto) 0.1 0.0-0.1 10^3/uL Neutrophils % (Manual) 87 % Lymphocytes % (Manual) 5 % Monocytes % (Manual) 4 % Eosinophils % (Manual) 2 % Basophils % (Manual) 0 % Band Neutrophils 2 % Blood Morphology Comment NORMAL Sodium Level 138 135-145 MMOL/L Potassium Level 4.7 3.6-5.0 MMOL/L Chloride Level 103 98-107 MMOL/L Carbon Dioxide Level 23 21-32 MMOL/L Anion Gap 12 5-14 MMOL/L Blood Urea Nitrogen 24 H 7-18 MG/DL Creatinine 1.64 H 0.60-1.30 MG/DL Estimat Glomerular Filtration Rate 31 BUN/Creatinine Ratio 15 Glucose Level 139 H 70-105 MG/DL Calcium Level 9.4 8.5-10.1 MG/DL Corrected Calcium 9.6 8.5-10.1 MG/DL Total Bilirubin 0.4 0.1-1.0 MG/DL Aspartate Amino Transf (AST/SGOT) 29 5-34 U/L Alanine Aminotransferase (ALT/SGPT) 26 0-55 U/L Alkaline Phosphatase 148 H 40-136 U/L Total Protein 8.1 6.4-8.2 GM/DL Albumin 3.8 3.2-4.5 GM/DL Prothrombin Time 12.8 12.2-14.7 SEC INR Comment 0.9 0.8-1.4 Activated Partial Thromboplast Time 20 L 24-35 SEC Lactic Acid Level 1.96 0.50-2.00 MMOL/L Urine Color YELLOW Urine Clarity CLEAR Urine pH 6.0 5-9 Urine Specific [place] 1.025 H 1.016-1.022 Urine Protein 2+ H NEGATIVE Urine Glucose (UA) NEGATIVE NEGATIVE Urine Ketones NEGATIVE NEGATIVE Urine Nitrite POSITIVE H NEGATIVE Urine Bilirubin NEGATIVE NEGATIVE Urine Urobilinogen 0.2 < = 1.0 MG/DL Urine Leukocyte Esterase 2+ H NEGATIVE Urine RBC (Auto) 1+ H NEGATIVE Urine RBC 0-2 /HPF Urine WBC >100 H /HPF Urine Crystals NONE /LPF Urine Bacteria MODERATE H /HPF Urine Casts NONE /LPF Urine Mucus NEGATIVE /LPF Urine Culture Indicated YES Blood Gas Puncture Site RRAD Blood Gas Patient Temperature 36.2 Arterial Blood pH 7.57 H 7.37-7.43 Arterial Blood Partial Pressure CO2 21 L 35-45 MMHG Arterial Blood Partial Pressure O2 135 H 79-93 MMHG Arterial Blood HCO3 20 L 23-27 MMOL/L Arterial Blood Total CO2 20.3 L 21.0-31.0 MMOL/L Arterial Blood Oxygen Saturation 0 L 94-100 % Arterial Blood Base Excess -2.5 -2.5-2.5 MMOL/L Jai Test POS Blood Gas Ventilator Setting NO Blood Gas Inspired Oxygen 50% Test 02/03/21 15:54 02/03/21 19:52 Range/Units Glucometer 133 H 176 H 70-110 MG/DL Radiology CXR 02/03 unremarkable Physical Exam-([facility]) Physical Exam Vital Signs VS - Last 72 Hours, by Label 02/03/21 02/03/21 02/03/21 02/03/21 11:55 12:08 12:54 12:59 Temp 38.2 Pulse 96 92 85 Resp 24 32 32 B/P (MAP) 67/43 (51) Pulse Ox 87 94 97 O2 Delivery Room Air Nasal Cannula O2 Flow Rate 2.00 50.00 50.00 02/03/21 02/03/21 02/03/21 02/03/21 15:35 15:45 15:52 16:00 Pulse 78 80 80 Resp 22 B/P (MAP) 148/64 120/55 (76) Pulse Ox 96 96 94 O2 Delivery Nasal Cannula Nasal Cannula Nasal Cannula O2 Flow Rate 4.00 4.00 4.00 02/03/21 02/03/21 02/03/21 02/03/21 16:02 16:47 17:08 18:00 Temp 37.2 38.2 Pulse 96 80 B/P (MAP) 123/84 (97) 142/74 (96) Pulse Ox 87 83 97 O2 Delivery Nasal Cannula Nasal Cannula Nasal Cannula O2 Flow Rate 4.00 4.00 4.00 FiO2 21 02/03/21 02/03/21 02/03/21 02/03/21 18:22 19:00 19:30 20:00 Temp 37.8 Pulse 93 Resp 20 B/P (MAP) 153/84 (107) Pulse Ox 100 99 99 O2 Delivery Nasal Cannula Nasal Cannula Nasal Cannula O2 Flow Rate 4.00 4.00 4.00 Capillary Refill : Less Than 3 Seconds General Appearance: mild distress, obese Respiratory: lungs clear, normal breath sounds, accessory muscle use Cardiovascular: regular rate, rhythm Gastrointestinal: normal bowel sounds, non tender, soft Extremities: pedal edema Neurologic/Psychiatric: alert, normal mood/affect Skin: other (area of ill-defined mild erythema on right lateral thigh) Assessment/Plan Assessment/Plan Admission Status: Inpatient Order (span 2 midnights) Reason for Inpatient Admission: Sepsis with multiple underlying comorbidities (1) Respiratory failure Status: Acute Assessment & Plan: Required bipap briefly in ER, thought to be partially related to obesity hypoventilation and anxiety/stress with vomiting. Now stable on 4 lpm supplemental oxygen. CXR unremarkable. Qualifiers: Qualified Codes: J96.21 - Acute and chronic respiratory failure with hypoxia (2) Urinary tract infection Status: Acute Assessment & Plan: History of resistant infection, will treat with meropenem Qualifiers: Qualified Codes: N30.00 - Acute cystitis without hematuria (3) Sepsis Status: Acute Assessment & Plan: Secondary to UTI, possibly cellulitis. Qualifiers: Qualified Codes: A41.9 - Sepsis, unspecified organism (4) Cellulitis of right lower extremity Status: Acute Assessment & Plan: Possibly, although does not appear clearly infected, covered with meropenem based on previous UTI. (5) Depression Status: Chronic (6) Normocytic anemia Status: Chronic (7) Paroxysmal atrial fibrillation Status: Chronic Assessment & Plan: Resume home rate/rhythm meds, cannot tolerate full anticoagulation due to recurrent GI bleeds. (8) ANKIT (obstructive sleep apnea) Status: Chronic (9) Chronic kidney disease Status: Chronic Qualifiers: Qualified Codes: N18.32 - Chronic kidney disease, stage 3b (10) History of CVA (cerebrovascular accident) Status: Chronic (11) BMI 40.0-44.9, adult Status: Chronic (12) Bedbound Status: Chronic (13) Insulin dependent diabetes mellitus with complications Status: Chronic (14) DVT prophylaxis Status: Acute Assessment & Plan: Enoxaparin SUZETTE POTTER MD February 03, 2021 15:33
[2021-02-03] MEDS ORDERED: CATHETER FLUSH 10 ML SYR IV PRN (16:15)
[2021-02-03] MEDS: inSUlin ASPART (NovoLOG) 1 UNIT/0.01 ML (CHARGE PER UNIT) SC SCH ×2 (16:41→19:55)
[2021-02-03 16:47] VITALS: BP 67/43
[2021-02-03] MEDS: LACTATED RINGERS 1,000 ML IV SCH (16:51)
[2021-02-03] MEDS: RT-ALBUTEROL/IPRATROPIUM 3 ML (DUONEB) VIAL INH SCH ×2 (18:22→21:28)
[2021-02-03] MEDS: ACETAMINOPHEN 325 MG TABLET PO PRN (19:26)
[2021-02-03] MEDS ORDERED: RT-ALBUTEROL/IPRATROPIUM 3 ML (DUONEB) VIAL INH PRN (20:00)
[2021-02-03] MEDS: MEROPENEM 500 MG/SWFI 10 ML IV PUSH IV SCH ×2 (21:24)
[2021-02-04] MEDS: RT-ALBUTEROL/IPRATROPIUM 3 ML (DUONEB) VIAL INH SCH ×6 (02:03→22:12)
[2021-02-04 02:42] LABS: BASOPHILS % (AUTO) 0 % (0-10); EOSINOPHILS % (AUTO) 0 % (0-10); HEMATOCRIT 35 % (35-52); HEMOGLOBIN 10.8 g/dL (11.5-16.0); LYMPHOCYTES % (AUTO) 7 % (12-44); MEAN CORPUSCULAR HEMOGLOBIN 28 pg (25-34); MEAN CORPUSCULAR HGB CONC 31 g/dL (32-36); MEAN CORPUSCULAR VOLUME 89 fL (80-99); MEAN PLATELET VOLUME 9.2 fL (9.0-12.2); MONOCYTES # (AUTO) 0.9 10^3/uL (0.0-1.0); MONOCYTES % (AUTO) 7 % (0-12); NEUTROPHILS # (AUTO) 12.2 10^3/uL (1.8-7.8); NEUTROPHILS % (AUTO) 85 % (42-75); PLATELET COUNT 183 10^3/uL (130-400); WHITE BLOOD COUNT 14.4 10^3/uL (4.3-11.0)
[2021-02-04] MEDS: ACETAMINOPHEN 325 MG TABLET PO PRN (02:46)
[2021-02-04] MEDS: LACTATED RINGERS 1,000 ML IV SCH ×2 (02:46→17:34)
[2021-02-04 02:48] LABS: POTASSIUM 4.6 MMOL/L (3.6-5.0)
[2021-02-04 02:49] LABS: CALCIUM 8.4 MG/DL (8.5-10.1)
[2021-02-04 02:53] LABS: CREATININE SERUM 1.57 MG/DL (0.60-1.30); PHOSPHORUS 3.5 MG/DL (2.3-4.7)
[2021-02-04] MEDS: inSUlin ASPART (NovoLOG) 1 UNIT/0.01 ML (CHARGE PER UNIT) SC SCH ×4 (02:57→22:09)
--- NOTE | 2021-02-04 05:18 | Pulmonary Consultation ---
History of Present Illness History of Present Illness Date Seen by Provider: February 04, 2021 Time Seen by Provider: 05:14 Date of Admission Allergies and Home Medications Allergies Coded Allergies: sulfamethoxazole (Verified Allergy, Unknown, 10/13/17) trimethoprim (Verified Allergy, Unknown, 10/13/17) Home Medications Acetaminophen 500 Mg Tablet, 1,000 MG PO Q6H PRN for PAIN-MILD OR TEMPATURE, (Reported) Acetaminophen 500 Mg Tablet, 500 MG PO HS PRN for PAIN-MODERATE (5-7), (Reported) Albuterol Sulfate 2.5 Mg/3 Ml Vial.neb, 2.5 MG NEB Q4H PRN for SHORTNESS OF BREATH, (Reported) Amlodipine Besylate 5 Mg Tablet, 5 MG PO DAILY, (Reported) HOLD IF SBP<110 Aspirin 81 Mg Tablet.dr, 81 MG PO BID, (Reported) Atorvastatin Calcium 40 Mg Tablet, 40 MG PO HS, (Reported) B Complex with Vitamin C 1 Each Tablet, 1 EACH PO DAILY, (Reported) Bethanechol Chloride 10 Mg Tablet, 10 MG PO BID, (Reported) Bisacodyl 10 Mg Supp.rect, 10 MG RC DAILY PRN for CONSTIPATION-4TH LINE, (Reported) Cholecalciferol (Vitamin D3) 125 Mcg Tablet, 125 MCG PO HS, (Reported) Cinnamon Bark 500 Mg Capsule, 1,000 MG PO DAILY, (Reported) TAKES 2 (500 MG) CAPSULES Cranberry Extract 500 Mg Tablet, 1,000 MG PO DAILY, (Reported) Dapagliflozin Propanediol 10 Mg Tablet, 10 MG PO DAILY, (Reported) Diltiazem HCl 240 Mg Cap.er.24h, 240 MG PO DAILY, (Reported) HOLD IF PULSE IS LESS THAN 60 Docusate Sodium 100 Mg Capsule, 100 MG PO BID, (Reported) HOLD FOR LOOSE STOOLS Dronedarone HCl 400 Mg Tablet, 400 MG PO BID, (Reported) Dulaglutide 1.5 Mg/0.5 Ml Pen.injctr, 1.5 MG SQ THUR, (Reported) Famotidine 20 Mg Tablet, 20 MG PO DAILY, (Reported) Ferrous Sulfate 325 Mg Tablet, 325 MG PO DAILY, (Reported) Fluconazole 100 Mg Tablet, 100 MG PO DAILY Prescribed by: ALEJANDRA RUSH on 09/10/20 1045 Fluticasone Propionate 16 Gm Clar[place].susp, 2 SPRAYS NS DAILY, (Reported) Fluticasone/Vilanterol 1 Each Blst.w.dev, 1 EACH IH DAILY, (Reported) Furosemide 40 Mg Tablet, 40 MG PO DAILY, (Reported) Furosemide 20 Mg Tablet, 20 MG PO 1700, (Reported) Gabapentin 300 Mg Capsule, 300 MG PO BID, (Reported) Gluc Angulo/Chondro Angulo A/Vit C/Mn 1 Each Tablet, 2 TAB PO DAILY, (Reported) Guaifenesin/Dextromethorphan 118 Ml Liquid, 10 ML PO Q4H PRN for COUGH, (Reported) Hydroxyzine HCl 10 Mg Tablet, 10 MG PO 0700,1200, (Reported) Hydroxyzine Pamoate 25 Mg Capsule, 25 MG PO HS, (Reported) Insulin Aspart 100 Unit/1 Ml Susp, 30 UNIT SQ TID, (Reported) Insulin Detemir 100 Unit/1 Ml Insuln.pen, 35 UNIT SQ HS, (Reported) Insulin Detemir 100 Unit/1 Ml Insuln.pen, 40 UNIT SQ DAILY, (Reported) Ipratropium/Albuterol Sulfate 3 Ml Ampul.neb, 3 ML IH Q6H PRN for SHORTNESS OF BREATH, (Reported) Lidocaine 1 Each Adh..patch, 1 PATCH TD DAILY, (Reported) 4% APPLY TO UPPER RIGHT THIGH Magnesium Hydroxide/Al Hydrox 30 Ml Oral.susp, 30 ML PO DAILY PRN for CONSTIPATION-7TH LINE, (Reported) Melatonin 3 Mg Tablet, 3 MG PO HS, (Reported) Metoprolol Succinate 100 Mg Tab.er.24h, 100 MG PO DAILY, (Reported) HOLD FOR SYSTOLIC BP <100 AND HEART RATE <60 Miconazole Nitrate 10 Gm Powder, TOP BID, (Reported) APPLY TO GROIN AND UNDER BREASTS Multivits W-Fe,Other Min/Lut 1 Each Tablet, 1 EACH PO TID, (Reported) [place]-3/Dha/Epa/Fish Oil 1 Each Capsule, 2 CAP PO DAILY, (Reported) Oxycodone HCl 5 Mg Tablet, 5 MG PO Q4H PRN for PAIN-SEVERE (8-10), (Reported) Phenyleph/Mineral Oil/Petrolat 57 Gm Oint.appl, RC Q12H PRN for HEMORRHOIDS, (Reported) Potassium Chloride 10 Meq Capsule.er, 10 MEQ PO DAILY, (Reported) Sertraline HCl 50 Mg Tablet, 50 MG PO HS, (Reported) Sodium Chloride 30 Ml Clarion, 2 SPRAY NS Q4H PRN for DRY NOSE, (Reported) Sodium Chloride 30 Ml Clar[place], 2 SPRAY NS Q4H PRN for DRY NOSE, (Reported) Valerian Root 500 Mg Capsule, 530 MG PO DAILY PRN for ANXIETY, (Reported) [Blood Sugar 360] , 1 CAP PO UD PRN for BLOOD SUGAR MAINTENANCE, (Reported) [digize oil] , TOP UD PRN for DIGESTIVE DIFFICULTIES, (Reported) MAY BE USED TOPICALLY OR DABBED INSIDE MOUTH ON CHEEK, KEEP AT BEDSIDE AND SELF ADMINISTER FOR DIGESTIVE DIFFICULTIES. Past Noxjnms-Shdpyv-Ohzxxz Hx Patient Social History Type Used: Cigarettes Former Smoker, Quit: Sep 13, 1999 2nd Hand Smoke Exposure: No Recent Infectious Disease Expo: No Recent Hopitalizations: Yes Have you traveled recently?: No Alcohol Use?: No Immunizations Up To Date Tetanus Booster (TDap): Unknown PED Vaccines UTD: No Seasonal Allergies Seasonal Allergies: No Past Medical History Surgeries: Yes Joint Replacement, Nose, Orthopedic Respiratory: Yes (03/2017-REPSIRATORY ARREST DUE TO ASPIRATION WITH ASPIRATION PNEUMONIA, O2) COPD Currently Using CPAP: No Currently Using BIPAP: No Cardiac: Yes (HF) Atrial Fibrillation, Chronic Edema/Swelling, Coronary Artery Disease, High Cholesterol, Hypertension Neurological: Yes (STOKE LEFT SIDE WEAKNESS) Neuropathy, Stroke 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 Disorders: No [employer] History: Menopausal Genitourinary: Yes (CHRONIC KIDNEY DISEASE STAGE 3) UTI-Chronic Gastrointestinal: No Gastroesophageal Reflux, Chronic Constipation, Hemorrhoids, Ulcer Musculoskeletal: Yes (SPASMS IN L ARM FROM STROKE) Arthritis Endocrine: Yes Diabetes, Insulin dep HEENT: No Dysphagia Loss of Vision: Denies Hearing Impairment: Denies Cancer: No Psychosocial: Yes Sleep Difficulties, Anxiety, Depression Integumentary: No Blood Disorders: No Family Medical History Completed stroke 19 FATHER G8 BROTHER Diabetes mellitus G8 BROTHER Hypertension 19 FATHER 19 MOTHER CVA, Diabetes Review of Systems Time Seen by Provider: 05:14 Sepsis Event Evaluation Height, Weight, BMI Height: 5'6.00" Weight: 118lbs. 0.5oz. 53.544154cr; 44.81 BMI Method:Estimated Exam Exam Vital Signs Date Time Temp Pulse Resp B/P (MAP) Pulse Ox O2 Delivery O2 Flow Rate FiO2 02/04/21 04:20 36.9 Nasal Cannula 2.00 02/04/21 03:30 97 Nasal Cannula 2.00 02/04/21 02:03 97 Nasal Cannula 2.00 02/04/21 02:00 Nasal Cannula 2.00 02/04/21 01:00 80 02/03/21 23:28 Nasal Cannula 3.00 02/03/21 23:25 98 Nasal Cannula 3.00 02/03/21 23:20 36.8 Nasal Cannula 3.00 02/03/21 23:00 84 20 122/52 (75) 99 Nasal Cannula 4.00 02/03/21 22:00 86 20 131/56 (81) 99 Nasal Cannula 4.00 02/03/21 21:29 98 Nasal Cannula 4.00 02/03/21 21:20 37.5 02/03/21 21:00 90 20 138/53 (81) 98 Nasal Cannula 4.00 02/03/21 20:00 92 20 148/69 (95) 99 Nasal Cannula 4.00 02/03/21 20:00 37.8 02/03/21 19:30 99 Nasal Cannula 4.00 02/03/21 19:00 93 20 153/84 (107) 99 Nasal Cannula 4.00 02/03/21 19:00 92 02/03/21 19:00 93 20 153/84 (107) 99 Nasal Cannula 4.00 02/03/21 18:22 100 Nasal Cannula 4.00 02/03/21 18:00 142/74 (96) 97 Nasal Cannula 4.00 02/03/21 17:08 80 123/84 (97) 83 Nasal Cannula 4.00 02/03/21 16:47 38.2 96 87 21 02/03/21 16:02 37.2 Nasal Cannula 4.00 02/03/21 16:00 80 120/55 (76) 94 Nasal Cannula 4.00 02/03/21 15:52 96 Nasal Cannula 4.00 02/03/21 15:45 80 02/03/21 15:35 78 22 148/64 96 Nasal Cannula 4.00 02/03/21 12:59 85 32 97 50.00 02/03/21 12:54 92 32 94 50.00 02/03/21 12:08 Nasal Cannula 2.00 02/03/21 11:55 38.2 96 24 67/43 (51) 87 Room Air I & O 02/04/21 06:59 Intake Total 4180 ml Output Total 1590 ml Balance 2590 ml Height & Weight Height: 5'6.00" Weight: 118lbs. 0.5oz. 53.284932gy; 44.81 BMI Method:Estimated General Appearance: Moderate Distress, Obese, Other (Grunting type breathing with accessory muscle use, at least partially obesity hypoventilation related but tachypneic. Initial blood pressure on the right arm was 54 systolic, initial blood pressure on the left arm was 60 systolic. We were able to establish only a 22-gauge in the right shoulder as she has poor IV access. Went ahead and initiated BiPAP at 15/8 50% FiO2 and placed a right internal jugular central venous catheter ultrasound-guided.) Neck: Full Range of Motion, Normal Inspection Respiratory: Lungs Clear, Accessory Muscle Use, Respiratory Distress Cardiovascular: Normal Peripheral Pulses, Tachycardia Capillary Refill: Less Than 3 Seconds Gastrointestinal: normal bowel sounds, non tender, soft Extremity: Normal Capillary Refill, Normal Inspection, Other (Erythema right lateral thigh without crepitus or fluctuance.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: Alert, Oriented x3 Skin: Normal Color, Warm/Dry Results Lab Laboratory Tests 02/03/21 12:08 02/04/21 02:29 Assessment/Plan Assessment/Plan Acute respiratory failure -BiPAP PRN UTI with sepsis -Continue Merrem Cellulitis of RLE Depression PAFIB ANKIT CKD AMNA WRIGHT DO February 04, 2021 05:18
[2021-02-04] MEDS: MEROPENEM 500 MG/SWFI 10 ML IV PUSH IV SCH ×6 (05:37→22:09)
[2021-02-04] MEDS ORDERED: KCL 20 MEQ TAB (K-DUR) PO SCH (06:00)
[2021-02-04] MEDS ORDERED: MAGNESIUM 1 GM/100 ML IVPB 100 ML IV SCH (06:00)
[2021-02-04] MEDS ORDERED: POTASSIUM CL 10MEQ/50ML IVPB 50 ML IV SCH (06:00)
--- NOTE | 2021-02-04 07:51 | Diagnostic Imaging Report ---
INDICATION: Sepsis. TECHNIQUE: Single view chest 2:29 AM. CORRELATION STUDY: 02/03/2021 FINDINGS: Right IJ central line tip over the SVC. Heart size enlarged and mediastinum prominent but overall stable. Vasculature appears generally stable as well. The lungs are clear with no consolidating infiltrate. There is no significant effusion or pneumothorax. IMPRESSION: 1. Stable severity of cardiac enlargement and appearance of the vasculature. No evidence of overt failure. Dictated by: Dictated on workstation # [id number]
--- NOTE | 2021-02-04 09:09 | Progress Note ---
Subjective Subjective/Events-last exam Febrile to 38.2 yesterday afternoon, but overall is feeling better, states breathing is better. Usually uses oxygen at snf only at night. Focused Exam Lactate Level 02/03/21 12:32: Lactic Acid Level 1.96 Objective Exam Last Set of Vital Signs Vital Signs Date Time Temp Pulse Resp B/P (MAP) Pulse Ox O2 Delivery O2 Flow Rate FiO2 02/04/21 08:01 97 Nasal Cannula 2.00 02/04/21 08:00 36.4 89 28 118/53 (74) 02/03/21 16:47 21 Capillary Refill : Less Than 3 Seconds I&O Intake and Output 02/04/21 00:00 Intake Total 2980 ml Output Total 1325 ml Balance 1655 ml Intake Oral 970 ml IV Total 2010 ml Output Urine Total 1325 ml Daily Weight Change No General: Alert, No Acute Distress Lungs: Clear to Auscultation, Normal Air Movement Heart: Regular Rate Extremities: Other (venous stasis dermatitis, 1+ pitting edema) Skin: Other (erythematous patch on right thigh receding from lines drawn in ER) Psych/Mental Status: Mood NL Results/Procedures Lab Laboratory Tests 02/03/21 12:08: White Blood Count 14.7H, Red Blood Count 4.80, Hemoglobin 13.2, Hematocrit 43, Mean Corpuscular Volume 89, Mean Corpuscular Hemoglobin 28, Mean Corpuscular Hemoglobin Concent 31L, Red Cell Distribution Width 14.4, Platelet Count 221, Mean Platelet Volume 9.3, Immature Granulocyte % (Auto) 1, Neutrophils (%) (Auto) 84H, Lymphocytes (%) (Auto) 9L, Monocytes (%) (Auto) 6, Eosinophils (%) (Auto) 1, Basophils (%) (Auto) 0, Neutrophils # (Auto) 12.3H, Lymphocytes # (Auto) 1.3, Monocytes # (Auto) 0.8, Eosinophils # (Auto) 0.2, Basophils # (Auto) 0.1, Immature Granulocyte # (Auto) 0.1, Neutrophils % (Manual) 87, Lymphocytes % (Manual) 5, Monocytes % (Manual) 4, Eosinophils % (Manual) 2, Basophils % (Manual) 0, Band Neutrophils 2, Blood Morphology Comment NORMAL, Sodium Level 138, Potassium Level 4.7, Chloride Level 103, Carbon Dioxide Level 23, Anion Gap 12, Blood Urea Nitrogen 24H, Creatinine 1.64H, Estimat Glomerular Filtration Rate 31, BUN/Creatinine Ratio 15, Glucose Level 139H, Calcium Level 9.4, Corrected Calcium 9.6, Total Bilirubin 0.4, Aspartate Amino Transf (AST/SGOT) 29, Alanine Aminotransferase (ALT/SGPT) 26, Alkaline Phosphatase 148H, Total Protein 8.1, Albumin 3.8 02/03/21 12:32: Prothrombin Time 12.8, INR Comment 0.9, Activated Partial Thromboplast Time 20L, Lactic Acid Level 1.96 02/03/21 13:00: Urine Color YELLOW, Urine Clarity CLEAR, Urine pH 6.0, Urine Specific [place] 1.025H, Urine Protein 2+H, Urine Glucose (UA) NEGATIVE, Urine Ketones NEGATIVE, Urine Nitrite POSITIVEH, Urine Bilirubin NEGATIVE, Urine Urobilinogen 0.2, Urine Leukocyte Esterase 2+H, Urine RBC (Auto) 1+H, Urine RBC 0-2, Urine WBC >100H, Urine Crystals NONE, Urine Bacteria MODERATEH, Urine Casts NONE, Urine Mucus NEGATIVE, Urine Culture Indicated YES 02/03/21 13:02: Blood Gas Puncture Site RRAD, Blood Gas Patient Temperature 36.2, Arterial Blood pH 7.57H, Arterial Blood Partial Pressure CO2 21L, Arterial Blood Partial Pressure O2 135H, Arterial Blood HCO3 20L, Arterial Blood Total CO2 20.3L, Arterial Blood Oxygen Saturation 0L, Arterial Blood Base Excess -2.5, Jai Test POS, Blood Gas Ventilator Setting NO, Blood Gas Inspired Oxygen 50% 02/03/21 15:54: Glucometer 133H 02/03/21 19:52: Glucometer 176H 02/04/21 02:29: White Blood Count 14.4H, Red Blood Count 3.91, Hemoglobin 10.8L, Hematocrit 35, Mean Corpuscular Volume 89, Mean Corpuscular Hemoglobin 28, Mean Corpuscular Hemoglobin Concent 31L, Red Cell Distribution Width 14.6H, Platelet Count 183, Mean Platelet Volume 9.2, Immature Granulocyte % (Auto) 1, Neutrophils (%) (Auto) 85H, Lymphocytes (%) (Auto) 7L, Monocytes (%) (Auto) 7, Eosinophils (%) (Auto) 0, Basophils (%) (Auto) 0, Neutrophils # (Auto) 12.2H, Lymphocytes # (Auto) 1.0, Monocytes # (Auto) 0.9, Eosinophils # (Auto) 0.0, Basophils # (Auto) 0.0, Immature Granulocyte # (Auto) 0.1, Sodium Level 137, Potassium Level 4.6, Chloride Level 104, Carbon Dioxide Level 24, Anion Gap 9, Blood Urea Nitrogen 24H, Creatinine 1.57H, Estimat Glomerular Filtration Rate 32, BUN/Creatinine Ratio 15, Glucose Level 168H, Calcium Level 8.4L, Phosphorus Level 3.5, Magnesium Level 2.0 Microbiology 02/03/21 Urine Culture - Preliminary, Resulted Escherichia coli Strep Species, Beta Hemolytic Radiology CXR 02/03 unremarkable Assessment/Plan Assessment/Plan (1) Respiratory failure Status: Acute Assessment & Plan: Required bipap briefly in ER, thought to be partially related to obesity hypoventilation and anxiety/stress with vomiting. Now stable on 4 lpm supplemental oxygen. CXR unremarkable. 02/04 continues to improve, on 2 lpm this morning, wean as tolerated Qualifiers: Qualified Codes: J96.21 - Acute and chronic respiratory failure with hypoxia (2) Urinary tract infection Status: Acute Assessment & Plan: History of resistant infection, will treat with meropenem 02/04 clinically improving, culture with E coli and few other, sensitivity pending Qualifiers: Qualified Codes: N30.00 - Acute cystitis without hematuria (3) Sepsis Status: Acute Assessment & Plan: Secondary to UTI, possibly cellulitis. Qualifiers: Qualified Codes: A41.9 - Sepsis, unspecified organism (4) Cellulitis of right lower extremity Status: Acute Assessment & Plan: Possibly, although does not appear clearly infected, covered with meropenem based on previous UTI. (5) Depression Status: Chronic (6) Normocytic anemia Status: Chronic (7) Paroxysmal atrial fibrillation Status: Chronic Assessment & Plan: Resume home rate/rhythm meds, cannot tolerate full anticoagulation due to recurrent GI bleeds. (8) ANKIT (obstructive sleep apnea) Status: Chronic (9) Chronic kidney disease Status: Chronic Qualifiers: Qualified Codes: N18.32 - Chronic kidney disease, stage 3b (10) History of CVA (cerebrovascular accident) Status: Chronic (11) BMI 40.0-44.9, adult Status: Chronic (12) Bedbound Status: Chronic (13) Insulin dependent diabetes mellitus with complications Status: Chronic (14) DVT prophylaxis Status: Acute Assessment & Plan: Enoxaparin EUSEBIO WARD MD February 04, 2021 09:09
[2021-02-04] MEDS ORDERED: MULT-166 PO (09:41)
[2021-02-04] MEDS ORDERED: HYDR-3817 PO (09:41)
[2021-02-04] MEDS ORDERED: FLUT9.9S NS (09:46)
[2021-02-04 10:30] VITALS: BP 165/70
[2021-02-04 12:00] VITALS: BP 135/63
[2021-02-04] MEDS ORDERED: MEROPENEM 500 MG VIAL (MERREM) IV ONE (19:39)
[2021-02-04 20:00] VITALS: BP 113/70
[2021-02-04] MEDS ORDERED: WATER (STERILE) FOR INJECTION 10 ML ONE (21:25)
[2021-02-05] VITALS (7 sets, daily range): BP systolic 133–192; BP diastolic 60–86
[2021-02-05] MEDS: ACETAMINOPHEN 325 MG TABLET PO PRN (00:22)
[2021-02-05] MEDS: RT-ALBUTEROL/IPRATROPIUM 3 ML (DUONEB) VIAL INH SCH ×6 (02:09→21:24)
[2021-02-05] MEDS ORDERED: MEROPENEM 500 MG VIAL (MERREM) IV ONE ×2 (05:40→22:57)
[2021-02-05] MEDS: MEROPENEM 500 MG/SWFI 10 ML IV PUSH IV SCH ×6 (05:51→23:14)
[2021-02-05] MEDS: inSUlin ASPART (NovoLOG) 1 UNIT/0.01 ML (CHARGE PER UNIT) SC SCH ×5 (05:51→20:36)
[2021-02-05] MEDS: LACTATED RINGERS 1,000 ML IV SCH ×2 (05:51→16:25)
[2021-02-05 06:15] LABS: HEMATOCRIT 36 % (35-52); HEMOGLOBIN 11.4 g/dL (11.5-16.0); MEAN CORPUSCULAR HEMOGLOBIN 28 pg (25-34); MEAN CORPUSCULAR HGB CONC 32 g/dL (32-36); MEAN CORPUSCULAR VOLUME 87 fL (80-99); MEAN PLATELET VOLUME 8.9 fL (9.0-12.2); PLATELET COUNT 182 10^3/uL (130-400); WHITE BLOOD COUNT 10.5 10^3/uL (4.3-11.0)
[2021-02-05 06:34] LABS: POTASSIUM 4.3 MMOL/L (3.6-5.0)
[2021-02-05 06:39] LABS: CREATININE SERUM 1.22 MG/DL (0.60-1.30)
[2021-02-05] MEDS ORDERED: RT-ALBUTEROL/IPRATROPIUM 3 ML (DUONEB) VIAL IH PRN (07:00)
[2021-02-05] MEDS ORDERED: HYDROcodone/APAP 7.5 MG/325 MG (LORTAB, LORCET PLUS) TABLET PO PRN (07:00)
[2021-02-05] MEDS ORDERED: FLUTICASONE/VILANTEROL 100 MCG 14'S (BREO) IH SCH (09:00)
[2021-02-05] MEDS: FAMOTIDINE 20 MG (PEPCID) TABLET PO SCH (10:05)
[2021-02-05] MEDS: hydrOXYzine (ATARAX) 10 MG TAB PO SCH ×2 (10:05→12:16)
[2021-02-05] MEDS: FERROUS SULF 325 MG (IRON) TAB PO SCH (10:05)
[2021-02-05] MEDS: ASPIRIN E.C. 81 MG (ECOTRIN) TAB PO SCH ×2 (10:05→20:25)
[2021-02-05] MEDS: GABAPENTIN 300 MG (NEURONTIN) CAP PO SCH ×2 (10:05→20:26)
[2021-02-05] MEDS: FUROSEMIDE 40 MG (LASIX) TAB PO SCH (10:05)
[2021-02-05] MEDS: DRONEDARONE TABLET 400 MG TABLET PO SCH ×2 (10:06→20:25)
[2021-02-05] MEDS: BETHANECHOL 10 MG (URECHOLINE) TAB PO SCH ×2 (10:06→20:26)
[2021-02-05] MEDS: meTOprolol SUCCINATE 100 MG (TOPROL XL) TAB PO SCH (10:06)
[2021-02-05] MEDS: DOCUSATE SODIUM 100 MG (COLACE) CAP PO SCH ×2 (10:08→20:26)
[2021-02-05] MEDS: RT--FLUTICASONE/SALMETEROL 113-14 (AIRDUO RespiCLICK) IH SCH (12:15)
--- NOTE | 2021-02-05 13:42 | Progress Note ---
Subjective Subjective/Events-last exam Pt reports feeling better today, wants to go home. Afebrile. Still on 3 lpm supplemental oxygen, but she doesn't think she needs it. Focused Exam Lactate Level 02/03/21 12:32: Lactic Acid Level 1.96 Objective Exam Last Set of Vital Signs Vital Signs Date Time Temp Pulse Resp B/P (MAP) Pulse Ox O2 Delivery O2 Flow Rate FiO2 02/05/21 12:00 36.0 98 20 165/86 (112) 96 Nasal Cannula 3.00 02/03/21 16:47 21 Capillary Refill : Less Than 3 Seconds I&O Intake and Output 02/05/21 00:00 Intake Total 3920 ml Output Total 3705 ml Balance 215 ml Intake Oral 1920 ml IV Total 2000 ml Output Urine Total 3705 ml # Bowel Movements 3 General: Alert, No Acute Distress Lungs: Other (decreased air movement throughout) Heart: Regular Rate Abdomen: Normal Bowel Sounds Neuro: Normal Speech Psych/Mental Status: Mood NL Results/Procedures Lab Laboratory Tests 02/04/21 17:04: Glucometer 171H 02/04/21 22:01: Glucometer 205H 02/05/21 05:26: Glucometer 190H 02/05/21 06:00: White Blood Count 10.5, Red Blood Count 4.15, Hemoglobin 11.4L, Hematocrit 36, Mean Corpuscular Volume 87, Mean Corpuscular Hemoglobin 28, Mean Corpuscular Hemoglobin Concent 32, Red Cell Distribution Width 14.2, Platelet Count 182, Mean Platelet Volume 8.9L, Sodium Level 138, Potassium Level 4.3, Chloride Level 102, Carbon Dioxide Level 27, Anion Gap 9, Blood Urea Nitrogen 15, Creatinine 1.22, Estimat Glomerular Filtration Rate 43, BUN/Creatinine Ratio 12, Glucose Level 211H, Calcium Level 9.0 02/05/21 11:02: Glucometer 231H Microbiology 02/03/21 Blood Culture - Preliminary, Resulted No growth 02/03/21 Urine Culture - Final, Complete Escherichia coli Strep agalactiae Group B See Comments Radiology CXR 02/03 unremarkable Assessment/Plan Assessment/Plan (1) Respiratory failure Status: Acute Assessment & Plan: Required bipap briefly in ER, thought to be partially related to obesity hypoventilation and anxiety/stress with vomiting. Now stable on 4 lpm supplemental oxygen. CXR unremarkable. 02/04 continues to improve, on 2 lpm this morning, wean as tolerated Qualifiers: Qualified Codes: J96.21 - Acute and chronic respiratory failure with hypoxia (2) Urinary tract infection Status: Acute Assessment & Plan: History of resistant infection, will treat with meropenem 02/04 clinically improving, culture with E coli and few other, sensitivity pendin g Qualifiers: Qualified Codes: N30.00 - Acute cystitis without hematuria (3) Sepsis Status: Resolved Assessment & Plan: Secondary to UTI, possibly cellulitis. Qualifiers: Qualified Codes: A41.9 - Sepsis, unspecified organism (4) Cellulitis of right lower extremity Status: Acute Assessment & Plan: Possibly, although does not appear clearly infected, covered with meropenem based on previous UTI. (5) Depression Status: Chronic (6) Normocytic anemia Status: Chronic (7) Paroxysmal atrial fibrillation Status: Chronic Assessment & Plan: Resume home rate/rhythm meds, cannot tolerate full anticoagulation due to recurrent GI bleeds. (8) ANKIT (obstructive sleep apnea) Status: Chronic (9) Chronic kidney disease Status: Chronic Qualifiers: Qualified Codes: N18.32 - Chronic kidney disease, stage 3b (10) History of CVA (cerebrovascular accident) Status: Chronic (11) BMI 40.0-44.9, adult Status: Chronic (12) Bedbound Status: Chronic (13) Insulin dependent diabetes mellitus with complications Status: Chronic (14) DVT prophylaxis Status: Acute Assessment & Plan: Enoxaparin EUSEBIO WARD MD February 05, 2021 13:42
[2021-02-05] MEDS ORDERED: FUROSEMIDE 20 MG (LASIX) TAB PO SCH (17:00)
[2021-02-05] MEDS ORDERED: hydrOXYzine (VISTARIL/ATARAX) 25 MG capsule/tablet PO SCH (21:00)
[2021-02-05] MEDS ORDERED: SERTRALINE 50 MG (ZOLOFT) TABLET PO SCH (21:00)
[2021-02-05] MEDS ORDERED: MELATONIN 3 MG TABLET PO SCH (21:00)
[2021-02-05] MEDS ORDERED: WATER (STERILE) FOR INJECTION 10 ML ONE (22:56)
[2021-02-06] MEDS: RT-ALBUTEROL/IPRATROPIUM 3 ML (DUONEB) VIAL INH SCH ×3 (02:41→10:38)
[2021-02-06 03:38] VITALS: BP 136/63
[2021-02-06 05:45] LABS: HEMATOCRIT 34 % (35-52); HEMOGLOBIN 10.8 g/dL (11.5-16.0); MEAN CORPUSCULAR HEMOGLOBIN 27 pg (25-34); MEAN CORPUSCULAR HGB CONC 31 g/dL (32-36); MEAN CORPUSCULAR VOLUME 87 fL (80-99); PLATELET COUNT 179 10^3/uL (130-400); WHITE BLOOD COUNT 8.1 10^3/uL (4.3-11.0)
[2021-02-06] MEDS ORDERED: MEROPENEM 500 MG VIAL (MERREM) IV ONE ×2 (05:51→12:13)
[2021-02-06] MEDS ORDERED: WATER (STERILE) FOR INJECTION 10 ML ONE ×2 (05:51→12:13)
[2021-02-06 05:53] LABS: POTASSIUM 4.3 MMOL/L (3.6-5.0)
[2021-02-06] MEDS: inSUlin ASPART (NovoLOG) 1 UNIT/0.01 ML (CHARGE PER UNIT) SC SCH ×2 (05:57→11:01)
[2021-02-06 05:59] LABS: CREATININE SERUM 1.29 MG/DL (0.60-1.30)
[2021-02-06] MEDS: hydrOXYzine (ATARAX) 10 MG TAB PO SCH (06:02)
[2021-02-06] MEDS: LACTATED RINGERS 1,000 ML IV SCH (06:02)
[2021-02-06] MEDS: MEROPENEM 500 MG/SWFI 10 ML IV PUSH IV SCH ×4 (06:02→12:23)
[2021-02-06] MEDS: RT--FLUTICASONE/SALMETEROL 113-14 (AIRDUO RespiCLICK) IH SCH (07:10)
[2021-02-06] MEDS ORDERED: AMOX500T2 PO (07:33)
[2021-02-06] MEDS: FERROUS SULF 325 MG (IRON) TAB PO SCH (08:52)
[2021-02-06] MEDS: ASPIRIN E.C. 81 MG (ECOTRIN) TAB PO SCH (08:52)
[2021-02-06] MEDS: FAMOTIDINE 20 MG (PEPCID) TABLET PO SCH (08:52)
[2021-02-06] MEDS: GABAPENTIN 300 MG (NEURONTIN) CAP PO SCH (08:52)
[2021-02-06] MEDS: meTOprolol SUCCINATE 100 MG (TOPROL XL) TAB PO SCH (08:53)
[2021-02-06] MEDS: DRONEDARONE TABLET 400 MG TABLET PO SCH (08:53)
[2021-02-06] MEDS: BETHANECHOL 10 MG (URECHOLINE) TAB PO SCH (08:53)
[2021-02-06] MEDS: DOCUSATE SODIUM 100 MG (COLACE) CAP PO SCH (08:53)
[2021-02-06] MEDS: FUROSEMIDE 40 MG (LASIX) TAB PO SCH (08:56)
[2021-02-06 08:58] VITALS: BP 156/67
--- NOTE | 2021-02-06 09:11 | Diagnostic Imaging Report ---
INDICATION: Evaluate PICC line placement. COMPARISON: 02/04/2021 FINDINGS: Single frontal radiographic view of the chest was obtained and demonstrates interval placement of right upper extremity PICC line, tip which terminates in the low SVC. Cardiac silhouette and pulmonary vasculature are stable. Right internal jugular central venous catheter is again identified with tip in the SVC as well. Lungs continue to show low inspiratory volumes. There is increasing patchy airspace opacity within the right lung base. No large effusion or pneumothorax is seen. IMPRESSION: 1. New right upper extremity PICC line with tip in the low SVC. 2. Low lung volumes with probable new patchy right basilar atelectasis. Infiltrate cannot be entirely excluded. Followup is advised. Dictated by: Dictated on workstation # [id number]
--- NOTE | 2021-02-06 12:57 | Discharge Summary ---
Discharge Summary Hospital Course Problems/Diagnosis: (1) Respiratory failure Status: Acute Assessment & Plan: Required bipap briefly in ER, thought to be partially related to obesity hypoventilation and anxiety/stress with vomiting. Now stable on 4 lpm supplemental oxygen. CXR unremarkable. 02/04 continues to improve, on 2 lpm this morning, wean as tolerated 02/06 discharged on 2-3 lpm supplemental oxygen. Qualifiers: Qualified Codes: J96.21 - Acute and chronic respiratory failure with hypoxia (2) Urinary tract infection Status: Acute Assessment & Plan: History of resistant infection, will treat with meropenem 02/04 clinically improving, culture with E coli and few other, sensitivity pending 02/06 final sensitivity showed no resistance, discharged on amoxicillin Qualifiers: Qualified Codes: N30.00 - Acute cystitis without hematuria (3) Sepsis Status: Resolved Resolution Date/Time: 02/05/21 @ 13:42 Assessment & Plan: Secondary to UTI, possibly cellulitis. Qualifiers: Qualified Codes: A41.9 - Sepsis, unspecified organism (4) Cellulitis of right lower extremity Status: Acute Assessment & Plan: Possibly, although does not appear clearly infected, covered with meropenem based on previous UTI. (5) Depression Status: Chronic (6) Normocytic anemia Status: Chronic (7) Paroxysmal atrial fibrillation Status: Chronic Assessment & Plan: Resume home rate/rhythm meds, cannot tolerate full anticoagulation due to recurrent GI bleeds. (8) ANKIT (obstructive sleep apnea) Status: Chronic (9) Chronic kidney disease Status: Chronic Qualifiers: Qualified Codes: N18.32 - Chronic kidney disease, stage 3b (10) History of CVA (cerebrovascular accident) Status: Chronic (11) BMI 40.0-44.9, adult Status: Chronic (12) Bedbound Status: Chronic (13) Insulin dependent diabetes mellitus with complications Status: Chronic Hospital Course Date of Admission: February 03, 2021 at 12:57 Admission Diagnosis : Family Physician/Provider: Roberto Ramírez MD Date of Discharge: 02/06/21 Discharge Diagnosis: See problem list Hospital Course: See problem list Labs and Pending Lab Test: Laboratory Tests 02/05/21 16:36: Glucometer 201H 02/05/21 19:55: Glucometer 168H 02/06/21 05:40: White Blood Count 8.1, Red Blood Count 3.95, Hemoglobin 10.8L, Hematocrit 34L, Mean Corpuscular Volume 87, Mean Corpuscular Hemoglobin 27, Mean Corpuscular Hemoglobin Concent 31L, Red Cell Distribution Width 14.3, Platelet Count 179, Mean Platelet Volume 9.0, Sodium Level 140, Potassium Level 4.3, Chloride Level 103, Carbon Dioxide Level 27, Anion Gap 10, Blood Urea Nitrogen 15, Creatinine 1.29, Estimat Glomerular Filtration Rate 41, BUN/Creatinine Ratio 12, Glucose Level 124H, Calcium Level 9.0 02/06/21 10:54: Glucometer 146H Microbiology 02/03/21 Blood Culture - Preliminary, Resulted No growth 02/03/21 Urine Culture - Final, Complete Escherichia coli Strep agalactiae Group B See Comments Home Meds Active Amoxicillin 500 Mg Tablet 500 Mg PO BID 5 Days Reported Flonase Allergy Relief (Fluticasone Propionate) 9.9 Ml Babbitt.susp 2 Babbitt NS DAILY 2 SPRAYS PER NOSTRIL DAILY X 2 DAYS THEN 1 SPRAY DAILY Hydrocodone-Acetamin 7.5-325 (Hydrocodone/Acetaminophen) 1 Each Tablet 1 Each PO Q6H PRN Multivitamins with Minerals (Multivitamin with Minerals) 1 Each Tablet 1 Each PO TID Iprat-Albut 0.5-3(2.5) mg/3 ml (Ipratropium/Albuterol Sulfate) 3 Ml Ampul.neb 3 Ml IH Q6H PRN Potassium Chloride 10 Meq Capsule.er 10 Meq PO DAILY Diltiazem 24Hr Cd (Diltiazem HCl) 240 Mg Cap.er.24h 240 Mg PO DAILY HOLD IF PULSE IS LESS THAN 60 Neurontin (Gabapentin) 300 Mg Capsule 300 Mg PO BID Aspirin EC (Aspirin) 81 Mg Tablet.dr 81 Mg PO BID Hydroxyzine Pamoate 25 Mg Capsule 25 Mg PO HS Tylenol Extra Strength (Acetaminophen) 500 Mg Tablet 500 Mg PO HS Super B Complex-Vitamin C (B Complex with Vitamin C) 1 Each Tablet 1 Each PO DA ISAC Sertraline HCl 50 Mg Tablet 50 Mg PO HS Pepcid (Famotidine) 20 Mg Tablet 20 Mg PO DAILY Novolog (Insulin Aspart) 100 Unit/1 Ml Susp 30 Unit SQ TID Hydroxyzine HCl 10 Mg Tablet 10 Mg PO 0700,1200 Furosemide 20 Mg Tablet 20 Mg PO 1700 Breo Ellipta 100-25 Mcg INH (Fluticasone/Vilanterol) 1 Each Blst.w.dev 1 Each IH DAILY Guaiasorb Dm Liquid (Guaifenesin/Dextromethorphan) 118 Ml Liquid 10 Ml PO Q4H PRN Vitamin D3 (Cholecalciferol (Vitamin D3)) 125 Mcg Tablet 125 Mcg PO HS Lidocare (Lidocaine) 1 Each Adh..patch 1 Patch TD DAILY 4% APPLY TO UPPER RIGHT THIGH Levemir Flextouch (Insulin Detemir) 100 Unit/1 Ml Insuln.pen 40 Unit SQ BID Multaq (Dronedarone HCl) 400 Mg Tablet 400 Mg PO BID Furosemide 40 Mg Tablet 40 Mg PO DAILY Atorvastatin Calcium 40 Mg Tablet 40 Mg PO HS Miconazole Nitrate 10 Gm Powder TOP BID APPLY TO GROIN AND UNDER BREASTS [place] 3 500 Softgel ([place]-3/Dha/Epa/Fish Oil) 1 Each Capsule 2 Cap PO DAILY Urecholine (Bethanechol Chloride) 10 Mg Tablet 10 Mg PO BID Colace (Docusate Sodium) 100 Mg Capsule 100 Mg PO BID HOLD FOR LOOSE STOOLS Iron (Ferrous Sulfate) 325 Mg Tablet 325 Mg PO DAILY Glucosamine Chondroitin Tab (Gluc Angulo/Chondro Angulo A/Vit C/Mn) 1 Each Tablet 2 Tab PO DAILY Melatonin 3 Mg Tablet 3 Mg PO HS Cranberry (Cranberry Extract) 500 Mg Tablet 1,000 Mg PO DAILY [Blood Sugar 360] 1 Cap PO UD PRN Bisacodyl 10 Mg Supp.rect 10 Mg RC DAILY PRN Acetaminophen 500 Mg Tablet 1,000 Mg PO Q6H PRN [digize oil] TOP UD PRN MAY BE USED TOPICALLY OR DABBED INSIDE MOUTH ON CHEEK, KEEP AT BEDSIDE AND SELF ADMINISTER FOR DIGESTIVE DIFFICULTIES. Cinnamon (Cinnamon Bark) 500 Mg Capsule 1,000 Mg PO DAILY TAKES 2 (500 MG) CAPSULES Metoprolol Succinate 100 Mg Tab.er.24h 100 Mg PO DAILY HOLD FOR SYSTOLIC BP <100 AND HEART RATE <60 Assessment/Pt DC Instructions Follow up at nursing facility Discharge Diet: ADA Diet Activity as Tolerated: Yes Discharge Physical Examination Allergies: Coded Allergies: sulfamethoxazole (Verified Allergy, Unknown, 10/13/17) trimethoprim (Verified Allergy, Unknown, 10/13/17) General Appearance: No Apparent Distress Respiratory: Lungs Clear, Normal Breath Sounds Cardiovascular: Regular Rate, Rhythm Skin: Warm/Dry Neurologic/Psychiatric: Alert, Normal Mood/Affect EUSEBIO WARD MD February 06, 2021 12:57
== END 2021-02-06 13:00 | disposition hospice, home (50) | DRG 871 ==
LOC: EDUNIT# 11:51 → ER 11:53 → ICU 12:57 → 4TH 02-04 10:24
PROVIDERS: ADMIT Family Medicine; ATTEND Family Medicine
PROC: 02HV33Z Insertion of Infusion Device into Superior Vena Cava, Percutaneous Approach (ICD-10-PCS; principal; 2021-02-03)
DX: A41.9 Sepsis, unspecified organism (principal); J96.21 Acute and chronic respiratory failure with hypoxia; N39.0 Urinary tract infection, site not specified; I13.0 Hypertensive heart and chronic kidney disease with heart failure and stage 1 through stage 4 chronic kidney disease, or unspecified chronic kidney disease; L03.115 Cellulitis of right lower limb; I48.20 Chronic atrial fibrillation, unspecified; Z68.41 Body mass index [BMI] 40.0-44.9, adult; J44.9 Chronic obstructive pulmonary disease, unspecified; I25.10 Atherosclerotic heart disease of native coronary artery without angina pectoris; E78.00 Pure hypercholesterolemia, unspecified; E11.40 Type 2 diabetes mellitus with diabetic neuropathy, unspecified; E66.9 Obesity, unspecified; K21.9 Gastro-esophageal reflux disease without esophagitis; I50.9 Heart failure, unspecified; M19.90 Unspecified osteoarthritis, unspecified site; F41.9 Anxiety disorder, unspecified; F32.9 Major depressive disorder, single episode, unspecified; D64.9 Anemia, unspecified; N18.32 Chronic kidney disease, stage 3b; G47.33 Obstructive sleep apnea (adult) (pediatric); Z96.60 Presence of unspecified orthopedic joint implant; Z88.2 Allergy status to sulfonamides; Z79.82 Long term (current) use of aspirin; Z79.4 Long term (current) use of insulin; Z79.899 Other long term (current) drug therapy; Z86.73 Personal history of transient ischemic attack (TIA), and cerebral infarction without residual deficits; Z87.891 Personal history of nicotine dependence; Z74.01 Bed confinement status
CPT/HCPCS: 36415; 36556; 36569; 51702; 71045; 76937; 80048; 80053; 81000; 82805; 82947; 83605; 83735; 84100; 85007; 85025; 85027; 85610; 85730; 87040; 87077; 87088; 87186; 94640; 94760; 96361; 96374; 96375

== ENCOUNTER → 2021-03-08 | Outpatient (CLI) | payer MEDICARE, MEDICAID ==
[~2021-03-08] MED LIST changes: +AMOX500T2 PO; +FLUT9.9S NS; +HYDR-3817 PO; -MICO14CR TP; +MICO14CR7 TP; +MULT-166 PO
[2021-03-08 13:06] LABS: BILIRUBIN,URINE NEGATIVE (NEGATIVE); CLARITY,URINE CLOUDY; COLOR,URINE YELLOW; GLUCOSE, URINE (UA) NEGATIVE (NEGATIVE); KETONES,URINE NEGATIVE (NEGATIVE); LEUKOCYTE ESTERASE ,URINE 3+ (NEGATIVE); NITRITE,URINE POSITIVE (NEGATIVE); PROTEIN,URINE 2+ (NEGATIVE)
[2021-03-08 13:11] LABS: BACTERIA,URINE LARGE /HPF; SQUAMOUS EPITHELIAL CELL,UR 0-2 /HPF; WBC,URINE TNTC /HPF
== END ==
PROVIDERS: ATTEND Internal Medicine
DX: Z01.89 Encounter for other specified special examinations (principal)
CPT/HCPCS: 81000; 87077; 87088; 87184; 87186

== ENCOUNTER → 2021-04-03 | Outpatient (CLI) | payer MEDICARE, MEDICAID ==
--- NOTE | 2021-04-03 09:55 | Diagnostic Imaging Report ---
EXAMINATION: US Right Lower Extremity Venous Duplex. TECHNIQUE: Multiple real-time grayscale images were obtained over the right lower extremity in various projections. Additional spectral analysis and color Doppler duplex images were also obtained. HISTORY: Right lower extremity pain and edema, elevated D-dimer COMPARISON: Lower extremity ultrasound 02/19/2019 FINDINGS: Right: The common femoral, superficial femoral, popliteal, peroneal, posterior tibial, and greater saphenous veins demonstrate normal flow, augmentation, compressibility. IMPRESSION: 1. No DVT of the right lower extremity. Dictated by: Dictated on workstation # [id number]
== END ==
LOC: RAD 08:56
PROVIDERS: ATTEND Nurse Practitioner Family
DX: M79.661 Pain in right lower leg (principal); R60.0 Localized edema; R79.1 Abnormal coagulation profile

== ENCOUNTER → 2021-05-29 | Outpatient (CLI) | payer MEDICARE, MEDICAID ==
[~2021-05-29] VITALS: Ht 170.2 cm; Wt 127.5 kg
== END | disposition home or self-care (01) ==
LOC: PREOP 07:08
PROVIDERS: ATTEND Surgery
DX: Z01.818 Encounter for other preprocedural examination (principal)

== ENCOUNTER 2021-06-10 10:53 | Day surgery (SDC) | payer MEDICARE, MEDICAID ==
[2021-06-10] VITALS (7 sets, daily range): BP systolic 123–183; BP diastolic 65–84
[~2021-06-10] VITALS: Ht 170.2 cm; Wt 127.5 kg
[2021-06-10] MEDS ORDERED: LACTATED RINGERS 1,000 ML IV ONE (11:12)
[2021-06-10] MEDS ORDERED: LACTATED RINGERS 1,000 ML IV STA (11:13)
--- NOTE | 2021-06-10 11:22 | Progress Note-Pre Operative ---
Pre-Operative Progress Note H&P Reviewed The H&P was reviewed, patient examined and no changes noted. Date Seen by Provider: Jun 10, 2021 Time Seen by Provider: 11:22 Date H&P Reviewed: Jun 10, 2021 Time H&P Reviewed: :22 Pre-Operative Diagnosis: blood in stool LOU HARDIN DO Jun 10, 2021 11:22
--- NOTE | 2021-06-10 11:58 | Progress Note-Post Operative ---
Post-Operative Progess Note Surgeon (s)/Assistant Golf Coach (s) Surgeon LOU HARDIN DO Assistant Golf Coach: na Pre-Operative Diagnosis blood in stool Post-Operative Diagnosis internal hemorroids Procedure & Operative Findings Date of Procedure 06/10/21 Procedure Performed/Findings Colonoscopy Anesthesia Type per ground support agent Estimated Blood Loss Estimated blood loss (mL): none Specimens/Packing Specimens Removed none LOU HARDIN DO Jun 10, 2021 11:58
[2021-06-10] MEDS ORDERED: PROPOFOL INJECTION 50 ML IV ONE (12:07)
[2021-06-10] MEDS ORDERED: MIDAZOLAM 2 MG/2 ML (VERSED) VIAL ONE (12:07)
[2021-06-10] MEDS ORDERED: KETAMINE SYRINGE 50 MG/5 ML SYRINGE ONE (12:07)
--- NOTE | 2021-06-10 12:33 | Progress Note-Post Operative ---
Post-Operative Progess Note Surgeon (s)/Label Pinker (s) Surgeon LOU HARDIN DO Label Pinker: na Pre-Operative Diagnosis blood in stool Post-Operative Diagnosis hemorrhoids, diverticulosis, colon polyps Procedure & Operative Findings Date of Procedure 06/10/21 Procedure Performed/Findings colonoscopy c hot bx polypectomy x 5 Anesthesia Type per hearing instrument specialist Estimated Blood Loss Estimated blood loss (mL): none Specimens/Packing Specimens Removed colon polyps LOU HARDIN DO Jun 10, 2021 12:33
--- NOTE | 2021-06-10 12:34 | Discharge Inst-Simple/Standard ---
Discharge Inst-Standard Patient Instructions/Follow Up Plan of Care/Instructions/FU: 2 weeks Sharon Activity as Tolerated: Yes Discharge Diet: Regular Diet LOU HARDIN DO Jun 10, 2021 12:34
--- NOTE | 2021-06-10 14:36 | Anesthesia-General Post-Op ---
MAC Patient Condition Mental Status/LOC: Same as Preop Cardiovascular: Satisfactory Nausea/Vomiting: Absent Respiratory: Satisfactory Pain: Controlled Complications: Absent Post Op Complications Complications None Follow Up Care/Instructions Patient Instructions None needed. Anesthesiology Discharge Order Discharge Order Patient is doing well, no complaints, stable vital signs, no apparent adverse anesthesia problems. No complications reported per nursing. ELYSE BAZAN CRNA Jun 10, 2021 14:36
--- NOTE | 2021-06-10 19:37 | OPERATIVE REPORT ---
DATE OF SERVICE: 06/10/2021 PREOPERATIVE DIAGNOSIS: Blood in stool. POSTOPERATIVE DIAGNOSES: Hemorrhoids, diverticulosis, and colon polyps. PROCEDURES PERFORMED: Colonoscopy with hot biopsy polypectomy x5. SURGEON: Lou Herrera DO. ANESTHESIA: Per SOLUTIONS ARCHITECT. ESTIMATED BLOOD LOSS: None. COMPLICATIONS: None. INDICATIONS FOR PROCEDURE: The patient is a 70-year-old female needing colonoscopy due to blood in stool. She understands the risks and benefits of the procedure and wished to proceed with the procedure. Consent was signed in the chart. DESCRIPTION OF PROCEDURE: The patient was taken to the endoscopy suite and placed in a left lateral recumbent position. Timeout was performed. Digital rectal exam was performed noting significant hemorrhoids. Scope was inserted in the rectum. There were no palpable polyps, masses or ulcerations. Scope was inserted in the rectum and advanced all the way to cecum with minimal difficulty. Prep was adequate with irrigation and suction. Scope was then slowly retracted back. No polyps, masses or ulcerations within the cecum. There was a smaller polyp in the ascending colon, which hot biopsy polypectomy was performed. Scope was then continuously and slowly retracted back into the transverse colon noting two other polyps, which hot biopsy polypectomy was performed. Scope was then continuously and slowly retracted back into the descending with no polyps, masses or ulcerations. In the sigmoid colon, minimal amount of diverticulosis was present. There was also another polyp, which hot biopsy polypectomy was performed. Scope was then continuously and slowly retracted back in the rectum, where it was also retroflexed noting the internal hemorrhoids, but also noting a small polyp, which hot biopsy polypectomy was performed. Scope was then slowly retracted back until completely removed. The patient tolerated the procedure well without any complications. She was taken to the recovery room in a stable condition. RECOMMENDATIONS: The patient will need repeat colonoscopy on as needed basis. She will follow up on pathology. Bleeding source likely hemorrhoids. If the patient has any return of symptoms, she should be reevaluated at that time. Job ID: [id number] DocumentID: [id number] Dictated Date: 06/10/2021 12:37:14 Transonic Engineer Date: 06/10/2021 19:36:06 Dictated By: LOU HERRERA DO
== END 2021-06-10 14:00 | disposition home or self-care (01) ==
LOC: ENDO 10:53
PROVIDERS: ATTEND Surgery
DX: D12.2 Benign neoplasm of ascending colon (principal); D12.5 Benign neoplasm of sigmoid colon; K63.5 Polyp of colon; K57.30 Diverticulosis of large intestine without perforation or abscess without bleeding; K64.8 Other hemorrhoids; E78.2 Mixed hyperlipidemia; I13.0 Hypertensive heart and chronic kidney disease with heart failure and stage 1 through stage 4 chronic kidney disease, or unspecified chronic kidney disease; E10.22 Type 1 diabetes mellitus with diabetic chronic kidney disease; I50.9 Heart failure, unspecified; N18.30 Chronic kidney disease, stage 3 unspecified; E66.01 Morbid (severe) obesity due to excess calories; I65.29 Occlusion and stenosis of unspecified carotid artery; I48.91 Unspecified atrial fibrillation; I25.10 Atherosclerotic heart disease of native coronary artery without angina pectoris; F32.9 Major depressive disorder, single episode, unspecified; Z86.73 Personal history of transient ischemic attack (TIA), and cerebral infarction without residual deficits; Z99.81 Dependence on supplemental oxygen; Z79.899 Other long term (current) drug therapy; Z79.02 Long term (current) use of antithrombotics/antiplatelets; Z79.82 Long term (current) use of aspirin; Z79.4 Long term (current) use of insulin; Z88.2 Allergy status to sulfonamides
CPT/HCPCS: 88305

== ENCOUNTER 2021-06-25 07:03 | Outpatient (CLI) | payer MEDICARE, MEDICAID ==
[~2021-06-25] VITALS: Ht 170.2 cm
[2021-06-26] MEDS ORDERED: DILT240C90 PO (14:56)
[2021-06-26] MEDS ORDERED: CHOL500050 PO (14:56)
[2021-06-26] MEDS ORDERED: FLUT9.9S NS (18:55)
[2021-06-26] MEDS ORDERED: INSU100I29 SQ (18:55)
[2021-06-26] MEDS ORDERED: IPRA3AMP31 IH (18:55)
[2021-06-26] MEDS ORDERED: SERT-412 PO (18:55)
[2021-06-26] MEDS ORDERED: TIOT4MIS2 IH (18:55)
[2021-06-26] MEDS ORDERED: BISA10SU58 RC (18:55)
== END 2021-06-27 07:06 | disposition home or self-care (01) ==
LOC: PREOP 07:03
PROVIDERS: ATTEND Surgery
DX: Z01.818 Encounter for other preprocedural examination (principal)

== ENCOUNTER 2021-07-03 08:26 | Day surgery (SDC) | payer MEDICARE, MEDICAID ==
[2021-07-03] VITALS (12 sets, daily range): BP systolic 113–145; BP diastolic 41–76
[~2021-07-03] VITALS: Ht 170.2 cm; Wt 128.0 kg
[~2021-07-03 08:26] MED LIST changes: +BISA10SU58 RC; +CHOL500050 PO; +SERT-412 PO; +TIOT4MIS2 IH
--- NOTE | 2021-07-03 08:52 | Progress Note-Pre Operative ---
Pre-Operative Progress Note H&P Reviewed The H&P was reviewed, patient examined and no changes noted. Date Seen by Provider: Jul 03, 2021 Time Seen by Provider: 08:51 Date H&P Reviewed: Jul 03, 2021 Time H&P Reviewed: 08:51 Pre-Operative Diagnosis: cholelithiasis LOU HARDIN DO Jul 03, 2021 08:52
[2021-07-03] MEDS ORDERED: LIDOCAINE/EPI 1%-1:100,000 (XYLOCAINE) 20ML ONE (09:06)
[2021-07-03] MEDS ORDERED: ceFAZolin 2 GM IV Premixed 50 ML IV ONE (09:15)
[2021-07-03] MEDS ORDERED: ceFAZolin 2 GM IV Premixed 50 ML ONE (09:20)
[2021-07-03] MEDS: LACTATED RINGERS 1,000 ML IV PRN ×2 (09:28→11:32)
[2021-07-03] MEDS ORDERED: NEOSTIGMINE 3 MG/3 ML VIAL ONE (09:29)
[2021-07-03] MEDS ORDERED: proPOfol 200 MG/20 ML (DIPRIVAN) VIAL IV ONE (09:29)
[2021-07-03] MEDS ORDERED: ROCURONIUM 10 MG/ML 5 ML SYRINGE IV ONE (09:29)
[2021-07-03] MEDS ORDERED: GLYCOPYRROLATE 0.2 MG/ML (ROBINUL) 2 ML VIAL ONE (09:29)
[2021-07-03] MEDS ORDERED: LIDOCAINE PF 2% 5 ML (XYLOCAINE) VIAL ONE (09:29)
[2021-07-03] MEDS ORDERED: fentaNYL INJ 100 MCG/2 ML AMP ONE (09:29)
[2021-07-03] MEDS ORDERED: ONDANSETRON 4 MG/2 ML (SDV) Z0FRAN ONE (09:29)
[2021-07-03] MEDS ORDERED: SEVOFLURANE (ULTANE) 15 ML INHAL SOLN ONE (10:39)
--- NOTE | 2021-07-03 10:39 | Progress Note-Post Operative ---
Post-Operative Progess Note Surgeon (s)/Manager Testing (s) Surgeon LOU HARDIN DO Manager Testing: Dr. Renee villasenor in retraction dissection and closure Pre-Operative Diagnosis cholelithiasis Post-Operative Diagnosis same Procedure & Operative Findings Date of Procedure 07/03/21 Procedure Performed/Findings PROCEDURE: Laparoscopic cholecystectomy with intraoperative cholangiogram. COMPLICATIONS: None. PROCEDURE: The patient was taken to the operating suite and was prepped and draped in sterile fashion. A surgical pause was performed. Just superior to the umbilicus, a 12 mm incision was made. Dissection was taken down to the fascia, which was then scored and grasped with a Gabriel and the abdomen was then entered. A 0 Vicryl suture was placed in a [id number] fashion and a Clay trocar was placed and secured. Pneumoperitoneum was achieved. A 5mm trochar place in the subxyphoid and 2 in the right upper quadrant. The gallbladder was then grasped and elevated. The cystic duct, and cystic artery were then dissected out. Clip was placed on the distal portion of the cystic duct which was then partially transected. An arrow catheter was inserted into the duct. The cholangiogram was then performed. No filing defects and contrast made its way into the duodenum. Catheter removed. Clips were placed on proximal portion of the cystic duct and then the duct was then transected. An endoloop PDS was also placed around the cystic duct. Clips were placed along the proximal and distal portion of the cystic artery which was then transected. Hook cautery was used to dissect the gallbladder from the gallbladder fossa achieving hemostasis. The gallbladder was placed in an Endobag and removed through the 12 mm trocar site. The abdomen was then reinspected. Copious amounts of irrigation were used to irrigate the abdomen and there were no signs of active bleeding. Hemostasis had been achieved. The 12 mm fascial defect was then closed with 0 Vicryl suture that had been placed in a [id number]-wa-dlfxy fashion. The abdomen was then desufflated, the trocars were removed. The abdomen was then washed and dried. The skin was then closed using 4-0 Monocryl in a subcuticular fashion. The abdomen was washed and dried and Skin Affix was place over incisions. Patient tolerated the procedure well without any complications and was taken to the recovery room in stable condition. Anesthesia Type general Estimated Blood Loss Estimated blood loss (mL): minimal Specimens/Packing Specimens Removed gallbladder LOU HARDIN DO Jul 03, 2021 10:39
[2021-07-03] MEDS ORDERED: ACHD5005 PO (10:43)
--- NOTE | 2021-07-03 10:46 | Discharge Inst-Simple/Standard ---
Discharge Inst-Standard Discharge Medications New, Converted or Re-Newed RX: Transmitted to Pharmacy Patient Instructions/Follow Up Plan of Care/Instructions/FU: Sharon 2 weeks. Activity as Tolerated: No Discharge Diet: Regular Diet Other Inst to Patient Follow up Appt: Make appointment for 2 weeks. Instructions: No lifting greater than 10 pounds. No strenuous activity. May shower in 24 hours, no tub bath or soaking. Use incentive spirometer at home as directed. No Smoking Skin/Wound Care: You have special glue over incision, it will fall off on it's own. Symptoms to Report: Appetite Changes, Extremity Discoloration, Numbness/Tingling, Swelling Increased, Bleeding Excessive, Eyesight Changes, Pain Increased, Urine Color Change, Constipation(Persistent), Fever over 101 degree F, Pain/Pressure in chest, Urinating Difficulty, Cough Up/Vomit Blood, Heart Beat Irreg/Pounding, Pain/Pressure in jaw, Vaginal Bleeding Increase, Cramps in feet or legs, Lightheadedness, Pain/Pressure in shoulder, Diarrhea(Persistent), Memory Changes Suddenly, Questions/Concerns, Weight gain consecutive days, Dizziness/Fainting, Nausea/Vomiting, Shortness of Breath, Weight gain over 2 pounds. If eyes or skin turn yellow notify physician. If questions or concerns contact your physician Or seek help at emergency department. LOU HARDIN DO Jul 03, 2021 10:46
[2021-07-03] MEDS ORDERED: morphine INJ 10 MG/ML 1ML (SYR OR VIAL) IVP ONE (11:00)
[2021-07-03] MEDS ORDERED: fentaNYL INJ 100 MCG/2 ML AMP IVP ONE (11:00)
--- NOTE | 2021-07-03 11:13 | Diagnostic Imaging Report ---
INDICATION: Fluoroscopy for intraoperative cholangiogram. Fluoroscopy was provided in the OR during intraoperative cholangiogram. 26 seconds of fluoroscopic time was utilized. 105 images were obtained demonstrating contrast being injected via the cystic duct remnant. Intrahepatic and extrahepatic bile ducts were opacified. There are no filling defects seen. There does appear to be a small amount of contrast entering the duodenum. IMPRESSION: Fluoroscopy during intraoperative cholangiogram. Dictated by: Dictated on workstation # [id number]
[2021-07-03] MEDS: ONDANSETRON 4 MG/2 ML (SDV) Z0FRAN IVP PRN ×2 (11:30→11:45)
--- NOTE | 2021-07-03 12:53 | Anesthesia-General Post-Op ---
General Patient Condition Mental Status/LOC: Same as Preop Cardiovascular: Satisfactory Nausea/Vomiting: Absent Respiratory: Satisfactory Pain: Controlled Complications: Absent Post Op Complications Complications None Follow Up Care/Instructions Patient Instructions None needed. Anesthesia/Patient Condition Patient Condition Patient is doing well, no complaints, stable vital signs, no apparent adverse anesthesia problems. ANDREW GONCALVES DO Jul 03, 2021 12:53
== END 2021-07-03 15:58 | disposition home or self-care (01) ==
LOC: SDC 08:26
PROVIDERS: ATTEND Surgery
DX: K80.10 Calculus of gallbladder with chronic cholecystitis without obstruction (principal); E10.9 Type 1 diabetes mellitus without complications; E78.2 Mixed hyperlipidemia; I65.29 Occlusion and stenosis of unspecified carotid artery; K64.8 Other hemorrhoids; K63.5 Polyp of colon; K92.1 Melena; D12.6 Benign neoplasm of colon, unspecified; I25.10 Atherosclerotic heart disease of native coronary artery without angina pectoris; I11.9 Hypertensive heart disease without heart failure; I69.354 Hemiplegia and hemiparesis following cerebral infarction affecting left non-dominant side; I48.91 Unspecified atrial fibrillation; J44.9 Chronic obstructive pulmonary disease, unspecified; F32.A Depression, unspecified; F41.9 Anxiety disorder, unspecified; K21.9 Gastro-esophageal reflux disease without esophagitis; E66.01 Morbid (severe) obesity due to excess calories; F17.210 Nicotine dependence, cigarettes, uncomplicated; Z79.82 Long term (current) use of aspirin; Z79.899 Other long term (current) drug therapy; Z79.4 Long term (current) use of insulin; Z79.02 Long term (current) use of antithrombotics/antiplatelets; Z79.891 Long term (current) use of opiate analgesic; Z86.010 Personal history of colon polyps; Z88.2 Allergy status to sulfonamides; Z68.42 Body mass index [BMI] 45.0-49.9, adult; E10.42 Type 1 diabetes mellitus with diabetic polyneuropathy
CPT/HCPCS: 76000; 87081

== ENCOUNTER 2021-07-29 06:07 | Outpatient (CLI) | payer MEDICARE, MEDICAID ==
[~2021-07-29] VITALS: Ht 167.7 cm; Wt 127.3 kg
[~2021-07-29 06:07] MED LIST changes: +FLUT9.9S NSEACH
== END 2021-07-29 10:01 | disposition home or self-care (01) ==
LOC: PREOP 06:07
PROVIDERS: ATTEND Specialist
DX: Z01.818 Encounter for other preprocedural examination (principal)

== ENCOUNTER 2021-08-01 06:25 | Day surgery (SDC) | payer MEDICARE, MEDICAID ==
[~2021-08-01] VITALS: Ht 167.7 cm; Wt 127.3 kg
[2021-08-01] MEDS ORDERED: LIDOCAINE PF 1% 2 ML VIAL IR PRN (06:45)
[2021-08-01] MEDS ORDERED: MOXIFLOXACIN OPHTH SOLN 5 MG/ML 0.3 ML SYRINGE OP ONE (06:45)
[2021-08-01] MEDS ORDERED: TIMOLOL MALEATE 0.5% 5 ML (TIMOPTIC) BTL OU PRN (06:45)
[2021-08-01] MEDS ORDERED: POVIDONE (BETADINE) OPHTH SOLN 5% 30 ML OP ONE (06:45)
[2021-08-01 06:50] VITALS: BP 125/51
[2021-08-01] MEDS: TETRACAINE 0.5% OPHTH SOLN 4 ML BTL (SINGLE DOSE ONLY) OU PRN ×4 (06:53→07:16)
[2021-08-01] MEDS: TROPICAMIDE 1% OPH SOLN (MYDRIACYL) 15 ML BTL OP SCH ×3 (06:59→07:16)
[2021-08-01] MEDS: PHENYLEPHRINE 10% OPHTH (NEO-SYN) 5 ML BTL OU SCH ×3 (06:59→07:16)
[2021-08-01] MEDS ORDERED: MIDAZOLAM 2 MG/2 ML (VERSED) VIAL ONE (07:39)
--- NOTE | 2021-08-01 07:58 | Ophthalmologist Pre-Op Note ---
Pre-Operative Progress Note H&P Reviewed The H&P was reviewed, patient examined and no changes noted. Date H&P Reviewed: Aug 01, 2021 Time H&P Reviewed: 07:57 Pre-Op Dx Cataract, Right Eye MEOÑ MILLER MD Aug 01, 2021 07:58
[2021-08-01] MEDS ORDERED: acetaZOLAMIDE ER 500 MG CAP (DIAMOX SEQUELS) PO ONE (08:00)
--- NOTE | 2021-08-01 08:13 | Ophthalmology Operative Report ---
Cataract removal/placement IOL PREOPERATIVE DIAGNOSIS: Cataract Right Eye POSTOPERATIVE DIAGNOSIS: Cataract Right Eye PROCEDURE: Cataract removal and placement of posterior chamber implant, right eye SURGEON: Deng Miller ANESTHESIA: Topical with sedation COMPLICATIONS: None ESTIMATED BLOOD LOSS: Minimal DESCRIPTION OF PROCEDURE: After proper informed consent was obtained, the patient, a 70 female, was taken to the Operating Room and the right eye was anesthetized with tetracaine. The right eye was then prepped and draped in the usual manner. A wire lid speculum was placed. A paracentesis was made at the left hand position. Preservative free lidocaine was injected into the anterior chamber followed by viscoelastic. A clear corneal incision was made in the temporal position. A capsulorrhexis was preformed and the central nuclear and cortical material were removed. The posterior capsule was polished and Mike 16.5 AU00T0 IOL was placed into the capsular bag. The residual viscoelastic was aspirated and balanced saline solution was injected into the anterior chamber. Moxifloxacin was injected into the anterior chamber. The wound was checked and found to be water tight. The patient tolerated the procedure well without complications. DENG MILLER MD Aug 01, 2021 08:13
[2021-08-01 08:30] VITALS: BP 135/66
--- NOTE | 2021-08-01 13:52 | Anesthesia-General Post-Op ---
MAC Patient Condition Mental Status/LOC: Same as Preop Cardiovascular: Satisfactory Nausea/Vomiting: Absent Respiratory: Satisfactory Pain: Controlled Complications: Absent Post Op Complications Complications None Follow Up Care/Instructions Patient Instructions None needed. Anesthesiology Discharge Order Discharge Order Patient was seen after the procedure and she was doing well, no complaints, stable vital signs, no apparent adverse anesthesia problems. ANDREW GONCALVES DO Aug 01, 2021 13:52
== END 2021-08-01 08:30 | disposition home or self-care (01) ==
LOC: SDC 06:25
PROVIDERS: ATTEND Specialist
DX: E11.36 Type 2 diabetes mellitus with diabetic cataract (principal); H25.11 Age-related nuclear cataract, right eye; K21.9 Gastro-esophageal reflux disease without esophagitis; I25.10 Atherosclerotic heart disease of native coronary artery without angina pectoris; I10 Essential (primary) hypertension; I48.91 Unspecified atrial fibrillation; J44.9 Chronic obstructive pulmonary disease, unspecified; E11.40 Type 2 diabetes mellitus with diabetic neuropathy, unspecified; E66.01 Morbid (severe) obesity due to excess calories; Z68.42 Body mass index [BMI] 45.0-49.9, adult; F32.A Depression, unspecified; Z87.891 Personal history of nicotine dependence; E78.00 Pure hypercholesterolemia, unspecified; D64.9 Anemia, unspecified; Z79.82 Long term (current) use of aspirin; Z79.899 Other long term (current) drug therapy
CPT/HCPCS: 66984; V2632

== ENCOUNTER → 2021-09-14 | Outpatient (CLI) | payer MEDICARE, MEDICAID ==
[~2021-09-14] MED LIST changes: -CITA10TA7 PO; +CITA10TA9 PO; +POTA-160 PO; -POTA10TA6 PO
[2021-09-14 08:19] LABS: BILIRUBIN,URINE NEGATIVE (NEGATIVE); CLARITY,URINE CLOUDY; COLOR,URINE YELLOW; GLUCOSE, URINE (UA) 2+ (NEGATIVE); KETONES,URINE NEGATIVE (NEGATIVE); LEUKOCYTE ESTERASE ,URINE 2+ (NEGATIVE); NITRITE,URINE POSITIVE (NEGATIVE); PROTEIN,URINE TRACE (NEGATIVE)
[2021-09-14 08:27] LABS: BACTERIA,URINE MODERATE /HPF; WBC,URINE TNTC /HPF; YEAST,URINE FEW /HPF
== END ==
LOC: LABNPT 08:05
PROVIDERS: ATTEND Internal Medicine
DX: N39.0 Urinary tract infection, site not specified (principal)
CPT/HCPCS: 81000; 87077; 87088

== ENCOUNTER → 2021-11-07 | Outpatient (CLI) | payer MEDICARE, MEDICAID ==
[~2021-11-07] VITALS: Ht 167.4 cm; Wt 128.5 kg
== END ==
LOC: PREOP 05:36
PROVIDERS: ATTEND Specialist
DX: Z01.818 Encounter for other preprocedural examination (principal)

== ENCOUNTER 2021-11-14 07:35 | Day surgery (SDC) | payer MEDICARE, MEDICAID ==
[~2021-11-14] VITALS: Ht 167.4 cm; Wt 128.5 kg
[2021-11-14] MEDS ORDERED: POVIDONE (BETADINE) OPHTH SOLN 5% 30 ML OP ONE (08:45)
[2021-11-14] MEDS ORDERED: LIDOCAINE PF 1% 2 ML VIAL IR PRN (08:45)
[2021-11-14] MEDS ORDERED: TIMOLOL MALEATE 0.5% 5 ML (TIMOPTIC) BTL OU PRN (08:45)
[2021-11-14] MEDS ORDERED: MOXIFLOXACIN OPHTH SOLN 5 MG/ML 0.3 ML SYRINGE OP ONE (08:45)
[2021-11-14] MEDS: TETRACAINE 0.5% OPHTH SOLN 4 ML BTL (SINGLE DOSE ONLY) OU PRN ×4 (08:52→09:08)
[2021-11-14] MEDS: TROPICAMIDE 1% OPH SOLN (MYDRIACYL) 15 ML BTL OP SCH ×3 (08:58→09:08)
[2021-11-14] MEDS: PHENYLEPHRINE 10% OPHTH (NEO-SYN) 5 ML BTL OU SCH ×3 (08:58→09:08)
[2021-11-14 09:00] VITALS: BP 127/57
--- NOTE | 2021-11-14 09:17 | Ophthalmologist Pre-Op Note ---
Pre-Operative Progress Note H&P Reviewed The H&P was reviewed, patient examined and no changes noted. Date H&P Reviewed: Nov 14, 2021 Time H&P Reviewed: 09:17 Pre-Op Dx Cataract, Left Eye MEÑO MILLER MD Nov 14, 2021 09:17
[2021-11-14] MEDS ORDERED: MIDAZOLAM 2 MG/2 ML (VERSED) VIAL ONE (09:22)
--- NOTE | 2021-11-14 09:45 | Ophthalmology Operative Report ---
Cataract, Miotic Pupil PREOPERATIVE DIAGNOSIS: 1. Cataract Left Eye 2. Miotic Pupil POSTOPERATIVE DIAGNOSIS: 1. Cataract Left Eye 2. Miotic Pupil PROCEDURE: 1. Cataract removal and placement of posterior chamber implant, left eye 2. Pupillary expansion with malyugin ring SURGEON: Deng Miller ANESTHESIA: Topical with sedation COMPLICATIONS: None ESTIMATED BLOOD LOSS: Minimal DESCRIPTION OF PROCEDURE: After proper informed consent was obtained, the patient, a 71 female, was taken to the Operating Room and the left eye was anesthetized with Tetracaine. The eye was then prepped and draped in the usual manner. A wire lid speculum was placed. A paracentesis was made at the left hand position. Preservative free l idocaine was injected into anterior chamber followed by viscoelastic. A clear corneal incision was made in the temporal position. The malyugin ring was injected into the anterior chamber and the pupil was dilated. A capsulorrhexis was preformed and the central nuclear and cortical material were removed. The posterior capsule was polished and Mike 18.0 AU00T0 IOL was placed into the capsular bag. The myalgian ring was removed. The residual viscoelastic was aspirated and the balanced saline solution was injected into the anterior chamber. Moxifloxacin was injected into the anterior chamber. The wound was checked and found to be water tight. The patient tolerated the procedure well without complications. [Limbal Relaxing Incision placed ] [ ]mm at [ ]. DENG MILLER MD Nov 14, 2021 09:45
[2021-11-14 09:56] VITALS: BP 148/65
[2021-11-14] MEDS ORDERED: acetaZOLAMIDE ER 500 MG CAP (DIAMOX SEQUELS) PO ONE (11:15)
--- NOTE | 2021-11-14 12:30 | Anesthesia-General Post-Op ---
MAC Patient Condition Mental Status/LOC: Same as Preop Cardiovascular: Satisfactory Nausea/Vomiting: Absent Respiratory: Satisfactory Pain: Controlled Complications: Absent Post Op Complications Complications None Follow Up Care/Instructions Patient Instructions None needed. Anesthesiology Discharge Order Discharge Order Patient is doing well, no complaints, stable vital signs, no apparent adverse anesthesia problems. No complications reported per nursing. ELYSE BAZAN CRNA Nov 14, 2021 12:30
== END 2021-11-14 09:59 | disposition home or self-care (01) ==
LOC: SDC 07:35
PROVIDERS: ATTEND Specialist
DX: E11.36 Type 2 diabetes mellitus with diabetic cataract (principal); H25.9 Unspecified age-related cataract; H57.03 Miosis; E66.9 Obesity, unspecified; Z68.42 Body mass index [BMI] 45.0-49.9, adult; Z79.4 Long term (current) use of insulin; Z87.891 Personal history of nicotine dependence
CPT/HCPCS: 66982; V2632

== ENCOUNTER → 2022-05-21 | Outpatient (CLI) | payer MEDICARE, MEDICAID ==
[~2022-05-21] MED LIST changes: -CRAN500T3 PO; +CRAN500T4 PO; -GLUC1TAB20 PO; +GLUC1TAB21 PO; +OMEP20TA56 PO; -OMEP20TA7 PO
--- NOTE | 2022-05-21 13:16 | Diagnostic Imaging Report ---
PROCEDURE: US Renal Bilateral. TECHNIQUE: Multiple real-time grayscale images were obtained over the kidneys in various projections bilaterally. INDICATION: Chronic kidney disease. FINDINGS: Right kidney measures 11 x 4.7 x 5.3 cm. Left kidney measures 9.8 x 6 x 5.9 cm. Both kidneys grossly demonstrate normal renal cortical thickness and echogenicity. There is no hydronephrosis, calculi or mass. Overall examination is somewhat limited due to patient's body habitus and inability to hold breath. Neither ureteral jet was visualized IMPRESSION: Unremarkable sonographic appearance of the kidneys. Dictated by: Dictated on workstation # [id number]
== END ==
LOC: RAD 12:00
PROVIDERS: ATTEND Internal Medicine Nephrology
DX: I12.9 Hypertensive chronic kidney disease with stage 1 through stage 4 chronic kidney disease, or unspecified chronic kidney disease (principal); N18.32 Chronic kidney disease, stage 3b; E21.2 Other hyperparathyroidism; R60.0 Localized edema; D50.8 Other iron deficiency anemias
CPT/HCPCS: 76770

== ENCOUNTER → 2022-08-02 | Outpatient (CLI) | payer MEDICARE, MEDICAID | LOC: LABNPT 14:44 | PROVIDERS: ATTEND Internal Medicine Nephrology | DX: I12.9 Hypertensive chronic kidney disease with stage 1 through stage 4 chronic kidney disease, or unspecified chronic kidney disease (principal); N18.9 Chronic kidney disease, unspecified; D50.8 Other iron deficiency anemias; R60.0 Localized edema; E05.90 Thyrotoxicosis, unspecified without thyrotoxic crisis or storm | CPT/HCPCS: 82570; 84156 ==

== ENCOUNTER 2022-08-28 11:17 | Inpatient (IN) | payer MEDICARE, MEDICAID ==
[~2022-08-28] VITALS: Ht 167.7 cm; Wt 134.1 kg
[~2022-08-28 11:17] MED LIST changes: +CEFEPIME INJECTION 1,000 MG in NS (IVPB) 50 ML IV SCH; +CLOP-31 PO; -CLOP75TA69 PO
--- NOTE | 2022-08-28 12:22 | ED General ---
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 PT STATES "I FEEL NORMAL I DON'T THINK I FEEL SICK." PT A&OX4. Source of Information: Patient Exam Limitations: No Limitations History of Present Illness Date Seen by Provider: Aug 28, 2022 Time Seen by Provider: 12:18 Initial Comments Patient is a 72-year-old female presents to the emergency department today with a chief complaint of having a fever reportedly to 106 this morning at medical [place]. She woke up weak and lethargic. Oxygen was reportedly at 90%. One of the nurse practitioners from [facility] that manages Ms. Engel called me to let me know she would be coming over. 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 She is considered a "full code". Maren herself states that she is having no complaints although she has quite labored breathing. She is listing off to the left side in the wheelchair. Her oxygen level is 90 to 93% on room air. Poor overall air movement but this is limited due to her size. Abdomen is soft. She has some shallow ulcers on the posterior aspect of her right upper thigh and her right lower extremity is warm and red. Again patient herself has no complaints. Timing/Duration: 1 Day Severity: Moderate Associated Systoms: Denies Symptoms Allergies and Home Medications Allergies Coded Allergies: sulfamethoxazole (Verified Allergy, Unknown, 10/13/17) trimethoprim (Verified Allergy, Unknown, 10/13/17) Patient Home Medication List Home Medication List Reviewed: Yes Acetaminophen (Acetaminophen) 500 Mg Tablet, 1,000 MG PO Q6H PRN for PAIN-MILD OR TEMPATURE, (Reported) Entered as Reported by: TAMIKO RASHEED on 08/29/17 1202 Acetaminophen (Tylenol Extra Strength) 500 Mg Tablet, 500 MG PO HS, (Reported) Entered as Reported by: NELIA KING on 04/22/20 0849 Aspirin (Aspirin EC) 81 Mg Tablet.dr, 81 MG PO BID, (Reported) Entered as Reported by: NELIA KING on 07/22/20 1134 Atorvastatin Calcium (Atorvastatin Calcium) 40 Mg Tablet, 40 MG PO HS, (Reported) Entered as Reported by: JORGE ASH on 04/20/19 1333 B Complex with Vitamin C (Super B Complex-Vitamin C) 1 Each Tablet, 1 EACH PO DAILY, (Reported) Entered as Reported by: NELIA KING on 04/22/20 0849 Bethanechol Chloride (Urecholine) 10 Mg Tablet, 10 MG PO BID, (Reported) Entered as Reported by: JORGE ASH on 04/20/19 1151 Bisacodyl (Dulcolax) 10 Mg Supp.rect, 10 MG RC DAILY PRN PRN for CONSTIPATION- 1ST LINE, (Reported) Entered as Reported by: DASH HOWELL on 06/26/21 1855 Cholecalciferol (Vitamin D3) (Vitamin D3) 125 Mcg Capsule, 125 MCG PO DAILY, (Reported) Entered as Reported by: DASH HOWELL on 06/26/21 1456 Cinnamon Bark (Cinnamon) 500 Mg Capsule, 1,000 MG PO DAILY, (Reported) Entered as Reported by: JAMEL BARRIENTOS on 03/28/17 0929 Cranberry Extract (Cranberry) 500 Mg Tablet, 1,000 MG PO DAILY, (Reported) Entered as Reported by: JORGE ASH on 10/13/17 1023 Diltiazem HCl (Diltiazem 24Hr Cd) 240 Mg Cap.er.24h, 240 MG PO DAILY, (Reported) Entered as Reported by: DASH HOWELL on 06/26/21 1456 Docusate Sodium (Colace) 100 Mg Capsule, 100 MG PO BID, (Reported) Entered as Reported by: JANELLE DURHAM on 09/15/18 0928 Dronedarone HCl (Multaq) 400 Mg Tablet, 400 MG PO BID, (Reported) Entered as Reported by: JORGE ASH on 06/01/19 1315 Famotidine (Pepcid) 20 Mg Tablet, 20 MG PO DAILY, (Reported) Entered as Reported by: NELIA KING on 04/22/20 0849 Ferrous Sulfate (Iron) 325 Mg Tablet, 325 MG PO DAILY, (Reported) Entered as Reported by: JORGE ASH on 10/13/17 1023 Fluticasone Propionate (Flonase Allergy Relief) 9.9 Ml [place].susp, 2 SPRAY NSEACH DAILY, (Reported) Entered as Reported by: DASH HOWELL on 06/26/21 185 Furosemide (Furosemide) 40 Mg Tablet, 40 MG PO DAILY, (Reported) Entered as Reported by: JORGE ASH on 06/01/19 1315 Furosemide (Furosemide) 20 Mg Tablet, 20 MG PO 1700, (Reported) Entered as Reported by: NELIA KING on 04/22/20 0849 Gabapentin (Neurontin) 300 Mg Capsule, 300 MG PO BID, (Reported) Entered as Reported by: NELIA KING on 07/22/20 1134 Gluc Angulo/Chondro Angulo A/Vit C/Mn (Glucosamine Chondroitin Tab) 1 Each Tablet, 2 TAB PO DAILY, (Reported) Entered as Reported by: JORGE ASH on 10/13/17 1023 Guaifenesin/Dextromethorphan (Guaiasorb Dm Liquid) 118 Ml Liquid, 10 ML PO Q4H PRN for COUGH, (Reported) Entered as Reported by: NELIA KING on 04/22/20 0849 Hydrocodone/Acetaminophen (Hydrocodone-Acetamin 5-325 mg) 1 Each Tablet, 1-2 EACH PO Q6H PRN for PAIN-MODERATE (5-7) Prescribed by: LOU HARDIN on 07/03/21 1045 Hydroxyzine HCl (Hydroxyzine HCl) 10 Mg Tablet, 10 MG PO 0700,1200, (Reported) Entered as Reported by: NELIA KING on 04/22/20 0849 Hydroxyzine Pamoate (Hydroxyzine Pamoate) 25 Mg Capsule, 25 MG PO HS, (Reported) Entered as Reported by: NELIA KING on 04/22/20 0849 Insulin Aspart (Novolog) 100 Unit/1 Ml Susp, 30 UNIT SQ TID, (Reported) Entered as Reported by: NELIA KING on 04/22/20 08 Insulin Detemir (Levemir Flextouch) 100 Unit/1 Ml Insuln.pen, 28 UNIT SQ BID, (Reported) Entered as Reported by: DASH HOWELL on 06/26/21 185 Ipratropium/Albuterol Sulfate (Iprat-Albut 0.5-3(2.5) mg/3 ml) 3 Ml Ampul.neb, 3 ML IH Q6H PRN for SHORTNESS OF BREATH, (Reported) Entered as Reported by: DASH HOWELL on 06/26/21 1855 Lidocaine (Lidocare) 1 Each Adh..patch, 1 PATCH TD DAILY, (Reported) Entered as Reported by: JORGE ASH on 07/28/19 1515 Melatonin (Melatonin) 3 Mg Tablet, 3 MG PO HS, (Reported) Entered as Reported by: JORGE ASH on 10/13/17 1023 Metoprolol Succinate (Metoprolol Succinate) 100 Mg Tab.er.24h, 100 MG PO DAILY, (Reported) Entered as Reported by: JANELLE DURHAM on 04/09/16 1445 Miconazole Nitrate (Miconazole Nitrate) 10 Gm Powder, TOP BID, (Reported) Entered as Reported by: JORGE ASH on 04/20/19 1151 Multivitamin with Minerals (Multivitamins with Minerals) 1 Each Tablet, 1 EACH PO TID, (Reported) Entered as Reported by: NELIA KING on 02/04/21 0941 [place]-3/Dha/Epa/Fish Oil ([place] 3 500 Softgel) 1 Each Capsule, 2 CAP PO DAILY, (Reported) Entered as Reported by: JORGE ASH on 04/20/19 1151 Potassium Chloride (Potassium Chloride) 10 Meq Capsule.er, 10 MEQ PO DAILY, (Reported) Entered as Reported by: NELIA KING on 09/09/20 1051 Sertraline HCl (Sertraline HCl) 50 Mg Tablet, 50 MG PO HS, (Reported) Entered as Reported by: NELIA KING on 04/22/20 0849 Tiotropium [place] (Spiriva Respimat 2.5MCG/ACTUATION) 4 Gm Mist.inhal, 2 PUFF IH DAILY, (Reported) Entered as Reported by: DASH HOWELL on 06/26/21 1855 [Blood Sugar 360] , 1 CAP PO UD PRN for BLOOD SUGAR MAINTENANCE, (Reported) Entered as Reported by: TAMIKO RASHEED on 08/29/17 1202 [digize oil] , TOP UD PRN for DIGESTIVE DIFFICULTIES, (Reported) Entered as Reported by: JAMEL BARRIENTOS on 03/28/17 0929 Review of Systems Review of Systems Constitutional: see HPI Respiratory: no symptoms reported Cardiovascular: no symptoms reported Gastrointestinal: no symptoms reported Genitourinary: no symptoms reported Musculoskeletal: no symptoms reported Skin: no symptoms reported All Other Systems Reviewed Negative Unless Noted: Yes Past Wjuzxoa-Gtyrui-Miavkl Hx Patient Social History Tobacco Use?: No Use of E-Cig and/or Vaping dev: No Substance use?: No Alcohol Use?: No Immunizations Up To Date Tetanus Booster (TDap): Unknown PED Vaccines UTD: No Influenza Vaccine Up-to-Date: Yes; Up-to-Date First/Initial COVID19 Vaccinat: SEPTEMBER 19, 2020 Second COVID19 Vaccination Joseph: OCTOBER 09, 2020 Third COVID19 Vaccination Date: N/A COVID19 Vaccine Explosive Ordnance Specialist: Evisors 1X PFIZER 1X MODERNA Seasonal Allergies Seasonal Allergies: No Past Medical History Surgeries: Yes Joint Replacement, Nose, Orthopedic Respiratory: Yes COPD Currently Using CPAP: No Currently Using BIPAP: No Cardiac: Yes Atrial Fibrillation, Chronic Edema/Swelling, Coronary Artery Disease, High Cholesterol, Hypertension Neurological: Yes (STOKE LEFT SIDE WEAKNESS) Neuropathy, Stroke 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 Disorders: No 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 Genitourinary: Yes (CHRONIC KIDNEY DISEASE STAGE 3) UTI-Chronic Gastrointestinal: Yes Gastroesophageal Reflux, Chronic Constipation, Hemorrhoids, Ulcer Musculoskeletal: Yes (SPASMS IN L ARM FROM STROKE) Arthritis Endocrine: Yes Diabetes, Insulin dep HEENT: Yes Dysphagia Loss of Vision: Denies Hearing Impairment: Denies Cancer: No Psychosocial: Yes Sleep Difficulties, Anxiety, Depression Integumentary: No Blood Disorders: No Family Medical History Completed stroke 19 FATHER G8 BROTHER Diabetes mellitus G8 BROTHER Hypertension 19 FATHER 19 MOTHER CVA, Diabetes Physical Exam Vital Signs Vital Signs - First Documented 08/28/22 11:20 Temp 37.1 Pulse 90 Resp 24 B/P (MAP) 121/61 (81) Pulse Ox 92 O2 Delivery Room Air Capillary Refill : Less Than 3 Seconds Height, Weight, BMI Height: 5'6.00" Weight: 118lbs. 0.5oz. [id number]; 62.00 BMI Method:Estimated General Appearance: No Apparent Distress, Obese (morbid obesity) Eyes: Bilateral Eye Normal Inspection, Bilateral Eye PERRL, Bilateral Eye EOMI HEENT: PERRL/EOMI Neck: Normal Inspection Respiratory: Other (Diminished throughout but slightly labored breathing no wheezes) Cardiovascular: Regular Rate, Rhythm (80-90's), Normal Peripheral Pulses (2+ radial pulses bilaterally) Gastrointestinal: Non Tender, Soft, Other (Morbid obesity) Genital/Rectal: Normal Genital Exam Extremity: Normal Capillary Refill, Normal Range of Motion (Left-sided hemiplegic), Other (Bilateral lower extremity edema with right lower extremity much more erythematous and warm than the left. She is noted to have a patchy area of erythema in the medial posterior upper left thigh with 2 central ulcerations of approximately 2 to 3 cm this area is also quite warm; no palpable abscess or drainage is appreciated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: Alert, Normal Mood/Affect Skin: Normal Color, Warm/Dry, Other (As above under extreme) Focused Exam Lactate Level 08/28/22 13:27: Lactic Acid Level 1.51 Lactic Acid Level Laboratory Tests Test 08/28/22 13:27 Lactic Acid Level 1.51 MMOL/L (0.50-2.00) Procedures/Interventions Date of ETT Placement: May 04, 2019 Time of ETT Placement: 611 Suture Size: 4-0 Progress/Results/Core Measures Suspected Sepsis SIRS Temperature: Pulse: 90 Respiratory Rate: 24 Laboratory Tests 08/28/22 13:28: White Blood Count 23.2H Blood Pressure 121 /61 Mean: 81 08/28/22 13:27: Lactic Acid Level 1.51 Laboratory Tests 08/28/22 13:28: Creatinine 2.81H, INR Comment 1.1, Platelet Count 199, Total Bilirubin 0.5 Results/Orders Lab Results Laboratory Tests Test 08/28/22 13:27 08/28/22 13:28 08/28/22 14:26 Range/Units Lactic Acid Level 1.51 0.50-2.00 MMOL/L White Blood Count 23.2 H 4.3-11.0 10^3/uL Red Blood Count 4.06 3.80-5.11 10^6/uL Hemoglobin 11.4 L 11.5-16.0 g/dL Hematocrit 36 35-52 % Mean Corpuscular Volume 89 80-99 fL Mean Corpuscular Hemoglobin 28 25-34 pg Mean Corpuscular Hemoglobin Concent 32 32-36 g/dL Red Cell Distribution Width 13.5 10.0-14.5 % Platelet Count 199 130-400 10^3/uL Mean Platelet Volume 9.4 9.0-12.2 fL Immature Granulocyte % (Auto) 1 % Neutrophils (%) (Auto) 89 H 42-75 % Lymphocytes (%) (Auto) 5 L 12-44 % Monocytes (%) (Auto) 5 0-12 % Eosinophils (%) (Auto) 0 0-10 % Basophils (%) (Auto) 0 0-10 % Neutrophils # (Auto) 20.5 H 1.8-7.8 10^3/uL Lymphocytes # (Auto) 1.2 1.0-4.0 10^3/uL Monocytes # (Auto) 1.1 H 0.0-1.0 10^3/uL Eosinophils # (Auto) 0.0 0.0-0.3 10^3/uL Basophils # (Auto) 0.1 0.0-0.1 10^3/uL Immature Granulocyte # (Auto) 0.2 H 0.0-0.1 10^3/uL Neutrophils % (Manual) 90 % Lymphocytes % (Manual) 6 % Monocytes % (Manual) 2 % Band Neutrophils 2 % Toxic Granulation 1+ Polychromasia SLIGHT Prothrombin Time 14.9 H 12.2-14.7 SEC INR Comment 1.1 0.8-1.4 Activated Partial Thromboplast Time 27 24-35 SEC Sodium Level 138 135-145 MMOL/L Potassium Level 4.6 3.6-5.0 MMOL/L Chloride Level 105 98-107 MMOL/L Carbon Dioxide Level 23 21-32 MMOL/L Anion Gap 10 5-14 MMOL/L Blood Urea Nitrogen 31 H 7-18 MG/DL Creatinine 2.81 H 0.60-1.30 MG/DL Estimat Glomerular Filtration Rate 17 BUN/Creatinine Ratio 11 Glucose Level 165 H 70-105 MG/DL Calcium Level 10.4 H 8.5-10.1 MG/DL Corrected Calcium 10.8 H 8.5-10.1 MG/DL Total Bilirubin 0.5 0.1-1.0 MG/DL Aspartate Amino Transf (AST/SGOT) 18 5-34 U/L Alanine Aminotransferase (ALT/SGPT) 21 0-55 U/L Alkaline Phosphatase 114 40-136 U/L Total Protein 7.5 6.4-8.2 GM/DL Albumin 3.5 3.2-4.5 GM/DL Procalcitonin 0.47 H <0.10 NG/ML My Orders Orders - NELLY PEDERSON MD Ed Iv/Invasive Line Start (08/28/22 12:43) Cbc And Manual Diff (08/28/22 12:43) Comprehensive Metabolic Panel (08/28/22 12:43) Ua Culture If Indicated (08/28/22 12:43) Covid 19 Inhouse Test (08/28/22 12:43) Influenza A And B By Pcr (08/28/22 12:43) Isolation Central Supply Req (08/28/22 12:43) Blood Culture (08/28/22 13:00) Sputum Culture (08/28/22 13:00) Urine Culture (08/28/22 13:00) Protime With Inr (08/28/22 13:00) Partial Thromboplastin Time (08/28/22 13:00) Chest 1 View, Ap/Pa Only (08/28/22 13:00) Ed Iv/Invasive Line Start (08/28/22 13:00) Ed Iv/Invasive Line Start (08/28/22 13:00) Vital Signs Adult Sepsis Patie Q15M (08/28/22 13:00) O2 (08/28/22 13:00) Remove Rings In Anticipation O (08/28/22 13:00) Lactic Acid Analyzer (08/28/22 13:00) Procalcitonin (Pct) (08/28/22 13:00) Ns Iv 1000 Ml (Sodium Chloride 0.9%) (08/28/22 15:00) Vancomycin Injection (Vancomycin Injecti (08/28/22 15:00) Cefepime Injection (Maxipime Injection) (08/28/22 15:00) Catheter(Urinary) Insert & Ass 03,15 (08/28/22 15:07) Lidocaine 2% (Urojet) (Xylocaine Urojet) (08/28/22 15:15) Vital Signs/I&O 08/28/22 11:20 Temp 37.1 Pulse 90 Resp 24 B/P (MAP) 121/61 (81) Pulse Ox 92 O2 Delivery Room Air Capillary Refill : Less Than 3 Seconds Blood Pressure Mean: 81 Progress Note : Time: 14:42 Progress Note 71-year-old female with reported fever this morning from a local long-term. Evaluation today includes physical exam with limitation due to size and mobility. On physical exam she is found to have evidence of cellulitis of the right lower extremity and right medial thigh/posterior thigh. Vital signs are stable, she is a little tachycardic with heart rate about 90. Normal blood pressure. Oxygen saturations 92 to 94% on room air. Laboratory evaluation includes sepsis work-up Diagnostic Imaging Diagonstic Imaging: Xray Plain Films/CT/US/NM/MRI: chest Comments [facility]. [place], [place] NAME: [facility] REC#: [id number] PT STATUS: REG ER : 1950 PHYSICIAN: NELLY PEDERSON MD ADMIT DATE: 08/28/22/ER Draft Date of Exam:08/28/22 CHEST 1 VIEW, AP/PA ONLY INDICATION: Hypoxia. Comparison with 02/06/2021. FINDINGS: Right jugular line has been removed. The heart is not enlarged. There is [place] in appearance with bibasilar atelectasis. No consolidated infiltrates are seen. No pneumothorax or pleural effusion. IMPRESSION: The chronic bibasilar atelectasis with Pickwickian appearance. Dictated on workstation # [id number] Dict: 08/28/22 1439 Trans: 08/28/22 1443 CVB [id number] Interpreted by: MADELEINE THAPA MD Electronically signed by: Departure Communication (Admissions) Time/Spoke to Admitting Phy: 15:[address] Tran; would like surg consult Time/Spoke to Consulting Phy: 15:[address] Hardin Impression Primary Impression: Cellulitis Qualified Codes: L03.115 - Cellulitis of right lower limb Additional Impressions: Sepsis Qualified Codes: A41.9 - Sepsis, unspecified organism; R65.20 - Severe sepsis without septic shock; N17.9 - Acute kidney failure, unspecified Diabetes Qualified Codes: E11.622 - Type 2 diabetes mellitus with other skin ulcer; 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 Referrals: HERMINIA YAO MD (PCP/Family) Primary Care Physician NELLY PEDERSON MD Aug 28, 2022 12:22
[2022-08-28 13:30] LABS: BASOPHILS # (AUTO) 0.1 10^3/uL (0.0-0.1); BASOPHILS % (AUTO) 0 % (0-10); EOSINOPHILS % (AUTO) 0 % (0-10); HEMATOCRIT 36 % (35-52); HEMOGLOBIN 11.4 g/dL (11.5-16.0); LYMPHOCYTES # (AUTO) 1.2 10^3/uL (1.0-4.0); LYMPHOCYTES % (AUTO) 5 % (12-44); MEAN CORPUSCULAR HEMOGLOBIN 28 pg (25-34); MEAN CORPUSCULAR HGB CONC 32 g/dL (32-36); MEAN CORPUSCULAR VOLUME 89 fL (80-99); MEAN PLATELET VOLUME 9.4 fL (9.0-12.2); MONOCYTES # (AUTO) 1.1 10^3/uL (0.0-1.0); MONOCYTES % (AUTO) 5 % (0-12); NEUTROPHILS # (AUTO) 20.5 10^3/uL (1.8-7.8); NEUTROPHILS % (AUTO) 89 % (42-75); PLATELET COUNT 199 10^3/uL (130-400); WHITE BLOOD COUNT 23.2 10^3/uL (4.3-11.0)
[2022-08-28 13:48] LABS: ALBUMIN 3.5 GM/DL (3.2-4.5); POTASSIUM 4.6 MMOL/L (3.6-5.0)
[2022-08-28 13:49] LABS: CALCIUM 10.4 MG/DL (8.5-10.1)
[2022-08-28 13:51] LABS: TOTAL PROTEIN 7.5 GM/DL (6.4-8.2)
[2022-08-28 13:52] LABS: BILIRUBIN,TOTAL 0.5 MG/DL (0.1-1.0)
[2022-08-28 13:53] LABS: INR 1.1 (0.8-1.4); PROTHROMBIN TIME PATIENT 14.9 SEC (12.2-14.7)
[2022-08-28 13:54] LABS: CREATININE SERUM 2.81 MG/DL (0.60-1.30)
[2022-08-28 13:59] LABS: BAND NEUTROPHILS 2 %; LYMPHOCYTES % (MANUAL) 6 %; MONOCYTES % (MANUAL) 2 %; NEUTROPHILS % (MANUAL) 90 %; POLYCHROMASIA SLIGHT; TOXIC GRANULATION/VACUOLAZATIO 1+
--- NOTE | 2022-08-28 14:43 | Diagnostic Imaging Report ---
INDICATION: Hypoxia. Comparison with 02/06/2021. FINDINGS: Right jugular line has been removed. The heart is not enlarged. There is [place] in appearance with bibasilar atelectasis. No consolidated infiltrates are seen. No pneumothorax or pleural effusion. IMPRESSION: The chronic bibasilar atelectasis with Pickwickian appearance. Dictated by: Dictated on workstation # [id number]
[2022-08-28] MEDS ORDERED: CEFEPIME INJECTION 1,000 MG in NS (IVPB) 50 ML IV ONE (15:00)
[2022-08-28] MEDS ORDERED: NS IV 1000 ML 1,000 ML IV SCH (15:00)
[2022-08-28] MEDS ORDERED: VANCOMYCIN INJECTION 1,000 MG in NS (IVPB) 250 ML IV ONE (15:00)
[2022-08-28] MEDS ORDERED: LIDOCAINE UROJET 2% GEL 10 ML PKG TOP ONE (15:15)
--- NOTE | 2022-08-28 15:44 | Consultation - Surgery ---
WILDERDIANE 08/28/22 1543: History of Present Illness History of Present Illness Patient Consulted On(nik/time) 08/28/22 15:38 Date Seen by Provider: Aug 28, 2022 Time Seen by Provider: 15:38 History of Present Illness Maren Harris is a 71 yo female with a history of COPD, Afib, CAD, HTN, CKD stage 3, arthritis, T2DM (insulin dependent), who [facility] for a chief complaint of fever (106 deg). She states that she woke up weak and lethargic, with labored breathing, but denies any fever or malaise. She states that she has had multiple episodes of cellulitis, and has had a non- healing ulceration on the R upper inner thigh, which appears to have progressed to cellulitis. Her R lower extremity is warm and erythematous, as well, promp ting concern for cellulitis, however, it is obscured by stasis dermatitis. Maren denies any nausea, vomiting, subjective fever, chills, chest pain, or headache. She states a substantial bowel movement yesterday, and has been urinating without frequency or dysuria. She also endorses a decreased appetite, and an increase in LE edema. She follows with a methods specialist in [place], and her primary care physician is Dr. Durant. Has Aguiar catheter in place, with good urine output. She is accompanied by her [facility] Nurse. Of note, patient is a Faith, and refuses any and all blood products. Allergies and Home Medications Allergies Coded Allergies: sulfamethoxazole (Verified Allergy, Unknown, 10/13/17) trimethoprim (Verified Allergy, Unknown, 10/13/17) Patient Home Medication List Home Medication List Reviewed: Yes Acetaminophen (Acetaminophen) 500 Mg Tablet, 1,000 MG PO Q6H PRN for PAIN-MILD OR TEMPATURE, (Reported) Entered as Reported by: TAMIKO RASHEED on 08/29/17 1202 Acetaminophen (Tylenol Extra Strength) 500 Mg Tablet, 500 MG PO HS, (Reported) Entered as Reported by: NELIA KING on 04/22/20 0849 Aspirin (Aspirin EC) 81 Mg Tablet., 81 MG PO BID, (Reported) Entered as Reported by: NELIA KING on 07/22/20 1134 Atorvastatin Calcium (Atorvastatin Calcium) 40 Mg Tablet, 40 MG PO HS, (Reported) Entered as Reported by: JORGE ASH on 04/20/19 1333 B Complex with Vitamin C (Super B Complex-Vitamin C) 1 Each Tablet, 1 EACH PO DAILY, (Reported) Entered as Reported by: NELIA KING on 04/22/20 0849 Bethanechol Chloride (Urecholine) 10 Mg Tablet, 10 MG PO BID, (Reported) Entered as Reported by: JORGE ASH on 04/20/19 1151 Bisacodyl (Dulcolax) 10 Mg Supp.rect, 10 MG RC DAILY PRN PRN for CONSTIPATION- 1ST LINE, (Reported) Entered as Reported by: DASH HOWELL on 06/26/21 1855 Cholecalciferol (Vitamin D3) (Vitamin D3) 125 Mcg Capsule, 125 MCG PO DAILY, (Reported) Entered as Reported by: DASH HOWELL on 06/26/21 1456 Cinnamon Bark (Cinnamon) 500 Mg Capsule, 1,000 MG PO DAILY, (Reported) Entered as Reported by: AJMEL BARRIENTOS on 03/28/17 0929 Cranberry Extract (Cranberry) 500 Mg Tablet, 1,000 MG PO DAILY, (Reported) Entered as Reported by: JORGE ASH on 10/13/17 1023 Diltiazem HCl (Diltiazem 24Hr Cd) 240 Mg Cap.er.24h, 240 MG PO DAILY, (Reported) Entered as Reported by: DASH HOWELL on 06/26/21 1456 Docusate Sodium (Colace) 100 Mg Capsule, 100 MG PO BID, (Reported) Entered as Reported by: JANELLE DURHAM on 09/15/18 0928 Dronedarone HCl (Multaq) 400 Mg Tablet, 400 MG PO BID, (Reported) Entered as Reported by: JORGE ASH on 06/01/19 1315 Famotidine (Pepcid) 20 Mg Tablet, 20 MG PO DAILY, (Reported) Entered as Reported by: NELIA KING on 04/22/20 0849 Ferrous Sulfate (Iron) 325 Mg Tablet, 325 MG PO DAILY, (Reported) Entered as Reported by: JORGE ASH on 10/13/17 1023 Fluticasone Propionate (Flonase Allergy Relief) 9.9 Ml [place].susp, 2 SPRAY NSEACH DAILY, (Reported) Entered as Reported by: DASH HOWELL on 06/26/21 185 Furosemide (Furosemide) 40 Mg Tablet, 40 MG PO DAILY, (Reported) Entered as Reported by: JORGE SAH on 06/01/19 1315 Furosemide (Furosemide) 20 Mg Tablet, 20 MG PO 1700, (Reported) Entered as Reported by: NELIA KING on 04/22/20 0849 Gabapentin (Neurontin) 300 Mg Capsule, 300 MG PO BID, (Reported) Entered as Reported by: NELIA KING on 07/22/20 1134 Gluc Angulo/Chondro Angulo A/Vit C/Mn (Glucosamine Chondroitin Tab) 1 Each Tablet, 2 TAB PO DAILY, (Reported) Entered as Reported by: JORGE ASH on 10/13/17 1023 Guaifenesin/Dextromethorphan (Guaiasorb Dm Liquid) 118 Ml Liquid, 10 ML PO Q4H PRN for COUGH, (Reported) Entered as Reported by: NELIA KING on 04/22/20 0849 Hydrocodone/Acetaminophen (Hydrocodone-Acetamin 5-325 mg) 1 Each Tablet, 1-2 EACH PO Q6H PRN for PAIN-MODERATE (5-7) Prescribed by: LOU HARDIN on 07/03/21 1045 Hydroxyzine HCl (Hydroxyzine HCl) 10 Mg Tablet, 10 MG PO 0700,1200, (Reported) Entered as Reported by: NELIA KING on 04/22/20 0849 Hydroxyzine Pamoate (Hydroxyzine Pamoate) 25 Mg Capsule, 25 MG PO HS, (Reported) Entered as Reported by: NELIA KING on 04/22/20 0849 Insulin Aspart (Novolog) 100 Unit/1 Ml Susp, 30 UNIT SQ TID, (Reported) Entered as Reported by: NELIA KING on 04/22/20 0849 Insulin Detemir (Levemir Flextouch) 100 Unit/1 Ml Insuln.pen, 28 UNIT SQ BID, (Reported) Entered as Reported by: DASH HOWELL on 06/26/21 1855 Ipratropium/Albuterol Sulfate (Iprat-Albut 0.5-3(2.5) mg/3 ml) 3 Ml Ampul.neb, 3 ML IH Q6H PRN for SHORTNESS OF BREATH, (Reported) Entered as Reported by: DASH HOWELL on 06/26/21 1855 Lidocaine (Lidocare) 1 Each Adh..patch, 1 PATCH TD DAILY, (Reported) Entered as Reported by: JORGE ASH on 07/28/19 1515 Melatonin (Melatonin) 3 Mg Tablet, 3 MG PO HS, (Reported) Entered as Reported by: JORGE ASH on 10/13/17 1023 Metoprolol Succinate (Metoprolol Succinate) 100 Mg Tab.er.24h, 100 MG PO DAILY, (Reported) Entered as Reported by: JANELLE DURHAM on 04/09/16 1445 Miconazole Nitrate (Miconazole Nitrate) 10 Gm Powder, TOP BID, (Reported) Entered as Reported by: JORGE ASH on 04/20/19 1151 Multivitamin with Minerals (Multivitamins with Minerals) 1 Each Tablet, 1 EACH PO TID, (Reported) Entered as Reported by: NELIA KING on 02/04/21 0941 [place]-3/Dha/Epa/Fish Oil ([place] 3 500 Softgel) 1 Each Capsule, 2 CAP PO DAILY, (Reported) Entered as Reported by: JORGE ASH on 04/20/19 1151 Potassium Chloride (Potassium Chloride) 10 Meq Capsule.er, 10 MEQ PO DAILY, (Reported) Entered as Reported by: NELIA KING on 09/09/20 1051 Sertraline HCl (Sertraline HCl) 50 Mg Tablet, 50 MG PO HS, (Reported) Entered as Reported by: NELIA KING on 04/22/20 0849 Tiotropium [place] (Spiriva Respimat 2.5MCG/ACTUATION) 4 Gm Mist.inhal, 2 PUFF IH DAILY, (Reported) Entered as Reported by: DASH HOWELL on 06/26/21 1855 [Blood Sugar 360] , 1 CAP PO UD PRN for BLOOD SUGAR MAINTENANCE, (Reported) Entered as Reported by: TAMIKO RASHEED on 08/29/17 1202 [digize oil] , TOP UD PRN for DIGESTIVE DIFFICULTIES, (Reported) Entered as Reported by: JAMEL BARRIENTOS on 03/28/17 0929 Past Uelkugu-Nakzxu-Upudbx Hx Patient Social History Former Smoker, Quit: Sep 13, 1999 Type Used: Cigarettes 2nd Hand Smoke Exposure: No Recent Hopitalizations: Yes Alcohol Use?: No Have you traveled recently?: No Immunizations Up To Date Tetanus Booster (TDap): Unknown PED Vaccines UTD: No Seasonal Allergies Seasonal Allergies: No Surgeries History of Surgeries: Yes Surgeries: Joint Replacement, Nose, Orthopedic Respiratory History of Respiratory Disorde: Yes Respiratory Disorders: COPD Cardiovascular History of Cardiac Disorders: Yes Cardiac Disorders: Atrial Fibrillation, Chronic Edema/Swelling, Coronary Artery Disease, High Cholesterol, Hypertension Neurological History of Neurological Disord: Yes (STOKE LEFT SIDE WEAKNESS) Neurological Disorders: Neuropathy, Stroke 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 System Hx 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 Disorders: No MANAGER MECHANICAL MAINTENANCE History: Menopausal Genitourinary History of Genitourinary Disor: Yes (CHRONIC KIDNEY DISEASE STAGE 3) Genitourinary Disorders: UTI-Chronic Gastrointestinal History of Gastrointestinal Di: Yes Gastrointestinal Disorders: Gastroesophageal Reflux, Chronic Constipation, Hemorrhoids, Ulcer Musculoskeletal History of Musculoskeletal Dis: Yes (SPASMS IN L ARM FROM STROKE) Musculoskeletal Disorders: Arthritis Endocrine History of Endocrine Disorders: Yes Endocrine Disorders: Diabetes, Insulin dep HEENT History of HEENT Disorders: Yes HEENT Disorders: Dysphagia Loss of Vision: Denies Hearing Impairment: Denies Cancer History of Cancer: No Psychosocial History of Psychiatric Problem: Yes Behavioral Health Disorders: Sleep Difficulties, Anxiety, Depression Integumentary History of Skin or Integumenta: No Blood Transfusions History of Blood Disorders: No Family Medical History Significant Family History: CVA, Diabetes Family Medial History: Completed stroke 19 FATHER G8 BROTHER Diabetes mellitus G8 BROTHER Hypertension 19 FATHER 19 MOTHER Review of Systems-General Constitutional: No chills, No diaphoresis; fever; No malaise; weight gain (2/2 substantial LE edema) EENTM: No hearing loss, No blurred vision Respiratory: No cough; dyspnea on exertion, orthopnea, short of breath Gastrointestinal: No abdominal pain, No constipation, No diarrhea; loss of appetite; No nausea, No vomiting Genitourinary: No decreased output, No dysuria, No frequency Musculoskeletal: joint pain; No muscle pain Skin: change in color (Cellulitis evident in R upper inner thigh, and anterior R LE), rash (Significant Bilat stasis dermatitis) Psychiatric/Neurological: Anxiety, Depressed Physical Exam-General Problems Physical Exam Vital Signs Vital Signs - First Documented 08/28/22 11:20 Temp 37.1 Pulse 90 Resp 24 B/P (MAP) 121/61 (81) Pulse Ox 92 O2 Delivery Room Air Capillary Refill : Less Than 3 Seconds General Appearance: WD/WN, no apparent distress Eyes: Bilateral Eye Normal Inspection, Bilateral Eye PERRL HEENT: PERRL/EOMI, normal ENT inspection Neck: supple, normal inspection Respiratory: chest non-tender, decreased breath sounds, accessory muscle use (Upon deep inspiration), crackles Cardiovascular: normal peripheral pulses, regular rate, rhythm, no gallop, no JVD, no murmur Peripheral Pulses: 2+ Radial Pulses (R), 2+ Radial Pulses (L) Gastrointestinal: normal bowel sounds, non tender, soft, no organomegaly, no pulsatile mass Rectal: deferred Extremities: normal inspection, normal capillary refill, pedal edema, swelling (Significant Bilat 2+ pitting edema, venous insufficency ), other (Has L-sided hemiplegia 2/2 stroke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: pond sawyer II-XII nml as tested, no motor/sensory deficits, alert, normal mood/affect, oriented x 3 Skin: warm/dry, other (Ulceration R upper inner thigh, cellulitis in r upper thigh and RLE), rash (Stasis dermatitis bilat) Lymphatic: no adenopathy Data Review Labs Laboratory Tests 08/28/22 13:27: Lactic Acid Level 1.51 08/28/22 13:28: White Blood Count 23.2H, Red Blood Count 4.06, Hemoglobin 11.4L, Hematocrit 36, Mean Corpuscular Volume 89, Mean Corpuscular Hemoglobin 28, Mean Corpuscular Hemoglobin Concent 32, Red Cell Distribution Width 13.5, Platelet Count 199, Mean Platelet Volume 9.4, Immature Granulocyte % (Auto) 1, Neutrophils (%) (Auto ) 89H, Lymphocytes (%) (Auto) 5L, Monocytes (%) (Auto) 5, Eosinophils (%) (Auto) 0, Basophils (%) (Auto) 0, Neutrophils # (Auto) 20.5H, Lymphocytes # (Auto) 1.2, Monocytes # (Auto) 1.1H, Eosinophils # (Auto) 0.0, Basophils # (Auto) 0.1, Immature Granulocyte # (Auto) 0.2H, Neutrophils % (Manual) 90, Lymphocytes % (Manual) 6, Monocytes % (Manual) 2, Band Neutrophils 2, Toxic Granulation 1+, Polychromasia SLIGHT, Prothrombin Time 14.9H, INR Comment 1.1, Activated Partial Thromboplast Time 27, Sodium Level 138, Potassium Level 4.6, Chloride Level 105, Carbon Dioxide Level 23, Anion Gap 10, Blood Urea Nitrogen 31H, Creatinine 2.81H , Estimat Glomerular Filtration Rate 17, BUN/Creatinine Ratio 11, Glucose Level 165H, Calcium Level 10.4H, Corrected Calcium 10.8H, Total Bilirubin 0.5, Aspartate Amino Transf (AST/SGOT) 18, Alanine Aminotransferase (ALT/SGPT) 21, Alkaline Phosphatase 114, Total Protein 7.5, Albumin 3.5, Procalcitonin 0.47H 08/28/22 14:26: Influenza Type A (RT-PCR) Not Detected, Influenza Type B (RT-PCR) Not Detected, SARS-CoV-2 RNA (RT-PCR) Not Detected Radiology Date of Exam:08/28/22 CHEST 1 VIEW, AP/PA ONLY INDICATION: Hypoxia. Comparison with 02/06/2021. FINDINGS: Right jugular line has been removed. The heart is not enlarged. There is Quay in appearance with bibasilar atelectasis. No consolidated infiltrates are seen. No pneumothorax or pleural effusion. IMPRESSION: The chronic bibasilar atelectasis with Pickwickian appearance Assessment/Plan Assessment/Plan Assessment/Plan Sepsis Cellulitis of R lower limb Presently on cefepime and vancomycin Receiving fluids Does not appear to have drainable abcess associated with the cellulitis in upper thigh and RLE T2DM, Insulin dependent Non-healing skin ulcer on R upper inner thigh => does not appear to require debriedment, as it appears clean and without purulence Acute on chronic COPD exacerbation Hypoxia On room air, satting around 92-93% at rest Significant exertional and conversational dyspnea Accessory muscle use upon deep inspiration during auscultation Consider evaluation for supplemental oxygen AFIB CAD Follows with a methods specialist in [place] Consider cardiology consult Takes aspirin Has significant Bilat LE swelling with evidence of venous insufficiency Consider BNP, possible Echo CKD, stage III Receiving fluids HTN Hypercholesterolemia History of stroke General debility Left-sided hemiplegia following stroke Presently bed-bound Consider PT/OT LOU HARDIN DO 08/28/22 2020: History of Present Illness History of Present Illness History of Present Illness 71 year old female with fever, weak, right leg pain. Having some shortness of breath. Found to have right lower extremity erythema that is warm to touch. Moderate discomfort and more swelling. Had fever at facility. Also wound superficial to right inner thigh. WBC elevated. Allergies and Home Medications Allergies Coded Allergies: sulfamethoxazole (Verified Allergy, Unknown, 10/13/17) trimethoprim (Verified Allergy, Unknown, 10/13/17) Patient Home Medication List Home Medication List Reviewed: Yes Acetaminophen (Acetaminophen) 500 Mg Tablet, 1,000 MG PO Q6H PRN for PAIN-MILD OR TEMPATURE, (Reported) Entered as Reported by: TAMIKO RASHEED on 08/29/17 1202 Acetaminophen (Tylenol Extra Strength) 500 Mg Tablet, 500 MG PO HS, (Reported) Entered as Reported by: NELIA KING on 04/22/20 0849 Aspirin (Aspirin EC) 81 Mg Tablet.dr, 81 MG PO BID, (Reported) Entered as Reported by: NELIA KING on 07/22/20 1134 Atorvastatin Calcium (Atorvastatin Calcium) 40 Mg Tablet, 40 MG PO HS, (Reported) Entered as Reported by: JORGE ASH on 04/20/19 1333 B Complex with Vitamin C (Super B Complex-Vitamin C) 1 Each Tablet, 1 EACH PO DAILY, (Reported) Entered as Reported by: NELIA KING on 04/22/20 0849 Bethanechol Chloride (Urecholine) 10 Mg Tablet, 10 MG PO BID, (Reported) Entered as Reported by: JORGE ASH on 04/20/19 1151 Bisacodyl (Dulcolax) 10 Mg Supp.rect, 10 MG RC DAILY PRN PRN for CONSTIPATION- 1ST LINE, (Reported) Entered as Reported by: DASH HOWELL on 06/26/21 1855 Cholecalciferol (Vitamin D3) (Vitamin D3) 125 Mcg Capsule, 125 MCG PO DAILY, (Reported) Entered as Reported by: DASH HOWELL on 06/26/21 1456 Cinnamon Bark (Cinnamon) 500 Mg Capsule, 1,000 MG PO DAILY, (Reported) Entered as Reported by: JAMEL BARRIENTOS on 03/28/17 0929 Cranberry Extract (Cranberry) 500 Mg Tablet, 1,000 MG PO DAILY, (Reported) Entered as Reported by: JORGE ASH on 10/13/17 1023 Diltiazem HCl (Diltiazem 24Hr Cd) 240 Mg Cap.er.24h, 240 MG PO DAILY, (Reported) Entered as Reported by: DASH HOWELL on 06/26/21 1456 Docusate Sodium (Colace) 100 Mg Capsule, 100 MG PO BID, (Reported) Entered as Reported by: JANELLE DURHAM on 09/15/18 0928 Dronedarone HCl (Multaq) 400 Mg Tablet, 400 MG PO BID, (Reported) Entered as Reported by: JORGE ASH on 06/01/19 1315 Famotidine (Pepcid) 20 Mg Tablet, 20 MG PO DAILY, (Reported) Entered as Reported by: NELIA KING on 04/22/20 0849 Ferrous Sulfate (Iron) 325 Mg Tablet, 325 MG PO DAILY, (Reported) Entered as Reported by: JORGE ASH on 10/13/17 1023 Fluticasone Propionate (Flonase Allergy Relief) 9.9 Ml [place].susp, 2 SPRAY NSEACH DAILY, (Reported) Entered as Reported by: DASH HOWELL on 06/26/21 1855 Furosemide (Furosemide) 40 Mg Tablet, 40 MG PO DAILY, (Reported) Entered as Reported by: JORGE ASH on 06/01/19 1315 Furosemide (Furosemide) 20 Mg Tablet, 20 MG PO 1700, (Reported) Entered as Reported by: NELIA KING on 04/22/20 0849 Gabapentin (Neurontin) 300 Mg Capsule, 300 MG PO BID, (Reported) Entered as Reported by: NELIA KING on 07/22/20 1134 Gluc Angulo/Chondro Angulo A/Vit C/Mn (Glucosamine Chondroitin Tab) 1 Each Tablet, 2 TAB PO DAILY, (Reported) Entered as Reported by: JORGE ASH on 10/13/17 1023 Guaifenesin/Dextromethorphan (Guaiasorb Dm Liquid) 118 Ml Liquid, 10 ML PO Q4H PRN for COUGH, (Reported) Entered as Reported by: NELIA KING on 04/22/20 0849 Hydrocodone/Acetaminophen (Hydrocodone-Acetamin 5-325 mg) 1 Each Tablet, 1-2 EACH PO Q6H PRN for PAIN-MODERATE (5-7) Prescribed by: LOU HARDIN on 07/03/21 1045 Hydroxyzine HCl (Hydroxyzine HCl) 10 Mg Tablet, 10 MG PO 0700,1200, (Reported) Entered as Reported by: NELIA KING on 04/22/20 0849 Hydroxyzine Pamoate (Hydroxyzine Pamoate) 25 Mg Capsule, 25 MG PO HS, (Reported) Entered as Reported by: NELIA KING on 04/22/20 0849 Insulin Aspart (Novolog) 100 Unit/1 Ml Susp, 30 UNIT SQ TID, (Reported) Entered as Reported by: NELIA KING on 04/22/20 0849 Insulin Detemir (Levemir Flextouch) 100 Unit/1 Ml Insuln.pen, 28 UNIT SQ BID, (Reported) Entered as Reported by: DASH HOWELL on 06/26/21 185 Ipratropium/Albuterol Sulfate (Iprat-Albut 0.5-3(2.5) mg/3 ml) 3 Ml Ampul.neb, 3 ML IH Q6H PRN for SHORTNESS OF BREATH, (Reported) Entered as Reported by: DASH HOWELL on 06/26/21 185 Lidocaine (Lidocare) 1 Each Adh..patch, 1 PATCH TD DAILY, (Reported) Entered as Reported by: JORGE ASH on 07/28/19 1515 Melatonin (Melatonin) 3 Mg Tablet, 3 MG PO HS, (Reported) Entered as Reported by: JORGE ASH on 10/13/17 1023 Metoprolol Succinate (Metoprolol Succinate) 100 Mg Tab.er.24h, 100 MG PO DAILY, (Reported) Entered as Reported by: JANELLE DURHAM on 04/09/16 1445 Miconazole Nitrate (Miconazole Nitrate) 10 Gm Powder, TOP BID, (Reported) Entered as Reported by: JORGE ASH on 04/20/19 1151 Multivitamin with Minerals (Multivitamins with Minerals) 1 Each Tablet, 1 EACH PO TID, (Reported) Entered as Reported by: NELIA KING on 02/04/21 0941 [place]-3/Dha/Epa/Fish Oil ([place] 3 500 Softgel) 1 Each Capsule, 2 CAP PO DAILY, (Reported) Entered as Reported by: JORGE ASH on 04/20/19 1151 Potassium Chloride (Potassium Chloride) 10 Meq Capsule.er, 10 MEQ PO DAILY, (Reported) Entered as Reported by: NELIA KING on 09/09/20 1051 Sertraline HCl (Sertraline HCl) 50 Mg Tablet, 50 MG PO HS, (Reported) Entered as Reported by: NELIA KING on 04/22/20 0849 Tiotropium [place] (Spiriva Respimat 2.5MCG/ACTUATION) 4 Gm Mist.inhal, 2 PUFF IH DAILY, (Reported) Entered as Reported by: DASH HOWELL on 06/26/21 1855 [Blood Sugar 360] , 1 CAP PO UD PRN for BLOOD SUGAR MAINTENANCE, (Reported) Entered as Reported by: TAMIKO RASHEED on 08/29/17 1202 [digize oil] , TOP UD PRN for DIGESTIVE DIFFICULTIES, (Reported) Entered as Reported by: JAMEL BARRIENTOS on 03/28/17 0929 Past Kyuckta-Pyhaxa-Zlqwav Hx Reviewed Nursing Assessment Reviewed/Agree w Nursing PMH: Yes Family Medical History Significant Family History: No Pertinent Family Hx Family Medial History: Completed stroke 19 FATHER G8 BROTHER Diabetes mellitus G8 BROTHER Hypertension 19 FATHER 19 MOTHER Review of Systems-General Constitutional: No chills; fever; No malaise EENTM: No blurred vision, No double vision Respiratory: No cough; dyspnea on exertion, short of breath Gastrointestinal: No abdominal pain, No nausea, No vomiting Genitourinary: No decreased output, No dysuria Musculoskeletal: No joint pain, No muscle pain Skin: change in color (Cellulitis evident in R upper inner thigh, and anterior R LE), rash (Significant Bilat stasis dermatitis) Psychiatric/Neurological: Denies Anxiety, Denies Depressed, Denies Emotional Problems All Other Systems Reviewed Negative Unless Noted: Yes (Negative excepted noted.) Physical Exam-General Problems Physical Exam General Appearance: no apparent distress, obese HEENT: PERRL/EOMI, normal ENT inspection Neck: supple, normal inspection Respiratory: chest non-tender, no respiratory distress, no accessory muscle use Cardiovascular: regular rate, rhythm, no JVD Gastrointestinal: non tender, soft Rectal: deferred Back: no CVA tenderness, no vertebral tenderness Extremities: swelling (Significant Bilat 2+ pitting edema, venous insufficency, right inner thigh superficial wounds), other (Has L-sided hemiplegia 2/2 stroke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: alert, normal mood/affect, oriented x 3 Skin: other (Ulcerations R upper inner thigh, cellulitis in r upper thigh and RLE warmth), rash (Stasis dermatitis bilat) Lymphatic: no adenopathy Assessment/Plan Assessment/Plan Assessment/Plan Sepsis cellulitis right lower extremity superficial wound right inner thigh DM hx of stroke continue abx glucose control local wound care, not needing debridement will follow Supervisory-Addendum Brief Verification & Attestation Participated in pt care: history, MDM, physical Personally performed: exam, history, MDM, supervision of care Care discussed with: Medical Student Procedures: n/a Results interpretation: Verified all documentation Verification and Attestation of Medical Student E/M Service A medical student performed and documented this service in my presence. I reviewed and verified all information documented by the medical student and made modifications to such information, when appropriate. I personally performed the physical exam and medical decision making. Lou Hardni, Aug 28, 2022,20:30 DIANE HDZ Aug 28, 2022 15:43 LOU HARDIN DO Aug 28, 2022 20:20
[2022-08-28 15:55] LABS: BILIRUBIN,URINE NEGATIVE (NEGATIVE); CLARITY,URINE CLOUDY; COLOR,URINE YELLOW; GLUCOSE, URINE (UA) 3+ (NEGATIVE); KETONES,URINE NEGATIVE (NEGATIVE); LEUKOCYTE ESTERASE ,URINE 2+ (NEGATIVE); NITRITE,URINE POSITIVE (NEGATIVE); PROTEIN,URINE 2+ (NEGATIVE)
[2022-08-28 16:25] LABS: BACTERIA,URINE MODERATE /HPF; SQUAMOUS EPITHELIAL CELL,UR RARE /HPF; WBC,URINE TNTC /HPF; YEAST,URINE MODERATE /HPF
[2022-08-28 16:50] VITALS: BP 142/61
[2022-08-28] MEDS ORDERED: HYDROmorphone 2 MG/ML VIAL (DILAUDID) IV PRN (17:15)
[2022-08-28] MEDS ORDERED: LACTULOSE SYRUP 10GM/15ML (ENULOSE) 30ML UDC PO PRN (17:15)
[2022-08-28] MEDS ORDERED: BISACODYL 10 MG SUPP (DULCOLAX) PR PRN (17:15)
[2022-08-28] MEDS ORDERED: ONDANSETRON 4 MG (ZOFRAN) ORAL DISSOLVE TAB PO PRN (17:15)
[2022-08-28] MEDS ORDERED: CALCIUM CARBONATE 500 MG (TUMS) TAB.CHEW PO PRN (17:15)
[2022-08-28] MEDS ORDERED: diphenhydrAMINE 50 MG/ML INJ (BENADRYL) IVP PRN (17:15)
[2022-08-28] MEDS ORDERED: VANCOMYCIN INJECTION 0.1 MG in NS (IVPB) 250 ML IV SCH (17:15)
[2022-08-28] MEDS ORDERED: MELATONIN 3 MG TABLET PO PRN (17:15)
[2022-08-28] MEDS ORDERED: ONDANSETRON 4 MG/2 ML (SDV) Z0FRAN IV PRN (17:15)
[2022-08-28] MEDS ORDERED: MILK OF MAGNESIA 400 MG/5 ML 30 ML UDC PO PRN (17:15)
[2022-08-28] MEDS ORDERED: polyethylene glycoL POWDER 17 GM (MIRALAX) PACK PO PRN (17:15)
[2022-08-28] MEDS ORDERED: ANTACID SUSP 30 ML UDC (MYLANTA) PO PRN (17:15)
[2022-08-28] MEDS ORDERED: diphenhydrAMINE 25 MG TAB (BENADRYL) PO PRN (17:15)
[2022-08-28] MEDS: NS IV 1000 ML 1,000 ML IV SCH (17:49)
[2022-08-28] MEDS: ENOXAPARIN INJECTION 30 MG/0.3 ML SYR SC SCH (17:49)
[2022-08-28] MEDS ORDERED: VANCOMYCIN 1 GM/NS 250 ML IVPB IV NR ×2 (18:00)
[2022-08-28 19:57] VITALS: BP 166/73
[2022-08-28] MEDS: SENNOSIDES 8.6 MG (SENOKOT) TAB PO SCH (20:40)
[2022-08-28] MEDS: DOCUSATE SODIUM 100 MG (COLACE) CAP PO SCH (20:40)
[2022-08-28] MEDS: inSUlin ASPART (NovoLOG) 1 UNIT/0.01 ML (CHARGE PER UNIT) SC SCH (20:46)
[2022-08-28] MEDS ORDERED: RT-ALBUTEROL/IPRATROPIUM 3 ML (DUONEB) VIAL INH SCH (22:00)
[2022-08-29] VITALS (7 sets, daily range): BP systolic 127–158; BP diastolic 61–74
[2022-08-29] MEDS: RT-ALBUTEROL/IPRATROPIUM 3 ML (DUONEB) VIAL INH SCH ×4 (03:24→19:54)
[2022-08-29] MEDS: CEFEPIME INJECTION 1,000 MG in NS (IVPB) 50 ML IV SCH ×2 (04:45→16:27)
[2022-08-29] MEDS: NS IV 1000 ML 1,000 ML IV SCH (04:46)
[2022-08-29] MEDS: inSUlin ASPART (NovoLOG) 1 UNIT/0.01 ML (CHARGE PER UNIT) SC SCH ×4 (04:50→20:34)
[2022-08-29 06:22] LABS: BASOPHILS % (AUTO) 0 % (0-10); EOSINOPHILS # (AUTO) 0.1 10^3/uL (0.0-0.3); EOSINOPHILS % (AUTO) 1 % (0-10); HEMATOCRIT 33 % (35-52); LYMPHOCYTES # (AUTO) 1.4 10^3/uL (1.0-4.0); LYMPHOCYTES % (AUTO) 11 % (12-44); MEAN CORPUSCULAR HEMOGLOBIN 28 pg (25-34); MEAN CORPUSCULAR HGB CONC 30 g/dL (32-36); MEAN CORPUSCULAR VOLUME 91 fL (80-99); MEAN PLATELET VOLUME 9.7 fL (9.0-12.2); MONOCYTES % (AUTO) 8 % (0-12); NEUTROPHILS # (AUTO) 9.8 10^3/uL (1.8-7.8); NEUTROPHILS % (AUTO) 79 % (42-75); PLATELET COUNT 167 10^3/uL (130-400); WHITE BLOOD COUNT 12.4 10^3/uL (4.3-11.0)
--- NOTE | 2022-08-29 06:29 | History & Physical-Hospitalist ---
History of Present Illness HPI/Chief Complaint Chief complaint: Right leg cellulitis HPI: This is a 71-year-old female known to this provider who has a past medical history of CVA with chronic debility and bedridden status who presents with right leg pain found to have cellulitis failed oral antibiotics so placed inpatient for IV antibiotics broad-spectrum. Currently she is already asking to go home as she usually does every admission. Aguiar catheter was initiated. Patient having no new issues. Right leg much improved redness Source: patient, old records Exam Limitations: no limitations Date Seen 08/29/22 Time Seen by a Provider: 11:00 Attending Physician Andrea Durant MD PCP Admitting Physician: Fadumo Tran DO Attending Physician: Fadumo Tran DO Referring Physician Date of Admission Aug 28, 2022 at 15:14 Home Medications & Allergies Home Medications Reviewed patient Home Medication Reconciliation performed by pharmacy medication reconciliations metal wire technician and/or nursing. Patients Allergies have been reviewed. Allergies Allergies Coded Allergies sulfamethoxazole (Verified Allergy, Unknown, 10/13/17) trimethoprim (Verified Allergy, Unknown, 10/13/17) Past Gufbrng-Yzxbty-Loagmo Hx Patient Social History Marrital Status: single Employed/Student: retired Tobacco Use?: No Smoking Status: Former Smoker Smokeless Tobacco Frequency: Never a User Use of E-Cig and/or Vaping dev: No Substance use?: No Alcohol Use?: No Pt feels they are or have been: No Immunizations Up To Date First/Initial COVID19 Vaccinat: SEPTEMBER 19, 2020 Second COVID19 Vaccination Joseph: OCTOBER 09, 2020 Tetanus Booster (TDap): Unknown Hepatitis A: No Hepatitis B: No PED Vaccines UTD: No Seasonal Allergies Seasonal Allergies: No Current Status status: No status: No Advance Directives: Yes Advance Directive Location: [facility] Communicates: Verbally Primary Language: Northern Irish Preferred Spoken Language: Northern Irish Is interpretation needed?: No Implanted or Applied Medical D: None Past Medical History Surgeries: Joint Replacement, Nose, Orthopedic COPD Currently Using CPAP: No Currently Using BIPAP: No Atrial Fibrillation, Chronic Edema/Swelling, Coronary Artery Disease, High Cholesterol, Hypertension Neuropathy, 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 History: Menopausal UTI-Chronic Gastroesophageal Reflux, Chronic Constipation, Hemorrhoids, Ulcer Arthritis Diabetes, Insulin dep Dysphagia Loss of Vision: Denies Hearing Impairment: Denies Sleep Difficulties, Anxiety, Depression Blood Disorders: No PMHx: IDDM Anemia HTN Depression Chronic Atrial Fibrillation 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 Family Medical History Completed stroke 19 FATHER G8 BROTHER Diabetes mellitus G8 BROTHER Hypertension 19 FATHER 19 MOTHER No Pertinent Family Hx Review of Systems Constitutional: see HPI EENTM: no symptoms reported Respiratory: no symptoms reported Cardiovascular: no symptoms reported Gastrointestinal: no symptoms reported Genitourinary: no symptoms reported Musculoskeletal: back pain, joint pain Skin: see HPI Psychiatric/Neurological: Depressed All Other Systems Reviewed Negative Unless Noted: Yes Physical Exam Physical Exam Vital Signs Vital Signs - First Documented 08/28/22 08/28/22 08/28/22 11:20 19:53 19:57 Temp 37.1 Pulse 90 Resp 24 B/P (MAP) 121/61 (81) Pulse Ox 92 O2 Delivery Room Air O2 Flow Rate 2.00 FiO2 21 Capillary Refill : Less Than 3 Seconds Height, Weight, BMI Height: 5'6.00" Weight: 118lbs. 0.5oz. 53.086407kh; 47.68 BMI Method:Estimated General Appearance: No Apparent Distress, Anxious, Chronically ill, Obese Eyes: Right Eye Normal Inspection, Right Eye PERRL HEENT: PERRL/EOMI, Normal ENT Inspection, Pharynx Normal, Moist Mucous Membranes Neck: Full Range of Motion, Normal Inspection, Non Tender Respiratory: Chest Non Tender, Lungs Clear, Normal Breath Sounds, No Accessory Muscle Use, No Respiratory Distress Cardiovascular: Regular Rate, Rhythm, No Edema, No Gallop, No JVD, No Murmur, Normal Peripheral Pulses Gastrointestinal: Normal Bowel Sounds, No Organomegaly, No Pulsatile Mass, Non Tender, Soft Back: Normal Inspection, No CVA Tenderness, No Vertebral Tenderness Extremity: Normal Capillary Refill, Normal Inspection, Normal Range of Motion, Non Tender, No Calf Tenderness, No Pedal Edema Neurologic/Psychiatric: Alert, Oriented x3, No Motor/Sensory Deficits, Normal Mood/Affect Skin: Normal Color, Warm/Dry, Rash (Right leg with erythema and tenderness to palpation and hot to touch) Lymphatic: No Adenopathy Results Results/Procedures Labs Laboratory Tests 08/28/22 13:28 08/29/22 05:31 Patient resulted labs reviewed. Assessment/Plan Admission Diagnosis Assessment: Right leg cellulitis failed oral antibiotics History of CVA Hypertension Diabetes Hyperlipidemia Chronic debility Plan: IV antibiotics General surgery consult Home meds restarted Admission Status: Inpatient Order (span 2 midnights) Reason for Inpatient Admission: Cellulitis failed oral antibiotics Diagnosis/Problems Diagnosis/Problems (1) Cellulitis of right lower extremity Status: Acute (2) Sepsis Status: Resolved Qualifiers: Sepsis type: sepsis due to unspecified organism Sepsis acute organ dysfunction status: with acute organ dysfunction Severe sepsis acute organ dysfunction type: acute renal failure Acute renal failure type: unspecified Severe sepsis shock status: without septic shock Qualified Codes: A41.9 - Sepsis, unspecified organism; R65.20 - Severe sepsis without septic shock; N17.9 - Acute kidney failure, unspecified Resolution Date/Time: 02/05/21 @ 13:42 (3) Bedbound Status: Chronic (4) Chronic kidney disease Status: Chronic (5) History of CVA (cerebrovascular accident) Status: Chronic (6) ANKIT (obstructive sleep apnea) Status: Chronic (7) Paroxysmal atrial fibrillation Status: Chronic Clinical Quality Measures DVT/VTE Risk/Contraindication: Contraindications-Mechi: Patient refusal of tx FADUMO TRAN DO Aug 29, 2022 06:29
[2022-08-29 06:48] LABS: POTASSIUM 4.4 MMOL/L (3.6-5.0)
[2022-08-29 06:49] LABS: CALCIUM 9.4 MG/DL (8.5-10.1)
[2022-08-29 06:50] LABS: TOTAL PROTEIN 6.6 GM/DL (6.4-8.2)
[2022-08-29 06:52] LABS: BILIRUBIN,TOTAL 0.3 MG/DL (0.1-1.0)
[2022-08-29 06:54] LABS: CREATININE SERUM 2.36 MG/DL (0.60-1.30)
[2022-08-29] MEDS: SENNOSIDES 8.6 MG (SENOKOT) TAB PO SCH ×2 (08:37→19:32)
[2022-08-29] MEDS: DOCUSATE SODIUM 100 MG (COLACE) CAP PO SCH ×2 (08:37→19:31)
--- NOTE | 2022-08-29 08:54 | Progress Note - Surgery ---
DIANE HDZ 08/29/22 0854: Subjective Date Seen by a Provider: Aug 29, 2022 Time Seen by a Provider: 08:48 Subjective/Events-last exam Upon follow-up for cellulitis of RLE and R upper inner thigh cellulitis and ulcerations, Maren is laying supine in bed, with 3L oxygen by [place]. She states that she has no complaints, denies nausea, vomiting, or subjective fever. RLE cellulitis appears unchanged, but has been outlined. As stated previously, chronic venous insufficiency does obscure cellulitis, but is erythematous and warm to touch. Of note, her WBC has decreased from 23.2 to 12.4 over the past day. Urine output of 450 ml today. She is pleasant and conversational. Review of Systems General: No Chills, No Night Sweats HEENT: No Head Aches, No Visual Changes Pulmonary: Dyspnea (exertional) Cardiovascular: Orthopnea; No: Chest Pain, Palpitations Gastrointestinal: No: Nausea, Vomiting, Abdominal Pain Genitourinary: No Dysuria, No Frequency Musculoskeletal: No: neck pain, shoulder pain Neurological: Weakness, Numbness, Incoordination; No: Change in speech, Confusion Focused Exam Lactate Level 08/28/22 13:27: Lactic Acid Level 1.51 Respiratory: Chest Non Tender, No Accessory Muscle Use, No Respiratory Distress, Crackles (Expiratory), Decreased Breath Sounds Cardiovascular: Regular Rate, Rhythm, No Gallop, No JVD, No Murmur Capillary Refill: Less Than 3 Seconds Peripheral Pulses: 2+ Radial Pulses (L) Skin: normal color, warm/dry, ulcerations (R upper inner thigh ulcerations, sha llow and without purulence or abcess) Objective Exam Vital Signs Date Time Temp Pulse Resp B/P (MAP) Pulse Ox O2 Delivery O2 Flow Rate FiO2 08/29/22 07:46 36.8 85 18 142/67 (92) 94 Nasal Cannula 3.00 08/29/22 07:00 82 08/29/22 03:51 36.7 78 20 146/74 (98) 92 Nasal Cannula 2.00 08/29/22 03:24 90 Nasal Cannula 3.00 08/29/22 01:00 83 08/29/22 00:00 37.1 86 20 133/68 (89) 94 Nasal Cannula 2.00 08/28/22 21:06 91 Nasal Cannula 2.00 08/28/22 20:44 94 Nasal Cannula 2.00 08/28/22 19:57 37.3 80 20 166/73 (104) 92 Nasal Cannula 2.00 08/28/22 19:53 89 93 21 08/28/22 19:00 82 08/28/22 18:40 89 08/28/22 17:00 Room Air 08/28/22 16:50 37.4 74 20 142/61 (88) 93 Room Air 08/28/22 16:30 36.4 74 16 136/74 95 Room Air 08/28/22 11:30 95 Room Air 08/28/22 11:20 37.1 90 24 121/61 (81) 92 Room Air I & O 08/29/22 07:00 Intake Total 2950 ml Output Total 1150 ml Balance 1800 ml Capillary Refill : Less Than 3 Seconds General Appearance: No Apparent Distress, WD/WN, Chronically ill, Obese (morbid obesity) HEENT: PERRL/EOMI, TMs Normal Neck: Normal Inspection, Supple Respiratory: Chest Non Tender, No Accessory Muscle Use, No Respiratory Distress, Crackles, Decreased Breath Sounds, Other (Diminished throughout but slightly labored breathing no wheezes) Cardiovascular: Regular Rate, Rhythm (80-90's), Normal Peripheral Pulses (2+ radial pulses bilaterally) Peripheral Pulses: 2+ Radial Pulses (R), 2+ Radial Pulses (L) Gastrointestinal: non tender, soft Extremity: Normal Capillary Refill, Normal Range of Motion (Left-sided hemiplegic), Other (Bilateral lower extremity edema with right lower extremity much more erythematous and warm than the left. She is noted to have a patchy area of erythema in the medial posterior upper left thigh with 2 central ulcerations of approximately 2 to 3 cm this area is also quite warm; no palpable abscess or drainage is appreciated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: Alert, Normal Mood/Affect Skin: Normal Color, Warm/Dry, Other (As above ) Results Lab Laboratory Tests 08/28/22 13:27: Lactic Acid Level 1.51 08/28/22 13:28: White Blood Count 23.2H, Red Blood Count 4.06, Hemoglobin 11.4L, Hematocrit 36, Mean Corpuscular Volume 89, Mean Corpuscular Hemoglobin 28, Mean Corpuscular Hemoglobin Concent 32, Red Cell Distribution Width 13.5, Platelet Count 199, Mean Platelet Volume 9.4, Immature Granulocyte % (Auto) 1, Neutrophils (%) (Auto) 89H, Lymphocytes (%) (Auto) 5L, Monocytes (%) (Auto) 5, Eosinophils (%) (Auto) 0, Basophils (%) (Auto) 0, Neutrophils # (Auto) 20.5H, Lymphocytes # (Auto) 1.2, Monocytes # (Auto) 1.1H, Eosinophils # (Auto) 0.0, Basophils # (Auto) 0.1, Immature Granulocyte # (Auto) 0.2H, Neutrophils % (Manual) 90, Lymphocytes % (Manual) 6, Monocytes % (Manual) 2, Band Neutrophils 2, Toxic Granulation 1+, Polychromasia SLIGHT, Prothrombin Time 14.9H, INR Comment 1.1, Activated Partial Thromboplast Time 27, Sodium Level 138, Potassium Level 4.6, Chloride Level 105, Carbon Dioxide Level 23, Anion Gap 10, Blood Urea Nitrogen 31H, Creatinine 2.81H, Estimat Glomerular Filtration Rate 17, BUN/Creatinine Ratio 11, Glucose Level 165H, Calcium Level 10.4H, Corrected Calcium 10.8H, Total Bilirubin 0.5, Aspartate Amino Transf (AST/SGOT) 18, Alanine Aminotransferase (ALT/SGPT) 21, Alkaline Phosphatase 114, Total Protein 7.5, Albumin 3.5, Procalcitonin 0.47H 08/28/22 14:26: Influenza Type A (RT-PCR) Not Detected, Influenza Type B (RT-PCR) Not Detected, SARS-CoV-2 RNA (RT-PCR) Not Detected 08/28/22 15:52: Urine Color YELLOW, Urine Clarity CLOUDY, Urine pH 6.0, Urine Specific [place] 1.025H, Urine Protein 2+H, Urine Glucose (UA) 3+H, Urine Ketones NEGATIVE, Urine Nitrite POSITIVEH, Urine Bilirubin NEGATIVE, Urine Urobilinogen 0.2, Urine Leukocyte Esterase 2+H, Urine RBC (Auto) 2+H, Urine RBC NONE, Urine WBC TNTCH, Urine Squamous Epithelial Cells RARE, Urine Crystals NONE, Urine Bacteria MODERATEH, Urine Casts NONE, Urine Mucus NEGATIVE, Urine Yeast MODERATEH, Urine Culture Indicated CULTURE PENDING 08/28/22 20:43: Glucometer 173H 08/29/22 04:50: Glucometer 138H 08/29/22 05:31: White Blood Count 12.4H, Red Blood Count 3.64L, Hemoglobin 10.0L, Hematocrit 33L , Mean Corpuscular Volume 91, Mean Corpuscular Hemoglobin 28, Mean Corpuscular Hemoglobin Concent 30L, Red Cell Distribution Width 13.7, Platelet Count 167, Mean Platelet Volume 9.7, Immature Granulocyte % (Auto) 1, Neutrophils (%) (Auto) 79H, Lymphocytes (%) (Auto) 11L, Monocytes (%) (Auto) 8, Eosinophils (%) (Auto) 1, Basophils (%) (Auto) 0, Neutrophils # (Auto) 9.8H, Lymphocytes # (Auto) 1.4, Monocytes # (Auto) 1.0, Eosinophils # (Auto) 0.1, Basophils # (Auto) 0.0, Immature Granulocyte # (Auto) 0.1, Sodium Level 140, Potassium Level 4.4, Chloride Level 109H, Carbon Dioxide Level 21, Anion Gap 10, Blood Urea Nitrogen 28H, Creatinine 2.36H, Estimat Glomerular Filtration Rate 21, BUN/Creatinine Ratio 12, Glucose Level 146H, Calcium Level 9.4, Corrected Calcium 10.2H, Total Bilirubin 0.3, Aspartate Amino Transf (AST/SGOT) 13, Alanine Aminotransferase (ALT/SGPT) 14, Alkaline Phosphatase 96, Total Protein 6.6, Albumin 3.0L Microbiology 08/28/22 Urine Culture - Preliminary, Resulted Gram Negative [facility] Date of Exam:08/28/22 CHEST 1 VIEW, AP/PA ONLY INDICATION: Hypoxia. Comparison with 02/06/2021. FINDINGS: Right jugular line has been removed. The heart is not enlarged. There is [place] in appearance with bibasilar atelectasis. No consolidated infiltrates are seen. No pneumothorax or pleural effusion. IMPRESSION: The chronic bibasilar atelectasis with [place]wickian appearance. Assessment/Plan Assessment/Plan Assessment/Plan Cellulitis of R lower limb Presently on cefepime and vancomycin Receiving fluids Does not appear to have drainable abcess associated with the cellulitis in upper thigh and RLE Local wound care T2DM, Insulin dependent Non-healing skin ulcer on R upper inner thigh => does not appear to require debriedment, as it appears clean and without purulence Maintain close glucose control to aid in healing Acute on chronic COPD exacerbation Hypoxia 94% O2 by 3L OxyMask Significant exertional and conversational dyspnea AFIB CAD Follows with a agricultural service worker in [place] Consider cardiology consult Takes aspirin Has significant Bilat LE swelling with evidence of venous insufficiency Consider BNP, possible Echo CKD, stage III Receiving fluids HTN Hypercholesterolemia History of stroke General debility Left-sided hemiplegia following stroke Presently bed-bound Consider PT/OT Clinical Quality Measures DVT/VTE Risk/Contraindication: Contraindications-Mechi: Patient refusal of tx LOU HERRERA DO 08/30/22 1048: Subjective Subjective/Events-last exam Patient doing okay. right leg about the same as yesterday she states. Slightly uncomfortable in bed, better with being repositioned. WBC down. Denies n/v fever sweats chills shortness of breath or chest pain. Objective Exam General Appearance: No Apparent Distress, WD/WN, Chronically ill, Obese (morbid obesity) HEENT: PERRL/EOMI, TMs Normal Respiratory: Chest Non Tender, No Accessory Muscle Use, No Respiratory Distress Cardiovascular: Regular Rate, Rhythm, No JVD Gastrointestinal: non tender, soft Extremity: Normal Capillary Refill, Normal Range of Motion (Left-sided hemiplegic), Other (Bilateral lower extremity edema with right lower extremity much more erythematous and warm than the left. She is noted to have a patchy area of erythema in the medial posterior upper left thigh with 2 central ulcerations of approximately 2 to 3 cm this area is also quite warm; no palpable abscess or drainage is appreciated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: Alert, Normal Mood/Affect Skin: Warm/Dry, Other (As above, less erythema right lower extremity) Lymphatic: No Adenopathy Assessment/Plan Assessment/Plan Assessment/Plan right lower extremity cellulitis right inner thigh/buttock superficial wound Hx stroke General debility. slowly improving. continue wound care continue abx outlined right lower ext. Supervisory-Addendum Brief Verification & Attestation Participated in pt care: history, MDM, physical Personally performed: exam, history, MDM, supervision of care Care discussed with: Medical Student Procedures: n/a Results interpretation: Verified all documentation Verification and Attestation of Medical Student E/M Service A medical student performed and documented this service in my presence. I reviewed and verified all information documented by the medical student and made modifications to such information, when appropriate. I personally performed the physical exam and medical decision making. Lou Herrera, Aug 29, 2022,19:50 DIANE HDZ Aug 29, 2022 08:54 LOU HERRERA DO Aug 30, 2022 10:48
[2022-08-29] MEDS ORDERED: CALC0.5C11 PO (11:45)
[2022-08-29] MEDS ORDERED: CALC667T5 PO (11:45)
[2022-08-29] MEDS ORDERED: DEXT1DRO8 OP (11:45)
[2022-08-29] MEDS ORDERED: LACT1CAP74 PO (11:45)
[2022-08-29] MEDS ORDERED: DAPA10TA PO (11:45)
[2022-08-29] MEDS ORDERED: ARGI1POW19 PO (11:45)
[2022-08-29] MEDS ORDERED: ZINC50TA51 PO (11:45)
[2022-08-29] MEDS ORDERED: MOM10U PO (11:45)
[2022-08-29] MEDS ORDERED: DULA0.75 SQ (11:45)
[2022-08-29] MEDS ORDERED: EYEL1MED2 TP (11:45)
[2022-08-29] MEDS ORDERED: [UNRECOGNIZED DRUG - OTHER] PO PRN (12:00)
[2022-08-29] MEDS ORDERED: DEXTROMETHORPHAN PO PRN (12:00)
[2022-08-29] MEDS ORDERED: GUAIFENESIN PO PRN (12:00)
[2022-08-29] MEDS ORDERED: BISACODYL 10 MG SUPP (DULCOLAX) RC PRN (12:00)
[2022-08-29] MEDS ORDERED: RT-ALBUTEROL/IPRATROPIUM 3 ML (DUONEB) VIAL IH PRN ×2 (12:00→12:15)
[2022-08-29] MEDS: inSUlin ASPART (NovoLOG) 1 UNIT/0.01 ML (CHARGE PER UNIT) SQ SCH ×2 (12:08→17:17)
[2022-08-29] MEDS ORDERED: guaiFENesin/DM (ROBITUSSIN DM) 10 ML UDC PO PRN (12:15)
[2022-08-29] MEDS: VANCOMYCIN 1500 MG/NS 500 ML IVPB IV SCH ×2 (17:03)
[2022-08-29] MEDS: ENOXAPARIN INJECTION 30 MG/0.3 ML SYR SC SCH (17:17)
[2022-08-29] MEDS: ASPIRIN E.C. 81 MG (ECOTRIN) TAB PO SCH (19:31)
[2022-08-29] MEDS: MELATONIN 3 MG TABLET PO SCH (19:32)
[2022-08-29] MEDS: SERTRALINE 50 MG (ZOLOFT) TABLET PO SCH (19:32)
[2022-08-29] MEDS: hydrOXYzine (VISTARIL/ATARAX) 25 MG capsule/tablet PO SCH (19:37)
[2022-08-29] MEDS: MICONAZOLE 2% POWDER (DESENEX AF) 90 GM TOP SCH (22:11)
[2022-08-29] MEDS: LIDOCAINE PATCH REMOVAL TP SCH (22:11)
[2022-08-30] MEDS: RT-ALBUTEROL/IPRATROPIUM 3 ML (DUONEB) VIAL INH SCH ×4 (03:11→22:12)
[2022-08-30 03:25] VITALS: BP 145/80
[2022-08-30] MEDS: CEFEPIME INJECTION 1,000 MG in NS (IVPB) 50 ML IV SCH (03:27)
[2022-08-30] MEDS: ACETAMINOPHEN 325 MG TABLET PO PRN ×2 (03:48→17:31)
[2022-08-30] MEDS: inSUlin ASPART (NovoLOG) 1 UNIT/0.01 ML (CHARGE PER UNIT) SC SCH ×4 (05:27→20:24)
[2022-08-30 05:52] LABS: BASOPHILS % (AUTO) 1 % (0-10); EOSINOPHILS # (AUTO) 0.2 10^3/uL (0.0-0.3); EOSINOPHILS % (AUTO) 2 % (0-10); HEMATOCRIT 32 % (35-52); HEMOGLOBIN 9.6 g/dL (11.5-16.0); LYMPHOCYTES # (AUTO) 1.2 10^3/uL (1.0-4.0); LYMPHOCYTES % (AUTO) 15 % (12-44); MEAN CORPUSCULAR HEMOGLOBIN 28 pg (25-34); MEAN CORPUSCULAR HGB CONC 31 g/dL (32-36); MEAN CORPUSCULAR VOLUME 91 fL (80-99); MEAN PLATELET VOLUME 9.7 fL (9.0-12.2); MONOCYTES # (AUTO) 0.7 10^3/uL (0.0-1.0); MONOCYTES % (AUTO) 9 % (0-12); NEUTROPHILS # (AUTO) 5.8 10^3/uL (1.8-7.8); NEUTROPHILS % (AUTO) 73 % (42-75); PLATELET COUNT 145 10^3/uL (130-400); WHITE BLOOD COUNT 7.9 10^3/uL (4.3-11.0)
[2022-08-30 06:02] LABS: ALBUMIN 2.9 GM/DL (3.2-4.5); POTASSIUM 4.1 MMOL/L (3.6-5.0)
[2022-08-30 06:03] LABS: CALCIUM 9.1 MG/DL (8.5-10.1)
[2022-08-30 06:04] LABS: TOTAL PROTEIN 6.4 GM/DL (6.4-8.2)
[2022-08-30 06:06] LABS: BILIRUBIN,TOTAL 0.2 MG/DL (0.1-1.0)
[2022-08-30 06:08] LABS: CREATININE SERUM 2.09 MG/DL (0.60-1.30)
--- NOTE | 2022-08-30 06:36 | Progress Note - Hospitalist ---
Subjective HPI/CC On Admission Date Seen by Provider: Aug 30, 2022 Time Seen by Provider: 11:00 Chief complaint: Right leg cellulitis HPI: This is a 71-year-old female known to this provider who has a past medical history of CVA with chronic debility and bedridden status who presents with right leg pain found to have cellulitis failed oral antibiotics so placed inpatient for IV antibiotics broad-spectrum. Currently she is already asking to go home as she usually does every admission. Aguiar catheter was initiated. Patient having no new issues. Right leg much improved redness Subjective/Events-last exam No major changes No bowel movement yet so will initiate laxatives Supportive care will continue Wants to go home Aguiar catheter still in place ESBL on urine culture Review of Systems Musculoskeletal: leg pain Focused Exam Lactate Level 08/28/22 13:27: Lactic Acid Level 1.51 Objective Exam Vital Signs Vital Signs Date Time Temp Pulse Resp B/P (MAP) Pulse Ox O2 Delivery O2 Flow Rate FiO2 08/30/22 15:31 36.2 83 18 144/66 (92) 94 Room Air 08/30/22 14:34 0.00 08/28/22 19:53 21 Capillary Refill : Less Than 3 Seconds General Appearance: No Apparent Distress, WD/WN, Chronically ill, Obese Respiratory: Lungs Clear, Normal Breath Sounds Cardiovascular: Regular Rate, Rhythm Neurologic/Psychiatric: Alert, Oriented x3 Results/Procedures Lab Laboratory Tests 08/30/22 05:19 Patient resulted labs reviewed. Assessment/Plan Assessment and Plan Assess & Plan/Chief Complaint Assessment: Right leg cellulitis failed oral antibiotics ESBL urine infection History of CVA Hypertension Diabetes Hyperlipidemia Chronic debility CKD Plan: IV antibiotics DC cefepime add meropenem General surgery consult Home meds restarted Diagnosis/Problems Diagnosis/Problems (1) Cellulitis of right lower extremity Status: Acute (2) Sepsis Status: Resolved Qualifiers: Sepsis type: sepsis due to unspecified organism Sepsis acute organ dysfu nction status: with acute organ dysfunction Severe sepsis acute organ dysfunc tion type: acute renal failure Acute renal failure type: unspecified Severe sepsis shock status: without septic shock Qualified Codes: A41.9 - Sepsis, unspecified organism; R65.20 - Severe sepsis without septic shock; N17.9 - Acute kidney failure, unspecified Resolution Date/Time: 02/05/21 @ 13:42 (3) Bedbound Status: Chronic (4) Chronic kidney disease Status: Chronic (5) History of CVA (cerebrovascular accident) Status: Chronic (6) ANKIT (obstructive sleep apnea) Status: Chronic (7) Paroxysmal atrial fibrillation Status: Chronic Clinical Quality Measures DVT/VTE Risk/Contraindication: Contraindications-Mechi: Patient refusal of tx ALEJANDRA RUSH DO Aug 30, 2022 06:36
[2022-08-30] MEDS: inSUlin ASPART (NovoLOG) 1 UNIT/0.01 ML (CHARGE PER UNIT) SQ SCH ×3 (08:00→16:08)
--- NOTE | 2022-08-30 08:02 | Progress Note - Surgery ---
JAYLANJohnDIANE DICKSON 08/30/22 0802: Subjective Date Seen by a Provider: Aug 30, 2022 Time Seen by a Provider: 07:56 Subjective/Events-last exam Upon follow-up for cellulitis of RLE and R upper inner thigh cellulitis and ulcerations, Maren is resting supine in bed, with 3 L NC. SHe states that she is feeling "pretty good" today. She denies having any pain, appetite. She further denies any fever, chills, nausea, vomiting. Maren's RLE cellulitis appears to be retreating below the outline that was drawn. Of note, her WBC count has decreased to 7.9 from 12.4 yesterday. Focused Exam Lactate Level 08/28/22 13:27: Lactic Acid Level 1.51 Respiratory: Chest Non Tender, Normal Breath Sounds, No Accessory Muscle Use, No Respiratory Distress, Crackles, Decreased Breath Sounds Cardiovascular: Regular Rate, Rhythm, No Gallop, No JVD, No Murmur Peripheral Pulses: 2+ Radial Pulses (R), 2+ Radial Pulses (L) Skin: normal color, warm/dry Objective Exam Vital Signs Date Time Temp Pulse Resp B/P (MAP) Pulse Ox O2 Delivery O2 Flow Rate FiO2 08/30/22 03:25 36.5 85 20 145/80 (101) 94 Nasal Cannula 3.00 08/30/22 03:11 94 Nasal Cannula 3.00 08/29/22 23:18 36.8 80 22 132/63 (86) 95 Nasal Cannula 3.00 08/29/22 19:54 88 Room Air 08/29/22 19:44 Room Air 08/29/22 19:00 36.9 87 18 158/62 (94) 92 Room Air 08/29/22 15:47 90 Room Air 0.00 08/29/22 15:24 36.9 83 18 127/61 (83) 93 Nasal Cannula 1.00 08/29/22 12:19 36.8 90 18 137/61 (86) 91 Nasal Cannula 1.00 08/29/22 11:10 91 Nasal Cannula 1.00 08/29/22 11:09 88 Room Air 08/29/22 08:35 Room Air I & O 08/30/22 07:00 Intake Total 2265 ml Output Total 1975 ml Balance 290 ml Capillary Refill : Less Than 3 Seconds General Appearance: No Apparent Distress, Anxious, Chronically ill, Obese HEENT: PERRL/EOMI, Normal ENT Inspection, Pharynx Normal, Moist Mucous Membranes Neck: Full Range of Motion, Normal Inspection, Non Tender Respiratory: Chest Non Tender, Lungs Clear, Normal Breath Sounds, No Accessory Muscle Use, No Respiratory Distress Cardiovascular: Regular Rate, Rhythm, No Edema, No Gallop, No JVD, No Murmur, Normal Peripheral Pulses Peripheral Pulses: 2+ Radial Pulses (R), 2+ Radial Pulses (L) Gastrointestinal: non tender, soft Extremity: Normal Capillary Refill, Normal Inspection, Normal Range of Motion, Non Tender, No Calf Tenderness, No Pedal Edema Neurologic/Psychiatric: Alert, Oriented x3, No Motor/Sensory Deficits, Normal Mood/Affect Skin: Normal Color, Warm/Dry, Rash (Right leg with erythema and tenderness to palpation and hot to touch) Lymphatic: No Adenopathy Results Lab Laboratory Tests 08/29/22 11:04: Glucometer 173H 08/29/22 15:14: Glucometer 159H 08/29/22 20:12: Glucometer 133H 08/30/22 04:57: Glucometer 172H 08/30/22 05:19: White Blood Count 7.9, Red Blood Count 3.47L, Hemoglobin 9.6L, Hematocrit 32L, Mean Corpuscular Volume 91, Mean Corpuscular Hemoglobin 28, Mean Corpuscular Hemoglobin Concent 31L, Red Cell Distribution Width 13.5, Platelet Count 145, Mean Platelet Volume 9.7, Immature Granulocyte % (Auto) 1, Neutrophils (%) (Auto) 73, Lymphocytes (%) (Auto) 15, Monocytes (%) (Auto) 9, Eosinophils (%) (Auto) 2, Basophils (%) (Auto) 1, Neutrophils # (Auto) 5.8, Lymphocytes # (Auto) 1.2, Monocytes # (Auto) 0.7, Eosinophils # (Auto) 0.2, Basophils # (Auto) 0.0, Immature Granulocyte # (Auto) 0.1, Sodium Level 140, Potassium Level 4.1, Chloride Level 110H, Carbon Dioxide Level 21, Anion Gap 9, Blood Urea Nitrogen 24H, Creatinine 2.09H, Estimat Glomerular Filtration Rate 25, BUN/Creatinine Ratio 11, Glucose Level 186H, Calcium Level 9.1, Corrected Calcium 10.0, Total Bilirubin 0.2, Aspartate Amino Transf (AST/SGOT) 13, Alanine Aminotransferase (ALT/SGPT) 13, Alkaline Phosphatase 85, Total Protein 6.4, Albumin 2.9L Microbiology 08/28/22 Urine Culture - Preliminary, Resulted Escherichia coli 08/28/22 Blood Culture - Preliminary, Resulted No growth Assessment/Plan Assessment/Plan Assessment/Plan Cellulitis of R lower limb Presently on cefepime and vancomycin Receiving fluids Does not appear to have drainable abcess associated with the cellulitis in upper thigh and RLE Local wound care T2DM, Insulin dependent Non-healing skin ulcer on R upper inner thigh => does not appear to require debriedment, as it appears clean and without purulence Maintain close glucose control to aid in healing Acute on chronic COPD exacerbation Hypoxia 94% O2 by 3L NC Significant exertional and conversational dyspnea AFIB CAD Follows with a sterile processing technician in [place] Consider cardiology consult Takes aspirin Has significant Bilat LE swelling with evidence of venous insufficiency Consider BNP, possible Echo CKD, stage III Receiving fluids HTN Hypercholesterolemia History of stroke General debility Left-sided hemiplegia following stroke Presently bed-bound Consider PT/OT Clinical Quality Measures DVT/VTE Risk/Contraindication: Contraindications-Mechi: Patient refusal of tx LOU HERRERA DO 08/30/22 1057: Subjective Subjective/Events-last exam right lower extremity cellulitis, right lower extremity. no complaints. wanting to go home. Tolerating diet. wbc down to 7.9. Denies n/v fever sweats chills shortness of breath or chest pain. Objective Exam General Appearance: No Apparent Distress, Chronically ill, Obese HEENT: PERRL/EOMI, Normal ENT Inspection Neck: Normal Inspection, Non Tender Respiratory: Chest Non Tender, No Accessory Muscle Use, No Respiratory Distress Cardiovascular: Regular Rate, Rhythm, No JVD Gastrointestinal: non tender, soft Extremity: Non Tender, No Calf Tenderness Neurologic/Psychiatric: Alert, Oriented x3, No Motor/Sensory Deficits Skin: Normal Color, Warm/Dry, Rash (Right leg with erythema and less tenderness to palpation and warm to touch) Lymphatic: No Adenopathy Assessment/Plan Assessment/Plan Assessment/Plan right lower extremity cellulitis right inner thigh/buttock superficial wounds history of stroke general debility. continues to improve continue abx wound jail soon. Supervisory-Addendum Brief Verification & Attestation Participated in pt care: history, MDM, physical Personally performed: exam, history, MDM, supervision of care Care discussed with: Medical Student Procedures: n/a Results interpretation: Verified all documentation Verification and Attestation of Medical Student E/M Service A medical student performed and documented this service in my presence. I reviewed and verified all information documented by the medical student and made modifications to such information, when appropriate. I personally performed the physical exam and medical decision making. Lou Herrera, Aug 30, 2022,10:57 DIANE HDZ Aug 30, 2022 08:02 LOU HERRERA DO Aug 30, 2022 10:57
[2022-08-30 08:09] VITALS: BP 161/75
[2022-08-30] MEDS ORDERED: DHA PO SCH (09:00)
[2022-08-30] MEDS ORDERED: LIDOCAINE TD SCH (09:00)
[2022-08-30] MEDS ORDERED: NON-FORMULARY MEDICATION 1 EA EA (Fluticasone Propionate (Flonase Allergy Relief) 2 SPRAY) NSEACH SCH (09:00)
[2022-08-30] MEDS ORDERED: OMEGA PO SCH (09:00)
[2022-08-30] MEDS ORDERED: NON-FORMULARY MEDICATION 1 EA EA (Cholecalciferol (Vitamin D3) (Vitamin D3) 125 MCG) PO SCH (09:00)
[2022-08-30] MEDS ORDERED: NON-FORMULARY MEDICATION 1 EA EA (Gluc Su/Chondro Su A/Vit C/Mn (Glucosamine Chondroitin T PO SCH (09:00)
[2022-08-30] MEDS ORDERED: EPA PO SCH (09:00)
[2022-08-30] MEDS ORDERED: NON-FORMULARY MEDICATION 1 EA EA (Tiotropium Bromide (Spiriva Respimat 2.5MCG/ACTUATION) 2 IH SCH (09:00)
[2022-08-30] MEDS ORDERED: FISH OIL PO SCH (09:00)
[2022-08-30] MEDS ORDERED: NON-FORMULARY MEDICATION 1 EA EA (Cranberry Extract (Cranberry) 1,000 MG) PO SCH (09:00)
[2022-08-30] MEDS: UMECLIDINIUM BROMIDE (INCRUSE ELLIPTA) 7'S IH SCH (09:50)
[2022-08-30] MEDS: LIDOCAINE 4% (SALONPAS) PATCH TOP SCH (09:54)
[2022-08-30] MEDS: VITAMIN D3 125 MCG (5,000 UNITS) CAPSULE PO SCH (09:58)
[2022-08-30] MEDS: FAMOTIDINE 20 MG (PEPCID) TABLET PO SCH (09:58)
[2022-08-30] MEDS: SENNOSIDES 8.6 MG (SENOKOT) TAB PO SCH ×2 (09:58→19:26)
[2022-08-30] MEDS: ASPIRIN E.C. 81 MG (ECOTRIN) TAB PO SCH ×2 (09:58→19:26)
[2022-08-30] MEDS: FERROUS SULF 325 MG (IRON) TAB PO SCH (09:58)
[2022-08-30] MEDS: DOCUSATE SODIUM 100 MG (COLACE) CAP PO SCH ×2 (09:58→19:26)
[2022-08-30] MEDS: meTOprolol SUCCINATE 100 MG (TOPROL XL) TAB PO SCH (09:58)
[2022-08-30] MEDS: OMEGA 3 (FISH OIL) 1000 MG CAP PO SCH (11:34)
[2022-08-30] MEDS: FLUTICASONE NASAL SPRAY (FLONASE) 16 GM BTL NS SCH (11:34)
[2022-08-30] MEDS: MICONAZOLE 2% POWDER (DESENEX AF) 90 GM TOP SCH ×3 (11:34→23:16)
[2022-08-30 11:41] VITALS: BP 155/72
[2022-08-30] MEDS ORDERED: MILK OF MAGNESIA 400 MG/5 ML 30 ML UDC PO NR (12:00)
[2022-08-30] MEDS ORDERED: SENNA W/DOCUSATE (SENOKOT S) TABLET PO NR (12:00)
[2022-08-30] MEDS ORDERED: TROUGH ORDER-PHARMACY XX NR (15:00)
[2022-08-30] MEDS ORDERED: MEROPENEM 1,000 MG in NS (IVPB) 100 ML IV SCH (15:30)
[2022-08-30 15:31] VITALS: BP 144/66
[2022-08-30] MEDS: VANCOMYCIN 1500 MG/NS 500 ML IVPB IV SCH ×2 (16:04)
[2022-08-30] MEDS: MEROPENEM 500 MG/NS 100 ML IVPB IV SCH ×4 (16:04→23:16)
[2022-08-30] MEDS: ENOXAPARIN INJECTION 30 MG/0.3 ML SYR SC SCH (16:05)
[2022-08-30] MEDS: hydrOXYzine (VISTARIL/ATARAX) 25 MG capsule/tablet PO SCH (19:25)
[2022-08-30] MEDS: SERTRALINE 50 MG (ZOLOFT) TABLET PO SCH (19:26)
[2022-08-30] MEDS: MELATONIN 3 MG TABLET PO SCH (19:26)
[2022-08-30 20:10] VITALS: BP 150/66
[2022-08-30] MEDS: LIDOCAINE PATCH REMOVAL TP SCH (23:06)
[2022-08-30 23:25] VITALS: BP 160/73
[2022-08-31 04:59] VITALS: BP 153/76
[2022-08-31] MEDS: RT-ALBUTEROL/IPRATROPIUM 3 ML (DUONEB) VIAL INH SCH ×2 (05:31→21:21)
[2022-08-31] MEDS: inSUlin ASPART (NovoLOG) 1 UNIT/0.01 ML (CHARGE PER UNIT) SC SCH ×4 (05:35→20:01)
[2022-08-31 05:50] LABS: BASOPHILS % (AUTO) 0 % (0-10); EOSINOPHILS # (AUTO) 0.3 10^3/uL (0.0-0.3); EOSINOPHILS % (AUTO) 4 % (0-10); HEMATOCRIT 33 % (35-52); HEMOGLOBIN 10.2 g/dL (11.5-16.0); LYMPHOCYTES # (AUTO) 0.9 10^3/uL (1.0-4.0); LYMPHOCYTES % (AUTO) 12 % (12-44); MEAN CORPUSCULAR HEMOGLOBIN 28 pg (25-34); MEAN CORPUSCULAR HGB CONC 31 g/dL (32-36); MEAN CORPUSCULAR VOLUME 90 fL (80-99); MEAN PLATELET VOLUME 9.5 fL (9.0-12.2); MONOCYTES # (AUTO) 0.7 10^3/uL (0.0-1.0); MONOCYTES % (AUTO) 9 % (0-12); NEUTROPHILS % (AUTO) 75 % (42-75); PLATELET COUNT 168 10^3/uL (130-400)
[2022-08-31 06:10] LABS: ALBUMIN 3.1 GM/DL (3.2-4.5); POTASSIUM 4.6 MMOL/L (3.6-5.0)
[2022-08-31 06:12] LABS: CALCIUM 9.2 MG/DL (8.5-10.1)
[2022-08-31 06:13] LABS: TOTAL PROTEIN 6.8 GM/DL (6.4-8.2)
[2022-08-31 06:15] LABS: BILIRUBIN,TOTAL 0.3 MG/DL (0.1-1.0)
[2022-08-31 06:16] LABS: CREATININE SERUM 1.84 MG/DL (0.60-1.30)
--- NOTE | 2022-08-31 06:53 | Progress Note - Surgery ---
DIANE HDZ 08/31/22 0653: Subjective Date Seen by a Provider: Aug 31, 2022 Time Seen by a Provider: 07:53 Subjective/Events-last exam Upon follow-up for cellulitis of RLE and R upper inner thigh cellulitis and ulcerations, Maren is resting supine in bed, with 3 L O2 by [place]. She states that she feels 'pretty good today,' and is eager to return home. She is using her incentive spirometer, though the utility of this may be decreased as she tends to take shallow breaths. Of note, her Vanc trough resulted at 21.1, so she is presently on Meropenem. She denies any pain, nausea, vomiting, fever, or chills. RLE extremity erythema and warm is further decreased from yesterday. Maren stats she had a bowel movement last night, and reports that she still does not have much of an appetite. Review of Systems General: No Chills, No Night Sweats HEENT: No Head Aches, No Visual Changes Pulmonary: Dyspnea (exertional, conversational); No Cough Cardiovascular: No: Chest Pain, Palpitations Gastrointestinal: No: Nausea, Vomiting, Abdominal Pain Genitourinary: No Dysuria, No Frequency Musculoskeletal: No: neck pain, shoulder pain Neurological: Weakness, Numbness, Incoordination Focused Exam Lactate Level 08/28/22 13:27: Lactic Acid Level 1.51 Respiratory: Chest Non Tender, Lungs Clear, No Accessory Muscle Use, No Respiratory Distress, Decreased Breath Sounds Cardiovascular: Regular Rate, Rhythm, No Gallop, No JVD, No Murmur, Normal Peripheral Pulses Capillary Refill: Less Than 3 Seconds Peripheral Pulses: 2+ Radial Pulses (L) Skin: normal color, warm/dry Objective Exam Vital Signs Date Time Temp Pulse Resp B/P (MAP) Pulse Ox O2 Delivery O2 Flow Rate FiO2 08/31/22 04:59 36.0 83 18 153/76 (101) 97 Nasal Cannula 3.00 08/30/22 23:25 36.1 82 20 160/73 (102) 96 Nasal Cannula 3.00 08/30/22 22:12 87 Room Air 08/30/22 20:10 35.9 80 18 150/66 (94) 92 Room Air 08/30/22 19:29 Room Air 08/30/22 15:31 36.2 83 18 144/66 (92) 94 Room Air 08/30/22 14:34 90 Room Air 0.00 08/30/22 11:41 36.6 85 18 155/72 (99) 93 Nasal Cannula 3.00 08/30/22 09:50 93 Nasal Cannula 3.00 08/30/22 08:09 36.7 89 18 161/75 (103) 92 Nasal Cannula 3.00 08/30/22 08:00 Room Air I & O 08/31/22 07:00 Intake Total 1130 ml Output Total 2000 ml Balance -870 ml Capillary Refill : Less Than 3 Seconds General Appearance: No Apparent Distress, WD/WN, Chronically ill, Obese HEENT: PERRL/EOMI, Normal ENT Inspection Neck: Normal Inspection, Non Tender Respiratory: Lungs Clear, Normal Breath Sounds Cardiovascular: Regular Rate, Rhythm Peripheral Pulses: 2+ Radial Pulses (R), 2+ Radial Pulses (L) Gastrointestinal: non tender, soft Extremity: Non Tender, No Calf Tenderness, Pedal Edema Neurologic/Psychiatric: Alert, Oriented x3 Skin: Normal Color, Warm/Dry, Rash (Bilat LE stasis dermatitis 2/2 venous insufficiency; RLE has diminished erythema, warmth from yesterday (08/30)) Lymphatic: No Adenopathy Results Lab Laboratory Tests 08/30/22 15:20: Vancomycin Level Trough 21.1H 08/30/22 15:28: Glucometer 92 08/30/22 20:12: Glucometer 166H 08/31/22 05:03: Glucometer 163H 08/31/22 05:33: White Blood Count 8.0, Red Blood Count 3.63L, Hemoglobin 10.2L, Hematocrit 33L, Mean Corpuscular Volume 90, Mean Corpuscular Hemoglobin 28, Mean Corpuscular Hemoglobin Concent 31L, Red Cell Distribution Width 13.2, Platelet Count 168, Mean Platelet Volume 9.5, Immature Granulocyte % (Auto) 1, Neutrophils (%) (Aut o) 75, Lymphocytes (%) (Auto) 12, Monocytes (%) (Auto) 9, Eosinophils (%) (Auto) 4, Basophils (%) (Auto) 0, Neutrophils # (Auto) 6.0, Lymphocytes # (Auto) 0.9L, Monocytes # (Auto) 0.7, Eosinophils # (Auto) 0.3, Basophils # (Auto) 0.0, Immature Granulocyte # (Auto) 0.0, Sodium Level 141, Potassium Level 4.6, Chloride Level 110H, Carbon Dioxide Level 23, Anion Gap 8, Blood Urea Nitrogen 18, Creatinine 1.84H, Estimat Glomerular Filtration Rate 29, BUN/Creatinine Ratio 10, Glucose Level 170H, Calcium Level 9.2, Corrected Calcium 9.9, Total Bilirubin 0.3, Aspartate Amino Transf (AST/SGOT) 13, Alanine Aminotransferase (ALT/SGPT) 16, Alkaline Phosphatase 92, Total Protein 6.8, Albumin 3.1L Microbiology 08/28/22 Urine Culture - Final, Complete Escherichia coli 08/28/22 Blood Culture - Preliminary, Resulted No growth Assessment/Plan Assessment/Plan Assessment/Plan Cellulitis of R lower limb Presently on Meropenem Receiving fluids Does not appear to have drainable abcess associated with the cellulitis in upper thigh and RLE Local wound care T2DM, Insulin dependent Non-healing skin ulcer on R upper inner thigh => does not appear to require debriedment, as it appears clean and without purulence Maintain close glucose control to aid in healing Acute on chronic COPD exacerbation Hypoxia 97% O2 by 3L NC Significant exertional and conversational dyspnea AFIB CAD Follows with a home maker in [place] Consider cardiology consult Takes aspirin Has significant Bilat LE swelling with evidence of venous insufficiency Consider BNP, possible Echo CKD, stage III Receiving fluids Clinical Quality Measures DVT/VTE Risk/Contraindication: Contraindications-Mechi: Patient refusal of tx LOU HERRERA DO 08/31/22 1705: Subjective Subjective/Events-last exam No new complaints. Wanting to go home. Right leg improving. Still some swelling. Denies n/v fever sweats chills shortness of breath or chest pain. Objective Exam General Appearance: No Apparent Distress, Chronically ill HEENT: PERRL/EOMI, Normal ENT Inspection Neck: Normal Inspection, Non Tender Respiratory: Chest Non Tender, No Accessory Muscle Use, No Respiratory Distress Cardiovascular: Regular Rate, Rhythm, No JVD Gastrointestinal: non tender, soft Extremity: Non Tender, No Calf Tenderness, Pedal Edema, Other (left sided hemiplegia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: Alert, Oriented x3 Skin: Normal Color, Warm/Dry, Rash (Bilat LE stasis dermatitis 2/2 venous insufficiency; RLE has diminished erythema, warmth from yesterday (08/30)) Lymphatic: No Adenopathy Assessment/Plan Assessment/Plan Assessment/Plan right lower extremity cellulitis right inner thigh/buttock superficial wounds history of stroke general debility. continues to improve continue abx wound assisted soon. Supervisory-Addendum Brief Verification & Attestation Participated in pt care: history, MDM, physical Personally performed: exam, history, MDM, supervision of care Care discussed with: Medical Student Procedures: n/a Results interpretation: Verified all documentation Verification and Attestation of Medical Student E/M Service A medical student performed and documented this service in my presence. I reviewed and verified all information documented by the medical student and made modifications to such information, when appropriate. I personally performed the physical exam and medical decision making. Lou Herrera, Aug 31, 2022,17:05 DIANE HDZ Aug 31, 2022 06:53 LOU HERRERA DO Aug 31, 2022 17:05
[2022-08-31 07:45] VITALS: BP 136/63
[2022-08-31] MEDS: MEROPENEM 500 MG/NS 100 ML IVPB IV SCH ×6 (08:34→23:40)
[2022-08-31] MEDS: VITAMIN D3 125 MCG (5,000 UNITS) CAPSULE PO SCH (08:34)
[2022-08-31] MEDS: OMEGA 3 (FISH OIL) 1000 MG CAP PO SCH (08:34)
[2022-08-31] MEDS: FERROUS SULF 325 MG (IRON) TAB PO SCH (08:34)
[2022-08-31] MEDS: DOCUSATE SODIUM 100 MG (COLACE) CAP PO SCH ×2 (08:34→20:01)
[2022-08-31] MEDS: SENNOSIDES 8.6 MG (SENOKOT) TAB PO SCH ×2 (08:34→20:00)
[2022-08-31] MEDS: ASPIRIN E.C. 81 MG (ECOTRIN) TAB PO SCH ×2 (08:34→20:01)
[2022-08-31] MEDS: LIDOCAINE 4% (SALONPAS) PATCH TOP SCH (08:35)
[2022-08-31] MEDS: meTOprolol SUCCINATE 100 MG (TOPROL XL) TAB PO SCH (08:35)
[2022-08-31] MEDS: MICONAZOLE 2% POWDER (DESENEX AF) 90 GM TOP SCH ×2 (08:35→20:01)
[2022-08-31] MEDS: FAMOTIDINE 20 MG (PEPCID) TABLET PO SCH (08:35)
[2022-08-31] MEDS: FLUTICASONE NASAL SPRAY (FLONASE) 16 GM BTL NS SCH (08:35)
[2022-08-31] MEDS: inSUlin ASPART (NovoLOG) 1 UNIT/0.01 ML (CHARGE PER UNIT) SQ SCH ×3 (08:52→15:48)
[2022-08-31] MEDS ORDERED: TROUGH ORDER-PHARMACY XX NR (10:00)
[2022-08-31 11:31] VITALS: BP 136/63
[2022-08-31] MEDS: UMECLIDINIUM BROMIDE (INCRUSE ELLIPTA) 7'S IH SCH (12:45)
[2022-08-31 15:38] VITALS: BP 160/71
[2022-08-31] MEDS: ENOXAPARIN INJECTION 30 MG/0.3 ML SYR SC SCH (15:58)
--- NOTE | 2022-08-31 16:10 | Progress Note ---
Subjective Subjective/Events-last exam Patient asking to go home today. Still having elevated kidney function. Tolerating PO diet. Review of Systems Pulmonary: No Dyspnea, No Cough Cardiovascular: Edema; No: Chest Pain, Palpitations Gastrointestinal: Nausea; No: Vomiting, Abdominal Pain Neurological: Weakness, Incoordination Objective Exam Last Set of Vital Signs Vital Signs Date Time Temp Pulse Resp B/P (MAP) Pulse Ox O2 Delivery O2 Flow Rate FiO2 08/31/22 15:38 36.4 74 19 160/71 (100) 95 Room Air 08/31/22 11:31 3.00 08/28/22 19:53 21 Capillary Refill : Less Than 3 Seconds I&O Intake and Output 08/31/22 00:00 Intake Total 1180 ml Output Total 2200 ml Balance -1020 ml Intake Oral 1030 ml IV Total 150 ml Output Urine Total 2200 ml General: Alert, No Acute Distress Lungs: Clear to Auscultation, Normal Air Movement Heart: Regular Rate, No Murmurs Abdomen: Normal Bowel Sounds, Soft, No Tenderness, No Masses Extremities: Other (3+ pitting edema bilaterally with chronic venous statis changes) Neuro: Normal Speech Results/Procedures Lab Laboratory Tests 08/30/22 20:12: Glucometer 166H 08/31/22 05:03: Glucometer 163H 08/31/22 05:33: White Blood Count 8.0, Red Blood Count 3.63L, Hemoglobin 10.2L, Hematocrit 33L, Mean Corpuscular Volume 90, Mean Corpuscular Hemoglobin 28, Mean Corpuscular Hemoglobin Concent 31L, Red Cell Distribution Width 13.2, Platelet Count 168, M angelita Platelet Volume 9.5, Immature Granulocyte % (Auto) 1, Neutrophils (%) (Auto) 75, Lymphocytes (%) (Auto) 12, Monocytes (%) (Auto) 9, Eosinophils (%) (Auto) 4, Basophils (%) (Auto) 0, Neutrophils # (Auto) 6.0, Lymphocytes # (Auto) 0.9L, Monocytes # (Auto) 0.7, Eosinophils # (Auto) 0.3, Basophils # (Auto) 0.0, Immature Granulocyte # (Auto) 0.0, Sodium Level 141, Potassium Level 4.6, Chloride Level 110H, Carbon Dioxide Level 23, Anion Gap 8, Blood Urea Nitrogen 18, Creatinine 1.84H, Estimat Glomerular Filtration Rate 29, BUN/Creatinine Ratio 10, Glucose Level 170H, Calcium Level 9.2, Corrected Calcium 9.9, Total Bilirubin 0.3, Aspartate Amino Transf (AST/SGOT) 13, Alanine Aminotransferase (ALT/SGPT) 16, Alkaline Phosphatase 92, Total Protein 6.8, Albumin 3.1L 08/31/22 10:13: Vancomycin Level Trough 13.8 08/31/22 11:04: Glucometer 149H 08/31/22 15:18: Glucometer 160H Microbiology 08/28/22 Urine Culture - Final, Complete Escherichia coli 08/28/22 Blood Culture - Preliminary, Resulted No growth Radiology Date of Exam:08/28/22 CHEST 1 VIEW, AP/PA ONLY INDICATION: Hypoxia. Comparison with 02/06/2021. FINDINGS: Right jugular line has been removed. The heart is not enlarged. There is [place] in appearance with bibasilar atelectasis. No consolidated infiltrates are seen. No pneumothorax or pleural effusion. IMPRESSION: The chronic bibasilar atelectasis with [place] appearance Assessment/Plan Assessment/Plan (1) Cellulitis of right lower extremity Status: Acute Assessment & Plan: -08/31: improving but still has quite a bit of swelling, continue IV antibiotics, compression (2) Acute on chronic renal failure Status: Acute Assessment & Plan: -08/31: Encourage PO hydration, will monitor kidney function Qualifiers: (3) ESBL (extended spectrum beta-lactamase) producing bacteria infection Status: Acute (4) HTN (hypertension) Status: Chronic Assessment & Plan: -08/31: Continue home meds Qualifiers: Qualified Codes: I10 - Essential (primary) hypertension (5) HLD (hyperlipidemia) Status: Chronic Assessment & Plan: 08/31: Continue home meds Qualifiers: Qualified Codes: E78.5 - Hyperlipidemia, unspecified (6) Insulin dependent diabetes mellitus with complications Status: Chronic (7) Bedbound Status: Chronic Clinical Quality Measures DVT/VTE Risk/Contraindication: Contraindications-Mechi: Patient refusal of tx LARY WHITMORE MD Aug 31, 2022 16:10
[2022-08-31 19:08] VITALS: BP 176/76
[2022-08-31] MEDS: MELATONIN 3 MG TABLET PO SCH (20:01)
[2022-08-31] MEDS: hydrOXYzine (VISTARIL/ATARAX) 25 MG capsule/tablet PO SCH (20:01)
[2022-08-31] MEDS: SERTRALINE 50 MG (ZOLOFT) TABLET PO SCH (20:01)
[2022-08-31] MEDS: LIDOCAINE PATCH REMOVAL TP SCH (21:23)
[2022-08-31 23:40] VITALS: BP 146/76
[2022-09-01 03:56] VITALS: BP 147/78
[2022-09-01] MEDS: inSUlin ASPART (NovoLOG) 1 UNIT/0.01 ML (CHARGE PER UNIT) SC SCH ×2 (05:42→11:21)
[2022-09-01 06:03] LABS: ALBUMIN 3.1 GM/DL (3.2-4.5); POTASSIUM 4.5 MMOL/L (3.6-5.0)
[2022-09-01 06:04] LABS: CALCIUM 9.5 MG/DL (8.5-10.1)
[2022-09-01 06:06] LABS: TOTAL PROTEIN 6.9 GM/DL (6.4-8.2)
[2022-09-01 06:07] LABS: BILIRUBIN,TOTAL 0.2 MG/DL (0.1-1.0)
[2022-09-01 06:09] LABS: CREATININE SERUM 1.71 MG/DL (0.60-1.30)
[2022-09-01 06:34] LABS: BASOPHILS # (AUTO) 0.1 10^3/uL (0.0-0.1); BASOPHILS % (AUTO) 1 % (0-10); EOSINOPHILS # (AUTO) 0.3 10^3/uL (0.0-0.3); EOSINOPHILS % (AUTO) 5 % (0-10); HEMATOCRIT 34 % (35-52); HEMOGLOBIN 10.4 g/dL (11.5-16.0); LYMPHOCYTES # (AUTO) 1.2 10^3/uL (1.0-4.0); LYMPHOCYTES % (AUTO) 19 % (12-44); MEAN CORPUSCULAR HEMOGLOBIN 28 pg (25-34); MEAN CORPUSCULAR HGB CONC 31 g/dL (32-36); MEAN CORPUSCULAR VOLUME 90 fL (80-99); MEAN PLATELET VOLUME 9.5 fL (9.0-12.2); MONOCYTES # (AUTO) 0.7 10^3/uL (0.0-1.0); MONOCYTES % (AUTO) 10 % (0-12); NEUTROPHILS # (AUTO) 4.4 10^3/uL (1.8-7.8); NEUTROPHILS % (AUTO) 65 % (42-75); PLATELET COUNT 189 10^3/uL (130-400); WHITE BLOOD COUNT 6.7 10^3/uL (4.3-11.0)
[2022-09-01] MEDS: RT-ALBUTEROL/IPRATROPIUM 3 ML (DUONEB) VIAL INH SCH (06:42)
[2022-09-01] MEDS: UMECLIDINIUM BROMIDE (INCRUSE ELLIPTA) 7'S IH SCH (06:42)
--- NOTE | 2022-09-01 07:10 | Progress Note - Surgery ---
DIANE HDZ 09/01/22 0710: Subjective Date Seen by a Provider: Sep 01, 2022 Time Seen by a Provider: 07:05 Subjective/Events-last exam Upon follow-up for cellulitis of RLE and R upper inner thigh cellulitis and ulcerations, Maren is resting supine in bed with 2 L by [place]. She is quite so mnolent today, and did not wake to my presence despite my best efforts. Her RLE continues to look improved, with cellulitis well below our outline. Again, it is difficult to assess grossly, as patient has chronic stasis dermatitis, which obscures possible erythema. I did not note any warmth. She groggily stated that she feels okay today. Review of Systems General: No Chills, No Night Sweats HEENT: No Head Aches, No Visual Changes Pulmonary: Dyspnea (exertional, conversational); No Cough Cardiovascular: Orthopnea; No: Chest Pain, Palpitations Gastrointestinal: No: Nausea, Vomiting, Abdominal Pain Genitourinary: No Dysuria, No Frequency Musculoskeletal: No: neck pain, shoulder pain Focused Exam Respiratory: Chest Non Tender, No Accessory Muscle Use, No Respiratory Distress, Crackles (Expiratory, more prominent on R), Decreased Breath Sounds Cardiovascular: Regular Rate, Rhythm, No Gallop, No JVD, No Murmur, Normal Brianna pheral Pulses Capillary Refill: Less Than 3 Seconds Peripheral Pulses: 2+ Radial Pulses (R), 2+ Radial Pulses (L) Skin: normal color, warm/dry, rash (Stasis dermatitis), ulcerations (Shallow ulcerations on upper, inner R thigh) Objective Exam Vital Signs Date Time Temp Pulse Resp B/P (MAP) Pulse Ox O2 Delivery O2 Flow Rate FiO2 09/01/22 06:42 91 Nasal Cannula 3.00 09/01/22 03:56 36.4 76 20 147/78 (101) 96 Nasal Cannula 2.00 08/31/22 23:40 36.4 78 20 146/76 (99) 94 Nasal Cannula 2.00 08/31/22 21:23 90 Room Air 08/31/22 20:10 Room Air 08/31/22 19:08 36.6 81 21 176/76 (109) 92 Room Air 08/31/22 15:38 36.4 74 19 160/71 (100) 95 Room Air 08/31/22 11:31 37.0 75 18 136/63 (87) 91 Nasal Cannula 3.00 08/31/22 08:45 Room Air 08/31/22 07:45 36.9 84 18 136/63 (87) 96 Nasal Cannula 3.00 I & O 09/01/22 07:00 Intake Total 1510 ml Output Total 1650 ml Balance -140 ml Capillary Refill : Less Than 3 Seconds General Appearance: No Apparent Distress, Chronically ill, Obese HEENT: PERRL/EOMI, TMs Normal, Normal ENT Inspection Neck: Normal Inspection, Non Tender Respiratory: Chest Non Tender, No Accessory Muscle Use, No Respiratory Distress, Crackles (Expiratory), Decreased Breath Sounds Cardiovascular: Regular Rate, Rhythm, No Gallop, No JVD Peripheral Pulses: 2+ Radial Pulses (R), 2+ Radial Pulses (L) Gastrointestinal: normal bowel sounds, non tender, soft Extremity: Non Tender, No Calf Tenderness, Pedal Edema, Other (left sided hemiplegia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: Alert, Oriented x3 Skin: Normal Color, Warm/Dry, Rash (Bilat LE stasis dermatitis 2/2 venous insufficiency; RLE has diminished erythema and warmth from yesterday, (08/31)) Lymphatic: No Adenopathy Results Lab Laboratory Tests 08/31/22 10:13: Vancomycin Level Trough 13.8 08/31/22 11:04: Glucometer 149H 08/31/22 15:18: Glucometer 160H 08/31/22 19:43: Glucometer 169H 09/01/22 05:32: White Blood Count 6.7, Red Blood Count 3.75L, Hemoglobin 10.4L, Hematocrit 34L, Mean Corpuscular Volume 90, Mean Corpuscular Hemoglobin 28, Mean Corpuscular Hemoglobin Concent 31L, Red Cell Distribution Width 13.2, Platelet Count 189, Mean Platelet Volume 9.5, Immature Granulocyte % (Auto) 1, Neutrophils (%) (Auto) 65, Lymphocytes (%) (Auto) 19, Monocytes (%) (Auto) 10, Eosinophils (%) (Auto) 5, Basophils (%) (Auto) 1, Neutrophils # (Auto) 4.4, Lymphocytes # (Auto) 1.2, Monocytes # (Auto) 0.7, Eosinophils # (Auto) 0.3, Basophils # (Auto) 0.1, Immature Granulocyte # (Auto) 0.0, Sodium Level 140, Potassium Level 4.5, Chloride Level 108H, Carbon Dioxide Level 22, Anion Gap 10, Blood Urea Nitrogen 16, Creatinine 1.71H, Estimat Glomerular Filtration Rate 31, BUN/Creatinine Ratio 9, Glucose Level 167H, Calcium Level 9.5, Corrected Calcium 10.2H, Total Bilirubin 0.2, Aspartate Amino Transf (AST/SGOT) 20, Alanine Aminotransferase (ALT/SGPT) 16, Alkaline Phosphatase 88, Total Protein 6.9, Albumin 3.1L 09/01/22 05:33: Glucometer 171H Microbiology 08/28/22 Urine Culture - Final, Complete Escherichia coli 08/28/22 Blood Culture - Preliminary, Resulted No growth Assessment/Plan Assessment/Plan Assessment/Plan right lower extremity cellulitis right inner thigh/buttock superficial wounds history of stroke general debility Hyperglycemia Continues to improve Continue abx Local Wound care Consider diabetic diet counseling. as tight glucose control will be important for her continued healing Home soon. Clinical Quality Measures DVT/VTE Risk/Contraindication: Contraindications-Mechi: Patient refusal of tx LOU HERRERA DO 09/01/22 2357: Subjective Subjective/Events-last exam RIght lower extremity and ulcerations improving. No new complaints No pain. Denies n/v fever sweats chills shortness of breath or chest pain. Wanting to go home. Objective Exam General Appearance: No Apparent Distress, Chronically ill, Obese HEENT: PERRL/EOMI, Normal ENT Inspection Neck: Normal Inspection, Non Tender Respiratory: Chest Non Tender, No Accessory Muscle Use Cardiovascular: Regular Rate, Rhythm, No JVD Extremity: Non Tender, No Calf Tenderness, Pedal Edema, Other (left sided hemiplegia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: Alert, Oriented x3 Skin: Normal Color, Warm/Dry, Rash (Bilat LE stasis dermatitis 2/2 venous insufficiency; RLE has diminished erythema and warmth from yesterday, (08/31)) Lymphatic: No Adenopathy Assessment/Plan Assessment/Plan Assessment/Plan right lower extremity cellulitis right inner thigh/buttock superficial wounds history of stroke general debility Hyperglycemia Continues to improve Continue abx Local Wound care Consider diabetic diet counseling. as tight glucose control will be important for her continued healing Home today. Supervisory-Addendum Brief Verification & Attestation Participated in pt care: history, MDM, physical Personally performed: exam, history, MDM, supervision of care Care discussed with: Medical Student Procedures: n/a Results interpretation: Verified all documentation Verification and Attestation of Medical Student E/M Service A medical student performed and documented this service in my presence. I reviewed and verified all information documented by the medical student and made modifications to such information, when appropriate. I personally performed the physical exam and medical decision making. Lou Herrera, Sep 01, 2022,23:57 DIANE HDZ Sep 01, 2022 07:10 LOU HERRERA DO Sep 01, 2022 23:57
[2022-09-01 07:49] VITALS: BP 157/81
[2022-09-01] MEDS: inSUlin ASPART (NovoLOG) 1 UNIT/0.01 ML (CHARGE PER UNIT) SQ SCH ×2 (08:27→13:40)
[2022-09-01] MEDS: LIDOCAINE 4% (SALONPAS) PATCH TOP SCH (08:28)
[2022-09-01] MEDS: MEROPENEM 500 MG/NS 100 ML IVPB IV SCH ×4 (08:31→16:22)
[2022-09-01] MEDS: FAMOTIDINE 20 MG (PEPCID) TABLET PO SCH (08:32)
[2022-09-01] MEDS: OMEGA 3 (FISH OIL) 1000 MG CAP PO SCH (08:32)
[2022-09-01] MEDS: DOCUSATE SODIUM 100 MG (COLACE) CAP PO SCH (08:32)
[2022-09-01] MEDS: FERROUS SULF 325 MG (IRON) TAB PO SCH (08:32)
[2022-09-01] MEDS: ASPIRIN E.C. 81 MG (ECOTRIN) TAB PO SCH (08:32)
[2022-09-01] MEDS: SENNOSIDES 8.6 MG (SENOKOT) TAB PO SCH (08:32)
[2022-09-01] MEDS: FLUTICASONE NASAL SPRAY (FLONASE) 16 GM BTL NS SCH (08:32)
[2022-09-01] MEDS: meTOprolol SUCCINATE 100 MG (TOPROL XL) TAB PO SCH (08:32)
[2022-09-01] MEDS: VITAMIN D3 125 MCG (5,000 UNITS) CAPSULE PO SCH (08:32)
[2022-09-01] MEDS: MICONAZOLE 2% POWDER (DESENEX AF) 90 GM TOP SCH (08:33)
[2022-09-01] MEDS ORDERED: ENOXAPARIN 40 MG/0.4 ML (LOVENOX) SYR SC SCH (09:00)
[2022-09-01] MEDS ORDERED: VANCOMYCIN 1250 MG/NS 250 ML IVPB IV SCH ×2 (09:00)
--- NOTE | 2022-09-01 11:04 | Discharge Summary ---
Diagnosis/Chief Complaint Date of Admission Aug 28, 2022 at 15:14 Date of Discharge 09/01/22 Admission Diagnosis Admission Diagnosis See problem list Discharge Diagnosis See Below Problems/Diagnosis: (1) Cellulitis of right lower extremity Assessment & Plan: -08/31: improving but still has quite a bit of swelling, continue IV antibiotics, compression -09/01: Transition to PO antibiotics, campbell draining clear urine, d.c campbell today Status: Acute (2) Acute on chronic renal failure Assessment & Plan: -08/31: Encourage PO hydration, will monitor kidney function -09/01: Improving, continue PO hydration Qualifiers: Status: Acute (3) ESBL (extended spectrum beta-lactamase) producing bacteria infection Status: Acute (4) HTN (hypertension) Assessment & Plan: -08/31: Continue home meds Qualifiers: Qualified Codes: I10 - Essential (primary) hypertension Status: Chronic (5) HLD (hyperlipidemia) Assessment & Plan: 08/31: Continue home meds Qualifiers: Qualified Codes: E78.5 - Hyperlipidemia, unspecified Status: Chronic (6) Insulin dependent diabetes mellitus with complications Status: Chronic (7) Bedbound Status: Chronic Discharge Summary-Simple/Stand Consultations Discharge Physical Examination Allergies: Coded Allergies: sulfamethoxazole (Verified Allergy, Unknown, 10/13/17) trimethoprim (Verified Allergy, Unknown, 10/13/17) Vitals & I&Os Vital Sign - Last 12Hours Date Time Temp Pulse Resp B/P (MAP) Pulse Ox O2 Delivery O2 Flow Rate FiO2 09/01/22 08:00 Room Air 09/01/22 07:49 36.2 72 18 157/81 (106) 95 2.50 08/28/22 19:53 21 Intake and Output 09/01/22 00:00 Intake Total 1210 ml Output Total 1400 ml Balance -190 ml General Appearance: Alert, Oriented X3, No Acute Distress Respiratory: Clear to Auscultation, Normal Air Movement Cardiovascular: Regular Rate, No Murmurs Abdominal: Normal Bowel Sounds, Soft, No Tenderness, No Masses Extremities: Other (2+ pitting edema with chronic venous stasis changes) Neuro: Normal Speech Hospital Course See final discharge diagnosis. Radiology Reviewed Date of Exam:08/28/22 CHEST 1 VIEW, AP/PA ONLY INDICATION: Hypoxia. Comparison with 02/06/2021. FINDINGS: Right jugular line has been removed. The heart is not enlarged. There is Sour [place] in appearance with bibasilar atelectasis. No consolidated infiltrates are seen. No pneumothorax or pleural effusion. IMPRESSION: The chronic bibasilar atelectasis with Pickwickian appearance Discharge Condition at discharge stable Instructions to patient/family Please see electronic discharge instructions given to patient. Discharge Medications Reviewed and agree with Discharge Medication list on patient's Discharge Instruction sheet Clinical Quality Measures DVT/VTE Risk/Contraindication: Contraindications-Mechi: Patient refusal of tx LARY WHITMORE MD Sep 01, 2022 11:04
--- NOTE | 2022-09-01 11:08 | Discharge Summary ---
Discharge [facility] Reconcile Patient Problems Problems Reviewed?: Yes Discharge Medications New, Converted or Re-Newed RX: Transmitted to Pharmacy Continued Medications: Acetaminophen (Acetaminophen) 500 Mg Tablet 1000 MG PO Q6H PRN for PAIN-MILD OR TEMPATURE, TAB Arginine/Ascorbate Sod/Marialuisa AC (Arginaid Powder) 4.5 Gram-156 Mg-90 Unit/9.2 Gram Powd.pack 1 EACH PO DAILY, EACH Aspirin (Aspirin EC) 81 Mg Tablet.dr 81 MG PO BID, TAB Bisacodyl (Dulcolax) 10 Mg Supp.rect 10 MG RC DAILY PRN PRN for CONSTIPATION-1ST LINE, SUPP.RECT Calcitriol (Calcitriol) 0.5 Mcg Capsule 0.5 MCG PO DAILY, CAP Calcium Acetate (Calcium Acetate) 667 Mg Tablet 667 MG PO DAILY, TAB Cholecalciferol (Vitamin D3) (Vitamin D3) 125 Mcg Capsule 125 MCG PO DAILY, CAP Cranberry Extract (Cranberry) 500 Mg Tablet 1000 MG PO DAILY, TAB Dapagliflozin Propanediol (Farxiga) 10 Mg Tablet 10 MG PO, TAB Dextran 70/Hypromellose/Pf (Artificial Tears Drops) 0.1 %-0.3 % Droperette 1 EACH OP PRN, DROP Docusate Sodium (Colace) 100 Mg Capsule 100 MG PO BID, CAP HOLD FOR LOOSE STOOLS Dulaglutide (Trulicity) 0.75 Mg/0.5 Ml Pen.injctr 7.5 MG SQ, EA Eyelid Cleanser Combination #3 (Ocusoft Lid Scrub Plus) 1 Each Med..pad 1 EACH TP PRN, EA Famotidine (Pepcid) 20 Mg Tablet 20 MG PO DAILY, TAB Ferrous Sulfate (Iron) 325 Mg Tablet 325 MG PO DAILY, TAB Fluticasone Propionate (Flonase Allergy Relief) 9.9 Ml [place].susp 2 SPRAY NSEACH DAILY Gluc Angulo/Chondro Angulo A/Vit C/Mn (Glucosamine Chondroitin Tab) 1 Each Tablet 2 TAB PO DAILY, TAB Guaifenesin/Dextromethorphan (Guaiasorb Dm Liquid) 118 Ml Liquid 10 ML PO Q4H PRN for COUGH, EA Hydroxyzine Pamoate (Hydroxyzine Pamoate) 25 Mg Capsule 25 MG PO HS, CAP Insulin Aspart (Novolog) 100 Unit/1 Ml Susp 30 UNIT SQ TID, EACH Insulin Detemir (Levemir Flextouch) 100 Unit/Ml (3 Ml) Insuln.pen 36 UNIT SQ BID, EA Ipratropium/Albuterol Sulfate (Iprat-Albut 0.5-3(2.5) mg/3 ml) 3 Ml Ampul.neb 3 ML IH Q6H PRN for SHORTNESS OF BREATH, EACH Lactobacillus Combination No.4 (Probiotic) Unknown Strength Capsule Unknown Dose PO, CAP Lidocaine (Lidocare) 1 Each Adh..patch 1 PATCH TD DAILY, PATCH 4% APPLY TO UPPER RIGHT THIGH Magnesium Hydroxide (Milk of Magnesia) 2,400 Mg/10 Ml Oral.susp 2400 MG PO NEEDED PRN for CONSTIPATION-1ST LINE, ML Melatonin (Melatonin) 3 Mg Tablet 3 MG PO HS, TAB Metoprolol Succinate (Metoprolol Succinate) 100 Mg Tab.er.24h 100 MG PO DAILY, TAB HOLD FOR SYSTOLIC BP <100 AND HEART RATE <60 Miconazole Nitrate (Miconazole Nitrate) 10 Gm Powder TOP BID, EA APPLY TO GROIN AND UNDER BREASTS [place]-3/Dha/Epa/Fish Oil ([place] 3 500 Softgel) 1 Each Capsule 2 CAP PO DAILY, CAP Sertraline HCl (Sertraline HCl) 50 Mg Tablet 50 MG PO HS, TAB Tiotropium [place] (Spiriva Respimat 2.5MCG/ACTUATION) 4 Gm Mist.inhal 2 PUFF IH DAILY, EA Zinc Amino Acid Chelate (Zinc) 50 Mg Tablet 50 MG PO DAILY, TAB Discontinued Medications: Acetaminophen (Tylenol Extra Strength) 500 Mg Tablet 500 MG PO HS, TAB Activity & Diet Discharge Diet: ADA Diet Activity as Tolerated: Yes LARY WHITMORE MD Sep 01, 2022 11:08
[2022-09-01 11:11] VITALS: BP 170/79
[2022-09-01 16:15] VITALS: BP 170/79
[2022-09-01 16:20] VITALS: BP 157/77
[2022-09-01 17:10] VITALS: BP 157/77
== END 2022-09-01 17:10 | DRG 872 ==
LOC: EDUNIT# 11:17 → ER 11:18 → 4TH 15:14
PROVIDERS: ADMIT Internal Medicine; ATTEND Family Medicine
DX: A41.9 Sepsis, unspecified organism (principal); L03.115 Cellulitis of right lower limb; J44.1 Chronic obstructive pulmonary disease with (acute) exacerbation; I69.354 Hemiplegia and hemiparesis following cerebral infarction affecting left non-dominant side; N17.9 Acute kidney failure, unspecified; E11.9 Type 2 diabetes mellitus without complications; Z79.82 Long term (current) use of aspirin; Z79.899 Other long term (current) drug therapy; R53.81 Other malaise; N18.30 Chronic kidney disease, stage 3 unspecified; I12.9 Hypertensive chronic kidney disease with stage 1 through stage 4 chronic kidney disease, or unspecified chronic kidney disease; E78.00 Pure hypercholesterolemia, unspecified; I25.10 Atherosclerotic heart disease of native coronary artery without angina pectoris; I48.91 Unspecified atrial fibrillation; R09.02 Hypoxemia; Z20.822 Contact with and (suspected) exposure to COVID-19; F41.9 Anxiety disorder, unspecified; F32.A Depression, unspecified; K21.9 Gastro-esophageal reflux disease without esophagitis; E11.40 Type 2 diabetes mellitus with diabetic neuropathy, unspecified; Z87.891 Personal history of nicotine dependence; Z79.4 Long term (current) use of insulin; Z79.01 Long term (current) use of anticoagulants; I48.0 Paroxysmal atrial fibrillation; Z74.01 Bed confinement status; E11.65 Type 2 diabetes mellitus with hyperglycemia; S30.91XA Unspecified superficial injury of lower back and pelvis, initial encounter; S70.921A Unspecified superficial injury of right thigh, initial encounter
CPT/HCPCS: 36415; 51702; 71045; 80053; 80202; 81000; 82947; 83605; 84145; 85007; 85025; 85027; 85610; 85730; 87040; 87077; 87088; 87186; 87636; 94640; 94664; 94760

== ENCOUNTER 2022-10-01 14:42 | Observation (INO) | payer MEDICARE, MEDICAID ==
[~2022-10-01] VITALS: Ht 175.3 cm; Wt 131.1 kg
[~2022-10-01 14:42] MED LIST changes: +ARGI1POW19 PO; +CALC0.5C11 PO; +CALC667T5 PO; -CEFEPIME INJECTION 1,000 MG in NS (IVPB) 50 ML IV SCH; +DEXT1DRO8 OU; +DULA0.75 SQ; +EYEL1MED2 OU; +LACT1CAP74 PO; +MOM10U PO; -POTA10CA43 PO; +POTA10CA44 PO; +ZINC50TA51 PO
--- NOTE | 2022-10-01 15:10 | ED General ---
General Chief Complaint: Neuro-Stroke Like Symptoms Stated Complaint: POSSIBLE STROKE Nursing Triage Note: PT TO RM 7 PER W/C FROM NH, PT ALERT,STATES SHE WOKE UP W HER MOUTH HURTING AND DAY PROGRESSED SHE KEEPS DROPPING THINGS W HER R HAND. PT HAS PREVIOUS STROKE ON L SIDE OF BODY. Source of Information: Patient, Other (assisted tech/RN) Exam Limitations: Physical Impairments (prior stoke/general debility) History of Present Illness Date Seen by Provider: Oct 01, 2022 Time Seen by Provider: 14:56 Initial Comments Patient is a 72-year-old female brought from a local assisted chief complaint of generalized weakness, pain in the right side of her mouth, she states it kind of able to open her mouth at 5:00 this morning. Patient states that she was dropping things with her right hand. 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 She is diabetic, morbidly obese, history of hypertension, depression, chronic kidney disease. She is normally able to stand with assistance of a pole. She was unable to do that today. Patient denies headache or vision change. No speech difficulty, she is edentulous. No difficulty swallowing. Denies pain in her right upper and lower extremities. She does have chronic significant swelling in her left lower extremity. Further history obtained from the assisted tech who accompanied the patient to the ER, the patient has a large wound to the right upper medial and posterior thigh. No reported recent illnesses such as fevers, chills, cough or congestion. No n ausea vomiting or diarrhea. She is chronically incontinent. Labs were apparently performed at the assisted earlier today and nursing staff were in communication with the assisted physician. Unsure at this time if the patient had a urinalysis performed. Her vital signs are currently stable. She is alert and oriented to person place and time. No obvious new focal neurologic deficits Timing/Duration: 12 Hours Severity: Mild Associated Systoms: Denies Symptoms Allergies and Home Medications Allergies Coded Allergies: sulfamethoxazole (Verified Allergy, Unknown, 10/13/17) trimethoprim (Verified Allergy, Unknown, 10/13/17) Patient Home Medication List Home Medication List Reviewed: Yes Acetaminophen (Acetaminophen) 500 Mg Tablet, 1,000 MG PO Q6H PRN for PAIN-MILD OR TEMPATURE, (Reported) Entered as Reported by: TAMIKO RASHEED on 08/29/17 1202 Arginine/Ascorbate Sod/Marialuisa AC (Arginaid Powder) 4.5 Gram-156 Mg-90 Unit/9.2 Gram Powd.pack, 1 EACH PO DAILY, (Reported) Entered as Reported by: Delaney Danielle on 08/29/22 1145 Aspirin (Aspirin EC) 81 Mg Tablet.dr, 81 MG PO BID, (Reported) Entered as Reported by: NELIA KING on 07/22/20 1134 Bisacodyl (Dulcolax) 10 Mg Supp.rect, 10 MG RC DAILY PRN PRN for CONSTIPATION- 1ST LINE, (Reported) Entered as Reported by: DASH HOWELL on 06/26/21 1855 Calcitriol (Calcitriol) 0.5 Mcg Capsule, 0.5 MCG PO DAILY, (Reported) Entered as Reported by: Delaney Danielle on 08/29/22 1145 Calcium Acetate (Calcium Acetate) 667 Mg Tablet, 667 MG PO DAILY, (Reported) Entered as Reported by: Delaney Danielle on 08/29/22 1145 Cholecalciferol (Vitamin D3) (Vitamin D3) 125 Mcg Capsule, 125 MCG PO DAILY, (Reported) Entered as Reported by: DASH HOWELL on 06/26/21 1456 Cranberry Extract (Cranberry) 500 Mg Tablet, 1,000 MG PO DAILY, (Reported) Entered as Reported by: JORGE ASH on 10/13/17 1023 Dapagliflozin Propanediol (Farxiga) 10 Mg Tablet, 10 MG PO, (Reported) Entered as Reported by: Delaney Danielle on 08/29/22 1145 Dextran 70/Hypromellose/Pf (Artificial Tears Drops) 0.1 %-0.3 % Droperette, 1 EACH OP PRN, (Reported) Entered as Reported by: Delaney Danielle on 08/29/22 1145 Docusate Sodium (Colace) 100 Mg Capsule, 100 MG PO BID, (Reported) Entered as Reported by: JANELLE DURHAM on 09/15/18 0928 Dulaglutide (Trulicity) 0.75 Mg/0.5 Ml Pen.injctr, 7.5 MG SQ, (Reported) Entered as Reported by: Delaney Danielle on 08/29/22 1145 Eyelid Cleanser Combination #3 (Ocusoft Lid Scrub Plus) 1 Each Med..pad, 1 EACH TP PRN, (Reported) Entered as Reported by: Delaney Danielle on 08/29/22 1145 Famotidine (Pepcid) 20 Mg Tablet, 20 MG PO DAILY, (Reported) Entered as Reported by: NELIA KING on 04/22/20 0849 Ferrous Sulfate (Iron) 325 Mg Tablet, 325 MG PO DAILY, (Reported) Entered as Reported by: JORGE ASH on 10/13/17 1023 Fluticasone Propionate (Flonase Allergy Relief) 9.9 Ml [place].susp, 2 SPRAY NSEACH DAILY, (Reported) Entered as Reported by: DASH HOWELL on 06/26/211854 Gluc Angulo/Chondro Angulo A/Vit C/Mn (Glucosamine Chondroitin Tab) 1 Each Tablet, 2 TAB PO DAILY, (Reported) Entered as Reported by: JORGE ASH on 10/13/17 1023 Guaifenesin/Dextromethorphan (Guaiasorb Dm Liquid) 118 Ml Liquid, 10 ML PO Q4H PRN for COUGH, (Reported) Entered as Reported by: NELIA KING on 04/22/20 0849 Hydroxyzine Pamoate (Hydroxyzine Pamoate) 25 Mg Capsule, 25 MG PO HS, (Reported) Entered as Reported by: NELIA KING on 04/22/20 0849 Insulin Aspart (Novolog) 100 Unit/1 Ml Susp, 30 UNIT SQ TID, (Reported) Entered as Reported by: NELIA KING on 04/22/20 0849 Insulin Detemir (Levemir Flextouch) 100 Unit/Ml (3 Ml) Insuln.pen, 36 UNIT SQ BID, (Reported) Entered as Reported by: DASH HOWELL on 06/26/211854 Ipratropium/Albuterol Sulfate (Iprat-Albut 0.5-3(2.5) mg/3 ml) 3 Ml Ampul.neb, 3 ML IH Q6H PRN for SHORTNESS OF BREATH, (Reported) Entered as Reported by: DASH HOWELL on 06/26/211854 Lactobacillus Combination No.4 (Probiotic) Unknown Strength Capsule, Unknown Dose PO, (Reported) Entered as Reported by: Delaney Danielle on 08/29/22 1145 Lidocaine (Lidocare) 1 Each Adh..patch, 1 PATCH TD DAILY, (Reported) Entered as Reported by: JORGE ASH on 07/28/19 1515 Magnesium Hydroxide (Milk of Magnesia) 2,400 Mg/10 Ml Oral.susp, 2,400 MG PO NEEDED PRN for CONSTIPATION-1ST LINE, (Reported) Entered as Reported by: Delaney Danielle on 08/29/22 1145 Melatonin (Melatonin) 3 Mg Tablet, 3 MG PO HS, (Reported) Entered as Reported by: JORGE ASH on 10/13/17 1023 Metoprolol Succinate (Metoprolol Succinate) 100 Mg Tab.er.24h, 100 MG PO DAILY, (Reported) Entered as Reported by: JANELLE DURHAM on 04/09/16 1445 Miconazole Nitrate (Miconazole Nitrate) 10 Gm Powder, TOP BID, (Reported) Entered as Reported by: JORGE ASH on 04/20/19 1151 [place]-3/Dha/Epa/Fish Oil ([place] 3 500 Softgel) 1 Each Capsule, 2 CAP PO DAILY, (Reported) Entered as Reported by: JORGE ASH on 04/20/19 1151 Sertraline HCl (Sertraline HCl) 50 Mg Tablet, 50 MG PO HS, (Reported) Entered as Reported by: NELIA KING on 04/22/20 0849 Tiotropium [place] (Spiriva Respimat 2.5MCG/ACTUATION) 4 Gm Mist.inhal, 2 PUFF IH DAILY, (Reported) Entered as Reported by: DASH HOWELL on 06/26/21 1855 Zinc Amino Acid Chelate (Zinc) 50 Mg Tablet, 50 MG PO DAILY, (Reported) Entered as Reported by: Delaney Danielle on 08/29/22 1145 Review of Systems Review of Systems Constitutional: see HPI EENTM: other (mouth pain; feels like right side of mouth is drooping); No blurred vision Respiratory: no symptoms reported Cardiovascular: no symptoms reported Gastrointestinal: no symptoms reported Genitourinary: no symptoms reported Musculoskeletal: other (generalized wekness) Skin: other (wound reported upper medial and posterior right thigh) Psychiatric/Neurological: Other (weakness to right hand reported) Past Ryxgbcx-Vrxedi-Ulllzg Hx Patient Social History Tobacco Use?: No Substance use?: No Alcohol Use?: No Pt feels they are or have been: No Immunizations Up To Date Tetanus Booster (TDap): Unknown PED Vaccines UTD: No Influenza Vaccine Up-to-Date: Yes; Up-to-Date First/Initial COVID19 Vaccinat: SEPTEMBER 19, 2020 Second COVID19 Vaccination Joseph: OCTOBER 09, 2020 Third COVID19 Vaccination Date: N/A Seasonal Allergies Seasonal Allergies: No Past Medical History Surgery/Hospitalization HX: SEE [facility] TRANFER SHEET Surgeries: Yes Joint Replacement, Nose, Orthopedic Respiratory: Yes COPD Currently Using CPAP: No Currently Using BIPAP: No Cardiac: Yes Atrial Fibrillation, Chronic Edema/Swelling, Coronary Artery Disease, High Cholesterol, Hypertension Neurological: Yes (STOKE LEFT SIDE WEAKNESS) Neuropathy, Stroke 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: 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 Genitourinary: Yes (CHRONIC KIDNEY DISEASE STAGE 3) UTI-Chronic Gastrointestinal: Yes Gastroesophageal Reflux, Chronic Constipation, Hemorrhoids, Ulcer Musculoskeletal: Yes (SPASMS IN L ARM FROM STROKE) Arthritis Endocrine: Yes Diabetes, Insulin dep HEENT: Yes Dysphagia Loss of Vision: Denies Hearing Impairment: Denies Cancer: No Psychosocial: Yes Sleep Difficulties, Anxiety, Depression Integumentary: No Blood Disorders: No Family Medical History Completed stroke 19 FATHER G8 BROTHER Diabetes mellitus G8 BROTHER Hypertension 19 FATHER 19 MOTHER No Pertinent Family Hx Physical Exam Vital Signs Vital Signs - First Documented 10/01/22 14:45 Temp 35.7 Pulse 64 Resp 18 B/P (MAP) 176/92 (120) Capillary Refill : Less Than 3 Seconds Height, Weight, BMI Height: 5'6.00" Weight: 118lbs. 0.5oz. [id number]; 44.00 BMI Method:Estimated General Appearance: No Apparent Distress, WD/WN, Obese Eyes: Bilateral Eye Normal Inspection, Bilateral Eye PERRL, Bilateral Eye EOMI HEENT: PERRL/EOMI, Pharynx Normal, Moist Mucous Membranes Respiratory: Lungs Clear, Normal Breath Sounds, No Accessory Muscle Use, No Respiratory Distress Cardiovascular: Regular Rate, Rhythm (HR 60's) Gastrointestinal: Non Tender, Soft Extremity: Normal Capillary Refill, Other (significant edema LLE (chronic); 2+ RLE;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: Alert, Oriented x3, Normal Mood/Affect (somewhat depressed affect), Other (chronic left hemiplegia; good [place] strength RLE) Skin: Warm/Dry Procedures/Interventions Date of ETT Placement: May 04, 2019 Time of ETT Placement: 611 Suture Size: 4-0 Progress/Results/Core Measures Suspected Sepsis SIRS Temperature: Pulse: 64 Respiratory Rate: 18 Laboratory Tests 10/01/22 14:58: White Blood Count 10.8 Blood Pressure 176 /92 Mean: 120 Laboratory Tests 10/01/22 14:58: Creatinine 2.28H, Platelet Count 168, Total Bilirubin 0.3 Results/Orders Lab Results Laboratory Tests Test 10/01/22 14:58 10/01/22 15:05 10/01/22 15:23 Range/Units White Blood Count 10.8 4.3-11.0 10^3/uL Red Blood Count 4.56 3.80-5.11 10^6/uL Hemoglobin 12.7 11.5-16.0 g/dL Hematocrit 40 35-52 % Mean Corpuscular Volume 88 80-99 fL Mean Corpuscular Hemoglobin 28 25-34 pg Mean Corpuscular Hemoglobin Concent 32 32-36 g/dL Red Cell Distribution Width 13.7 10.0-14.5 % Platelet Count 168 130-400 10^3/uL Mean Platelet Volume 10.3 9.0-12.2 fL Immature Granulocyte % (Auto) 0 % Neutrophils (%) (Auto) 73 42-75 % Lymphocytes (%) (Auto) 13 12-44 % Monocytes (%) (Auto) 11 0-12 % Eosinophils (%) (Auto) 2 0-10 % Basophils (%) (Auto) 1 0-10 % Neutrophils # (Auto) 7.9 H 1.8-7.8 10^3/uL Lymphocytes # (Auto) 1.4 1.0-4.0 10^3/uL Monocytes # (Auto) 1.1 H 0.0-1.0 10^3/uL Eosinophils # (Auto) 0.3 0.0-0.3 10^3/uL Basophils # (Auto) 0.1 0.0-0.1 10^3/uL Immature Granulocyte # (Auto) 0.0 0.0-0.1 10^3/uL Sodium Level 141 135-145 MMOL/L Potassium Level 4.2 3.6-5.0 MMOL/L Chloride Level 107 98-107 MMOL/L Carbon Dioxide Level 24 21-32 MMOL/L Anion Gap 10 5-14 MMOL/L Blood Urea Nitrogen 35 H 7-18 MG/DL Creatinine 2.28 H 0.60-1.30 MG/DL Estimat Glomerular Filtration Rate 22 BUN/Creatinine Ratio 15 Glucose Level 132 H 70-105 MG/DL Calcium Level 11.9 H 8.5-10.1 MG/DL Corrected Calcium 12.4 H 8.5-10.1 MG/DL Total Bilirubin 0.3 0.1-1.0 MG/DL Aspartate Amino Transf (AST/SGOT) 41 H 5-34 U/L Alanine Aminotransferase (ALT/SGPT) 50 0-55 U/L Alkaline Phosphatase 116 40-136 U/L Total Protein 7.6 6.4-8.2 GM/DL Albumin 3.4 3.2-4.5 GM/DL Glucometer 90 70-110 MG/DL Urine Color YELLOW Urine Clarity CLOUDY Urine pH 6.0 5-9 Urine Specific [place] 1.025 H 1.016-1.022 Urine Protein 2+ H NEGATIVE Urine Glucose (UA) 3+ H NEGATIVE Urine Ketones NEGATIVE NEGATIVE Urine Nitrite POSITIVE H NEGATIVE Urine Bilirubin NEGATIVE NEGATIVE Urine Urobilinogen 0.2 < = 1.0 MG/DL Urine Leukocyte Esterase 2+ H NEGATIVE Urine RBC (Auto) 2+ H NEGATIVE Urine RBC 5-10 H /HPF Urine WBC TNTC H /HPF Urine Crystals NONE /LPF Urine Bacteria LARGE H /HPF Urine Casts NONE /LPF Urine Mucus NEGATIVE /LPF Urine Culture Indicated YES My Orders Orders - NELLY PEDERSON MD Ed Iv/Invasive Line Start (10/01/22 15:16) Cbc With Automated Diff (10/01/22 15:16) Comprehensive Metabolic Panel (10/01/22 15:16) Ua Culture If Indicated (10/01/22 15:16) Urine Culture (10/01/22 15:23) Meropenem (Merrem 500 Mg) (10/01/22 16:00) Medications Given in ED Current Medications Medications Dose Ordered Sig/Helen Route Start Time Stop Time Status Last Admin Dose Admin Meropenem 500 mg/ Sodium Chloride 100 ml @ 200 mls/hr ONCE ONCE IV 10/01/22 16:00 10/01/22 16:29 DC 10/01/22 16:00 200 MLS/HR Vital Signs/I&O 10/01/22 14:45 Temp 35.7 Pulse 64 Resp 18 B/P (MAP) 176/92 (120) Capillary Refill : Less Than 3 Seconds Blood Pressure Mean: 120 Progress Note : Time: 17:08 Progress Note Patient seen and evaluated, morbidly obese 72-year-old diabetic hypertensive lady from local assisted with left-sided hemiplegia due to prior stroke presents with concerns for new stroke as she states she was unable to stand today, nursing support worker states that she normally can stand for transfers. She also says that she could not open her mouth and her mouth felt droopy on the right. Evaluation today includes physical exam with neurologic exam, basic laboratory studies including CBC which is normal, Chem-12 which shows her chronic kidney disease with a serum creatinine of 2.2, cath urinalysis which is grossly infected. She has no focal new neurologic deficits. No concern for acute CVA. CT scan of the head was considered but not obtained. Chest x-ray was not obtained due to no concerns for respiratory issues. Vital signs are stable. She is not tachycardic, hypotensive, hypoxic. No concerning findings on history or physical exam for sepsis. She is noted to be ESBL positive. Her urinalysis culture from August showed significant resistance to multiple antibiotics. She is allergic to Bactrim therefore that is not an option and Macrobid would not be an option due to her chronic kidney disease. Case was discussed with Dr. Brown, hospitalist. He is agreeable to observation admission on meropenem. We will put her on the medical floor. He will do que'd orders. ECG Initial ECG Impression Date: Oct 01, 2022 Initial ECG Impression Time: 15:08 Initial ECG Rate: 65 Initial ECG Rhythm: Normal Sinus Initial ECG Intervals Normal intervals, VT 178, QRS 91, QTc 442 Comment Wandering baseline across leads I, III, aVR, aVL and aVF; no ST segment elevation is noted no significant depression. Diffuse nonspecific ST-T wave changes across the precordium Departure Communication (Admissions) Time/Spoke to Admitting Phy: 17:[address] Brown, Obs with meropenem Impression Primary Impression: ESBL (extended spectrum beta-lactamase) producing bacteria infection Additional Impression: Chronic kidney disease Qualified Codes: N18.9 - Chronic kidney disease, unspecified Disposition: ADMITTED INPATIENT Condition: Stable Admissions Decision to Admit Reason: Admit from ER (General) Decision to Admit/Date: Oct 01, 2022 Time/Decision to Admit Time: 17:07 Departure-Patient Inst. Referrals: LUIS RUSSELL MD (PCP/Family) Primary Care Physician NELLY PEDERSON MD Oct 01, 2022 15:10
[2022-10-01 15:22] LABS: BASOPHILS # (AUTO) 0.1 10^3/uL (0.0-0.1); BASOPHILS % (AUTO) 1 % (0-10); EOSINOPHILS # (AUTO) 0.3 10^3/uL (0.0-0.3); EOSINOPHILS % (AUTO) 2 % (0-10); HEMATOCRIT 40 % (35-52); HEMOGLOBIN 12.7 g/dL (11.5-16.0); LYMPHOCYTES # (AUTO) 1.4 10^3/uL (1.0-4.0); LYMPHOCYTES % (AUTO) 13 % (12-44); MEAN CORPUSCULAR HEMOGLOBIN 28 pg (25-34); MEAN CORPUSCULAR HGB CONC 32 g/dL (32-36); MEAN CORPUSCULAR VOLUME 88 fL (80-99); MEAN PLATELET VOLUME 10.3 fL (9.0-12.2); MONOCYTES # (AUTO) 1.1 10^3/uL (0.0-1.0); MONOCYTES % (AUTO) 11 % (0-12); NEUTROPHILS # (AUTO) 7.9 10^3/uL (1.8-7.8); NEUTROPHILS % (AUTO) 73 % (42-75); PLATELET COUNT 168 10^3/uL (130-400); WHITE BLOOD COUNT 10.8 10^3/uL (4.3-11.0)
[2022-10-01 15:28] LABS: BILIRUBIN,URINE NEGATIVE (NEGATIVE); CLARITY,URINE CLOUDY; COLOR,URINE YELLOW; GLUCOSE, URINE (UA) 3+ (NEGATIVE); KETONES,URINE NEGATIVE (NEGATIVE); LEUKOCYTE ESTERASE ,URINE 2+ (NEGATIVE); NITRITE,URINE POSITIVE (NEGATIVE); PROTEIN,URINE 2+ (NEGATIVE)
[2022-10-01 15:36] LABS: BACTERIA,URINE LARGE /HPF; WBC,URINE TNTC /HPF
[2022-10-01 15:37] LABS: ALBUMIN 3.4 GM/DL (3.2-4.5); BILIRUBIN,TOTAL 0.3 MG/DL (0.1-1.0); CALCIUM 11.9 MG/DL (8.5-10.1); CREATININE SERUM 2.28 MG/DL (0.60-1.30); POTASSIUM 4.2 MMOL/L (3.6-5.0); TOTAL PROTEIN 7.6 GM/DL (6.4-8.2)
[2022-10-01] MEDS ORDERED: MEROPENEM 500 MG in NS (IVPB) 100 ML IV ONE (16:00)
[2022-10-01 19:38] VITALS: BP 181/91
[2022-10-01] MEDS ORDERED: ANTACID SUSP 30 ML UDC (MYLANTA) PO PRN (19:45)
[2022-10-01] MEDS ORDERED: LACTULOSE SYRUP 10GM/15ML (ENULOSE) 30ML UDC PO PRN (19:45)
[2022-10-01] MEDS ORDERED: CALCIUM CARBONATE 500 MG (TUMS) TAB.CHEW PO PRN (19:45)
[2022-10-01] MEDS ORDERED: MELATONIN 3 MG TABLET PO PRN (19:45)
[2022-10-01] MEDS ORDERED: ACETAMINOPHEN 325 MG TABLET PO PRN (19:45)
[2022-10-01] MEDS ORDERED: MEROPENEM 1,000 MG in NS (IVPB) 100 ML IV SCH (19:45)
[2022-10-01] MEDS ORDERED: BISACODYL 10 MG SUPP (DULCOLAX) PR PRN (19:45)
[2022-10-01] MEDS ORDERED: ONDANSETRON 4 MG/2 ML (SDV) Z0FRAN IV PRN (19:45)
[2022-10-01] MEDS ORDERED: ONDANSETRON 4 MG (ZOFRAN) ORAL DISSOLVE TAB PO PRN (19:45)
[2022-10-01] MEDS ORDERED: ENOXAPARIN 40 MG/0.4 ML (LOVENOX) SYR SC SCH (19:45)
[2022-10-01] MEDS ORDERED: MILK OF MAGNESIA 400 MG/5 ML 30 ML UDC PO PRN (19:45)
[2022-10-01] MEDS ORDERED: polyethylene glycoL POWDER 17 GM (MIRALAX) PACK PO PRN (19:45)
[2022-10-01] MEDS ORDERED: ENOXAPARIN INJECTION 30 MG/0.3 ML SYR SC SCH (20:00)
[2022-10-01] MEDS: inSUlin ASPART (NovoLOG) 1 UNIT/0.01 ML (CHARGE PER UNIT) SC SCH (20:11)
[2022-10-01] MEDS: SENNOSIDES 8.6 MG (SENOKOT) TAB PO SCH (20:29)
[2022-10-01] MEDS: DOCUSATE SODIUM 100 MG (COLACE) CAP PO SCH (20:29)
[2022-10-01] MEDS ORDERED: hydrOXYzine (VISTARIL/ATARAX) 25 MG capsule/tablet PO SCH (21:00)
[2022-10-01] MEDS ORDERED: hydrALAZINE (APESOLINE) 20 MG/ML VIAL IV PRN (21:15)
[2022-10-01] MEDS: NS IV 1000 ML 1,000 ML IV SCH (22:02)
[2022-10-01 23:17] VITALS: BP 165/74
[2022-10-01] MEDS: MEROPENEM 500 MG/NS 100 ML IVPB IV SCH ×2 (23:52)
[2022-10-02 03:26] VITALS: BP 150/65
[2022-10-02] MEDS: inSUlin ASPART (NovoLOG) 1 UNIT/0.01 ML (CHARGE PER UNIT) SC SCH ×4 (05:21→12:24)
[2022-10-02 07:24] VITALS: BP 135/76
[2022-10-02] MEDS: NS IV 1000 ML 1,000 ML IV SCH (07:56)
[2022-10-02] MEDS: MEROPENEM 500 MG/NS 100 ML IVPB IV SCH ×2 (07:57)
[2022-10-02] MEDS: DOCUSATE SODIUM 100 MG (COLACE) CAP PO SCH (07:58)
[2022-10-02] MEDS: SENNOSIDES 8.6 MG (SENOKOT) TAB PO SCH (07:58)
[2022-10-02 08:25] LABS: CALCIUM 10.7 MG/DL (8.5-10.1); CREATININE SERUM 2.1 MG/DL (0.60-1.30); POTASSIUM 3.6 MMOL/L (3.6-5.0)
[2022-10-02] MEDS ORDERED: CALCIUM ACETATE 667 MG CAP (PHOSLO) PO SCH (09:00)
[2022-10-02] MEDS ORDERED: meTOprolol SUCCINATE 100 MG (TOPROL XL) TAB PO SCH (09:00)
[2022-10-02 10:57] VITALS: BP 137/65
[2022-10-02 11:24] VITALS: BP 137/65
[2022-10-02] MEDS ORDERED: DRON400T6 PO ×2 (11:45)
[2022-10-02] MEDS ORDERED: CALC667C10 (11:45)
[2022-10-02] MEDS ORDERED: NYST15CR35 TOP ×2 (11:45)
[2022-10-02] MEDS ORDERED: NYST1000 PO ×2 (11:45)
[2022-10-02] MEDS ORDERED: L. A1TAB10 PO ×2 (11:45)
[2022-10-02] MEDS ORDERED: GABA300C PO ×2 (11:45)
[2022-10-02] MEDS ORDERED: KRIL1CAP31 PO ×2 (11:45)
[2022-10-02] MEDS ORDERED: DILT240C91 PO ×2 (11:45)
[2022-10-02] MEDS ORDERED: BTH10T PO ×2 (11:45)
[2022-10-02] MEDS ORDERED: LIDO700A45 TD ×2 (11:45)
[2022-10-02] MEDS ORDERED: GUAI100L13 PO ×2 (11:45)
[2022-10-02] MEDS ORDERED: ERTA1VIA4 IV ×2 (13:00)
[2022-10-02 15:22] VITALS: BP 137/65
--- NOTE | 2022-10-02 15:44 | Short Stay Summary-Hospitalist ---
History of Present Illness HPI/Chief Complaint Maren Harris is a 72 year old female who was admitted with UTI. She reports having dysuria She denies urgency and frequency. She reports having fevers. She denies nausea and vomiting. She has no other complaints. Source: patient Exam Limitations: no limitations Date Seen 10/02/22 Time Seen by a Provider: 11:35 Attending Physician Luis Russell MD PCP Admitting Physician: Colleen Brown MD Attending Physician: Colleen Brown MD Referring Physician Date of Admission Oct 01, 2022 at 17:11 Home Medications & Allergies Home Medications Reviewed patient Home Medication Reconciliation performed by pharmacy medication reconciliations optical laboratory technician and/or nursing. Patients Allergies have been reviewed. Allergies Allergies Coded Allergies sulfamethoxazole (Verified Allergy, Unknown, 10/13/17) trimethoprim (Verified Allergy, Unknown, 10/13/17) Past [id number] Hx Patient Social History Tobacco Use?: Yes Tobacco type used: Cigarettes Smoking Status: Former Smoker Smokeless Tobacco Frequency: Never a User Use of E-Cig and/or Vaping dev: No Substance use?: Yes Alcohol Use?: No Pt feels they are or have been: No Immunizations Up To Date First/Initial COVID19 Vaccinat: SEPTEMBER 19, 2020 Second COVID19 Vaccination Joseph: OCTOBER 09, 2020 Tetanus Booster (TDap): Unknown Hepatitis A: No Hepatitis B: No PED Vaccines UTD: No Seasonal Allergies Seasonal Allergies: No Current Status status: No status: No Advance Directives: Yes Advance Directive Location: Home Communicates: Verbally Primary Language: Guatemalan Preferred Spoken Language: Guatemalan Is interpretation needed?: No Implanted or Applied Medical D: None Past Medical History Surgeries: Joint Replacement, Nose, Orthopedic COPD Currently Using CPAP: No Currently Using BIPAP: No Atrial Fibrillation, Chronic Edema/Swelling, Coronary Artery Disease, High Cholesterol, Hypertension Neuropathy, Stroke 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 History: Menopausal UTI-Chronic Gastroesophageal Reflux, Chronic Constipation, Hemorrhoids, Ulcer Arthritis Diabetes, Insulin dep Dysphagia Loss of Vision: Denies Hearing Impairment: Denies Sleep Difficulties, Anxiety, Depression Blood Disorders: No PMHx: IDDM Anemia HTN Depression Chronic Atrial Fibrillation 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 Family Medical History Completed stroke 19 FATHER G8 BROTHER Diabetes mellitus G8 BROTHER Hypertension 19 FATHER 19 MOTHER No Pertinent Family Hx Review of Systems Constitutional: see HPI, fever Respiratory: no symptoms reported Cardiovascular: no symptoms reported Gastrointestinal: no symptoms reported Genitourinary: dysuria Physical Exam Physical Exam Vital Signs Vital Signs - First Documented 10/01/22 10/01/22 14:45 19:38 Temp 35.7 Pulse 64 Resp 18 B/P (MAP) 176/92 (120) Pulse Ox 92 O2 Delivery Room Air Capillary Refill : Less Than 3 Seconds Height, Weight, BMI Height: 5'6.00" Weight: 118lbs. 0.5oz. 53.290010vr; 42.66 BMI Method:Estimated General Appearance: No Apparent Distress, WD/WN, Obese Eyes: Bilateral Eye Normal Inspection, Bilateral Eye PERRL, Bilateral Eye EOMI HEENT: PERRL/EOMI, Pharynx Normal, Moist Mucous Membranes Respiratory: Lungs Clear, Normal Breath Sounds, No Accessory Muscle Use, No Res piratory Distress Cardiovascular: Regular Rate, Rhythm, No Murmur Gastrointestinal: Normal Bowel Sounds, Non Tender, Soft Extremity: Normal Inspection, Pedal Edema, Other (venous stasis dermatitis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: Alert, Oriented x3 Skin: Normal Color, Warm/Dry Results Results/Procedures Labs Laboratory Tests 10/01/22 14:58 10/02/22 08:01 Patient resulted labs reviewed. Short Stay Diagnosis Discharge Diagnosis-Short Stay Admission Diagnosis ESBL E coli UTI Final Discharge Diagnosis ESBL E coli UTI Conclusion Plan ESBL E coli UTI Midline placed Ertapenem x 7 days Diagnosis/Problems Diagnosis/Problems (1) ESBL (extended spectrum beta-lactamase) producing bacteria infection Status: Acute (2) UTI (urinary tract infection) Status: Acute Copy Copies To 1: LUIS RUSSELL MD, JARIN M MD Oct 02, 2022 15:44
== END 2022-10-02 13:02 ==
LOC: EDUNIT# 14:42 → ER 14:44 → UNDOADMOB 17:11 → 4TH 17:11 → UNDODISOB 10-02 13:02
PROVIDERS: ADMIT Internal Medicine; ATTEND Internal Medicine
DX: N39.0 Urinary tract infection, site not specified (principal); B96.20 Unspecified Escherichia coli [E. coli] as the cause of diseases classified elsewhere; Z16.12 Extended spectrum beta lactamase (ESBL) resistance; Z87.891 Personal history of nicotine dependence
CPT/HCPCS: 36410; 51701; 76937; 80048; 80053; 81000; 82947 ×2; 85025; 87077; 87088; 87186; 93005; 96366; 96372; 96376; 99284; C1751; G0378; 36415

== ENCOUNTER → 2022-10-05 | Outpatient (CLI) | payer MEDICARE, MEDICAID ==
[~2022-10-05] MED LIST changes: +CALC667C10; +DILT240C91 PO; +ERTA1VIA4 IV; +GUAI100L13 PO; +KRIL1CAP31 PO; +L. A1TAB10 PO; +LIDO700A45 TD; +NYST1000 PO; +NYST15CR35 TOP
[2022-10-05 16:10] VITALS: BP 110/92
== END ==
LOC: SDC 16:27
PROVIDERS: ATTEND Nurse Practitioner Family
DX: N39.0 Urinary tract infection, site not specified (principal); Z79.2 Long term (current) use of antibiotics
CPT/HCPCS: 36410; 76937; C1751

== ENCOUNTER 2022-10-08 19:01 | Inpatient (IN) | payer MEDICARE, MEDICAID ==
[~2022-10-08] VITALS: Ht 175.3 cm; Wt 134.3 kg
[2022-10-08] MEDS ORDERED: RT-ALBUTEROL/IPRATROPIUM 3 ML (DUONEB) VIAL INH ONE (19:15)
[2022-10-08] MEDS ORDERED: LIDOCAINE UROJET 2% GEL 10 ML PKG TOP ONE (19:15)
[2022-10-08 19:20] LABS: BASOPHILS % (AUTO) 0 % (0-10); EOSINOPHILS # (AUTO) 0.1 10^3/uL (0.0-0.3); EOSINOPHILS % (AUTO) 2 % (0-10); HEMATOCRIT 40 % (35-52); HEMOGLOBIN 12.7 g/dL (11.5-16.0); LYMPHOCYTES # (AUTO) 1.2 10^3/uL (1.0-4.0); LYMPHOCYTES % (AUTO) 12 % (12-44); MEAN CORPUSCULAR HEMOGLOBIN 28 pg (25-34); MEAN CORPUSCULAR HGB CONC 32 g/dL (32-36); MEAN CORPUSCULAR VOLUME 89 fL (80-99); MEAN PLATELET VOLUME 9.7 fL (9.0-12.2); MONOCYTES # (AUTO) 0.9 10^3/uL (0.0-1.0); MONOCYTES % (AUTO) 9 % (0-12); NEUTROPHILS # (AUTO) 7.4 10^3/uL (1.8-7.8); NEUTROPHILS % (AUTO) 77 % (42-75); PLATELET COUNT 160 10^3/uL (130-400); WHITE BLOOD COUNT 9.6 10^3/uL (4.3-11.0)
--- NOTE | 2022-10-08 19:27 | ED General ---
General Chief Complaint: General Problems/Pain Stated Complaint: SOA Nursing Triage Note: PT TO ED BY EMS FROM [facility] WITH C/O DECLINE IN HEALTH. DAUGHTER REPORTS DECLINE BEGAN YESTERDAY, STAFF REPORTS DECLINE BEGAN WHEN SHE RETURNED FROM HOSPITAL LAST WEEK. STAFF REPORTS PT WAS GIVEN FLUIDS TODAY AND THEN LASIX PT BEGAN "GURGLING." REPORTS PT HAS BEEN SUCTIONED THROUGHOUT THE DAY. Source of Information: Patient (POOR HISTORIAN), Snf Records, Old Records History of Present Illness Date Seen by Provider: Oct 08, 2022 Time Seen by Provider: 19:05 Initial Comments PT ARRIVES VIA EMS FROM [facility] EMS REPORT THEY WERE CALLED FOR PT WITH "GENERAL DECLINE IN HEALTH" SINCE SHE W HOSPITALIZED THIS PAST WEEK PT WAS HOSPITALIZED 10/01-10/02/22 FOR UTI EMS REPORTED THAT PT WAS GIVEN SOME IV FLUIDS EARLIER TODAY AT THE LONGTERM, AND THEN PT STARTED GURGLING, SO SHE WAS GIVEN SOME LASIX. NO OTHER INFORMATION WAS REPORTED TO EMS. EMS REPORT THAT PT HAD BEEN SUCTIONED THROUGHOUT THE DAY. O2 SATS WERE IN THE 80'S FOR EMS, SO O2 AT 4L WAS PLACED VIA MOUTH, AND O2 SATS UP TO 94% PER EMS. ON ARRIVAL, PT HAS O2 SAT OF 84% VIA O2 CANULA IN MOUTH, AND PT NOTED TO HAVE UPPER AIRWAY NOISE "GURGLING" ON DIRECT QUESTIONING, ABOUT PAIN, PT STATES SHE HURTS EVERYWHERE ON DIRECT QUESTIONING IF SHE HAS CHEST PAIN, SHE STATES "NO" ON DIRECT QUESTIONING IF SHE FEELS SHORT OF BREATH, SHE STATES "YES" NO DIRECT QUESTIONING IF SHE HAS NAUSEA, SHE STATES "NO" NO OTHER RELEVANT INFORMATION OBTAINABLE FROM PT. PT WAS ADMITTED HERE 08/28/22-09/01/22 FOR RIGHT LEG CELLULITIS, AND HAS A "PICC LINE" IN PLACE IN RIGHT ARM. PT ARRIVES TONIGHT WITH A RIGHT AC "MIDLINE" IV ACCESS PCP: DR. [facility] Allergies and Home Medications Allergies Coded Allergies: sulfamethoxazole (Verified Allergy, Unknown, 10/13/17) trimethoprim (Verified Allergy, Unknown, 10/13/17) Patient Home Medication List Home Medication List Reviewed: Yes Acetaminophen (Acetaminophen) 500 Mg Tablet, 1,000 MG PO Q6H PRN for PAIN-MILD OR TEMPATURE, (Reported) Entered as Reported by: TAMIKO RASHEED on 08/29/17 1202 Aspirin (Aspirin EC) 81 Mg Tablet.dr, 81 MG PO BID, (Reported) Entered as Reported by: NELIA KING on 07/22/20 1134 Bethanechol Chloride (Urecholine) 10 Mg Tablet, 10 MG PO BID, (Reported) Entered as Reported by: NELIA KING on 10/02/22 1145 Bisacodyl (Dulcolax) 10 Mg Supp.rect, 10 MG RC DAILY PRN for CONSTIPATION-4TH LINE, (Reported) Entered as Reported by: DASH HOWELL on 06/26/21 1855 Calcitriol (Calcitriol) 0.5 Mcg Capsule, 0.5 MCG PO DAILY, (Reported) Entered as Reported by: Delaney Danielle on 08/29/22 1145 Calcium Acetate (Calcium Acetate) 667 Mg Tablet, 667 MG PO DAILY, (Reported) Entered as Reported by: Delaney Danielle on 08/29/22 1145 Cholecalciferol (Vitamin D3) (Vitamin D3) 125 Mcg Capsule, 125 MCG PO DAILY, (Reported) Entered as Reported by: DASH HOWELL on 06/26/21 1456 Cranberry Extract (Cranberry) 500 Mg Tablet, 1,000 MG PO DAILY, (Reported) Entered as Reported by: JORGE ASH on 10/13/17 1023 Dapagliflozin Propanediol (Farxiga) 10 Mg Tablet, 10 MG PO DAILY, (Reported) Entered as Reported by: Delaney Danielle on 08/29/22 1145 Dextran 70/Hypromellose/Pf (Artificial Tears Drops) 0.1 %-0.3 % Droperette, 1 EACH OU UD PRN for DRY EYES, (Reported) Entered as Reported by: Delaney Danielle on 08/29/22 1145 Diltiazem HCl (Diltiazem 24Hr ER) 240 Mg Cap.er.24h, 240 MG PO DAILY, (Reported) Entered as Reported by: NELIA KING on 10/02/22 1145 Docusate Sodium (Colace) 100 Mg Capsule, 100 MG PO BID, (Reported) Entered as Reported by: JANELLE DURHAM on 09/15/18 0928 Dronedarone HCl (Multaq) 400 Mg Tablet, 400 MG PO 0800,1730, (Reported) Entered as Reported by: NELIA KING on 10/02/22 1145 Dulaglutide (Trulicity) 0.75 Mg/0.5 Ml Pen.injctr, 7.5 MG SQ WEEK, (Reported) Entered as Reported by: Delaney Danielle on 08/29/22 1145 Ertapenem Sodium (Ertapenem) 1 Gram Vial, 1 GM IV DAILY Prescribed by: GRIS COOK on 10/02/22 1300 Eyelid Cleanser Combination #3 (Ocusoft Lid Scrub Plus) 1 Each Med..pad, 1 EACH OU UD PRN for EYELID IRRITATION, (Reported) Entered as Reported by: Delaney Danielle on 08/29/22 1145 Famotidine (Pepcid) 20 Mg Tablet, 20 MG PO DAILY, (Reported) Entered as Reported by: NELIA KING on 04/22/20 0849 Ferrous Sulfate (Iron) 325 Mg Tablet, 325 MG PO DAILY, (Reported) Entered as Reported by: JORGE ASH on 10/13/17 1023 Fluticasone Propionate (Flonase Allergy Relief) 9.9 Ml [place].susp, 2 SPRAY NSEACH DAILY, (Reported) Entered as Reported by: DASH HOWELL on 06/26/21 1855 Gabapentin (Neurontin) 300 Mg Capsule, 300 MG PO 0800,1730, (Reported) Entered as Reported by: NELIA KING on 10/02/22 1145 Gluc Angulo/Chondro Angulo A/Vit C/Mn (Glucosamine Chondroitin Tab) 1 Each Tablet, 2 TAB PO DAILY, (Reported) Entered as Reported by: JORGE ASH on 10/13/17 1023 Guaifenesin (Guaifenesin) 100 Mg/5 Ml Liquid, 10 ML PO Q4H PRN for COUGH/COLD/ALLERGY, (Reported) Entered as Reported by: NELIA KING on 10/02/22 1145 Hydroxyzine Pamoate (Hydroxyzine Pamoate) 25 Mg Capsule, 25 MG PO HS, (Reported) Entered as Reported by: NELIA KING on 04/22/20 0849 Insulin Aspart (Novolog) 100 Unit/1 Ml Susp, 30 UNIT SQ TID, (Reported) Entered as Reported by: NELIA KING on 04/22/20 0849 Insulin Detemir (Levemir Flextouch) 100 Unit/Ml (3 Ml) Insuln.pen, 36 UNIT SQ BID, (Reported) Entered as Reported by: DASH HOWELL on 06/26/21 1855 Ipratropium/Albuterol Sulfate (Iprat-Albut 0.5-3(2.5) mg/3 ml) 3 Ml Ampul.neb, 3 ML IH Q6H PRN for SHORTNESS OF BREATH, (Reported) Entered as Reported by: DASH HOWELL on 06/26/21 1855 Krill/Om-3/Dha/Epa/Phospho/Ast (Krill Oil 500 mg Softgel) 500MG-86MG Capsule, 2 EACH PO DAILY, (Reported) Entered as Reported by: NELIA KING on 10/02/22 1145 L. Acidophilus/L.bulgaricus (Lactobacillus Tablet) 1 Million Cell Tablet, 1 EACH PO DAILY, (Reported) Entered as Reported by: NELIA KING on 10/02/22 1145 Lidocaine (Lidocaine 5% Patch) 5 % Adh..patch, 1 PATCH TD DAILY, (Reported) Entered as Reported by: NELIA KING on 10/02/22 1145 Magnesium Hydroxide (Milk of Magnesia) 2,400 Mg/10 Ml Oral.susp, 10 ML PO DAILY PRN for CONSTIPATION-7TH LINE, (Reported) Entered as Reported by: Delaney Danielle on 08/29/22 1145 Melatonin (Melatonin) 3 Mg Tablet, 3 MG PO HS, (Reported) Entered as Reported by: JORGE ASH on 10/13/17 1023 Metoprolol Succinate (Metoprolol Succinate) 100 Mg Tab.er.24h, 100 MG PO DAILY, (Reported) Entered as Reported by: JANELLE DURHAM on 04/09/16 1445 Miconazole Nitrate (Miconazole Nitrate) 10 Gm Powder, 1 APPLIC TOP BID, (Reported) Entered as Reported by: JORGE ASH on 04/20/19 1151 Nystatin (Nystatin) 100,000 Unit/Ml Oral.susp, 15 ML PO QID, (Reported) Entered as Reported by: NELIA KING on 10/02/22 1145 Nystatin (Nystatin) 100,000 Unit/Gram Cream..g., 1 APPLIC TOP DAILY, (Reported) Entered as Reported by: NELIA KING on 10/02/22 1145 Sertraline HCl (Sertraline HCl) 50 Mg Tablet, 50 MG PO HS, (Reported) Entered as Reported by: NELIA KING on 04/22/20 0849 Tiotropium Dana (Spiriva Respimat 2.5MCG/ACTUATION) 4 Gm Mist.inhal, 2 PUFF IH DAILY, (Reported) Entered as Reported by: DASH HOWELL on 06/26/21 1855 Zinc Amino Acid Chelate (Zinc) 50 Mg Tablet, 50 MG PO DAILY, (Reported) Entered as Reported by: Delaney Danielle on 08/29/22 1145 Discontinued Medications Arginine/Ascorbate Sod/Marialuisa AC (Arginaid Powder) 4.5 Gram-156 Mg-90 Unit/9.2 Gram Powd.pack, 1 EACH PO DAILY, (Reported) Discontinued Reason: Referral/FU Appt-Addtl Entered as Reported by: Delaney Danielle on 08/29/22 1145 Calcium Acetate (Calcium Acetate) 667 Mg Capsule, (Reported) Discontinued Reason: Duplicate Order Entered as Reported by: NELIA KING on 10/02/22 1145 Guaifenesin/Dextromethorphan (Guaiasorb Dm Liquid) 118 Ml Liquid, 10 ML PO Q4H PRN for COUGH, (Reported) Discontinued Reason: Prescription changed Entered as Reported by: NELIA KING on 04/22/20 0849 Lactobacillus Combination No.4 (Probiotic) Unknown Strength Capsule, Unknown Dose PO, (Reported) Discontinued Reason: Prescription changed Entered as Reported by: Delaney Danielle on 08/29/22 1145 Lidocaine (Lidocare) 1 Each Adh..patch, 1 PATCH TD DAILY, (Reported) Discontinued Reason: No Longer Taking Entered as Reported by: JORGE ASH on 07/28/19 1515 Oliver-3/Dha/Epa/Fish Oil (Oliver 3 500 Softgel) 1 Each Capsule, 2 CAP PO DAILY, (Reported) Discontinued Reason: Prescription changed Entered as Reported by: JORGE ASH on 04/20/19 1151 Review of Systems Review of Systems Constitutional: see HPI Past Btkpetn-Wubwfa-Hougex Hx Patient Social History Tobacco Use?: No Use of E-Cig and/or Vaping dev: No Substance use?: No Alcohol Use?: No Pt feels they are or have been: No Immunizations Up To Date Tetanus Booster (TDap): Unknown PED Vaccines UTD: No Influenza Vaccine Up-to-Date: No; Not Current First/Initial COVID19 Vaccinat: SEPTEMBER 19, 2020 Second COVID19 Vaccination Joseph: OCTOBER 09, 2020 Third COVID19 Vaccination Date: N/A Seasonal Allergies Seasonal Allergies: No Past Medical History Surgery/Hospitalization HX: SEE [facility] TRAN[facility] SHEET Surgeries: Yes Joint Replacement, Nose, Orthopedic Respiratory: Yes COPD Currently Using CPAP: No Currently Using BIPAP: No Cardiac: Yes Atrial Fibrillation, Chronic Edema/Swelling, Coronary Artery Disease, High Cholesterol, Hypertension Neurological: Yes (STOKE LEFT SIDE WEAKNESS) Neuropathy, Stroke 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: 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 Genitourinary: Yes (CHRONIC KIDNEY DISEASE STAGE 3) UTI-Chronic Gastrointestinal: Yes Gastroesophageal Reflux, Chronic Constipation, Hemorrhoids, Ulcer Musculoskeletal: Yes (SPASMS IN L ARM FROM STROKE) Arthritis Endocrine: Yes Diabetes, Insulin dep HEENT: Yes Dysphagia Loss of Vision: Denies Hearing Impairment: Denies Cancer: No Psychosocial: Yes Sleep Difficulties, Anxiety, Depression Integumentary: No Blood Disorders: No Family Medical History Completed stroke 19 FATHER G8 BROTHER Diabetes mellitus G8 BROTHER Hypertension 19 FATHER 19 MOTHER No Pertinent Family Hx Physical Exam Vital Signs Vital Signs - First Documented 10/08/22 19:04 Temp 36.3 Pulse 70 Resp 23 B/P (MAP) 169/85 (113) Pulse Ox 84 O2 Delivery Nasal Cannula O2 Flow Rate 4.00 Capillary Refill : Height, Weight, BMI Height: 5'6.00" Weight: 118lbs. 0.5oz. [id number]; 42.00 BMI Method:Estimated General Appearance: Obese (MORBIDLY OBESE), Other (LETHARGIC, MILDLY DYSPNEIC--RESPIRATIONS SHALLOW, MILDLY LABORED, WITH LOTS OF UPPER AIRWAY NOISE. ) HEENT: PERRL/EOMI Respiratory: Other ( ABOVE) Cardiovascular: Regular Rate, Rhythm Gastrointestinal: Non Tender, Soft Extremity: Pedal Edema (DIFFICULT TO DETERMIE DEGREE OF EDEMA DUE TO BODY HABITUS. CHRONIC VENOUS STASIS CHANGES. 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: Other (AWAKE, BUT LETHARGIC. ORIENTED TO SELF, APPEARS TO KNOW SHE IS IN HOSPITAL. BUT UNABLE TO DETERMINE FURTHER ORIENTATION AT THIS TIME. PT WITH KNOWN LEFT SIDE WEAKNESS FROM PRIOR CVA. ) Skin: Normal Color, Warm/Dry, Other (PT WITH KNOWN DECUBITUS ULCERS TO RIGHT POSTERIOR THIGH/BUTTOCKS AREA. ) Focused Exam Sepsis Stage: Ruled Out Reason for ruling out sepsis: DOES NOT MEET CRITERIA Possible Source: Other (PULMONARY OR URINARY TRACT) Lactate Level 10/08/22 19:13: Lactic Acid Level 1.00 Time of Focused Exam: 20:30 Respiratory: Other (UPPER AIRWAY NOISE) Cardiovascular: Regular Rate, Rhythm Skin: normal color, warm/dry Lactic Acid Level Laboratory Tests Test 10/08/22 19:13 Lactic Acid Level 1.00 MMOL/L (0.50-2.00) Within 3hrs of presentation: Admin fluids, Admin ABX, Blood cultures prior to ABX's, Focus exam, Lactate level Procedures/Interventions Date of ETT Placement: May 04, 2019 Time of ETT Placement: 611 Suture Size: 4-0 Progress/Results/Core Measures Suspected Sepsis SIRS Temperature: Pulse: 70 Respiratory Rate: 23 Laboratory Tests 10/08/22 19:13: White Blood Count 9.6 Blood Pressure 169 /85 Mean: 113 10/08/22 19:13: Lactic Acid Level 1.00 Laboratory Tests 10/08/22 19:13: Creatinine 2.29H, INR Comment 1.0, Platelet Count 160, Total Bilirubin 0.3 Results/Orders Lab Results Laboratory Tests Test 10/08/22 19:13 10/08/22 19:24 10/08/22 19:37 Range/Units White Blood Count 9.6 4.3-11.0 10^3/uL Red Blood Count 4.54 3.80-5.11 10^6/uL Hemoglobin 12.7 11.5-16.0 g/dL Hematocrit 40 35-52 % Mean Corpuscular Volume 89 80-99 fL Mean Corpuscular Hemoglobin 28 25-34 pg Mean Corpuscular Hemoglobin Concent 32 32-36 g/dL Red Cell Distribution Width 13.2 10.0-14.5 % Platelet Count 160 130-400 10^3/uL Mean Platelet Volume 9.7 9.0-12.2 fL Immature Granulocyte % (Auto) 0 % Neutrophils (%) (Auto) 77 H 42-75 % Lymphocytes (%) (Auto) 12 12-44 % Monocytes (%) (Auto) 9 0-12 % Eosinophils (%) (Auto) 2 0-10 % Basophils (%) (Auto) 0 0-10 % Neutrophils # (Auto) 7.4 1.8-7.8 10^3/uL Lymphocytes # (Auto) 1.2 1.0-4.0 10^3/uL Monocytes # (Auto) 0.9 0.0-1.0 10^3/uL Eosinophils # (Auto) 0.1 0.0-0.3 10^3/uL Basophils # (Auto) 0.0 0.0-0.1 10^3/uL Immature Granulocyte # (Auto) 0.0 0.0-0.1 10^3/uL Erythrocyte Sedimentation Rate 31 H 0-30 MM/HR Prothrombin Time 13.9 12.2-14.7 SEC INR Comment 1.0 0.8-1.4 Activated Partial Thromboplast Time 28 24-35 SEC D-Dimer 2.03 H 0.00-0.49 UG/ML Sodium Level 141 135-145 MMOL/L Potassium Level 4.2 3.6-5.0 MMOL/L Chloride Level 106 98-107 MMOL/L Carbon Dioxide Level 27 21-32 MMOL/L Anion Gap 8 5-14 MMOL/L Blood Urea Nitrogen 35 H 7-18 MG/DL Creatinine 2.29 H 0.60-1.30 MG/DL Estimat Glomerular Filtration Rate 22 BUN/Creatinine Ratio 15 Glucose Level 224 H 70-105 MG/DL Lactic Acid Level 1.00 0.50-2.00 MMOL/L Calcium Level 12.4 H 8.5-10.1 MG/DL Corrected Calcium 13.0 H 8.5-10.1 MG/DL Magnesium Level 2.3 1.6-2.4 MG/DL Total Bilirubin 0.3 0.1-1.0 MG/DL Aspartate Amino Transf (AST/SGOT) 31 5-34 U/L Alanine Aminotransferase (ALT/SGPT) 37 0-55 U/L Alkaline Phosphatase 115 40-136 U/L Total Creatine Kinase 21 L 29-168 U/L Creatine Kinase MB 0.7 <6.6 NG/ML Myoglobin 102.8 H 10.0-92.0 NG/ML Troponin I < 0.028 <0.028 NG/ML C-Reactive Protein High Sensitivity 1.97 H 0.00-0.50 MG/DL B-Type Natriuretic Peptide 90.4 <100.0 PG/ML Total Protein 7.3 6.4-8.2 GM/DL Albumin 3.3 3.2-4.5 GM/DL Influenza Type A (RT-PCR) Not Detected Not Detecte Influenza Type B (RT-PCR) Not Detected Not Detecte SARS-CoV-2 RNA (RT-PCR) Not Detected Not Detecte Urine Color YELLOW Urine Clarity SL CLOUDY Urine pH 5.5 5-9 Urine Specific Spring 1.025 H 1.016-1.022 Urine Protein TRACE H NEGATIVE Urine Glucose (UA) 3+ H NEGATIVE Urine Ketones NEGATIVE NEGATIVE Urine Nitrite NEGATIVE NEGATIVE Urine Bilirubin NEGATIVE NEGATIVE Urine Urobilinogen 0.2 < = 1.0 MG/DL Urine Leukocyte Esterase 1+ H NEGATIVE Urine RBC (Auto) 2+ H NEGATIVE Urine RBC 10-25 H /HPF Urine WBC 25-50 H /HPF Urine Squamous Epithelial Cells NONE /HPF Urine Crystals NONE /LPF Urine Bacteria TRACE /HPF Urine Casts PRESENT /LPF Urine Hyaline Casts RARE /LPF Urine Mucus NEGATIVE /LPF Urine Culture Indicated YES Blood Gas Puncture Site RT RADIAL Blood Gas Patient Temperature 36.3 Arterial Blood pH 7.31 *L 7.37-7.43 Arterial Blood Partial Pressure CO2 59 H 35-45 MMHG Arterial Blood Partial Pressure O2 72 L 79-93 MMHG Arterial Blood HCO3 29 H 23-27 MMOL/L Arterial Blood Total CO2 31.3 H 21.0-31.0 MMOL/L Arterial Blood Oxygen Saturation 95 94-100 % Arterial Blood Base Excess 3.5 H -2.5-2.5 MMOL/L Jai Test YES-POS Blood Gas Ventilator Setting NO Blood Gas Inspired Oxygen 15 L My Orders Orders - NOELLE CLARK DO Ed Iv/Invasive Line Start (10/08/22 19:04) Ekg Tracing (10/08/22 19:04) O2 (10/08/22 19:04) Monitor-Rhythm Ecg Trace Only (10/08/22 19:04) Arterial Blood Gas (10/08/22 19:04) Bnp Mono (10/08/22 19:04) Cbc With Automated Diff (10/08/22 19:04) Comprehensive Metabolic Panel (10/08/22 19:04) Creatine Kinase (10/08/22 19:04) Creatine Kinase Mb (10/08/22 19:04) Hs C Reactive Protein (10/08/22 19:04) Fibrin Degradation Products (10/08/22 19:04) Lactic Acid Analyzer (10/08/22 19:04) Magnesium (10/08/22 19:04) Protime With Inr (10/08/22 19:04) Partial Thromboplastin Time (10/08/22 19:04) Ua Culture If Indicated (10/08/22 19:04) Erythrocyte Sedimentation Rate (10/08/22 19:04) Myoglobin Serum (10/08/22 19:04) Troponin I Jacob (10/08/22 19:04) Chest 1 View, Ap/Pa Only (10/08/22 19:04) Covid 19 Inhouse Test (10/08/22 19:04) Influenza A And B By Pcr (10/08/22 19:04) Isolation Central Supply Req (10/08/22 19:04) Albuterol/Ipra Inhalation Soln (Duoneb I (10/08/22 19:15) Rt Request For Service (10/08/22 19:12) Svn Small Volume Nebulizer (10/08/22 19:12) Catheter(Urinary) Insert & Ass 03,15 (10/08/22 19:12) Lidocaine 2% (Urojet) (Xylocaine Urojet) (10/08/22 19:15) Ondansetron Injection (Zofran Injectio (10/08/22 19:45) Ondansetron Injection (Zofran Injectio (10/08/22 19:39) Urine Culture (10/08/22 19:24) Ct Head Wo-R/O Stroke (10/08/22 20:07) Cefepime Injection (Maxipime Injection) (10/08/22 20:30) Blood Culture (10/08/22 20:20) Sputum Culture (10/08/22 20:20) Ed Iv/Invasive Line Start (10/08/22 20:20) Vital Signs Adult Sepsis Patie Q15M (10/08/22 20:20) O2 (10/08/22 20:20) Remove Rings In Anticipation O (10/08/22 20:20) Ed Iv/Invasive Line Start (10/08/22 20:20) Ns Iv 1000 Ml (Sodium Chloride 0.9%) (10/08/22 20:30) Medications Given in ED Current Medications Medications Dose Ordered Sig/Helen Route Start Time Stop Time Status Last Admin Dose Admin Albuterol/ Ipratropium 3 ml ONCE ONCE INH 10/08/22 19:15 10/08/22 19:18 DC 10/08/22 19:30 3 ML Cefepime HCl 1000 mg/Sodium Chloride 50 ml @ 100 mls/hr ONCE ONCE IV 10/08/22 20:30 10/08/22 20:59 DC 10/08/22 20:50 100 MLS/HR Ondansetron HCl 8 mg ONCE ONCE IVP 10/08/22 19:45 10/08/22 19:46 DC 10/08/22 19:42 8 MG Vital Signs/I&O 10/08/22 10/08/22 10/08/22 10/08/22 19:04 19:07 19:10 19:20 Temp 36.3 Pulse 70 Resp 23 B/P (MAP) 169/85 (113) Pulse Ox 84 88 90 O2 Delivery Nasal Cannula OxyMask OxyMask OxyMask O2 Flow Rate 4.00 12.00 15.00 15.00 10/08/22 19:30 Pulse 65 Resp 24 Pulse Ox 92 O2 Flow Rate 100.00 Capillary Refill : Blood Pressure Mean: 113 Progress Note : Progress Note PPE WORN COVID AND FLU TESTING DONE PT IS AFEBRILE ON ARRIVAL SEPSIS PROTOCOL INITIATED ON ARRIVAL: PT SUCTIONED BY ER AND RT STAFF WITH MINIMAL SUCCESS. PLACED ON BIPAP SHORTLY AFTER ARRIVAL GIVEN NEB TREATMENTS SEWELL CATHETER PLACED LAB AND ABG'S DONE CXR DONE EKG DONE GIVEN IV ANTIBIOTICS CT SCAN OF HEAD ORDERED DUE TO ALTERED MENTAL STATUS UNABLE TO DO CT ANGIOGRAM OF HEAD/NECK DUE TO POOR RENAL FUNCTION--CANNOT GIVE IV CONTRAST AT THIS TIME. NO EVIDENCE OF CHF ON CXR DAUGHTER ARRIVES, AND STATES THAT SHE LAST SAW PT ON Wednesday10/04/22, AND REPORTS PT WAS DOING WELL--"BACK TO NORMAL" --WAS ALERT, TALKING, ABLE TO FEED SELF, SITTING UP, ETC. HOWEVER, DAUGHTER ALSO REPORTS THAT ON Wednesday10/02/22, SHE WAS CONFUSED AND LETHARGIC ALL DAY. PT IS NON-AMBULATORY BUT HAS BEEN ABLE TO TRANSFER SELF WITH SOME ASSIST. DAUGHTER STATES THAT PT WAS ALSO REPORTEDLY "NORMAL" YESTERDAY, BUT SINCE THIS MORNING SHE HAS BEEN MUCH WORSE--NOT REALLY TALKING, NOT ABLE SWALLOW HER SECRETIONS AND "GURGLING" AND VERY LETHARGIC. SHE STATES PT IS TO BE DNR/DNI, AND THAT THIS HAS BEEN PT'S WISHES ON PRIOR CONVERSATIONS. 2024--DAUGHTER HAS TALKED WITH HER BROTHER AND SHE REPORTS THAT THEY WANT PT TO BE A FULL CODE. VITALS STABLE O2 SATS UPPER 90'S ON BIPAP NO DETERIORATION IN PT'S CONDITION DURING ER STAY REVIEWED PRIOR RECORDS, INCLUDING ER VISITS, ADMITS, H&P'S, CONSULTS, TESTS/PROCEDURES, AND DISCHARGE SUMMARIES ECG Initial ECG Impression Date: Oct 08, 2022 Initial ECG Impression Time: 19:13 Initial ECG Rate: 67 Initial ECG Rhythm: Normal Sinus Diagnostic Imaging Comments CXR--PER RADIOLOGIST REPORT AT 1941 FINDINGS: There is cardiomegaly. Pulmonary vasculature appears unremarkable. There are no infiltrates or effusions. No pneumothorax. IMPRESSION: 1. No cardiopulmonary process. CT HEAD--PER RADIOLOGIST REPORT AT 2058 FINDINGS: There are chronic changes in a periventricular deep white matter distribution. No superimposed acute hemorrhage or infarct appreciated. There is no mass, mass effect or midline shift. No hydrocephalus. There is no acute osseous abnormality. There is complete opacification of the visualized right maxillary sinus. IMPRESSION: Chronic findings, no acute intracranial process. Reviewed: Reviewed by Me Departure Communication (Admissions) 2058--SPOKE WITH DR. WADDELL, HOSPITALIST, ACCEPTS PT FOR ADMIT. Impression Primary Impression: Altered mental status Additional Impressions: Acute on chronic respiratory failure UTI (urinary tract infection) IDDM (insulin dependent diabetes mellitus) Chronic kidney disease HX OF CVA WITH LEFT SIDE WEAKNESS DECUBITUS ULCERS RIGHT POSTERIOR THIGH Bedbound Morbid obesity Acute on chronic renal insufficiency Disposition: ADMITTED INPATIENT Condition: Improved Admissions Decision to Admit Reason: Admit from ER (General) Decision to Admit/Date: Oct 08, 2022 Time/Decision to Admit Time: 21:00 Departure-Patient Inst. Referrals: LUIS RUSSELL MD (PCP/Family) Primary Care Physician NOELLE CLARK DO Oct 08, 2022 19:27
[2022-10-08 19:30] VITALS: BP 168/64
[2022-10-08 19:31] LABS: BILIRUBIN,URINE NEGATIVE (NEGATIVE); CLARITY,URINE SL CLOUDY; COLOR,URINE YELLOW; GLUCOSE, URINE (UA) 3+ (NEGATIVE); KETONES,URINE NEGATIVE (NEGATIVE); LEUKOCYTE ESTERASE ,URINE 1+ (NEGATIVE); NITRITE,URINE NEGATIVE (NEGATIVE); PH,URINE 5.5 (5-9); PROTEIN,URINE TRACE (NEGATIVE)
--- NOTE | 2022-10-08 19:34 | Diagnostic Imaging Report ---
INDICATION: Shortness of air. EXAMINATION: Chest 10/08/2022 COMPARISON: 08/28/2022 FINDINGS: There is cardiomegaly. Pulmonary vasculature appears unremarkable. There are no infiltrates or effusions. No pneumothorax. IMPRESSION: 1. No cardiopulmonary process. Dictated by: Dictated on workstation # [id number]
[2022-10-08 19:38] LABS: ERYTHROCYTE SEDIMENTATION RATE 31 MM/HR (0-30)
[2022-10-08 19:39] LABS: ABG BASE EXCESS 3.5 MMOL/L (-2.5-2.5); ABG OXYGEN SATURATION 95 % (94-100); ABG PCO2 59 MMHG (35-45); ABG PO2 72 MMHG (79-93); ABG TCO2 31.3 MMOL/L (21.0-31.0); ALLENS TEST YES-POS; INSPIRED O2 15 L; VENTILATOR NO
[2022-10-08] MEDS ORDERED: ONDANSETRON 4 MG/2 ML (SDV) Z0FRAN ONE (19:39)
[2022-10-08 19:40] LABS: PATIENT TEMP 36.3
[2022-10-08] MEDS ORDERED: ONDANSETRON 4 MG/2 ML (SDV) Z0FRAN IVP ONE (19:45)
[2022-10-08 19:46] LABS: ALANINE AMINOTRANSFERASE 37 U/L (0-55); ALBUMIN 3.3 GM/DL (3.2-4.5); ALKALINE PHOSPHATASE 115 U/L (40-136); BILIRUBIN,TOTAL 0.3 MG/DL (0.1-1.0); BUN/CREATININE RATIO 15; CALCIUM 12.4 MG/DL (8.5-10.1); CARBON DIOXIDE 27 MMOL/L (21-32); CHLORIDE 106 MMOL/L (98-107); CREATINE KINASE 21 U/L (29-168); CREATININE SERUM 2.29 MG/DL (0.60-1.30); GFR ESTIMATED 22; GLUCOSE 224 MG/DL (70-105); MAGNESIUM 2.3 MG/DL (1.6-2.4); POTASSIUM 4.2 MMOL/L (3.6-5.0); SODIUM 141 MMOL/L (135-145); TOTAL PROTEIN 7.3 GM/DL (6.4-8.2)
[2022-10-08 19:47] LABS: FIBRIN DEGRADATION PRODUCTS 2.03 UG/ML (0.00-0.49); PROTHROMBIN TIME PATIENT 13.9 SEC (12.2-14.7)
[2022-10-08 19:50] LABS: ABG PH 7.31 (7.37-7.43)
[2022-10-08 19:54] LABS: CREATINE KINASE MB 0.7 NG/ML (<6.6)
[2022-10-08 19:58] LABS: BACTERIA,URINE TRACE /HPF; HYALINE CASTS, URINE RARE /LPF; WBC,URINE 25-50 /HPF
[2022-10-08] MEDS ORDERED: NS IV 1000 ML 1,000 ML IV SCH (20:30)
[2022-10-08] MEDS ORDERED: CEFEPIME INJECTION 1,000 MG in NS (IVPB) 50 ML IV ONE (20:30)
--- NOTE | 2022-10-08 20:55 | Diagnostic Imaging Report ---
PROCEDURE: CT head wo r/o stroke. TECHNIQUE: Multiple contiguous axial images were obtained through the brain without the use of intravenous contrast. Auto Exposure Controls were utilized during the CT exam to meet ALARA standards for radiation dose reduction. INDICATION: Shortness of air, neurological deficits. EXAMINATION: CT brain without contrast 10/08/2022. FINDINGS: There are chronic changes in a periventricular deep white matter distribution. No superimposed acute hemorrhage or infarct appreciated. There is no mass, mass effect or midline shift. No hydrocephalus. There is no acute osseous abnormality. There is complete opacification of the visualized right maxillary sinus. IMPRESSION: Chronic findings, no acute intracranial process. Dictated by: Dictated on workstation # [id number]
[2022-10-08 22:08] VITALS: BP 142/66
[2022-10-08] MEDS ORDERED: D5 1/2 NS 1000 ML IV SOLUTION 1,000 ML IV SCH (22:15)
[2022-10-08] MEDS ORDERED: ONDANSETRON 4 MG/2 ML (SDV) Z0FRAN IV PRN (22:15)
[2022-10-08 22:39] VITALS: BP 142/66
[2022-10-08 22:43] LABS: POTASSIUM 4.6 MMOL/L (3.6-5.0)
[2022-10-08 22:44] LABS: CALCIUM 11.8 MG/DL (8.5-10.1)
[2022-10-08 22:49] LABS: CREATININE SERUM 2.29 MG/DL (0.60-1.30)
[2022-10-08] MEDS: inSUlin ASPART (NovoLOG) 1 UNIT/0.01 ML (CHARGE PER UNIT) SC SCH (23:59)
[2022-10-09] VITALS (25 sets, daily range): BP systolic 102–169; BP diastolic 40–85
[2022-10-09 00:27] LABS: ABG BASE EXCESS 3.2 MMOL/L (-2.5-2.5); ABG PCO2 67 MMHG (35-45); ABG PO2 78 MMHG (79-93); ABG TCO2 31.8 MMOL/L (21.0-31.0)
[2022-10-09 00:28] LABS: ALLENS TEST YES-POS; INSPIRED O2 50% BIPAP; PATIENT TEMP 36.7; VENTILATOR NO
[2022-10-09 00:30] LABS: ABG PH 7.27 (7.37-7.43)
[2022-10-09] MEDS: RT-ALBUTEROL/IPRATROPIUM 3 ML (DUONEB) VIAL INH SCH ×4 (02:39→14:49)
[2022-10-09 03:48] LABS: ABG BASE EXCESS 4.4 MMOL/L (-2.5-2.5); ABG OXYGEN SATURATION 94 % (94-100); ABG PCO2 61 MMHG (35-45); ABG PO2 69 MMHG (79-93)
[2022-10-09 03:50] LABS: ALLENS TEST YES-POS; INSPIRED O2 50%; PATIENT TEMP 37.2; VENTILATOR NO
[2022-10-09 03:51] LABS: ABG PH 7.32 (7.37-7.43)
[2022-10-09] MEDS ORDERED: RT-ALBUTEROL/IPRATROPIUM 3 ML (DUONEB) VIAL INH PRN (04:00)
[2022-10-09 05:06] LABS: BASOPHILS # (AUTO) 0.1 10^3/uL (0.0-0.1); BASOPHILS % (AUTO) 0 % (0-10); EOSINOPHILS % (AUTO) 0 % (0-10); HEMATOCRIT 37 % (35-52); HEMOGLOBIN 11.4 g/dL (11.5-16.0); LYMPHOCYTES # (AUTO) 0.8 10^3/uL (1.0-4.0); LYMPHOCYTES % (AUTO) 7 % (12-44); MEAN CORPUSCULAR HEMOGLOBIN 28 pg (25-34); MEAN CORPUSCULAR HGB CONC 31 g/dL (32-36); MEAN CORPUSCULAR VOLUME 90 fL (80-99); MEAN PLATELET VOLUME 9.9 fL (9.0-12.2); MONOCYTES # (AUTO) 0.9 10^3/uL (0.0-1.0); MONOCYTES % (AUTO) 8 % (0-12); NEUTROPHILS # (AUTO) 9.6 10^3/uL (1.8-7.8); NEUTROPHILS % (AUTO) 84 % (42-75); PLATELET COUNT 135 10^3/uL (130-400); WHITE BLOOD COUNT 11.4 10^3/uL (4.3-11.0)
[2022-10-09 05:15] LABS: POTASSIUM 4.5 MMOL/L (3.6-5.0)
[2022-10-09 05:16] LABS: CALCIUM 10.9 MG/DL (8.5-10.1)
[2022-10-09 05:21] LABS: CREATININE SERUM 2.17 MG/DL (0.60-1.30)
[2022-10-09] MEDS: inSUlin ASPART (NovoLOG) 1 UNIT/0.01 ML (CHARGE PER UNIT) SC SCH ×4 (05:38→23:13)
[2022-10-09 05:45] LABS: BAND NEUTROPHILS 2 %; NEUTROPHILS % (MANUAL) 88 %
[2022-10-09 05:46] LABS: LYMPHOCYTES % (MANUAL) 7 %; MONOCYTES % (MANUAL) 3 %; RBC MORPH NORMAL
[2022-10-09] MEDS ORDERED: inSUlin ASPART (NovoLOG) 1 UNIT/0.01 ML (CHARGE PER UNIT) SC SCH (06:00)
[2022-10-09] MEDS ORDERED: CEFEPIME 1,000 MG/NS 50 ML IVPB IV SCH ×2 (09:00)
--- NOTE | 2022-10-09 09:17 | Wound Care Assessment ---
Wound Care Assessment Date Seen by Provider: Oct 09, 2022 Time Seen by Provider: 09:10 Chief Complaint Buttock, sacrum and posterior thigh "wounds" HPI This 72 year old patient has been to hospital repeatedly in the last month. She is currently on BiPAP and obtunded. History obtained from daughter (at bedside) and chart. She is morbidly obese with a h/o chronic lymphedema with recurrent cellulitis. This looks very well controlled currently with only trace to 1+ edema currently. She does have dual incontinence and candidal skin infections under pannus and in ava/sacral areas. 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 However, today she has no open ulcers to her sacrum, buttock, thigh or coccyx. Preventative measures will be in place and I will order some miconazole powder and interdry to assist in moisture management/candidal issues. Past Medical History: Admits Diabetes Type II, Admits Heart Disease Smoking Status: Former Smoker Recreational Drug Use: No Alcohol Use: Denies Use Other Social Hx [facility] patient, DNR, DNI per history Review of Systems Other systems Unable to obtain due to mental status changes Exam Vital Signs Date Time Temp Pulse Resp B/P (MAP) Pulse Ox O2 Delivery O2 Flow Rate FiO2 10/09/22 07:25 36.9 82 29 102/40 (60) 100 NIV Bilevel 50.00 10/09/22 00:25 36 Capillary Refill : General Appearance: obese Neck: other (patient is not alert or arousable) Cardiovascular: other (1+ edema b/l LE) Respiratory: other (on BiPAP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: other (Patient not arousable) Skin: normal color, warm/dry There are no open wounds. Evidence of candidal skin infection and past MASD Results Laboratory Tests 10/08/22 19:13: White Blood Count 9.6, Red Blood Count 4.54, Hemoglobin 12.7, Hematocrit 40, Mean Corpuscular Volume 89, Mean Corpuscular Hemoglobin 28, Mean Corpuscular He moglobin Concent 32, Red Cell Distribution Width 13.2, Platelet Count 160, Mean Platelet Volume 9.7, Immature Granulocyte % (Auto) 0, Neutrophils (%) (Auto) 77H , Lymphocytes (%) (Auto) 12, Monocytes (%) (Auto) 9, Eosinophils (%) (Auto) 2, Basophils (%) (Auto) 0, Neutrophils # (Auto) 7.4, Lymphocytes # (Auto) 1.2, Monocytes # (Auto) 0.9, Eosinophils # (Auto) 0.1, Basophils # (Auto) 0.0, Immature Granulocyte # (Auto) 0.0, Erythrocyte Sedimentation Rate 31H, Prothrombin Time 13.9, INR Comment 1.0, Activated Partial Thromboplast Time 28, D-Dimer 2.03H, Sodium Level 141, Potassium Level 4.2, Chloride Level 106, Carbon Dioxide Level 27, Anion Gap 8, Blood Urea Nitrogen 35H, Creatinine 2.29H, Estimat Glomerular Filtration Rate 22, BUN/Creatinine Ratio 15, Glucose Level 224H, Lactic Acid Level 1.00, Calcium Level 12.4H, Corrected Calcium 13.0H, Magnesium Level 2.3, Total Bilirubin 0.3, Aspartate Amino Transf (AST/SGOT) 31, Alanine Aminotransferase (ALT/SGPT) 37, Alkaline Phosphatase 115, Total Creatine Kinase 21L, Creatine Kinase MB 0.7, Myoglobin 102.8H, Troponin I < 0.028, C- Reactive Protein High Sensitivity 1.97H, B-Type Natriuretic Peptide 90.4, Total Protein 7.3, Albumin 3.3, Influenza Type A (RT-PCR) Not Detected, Influenza Type B (RT-PCR) Not Detected, SARS-CoV-2 RNA (RT-PCR) Not Detected 10/08/22 19:24: Urine Color YELLOW, Urine Clarity SL CLOUDY, Urine pH 5.5, Urine Specific Gr avity 1.025H, Urine Protein TRACEH, Urine Glucose (UA) 3+H, Urine Ketones NE GATIVE, Urine Nitrite NEGATIVE, Urine Bilirubin NEGATIVE, Urine Urobilinogen 0.2, Urine Leukocyte Esterase 1+H, Urine RBC (Auto) 2+H, Urine RBC 10-25H, Urine WBC 25-50H, Urine Squamous Epithelial Cells NONE, Urine Crystals NONE, Urine Bacteria TRACE, Urine Casts PRESENT, Urine Hyaline Casts RARE, Urine Mucus NEGATIVE, Urine Culture Indicated YES 10/08/22 19:37: Blood Gas Puncture Site RT RADIAL, Blood Gas Patient Temperature 36.3, Arterial Blood pH 7.31*L, Arterial Blood Partial Pressure CO2 59H, Arterial Blood Partial Pressure O2 72L, Arterial Blood HCO3 29H, Arterial Blood Total CO2 31.3H, Arterial Blood Oxygen Saturation 95, Arterial Blood Base Excess 3.5H, Jai Test YES-POS, Blood Gas Ventilator Setting NO, Blood Gas Inspired Oxygen 15 L 10/08/22 22:05: Sodium Level 141, Potassium Level 4.6, Chloride Level 106, Carbon Dioxide Level 26, Anion Gap 9, Blood Urea Nitrogen 34H, Creatinine 2.29H, Estimat Glomerular Filtration Rate 22, BUN/Creatinine Ratio 15, Glucose Level 213H, Calcium Level 11.8H 10/08/22 23:15: Blood Gas Puncture Site RIGHT RADIAL, Blood Gas Patient Temperature 36.7, Arterial Blood pH 7.27*L, Arterial Blood Partial Pressure CO2 67H, Arterial Blood Partial Pressure O2 78L, Arterial Blood HCO3 30H, Arterial Blood Total CO2 31.8H, Arterial Blood Oxygen Saturation , Arterial Blood Base Excess 3.2H, Jai Test YES-POS, Blood Gas Ventilator Setting NO, Blood Gas Inspired Oxygen 50% BIPAP 10/08/22 23:43: Glucometer 179H 10/09/22 03:45: Blood Gas Puncture Site R RADIAL, Blood Gas Patient Temperature 37.2, Arterial Blood pH 7.32*L, Arterial Blood Partial Pressure CO2 61H, Arterial Blood Partial Pressure O2 69L, Arterial Blood HCO3 30H, Arterial Blood Total CO2 32.0H, Arterial Blood Oxygen Saturation 94, Arterial Blood Base Excess 4.4H, Jai Test YES-POS, Blood Gas Ventilator Setting NO, Blood Gas Inspired Oxygen 50% 10/09/22 04:47: White Blood Count 11.4H, Red Blood Count 4.10, Hemoglobin 11.4L, Hematocrit 37, Mean Corpuscular Volume 90, Mean Corpuscular Hemoglobin 28, Mean Corpuscular Hemoglobin Concent 31L, Red Cell Distribution Width 13.2, Platelet Count 135, Mean Platelet Volume 9.9, Immature Granulocyte % (Auto) 0, Neutrophils (%) (Auto) 84H, Lymphocytes (%) (Auto) 7L, Monocytes (%) (Auto) 8, Eosinophils (%) (Auto) 0, Basophils (%) (Auto) 0, Neutrophils # (Auto) 9.6H, Lymphocytes # (Auto) 0.8L, Monocytes # (Auto) 0.9, Eosinophils # (Auto) 0.0, Basophils # (Auto) 0.1, Immature Granulocyte # (Auto) 0.1, Neutrophils % (Manual) 88, Lymphocytes % (Manual) 7, Monocytes % (Manual) 3, Band Neutrophils 2, Blood Morphology Comment NORMAL, Sodium Level 140, Potassium Level 4.5, Chloride Level 106, Carbon Dioxide Level 23, Anion Gap 11, Blood Urea Nitrogen 34H, Creatinine 2.17H, Estimat Glomerular Filtration Rate 23, BUN/Creatinine Ratio 16, Glucose Level 257H, Calcium Level 10.9H Assessment/Plan/Dx Assessment: 1. h/o MASD 2. Immobility due to generalized weakness 3. Morbid obesity 4. Dual incontinence 5. lymphedema 6. Candidal skin infection Plan: 1. Cleanse daily. Apply miconazole powder and thick layer barrier ointment with Allevyn BFD 2. Barak daily and prn for soiling 3. Frequent positional changes as able with respiratory measures. DERRICK TSANG MD Oct 09, 2022 09:17
--- NOTE | 2022-10-09 09:31 | Speech Therapy Progress Note ---
Therapy Progress Note The clinician attempted the oropharyngeal swallowing evaluation at 0845. At this time, the patient's RN requested to contact RT to remove the patient from BiPAP for the evaluation. ST returned to the room for the evaluation at 0914. At this time, the patient was transferred from room 512 to CU5 and remained on BiPAP. The RN requested the clinician return at a later time to attempt the assessment due to the patient's necessity for continued BiPAP at this time. ST will re- attempt the evaluation later on this date if/when the patient displays respiratory stability and safety. The clinician asked the RN to contact her earlier if the patient displayed improvement prior to the clinician's follow up. DIGNA PIEDRA Oct 09, 2022 09:31
--- NOTE | 2022-10-09 09:45 | History & Physical-Hospitalist ---
History of Present Illness HPI/Chief Complaint Pt is a 72yoCF with a PMH of IDDMII, CKD, ESBl E coli UTI, HLD, HTN, morbid obesity, ANKIT, CVA, pAF, chronic respiratory failure who presented to the ER due to overall decline. She is unable to rpovide me any history. Her daughter is at bedside and is able to provide some. She was just admitted to the hospital last week due to UTI and was sent home on IV abx. Daughter states that earlier in the week she was near her baseline and able to talk and feed herself but then took a turn for the worse over the last day or two. This morning she is minimally responsive. She does open eyes and groan with significant verbal stimuli but she otherwise is quite somnolent. In the ER she was found to be hypoxic even on her baseline oxygen and was placed on BiPAP. Daughter confirms she would be ok with intubation if needed. She was admitted for further management of her encephalopathy and respiratory failure. Source: patient Date Seen 10/09/22 Time Seen by a Provider: 08:15 Attending Physician Andrea Durant MD PCP Admitting Physician: Thai Verdugo MD Attending Physician: Andrea Durant MD Referring Physician Date of Admission Oct 08, 2022 at 20:59 Home Medications & Allergies Home Medications Reviewed patient Home Medication Reconciliation performed by pharmacy medication reconciliations speech therapist technician and/or nursing. Patients Allergies have been reviewed. Allergies Allergies Coded Allergies sulfamethoxazole (Verified Allergy, Unknown, 10/13/17) trimethoprim (Verified Allergy, Unknown, 10/13/17) Past Rfoykvm-Ugwyqm-Flwwcj Hx Patient Social History Employed/Student: retired Tobacco Use?: No Smoking Status: Former Smoker Use of E-Cig and/or Vaping dev: No Substance use?: No Alcohol Use?: No Pt feels they are or have been: Unable to obtain Immunizations Up To Date First/Initial COVID19 Vaccinat: SEPTEMBER 19, 2020 Second COVID19 Vaccination Joseph: OCTOBER 09, 2020 Tetanus Booster (TDap): Unknown Hepatitis A: No Hepatitis B: No PED Vaccines UTD: No Seasonal Allergies Seasonal Allergies: No Current Status status: No Advance Directives: No Communicates: Verbally Primary Language: Bolivian Preferred Spoken Language: Bolivian Is interpretation needed?: No Past Medical History Surgeries: Joint Replacement, Nose, Orthopedic COPD Currently Using CPAP: No Currently Using BIPAP: No Atrial Fibrillation, Chronic Edema/Swelling, Coronary Artery Disease, High Cholesterol, Hypertension Neuropathy, Stroke [employer] History: Menopausal UTI-Chronic Gastroesophageal Reflux, Chronic Constipation, Hemorrhoids, Ulcer Arthritis Diabetes, Insulin dep Dysphagia Loss of Vision: Denies Hearing Impairment: Denies Sleep Difficulties, Anxiety, Depression Blood Disorders: No PMHx: IDDM Anemia HTN Depression Chronic Atrial Fibrillation 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 Family Medical History Completed stroke 19 FATHER G8 BROTHER Diabetes mellitus G8 BROTHER Hypertension 19 FATHER 19 MOTHER No Pertinent Family Hx Review of Systems Constitutional: see HPI Physical Exam Physical Exam Vital Signs Vital Signs - First Documented 10/08/22 10/08/22 19:04 22:22 Temp 36.3 Pulse 70 Resp 23 B/P (MAP) 169/85 (113) Pulse Ox 84 O2 Delivery Nasal Cannula O2 Flow Rate 4.00 FiO2 50 Capillary Refill : Height, Weight, BMI Height: 5'6.00" Weight: 118lbs. 0.5oz. 53.484056go; 42.66 BMI Method:Estimated General Appearance: Chronically ill, Obese, Other (somnolent bordering on lethargic) HEENT: PERRL/EOMI, Other (obscrued by BiPAP mask) Respiratory: Lungs Clear, No Accessory Muscle Use, Other (on BiPAP) Cardiovascular: Regular Rate, Rhythm, No Murmur Gastrointestinal: Normal Bowel Sounds, Non Tender, Soft Genital/Rectal: Other (catheter) Extremity: Pedal Edema, Swelling Neurologic/Psychiatric: Alert (with persistent verbal stimuli) Skin: Other (venous statis changes of lower extremities) Results Results/Procedures Labs Laboratory Tests 10/10/22 03:15 10/11/22 03:25 Patient resulted labs reviewed. Imaging: Reviewed Imaging Report Imaging [facility], [place] NAME: MIRIAM RODRIGUES [facility] REC#: [id number] PT STATUS: ADM IN : 1950 PHYSICIAN: NOELLE CLARK DO ADMIT DATE: 10/08/22/RADHA Signed Date of Exam:10/08/22 CHEST 1 VIEW, AP/PA ONLY INDICATION: Shortness of air. EXAMINATION: Chest 10/08/2022 COMPARISON: 08/28/2022 FINDINGS: There is cardiomegaly. Pulmonary vasculature appears unremarkable. There are no infiltrates or effusions. No pneumothorax. IMPRESSION: 1. No cardiopulmonary process. Dictated by: Dictated on workstation # [id number] Dict: 10/08/221927 Trans: 10/08/222227 CVB [id number] Interpreted by: CALIVN CORDOVA MD Electronically signed by: CALVIN CORDOVA MD 10/08/222227 [facility] [place] NAME: MIRIMA RODRIGUES [facility] REC#: [id number] PT STATUS: ADM IN : 1950 PHYSICIAN: NOELLE CLARK DO ADMIT DATE: 10/08/22/[facility] Signed Date of Exam:10/08/22 CT HEAD WO-R/O STROKE PROCEDURE: CT head wo r/o stroke. TECHNIQUE: Multiple contiguous axial images were obtained through the brain without the use of intravenous contrast. Auto Exposure Controls were utilized during the CT exam to meet ALARA standards for radiation dose reduction. INDICATION: Shortness of air, neurological deficits. EXAMINATION: CT brain without contrast 10/08/2022. FINDINGS: There are chronic changes in a periventricular deep white matter distribution. No superimposed acute hemorrhage or infarct appreciated. There is no mass, mass effect or midline shift. No hydrocephalus. There is no acute osseous abnormality. There is complete opacification of the visualized right maxillary sinus. IMPRESSION: Chronic findings, no acute intracranial process. Dictated by: Dictated on workstation # [id number] Dict: 10/08/222049 Trans: 10/08/222232 CVB [id number] Interpreted by: CALVIN CORDOVA MD Electronically signed by: CALVIN CORDOVA MD 10/08/222232 Assessment/Plan Admission Diagnosis Acute Respiratory Failure Admission Status: Inpatient Order (span 2 midnights) Reason for Inpatient Admission: see below Assessment and Plan Acute on Chronic Respiratory Failure ANKIT Baseline 2-3lpm per last note On BiPAP currently Will upgrade to ICU status given somnolence Discussed with daughter concerns regarding mentation on BiPAP- ok for intubation if needed TeleICU consulted, appreciate recs MAT protocol Encephalopathy UTI Likely due to sepsis Was just discharging from hospital on Ertapenem but report she was unable to receive it? Resume Merrem Await cultures CT head negative CKD Creatinine near baseline IDDMII BS elevated this AM but was on D5 Will switch to NS SSI HTN HLD pAF Morbid Obesity h/o DVT Home meds as appropriate DVT ppx: Heparin Diagnosis/Problems Diagnosis/Problems (1) Insulin dependent diabetes mellitus with complications Status: Chronic (2) BMI 40.0-44.9, adult Status: Chronic (3) Bedbound Status: Chronic (4) History of CVA (cerebrovascular accident) Status: Chronic (5) Chronic kidney disease Status: Chronic (6) ANKIT (obstructive sleep apnea) Status: Chronic (7) Paroxysmal atrial fibrillation Status: Chronic (8) Normocytic anemia Status: Chronic (9) Urinary tract infection Status: Acute (10) Sepsis Status: Resolved Resolution Date/Time: 02/05/21 @ 13:42 (11) DVT prophylaxis Status: Acute (12) Acute on chronic respiratory failure Status: Acute (13) Altered mental status Status: Acute (14) ESBL (extended spectrum beta-lactamase) producing bacteria infection Status: Acute (15) HTN (hypertension) Status: Chronic (16) HLD (hyperlipidemia) Status: Chronic MARÍA SAPP MD Oct 09, 2022 09:45
[2022-10-09] MEDS ORDERED: NS IV 1000 ML 1,000 ML ONE (09:47)
[2022-10-09 09:48] LABS: ABG OXYGEN SATURATION 88 % (94-100); ABG PCO2 55 MMHG (35-45); ABG PH 7.36 (7.37-7.43); ABG PO2 54 MMHG (79-93); ABG TCO2 31.9 MMOL/L (21.0-31.0)
[2022-10-09] MEDS: NS IV 1000 ML 1,000 ML IV SCH ×2 (09:49→19:29)
[2022-10-09 09:52] LABS: ALLENS TEST YES-POS; INSPIRED O2 40%; PATIENT TEMP 37.1; VENTILATOR NO
[2022-10-09] MEDS: MICONAZOLE 2% POWDER (DESENEX AF) 90 GM TOP SCH ×2 (10:38→20:29)
--- NOTE | 2022-10-09 10:44 | Tele-ICU Consult ---
History of Present Illness History of Present Illness Date Seen by Provider: Oct 09, 2022 Time Seen by Provider: 10:43 Date of Admission (Tele-ICU Physician , consultation as per request of PCP Service provided via interactive audio and video telecommunications E-CARE system to a patient admitted to ICU bed in [facility], [place]. Available chart/ vitals / labs / Images reviewed H&P is from ER notes Patient's information available about PMH, Shx, Fhx allergy reviewed inEMR. ROS as per chart and RN report Now in ICU, hemodynamically stable Video assessment done using teleICU camera, rest of exam as per RN Discussed with RN. Consultants: Hospital course: (10/08) 72F Admitted for AMS from [place]. Chronic UTI (just DC'd from hosp recently), acute on chronic renal failure, Decubitus ulcers right posterior thigh (10/09) TX to ICU d/t increased lethargy despite bipap and improving ABG A/P Acute resp failure ( on chronic hepercarbic and hypoxi resp failure) - BIPAP 16/8 40 % rr 25 tv 600 MV 16L- ABG improved - cont BIPAP for now with plan to re-assess tomorrow - cont nebs - as per RN - fill code ( with h.o DNI in past ) lethargy - CTH - neg 10/08, CO2 at baseline now on bipap - no NEW neuro-defiit , ( h/o CVA - left side wekness) - responds to stimulis , not communictes Yes/No UTI recent admission wit UTI - ecoli and and proteus , was TX with meropenem based on sens - now on cefepime - might be resistent to it - if deteriorate - change back to MErrem Hypotension - probaly due to infection - will cont hydration PRN ( ECHO 2018 EF 55% ) CKD - cr stable DM II - ISS h/o PAF s/p cardioversion April 2019, maintained on Cardizem and Multaq - ON HOLD NOW _ FOLLOW BP _ TO RESUME IF TOLERATES -"unable to tolerate oral anticoagulation due to recurrent GI bleed-" as per chart Anemia- stable - h/o GIB in past , no sourse on endoscopy h/o DVT in February 2019 -unable to tolerate oral anticoagulation due to recurrent GI bleed Lines : , (Central Line Necessity Reviewed) Aguiar: new 10/08 OG: Nutrition: npo Analgesia: Anxiety/ delirium VTE Prophylaxis: hepain sq Stress Ulcer Prophylaxis: pepcid Glycemic Control: Plans in collaboration with bedside consultants and IM MDs. Discussed with RN to reach out if any questions or concerns A total of 33 minutes of critical care time was devoted to this patient today, required to treat and/or prevent further deterioration of critical care condition ( as above ) . I am remotely monitoring this patient from another state. I am unable to do the bedside exam, and history/physical and pertinent information is taken from other notes in the computer and bedside staff. . Allergies and Home Medications Allergies Coded Allergies: sulfamethoxazole (Verified Allergy, Unknown, 10/13/17) trimethoprim (Verified Allergy, Unknown, 10/13/17) Home Medications Acetaminophen 500 Mg Tablet, 1,000 MG PO Q6H PRN for PAIN-MILD OR TEMPATURE, (Reported) Aspirin 81 Mg Tablet.dr, 81 MG PO BID, (Reported) Bethanechol Chloride 10 Mg Tablet, 10 MG PO BID, (Reported) Bisacodyl 10 Mg Supp.rect, 10 MG RC DAILY PRN for CONSTIPATION-4TH LINE, (Reported) Calcitriol 0.5 Mcg Capsule, 0.5 MCG PO DAILY, (Reported) Calcium Acetate 667 Mg Tablet, 667 MG PO DAILY, (Reported) Cholecalciferol (Vitamin D3) 125 Mcg Capsule, 125 MCG PO DAILY, (Reported) Cranberry Extract 500 Mg Tablet, 1,000 MG PO DAILY, (Reported) Dapagliflozin Propanediol 10 Mg Tablet, 10 MG PO DAILY, (Reported) Dextran 70/Hypromellose/Pf 0.1 %-0.3 % Droperette, 1 EACH OU UD PRN for DRY EYES, (Reported) Diltiazem HCl 240 Mg Cap.er.24h, 240 MG PO DAILY, (Reported) Docusate Sodium 100 Mg Capsule, 100 MG PO BID, (Reported) HOLD FOR LOOSE STOOLS Dronedarone HCl 400 Mg Tablet, 400 MG PO 0800,1730, (Reported) Dulaglutide 0.75 Mg/0.5 Ml Pen.injctr, 7.5 MG SQ WEEK, (Reported) Ertapenem Sodium 1 Gram Vial, 1 GM IV DAILY Prescribed by: GRIS COOK on 10/02/22 1300 Eyelid Cleanser Combination #3 1 Each Med..pad, 1 EACH OU UD PRN for EYELID IRRITATION, (Reported) Famotidine 20 Mg Tablet, 20 MG PO DAILY, (Reported) Ferrous Sulfate 325 Mg Tablet, 325 MG PO DAILY, (Reported) Fluticasone Propionate 9.9 Ml [place].susp, 2 SPRAY NSEACH DAILY, (Reported) Gabapentin 300 Mg Capsule, 300 MG PO 0800,1730, (Reported) Gluc Angulo/Chondro Angulo A/Vit C/Mn 1 Each Tablet, 2 TAB PO DAILY, (Reported) Guaifenesin 100 Mg/5 Ml Liquid, 10 ML PO Q4H PRN for COUGH/COLD/ALLERGY, (Reported) Hydroxyzine Pamoate 25 Mg Capsule, 25 MG PO HS, (Reported) Insulin Aspart 100 Unit/1 Ml Susp, 30 UNIT SQ TID, (Reported) Insulin Detemir 100 Unit/Ml (3 Ml) Insuln.pen, 36 UNIT SQ BID, (Reported) Ipratropium/Albuterol Sulfate 3 Ml Ampul.neb, 3 ML IH Q6H PRN for SHORTNESS OF BREATH, (Reported) Krill/Om-3/Dha/Epa/Phospho/Ast 500MG-86MG Capsule, 2 EACH PO DAILY, (Reported) L. Acidophilus/L.bulgaricus 1 Million Cell Tablet, 1 EACH PO DAILY, (Reported) Lidocaine 5 % Adh..patch, 1 PATCH TD DAILY, (Reported) APPLY TO RIGHT UPPER THIGH- APPLY IN THE AM AND REMOVE WITHIN 12 HOURS OF APPLICATION Magnesium Hydroxide 2,400 Mg/10 Ml Oral.susp, 10 ML PO DAILY PRN for CONSTIPATION-7TH LINE, (Reported) Melatonin 3 Mg Tablet, 3 MG PO HS, (Reported) Metoprolol Succinate 100 Mg Tab.er.24h, 100 MG PO DAILY, (Reported) HOLD FOR SYSTOLIC BP <100 AND HEART RATE <60 Miconazole Nitrate 10 Gm Powder, 1 APPLIC TOP BID, (Reported) APPLY TO GROIN AND UNDER BREASTS Nystatin 100,000 Unit/Ml Oral.susp, 15 ML PO QID, (Reported) START DATE 10-02-2022 FOR 7 DAYS- THIS WAS NOT STARTED PRIOR TO BEING ADMITTED Nystatin 100,000 Unit/Gram Cream..g., 1 APPLIC TOP DAILY, (Reported) APPLY UNDERNEATH BREASTS AND TO GROIN Sertraline HCl 50 Mg Tablet, 50 MG PO HS, (Reported) Tiotropium [place] 4 Gm Mist.inhal, 2 PUFF IH DAILY, (Reported) Zinc Amino Acid Chelate 50 Mg Tablet, 50 MG PO DAILY, (Reported) Past Medical/Social/Family Hx Patient Social History Tobacco Use?: No Smoking Status: Former Smoker Use of E-Cig and/or Vaping dev: No Substance use?: No Alcohol Use?: No Pt stated abuse/neglect: Unable to obtain Immunizations Up To Date Influenza Vaccine Up-to-Date: No; Not Current First/Initial COVID19 Vaccinat: SEPTEMBER 19, 2020 Second COVID19 Vaccination Joseph: OCTOBER 09, 2020 Tetanus Booster (TDap): Unknown Hepatitis A: No Hepatitis B: No TB Skin Test: None Current Status status: No Advance Directives: No Communicates: Verbally Primary Language: Sammarinese Preferred Spoken Language: Sammarinese Is interpretation needed?: No Past Medical History PMHx: IDDM Anemia HTN Depression Chronic Atrial Fibrillation 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 Review of Systems Constitutional: see HPI Focused Exam Lactate Level 10/08/22 19:13: Lactic Acid Level 1.00 Height, Weight, BMI Height: 5'6.00" Weight: 118lbs. 0.5oz. 53.260466vl; 42.66 BMI Method:Estimated Time of Focused Exam: 20:30 Exam Exam Patient acknowledged, consented, and participated in this virtual visit which was conducted using real time audio/video Vital Signs Date Time Temp Pulse Resp B/P (MAP) Pulse Ox O2 Delivery O2 Flow Rate FiO2 10/09/22 10:00 95 27 110/49 (69) 92 NIV Bilevel 40.00 10/09/22 09:25 37.1 95 21 107/53 (71) 95 NIV Bilevel 40.00 10/09/22 08:00 NIV Bilevel 40 10/09/22 07:25 36.9 82 29 102/40 (60) 100 NIV Bilevel 50.00 10/09/22 07:23 77 26 100 50.00 10/09/22 07:00 82 10/09/22 04:00 87 25 117/49 (71) 97 NIV Bilevel 50.00 10/09/22 03:39 37.2 10/09/22 02:39 86 26 96 50.00 10/09/22 01:06 36.8 10/09/22 01:00 89 10/09/22 00:25 36.3 70 84 36 10/09/22 00:00 80 24 120/78 (92) 92 NIV Bilevel 50.00 10/08/22 22:39 73 21 92 50.00 10/08/22 22:22 91 NIV Bilevel 50 10/08/22 22:08 36.7 69 21 142/66 (91) 91 NIV Bilevel 50.00 10/08/22 21:43 71 10/08/22 21:33 70 25 94 50.00 10/08/22 21:00 36.3 65 18 133/68 NIV Bilevel 10/08/22 19:30 65 24 92 100.00 10/08/22 19:20 90 OxyMask 15.00 10/08/22 19:10 OxyMask 15.00 10/08/22 19:07 88 OxyMask 12.00 10/08/22 19:04 36.3 70 23 169/85 (113) 84 Nasal Cannula 4.00 I & O 10/09/22 07:00 Intake Total 50 ml Output Total 1225 ml Balance -1175 ml Height & Weight Height: 5'6.00" Weight: 118lbs. 0.5oz. 53.551762dd; 42.66 BMI Method:Estimated General Appearance: No Apparent Distress, Obese (MORBIDLY OBESE), Other (LETHARGIC, MILDLY DYSPNEIC--RESPIRATIONS SHALLOW, MILDLY LABORED, WITH LOTS OF UPPER AIRWAY NOISE. ) HEENT: PERRL/EOMI Respiratory: Other (UPPER AIRWAY NOISE) Cardiovascular: Regular Rate, Rhythm Extremity: Pedal Edema (DIFFICULT TO DETERMIE DEGREE OF EDEMA DUE TO BODY HABITUS. CHRONIC VENOUS STASIS CHANGES. 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: Other (AWAKE, BUT LETHARGIC. ORIENTED TO SELF, APPEARS TO KNOW SHE IS IN HOSPITAL. BUT UNABLE TO DETERMINE FURTHER ORIENTATION AT THIS TIME. PT WITH KNOWN LEFT SIDE WEAKNESS FROM PRIOR CVA. ) Skin: Normal Color, Warm/Dry, Other (PT WITH KNOWN DECUBITUS ULCERS TO RIGHT POSTERIOR THIGH/BUTTOCKS AREA. ) Results Lab Laboratory Tests 10/08/22 19:13 10/08/22 22:05 10/09/22 04:47 Assessment/Plan Assessment/Plan 1 ARASH KAUR MD Oct 09, 2022 10:43
[2022-10-09] MEDS: MEROPENEM 500 MG/NS 100 ML IVPB IV SCH ×4 (11:33→18:17)
[2022-10-09] MEDS ORDERED: ERTA1VIA4 IV (11:58)
[2022-10-09] MEDS ORDERED: FURO20TA4 PO (11:58)
[2022-10-09] MEDS ORDERED: ACETAMINOPHEN 650 MG SUPP (TYLENOL) PR PRN (20:15)
[2022-10-09] MEDS ORDERED: ACETAMINOPHEN 650 MG SUPP (TYLENOL) ONE (20:26)
[2022-10-09] MEDS ORDERED: NS IV 500 ML 500 ML IV PRN (21:30)
[2022-10-09] MEDS: RT-ALBUTEROL SULF 2.5 MG/3 ML PRE-MIX VIAL INH SCH (23:17)
[2022-10-10] VITALS (30 sets, daily range): BP systolic 121–185; BP diastolic 41–96
[2022-10-10] MEDS: RT-ALBUTEROL SULF 2.5 MG/3 ML PRE-MIX VIAL INH SCH ×6 (02:05→22:06)
[2022-10-10] MEDS: MEROPENEM 500 MG/NS 100 ML IVPB IV SCH ×6 (02:07→18:36)
[2022-10-10 03:12] LABS: ABG BASE EXCESS 0.3 MMOL/L (-2.5-2.5); ABG OXYGEN SATURATION 92 % (94-100); ABG PCO2 53 MMHG (35-45); ABG PO2 62 MMHG (79-93); ABG TCO2 27.4 MMOL/L (21.0-31.0)
[2022-10-10 03:14] LABS: ABG PH 7.31 (7.37-7.43); ALLENS TEST YES-POS; INSPIRED O2 40%; PATIENT TEMP 37.2; VENTILATOR NO
[2022-10-10 03:57] LABS: BASOPHILS # (AUTO) 0.1 10^3/uL (0.0-0.1); BASOPHILS % (AUTO) 0 % (0-10); EOSINOPHILS % (AUTO) 0 % (0-10); HEMATOCRIT 40 % (35-52); HEMOGLOBIN 11.9 g/dL (11.5-16.0); LYMPHOCYTES # (AUTO) 1.6 10^3/uL (1.0-4.0); LYMPHOCYTES % (AUTO) 10 % (12-44); MEAN CORPUSCULAR HEMOGLOBIN 28 pg (25-34); MEAN CORPUSCULAR HGB CONC 30 g/dL (32-36); MEAN CORPUSCULAR VOLUME 93 fL (80-99); MEAN PLATELET VOLUME 10.5 fL (9.0-12.2); MONOCYTES # (AUTO) 1.7 10^3/uL (0.0-1.0); MONOCYTES % (AUTO) 10 % (0-12); NEUTROPHILS % (AUTO) 79 % (42-75); PLATELET COUNT 113 10^3/uL (130-400); WHITE BLOOD COUNT 16.6 10^3/uL (4.3-11.0)
[2022-10-10 04:05] LABS: ALBUMIN 3.1 GM/DL (3.2-4.5)
[2022-10-10 04:06] LABS: POTASSIUM 4.2 MMOL/L (3.6-5.0)
[2022-10-10 04:08] LABS: TOTAL PROTEIN 6.9 GM/DL (6.4-8.2)
[2022-10-10 04:10] LABS: BILIRUBIN,TOTAL 0.4 MG/DL (0.1-1.0)
[2022-10-10 04:12] LABS: CREATININE SERUM 2.65 MG/DL (0.60-1.30)
[2022-10-10 04:14] LABS: MAGNESIUM 2.2 MG/DL (1.6-2.4)
[2022-10-10] MEDS: POTASSIUM CL 10MEQ/50ML IVPB 50 ML IV SCH (05:29)
[2022-10-10] MEDS: NS IV 1000 ML 1,000 ML IV SCH ×2 (05:29→16:26)
[2022-10-10] MEDS: inSUlin ASPART (NovoLOG) 1 UNIT/0.01 ML (CHARGE PER UNIT) SC SCH ×4 (05:29→20:37)
[2022-10-10] MEDS: MAGNESIUM 1 GM/100 ML IVPB 100 ML IV SCH (05:29)
[2022-10-10] MEDS: KCL 20 MEQ TAB (K-DUR) PO SCH (05:30)
[2022-10-10] MEDS: LABETALOL HCL 20 MG/4 ML VIAL IV SCH ×3 (06:36→18:36)
[2022-10-10 06:52] LABS: ABG BASE EXCESS 4.1 MMOL/L (-2.5-2.5); ABG OXYGEN SATURATION 94 % (94-100); ABG PCO2 54 MMHG (35-45); ABG PH 7.36 (7.37-7.43); ABG PO2 66 MMHG (79-93)
[2022-10-10 06:53] LABS: ALLENS TEST YES-POS; INSPIRED O2 40%; PATIENT TEMP 36.8; VENTILATOR NO
[2022-10-10] MEDS: MICONAZOLE 2% POWDER (DESENEX AF) 90 GM TOP SCH ×2 (08:13→20:07)
--- NOTE | 2022-10-10 08:19 | Progress Note - Hospitalist ---
Subjective HPI/CC On Admission Date Seen by Provider: Oct 10, 2022 Pt is a 72yoCF with a PMH of IDDMII, CKD, ESBl E coli UTI, HLD, HTN, morbid obesity, ANKIT, CVA, pAF, chronic respiratory failure who presented to the ER due to overall decline. She is unable to rpovide me any history. Her daughter is at bedside and is able to provide some. She was just admitted to the hospital last week due to UTI and was sent home on IV abx. Daughter states that earlier in the week she was near her baseline and able to talk and feed herself but then took a turn for the worse over the last day or two. This morning she is minimally responsive. She does open eyes and groan with significant verbal stimuli but she otherwise is quite somnolent. In the ER she was found to be hypoxic even on her baseline oxygen and was placed on BiPAP. Daughter confirms she would be ok with intubation if needed. She was admitted for further management of her encephalopathy and respiratory failure. Subjective/Events-last exam Pt more alert today. Still on BiPAP but wakes up more easily. Asking for food and a drink. No other complaints. No family at bedside. Focused Exam Lactate Level 10/08/22 19:13: Lactic Acid Level 1.00 Time of Focused Exam: 20:30 Objective Exam Vital Signs Vital Signs Date Time Temp Pulse Resp B/P (MAP) Pulse Ox O2 Delivery O2 Flow Rate FiO2 10/10/22 08:00 111 31 154/95 (120) 96 NIV Bilevel 40.00 10/10/22 07:39 36.6 10/10/22 03:39 40 Capillary Refill : General Appearance: No Apparent Distress, Chronically ill, Obese Respiratory: No Crackles; Decreased Breath Sounds; No Wheezing; Other (on BiPAP) Cardiovascular: Regular Rate, Rhythm, No Murmur Gastrointestinal: Normal Bowel Sounds Neurologic/Psychiatric: Alert, Other (answered a few questions appropriately) Results/Procedures Lab Laboratory Tests 10/10/22 03:15 Patient resulted labs reviewed. Imaging: Reviewed Imaging Report Assessment/Plan Assessment and Plan Assess & Plan/Chief Complaint Acute on Chronic Respiratory Failure ANKIT Baseline 2-3lpm per last note On BiPAP currently, hope to trial off today TeleICU consulted, appreciate recs MAT protocol Encephalopathy UTI Likely due to sepsis Was just discharging from hospital on Ertapenem but report she was unable to receive it at facility? Continue Merrem Cultures NGTD CT head negative Leukocytosis up today- will trend Did not receive steroids Clinically improving though so will no adjust abx but if worsens or fevers will likely add Vanc to cover for gram positives CKD Creatinine up slightly today Adequate UOP and K WNL so trend for now IDDMII BS continues to be elevated SSI, increase scale and add Levemir as BS consistently in mid 200s HTN HLD pAF Morbid Obesity h/o DVT Home meds as appropriate DVT ppx: Heparin Diagnosis/Problems Diagnosis/Problems (1) Insulin dependent diabetes mellitus with complications Status: Chronic (2) BMI 40.0-44.9, adult Status: Chronic (3) Bedbound Status: Chronic (4) History of CVA (cerebrovascular accident) Status: Chronic (5) Chronic kidney disease Status: Chronic (6) ANKIT (obstructive sleep apnea) Status: Chronic (7) Paroxysmal atrial fibrillation Status: Chronic (8) Normocytic anemia Status: Chronic (9) Urinary tract infection Status: Acute (10) Sepsis Status: Resolved Resolution Date/Time: 02/05/21 @ 1:42 pm (11) DVT prophylaxis Status: Acute (12) Acute on chronic respiratory failure Status: Acute (13) Altered mental status Status: Acute (14) ESBL (extended spectrum beta-lactamase) producing bacteria infection Status: Acute (15) HTN (hypertension) Status: Chronic (16) HLD (hyperlipidemia) Status: Chronic MARÍA SAPP MD Oct 10, 2022 8:19 am
[2022-10-10] MEDS ORDERED: FAMOTIDINE 20MG/2ML IV (PEPCID) IVP SCH (09:00)
--- NOTE | 2022-10-10 09:25 | Tele-ICU Progress Note ---
Subjective Date Seen by a Provider: Oct 10, 2022 Subjective/Events-last exam This virtual visit was conducted using real time audio/video. Thank you for asking us to see this patient for respiratory insufficiency due to AECOPD, ANKIT. Recent events: Moved to ICU 10/09 due to increased lethargy. PE: morbid obesity. VSS. O2 sat 96% on BiPAP 16/8/40%. HEENT: No obvious masses, adenopathy or JVD. Chest: clear to auscultation, diminished. CV: RRR S1 S2 No murmur or added sounds. Abd: Non-tender. Bowel sounds Y. : Unremarkable. Aguiar Y. AUTOMATION TECHNICIAN/psychiatric: Grossly intact. No obvious focal findings. Extremities: 1+ edema. Capillary refill < 3 seconds. Skin: unremarkable. Results: Elevated WCC 16.6, BUN 43, Craet 2.65. AB.36/54/66 0n 40%. CXR: clear sandra. Available chart/ vitals / labs / images reviewed. Video assessment done using teleICU camera, rest of exam as per RN. A/P: Respiratory insufficiency: Continue present management with BiPAP, Duonebs. Monitor for increasing oxygenation needs and/or need for intubation. Critical Care: critically ill patient. Cont. Pepcid, heparin, Labet., SSI. Discussed with RN MARICEL. Asked RN to reach out to eICU if any questions or concerns later. Time spent with patient/coordination of care with other health professionals (mins): 20 Sepsis Event Evaluation Height, Weight, BMI Height: 5'6.00" Weight: 118lbs. 0.5oz. 53.532133ca; 42.66 BMI Method:Estimated Focused Exam Lactate Level 10/08/22 19:13: Lactic Acid Level 1.00 Time of Focused Exam: 20:30 Exam Exam Patient acknowledged, consented, and participated in this virtual visit which was conducted using real time audio/video Vital Signs Date Time Temp Pulse Resp B/P (MAP) Pulse Ox O2 Delivery O2 Flow Rate FiO2 10/10/22 08:00 111 31 154/95 (120) 96 NIV Bilevel 40.00 10/10/22 07:39 36.6 10/10/22 07:10 110 25 97 40.00 10/10/22 07:00 111 10/10/22 07:00 109 11 149/75 (98) 96 NIV Bilevel 40.00 10/10/22 06:00 121 27 185/77 (113) 98 NIV Bilevel 40.00 10/10/22 05:00 117 26 172/65 (100) 99 NIV Bilevel 40.00 10/10/22 04:06 120 26 164/80 (108) 97 NIV Bilevel 40.00 10/10/22 03:40 37.2 10/10/22 03:39 96 NIV Bilevel 40 10/10/22 03:00 124 23 166/42 (83) 97 NIV Bilevel 40.00 10/10/22 02:05 117 25 96 40.00 10/10/22 02:00 111 23 157/69 (98) 100 NIV Bilevel 40.00 10/10/22 01:00 111 10/10/22 01:00 111 23 156/69 (98) 100 NIV Bilevel 40.00 10/10/22 00:00 112 29 137/53 (81) 100 NIV Bilevel 40.00 10/09/22 23:35 92 NIV Bilevel 40 10/09/22 23:18 115 31 92 40.00 10/09/22 23:15 37.5 10/09/22 23:00 110 25 138/56 (83) 92 NIV Bilevel 40.00 10/09/22 22:00 112 30 134/54 (80) 93 NIV Bilevel 40.00 10/09/22 21:05 112 28 132/47 (75) 92 NIV Bilevel 40.00 10/09/22 20:00 36.8 10/09/22 20:00 116 28 137/59 (85) 95 NIV Bilevel 40.00 10/09/22 19:50 98 NIV Bilevel 40 10/09/22 19:00 112 32 144/71 (95) 97 NIV Bilevel 40.00 10/09/22 19:00 112 10/09/22 19:00 37.2 NIV Bilevel 40.00 10/09/22 18:54 103 32 98 40.00 10/09/22 18:00 106 31 145/64 (84) 94 NIV Bilevel 40.00 10/09/22 17:00 105 30 149/59 (89) 95 NIV Bilevel 40.00 10/09/22 16:38 36.8 10/09/22 16:00 104 25 143/62 (89) 96 NIV Bilevel 40.00 10/09/22 16:00 NIV Bilevel 40 10/09/22 15:00 93 28 129/56 (78) 98 NIV Bilevel 40.00 10/09/22 14:49 94 26 97 40.00 10/09/22 14:00 92 30 133/56 (77) 96 NIV Bilevel 40.00 10/09/22 13:00 96 32 137/56 (82) 96 NIV Bilevel 40.00 10/09/22 12:45 95 10/09/22 12:11 36.2 10/09/22 12:00 NIV Bilevel 40 10/09/22 12:00 92 31 135/54 (81) 95 NIV Bilevel 40.00 10/09/22 11:38 90 23 95 40.00 10/09/22 11:00 91 29 131/63 (85) 94 NIV Bilevel 40.00 10/09/22 10:00 95 27 110/49 (69) 92 NIV Bilevel 40.00 10/09/22 09:25 37.1 95 21 107/53 (71) 95 NIV Bilevel 40.00 I & O 10/10/22 07:00 Intake Total 2150 ml Output Total 1225 ml Balance 925 ml Height & Weight Height: 5'6.00" Weight: 118lbs. 0.5oz. 53.168636ar; 42.66 BMI Method:Estimated General Appearance: No Apparent Distress, Chronically ill, Obese HEENT: PERRL/EOMI, Other (obscrued by BiPAP mask) Respiratory: No Crackles; Decreased Breath Sounds; No Wheezing; Other (on BiPAP) Cardiovascular: Regular Rate, Rhythm, No Murmur Extremity: Pedal Edema, Swelling Neurologic/Psychiatric: Alert, Other (answered a few questions appropriately) Skin: Other (venous statis changes of lower extremities) Results Lab Laboratory Tests 10/08/22 19:13 10/08/22 22:05 10/09/22 04:47 10/10/22 03:15 Assessment/Plan Assessment/Plan See free text Critical Care: Critically Ill Patient RALEIGH POLANCO MD Oct 10, 2022 09:25
[2022-10-10] MEDS: ASPIRIN E.C. 81 MG (ECOTRIN) TAB PO SCH ×2 (09:30→19:28)
[2022-10-10] MEDS: FAMOTIDINE 20 MG (PEPCID) TABLET PO SCH (09:30)
[2022-10-10] MEDS: DRONEDARONE 400 MG TABLET PO SCH ×2 (09:30→17:30)
[2022-10-10] MEDS: DOCUSATE SODIUM 100 MG (COLACE) CAP PO SCH ×2 (09:30→19:28)
[2022-10-10] MEDS: LACTOBACILLUS ACIDOPHILUS (PROBIOTIC) CAPSULE PO SCH (09:30)
[2022-10-10] MEDS: LIDOCAINE 4% (SALONPAS) PATCH TOP SCH (11:54)
[2022-10-10] MEDS: ACETAMINOPHEN 650 MG SUPP (TYLENOL) PR PRN (11:58)
[2022-10-10] MEDS: SERTRALINE 50 MG (ZOLOFT) TABLET PO SCH (19:28)
[2022-10-10] MEDS: LIDOCAINE PATCH REMOVAL TP SCH (20:07)
[2022-10-11] VITALS (30 sets, daily range): BP systolic 103–140; BP diastolic 40–96
[2022-10-11] MEDS: LABETALOL HCL 20 MG/4 ML VIAL IV SCH ×5 (00:49→23:06)
[2022-10-11] MEDS: NS IV 1000 ML 1,000 ML IV SCH (01:56)
[2022-10-11] MEDS: MEROPENEM 500 MG/NS 100 ML IVPB IV SCH ×6 (02:00→18:48)
[2022-10-11] MEDS: KCL 20 MEQ TAB (K-DUR) PO SCH (02:00)
[2022-10-11] MEDS: RT-ALBUTEROL SULF 2.5 MG/3 ML PRE-MIX VIAL INH SCH ×6 (02:37→22:50)
[2022-10-11 03:44] LABS: EOSINOPHILS % (AUTO) 0 % (0-10); HEMOGLOBIN 10.7 g/dL (11.5-16.0)
[2022-10-11 03:46] LABS: BASOPHILS % (AUTO) 0 % (0-10); HEMATOCRIT 35 % (35-52); LYMPHOCYTES % (AUTO) 8 % (12-44); MEAN CORPUSCULAR HEMOGLOBIN 28 pg (25-34); MEAN CORPUSCULAR HGB CONC 31 g/dL (32-36); MEAN CORPUSCULAR VOLUME 90 fL (80-99); MEAN PLATELET VOLUME 10.5 fL (9.0-12.2); MONOCYTES # (AUTO) 1.1 10^3/uL (0.0-1.0); MONOCYTES % (AUTO) 9 % (0-12); NEUTROPHILS # (AUTO) 10.2 10^3/uL (1.8-7.8); NEUTROPHILS % (AUTO) 81 % (42-75); PLATELET COUNT 128 10^3/uL (130-400); WHITE BLOOD COUNT 12.5 10^3/uL (4.3-11.0)
[2022-10-11 04:02] LABS: ALBUMIN 2.6 GM/DL (3.2-4.5); POTASSIUM 3.8 MMOL/L (3.6-5.0)
[2022-10-11 04:04] LABS: CALCIUM 10.4 MG/DL (8.5-10.1)
[2022-10-11 04:05] LABS: TOTAL PROTEIN 6.3 GM/DL (6.4-8.2)
[2022-10-11 04:07] LABS: BILIRUBIN,TOTAL 0.4 MG/DL (0.1-1.0)
[2022-10-11 04:08] LABS: PHOSPHORUS 1.6 MG/DL (2.3-4.7)
[2022-10-11 04:09] LABS: CREATININE SERUM 2.24 MG/DL (0.60-1.30)
[2022-10-11 04:12] LABS: MAGNESIUM 2.2 MG/DL (1.6-2.4)
[2022-10-11] MEDS: POTASSIUM CL 10MEQ/50ML IVPB 50 ML IV SCH (04:13)
[2022-10-11] MEDS: inSUlin ASPART (NovoLOG) 1 UNIT/0.01 ML (CHARGE PER UNIT) SC SCH ×4 (04:13→20:14)
[2022-10-11] MEDS: MAGNESIUM 1 GM/100 ML IVPB 100 ML IV SCH (05:01)
--- NOTE | 2022-10-11 08:11 | Tele-ICU Progress Note ---
Progress Note video rounds completed 72 y/o female admitted with UTI and decubiti and acute on chronic respiratory failure from [place] Curent[place] on BIPAP 16/, 45% PE: HR: 102 O2 sat: 93% BP: 123/47 On meropenam for UTI IMP: sepsis secondary to UTI and decubitus ulcers Plan: continue antibiotics and Resp support Focused Exam Lactate Level 10/08/22 19:13: Lactic Acid Level 1.00 Height, Weight, BMI Height: 5'6.00" Weight: 118lbs. 0.5oz. 53.492991ik; 42.66 BMI Method:Estimated Time of Focused Exam: 20:30 Labs Laboratory Tests 10/11/22 03:25 Results Results/Procedures Labs Laboratory Tests 10/10/22 03:15 10/11/22 03:25 Patient resulted labs reviewed. Imaging: Reviewed Imaging Report Results Labs Labs Laboratory Tests 10/10/22 11:30: Glucometer 258H 10/10/22 17:33: Glucometer 214H 10/10/22 20:31: Glucometer 217H 10/11/22 03:25: White Blood Count 12.5H, Red Blood Count 3.89, Hemoglobin 10.7L, Hematocrit 35, Mean Corpuscular Volume 90, Mean Corpuscular Hemoglobin 28, Mean Corpuscular Hemoglobin Concent 31L, Red Cell Distribution Width 13.6, Platelet Count 128L, Mean Platelet Volume 10.5, Immature Granulocyte % (Auto) 2, Neutrophils (%) (Auto) 81H, Lymphocytes (%) (Auto) 8L, Monocytes (%) (Auto) 9, Eosinophils (%) (Auto) 0, Basophils (%) (Auto) 0, Neutrophils # (Auto) 10.2H, Lymphocytes # (Auto) 1.0, Monocytes # (Auto) 1.1H, Eosinophils # (Auto) 0.0, Basophils # (Auto) 0.0, Immature Granulocyte # (Auto) 0.2H, Percent Immature Platelet Fraction 3.7, Sodium Level 151H, Potassium Level 3.8, Chloride Level 118H, Carbon Dioxide Level 22, Anion Gap 11, Blood Urea Nitrogen 37H, Creatinine 2.24H , Estimat Glomerular Filtration Rate 23, BUN/Creatinine Ratio 17, Glucose Level 173H, Calcium Level 10.4H, Corrected Calcium 11.5H, Phosphorus Level 1.6L, Magnesium Level 2.2, Total Bilirubin 0.4, Aspartate Amino Transf (AST/SGOT) 17, Alanine Aminotransferase (ALT/SGPT) 19, Alkaline Phosphatase 88, Total Protein 6.3L, Albumin 2.6L Microbiology 10/08/22 Blood Culture - Preliminary, Resulted No growth 10/08/22 Urine Culture - Final, Complete NO GROWTH LUL HERNANDEZ MD Oct 11, 2022 08:11
[2022-10-11] MEDS: LIDOCAINE 4% (SALONPAS) PATCH TOP SCH (09:45)
[2022-10-11] MEDS: DRONEDARONE 400 MG TABLET PO SCH ×3 (10:10→17:53)
[2022-10-11] MEDS: LACTOBACILLUS ACIDOPHILUS (PROBIOTIC) CAPSULE PO SCH (10:10)
[2022-10-11] MEDS: DOCUSATE SODIUM 100 MG (COLACE) CAP PO SCH ×2 (10:11→20:14)
[2022-10-11] MEDS: ASPIRIN E.C. 81 MG (ECOTRIN) TAB PO SCH ×3 (10:11→20:14)
[2022-10-11] MEDS: MICONAZOLE 2% POWDER (DESENEX AF) 90 GM TOP SCH ×2 (10:11→20:15)
[2022-10-11] MEDS: FAMOTIDINE 20 MG (PEPCID) TABLET PO SCH (10:11)
--- NOTE | 2022-10-11 10:12 | Progress Note - Hospitalist ---
Subjective HPI/CC On Admission Date Seen by Provider: Oct 11, 2022 Pt is a 72yoCF with a PMH of IDDMII, CKD, ESBl E coli UTI, HLD, HTN, morbid obesity, ANKIT, CVA, pAF, chronic respiratory failure who presented to the ER due to overall decline. She is unable to rpovide me any history. Her daughter is at bedside and is able to provide some. She was just admitted to the hospital last week due to UTI and was sent home on IV abx. Daughter states that earlier in the week she was near her baseline and able to talk and feed herself but then took a turn for the worse over the last day or two. This morning she is minimally responsive. She does open eyes and groan with significant verbal stimuli but she otherwise is quite somnolent. In the ER she was found to be hypoxic even on her baseline oxygen and was placed on BiPAP. Daughter confirms she would be ok with intubation if needed. She was admitted for further management of her encephalopathy and respiratory failure. Subjective/Events-last exam Pt laying in bed on BiPAP. No complaints but drowsy. No family at bedside. RN reports patient more awake today than she has been. Focused Exam Lactate Level 10/08/22 19:13: Lactic Acid Level 1.00 Time of Focused Exam: 20:30 Objective Exam Vital Signs Vital Signs Date Time Temp Pulse Resp B/P (MAP) Pulse Ox O2 Delivery O2 Flow Rate FiO2 10/11/22 09:00 101 32 133/40 (92) 92 NIV Bilevel 45.00 10/11/22 08:14 36.7 10/11/22 08:00 40 Capillary Refill : General Appearance: Chronically ill, Obese Respiratory: Lungs Clear, No Accessory Muscle Use Cardiovascular: Regular Rate, Rhythm, No Murmur Extremity: Pedal Edema Neurologic/Psychiatric: Alert, Other (drowsy) Results/Procedures Lab Laboratory Tests 10/11/22 03:25 Patient resulted labs reviewed. Imaging: Reviewed Imaging Report Assessment/Plan Assessment and Plan Assess & Plan/Chief Complaint Acute on Chronic Respiratory Failure ANKIT Baseline 2-3lpm per last note On BiPAP currently, was not off yesterday- trial off today if able TeleICU consulted, appreciate recs MAT protocol Encephalopathy UTI Likely due to sepsis Continue Merrem Cultures here with NGTD CT head negative Leukocytosis trending down CKD Creatinine back down today UOP better today IDDMII BS improved this AM with levemir- fasting 173 SSI HTN HLD pAF Morbid Obesity h/o DVT Home meds as appropriate DVT ppx: Heparin Critical Care Critically Ill Patient Diagnosis/Problems Diagnosis/Problems (1) Insulin dependent diabetes mellitus with complications Status: Chronic (2) BMI 40.0-44.9, adult Status: Chronic (3) Bedbound Status: Chronic (4) History of CVA (cerebrovascular accident) Status: Chronic (5) Chronic kidney disease Status: Chronic (6) ANKIT (obstructive sleep apnea) Status: Chronic (7) Paroxysmal atrial fibrillation Status: Chronic (8) Normocytic anemia Status: Chronic (9) Urinary tract infection Status: Acute (10) Sepsis Status: Resolved Resolution Date/Time: 02/05/21 @ 13:42 (11) DVT prophylaxis Status: Acute (12) Acute on chronic respiratory failure Status: Acute (13) Altered mental status Status: Acute (14) ESBL (extended spectrum beta-lactamase) producing bacteria infection Status: Acute (15) HTN (hypertension) Status: Chronic (16) HLD (hyperlipidemia) Status: Chronic MARÍA SAPP MD Oct 11, 2022 10:12
[2022-10-11] MEDS: 1/2 NS IV SOLUTION 1,000 ML IV SCH ×2 (11:01→20:10)
[2022-10-11] MEDS: SERTRALINE 50 MG (ZOLOFT) TABLET PO SCH (20:14)
[2022-10-11] MEDS: LIDOCAINE PATCH REMOVAL TP SCH (20:15)
[2022-10-12] VITALS (26 sets, daily range): BP systolic 92–156; BP diastolic 44–82
[2022-10-12] MEDS: MEROPENEM 500 MG/NS 100 ML IVPB IV SCH ×4 (02:36→11:35)
[2022-10-12] MEDS: RT-ALBUTEROL SULF 2.5 MG/3 ML PRE-MIX VIAL INH SCH ×6 (02:53→22:10)
[2022-10-12] MEDS: POTASSIUM CL 10MEQ/50ML IVPB 50 ML IV SCH (06:01)
[2022-10-12] MEDS: MAGNESIUM 1 GM/100 ML IVPB 100 ML IV SCH (06:02)
[2022-10-12] MEDS: KCL 20 MEQ TAB (K-DUR) PO SCH (06:02)
[2022-10-12] MEDS: LABETALOL HCL 20 MG/4 ML VIAL IV SCH ×2 (06:02→13:21)
[2022-10-12] MEDS: 1/2 NS IV SOLUTION 1,000 ML IV SCH (06:02)
[2022-10-12 06:20] LABS: BASOPHILS % (AUTO) 0 % (0-10); EOSINOPHILS # (AUTO) 0.1 10^3/uL (0.0-0.3); EOSINOPHILS % (AUTO) 1 % (0-10); HEMATOCRIT 34 % (35-52); HEMOGLOBIN 10.3 g/dL (11.5-16.0); LYMPHOCYTES # (AUTO) 0.8 10^3/uL (1.0-4.0); LYMPHOCYTES % (AUTO) 8 % (12-44); MEAN CORPUSCULAR HEMOGLOBIN 28 pg (25-34); MEAN CORPUSCULAR HGB CONC 30 g/dL (32-36); MEAN CORPUSCULAR VOLUME 91 fL (80-99); MEAN PLATELET VOLUME 10.7 fL (9.0-12.2); MONOCYTES # (AUTO) 0.9 10^3/uL (0.0-1.0); MONOCYTES % (AUTO) 10 % (0-12); NEUTROPHILS # (AUTO) 7.6 10^3/uL (1.8-7.8); NEUTROPHILS % (AUTO) 80 % (42-75); PLATELET COUNT 133 10^3/uL (130-400); WHITE BLOOD COUNT 9.4 10^3/uL (4.3-11.0)
[2022-10-12 06:34] LABS: ALBUMIN 2.4 GM/DL (3.2-4.5); POTASSIUM 3.8 MMOL/L (3.6-5.0)
[2022-10-12 06:35] LABS: CALCIUM 9.9 MG/DL (8.5-10.1)
[2022-10-12 06:36] LABS: TOTAL PROTEIN 6.2 GM/DL (6.4-8.2)
[2022-10-12 06:38] LABS: BILIRUBIN,TOTAL 0.3 MG/DL (0.1-1.0)
[2022-10-12 06:40] LABS: CREATININE SERUM 2.36 MG/DL (0.60-1.30); PHOSPHORUS 2.8 MG/DL (2.3-4.7)
[2022-10-12 06:43] LABS: MAGNESIUM 2.3 MG/DL (1.6-2.4)
[2022-10-12] MEDS: inSUlin ASPART (NovoLOG) 1 UNIT/0.01 ML (CHARGE PER UNIT) SC SCH ×4 (06:44→20:52)
[2022-10-12] MEDS ORDERED: D5W 1000 ML IV SOLUTION 1,000 ML IV SCH (08:30)
[2022-10-12] MEDS: LIDOCAINE 4% (SALONPAS) PATCH TOP SCH (08:48)
[2022-10-12] MEDS: ASPIRIN E.C. 81 MG (ECOTRIN) TAB PO SCH ×2 (09:08→20:51)
[2022-10-12] MEDS: MICONAZOLE 2% POWDER (DESENEX AF) 90 GM TOP SCH ×2 (09:11→21:35)
[2022-10-12] MEDS: DRONEDARONE 400 MG TABLET PO SCH ×2 (09:11→17:47)
--- NOTE | 2022-10-12 09:50 | Diagnostic Imaging Report ---
Indication: Hypoxia Frontal chest obtained at 9:34 a.m. and compared to 10/08/2022. There is cardiomegaly. There is central vascular congestion. There is patchy infiltrate in the lung bases on both sides, right greater than left. There is no pneumothorax or significant sized pleural effusion. Impression: Cardiomegaly. Increasing central vascular congestion and extensive new bilateral infiltrates, right worse left. Dictated by: Dictated on workstation # [id number]
[2022-10-12] MEDS: LACTOBACILLUS ACIDOPHILUS (PROBIOTIC) CAPSULE PO SCH (10:05)
[2022-10-12] MEDS: FAMOTIDINE 20 MG (PEPCID) TABLET PO SCH (10:06)
[2022-10-12] MEDS: DOCUSATE SODIUM 100 MG (COLACE) CAP PO SCH ×2 (10:06→20:51)
--- NOTE | 2022-10-12 10:13 | Speech Therapy Progress Note ---
Therapy Progress Note ST attempted the oropharyngeal swallowing evaluation at 0900. At this time, the patient remains on BiPAP with reduced alertness. Per RN, the patient will most likely remain on BiPAP throughout the day. The ST requested contact from the RN if the patient becomes appropriate for participation in the assessment. ST to re-attempt as the patient is appropriate. DIGNA PIEDRA Oct 12, 2022 10:13
[2022-10-12] MEDS ORDERED: FUROSEMIDE 40 MG/4 ML INJ (LASIX) ONE (11:04)
[2022-10-12] MEDS ORDERED: DIGOXIN 0.25 MG/ML (LANOXIN) 2 ML AMP IV NR (11:30)
[2022-10-12] MEDS ORDERED: FUROSEMIDE 40 MG/4 ML INJ (LASIX) IVP NR ×2 (11:30→17:00)
--- NOTE | 2022-10-12 12:05 | Tele-ICU Progress Note ---
Subjective Date Seen by a Provider: Oct 12, 2022 Time Seen by a Provider: 12:04 Subjective/Events-last exam (Tele-ICU Physician , Progress Note ) Service provided via interactive audio and video telecommunications E-CARE system to a patient admitted to ICU bed in [facility]. Patient is seen today due to persistent need of ICU care Available chart/ vitals / labs / Images reviewed Video assessment done using teleICU camera, rest of exam as per RN Discussed with RN Events overnight : Afebrile hemodynamically stable Respiratory - I/O = Drips: d5 w 100 Pressors- no Consultants: Hospital course: (10/08) 72F Admitted for A[place] from [place]. Chronic UTI (just DC'd from hosp recently), acute on chronic renal failure, Decubitus ulcers right posterior thigh (10/09) TX to ICU d/t increased lethargy despite bipap and improving ABG A/P Acute resp70 % rr 37 tv 430 MV 20 L- ABG improved , but O2 is worse - cont BIPAP for now with plan to re-assess tomorrow - cont nebs - DISCUSSED WITH FAMILY ( DAUGHTER AND SON ) WITH RN PRESENT - PATIENT DID NOT WANTED PERMANENT LIFE SUPPORT DEVISES , BUT OK WITH TEMPORARY ONES . GIVEN BORDERLINE BP, HT150 AND FIO2 100 , DISCUSSED POSSIBILITY OF ELECTIVE INTUBATION ( pro/cons , all questiions answered ) lethargy - CTH - neg 10/08, CO2 at baseline now on bipap - no NEW neuro-defiit , ( h/o CVA - left side wekness) - responds to stimulis , not communictes Yes/No UTI recent admission wit UTI - ecoli and and proteus , was TX with meropenem based on sens - MErrem Hypotension - probaly due to infectio / acidosis and tachycardia - will cont hydration PRN ( ECHO 2018 EF 55% ) CKD - cr stable DM II - ISS h/o PAF- RVR 10/12 - given cardizem IV , dig - cards to be consulted s/p cardioversion April 2019, maintained on Cardizem and Multaq - recived this am -"unable to tolerate oral anticoagulation due to recurrent GI bleed-" as per chart Anemia- stable - h/o GIB in past , no sourse on endoscopy h/o DVT in February 2019 -unable to tolerate oral anticoagulation due to recurrent GI bleed Lines : midline right , (Central Line Necessity Reviewed) Aguiar: new 10/08 OG: Nutrition: npo Analgesia: Anxiety/ delirium VTE Prophylaxis: hepain sq Stress Ulcer Prophylaxis: pepcid Plans in collaboration with bedside consultants and IM MDs. Discussed with RN to reach out if any questions or concerns A total of 55 minutes of critical care time was devoted to this patient today, required to treat and/or prevent further deterioration of critical care condition ( as above ) . I am remotely monitoring this patient from another state. I am unable to do the bedside exam, and history/physical and pertinent information is taken from other notes in the computer and bedside staff. . Sepsis Event Evaluation Height, Weight, BMI Height: 5'6.00" Weight: 118lbs. 0.5oz. 53.743310ta; 42.66 BMI Method:Estimated Focused Exam Time of Focused Exam: 20:30 Exam Exam Patient acknowledged, consented, and participated in this virtual visit which was conducted using real time audio/video Vital Signs Date Time Temp Pulse Resp B/P (MAP) Pulse Ox O2 Delivery O2 Flow Rate FiO2 10/12/22 11:23 141 10/12/22 11:00 146 23 106/82 (90) 91 NIV Bilevel 70.00 10/12/22 10:56 142 31 96 100.00 10/12/22 10:00 96 33 129/67 (87) 92 NIV Bilevel 70.00 10/12/22 09:21 37.8 95 91 10/12/22 09:00 95 26 139/77 (97) 91 NIV Bilevel 70.00 10/12/22 08:00 37.8 10/12/22 08:00 82 29 127/53 (77) 96 NIV Bilevel 70.00 10/12/22 07:54 89 30 96 70.00 10/12/22 07:00 85 10/12/22 07:00 92 32 129/60 (83) 90 NIV Bilevel 70.00 10/12/22 06:00 92 30 132/62 (85) 97 NIV Bilevel 70.00 10/12/22 05:00 90 31 123/70 (87) 95 NIV Bilevel 70.00 10/12/22 04:00 93 NIV Bilevel 70 10/12/22 04:00 98 19 136/63 (87) 96 NIV Bilevel 70.00 10/12/22 03:00 85 31 130/60 (83) 96 NIV Bilevel 70.00 10/12/22 02:53 121 93 70.00 10/12/22 02:00 105 34 134/68 (90) 96 NIV Bilevel 70.00 10/12/22 01:00 90 10/12/22 01:00 90 30 127/57 (80) 96 NIV Bilevel 70.00 10/12/22 00:00 97 39 127/58 (81) 87 NIV Bilevel 70.00 10/12/22 00:00 93 NIV Bilevel 70 10/11/22 23:00 105 33 135/70 (91) 90 NIV Bilevel 60.00 10/11/22 22:45 116 36 91 60.00 10/11/22 22:00 104 36 103/64 (77) 93 NIV Bilevel 60.00 10/11/22 21:00 91 37 135/57 (83) 94 NIV Bilevel 60.00 10/11/22 20:00 114 35 132/63 (86) 94 NIV Bilevel 60.00 10/11/22 20:00 93 NIV Bilevel 60 10/11/22 19:26 37.8 10/11/22 19:00 93 10/11/22 19:00 93 34 124/64 (84) 93 NIV Bilevel 60.00 10/11/22 18:53 91 33 93 60.00 10/11/22 18:00 93 37 132/52 (75) 93 NIV Bilevel 60.00 10/11/22 17:00 95 32 125/60 (76) 89 NIV Bilevel 60.00 10/11/22 16:00 93 NIV Bilevel 60 10/11/22 16:00 90 25 120/50 (77) 91 NIV Bilevel 60.00 10/11/22 15:57 89 35 91 60.00 10/11/22 15:46 38.4 10/11/22 15:00 84 32 127/52 (79) 93 NIV Bilevel 60.00 10/11/22 14:00 92 31 126/54 (76) 92 NIV Bilevel 60.00 10/11/22 13:00 93 33 116/50 (57) 95 NIV Bilevel 60.00 10/11/22 12:41 98 10/11/22 12:16 37.4 I & O 10/12/22 07:00 Intake Total 1230 ml Output Total 1575 ml Balance -345 ml Height & Weight Height: 5'6.00" Weight: 118lbs. 0.5oz. 53.974684dl; 42.66 BMI Method:Estimated General Appearance: Chronically ill, Obese HEENT: PERRL/EOMI, Other (obscrued by BiPAP mask) Respiratory: Lungs Clear, No Accessory Muscle Use Cardiovascular: Regular Rate, Rhythm, No Murmur Extremity: Pedal Edema Neurologic/Psychiatric: Alert, Other (drowsy) Skin: Other (venous statis changes of lower extremities) Results Lab Laboratory Tests 10/11/22 03:25 10/12/22 06:00 Assessment/Plan Assessment/Plan 1 ARASH KAUR MD Oct 12, 2022 12:04
[2022-10-12 12:13] LABS: ABG BASE EXCESS -2.6 MMOL/L (-2.5-2.5); ABG OXYGEN SATURATION 96 % (94-100); ABG PCO2 43 MMHG (35-45); ABG PO2 76 MMHG (79-93); ABG TCO2 23.7 MMOL/L (21.0-31.0); ALLENS TEST YES-POS; INSPIRED O2 70%; PATIENT TEMP 36.8; VENTILATOR NO
[2022-10-12 12:14] LABS: ABG PH 7.33 (7.37-7.43)
[2022-10-12] MEDS ORDERED: NS IV 1000 ML 1,000 ML ONE (12:30)
[2022-10-12] MEDS ORDERED: NOREPINEPHRINE 8 MG/250 ML 250 ML IV ONE (12:34)
[2022-10-12] MEDS ORDERED: PROPOFOL DRIP (ICU) 100 ML IV ONE (12:39)
[2022-10-12] MEDS ORDERED: fentaNYL INJ 100 MCG/2 ML AMP IVP NR (13:00)
--- NOTE | 2022-10-12 13:00 | Anesthesia-Procedure Note ---
Procedures/Interventions Procedure Start/Stop/Diagnosis Date of Procedure: Oct 12, 2022 Start Time: 12:37 Stop Time: 12:50 Intubation RSI: Yes 100% pre-Ox, [id number]: Yes Intubation Method: orotracheal Videoscope used: Yes Grade View: 1 Medications: Etomidate, Rocuronium, Succinylcholine Mask Ventilation: positive Positive End Tide CO2: Yes Breath Sounds after Intubation: bilateral-equal ETT Securred @ (cm): 22 Intubated with ease: Yes Intubation Complications: no complications Post Intubation Xray-done: Yes Arterial Line Arterial Line Catheter: 20G Type: Radial Location: Right Procedure: prepped, draped in sterile fashion, good wave-form was obtained, pat ient tolerated procedure well, no immediate complications, post procedure area cleaned, post procedure dressing applied JOEY SHRESTHA CRNA Oct 12, 2022 13:00
--- NOTE | 2022-10-12 13:09 | Diagnostic Imaging Report ---
INDICATION: Respiratory failure Portable chest 12:48 PM There is an ET tube projecting over the trachea. There is a nasoenteric tube that appears to enter the stomach. There are alveolar infiltrates in the lungs. There is no appreciable effusion or pneumothorax. IMPRESSION: Diffuse alveolar infiltrates in the lungs with relative sparing of left apex. This infiltrates appear slightly worse compared to earlier the day suggesting they may be due to pulmonary edema. Dictated by: Dictated on workstation # [id number]
[2022-10-12] MEDS: fentaNYL DRIP PRE-MIX 250 ML IV SCH (13:10)
[2022-10-12] MEDS: DexMEDEtomidine 250 ML DRIP 250 ML IV SCH ×2 (13:13→20:51)
[2022-10-12] MEDS: fentaNYL DRIP PRE-MIX 250 ML IV ONE ×2 (13:24→17:37)
--- NOTE | 2022-10-12 13:30 | Speech Therapy Progress Note ---
Therapy Progress Note The patient was recently intubated. ST to sign off at this time. Please re- consult speech pathology following extubation. Thank you for the consultation. DIGNA PIEDRA Oct 12, 2022 13:30
--- NOTE | 2022-10-12 13:40 | Physical Therapy Progress Note ---
Therapy Progress Note Patient currently sedated and intubated. PT will monitor patient's status and initiate treatment when patient is medially stable and able to actively participate with skilled therapy. Per report and prior stay, patient is dependent bedbound/Griselda lift PLOF. MICHAEL ADAN PT Oct 12, 2022 13:40
--- NOTE | 2022-10-12 13:43 | Occ Therapy Progress Note ---
Therapy Progress Note OT orders received, chart reviewed, patient intubated OT will monitor for appropriateness for therapy PARMINDER RAMOS OT Oct 12, 2022 13:43
[2022-10-12] MEDS ORDERED: ROCURONIUM 10 MG/ML 5 ML SYRINGE IV ONE (14:07)
[2022-10-12] MEDS ORDERED: SUCCINYLCHOLINE INJ 20 MG/1 ML 10 ML VIAL INJ ONE (14:07)
[2022-10-12] MEDS ORDERED: ETOMIDATE IV SOLN 20 MG/10 ML VIAL IV ONE (14:07)
[2022-10-12] MEDS: dilTIAZem DRIP PRE-MIX 125 ML IV SCH (14:50)
[2022-10-12 14:52] LABS: ABG BASE EXCESS -2.1 MMOL/L (-2.5-2.5); ABG OXYGEN SATURATION 97 % (94-100); ABG PCO2 45 MMHG (35-45); ABG PO2 82 MMHG (79-93); ABG TCO2 24.2 MMOL/L (21.0-31.0)
[2022-10-12 14:53] LABS: ABG PH 7.33 (7.37-7.43); ALLENS TEST ART LINE; INSPIRED O2 100%; PATIENT TEMP 37.4; VENTILATOR NO
--- NOTE | 2022-10-12 17:17 | Consultation-Cardiology ---
HPI-Cardiology Cardiology Consultation Date of Consultation 10/12/22 Date of Admission Time Seen by Provider: 17:11 Indication: Atrial fibrillation HPI 72-year-old lady admitted for sepsis and urinary tract infection. During her hospital stay she has worsening respiratory failure, she was maintained on BiPAP deteriorated this morning and patient was intubated. Patient was noted to be in atrial fibrillation with rapid ventricular response. I was called for evaluation. I was unable to obtain any history from the patient, history was obtained by visiting with her family and reviewing her record. Home Medications & Allergies Allergies: Coded Allergies: sulfamethoxazole (Verified Allergy, Unknown, 10/13/17) trimethoprim (Verified Allergy, Unknown, 10/13/17) Home Medication List Reviewed: Yes FLW-Nconkg-Gbaced Hx Patient Social History Employed/Student: retired Recreational Drug Use: No Smoking Status: Former Smoker Former smoker/When Quit: Sep 13, 1999 Type Used: Cigarettes 2nd Hand Smoke Exposure: No Recent Hopitalizations: Yes Have you traveled recently?: No Alcohol Use?: No Immunizations Up To Date Tetanus Booster (TDap): Unknown Past Medical History Discussed below Family Medical History Significant Family History: No Pertinent Family Hx Family History: Completed stroke 19 FATHER G8 BROTHER Diabetes mellitus G8 BROTHER Hypertension 19 FATHER 19 MOTHER Review of Systems-General Review of Systems Constitutional: see HPI, other (Sedated and intubated, unable to provide review of system) Reviewed Test Results Reviewed Test Results Lab Laboratory Tests Test 10/11/22 17:43 10/11/22 20:12 10/12/22 06:00 10/12/22 10:35 Range/Units Glucometer 136 H 165 H 178 H 70-110 MG/DL White Blood Count 9.4 4.3-11.0 10^3/uL Red Blood Count 3.72 L 3.80-5.11 10^6/uL Hemoglobin 10.3 L 11.5-16.0 g/dL Hematocrit 34 L 35-52 % Mean Corpuscular Volume 91 80-99 fL Mean Corpuscular Hemoglobin 28 25-34 pg Mean Corpuscular Hemoglobin Concent 30 L 32-36 g/dL Red Cell Distribution Width 13.8 10.0-14.5 % Platelet Count 133 130-400 10^3/uL Mean Platelet Volume 10.7 9.0-12.2 fL Immature Granulocyte % (Auto) 1 % Neutrophils (%) (Auto) 80 H 42-75 % Lymphocytes (%) (Auto) 8 L 12-44 % Monocytes (%) (Auto) 10 0-12 % Eosinophils (%) (Auto) 1 0-10 % Basophils (%) (Auto) 0 0-10 % Neutrophils # (Auto) 7.6 1.8-7.8 10^3/uL Lymphocytes # (Auto) 0.8 L 1.0-4.0 10^3/uL Monocytes # (Auto) 0.9 0.0-1.0 10^3/uL Eosinophils # (Auto) 0.1 0.0-0.3 10^3/uL Basophils # (Auto) 0.0 0.0-0.1 10^3/uL Immature Granulocyte # (Auto) 0.1 0.0-0.1 10^3/uL Sodium Level 152 H 135-145 MMOL/L Potassium Level 3.8 3.6-5.0 MMOL/L Chloride Level 120 H 98-107 MMOL/L Carbon Dioxide Level 21 21-32 MMOL/L Anion Gap 11 5-14 MMOL/L Blood Urea Nitrogen 41 H 7-18 MG/DL Creatinine 2.36 H 0.60-1.30 MG/DL Estimat Glomerular Filtration Rate 21 BUN/Creatinine Ratio 17 Glucose Level 172 H 70-105 MG/DL Calcium Level 9.9 8.5-10.1 MG/DL Corrected Calcium 11.2 H 8.5-10.1 MG/DL Phosphorus Level 2.8 2.3-4.7 MG/DL Magnesium Level 2.3 1.6-2.4 MG/DL Total Bilirubin 0.3 0.1-1.0 MG/DL Aspartate Amino Transf (AST/SGOT) 15 5-34 U/L Alanine Aminotransferase (ALT/SGPT) 16 0-55 U/L Alkaline Phosphatase 93 40-136 U/L Total Protein 6.2 L 6.4-8.2 GM/DL Albumin 2.4 L 3.2-4.5 GM/DL Test 10/12/22 12:08 10/12/22 14:26 10/12/22 16:57 Range/Units Blood Gas Puncture Site LR ART Blood Gas Patient Temperature 36.8 37.4 Arterial Blood pH 7.33 *L 7.33 *L 7.37-7.43 Arterial Blood Partial Pressure CO2 43 45 35-45 MMHG Arterial Blood Partial Pressure O2 76 L 82 79-93 MMHG Arterial Blood HCO3 22 L 23 23-27 MMOL/L Arterial Blood Total CO2 23.7 24.2 21.0-31.0 MMOL/L Arterial Blood Oxygen Saturation 96 97 94-100 % Arterial Blood Base Excess -2.6 L -2.1 -2.5-2.5 MMOL/L Jai Test YES-POS ART LINE Blood Gas Ventilator Setting NO NO Blood Gas Inspired Oxygen 70% 100% Glucometer 176 H 70-110 MG/DL Physical Exam Physical Exam Vital Signs Vital Signs - First Documented 10/08/22 10/08/22 19:04 22:22 Temp 36.3 Pulse 70 Resp 23 B/P (MAP) 169/85 (113) Pulse Ox 84 O2 Delivery Nasal Cannula O2 Flow Rate 4.00 FiO2 50 Capillary Refill : Height, Weight, BMI Height: 5'6.00" Weight: 118lbs. 0.5oz. 53.866917pv; 42.66 BMI Method:Estimated General Appearance: Chronically ill, Obese, Other (Sedated and intubated) HEENT: PERRL/EOMI, Other (obscrued by BiPAP mask) Respiratory: No Accessory Muscle Use, Crackles, Decreased Breath Sounds Cardiovascular: Systolic Murmur, Irregularly Irregular, Tachycardia Gastrointestinal: Normal Bowel Sounds, Non Tender, Soft Genital/Rectal: Other (catheter) Extremity: Pedal Edema Neurologic/Psychiatric: Other (Sedated and intubated) Skin: Other (venous statis changes of lower extremities) A/P-Cardiology Admission Diagnosis Acute respiratory failure Urosepsis Atrial fibrillation Acute renal failure Assessment/Plan Acute respiratory failure, progress to intubation. Patient has been on BiPAP for the past few days. Managed by medical team UTI, urosepsis, patient is receiving antibiotics and managed by medical team Atrial fibrillation with rapid ventricular response, patient has history of paroxysmal atrial fibrillation, had cardioversion in 2019. Unable to tolerate oral anticoagulation due to recurrent GI bleed. Was unable to tolerate aggressive Cardizem dosing due to borderline hypotension I added digoxin, will monitor tolerance and response. History of recurrent GI bleed, had work-up done in the past. Endoscopy was unsuccessful in the past and determining the source of her bleeding Acute on chronic renal failure, chronic kidney disease stage III. Continue to monitor History of recurrent pleural effusion, had thoracentesis History of CVA with left side paralysis, history of DVT in February 2019 Patient was unable to tolerate oral anticoagulation due to recurrent GI bleed Hypertension, blood pressure is stable, monitor blood pressure Hyperlipidemia, monitor lipids Diabetes mellitus, followed and managed by primary care physician Morbid obesity, BMI 42. FARAZ ALCALA MD Oct 12, 2022 17:17
--- NOTE | 2022-10-12 17:37 | Consultation - Surgery ---
History of Present Illness History of Present Illness Patient Consulted On(nik/time) 10/12/22 17:33 Time Seen by Provider: 17:01 Reason for Visit: Atrial fibrillation History of Present Illness Surgery asked to consult for Venous Insufficiency and need for central line. HPI per IM: Pt is a 72yoCF with a PMH of IDDMII, CKD, ESBl E coli UTI, HLD, HTN, morbid obesity, ANKIT, CVA, pAF, chronic respiratory failure who presented to the ER due to overall decline. She is unable to rpovide me any history. Her daughter is at bedside and is able to provide some. She was just admitted to the hospital last week due to UTI and was sent home on IV abx. Daughter states that earlier in the week she was near her baseline and able to talk and feed herself but then took a turn for the worse over the last day or two. This morning she is minimally responsive. She does open eyes and groan with significant verbal stimuli but she otherwise is quite somnolent. In the ER she was found to be hypoxic even on her baseline oxygen and was placed on BiPAP. Daughter confirms she would be ok with intubation if needed. She was admitted for further management of her encephalopathy and respiratory failure. When I saw pt she was sedated and intubated, nurse asked for central line because pt was on pressors and had only very small peripheral access. Allergies and Home Medications Allergies Coded Allergies: sulfamethoxazole (Verified Allergy, Unknown, 10/13/17) trimethoprim (Verified Allergy, Unknown, 10/13/17) Patient Home Medication List Home Medication List Reviewed: Yes Acetaminophen (Acetaminophen) 500 Mg Tablet, 1,000 MG PO Q6H PRN for PAIN-MILD OR TEMPATURE, (Reported) Entered as Reported by: TAMIKO RASHEED on 08/29/17 1202 Last Action: Held Aspirin (Aspirin EC) 81 Mg Tablet.dr, 81 MG PO BID, (Reported) Entered as Reported by: NELIA KING on 07/22/20 1134 Last Action: Continued Bethanechol Chloride (Urecholine) 10 Mg Tablet, 10 MG PO BID, (Reported) Entered as Reported by: NELIA KING on 10/02/22 1145 Last Action: Held Bisacodyl (Dulcolax) 10 Mg Supp.rect, 10 MG RC DAILY PRN for CONSTIPATION-4TH LINE, (Reported) Entered as Reported by: DASH HOWELL on 06/26/21 1855 Last Action: Held Calcitriol (Calcitriol) 0.5 Mcg Capsule, 0.5 MCG PO DAILY, (Reported) Entered as Reported by: Delaney Danielle on 08/29/22 114 Last Action: Held Calcium Acetate (Calcium Acetate) 667 Mg Tablet, 667 MG PO DAILY, (Reported) Entered as Reported by: Delaney Danielle on 08/29/22 114 Last Action: Held Cholecalciferol (Vitamin D3) (Vitamin D3) 125 Mcg Capsule, 125 MCG PO DAILY, (Reported) Entered as Reported by: DASH HOWELL on 06/26/21 1456 Last Action: Held Cranberry Extract (Cranberry) 500 Mg Tablet, 1,000 MG PO DAILY, (Reported) Entered as Reported by: JORGE ASH on 10/13/17 1023 Last Action: Held Dapagliflozin Propanediol (Farxiga) 10 Mg Tablet, 10 MG PO DAILY, (Reported) Entered as Reported by: Delaney Danielle on 08/29/22 114 Last Action: Held Dextran 70/Hypromellose/Pf (Artificial Tears Drops) 0.1 %-0.3 % Droperette, 1 EACH OU UD PRN for DRY EYES, (Reported) Entered as Reported by: Delaney Danielle on 08/29/22 114 Last Action: Held Diltiazem HCl (Diltiazem 24Hr ER) 240 Mg Cap.er.24h, 240 MG PO DAILY, (Reported) Entered as Reported by: NELIA KING on 10/02/22 114 Last Action: Continued Docusate Sodium (Colace) 100 Mg Capsule, 100 MG PO BID, (Reported) Entered as Reported by: JANELLE DURHAM on 09/15/18 0928 Last Action: Continued Dronedarone HCl (Multaq) 400 Mg Tablet, 400 MG PO 0800,1730, (Reported) Entered as Reported by: NELIA KING on 10/02/22 114 Last Action: Continued Dulaglutide (Trulicity) 0.75 Mg/0.5 Ml Pen.injctr, 7.5 MG SQ WEEK, (Reported) Entered as Reported by: Delaney Danielle on 08/29/22 1145 Last Action: Held Ertapenem Sodium (Ertapenem) 1 Gram Vial, 1 GM IV DAILY, (Reported) Entered as Reported by: NELIA KING on 10/09/22 115 Last Action: Held Eyelid Cleanser Combination #3 (Ocusoft Lid Scrub Plus) 1 Each Med..pad, 1 EACH OU UD PRN for EYELID IRRITATION, (Reported) Entered as Reported by: Delaney Danielle on 08/29/22 114 Last Action: Held Famotidine (Pepcid) 20 Mg Tablet, 20 MG PO DAILY, (Reported) Entered as Reported by: NELIA KING on 04/22/20 0849 Last Action: Continued Ferrous Sulfate (Iron) 325 Mg Tablet, 325 MG PO DAILY, (Reported) Entered as Reported by: JORGE ASH on 10/13/17 1023 Last Action: Held Fluticasone Propionate (Flonase Allergy Relief) 9.9 Ml Rhodhiss.susp, 2 SPRAY NSEACH DAILY, (Reported) Entered as Reported by: DASH HOWELL on 06/26/21 1855 Last Action: Held Furosemide (Furosemide) 20 Mg Tablet, 20 MG PO 1500, (Reported) Entered as Reported by: NELIA KING on 10/09/22 1158 Last Action: Held Gabapentin (Neurontin) 300 Mg Capsule, 300 MG PO 0800,1730, (Reported) Entered as Reported by: NELIA KING on 10/02/22 1145 Last Action: Held Gluc Angulo/Chondro Angulo A/Vit C/Mn (Glucosamine Chondroitin Tab) 1 Each Tablet, 2 TAB PO DAILY, (Reported) Entered as Reported by: JORGE ASH on 10/13/17 1023 Last Action: Held Guaifenesin (Guaifenesin) 100 Mg/5 Ml Liquid, 10 ML PO Q4H PRN for COUGH/COLD/ALLERGY, (Reported) Entered as Reported by: NELIA KING on 10/02/22 114 Last Action: Held Hydroxyzine Pamoate (Hydroxyzine Pamoate) 25 Mg Capsule, 25 MG PO HS, (Reported) Entered as Reported by: NELIA KING on 04/22/20 0849 Last Action: Held Insulin Aspart (Novolog) 100 Unit/1 Ml Susp, 30 UNIT SQ TID, (Reported) Entered as Reported by: NELIA KING on 04/22/20 0849 Last Action: Held Insulin Detemir (Levemir Flextouch) 100 Unit/Ml (3 Ml) Insuln.pen, 36 UNIT SQ BID, (Reported) Entered as Reported by: DASH HOWELL on 06/26/211854 Last Action: Held Ipratropium/Albuterol Sulfate (Iprat-Albut 0.5-3(2.5) mg/3 ml) 3 Ml Ampul.neb, 3 ML IH Q6H PRN for SHORTNESS OF BREATH, (Reported) Entered as Reported by: DASH HOWELL on 06/26/211854 Last Action: Held Krill/Om-3/Dha/Epa/Phospho/Ast (Krill Oil 500 mg Softgel) 500MG-86MG Capsule, 2 EACH PO DAILY, (Reported) Entered as Reported by: NELIA KING on 10/02/22 114 Last Action: Held L. Acidophilus/L.bulgaricus (Lactobacillus Tablet) 1 Million Cell Tablet, 1 EACH PO DAILY, (Reported) Entered as Reported by: NELIA KING on 10/02/22 114 Last Action: Converted Lidocaine (Lidocaine 5% Patch) 5 % Adh..patch, 1 PATCH TD DAILY, (Reported) Entered as Reported by: NELIA KING on 10/02/22 114 Last Action: Continued Magnesium Hydroxide (Milk of Magnesia) 2,400 Mg/10 Ml Oral.susp, 10 ML PO DAILY PRN for CONSTIPATION-7TH LINE, (Reported) Entered as Reported by: Delaney Danielle on 08/29/22 1145 Last Action: Held Melatonin (Melatonin) 3 Mg Tablet, 3 MG PO HS, (Reported) Entered as Reported by: JORGE ASH on 10/13/17 1023 Last Action: Held Metoprolol Succinate (Metoprolol Succinate) 100 Mg Tab.er.24h, 100 MG PO DAILY, (Reported) Entered as Reported by: JANELLE DURHAM on 04/09/16 1445 Last Action: Held Miconazole Nitrate (Miconazole Nitrate) 10 Gm Powder, 1 APPLIC TOP BID, (Reported) Entered as Reported by: JORGE ASH on 04/20/19 1151 Last Action: Held Nystatin (Nystatin) 100,000 Unit/Gram Cream..g., 1 APPLIC TOP DAILY, (Reported) Entered as Reported by: NELIA KING on 10/02/22 1145 Last Action: Held Sertraline HCl (Sertraline HCl) 50 Mg Tablet, 50 MG PO HS, (Reported) Entered as Reported by: NELIA KING on 04/22/20 0849 Last Action: Continued Tiotropium Chrisney (Spiriva Respimat 2.5MCG/ACTUATION) 4 Gm Mist.inhal, 2 PUFF IH DAILY, (Reported) Entered as Reported by: DASH HOWELL on 06/26/21 1855 Last Action: Held Zinc Amino Acid Chelate (Zinc) 50 Mg Tablet, 50 MG PO DAILY, (Reported) Entered as Reported by: Delaney Danielle on 08/29/22 1145 Last Action: Held Discontinued Medications Ertapenem Sodium (Ertapenem) 1 Gram Vial, 1 GM IV DAILY Discontinued Reason: Duplicate Order Prescribed by: GRIS COOK on 10/02/22 1300 Last Action: Discontinued Nystatin (Nystatin) 100,000 Unit/Ml Oral.susp, 15 ML PO QID, (Reported) Discontinued Reason: No Longer Taking Entered as Reported by: NELIA KING on 10/02/22 1145 Last Action: Discontinued Past Yvetcea-Ooidvd-Slsvls Hx Patient Social History Smoking Status: Former Smoker Former Smoker, Quit: Sep 13, 1999 Type Used: Cigarettes 2nd Hand Smoke Exposure: No Recent Hopitalizations: Yes Alcohol Use?: No Have you traveled recently?: No Immunizations Up To Date Tetanus Booster (TDap): Unknown PED Vaccines UTD: No Seasonal Allergies Seasonal Allergies: No Surgeries History of Surgeries: Yes Surgeries: Joint Replacement, Nose, Orthopedic Respiratory History of Respiratory Disorde: Yes Respiratory Disorders: COPD Cardiovascular History of Cardiac Disorders: Yes Cardiac Disorders: Atrial Fibrillation, Chronic Edema/Swelling, Coronary Artery Disease, High Cholesterol, Hypertension Neurological History of Neurological Disord: Yes (STOKE LEFT SIDE WEAKNESS) Neurological Disorders: Neuropathy, Stroke 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 System Hx 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 Disorders: No 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: Menopausal Genitourinary History of Genitourinary Disor: Yes (CHRONIC KIDNEY DISEASE STAGE 3) Genitourinary Disorders: UTI-Chronic Gastrointestinal History of Gastrointestinal Di: Yes Gastrointestinal Disorders: Gastroesophageal Reflux, Chronic Constipation, Hemorrhoids, Ulcer Musculoskeletal History of Musculoskeletal Dis: Yes (SPASMS IN L ARM FROM STROKE) Musculoskeletal Disorders: Arthritis Endocrine History of Endocrine Disorders: Yes Endocrine Disorders: Diabetes, Insulin dep HEENT History of HEENT Disorders: Yes HEENT Disorders: Dysphagia Loss of Vision: Denies Hearing Impairment: Denies Cancer History of Cancer: No Psychosocial History of Psychiatric Problem: Yes Behavioral Health Disorders: Sleep Difficulties, Anxiety, Depression Integumentary History of Skin or Integumenta: No Blood Transfusions History of Blood Disorders: No Family Medical History Significant Family History: No Pertinent Family Hx Family Medial History: Completed stroke 19 FATHER G8 BROTHER Diabetes mellitus G8 BROTHER Hypertension 19 FATHER 19 MOTHER Review of Systems-General ROS-Unable to Obtain: pt sedated and intubated, no family at bedside Physical Exam-General Problems Physical Exam Vital Signs Vital Signs - First Documented 10/08/22 10/08/22 19:04 22:22 Temp 36.3 Pulse 70 Resp 23 B/P (MAP) 169/85 (113) Pulse Ox 84 O2 Delivery Nasal Cannula O2 Flow Rate 4.00 FiO2 50 Capillary Refill : General Appearance: obese, other (sedated and intubated) HEENT: PERRL/EOMI, other (pt has large pressure ulcer on her nose) Respiratory: no respiratory distress, no accessory muscle use, decreased breath sounds Cardiovascular: regular rate, rhythm, no murmur Gastrointestinal: soft, no organomegaly Neurologic/Psychiatric: other (sedated and intubated) Data Review Labs Laboratory Tests 10/11/22 17:43: Glucometer 136H 10/11/22 20:12: Glucometer 165H 10/12/22 06:00: White Blood Count 9.4, Red Blood Count 3.72L, Hemoglobin 10.3L, Hematocrit 34L, Mean Corpuscular Volume 91, Mean Corpuscular Hemoglobin 28, Mean Corpuscular Hemoglobin Concent 30L, Red Cell Distribution Width 13.8, Platelet Count 133, Mean Platelet Volume 10.7, Immature Granulocyte % (Auto) 1, Neutrophils (%) (Auto) 80H, Lymphocytes (%) (Auto) 8L, Monocytes (%) (Auto) 10, Eosinophils (%) (Auto) 1, Basophils (%) (Auto) 0, Neutrophils # (Auto) 7.6, Lymphocytes # (Auto) 0.8L, Monocytes # (Auto) 0.9, Eosinophils # (Auto) 0.1, Basophils # (Auto) 0.0, Immature Granulocyte # (Auto) 0.1, Sodium Level 152H, Potassium Level 3.8, Chloride Level 120H, Carbon Dioxide Level 21, Anion Gap 11, Blood Urea Nitrogen 41H, Creatinine 2.36H, Estimat Glomerular Filtration Rate 21, BUN/Creatinine Ratio 17, Glucose Level 172H, Calcium Level 9.9, Corrected Calcium 11.2H, Phosphorus Level 2.8, Magnesium Level 2.3, Total Bilirubin 0.3, Aspartate Amino Transf (AST/SGOT) 15, Alanine Aminotransferase (ALT/SGPT) 16, Alkaline Phosphatase 93, Total Protein 6.2L, Albumin 2.4L 10/12/22 10:35: Glucometer 178H 10/12/22 12:08: Blood Gas Puncture Site LR, Blood Gas Patient Temperature 36.8, Arterial Blood pH 7.33*L, Arterial Blood Partial Pressure CO2 43, Arterial Blood Partial Pressure O2 76L, Arterial Blood HCO3 22L, Arterial Blood Total CO2 23.7, Arterial Blood Oxygen Saturation 96, Arterial Blood Base Excess -2.6L, Jai Test YES-POS, Blood Gas Ventilator Setting NO, Blood Gas Inspired Oxygen 70% 10/12/22 14:26: Blood Gas Puncture Site ART, Blood Gas Patient Temperature 37.4, Arterial Blood pH 7.33*L, Arterial Blood Partial Pressure CO2 45, Arterial Blood Partial Pressure O2 82, Arterial Blood HCO3 23, Arterial Blood Total CO2 24.2, Arterial Blood Oxygen Saturation 97, Arterial Blood Base Excess -2.1, Jai Test ART LINE, Blood Gas Ventilator Setting NO, Blood Gas Inspired Oxygen 100% 10/12/22 16:57: Glucometer 176H Microbiology 10/08/22 Blood Culture - Preliminary, Resulted No growth 10/08/22 Urine Culture - Final, Complete NO GROWTH Assessment/Plan Assessment/Plan Assessment/Plan Venous Insufficiency Hypotension - requiring pressors Resp Failure Plan for Central line placement with US guidance. MADELEINE DAVID DO Oct 12, 2022 17:37
--- NOTE | 2022-10-12 17:40 | Progress Note-Post Operative ---
Post-Operative Progess Note Surgeon (s)/Radiologic Technology Teacher (s) Surgeon MADELEINE DAVID DO Radiologic Technology Teacher: none Pre-Operative Diagnosis Venous Insufficiency, Respiratory failure, Hypotension Post-Operative Diagnosis same Procedure & Operative Findings Date of Procedure 10/12/22 Procedure Performed/Findings Central line placement with US guidance The patient was in their bed in the ICU, was prepped and draped in a sterile fashion. A surgical pause was performed. Ultrasound was used to locate the internal jugular vein. Once located using an 18 gauge finder needle with negative inspiration and watching with the US; the right internal jugular vein was accessed. Dark nonpulsatile blood was withdrawn. The wire was inserted. US assured proper placement. The needle was removed. A [#11] blade scalpel was used to make a stab incision along the guidewire. Dilator sheath was then advanced over the wire using Seldinger technique and the dilator was removed. The Groshong catheter was inserted over the guide wire using the Seldinger technique. The Groshong wire was removed. The catheter was then accessed in all three ports without difficulty. Good flash of blood was seen and it was then flushed with sterile saline. The catheter was sutured in place with 3-0 silk. The areas were then washed and dried. Sterile dressing was placed over incision. The patient tolerated the procedure well without complication. Anesthesia Type pt sedated for vent Estimated Blood Loss Estimated blood loss (mL): scant Specimens/Packing Specimens Removed none MADELEINE DAVID DO Oct 12, 2022 17:40
--- NOTE | 2022-10-12 20:12 | Progress Note - Hospitalist ---
Subjective HPI/CC On Admission Date Seen by Provider: Oct 12, 2022 Time Seen by Provider: 10:45 Pt is a 72yoCF with a PMH of IDDMII, CKD, ESBl E coli UTI, HLD, HTN, morbid obesity, ANKIT, CVA, pAF, chronic respiratory failure who presented to the ER due to overall decline. She is unable to rpovide me any history. Her daughter is at bedside and is able to provide some. She was just admitted to the hospital last week due to UTI and was sent home on IV abx. Daughter states that earlier in the week she was near her baseline and able to talk and feed herself but then took a turn for the worse over the last day or two. This morning she is minimally responsive. She does open eyes and groan with significant verbal stimuli but she otherwise is quite somnolent. In the ER she was found to be hypoxic even on her baseline oxygen and was placed on BiPAP. Daughter confirms she would be ok with intubation if needed. She was admitted for further management of her encephalopathy and respiratory failure. Subjective/Events-last exam She is confused. She remains on BiPAP. Her son and daughter are at the bedside. We had a long discussion regarding goals of care, plan of care, and prognosis. Focused Exam Time of Focused Exam: 20:30 Objective Exam Vital Signs Vital Signs Date Time Temp Pulse Resp B/P (MAP) Pulse Ox O2 Delivery O2 Flow Rate FiO2 10/12/22 19:51 36.4 10/12/22 18:56 90 20 96 100 10/12/22 18:00 117/64 (81) Mechanical Ventilator 100.00 Capillary Refill : General Appearance: Chronically ill, Mild Distress (tachypnea), Obese Respiratory: Decreased Breath Sounds, Respiratory Distress (tachypnea), Other (BiPAP) Cardiovascular: Regular Rate, Rhythm, No Murmur Gastrointestinal: Normal Bowel Sounds, Soft Extremity: Normal Inspection, Pedal Edema Neurologic/Psychiatric: Alert, Disoriented Skin: Normal Color, Warm/Dry Results/Procedures Lab Laboratory Tests 10/12/22 06:00 Patient resulted labs reviewed. Imaging: Reviewed Imaging Report Assessment/Plan Assessment and Plan Assess & Plan/Chief Complaint Acute on Chronic Respiratory Failure ANKIT Presumed obesity hypoventilation syndrome Acute HFpEF Baseline 2-3 L Remains on BiPAP TeleICU following, considering intubation Lasix ordered AFib with RVR Cardizem Consult Cardiology UTI Urine culture with no growth Stop Merrem CKD Cr stable Lasix T2DM Levemir SSI HTN HLD pAF Morbid Obesity h/o DVT Home meds as appropriate DVT ppx: Heparin Critical Care Critically Ill Patient Diagnosis/Problems Diagnosis/Problems (1) Acute on chronic respiratory failure Status: Acute Qualifiers: Respiratory failure complication: hypoxia and hypercapnia Qualified Codes: J96.21 - Acute and chronic respiratory failure with hypoxia; J96.22 - Acute and chronic respiratory failure with hypercapnia (2) ANKIT (obstructive sleep apnea) Status: Chronic (3) Obesity hypoventilation syndrome Status: Acute (4) Acute heart failure with preserved ejection fraction (HFpEF) Status: Acute (5) CKD (chronic kidney disease) Status: Chronic Qualifiers: Chronic kidney disease stage: stage 4 (severe) Qualified Codes: N18.4 - Chronic kidney disease, stage 4 (severe) (6) Atrial fibrillation with RVR Status: Acute (7) T2DM (type 2 diabetes mellitus) Status: Chronic Qualifiers: 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
[2022-10-12] MEDS: SERTRALINE 50 MG (ZOLOFT) TABLET PO SCH (20:51)
[2022-10-12] MEDS: LIDOCAINE PATCH REMOVAL TP SCH (21:31)
[2022-10-13] MEDS ORDERED: WATER (STERILE) FOR INJ 10 ML BTL INJ SCH
[2022-10-13] MEDS ORDERED: ZIPRASIDONE 20 MG INJ (GEODON) VIAL IM ONE
[2022-10-13] MEDS: NOREPINEPHRINE 8 MG/250 ML 250 ML IV SCH ×3 (01:23→21:47)
[2022-10-13] MEDS: RT-ALBUTEROL SULF 2.5 MG/3 ML PRE-MIX VIAL INH SCH ×6 (01:29→22:36)
[2022-10-13 01:30] VITALS: BP 144/65
[2022-10-13] MEDS ORDERED: PHENYLEPHRINE DRIP 250 ML IV ONE (02:30)
[2022-10-13] MEDS: PHENYLEPHRINE DRIP 250 ML IV SCH ×2 (02:36→17:05)
[2022-10-13] MEDS: dilTIAZem DRIP PRE-MIX 125 ML IV SCH ×3 (02:44→21:37)
[2022-10-13 03:59] LABS: ABG BASE EXCESS -0.5 MMOL/L (-2.5-2.5); ABG OXYGEN SATURATION 90 % (94-100); ABG PCO2 36 MMHG (35-45); ABG PH 7.43 (7.37-7.43); ABG PO2 52 MMHG (79-93); ABG TCO2 24.6 MMOL/L (21.0-31.0); BASOPHILS % (AUTO) 0 % (0-10); EOSINOPHILS # (AUTO) 0.1 10^3/uL (0.0-0.3); EOSINOPHILS % (AUTO) 2 % (0-10); HEMATOCRIT 42 % (35-52); HEMOGLOBIN 12.9 g/dL (11.5-16.0); LYMPHOCYTES # (AUTO) 0.8 10^3/uL (1.0-4.0); LYMPHOCYTES % (AUTO) 11 % (12-44); MEAN CORPUSCULAR HEMOGLOBIN 27 pg (25-34); MEAN CORPUSCULAR HGB CONC 31 g/dL (32-36); MEAN CORPUSCULAR VOLUME 89 fL (80-99); MEAN PLATELET VOLUME 11.1 fL (9.0-12.2); MONOCYTES # (AUTO) 0.7 10^3/uL (0.0-1.0); MONOCYTES % (AUTO) 10 % (0-12); NEUTROPHILS # (AUTO) 5.6 10^3/uL (1.8-7.8); NEUTROPHILS % (AUTO) 76 % (42-75); PLATELET COUNT 130 10^3/uL (130-400); WHITE BLOOD COUNT 7.4 10^3/uL (4.3-11.0)
[2022-10-13 04:00] LABS: ALLENS TEST YES-POS; INSPIRED O2 80%; PATIENT TEMP 36.3; VENTILATOR YES
[2022-10-13 04:10] LABS: ALBUMIN 2.4 GM/DL (3.2-4.5); POTASSIUM 3.9 MMOL/L (3.6-5.0)
[2022-10-13] MEDS: DexMEDEtomidine 250 ML DRIP 250 ML IV SCH ×3 (04:10→21:37)
[2022-10-13 04:11] LABS: CALCIUM 9.8 MG/DL (8.5-10.1)
[2022-10-13 04:13] LABS: TOTAL PROTEIN 6.5 GM/DL (6.4-8.2)
[2022-10-13 04:14] LABS: BILIRUBIN,TOTAL 0.4 MG/DL (0.1-1.0)
[2022-10-13 04:16] LABS: CREATININE SERUM 2.72 MG/DL (0.60-1.30); PHOSPHORUS 2.2 MG/DL (2.3-4.7)
[2022-10-13 04:20] LABS: MAGNESIUM 2.3 MG/DL (1.6-2.4)
[2022-10-13] MEDS: inSUlin ASPART (NovoLOG) 1 UNIT/0.01 ML (CHARGE PER UNIT) SC SCH ×3 (05:08→18:09)
[2022-10-13] MEDS: MAGNESIUM 1 GM/100 ML IVPB 100 ML IV SCH (05:08)
[2022-10-13] MEDS: KCL 20 MEQ TAB (K-DUR) PO SCH (05:08)
[2022-10-13] MEDS: POTASSIUM CL 10MEQ/50ML IVPB 50 ML IV SCH (05:08)
--- NOTE | 2022-10-13 06:48 | Occ Therapy Progress Note ---
Therapy Progress Note Pt currently intubated. Pt will need new orders when extubated, until then OT will monitor pt's status, will initiate treatment when new orders are given and pt is medically stable to participate in skilled therapy. JARROD OLIVARES Oct 13, 2022 06:48
--- NOTE | 2022-10-13 07:09 | Physical Therapy Progress Note ---
Therapy Progress Note Patient currently sedated and intubated. PT will monitor patient's status and initiate treatment when patient is medially stable and able to actively participate with skilled therapy. Per report and prior stay, patient is dependent bedbound/Griselda lift PLOF. MICHAEL ADAN PT Oct 13, 2022 07:09
[2022-10-13 07:16] VITALS: BP 112/61
[2022-10-13] MEDS: ACETAMINOPHEN 650 MG SUPP (TYLENOL) PR PRN ×2 (07:45→16:52)
--- NOTE | 2022-10-13 08:03 | Cardiology Progress Note ---
Subjective Date Seen by Provider: Oct 13, 2022 Time Seen by Provider: 08:02 Subjective/Events-last exam Patient is sedated and intubated Review of Systems General: Other (Unable to provide review of system) Focused Exam Time of Focused Exam: 20:30 Objective-Cardiology Exam Last Set of Vital Signs Vital Signs 10/13/22 10/13/22 10/13/22 10/13/22 10/13/22 05:43 07:00 07:16 07:24 07:58 Temp 38.4 Pulse 113 Resp 24 B/P (MAP) 105/44 Pulse Ox 96 O2 Delivery Mechanical Ventilator O2 Flow Rate 80.00 FiO2 80 I&O Intake and Output 10/13/22 00:00 Intake Total 800 ml Output Total 3275 ml Balance -2475 ml Intake Oral 0 ml IV Total 800 ml Output Urine Total 3275 ml General: Other (Sedated and intubated) HEENT: Atraumatic, PERRLA Neck: Supple Lungs: Normal Air Movement, Other (Bilateral rhonchi) Heart: Normal S1, Normal S2, Other (Atrial fibrillation) Abdomen: Normal Bowel Sounds Extremities: No Clubbing, No Cyanosis, Other (Peripheral edema) Skin: No Rashes Neuro: Other (Sedated and intubated) Psych/Mental Status: Other (Sedated and intubated) Results Lab Laboratory Tests 10/13/22 03:43 A/P-Cardiology Admission Diagnosis Acute respiratory failure Urosepsis Atrial fibrillation Acute renal failure Assessment/Plan Acute respiratory failure, progress to intubation. Patient has been on BiPAP for the past few days. Managed by medical team UTI, urosepsis, patient is receiving antibiotics and managed by medical team Atrial fibrillation with rapid ventricular response, patient has history of paroxysmal atrial fibrillation, had cardioversion in 2019. Unable to tolerate oral anticoagulation due to recurrent GI bleed. Currently on Cardizem and digoxin. Monitor heart rate and titrate History of recurrent GI bleed, had work-up done in the past. Endoscopy was unsuccessful in the past and determining the source of her bleeding Acute on chronic renal failure, chronic kidney disease stage III. Continue to monitor History of recurrent pleural effusion, had thoracentesis History of CVA with left side paralysis, history of DVT in February 2019 Patient was unable to tolerate oral anticoagulation due to recurrent GI bleed Hypertension, blood pressure is stable, monitor blood pressure Hyperlipidemia, monitor lipids Diabetes mellitus, followed and managed by primary care physician Morbid obesity, BMI 42. FARAZ ALCALA MD Oct 13, 2022 08:03
[2022-10-13] MEDS: DOCUSATE SODIUM 100 MG (COLACE) CAP PO SCH ×2 (08:33→21:39)
[2022-10-13] MEDS: FAMOTIDINE 20 MG (PEPCID) TABLET PO SCH (08:37)
[2022-10-13] MEDS: ASPIRIN E.C. 81 MG (ECOTRIN) TAB PO SCH (08:37)
[2022-10-13] MEDS: DRONEDARONE 400 MG TABLET PO SCH ×2 (08:37→17:09)
[2022-10-13] MEDS: LIDOCAINE 4% (SALONPAS) PATCH TOP SCH (08:38)
[2022-10-13] MEDS: LACTOBACILLUS ACIDOPHILUS (PROBIOTIC) CAPSULE PO SCH (08:38)
[2022-10-13] MEDS: MICONAZOLE 2% POWDER (DESENEX AF) 90 GM TOP SCH ×2 (08:38→21:39)
[2022-10-13] MEDS ORDERED: PIPERACILLIN SODIUM/TAZOBACTAM 4.5 GM in NS (IVPB) 100 ML IV ONE (09:30)
--- NOTE | 2022-10-13 09:41 | Diagnostic Imaging Report ---
INDICATION: Pneumonia. Frontal chest obtained at 9:16 a.m. compared with yesterday FINDINGS: ET tube tip overlies mid trachea. Right IJ catheter seen with tip overlying upper SVC. NG tube is seen with tip not well visualized. There is cardiomegaly and central vascular congestion with patchy bibasilar and midlung infiltrates which are slightly improved compared to the prior study. There is no pneumothorax or significant sized pleural effusion. IMPRESSION: Moderate improvement in bilateral infiltrates compared to the prior study with significant residual infiltrate present. No pneumothorax or gross pleural fluid. Life support lines as above. Dictated by: Dictated on workstation # [id number]
[2022-10-13] MEDS: ALBUMIN 25% 25 GM/100 ML 50 ML IV SCH ×2 (09:52→17:09)
[2022-10-13 10:31] VITALS: BP 143/70
[2022-10-13] MEDS ORDERED: FLUCONAZOLE 200 MG/100 ML 100 ML IV NR (12:00)
--- NOTE | 2022-10-13 12:05 | Tele-ICU Progress Note ---
Subjective Date Seen by a Provider: Oct 13, 2022 Time Seen by a Provider: 12:04 Subjective/Events-last exam (Tele-ICU Physician , Progress Note ) Service provided via interactive audio and video telecommunications E-CARE system to a patient admitted to ICU bed in [facility]. Patient is seen today due to persistent need of ICU care Available chart/ vitals / labs / Images reviewed Video assessment done using teleICU camera, rest of exam as per RN Discussed with RN Events overnight : FEBRILE hemodynamically unstable Respiratory - I/O = Drips: d5 w 100 Pressors- lc , OFF levo , cardizem gtt VENT SETTINGS and ABG reviewed NOT CANDIDATE for SBTreviewed possible contraindications including Cardiovascular Stability /Sedation Score / FI02/PEEP / ABG / CXR/ secretions Sedation, discussed with RN, RASS -1 ( squizing hand on right 0 on fent 50 precedex 0.5 - Consultants: Hospital course: (10/08) 72F Admitted for AMS from [place]. Chronic UTI (just DC'd from hosp recently), acute on chronic renal failure, Decubitus ulcers right posterior thigh (10/09) TX to ICU d/t increased lethargy despite bipap and improving ABG A/P Acute resp failure - 10/12 intubated 20-500- 80% +10 70 % - ++ secretions Shock - on lc - add colloids Possible PNA on right - follow sputum cx and cont abx , 10/13 added difflucan given + sputum cx and fever - cxr pending UTI recent admission wit UTI - ecoli and and proteus , was TX with meropenem based on sens - MErrem FINISHED 10/12 RUEL/CKD - probaly due to infectio / acidosis and tachycardia / hypotension - will cont hydration PRN ( ECHO 2018 EF 55% ) DM II - ISS h/o PAF- RVR 10/12 - given cardizem IV , dig - now on cardizem gtt - cards follow - s/p cardioversion April 2019, maintained on Cardizem and Multaq - recived this am -"unable to tolerate oral anticoagulation due to recurrent GI bleed-" as per chart Anemia- stable - h/o GIB in past , no sourse on endoscopy lethargy - CTH - neg 10/08, CO2 at baseline now on bipap - no NEW neuro-defiit , ( h/o CVA - left side wekness) - responds to stimulis now on sedation Hypernatremia - add h20 flashes h/o DVT in February 2019 -unable to tolerate oral anticoagulation due to recurrent GI bleed Lines : right IJ 10/12 , (Central Line Necessity Reviewed) Aguiar: new 10/08 OG: Nutrition: TF start 10/13 Analgesia: Anxiety/ delirium VTE Prophylaxis: hepain sq Stress Ulcer Prophylaxis: pepcid Plans in collaboration with bedside consultants and IM MDs. Discussed with RN to reach out if any questions or concerns A total of 40 minutes of critical care time was devoted to this patient today, required to treat and/or prevent further deterioration of critical care condition ( as above ) . I am remotely monitoring this patient from another state. I am unable to do the bedside exam, and history/physical and pertinent information is taken from other notes in the computer and bedside staff. . Sepsis Event Evaluation Height, Weight, BMI Height: 5'6.00" Weight: 118lbs. 0.5oz. 53.397280hu; 42.66 BMI Method:Estimated Focused Exam Time of Focused Exam: 20:30 Exam Exam Patient acknowledged, consented, and participated in this virtual visit which was conducted using real time audio/video Vital Signs Date Time Temp Pulse Resp B/P (MAP) Pulse Ox O2 Delivery O2 Flow Rate FiO2 10/13/22 11:29 110 147/62 10/13/22 11:00 123 21 93 Mechanical Ventilator 80.00 145/88 (107) 10/13/22 10:31 110 23 96 80 10/13/22 10:00 109 23 92 Mechanical Ventilator 80.00 133/87 (102) 10/13/22 09:00 108 23 93 Mechanical Ventilator 80.00 143/81 (101) 10/13/22 08:38 103 154/67 10/13/22 08:32 38.6 10/13/22 08:00 103 25 96 Mechanical Ventilator 80.00 124/80 (95) 10/13/22 07:58 38.4 10/13/22 07:45 38.4 10/13/22 07:24 113 10/13/22 07:16 107 24 96 80 10/13/22 07:00 106 23 96 Mechanical Ventilator 80.00 112/61 (78) 10/13/22 06:00 105 26 95 Mechanical Ventilator 80.00 104/61 (75) 10/13/22 05:43 105/44 10/13/22 05:02 96 139/62 10/13/22 05:00 101 26 93 Mechanical Ventilator 80.00 105/57 (73) 10/13/22 04:56 110 98/44 10/13/22 04:30 96 26 94 Mechanical Ventilator 80.00 91/49 (63) 10/13/22 04:24 98 140/61 10/13/22 04:10 104 142/64 10/13/22 04:08 104 142/64 10/13/22 04:02 101 91/48 10/13/22 04:00 91 NIV Bilevel 80 10/13/22 03:30 36.2 10/13/22 03:00 106 26 91 Mechanical Ventilator 80.00 101/51 (68) 10/13/22 02:46 98 154/74 10/13/22 02:44 115 101/51 10/13/22 02:36 115 101/51 10/13/22 02:00 Mechanical Ventilator 80.00 10/13/22 02:00 110 26 95 Mechanical Ventilator 80.00 102/53 (69) 10/13/22 01:30 115 24 98 100 10/13/22 01:23 102 144/67 10/13/22 01:23 93 91/44 10/13/22 01:06 91/44 10/13/22 01:00 80 26 96 Mechanical Ventilator 100.00 147/72 (97) 10/13/22 01:00 80 10/13/22 00:44 93 123/61 10/13/22 00:00 98 NIV Bilevel 100 10/13/22 00:00 102 26 97 Mechanical Ventilator 100.00 104/60 (75) 10/12/22 23:21 36.6 10/12/22 23:21 36.6 Mechanical Ventilator 100.00 10/12/22 23:00 105 26 98 Mechanical Ventilator 100.00 116/56 (76) 10/12/22 22:10 93 24 97 100 10/12/22 22:00 98 26 92 Mechanical Ventilator 100.00 95/77 (83) 10/12/22 21:00 92 26 95 Mechanical Ventilator 100.00 112/61 (78) 10/12/22 20:51 90 133/59 10/12/22 20:00 98 NIV Bilevel 100 10/12/22 20:00 89 26 97 Mechanical Ventilator 100.00 122/54 (76) 10/12/22 19:51 36.4 Mechanical Ventilator 100.00 10/12/22 19:51 36.4 10/12/22 19:00 100 10/12/22 19:00 90 26 96 Mechanical Ventilator 100.00 101/58 (72) 10/12/22 18:56 90 20 96 100 10/12/22 18:00 103 19 117/64 (81) 94 Mechanical Ventilator 100.00 10/12/22 17:00 103 19 111/52 (71) 95 Mechanical Ventilator 100.00 10/12/22 16:00 36.8 10/12/22 16:00 102 20 121/65 (83) 96 Mechanical Ventilator 100.00 10/12/22 16:00 94 Mechanical Ventilator 100 10/12/22 15:40 112 20 95 100 10/12/22 15:00 142 20 95 Mechanical Ventilator 100.00 10/12/22 14:50 92 147/66 10/12/22 14:00 107 20 115/69 (84) 95 Mechanical Ventilator 100.00 10/12/22 13:30 154 13 96/48 (64) 90 Mechanical Ventilator 100.00 10/12/22 13:23 154 108/45 10/12/22 13:16 129 20 90 100 10/12/22 13:13 154 109/62 10/12/22 13:00 154 10/12/22 12:45 Mechanical Ventilator 100.00 I & O 10/13/22 07:00 Intake Total 1175 ml Output Total 3275 ml Balance -2100 ml Height & Weight Height: 5'6.00" Weight: 118lbs. 0.5oz. 53.321275ea; 42.66 BMI Method:Estimated General Appearance: Chronically ill, Mild Distress (tachypnea), Obese HEENT: PERRL/EOMI, Other (obscrued by BiPAP mask) Respiratory: Decreased Breath Sounds, Respiratory Distress (tachypnea), Other (BiPAP) Cardiovascular: Regular Rate, Rhythm, No Murmur Gastrointestinal: soft, no organomegaly Extremity: Normal Inspection, Pedal Edema Neurologic/Psychiatric: Alert, Disoriented Skin: Normal Color, Warm/Dry Results Lab Laboratory Tests 10/12/22 06:00 10/13/22 03:43 Assessment/Plan Assessment/Plan 1 ARASH KAUR MD Oct 13, 2022 12:05
[2022-10-13 14:28] VITALS: BP 144/66
[2022-10-13] MEDS: fentaNYL DRIP PRE-MIX 250 ML IV SCH ×2 (14:50→19:38)
--- NOTE | 2022-10-13 18:30 | Progress Note - Hospitalist ---
Subjective HPI/CC On Admission Date Seen by Provider: Oct 13, 2022 Time Seen by Provider: 10:35 Pt is a 72yoCF with a PMH of IDDMII, CKD, ESBl E coli UTI, HLD, HTN, morbid obesity, ANKIT, CVA, pAF, chronic respiratory failure who presented to the ER due to overall decline. She is unable to rpovide me any history. Her daughter is at bedside and is able to provide some. She was just admitted to the hospital last week due to UTI and was sent home on IV abx. Daughter states that earlier in the week she was near her baseline and able to talk and feed herself but then took a turn for the worse over the last day or two. This morning she is minimally responsive. She does open eyes and groan with significant verbal stimuli but she otherwise is quite somnolent. In the ER she was found to be hypoxic even on her baseline oxygen and was placed on BiPAP. Daughter confirms she would be ok with intubation if needed. She was admitted for further management of her encephalopathy and respiratory failure. Subjective/Events-last exam She is intubated and sedated. She has family at the bedside and they are updated. Objective Exam Vital Signs Vital Signs Date Time Temp Pulse Resp B/P (MAP) Pulse Ox O2 Delivery O2 Flow Rate FiO2 10/13/22 18:00 93 24 96 Mechanical Ventilator 75.00 137/64 (88) 10/13/22 17:38 38.6 10/13/22 16:00 80 Capillary Refill : General Appearance: No Apparent Distress, Obese, Other (intubated and sedated) Respiratory: Lungs Clear, No Respiratory Distress, Other (intubated and mechanically ventilated) Cardiovascular: Irregularly Irregular, Tachycardia Gastrointestinal: Normal Bowel Sounds, Soft Extremity: Pedal Edema, Other (venous stasis dermatitis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: Other (sedated) Results/Procedures Lab Laboratory Tests 10/13/22 03:43 Patient resulted labs reviewed. Imaging: Reviewed Imaging Report Assessment/Plan Assessment and Plan Assess & Plan/Chief Complaint Acute on Chronic Respiratory Failure ANKIT Presumed obesity hypoventilation syndrome Acute HFpEF Endotracheally intubated Poor prognosis TeleICU following CXR with bilateral infiltrates, improved from yesterday Renal function worsened with diuretics Albumin ordered Fever Just completed course of Meropenem yesterday One dose Zosyn given this morning Sputum culture with yeast Started on Diflucan AFib with RVR Cardizem Cardiology following UTI Urine culture with no growth s/p Merrem RUEL on CKD Cr worsened Albumin ordered T2DM Levemir SSI HTN HLD pAF Morbid Obesity h/o DVT Home meds as appropriate DVT ppx: Heparin Critical Care Critically Ill Patient Diagnosis/Problems Diagnosis/Problems (1) Acute on chronic respiratory failure Status: Acute Qualifiers: Respiratory failure complication: hypoxia and hypercapnia Qualified Codes: J96.21 - Acute and chronic respiratory failure with hypoxia; J96.22 - Acute and chronic respiratory failure with hypercapnia (2) ANKIT (obstructive sleep apnea) Status: Chronic (3) Obesity hypoventilation syndrome Status: Acute (4) Acute heart failure with preserved ejection fraction (HFpEF) Status: Acute (5) CKD (chronic kidney disease) Status: Chronic Qualifiers: Chronic kidney disease stage: stage 4 (severe) Qualified Codes: N18.4 - Chronic kidney disease, stage 4 (severe) (6) Atrial fibrillation with RVR Status: Acute (7) T2DM (type 2 diabetes mellitus) Status: Chronic Qualifiers: 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
[2022-10-13 19:04] VITALS: BP 145/82
[2022-10-13] MEDS: SERTRALINE 50 MG (ZOLOFT) TABLET PO SCH (21:39)
[2022-10-13] MEDS: LIDOCAINE PATCH REMOVAL TP SCH (21:39)
[2022-10-13 22:36] VITALS: BP 133/77
[2022-10-14] MEDS: inSUlin ASPART (NovoLOG) 1 UNIT/0.01 ML (CHARGE PER UNIT) SC SCH ×4 (00:03→18:23)
[2022-10-14] MEDS: ALBUMIN 25% 25 GM/100 ML 50 ML IV SCH ×3 (01:37→17:12)
[2022-10-14 01:48] VITALS: BP 140/58
[2022-10-14] MEDS: RT-ALBUTEROL SULF 2.5 MG/3 ML PRE-MIX VIAL INH SCH ×6 (01:48→22:43)
[2022-10-14 03:28] LABS: ABG BASE EXCESS -1.7 MMOL/L (-2.5-2.5); ABG OXYGEN SATURATION 93 % (94-100); ABG PCO2 38 MMHG (35-45); ABG PH 7.39 (7.37-7.43); ABG PO2 65 MMHG (79-93); ABG TCO2 23.7 MMOL/L (21.0-31.0)
[2022-10-14 03:29] LABS: ALLENS TEST ART LINE; BASOPHILS % (AUTO) 0 % (0-10); EOSINOPHILS # (AUTO) 0.3 10^3/uL (0.0-0.3); EOSINOPHILS % (AUTO) 3 % (0-10); HEMATOCRIT 34 % (35-52); HEMOGLOBIN 10.3 g/dL (11.5-16.0); LYMPHOCYTES # (AUTO) 1.3 10^3/uL (1.0-4.0); LYMPHOCYTES % (AUTO) 13 % (12-44); MEAN CORPUSCULAR HEMOGLOBIN 27 pg (25-34); MEAN CORPUSCULAR HGB CONC 30 g/dL (32-36); MEAN CORPUSCULAR VOLUME 90 fL (80-99); MEAN PLATELET VOLUME 11.4 fL (9.0-12.2); MONOCYTES # (AUTO) 0.8 10^3/uL (0.0-1.0); MONOCYTES % (AUTO) 8 % (0-12); NEUTROPHILS # (AUTO) 7.3 10^3/uL (1.8-7.8); NEUTROPHILS % (AUTO) 73 % (42-75); PLATELET COUNT 151 10^3/uL (130-400)
[2022-10-14 03:30] LABS: INSPIRED O2 65%; PATIENT TEMP 36.8; VENTILATOR YES
[2022-10-14 03:41] LABS: ALBUMIN 3.1 GM/DL (3.2-4.5)
[2022-10-14 03:42] LABS: POTASSIUM 3.8 MMOL/L (3.6-5.0)
[2022-10-14 03:43] LABS: CALCIUM 9.7 MG/DL (8.5-10.1)
[2022-10-14 03:44] LABS: TOTAL PROTEIN 6.6 GM/DL (6.4-8.2)
[2022-10-14 03:46] LABS: BILIRUBIN,TOTAL 0.5 MG/DL (0.1-1.0)
[2022-10-14 03:47] LABS: PHOSPHORUS 2.6 MG/DL (2.3-4.7)
[2022-10-14 03:48] LABS: CREATININE SERUM 3.02 MG/DL (0.60-1.30)
[2022-10-14 03:51] LABS: MAGNESIUM 2.4 MG/DL (1.6-2.4)
[2022-10-14] MEDS: KCL 20 MEQ TAB (K-DUR) PO SCH (04:06)
[2022-10-14] MEDS: MAGNESIUM 1 GM/100 ML IVPB 100 ML IV SCH (04:06)
[2022-10-14] MEDS: POTASSIUM CL 10MEQ/50ML IVPB 50 ML IV SCH (04:06)
[2022-10-14] MEDS: dilTIAZem DRIP PRE-MIX 125 ML IV SCH ×2 (04:22→14:19)
[2022-10-14] MEDS: DexMEDEtomidine 250 ML DRIP 250 ML IV SCH ×3 (05:27→20:26)
--- NOTE | 2022-10-14 06:49 | Occ Therapy Progress Note ---
Therapy Progress Note Pt currently intubated. Pt will need new orders when extubated, until then OT will monitor pt's status, will initiate treatment when new orders are given and pt is medically stable to participate in skilled therapy. JARROD OLIVARES Oct 14, 2022 06:49
[2022-10-14 06:56] VITALS: BP 136/61
[2022-10-14] MEDS: PHENYLEPHRINE DRIP 250 ML IV SCH ×2 (07:16→07:41)
[2022-10-14] MEDS: APAP 325 MG/10.15 ML LIQ (TYLENOL) UDC PO PRN (07:42)
--- NOTE | 2022-10-14 08:01 | Physical Therapy Progress Note ---
Therapy Progress Note Patient currently sedated and intubated. PT will monitor patient's status and initiate treatment when patient is medially stable and able to actively participate with skilled therapy. PARK OCASIO PT Oct 14, 2022 08:01
[2022-10-14] MEDS: FLUCONAZOLE 100 MG/50 ML 50 ML IV SCH (08:23)
[2022-10-14] MEDS: LACTOBACILLUS ACIDOPHILUS (PROBIOTIC) CAPSULE PO SCH (08:23)
[2022-10-14] MEDS: FAMOTIDINE 20 MG (PEPCID) TABLET PO SCH (08:23)
[2022-10-14] MEDS: ASPIRIN 81 MG CHEW (CHILDREN'S ASA) PO SCH ×2 (08:23→20:11)
[2022-10-14] MEDS: NOREPINEPHRINE 8 MG/250 ML 250 ML IV SCH ×2 (08:23→18:23)
[2022-10-14] MEDS: DRONEDARONE 400 MG TABLET PO SCH ×2 (08:23→17:12)
[2022-10-14] MEDS: DOCUSATE SODIUM 100 MG (COLACE) CAP PO SCH ×2 (08:24→20:13)
[2022-10-14] MEDS: LIDOCAINE 4% (SALONPAS) PATCH TOP SCH (08:24)
[2022-10-14] MEDS: MICONAZOLE 2% POWDER (DESENEX AF) 90 GM TOP SCH ×2 (08:24→20:12)
[2022-10-14] MEDS ORDERED: VANCOMYCIN INJECTION 0.1 MG in NS (IVPB) 250 ML IV SCH (08:45)
[2022-10-14] MEDS: D5W 1000 ML IV SOLUTION 1,000 ML IV SCH (09:17)
[2022-10-14] MEDS ORDERED: VANCOMYCIN 2000 MG/NS 500 ML IVPB IV NR ×2 (10:00)
[2022-10-14 10:49] VITALS: BP 144/63
--- NOTE | 2022-10-14 11:28 | Tele-ICU Progress Note ---
Subjective Date Seen by a Provider: Oct 14, 2022 Time Seen by a Provider: 11:28 Subjective/Events-last exam (Tele-ICU Physician , consultation) Available chart/ vitals / labs / Images reviewed H&P is from ER notes Patient's information available about PMH, allergy reviewed in EMR. ROS as per chart and RN report Video assessment done using teleICU camera, rest of exam as per RN Discussed with RN. She is a 72-year-old female with past medical history of type 2 diabetes mellitus, hypertension, morbid obesity, ANKIT, CVA, paroxysmal atrial fibrillation and recently diagnosed with a ESBL E. coli urinary tract infection for which she was discharged on Dr. Saurabh Hawkins Am and now she is readmitted due to overall decline and found to have acute and chronic respiratory failure requiring intubation and put on mechanical ventilation. She is currently on Cardizem drip 10 mg/h and on Nilesh-Synephrine which will try to wean and she did not tolerate. She is also found to have hypernatremia which is getting worse in the last few days also worsening creatinine. I have increased her free water flushes and started on D5W and will recheck her BMP later today. She is currently on 65% FiO2 and she is not ready for SBT given her overall clinical status. Chest x-ray showed bilateral infiltrates which showed slight improvement. Impression acute and chronic respiratory failure due to combination of possibly pneumonia and obesity hypoventilation syndrome associated with obstructive sleep apnea. 2. History of diastolic congestive heart failure 3. Atrial fibrillation with rapid ventricular rate currently on Cardizem drip and cardiology on consultation 4. History of ESBL E. coli urinary tract infection. 5. Acute on chronic kidney disease with hypernatremia 6. Type 2 diabetes mellitus and currently she is on a Levemir and sliding scale coverage 7. History of DVT currently on heparin prophylaxis. Recommendations 1. Continue current mechanical ventilatory support and wean FiO2 as tolerated 2. Continue vancomycin as her sputum culture grew Staph aureus and yeast for her which she is started on fluconazole 3. Increase free water flushes via NG tube and repeat BMP 4. Suggest nephrology consultation 5. Continue IV albumin endocrine phenylephrine) as tolerated. 6. Diltiazem drip per cardiology service 7. DVT prophylaxis and ulcer prophylaxis. Care coordination with bedside consultants and primary care physician. Review of Systems ROS PER RN Sepsis Event Evaluation Height, Weight, BMI Height: 5'6.00" Weight: 118lbs. 0.5oz. 53.085439cm; 43.31 BMI Method:Estimated Exam Exam Patient acknowledged, consented, and participated in this virtual visit which was conducted using real time audio/video Vital Signs Date Time Temp Pulse Resp B/P (MAP) Pulse Ox O2 Delivery O2 Flow Rate FiO2 10/14/22 11:00 87 21 92 Mechanical Ventilator 65.00 124/59 (80) 10/14/22 10:49 78 24 91 65 10/14/22 10:00 101 30 92 Mechanical Ventilator 65.00 129/69 (89) 10/14/22 09:44 79 123/54 10/14/22 09:00 89 22 94 Mechanical Ventilator 65.00 119/64 (82) 10/14/22 08:32 38.5 10/14/22 08:00 79 22 95 Mechanical Ventilator 65.00 123/54 (77) 10/14/22 07:42 38.9 10/14/22 07:41 96 127/55 10/14/22 07:19 38.9 10/14/22 07:12 95 10/14/22 07:00 90 28 93 Mechanical Ventilator 65.00 108/52 (70) 10/14/22 06:56 96 27 92 65 10/14/22 06:00 87 20 92 Mechanical Ventilator 65.00 130/60 (83) 10/14/22 05:00 101 20 93 Mechanical Ventilator 65.00 124/56 (78) 10/14/22 04:22 90 130/61 10/14/22 04:00 95 20 91 Mechanical Ventilator 65.00 127/69 (88) 10/14/22 03:52 92 Mechanical Ventilator 65 10/14/22 03:50 37.2 90 20 92 Mechanical Ventilator 65.00 130/61 (84) 10/14/22 02:00 94 20 95 Mechanical Ventilator 65.00 134/69 (90) 10/14/22 01:48 78 21 95 65 10/14/22 01:37 105 138/77 10/14/22 01:00 104 20 95 Mechanical Ventilator 65.00 136/78 (97) 10/14/22 01:00 104 10/14/22 00:05 37.2 105 20 95 Mechanical Ventilator 65.00 138/77 (97) 10/14/22 00:00 91 20 95 Mechanical Ventilator 75.00 138/77 (97) 10/14/22 00:00 95 Mechanical Ventilator 65 10/13/22 23:38 96 133/77 10/13/22 23:00 102 20 95 Mechanical Ventilator 75.00 147/68 (94) 10/13/22 22:36 96 21 97 70 10/13/22 22:00 93 20 97 Mechanical Ventilator 75.00 139/66 (90) 10/13/22 21:47 96 145/82 10/13/22 21:37 96 145/82 10/13/22 21:37 96 145/82 10/13/22 21:00 101 20 97 Mechanical Ventilator 75.00 137/66 (89) 10/13/22 20:00 37.0 10/13/22 20:00 105 20 96 Mechanical Ventilator 75.00 140/72 (94) 10/13/22 20:00 96 Mechanical Ventilator 70 10/13/22 19:38 96 145/82 10/13/22 19:04 96 28 96 75 10/13/22 19:00 91 20 96 Mechanical Ventilator 75.00 145/82 (103) 10/13/22 19:00 91 10/13/22 18:00 93 24 96 Mechanical Ventilator 75.00 137/64 (88) 10/13/22 17:52 Mechanical Ventilator 75.00 10/13/22 17:38 38.6 10/13/22 17:05 120 136/64 10/13/22 17:00 101 43 94 Mechanical Ventilator 80.00 123/59 (80) 10/13/22 16:52 38.4 10/13/22 16:00 97 Mechanical Ventilator 80 10/13/22 16:00 120 23 93 Mechanical Ventilator 80.00 136/64 (88) 10/13/22 15:00 96 19 93 Mechanical Ventilator 80.00 136/71 (92) 10/13/22 14:28 90 25 94 80 10/13/22 14:00 98 22 95 Mechanical Ventilator 80.00 129/63 (85) 10/13/22 13:00 121 6 94 Mechanical Ventilator 80.00 130/58 (82) 10/13/22 12:51 110 10/13/22 12:42 104 169/68 10/13/22 12:33 38.2 10/13/22 12:15 95 Mechanical Ventilator 80 10/13/22 12:00 104 20 94 Mechanical Ventilator 80.00 139/78 (98) 10/13/22 12:00 38.7 10/13/22 11:29 110 147/62 I & O 10/14/22 07:00 Intake Total 2350 ml Output Total 1675 ml Balance 675 ml Height & Weight Height: 5'6.00" Weight: 118lbs. 0.5oz. 53.702868wr; 43.31 BMI Method:Estimated General Appearance: No Apparent Distress (WHILE BEING SEDATED), Obese, Other (intubated and sedated) HEENT: PERRL/EOMI, Other (obscrued by BiPAP mask) Respiratory: Lungs Clear, No Respiratory Distress, Other (intubated and mechanically ventilated) Cardiovascular: Irregularly Irregular, Tachycardia Capillary Refill: Less Than 3 Seconds Gastrointestinal: soft, no organomegaly Extremity: Pedal Edema, Other (venous stasis dermatitis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: Other (sedated) Skin: Normal Color, Warm/Dry Other comments pe per rn Results Lab Laboratory Tests 10/13/22 03:43 10/14/22 03:14 Assessment/Plan Assessment/Plan as above Critical Care: Ventilator Management Time spent with patient (mins): 35 PEGGY SÁNCHEZ MD Oct 14, 2022 11:28
--- NOTE | 2022-10-14 13:26 | Cardiology Progress Note ---
Subjective Date Seen by Provider: Oct 14, 2022 Time Seen by Provider: 13:25 Subjective/Events-last exam Patient is sedated and intubated. Review of Systems General: Other (Unable to provide review of system) Objective-Cardiology Exam Last Set of Vital Signs Vital Signs 10/14/22 10/14/22 10/14/22 10:49 12:00 12:37 Temp 37.1 Pulse 84 Resp 23 B/P (MAP) 121/50 Pulse Ox 92 O2 Delivery Mechanical Ventilator O2 Flow Rate 65.00 FiO2 65 I&O Intake and Output0 10/14/22 00:00 Intake Total 1920 ml Output Total 1675 ml Balance 245 ml Intake Oral 0 ml IV Total 1360 ml Tube Feeding 50 ml Other 510 ml Output Urine Total 1675 ml General: Other (Sedated and intubated) HEENT: Atraumatic, PERRLA Neck: Supple Lungs: Normal Air Movement, Other (Bilateral rhonchi) Heart: Normal S1, Normal S2, Other (Atrial fibrillation) Abdomen: Normal Bowel Sounds Extremities: No Clubbing, No Cyanosis, Other (Peripheral edema) Skin: No Rashes Neuro: Other (Sedated and intubated) Psych/Mental Status: Other (Sedated and intubated) Results Lab Laboratory Tests 10/14/22 03:14 A/P-Cardiology Admission Diagnosis Acute respiratory failure Urosepsis Atrial fibrillation Acute renal failure Assessment/Plan Acute respiratory failure, ventilator dependent Patient was in progressive renal failure, continue to deteriorate and resulted in intubation Failed weaning. Managed by primary care team UTI, urosepsis, patient is receiving antibiotics and managed by medical team Atrial fibrillation with rapid ventricular response, patient has history of paroxysmal atrial fibrillation, had cardioversion in 2018. Unable to tolerate oral anticoagulation due to recurrent GI bleed. Currently on Cardizem and digoxin. Monitor heart rate and titrate History of recurrent GI bleed, had work-up done in the past. Endoscopy was unsuccessful in the past and determining the source of her bleeding Acute on chronic renal failure, chronic kidney disease stage III. Continue to monitor History of recurrent pleural effusion, had thoracentesis History of CVA with left side paralysis, history of DVT in February 2019 Patient was unable to tolerate oral anticoagulation due to recurrent GI bleed Hypertension, blood pressure is stable, monitor blood pressure Hyperlipidemia, monitor lipids Diabetes mellitus, followed and managed by primary care physician Morbid obesity, BMI 42. FARAZ ALCALA MD Oct 14, 2022 13:26
--- NOTE | 2022-10-14 14:03 | Progress Note - Hospitalist ---
Subjective HPI/CC On Admission Date Seen by Provider: Oct 14, 2022 Time Seen by Provider: 10:10 Pt is a 72yoCF with a PMH of IDDMII, CKD, ESBl E coli UTI, HLD, HTN, morbid obesity, ANKIT, CVA, pAF, chronic respiratory failure who presented to the ER due to overall decline. She is unable to rpovide me any history. Her daughter is at bedside and is able to provide some. She was just admitted to the hospital last week due to UTI and was sent home on IV abx. Daughter states that earlier in the week she was near her baseline and able to talk and feed herself but then took a turn for the worse over the last day or two. This morning she is minimally responsive. She does open eyes and groan with significant verbal stimuli but she otherwise is quite somnolent. In the ER she was found to be hypoxic even on her baseline oxygen and was placed on BiPAP. Daughter confirms she would be ok with intubation if needed. She was admitted for further management of her encephalopathy and respiratory failure. Subjective/Events-last exam She remains intubated and sedated. There is no family at the bedside at this time. Objective Exam Vital Signs Vital Signs Date Time Temp Pulse Resp B/P (MAP) Pulse Ox O2 Delivery O2 Flow Rate FiO2 10/14/22 13:35 98 10/14/22 13:00 21 93 Mechanical Ventilator 65.00 123/56 (78) 10/14/22 12:00 37.1 10/14/22 10:49 65 Capillary Refill : Less Than 3 Seconds General Appearance: No Apparent Distress, Obese Respiratory: Lungs Clear, No Respiratory Distress, Other (intubated and mechanically ventilated) Cardiovascular: Regular Rate, Rhythm, No Murmur Gastrointestinal: Normal Bowel Sounds, Soft Extremity: Normal Inspection, No Pedal Edema Neurologic/Psychiatric: Alert, Normal Mood/Affect Skin: Normal Color, Warm/Dry Results/Procedures Lab Laboratory Tests 10/14/22 03:14 Patient resulted labs reviewed. Imaging: Reviewed Imaging Report Assessment/Plan Assessment and Plan Assess & Plan/Chief Complaint Acute on Chronic Respiratory Failure ANKIT Presumed obesity hypoventilation syndrome Acute HFpEF Endotracheally intubated Poor prognosis TeleICU following CXR with bilateral infiltrates Ventilator requirements slightly improved Pneumonia Sputum culture with yeast and Staph Diflucan Vancomycin AFib with RVR Cardizem Cardiology following UTI Urine culture with no growth s/p Merrem RUEL on CKD Hyponatremia Cr worsened Increase free water boluses Started on gentle D5W Consult nephrology T2DM Levemir SSI HTN HLD pAF Morbid Obesity h/o DVT Home meds as appropriate DVT ppx: Heparin Critical Care Critically Ill Patient Diagnosis/Problems Diagnosis/Problems (1) Acute on chronic respiratory failure Status: Acute Qualifiers: Respiratory failure complication: hypoxia and hypercapnia Qualified Codes: J96.21 - Acute and chronic respiratory failure with hypoxia; J96.22 - Acute and chronic respiratory failure with hypercapnia (2) ANKIT (obstructive sleep apnea) Status: Chronic (3) Obesity hypoventilation syndrome Status: Acute (4) Acute heart failure with preserved ejection fraction (HFpEF) Status: Acute (5) CKD (chronic kidney disease) Status: Chronic Qualifiers: Chronic kidney disease stage: stage 4 (severe) Qualified Codes: N18.4 - Chronic kidney disease, stage 4 (severe) (6) Atrial fibrillation with RVR Status: Acute (7) T2DM (type 2 diabetes mellitus) Status: Chronic Qualifiers: Diabetes mellitus terminal gauger insulin use: with nursing home use (8) Hypernatremia Status: Acute (9) Goals of care, counseling/discussion Status: Acute (10) UTI (urinary tract infection) Status: Acute (11) Morbid obesity Status: Chronic (12) HTN (hypertension) Status: Chronic (13) HLD (hyperlipidemia) Status: Chronic GRIS COOK MD Oct 14, 2022 14:03
[2022-10-14 14:34] VITALS: BP 146/60
[2022-10-14 17:12] LABS: POTASSIUM 3.7 MMOL/L (3.6-5.0)
[2022-10-14 17:13] LABS: CALCIUM 9.4 MG/DL (8.5-10.1)
[2022-10-14 17:17] LABS: CREATININE SERUM 2.96 MG/DL (0.60-1.30)
[2022-10-14] MEDS: SERTRALINE 50 MG (ZOLOFT) TABLET PO SCH (20:11)
[2022-10-14] MEDS: LIDOCAINE PATCH REMOVAL TP SCH (20:13)
[2022-10-14] MEDS: fentaNYL DRIP PRE-MIX 250 ML IV SCH (20:27)
[2022-10-14 22:43] VITALS: BP 137/59
[2022-10-15] MEDS: inSUlin ASPART (NovoLOG) 1 UNIT/0.01 ML (CHARGE PER UNIT) SC SCH ×4 (01:12→17:47)
[2022-10-15] MEDS: ALBUMIN 25% 25 GM/100 ML 50 ML IV SCH ×3 (01:19→17:47)
[2022-10-15 02:06] VITALS: BP 144/62
[2022-10-15] MEDS: RT-ALBUTEROL SULF 2.5 MG/3 ML PRE-MIX VIAL INH SCH ×6 (02:06→22:41)
[2022-10-15 03:04] LABS: BASOPHILS % (AUTO) 0 % (0-10); EOSINOPHILS # (AUTO) 0.3 10^3/uL (0.0-0.3); EOSINOPHILS % (AUTO) 4 % (0-10); HEMATOCRIT 32 % (35-52); HEMOGLOBIN 9.8 g/dL (11.5-16.0); LYMPHOCYTES # (AUTO) 1.3 10^3/uL (1.0-4.0); LYMPHOCYTES % (AUTO) 14 % (12-44); MEAN CORPUSCULAR HEMOGLOBIN 27 pg (25-34); MEAN CORPUSCULAR HGB CONC 30 g/dL (32-36); MEAN CORPUSCULAR VOLUME 90 fL (80-99); MEAN PLATELET VOLUME 12.5 fL (9.0-12.2); MONOCYTES # (AUTO) 0.5 10^3/uL (0.0-1.0); MONOCYTES % (AUTO) 5 % (0-12); NEUTROPHILS # (AUTO) 6.9 10^3/uL (1.8-7.8); NEUTROPHILS % (AUTO) 74 % (42-75); PLATELET COUNT 143 10^3/uL (130-400); WHITE BLOOD COUNT 9.3 10^3/uL (4.3-11.0)
[2022-10-15 03:05] LABS: ABG BASE EXCESS -2.7 MMOL/L (-2.5-2.5); ABG OXYGEN SATURATION 91 % (94-100); ABG PCO2 38 MMHG (35-45); ABG PH 7.38 (7.37-7.43); ABG PO2 61 MMHG (79-93); ABG TCO2 22.7 MMOL/L (21.0-31.0); INSPIRED O2 65%; PATIENT TEMP 37.7; VENTILATOR YES
[2022-10-15 03:25] LABS: ALBUMIN 3.1 GM/DL (3.2-4.5); BILIRUBIN,TOTAL 0.5 MG/DL (0.1-1.0); CALCIUM 9.6 MG/DL (8.5-10.1); CREATININE SERUM 3.4 MG/DL (0.60-1.30); MAGNESIUM 2.3 MG/DL (1.6-2.4); PHOSPHORUS 1.9 MG/DL (2.3-4.7); POTASSIUM 3.8 MMOL/L (3.6-5.0); TOTAL PROTEIN 6.6 GM/DL (6.4-8.2)
[2022-10-15] MEDS: DexMEDEtomidine 250 ML DRIP 250 ML IV SCH ×3 (04:09→19:49)
[2022-10-15] MEDS: NOREPINEPHRINE 8 MG/250 ML 250 ML IV SCH ×2 (04:10→10:33)
[2022-10-15] MEDS: KCL 20 MEQ TAB (K-DUR) PO SCH (04:11)
[2022-10-15] MEDS: POTASSIUM CL 10MEQ/50ML IVPB 50 ML IV SCH (04:11)
[2022-10-15] MEDS: MAGNESIUM 1 GM/100 ML IVPB 100 ML IV SCH (04:11)
--- NOTE | 2022-10-15 06:38 | Occ Therapy Progress Note ---
Therapy Progress Note Pt currently intubated. Pt will need new orders when extubated, until then OT will monitor pt's status, will initiate treatment when new orders are given and pt is medically stable to participate in skilled therapy. JARROD OLIVARES Oct 15, 2022 06:38
[2022-10-15 06:45] VITALS: BP 134/53
--- NOTE | 2022-10-15 07:13 | Physical Therapy Progress Note ---
Therapy Progress Note Patient currently sedated and intubated. PT will monitor patient's status and initiate treatment when patient is medially stable and able to actively participate with skilled therapy. MICHAEL ADAN PT Oct 15, 2022 07:13
--- NOTE | 2022-10-15 07:31 | Cardiology Progress Note ---
Subjective Date Seen by Provider: Oct 15, 2022 Time Seen by Provider: 07:29 Subjective/Events-last exam Patient is sedated and intubated Objective-Cardiology Exam Last Set of Vital Signs Vital Signs 10/15/22 10/15/22 10/15/22 10/15/22 03:48 04:10 06:00 06:45 Temp 37.4 Pulse 98 Resp 25 B/P (MAP) 144/62 Pulse Ox 94 O2 Delivery Mechanical Ventilator O2 Flow Rate 65.00 FiO2 65 I&O Intake and Output 10/15/22 00:00 Intake Total 3885 ml Output Total 1475 ml Balance 2410 ml Intake Oral 0 ml IV Total 1325 ml Tube Feeding 880 ml Other 1680 ml Output Urine Total 1475 ml General: Other (Sedated and intubated) HEENT: Atraumatic, PERRLA Neck: Supple Lungs: Normal Air Movement, Other (Bilateral rhonchi) Heart: Normal S1, Normal S2, Other (Atrial fibrillation) Abdomen: Normal Bowel Sounds Extremities: No Clubbing, No Cyanosis, Other (Peripheral edema) Skin: No Rashes Neuro: Other (Sedated and intubated) Psych/Mental Status: Other (Sedated and intubated) Results Lab Laboratory Tests 10/14/22 16:54 10/15/22 02:49 A/P-Cardiology Admission Diagnosis Acute respiratory failure Urosepsis Atrial fibrillation Acute renal failure Assessment/Plan Acute respiratory failure, ventilator dependent Patient was in progressive renal failure, continue to deteriorate and resulted in intubation Failed weaning. Managed by primary care team UTI, urosepsis, patient is receiving antibiotics and managed by medical team Atrial fibrillation with rapid ventricular response, patient has history of paroxysmal atrial fibrillation, had cardioversion in 2018. Unable to tolerate oral anticoagulation due to recurrent GI bleed. Currently on Cardizem and digoxin. Has been on heparin 5000 units every 8 hours. We will switch to Lovenox once a day and evaluate tolerance and response History of recurrent GI bleed, had work-up done in the past. Endoscopy was unsuccessful in the past and determining the source of her bleeding Slight drop in H&H, continue to monitor Acute on chronic renal failure, chronic kidney disease stage III. Continue to monitor History of recurrent pleural effusion, had thoracentesis History of CVA with left side paralysis, history of DVT in February 2019 Patient was unable to tolerate oral anticoagulation due to recurrent GI bleed Hypertension, blood pressure is stable, monitor blood pressure Hyperlipidemia, monitor lipids Diabetes mellitus, followed and managed by primary care physician Morbid obesity, BMI 42. FARAZ ALCALA MD Oct 15, 2022 07:31
[2022-10-15] MEDS: D5W 1000 ML IV SOLUTION 1,000 ML IV SCH (08:05)
--- NOTE | 2022-10-15 08:34 | Consultation ---
History of Present Illness History of Present Illness Patient Consulted On(joseph/time) 10/15/22 08:34 Date Seen by Provider: Oct 15, 2022 Time Seen by Provider: 08:34 Reason for Visit: Atrial fibrillation History of Present Illness Mrs. Harris is a very pleasant 72 y/o WF with a h/o IDDMII, CKD, ESBl E coli UTI, HLD, HTN, morbid obesity, ANKIT, CVA, pAF, chronic respiratory failure who presented to the ER due to hypoxic respiratory failure requiring bipap. She was just admitted to the hospital last week due to UTI and was sent home on IV abx. Pt's daughter is at bedside and provided history. She stated that her mom has resided at [facility] since 2011 when she suffered a stroke leaving her with one sided paralysis. she is wheelchair bound. Allergies and Home Medications Allergies Coded Allergies: sulfamethoxazole (Verified Allergy, Unknown, 10/13/17) trimethoprim (Verified Allergy, Unknown, 10/13/17) Patient Home Medication List Home Medication List Reviewed: Yes Acetaminophen (Acetaminophen) 500 Mg Tablet, 1,000 MG PO Q6H PRN for PAIN-MILD OR TEMPATURE, (Reported) Entered as Reported by: TAMIKO RASHEED on 08/29/17 1202 Last Action: Held Aspirin (Aspirin EC) 81 Mg Tablet.dr, 81 MG PO BID, (Reported) Entered as Reported by: NELIA KING on 07/22/20 1134 Last Action: Continued Bethanechol Chloride (Urecholine) 10 Mg Tablet, 10 MG PO BID, (Reported) Entered as Reported by: NELIA KING on 10/02/22 1145 Last Action: Held Bisacodyl (Dulcolax) 10 Mg Supp.rect, 10 MG RC DAILY PRN for CONSTIPATION-4TH LINE, (Reported) Entered as Reported by: DASH HOWELL on 06/26/21 1855 Last Action: Held Calcitriol (Calcitriol) 0.5 Mcg Capsule, 0.5 MCG PO DAILY, (Reported) Entered as Reported by: Delaney Danielle on 08/29/22 1145 Last Action: Held Calcium Acetate (Calcium Acetate) 667 Mg Tablet, 667 MG PO DAILY, (Reported) Entered as Reported by: Delaney Danielle on 08/29/22 1145 Last Action: Held Cholecalciferol (Vitamin D3) (Vitamin D3) 125 Mcg Capsule, 125 MCG PO DAILY, (Reported) Entered as Reported by: DASH HOWELL on 06/26/21 1456 Last Action: Held Cranberry Extract (Cranberry) 500 Mg Tablet, 1,000 MG PO DAILY, (Reported) Entered as Reported by: JORGE ASH on 10/13/17 1023 Last Action: Held Dapagliflozin Propanediol (Farxiga) 10 Mg Tablet, 10 MG PO DAILY, (Reported) Entered as Reported by: Delaney Danielle on 08/29/22 114 Last Action: Held Dextran 70/Hypromellose/Pf (Artificial Tears Drops) 0.1 %-0.3 % Droperette, 1 EACH OU UD PRN for DRY EYES, (Reported) Entered as Reported by: Delaney Danielle on 08/29/22 114 Last Action: Held Diltiazem HCl (Diltiazem 24Hr ER) 240 Mg Cap.er.24h, 240 MG PO DAILY, (Reported) Entered as Reported by: NELIA KING on 10/02/22 1145 Last Action: Continued Docusate Sodium (Colace) 100 Mg Capsule, 100 MG PO BID, (Reported) Entered as Reported by: JANELLE DURHAM on 09/15/18 0928 Last Action: Continued Dronedarone HCl (Multaq) 400 Mg Tablet, 400 MG PO 0800,1730, (Reported) Entered as Reported by: NELIA KING on 10/02/22 114 Last Action: Continued Dulaglutide (Trulicity) 0.75 Mg/0.5 Ml Pen.injctr, 7.5 MG SQ WEEK, (Reported) Entered as Reported by: Delaney Danielle on 08/29/22 114 Last Action: Held Ertapenem Sodium (Ertapenem) 1 Gram Vial, 1 GM IV DAILY, (Reported) Entered as Reported by: NELIA KING on 10/09/22 1158 Last Action: Held Eyelid Cleanser Combination #3 (Ocusoft Lid Scrub Plus) 1 Each Med..pad, 1 EACH OU UD PRN for EYELID IRRITATION, (Reported) Entered as Reported by: Delaney Danielle on 08/29/22 114 Last Action: Held Famotidine (Pepcid) 20 Mg Tablet, 20 MG PO DAILY, (Reported) Entered as Reported by: NELIA KING on 04/22/20848 Last Action: Continued Ferrous Sulfate (Iron) 325 Mg Tablet, 325 MG PO DAILY, (Reported) Entered as Reported by: JORGE ASH on 10/13/17 1023 Last Action: Held Fluticasone Propionate (Flonase Allergy Relief) 9.9 Ml [place].susp, 2 SPRAY NSEACH DAILY, (Reported) Entered as Reported by: DASH HOWELL on 06/26/211854 Last Action: Held Furosemide (Furosemide) 20 Mg Tablet, 20 MG PO 1500, (Reported) Entered as Reported by: NELIA KING on 10/09/22 115 Last Action: Held Gabapentin (Neurontin) 300 Mg Capsule, 300 MG PO 0800,1730, (Reported) Entered as Reported by: NELIA KING on 10/02/22 114 Last Action: Held Gluc Angulo/Chondro Angulo A/Vit C/Mn (Glucosamine Chondroitin Tab) 1 Each Tablet, 2 TAB PO DAILY, (Reported) Entered as Reported by: JORGE ASH on 10/13/17 1023 Last Action: Held Guaifenesin (Guaifenesin) 100 Mg/5 Ml Liquid, 10 ML PO Q4H PRN for COUGH/COLD/ALLERGY, (Reported) Entered as Reported by: NELIA KING on 10/02/22 114 Last Action: Held Hydroxyzine Pamoate (Hydroxyzine Pamoate) 25 Mg Capsule, 25 MG PO HS, (Reported) Entered as Reported by: NELIA KING on 04/22/20848 Last Action: Held Insulin Aspart (Novolog) 100 Unit/1 Ml Susp, 30 UNIT SQ TID, (Reported) Entered as Reported by: NELIA KING on 04/22/20848 Last Action: Held Insulin Detemir (Levemir Flextouch) 100 Unit/Ml (3 Ml) Insuln.pen, 36 UNIT SQ BID, (Reported) Entered as Reported by: DASH HOWELL on 06/26/211854 Last Action: Held Ipratropium/Albuterol Sulfate (Iprat-Albut 0.5-3(2.5) mg/3 ml) 3 Ml Ampul.neb, 3 ML IH Q6H PRN for SHORTNESS OF BREATH, (Reported) Entered as Reported by: DASH HOWELL on 06/26/21 1855 Last Action: Held Krill/Om-3/Dha/Epa/Phospho/Ast (Krill Oil 500 mg Softgel) 500MG-86MG Capsule, 2 EACH PO DAILY, (Reported) Entered as Reported by: NELIA KING on 10/02/22 114 Last Action: Held L. Acidophilus/L.bulgaricus (Lactobacillus Tablet) 1 Million Cell Tablet, 1 EACH PO DAILY, (Reported) Entered as Reported by: NELIA KING on 10/02/22 114 Last Action: Converted Lidocaine (Lidocaine 5% Patch) 5 % Adh..patch, 1 PATCH TD DAILY, (Reported) Entered as Reported by: NELIA KING on 10/02/22 114 Last Action: Continued Magnesium Hydroxide (Milk of Magnesia) 2,400 Mg/10 Ml Oral.susp, 10 ML PO DAILY PRN for CONSTIPATION-7TH LINE, (Reported) Entered as Reported by: Delaney Danielle on 08/29/22 1145 Last Action: Held Melatonin (Melatonin) 3 Mg Tablet, 3 MG PO HS, (Reported) Entered as Reported by: JORGE ASH on 10/13/17 1023 Last Action: Held Metoprolol Succinate (Metoprolol Succinate) 100 Mg Tab.er.24h, 100 MG PO DAILY, (Reported) Entered as Reported by: JANELLE DURHAM on 04/09/16 1445 Last Action: Held Miconazole Nitrate (Miconazole Nitrate) 10 Gm Powder, 1 APPLIC TOP BID, (Reported) Entered as Reported by: JORGE ASH on 04/20/19 1151 Last Action: Held Nystatin (Nystatin) 100,000 Unit/Gram Cream..g., 1 APPLIC TOP DAILY, (Reported) Entered as Reported by: NELIA KING on 10/02/22 114 Last Action: Held Sertraline HCl (Sertraline HCl) 50 Mg Tablet, 50 MG PO HS, (Reported) Entered as Reported by: NELIA KING on 04/22/20 0849 Last Action: Continued Tiotropium [place] (Spiriva Respimat 2.5MCG/ACTUATION) 4 Gm Mist.inhal, 2 PUFF IH DAILY, (Reported) Entered as Reported by: DASH HOWELL on 06/26/21 1855 Last Action: Held Zinc Amino Acid Chelate (Zinc) 50 Mg Tablet, 50 MG PO DAILY, (Reported) Entered as Reported by: Delaney Danielle on 08/29/22 1145 Last Action: Held Discontinued Medications Ertapenem Sodium (Ertapenem) 1 Gram Vial, 1 GM IV DAILY Discontinued Reason: Duplicate Order Prescribed by: GRIS COOK on 10/02/22 1300 Last Action: Discontinued Nystatin (Nystatin) 100,000 Unit/Ml Oral.susp, 15 ML PO QID, (Reported) Discontinued Reason: No Longer Taking Entered as Reported by: NELIA KING on 10/02/22 1145 Last Action: Discontinued Past Femumdu-Lejrdr-Mhwrgl Hx Patient Social History Tobacco Use?: No Smoking Status: Former Smoker Use of E-Cig and/or Vaping dev: No Substance use?: No Alcohol Use?: No Pt feels they are or have been: Unable to obtain Immunizations Up To Date Tetanus Booster (TDap): Unknown PED Vaccines UTD: No Influenza Vaccine Up-to-Date: No; Not Current First/Initial COVID19 Vaccinat: SEPTEMBER 19, 2020 Second COVID19 Vaccination Joseph: OCTOBER 09, 2020 Third COVID19 Vaccination Date: N/A Seasonal Allergies Seasonal Allergies: No Past Medical History Surgery/Hospitalization HX: SEE [facility] Surgeries: Yes Joint Replacement, Nose, Orthopedic Respiratory: Yes COPD Currently Using CPAP: No Currently Using BIPAP: No Cardiac: Yes Atrial Fibrillation, Chronic Edema/Swelling, Coronary Artery Disease, High Cholesterol, Hypertension Neurological: Yes (STOKE LEFT SIDE WEAKNESS) Neuropathy, Stroke 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 Disorders: No 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 History: Menopausal Genitourinary: Yes (CHRONIC KIDNEY DISEASE STAGE 3) UTI-Chronic Gastrointestinal: Yes Gastroesophageal Reflux, Chronic Constipation, Hemorrhoids, Ulcer Musculoskeletal: Yes (SPASMS IN L ARM FROM STROKE) Arthritis Endocrine: Yes Diabetes, Insulin dep HEENT: Yes Dysphagia Loss of Vision: Denies Hearing Impairment: Denies Cancer: No Psychosocial: Yes Sleep Difficulties, Anxiety, Depression Integumentary: No Blood Disorders: No Family Medical History Completed stroke 19 FATHER G8 BROTHER Diabetes mellitus G8 BROTHER Hypertension 19 FATHER 19 MOTHER No Pertinent Family Hx Review of Systems-General ROS-Unable to Obtain: not obtainable Physical Exam-General Problems Physical Exam Vital Signs Vital Signs - First Documented 10/09/22 10/09/22 00:00 00:25 Temp 36.3 Pulse 80 Resp 24 B/P (MAP) 120/78 (92) Pulse Ox 92 O2 Delivery NIV Bilevel O2 Flow Rate 50.00 FiO2 36 Capillary Refill : Less Than 3 Seconds General Appearance: no apparent distress Respiratory: lungs clear Cardiovascular: no edema, no JVD Skin: normal color, warm/dry Assessment/Plan Assessment/Plan Admission Diagnosis/Plan Renal u/s 05/2022 FINDINGS: Right kidney measures 11 x 4.7 x 5.3 cm. Left kidney measures 9.8 x 6 x 5.9 cm. Both kidneys grossly demonstrate normal renal cortical thickness and echogenicity. There is no hydronephrosis, calculi or mass. Overall examination is somewhat limited due to patient's body habitus and inability to hold breath. Neither ureteral jet was visualized IMPRESSION: Unremarkable sonographic appearance of the kidneys. Assessment and Plan: RUEL on CKD 4 baseline ~2.0, due to diabetic nephropathy Ruel due to hypotension in setting of infection and afib with rvr in addition to poor po intake avoiding nephrotoxins renally dose meds renal function continues to worsen making urine monitor vanc level no urgent indication for dialysis but likely headed in that direction consider transferring to [facility] in the next day if no improvement discussed with family and pt's daughter and sons want everything done including dialysis Hypernatremia due to free water deficit from poor po intake will avoid use of D5w given hypergycemia on free water flushes with tube feeds: 300ml q4hr tele ICU managing avoid use of ns Acute on chronic resp failure now intubated after failing bipap on broad spectrum abx f/u culture results Hypotension on 1 pressor wean as able Afib with rvr rate controlled cardiology consulted on ccb thank you for allowing me to participate in the care of Mrs. Harris. Admission Status: Inpatient Order (span 2 midnights) RADHA PAREDES MD Oct 15, 2022 08:34
[2022-10-15] MEDS: LIDOCAINE 4% (SALONPAS) PATCH TOP SCH (08:35)
[2022-10-15] MEDS: ASPIRIN 81 MG CHEW (CHILDREN'S ASA) PO SCH ×2 (08:35→20:35)
[2022-10-15] MEDS: DRONEDARONE 400 MG TABLET PO SCH ×2 (08:35→17:48)
[2022-10-15] MEDS: LACTOBACILLUS ACIDOPHILUS (PROBIOTIC) CAPSULE PO SCH (08:35)
[2022-10-15] MEDS: FLUCONAZOLE 100 MG/50 ML 50 ML IV SCH (08:35)
[2022-10-15] MEDS: FAMOTIDINE 20 MG (PEPCID) TABLET PO SCH (08:35)
[2022-10-15] MEDS: DOCUSATE SODIUM 100 MG (COLACE) CAP PO SCH ×2 (08:36→20:36)
[2022-10-15] MEDS: MICONAZOLE 2% POWDER (DESENEX AF) 90 GM TOP SCH ×2 (08:42→20:35)
[2022-10-15] MEDS ORDERED: D5W 1000 ML IV SOLUTION 1,000 ML IV SCH (08:45)
[2022-10-15] MEDS ORDERED: TROUGH ORDER-PHARMACY XX NR (09:00)
[2022-10-15] MEDS ORDERED: ENOXAPARIN 300 MG/3 ML (LOVENOX) MULTI-DOSE VIAL SQ SCH (09:00)
[2022-10-15] MEDS: PHENYLEPHRINE DRIP 250 ML IV SCH (09:59)
[2022-10-15] MEDS: VANCOMYCIN 1500 MG/NS 500 ML IVPB IV SCH ×4 (10:17→11:52)
[2022-10-15 10:42] VITALS: BP 118/54
--- NOTE | 2022-10-15 11:19 | Tele-ICU Progress Note ---
Subjective Date Seen by a Provider: Oct 15, 2022 Time Seen by a Provider: 11:18 Subjective/Events-last exam (Tele-ICU Physician , Progress Note ) Service provided via interactive audio and video telecommunications E-CARE system to a patient admitted to ICU bed in [facility]. Patient is seen today due to persistent need of ICU care Available chart/ vitals / labs / Images reviewed Video assessment done using teleICU camera, rest of exam as per RN Discussed with RN Events overnight : FEBRILE hemodynamically unstable Respiratory - 75% I/O = even Drips: Pressors- lc 25 , OFF levo , cardizem gtt 5 VENT SETTINGS and ABG reviewed NOT CANDIDATE for SBTreviewed possible contraindications including Cardiovascular Stability /Sedation Score / FI02/PEEP / ABG / CXR/ secretions Sedation, discussed with RN, RASS -1 fent 50 precedex 1 Consultants: Hospital course: (10/08) 72F Admitted for AMS from OR. Chronic UTI (just DC'd from hosp recently), acute on chronic renal failure, Decubitus ulcers right posterior thigh (10/09) TX to ICU d/t increased lethargy despite bipap and improving ABG 10/12 intubated 20-500- 80% +10 70 % 10/13- RUEL 2/2 - AC 20-500 75% + 10 . - renal consulted Cr 3.4 A/P Acute resp failure - 10/12 intubated AC 20-500 75% + 10 - = secretions ( cx yeast , staph ) Shock - on lc - IVF as per renal Possible PNA on right - follow sputum cx and cont abx , 10/13 added difflucan given + sputum cx and fever - cx yeast , staph UTI recent admission wit UTI - ecoli and and proteus , was TX with meropenem based on sens - MErrem FINISHED 10/12 RUEL/CKD - probaly due to infectio / acidosis and tachycardia / hypotension - will cont hydration PRN ( ECHO 2018 EF 55% ) 2/2 - renal consulted , consider HD - DM II - ISS h/o PAF- RVR 10/12 - given cardizem IV , dig - now on cardizem gtt - cards follow - s/p cardioversion April 2019, maintained on Cardizem and Multaq - recived this am -"unable to tolerate oral anticoagulation due to recurrent GI bleed-" as per chart Anemia- stable - h/o GIB in past , no sourse on endoscopy lethargy - CTH - neg 10/08, CO2 at baseline now on bipap - no NEW neuro-defiit , ( h/o CVA - left side wekness) - responds to stimulis now on sedation Hypernatremia - add h20 flashes h/o DVT in February 2019 -unable to tolerate oral anticoagulation due to recurrent GI bleed Lines : right IJ 10/12 , (Central Line Necessity Reviewed) Aguiar: new 10/08 OG: Nutrition: TF start 10/13- at goal Analgesia: Anxiety/ delirium VTE Prophylaxis: lovenox 130 bid - pharm to follow with Cr Stress Ulcer Prophylaxis: pepcid Plans in collaboration with bedside consultants and IM MDs. Discussed with RN to reach out if any questions or concerns A total of 35 minutes of critical care time was devoted to this patient today, required to treat and/or prevent further deterioration of critical care condition ( as above ) . I am remotely monitoring this patient from another state. I am unable to do the bedside exam, and history/physical and pertinent information is taken from other notes in the computer and bedside staff. . Sepsis Event Evaluation Height, Weight, BMI Height: 5'6.00" Weight: 118lbs. 0.5oz. 53.053250th; 42.33 BMI Method:Estimated Exam Exam Patient acknowledged, consented, and participated in this virtual visit which was conducted using real time audio/video Vital Signs Date Time Temp Pulse Resp B/P (MAP) Pulse Ox O2 Delivery O2 Flow Rate FiO2 10/15/22 10:42 101 25 90 75 10/15/22 10:00 89 27 91 Mechanical Ventilator 75.00 114/54 (74) 10/15/22 09:59 100 109/59 10/15/22 09:00 112 25 92 Mechanical Ventilator 75.00 117/53 (74) 10/15/22 08:37 103 10/15/22 08:00 109 25 93 Mechanical Ventilator 65.00 122/61 (81) 10/15/22 07:58 Mechanical Ventilator 75.00 10/15/22 07:54 37.3 10/15/22 07:00 89 24 90 Mechanical Ventilator 65.00 120/63 (82) 10/15/22 06:45 98 25 94 65 10/15/22 06:39 97 10/15/22 06:00 104 26 95 Mechanical Ventilator 65.00 120/58 (78) 10/15/22 05:00 108 24 94 Mechanical Ventilator 65.00 115/58 (77) 10/15/22 04:10 104 144/62 10/15/22 04:09 104 144/62 10/15/22 04:00 103 23 94 Mechanical Ventilator 65.00 118/48 (71) 10/15/22 03:48 37.4 20 Mechanical Ventilator 65.00 10/15/22 03:39 93 Mechanical Ventilator 65 10/15/22 03:00 95 24 92 Mechanical Ventilator 65.00 124/58 (80) 10/15/22 02:06 104 24 93 65 10/15/22 02:00 97 23 93 Mechanical Ventilator 65.00 118/55 (76) 10/15/22 01:36 90 103/50 10/15/22 01:00 84 23 93 Mechanical Ventilator 65.00 124/56 (78) 10/15/22 01:00 81 10/15/22 00:26 90 137/59 10/15/22 00:26 90 137/59 10/15/22 00:00 93 26 93 Mechanical Ventilator 65.00 116/55 (75) 10/15/22 00:00 37.7 20 Mechanical Ventilator 65.00 10/15/22 00:00 95 Mechanical Ventilator 65 10/14/22 23:00 98 26 98 Mechanical Ventilator 65.00 120/59 (79) 10/14/22 22:43 90 27 92 65 10/14/22 22:00 86 21 93 Mechanical Ventilator 65.00 124/58 (80) 10/14/22 21:00 113 21 93 Mechanical Ventilator 65.00 122/54 (76) 10/14/22 20:27 113 115/47 10/14/22 20:26 113 115/47 10/14/22 20:00 98 24 93 Mechanical Ventilator 65.00 115/47 (69) 10/14/22 19:42 94 Mechanical Ventilator 65 10/14/22 19:37 37.5 10/14/22 19:00 95 24 94 Mechanical Ventilator 65.00 120/56 (77) 10/14/22 19:00 100 10/14/22 18:00 113 24 93 Mechanical Ventilator 65.00 115/47 (69) 10/14/22 17:00 97 26 94 Mechanical Ventilator 65.00 109/52 (71) 10/14/22 16:45 92 122/50 10/14/22 16:15 93 Mechanical Ventilator 65 10/14/22 16:00 92 28 92 Mechanical Ventilator 65.00 122/50 (74) 10/14/22 15:00 106 26 91 Mechanical Ventilator 65.00 122/62 (82) 10/14/22 14:34 105 24 91 65 10/14/22 14:19 98 112/62 10/14/22 14:00 87 22 92 Mechanical Ventilator 65.00 112/61 (78) 10/14/22 13:35 98 10/14/22 13:00 104 21 93 Mechanical Ventilator 65.00 123/56 (78) 10/14/22 12:40 94 Mechanical Ventilator 65 10/14/22 12:37 84 121/50 10/14/22 12:00 37.1 10/14/22 12:00 84 23 92 Mechanical Ventilator 65.00 125/55 (78) I & O 10/15/22 07:00 Intake Total 4150 ml Output Total 1225 ml Balance 2925 ml Height & Weight Height: 5'6.00" Weight: 118lbs. 0.5oz. 53.392083kx; 42.33 BMI Method:Estimated General Appearance: No Apparent Distress, Obese HEENT: PERRL/EOMI, Other (obscrued by BiPAP mask) Respiratory: Lungs Clear, No Respiratory Distress, Other (intubated and mechanically ventilated) Cardiovascular: Regular Rate, Rhythm, No Murmur Capillary Refill: Less Than 3 Seconds Gastrointestinal: soft, no organomegaly Extremity: Normal Inspection, No Pedal Edema Neurologic/Psychiatric: Alert, Normal Mood/Affect Skin: Normal Color, Warm/Dry Results Lab Laboratory Tests 10/14/22 03:14 10/14/22 16:54 10/15/22 02:49 Assessment/Plan Assessment/Plan 1 ARASH KAUR MD Oct 15, 2022 11:19
[2022-10-15] MEDS: APAP 325 MG/10.15 ML LIQ (TYLENOL) UDC PO PRN (11:49)
[2022-10-15] MEDS: dilTIAZem DRIP PRE-MIX 125 ML IV SCH (14:10)
[2022-10-15] MEDS ORDERED: VANCOMYCIN 1 GM/NS 250 ML IVPB IV SCH ×2 (15:00)
[2022-10-15 15:25] VITALS: BP 104/61
--- NOTE | 2022-10-15 16:13 | Progress Note - Hospitalist ---
Subjective HPI/CC On Admission Date Seen by Provider: Oct 15, 2022 Time Seen by Provider: 09:55 Pt is a 72yoCF with a PMH of IDDMII, CKD, ESBl E coli UTI, HLD, HTN, morbid obesity, ANKIT, CVA, pAF, chronic respiratory failure who presented to the ER due to overall decline. She is unable to rpovide me any history. Her daughter is at bedside and is able to provide some. She was just admitted to the hospital last week due to UTI and was sent home on IV abx. Daughter states that earlier in the week she was near her baseline and able to talk and feed herself but then took a turn for the worse over the last day or two. This morning she is minimally responsive. She does open eyes and groan with significant verbal stimuli but she otherwise is quite somnolent. In the ER she was found to be hypoxic even on her baseline oxygen and was placed on BiPAP. Daughter confirms she would be ok with intubation if needed. She was admitted for further management of her encephalopathy and respiratory failure. Subjective/Events-last exam She remains intubated and sedated. Objective Exam Vital Signs Vital Signs Date Time Temp Pulse Resp B/P (MAP) Pulse Ox O2 Delivery O2 Flow Rate FiO2 10/15/22 16:01 36.6 10/15/22 15:25 92 27 93 75 10/15/22 14:10 109/54 10/15/22 14:00 Mechanical Ventilator 75.00 Capillary Refill : Less Than 3 Seconds General Appearance: No Apparent Distress, Obese, Other (intubated and sedated) Respiratory: No Respiratory Distress, Decreased Breath Sounds, Other (intubated and mechanically ventilated) Gastrointestinal: Normal Bowel Sounds, Soft Extremity: Normal Inspection, Pedal Edema Neurologic/Psychiatric: Other (sedated) Results/Procedures Lab Laboratory Tests 10/14/22 16:54 10/15/22 02:49 Patient resulted labs reviewed. Imaging: Reviewed Imaging Report Assessment/Plan Assessment and Plan Assess & Plan/Chief Complaint Acute on Chronic Respiratory Failure ANKIT Presumed obesity hypoventilation syndrome Acute HFpEF Endotracheally intubated Poor prognosis TeleICU following CXR with bilateral infiltrates Ventilator requirements stable Pneumonia Sputum culture with yeast and Staph Diflucan Vancomycin AFib with RVR Cardizem Cardiology following UTI Urine culture with no growth s/p Merrem RUEL on CKD Hyponatremia Cr worsening Continue free water boluses Stop IV fluids Nephrology consulted, may need transfer for dialysis in the next day or two T2DM Levemir SSI HTN HLD pAF Morbid Obesity h/o DVT Home meds as appropriate DVT ppx: Heparin Critical Care Critically Ill Patient Diagnosis/Problems Diagnosis/Problems (1) Acute on chronic respiratory failure Status: Acute Qualifiers: Respiratory failure complication: hypoxia and hypercapnia Qualified Codes: J96.21 - Acute and chronic respiratory failure with hypoxia; J96.22 - Acute and chronic respiratory failure with hypercapnia (2) ANKIT (obstructive sleep apnea) Status: Chronic (3) Obesity hypoventilation syndrome Status: Acute (4) Acute heart failure with preserved ejection fraction (HFpEF) Status: Acute (5) CKD (chronic kidney disease) Status: Chronic Qualifiers: Chronic kidney disease stage: stage 4 (severe) Qualified Codes: N18.4 - Chronic kidney disease, stage 4 (severe) (6) Atrial fibrillation with RVR Status: Acute (7) T2DM (type 2 diabetes mellitus) Status: Chronic Qualifiers: 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
--- NOTE | 2022-10-15 16:14 | Diagnostic Imaging Report ---
Indication: Respiratory failure. Compared: 10/13/2022 Findings: ET tube lower thoracic trachea, right IJ lower SVC. Patchy 5 lobe multifocal pulmonary infiltrates are unchanged. No pneumothorax. No obvious pleural fluid. Impression: 5 lobe infiltrates and support apparatus unchanged. Dictated by: Dictated on workstation # [id number]
[2022-10-15 19:25] VITALS: BP 103/56
[2022-10-15] MEDS: SERTRALINE 50 MG (ZOLOFT) TABLET PO SCH (20:35)
[2022-10-15] MEDS: LIDOCAINE PATCH REMOVAL TP SCH (20:36)
[2022-10-15 22:41] VITALS: BP 100/60
[2022-10-15] MEDS: fentaNYL DRIP PRE-MIX 250 ML IV SCH (23:00)
[2022-10-16] MEDS: inSUlin ASPART (NovoLOG) 1 UNIT/0.01 ML (CHARGE PER UNIT) SC SCH ×2 (00:25→06:08)
[2022-10-16] MEDS: NOREPINEPHRINE 8 MG/250 ML 250 ML IV SCH (01:07)
[2022-10-16] MEDS: ALBUMIN 25% 25 GM/100 ML 50 ML IV SCH ×2 (02:07→09:22)
[2022-10-16 02:43] VITALS: BP 119/55
[2022-10-16] MEDS: RT-ALBUTEROL SULF 2.5 MG/3 ML PRE-MIX VIAL INH SCH ×2 (02:43→06:56)
[2022-10-16] MEDS: DexMEDEtomidine 250 ML DRIP 250 ML IV SCH ×2 (03:07→10:24)
[2022-10-16 03:41] LABS: EOSINOPHILS # (AUTO) 0.4 10^3/uL (0.0-0.3); EOSINOPHILS % (AUTO) 4 % (0-10); HEMATOCRIT 31 % (35-52); HEMOGLOBIN 9.4 g/dL (11.5-16.0); LYMPHOCYTES % (AUTO) 11 % (12-44); MEAN CORPUSCULAR HEMOGLOBIN 27 pg (25-34); MEAN CORPUSCULAR HGB CONC 30 g/dL (32-36); MEAN CORPUSCULAR VOLUME 91 fL (80-99); NEUTROPHILS % (AUTO) 80 % (42-75); PLATELET COUNT 154 10^3/uL (130-400)
[2022-10-16 03:42] LABS: ABG BASE EXCESS -4.4 MMOL/L (-2.5-2.5); ABG OXYGEN SATURATION 88 % (94-100); ABG PCO2 37 MMHG (35-45); ABG PH 7.36 (7.37-7.43); ABG PO2 53 MMHG (79-93); ABG TCO2 21.5 MMOL/L (21.0-31.0)
[2022-10-16 03:43] LABS: ALLENS TEST YES-POS; INSPIRED O2 75%; PATIENT TEMP 36.4; VENTILATOR YES
[2022-10-16 03:43] LABS: BASOPHILS % (AUTO) 0 % (0-10); LYMPHOCYTES # (AUTO) 1.1 10^3/uL (1.0-4.0); MEAN PLATELET VOLUME 12.9 fL (9.0-12.2); MONOCYTES # (AUTO) 0.4 10^3/uL (0.0-1.0); MONOCYTES % (AUTO) 3 % (0-12); NEUTROPHILS # (AUTO) 8.1 10^3/uL (1.8-7.8); WHITE BLOOD COUNT 10.2 10^3/uL (4.3-11.0)
[2022-10-16 04:03] LABS: BILIRUBIN,TOTAL 0.5 MG/DL (0.1-1.0); CALCIUM 9.2 MG/DL (8.5-10.1); CREATININE SERUM 4.31 MG/DL (0.60-1.30); MAGNESIUM 2.4 MG/DL (1.6-2.4); PHOSPHORUS 2.9 MG/DL (2.3-4.7); POTASSIUM 3.9 MMOL/L (3.6-5.0); TOTAL PROTEIN 6.3 GM/DL (6.4-8.2)
[2022-10-16 04:12] LABS: SMEAR SCAN COMMENT YES
[2022-10-16] MEDS: POTASSIUM CL 10MEQ/50ML IVPB 50 ML IV SCH (06:05)
[2022-10-16] MEDS: MAGNESIUM 1 GM/100 ML IVPB 100 ML IV SCH (06:05)
[2022-10-16] MEDS: KCL 20 MEQ TAB (K-DUR) PO SCH (06:05)
--- NOTE | 2022-10-16 06:39 | Occ Therapy Progress Note ---
Therapy Progress Note Pt is currently intubated. OT to monitor pt's status then will initiate treatment when pt is medically stable and able to actively participate in skilled therapy. JARROD OLIVARES Oct 16, 2022 06:39
[2022-10-16 06:55] VITALS: BP 120/56
--- NOTE | 2022-10-16 07:15 | Physical Therapy Progress Note ---
Therapy Progress Note PT to remove patient from scheduled service. PT will require new orders when patient is deemed medically stable and able to actively participate with skilled therapy. MICHAEL ADAN PT Oct 16, 2022 07:15
[2022-10-16] MEDS: DOCUSATE SODIUM 100 MG (COLACE) CAP PO SCH (08:03)
[2022-10-16] MEDS: ASPIRIN 81 MG CHEW (CHILDREN'S ASA) PO SCH (08:03)
[2022-10-16] MEDS: LACTOBACILLUS ACIDOPHILUS (PROBIOTIC) CAPSULE PO SCH (08:03)
[2022-10-16] MEDS: DRONEDARONE 400 MG TABLET PO SCH (08:03)
[2022-10-16] MEDS: FAMOTIDINE 20 MG (PEPCID) TABLET PO SCH (08:03)
[2022-10-16] MEDS: PHENYLEPHRINE DRIP 250 ML IV SCH ×2 (08:04→10:24)
[2022-10-16] MEDS: FLUCONAZOLE 100 MG/50 ML 50 ML IV SCH (08:41)
[2022-10-16] MEDS: LIDOCAINE 4% (SALONPAS) PATCH TOP SCH (08:46)
--- NOTE | 2022-10-16 08:57 | Tele-ICU Progress Note ---
Subjective Date Seen by a Provider: Oct 16, 2022 Time Seen by a Provider: 08:03 Subjective/Events-last exam (Tele-ICU Physician , Progress Note ) Service provided via interactive audio and video telecommunications E-CARE system to a patient admitted to ICU bed in [facility]. Patient is seen today due to persistent need of ICU care Available chart/ vitals / labs / Images reviewed Video assessment done using teleICU camera, rest of exam as per RN Discussed with RN Events overnight : FEBRILE hemodynamically unstable Respiratory - 75% I/O = even Drips: Pressors- lc 25 , OFF levo , cardizem gtt 5 VENT SETTINGS and ABG reviewed NOT CANDIDATE for SBTreviewed possible contraindications including Cardiovascular Stability /Sedation Score / FI02/PEEP / ABG / CXR/ secretions Sedation, discussed with RN, RASS -1 fent 50 precedex 1 Consultants: Hospital course: (10/08) 72F Admitted for AMS from [place]. Chronic UTI (just DC'd from hosp recently), acute on chronic renal failure, Decubitus ulcers right posterior thigh (10/09) TX to ICU d/t increased lethargy despite bipap and improving ABG 10/12 intubated 20-500- 80% +10 100 % 10/13- RUEL 2/2 - AC 20-500 75% + 10 . - renal consulted 2/3 fio2 100) peep 10 A/P Acute resp failure - 10/12 intubated AC 20-500 100% + 10 with VO and RUEL - needs HD , lkeep sedated for now and increase peep prn - = secretions ( cx yeast , staph ) RUEL/CKD - probaly due to infectio / acidosis and tachycardia / hypotension - will cont hydration PRN ( ECHO 2018 EF 55% ) 2/2 - renal consulted , NEEDS HD - consider transfer to other facility - as per renal Shock - on lc - IVF as per renal Possible PNA on right - follow sputum cx and cont abx , 10/13 added difflucan given + sputum cx and fever - cx yeast , staph UTI recent admission wit UTI - ecoli and and proteus , was TX with meropenem based on sens - MErrem FINISHED 10/12 DM II - ISS h/o PAF- RVR 10/12 - given cardizem IV , dig - now on cardizem gtt - cards follow - s/p cardioversion April 2019, maintained on Cardizem and Multaq - recived this am -"unable to tolerate oral anticoagulation due to recurrent GI bleed-" as per chart Anemia- stable - h/o GIB in past , no sourse on endoscopy lethargy - CTH - neg 10/08, CO2 at baseline now on bipap - no NEW neuro-defiit , ( h/o CVA - left side wekness) - responds to stimulis now on sedation Hypernatremia - add h20 flashes h/o DVT in February 2019 -unable to tolerate oral anticoagulation due to recurrent GI bleed Lines : right IJ 10/12 , (Central Line Necessity Reviewed) Aguiar: new 10/08 OG: Nutrition: TF start 10/13- at goal Analgesia: Anxiety/ delirium VTE Prophylaxis: lovenox 130 bid - pharm to follow with Cr Stress Ulcer Prophylaxis: pepcid Plans in collaboration with bedside consultants and IM MDs. Discussed with RN to reach out if any questions or concerns A total of 35 minutes of critical care time was devoted to this patient today, required to treat and/or prevent further deterioration of critical care condition ( as above ) . I am remotely monitoring this patient from another state. I am unable to do the bedside exam, and history/physical and pertinent information is taken from other notes in the computer and bedside staff. . Sepsis Event Evaluation Height, Weight, BMI Height: 5'6.00" Weight: 118lbs. 0.5oz. 53.008511ro; 43.70 BMI Method:Estimated Exam Exam Patient acknowledged, consented, and participated in this virtual visit which was conducted using real time audio/video Vital Signs Date Time Temp Pulse Resp B/P (MAP) Pulse Ox O2 Delivery O2 Flow Rate FiO2 10/16/22 08:00 98 33 101/53 (60) 90 Mechanical Ventilator 80.00 10/16/22 07:52 38.0 10/16/22 07:15 88 112/53 10/16/22 07:00 87 10/16/22 07:00 92 34 104/58 (70) 89 Mechanical Ventilator 80.00 10/16/22 06:55 95 31 92 80 10/16/22 06:00 88 29 91 Mechanical Ventilator 75.00 112/53 (72) 10/16/22 05:00 96 29 93 Mechanical Ventilator 75.00 120/54 (76) 10/16/22 04:00 85 29 94 Mechanical Ventilator 75.00 106/50 (68) 10/16/22 04:00 37.2 Mechanical Ventilator 75.00 10/16/22 04:00 93 Mechanical Ventilator 75 10/16/22 03:07 94 119/55 10/16/22 03:00 95 29 94 Mechanical Ventilator 75.00 108/57 (74) 10/16/22 03:00 94 119/55 10/16/22 02:43 94 30 95 75 10/16/22 02:00 90 29 92 Mechanical Ventilator 75.00 113/62 (79) 10/16/22 01:07 95 100/60 10/16/22 01:00 95 10/16/22 01:00 83 28 92 Mechanical Ventilator 75.00 120/73 (89) 10/16/22 00:00 95 Mechanical Ventilator 75 10/16/22 00:00 93 23 94 Mechanical Ventilator 75.00 111/66 (81) 10/16/22 00:00 36.4 Mechanical Ventilator 75.00 10/15/22 23:49 95 100/60 10/15/22 23:00 97 28 96 Mechanical Ventilator 75.00 117/59 (78) 10/15/22 23:00 95 100/60 10/15/22 22:41 95 32 91 75 10/15/22 22:00 96 30 94 Mechanical Ventilator 75.00 107/54 (71) 10/15/22 21:00 104 29 97 Mechanical Ventilator 75.00 110/60 (77) 10/15/22 20:00 102 26 93 Mechanical Ventilator 75.00 101/63 (76) 10/15/22 20:00 92 Mechanical Ventilator 75 10/15/22 19:49 99 103/56 10/15/22 19:42 37.1 10/15/22 19:25 99 32 89 75 10/15/22 19:00 85 30 94 Mechanical Ventilator 75.00 113/61 (78) 10/15/22 19:00 96 10/15/22 18:00 113 26 93 Mechanical Ventilator 75.00 115/64 (81) 10/15/22 17:00 113 22 90 Mechanical Ventilator 75.00 108/58 (75) 10/15/22 16:01 36.6 10/15/22 16:00 91 Mechanical Ventilator 75 10/15/22 16:00 102 28 91 Mechanical Ventilator 75.00 119/68 (85) 10/15/22 15:25 92 27 93 75 10/15/22 15:00 88 24 92 Mechanical Ventilator 75.00 107/53 (71) 10/15/22 14:10 100 109/54 10/15/22 14:00 89 34 91 Mechanical Ventilator 75.00 115/62 (79) 10/15/22 13:00 104 10/15/22 13:00 104 24 90 Mechanical Ventilator 75.00 91/61 (71) 10/15/22 12:00 91 Mechanical Ventilator 75 10/15/22 12:00 39.0 10/15/22 12:00 98 26 91 Mechanical Ventilator 75.00 117/64 (81) 10/15/22 11:00 109 24 91 Mechanical Ventilator 75.00 105/58 (74) 10/15/22 10:42 101 25 90 75 10/15/22 10:00 89 27 91 Mechanical Ventilator 75.00 114/54 (74) 10/15/22 09:59 100 109/59 10/15/22 09:00 112 25 92 Mechanical Ventilator 75.00 117/53 (74) I & O 10/16/22 07:00 Intake Total 3970 ml Output Total 360 ml Balance 3610 ml Height & Weight Height: 5'6.00" Weight: 118lbs. 0.5oz. 53.310208sz; 43.70 BMI Method:Estimated General Appearance: No Apparent Distress, Obese, Other (intubated and sedated) HEENT: PERRL/EOMI, Other (obscrued by BiPAP mask) Respiratory: No Respiratory Distress, Decreased Breath Sounds, Other (intubated and mechanically ventilated) Cardiovascular: Regular Rate, Rhythm, No Murmur Capillary Refill: Less Than 3 Seconds Gastrointestinal: soft, no organomegaly Extremity: Normal Inspection, Pedal Edema Neurologic/Psychiatric: Other (sedated) Skin: Normal Color, Warm/Dry Results Lab Laboratory Tests 10/14/22 16:54 10/15/22 02:49 10/16/22 03:26 Assessment/Plan Assessment/Plan 1 ARASH KAUR MD Oct 16, 2022 08:57
[2022-10-16] MEDS ORDERED: TROUGH ORDER-PHARMACY XX NR ×2 (09:00→14:00)
[2022-10-16] MEDS ORDERED: DOCUSATE SODIUM 10 MG/ML 10 ML UDC (COLACE) PO SCH (09:00)
[2022-10-16] MEDS: MICONAZOLE 2% POWDER (DESENEX AF) 90 GM TOP SCH (09:22)
[2022-10-16 11:00] VITALS: BP 132/59
[2022-10-16] MEDS: fentaNYL DRIP PRE-MIX 250 ML IV SCH (11:00)
[2022-10-16] MEDS ORDERED: GLYCOPYRROLATE 0.2 MG/ML (ROBINUL) 2 ML VIAL IV PRN (13:00)
[2022-10-16] MEDS ORDERED: LORazepam 1 MG (ATIVAN) TAB SL PRN (13:00)
[2022-10-16] MEDS ORDERED: ACETAMINOPHEN 650 MG SUPP (TYLENOL) PR PRN (13:00)
[2022-10-16] MEDS ORDERED: SALIVA SUBSTITUTE 60 ML SPRAY(MOUTHKOTE) MM PRN (13:00)
[2022-10-16] MEDS ORDERED: BISACODYL 10 MG SUPP (DULCOLAX) PR PRN (13:00)
[2022-10-16] MEDS ORDERED: PROMETHAZINE INJ 25 MG/ML (PHENERGAN) AMP IVP PRN (13:00)
[2022-10-16] MEDS ORDERED: ONDANSETRON 4 MG/2 ML (SDV) Z0FRAN IVP PRN (13:00)
[2022-10-16] MEDS ORDERED: ARTIFICAL TEARS 0.4 ML UNIT DOSE (REFRESH PLUS) OU PRN (13:00)
[2022-10-16] MEDS ORDERED: morphine INJ 4 MG/ML 1 ML (VIAL/SYRINGE) IV PRN (13:00)
[2022-10-16] MEDS ORDERED: RT-ALBUTEROL/IPRATROPIUM 3 ML (DUONEB) VIAL INH PRN (13:00)
--- NOTE | 2022-10-16 19:59 | Discharge Summary ---
Discharge Summary Hospital Course Problems/Dx: (1) Acute on chronic respiratory failure Status: Acute Qualifiers: Qualified Codes: J96.21 - Acute and chronic respiratory failure with hypoxia; J96.22 - Acute and chronic respiratory failure with hypercapnia (2) ANKIT (obstructive sleep apnea) Status: Chronic (3) Obesity hypoventilation syndrome Status: Acute (4) Acute heart failure with preserved ejection fraction (HFpEF) Status: Acute (5) CKD (chronic kidney disease) Status: Chronic Qualifiers: Qualified Codes: N18.4 - Chronic kidney disease, stage 4 (severe) (6) Atrial fibrillation with RVR Status: Acute (7) T2DM (type 2 diabetes mellitus) Status: Chronic Qualifiers: (8) Hypernatremia Status: Acute (9) Goals of care, counseling/discussion Status: Acute (10) UTI (urinary tract infection) Status: Acute (11) Morbid obesity Status: Chronic (12) HTN (hypertension) Status: Chronic (13) HLD (hyperlipidemia) Status: Chronic Hospital Course Date of Admission: Oct 08, 2022 at 20:59 Admission Diagnosis : Acute on chronic respiratory failure with hypoxia and hypercapnia Family Physician/Provider: Luis Russell MD Date of Discharge: 10/16/22 Discharge Diagnosis: Acute on chronic respiratory failure with hypoxia and hypercapnia, obesity hypoventilation syndrome, MRSA pneumonia, RUEL on CKD Hospital Course: Maren Harris was a 72 year old female with PMH HTN, T2DM, HLD, ANKIT, morbid obesity, who was admitted with acute on chronic respiratory failure with hypoxia and hypercapnia. She was admitted to the ICU on BiPAP. TeleICU was consulted. She was currently receiving outpatient IV antibiotics for an ESBL UTI. She was continued on Merrem. She developed new onset atrial fibrillation with RVR. Cardiology was consulted. She was started on IV Cardizem and Lovenox. Her respiratory status worsened and she required endotracheal intubation. She then developed an acute kidney injury on chronic kidney disease. Nephrology was consulted and assisted with her care. Her renal failure continued to worsen. Her ventiator requirements were at maximal oxygen support. Palliative care was consulted. Her family elected to pursue comfort measures only status. She was compassionately extubated and shortly after with family at her bedside. Labs and Pending Lab Test: Laboratory Tests 10/16/22 00:19: Glucometer 365H 10/16/22 03:26: White Blood Count 10.2, Red Blood Count 3.47L, Hemoglobin 9.4L, Hematocrit 31L, Mean Corpuscular Volume 91, Mean Corpuscular Hemoglobin 27, Mean Corpuscular Hemoglobin Concent 30L, Red Cell Distribution Width 14.9H, Platelet Count 154, Mean Platelet Volume 12.9H, Immature Granulocyte % (Auto) 2, Neutrophils (%) (Auto) 80H, Lymphocytes (%) (Auto) 11L, Monocytes (%) (Auto) 3, Eosinophils (%) (Auto) 4, Basophils (%) (Auto) 0, Neutrophils # (Auto) 8.1H, Lymphocytes # (Auto) 1.1, Monocytes # (Auto) 0.4, Eosinophils # (Auto) 0.4H, Basophils # (Auto) 0.0, Immature Granulocyte # (Auto) 0.2H, Percent Immature Platelet Fraction 8.1H, Sodium Level 151H, Potassium Level 3.9, Chloride Level 120H, Carbon Dioxide Level 18L, Anion Gap 13, Blood Urea Nitrogen 83H, Creatinine 4.31#H, Estimat Glomerular Filtration Rate 10, BUN/Creatinine Ratio 19, Glucose Level 368H, Calcium Level 9.2, Corrected Calcium 10.0, Phosphorus Level 2.9, Magnesium Level 2.4, Total Bilirubin 0.5, Aspartate Amino Transf (AST/SGOT) 23, Alanine Aminotransferase (ALT/SGPT) 12, Alkaline Phosphatase 76, Total Protein 6.3L, Albumin 3.0L, Smear Scan YES 10/16/22 03:29: Blood Gas Puncture Site ARTLINE, Blood Gas Patient Temperature 36.4, Arterial Blood pH 7.36L, Arterial Blood Partial Pressure CO2 37, Arterial Blood Partial Pressure O2 53L, Arterial Blood HCO3 20L, Arterial Blood Total CO2 21.5, Arterial Blood Oxygen Saturation 88L, Arterial Blood Base Excess -4.4L, Jai Test YES-POS, Blood Gas Ventilator Setting YES, Blood Gas Inspired Oxygen 75% 10/16/22 06:02: Glucometer 339H Microbiology 10/12/22 Gram Stain - Final, Complete 10/12/22 Sputum Culture - Final, Complete YEAST Staphylococcus aureus Usual upper respiratory justus 10/08/22 Blood Culture - Final, Complete No growth 10/08/22 Urine Culture - Final, Complete NO GROWTH Home Meds Active Reported Furosemide 20 Mg Tablet 20 Mg PO 1500 STARTED ON 10-08-2022 AND ONLY 1 DOSE HAD BEEN GIVEN Ertapenem (Ertapenem Sodium) 1 Gram Vial 1 Gm IV DAILY STARTED 10-03-2022 #7/ DAY SUPPLY- LAST DOSE SCHEDULED FOR 10-09-2022 Nystatin 100,000 Unit/Gram Cream..g. 1 Applic TOP DAILY APPLY UNDERNEATH BREASTS AND TO GROIN Diltiazem 24Hr ER (Diltiazem HCl) 240 Mg Cap.er.24h 240 Mg PO DAILY Neurontin (Gabapentin) 300 Mg Capsule 300 Mg PO 0800,1730 Multaq (Dronedarone HCl) 400 Mg Tablet 400 Mg PO 0800,1730 Urecholine (Bethanechol Chloride) 10 Mg Tablet 10 Mg PO BID Lidocaine 5% Patch (Lidocaine) 5 % Adh..patch 1 Patch TD DAILY APPLY TO RIGHT UPPER THIGH- APPLY IN THE AM AND REMOVE WITHIN 12 HOURS OF APPLICATION Lactobacillus Tablet (L. Acidophilus/L.bulgaricus) 1 Million Cell Tablet 1 Each PO DAILY Guaifenesin 100 Mg/5 Ml Liquid 10 Ml PO Q4H PRN Krill Oil 500 mg Softgel (Krill/Om-3/Dha/Epa/Phospho/Ast) 500MG-86MG Capsule 2 Each PO DAILY Milk of Magnesia (Magnesium Hydroxide) 2,400 Mg/10 Ml Oral.susp 10 Ml PO DAILY PRN Farxiga (Dapagliflozin Propanediol) 10 Mg Tablet 10 Mg PO DAILY Ocusoft Lid Scrub Plus (Eyelid Cleanser Combination #3) 1 Each Med..pad 1 Each OU UD PRN Trulicity (Dulaglutide) 0.75 Mg/0.5 Ml Pen.injctr 7.5 Mg SQ WEEK Artificial Tears Drops (Dextran 70/Hypromellose/Pf) 0.1 %-0.3 % Droperette 1 Each OU UD PRN Zinc (Zinc Amino Acid Chelate) 50 Mg Tablet 50 Mg PO DAILY Calcitriol 0.5 Mcg Capsule 0.5 Mcg PO DAILY Calcium Acetate 667 Mg Tablet 667 Mg PO DAILY Spiriva Respimat 2.5MCG/ACTUATION (Tiotropium [place]) 4 Gm Mist.inhal 2 Puff IH DAILY Levemir Flextouch (Insulin Detemir) 100 Unit/Ml (3 Ml) Insuln.pen 36 Unit SQ BID Iprat-Albut 0.5-3(2.5) mg/3 ml (Ipratropium/Albuterol Sulfate) 3 Ml Ampul.neb 3 Ml IH Q6H PRN Flonase Allergy Relief (Fluticasone Propionate) 9.9 Ml [place].susp 2 [place] NSEACH DAILY Dulcolax (Bisacodyl) 10 Mg Supp.rect 10 Mg RC DAILY PRN Vitamin D3 (Cholecalciferol (Vitamin D3)) 125 Mcg Capsule 125 Mcg PO DAILY Aspirin EC (Aspirin) 81 Mg Tablet.dr 81 Mg PO BID Hydroxyzine Pamoate 25 Mg Capsule 25 Mg PO HS Sertraline HCl 50 Mg Tablet 50 Mg PO HS Pepcid (Famotidine) 20 Mg Tablet 20 Mg PO DAILY Novolog (Insulin Aspart) 100 Unit/1 Ml Susp 30 Unit SQ TID Miconazole Nitrate 10 Gm Powder 1 Applic TOP BID APPLY TO GROIN AND UNDER BREASTS Colace (Docusate Sodium) 100 Mg Capsule 100 Mg PO BID HOLD FOR LOOSE STOOLS Iron (Ferrous Sulfate) 325 Mg Tablet 325 Mg PO DAILY Glucosamine Chondroitin Tab (Gluc Angulo/Chondro Angulo A/Vit C/Mn) 1 Each Tablet 2 Tab PO DAILY Melatonin 3 Mg Tablet 3 Mg PO HS Cranberry (Cranberry Extract) 500 Mg Tablet 1,000 Mg PO DAILY Acetaminophen 500 Mg Tablet 1,000 Mg PO Q6H PRN Metoprolol Succinate 100 Mg Tab.er.24h 100 Mg PO DAILY HOLD FOR SYSTOLIC BP <100 AND HEART RATE <60 Assessment/Pt Instructions Patient Consultations TeleICU, Cardiology, Nephrology Discharge Physical Examination Vital Signs Vital Signs Date Time Temp Pulse Resp B/P (MAP) Pulse Ox O2 Delivery O2 Flow Rate FiO2 10/16/22 16:00 89 20 142/67 (92) 92 Mechanical Ventilator 80.00 10/16/22 07:52 38.0 10/16/22 07:48 85 Allergies: Coded Allergies: sulfamethoxazole (Verified Allergy, Unknown, 10/13/17) trimethoprim (Verified Allergy, Unknown, 10/13/17) Copy Copies To 1: LUIS RUSSELL MD Discharge Summary Date of Admission Oct 08, 2022 at 20:59 Date of Discharge Oct 16, 2022 at 13:10 Discharge Date: Oct 16, 2022 Discharge Time: 13:10 Admission Diagnosis Acute Respiratory Failure Consults/Procedures Consulations TeleICU, Cardiology, Nephrology Comfort Measures/ End of Life Care: Comfort Measures Advance Care discuss with: family member (s) Plan: initiate discussion, clarifying prognosis, identified end-of-life goals, developed treatment plan Cardiopulmonary Arrest: Cardiorespiratory Arrest Date of : Oct 16, 2022 Time of : 13:10 Discharge Diagnosis Acute on Chronic Respiratory Failure ANKIT Presumed obesity hypoventilation syndrome Acute HFpEF Endotracheally intubated Poor prognosis MRSA pneumonia AFib with RVR ESBL UTI RUEL on CKD Hyponatremia T2DM HTN HLD pAF Morbid Obesity h/o DVT (1) Acute on chronic respiratory failure Status: Acute Qualifiers: Qualified Codes: J96.21 - Acute and chronic respiratory failure with hypoxia; J96.22 - Acute and chronic respiratory failure with hypercapnia (2) ANKIT (obstructive sleep apnea) Status: Chronic (3) Obesity hypoventilation syndrome Status: Acute (4) Acute heart failure with preserved ejection fraction (HFpEF) Status: Acute (5) CKD (chronic kidney disease) Status: Chronic Qualifiers: Qualified Codes: N18.4 - Chronic kidney disease, stage 4 (severe) (6) Atrial fibrillation with RVR Status: Acute (7) T2DM (type 2 diabetes mellitus) Status: Chronic Qualifiers: (8) Hypernatremia Status: Acute (9) Goals of care, counseling/discussion Status: Acute (10) UTI (urinary tract infection) Status: Acute (11) Morbid obesity Status: Chronic (12) HTN (hypertension) Status: Chronic (13) HLD (hyperlipidemia) Status: Chronic GRIS COOK MD Oct 16, 2022 19:58
== END 2022-10-16 13:10 | disposition expired | DRG 207 ==
LOC: EDUNIT# 19:01 → ER 19:03 → CSD 20:59 → ICU 10-09 09:07
PROVIDERS: ADMIT Internal Medicine; ATTEND Internal Medicine
PROC: 5A09457 Assistance with Respiratory Ventilation, 24-96 Consecutive Hours, Continuous Positive Airway Pressure (ICD-10-PCS; 2022-10-08)
PROC: 5A1955Z Respiratory Ventilation, Greater than 96 Consecutive Hours (ICD-10-PCS; principal; 2022-10-12)
PROC: 0BH17EZ Insertion of Endotracheal Airway into Trachea, Via Natural or Artificial Opening (ICD-10-PCS; 2022-10-12)
PROC: 02HV33Z Insertion of Infusion Device into Superior Vena Cava, Percutaneous Approach (ICD-10-PCS; 2022-10-12)
PROC: 03HY32Z Insertion of Monitoring Device into Upper Artery, Percutaneous Approach (ICD-10-PCS; 2022-10-12)
DX: J96.21 Acute and chronic respiratory failure with hypoxia (principal); I50.31 Acute diastolic (congestive) heart failure; J15.212 Pneumonia due to Methicillin resistant Staphylococcus aureus; E66.2 Morbid (severe) obesity with alveolar hypoventilation; N18.4 Chronic kidney disease, stage 4 (severe); E87.0 Hyperosmolality and hypernatremia; N39.0 Urinary tract infection, site not specified; I13.0 Hypertensive heart and chronic kidney disease with heart failure and stage 1 through stage 4 chronic kidney disease, or unspecified chronic kidney disease; N17.9 Acute kidney failure, unspecified; J44.0 Chronic obstructive pulmonary disease with (acute) lower respiratory infection; G93.40 Encephalopathy, unspecified; Z68.41 Body mass index [BMI] 40.0-44.9, adult; R57.9 Shock, unspecified; J96.22 Acute and chronic respiratory failure with hypercapnia; I48.91 Unspecified atrial fibrillation; E11.22 Type 2 diabetes mellitus with diabetic chronic kidney disease; Z51.5 Encounter for palliative care; E78.5 Hyperlipidemia, unspecified; I48.0 Paroxysmal atrial fibrillation; Z86.718 Personal history of other venous thrombosis and embolism; Z20.822 Contact with and (suspected) exposure to COVID-19; Z66 Do not resuscitate; Z79.82 Long term (current) use of aspirin; Z79.4 Long term (current) use of insulin; Z79.899 Other long term (current) drug therapy; I25.10 Atherosclerotic heart disease of native coronary artery without angina pectoris; E78.00 Pure hypercholesterolemia, unspecified; K21.9 Gastro-esophageal reflux disease without esophagitis; M19.90 Unspecified osteoarthritis, unspecified site; F41.9 Anxiety disorder, unspecified; F32.A Depression, unspecified; Z86.73 Personal history of transient ischemic attack (TIA), and cerebral infarction without residual deficits; Z74.01 Bed confinement status; B37.2 Candidiasis of skin and nail; I89.0 Lymphedema, not elsewhere classified; R32 Unspecified urinary incontinence; B96.20 Unspecified Escherichia coli [E. coli] as the cause of diseases classified elsewhere; Z87.891 Personal history of nicotine dependence; D64.9 Anemia, unspecified; E11.21 Type 2 diabetes mellitus with diabetic nephropathy; Z79.01 Long term (current) use of anticoagulants; I87.2 Venous insufficiency (chronic) (peripheral)
CPT/HCPCS: 36415; 36600; 51702; 70450; 71045; 80048; 80053; 80202; 81000; 82550; 82553; 82805; 82947; 83605; 83735; 83874; 83880; 84100; 84145; 84484; 85007; 85025; 85027; 85379; 85610; 85652; 85730; 86141; 87040; 87070; 87077; 87088; 87186; 87205; 87636; 93005; 93041; 94002; 94003; 94640; 94660; 94799; 96365; 96375